=== PATIENT | female | born 1955 | race Caucasian/White ===

== ENCOUNTER 2020-03-08 22:43 | Inpatient (IN) | payer MEDICARE, OTHER ==
--- NOTE | 2020-03-08 23:05 | ED ---
SOB HPI - General Chief Complaint: Shortness of Breath Stated Complaint: ALBINO Time Seen by Provider: 03/08/20 22:46 Source: patient, EMS Mode of arrival: EMS Limitations: no limitations - History of Present Illness Initial Comments: This patient is a 65-year-old woman who presents to be evaluated for low hemoglobin. Patient states that her labs had been checked and her hemoglobin reportedly was less than 7. She received a call and was told to go to the hospital to have a transfusion. The patient states that in attempting to get up and get to the hospital she was so dyspneic that she required ambulance. The patient denies fever or chills. No chest pain. Denies significant cough. She does have increased leg edema from her baseline she states. Recent history is notable for having been at [facility] proximally 2 weeks ago and then she was noted to have GI bleeding and was transferred to [facility] for cauterization. That occurred approximately 8 days ago. The patient denies having any bright red blood per rectum. She has had some dark stool. MD Complaint: shortness of breath -: hour(s) Severity scale (1-10): 0 Consistency: constant Improves With: nothing Worsens With: lying flat, exertion Known History Of: COPD, congestive heart failure Treatments Prior to Arrival: oxygen, NIPPV - Related Data Home Medications Medication Instructions Recorded Confirmed Albuterol Inhaler [Ventolin Hfa 1 - 2 puff INHALATION RT-QID PRN 03/09/20 03/09/20 Inhaler] Albuterol Nebulized [Ventolin 2.5 mg INHALATION RT-QID PRN 03/09/20 03/09/20 Nebulized] Aspirin [[place] Aspirin EC] 81 mg PO DAILY 03/09/20 03/09/20 Atorvastatin [Lipitor] 40 mg PO DAILY 03/09/20 03/09/20 Budesonide-Formot 160-4.5 Mcg 2 puff INHALATION BID 03/09/20 03/09/20 [Symbicort 160-4.5 Mcg Inhaler] Bumetanide 2 mg PO BID 03/09/20 03/09/20 FLUoxetine HCL 20 mg PO DAILY 03/09/20 03/09/20 Glimepiride [Amaryl] 2 mg PO DAILY 03/09/20 03/09/20 Insulin Glargine,Hum.rec.anlog 50 units SQ HS 03/09/20 03/09/20 [[place] Solostar] Isosorbide Mononitrate ER [Imdur] 30 mg PO DAILY 03/09/20 03/09/20 Levothyroxine Sodium 125 mcg PO DAILY 03/09/20 03/09/20 Metoprolol Tartrate [Lopressor] 50 mg PO BID 03/09/20 03/09/20 Montelukast Sodium [Singulair] 10 mg PO HS 03/09/20 03/09/20 Nitroglycerin Sl Tabs [Nitrostat] 0.4 mg SUBLINGUAL Q5M PRN 03/09/20 03/09/20 Pantoprazole [Protonix] 40 mg PO DAILY 03/09/20 03/09/20 Potassium Chloride ER [K-Dur 10] 10 meq PO BID 03/09/20 03/09/20 Pregabalin [Lyrica] 200 mg PO BID 03/09/20 03/09/20 amLODIPine [Norvasc] 10 mg PO DAILY 03/09/20 03/09/20 methocarbamoL [Robaxin] 500 mg PO BID 03/09/20 03/09/20 rOPINIRole HCL [Requip] 2 mg PO BID 03/09/20 03/09/20 sitaGLIPtin [Januvia] 100 mg PO DAILY 03/09/20 03/09/20 Allergies Allergy/AdvReac Type Severity Reaction Status Date / Time cisatracurium [From Nimbex] Allergy Rash/Hives Verified 03/09/20 08:30 Review of Systems ROS Statement: Those systems with pertinent positive or pertinent negative responses have been documented in the HPI. ROS Other: All systems not noted in ROS Statement are negative. Constitutional: Reports: weakness (Generalized). Denies: fever, chills Respiratory: Reports: dyspnea. Denies: cough, wheezes, hemoptysis Cardiovascular: Reports: dyspnea on exertion. Denies: chest pain, palpitations, syncope Gastrointestinal: Denies: abdominal pain, nausea, vomiting, diarrhea Genitourinary: Denies: urgency, dysuria Musculoskeletal: Denies: back pain Skin: Denies: rash Neurological: Denies: headache, weakness, numbness Hematological/Lymphatic: Denies: easy bleeding Past Medical History Past Medical History: Heart Failure, GI Bleed, Respiratory Disorder History of Any Multi-Drug Resistant Organisms: None Reported Past Psychological History: No Psychological Hx Reported Smoking Status: Former smoker Past Alcohol Use History: None Reported Past Drug Use History: None Reported General Exam Limitations: no limitations General appearance: alert, in distress (Mild respiratory distress) Head exam: Present: atraumatic, normocephalic Eye exam: Present: normal appearance. Absent: scleral icterus, conjunctival injection ENT exam: Present: normal oropharynx Neck exam: Present: normal inspection, full ROM Respiratory exam: Present: respiratory distress (Mild tachypnea), rales (Bilateral lower lung phelps). Absent: wheezes, rhonchi, stridor, accessory muscle use Cardiovascular Exam: Present: regular rate, normal rhythm, systolic murmur (. There are 3/6 systolic ejection murmur.). Absent: diastolic murmur, rubs, gallop GI/Abdominal exam: Present: soft. Absent: distended, tenderness, guarding, rebound, rigid, mass Extremities exam: Present: normal capillary refill, pedal edema. Absent: calf tenderness Back exam: Present: normal inspection. Absent: CVA tenderness (R), CVA tenderness (L) Neurological exam: Present: alert Psychiatric exam: Present: normal affect Skin exam: Present: warm, dry, intact, normal color, pallor. Absent: cyanosis, diaphoretic, petechiae Course Vital Signs 03/08/20 03/08/20 03/09/20 22:44 22:56 00:38 Temperature 98.1 F 98.3 F Pulse Rate 87 75 Respiratory 26 H 26 H 20 Rate Blood Pressure 130/53 129/56 O2 Sat by Pulse 98 98 Oximetry 03/09/20 03/09/20 03/09/20 00:48 01:04 01:18 Temperature 98.0 F 98.0 F Pulse Rate 74 74 75 Respiratory 19 18 18 Rate Blood Pressure 126/58 115/54 124/58 O2 Sat by Pulse 99 97 98 Oximetry Medical Decision Making - Medical Decision Making This patient is 65-year-old woman sent in to have transfusion. There is also degree of congestive heart failure. Patient started on diuresis and then to have transfusion. - Lab Data Result diagrams: 03/09/20 13:12 03/09/20 07:06 Lab Results 03/08/20 03/08/20 03/08/20 Range/Units 23:07 23:07 23:07 WBC 12.1 H (3.8-10.6) k/uL RBC 2.29 L (3.80-5.40) m/uL Hgb 6.1 L* (11.4-16.0) gm/dL Hct 21.0 L (34.0-46.0) % MCV 91.8 (80.0-100.0) fL MCH 26.7 (25.0-35.0) pg MCHC 29.1 L (31.0-37.0) g/dL RDW 19.3 H (11.5-15.5) % Plt Count 388 (150-450) k/uL Neutrophils % 75 % Lymphocytes % 12 % Monocytes % 8 % Eosinophils % 2 % Basophils % 1 % Neutrophils # 9.0 H (1.3-7.7) k/uL Lymphocytes # 1.4 (1.0-4.8) k/uL Monocytes # 0.9 (0-1.0) k/uL Eosinophils # 0.2 (0-0.7) k/uL Basophils # 0.1 (0-0.2) k/uL Hypochromasia Marked Poikilocytosis Marked Anisocytosis Slight PT 9.6 (9.0-12.0) sec INR 0.9 (<1.2) APTT 22.3 (22.0-30.0) sec Sodium 137 (137-145) mmol/L Potassium 4.6 (3.5-5.1) mmol/L Chloride 96 L (98-107) mmol/L Carbon Dioxide 35 H (22-30) mmol/L Anion Gap 6 mmol/L BUN 25 H (7-17) mg/dL Creatinine 1.10 H (0.52-1.04) mg/dL Est GFR (CKD-EPI)AfAm 61 (>60 ml/min/1.73 sqM) Est GFR (CKD-EPI)NonAf 53 (>60 ml/min/1.73 sqM) Glucose 221 H (74-99) mg/dL Plasma Lactic Acid Itz (0.7-2.0) mmol/L Calcium 8.7 (8.4-10.2) mg/dL Magnesium 2.1 (1.6-2.3) mg/dL Total Bilirubin 0.5 (0.2-1.3) mg/dL AST 19 (14-36) U/L ALT 15 (4-34) U/L Alkaline Phosphatase 111 (38-126) U/L Troponin I (0.000-0.034) ng/mL NT-Pro-B Natriuret Pep pg/mL Total Protein 6.0 L (6.3-8.2) g/dL Albumin 3.3 L (3.5-5.0) g/dL Blood Type Blood Type Confirm Blood Type Recheck Bld Type Recheck Status Antibody Screen Crossmatch Spec Expiration Date 03/08/20 03/08/20 03/08/20 Range/Units 23:07 23:07 23:07 WBC (3.8-10.6) k/uL RBC (3.80-5.40) m/uL Hgb (11.4-16.0) gm/dL Hct (34.0-46.0) % MCV (80.0-100.0) fL MCH (25.0-35.0) pg MCHC (31.0-37.0) g/dL RDW (11.5-15.5) % Plt Count (150-450) k/uL Neutrophils % % Lymphocytes % % Monocytes % % Eosinophils % % Basophils % % Neutrophils # (1.3-7.7) k/uL Lymphocytes # (1.0-4.8) k/uL Monocytes # (0-1.0) k/uL Eosinophils # (0-0.7) k/uL Basophils # (0-0.2) k/uL Hypochromasia Poikilocytosis Anisocytosis PT (9.0-12.0) sec INR (<1.2) APTT (22.0-30.0) sec Sodium (137-145) mmol/L Potassium (3.5-5.1) mmol/L Chloride (98-107) mmol/L Carbon Dioxide (22-30) mmol/L Anion Gap mmol/L BUN (7-17) mg/dL Creatinine (0.52-1.04) mg/dL Est GFR (CKD-EPI)AfAm (>60 ml/min/1.73 sqM) Est GFR (CKD-EPI)NonAf (>60 ml/min/1.73 sqM) Glucose (74-99) mg/dL Plasma Lactic Acid Itz 1.7 (0.7-2.0) mmol/L Calcium (8.4-10.2) mg/dL Magnesium (1.6-2.3) mg/dL Total Bilirubin (0.2-1.3) mg/dL AST (14-36) U/L ALT (4-34) U/L Alkaline Phosphatase (38-126) U/L Troponin I <0.012 (0.000-0.034) ng/mL NT-Pro-B Natriuret Pep 1590 pg/mL Total Protein (6.3-8.2) g/dL Albumin (3.5-5.0) g/dL Blood Type Blood Type Confirm Blood Type Recheck Bld Type Recheck Status Antibody Screen Crossmatch Spec Expiration Date 03/08/20 03/08/20 Range/Units 23:07 23:18 WBC (3.8-10.6) k/uL RBC (3.80-5.40) m/uL Hgb (11.4-16.0) gm/dL Hct (34.0-46.0) % MCV (80.0-100.0) fL MCH (25.0-35.0) pg MCHC (31.0-37.0) g/dL RDW (11.5-15.5) % Plt Count (150-450) k/uL Neutrophils % % Lymphocytes % % Monocytes % % Eosinophils % % Basophils % % Neutrophils # (1.3-7.7) k/uL Lymphocytes # (1.0-4.8) k/uL Monocytes # (0-1.0) k/uL Eosinophils # (0-0.7) k/uL Basophils # (0-0.2) k/uL Hypochromasia Poikilocytosis Anisocytosis PT (9.0-12.0) sec INR (<1.2) APTT (22.0-30.0) sec Sodium (137-145) mmol/L Potassium (3.5-5.1) mmol/L Chloride (98-107) mmol/L Carbon Dioxide (22-30) mmol/L Anion Gap mmol/L BUN (7-17) mg/dL Creatinine (0.52-1.04) mg/dL Est GFR (CKD-EPI)AfAm (>60 ml/min/1.73 sqM) Est GFR (CKD-EPI)NonAf (>60 ml/min/1.73 sqM) Glucose (74-99) mg/dL Plasma Lactic Acid Itz (0.7-2.0) mmol/L Calcium (8.4-10.2) mg/dL Magnesium (1.6-2.3) mg/dL Total Bilirubin (0.2-1.3) mg/dL AST (14-36) U/L ALT (4-34) U/L Alkaline Phosphatase (38-126) U/L Troponin I (0.000-0.034) ng/mL NT-Pro-B Natriuret Pep pg/mL Total Protein (6.3-8.2) g/dL Albumin (3.5-5.0) g/dL Blood Type A Positive Blood Type Confirm A Positive Blood Type Recheck No Previous Record Bld Type Recheck Status CABO Indicated Antibody Screen NEGATIVE Crossmatch See Detail Spec Expiration Date 03/11/2020 4927 - EKG Data -: EKG Interpreted by Me EKG shows normal: sinus rhythm, axis (Normal), intervals (Normal), QRS complexes (Normal) Rate: normal (Rate 81 bpm) Interpretation: nonspecific ST-T wave changes Critical Care Time Critical Care Time: Yes (35 minutes) Disposition Clinical Impression: Congestive heart failure, Anemia Disposition: ADMITTED IP TO THIS [facility] Condition: Fair
[2020-03-08 23:32] LABS: Albumin 3.3 g/dL (3.5-5.0); Calcium 8.7 mg/dL (8.4-10.2); Magnesium 2.1 mg/dL (1.6-2.3); Potassium 4.6 mmol/L (3.5-5.1); Total Bilirubin 0.5 mg/dL (0.2-1.3)
[2020-03-08 23:33] LABS: Anisocytosis Slight; Basophils # (A) 0.1 k/uL (0-0.2); Basophils % (A) 1 %; Eosinophils # (A) 0.2 k/uL (0-0.7); Eosinophils % (A) 2 %; Hypochromasia Marked; Lymphocytes # (A) 1.4 k/uL (1.0-4.8); Lymphocytes % (A) 12 %; MCH 26.7 pg (25.0-35.0); MCHC 29.1 g/dL (31.0-37.0); MCV 91.8 fL (80.0-100.0); Mean Platelet Volume 8.4; Monocytes # (A) 0.9 k/uL (0-1.0); Monocytes % (A) 8 %; Neutrophils % (A) 75 %; Platelet Count 388 k/uL (150-450); Poikilocytosis Marked; RBC 2.29 m/uL (3.80-5.40); RDW 19.3 % (11.5-15.5); WBC 12.1 k/uL (3.8-10.6)
[2020-03-08 23:34] LABS: HGB 6.1 gm/dL (11.4-16.0)
[2020-03-08 23:39] LABS: INR 0.9 (<1.2); Partial Thromboplastin Time 22.3 sec (22.0-30.0); Prothrombin Time 9.6 sec (9.0-12.0)
--- NOTE | 2020-03-09 00:10 | XR ---
EXAMINATION TYPE: XR chest 1V portable DATE OF EXAM: 03/08/2020 COMPARISON: NONE HISTORY: Short of breath TECHNIQUE: Single view FINDINGS: There is pulmonary vascular congestion. Heart is enlarged. There are chest leads. There is no definite pleural effusion. IMPRESSION: There is evidence of congestive heart failure. Atheromatous aorta.
[2020-03-09] MEDS ORDERED: FUROSEMIDE 10 MG/ML 4 ML VIAL IV STA ×2 (00:12→15:46)
[2020-03-09] MEDS ORDERED: NALOXONE 0.4 MG/ML 1 ML VIAL IV PRN (00:22)
[2020-03-09] MEDS: SODIUM CHLORIDE 0.9% 1,000 ML IV SCH (05:23)
[2020-03-09 07:02] LABS: Glucose,Whole Blood 198 mg/dL (75-99)
[2020-03-09 07:52] LABS: Anisocytosis Slight; Basophils # (A) 0.1 k/uL (0-0.2); Basophils % (A) 1 %; Eosinophils # (A) 0.3 k/uL (0-0.7); Eosinophils % (A) 3 %; HCT 23.4 % (34.0-46.0); Hypochromasia Marked; Lymphocytes # (A) 1.5 k/uL (1.0-4.8); Lymphocytes % (A) 14 %; MCH 26.7 pg (25.0-35.0); MCHC 28.6 g/dL (31.0-37.0); MCV 93.6 fL (80.0-100.0); Mean Platelet Volume 7.3; Monocytes % (A) 9 %; Neutrophils # (A) 7.6 k/uL (1.3-7.7); Neutrophils % (A) 71 %; Platelet Count 347 k/uL (150-450); Poikilocytosis Marked; RDW 17.8 % (11.5-15.5); WBC 10.8 k/uL (3.8-10.6)
[2020-03-09 08:01] LABS: Albumin 3.2 g/dL (3.5-5.0); Calcium 8.4 mg/dL (8.4-10.2); Potassium 4.2 mmol/L (3.5-5.1); Total Bilirubin 0.5 mg/dL (0.2-1.3); Total Protein 5.8 g/dL (6.3-8.2)
[2020-03-09 08:03] LABS: HGB 6.7 gm/dL (11.4-16.0)
[2020-03-09] MEDS ORDERED: NITROGLYCERIN SL TABS 0.4 MG TAB SUBLINGUAL PRN (09:14)
[2020-03-09] MEDS: ISOSORBIDE MONONITRATE ER 30 MG TAB.ER.24H PO SCH (10:21)
[2020-03-09] MEDS: amLODIPine 10 MG TAB PO SCH (10:21)
[2020-03-09] MEDS: PANTOPRAZOLE 40 MG/10 ML VIAL IVP SCH ×2 (10:54→20:58)
[2020-03-09 11:27] LABS: Glucose,Whole Blood 283 mg/dL (75-99)
--- NOTE | 2020-03-09 11:33 | P.HPIM ---
History of Present Illness H&P Date: 03/09/20 HISTORY OF PRESENT ILLNESS This is a 65-year-old female patient of Dr. Deras with past medical history of diabetes mellitus type 2, diabetic neuropathy, COPD, hypertension, obstructive sleep apnea, hypothyroidism. Patient has had ongoing problems with GI bleed and was seen by Dr. Nieves GI physician and [facility]. She had a capsule endoscopy at the office and found ulcers. Patient underwent an EGD and could not get to all of the ulcers and patient was then transferred to [place] for repeat EGD. This will could not be completed at [place] and patient was subsequen tly transferred [facility] and she did have some cauterization done and was discharged home. Unfortunately, patient is continued to have black stools which is actually increased in frequency. She also has had increased shortness of breath, orthopnea and cough. No fever or chills, no chest pain. She utilized BiPAP last night which seemed to help her shortness of breath. Patient presented to [facility] emergency center as she was sent in because her hemoglobin was less than 7 as an outpatient and she required transfusion. She was afebrile, heart rate 87, blood pressure 130/54 pulse ox 98% on room air. Initial hemoglobin 6.1 and patient has been transfused 1 unit of packed RBCs. Repeat hemoglobin this morning is 6.7 and a second unit of packed RBCs has been ordered. Other lab work revealed WBC of 12.1. CO2 35, BUN 25 and creatinine 1.1, blood sugar 221. She has unknown hemoglobin A1c of 5.2 in the outpatient setting. Lactic acid 1.7, troponin negative. ProBNP 1590. Chest x-ray revealed evidence of heart failure. Atheromatosis aorta. EKG sinus rhythm. REVIEW OF SYSTEMS Constitutional: No fever, no chills, no night sweats. No weight change. Reports weakness, Reports fatigue. No daytime sleepiness. EENT: No headache. No blurred vision or double vision, no loss of vision. No loss of Hearing, no ringing in the ears, no dizziness. No nasal drainage or congestion. No epistaxis. No sore throat. Lungs: Reports shortness of breath, no cough, no sputum production. No wheezing. Cardiovascular: No chest pain, reports lower extremity edema. No palpitations. No paroxysmal nocturnal dyspnea. No orthopnea. No lightheadedness or dizziness. No syncopal episodes. Abdominal: No abdominal pain. No nausea, vomiting. No diarrhea. No constipation. Reports bloody or tarry stools. Reports loss of appetite. Genitourinary: No dysuria, increased frequency, urgency. No urinary retention. Musculoskeletal: No myalgias. Reports muscle weakness, no gait dysfunction, no frequent falls. No back pain. No neck pain. Integumentary: No wounds, no lesions. No rash or pruritus. No unusual bruising. No change in hair or nails. Neurologic: No aphasia. No facial droop. No change in mentation. No head injury. No headache. No paralysis. No paresthesia. Psychiatric: No depression. No anxiety. No mood swings. Endocrine: No abnormal blood sugars. No weight change. No excessive sweating or thirst. No cold intolerance. SOCIAL HISTORY Patient was a smoker one pack per day for 30-40 years and quit 6 years ago. She did resume smoking 2 years ago and quit 2-1/2 months ago. No alcohol, marijuana or illicit drug use. Patient does not have oxygen at home. Patient does have a BiPAP at home for obstructive sleep apnea and also nebulizer FAMILY HISTORY Mother at age 60 from kidney failure. Father at age 84 from leukemia. Patient has 4 sisters and one has passed from coronary artery disease. Other sisters and 2 brothers have no major medical problems. Patient has 3 children with no major medical problems. PHYSICAL EXAMINATION Gen: This is a 65-year-old female. She is resting and recliner and appears to be comfortable at rest. HEENT: Head is atraumatic, normocephalic. Pupils equal, round. Sclerae is an icteric. Conjunctiva pale. NECK: Supple. No JVD. No lymphadenopathy. No thyromegaly. LUNGS: Clear to auscultation. No wheezes or rhonchi. No intercostal retractions. HEART: Regular rate and rhythm. Systolic murmur. ABDOMEN: Soft. Bowel sounds are present. No masses. No tenderness. EXTREMITIES: 1+ pedal edema. No calf tenderness. Dorsalis pedis +2 bilaterally. NEUROLOGICAL: Patient is awake, alert and oriented x3. Cranial nerves 2 through 12 are grossly intact. ASSESSMENT AND PLAN 1. Acute on chronic GI bleed with acute blood loss anemia. Patient has been t ransfused 1 unit of packed RBCs last evening and a second unit will be added for today. Consult with GI. Protonix 40 mg IV push twice daily added. 2. Diabetes mellitus type 2 with diabetic neuropathy. Patient will be started on half Levemir 25 units at bedtime with anticipation of possible procedure tomorrow. Glimepiride 2 mg daily on hold. Continue NovoLog scale, Tradjenta. 3. Diabetic neuropathy. Continue Lyrica. 4. COPD. Continue Symbicort, albuterol as needed, Singulair 10 mg at bedtime. 5. Hypertension. Continue Norvasc 10 mg daily, Bumex 2 mg twice daily, Lopressor 50 g twice daily. 6. Possible chronic diastolic heart failure. Continue Lopressor, Bumex. 7. Hyperlipidemia. Continue Lipitor 40 mg daily. 8. Obstructive sleep apnea. Continue BiPAP at night. 9. Restless leg syndrome. Continue Requip 2 mg twice daily. 10. Recurrent depression. Continue Prozac 20 mg daily. 11. GI prophylaxis. Protonix. 12. DVT prophylaxis. SCDs and FILEMON hose. Patient will be admitted to the hospital for a minimum of 2 night stay. Discharge plan: Most likely with homecare. Impression and plan of care have been directed as dictated by the signing physician. Clarice Colón nurse practitioner acting as scribe for signing physician. Past Medical History Past Medical History: Atrial Fibrillation, Heart Failure, COPD, Diabetes Mellitus, GI Bleed, Hypertension, Myocardial Infarction ([place]), Osteoarthritis (OA), Pneumonia, Respiratory Disorder, Thyroid Disorder Additional Past Medical History / Comment(s): heart murmur, neuropathy Last Myocardial Infarction Date:: 2018 History of Any Multi-Drug Resistant Organisms: ESBL Date of last positivie culture/infection: 04/2019 MDRO Source:: URINE Past Surgical History: Section, Cholecystectomy, Heart Catheterization, Hysterectomy, Orthopedic Surgery Additional Past Surgical History / Comment(s): Gi cauterization 02/22/2020; heart cath 12/26/2019; cataracts removal, lens placement. Past Anesthesia/Blood Transfusion Reactions: Previous Problems w/ Anesthesia Additional Past Anesthesia/Blood Transfusion Reaction / Comment(s): ALLERGY TO CISATRACURIUM- FACE TURNED RED/SWOLLEN Past Psychological History: Anxiety Smoking Status: Former smoker Past Alcohol Use History: None Reported Past Drug Use History: None Reported Medications and Allergies Home Medications Medication Instructions Recorded Confirmed Type Albuterol Inhaler [Ventolin Hfa 1 - 2 puff INHALATION RT-QID PRN 03/09/20 03/09/20 History Inhaler] Albuterol Nebulized [Ventolin 2.5 mg INHALATION RT-QID PRN 03/09/20 03/09/20 History Nebulized] Aspirin [[place] Aspirin EC] 81 mg PO DAILY 03/09/20 03/09/20 History Atorvastatin [Lipitor] 40 mg PO DAILY 03/09/20 03/09/20 History Budesonide-Formot 160-4.5 Mcg 2 puff INHALATION BID 03/09/20 03/09/20 History [Symbicort 160-4.5 Mcg Inhaler] Bumetanide 2 mg PO BID 03/09/20 03/09/20 History FLUoxetine HCL 20 mg PO DAILY 03/09/20 03/09/20 History Glimepiride [Amaryl] 2 mg PO DAILY 03/09/20 03/09/20 History Insulin Glargine,Hum.rec.anlog 50 units SQ HS 03/09/20 03/09/20 History [[place] Solostar] Isosorbide Mononitrate ER [Imdur] 30 mg PO DAILY 03/09/20 03/09/20 History Levothyroxine Sodium 125 mcg PO DAILY 03/09/20 03/09/20 History Metoprolol Tartrate [Lopressor] 50 mg PO BID 03/09/20 03/09/20 History Montelukast Sodium [Singulair] 10 mg PO HS 03/09/20 03/09/20 History Nitroglycerin Sl Tabs [Nitrostat] 0.4 mg SUBLINGUAL Q5M PRN 03/09/20 03/09/20 History Pantoprazole [Protonix] 40 mg PO DAILY 03/09/20 03/09/20 History Potassium Chloride ER [K-Dur 10] 10 meq PO BID 03/09/20 03/09/20 History Pregabalin [Lyrica] 200 mg PO BID 03/09/20 03/09/20 History amLODIPine [Norvasc] 10 mg PO DAILY 03/09/20 03/09/20 History methocarbamoL [Robaxin] 500 mg PO BID 03/09/20 03/09/20 History rOPINIRole HCL [Requip] 2 mg PO BID 03/09/20 03/09/20 History sitaGLIPtin [Januvia] 100 mg PO DAILY 03/09/20 03/09/20 History Allergies Allergy/AdvReac Type Severity Reaction Status Date / Time cisatracurium [From Nimbex] Allergy Rash/Hives Verified 03/09/20 08:30 Physical Exam Vitals: Vital Signs Temp Pulse Pulse Pulse Resp BP BP 03/09/20 07:00 97.5 F L 76 18 120/61 03/09/20 03:41 98.0 F 70 18 118/66 03/09/20 03:10 80 20 03/09/20 01:52 98.4 F 70 16 133/76 03/09/20 01:36 97.8 F 77 18 124/66 03/09/20 01:18 98.0 F 75 18 124/58 03/09/20 01:04 74 18 115/54 03/09/20 00:48 98.0 F 74 19 126/58 03/09/20 00:38 98.3 F 75 20 129/56 03/08/20 22:56 26 H 03/08/20 22:44 98.1 F 87 26 H 130/53 Pulse Ox 03/09/20 07:00 93 L 03/09/20 03:41 98 03/09/20 03:10 03/09/20 01:52 95 03/09/20 01:36 96 03/09/20 01:18 98 03/09/20 01:04 97 03/09/20 00:48 99 03/09/20 00:38 98 03/08/20 22:56 03/08/20 22:44 98 Intake and Output 03/08/20 03/09/20 03/09/20 22:59 06:59 14:59 Intake Total 310 Output Total 400 200 Balance -90 -200 Intake: Blood Product 310 Rc As-1 Unit 310 [id number] Output: Urine 400 200 Other: Voiding Method Bedside Commode Bedside Commode # Voids 1 Weight 113.398 kg 93 kg Results CBC & Chem 7: 03/09/20 07:06 03/09/20 07:06 Labs: Abnormal Lab Results - Last 24 Hours (Table) 03/08/20 03/08/20 03/08/20 Range/Units 23:07 23:07 23:07 WBC 12.1 H (3.8-10.6) k/uL RBC 2.29 L (3.80-5.40) m/uL Hgb 6.1 L* (11.4-16.0) gm/dL Hct 21.0 L (34.0-46.0) % MCHC 29.1 L (31.0-37.0) g/dL RDW 19.3 H (11.5-15.5) % Neutrophils # 9.0 H (1.3-7.7) k/uL Chloride 96 L (98-107) mmol/L Carbon Dioxide 35 H (22-30) mmol/L BUN 25 H (7-17) mg/dL Creatinine 1.10 H (0.52-1.04) mg/dL Glucose 221 H (74-99) mg/dL POC Glucose (mg/dL) (75-99) mg/dL Total Protein 6.0 L (6.3-8.2) g/dL Albumin 3.3 L (3.5-5.0) g/dL Crossmatch See Detail 03/09/20 03/09/20 03/09/20 Range/Units 07:00 07:06 07:06 WBC 10.8 H (3.8-10.6) k/uL RBC 2.50 L (3.80-5.40) m/uL Hgb 6.7 L* (11.4-16.0) gm/dL Hct 23.4 L (34.0-46.0) % MCHC 28.6 L (31.0-37.0) g/dL RDW 17.8 H (11.5-15.5) % Neutrophils # (1.3-7.7) k/uL Chloride (98-107) mmol/L Carbon Dioxide 37 H (22-30) mmol/L BUN 24 H (7-17) mg/dL Creatinine (0.52-1.04) mg/dL Glucose 171 H (74-99) mg/dL POC Glucose (mg/dL) 198 H (75-99) mg/dL Total Protein 5.8 L (6.3-8.2) g/dL Albumin 3.2 L (3.5-5.0) g/dL Crossmatch Thrombosis Risk Factor Assmnt - Choose All That Apply Each Factor Represents 1 point: Abnormal pulmonary function (COPD) Each Risk Factor Represents 2 Points: Age 61-74 years Thrombosis Risk Factor Assessment Total Risk Factor Score: 3 Thrombosis Risk Factor Assessment Level: Moderate Risk
[2020-03-09] MEDS: INSULIN ASPART (NovoLOG) 100 UNIT/ML VIAL SQ SCH ×3 (11:35→20:59)
[2020-03-09 13:30] LABS: Anisocytosis Slight; HGB 7.6 gm/dL (11.4-16.0); Hypochromasia Marked; MCH 26.7 pg (25.0-35.0); MCHC 29.4 g/dL (31.0-37.0); MCV 90.8 fL (80.0-100.0); Mean Platelet Volume 8.6; Platelet Count 349 k/uL (150-450); Poikilocytosis Marked; RBC 2.87 m/uL (3.80-5.40); WBC 12.3 k/uL (3.8-10.6)
[2020-03-09 16:22] LABS: Glucose,Whole Blood 267 mg/dL (75-99)
[2020-03-09] MEDS: SYMBICORT 160-4.5 MCG INHALER INHALATION SCH (19:54)
[2020-03-09] MEDS: ALBUTEROL NEBULIZED 2.5 MG/3 ML INHALATION PRN (19:54)
[2020-03-09 20:44] LABS: Glucose,Whole Blood 291 mg/dL (75-99)
[2020-03-09] MEDS: PREGABALIN 100 MG CAP PO SCH (20:59)
[2020-03-09] MEDS: INSULIN DETEMIR (LEVEMIR) 100 UNIT/ML SYR SQ SCH (20:59)
[2020-03-09] MEDS: MONTELUKAST 10 MG TAB PO SCH (21:00)
[2020-03-09] MEDS: METOPROLOL TARTRATE 50 MG TAB PO SCH (21:00)
[2020-03-09] MEDS: POTASSIUM CHLORIDE ER 10 MEQ TAB.ER.PRT PO SCH (21:00)
[2020-03-09] MEDS: methocarbamoL 500 MG TAB PO SCH (21:00)
[2020-03-09] MEDS: BUMETANIDE 1 MG TAB PO SCH (21:00)
[2020-03-09] MEDS ORDERED: diphenhydrAMINE 25 MG CAP PO PRN (23:06)
[2020-03-10] MEDS: SODIUM CHLORIDE 0.9% 1,000 ML IV SCH ×2 (01:48→23:45)
[2020-03-10] MEDS: LEVOTHYROXINE 125 MCG TAB PO SCH (05:31)
[2020-03-10 06:53] LABS: Glucose,Whole Blood 109 mg/dL (75-99)
[2020-03-10] MEDS: INSULIN ASPART (NovoLOG) 100 UNIT/ML VIAL SQ SCH ×4 (07:00→20:40)
[2020-03-10] MEDS: METOPROLOL TARTRATE 50 MG TAB PO SCH ×2 (08:04→20:40)
[2020-03-10] MEDS: ISOSORBIDE MONONITRATE ER 30 MG TAB.ER.24H PO SCH (08:04)
[2020-03-10] MEDS: LINAGLIPTIN 5 MG TABLET PO SCH (08:04)
[2020-03-10] MEDS: amLODIPine 10 MG TAB PO SCH (08:04)
[2020-03-10] MEDS: PREGABALIN 100 MG CAP PO SCH ×2 (08:05→20:41)
[2020-03-10] MEDS: PANTOPRAZOLE 40 MG/10 ML VIAL IVP SCH ×2 (08:05→20:41)
[2020-03-10] MEDS: FLUoxetine HCL 20 MG CAP PO SCH (08:05)
[2020-03-10] MEDS: POTASSIUM CHLORIDE ER 10 MEQ TAB.ER.PRT PO SCH ×2 (08:05→20:41)
[2020-03-10] MEDS: ATORVASTATIN 40 MG TAB PO SCH (08:05)
[2020-03-10] MEDS: methocarbamoL 500 MG TAB PO SCH ×2 (08:21→20:47)
[2020-03-10] MEDS: BUMETANIDE 1 MG TAB PO SCH ×2 (08:21→20:40)
[2020-03-10] MEDS: ALBUTEROL NEBULIZED 2.5 MG/3 ML INHALATION PRN ×4 (09:05→19:58)
[2020-03-10] MEDS: SYMBICORT 160-4.5 MCG INHALER INHALATION SCH ×2 (09:05→19:53)
[2020-03-10 09:41] LABS: ALT 15 U/L (4-34); AST 21 U/L (14-36); African American GFR (CKD) >90 (>60 ml/min/1.73 sqM); Albumin 3.2 g/dL (3.5-5.0); Alkaline Phosphatase 107 U/L (38-126); Blood Urea Nitrogen 17 mg/dL (7-17); Calcium 8.3 mg/dL (8.4-10.2); Chloride 96 mmol/L (98-107); Glucose 96 mg/dL (74-99); Non-African American GFR(CKD) 80 (>60 ml/min/1.73 sqM); Potassium 3.9 mmol/L (3.5-5.1); Sodium 139 mmol/L (137-145); Total Bilirubin 0.6 mg/dL (0.2-1.3)
[2020-03-10 09:47] LABS: Anion Gap 2 mmol/L
[2020-03-10 09:54] LABS: Carbon Dioxide 41 mmol/L (22-30)
[2020-03-10] MEDS: polyethylene glycoL 3350 17 GM POWD.PACK PO SCH (09:54)
[2020-03-10] MEDS: SENNOSIDES-DOCUSATE SODIUM 1 EACH TAB PO SCH ×2 (09:55→20:41)
[2020-03-10 10:09] LABS: Anisocytosis Slight; Basophils # (A) 0.1 k/uL (0-0.2); Basophils % (A) 1 %; Eosinophils # (A) 0.4 k/uL (0-0.7); Eosinophils % (A) 3 %; HCT 27.9 % (34.0-46.0); HGB 8.1 gm/dL (11.4-16.0); Hypochromasia Marked; Lymphocytes # (A) 1.4 k/uL (1.0-4.8); Lymphocytes % (A) 12 %; MCH 26.3 pg (25.0-35.0); MCHC 29.1 g/dL (31.0-37.0); MCV 90.4 fL (80.0-100.0); Mean Platelet Volume 8.5; Monocytes % (A) 9 %; Neutrophils # (A) 8.1 k/uL (1.3-7.7); Neutrophils % (A) 72 %; Platelet Count 330 k/uL (150-450); Poikilocytosis Marked; RBC 3.09 m/uL (3.80-5.40); RDW 18.4 % (11.5-15.5); WBC 11.3 k/uL (3.8-10.6)
--- NOTE | 2020-03-10 10:09 | P.PN ---
Subjective Progress Note Date: 03/10/20 80-year-old female with past medical history of myasthenia gravis, hypertension and hyperlipidemia who is known to have history of arrhythmia apparently fell coming out of the shower at home ended up coming by ambulance to the emergency department on Route her pulse rate was running in A. fib with RVR. 170 beats per minutes patient EKG at arrival was in A. fib and ended up become a flutter still running of 100 5270 beats per minutes. Patient was started Cardizem drip and heparin drip had elevated lactic acid with no sign of infection also had significant elevated white blood cell. Patient was giving 1 dose of Rocephin awaiting for final culture and further blood work decide on further management on infection. Also be seeing cardiology, echocardiogram was done fast reported significant cardiomyopathy with ejection fraction of 20-25 percentile only patient is not quite sure if she had any previous history of event or not. 03/09: Patient is feeling slightly better today no more syncope she still slightly tachycardic but pulse rates under control on Cardizem, patient remain on anticoagulation at this point. Her leukocytosis was driven mostly by the steroid has been using for the last 10 days and will continue at 40 mg 3 times a day to subside her symptom of the severity of myasthenia gravis with a right- sided weakness agreed by her neurologist. Talking patient about invasive testing and study she has statement of DO NOT RESUSCITATE does not wish to go for heart cath the event happened yesterday most likely was an acute NH was V. tach causing her to have syncope and the complication happen afterward. We'll continue medical management titrate physical activity with help patient wishes this point when she is ready to be discharged home with family. 03/10: Patient evaluated today on morning rounds, noted to be sitting in recliner chair. She reports she is feeling better and denies any dizziness or any more syncopal episodes, still has complaints of generalized weakness. Heart rate is well controlled and running in the 70s, still on same dose of Cardizem. Continues to have mild leukocytosis secondary from steroids from the myasthenia gravis. Thyroid noted to be very suppressed, TSH less than 0.015, free T4 2 0.53, levothyroxine was decreased to 125 g daily, will need repeat lab work in 2 weeks. Vital signs remain stable, blood pressure 108 and 67, heart rate 76, respiratory rate 18, 98% on 3 L nasal cannula. Objective - Vital Signs Vital signs: Vital Signs Temp 97.0 F L 03/10/20 07:00 Pulse 90 03/10/20 09:19 Resp 17 03/10/20 08:00 BP 103/46 03/10/20 07:00 Pulse Ox 94 L 03/10/20 07:00 Intake & Output 03/09/20 03/10/20 03/10/20 18:59 06:59 18:59 Intake Total 620 Output Total 200 Balance 420 Weight 92.8 kg Intake: Blood Product 620 Rc As-1 Unit 310 [id number] Rc As-1 Unit 310 [id number] Output: Urine 200 Other: Voiding Method Bedside Commode Bedside Commode Bedside Commode # Voids 2 1 - Exam CONSTITUTIONAL: Well-developed no acute respiratory distress. Mildly overweight and blind EYES: No icterus sclerae, no conjunctivitis. Mild ptosis EARS, NOSE, MOUTH, THROAT, and FACE: No sore throat, lymphadenopathy, carotid bruits or deformity. RESPIRATORY: Mild shortness of breath no cough or wheezes. CARDIOVASCULAR: Positive PND orthopnea palpitations and mild edema. GASTROINTESTINAL: No Abd pain, Nausea or vomiting, no Diarrhea or constipation, No GI Bleed, no distention or masses. GENITOURINARY: Negative for Hematuria or UTI, no kidney stones. INTEGUMENT/BREAST: Negative for any muscular injury with mild osteoarthritis.. HEMATOLOGIC/LYMPHATIC: Negative for bleed or purpura. MUSCULOSKELTAL: She lies muscle and joint pain. NEURLOGICAL: No LOC, seizure or syncope, blurred vision dizziness or abnormality.. BEHAVIORAL/PSYCH: Negative. ENDOCRINE: Negative. - Labs CBC & Chem 7: 03/09/20 13:12 03/10/20 08:50 Labs: Abnormal Lab Results - Last 24 Hours (Table) 03/08/20 03/09/20 03/09/20 Range/Units 23:07 11:26 13:12 WBC 12.3 H (3.8-10.6) k/uL RBC 2.87 L (3.80-5.40) m/uL Hgb 7.6 L (11.4-16.0) gm/dL Hct 26.0 L (34.0-46.0) % MCHC 29.4 L (31.0-37.0) g/dL RDW 19.0 H (11.5-15.5) % Chloride (98-107) mmol/L Carbon Dioxide (22-30) mmol/L POC Glucose (mg/dL) 283 H (75-99) mg/dL Calcium (8.4-10.2) mg/dL Total Protein (6.3-8.2) g/dL Albumin (3.5-5.0) g/dL Crossmatch See Detail 03/09/20 03/09/20 03/10/20 Range/Units 16:21 20:42 06:52 WBC (3.8-10.6) k/uL RBC (3.80-5.40) m/uL Hgb (11.4-16.0) gm/dL Hct (34.0-46.0) % MCHC (31.0-37.0) g/dL RDW (11.5-15.5) % Chloride (98-107) mmol/L Carbon Dioxide (22-30) mmol/L POC Glucose (mg/dL) 267 H 291 H 109 H (75-99) mg/dL Calcium (8.4-10.2) mg/dL Total Protein (6.3-8.2) g/dL Albumin (3.5-5.0) g/dL Crossmatch 03/10/20 Range/Units 08:50 WBC (3.8-10.6) k/uL RBC (3.80-5.40) m/uL Hgb (11.4-16.0) gm/dL Hct (34.0-46.0) % MCHC (31.0-37.0) g/dL RDW (11.5-15.5) % Chloride 96 L (98-107) mmol/L Carbon Dioxide 41 H* (22-30) mmol/L POC Glucose (mg/dL) (75-99) mg/dL Calcium 8.3 L (8.4-10.2) mg/dL Total Protein 6.0 L (6.3-8.2) g/dL Albumin 3.2 L (3.5-5.0) g/dL Crossmatch Assessment and Plan Plan: 1 acute syncopal episode: Not a clear etiology could be cardiac either from arrhythmia or non-ST NH causing V. tach or V. fib was not diagnosis of the time patient need to be watch carefully will be seeing cardiology and longer term heart monitor be done. 2 A. fib with RVR: Patient is to continue on heparin drip at this point and still on beta iar and Cardizem drip. 3 non-ST NH: With significantly elevated troponin with no current chest pain continue CK with troponin 3 echocardiogram and further testing by cardiology not clear whether patient can go for invasive heart cath or not this point. 4 severe cardiomyopathy: With ejection fraction of 20% only patient will require significant change of medication continue and titrate if can metoprolol and losartan especially the blood pressure will allow us. Continue diuretics as well. 5 severe leukocytosis and high lactic acid: No sign of infection at this point blood culture and urine culture were done 1 dose of Rocephin was giving continue hydration repeat lactic acid. White blood cell could be reaction to steroid, according to patient was in the hospital at [facility] 2 weeks ago and with the aggressiveness of her myasthenia gravis with right-sided weakness she was started on very high dose of steroid at 60 mg 3 times a day and she is down to 40 mg 3 times a day which most likely the explanation to the severe leukocytosis. If culture is negative no need to continue Rocephin for more than 48 hours 6 hypothyroidis : Patient is on large dose of levothyroxine at 200 g daily will repeat TSH and free T4. Result came back with significantly elevated free T4 which most likely from overdose on levothyroxine dose will be decreased down to 125 g daily for now and repeat TSH free T4 in 2 weeks. 7 lactic acidosis: Still try to exclude any infection continue hydration fluid support and antibiotic for now. 8 myasthenia gravis: Patient to continue steroid continue Mestinon for now. 9 severe GERD: Has been on omeprazole continue medication. 10 chronic pain syndrome: Has been on hydrocodone as needed. 12 hypertension: Well controlled on losartan and metoprolol. The above impression and plan of care have been discussed and directed by signing physician. Tea Rogers nurse practitioner acting as scribe for signing physician.
[2020-03-10 10:21] LABS: Polychromasia Present
--- NOTE | 2020-03-10 10:45 | P.PN ---
Subjective This is a 65-year-old female patient of Dr. Deras with past medical history of diabetes mellitus type 2, diabetic neuropathy, COPD, hypertension, obstructive sleep apnea, hypothyroidism. Patient has had ongoing problems with GI bleed and was seen by Dr. Nieves GI physician and [place]. She had a capsule endoscopy at the office and found ulcers. Patient underwent an EGD and could not get to all of the ulcers and patient was then transferred to [place] for repeat EGD. This will could not be completed at [place] and patient was subsequently transferred [facility] and she did have some cauterization done and was discharged home. Unfortunately, patient is continued to have black stools which is actually increased in frequency. She also has had increased shortness of breath, orthopnea and cough. No fever or chills, no chest pain. She utilized BiPAP last night which seemed to help her shortness of breath. Patient presented to [facility] emergency center as she was sent in because her hemoglobin was less than 7 as an outpatient and she required transfusion. She was afebrile, heart rate 87, blood pressure 130/54 pulse ox 98% on room air. Initial hemoglobin 6.1 and patient has been transfused 1 unit of packed RBCs. Repeat hemoglobin this morning is 6.7 and a second unit of packed RBCs has been ordered. Other lab work revealed WBC of 12.1. CO2 35, BUN 25 and creatinine 1.1, blood sugar 221. She has unknown hemoglobin A1c of 5.2 in the outpatient setting. Lactic acid 1.7, troponin negative. ProBNP 1590. Chest x-ray revealed evidence of heart failure. Atheromatosis aorta. EKG sinus rhythm. 03/10: Patient evaluated this morning, sitting up in bed. She received a total of 3 packed RBCs, repeat hemoglobin 8.1, hematocrit 27.9. Other lab work shows WBC 1.3, CO2 41, BUN 17, creatinine 0.78, blood sugar 109. She still has complaints of shortness of breath with exertion. Vital signs are stable, she is afebrile temp 97.0, heart rate 73, respiratory 17, blood pressure 103/76. GI on consult. Objective - Vital Signs Vital signs: Vital Signs Temp 97.0 F L 03/10/20 07:00 Pulse 90 03/10/20 09:19 Resp 17 09/14/20 08:00 BP 103/46 03/10/20 07:00 Pulse Ox 94 L 03/10/20 07:00 Intake & Output 03/09/20 03/10/20 03/10/20 18:59 06:59 18:59 Intake Total 620 Output Total 200 Balance 420 Weight 92.8 kg Intake: Blood Product 620 Rc As-1 Unit 310 [id number] Rc As-1 Unit 310 [id number] Output: Urine 200 Other: Voiding Method Bedside Commode Bedside Commode Bedside Commode # Voids 2 1 - Exam Constitutional: No fever, no chills, no night sweats. No weight change. Re ports weakness, Reports fatigue. No daytime sleepiness. EENT: No headache. No blurred vision or double vision, no loss of vision. No loss of Hearing, no ringing in the ears, no dizziness. No nasal drainage or congestion. No epistaxis. No sore throat. Lungs: Reports shortness of breath, no cough, no sputum production. No wheezing. Cardiovascular: No chest pain, reports lower extremity edema. No palpitations. No paroxysmal nocturnal dyspnea. No orthopnea. No lightheadedness or dizziness . No syncopal episodes. Abdominal: No abdominal pain. No nausea, vomiting. No diarrhea. No const ipation. Reports bloody or tarry stools. Reports loss of appetite. Genitourinary: No dysuria, increased frequency, urgency. No urinary retention. Musculoskeletal: No myalgias. Reports muscle weakness, no gait dysfunction, no frequent falls. No back pain. No neck pain. Integumentary: No wounds, no lesions. No rash or pruritus. No unusual bruising. No change in hair or nails. Neurologic: No aphasia. No facial droop. No change in mentation. No head injury. No headache. No paralysis. No paresthesia. Psychiatric: No depression. No anxiety. No mood swings. Endocrine: No abnormal blood sugars. No weight change. No excessive sweating or thirst. No cold intolerance. - Labs CBC & Chem 7: 03/10/20 08:50 03/10/20 08:50 Labs: Abnormal Lab Results - Last 24 Hours (Table) 03/08/20 03/09/20 03/09/20 Range/Units 23:07 11:26 13:12 WBC 12.3 H (3.8-10.6) k/uL RBC 2.87 L (3.80-5.40) m/uL Hgb 7.6 L (11.4-16.0) gm/dL Hct 26.0 L (34.0-46.0) % MCHC 29.4 L (31.0-37.0) g/dL RDW 19.0 H (11.5-15.5) % Neutrophils # (1.3-7.7) k/uL Chloride (98-107) mmol/L Carbon Dioxide (22-30) mmol/L POC Glucose (mg/dL) 283 H (75-99) mg/dL Calcium (8.4-10.2) mg/dL Total Protein (6.3-8.2) g/dL Albumin (3.5-5.0) g/dL Stool Occult Blood (Negative) Crossmatch See Detail 03/09/20 03/09/20 03/10/20 Range/Units 16:21 20:42 06:52 WBC (3.8-10.6) k/uL RBC (3.80-5.40) m/uL Hgb (11.4-16.0) gm/dL Hct (34.0-46.0) % MCHC (31.0-37.0) g/dL RDW (11.5-15.5) % Neutrophils # (1.3-7.7) k/uL Chloride (98-107) mmol/L Carbon Dioxide (22-30) mmol/L POC Glucose (mg/dL) 267 H 291 H 109 H (75-99) mg/dL Calcium (8.4-10.2) mg/dL Total Protein (6.3-8.2) g/dL Albumin (3.5-5.0) g/dL Stool Occult Blood (Negative) Crossmatch 03/10/20 03/10/20 03/10/20 Range/Units 08:50 08:50 09:49 WBC 11.3 H (3.8-10.6) k/uL RBC 3.09 L (3.80-5.40) m/uL Hgb 8.1 L (11.4-16.0) gm/dL Hct 27.9 L (34.0-46.0) % MCHC 29.1 L (31.0-37.0) g/dL RDW 18.4 H (11.5-15.5) % Neutrophils # 8.1 H (1.3-7.7) k/uL Chloride 96 L (98-107) mmol/L Carbon Dioxide 41 H* (22-30) mmol/L POC Glucose (mg/dL) (75-99) mg/dL Calcium 8.3 L (8.4-10.2) mg/dL Total Protein 6.0 L (6.3-8.2) g/dL Albumin 3.2 L (3.5-5.0) g/dL Stool Occult Blood Positive H (Negative) Crossmatch Assessment and Plan Plan: 1. Acute on chronic GI bleed with acute blood loss anemia. Patient has been transfused a total of 3 units of packed RBCs. Consult with GI. Protonix 40 mg IV push twice daily added. 2. Diabetes mellitus type 2 with diabetic neuropathy. Patient will be started on half Levemir 25 units at bedtime with anticipation of possible procedure tomorrow. Glimepiride 2 mg daily on hold. Continue NovoLog scale, Tradjenta. 3. Diabetic neuropathy. Continue Lyrica. 4. COPD. Continue Symbicort, albuterol as needed, Singulair 10 mg at bedtime. 5. Hypertension. Continue Norvasc 10 mg daily, Bumex 2 mg twice daily, Lopre ssor 50 g twice daily. 6. Possible chronic diastolic heart failure. Continue Lopressor, Bumex. 7. Hyperlipidemia. Continue Lipitor 40 mg daily. 8. Obstructive sleep apnea. Continue BiPAP at night. 9. Restless leg syndrome. Continue Requip 2 mg twice daily. 10. Recurrent depression. Continue Prozac 20 mg daily. 11. GI prophylaxis. Protonix. 12. DVT prophylaxis. SCDs and FILEMON richardson. The above impression and plan of care have been discussed and directed by signing physician. Tea Rogers nurse practitioner acting as scribe for signing physician.
[2020-03-10 11:23] LABS: Glucose,Whole Blood 127 mg/dL (75-99)
[2020-03-10 17:23] LABS: Glucose,Whole Blood 269 mg/dL (75-99)
[2020-03-10 19:58] LABS: Glucose,Whole Blood 279 mg/dL (75-99)
[2020-03-10] MEDS: INSULIN DETEMIR (LEVEMIR) 100 UNIT/ML SYR SQ SCH (20:40)
[2020-03-10] MEDS: MONTELUKAST 10 MG TAB PO SCH (20:41)
[2020-03-11 06:18] LABS: Glucose,Whole Blood 167 mg/dL (75-99)
[2020-03-11] MEDS: LEVOTHYROXINE 125 MCG TAB PO SCH (06:19)
[2020-03-11] MEDS: INSULIN ASPART (NovoLOG) 100 UNIT/ML VIAL SQ SCH ×4 (06:21→20:40)
[2020-03-11 07:39] LABS: Albumin 3.1 g/dL (3.5-5.0); Calcium 8.1 mg/dL (8.4-10.2); Potassium 3.8 mmol/L (3.5-5.1); Total Bilirubin 0.5 mg/dL (0.2-1.3); Total Protein 5.7 g/dL (6.3-8.2)
[2020-03-11 07:50] LABS: Anisocytosis Slight; HCT 26.7 % (34.0-46.0); HGB 7.6 gm/dL (11.4-16.0); Hypochromasia Marked; MCH 26.1 pg (25.0-35.0); MCHC 28.7 g/dL (31.0-37.0); MCV 90.9 fL (80.0-100.0); Mean Platelet Volume 7.6; Platelet Count 334 k/uL (150-450); Poikilocytosis Marked; RBC 2.93 m/uL (3.80-5.40); RDW 17.8 % (11.5-15.5); WBC 10.1 k/uL (3.8-10.6)
[2020-03-11] MEDS: SYMBICORT 160-4.5 MCG INHALER INHALATION SCH ×2 (08:03→20:28)
[2020-03-11] MEDS: ALBUTEROL NEBULIZED 2.5 MG/3 ML INHALATION PRN ×2 (08:03→20:28)
[2020-03-11] MEDS: PANTOPRAZOLE 40 MG/10 ML VIAL IVP SCH ×2 (08:33→20:39)
[2020-03-11 09:06] LABS: Lymphocytes # (M) 1.21 k/uL (1.0-4.8); Monocytes # (M) 1.01 k/uL (0-1.0); Neutrophils # (M) 7.37 k/uL (1.3-7.7); Neutrophils % (M) 73 %; Nucleated Red Blood Cells 0 /100 WBC (0-0); Total Cells Counted 100
[2020-03-11 09:08] LABS: Polychromasia Present
--- NOTE | 2020-03-11 09:23 | P.CONS ---
History of Present Illness - Reason for Consult Consult date: 03/10/20 Anemia Requesting physician: Yoel Deras - Chief Complaint Anemia - History of Present Illness 65-year-old female with a medical history significant for COPD, diabetes bg itus and CHF as well as a known history of chronic anemia who presents to the hospital due to concerns over lack stools. The patient reports a history of anemia since April. She has had an extensive workup including colonoscopy in the early part of this year which was significant for polyps with no active bleeding noted. She follows with Dr. Zuluaga and underwent a small bowel capsule endoscopy in December with findings of small bowel bleeding. Subsequently in January she was sent to [place] and underwent unsuccessful endoscopy for identification of the bleeding site and was sent to [facility]. One week ago she underwent EGD with which she describes as cautery of bleeding vessels. Of note, medical records have been requested for these procedures but have not been received yet. She presented back to the hospital with reports of ongoing GI bleeding. Hemoglobin found to be 6.7 status post transfusion of one unit of PRBCs. She denies any abdominal pain at this time. Denies any NSAID use at home. Reports that she was previously on iron therapy. Review of Systems REVIEW OF SYSTEMS: CONSTITUTIONAL: Denies any fevers, chills, weight change or fatigue. CARDIOVASCULAR: Denies any chest pain, palpitations high or low blood pressures RESPIRATORY: Denies any shortness of breath, hemoptysis or cough. GENITOURINARY: No dysuria or hematuria. MUSCULOSKELETAL: No weakness reported. SKIN: Denies any new rashes or lesions, jaundice or pallor. PSYCHIATRIC: Denies any depression or anxiety. NEUROLOGY: Denies headache, denies any new focal deficits. EARS/NOSE/THROAT: No recent hearing change, congestion, nasal discharge or sore throat. EYES: No pain in eyes, discharge or change in vision. GASTROINTESTINAL: As per HPI. Past Medical History Past Medical History: Heart Failure, GI Bleed, Respiratory Disorder Additional Past Medical History / Comment(s): heart murmur, neuropathy Last Myocardial Infarction Date:: 2018 History of Any Multi-Drug Resistant Organisms: None Reported Year Discovered:: 04/2019 MDRO Source:: URINE Past Surgical History: Section, Cholecystectomy, Heart Catheterization, Hysterectomy, Orthopedic Surgery Additional Past Surgical History / Comment(s): Gi cauterization 02/22/2020; heart cath 12/26/2019; cataracts removal, lens placement. Past Anesthesia/Blood Transfusion Reactions: Previous Problems w/ Anesthesia Additional Past Anesthesia/Blood Transfusion Reaction / Comm: ALLERGY TO CISATRACURIUM- FACE TURNED RED/SWOLLEN Past Psychological History: No Psychological Hx Reported Smoking Status: Former smoker Past Alcohol Use History: None Reported Past Drug Use History: None Reported Additional History: Family history. Reviewed with vision or noncontributory to current presentation Medications and Allergies Home Medications Medication Instructions Recorded Confirmed Type Albuterol Inhaler [Ventolin Hfa 1 - 2 puff INHALATION RT-QID PRN 03/09/20 03/09/20 History Inhaler] Albuterol Nebulized [Ventolin 2.5 mg INHALATION RT-QID PRN 03/09/20 03/09/20 History Nebulized] Aspirin [Branch Aspirin EC] 81 mg PO DAILY 03/09/20 03/09/20 History Atorvastatin [Lipitor] 40 mg PO DAILY 03/09/20 03/09/20 History Budesonide-Formot 160-4.5 Mcg 2 puff INHALATION BID 03/09/20 03/09/20 History [Symbicort 160-4.5 Mcg Inhaler] Bumetanide 2 mg PO BID 03/09/20 03/09/20 History FLUoxetine HCL 20 mg PO DAILY 03/09/20 03/09/20 History Glimepiride [Amaryl] 2 mg PO DAILY 03/09/20 03/09/20 History Insulin Glargine,Hum.rec.anlog 50 units SQ HS 03/09/20 03/09/20 History [Touidalia Solostar] Isosorbide Mononitrate ER [Imdur] 30 mg PO DAILY 03/09/20 03/09/20 History Levothyroxine Sodium 125 mcg PO DAILY 03/09/20 03/09/20 History Metoprolol Tartrate [Lopressor] 50 mg PO BID 03/09/20 03/09/20 History Montelukast Sodium [Singulair] 10 mg PO HS 03/09/20 03/09/20 History Nitroglycerin Sl Tabs [Nitrostat] 0.4 mg SUBLINGUAL Q5M PRN 03/09/20 03/09/20 History Pantoprazole [Protonix] 40 mg PO DAILY 03/09/20 03/09/20 History Potassium Chloride ER [K-Dur 10] 10 meq PO BID 03/09/20 03/09/20 History Pregabalin [Lyrica] 200 mg PO BID 03/09/20 03/09/20 History amLODIPine [Norvasc] 10 mg PO DAILY 03/09/20 03/09/20 History methocarbamoL [Robaxin] 500 mg PO BID 03/09/20 03/09/20 History rOPINIRole HCL [Requip] 2 mg PO BID 03/09/20 03/09/20 History sitaGLIPtin [Januvia] 100 mg PO DAILY 03/09/20 03/09/20 History Allergies Allergy/AdvReac Type Severity Reaction Status Date / Time cisatracurium [From Nimbex] Allergy Rash/Hives Verified 03/09/20 08:30 Physical Exam Vitals: Vital Signs Temp Pulse Pulse Pulse Resp BP BP 03/10/20 12:57 90 03/10/20 12:47 94 03/10/20 09:19 90 03/10/20 09:07 96 03/10/20 08:00 72 73 17 03/10/20 07:00 97.0 F L 73 17 103/46 03/10/20 01:16 98.2 F 72 20 127/63 03/10/20 00:00 22 03/09/20 20:05 82 03/09/20 19:57 82 03/09/20 18:39 98.5 F 85 18 137/75 03/09/20 15:34 97.6 F 87 27 H 143/61 03/09/20 15:04 97.5 F L 81 18 118/69 03/09/20 14:54 98.0 F 85 18 114/66 03/09/20 14:18 97.9 F 75 18 111/66 Pulse Ox 03/10/20 12:57 03/10/20 12:47 03/10/20 09:19 03/10/20 09:07 03/10/20 08:00 03/10/20 07:00 94 L 03/10/20 01:16 96 03/10/20 00:00 03/09/20 20:05 03/09/20 19:57 03/09/20 18:39 96 03/09/20 15:34 92 L 03/09/20 15:04 91 L 03/09/20 14:54 92 L 03/09/20 14:18 96 Intake and Output 03/09/20 03/10/20 03/10/20 22:59 06:59 14:59 Intake Total 310 Balance 310 Intake: Blood Product 310 Rc As-1 Unit 310 [id number] Other: Voiding Method Bedside Commode Bedside Commode # Voids 1 1 Weight 92.8 kg On physical examination, patient appears comfortable in no apparent distress. HEAD: Normocephalic, atraumatic. EYES: No scleral icterus. No conjunctival injection. MOUTH: No lesions, tongue midline. NECK: Trachea midline, no gross abnormalities. CHEST: Decreased air entry in all feel. HEART: S1-S2 appreciated. ABDOMEN: Soft, obese. Bowel sounds are positive. No organomegaly. No guarding or rigidity. EXTREMITIES: Bilateral pedal edema. SKIN: No rashes, no jaundice. NEUROLOGIC: Alert and oriented x3. No focal deficits. Results CBC & Chem 7: 03/11/20 06:57 03/11/20 06:57 Labs: Abnormal Lab Results - Last 24 Hours (Table) 03/08/20 03/09/20 03/09/20 Range/Units 23:07 16:21 20:42 WBC (3.8-10.6) k/uL RBC (3.80-5.40) m/uL Hgb (11.4-16.0) gm/dL Hct (34.0-46.0) % MCHC (31.0-37.0) g/dL RDW (11.5-15.5) % Neutrophils # (1.3-7.7) k/uL Chloride (98-107) mmol/L Carbon Dioxide (22-30) mmol/L POC Glucose (mg/dL) 267 H 291 H (75-99) mg/dL Calcium (8.4-10.2) mg/dL Total Protein (6.3-8.2) g/dL Albumin (3.5-5.0) g/dL Stool Occult Blood (Negative) Crossmatch See Detail 03/10/20 03/10/20 03/10/20 Range/Units 06:52 08:50 08:50 WBC 11.3 H (3.8-10.6) k/uL RBC 3.09 L (3.80-5.40) m/uL Hgb 8.1 L (11.4-16.0) gm/dL Hct 27.9 L (34.0-46.0) % MCHC 29.1 L (31.0-37.0) g/dL RDW 18.4 H (11.5-15.5) % Neutrophils # 8.1 H (1.3-7.7) k/uL Chloride 96 L (98-107) mmol/L Carbon Dioxide 41 H* (22-30) mmol/L POC Glucose (mg/dL) 109 H (75-99) mg/dL Calcium 8.3 L (8.4-10.2) mg/dL Total Protein 6.0 L (6.3-8.2) g/dL Albumin 3.2 L (3.5-5.0) g/dL Stool Occult Blood (Negative) Crossmatch 03/10/20 03/10/20 Range/Units 09:49 11:21 WBC (3.8-10.6) k/uL RBC (3.80-5.40) m/uL Hgb (11.4-16.0) gm/dL Hct (34.0-46.0) % MCHC (31.0-37.0) g/dL RDW (11.5-15.5) % Neutrophils # (1.3-7.7) k/uL Chloride (98-107) mmol/L Carbon Dioxide (22-30) mmol/L POC Glucose (mg/dL) 127 H (75-99) mg/dL Calcium (8.4-10.2) mg/dL Total Protein (6.3-8.2) g/dL Albumin (3.5-5.0) g/dL Stool Occult Blood Positive H (Negative) Crossmatch Chest x-ray: report reviewed (Evidence of congestive heart failure) Abdominal x-ray: report reviewed Assessment and Plan (1) Anemia associated with acute blood loss Narrative/Plan: 65-year-old female with an extensive history of anemia with extensive GI evaluation in the past year including colonoscopy, small bowel endoscopy, an upper endoscopy with her last procedure with [facility] 1 week ago per her report with cauterization of bleeding vessels per the patient's report. Of note official reports from these procedures been requested and are pending. She presents with melena and anemia of acute blood loss. Plan is for repeat upper endoscopy for further evaluation. Current Visit: Yes Status: Acute Code(s): D62 - ACUTE POSTHEMORRHAGIC ANEMIA SNOMED Code(s): 274035015 (2) GI bleed Current Visit: Yes Status: Acute Code(s): K92.2 - GASTROINTESTINAL HEMOR RHAGE, UNSPECIFIED SNOMED Code(s): 02108587 (3) Melena Current Visit: Yes Status: Acute Code(s): K92.1 - MELENA SNOMED Code(s): 8159555 Plan: Supportive care Clear liquid diet Nothing by mouth after midnight Continue to monitor hemoglobin and hematocrit and transfuse as needed Hold anticoagulation therapy at this time Plan for upper endoscopy with pedieatric colonoscope for evaluation of proximal small bowel tomorrow Records again requested from previous procedures and are pending Thank you for allowing us to participate in the care of the patient we will continue to follow
[2020-03-11] MEDS: SODIUM FERRIC GLUCONAT-SUCROSE 125 MG in SODIUM CHLORIDE 0.9% 100 ML IVPB SCH (10:35)
[2020-03-11 11:47] LABS: Glucose,Whole Blood 128 mg/dL (75-99)
[2020-03-11] MEDS: amLODIPine 10 MG TAB PO SCH (14:56)
[2020-03-11] MEDS: BUMETANIDE 1 MG TAB PO SCH (14:56)
[2020-03-11] MEDS: PREGABALIN 100 MG CAP PO SCH ×2 (14:57→20:39)
[2020-03-11] MEDS: ATORVASTATIN 40 MG TAB PO SCH ×3 (14:57→20:39)
[2020-03-11] MEDS: ISOSORBIDE MONONITRATE ER 30 MG TAB.ER.24H PO SCH (14:57)
[2020-03-11] MEDS: POTASSIUM CHLORIDE ER 10 MEQ TAB.ER.PRT PO SCH ×2 (14:57→20:39)
[2020-03-11] MEDS: METOPROLOL TARTRATE 50 MG TAB PO SCH ×2 (14:57→20:39)
[2020-03-11] MEDS: SENNOSIDES-DOCUSATE SODIUM 1 EACH TAB PO SCH ×2 (14:58→20:30)
[2020-03-11] MEDS: FLUoxetine HCL 20 MG CAP PO SCH (14:58)
[2020-03-11] MEDS: LINAGLIPTIN 5 MG TABLET PO SCH (14:59)
[2020-03-11] MEDS: methocarbamoL 500 MG TAB PO SCH ×2 (15:00→21:03)
[2020-03-11] MEDS: polyethylene glycoL 3350 17 GM POWD.PACK PO SCH (15:04)
--- NOTE | 2020-03-11 15:11 | P.PN ---
Subjective Progress Note Date: 03/11/20 HISTORY OF PRESENT ILLNESS This is a 65-year-old female patient of Dr. Deras with past medical history of diabetes mellitus type 2, diabetic neuropathy, COPD, hypertension, obstructive sleep apnea, hypothyroidism. Patient has had ongoing problems with GI bleed and was seen by Dr. Nieves GI physician and [place]. She had a capsule endoscopy at the office and found ulcers. Patient underwent an EGD and could not get to all of the ulcers and patient was then transferred to [place] for repeat EGD. This will could not be completed at [place] and patient was subsequently transferred [facility] and she did have some cauterization done and was discharged home. Unfortunately, patient is continued to have black stools which is actually increased in frequency. She also has had increased shortness of breath, orthopnea and cough. No fever or chills, no chest pain. She utilized BiPAP last night which seemed to help her shortness of breath. Patient presented to [facility] emergency center as she was sent in because her hemoglobin was less than 7 as an outpatient and she required transfusion. She was afebrile, heart rate 87, blood pressure 130/54 pulse ox 98% on room air. Initial hemoglobin 6.1 and patient has been transfused 1 unit of packed RBCs. Repeat hemoglobin this morning is 6.7 and a second unit of packed RBCs has been ordered. Other lab work revealed WBC of 12.1. CO2 35, BUN 25 and creatinine 1.1, blood sugar 221. She has unknown hemoglobin A1c of 5.2 in the outpatient setting. Lactic acid 1.7, troponin negative. ProBNP 1590. Chest x-ray revealed evidence of heart failure. Atheromatosis aorta. EKG sinus rhythm. 03/10: Patient evaluated this morning, sitting up in bed. She received a total of 3 packed RBCs, repeat hemoglobin 8.1, hematocrit 27.9. Other lab work shows WBC 1.3, CO2 41, BUN 17, creatinine 0.78, blood sugar 109. She still has complaints of shortness of breath with exertion. Vital signs are stable, she is afebrile temp 97.0, heart rate 73, respiratory 17, blood pressure 103/76. GI on consult. 03/11: Patient has been seen by GI with plan for EGD today. Patient is seen today on BiPAP. She is utilizing this while sleeping. She denies having any abdominal tenderness. She did have a bowel movement that was blood-tinged. Repeat hemoglobin is 7.6. CO2 42. Blood sugars running between 128 and 279. REVIEW OF SYSTEMS Constitutional: No fever, no chills, no night sweats. No weight change. Reports weakness, Reports fatigue. No daytime sleepiness. EENT: No headache. No blurred vision or double vision, no loss of vision. No loss of Hearing, no ringing in the ears, no dizziness. No nasal drainage or congestion. No epistaxis. No sore throat. Lungs: Reports shortness of breath, no cough, no sputum production. No wheezing. Cardiovascular: No chest pain, reports lower extremity edema. No palpitations. No paroxysmal nocturnal dyspnea. No orthopnea. No lightheadedness or dizziness. No syncopal episodes. Abdominal: No abdominal pain. No nausea, vomiting. No diarrhea. No constipation. Reports bloody or tarry stools. Reports loss of appetite. Genitourinary: No dysuria, increased frequency, urgency. No urinary retention. Musculoskeletal: No myalgias. Reports muscle weakness, no gait dysfunction, no frequent falls. No back pain. No neck pain. Integumentary: No wounds, no lesions. No rash or pruritus. No unusual bruising. No change in hair or nails. Neurologic: No aphasia. No facial droop. No change in mentation. No head injury. No headache. No paralysis. No paresthesia. Psychiatric: No depression. No anxiety. No mood swings. Endocrine: No abnormal blood sugars. No weight change. No excessive sweating or thirst. No cold intolerance. PHYSICAL EXAMINATION Gen: This is a 65-year-old female. She is resting and recliner and appears to be comfortable at rest. Patient is utilizing BiPAP. HEENT: Head is atraumatic, normocephalic. Pupils equal, round. Sclerae is anicteric. Conjunctiva pale. NECK: Supple. No JVD. No lymphadenopathy. No thyromegaly. LUNGS: Clear to auscultation. No wheezes or rhonchi. No intercostal retractions. HEART: Regular rate and rhythm. Systolic murmur. ABDOMEN: Soft. Bowel sounds are present. No masses. No tenderness. EXTREMITIES: 1+ pedal edema. No calf tenderness. Dorsalis pedis +2 bilaterally. NEUROLOGICAL: Patient is awake, alert and oriented x3. Cranial nerves 2 through 12 are grossly intact. ASSESSMENT AND PLAN 1. Acute on chronic GI bleed with acute blood loss anemia. Patient has been transfused total of 3 units of packed RBCs. Consult with GI appreciated with plan for EGD. Protonix 40 mg IV push twice daily added. 2. Acute hypoxic respiratory failure, POA, secondary to anemia. 3. Diabetes mellitus type 2 with diabetic neuropathy. Patient will be started on half Levemir 25 units at bedtime with anticipation of possible procedure tomorrow. Glimepiride 2 mg daily on hold. Continue NovoLog scale, Tradjenta. 4. Diabetic neuropathy. Continue Lyrica. 5. COPD. Continue Symbicort, albuterol as needed, Singulair 10 mg at bedtime. 6. Hypertension. Continue Norvasc 10 mg daily, Bumex 2 mg twice daily, Lopressor 50 g twice daily. 7. Possible chronic diastolic heart failure. Continue Lopressor, Bumex. 8. Hyperlipidemia. Continue Lipitor 40 mg daily. 9. Obstructive sleep apnea. Continue BiPAP at night. 10. Restless leg syndrome. Continue Requip 2 mg twice daily. 11. Recurrent depression. Continue Prozac 20 mg daily. 12. GI prophylaxis. Protonix. 13. DVT prophylaxis. SCDs and FILEMON hose. Discharge plan: Most likely with homecare. Impression and plan of care have been directed as dictated by the signing physician. Clarice Colón nurse practitioner acting as scribe for signing physician. Objective - Vital Signs Vital signs: Vital Signs Temp 98.1 F 03/11/20 08:31 Pulse 74 03/11/20 08:31 Resp 18 03/11/20 08:31 BP 127/59 03/11/20 08:31 Pulse Ox 94 L 03/11/20 08:31 Intake & Output 03/10/20 03/11/20 03/11/20 18:59 06:59 18:59 Intake Total 10 Output Total 570 Balance -560 Weight 92.8 kg 115.3 kg Intake: Intake, IV Titration 10 Amount Sodium Chloride 0.9% 1, 10 000 ml @ 20 mls/hr IV . Q24H [facility] Rx#:[id number] Output: Urine 570 Other: Voiding Method Bedside Commode Bedside Commode # Voids 1 1 - Labs CBC & Chem 7: 03/11/20 06:57 03/11/20 06:57 Labs: Abnormal Lab Results - Last 24 Hours (Table) 03/10/20 03/10/20 03/10/20 Range/Units 08:50 08:50 09:49 WBC 11.3 H (3.8-10.6) k/uL RBC 3.09 L (3.80-5.40) m/uL Hgb 8.1 L (11.4-16.0) gm/dL Hct 27.9 L (34.0-46.0) % MCHC 29.1 L (31.0-37.0) g/dL RDW 18.4 H (11.5-15.5) % Neutrophils # 8.1 H (1.3-7.7) k/uL Chloride 96 L (98-107) mmol/L Carbon Dioxide 41 H* (22-30) mmol/L BUN (7-17) mg/dL Glucose (74-99) mg/dL POC Glucose (mg/dL) (75-99) mg/dL Calcium 8.3 L (8.4-10.2) mg/dL Total Protein 6.0 L (6.3-8.2) g/dL Albumin 3.2 L (3.5-5.0) g/dL Stool Occult Blood Positive H (Negative) 03/10/20 03/10/20 03/10/20 Range/Units 11:21 17:21 19:57 WBC (3.8-10.6) k/uL RBC (3.80-5.40) m/uL Hgb (11.4-16.0) gm/dL Hct (34.0-46.0) % MCHC (31.0-37.0) g/dL RDW (11.5-15.5) % Neutrophils # (1.3-7.7) k/uL Chloride (98-107) mmol/L Carbon Dioxide (22-30) mmol/L BUN (7-17) mg/dL Glucose (74-99) mg/dL POC Glucose (mg/dL) 127 H 269 H 279 H (75-99) mg/dL Calcium (8.4-10.2) mg/dL Total Protein (6.3-8.2) g/dL Albumin (3.5-5.0) g/dL Stool Occult Blood (Negative) 03/11/20 03/11/20 03/11/20 Range/Units 06:17 06:57 06:57 WBC (3.8-10.6) k/uL RBC 2.93 L (3.80-5.40) m/uL Hgb 7.6 L (11.4-16.0) gm/dL Hct 26.7 L (34.0-46.0) % MCHC 28.7 L (31.0-37.0) g/dL RDW 17.8 H (11.5-15.5) % Neutrophils # (1.3-7.7) k/uL Chloride 95 L (98-107) mmol/L Carbon Dioxide 42 H* (22-30) mmol/L BUN 18 H (7-17) mg/dL Glucose 129 H (74-99) mg/dL POC Glucose (mg/dL) 167 H (75-99) mg/dL Calcium 8.1 L (8.4-10.2) mg/dL Total Protein 5.7 L (6.3-8.2) g/dL Albumin 3.1 L (3.5-5.0) g/dL Stool Occult Blood (Negative)
--- NOTE | 2020-03-11 16:08 | P.PN ---
Subjective Progress Note Date: 03/11/20 Principal diagnosis: anemia 65-year-old female with a medical history significant for COPD, diabetes mellitus and CHF as well as a known history of chronic anemia who presents to the hospital due to concerns over lack stools. The patient reports a history of anemia since April. She has had an extensive workup including colonoscopy in the early part of this year which was significant for polyps with no active bleeding noted. She follows with Dr. Zuluaga and underwent a small bowel capsule endoscopy in December with findings of small bowel bleeding. Subsequently in January she was sent to [place] and underwent unsuccessful endoscopy for identification of the bleeding site and was sent to [facility]. One week ago she underwent EGD with which she describes as cautery of bleeding vessels. The patient was scheduled to undergo an EGD today, however was not tolerating her nasal cannula and was put back on BiPAP. Anesthesia decided to postpone the EGD until respiratory status was reevaluated. Upon entering the room the patient was on nasal cannula, tolerating well. She appears to be in no acute distress. She is denying any chest pain, abdominal p ain, nausea or vomiting. She states she has had a black bowel movement yesterday and again today. Objective - Vital Signs Vital signs: Vital Signs Temp 98.1 F 03/11/20 14:54 Pulse 74 03/11/20 14:54 Resp 18 03/11/20 14:54 BP 135/61 03/11/20 14:54 Pulse Ox 91 L 03/11/20 14:54 Intake & Output 03/10/20 03/11/20 03/11/20 18:59 06:59 18:59 Intake Total 10 Output Total 570 400 Balance -560 -400 Weight 92.8 kg 115.3 kg Intake: Intake, IV Titration 10 Amount Sodium Chloride 0.9% 1, 10 000 ml @ 20 mls/hr IV . Q24H [facility] Rx#:[id number] Output: Urine 570 400 Other: Voiding Method Bedside Commode Bedside Commode # Voids 1 1 # Bowel Movements 1 - Exam General appearance: The patient is alert, oriented, in no acute distress. HET: Head is normocephalic and atraumatic. Conjunctiva pink. Sclera anicteric. Neck: Supple without lymphadenopathy. Trachea midline. Heart: S1 S2. Regular rate and rhythm. Lungs: Clear to auscultation. Mildly diminished. Abdomen: Soft, nontender, Obese, nondistended with bowel sounds. No palpable organomegaly or masses. Extremities: Normal skin color and turgor. Pedal edema. Neurological: No focal deficits. Oriented 3 - Labs CBC & Chem 7: 03/11/20 06:57 03/11/20 06:57 Labs: Abnormal Lab Results - Last 24 Hours (Table) 03/10/20 03/10/20 03/11/20 Range/Units 17:21 19:57 06:17 RBC (3.80-5.40) m/uL Hgb (11.4-16.0) gm/dL Hct (34.0-46.0) % MCHC (31.0-37.0) g/dL RDW (11.5-15.5) % Monocytes # (Manual) (0-1.0) k/uL Chloride (98-107) mmol/L Carbon Dioxide (22-30) mmol/L BUN (7-17) mg/dL Glucose (74-99) mg/dL POC Glucose (mg/dL) 269 H 279 H 167 H (75-99) mg/dL Calcium (8.4-10.2) mg/dL Total Protein (6.3-8.2) g/dL Albumin (3.5-5.0) g/dL 03/11/20 03/11/20 03/11/20 Range/Units 06:57 06:57 11:39 RBC 2.93 L (3.80-5.40) m/uL Hgb 7.6 L (11.4-16.0) gm/dL Hct 26.7 L (34.0-46.0) % MCHC 28.7 L (31.0-37.0) g/dL RDW 17.8 H (11.5-15.5) % Monocytes # (Manual) 1.01 H (0-1.0) k/uL Chloride 95 L (98-107) mmol/L Carbon Dioxide 42 H* (22-30) mmol/L BUN 18 H (7-17) mg/dL Glucose 129 H (74-99) mg/dL POC Glucose (mg/dL) 128 H (75-99) mg/dL Calcium 8.1 L (8.4-10.2) mg/dL Total Protein 5.7 L (6.3-8.2) g/dL Albumin 3.1 L (3.5-5.0) g/dL Assessment and Plan Assessment: (1) Anemia associated with acute blood loss Narrative/Plan: 65-year-old female with an extensive history of anemia with extensive GI evaluation in the past year including colonoscopy, small bowel endoscopy, an upper endoscopy with her last procedure with [facility] 1 week ago per her report with cauterization of bleeding vessels per the patient's report. Of note official reports from these procedures been requested and are pending. She presents with melena and anemia of acute blood loss. Plan is for repeat upper e ndoscopy for further evaluation. Current Visit: Yes Status: Acute Code(s): D62 - ACUTE POSTHEMORRHAGIC ANEMIA SNOMED Code(s): 253973790 (2) GI bleed Current Visit: Yes Status: Acute Code(s): K92.2 - GASTROINTESTINAL HEMORRHAGE, UNSPECIFIED SNOMED Code(s): 98647790 (3) Melena Current Visit: Yes Status: Acute Code(s): K92.1 - MELENA SNOMED Code(s): 9182894 Plan: Supportive care Clear liquid diet Nothing by mouth after midnight Continue to monitor hemoglobin and hematocrit and transfuse as needed Hold anticoagulation therapy at this time Plan for upper endoscopy with pedieatric colonoscope for evaluation of proximal small bowel tomorrow Records again requested from previous procedures and are pending Thank you for allowing us to participate in the care of the patient we will continue to follow Plan: Supportive care heart healthy diet Nothing by mouth after midnight Continue to monitor hemoglobin and hematocrit and transfuse as needed Hold anticoagulation therapy at this time Plan is to reschedule upper endoscopy with pediatric colonoscope for evaluation of proximal small bowel tomorrow if respiratory status is stable Records again requested from previous procedures and are pending Thank you for allowing us to participate in the care of the patient we will continue to follow The impression and plan of care has been dictated as directed. Dr. Pretty Samayoa I performed a history and examination of this patient, discussed the same with the dictator. I agree with the dictator's note ,documented as a scribe. Any additional findings or plans will be noted.
[2020-03-11 17:23] LABS: Glucose,Whole Blood 151 mg/dL (75-99)
--- NOTE | 2020-03-11 17:38 | P.CNPUL ---
History of Present Illness Consult date: 03/11/20 Requesting physician: Yoel Deras Reason for consult: other Chief complaint: Acute on chronic hypoxic rest or a failure History of present illness: 65-year-old white female patient with past medical history of COPD, with chronic hypoxic respiratory failure patient wears 2 L of oxygen during the day, and 3 L at bedtime, chronic CHF, with unknown EF, history of valvular heart disease (not known what valve), diabetes mellitus type 2, with diabetic neuropathy, hypertension, obstructive sleep apnea on CPAP, hypothyroidism and a recent history of GI bleeding, and patient is status post hospitalization and endoscopic evaluation with EGD at the [facility]. She states she was found to have active bleeding in the small bowel after she had a small bowel capsule endoscopy. The bleeding vessels were cauterized during EGD. Patient presented back to the hospital on 03/08/2020 for evaluation of ongoing bleeding with evidence of black tarry stools. In addition she was having increased shortness of breath. Apparently she was having her hemoglobin checked on an outpatient basis and she was called for hemoglobin of 6.1 and was told to go to the hospital for a blood transfusion. Patient denies any chest pain, denied any cough. She does report some increased leg edema from her baseline. She was passing some dark stools at home. Patient was transfused with a total of 3 units of packed red blood cells, and today's hemoglobin is 7.6. Her initial chest x-ray showed evidence of pulmonary vascular congestion, less than patient developed a worsening shortness of breath, she was given an extra dose of Lasix for evidence of fluid overload, was placed on BiPAP. We were asked to see the patient in evaluation for his shortness of breath. Currently she is off the BiPAP, she is on 4 L of oxygen with pulse ox of 91%, lung sounds to reveal diffuse coarse crackles throughout the lung phelps, she has increased peripheral edema, but no acute distress, she states since dose of Lasix her breathing has improved. She is currently on oral Bumex Review of Systems All systems: negative Constitutional: Denies chills, Denies fever Eyes: denies blurred vision, denies pain Ears, nose, mouth and throat: Denies headache, Denies sore throat Cardiovascular: Reports edema, Reports leg edema, Denies chest pain, Denies shortness of breath Respiratory: Reports dyspnea, Reports home oxygen, Denies cough Gastrointestinal: Denies abdominal pain, Denies diarrhea, Denies nausea, Denies vomiting Genitourinary: Denies dysuria, Denies hematuria Musculoskeletal: Denies myalgias Integumentary: Denies pruritus, Denies rash Neurological: Denies numbness, Denies weakness Psychiatric: Denies anxiety, Denies depression Endocrine: Denies fatigue, Denies weight change Past Medical History Past Medical History: Heart Failure, GI Bleed, Respiratory Disorder Additional Past Medical History / Comment(s): heart murmur, neuropathy Last Myocardial Infarction Date:: 2018 History of Any Multi-Drug Resistant Organisms: None Reported Date of last positivie culture/infection: 04/2019 MDRO Source:: URINE Past Surgical History: Section, Cholecystectomy, Heart Catheterization, Hysterectomy, Orthopedic Surgery Additional Past Surgical History / Comment(s): Gi cauterization 02/22/2020; heart cath 12/26/2019; cataracts removal, lens placement. Past Anesthesia/Blood Transfusion Reactions: Previous Problems w/ Anesthesia Additional Past Anesthesia/Blood Transfusion Reaction / Comment(s): ALLERGY TO CISATRACURIUM- FACE TURNED RED/SWOLLEN Past Psychological History: No Psychological Hx Reported Smoking Status: Former smoker Past Alcohol Use History: None Reported Past Drug Use History: None Reported Medications and Allergies Home Medications Medication Instructions Recorded Confirmed Type Albuterol Inhaler [Ventolin Hfa 1 - 2 puff INHALATION RT-QID PRN 03/09/20 03/09/20 History Inhaler] Albuterol Nebulized [Ventolin 2.5 mg INHALATION RT-QID PRN 03/09/20 03/09/20 History Nebulized] Aspirin [Blair Aspirin EC] 81 mg PO DAILY 03/09/20 03/09/20 History Atorvastatin [Lipitor] 40 mg PO DAILY 03/09/20 03/09/20 History Budesonide-Formot 160-4.5 Mcg 2 puff INHALATION BID 03/09/20 03/09/20 History [Symbicort 160-4.5 Mcg Inhaler] Bumetanide 2 mg PO BID 03/09/20 03/09/20 History FLUoxetine HCL 20 mg PO DAILY 03/09/20 03/09/20 History Glimepiride [Amaryl] 2 mg PO DAILY 03/09/20 03/09/20 History Insulin Glargine,Hum.rec.anlog 50 units SQ HS 03/09/20 03/09/20 History [Toujeo Solostar] Isosorbide Mononitrate ER [Imdur] 30 mg PO DAILY 03/09/20 03/09/20 History Levothyroxine Sodium 125 mcg PO DAILY 03/09/20 03/09/20 History Metoprolol Tartrate [Lopressor] 50 mg PO BID 03/09/20 03/09/20 History Montelukast Sodium [Singulair] 10 mg PO HS 03/09/20 03/09/20 History Nitroglycerin Sl Tabs [Nitrostat] 0.4 mg SUBLINGUAL Q5M PRN 03/09/20 03/09/20 History Pantoprazole [Protonix] 40 mg PO DAILY 03/09/20 03/09/20 History Potassium Chloride ER [K-Dur 10] 10 meq PO BID 03/09/20 03/09/20 History Pregabalin [Lyrica] 200 mg PO BID 03/09/20 03/09/20 History amLODIPine [Norvasc] 10 mg PO DAILY 03/09/20 03/09/20 History methocarbamoL [Robaxin] 500 mg PO BID 03/09/20 03/09/20 History rOPINIRole HCL [Requip] 2 mg PO BID 03/09/20 03/09/20 History sitaGLIPtin [Januvia] 100 mg PO DAILY 03/09/20 03/09/20 History Allergies Allergy/AdvReac Type Severity Reaction Status Date / Time cisatracurium [From Nimbex] Allergy Rash/Hives Verified 03/09/20 08:30 Physical Exam Vitals: Vital Signs Temp Pulse Pulse Pulse Resp BP Pulse Ox 03/11/20 14:54 98.1 F 74 18 135/61 91 L 03/11/20 12:55 100 03/11/20 11:31 71 143/75 95 03/11/20 08:31 98.1 F 74 18 127/59 94 L 03/11/20 08:15 72 03/11/20 08:03 70 95 03/11/20 03:54 72 79 18 03/11/20 03:53 98.1 F 79 18 144/64 92 L 03/11/20 00:06 98.2 F 76 18 118/57 94 L 03/11/20 00:00 72 76 18 03/10/20 20:03 90 03/10/20 20:00 98.6 F 72 75 18 137/62 95 03/10/20 19:54 90 03/10/20 18:35 60 20 120/59 90 L Intake and Output 03/11/20 03/11/20 03/11/20 06:59 14:59 22:59 Intake Total 10 Output Total 400 Balance 10 -400 Intake: Intake, IV Titration 10 Amount Sodium Chloride 0.9% 1, 10 000 ml @ 20 mls/hr IV . Q24H [facility] Rx#:[id number] Output: Urine 400 Other: Voiding Method Bedside Commode # Voids 1 2 # Bowel Movements 1 Weight 115.3 kg GENERAL EXAM: Alert, very pleasant, 65-year-old white female, sitting up in a demented, currently on 4 L of oxygen with pulse ox of 91% comfortable in no apparent distress. HEAD: Normocephalic/atraumatic. EYES: Normal reaction of pupils, equal size. Conjunctiva pink, sclera white. NOSE: Clear with pink turbinates. THROAT: No erythema or exudates. NECK: No masses, no JVD, no thyroid enlargement, no adenopathy. CHEST: No chest wall deformity. Symmetrical expansion. LUNGS: Equal air entry with diffuse coarse crackles throughout the lung phelps CVS: Regular rate and rhythm, normal S1 and S2, no gallops, no murmurs, no rubs ABDOMEN: Soft, nontender. No hepatosplenomegaly, normal bowel sounds, no guarding or rigidity. EXTREMITIES: No clubbing, 1+ lower extremity pretibial ankle and pedal edema, no cyanosis, 2+ pulses and upper and lower extremities. MUSCULOSKELETAL: Muscle strength and tone normal. SPINE: No scoliosis or deformity SKIN: No rashes CENTRAL NERVOUS SYSTEM: Alert and oriented -3. No focal deficits, tone is normal in all 4 extremities. PSYCHIATRIC: Alert and oriented -3. Appropriate affect. Intact judgment and insight. Results - Laboratory Findings CBC and BMP: 03/11/20 06:57 03/11/20 06:57 PT/INR, D-dimer PT 9.6 sec (9.0-12.0) 03/08/20 23:07 INR 0.9 (<1.2) 03/08/20 23:07 Abnormal lab findings: Abnormal Labs 03/08/20 03/08/20 03/08/20 23:07 23:07 23:07 WBC 12.1 H RBC 2.29 L Hgb 6.1 L* Hct 21.0 L MCHC 29.1 L RDW 19.3 H Neutrophils # 9.0 H Monocytes # (Manual) Chloride 96 L Carbon Dioxide 35 H BUN 25 H Creatinine 1.10 H Glucose 221 H POC Glucose (mg/dL) Calcium Total Protein 6.0 L Albumin 3.3 L Stool Occult Blood Crossmatch See Detail 03/09/20 03/09/20 03/09/20 07:00 07:06 07:06 WBC 10.8 H RBC 2.50 L Hgb 6.7 L* Hct 23.4 L MCHC 28.6 L RDW 17.8 H Neutrophils # Monocytes # (Manual) Chloride Carbon Dioxide 37 H BUN 24 H Creatinine Glucose 171 H POC Glucose (mg/dL) 198 H Calcium Total Protein 5.8 L Albumin 3.2 L Stool Occult Blood Crossmatch 03/09/20 03/09/20 03/09/20 11:26 13:12 16:21 WBC 12.3 H RBC 2.87 L Hgb 7.6 L Hct 26.0 L MCHC 29.4 L RDW 19.0 H Neutrophils # Monocytes # (Manual) Chloride Carbon Dioxide BUN Creatinine Glucose POC Glucose (mg/dL) 283 H 267 H Calcium Total Protein Albumin Stool Occult Blood Crossmatch 03/09/20 03/10/20 03/10/20 20:42 06:52 08:50 WBC 11.3 H RBC 3.09 L Hgb 8.1 L Hct 27.9 L MCHC 29.1 L RDW 18.4 H Neutrophils # 8.1 H Monocytes # (Manual) Chloride Carbon Dioxide BUN Creatinine Glucose POC Glucose (mg/dL) 291 H 109 H Calcium Total Protein Albumin Stool Occult Blood Crossmatch 03/10/20 03/10/20 03/10/20 08:50 09:49 11:21 WBC RBC Hgb Hct MCHC RDW Neutrophils # Monocytes # (Manual) Chloride 96 L Carbon Dioxide 41 H* BUN Creatinine Glucose POC Glucose (mg/dL) 127 H Calcium 8.3 L Total Protein 6.0 L Albumin 3.2 L Stool Occult Blood Positive H Crossmatch 03/10/20 03/10/20 03/11/20 17:21 19:57 06:17 WBC RBC Hgb Hct MCHC RDW Neutrophils # Monocytes # (Manual) Chloride Carbon Dioxide BUN Creatinine Glucose POC Glucose (mg/dL) 269 H 279 H 167 H Calcium Total Protein Albumin Stool Occult Blood Crossmatch 03/11/20 03/11/20 03/11/20 06:57 06:57 11:39 WBC RBC 2.93 L Hgb 7.6 L Hct 26.7 L MCHC 28.7 L RDW 17.8 H Neutrophils # Monocytes # (Manual) 1.01 H Chloride 95 L Carbon Dioxide 42 H* BUN 18 H Creatinine Glucose 129 H POC Glucose (mg/dL) 128 H Calcium 8.1 L Total Protein 5.7 L Albumin 3.1 L Stool Occult Blood Crossmatch - Diagnostic Findings Chest x-ray: report reviewed, image reviewed Assessment and Plan Plan: Assessment: #1. Acute on chronic hypoxic respiratory failure related to fluid volume overload, acute exacerbation of CHF with unknown EF, patient is feeling better after dose of Lasix, she did require brief BiPAP support #2. Chronic hypoxic rest or a failure related to history of COPD, patient usually wears 2 L of oxygen during the day 3 L of oxygen at night #3. Chronic CHF, with history of valvular disease, we will obtain echocardiogram, patient follows with Dr. Tyson from [place] #4. Acute on chronic anemia, related to GI bleeding and melena, with a recent history of endoscopic evaluation and small bowel capsule endoscopy at [facility] which revealed small bowel bleeding status post cauterization. Status post transfusion with 3 units of packed blood cells #5. Diabetes mellitus 2 diabetic neuropathy #6. Obstructive sleep apnea on CPAP #7. Hypothyroidism #8. History of smoking, currently in remission for last 3 months, patient carries 40 years of smoking of one pack a day #9. Depression Plan: Continue current medical treatment, will switch to oral Bumex to IV Lasix at 40 mg every 12 hours, we'll obtain follow-up chest x-ray in the morning, BiPAP support is needed, and responded well to a single dose of Lasix, diuresed, feeling better, still has diffuse crackles throughout the lung phelps, and lower extremity edema, would benefit from additional diuretics. We'll update echocardiogram. Continue to follow I performed a history & physical examination of the patient and discussed their management with my nurse practitioner, Rika Hartley. I reviewed the nurse practitioner's note and agree with the documented findings and plan of care. Lung sounds are positive for diminished diffuse crackles throughout The findings and the impression was discussed with the patient. I attest to the documentation by the nurse practitioner. Time with Patient: Greater than 30
[2020-03-11 19:58] LABS: Glucose,Whole Blood 203 mg/dL (75-99)
[2020-03-11] MEDS: LACTATED RINGERS 1,000 ML IV SCH (20:29)
[2020-03-11] MEDS: FUROSEMIDE 10 MG/ML 4 ML VIAL IV SCH (20:39)
[2020-03-11] MEDS: MONTELUKAST 10 MG TAB PO SCH (20:39)
[2020-03-11] MEDS: INSULIN DETEMIR (LEVEMIR) 100 UNIT/ML SYR SQ SCH (20:40)
[2020-03-11] MEDS: SODIUM CHLORIDE 0.9% 1,000 ML IV SCH (22:22)
[2020-03-12 06:02] LABS: Glucose,Whole Blood 277 mg/dL (75-99)
[2020-03-12] MEDS: LEVOTHYROXINE 125 MCG TAB PO SCH (06:20)
[2020-03-12] MEDS: INSULIN ASPART (NovoLOG) 100 UNIT/ML VIAL SQ SCH ×4 (06:20→20:34)
--- NOTE | 2020-03-12 07:47 | XR ---
EXAMINATION TYPE: XR chest 1V portable DATE OF EXAM: 03/12/2020 COMPARISON: 03/08/2020 INDICATION: Short of breath TECHNIQUE: Single frontal view of the chest is obtained. FINDINGS: The heart size is moderately prominent. The pulmonary vasculature is normal. There is mild increased lung markings diffusely through the mid and lower lung phelps bilaterally. Fi ndings appear stable over the interval. IMPRESSION: 1. Cardiomegaly. 2. Mild stable bilateral lower lobe infiltrates. Correlate for atelectasis.
[2020-03-12] MEDS: SYMBICORT 160-4.5 MCG INHALER INHALATION SCH ×2 (08:13→20:00)
[2020-03-12] MEDS: ALBUTEROL NEBULIZED 2.5 MG/3 ML INHALATION PRN ×4 (08:19→20:00)
[2020-03-12 08:46] LABS: Anisocytosis Slight; Basophils # (A) 0.1 k/uL (0-0.2); Basophils % (A) 1 %; Eosinophils # (A) 0.4 k/uL (0-0.7); Eosinophils % (A) 4 %; HCT 26.1 % (34.0-46.0); HGB 7.6 gm/dL (11.4-16.0); Hypochromasia Marked; Lymphocytes # (A) 1.2 k/uL (1.0-4.8); Lymphocytes % (A) 13 %; MCH 26.2 pg (25.0-35.0); MCHC 29.2 g/dL (31.0-37.0); MCV 89.5 fL (80.0-100.0); Mean Platelet Volume 6.9; Monocytes # (A) 0.9 k/uL (0-1.0); Monocytes % (A) 10 %; Neutrophils # (A) 6.4 k/uL (1.3-7.7); Neutrophils % (A) 70 %; Platelet Count 330 k/uL (150-450); Poikilocytosis Marked; RBC 2.91 m/uL (3.80-5.40); RDW 18.1 % (11.5-15.5)
[2020-03-12] MEDS: FLUoxetine HCL 20 MG CAP PO SCH (09:14)
[2020-03-12] MEDS: POTASSIUM CHLORIDE ER 10 MEQ TAB.ER.PRT PO SCH ×2 (09:14→20:35)
[2020-03-12] MEDS: LINAGLIPTIN 5 MG TABLET PO SCH (09:14)
[2020-03-12] MEDS: ISOSORBIDE MONONITRATE ER 30 MG TAB.ER.24H PO SCH (09:14)
[2020-03-12] MEDS: SENNOSIDES-DOCUSATE SODIUM 1 EACH TAB PO SCH ×2 (09:14→20:35)
[2020-03-12] MEDS: METOPROLOL TARTRATE 50 MG TAB PO SCH ×2 (09:14→20:36)
[2020-03-12] MEDS: FUROSEMIDE 10 MG/ML 4 ML VIAL IV SCH ×2 (09:14→20:28)
[2020-03-12] MEDS: PREGABALIN 100 MG CAP PO SCH ×2 (09:14→20:35)
[2020-03-12] MEDS: amLODIPine 10 MG TAB PO SCH (09:14)
[2020-03-12] MEDS: methocarbamoL 500 MG TAB PO SCH ×2 (09:15→20:36)
[2020-03-12] MEDS: PANTOPRAZOLE 40 MG/10 ML VIAL IVP SCH ×2 (09:15→20:36)
[2020-03-12] MEDS: polyethylene glycoL 3350 17 GM POWD.PACK PO SCH (09:15)
--- NOTE | 2020-03-12 10:00 | ECHOF ---
Referral Reason:acute heart failure MEASUREMENTS -------- HEIGHT: 152.4 cm WEIGHT: 114.3 kg BP: 128/57 IVSd: 1.6 cm (0.6 - 1.1) LVIDd: 4.7 cm (3.9 - 5.3) LVPWd: 1.5 cm (0.6 - 1.1) EDV(Teich): 101 ml IVSs: 1.9 cm LVIDs: 3.0 cm LVPWs: 1.9 cm %IVS Thck: 16 % ESV(Teich): 35 ml EF(Teich): 65 % %FS: 36 % SV(Teich): 66 ml LA Diam: 3.4 cm (2.7 - 3.8) RVIDd: 3.1 cm (< 3.3) IVC: 24.56 mm LALs A4C: 5.8 cm LAAs A4C: 19.9 cm LAESV A-L A4C: 58 ml LAESV MOD A4C: 51 ml LALs A2C: 5.3 cm LAAs A2C: 14.9 cm LAESV A-L A2C: 36 ml LAESV MOD A2C: 36 ml LAESV(A-L): 48 ml LAESV Index (A-L): 23.21 ml/m Ao Diam: 3.0 cm (2.0 - 3.7) AV Cusp: 1.9 cm (1.5 - 2.6) EPSS: 0.7 cm MV E Compa: 1.90 m/s MV DecT: 354 ms MV Dec [place]: 5.4 m/s MV A Compa: 1.32 m/s MV E/A Ratio: 1.44 MV PHT: 103 ms MV Vmax: 2.20 m/s MV Vmean: 1.30 m/s MV maxP.31 mmHg MV meanP.64 mmHg MV VTI: 76.1 cm LVOT Vmax: 1.36 m/s LVOT maxP.39 mmHg AV Vmax: 3.68 m/s AV maxP.39 mmHg AV Vmax: 3.74 m/s AV Vmean: 2.61 m/s AV maxP.22 mmHg AV meanP.46 mmHg AV Env.Ti: 374 ms AV VTI: 97.5 cm TR Vmax: 3.21 m/s TR maxP.29 mmHg RAP: 5.00 mmHg RVSP: 46.29 mmHg MV EF SLOPE: 42.80 mm/s (70 - 150) MV EXCURSION: 12.15 mm (> 18.000) FINDINGS -------- Sinus rhythm. This was a technically adequate study. The left ventricular size is normal. There is moderate concentric left ventricular hypertrophy. O verall left ventricular systolic function is normal with, an EF between 55 - 60 %. The right ventricle is normal in size. There is mild to moderate aortic valve sclerosis. There is moderate aortic stenosis present. Peak /mean gradient across the Aortic Valve is 56.22mmHg / 30.46mmHg. The mitral valve leaflets are moderately thickened. Moderate mitral annular calcification present. The peak and mean MV gradients are 19.31mmHg 7.64mmHg as measured by doppler. Moderate mitral st enosis. Mild tricuspid regurgitation present. There is moderate pulmonary hypertension. The right ventric ular systolic pressure, as measured by Doppler, is 46.29mmHg. Trace/mild (physiologic) pulmonic regurgitation. The aortic root size is normal. Normal inferior vena cava with normal inspiratory collapse consistent with estimated right atrial pre ssure of 5 mmHg. The inferior vena cava is mildly dilated. There is no pericardial effusion. CONCLUSIONS -------- 1. The left ventricular size is normal. 2. There is moderate concentric left ventricular hypertrophy. 3. Overall left ventricular systolic function is normal with, an EF between 55 - 60 %. 4. There is mild to moderate aortic valve sclerosis. 5. There is moderate aortic stenosis present. 6. Peak/mean gradient across the Aortic Valve is 56.22mmHg / 30.46mmHg. 7. The mitral valve leaflets are moderately thickened. 8. Moderate mitral annular calcification present. 9. The peak and mean MV gradients are 19.31mmHg 7.64mmHg as measured by doppler. 10. Moderate mitral stenosis. 11. Mild tricuspid regurgitation present. 12. There is moderate pulmonary hypertension. 13. The right ventricular systolic pressure, as measured by Doppler, is 46.29mmHg. 14. Trace/mild (physiologic) pulmonic regurgitation. 15. The inferior vena cava is mildly dilated. 16. There is no pericardial effusion. DIE REAMER: Radha Melo RDCS
--- NOTE | 2020-03-12 11:09 | P.PN ---
Subjective Progress Note Date: 03/12/20 HISTORY OF PRESENT ILLNESS This is a 65-year-old female patient of Dr. Deras with past medical history of diabetes mellitus type 2, diabetic neuropathy, COPD, hypertension, obstructive sleep apnea, hypothyroidism. Patient has had ongoing problems with GI bleed and was seen by Dr. Nieves GI physician and [facility]. She had a capsule endoscopy at the office and found ulcers. Patient underwent an EGD and could not get to all of the ulcers and patient was then transferred to [place] for repeat EGD. This will could not be completed at [place] and patient was subsequently transferred [facility] and she did have some cauterization done and was discharged home. Unfortunately, patient is continued to have black stools which is actually increased in frequency. She also has had increased shortness of breath, orthopnea and cough. No fever or chills, no chest pain. She utilized BiPAP last night which seemed to help her shortness of breath. Patient presented to [facility] emergency center as she was sent in because her hemoglobin was less than 7 as an outpatient and she required transfusion. She was afebrile, heart rate 87, blood pressure 130/54 pulse ox 98% on room air. Initial hemoglobin 6.1 and patient has been transfused 1 unit of packed RBCs. Repeat hemoglobin this morning is 6.7 and a second unit of packed RBCs has been ordered. Other lab work revealed WBC of 12.1. CO2 35, BUN 25 and creatinine 1.1, blood sugar 221. She has unknown hemoglobin A1c of 5.2 in the outpatient setting. Lactic acid 1.7, troponin negative. ProBNP 1590. Chest x-ray revealed evidence of heart failure. Atheromatosis aorta. EKG sinus rhythm. 03/10: Patient evaluated this morning, sitting up in bed. She received a total of 3 packed RBCs, repeat hemoglobin 8.1, hematocrit 27.9. Other lab work shows WBC 1.3, CO2 41, BUN 17, creatinine 0.78, blood sugar 109. She still has complaints of shortness of breath with exertion. Vital signs are stable, she is afebrile temp 97.0, heart rate 73, respiratory 17, blood pressure 103/76. GI on consult. 03/11: Patient has been seen by GI with plan for EGD today. Patient is seen today on BiPAP. She is utilizing this while sleeping. She denies having any abdominal tenderness. She did have a bowel movement that was blood-tinged. Repeat hemoglobin is 7.6. CO2 42. Blood sugars running between 128 and 279. 03/12: Patient is currently undergoing echocardiogram. Patient states that she is feeling fine today. Breathing is improved from yesterday. She is on nasal cannula O2. Patient was seen yesterday by pulmonary medicine and oral Bumex changed to IV Lasix of 40 mg every 12 hours. Patient is status post 2 doses of Ferrlecit. Hemoglobin today is 7.6. Blood sugars are running anywhere between 151 and 277. Echocardiogram reveals EF of 55-60%, moderate aortic stenosis, mild to moderate aortic valve sclerosis, moderate mitral stenosis, mild tricuspid regurgitation, moderate pulmonary hypertension. Chest x-ray reveals cardiomegaly. Mild stable bilateral lower lobe infiltrates. Correlate for atelectasis. Incentive spirometry will be added. Patient has been rescheduled for EGD today. Pulse ox 91% on 4 L nasal cannula, heart rate 79, afebrile, blood pressure 128/57. REVIEW OF SYSTEMS Constitutional: No fever, no chills, no night sweats. No weight change. Reports weakness, Reports fatigue. No daytime sleepiness. EENT: No headache. No blurred vision or double vision, no loss of vision. No loss of Hearing, no ringing in the ears, no dizziness. No nasal drainage or congestion. No epistaxis. No sore throat. Lungs: Reports shortness of breath-improved, no cough, no sputum production. No wheezing. Cardiovascular: No chest pain, reports lower extremity edema. No palpitations. No paroxysmal nocturnal dyspnea. No orthopnea. No lightheadedness or dizziness. No syncopal episodes. Abdominal: No abdominal pain. No nausea, vomiting. No diarrhea. No constipation. Reports bloody or tarry stools. Reports loss of appetite. Genitourinary: No dysuria, increased frequency, urgency. No urinary retention. Musculoskeletal: No myalgias. Reports muscle weakness, no gait dysfunction, no frequent falls. No back pain. No neck pain. Integumentary: No wounds, no lesions. No rash or pruritus. No unusual bruising. No change in hair or nails. Neurologic: No aphasia. No facial droop. No change in mentation. No head injury. No headache. No paralysis. No paresthesia. Psychiatric: No depression. No anxiety. No mood swings. Endocrine: No abnormal blood sugars. No weight change. No excessive sweating or thirst. No cold intolerance. PHYSICAL EXAMINATION Gen: This is a 65-year-old female. She is resting in bed and appears to be comfortable at rest. Patient is utilizing BiPAP. HEENT: Head is atraumatic, normocephalic. Pupils equal, round. Sclerae is anicteric. Conjunctiva pale. NECK: Supple. No JVD. No lymphadenopathy. No thyromegaly. LUNGS: Clear to auscultation. No wheezes or rhonchi. No intercostal retractions. HEART: Regular rate and rhythm. Systolic murmur. ABDOMEN: Soft. Bowel sounds are present. No masses. No tenderness. EXTREMITIES: 1+ pedal edema. No calf tenderness. Dorsalis pedis +2 bilaterally. NEUROLOGICAL: Patient is awake, alert and oriented x3. Cranial nerves 2 through 12 are grossly intact. ASSESSMENT AND PLAN 1. Acute on chronic GI bleed with acute blood loss anemia. Patient has been transfused total of 3 units of packed RBCs. Consult with GI appreciated with plan for EGD today. Protonix 40 mg IV push twice daily added. 2. Acute hypoxic respiratory failure, POA, secondary to anemia and fluid overload. Patient is on IV Lasix 40 mg every 12 hours. 3. Diabetes mellitus type 2 with diabetic neuropathy. Levemir increased to 40 units at bedtime. Glimepiride 2 mg daily on hold. Continue NovoLog scale, Tradjenta. 4. Diabetic neuropathy. Continue Lyrica. 5. COPD. Continue Symbicort, albuterol as needed, Singulair 10 mg at bedtime. 6. Hypertension. Continue Norvasc 10 mg daily, Bumex 2 mg twice daily, Lopressor 50 g twice daily. 7. Acute on chronic diastolic heart failure. Continue Lopressor, IV Lasix. 8. Hyperlipidemia. Continue Lipitor 40 mg daily. 9. Obstructive sleep apnea. Continue BiPAP at night. 10. Restless leg syndrome. Continue Requip 2 mg twice daily. 11. Recurrent depression. Continue Prozac 20 mg daily. 12. Valvular heart disease with moderate aortic stenosis, moderate mitral stenosis. Patient will need follow-up with cardiology. 13. Moderate pulmonary hypertension. 14. GI prophylaxis. Protonix. 15. DVT prophylaxis. SCDs and FILEMON hose. Discharge plan: Most likely with homecare. Impression and plan of care have been directed as dictated by the signing physician. Clarice Colón nurse practitioner acting as scribe for signing physician. Objective - Vital Signs Vital signs: Vital Signs Temp 97.7 F 03/12/20 03:43 Pulse 78 03/12/20 08:30 Resp 18 03/12/20 03:43 BP 128/57 03/12/20 03:43 Pulse Ox 91 L 03/12/20 03:43 Intake & Output 03/11/20 03/12/20 03/12/20 18:59 06:59 18:59 Intake Total 120 10 Output Total 400 700 Balance -280 -690 Weight 114.6 kg Intake: IV 10 0.9 10 Oral 120 Output: Urine 400 700 Other: Voiding Method Bedside Commode # Voids 2 0 # Bowel Movements 1 - Labs CBC & Chem 7: 03/12/20 08:03 03/11/20 06:57 Labs: Abnormal Lab Results - Last 24 Hours (Table) 03/11/20 03/11/20 03/11/20 Range/Units 06:57 11:39 16:58 Monocytes # (Manual) 1.01 H (0-1.0) k/uL POC Glucose (mg/dL) 128 H 151 H (75-99) mg/dL 03/11/20 03/12/20 Range/Units 19:57 06:00 Monocytes # (Manual) (0-1.0) k/uL POC Glucose (mg/dL) 203 H 277 H (75-99) mg/dL
[2020-03-12 11:45] LABS: Glucose,Whole Blood 182 mg/dL (75-99)
--- NOTE | 2020-03-12 12:28 | P.PN ---
Subjective Progress Note Date: 03/12/20 Principal diagnosis: Acute on chronic hypoxic rest failure related to fluid volume overload, acute exacerbation of CHF 65-year-old white female patient with past medical history of COPD, with chronic hypoxic respiratory failure patient wears 2 L of oxygen during the day, and 3 L at bedtime, chronic CHF, with unknown EF, history of valvular heart disease (not known what valve), diabetes mellitus type 2, with diabetic neuropathy, hypertension, obstructive sleep apnea on CPAP, hypothyroidism and a recent history of GI bleeding, and patient is status post hospitalization and en doscopic evaluation with EGD at the [facility]. She states she was found to have active bleeding in the small bowel after she had a small bowel capsule endoscopy. The bleeding vessels were cauterized during EGD. Patient presented back to the hospital on 03/08/2020 for evaluation of ongoing bleeding with evidence of black tarry stools. In addition she was having increased shortness of breath. Apparently she was having her hemoglobin checked on an outpatient basis and she was called for hemoglobin of 6.1 and was told to go to the hospital for a blood transfusion. Patient denies any chest pain, denied any cough. She does report some increased leg edema from her baseline. She was passing some dark stools at home. Patient was transfused with a total of 3 units of packed red blood cells, and today's hemoglobin is 7.6. Her initial chest x-ray showed evidence of pulmonary vascular congestion, less than patient developed a worsening shortness of breath, she was given an extra dose of Lasix for evidence of fluid overload, was placed on BiPAP. We were asked to see the patient in evaluation for his shortness of breath. Currently she is off the BiPAP, she is on 4 L of oxygen with pulse ox of 91%, lung sounds to reveal diffuse coarse crackles throughout the lung phelps, she has increased peripheral edema, but no acute distress, she states since dose of Lasix her breathing has improved. She is currently on oral Bumex. On 03/12/2020 patient seen in follow-up on selective care unit, she states her breathing is improving, she did wear BiPAP for several hours last night, she is currently on 5 L of oxygen the pulse ox of 92%, yesterday we switched her over to IV Lasix, which is currently at 40 mg every 12 hours, and patient has produced 1.1 L in urine output over the last 24 hours, she is in negative fluid balance, however her lungs are still positive for diffuse crackles throughout, and she still has lower extremity edema, her echocardiogram has been completed showing moderate concentric LVH, EF between 55-60%, mild to moderate aortic valve sclerosis, moderate aortic stenosis, moderate mitral stenosis, moderate pulmonary hypertension, right-sided pressures of 46.3 mmHg. Patient has been nothing by mouth after midnight for EGD today with Dr. Navarro. Today's hemoglobin is 7.6, patient states her last stool was yesterday, no active bleeding overnight. Objective - Vital Signs Vital signs: Vital Signs Temp 96.4 F L 03/12/20 08:00 Pulse 80 03/12/20 11:48 Resp 18 03/12/20 03:43 BP 142/65 03/12/20 08:00 Pulse Ox 92 L 03/12/20 08:00 Intake & Output 03/11/20 03/12/20 03/12/20 18:59 06:59 18:59 Intake Total 120 10 Output Total 400 700 900 Balance -280 -690 -900 Weight 114.6 kg Intake: IV 10 0.9 10 Oral 120 Output: Urine 400 700 900 Other: Voiding Method Bedside Commode # Voids 2 0 # Bowel Movements 1 - Exam GENERAL EXAM: Alert, very pleasant, 65-year-old white female, sitting up in a demented, currently on 4 L of oxygen with pulse ox of 92% comfortable in no apparent distress. HEAD: Normocephalic/atraumatic. EYES: Normal reaction of pupils, equal size. Conjunctiva pink, sclera white. NOSE: Clear with pink turbinates. THROAT: No erythema or exudates. NECK: No masses, no JVD, no thyroid enlargement, no adenopathy. CHEST: No chest wall deformity. Symmetrical expansion. LUNGS: Equal air entry with diffuse coarse crackles throughout the lung phelps CVS: Regular rate and rhythm, normal S1 and S2, no gallops, no murmurs, no rubs ABDOMEN: Soft, nontender. No hepatosplenomegaly, normal bowel sounds, no guarding or rigidity. EXTREMITIES: No clubbing, 1+ lower extremity pretibial ankle and pedal edema, no cyanosis, 2+ pulses and upper and lower extremities. MUSCULOSKELETAL: Muscle strength and tone normal. SPINE: No scoliosis or deformity SKIN: No rashes CENTRAL NERVOUS SYSTEM: Alert and oriented -3. No focal deficits, tone is normal in all 4 extremities. PSYCHIATRIC: Alert and oriented -3. Appropriate affect. Intact judgment and insight. - Labs CBC & Chem 7: 03/12/20 08:03 03/11/20 06:57 Labs: Abnormal Lab Results - Last 24 Hours (Table) 03/11/20 03/11/20 03/12/20 Range/Units 16:58 19:57 06:00 RBC (3.80-5.40) m/uL Hgb (11.4-16.0) gm/dL Hct (34.0-46.0) % MCHC (31.0-37.0) g/dL RDW (11.5-15.5) % POC Glucose (mg/dL) 151 H 203 H 277 H (75-99) mg/dL 03/12/20 03/12/20 Range/Units 08:03 11:43 RBC 2.91 L (3.80-5.40) m/uL Hgb 7.6 L (11.4-16.0) gm/dL Hct 26.1 L (34.0-46.0) % MCHC 29.2 L (31.0-37.0) g/dL RDW 18.1 H (11.5-15.5) % POC Glucose (mg/dL) 182 H (75-99) mg/dL Assessment and Plan Plan: Assessment: #1. Acute on chronic hypoxic respiratory failure related to fluid volume overload, acute exacerbation of CHF with unknown EF, patient is feeling better after dose of Lasix, she did require brief BiPAP support #2. Chronic hypoxic rest or a failure related to history of COPD, patient usually wears 2 L of oxygen during the day 3 L of oxygen at night #3. Chronic CHF, with history of valvular disease, we will obtain echocardiogram, patient follows with Dr. Tyson from [place] #4. Acute on chronic anemia, related to GI bleeding and melena, with a recent history of endoscopic evaluation and small bowel capsule endoscopy at [facility] which revealed small bowel bleeding status post cauterization. Status post transfusion with 3 units of packed blood cells #5. Diabetes mellitus 2 diabetic neuropathy #6. Obstructive sleep apnea on CPAP #7. Hypothyroidism #8. History of smoking, currently in remission for last 3 months, patient carries 40 years of smoking of one pack a day #9. Depression Plan: We'll continue diuretics for another 24 hours, continue daily weights, intake and output, we will obtain follow-up electrolytes, no recurrence of bleeding overnight, patient is going for EGD today, may utilize BiPAP support at bedtime and as needed. Echo was reviewed, follow-up chest x-ray in the morning I performed a history & physical examination of the patient and discussed their management with my nurse practitioner, Rika Hartley. I reviewed the nurse practitioner's note and agree with the documented findings and plan of care. Lung sounds are positive for diminished diffuse crackles throughout The findings and the impression was discussed with the patient. I attest to the documentation by the nurse practitioner. Time with Patient: Less than 30
[2020-03-12] MEDS: SODIUM FERRIC GLUCONAT-SUCROSE 125 MG in SODIUM CHLORIDE 0.9% 100 ML IVPB SCH (12:43)
[2020-03-12 12:59] LABS: Calcium 8.7 mg/dL (8.4-10.2); Potassium 4.1 mmol/L (3.5-5.1)
[2020-03-12] MEDS ORDERED: KETAMINE 10 MG/ML 20 ML VIAL ONE (13:47)
[2020-03-12] MEDS ORDERED: fentaNYL (PF) 50 MCG/ML 2 ML AMP ONE (13:47)
[2020-03-12] MEDS ORDERED: MIDAZOLAM 2 MG/2 ML VIAL ONE (13:47)
[2020-03-12] MEDS ORDERED: IV FLUID CONTINUATION 1,000 ML IV ONE ×2 (13:47)
[2020-03-12] MEDS ORDERED: LIDOCAINE 1% INJ 10MG/ML (20 ML MDV) ONE (13:47)
--- NOTE | 2020-03-12 14:10 | P.PCN ---
Date of Procedure: 03/12/20 Procedure(s) Performed: BRIEF HISTORY: Patient is a 59-year-old, pleasant, white female admitted hospital with recurrent GI bleed and anemia. She received intravenous of PRBC transfusion. She was recently transferred to [facility] from [facility] and upper endoscopy and was told has bleeding in the proximal small bowel. She did have an EGD and colonoscopy in May 2019 that showed small polyp and diverticulosis. Because of the ongoing melena and persistent/recurrent anemia she is scheduled for repeat upper endoscopy/enteroscopy today. . PROCEDURE PERFORMED: Esophagogastroduodenoscopy/enteroscopy with cautery. PREOPERATIVE DIAGNOSIS: Recurrent upper GI bleed. IV sedation per anesthesia. PROCEDURE: After informed consent was obtained, the patient was brought into the endoscopy unit. IV sedation was administered by Anesthesia under continuous monitoring. Initially the Olympus GIF-140 video endoscope was inserted into the mouth. Esophagus intubated without any difficulty. It was gradually advanced into the stomach and duodenum and proximal jejunum. carefully examined. The scope was advanced age 60 cm of the proximal jejunum. At around the the third portion of the duodenum there was a duodenal angiectasia identified with no active bleeding. I cauterized using a gold probe and initially there was oozing identified and subsequently hemostasis was achieved. The bulb and the second part of the duodenum appeared normal. The scope at this time was withdrawn to the stomach, adequately insufflated with air, and upon careful examination, mucosa of the antrum, body, cardia and the fundus appeared normal. The scope was then withdrawn into the esophagus. The GE junction was located at 39 cm from the incisors. Small hiatal hernia noted. The esophagus appeared normal. There were no erosions or ulcerations seen and the patient tolerated the procedure well. IMPRESSION: 1. 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 2. Mall hiatal hernia. 3. Normal proximal jejunum. RECOMMENDATIONS: The findings of this examination were discussed with the patient. At this time will start him on a clear liquid diet and advance as tolerated and monitor CBC on a daily basis..
[2020-03-12 16:43] LABS: Glucose,Whole Blood 166 mg/dL (75-99)
[2020-03-12] MEDS: LACTATED RINGERS 1,000 ML IV SCH (17:48)
[2020-03-12 19:54] LABS: Glucose,Whole Blood 261 mg/dL (75-99)
[2020-03-12] MEDS: INSULIN DETEMIR (LEVEMIR) 100 UNIT/ML SYR SQ SCH (20:34)
[2020-03-12] MEDS: ATORVASTATIN 40 MG TAB PO SCH ×2 (20:35→20:36)
[2020-03-12] MEDS: MONTELUKAST 10 MG TAB PO SCH (20:35)
[2020-03-12] MEDS: Acetaminophen-Codeine 300-30mg TAB PO PRN (22:58)
[2020-03-13] MEDS: SODIUM CHLORIDE 0.9% 1,000 ML IV SCH (01:38)
[2020-03-13 06:21] LABS: Glucose,Whole Blood 88 mg/dL (75-99)
[2020-03-13] MEDS: INSULIN ASPART (NovoLOG) 100 UNIT/ML VIAL SQ SCH ×4 (06:23→22:36)
[2020-03-13] MEDS: LEVOTHYROXINE 125 MCG TAB PO SCH (06:36)
[2020-03-13 08:19] LABS: Anisocytosis Slight; HGB 8.4 gm/dL (11.4-16.0); Hypochromasia Marked; MCH 26.2 pg (25.0-35.0); MCHC 28.8 g/dL (31.0-37.0); MCV 90.8 fL (80.0-100.0); Mean Platelet Volume 7.8; Platelet Count 384 k/uL (150-450); Poikilocytosis Marked; RBC 3.19 m/uL (3.80-5.40); RDW 18.2 % (11.5-15.5); WBC 10.4 k/uL (3.8-10.6)
[2020-03-13 08:32] LABS: Albumin 3.5 g/dL (3.5-5.0); Potassium 4.3 mmol/L (3.5-5.1); Total Bilirubin 0.6 mg/dL (0.2-1.3); Total Protein 6.5 g/dL (6.3-8.2)
[2020-03-13] MEDS: ALBUTEROL NEBULIZED 2.5 MG/3 ML INHALATION PRN ×4 (08:34→20:14)
[2020-03-13] MEDS: PREGABALIN 100 MG CAP PO SCH ×2 (09:02→22:34)
[2020-03-13] MEDS: LINAGLIPTIN 5 MG TABLET PO SCH (09:02)
[2020-03-13] MEDS: FLUoxetine HCL 20 MG CAP PO SCH (09:02)
[2020-03-13] MEDS: SENNOSIDES-DOCUSATE SODIUM 1 EACH TAB PO SCH ×2 (09:02→22:34)
[2020-03-13] MEDS: METOPROLOL TARTRATE 50 MG TAB PO SCH ×2 (09:02→21:16)
[2020-03-13] MEDS: amLODIPine 10 MG TAB PO SCH (09:02)
[2020-03-13] MEDS: POTASSIUM CHLORIDE ER 10 MEQ TAB.ER.PRT PO SCH ×2 (09:02→22:34)
[2020-03-13] MEDS: ISOSORBIDE MONONITRATE ER 30 MG TAB.ER.24H PO SCH (09:02)
[2020-03-13] MEDS: polyethylene glycoL 3350 17 GM POWD.PACK PO SCH (09:03)
[2020-03-13] MEDS: PANTOPRAZOLE 40 MG/10 ML VIAL IVP SCH (09:03)
[2020-03-13] MEDS: methocarbamoL 500 MG TAB PO SCH (09:03)
[2020-03-13] MEDS: Acetaminophen-Codeine 300-30mg TAB PO PRN (09:03)
[2020-03-13] MEDS: FUROSEMIDE 10 MG/ML 4 ML VIAL IV SCH ×2 (09:03→21:17)
[2020-03-13] MEDS ORDERED: SODIUM FERRIC GLUCONAT-SUCROSE 125 MG in SODIUM CHLORIDE 0.9% 100 ML IVPB ONE (09:30)
[2020-03-13 12:28] LABS: Glucose,Whole Blood 188 mg/dL (75-99)
--- NOTE | 2020-03-13 12:38 | P.PN ---
Subjective Progress Note Date: 03/13/20 Principal diagnosis: Acute on chronic hypoxic rest failure related to fluid volume overload, acute exacerbation of CHF 65-year-old white female patient with past medical history of COPD, with chronic hypoxic respiratory failure patient wears 2 L of oxygen during the day, and 3 L at bedtime, chronic CHF, with unknown EF, history of valvular heart disease (not known what valve), diabetes mellitus type 2, with diabetic neuropathy, hypertension, obstructive sleep apnea on CPAP, hypothyroidism and a recent history of GI bleeding, and patient is status post hospitalization and en doscopic evaluation with EGD at the [facility]. She states she was found to have active bleeding in the small bowel after she had a small bowel capsule endoscopy. The bleeding vessels were cauterized during EGD. Patient presented back to the hospital on 03/08/2020 for evaluation of ongoing bleeding with evidence of black tarry stools. In addition she was having increased shortness of breath. Apparently she was having her hemoglobin checked on an outpatient basis and she was called for hemoglobin of 6.1 and was told to go to the hospital for a blood transfusion. Patient denies any chest pain, denied any cough. She does report some increased leg edema from her baseline. She was passing some dark stools at home. Patient was transfused with a total of 3 units of packed red blood cells, and today's hemoglobin is 7.6. Her initial chest x-ray showed evidence of pulmonary vascular congestion, less than patient developed a worsening shortness of breath, she was given an extra dose of Lasix for evidence of fluid overload, was placed on BiPAP. We were asked to see the patient in evaluation for his shortness of breath. Currently she is off the BiPAP, she is on 4 L of oxygen with pulse ox of 91%, lung sounds to reveal diffuse coarse crackles throughout the lung phelps, she has increased peripheral edema, but no acute distress, she states since dose of Lasix her breathing has improved. She is currently on oral Bumex. On 03/12/2020 patient seen in follow-up on selective care unit, she states her breathing is improving, she did wear BiPAP for several hours last night, she is currently on 5 L of oxygen the pulse ox of 92%, yesterday we switched her over to IV Lasix, which is currently at 40 mg every 12 hours, and patient has produced 1.1 L in urine output over the last 24 hours, she is in negative fluid balance, however her lungs are still positive for diffuse crackles throughout, and she still has lower extremity edema, her echocardiogram has been completed showing moderate concentric LVH, EF between 55-60%, mild to moderate aortic valve sclerosis, moderate aortic stenosis, moderate mitral stenosis, moderate pulmonary hypertension, right-sided pressures of 46.3 mmHg. Patient has been nothing by mouth after midnight for EGD today with Dr. Navarro. Today's hemoglobin is 7.6, patient states her last stool was yesterday, no active bleeding overnight. On 03/13/2020 patient is seen in follow-up on [facility] care unit, she is currently on BiPAP, which she has been wearing at bedtime, patient tolerating it very well, she states she has a home BiPAP unit which she wears. She states since yesterday her breathing is improving, community patient wears 5 L of oxygen the pulse ox of 91%, and some still reveal some scattered which appeared to be improved on today's exam. Patient remains on IV Lasix at 40 mg every 12 hours. Patient is diuresing, still has some residual edema in lower extremities. 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 Today's hemoglobin is 8.4, electrolytes were reviewed as well, CO2 is at 43, BUN of 15, creatinine 0.92, sodium is 141, potassium is 4.3 Objective - Vital Signs Vital signs: Vital Signs Temp 98.1 F 03/13/20 07:00 Pulse 70 03/13/20 12:03 Resp 20 03/12/20 23:00 BP 122/56 03/13/20 07:00 Pulse Ox 96 03/13/20 07:00 Intake & Output 03/12/20 03/13/20 03/13/20 18:59 06:59 18:59 Intake Total 610 160 360 Output Total 900 Balance -290 160 360 Weight 94.5 kg Intake: IV 150 Intake, IV Titration 220 160 Amount Sodium Chloride 0.9% 1, 120 160 000 ml @ 20 mls/hr IV . Q24H [facility] Rx#:[id number] Sodium Ferric Gluconat- 100 Sucrose 125 mg In Sodium Chloride 0.9% 100 ml @ 100 mls/hr IVPB DAILY [facility] Rx#:[id number] Oral 240 360 Output: Urine 900 Other: Voiding Method Bedside Commode # Voids 1 - Exam GENERAL EXAM: Alert, very pleasant, 65-year-old white female, sitting up in a demented, currently on 5 L of oxygen with pulse ox of 91% comfortable in no apparent distress. HEAD: Normocephalic/atraumatic. EYES: Normal reaction of pupils, equal size. Conjunctiva pink, sclera white. NOSE: Clear with pink turbinates. THROAT: No erythema or exudates. NECK: No masses, no JVD, no thyroid enlargement, no adenopathy. CHEST: No chest wall deformity. Symmetrical expansion. LUNGS: Equal air entry with diffuse coarse crackles throughout the lung phelps CVS: Regular rate and rhythm, normal S1 and S2, no gallops, no murmurs, no rubs ABDOMEN: Soft, nontender. No hepatosplenomegaly, normal bowel sounds, no guarding or rigidity. EXTREMITIES: No clubbing, 1+ lower extremity pretibial ankle and pedal edema, no cyanosis, 2+ pulses and upper and lower extremities. MUSCULOSKELETAL: Muscle strength and tone normal. SPINE: No scoliosis or deformity SKIN: No rashes CENTRAL NERVOUS SYSTEM: Alert and oriented -3. No focal deficits, tone is normal in all 4 extremities. PSYCHIATRIC: Alert and oriented -3. Appropriate affect. Intact judgment and insight. - Labs CBC & Chem 7: 03/13/20 07:37 03/13/20 07:37 Labs: Abnormal Lab Results - Last 24 Hours (Table) 03/12/20 03/12/20 03/12/20 Range/Units 08:03 16:41 19:53 RBC (3.80-5.40) m/uL Hgb (11.4-16.0) gm/dL Hct (34.0-46.0) % MCHC (31.0-37.0) g/dL RDW (11.5-15.5) % Chloride 95 L (98-107) mmol/L Carbon Dioxide 41 H* (22-30) mmol/L Glucose 189 H (74-99) mg/dL POC Glucose (mg/dL) 166 H 261 H (75-99) mg/dL Alkaline Phosphatase (38-126) U/L 03/13/20 03/13/20 Range/Units 07:37 07:37 RBC 3.19 L (3.80-5.40) m/uL Hgb 8.4 L (11.4-16.0) gm/dL Hct 29.0 L (34.0-46.0) % MCHC 28.8 L (31.0-37.0) g/dL RDW 18.2 H (11.5-15.5) % Chloride 94 L (98-107) mmol/L Carbon Dioxide 43 H* (22-30) mmol/L Glucose 102 H (74-99) mg/dL POC Glucose (mg/dL) (75-99) mg/dL Alkaline Phosphatase 133 H (38-126) U/L Assessment and Plan Plan: Assessment: #1. Acute on chronic hypoxic respiratory failure related to fluid volume overload, acute exacerbation of CHF with unknown EF, patient is feeling better after dose of Lasix, requiring BiPAP #2. Chronic hypoxic rest or a failure related to history of COPD, patient usually wears 2 L of oxygen during the day 3 L of oxygen at night #3. Chronic CHF, with history of valvular disease, we will obtain echocardiogram, patient follows with Dr. Tyson from [place] #4. Acute on chronic anemia, related to GI bleeding and melena, with a recent history of endoscopic evaluation and small bowel capsule endoscopy at [facility] which revealed small bowel bleeding status post cauterization. Status post transfusion with 3 units of packed blood cells #5. Diabetes mellitus 2 diabetic neuropathy #6. Obstructive sleep apnea on CPAP #7. Hypothyroidism #8. History of smoking, currently in remission for last 3 months, patient carries 40 years of smoking of one pack a day #9. Depression Plan: We'll obtain follow-up chest x-ray in the morning, continue diuretics for another 24 hours, no active bleeding, vital signs have remained stable. We'll consider giving the patient a couple doses of Diamox, we'll continue to closely follow. Follow-up electrolytes and renal profile in the morning I performed a history & physical examination of the patient and discussed their management with my nurse practitioner, Rika Hartley. I reviewed the nurse practitioner's note and agree with the documented findings and plan of care. Lung sounds are positive for diminished diffuse crackles throughout The findings and the impression was discussed with the patient. I attest to the documentation by the nurse practitioner. Time with Patient: Less than 30
[2020-03-13] MEDS: methylPREDNISolone SOD SUCCI 40 MG/ML 1 ML VIAL IV SCH ×2 (13:11→17:54)
--- NOTE | 2020-03-13 14:22 | P.PN ---
Subjective Progress Note Date: 03/13/20 HISTORY OF PRESENT ILLNESS This is a 65-year-old female patient of Dr. Deras with past medical history of diabetes mellitus type 2, diabetic neuropathy, COPD, hypertension, obstructive sleep apnea, hypothyroidism. Patient has had ongoing problems with GI bleed and was seen by Dr. Nieves GI physician and [place]. She had a capsule endoscopy at the office and found ulcers. Patient underwent an EGD and could not get to all of the ulcers and patient was then transferred to [place] for repeat EGD. This will could not be completed at [place] and patient was subsequently transferred [facility] and she did have some cauterization done and was discharged home. Unfortunately, patient is continued to have black stools which is actually increased in frequency. She also has had increased shortness of breath, orthopnea and cough. No fever or chills, no chest pain. She utilized BiPAP last night which seemed to help her shortness of breath. Patient presented to [facility] emergency center as she was sent in because her hemoglobin was less than 7 as an outpatient and she required transfusion. She was afebrile, heart rate 87, blood pressure 130/54 pulse ox 98% on room air. Initial hemoglobin 6.1 and patient has been transfused 1 unit of packed RBCs. Repeat hemoglobin this morning is 6.7 and a second unit of packed RBCs has been ordered. Other lab work revealed WBC of 12.1. CO2 35, BUN 25 and creatinine 1.1, blood sugar 221. She has unknown hemoglobin A1c of 5.2 in the outpatient setting. Lactic acid 1.7, troponin negative. ProBNP 1590. Chest x-ray revealed evidence of heart failure. Atheromatosis aorta. EKG sinus rhythm. 03/10: Patient evaluated this morning, sitting up in bed. She received a total of 3 packed RBCs, repeat hemoglobin 8.1, hematocrit 27.9. Other lab work shows WBC 1.3, CO2 41, BUN 17, creatinine 0.78, blood sugar 109. She still has complaints of shortness of breath with exertion. Vital signs are stable, she is afebrile temp 97.0, heart rate 73, respiratory 17, blood pressure 103/76. GI on consult. 03/11: Patient has been seen by GI with plan for EGD today. Patient is seen today on BiPAP. She is utilizing this while sleeping. She denies having any abdominal tenderness. She did have a bowel movement that was blood-tinged. Repeat hemoglobin is 7.6. CO2 42. Blood sugars running between 128 and 279. 03/12: Patient is currently undergoing echocardiogram. Patient states that she is feeling fine today. Breathing is improved from yesterday. She is on nasal cannula O2. Patient was seen yesterday by pulmonary medicine and oral Bumex changed to IV Lasix of 40 mg every 12 hours. Patient is status post 2 doses of Ferrlecit. Hemoglobin today is 7.6. Blood sugars are running anywhere between 151 and 277. Echocardiogram reveals EF of 55-60%, moderate aortic stenosis, mild to moderate aortic valve sclerosis, moderate mitral stenosis, mild tricuspid regurgitation, moderate pulmonary hypertension. Chest x-ray reveals cardiomegaly. Mild stable bilateral lower lobe infiltrates. Correlate for atelectasis. Incentive spirometry will be added. Patient has been rescheduled for EGD today. Pulse ox 91% on 4 L nasal cannula, heart rate 79, afebrile, blood pressure 128/57. 03/13: Yesterday, the patient underwent EGD with Dr. 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 Patient was cleared to start diet and advance as tolerated. Patient is still on BiPAP today. She states her breathing is a little bit better but not much. We will order another dose of Ferrlecit today. Patient started on Solu-Medrol 40 mg IV every 8 hours. Patient is asking to go to [facility] at discharge and watch caser updated. Covid testing ordered. Patient has been afebrile, heart rate 74, blood pressure 122/56, pulse ox 96% on BiPAP. Repeat hemoglobin 8.4, CO2 43. REVIEW OF SYSTEMS Constitutional: No fever, no chills, no night sweats. No weight change. Reports weakness, Reports fatigue. No daytime sleepiness. EENT: No headache. No blurred vision or double vision, no loss of vision. No loss of Hearing, no ringing in the ears, no dizziness. No nasal drainage or congestion. No epistaxis. No sore throat. Lungs: Reports shortness of breath-improved, no cough, no sputum production. No wheezing. Cardiovascular: No chest pain, reports lower extremity edema. No palpitations. No paroxysmal nocturnal dyspnea. No orthopnea. No lightheadedness or dizziness. No syncopal episodes. Abdominal: No abdominal pain. No nausea, vomiting. No diarrhea. No constipation. Denies bloody or tarry stools. Reports loss of appetite. Genitourinary: No dysuria, increased frequency, urgency. No urinary retention. Musculoskeletal: No myalgias. Reports muscle weakness, no gait dysfunction, no frequent falls. No back pain. No neck pain. Integumentary: No wounds, no lesions. No rash or pruritus. No unusual bruising. No change in hair or nails. Neurologic: No aphasia. No facial droop. No change in mentation. No head injury. No headache. No paralysis. No paresthesia. Psychiatric: No depression. No anxiety. No mood swings. Endocrine: No abnormal blood sugars. No weight change. No excessive sweating or thirst. No cold intolerance. PHYSICAL EXAMINATION Gen: This is a 65-year-old female. She is resting in bed and appears to be comfortable at rest. Patient is utilizing BiPAP. HEENT: Head is atraumatic, normocephalic. Pupils equal, round. Sclerae is anicteric. Conjunctiva pale. NECK: Supple. No JVD. No lymphadenopathy. No thyromegaly. LUNGS: Clear to auscultation. No wheezes or rhonchi. No intercostal retractions. HEART: Regular rate and rhythm. Systolic murmur. ABDOMEN: Soft. Bowel sounds are present. No masses. No tenderness. EXTREMITIES: 1+ pedal edema. No calf tenderness. Dorsalis pedis +2 bilaterally. NEUROLOGICAL: Patient is awake, alert and oriented x3. Cranial nerves 2 through 12 are grossly intact. ASSESSMENT AND PLAN 1. Acute on chronic GI bleed with acute blood loss anemia. Patient has been transfused total of 3 units of packed RBCs. Consult with GI appreciated with plan for EGD as above. Protonix 40 mg IV push twice daily. 2. Acute hypoxic respiratory failure, POA, secondary to anemia and fluid overload. Patient is on IV Lasix 40 mg every 12 hours. 3. Diabetes mellitus type 2 with diabetic neuropathy. Levemir increased to 40 units at bedtime. Glimepiride 2 mg daily on hold. Continue NovoLog scale, Tradjenta. 4. Diabetic neuropathy. Continue Lyrica. 5. COPD. Continue Symbicort, albuterol as needed, Singulair 10 mg at bedtime. 6. Hypertension. Continue Norvasc 10 mg daily, Lopressor 50 g twice daily. 7. Acute on chronic diastolic heart failure. Continue Lopressor, IV Lasix. 8. Hyperlipidemia. Continue Lipitor 40 mg daily. 9. Obstructive sleep apnea. Continue BiPAP at night. 10. Restless leg syndrome. Continue Requip 2 mg twice daily. 11. Recurrent depression. Continue Prozac 20 mg daily. 12. Valvular heart disease with moderate aortic stenosis, moderate mitral stenosis. Patient will need follow-up with cardiology. 13. Moderate pulmonary hypertension. 14. GI prophylaxis. Protonix. 15. DVT prophylaxis. SCDs and FILEMON hose. Discharge plan: Most likely with homecare. Impression and plan of care have been directed as dictated by the signing physician. Clarice Colón nurse practitioner acting as scribe for signing physician. Objective - Vital Signs Vital signs: Vital Signs Temp 98.3 F 03/12/20 23:00 Pulse 75 03/13/20 08:46 Resp 20 03/12/20 23:00 BP 128/61 03/12/20 23:00 Pulse Ox 96 03/12/20 23:00 Intake & Output 03/12/20 03/13/20 03/13/20 18:59 06:59 18:59 Intake Total 610 160 360 Output Total 900 Balance -290 160 360 Weight 94.5 kg Intake: IV 150 Intake, IV Titration 220 160 Amount Sodium Chloride 0.9% 1, 120 160 000 ml @ 20 mls/hr IV . Q24H [facility] Rx#:[id number] Sodium Ferric Gluconat- 100 Sucrose 125 mg In Sodium Chloride 0.9% 100 ml @ 100 mls/hr IVPB DAILY [facility] Rx#:[id number] Oral 240 360 Output: Urine 900 Other: Voiding Method Bedside Commode # Voids 1 - Labs CBC & Chem 7: 03/13/20 07:37 03/13/20 07:37 Labs: Abnormal Lab Results - Last 24 Hours (Table) 03/12/20 03/12/20 03/12/20 Range/Units 08:03 11:43 16:41 RBC (3.80-5.40) m/uL Hgb (11.4-16.0) gm/dL Hct (34.0-46.0) % MCHC (31.0-37.0) g/dL RDW (11.5-15.5) % Chloride 95 L (98-107) mmol/L Carbon Dioxide 41 H* (22-30) mmol/L Glucose 189 H (74-99) mg/dL POC Glucose (mg/dL) 182 H 166 H (75-99) mg/dL Alkaline Phosphatase (38-126) U/L 03/12/20 03/13/20 03/13/20 Range/Units 19:53 07:37 07:37 RBC 3.19 L (3.80-5.40) m/uL Hgb 8.4 L (11.4-16.0) gm/dL Hct 29.0 L (34.0-46.0) % MCHC 28.8 L (31.0-37.0) g/dL RDW 18.2 H (11.5-15.5) % Chloride 94 L (98-107) mmol/L Carbon Dioxide 43 H* (22-30) mmol/L Glucose 102 H (74-99) mg/dL POC Glucose (mg/dL) 261 H (75-99) mg/dL Alkaline Phosphatase 133 H (38-126) U/L
--- NOTE | 2020-03-13 15:06 | P.PN ---
Subjective Progress Note Date: 03/13/20 Principal diagnosis: anemia 65-year-old female with a medical history significant for COPD, diabetes mellitus and CHF as well as a known history of chronic anemia who presents to the hospital due to concerns over lack stools. The patient reports a history of anemia since April. She has had an extensive workup including colonoscopy in the early part of this year which was significant for polyps with no active bleeding noted. She follows with Dr. Nieves and Mimi and underwent a small bowel capsule endoscopy in December with findings of small bowel bleeding. Subsequently in January she was sent to [place] and underwent unsuccessful endoscopy for identification of the bleeding site and was sent to [facility]. One week ago she underwent EGD with which she describes as cautery of bleeding vessels. She undersent EGD with cautery yesterday with Dr. Samayoa. 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 Small hiatal hernia, normal proximal jejunum. Patient denies signs of any active bleeding, states she had a bowel movement. She described as brown. She denies any nausea, vomiting, or abdominal pain. She is tolerating a regular diet. Objective - Vital Signs Vital signs: Vital Signs Temp 98.1 F 03/13/20 07:00 Pulse 70 03/13/20 12:03 Resp 20 03/12/20 23:00 BP 122/56 03/13/20 07:00 Pulse Ox 96 03/13/20 07:00 Intake & Output 03/12/20 03/13/20 03/13/20 18:59 06:59 18:59 Intake Total 610 160 860 Output Total 900 Balance -290 160 860 Weight 94.5 kg Intake: IV 150 Intake, IV Titration 220 160 100 Amount Sodium Chloride 0.9% 1, 120 160 000 ml @ 20 mls/hr IV . Q24H [facility] Rx#:[id number] Sodium Ferric Gluconat- 100 Sucrose 125 mg In Sodium Chloride 0.9% 100 ml @ 100 mls/hr IVPB DAILY [facility] Rx#:[id number] Sodium Ferric Gluconat- 100 Sucrose 125 mg In Sodium Chloride 0.9% 100 ml @ 100 mls/hr IVPB ONCE ONE Rx#:[id number] Oral 240 760 Output: Urine 900 Other: Voiding Method Bedside Commode # Voids 1 3 - Exam General appearance: The patient is alert, oriented, in no acute distress. HET: Head is normocephalic and atraumatic. Conjunctiva pink. Sclera anicteric. Neck: Supple without lymphadenopathy. Trachea midline. Heart: S1 S2. Regular rate and rhythm. Lungs: Clear to auscultation. Mildly diminished. Abdomen: Soft, nontender, Obese, nondistended with bowel sounds. No palpable organomegaly or masses. Extremities: Normal skin color and turgor. Pedal edema. Neurological: No focal deficits. Oriented 3 - Labs CBC & Chem 7: 03/13/20 07:37 03/13/20 07:37 Labs: Abnormal Lab Results - Last 24 Hours (Table) 03/12/20 03/12/20 03/13/20 Range/Units 16:41 19:53 07:37 RBC 3.19 L (3.80-5.40) m/uL Hgb 8.4 L (11.4-16.0) gm/dL Hct 29.0 L (34.0-46.0) % MCHC 28.8 L (31.0-37.0) g/dL RDW 18.2 H (11.5-15.5) % Chloride (98-107) mmol/L Carbon Dioxide (22-30) mmol/L Glucose (74-99) mg/dL POC Glucose (mg/dL) 166 H 261 H (75-99) mg/dL Alkaline Phosphatase (38-126) U/L 03/13/20 03/13/20 Range/Units 07:37 12:05 RBC (3.80-5.40) m/uL Hgb (11.4-16.0) gm/dL Hct (34.0-46.0) % MCHC (31.0-37.0) g/dL RDW (11.5-15.5) % Chloride 94 L (98-107) mmol/L Carbon Dioxide 43 H* (22-30) mmol/L Glucose 102 H (74-99) mg/dL POC Glucose (mg/dL) 188 H (75-99) mg/dL Alkaline Phosphatase 133 H (38-126) U/L Assessment and Plan Assessment: (1) Anemia associated with acute blood loss Narrative/Plan: 65-year-old female with an extensive history of anemia with extensive GI evaluation in the past year including colonoscopy, small bowel endoscopy, an upper endoscopy with her last procedure with [facility] 1 week ago per her report with cauterization of bleeding vessels per the patient's report. Of note official reports from these procedures been requested and are pending. She presents with melena and anemia of acute blood loss. Plan is for repeat upper endoscopy for further evaluation. 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 Dr. Pretty Samayoa I performed a history and examination of this patient, discussed the same with the dictator. I agree with the dictator's note ,documented as a scribe. Any additional findings or plans will be noted.
[2020-03-13] MEDS: SYMBICORT 160-4.5 MCG INHALER INHALATION SCH ×2 (15:42→20:14)
[2020-03-13 16:59] LABS: Glucose,Whole Blood 284 mg/dL (75-99)
[2020-03-13] MEDS: LACTATED RINGERS 1,000 ML IV SCH (17:54)
[2020-03-13 18:04] LABS: ABG Base Excess 13.3 mmol/L; ABG Oxygen Saturation 95.9 % (94-97); ABG PH 7.25 (7.35-7.45); ABG PO2 84 mmHg (83-108); ABG TCO2 43 mmol/L (19-24); Allen Test Performed? Yes
[2020-03-13 18:09] LABS: ABG PCO2 94 mmHg (35-45)
[2020-03-13 18:10] LABS: ABG HCO3 41 mmol/L (21-25)
--- NOTE | 2020-03-13 18:19 | XR ---
EXAMINATION TYPE: XR chest 1V portable DATE OF EXAM: 03/13/2020 COMPARISON: Yesterday HISTORY: Short of breath TECHNIQUE: FINDINGS: Heart appears enlarged. There is some pulmonary vascular congestion. There are chest leads. There is slight blunting of the costophrenic angles. IMPRESSION: Congestive heart failure that is the same or slightly improved compared to yesterday.
[2020-03-13 20:39] LABS: Glucose,Whole Blood 258 mg/dL (75-99)
[2020-03-13] MEDS: MONTELUKAST 10 MG TAB PO SCH (21:17)
[2020-03-13] MEDS: INSULIN DETEMIR (LEVEMIR) 100 UNIT/ML SYR SQ SCH (21:21)
[2020-03-14] MEDS: methylPREDNISolone SOD SUCCI 40 MG/ML 1 ML VIAL IV SCH ×4 (00:11→23:18)
[2020-03-14] MEDS: methocarbamoL 500 MG TAB PO SCH ×3 (01:43→21:54)
[2020-03-14] MEDS: PANTOPRAZOLE 40 MG/10 ML VIAL IVP SCH ×3 (01:44→21:54)
[2020-03-14 06:22] LABS: Glucose,Whole Blood 270 mg/dL (75-99)
[2020-03-14] MEDS: LEVOTHYROXINE 125 MCG TAB PO SCH (06:44)
[2020-03-14] MEDS: INSULIN ASPART (NovoLOG) 100 UNIT/ML VIAL SQ SCH ×5 (06:44→22:29)
[2020-03-14] MEDS: SODIUM CHLORIDE 0.9% 1,000 ML IV SCH (06:45)
[2020-03-14] MEDS: SYMBICORT 160-4.5 MCG INHALER INHALATION SCH ×2 (07:42→20:05)
[2020-03-14] MEDS: FUROSEMIDE 10 MG/ML 4 ML VIAL IV SCH ×2 (09:52→21:55)
[2020-03-14] MEDS: amLODIPine 10 MG TAB PO SCH (09:52)
[2020-03-14] MEDS: LINAGLIPTIN 5 MG TABLET PO SCH (09:52)
[2020-03-14] MEDS: METOPROLOL TARTRATE 50 MG TAB PO SCH ×2 (09:52→21:54)
[2020-03-14] MEDS: FLUoxetine HCL 20 MG CAP PO SCH (09:52)
[2020-03-14] MEDS: ISOSORBIDE MONONITRATE ER 30 MG TAB.ER.24H PO SCH (09:52)
[2020-03-14] MEDS: POTASSIUM CHLORIDE ER 10 MEQ TAB.ER.PRT PO SCH ×2 (09:52→21:54)
[2020-03-14] MEDS: SENNOSIDES-DOCUSATE SODIUM 1 EACH TAB PO SCH ×2 (09:52→21:53)
[2020-03-14] MEDS: PREGABALIN 100 MG CAP PO SCH ×2 (09:52→22:28)
[2020-03-14 09:56] LABS: Anisocytosis Slight; HCT 26.6 % (34.0-46.0); HGB 7.4 gm/dL (11.4-16.0); Hypochromasia Marked; MCH 25.9 pg (25.0-35.0); MCV 92.5 fL (80.0-100.0); Mean Platelet Volume 7.8; Platelet Count 294 k/uL (150-450); Poikilocytosis Moderate; RBC 2.88 m/uL (3.80-5.40); RDW 18.4 % (11.5-15.5); WBC 9.5 k/uL (3.8-10.6)
[2020-03-14 10:12] LABS: Albumin 3.1 g/dL (3.5-5.0); Calcium 8.6 mg/dL (8.4-10.2); Potassium 4.3 mmol/L (3.5-5.1); Total Bilirubin 0.4 mg/dL (0.2-1.3); Total Protein 5.8 g/dL (6.3-8.2)
--- NOTE | 2020-03-14 10:21 | XR ---
EXAMINATION TYPE: XR chest 1V DATE OF EXAM: 03/14/2020 COMPARISON: 03/13/2020 INDICATION: Short of breath TECHNIQUE: Single frontal view of the chest is obtained. FINDINGS: The heart size is mildly prominent. The pulmonary vasculature is prominent. Mild increased lung markings are present. Correlate for volume overload or early congestive heart sabina lure IMPRESSION: 1. Clinical correlation recommended for early volume overload or congestive heart failure. Follow-up is recommended.
[2020-03-14 11:53] LABS: Glucose,Whole Blood 320 mg/dL (75-99)
[2020-03-14] MEDS: ALBUTEROL NEBULIZED 2.5 MG/3 ML INHALATION PRN ×2 (12:01→20:05)
[2020-03-14] MEDS: polyethylene glycoL 3350 17 GM POWD.PACK PO SCH (12:05)
--- NOTE | 2020-03-14 12:47 | P.PN ---
Subjective Progress Note Date: 03/14/20 HISTORY OF PRESENT ILLNESS This is a 65-year-old female patient of Dr. Deras with past medical history of diabetes mellitus type 2, diabetic neuropathy, COPD, hypertension, obstructive sleep apnea, hypothyroidism. Patient has had ongoing problems with GI bleed and was seen by Dr. Nieves GI physician and [place]. She had a capsule endoscopy at the office and found ulcers. Patient underwent an EGD and could not get to all of the ulcers and patient was then transferred to [place] for repeat EGD. This will could not be completed at [place] and patient was subsequently transferred [facility] and she did have some cauterization done and was discharged home. Unfortunately, patient is continued to have black stools which is actually increased in frequency. She also has had increased shortness of breath, orthopnea and cough. No fever or chills, no chest pain. She utilized BiPAP last night which seemed to help her shortness of breath. Patient presented to [facility] emergency center as she was sent in because her hemoglobin was less than 7 as an outpatient and she required transfusion. She was afebrile, heart rate 87, blood pressure 130/54 pulse ox 98% on room air. Initial hemoglobin 6.1 and patient has been transfused 1 unit of packed RBCs. Repeat hemoglobin this morning is 6.7 and a second unit of packed RBCs has been ordered. Other lab work revealed WBC of 12.1. CO2 35, BUN 25 and creatinine 1.1, blood sugar 221. She has unknown hemoglobin A1c of 5.2 in the outpatient setting. Lactic acid 1.7, troponin negative. ProBNP 1590. Chest x-ray revealed evidence of heart failure. Atheromatosis aorta. EKG sinus rhythm. 03/10: Patient evaluated this morning, sitting up in bed. She received a total of 3 packed RBCs, repeat hemoglobin 8.1, hematocrit 27.9. Other lab work shows WBC 1.3, CO2 41, BUN 17, creatinine 0.78, blood sugar 109. She still has complaints of shortness of breath with exertion. Vital signs are stable, she is afebrile temp 97.0, heart rate 73, respiratory 17, blood pressure 103/76. GI on consult. 03/11: Patient has been seen by GI with plan for EGD today. Patient is seen today on BiPAP. She is utilizing this while sleeping. She denies having any abdominal tenderness. She did have a bowel movement that was blood-tinged. Repeat hemoglobin is 7.6. CO2 42. Blood sugars running between 128 and 279. 03/12: Patient is currently undergoing echocardiogram. Patient states that she is feeling fine today. Breathing is improved from yesterday. She is on nasal cannula O2. Patient was seen yesterday by pulmonary medicine and oral Bumex changed to IV Lasix of 40 mg every 12 hours. Patient is status post 2 doses of Ferrlecit. Hemoglobin today is 7.6. Blood sugars are running anywhere between 151 and 277. Echocardiogram reveals EF of 55-60%, moderate aortic stenosis, mild to moderate aortic valve sclerosis, moderate mitral stenosis, mild tricuspid regurgitation, moderate pulmonary hypertension. Chest x-ray reveals cardiomegaly. Mild stable bilateral lower lobe infiltrates. Correlate for atelectasis. Incentive spirometry will be added. Patient has been rescheduled for EGD today. Pulse ox 91% on 4 L nasal cannula, heart rate 79, afebrile, blood pressure 128/57. 9: Yesterday, the patient underwent EGD with Dr. 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 Patient was cleared to start diet and advance as tolerated. Patient is still on BiPAP today. She states her breathing is a little bit better but not much. We will order another dose of Ferrlecit today. Patient started on Solu-Medrol 40 mg IV every 8 hours. Patient is asking to go to [facility] at discharge and patient case manager updated. Covid testing ordered. Patient has been afebrile, heart rate 74, blood pressure 122/56, pulse ox 96% on BiPAP. Repeat hemoglobin 8.4, CO2 43. 9/: Patient has been afebrile, heart rate 70, blood pressure 120/50, patient is currently on BiPAP with continued shortness of breath. Repeat blood work reveals WBC 9.5, hemoglobin 7.4, CO2 40, BUN 1.05. Blood sugars are running between 270 and 320. She is currently on Solu-Medrol 40 mg IV every 8 hours. Scheduled NovoLog 5 units with each meal will be added. Diamox was added yesterday by pulmonary medicine. Repeat chest x-ray reveals early volume overload or heart failure. Discussed discharge planning with the patient and family would like patient to go to [facility]. After discussion, patient is agreeable to go to [facility] for subacute rehab. Patient will require close monitoring after discharge. Authorization process will be started today in anticipation of probable discharge on Tuesday. REVIEW OF SYSTEMS Constitutional: No fever, no chills, no night sweats. No weight change. Reports weakness, Reports fatigue. No daytime sleepiness. EENT: No headache. No blurred vision or double vision, no loss of vision. No loss of Hearing, no ringing in the ears, no dizziness. No nasal drainage or con gestion. No epistaxis. No sore throat. Lungs: Reports shortness of breath, no cough, no sputum production. No wheezing. Cardiovascular: No chest pain, reports lower extremity edema. No palpitations. No paroxysmal nocturnal dyspnea. No orthopnea. No lightheadedness or dizziness. No syncopal episodes. Abdominal: No abdominal pain. No nausea, vomiting. No diarrhea. No constipation. Denies bloody or tarry stools. Reports loss of appetite. Genitourinary: No dysuria, increased frequency, urgency. No urinary retention. Musculoskeletal: No myalgias. Reports muscle weakness, no gait dysfunction, no frequent falls. No back pain. No neck pain. Integumentary: No wounds, no lesions. No rash or pruritus. No unusual bruising. No change in hair or nails. Neurologic: No aphasia. No facial droop. No change in mentation. No head injury. No headache. No paralysis. No paresthesia. Psychiatric: No depression. No anxiety. No mood swings. Endocrine: No abnormal blood sugars. No weight change. No excessive sweating or thirst. No cold intolerance. PHYSICAL EXAMINATION Gen: This is a 65-year-old female. She is resting in bed and appears to be comfortable at rest. Patient is utilizing BiPAP. HEENT: Head is atraumatic, normocephalic. Pupils equal, round. Sclerae is anicteric. Conjunctiva pale. NECK: Supple. No JVD. No lymphadenopathy. No thyromegaly. LUNGS: Clear to auscultation. No wheezes or rhonchi. No intercostal retractions. HEART: Regular rate and rhythm. Systolic murmur. ABDOMEN: Soft. Bowel sounds are present. No masses. No tenderness. EXTREMITIES: 1+ pedal edema. No calf tenderness. Dorsalis pedis +2 bilaterally. NEUROLOGICAL: Patient is awake, alert and oriented x3. Cranial nerves 2 through 12 are grossly intact. ASSESSMENT AND PLAN 1. Acute on chronic GI bleed with acute blood loss anemia. Patient has been transfused total of 3 units of packed RBCs. Consult with GI appreciated with renetta cueva for EGD as above. Protonix 40 mg IV push twice daily. 2. Acute on chronic hypoxic respiratory failure, POA, secondary to anemia, acute diastolic heart failure. Patient is on IV Lasix 40 mg every 12 hours, Diamox 250 mg IV every 12 hours. Monitor I&O, daily weights, renal function and electrolytes. 3. Diabetes mellitus type 2 with diabetic neuropathy. Levemir increased to 40 units at bedtime. Start Humalog 5 units with meals. Resume Glimepiride 2 mg daily. Continue NovoLog scale, Tradjenta. 4. Diabetic neuropathy. Continue Lyrica. 5. COPD. Continue Symbicort, albuterol as needed, Singulair 10 mg at bedtime. 6. Hypertension. Continue Norvasc 10 mg daily, Lopressor 50 mg twice daily. 7. Acute on chronic diastolic heart failure. Continue as above. 8. Hyperlipidemia. Continue Lipitor 40 mg daily. 9. Obstructive sleep apnea. Continue BiPAP at night. 10. Restless leg syndrome. Continue Requip 2 mg twice daily. 11. Recurrent depression. Continue Prozac 20 mg daily. 12. Valvular heart disease with moderate aortic stenosis, moderate mitral stenosis. Patient will need follow-up with cardiology. 13. Moderate pulmonary hypertension. 14. GI prophylaxis. Protonix. 15. DVT prophylaxis. SCDs and FILEMON hose. Discharge plan: Subacute rehab at [facility] on Tuesday Impression and plan of care have been directed as dictated by the signing physician. Clarice Colón nurse practitioner acting as scribe for signing physician. Objective - Vital Signs Vital signs: Vital Signs Temp 98.6 F 03/13/20 23:00 Pulse 68 03/14/20 08:00 Resp 18 03/13/20 23:00 BP 108/46 03/14/20 04:48 Pulse Ox 94 L 03/14/20 04:48 Intake & Output 09/17/20 09/18/20 09/18/20 18:59 06:59 18:59 Intake Total 860 240 Output Total 200 1000 Balance 660 -1000 240 Weight 97.5 kg Intake: Intake, IV Titration 100 Amount Sodium Ferric Gluconat- 100 Sucrose 125 mg In Sodium Chloride 0.9% 100 ml @ 100 mls/hr IVPB ONCE ONE Rx#:[id number] Oral 760 240 Output: Urine 200 1000 Other: Voiding Method Bedside Commode # Voids 3 1 - Labs CBC & Chem 7: 03/14/20 09:05 03/14/20 09:05 Labs: Abnormal Lab Results - Last 24 Hours (Table) 03/13/20 03/13/20 03/13/20 Range/Units 12:05 16:56 17:50 ABG pH 7.25 L (7.35-7.45) ABG pCO2 94 H* (35-45) mmHg ABG HCO3 41 H* (21-25) mmol/L ABG Total CO2 43 H (19-24) mmol/L POC Glucose (mg/dL) 188 H 284 H (75-99) mg/dL 03/13/20 03/14/20 Range/Units 20:37 06:20 ABG pH (7.35-7.45) ABG pCO2 (35-45) mmHg ABG HCO3 (21-25) mmol/L ABG Total CO2 (19-24) mmol/L POC Glucose (mg/dL) 258 H 270 H (75-99) mg/dL
[2020-03-14] MEDS: GLIMEPIRIDE 2 MG TAB PO SCH (12:58)
--- NOTE | 2020-03-14 13:16 | P.PN ---
Subjective Progress Note Date: 03/14/20 Principal diagnosis: Acute on chronic hypoxic rest failure related to fluid volume overload, acute exacerbation of CHF 65-year-old white female patient with past medical history of COPD, with chronic hypoxic respiratory failure patient wears 2 L of oxygen during the day, and 3 L at bedtime, chronic CHF, with unknown EF, history of valvular heart disease (not known what valve), diabetes mellitus type 2, with diabetic neuropathy, hypertension, obstructive sleep apnea on CPAP, hypothyroidism and a recent history of GI bleeding, and patient is status post hospitalization and en doscopic evaluation with EGD at the [facility]. She states she was found to have active bleeding in the small bowel after she had a small bowel capsule endoscopy. The bleeding vessels were cauterized during EGD. Patient presented back to the hospital on 03/08/2020 for evaluation of ongoing bleeding with evidence of black tarry stools. In addition she was having increased shortness of breath. Apparently she was having her hemoglobin checked on an outpatient basis and she was called for hemoglobin of 6.1 and was told to go to the hospital for a blood transfusion. Patient denies any chest pain, denied any cough. She does report some increased leg edema from her baseline. She was passing some dark stools at home. Patient was transfused with a total of 3 units of packed red blood cells, and today's hemoglobin is 7.6. Her initial chest x-ray showed evidence of pulmonary vascular congestion, less than patient developed a worsening shortness of breath, she was given an extra dose of Lasix for evidence of fluid overload, was placed on BiPAP. We were asked to see the patient in evaluation for his shortness of breath. Currently she is off the BiPAP, she is on 4 L of oxygen with pulse ox of 91%, lung sounds to reveal diffuse coarse crackles throughout the lung phelps, she has increased peripheral edema, but no acute distress, she states since dose of Lasix her breathing has improved. She is currently on oral Bumex. On 03/12/2020 patient seen in follow-up on selective care unit, she states her breathing is improving, she did wear BiPAP for several hours last night, she is currently on 5 L of oxygen the pulse ox of 92%, yesterday we switched her over to IV Lasix, which is currently at 40 mg every 12 hours, and patient has produced 1.1 L in urine output over the last 24 hours, she is in negative fluid balance, however her lungs are still positive for diffuse crackles throughout, and she still has lower extremity edema, her echocardiogram has been completed showing moderate concentric LVH, EF between 55-60%, mild to moderate aortic valve sclerosis, moderate aortic stenosis, moderate mitral stenosis, moderate pulmonary hypertension, right-sided pressures of 46.3 mmHg. Patient has been nothing by mouth after midnight for EGD today with Dr. Navarro. Today's hemoglobin is 7.6, patient states her last stool was yesterday, no active bleeding overnight. On 03/13/2020 patient is seen in follow-up on selective care unit, she is currently on BiPAP, which she has been wearing at bedtime, patient tolerating it very well, she states she has a home BiPAP unit which she wears. She states since yesterday her breathing is improving, community patient wears 5 L of oxygen the pulse ox of 91%, and some still reveal some scattered which appeared to be improved on today's exam. Patient remains on IV Lasix at 40 mg every 12 hours. Patient is diuresing, still has some residual edema in lower extremities. 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 Today's hemoglobin is 8.4, electrolytes were reviewed as well, CO2 is at 43, BUN of 15, creatinine 0.92, sodium is 141, potassium is 4.3 On 03/14/2020 patient seen in follow-up on selective care unit. Patient is awake and alert, in no acute distress, apparently last evening patient had an episode of worsening dyspnea, and chest x-ray was obtained showing congestive heart failure, with some pulmonary vascular congestion and slight blunting of the costophrenic angles consistent with small bilateral pleural effusions. Patient remains on IV Lasix, 40 mg every 12 hours, yesterday we gave her a couple doses of Diamox, today's labs have been reviewed, showing sodium of 137, potassium 4.3, chloride is 93, CO2 is 40, BUN 16 creatinine is 1.05. White count is within normal limits and 9.5, she's had no fever or chills. Follow-up chest x-ray this morning shows fluid volume overload, congestive heart failure, and patient still has diffuse crackles on today's exam, she did wear BiPAP support last night, she is currently 5 L of oxygen. She is awake, alert, she said that presented to the patient, she states her breathing is improving this morning. She has been voiding, she is using the bedside commode, get the bedside commode tolerating it well. Has lower extremity edema. No complaints of chest pain. Objective - Vital Signs Vital signs: Vital Signs Temp 97.1 F L 03/14/20 07:00 Pulse 68 03/14/20 12:10 Resp 16 03/14/20 08:00 BP 120/50 03/14/20 07:00 Pulse Ox 94 L 03/14/20 04:48 Intake & Output 03/13/20 03/14/20 03/14/20 18:59 06:59 18:59 Intake Total 860 240 Output Total 200 1000 300 Balance 660 -1000 -60 Weight 97.5 kg Intake: Intake, IV Titration 100 Amount Sodium Ferric Gluconat- 100 Sucrose 125 mg In Sodium Chloride 0.9% 100 ml @ 100 mls/hr IVPB ONCE ONE Rx#:[id number] Oral 760 240 Output: Urine 200 1000 300 Other: Voiding Method Bedside Commode Bedside Commode # Voids 3 1 2 - Exam GENERAL EXAM: Alert, very pleasant, 65-year-old white female, sitting up in a demented, currently on 5 L of oxygen with pulse ox of 91% comfortable in no apparent distress. HEAD: Normocephalic/atraumatic. EYES: Normal reaction of pupils, equal size. Conjunctiva pink, sclera white. NOSE: Clear with pink turbinates. THROAT: No erythema or exudates. NECK: No masses, no JVD, no thyroid enlargement, no adenopathy. CHEST: No chest wall deformity. Symmetrical expansion. LUNGS: Equal air entry with diffuse coarse crackles throughout the lung phelps CVS: Regular rate and rhythm, normal S1 and S2, no gallops, no murmurs, no rubs ABDOMEN: Soft, nontender. No hepatosplenomegaly, normal bowel sounds, no guarding or rigidity. EXTREMITIES: No clubbing, 1+ lower extremity pretibial ankle and pedal edema, no cyanosis, 2+ pulses and upper and lower extremities. MUSCULOSKELETAL: Muscle strength and tone normal. SPINE: No scoliosis or deformity SKIN: No rashes CENTRAL NERVOUS SYSTEM: Alert and oriented -3. No focal deficits, tone is normal in all 4 extremities. PSYCHIATRIC: Alert and oriented -3. Appropriate affect. Intact judgment and insight. - Labs CBC & Chem 7: 03/14/20 09:05 03/14/20 09:05 Labs: Abnormal Lab Results - Last 24 Hours (Table) 03/13/20 03/13/20 03/13/20 Range/Units 16:56 17:50 20:37 RBC (3.80-5.40) m/uL Hgb (11.4-16.0) gm/dL Hct (34.0-46.0) % MCHC (31.0-37.0) g/dL RDW (11.5-15.5) % ABG pH 7.25 L (7.35-7.45) ABG pCO2 94 H* (35-45) mmHg ABG HCO3 41 H* (21-25) mmol/L ABG Total CO2 43 H (19-24) mmol/L Chloride (98-107) mmol/L Carbon Dioxide (22-30) mmol/L Creatinine (0.52-1.04) mg/dL Glucose (74-99) mg/dL POC Glucose (mg/dL) 284 H 258 H (75-99) mg/dL Total Protein (6.3-8.2) g/dL Albumin (3.5-5.0) g/dL 03/14/20 03/14/20 03/14/20 Range/Units 06:20 09:05 09:05 RBC 2.88 L (3.80-5.40) m/uL Hgb 7.4 L (11.4-16.0) gm/dL Hct 26.6 L (34.0-46.0) % MCHC 28.0 L (31.0-37.0) g/dL RDW 18.4 H (11.5-15.5) % ABG pH (7.35-7.45) ABG pCO2 (35-45) mmHg ABG HCO3 (21-25) mmol/L ABG Total CO2 (19-24) mmol/L Chloride 93 L (98-107) mmol/L Carbon Dioxide 40 H (22-30) mmol/L Creatinine 1.05 H (0.52-1.04) mg/dL Glucose 290 H (74-99) mg/dL POC Glucose (mg/dL) 270 H (75-99) mg/dL Total Protein 5.8 L (6.3-8.2) g/dL Albumin 3.1 L (3.5-5.0) g/dL 03/14/20 Range/Units 11:47 RBC (3.80-5.40) m/uL Hgb (11.4-16.0) gm/dL Hct (34.0-46.0) % MCHC (31.0-37.0) g/dL RDW (11.5-15.5) % ABG pH (7.35-7.45) ABG pCO2 (35-45) mmHg ABG HCO3 (21-25) mmol/L ABG Total CO2 (19-24) mmol/L Chloride (98-107) mmol/L Carbon Dioxide (22-30) mmol/L Creatinine (0.52-1.04) mg/dL Glucose (74-99) mg/dL POC Glucose (mg/dL) 320 H (75-99) mg/dL Total Protein (6.3-8.2) g/dL Albumin (3.5-5.0) g/dL Assessment and Plan Plan: Assessment: #1. Acute on chronic hypoxic respiratory failure related to fluid volume overload, acute exacerbation of CHF with diastolic dysfunction, patient is feeling better after dose of Lasix, requiring BiPAP #2. Acute on chronic hypercapnic respiratory failure related to fluid volume overload, acute exacerbation of CHF #2. Chronic hypoxic rest or a failure related to history of COPD, patient usually wears 2 L of oxygen during the day 3 L of oxygen at night #3. Chronic CHF, with history of valvular disease, we will obtain echocar diogram, patient follows with Dr. Tyson from [place] #4. Acute on chronic anemia, related to GI bleeding and melena, with a recent history of endoscopic evaluation and small bowel capsule endoscopy at [facility] which revealed small bowel bleeding status post cauterization. Status post transfusion with 3 units of packed blood cells #5. Diabetes mellitus 2 diabetic neuropathy #6. Obstructive sleep apnea on CPAP #7. Hypothyroidism #8. History of smoking, currently in remission for last 3 months, patient carries 40 years of smoking of one pack a day #9. Depression Plan: Continue IV diuretics over the day, labs have been reviewed, patient still has evidence of CHF, pulmonary vascular congestion on chest x-ray, continue with diuretics, repeat labs including electrolytes and renal profile tomorrow. Utilizes BiPAP support as needed at bedtime, and with increased episodes of dyspnea. Monitor mental status, and for any changes. Continue bronchodilators I performed a history & physical examination of the patient and discussed their management with my nurse practitioner, Rika Hartley. I reviewed the nurse practitioner's note and agree with the documented findings and plan of care. Lung sounds are positive for diminished diffuse crackles throughout The findin gs and the impression was discussed with the patient. I attest to the documentation by the nurse practitioner. Time with Patient: Less than 30
--- NOTE | 2020-03-14 14:01 | P.PN ---
Subjective Progress Note Date: 03/14/20 Principal diagnosis: anemia 65-year-old female with a medical history significant for COPD, diabetes mellitus and CHF as well as a known history of chronic anemia who presents to the hospital due to concerns over lack stools. The patient reports a history of anemia since April. She has had an extensive workup including colonoscopy in the early part of this year which was significant for polyps with no active bleeding noted. She follows with Dr. Nieves and Mimi and underwent a small bowel capsule endoscopy in December with findings of small bowel bleeding. Subsequently in January she was sent to [place] and underwent unsuccessful endoscopy for identification of the bleeding site and was sent to [facility]. One week ago she underwent EGD with which she describes as cautery of bleeding vessels. She undersent EGD with cautery this admission with Dr. Samayoa. 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 Small hiatal hernia, normal proximal jejunum. Patient denies signs of any active bleeding. She denies any bowel movement this morning. She denies any nausea, vomiting, or abdominal pain. She is tolerating a regular diet. Objective - Vital Signs Vital signs: Vital Signs Temp 97.1 F L 03/14/20 07:00 Pulse 68 03/14/20 12:10 Resp 20 03/14/20 12:00 BP 111/51 03/14/20 12:00 Pulse Ox 92 L 03/14/20 12:00 Intake & Output 03/13/20 03/14/20 03/14/20 18:59 06:59 18:59 Intake Total 860 580 Output Total 200 1000 300 Balance 660 -1000 280 Weight 97.5 kg Intake: Intake, IV Titration 100 Amount Sodium Ferric Gluconat- 100 Sucrose 125 mg In Sodium Chloride 0.9% 100 ml @ 100 mls/hr IVPB ONCE ONE Rx#:[id number] Oral 760 580 Output: Urine 200 1000 300 Other: Voiding Method Bedside Commode Bedside Commode # Voids 3 1 2 - Exam General appearance: The patient is alert, oriented, in no acute distress. HET: Head is normocephalic and atraumatic. Conjunctiva pink. Sclera anicteric. Neck: Supple without lymphadenopathy. Trachea midline. Heart: S1 S2. Regular rate and rhythm. Lungs: Clear to auscultation. Mildly diminished. Abdomen: Soft, nontender, Obese, nondistended with bowel sounds. No palpable organomegaly or masses. Extremities: Normal skin color and turgor. Pedal edema. Neurological: No focal deficits. Oriented 3 - Labs CBC & Chem 7: 03/14/20 09:05 03/14/20 09:05 Labs: Abnormal Lab Results - Last 24 Hours (Table) 03/13/20 03/13/20 03/13/20 Range/Units 16:56 17:50 20:37 RBC (3.80-5.40) m/uL Hgb (11.4-16.0) gm/dL Hct (34.0-46.0) % MCHC (31.0-37.0) g/dL RDW (11.5-15.5) % ABG pH 7.25 L (7.35-7.45) ABG pCO2 94 H* (35-45) mmHg ABG HCO3 41 H* (21-25) mmol/L ABG Total CO2 43 H (19-24) mmol/L Chloride (98-107) mmol/L Carbon Dioxide (22-30) mmol/L Creatinine (0.52-1.04) mg/dL Glucose (74-99) mg/dL POC Glucose (mg/dL) 284 H 258 H (75-99) mg/dL Total Protein (6.3-8.2) g/dL Albumin (3.5-5.0) g/dL 03/14/20 03/14/20 03/14/20 Range/Units 06:20 09:05 09:05 RBC 2.88 L (3.80-5.40) m/uL Hgb 7.4 L (11.4-16.0) gm/dL Hct 26.6 L (34.0-46.0) % MCHC 28.0 L (31.0-37.0) g/dL RDW 18.4 H (11.5-15.5) % ABG pH (7.35-7.45) ABG pCO2 (35-45) mmHg ABG HCO3 (21-25) mmol/L ABG Total CO2 (19-24) mmol/L Chloride 93 L (98-107) mmol/L Carbon Dioxide 40 H (22-30) mmol/L Creatinine 1.05 H (0.52-1.04) mg/dL Glucose 290 H (74-99) mg/dL POC Glucose (mg/dL) 270 H (75-99) mg/dL Total Protein 5.8 L (6.3-8.2) g/dL Albumin 3.1 L (3.5-5.0) g/dL 03/14/20 Range/Units 11:47 RBC (3.80-5.40) m/uL Hgb (11.4-16.0) gm/dL Hct (34.0-46.0) % MCHC (31.0-37.0) g/dL RDW (11.5-15.5) % ABG pH (7.35-7.45) ABG pCO2 (35-45) mmHg ABG HCO3 (21-25) mmol/L ABG Total CO2 (19-24) mmol/L Chloride (98-107) mmol/L Carbon Dioxide (22-30) mmol/L Creatinine (0.52-1.04) mg/dL Glucose (74-99) mg/dL POC Glucose (mg/dL) 320 H (75-99) mg/dL Total Protein (6.3-8.2) g/dL Albumin (3.5-5.0) g/dL Assessment and Plan Assessment: (1) Anemia associated with acute blood loss Narrative/Plan: 65-year-old female with an extensive history of anemia with extensive GI evaluation in the past year including colonoscopy, small bowel endoscopy, an upper endoscopy with her last procedure with [facility] 1 week ago per her report with cauterization of bleeding vessels per the patient's report. Of note official reports from these procedures been requested and are pending. She presents with melena and anemia of acute blood loss. Plan is for repeat upper endoscopy for further evaluation. 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 Dr. Pretty Samayoa I performed a history and examination of this patient, discussed the same with the dictator. I agree with the dictator's note ,documented as a scribe. Any additional findings or plans will be noted.
[2020-03-14 16:29] LABS: Glucose,Whole Blood 393 mg/dL (75-99)
[2020-03-14 20:17] LABS: Glucose,Whole Blood 447 mg/dL (75-99)
[2020-03-14] MEDS: ATORVASTATIN 40 MG TAB PO SCH (21:53)
[2020-03-14] MEDS: MONTELUKAST 10 MG TAB PO SCH (21:53)
[2020-03-14] MEDS: INSULIN DETEMIR (LEVEMIR) 100 UNIT/ML SYR SQ SCH (21:55)
[2020-03-15 07:23] LABS: Glucose,Whole Blood 426 mg/dL (75-99)
[2020-03-15] MEDS: INSULIN ASPART (NovoLOG) 100 UNIT/ML VIAL SQ SCH ×7 (07:26→21:40)
[2020-03-15] MEDS: SYMBICORT 160-4.5 MCG INHALER INHALATION SCH ×2 (08:08→19:27)
[2020-03-15] MEDS: ALBUTEROL NEBULIZED 2.5 MG/3 ML INHALATION PRN ×3 (08:08→15:06)
[2020-03-15 08:22] LABS: Anisocytosis Slight; HCT 29.3 % (34.0-46.0); HGB 7.9 gm/dL (11.4-16.0); Hypochromasia Marked; MCH 25.6 pg (25.0-35.0); MCV 94.6 fL (80.0-100.0); Macrocytosis Slight; Mean Platelet Volume 7.4; Platelet Count 333 k/uL (150-450); Poikilocytosis Moderate; RBC 3.09 m/uL (3.80-5.40); RDW 19.7 % (11.5-15.5); WBC 11.9 k/uL (3.8-10.6)
[2020-03-15] MEDS: PANTOPRAZOLE 40 MG/10 ML VIAL IVP SCH ×2 (09:22→21:29)
[2020-03-15] MEDS: methylPREDNISolone SOD SUCCI 40 MG/ML 1 ML VIAL IV SCH (09:22)
[2020-03-15] MEDS: FLUoxetine HCL 20 MG CAP PO SCH (09:23)
[2020-03-15] MEDS: LEVOTHYROXINE 125 MCG TAB PO SCH (09:23)
[2020-03-15] MEDS: FUROSEMIDE 10 MG/ML 4 ML VIAL IV SCH ×2 (09:23→21:29)
[2020-03-15] MEDS: PREGABALIN 100 MG CAP PO SCH ×2 (09:23→21:30)
[2020-03-15] MEDS: METOPROLOL TARTRATE 50 MG TAB PO SCH ×2 (09:23→21:30)
[2020-03-15] MEDS: GLIMEPIRIDE 2 MG TAB PO SCH (09:23)
[2020-03-15] MEDS: POTASSIUM CHLORIDE ER 10 MEQ TAB.ER.PRT PO SCH ×2 (09:23→21:30)
[2020-03-15] MEDS: amLODIPine 10 MG TAB PO SCH ×2 (09:23→10:01)
[2020-03-15] MEDS: SENNOSIDES-DOCUSATE SODIUM 1 EACH TAB PO SCH ×3 (09:23→21:30)
[2020-03-15] MEDS: methocarbamoL 500 MG TAB PO SCH ×3 (09:23→21:30)
[2020-03-15] MEDS: LINAGLIPTIN 5 MG TABLET PO SCH (09:23)
[2020-03-15] MEDS: ISOSORBIDE MONONITRATE ER 30 MG TAB.ER.24H PO SCH (09:23)
[2020-03-15] MEDS: polyethylene glycoL 3350 17 GM POWD.PACK PO SCH (09:24)
--- NOTE | 2020-03-15 10:27 | PN ---
PROGRESS NOTE DATE OF DICTATION: March 15, 2020 Patient is a 65-year-old pleasant white female admitted to hospital with anemia and black tarry stools. She underwent an upper endoscopy/enteroscopy 2 days ago and was noted to have a distal duodenal angiectasia that was cauterized. The patient is doing better. She still had 1 dark stool last night. Overall she is doing good. Still has some shortness of breath related to her COPD. PHYSICAL EXAMINATION: Appears comfortable. No apparent distress. Vital signs stable. Blood pressure is 143/62, pulse rate 80, temperature 98. HEENT examination unremarkable. Conjunctivae pink. Sclerae anicteric. Oral cavity no lesions. NECK no JVD. No lymph node enlargement. CHEST was clear to auscultation. HEART: Regular rate and rhythm. ABDOMEN: Soft. Bowel sounds are positive. No organomegaly. EXTREMITIES: No pedal edema. NEUROLOGIC: Alert and oriented x3. No focal deficits. LABS: From today WBC is 11.9, hemoglobin 7.9. Platelets normal. IMPRESSION: 1. Recurrent anemia/gastrointestinal bleed status post EGD/enteroscopy 2 days ago that showed nonbleeding duodenal angiectasia that was cauterized. The patient remains stable. No further bleeding. 2. Exacerbation of chronic obstructive pulmonary disease. 3. History of sleep apnea. 4. Hypertension. 5. Hyperlipidemia. 6. History of diabetes mellitus. RECOMMENDATIONS: 1. Monitor CBC. 2. Advance diet as tolerated. 3. Continue management of her COPD as per the marketing sales supervisor. 4. We will follow with you closely. Thank you for this consultation. MMODL / IJN: [id number] /
--- NOTE | 2020-03-15 11:27 | P.PN ---
Subjective Progress Note Date: 03/15/20 This is a 65-year-old female patient of Dr. Deras with past medical history of diabetes mellitus type 2, diabetic neuropathy, COPD, hypertension, obstructive sleep apnea, hypothyroidism. Patient has had ongoing problems with GI bleed and was seen by Dr. Nieves GI physician and [place]. She had a capsule endoscopy at the office and found ulcers. Patient underwent an EGD and could not get to all of the ulcers and patient was then transferred to [place] for repeat EGD. This will could not be completed at [place] and patient was subsequently transferred [facility] and she did have some cauterization done and was discharged home. Unfortunately, patient is continued to have black stools which is actually increased in frequency. She also has had increased shortness of breath, orthopnea and cough. No fever or chills, no chest pain. She utilized BiPAP last night which seemed to help her shortness of breath. Patient presented to [facility] emergency center as she was sent in because her hemoglobin was less than 7 as an outpatient and she required transfusion. She was afebrile, heart rate 87, blood pressure 130/54 pulse ox 98% on room air. Initial hemoglobin 6.1 and patient has been transfused 1 unit of packed RBCs. Repeat hemoglobin this morning is 6.7 and a second unit of packed RBCs has been ordered. Other lab work revealed WBC of 12.1. CO2 35, BUN 25 and creatinine 1.1, blood sugar 221. She has unknown hemoglobin A1c of 5.2 in the outpatient setting. Lactic acid 1.7, troponin negative. ProBNP 1590. Chest x-ray revealed evidence of heart failure. Atheromatosis aorta. EKG sinus rhythm. 03/10: Patient evaluated this morning, sitting up in bed. She received a total of 3 packed RBCs, repeat hemoglobin 8.1, hematocrit 27.9. Other lab work shows WBC 1.3, CO2 41, BUN 17, creatinine 0.78, blood sugar 109. She still has complaints of shortness of breath with exertion. Vital signs are stable, she is afebrile temp 97.0, heart rate 73, respiratory 17, blood pressure 103/76. GI on consult. 03/11: Patient has been seen by GI with plan for EGD today. Patient is seen today on BiPAP. She is utilizing this while sleeping. She denies having any abdominal tenderness. She did have a bowel movement that was blood-tinged. Repeat hemoglobin is 7.6. CO2 42. Blood sugars running between 128 and 279. 03/12: Patient is currently undergoing echocardiogram. Patient states that she is feeling fine today. Breathing is improved from yesterday. She is on nasal cannula O2. Patient was seen yesterday by pulmonary medicine and oral Bumex c hanged to IV Lasix of 40 mg every 12 hours. Patient is status post 2 doses of Ferrlecit. Hemoglobin today is 7.6. Blood sugars are running anywhere between 151 and 277. Echocardiogram reveals EF of 55-60%, moderate aortic stenosis, mild to moderate aortic valve sclerosis, moderate mitral stenosis, mild tricuspid regurgitation, moderate pulmonary hypertension. Chest x-ray reveals cardiomegaly. Mild stable bilateral lower lobe infiltrates. Correlate for atelectasis. Incentive spirometry will be added. Patient has been rescheduled for EGD today. Pulse ox 91% on 4 L nasal cannula, heart rate 79, afebrile, blood pressure 128/57. 9: Yesterday, the patient underwent EGD with Dr. 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 Patient was cleared to start diet and advance as tolerated. Patient is still on BiPAP today. She states her breathing is a little bit better but not much. We will order another dose of Ferrlecit today. Patient started on Solu-Medrol 40 mg IV every 8 hours. Patient is asking to go to [facility] at discharge and disease case manager rn updated. Covid testing ordered. Patient has been afebrile, heart rate 74, blood pressure 122/56, pulse ox 96% on BiPAP. Repeat hemoglobin 8.4, CO2 43. 9/: Patient has been afebrile, heart rate 70, blood pressure 120/50, patient is currently on BiPAP with continued shortness of breath. Repeat blood work reveals WBC 9.5, hemoglobin 7.4, CO2 40, BUN 1.05. Blood sugars are running between 270 and 320. She is currently on Solu-Medrol 40 mg IV every 8 hours. Scheduled NovoLog 5 units with each meal will be added. Diamox was added yesterday by pulmonary medicine. Repeat chest x-ray reveals early volume overload or heart failure. Discussed discharge planning with the patient and family would like patient to go to [facility]. After discussion, patient is agreeable to go to [facility] for subacute rehab. Patient will require close monitoring after discharge. Authorization process will be started today in anticipation of probable discharge on Tuesday. 03/15: Patient is found sitting up at the side of the bed in no acute distress. Patient has no complaints or concerns at this time. Blood glucose was 420 6 in the AM. Patient has been on steroids. She states she is able to breathe better has been up and walking in the room without any difficulties. The plan is for the patient to be discharged to [facility] on Tuesday. Hemoglobin was 7.9 this morning. REVIEW OF SYSTEMS Constitutional: No fever, no chills, no night sweats. No weight change. Reports weakness, Reports fatigue. No daytime sleepiness. EENT: No headache. No blurred vision or double vision, no loss of vision. No loss of Hearing, no ringing in the ears, no dizziness. No nasal drainage or congestion. No epistaxis. No sore throat. Lungs: Reports shortness of breath, no cough, no sputum production. No wheezing. Cardiovascular: No chest pain, reports lower extremity edema. No palpitations. No paroxysmal nocturnal dyspnea. No orthopnea. No lightheadedness or dizziness. No syncopal episodes. Abdominal: No abdominal pain. No nausea, vomiting. No diarrhea. No constipation. Denies bloody or tarry stools. Reports loss of appetite. Genitourinary: No dysuria, increased frequency, urgency. No urinary retention. Musculoskeletal: No myalgias. Reports muscle weakness, no gait dysfunction, no frequent falls. No back pain. No neck pain. Integumentary: No wounds, no lesions. No rash or pruritus. No unusual bruising. No change in hair or nails. Neurologic: No aphasia. No facial droop. No change in mentation. No head injury. No headache. No paralysis. No paresthesia. Psychiatric: No depression. No anxiety. No mood swings. Endocrine: No abnormal blood sugars. No weight change. No excessive sweating or thirst. No cold intolerance. PHYSICAL EXAMINATION Gen: This is a 65-year-old female. She is resting in bed and appears to be comfortable at rest. Patient is utilizing BiPAP. HEENT: Head is atraumatic, normocephalic. Pupils equal, round. Sclerae is anicteric. Conjunctiva pale. NECK: Supple. No JVD. No lymphadenopathy. No thyromegaly. LUNGS: Clear to auscultation. No wheezes or rhonchi. No intercostal retractions. HEART: Regular rate and rhythm. Systolic murmur. ABDOMEN: Soft. Bowel sounds are present. No masses. No tenderness. EXTREMITIES: 1+ pedal edema. No calf tenderness. Dorsalis pedis +2 bilaterally. NEUROLOGICAL: Patient is awake, alert and oriented x3. Cranial nerves 2 through 12 are grossly intact. ASSESSMENT AND PLAN 1. Acute on chronic GI bleed with acute blood loss anemia. Patient has been transfused total of 3 units of packed RBCs. Consult with GI appreciated EGD performed findings: 1. 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 Hiatal hernia,. Protonix 40 mg IV push twice daily. 2. Acute on chronic hypoxic respiratory failure, POA, secondary to anemia, acute diastolic heart failure. Patient is on IV Lasix 40 mg every 12 hours, Diamox 250 mg IV every 12 hours. Monitor I&O, daily weights, renal function and electrolytes. 3. Diabetes mellitus type 2 with diabetic neuropathy. Levemir increased to 40 units at bedtime. Start Humalog 5 units with meals. Resume Glimepiride 2 mg daily. Continue NovoLog scale, Tradjenta. DC Solu-Medrol 4. Diabetic neuropathy. Continue Lyrica. 5. COPD. Continue Symbicort, albuterol as needed, Singulair 10 mg at bedtime. 6. Hypertension. Continue Norvasc 10 mg daily, Lopressor 50 mg twice daily. 7. Acute on chronic diastolic heart failure. Continue as above. 8. Hyperlipidemia. Continue Lipitor 40 mg daily. 9. Obstructive sleep apnea. Continue BiPAP at night. 10. Restless leg syndrome. Continue Requip 2 mg twice daily. 11. Recurrent depression. Continue Prozac 20 mg daily. 12. Valvular heart disease with moderate aortic stenosis, moderate mitral stenosis. Patient will need follow-up with cardiology. 13. Moderate pulmonary hypertension. 14. GI prophylaxis. Protonix. 15. DVT prophylaxis. SCDs and FILEMON richardson. Discharge plan: Subacute rehab at [facility] on Tuesday Impression and plan of care have been directed as dictated by the signing physician. Brandy Villatoro nurse practitioner acting as scribe for signing physician. Objective - Vital Signs Vital signs: Vital Signs Temp 98.0 F 03/15/20 08:00 Pulse 80 03/15/20 08:22 Resp 18 03/15/20 08:00 BP 106/43 03/15/20 08:00 Pulse Ox 96 03/15/20 08:00 Intake & Output 03/14/20 03/15/20 03/15/20 18:59 06:59 18:59 Intake Total 820 120 Output Total 300 2650 Balance 520 -2650 120 Weight 114.8 kg Intake: Oral 820 120 Output: Urine 300 2650 Other: Voiding Method Bedside Commode Bedside Commode Bedside Commode # Voids 4 2 - Labs CBC & Chem 7: 03/15/20 07:30 03/14/20 09:05 Labs: Abnormal Lab Results - Last 24 Hours (Table) 03/14/20 03/14/20 03/14/20 Range/Units 11:47 16:28 20:16 WBC (3.8-10.6) k/uL RBC (3.80-5.40) m/uL Hgb (11.4-16.0) gm/dL Hct (34.0-46.0) % MCHC (31.0-37.0) g/dL RDW (11.5-15.5) % POC Glucose (mg/dL) 320 H 393 H 447 H (75-99) mg/dL 03/15/20 03/15/20 Range/Units 07:20 07:30 WBC 11.9 H (3.8-10.6) k/uL RBC 3.09 L (3.80-5.40) m/uL Hgb 7.9 L (11.4-16.0) gm/dL Hct 29.3 L (34.0-46.0) % MCHC 27.0 L (31.0-37.0) g/dL RDW 19.7 H (11.5-15.5) % POC Glucose (mg/dL) 426 H (75-99) mg/dL
[2020-03-15 12:27] LABS: Glucose,Whole Blood 445 mg/dL (75-99)
--- NOTE | 2020-03-15 12:48 | P.PN ---
Subjective Progress Note Date: 03/15/20 Principal diagnosis: Acute on chronic hypoxic respiratory failure secondary to diastolic congestive heart failure 65-year-old white female patient with past medical history of COPD, with chronic hypoxic respiratory failure patient wears 2 L of oxygen during the day, and 3 L at bedtime, chronic CHF, with unknown EF, history of valvular heart disease (not known what valve), diabetes mellitus type 2, with diabetic neuropathy, hypertension, obstructive sleep apnea on CPAP, hypothyroidism and a recent history of GI bleeding, and patient is status post hospitalization and endosc opic evaluation with EGD at the [facility]. She states she was found to have active bleeding in the small bowel after she had a small bowel capsule endoscopy. The bleeding vessels were cauterized during EGD. Patient presented back to the hospital on 03/08/2020 for evaluation of ongoing bleeding with evidence of black tarry stools. In addition she was having increased shortness of breath. Apparently she was having her hemoglobin checked on an outpatient basis and she was called for hemoglobin of 6.1 and was told to go to the hospital for a blood transfusion. Patient denies any chest pain, denied any cough. She does report some increased leg edema from her baseline. She was pa ssing some dark stools at home. Patient was transfused with a total of 3 units of packed red blood cells, and today's hemoglobin is 7.6. Her initial chest x- ray showed evidence of pulmonary vascular congestion, less than patient developed a worsening shortness of breath, she was given an extra dose of Lasix for evidence of fluid overload, was placed on BiPAP. We were asked to see the patient in evaluation for his shortness of breath. Currently she is off the BiPAP, she is on 4 L of oxygen with pulse ox of 91%, lung sounds to reveal diffuse coarse crackles throughout the lung phelps, she has increased peripheral edema, but no acute distress, she states since dose of Lasix her breathing has improved. She is currently on oral Bumex. On 03/12/2020 patient seen in follow-up on selective care unit, she states her breathing is improving, she did wear BiPAP for several hours last night, she is currently on 5 L of oxygen the pulse ox of 92%, yesterday we switched her over to IV Lasix, which is currently at 40 mg every 12 hours, and patient has produced 1.1 L in urine output over the last 24 hours, she is in negative fluid balance, however her lungs are still positive for diffuse crackles throughout, and she still has lower extremity edema, her echocardiogram has been completed showing moderate concentric LVH, EF between 55-60%, mild to moderate aortic valve sclerosis, moderate aortic stenosis, moderate mitral stenosis, moderate pulmonary hypertension, right-sided pressures of 46.3 mmHg. Patient has been nothing by mouth after midnight for EGD today with Dr. Navarro. Today's hemoglobin is 7.6, patient states her last stool was yesterday, no active bleeding overnight. On 03/13/2020 patient is seen in follow-up on selective care unit, she is currently on BiPAP, which she has been wearing at bedtime, patient tolerating it very well, she states she has a home BiPAP unit which she wears. She states since yesterday her breathing is improving, community patient wears 5 L of oxygen the pulse ox of 91%, and some still reveal some scattered which appeared to be improved on today's exam. Patient remains on IV Lasix at 40 mg every 12 hours. Patient is diuresing, still has some residual edema in lower extremities. 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 Today's hemoglobin is 8.4, electrolytes were reviewed as well, CO2 is at 43, BUN of 15, creatinine 0.92, sodium is 141, potassium is 4.3 On 03/14/2020 patient seen in follow-up on selective care unit. Patient is awake and alert, in no acute distress, apparently last evening patient had an episode of worsening dyspnea, and chest x-ray was obtained showing congestive heart failure, with some pulmonary vascular congestion and slight blunting of the costophrenic angles consistent with small bilateral pleural effusions. Patient remains on IV Lasix, 40 mg every 12 hours, yesterday we gave her a couple doses of Diamox, today's labs have been reviewed, showing sodium of 137, potassium 4.3, chloride is 93, CO2 is 40, BUN 16 creatinine is 1.05. White count is within normal limits and 9.5, she's had no fever or chills. Follow-up chest x-ray this morning shows fluid volume overload, congestive heart failure, and patient still has diffuse crackles on today's exam, she did wear BiPAP support last night, she is currently 5 L of oxygen. She is awake, alert, she said that presented to the patient, she states her breathing is improving this morning. She has been voiding, she is using the bedside commode, get the bedside commode tolerating it well. Has lower extremity edema. No complaints of chest pain. The patient is seen today 03/15/2020 follow-up on the selective care unit. She is currently sitting up at the bedside. Awake and alert in no acute distress. Breathing easier today compared to yesterday. She did utilize the BiPAP last evening and earlier this morning after breakfast. Continues to diurese well. Currently on 5 L/m per nasal cannula with O2 saturations in the 90s. White count 11.9. Hemoglobin 7.9. Continued on albuterol, Symbicort inhalations, IV Solu-Medrol, IV diuretics in the form of Lasix 40 mg every 12 hours. Objective - Vital Signs Vital signs: Vital Signs Temp 98.0 F 03/15/20 08:00 Pulse 84 03/15/20 11:59 Resp 18 03/15/20 08:00 BP 106/43 03/15/20 08:00 Pulse Ox 96 03/15/20 08:00 Intake & Output 03/14/20 03/15/20 03/15/20 18:59 06:59 18:59 Intake Total 820 120 Output Total 300 2650 1800 Balance 520 -2650 -1680 Weight 114.8 kg Intake: Oral 820 120 Output: Urine 300 2650 1800 Other: Voiding Method Bedside Commode Bedside Commode Bedside Commode # Voids 4 2 - Exam GENERAL EXAM: Alert, very pleasant, 65-year-old morbidly obese female patient, sitting up at the bedside, currently on 5 L of oxygen with pulse ox of 96% comfortable in no apparent distress. HEAD: Normocephalic/atraumatic. EYES: Normal reaction of pupils, equal size. Conjunctiva pink, sclera white. NOSE: Clear with pink turbinates. THROAT: No erythema or exudates. NECK: No masses, no JVD, no thyroid enlargement, no adenopathy. CHEST: No chest wall deformity. Symmetrical expansion. LUNGS: Equal air entry with diffuse coarse crackles throughout the lung phelps CVS: Regular rate and rhythm, normal S1 and S2, no gallops, no murmurs, no rubs ABDOMEN: Soft, nontender. No hepatosplenomegaly, normal bowel sounds, no guarding or rigidity. EXTREMITIES: No clubbing, 1+ lower extremity pretibial ankle and pedal edema, no cyanosis, 2+ pulses and upper and lower extremities. MUSCULOSKELETAL: Muscle strength and tone normal. SPINE: No scoliosis or deformity SKIN: No rashes CENTRAL NERVOUS SYSTEM: Alert and oriented -3. No focal deficits, tone is normal in all 4 extremities. PSYCHIATRIC: Alert and oriented -3. Appropriate affect. Intact judgment and insight. - Labs CBC & Chem 7: 03/15/20 07:30 03/14/20 09:05 Labs: Abnormal Lab Results - Last 24 Hours (Table) 03/14/20 03/14/20 03/15/20 Range/Units 16:28 20:16 07:20 WBC (3.8-10.6) k/uL RBC (3.80-5.40) m/uL Hgb (11.4-16.0) gm/dL Hct (34.0-46.0) % MCHC (31.0-37.0) g/dL RDW (11.5-15.5) % POC Glucose (mg/dL) 393 H 447 H 426 H (75-99) mg/dL 03/15/20 03/15/20 Range/Units 07:30 12:22 WBC 11.9 H (3.8-10.6) k/uL RBC 3.09 L (3.80-5.40) m/uL Hgb 7.9 L (11.4-16.0) gm/dL Hct 29.3 L (34.0-46.0) % MCHC 27.0 L (31.0-37.0) g/dL RDW 19.7 H (11.5-15.5) % POC Glucose (mg/dL) 445 H (75-99) mg/dL Assessment and Plan Assessment: #1. Acute on chronic hypoxic respiratory failure related to acute exacerbation of CHF with diastolic dysfunction, diuresing well from IV diuretics, utilizing BiPAP #2. Acute on chronic hypercapnic respiratory failure related to fluid volume overload, acute exacerbation of CHF #2. Chronic hypoxic rest or a failure related to history of COPD, patient usually wears 2 L of oxygen during the day 3 L of oxygen at night #3. Chronic CHF, with history of valvular disease, we will obtain echocardiogram, patient follows with Dr. Tyson from [place] #4. Acute on chronic anemia, related to GI bleeding and melena, with a recent history of endoscopic evaluation and small bowel capsule endoscopy at [facility] which revealed small bowel bleeding status post cauterization. Status post transfusion with 3 units of packed blood cells #5. Diabetes mellitus 2 diabetic neuropathy #6. Obstructive sleep apnea on CPAP #7. Hypothyroidism #8. History of smoking, currently in remission for last 3 months, patient carries 40 years of smoking of one pack a day #9. Depression Plan: The patient was seen and evaluated by Dr. Gomes She continues to diurese well Titrate down the FiO2 as tolerated Increase her activity as tolerated Continue BiPAP as tolerated We will continue to follow I, the cosigning physician, performed a history & physical examination of the patient. Lungs sounds with diffuse rhonchi, crackles in the bilateral posterior bases. Maintaining good O2 saturations in the 90s on 5 L/m per nasal cannula. I discussed the assessment and plan of care with my nurse practitioner, Margoth blandon. I attest to the above note as dictated by her.
[2020-03-15 17:13] LABS: Glucose,Whole Blood 481 mg/dL (75-99)
[2020-03-15 20:55] LABS: Glucose,Whole Blood 461 mg/dL (75-99)
[2020-03-15] MEDS ORDERED: INSULIN ASPART (NovoLOG) 100 UNIT/ML VIAL SQ ONE (21:15)
[2020-03-15] MEDS: INSULIN DETEMIR (LEVEMIR) 100 UNIT/ML SYR SQ SCH (21:29)
[2020-03-15] MEDS: ATORVASTATIN 40 MG TAB PO SCH (21:29)
[2020-03-15] MEDS: MONTELUKAST 10 MG TAB PO SCH (21:30)
[2020-03-16 07:00] LABS: Glucose,Whole Blood 144 mg/dL (75-99)
[2020-03-16 07:40] LABS: Anisocytosis Slight; Basophils % (A) 0 %; Eosinophils % (A) 0 %; HCT 28.4 % (34.0-46.0); HGB 7.9 gm/dL (11.4-16.0); Hypochromasia Marked; Lymphocytes % (A) 16 %; MCH 25.8 pg (25.0-35.0); MCV 92.2 fL (80.0-100.0); Macrocytosis Slight; Monocytes # (A) 1.2 k/uL (0-1.0); Monocytes % (A) 9 %; Neutrophils # (A) 8.8 k/uL (1.3-7.7); Neutrophils % (A) 72 %; Platelet Count 313 k/uL (150-450); Poikilocytosis Moderate; RBC 3.08 m/uL (3.80-5.40); RDW 19.8 % (11.5-15.5); WBC 12.2 k/uL (3.8-10.6)
[2020-03-16 07:51] LABS: Albumin 3.6 g/dL (3.5-5.0); Calcium 9.3 mg/dL (8.4-10.2); Potassium 4.3 mmol/L (3.5-5.1); Total Bilirubin 0.5 mg/dL (0.2-1.3); Total Protein 6.3 g/dL (6.3-8.2)
[2020-03-16] MEDS: ALBUTEROL NEBULIZED 2.5 MG/3 ML INHALATION PRN ×4 (08:03→19:39)
[2020-03-16] MEDS: SYMBICORT 160-4.5 MCG INHALER INHALATION SCH ×2 (08:03→19:39)
[2020-03-16] MEDS: methocarbamoL 500 MG TAB PO SCH ×2 (10:07→21:51)
[2020-03-16] MEDS: FLUoxetine HCL 20 MG CAP PO SCH (10:07)
[2020-03-16] MEDS: LINAGLIPTIN 5 MG TABLET PO SCH (10:08)
[2020-03-16] MEDS: METOPROLOL TARTRATE 50 MG TAB PO SCH ×2 (10:08→21:52)
[2020-03-16] MEDS: PREGABALIN 100 MG CAP PO SCH ×2 (10:08→21:52)
[2020-03-16] MEDS: ISOSORBIDE MONONITRATE ER 30 MG TAB.ER.24H PO SCH (10:08)
[2020-03-16] MEDS: FUROSEMIDE 10 MG/ML 4 ML VIAL IV SCH ×2 (10:09→21:52)
[2020-03-16] MEDS: PANTOPRAZOLE 40 MG/10 ML VIAL IVP SCH ×2 (10:09→21:52)
[2020-03-16] MEDS: GLIMEPIRIDE 2 MG TAB PO SCH (10:09)
[2020-03-16] MEDS: INSULIN ASPART (NovoLOG) 100 UNIT/ML VIAL SQ SCH ×7 (10:10→21:51)
[2020-03-16] MEDS: amLODIPine 10 MG TAB PO SCH (10:10)
[2020-03-16] MEDS: LEVOTHYROXINE 125 MCG TAB PO SCH (10:22)
[2020-03-16] MEDS: POTASSIUM CHLORIDE ER 10 MEQ TAB.ER.PRT PO SCH ×2 (10:22→21:52)
[2020-03-16] MEDS: polyethylene glycoL 3350 17 GM POWD.PACK PO SCH (10:23)
[2020-03-16] MEDS: SENNOSIDES-DOCUSATE SODIUM 1 EACH TAB PO SCH ×2 (10:23→22:03)
--- NOTE | 2020-03-16 11:46 | P.PN ---
Subjective Progress Note Date: 03/16/20 This is a 65-year-old female patient of Dr. Deras with past medical history of diabetes mellitus type 2, diabetic neuropathy, COPD, hypertension, obstructive sleep apnea, hypothyroidism. Patient has had ongoing problems with GI bleed and was seen by Dr. Nieves GI physician and [place]. She had a capsule endoscopy at the office and found ulcers. Patient underwent an EGD and could not get to all of the ulcers and patient was then transferred to [place] for repeat EGD. This will could not be completed at [place] and patient was subsequently transferred [facility] and she did have some cauterization done and was discharged home. Unfortunately, patient is continued to have black stools which is actually increased in frequency. She also has had increased shortness of breath, orthopnea and cough. No fever or chills, no chest pain. She utilized BiPAP last night which seemed to help her shortness of breath. Patient presented to [facility] emergency center as she was sent in because her hemoglobin was less than 7 as an outpatient and she required transfusion. She was afebrile, heart rate 87, blood pressure 130/54 pulse ox 98% on room air. Initial hemoglobin 6.1 and patient has been transfused 1 unit of packed RBCs. Repeat hemoglobin this morning is 6.7 and a second unit of packed RBCs has been ordered. Other lab work revealed WBC of 12.1. CO2 35, BUN 25 and creatinine 1.1, blood sugar 221. She has unknown hemoglobin A1c of 5.2 in the outpatient setting. Lactic acid 1.7, troponin negative. ProBNP 1590. Chest x-ray revealed evidence of heart failure. Atheromatosis aorta. EKG sinus rhythm. 03/10: Patient evaluated this morning, sitting up in bed. She received a total of 3 packed RBCs, repeat hemoglobin 8.1, hematocrit 27.9. Other lab work shows WBC 1.3, CO2 41, BUN 17, creatinine 0.78, blood sugar 109. She still has complaints of shortness of breath with exertion. Vital signs are stable, she is afebrile temp 97.0, heart rate 73, respiratory 17, blood pressure 103/76. GI on consult. 03/11: Patient has been seen by GI with plan for EGD today. Patient is seen today on BiPAP. She is utilizing this while sleeping. She denies having any abdominal tenderness. She did have a bowel movement that was blood-tinged. Repeat hemoglobin is 7.6. CO2 42. Blood sugars running between 128 and 279. 03/12: Patient is currently undergoing echocardiogram. Patient states that she is feeling fine today. Breathing is improved from yesterday. She is on nasal cannula O2. Patient was seen yesterday by pulmonary medicine and oral Bumex c hanged to IV Lasix of 40 mg every 12 hours. Patient is status post 2 doses of Ferrlecit. Hemoglobin today is 7.6. Blood sugars are running anywhere between 151 and 277. Echocardiogram reveals EF of 55-60%, moderate aortic stenosis, mild to moderate aortic valve sclerosis, moderate mitral stenosis, mild tricuspid regurgitation, moderate pulmonary hypertension. Chest x-ray reveals cardiomegaly. Mild stable bilateral lower lobe infiltrates. Correlate for atelectasis. Incentive spirometry will be added. Patient has been rescheduled for EGD today. Pulse ox 91% on 4 L nasal cannula, heart rate 79, afebrile, blood pressure 128/57. 9: Yesterday, the patient underwent EGD with Dr. 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 Patient was cleared to start diet and advance as tolerated. Patient is still on BiPAP today. She states her breathing is a little bit better but not much. We will order another dose of Ferrlecit today. Patient started on Solu-Medrol 40 mg IV every 8 hours. Patient is asking to go to [facility] at discharge and manager case management updated. Covid testing ordered. Patient has been afebrile, heart rate 74, blood pressure 122/56, pulse ox 96% on BiPAP. Repeat hemoglobin 8.4, CO2 43. 9/: Patient has been afebrile, heart rate 70, blood pressure 120/50, patient is currently on BiPAP with continued shortness of breath. Repeat blood work reveals WBC 9.5, hemoglobin 7.4, CO2 40, BUN 1.05. Blood sugars are running between 270 and 320. She is currently on Solu-Medrol 40 mg IV every 8 hours. Scheduled NovoLog 5 units with each meal will be added. Diamox was added yesterday by pulmonary medicine. Repeat chest x-ray reveals early volume overload or heart failure. Discussed discharge planning with the patient and family would like patient to go to [facility]. After discussion, patient is agreeable to go to [facility] for subacute rehab. Patient will require close monitoring after discharge. Authorization process will be started today in anticipation of probable discharge on Tuesday. 03/15: Patient is found sitting up at the side of the bed in no acute distress. Patient has no complaints or concerns at this time. Blood glucose was 420 6 in the AM. Patient has been on steroids. She states she is able to breathe better has been up and walking in the room without any difficulties. The plan is for the patient to be discharged to [facility] on Tuesday. Hemoglobin was 7.9 this morning. 03/16: Patient is found sitting up in bed. She had elevated blood sugars yesterday in the 400s. She was given extra Levemir and increase sliding scale. Patient was DC'd on the Solu-Medrol yesterday also will take approximately 24 hours to see a normalized blood sugars. Patient states that she has not had any history of atrial fibrillation now or in the past. She has not been treated for any either. Patient has been sinus rhythm on the monitor. The plan remains to be discharged on Tuesday to . REVIEW OF SYSTEMS Constitutional: No fever, no chills, no night sweats. No weight change. Reports weakness, Reports fatigue. No daytime sleepiness. EENT: No headache. No blurred vision or double vision, no loss of vision. No loss of Hearing, no ringing in the ears, no dizziness. No nasal drainage or congestion. No epistaxis. No sore throat. Lungs: Reports shortness of breath, no cough, no sputum production. No wheezing. Cardiovascular: No chest pain, reports lower extremity edema. No palpitations. No paroxysmal nocturnal dyspnea. No orthopnea. No lightheadedness or dizziness. No syncopal episodes. Abdominal: No abdominal pain. No nausea, vomiting. No diarrhea. No constipation. Denies bloody or tarry stools. Reports loss of appetite. Genitourinary: No dysuria, increased frequency, urgency. No urinary retention. Musculoskeletal: No myalgias. Reports muscle weakness, no gait dysfunction, no frequent falls. No back pain. No neck pain. Integumentary: No wounds, no lesions. No rash or pruritus. No unusual bruisin g. No change in hair or nails. Neurologic: No aphasia. No facial droop. No change in mentation. No head injury. No headache. No paralysis. No paresthesia. Psychiatric: No depression. No anxiety. No mood swings. Endocrine: No abnormal blood sugars. No weight change. No excessive sweating or thirst. No cold intolerance. PHYSICAL EXAMINATION Gen: This is a 65-year-old female. She is resting in bed and appears to be comfortable at rest. Patient is utilizing BiPAP. HEENT: Head is atraumatic, normocephalic. Pupils equal, round. Sclerae is anicteric. Conjunctiva pale. NECK: Supple. No JVD. No lymphadenopathy. No thyromegaly. LUNGS: Clear to auscultation. No wheezes or rhonchi. No intercostal retractions. HEART: Regular rate and rhythm. Systolic murmur. ABDOMEN: Soft. Bowel sounds are present. No masses. No tenderness. EXTREMITIES: 1+ pedal edema. No calf tenderness. Dorsalis pedis +2 bilaterally. NEUROLOGICAL: Patient is awake, alert and oriented x3. Cranial nerves 2 through 12 are grossly intact. ASSESSMENT AND PLAN 1. Acute on chronic GI bleed with acute blood loss anemia. Patient has been transfused total of 3 units of packed RBCs. Consult with GI appreciated EGD performed findings: 1. 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 Hiatal hernia,. Protonix 40 mg IV push twice daily. 2. Acute on chronic hypoxic respiratory failure, POA, secondary to anemia, acute diastolic heart failure. Patient is on IV Lasix 40 mg every 12 hours, Diamox 250 mg IV every 12 hours. Monitor I&O, daily weights, renal function and electrolytes. 3. Diabetes mellitus type 2 with diabetic neuropathy. Levemir increased to 40 units at bedtime. Additional 15 units of Levemir and increase sliding scale. Solu-Medrol was DC'd approximately 24 hours ago. Blood sugar this morning 144 4. Diabetic neuropathy. Continue Lyrica. 5. COPD. Continue Symbicort, albuterol as needed, Singulair 10 mg at bedtime. 6. Hypertension. Continue Norvasc 10 mg daily, Lopressor 50 mg twice daily. 7. Acute on chronic diastolic heart failure. Continue as above. 8. Hyperlipidemia. Continue Lipitor 40 mg daily. 9. Obstructive sleep apnea. Continue BiPAP at night. 10. Restless leg syndrome. Continue Requip 2 mg twice daily. 11. Recurrent depression. Continue Prozac 20 mg daily. 12. Valvular heart disease with moderate aortic stenosis, moderate mitral steno sis. Patient will need follow-up with cardiology. 13. Moderate pulmonary hypertension. 14. GI prophylaxis. Protonix. 15. DVT prophylaxis. SCDs and FILEMON hose. Discharge plan: Subacute rehab at [facility] on Tuesday Impression and plan of care have been directed as dictated by the signing physic ian. Brandy Villatoro nurse practitioner acting as scribe for signing physician. Objective - Vital Signs Vital signs: Vital Signs Temp 97.5 F L 03/16/20 07:59 Pulse 72 03/16/20 11:37 Resp 18 03/16/20 07:59 BP 130/60 03/16/20 07:59 Pulse Ox 95 03/16/20 07:59 Intake & Output 03/15/20 03/16/20 03/16/20 18:59 06:59 18:59 Intake Total 480 0 Output Total 8007 685 0029 Balance -1320 -600 -1000 Weight 113 kg Intake: Oral 480 0 Output: Urine 2573 311 4968 Other: Voiding Method Bedside Commode Bedside Commode Bedside Commode # Voids 1 # Bowel Movements 1 - Labs CBC & Chem 7: 03/16/20 07:00 03/16/20 07:00 Labs: Abnormal Lab Results - Last 24 Hours (Table) 03/15/20 03/15/20 03/15/20 Range/Units 12:22 17:11 20:54 WBC (3.8-10.6) k/uL RBC (3.80-5.40) m/uL Hgb (11.4-16.0) gm/dL Hct (34.0-46.0) % MCHC (31.0-37.0) g/dL RDW (11.5-15.5) % Neutrophils # (1.3-7.7) k/uL Monocytes # (0-1.0) k/uL Chloride (98-107) mmol/L Carbon Dioxide (22-30) mmol/L BUN (7-17) mg/dL Glucose (74-99) mg/dL POC Glucose (mg/dL) 445 H 481 H 461 H (75-99) mg/dL 03/16/20 03/16/20 03/16/20 Range/Units 06:59 07:00 07:00 WBC 12.2 H (3.8-10.6) k/uL RBC 3.08 L (3.80-5.40) m/uL Hgb 7.9 L (11.4-16.0) gm/dL Hct 28.4 L (34.0-46.0) % MCHC 28.0 L (31.0-37.0) g/dL RDW 19.8 H (11.5-15.5) % Neutrophils # 8.8 H (1.3-7.7) k/uL Monocytes # 1.2 H (0-1.0) k/uL Chloride 96 L (98-107) mmol/L Carbon Dioxide 40 H (22-30) mmol/L BUN 33 H (7-17) mg/dL Glucose 131 H (74-99) mg/dL POC Glucose (mg/dL) 144 H (75-99) mg/dL
--- NOTE | 2020-03-16 12:04 | PN ---
PROGRESS NOTE The patient is a 65-year-old pleasant white female admitted to hospital with exacerbation of COPD and severe symptomatic anemia. 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 Since then, she has been doing well. She has no further episodes of black tarry stools. He continues to have some shortness of breath. Remains on BiPAP as needed. This morning she is doing all right. No abdominal pain. No nausea, vomiting. PHYSICAL EXAMINATION: Blood pressure 106/43, pulse rate 84, temperature 98. HEENT examination unremarkable. Conjunctivae pink. Sclerae anicteric. Oral cavity no lesions. NECK no JVD or lymph node enlargement. CHEST: Decreased breath sounds bilaterally. HEART: Regular rate and rhythm. ABDOMEN: Soft. Bowel sounds are positive. No organomegaly. EXTREMITIES: No pedal edema. NEURO: She is alert and oriented x3. No focal deficits. LABS: From today WBC 12.2, hemoglobin 7.9, platelets 313. Basic metabolic panel is within normal limits. BUN is 33 and creatinine is 1.3. IMPRESSION: 1. Anemia with gastrointestinal bleed. The patient with intermittent episodes of melena, status post EGD/enteroscopy with cautery of the duodenal angioectasia 2 days ago. Hemoglobin currently remains stable. She received 3 units of PRBC transfusion during this hospitalization. Today hemoglobin 7.9 g/dL. 2. Exacerbation of chronic obstructive pulmonary disease. 3. Chronic respiratory failure. 4. Congestive heart failure. RECOMMENDATIONS: 1. Continue to monitor CBC on a daily basis. 2. Continue with symptomatic and supportive care. 3. Laxatives as needed for chronic constipation. 4. Continue with Protonix 40 mg daily for gastroesophageal reflux symptoms. 5. We will follow with you closely. Thank you for this consultation. MMODL / IJN: [id number] /
[2020-03-16 12:20] LABS: Glucose,Whole Blood 173 mg/dL (75-99)
--- NOTE | 2020-03-16 12:54 | P.PN ---
Subjective Progress Note Date: 03/16/20 Principal diagnosis: Acute on chronic hypoxic respiratory failure secondary to diastolic congestive heart failure 65-year-old white female patient with past medical history of COPD, with chronic hypoxic respiratory failure patient wears 2 L of oxygen during the day, and 3 L at bedtime, chronic CHF, with unknown EF, history of valvular heart disease (not known what valve), diabetes mellitus type 2, with diabetic neuropathy, hypertension, obstructive sleep apnea on CPAP, hypothyroidism and a recent history of GI bleeding, and patient is status post hospitalization and endosc opic evaluation with EGD at the [facility]. She states she was found to have active bleeding in the small bowel after she had a small bowel capsule endoscopy. The bleeding vessels were cauterized during EGD. Patient presented back to the hospital on 03/08/2020 for evaluation of ongoing bleeding with evidence of black tarry stools. In addition she was having increased shortness of breath. Apparently she was having her hemoglobin checked on an outpatient basis and she was called for hemoglobin of 6.1 and was told to go to the hospital for a blood transfusion. Patient denies any chest pain, denied any cough. She does report some increased leg edema from her baseline. She was pa ssing some dark stools at home. Patient was transfused with a total of 3 units of packed red blood cells, and today's hemoglobin is 7.6. Her initial chest x- ray showed evidence of pulmonary vascular congestion, less than patient developed a worsening shortness of breath, she was given an extra dose of Lasix for evidence of fluid overload, was placed on BiPAP. We were asked to see the patient in evaluation for his shortness of breath. Currently she is off the BiPAP, she is on 4 L of oxygen with pulse ox of 91%, lung sounds to reveal diffuse coarse crackles throughout the lung phelps, she has increased peripheral edema, but no acute distress, she states since dose of Lasix her breathing has improved. She is currently on oral Bumex. On 03/12/2020 patient seen in follow-up on selective care unit, she states her breathing is improving, she did wear BiPAP for several hours last night, she is currently on 5 L of oxygen the pulse ox of 92%, yesterday we switched her over to IV Lasix, which is currently at 40 mg every 12 hours, and patient has produced 1.1 L in urine output over the last 24 hours, she is in negative fluid balance, however her lungs are still positive for diffuse crackles throughout, and she still has lower extremity edema, her echocardiogram has been completed showing moderate concentric LVH, EF between 55-60%, mild to moderate aortic valve sclerosis, moderate aortic stenosis, moderate mitral stenosis, moderate pulmonary hypertension, right-sided pressures of 46.3 mmHg. Patient has been nothing by mouth after midnight for EGD today with Dr. Navarro. Today's hemoglobin is 7.6, patient states her last stool was yesterday, no active bleeding overnight. On 03/13/2020 patient is seen in follow-up on selective care unit, she is currently on BiPAP, which she has been wearing at bedtime, patient tolerating it very well, she states she has a home BiPAP unit which she wears. She states since yesterday her breathing is improving, community patient wears 5 L of oxygen the pulse ox of 91%, and some still reveal some scattered which appeared to be improved on today's exam. Patient remains on IV Lasix at 40 mg every 12 hours. Patient is diuresing, still has some residual edema in lower extremities. 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 Today's hemoglobin is 8.4, electrolytes were reviewed as well, CO2 is at 43, BUN of 15, creatinine 0.92, sodium is 141, potassium is 4.3 On 03/14/2020 patient seen in follow-up on selective care unit. Patient is awake and alert, in no acute distress, apparently last evening patient had an episode of worsening dyspnea, and chest x-ray was obtained showing congestive heart failure, with some pulmonary vascular congestion and slight blunting of the costophrenic angles consistent with small bilateral pleural effusions. Patient remains on IV Lasix, 40 mg every 12 hours, yesterday we gave her a couple doses of Diamox, today's labs have been reviewed, showing sodium of 137, potassium 4.3, chloride is 93, CO2 is 40, BUN 16 creatinine is 1.05. White count is within normal limits and 9.5, she's had no fever or chills. Follow-up chest x-ray this morning shows fluid volume overload, congestive heart failure, and patient still has diffuse crackles on today's exam, she did wear BiPAP support last night, she is currently 5 L of oxygen. She is awake, alert, she said that presented to the patient, she states her breathing is improving this morning. She has been voiding, she is using the bedside commode, get the bedside commode tolerating it well. Has lower extremity edema. No complaints of chest pain. The patient is seen today 03/15/2020 follow-up on the selective care unit. She is currently sitting up at the bedside. Awake and alert in no acute distress. Breathing easier today compared to yesterday. She did utilize the BiPAP last evening and earlier this morning after breakfast. Continues to diurese well. Currently on 5 L/m per nasal cannula with O2 saturations in the 90s. White count 11.9. Hemoglobin 7.9. Continued on albuterol, Symbicort inhalations, IV Solu-Medrol, IV diuretics in the form of Lasix 40 mg every 12 hours. The patient is 03/16/2020 in follow-up on the selective care unit. She is cur rently sitting up in bed. Awake and alert in no acute distress. She is maintaining good O2 saturations in the 90s on 4 L/m per nasal cannula. Continues to utilize BiPAP during the evenings and throughout the day while napping. Jose on bronchodilators. She is status post 3 units of packed red blood cells this admission. Current hemoglobin 7.9. White count 12.2. Sodium 141. Potassium 4.3. Creatinine 1.04. She remains on Lasix 40 iv every 12 hours. Currently in a negative balance. Objective - Vital Signs Vital signs: Vital Signs Temp 97.5 F L 03/16/20 07:59 Pulse 72 03/16/20 11:49 Resp 18 03/16/20 07:59 BP 130/60 03/16/20 07:59 Pulse Ox 95 03/16/20 07:59 Intake & Output 03/15/20 03/16/20 03/16/20 18:59 06:59 18:59 Intake Total 480 0 Output Total 7978 804 8418 Balance -1320 -600 -1000 Weight 113 kg Intake: Oral 480 0 Output: Urine 3696 [id number] Other: Voiding Method Bedside Commode Bedside Commode Bedside Commode # Voids 1 # Bowel Movements 1 - Exam GENERAL EXAM: Alert, very pleasant, 65-year-old morbidly obese female patient, sitting up at the bedside, currently on 4 L of oxygen with pulse ox of 95% comfortable in no apparent distress. HEAD: Normocephalic/atraumatic. EYES: Normal reaction of pupils, equal size. Conjunctiva pink, sclera white. NOSE: Clear with pink turbinates. THROAT: No erythema or exudates. NECK: No masses, no JVD, no thyroid enlargement, no adenopathy. CHEST: No chest wall deformity. Symmetrical expansion. LUNGS: Equal air entry with diffuse coarse crackles throughout the lung phelps CVS: Regular rate and rhythm, normal S1 and S2, no gallops, no murmurs, no rubs ABDOMEN: Soft, nontender. No hepatosplenomegaly, normal bowel sounds, no guarding or rigidity. EXTREMITIES: No clubbing, 1+ lower extremity pretibial ankle and pedal edema, no cyanosis, 2+ pulses and upper and lower extremities. MUSCULOSKELETAL: Muscle strength and tone normal. SPINE: No scoliosis or deformity SKIN: No rashes CENTRAL NERVOUS SYSTEM: Alert and oriented -3. No focal deficits, tone is normal in all 4 extremities. PSYCHIATRIC: Alert and oriented -3. Appropriate affect. Intact judgment and insight. - Labs CBC & Chem 7: 03/16/20 07:00 03/16/20 07:00 Labs: Abnormal Lab Results - Last 24 Hours (Table) 03/15/20 03/15/20 03/16/20 Range/Units 17:11 20:54 06:59 WBC (3.8-10.6) k/uL RBC (3.80-5.40) m/uL Hgb (11.4-16.0) gm/dL Hct (34.0-46.0) % MCHC (31.0-37.0) g/dL RDW (11.5-15.5) % Neutrophils # (1.3-7.7) k/uL Monocytes # (0-1.0) k/uL Chloride (98-107) mmol/L Carbon Dioxide (22-30) mmol/L BUN (7-17) mg/dL Glucose (74-99) mg/dL POC Glucose (mg/dL) 481 H 461 H 144 H (75-99) mg/dL 03/16/20 03/16/20 03/16/20 Range/Units 07:00 07:00 12:16 WBC 12.2 H (3.8-10.6) k/uL RBC 3.08 L (3.80-5.40) m/uL Hgb 7.9 L (11.4-16.0) gm/dL Hct 28.4 L (34.0-46.0) % MCHC 28.0 L (31.0-37.0) g/dL RDW 19.8 H (11.5-15.5) % Neutrophils # 8.8 H (1.3-7.7) k/uL Monocytes # 1.2 H (0-1.0) k/uL Chloride 96 L (98-107) mmol/L Carbon Dioxide 40 H (22-30) mmol/L BUN 33 H (7-17) mg/dL Glucose 131 H (74-99) mg/dL POC Glucose (mg/dL) 173 H (75-99) mg/dL Assessment and Plan Assessment: #1. Acute on chronic hypoxic respiratory failure related to acute exacerbation of CHF with diastolic dysfunction, diuresing well from IV diuretics, utilizing BiPAP at night currently on 4 L nasal cannula #2. Acute on chronic hypercapnic respiratory failure related to fluid volume overload, acute exacerbation of CHF #2. Chronic hypoxic rest or a failure related to history of COPD, patient usually wears 2 L of oxygen during the day 3 L of oxygen at night #3. Chronic CHF, with history of valvular disease, we will obtain echocardiogram, patient follows with Dr. Tyson from [place] #4. Acute on chronic anemia, related to GI bleeding and melena, with a recent history of endoscopic evaluation and small bowel capsule endoscopy at [facility] which revealed small bowel bleeding status post cauterization. Status post transfusion with 3 units of packed blood cells #5. Diabetes mellitus 2 diabetic neuropathy #6. Obstructive sleep apnea on CPAP #7. Hypothyroidism #8. History of smoking, currently in remission for last 3 months, patient carries 40 years of smoking of one pack a day #9. Depression Plan: The patient was seen and evaluated by Dr. Gomes She continues to diurese well Titrate down the FiO2 as tolerated Increase her activity as tolerated Continue BiPAP Repeat chest x-ray in a.m. We will continue to follow I, the cosigning physician, performed a history & physical examination of the patient. Lungs sounds with diffuse rhonchi, crackles in the bilateral posterior bases. Maintaining good O2 saturations in the 90s on 5 L/m per nasal cannula. I discussed the assessment and plan of care with my nurse practitioner, Margoth Enriquez. I attest to the above note as dictated by her.
[2020-03-16 17:28] LABS: Glucose,Whole Blood 160 mg/dL (75-99)
[2020-03-16 20:06] LABS: Glucose,Whole Blood 205 mg/dL (75-99)
[2020-03-16] MEDS: INSULIN DETEMIR (LEVEMIR) 100 UNIT/ML SYR SQ SCH (21:51)
[2020-03-16] MEDS: ATORVASTATIN 40 MG TAB PO SCH (21:51)
[2020-03-16] MEDS: MONTELUKAST 10 MG TAB PO SCH (21:52)
[2020-03-17] MEDS: LEVOTHYROXINE 125 MCG TAB PO SCH (07:03)
[2020-03-17 07:07] LABS: Glucose,Whole Blood 139 mg/dL (75-99)
[2020-03-17] MEDS: SYMBICORT 160-4.5 MCG INHALER INHALATION SCH ×2 (07:46→19:08)
[2020-03-17] MEDS: ALBUTEROL NEBULIZED 2.5 MG/3 ML INHALATION PRN ×4 (07:46→19:08)
--- NOTE | 2020-03-17 07:46 | P.DS ---
Providers Date of admission: 03/09/20 00:23 Expected date of discharge: 03/17/20 Attending physician: Yoel Deras Consults: 03/10/20 08:36 Consult Physician Routine Consulting Provider: Vivian Samayoa Consult Reason/Comments: GI Bleed Do you want consulting provider notified?: Yes 03/11/20 13:51 Consult Physician Routine Consulting Provider: Ronen Wynne Consult Reason/Comments: COPD Do you want consulting provider notified?: Yes Primary care physician: Yoel Deras [facility] Course: HISTORY OF PRESENT ILLNESS This is a 65-year-old female patient of Dr. Deras with past medical history of diabetes mellitus type 2, diabetic neuropathy, COPD, hypertension, obstructive sleep apnea, hypothyroidism. Patient has had ongoing problems with GI bleed and was seen by Dr. Nieves GI physician and [place]. She had a capsule endoscopy at the office and found ulcers. Patient underwent an EGD and could not get to all of the ulcers and patient was then transferred to [place] for repeat EGD. This will could not be completed at [place] and patient was subsequently transferred [facility] and she did have some cauterization done and was discharged home. Unfortunately, patient is continued to have black stools which is actually increased in frequency. She also has had increased shortness of breath, orthopnea and cough. No fever or chills, no chest pain. She utilized BiPAP last night which seemed to help her shortness of breath. Patient presented to [facility] emergency center as she was sent in because her hemoglobin was less than 7 as an outpatient and she required transfusion. She was afebrile, heart rate 87, blood pressure 130/54 pulse ox 98% on room air. Initial hemoglobin 6.1 and patient has been transfused 1 unit of packed RBCs. Repeat hemoglobin this morning is 6.7 and a second unit of packed RBCs has been ordered. Other lab work revealed WBC of 12.1. CO2 35, BUN 25 and creatinine 1.1, blood sugar 221. She has unknown hemoglobin A1c of 5.2 in the outpatient setting. Lactic acid 1.7, troponin negative. ProBNP 1590. Chest x-ray revealed evidence of heart failure. Atheromatosis aorta. EKG sinus rhythm. 03/10: Patient evaluated this morning, sitting up in bed. She received a total of 3 packed RBCs, repeat hemoglobin 8.1, hematocrit 27.9. Other lab work shows WBC 1.3, CO2 41, BUN 17, creatinine 0.78, blood sugar 109. She still has complaints of shortness of breath with exertion. Vital signs are stable, she is afebrile temp 97.0, heart rate 73, respiratory 17, blood pressure 103/76. GI on consult. 03/11: Patient has been seen by GI with plan for EGD today. Patient is seen today on BiPAP. She is utilizing this while sleeping. She denies having any abdominal tenderness. She did have a bowel movement that was blood-tinged. Repeat hemoglobin is 7.6. CO2 42. Blood sugars running between 128 and 279. 03/12: Patient is currently undergoing echocardiogram. Patient states that she is feeling fine today. Breathing is improved from yesterday. She is on nasal cannula O2. Patient was seen yesterday by pulmonary medicine and oral Bumex changed to IV Lasix of 40 mg every 12 hours. Patient is status post 2 doses of Ferrlecit. Hemoglobin today is 7.6. Blood sugars are running anywhere between 151 and 277. Echocardiogram reveals EF of 55-60%, moderate aortic stenosis, mild to moderate aortic valve sclerosis, moderate mitral stenosis, mild tricuspid regurgitation, moderate pulmonary hypertension. Chest x-ray reveals cardiomegaly. Mild stable bilateral lower lobe infiltrates. Correlate for atelectasis. Incentive spirometry will be added. Patient has been rescheduled for EGD today. Pulse ox 91% on 4 L nasal cannula, heart rate 79, afebrile, blood pressure 128/57. 03/13: Yesterday, the patient underwent EGD with Dr. 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 Patient was cleared to start diet and advance as tolerated. Patient is still on BiPAP today. She states her breathing is a little bit better but not much. We will order another dose of Ferrlecit today. Patient started on Solu-Medrol 40 mg IV every 8 hours. Patient is asking to go to [facility] at discharge and dependency case manager updated. Covid testing ordered. Patient has been afebrile, heart rate 74, blood pressure 122/56, pulse ox 96% on BiPAP. Repeat hemoglobin 8.4, CO2 43. 03/14: Patient has been afebrile, heart rate 70, blood pressure 120/50, patient is currently on BiPAP with continued shortness of breath. Repeat blood work reveals WBC 9.5, hemoglobin 7.4, CO2 40, BUN 1.05. Blood sugars are running between 270 and 320. She is currently on Solu-Medrol 40 mg IV every 8 hours. Scheduled NovoLog 5 units with each meal will be added. Diamox was added yesterday by pulmonary medicine. Repeat chest x-ray reveals early volume overload or heart failure. Discussed discharge planning with the patient and family would like patient to go to [facility]. After discussion, patient is agreeable to go to [facility] for subacute rehab. Patient will require close monitoring after discharge. Authorization process will be started today in anticipation of probable discharge on Tuesday. 03/15: Patient is found sitting up at the side of the bed in no acute distress. Patient has no complaints or concerns at this time. Blood glucose was 420 6 in the AM. Patient has been on steroids. She states she is able to breathe better has been up and walking in the room without any difficulties. The plan is for the patient to be discharged to [facility] on Tuesday. Hemoglobin was 7.9 this morning. 03/16: Patient is found sitting up in bed. She had elevated blood sugars yesterday in the 400s. She was given extra Levemir and increase sliding scale. Patient was DC'd on the Solu-Medrol yesterday also will take approximately 24 hours to see a normalized blood sugars. Patient states that she has not had any history of atrial fibrillation now or in the past. She has not been treated for any either. Patient has been sinus rhythm on the monitor. The plan remains to be discharged on Tuesday to [place]. 03/17: She has had significant improvement of her shortness of breath over the weekend. She states she is back to baseline. She is currently on 3 L nasal cannula with pulse ox of 95%. She has been afebrile, heart rate 71, blood pressure 127/68. Patient is using BiPAP at night or when she sleeps. Hemoglobin yesterday was 7.9. No repeat today. Repeat chest x-ray reveals correlate for heart failure with slight worsening pulmonary vascular congestion. More that she left lower lung opacities could represent an area of developing pulmonary edema or other infiltrate. Patient's discharge plan is for [facility]. COVID-19 testing on March 13 was negative. Repeat Covid 19 ordered for today. Patient will be discharged to [facility] once all arrangements are completed. ASSESSMENT AND PLAN 1. Acute on chronic GI bleed with acute blood loss anemia. Patient has been transfused total of 3 units of packed RBCs. 2. Acute hypoxic respiratory failure, POA, secondary to anemia and fluid overload. 3. Diabetes mellitus type 2 with diabetic neuropathy. 4. Diabetic neuropathy. 5. COPD. 6. Hypertension. 7. Acute on chronic diastolic heart failure. 8. Hyperlipidemia. 9. Obstructive sleep apnea. 10. Restless leg syndrome. 11. Recurrent depression. 12. Valvular heart disease with moderate aortic stenosis, moderate mitral stenosis. 13. Moderate pulmonary hypertension. Discharge plan: [facility]. Under the care of Dr. Deras Impression and plan of care have been directed as dictated by the signing physician. Clarice Colón nurse practitioner acting as scribe for signing physician. Patient Condition at Discharge: Good Plan - Discharge Summary Discharge Rx Participant: Yes New Discharge Prescriptions: New acetaZOLAMIDE [Diamox] 250 mg PO DAILY #30 tablet polyethylene glycoL 3350 [Miralax] 17 gm PO DAILY powd.pack INSULIN ASPART (NovoLOG) [NovoLOG (formulary)] 10 unit SQ AC-TID vial INSULIN ASPART (NovoLOG) [NovoLOG (formulary)] 0 unit SQ ACHS vial Sennosides-Docusate Sodium [Senokot-S] 1 each PO BID tab Acetaminophen-Codeine 300-30mg [Tylenol w/codeine #3] 1 each PO Q6HR PRN #12 tab PRN Reason: Pain Continue Insulin Glargine,Hum.rec.anlog [Toujeo Solostar] 50 units SQ HS rOPINIRole HCL [Requip] 2 mg PO BID Budesonide-Formot 160-4.5 Mcg [Symbicort 160-4.5 Mcg Inhaler] 2 puff INHALATION BID Potassium Chloride ER [K-Dur 10] 10 meq PO BID Nitroglycerin Sl Tabs [Nitrostat] 0.4 mg SUBLINGUAL Q5M PRN PRN Reason: Chest Pain Montelukast Sodium [Singulair] 10 mg PO HS Metoprolol Tartrate [Lopressor] 50 mg PO BID methocarbamoL [Robaxin] 500 mg PO BID Levothyroxine Sodium 125 mcg PO DAILY sitaGLIPtin [Januvia] 100 mg PO DAILY Isosorbide Mononitrate ER [Imdur] 30 mg PO DAILY Glimepiride [Amaryl] 2 mg PO DAILY FLUoxetine HCL 20 mg PO DAILY Bumetanide 2 mg PO BID Atorvastatin [Lipitor] 40 mg PO DAILY amLODIPine [Norvasc] 10 mg PO DAILY Albuterol Nebulized [Ventolin Nebulized] 2.5 mg INHALATION RT-QID PRN PRN Reason: Shortness Of Breath Albuterol Inhaler [Ventolin Hfa Inhaler] 1 - 2 puff INHALATION RT-QID PRN PRN Reason: Shortness Of Breath Pregabalin [Lyrica] 200 mg PO BID #6 cap Changed Pantoprazole [Protonix] 40 mg PO BID #0 Discontinued Aspirin [Ai Aspirin EC] 81 mg PO DAILY Discharge Medication List Albuterol Inhaler [Ventolin Hfa Inhaler] 1 - 2 puff INHALATION RT-QID PRN 03/09/20 [History] Albuterol Nebulized [Ventolin Nebulized] 2.5 mg INHALATION RT-QID PRN 03/09/20 [History] Atorvastatin [Lipitor] 40 mg PO DAILY 03/09/20 [History] Budesonide-Formot 160-4.5 Mcg [Symbicort 160-4.5 Mcg Inhaler] 2 puff INHALATION BID 03/09/20 [History] Bumetanide 2 mg PO BID 03/09/20 [History] FLUoxetine HCL 20 mg PO DAILY 03/09/20 [History] Glimepiride [Amaryl] 2 mg PO DAILY 03/09/20 [History] Insulin Glargine,Hum.rec.anlog [Toutammyo Solostar] 50 units SQ HS 03/09/20 [History] Isosorbide Mononitrate ER [Imdur] 30 mg PO DAILY 03/09/20 [History] Levothyroxine Sodium 125 mcg PO DAILY 03/09/20 [History] Metoprolol Tartrate [Lopressor] 50 mg PO BID 03/09/20 [History] Montelukast Sodium [Singulair] 10 mg PO HS 03/09/20 [History] Nitroglycerin Sl Tabs [Nitrostat] 0.4 mg SUBLINGUAL Q5M PRN 03/09/20 [History] Potassium Chloride ER [K-Dur 10] 10 meq PO BID 03/09/20 [History] amLODIPine [Norvasc] 10 mg PO DAILY 03/09/20 [History] methocarbamoL [Robaxin] 500 mg PO BID 03/09/20 [History] rOPINIRole HCL [Requip] 2 mg PO BID 03/09/20 [History] sitaGLIPtin [Januvia] 100 mg PO DAILY 03/09/20 [History] Acetaminophen-Codeine 300-30mg [Tylenol w/codeine #3] 1 each PO Q6HR PRN #12 tab 03/17/20 [Rx] INSULIN ASPART (NovoLOG) [NovoLOG (formulary)] 0 unit SQ ACHS vial 03/17/20 [Rx] INSULIN ASPART (NovoLOG) [NovoLOG (formulary)] 10 unit SQ AC-TID vial 03/17/20 [Rx] Pantoprazole [Protonix] 40 mg PO BID #0 03/17/20 [Rx] Pregabalin [Lyrica] 200 mg PO BID #6 cap 03/17/20 [Rx] Sennosides-Docusate Sodium [Senokot-S] 1 each PO BID tab 03/17/20 [Rx] acetaZOLAMIDE [Diamox] 250 mg PO DAILY #30 tablet 03/17/20 [Rx] polyethylene glycoL 3350 [Miralax] 17 gm PO DAILY powd.pack 03/17/20 [Rx] Follow up Appointment(s)/Referral(s): [facility] [Provider Group] - 2 Weeks (moderate aortic stenosis, moderate mitral stenosis) Yoel Deras MD [Primary Care Provider] - 1 Week Vivian Samayoa MD [STAFF PHYSICIAN] - 2 Weeks [facility], [NON-STAFF] - 1-2 Days [facility] [NON-STAFF] - As Needed Lakisha Gomes MD [STAFF PHYSICIAN] - 2 Weeks Activity/Diet/Wound Care/Special Instructions: [place] Discharge Disposition: HOME WITH HOME HEALTH SERVICES
[2020-03-17] MEDS: INSULIN ASPART (NovoLOG) 100 UNIT/ML VIAL SQ SCH ×7 (08:01→20:56)
[2020-03-17] MEDS: POTASSIUM CHLORIDE ER 10 MEQ TAB.ER.PRT PO SCH ×2 (08:02→20:57)
[2020-03-17] MEDS: polyethylene glycoL 3350 17 GM POWD.PACK PO SCH (08:02)
[2020-03-17] MEDS: PANTOPRAZOLE 40 MG/10 ML VIAL IVP SCH (08:02)
[2020-03-17] MEDS: SENNOSIDES-DOCUSATE SODIUM 1 EACH TAB PO SCH ×2 (08:02→20:58)
[2020-03-17] MEDS: methocarbamoL 500 MG TAB PO SCH ×2 (08:02→20:57)
[2020-03-17] MEDS: FLUoxetine HCL 20 MG CAP PO SCH (08:02)
[2020-03-17] MEDS: amLODIPine 10 MG TAB PO SCH (08:03)
[2020-03-17] MEDS: FUROSEMIDE 10 MG/ML 4 ML VIAL IV SCH ×2 (08:03→22:12)
[2020-03-17] MEDS: METOPROLOL TARTRATE 50 MG TAB PO SCH ×2 (08:03→20:57)
[2020-03-17] MEDS: PREGABALIN 100 MG CAP PO SCH ×2 (08:03→20:57)
[2020-03-17] MEDS: ISOSORBIDE MONONITRATE ER 30 MG TAB.ER.24H PO SCH (08:03)
--- NOTE | 2020-03-17 09:06 | XR ---
EXAMINATION TYPE: XR chest 1V portable DATE OF EXAM: 03/17/2020 Comparison: 03/14/2020 Clinical History: 65-year-old female CHF, shortness of breath Findings: The heart is mildly enlarged. Diffuse interstitial and perihilar opacities. Patchy mid and lower lung opacities. Possible small left effusion. Density slightly increasing from prior. Impression: Correlate for continued CHF with slight worsening pulmonary vascular congestion. More patchy left low er lung opacity could represent an area of developing pulmonary edema or other infiltrate.
[2020-03-17] MEDS: LINAGLIPTIN 5 MG TABLET PO SCH (09:39)
[2020-03-17] MEDS: GLIMEPIRIDE 2 MG TAB PO SCH (09:39)
--- NOTE | 2020-03-17 11:42 | P.PN ---
Subjective Progress Note Date: 03/17/20 Principal diagnosis: Acute on chronic hypoxic rest failure related to fluid volume overload, acute exacerbation of CHF 65-year-old white female patient with past medical history of COPD, with chronic hypoxic respiratory failure patient wears 2 L of oxygen during the day, and 3 L at bedtime, chronic CHF, with unknown EF, history of valvular heart disease (not known what valve), diabetes mellitus type 2, with diabetic neuropathy, hypertension, obstructive sleep apnea on CPAP, hypothyroidism and a recent history of GI bleeding, and patient is status post hospitalization and en doscopic evaluation with EGD at the [facility]. She states she was found to have active bleeding in the small bowel after she had a small bowel capsule endoscopy. The bleeding vessels were cauterized during EGD. Patient presented back to the hospital on 03/08/2020 for evaluation of ongoing bleeding with evidence of black tarry stools. In addition she was having increased shortness of breath. Apparently she was having her hemoglobin checked on an outpatient basis and she was called for hemoglobin of 6.1 and was told to go to the hospital for a blood transfusion. Patient denies any chest pain, denied any cough. She does report some increased leg edema from her baseline. She was passing some dark stools at home. Patient was transfused with a total of 3 units of packed red blood cells, and today's hemoglobin is 7.6. Her initial chest x-ray showed evidence of pulmonary vascular congestion, less than patient developed a worsening shortness of breath, she was given an extra dose of Lasix for evidence of fluid overload, was placed on BiPAP. We were asked to see the patient in evaluation for his shortness of breath. Currently she is off the BiPAP, she is on 4 L of oxygen with pulse ox of 91%, lung sounds to reveal diffuse coarse crackles throughout the lung phelps, she has increased peripheral edema, but no acute distress, she states since dose of Lasix her breathing has improved. She is currently on oral Bumex. On 03/12/2020 patient seen in follow-up on selective care unit, she states her breathing is improving, she did wear BiPAP for several hours last night, she is currently on 5 L of oxygen the pulse ox of 92%, yesterday we switched her over to IV Lasix, which is currently at 40 mg every 12 hours, and patient has produced 1.1 L in urine output over the last 24 hours, she is in negative fluid balance, however her lungs are still positive for diffuse crackles throughout, and she still has lower extremity edema, her echocardiogram has been completed showing moderate concentric LVH, EF between 55-60%, mild to moderate aortic valve sclerosis, moderate aortic stenosis, moderate mitral stenosis, moderate pulmonary hypertension, right-sided pressures of 46.3 mmHg. Patient has been nothing by mouth after midnight for EGD today with Dr. Navarro. Today's hemoglobin is 7.6, patient states her last stool was yesterday, no active bleeding overnight. On 03/13/2020 patient is seen in follow-up on selective care unit, she is currently on BiPAP, which she has been wearing at bedtime, patient tolerating it very well, she states she has a home BiPAP unit which she wears. She states since yesterday her breathing is improving, community patient wears 5 L of oxygen the pulse ox of 91%, and some still reveal some scattered which appeared to be improved on today's exam. Patient remains on IV Lasix at 40 mg every 12 hours. Patient is diuresing, still has some residual edema in lower extremities. 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 Today's hemoglobin is 8.4, electrolytes were reviewed as well, CO2 is at 43, BUN of 15, creatinine 0.92, sodium is 141, potassium is 4.3 On 03/14/2020 patient seen in follow-up on selective care unit. Patient is awake and alert, in no acute distress, apparently last evening patient had an episode of worsening dyspnea, and chest x-ray was obtained showing congestive heart failure, with some pulmonary vascular congestion and slight blunting of the costophrenic angles consistent with small bilateral pleural effusions. Patient remains on IV Lasix, 40 mg every 12 hours, yesterday we gave her a couple doses of Diamox, today's labs have been reviewed, showing sodium of 137, potassium 4.3, chloride is 93, CO2 is 40, BUN 16 creatinine is 1.05. White count is within normal limits and 9.5, she's had no fever or chills. Follow-up chest x-ray this morning shows fluid volume overload, congestive heart failure, and patient still has diffuse crackles on today's exam, she did wear BiPAP support last night, she is currently 5 L of oxygen. She is awake, alert, she said that presented to the patient, she states her breathing is improving this morning. She has been voiding, she is using the bedside commode, get the bedside commode tolerating it well. Has lower extremity edema. No complaints of chest pain. On 03/17/2020 patient seen in follow-up on a general medical floor. She is currently on 2 L of oxygen the pulse ox of 93%, she's been wearing her BiPAP at bedtime, and with settings of 12 and 5, and FiO2 of 40%. Her breathing is much easier, still has some edema in her lower extremities, but overall feeling much better, she remains on IV Lasix, currently at 40 mg every 12 hours, she is in - 280 mL fluid balance over the last 24 hours. A chest x-ray shows continued CHF with slight worsening pulmonary vascular congestion, and patchy left lower lobe opacity. Clinically stable, complaints of worsening dyspnea, or chest pain, no new labs today, yesterday's labs revealed BUN of 33 and creatinine of 1.04, CO2 is at 40. Patient continues on Diamox at 250 mg IV every 12 hours. On the acute events overnight. Discharge is currently pending for discharge to [facility] rehab today Objective - Vital Signs Vital signs: Vital Signs Temp 98.4 F 03/17/20 05:00 Pulse 71 03/17/20 08:00 Resp 18 03/17/20 05:00 BP 127/68 03/17/20 08:00 Pulse Ox 95 03/17/20 08:00 Intake & Output 03/16/20 03/17/20 03/17/20 18:59 06:59 18:59 Intake Total 720 480 Output Total 1000 Balance -280 480 Weight 114 kg Intake: Oral 720 480 Output: Urine 1000 Other: Voiding Method Bedside Commode Toilet # Voids 1 2 # Bowel Movements 1 - Exam GENERAL EXAM: Alert, very pleasant, 65-year-old white female, sitting up in a demented, currently on 2 L of oxygen with pulse ox of 93% comfortable in no apparent distress. HEAD: Normocephalic/atraumatic. EYES: Normal reaction of pupils, equal size. Conjunctiva pink, sclera white. NOSE: Clear with pink turbinates. THROAT: No erythema or exudates. NECK: No masses, no JVD, no thyroid enlargement, no adenopathy. CHEST: No chest wall deformity. Symmetrical expansion. LUNGS: Equal air entry with diffuse coarse crackles throughout the lung phelps CVS: Regular rate and rhythm, normal S1 and S2, no gallops, no murmurs, no rubs ABDOMEN: Soft, nontender. No hepatosplenomegaly, normal bowel sounds, no guarding or rigidity. EXTREMITIES: No clubbing, 1+ lower extremity pretibial ankle and pedal edema, no cyanosis, 2+ pulses and upper and lower extremities. MUSCULOSKELETAL: Muscle strength and tone normal. SPINE: No scoliosis or deformity SKIN: No rashes CENTRAL NERVOUS SYSTEM: Alert and oriented -3. No focal deficits, tone is normal in all 4 extremities. PSYCHIATRIC: Alert and oriented -3. Appropriate affect. Intact judgment and insight. - Labs CBC & Chem 7: 03/16/20 07:00 03/16/20 07:00 Labs: Abnormal Lab Results - Last 24 Hours (Table) 03/16/20 03/16/20 03/16/20 Range/Units 12:16 17:24 20:04 POC Glucose (mg/dL) 173 H 160 H 205 H (75-99) mg/dL 03/17/20 Range/Units 07:04 POC Glucose (mg/dL) 139 H (75-99) mg/dL Assessment and Plan Plan: Assessment: #1. Acute on chronic hypoxic respiratory failure related to fluid volume overload, acute exacerbation of CHF with diastolic dysfunction, patient is feeling better after dose of Lasix, requiring BiPAP #2. Acute on chronic hypercapnic respiratory failure related to fluid volume overload, acute exacerbation of CHF, improved with diuresis and BiPAP support intermittently #2. Chronic hypoxic rest or a failure related to history of COPD, patient usually wears 2 L of oxygen during the day 3 L of oxygen at night #3. Chronic CHF, with history of valvular disease, we will obtain ech ocardiogram, patient follows with Dr. Tyson from [place] #4. Acute on chronic anemia, related to GI bleeding and melena, with a recent history of endoscopic evaluation and small bowel capsule endoscopy at [facility] which revealed small bowel bleeding status post cauterization. Status post transfusion with 3 units of packed blood cells #5. Diabetes mellitus 2 diabetic neuropathy #6. Obstructive sleep apnea on CPAP #7. Hypothyroidism #8. History of smoking, currently in remission for last 3 months, patient carries 40 years of smoking of one pack a day #9. Depression Plan: Patient is doing well, she has been diuresed, she is in negative fluid balance, breathing easier, continues on Diamox, today's chest x-ray has been reviewed, still showing some pulmonary vascular congestion but clinically patient is stable, she is awake and alert, she has been wearing BiPAP support at bedtime, and 2 L of oxygen during the day. From pulmonary perspective patient is [facility], and discharged planning is in progress for discharge to [facility] I performed a history & physical examination of the patient and discussed their management with my nurse practitioner, Rika Hartley. I reviewed the nurse practitioner's note and agree with the documented findings and plan of care. Lung sounds are positive for diminished diffuse crackles throughout The findings and the impression was discussed with the patient. I attest to the documentation by the nurse practitioner. Time with Patient: Less than 30
[2020-03-17 11:44] LABS: Glucose,Whole Blood 93 mg/dL (75-99)
[2020-03-17 14:00] VITALS: BMI 49.1
[2020-03-17 17:26] LABS: Glucose,Whole Blood 219 mg/dL (75-99)
[2020-03-17 20:49] LABS: Glucose,Whole Blood 240 mg/dL (75-99)
[2020-03-17] MEDS: INSULIN DETEMIR (LEVEMIR) 100 UNIT/ML SYR SQ SCH (20:56)
[2020-03-17] MEDS: ATORVASTATIN 40 MG TAB PO SCH (20:57)
[2020-03-17] MEDS: PANTOPRAZOLE 40 MG TABLET PO SCH (20:57)
[2020-03-17] MEDS: MONTELUKAST 10 MG TAB PO SCH (20:57)
[2020-03-18 05:34] VITALS: BP 125/67; RESP 20; TEMP 97.7
[2020-03-18] MEDS: LEVOTHYROXINE 125 MCG TAB PO SCH (06:06)
[2020-03-18] MEDS: ALBUTEROL NEBULIZED 2.5 MG/3 ML INHALATION PRN (07:08)
[2020-03-18] MEDS: SYMBICORT 160-4.5 MCG INHALER INHALATION SCH (07:08)
[2020-03-18 07:11] LABS: Glucose,Whole Blood 199 mg/dL (75-99)
[2020-03-18 07:24] VITALS: PULSE 80
--- NOTE | 2020-03-18 07:42 | P.PN ---
Subjective Progress Note Date: 03/17/20 HISTORY OF PRESENT ILLNESS This is a 65-year-old female patient of Dr. Deras with past medical history of diabetes mellitus type 2, diabetic neuropathy, COPD, hypertension, obstructive sleep apnea, hypothyroidism. Patient has had ongoing problems with GI bleed and was seen by Dr. Nieves GI physician and [place]. She had a capsule endoscopy at the office and found ulcers. Patient underwent an EGD and could not get to all of the ulcers and patient was then transferred to [place] for repeat EGD. This will could not be completed at [place] and patient was subsequently transferred [facility] and she did have some cauterization done and was discharged home. Unfortunately, patient is continued to have black stools which is actually increased in frequency. She also has had increased shortness of breath, orthopnea and cough. No fever or chills, no chest pain. She utilized BiPAP last night which seemed to help her shortness of breath. Patient presented to [facility] emergency center as she was sent in because her hemoglobin was less than 7 as an outpatient and she required transfusion. She was afebrile, heart rate 87, blood pressure 130/54 pulse ox 98% on room air. Initial hemoglobin 6.1 and patient has been transfused 1 unit of packed RBCs. Repeat hemoglobin this morning is 6.7 and a second unit of packed RBCs has been ordered. Other lab work revealed WBC of 12.1. CO2 35, BUN 25 and creatinine 1.1, blood sugar 221. She has unknown hemoglobin A1c of 5.2 in the outpatient setting. Lactic acid 1.7, troponin negative. ProBNP 1590. Chest x-ray revealed evidence of heart failure. Atheromatosis aorta. EKG sinus rhythm. 03/10: Patient evaluated this morning, sitting up in bed. She received a total of 3 packed RBCs, repeat hemoglobin 8.1, hematocrit 27.9. Other lab work shows WBC 1.3, CO2 41, BUN 17, creatinine 0.78, blood sugar 109. She still has complaints of shortness of breath with exertion. Vital signs are stable, she is afebrile temp 97.0, heart rate 73, respiratory 17, blood pressure 103/76. GI on consult. 03/11: Patient has been seen by GI with plan for EGD today. Patient is seen today on BiPAP. She is utilizing this while sleeping. She denies having any abdominal tenderness. She did have a bowel movement that was blood-tinged. Repeat hemoglobin is 7.6. CO2 42. Blood sugars running between 128 and 279. 03/12: Patient is currently undergoing echocardiogram. Patient states that she is feeling fine today. Breathing is improved from yesterday. She is on nasal cannula O2. Patient was seen yesterday by pulmonary medicine and oral Bumex changed to IV Lasix of 40 mg every 12 hours. Patient is status post 2 doses of Ferrlecit. Hemoglobin today is 7.6. Blood sugars are running anywhere between 151 and 277. Echocardiogram reveals EF of 55-60%, moderate aortic stenosis, mild to moderate aortic valve sclerosis, moderate mitral stenosis, mild tricuspid regurgitation, moderate pulmonary hypertension. Chest x-ray reveals cardiomegaly. Mild stable bilateral lower lobe infiltrates. Correlate for atelectasis. Incentive spirometry will be added. Patient has been rescheduled for EGD today. Pulse ox 91% on 4 L nasal cannula, heart rate 79, afebrile, blood pressure 128/57. 9: Yesterday, the patient underwent EGD with Dr. 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 Patient was cleared to start diet and advance as tolerated. Patient is still on BiPAP today. She states her breathing is a little bit better but not much. We will order another dose of Ferrlecit today. Patient started on Solu-Medrol 40 mg IV every 8 hours. Patient is asking to go to [facility] at discharge and heel caser updated. Covid testing ordered. Patient has been afebrile, heart rate 74, blood pressure 122/56, pulse ox 96% on BiPAP. Repeat hemoglobin 8.4, CO2 43. 9/: Patient has been afebrile, heart rate 70, blood pressure 120/50, patient is currently on BiPAP with continued shortness of breath. Repeat blood work reveals WBC 9.5, hemoglobin 7.4, CO2 40, BUN 1.05. Blood sugars are running between 270 and 320. She is currently on Solu-Medrol 40 mg IV every 8 hours. Scheduled NovoLog 5 units with each meal will be added. Diamox was added yesterday by pulmonary medicine. Repeat chest x-ray reveals early volume overload or heart failure. Discussed discharge planning with the patient and family would like patient to go to [facility]. After discussion, patient is agreeable to go to [facility] for subacute rehab. Patient will require close monitoring after discharge. Authorization process will be started today in anticipation of probable discharge on Tuesday. 03/15: Patient is found sitting up at the side of the bed in no acute distress. Patient has no complaints or concerns at this time. Blood glucose was 420 6 in the AM. Patient has been on steroids. She states she is able to breathe better has been up and walking in the room without any difficulties. The plan is for the patient to be discharged to [facility] on Tuesday. Hemoglobin was 7.9 this morning. 03/16: Patient is found sitting up in bed. She had elevated blood sugars yesterday in the 400s. She was given extra Levemir and increase sliding scale. Patient was DC'd on the Solu-Medrol yesterday also will take approximately 24 hours to see a normalized blood sugars. Patient states that she has not had any history of atrial fibrillation now or in the past. She has not been treated for any either. Patient has been sinus rhythm on the monitor. The plan remains to be discharged on Tuesday to [place]. 03/17: She has had significant improvement of her shortness of breath over the weekend. She states she is back to baseline. She is currently on 3 L nasal cannula with pulse ox of 95%. She has been afebrile, heart rate 71, blood pressure 127/68. Patient is using BiPAP at night or when she sleeps. Hemoglobin yesterday was 7.9. No repeat today. Repeat chest x-ray reveals correlate for heart failure with slight worsening pulmonary vascular congestion. More that she left lower lung opacities could represent an area of developing pulmonary edema or other infiltrate. Patient's discharge plan is for [facility]. COVID-19 testing on March 13 was negative. Repeat Covid 19 ordered for today. Patient will be discharged to [facility] once all arrangements are completed. REVIEW OF SYSTEMS Constitutional: No fever, no chills, no night sweats. No weight change. Reports weakness, Reports fatigue. No daytime sleepiness. EENT: No headache. No blurred vision or double vision, no loss of vision. No loss of Hearing, no ringing in the ears, no dizziness. No nasal drainage or congestion. No epistaxis. No sore throat. Lungs: Denies shortness of breath, no cough, no sputum production. No wheezing. Cardiovascular: No chest pain, reports lower extremity edema. No palpitations. No paroxysmal nocturnal dyspnea. No orthopnea. No lightheadedness or dizziness. No syncopal episodes. Abdominal: No abdominal pain. No nausea, vomiting. No diarrhea. No constipation. Denies bloody or tarry stools. Reports loss of appetite. Genitourinary: No dysuria, increased frequency, urgency. No urinary retention. Musculoskeletal: No myalgias. Reports muscle weakness, no gait dysfunction, no frequent falls. No back pain. No neck pain. Integumentary: No wounds, no lesions. No rash or pruritus. No unusual bruising. No change in hair or nails. Neurologic: No aphasia. No facial droop. No change in mentation. No head injury. No headache. No paralysis. No paresthesia. Psychiatric: No depression. No anxiety. No mood swings. Endocrine: No abnormal blood sugars. No weight change. No excessive sweating or thirst. No cold intolerance. PHYSICAL EXAMINATION Gen: This is a 65-year-old female. She is resting in bed and appears to be comfortable. HEENT: Head is atraumatic, normocephalic. Pupils equal, round. Sclerae is anicteric. Conjunctiva pale. NECK: Supple. No JVD. No lymphadenopathy. No thyromegaly. LUNGS: Clear to auscultation. No wheezes or rhonchi. No intercostal retractions. HEART: Regular rate and rhythm. Systolic murmur. ABDOMEN: Soft. Bowel sounds are present. No masses. No tenderness. EXTREMITIES: 1+ pedal edema. No calf tenderness. Dorsalis pedis +2 bilaterally. NEUROLOGICAL: Patient is awake, alert and oriented x3. Cranial nerves 2 through 12 are grossly intact. ASSESSMENT AND PLAN 1. Acute on chronic GI bleed with acute blood loss anemia. Patient has been transfused total of 3 units of packed RBCs. Consult with GI appreciated with plan for EGD as above. Protonix 40 mg IV push twice daily. 2. Acute on chronic hypoxic respiratory failure, POA, secondary to anemia, acute diastolic heart failure. Patient is on IV Lasix 40 mg every 12 hours, Diamox 250 mg IV every 12 hours. Monitor I&O, daily weights, renal function and electrolytes. 3. Diabetes mellitus type 2 with diabetic neuropathy. Levemir increased to 40 units at bedtime. Start Humalog 5 units with meals. Resume Glimepiride 2 mg daily. Continue NovoLog scale, Tradjenta. 4. Diabetic neuropathy. Continue Lyrica. 5. COPD. Continue Symbicort, albuterol as needed, Singulair 10 mg at bedtime. 6. Hypertension. Continue Norvasc 10 mg daily, Lopressor 50 mg twice daily. 7. Acute on chronic diastolic heart failure. Continue as above. 8. Hyperlipidemia. Continue Lipitor 40 mg daily. 9. Obstructive sleep apnea. Continue BiPAP at night. 10. Restless leg syndrome. Continue Requip 2 mg twice daily. 11. Recurrent depression. Continue Prozac 20 mg daily. 12. Valvular heart disease with moderate aortic stenosis, moderate mitral stenosis. Patient will need follow-up with cardiology. 13. Moderate pulmonary hypertension. 14. GI prophylaxis. Protonix. 15. DVT prophylaxis. SCDs and FILEMON chacee. Discharge plan: Subacute rehab at [facility] on Tuesday Impression and plan of care have been directed as dictated by the signing physician. Clarice Colón nurse practitioner acting as scribe for signing physician. Objective - Vital Signs Vital signs: Vital Signs Temp 97.7 F 03/18/20 05:00 Pulse 80 03/18/20 07:23 Resp 20 03/18/20 05:00 BP 125/67 03/18/20 05:00 Pulse Ox 93 L 03/18/20 05:00 Intake & Output 03/17/20 03/18/20 03/18/20 18:59 06:59 18:59 Intake Total 960 20 Balance 960 20 Weight 114 kg 112 kg Intake: Intake, IV Titration 20 Amount IV Fluid Continuation 1, 20 000 ml @ 0 mls/hr IV .STK -[facility] ONE Rx#:[id number] Oral 960 Other: Voiding Method Toilet # Voids 2 1 - Labs CBC & Chem 7: 03/16/20 07:00 03/16/20 07:00 Labs: Abnormal Lab Results - Last 24 Hours (Table) 03/17/20 03/17/20 03/18/20 Range/Units 17:24 20:48 07:09 POC Glucose (mg/dL) 219 H 240 H 199 H (75-99) mg/dL
[2020-03-18] MEDS: LINAGLIPTIN 5 MG TABLET PO SCH (07:58)
[2020-03-18] MEDS: POTASSIUM CHLORIDE ER 10 MEQ TAB.ER.PRT PO SCH (07:58)
[2020-03-18] MEDS: FLUoxetine HCL 20 MG CAP PO SCH (07:58)
[2020-03-18] MEDS: SENNOSIDES-DOCUSATE SODIUM 1 EACH TAB PO SCH (07:59)
[2020-03-18] MEDS: INSULIN ASPART (NovoLOG) 100 UNIT/ML VIAL SQ SCH ×2 (07:59→08:00)
[2020-03-18] MEDS: METOPROLOL TARTRATE 50 MG TAB PO SCH (07:59)
[2020-03-18] MEDS: ISOSORBIDE MONONITRATE ER 30 MG TAB.ER.24H PO SCH (07:59)
[2020-03-18] MEDS: amLODIPine 10 MG TAB PO SCH (07:59)
[2020-03-18] MEDS: PREGABALIN 100 MG CAP PO SCH (07:59)
[2020-03-18] MEDS: GLIMEPIRIDE 2 MG TAB PO SCH (07:59)
[2020-03-18] MEDS: PANTOPRAZOLE 40 MG TABLET PO SCH (07:59)
[2020-03-18] MEDS: methocarbamoL 500 MG TAB PO SCH (07:59)
[2020-03-18] MEDS: FUROSEMIDE 10 MG/ML 4 ML VIAL IV SCH (07:59)
[2020-03-18] MEDS: polyethylene glycoL 3350 17 GM POWD.PACK PO SCH (08:00)
[2020-03-18 11:28] LABS: Glucose,Whole Blood 135 mg/dL (75-99)
== END 2020-03-18 12:32 | disposition home health service (06) | DRG 377 ==
LOC: EC 22:43 → 4SSUR 03-09 00:23 → 3SCARD 03-10 18:20 → 6NMEDSUR 03-16 21:14
PROVIDERS: ADMIT Internal Medicine Geriatric Medicine; ATTEND Internal Medicine Geriatric Medicine
PROC: 0W3P8ZZ Control Bleeding in Gastrointestinal Tract, Via Natural or Artificial Opening Endoscopic (ICD-10-PCS; principal; 2020-03-12 08:00)
PROC: 30233N1 Transfusion of Nonautologous Red Blood Cells into Peripheral Vein, Percutaneous Approach (ICD-10-PCS; principal; 2020-03-12 08:00)
DX: K31.811 Angiodysplasia of stomach and duodenum with bleeding (principal); I50.33 Acute on chronic diastolic (congestive) heart failure; J96.21 Acute and chronic respiratory failure with hypoxia; J96.22 Acute and chronic respiratory failure with hypercapnia; D62 Acute posthemorrhagic anemia; F33.9 Major depressive disorder, recurrent, unspecified; J44.1 Chronic obstructive pulmonary disease with (acute) exacerbation; E03.9 Hypothyroidism, unspecified; E11.40 Type 2 diabetes mellitus with diabetic neuropathy, unspecified; E11.65 Type 2 diabetes mellitus with hyperglycemia; E78.5 Hyperlipidemia, unspecified; F41.9 Anxiety disorder, unspecified; Z20.828 Contact with and (suspected) exposure to other viral communicable diseases; G25.81 Restless legs syndrome; G47.33 Obstructive sleep apnea (adult) (pediatric); I11.0 Hypertensive heart disease with heart failure; I27.20 Pulmonary hypertension, unspecified; I08.3 Combined rheumatic disorders of mitral, aortic and tricuspid valves; K44.9 Diaphragmatic hernia without obstruction or gangrene; M19.90 Unspecified osteoarthritis, unspecified site; Z96.1 Presence of intraocular lens; Z79.4 Long term (current) use of insulin; I25.2 Old myocardial infarction; Z79.51 Long term (current) use of inhaled steroids; Z79.82 Long term (current) use of aspirin; Z79.890 Hormone replacement therapy; Z79.899 Other long term (current) drug therapy; Z80.6 Family history of leukemia; Z82.49 Family history of ischemic heart disease and other diseases of the circulatory system; Z87.891 Personal history of nicotine dependence; Z90.710 Acquired absence of both cervix and uterus; Z88.8 Allergy status to other drugs, medicaments and biological substances; Z87.01 Personal history of pneumonia (recurrent); Z86.19 Personal history of other infectious and parasitic diseases; Z90.49 Acquired absence of other specified parts of digestive tract; Z98.890 Other specified postprocedural states; Z98.49 Cataract extraction status, unspecified eye
CPT/HCPCS: 36415; 36430; 36600; 43255; 71045; 80048; 80053; 82272; 82805; 83605; 83735; 83880; 84484; 85025; 85027; 85610; 85730; 86850; 86900; 86901; 86920; 93005; 93306; 94640; 94660; 94760; 96374; 99291

== ENCOUNTER 2020-03-27 13:54 | Inpatient (IN) | payer MEDICARE, OTHER ==
[2020-03-27] MEDS ORDERED: IPRATROPIUM-ALBUTEROL 3 ML NEB INHALATION STA (14:08)
--- NOTE | 2020-03-27 14:10 | ED ---
General Adult HPI - General Chief complaint: Shortness of Breath Stated complaint: Diff Breathing Time Seen by Provider: 03/27/20 14:04 Source: patient, family, RN notes reviewed Mode of arrival: wheelchair Limitations: no limitations - History of Present Illness Initial comments: Patient is a pleasant 65-year-old female presenting to the emergency department difficulty in breathing. Onset of symptoms was a couple of days ago. No cough. No fever. Dyspnea does worsen with exertion. Patient does have history of similar symptoms previously associate with both COPD and CHF. Patient does have some leg swelling. No calf pain. Symptoms also worsen with lying down. No chest pain. - Related Data Home Medications Medication Instructions Recorded Confirmed Albuterol Inhaler [Ventolin Hfa 1 - 2 puff INHALATION RT-QID PRN 03/09/20 03/27/20 Inhaler] Albuterol Nebulized [Ventolin 2.5 mg INHALATION RT-QID PRN 03/09/20 03/27/20 Nebulized] Atorvastatin [Lipitor] 40 mg PO DAILY 03/09/20 03/27/20 Budesonide-Formot 160-4.5 Mcg 2 puff INHALATION RT-BID 03/09/20 03/27/20 [Symbicort 160-4.5 Mcg Inhaler] Bumetanide 2 mg PO BID 03/09/20 03/27/20 FLUoxetine HCL 20 mg PO DAILY 03/09/20 03/27/20 Glimepiride [Amaryl] 2 mg PO DAILY 03/09/20 03/27/20 Insulin Glargine,Hum.rec.anlog 50 units SQ HS 03/09/20 03/27/20 [Toujeo Solostar] Isosorbide Mononitrate ER [Imdur] 30 mg PO DAILY 03/09/20 03/27/20 Levothyroxine Sodium 125 mcg PO DAILY 03/09/20 03/27/20 Metoprolol Tartrate [Lopressor] 50 mg PO BID 03/09/20 03/27/20 Montelukast Sodium [Singulair] 10 mg PO HS 03/09/20 03/27/20 Nitroglycerin Sl Tabs [Nitrostat] 0.4 mg SUBLINGUAL Q5M PRN 03/09/20 03/27/20 Potassium Chloride ER [K-Dur 10] 10 meq PO BID 03/09/20 03/27/20 amLODIPine [Norvasc] 10 mg PO DAILY 03/09/20 03/27/20 methocarbamoL [Robaxin] 500 mg PO BID 03/09/20 03/27/20 rOPINIRole HCL [Requip] 2 mg PO BID 03/09/20 03/27/20 sitaGLIPtin [Januvia] 100 mg PO DAILY 03/09/20 03/27/20 INSULIN ASPART (NovoLOG) [NovoLOG See Protocol SQ ACHS 03/27/20 03/27/20 (formulary)] Sennosides-Docusate Sodium 1 tab PO BID 03/27/20 03/27/20 [Senokot-S] Previous Rx's Medication Instructions Recorded Pantoprazole [Protonix] 40 mg PO BID #0 03/17/20 Pregabalin [Lyrica] 200 mg PO BID #6 cap 03/17/20 acetaZOLAMIDE [Diamox] 250 mg PO DAILY #30 tablet 03/17/20 polyethylene glycoL 3350 [Miralax] 17 gm PO DAILY powd.pack 03/17/20 Allergies Allergy/AdvReac Type Severity Reaction Status Date / Time cisatracurium [From Nimbex] Allergy Rash/Hives Verified 03/27/20 16:08 Review of Systems ROS Statement: Those systems with pertinent positive or pertinent negative responses have been documented in the HPI. ROS Other: All systems not noted in ROS Statement are negative. Constitutional: Denies: fever Eyes: Denies: eye pain ENT: Denies: ear pain Respiratory: Reports: dyspnea. Denies: cough Cardiovascular: Denies: chest pain Endocrine: Reports: fatigue Gastrointestinal: Denies: abdominal pain Genitourinary: Denies: dysuria Musculoskeletal: Denies: back pain Skin: Denies: rash Neurological: Denies: weakness Past Medical History Past Medical History: Heart Failure, COPD, GI Bleed, Respiratory Disorder Additional Past Medical History / Comment(s): heart murmur, neuropathy Last Myocardial Infarction Date:: 2018 History of Any Multi-Drug Resistant Organisms: None Reported Date of last positivie culture/infection: 04/2019 MDRO Source:: URINE Past Surgical History: Section, Cholecystectomy, Heart Catheterization, Hysterectomy, Orthopedic Surgery Additional Past Surgical History / Comment(s): Gi cauterization 02/22/2020; heart cath 12/26/2019; cataracts removal, lens placement. Past Anesthesia/Blood Transfusion Reactions: Previous Problems w/ Anesthesia Additional Past Anesthesia/Blood Transfusion Reaction / Comment(s): ALLERGY TO CISATRACURIUM- FACE TURNED RED/SWOLLEN Past Psychological History: No Psychological Hx Reported Smoking Status: Former smoker Past Alcohol Use History: None Reported Past Drug Use History: None Reported General Exam Limitations: no limitations General appearance: alert Head exam: Present: normocephalic Eye exam: Present: normal appearance ENT exam: Present: normal oropharynx Neck exam: Present: normal inspection Respiratory exam: Present: rales, decreased breath sounds Cardiovascular Exam: Present: regular rate, normal rhythm, systolic murmur GI/Abdominal exam: Present: soft. Absent: tenderness Extremities exam: Present: pedal edema. Absent: calf tenderness Neurological exam: Present: alert Psychiatric exam: Present: normal affect, normal mood Skin exam: Present: normal color Course Vital Signs 03/27/20 03/27/20 03/27/20 13:56 14:16 14:21 Temperature 98.3 F Pulse Rate 80 80 85 Respiratory 25 H Rate Blood Pressure 99/48 O2 Sat by Pulse 68 L Oximetry 03/27/20 03/27/20 03/27/20 14:22 14:59 15:00 Temperature Pulse Rate 71 72 Respiratory 24 22 22 Rate Blood Pressure 132/91 139/73 O2 Sat by Pulse 100 92 L Oximetry 03/27/20 16:00 Temperature Pulse Rate 68 Respiratory 22 Rate Blood Pressure 133/76 O2 Sat by Pulse 92 L Oximetry - Reevaluation(s) Reevaluation #1: 03/27/20 16:52 Patient does meet sepsis criteria diagnosed at 1650. Blood culture and lactic acid have been ordered. IV antibiotics will be ordered. EKG Findings - EKG Comments: EKG Findings:: Sinus rhythm 73. ME 150. QRS 94. QT 398. QTC 438. Normal axis. Motion artifact is present. No acute ST change. Normal QRS. Medical Decision Making - Medical Decision Making Patient reevaluated and resting comfortably in bed. Pulse ox 90% on Ventimask. Patient updated on results and plan. Case was discussed in detail with Dr. Deras, who will admit his patient. He does request pulmonary consult and treat for pneumonia and COPD. There is moderate suspicion for Coronavirus on this patient. - Lab Data Result diagrams: 03/27/20 14:16 03/27/20 14:16 Lab Results 03/27/20 03/27/20 03/27/20 Range/Units 14:16 14:16 14:16 WBC 18.2 H (3.8-10.6) k/uL RBC 3.60 L (3.80-5.40) m/uL Hgb 8.8 L (11.4-16.0) gm/dL Hct 31.2 L (34.0-46.0) % MCV 86.6 D (80.0-100.0) fL MCH 24.5 L (25.0-35.0) pg MCHC 28.3 L (31.0-37.0) g/dL RDW 18.4 H (11.5-15.5) % Plt Count 384 (150-450) k/uL Neutrophils % 84 % Lymphocytes % 6 % Monocytes % 5 % Eosinophils % 2 % Basophils % 1 % Neutrophils # 15.3 H (1.3-7.7) k/uL Lymphocytes # 1.2 (1.0-4.8) k/uL Monocytes # 1.0 (0-1.0) k/uL Eosinophils # 0.3 (0-0.7) k/uL Basophils # 0.1 (0-0.2) k/uL Manual Slide Review Performed Hypochromasia Marked Poikilocytosis Moderate Anisocytosis Slight PT 9.5 (9.0-12.0) sec INR 0.9 (<1.2) APTT 23.9 (22.0-30.0) sec Sodium 139 (137-145) mmol/L Potassium 4.2 (3.5-5.1) mmol/L Chloride 100 (98-107) mmol/L Carbon Dioxide 30 (22-30) mmol/L Anion Gap 9 mmol/L BUN 32 H (7-17) mg/dL Creatinine 1.06 H (0.52-1.04) mg/dL Est GFR (CKD-EPI)AfAm 63 (>60 ml/min/1.73 sqM) Est GFR (CKD-EPI)NonAf 55 (>60 ml/min/1.73 sqM) Glucose 243 H (74-99) mg/dL POC Glucose (mg/dL) (75-99) mg/dL POC Glu Digital Manager ID Plasma Lactic Acid Itz (0.7-2.0) mmol/L Calcium 8.9 (8.4-10.2) mg/dL Total Bilirubin 0.5 (0.2-1.3) mg/dL AST 23 (14-36) U/L ALT 20 (4-34) U/L Alkaline Phosphatase 165 H (38-126) U/L Troponin I (0.000-0.034) ng/mL Total Protein 7.1 (6.3-8.2) g/dL Albumin 4.1 (3.5-5.0) g/dL 03/27/20 03/27/20 03/27/20 Range/Units 14:16 14:16 14:20 WBC (3.8-10.6) k/uL RBC (3.80-5.40) m/uL Hgb (11.4-16.0) gm/dL Hct (34.0-46.0) % MCV (80.0-100.0) fL MCH (25.0-35.0) pg MCHC (31.0-37.0) g/dL RDW (11.5-15.5) % Plt Count (150-450) k/uL Neutrophils % % Lymphocytes % % Monocytes % % Eosinophils % % Basophils % % Neutrophils # (1.3-7.7) k/uL Lymphocytes # (1.0-4.8) k/uL Monocytes # (0-1.0) k/uL Eosinophils # (0-0.7) k/uL Basophils # (0-0.2) k/uL Manual Slide Review Hypochromasia Poikilocytosis Anisocytosis PT (9.0-12.0) sec INR (<1.2) APTT (22.0-30.0) sec Sodium (137-145) mmol/L Potassium (3.5-5.1) mmol/L Chloride (98-107) mmol/L Carbon Dioxide (22-30) mmol/L Anion Gap mmol/L BUN (7-17) mg/dL Creatinine (0.52-1.04) mg/dL Est GFR (CKD-EPI)AfAm (>60 ml/min/1.73 sqM) Est GFR (CKD-EPI)NonAf (>60 ml/min/1.73 sqM) Glucose (74-99) mg/dL POC Glucose (mg/dL) 239 H (75-99) mg/dL POC Glu Digital Manager ID Keyanna Garay Plasma Lactic Acid Itz 2.0 (0.7-2.0) mmol/L Calcium (8.4-10.2) mg/dL Total Bilirubin (0.2-1.3) mg/dL AST (14-36) U/L ALT (4-34) U/L Alkaline Phosphatase (38-126) U/L Troponin I <0.012 (0.000-0.034) ng/mL Total Protein (6.3-8.2) g/dL Albumin (3.5-5.0) g/dL - Radiology Data Radiology results: image reviewed (Chest x-ray is concerning for some int erstitial infiltrates ) Critical Care Time Critical Care Time: Yes Total Critical Care Time: 32 Disposition Clinical Impression: Acute exacerbation of chronic obstructive pulmonary disease, Pneumonia, Sepsis Disposition: ADMITTED IP TO THIS [facility] Condition: Serious Is patient prescribed a controlled substance at d/c from ED?: No Referrals: Yoel Deras MD [Primary Care Provider] - 1-2 days Decision Time: 16:54
[2020-03-27 14:21] LABS: Glucose,Whole Blood 239 mg/dL (75-99)
--- NOTE | 2020-03-27 14:40 | XR ---
EXAMINATION TYPE: XR chest 2V DATE OF EXAM: 03/27/2020 COMPARISON: 03/17/2020 HISTORY: Shortness of breath TECHNIQUE: Frontal and lateral views of the chest are obtained. FINDINGS: Scattered senescent parenchymal changes noted. Hyperinflation compatible with COPD. Patchy perihilar infiltrates are noted. Correlate for underlying pneumonia. Heart size is stable. Mediastinal structures are stable and grossly unremarkable. No evidence for hilar prominence. Degenerative changes dorsal spine. IMPRESSION: 1. Patchy perihilar infiltrates are noted. Correlate for underlying pneumonia.
[2020-03-27 14:47] LABS: Albumin 4.1 g/dL (3.5-5.0); Calcium 8.9 mg/dL (8.4-10.2); Potassium 4.2 mmol/L (3.5-5.1); Total Bilirubin 0.5 mg/dL (0.2-1.3); Total Protein 7.1 g/dL (6.3-8.2)
[2020-03-27 15:02] LABS: Anisocytosis Slight; Basophils # (A) 0.1 k/uL (0-0.2); Basophils % (A) 1 %; Eosinophils # (A) 0.3 k/uL (0-0.7); Eosinophils % (A) 2 %; HCT 31.2 % (34.0-46.0); HGB 8.8 gm/dL (11.4-16.0); Hypochromasia Marked; Lymphocytes # (A) 1.2 k/uL (1.0-4.8); Lymphocytes % (A) 6 %; MCH 24.5 pg (25.0-35.0); MCHC 28.3 g/dL (31.0-37.0); Mean Platelet Volume 8.4; Monocytes % (A) 5 %; Neutrophils # (A) 15.3 k/uL (1.3-7.7); Neutrophils % (A) 84 %; Platelet Count 384 k/uL (150-450); Poikilocytosis Moderate; RDW 18.4 % (11.5-15.5); WBC 18.2 k/uL (3.8-10.6)
[2020-03-27 15:10] LABS: MCV 86.6 fL (80.0-100.0)
[2020-03-27] MEDS ORDERED: cefTRIAXone IN SWFI 1,000 MG/10 ML SYRINGE IVP STA (15:13)
[2020-03-27 15:44] LABS: INR 0.9 (<1.2); Partial Thromboplastin Time 23.9 sec (22.0-30.0); Prothrombin Time 9.5 sec (9.0-12.0)
[2020-03-27] MEDS ORDERED: methylPREDNISolone SOD SUCCI 125 MG/2 ML VIAL IV STA (16:54)
[2020-03-27] MEDS ORDERED: PNEUMONIA PROTOCOL UTILIZED 1 EACH MISC PO PRN (16:54)
[2020-03-27] MEDS ORDERED: AZITHROMYCIN 500 MG in SODIUM CHLORIDE 0.9% 250 ML IVPB STA (16:54)
[2020-03-27] MEDS ORDERED: IPRATROPIUM-ALBUTEROL 3 ML NEB INHALATION PRN (16:54)
[2020-03-27] MEDS ORDERED: ALBUTEROL HFA INHALER INHALATION PRN (19:09)
[2020-03-27] MEDS ORDERED: NITROGLYCERIN SL TABS 0.4 MG TAB SUBLINGUAL PRN (19:09)
[2020-03-27] MEDS ORDERED: ALBUTEROL NEBULIZED 2.5 MG/3 ML INHALATION PRN (19:09)
[2020-03-27] MEDS: SYMBICORT 160-4.5 MCG INHALER INHALATION SCH (20:46)
[2020-03-27] MEDS ORDERED: FUROSEMIDE 10 MG/ML 4 ML VIAL IV SCH ×2 (21:00)
[2020-03-27] MEDS ORDERED: INSULIN DETEMIR (LEVEMIR) 100 UNIT/ML SYR SQ SCH (21:00)
[2020-03-27] MEDS ORDERED: INSULIN ASPART (NovoLOG) 100 UNIT/ML VIAL SQ SCH (21:00)
[2020-03-27] MEDS ORDERED: BUMETANIDE 1 MG TAB PO SCH (21:00)
[2020-03-27] MEDS: IPRATROPIUM-ALBUTEROL 3 ML NEB INHALATION SCH (21:25)
[2020-03-27 21:31] LABS: Glucose,Whole Blood 248 mg/dL (75-99)
[2020-03-27] MEDS: METOPROLOL TARTRATE 50 MG TAB PO SCH (21:36)
[2020-03-27] MEDS: PANTOPRAZOLE 40 MG TABLET PO SCH (21:36)
[2020-03-27] MEDS: MONTELUKAST 10 MG TAB PO SCH (21:36)
[2020-03-27] MEDS: SENNOSIDES-DOCUSATE SODIUM 1 EACH TAB PO SCH (21:57)
[2020-03-27] MEDS: POTASSIUM CHLORIDE ER 10 MEQ TAB.ER.PRT PO SCH (21:57)
[2020-03-27] MEDS: INSULIN ASPART (NovoLOG) 100 UNIT/ML VIAL SQ SCH (22:00)
[2020-03-27] MEDS: methylPREDNISolone SOD SUCCI 125 MG/2 ML VIAL IV SCH (22:44)
[2020-03-27] MEDS: methocarbamoL 500 MG TAB PO SCH (22:44)
[2020-03-27] MEDS: PREGABALIN 100 MG CAP PO SCH (22:44)
[2020-03-28 06:18] LABS: Glucose,Whole Blood 420 mg/dL (75-99)
[2020-03-28] MEDS ORDERED: INSULIN ASPART (NovoLOG) 100 UNIT/ML VIAL SQ ONE ×2 (06:19→14:30)
[2020-03-28] MEDS: methylPREDNISolone SOD SUCCI 125 MG/2 ML VIAL IV SCH ×4 (06:26→23:16)
[2020-03-28] MEDS: LEVOTHYROXINE 125 MCG TAB PO SCH (06:26)
[2020-03-28] MEDS: INSULIN ASPART (NovoLOG) 100 UNIT/ML VIAL SQ SCH ×5 (06:27→17:03)
--- NOTE | 2020-03-28 07:00 | XR ---
EXAMINATION TYPE: XR chest 1V DATE OF EXAM: 03/28/2020 HISTORY: Shortness of breath. COMPARISON: 03/27/2020 TECHNIQUE: Single view of the chest is submitted. FINDINGS: Demonstrated are scattered senescent parenchymal change. Persistent perihilar and basilar infiltrates. Correlate for pneumonia. Progress studies are advised. The heart is stable. Hilar and mediastinal structures are within normal limits. Degenerative changes are seen of the dorsal spine. IMPRESSION: 1. Persistent perihilar and basilar infiltrates. Correlate for pneumonia. Progress studies are advis ed.
[2020-03-28 07:50] LABS: Glucose,Whole Blood 386 mg/dL (75-99)
[2020-03-28] MEDS: acetaZOLAMIDE 250 MG TAB PO SCH (08:19)
[2020-03-28] MEDS: ATORVASTATIN 40 MG TAB PO SCH (08:19)
[2020-03-28] MEDS: amLODIPine 10 MG TAB PO SCH (08:19)
[2020-03-28] MEDS: ISOSORBIDE MONONITRATE ER 30 MG TAB.ER.24H PO SCH (08:20)
[2020-03-28] MEDS: FLUoxetine HCL 20 MG CAP PO SCH (08:20)
[2020-03-28] MEDS: methocarbamoL 500 MG TAB PO SCH ×2 (08:21→21:14)
[2020-03-28] MEDS: PANTOPRAZOLE 40 MG TABLET PO SCH ×2 (08:21→21:07)
[2020-03-28] MEDS: METOPROLOL TARTRATE 50 MG TAB PO SCH ×2 (08:21→21:07)
[2020-03-28] MEDS: POTASSIUM CHLORIDE ER 10 MEQ TAB.ER.PRT PO SCH ×2 (08:21→21:07)
[2020-03-28] MEDS: polyethylene glycoL 3350 17 GM POWD.PACK PO SCH (08:21)
[2020-03-28] MEDS: SENNOSIDES-DOCUSATE SODIUM 1 EACH TAB PO SCH ×2 (08:22→21:07)
[2020-03-28] MEDS: PREGABALIN 100 MG CAP PO SCH ×2 (08:22→21:07)
[2020-03-28] MEDS ORDERED: GLIMEPIRIDE 2 MG TAB PO SCH (09:00)
[2020-03-28] MEDS ORDERED: BUMETANIDE 1 MG TAB PO SCH (09:00)
[2020-03-28] MEDS ORDERED: LINAGLIPTIN 5 MG TABLET PO SCH (09:00)
[2020-03-28] MEDS: IPRATROPIUM-ALBUTEROL 3 ML NEB INHALATION SCH ×4 (09:32→20:37)
[2020-03-28] MEDS: SYMBICORT 160-4.5 MCG INHALER INHALATION SCH ×2 (09:32→20:37)
--- NOTE | 2020-03-28 09:57 | P.HPIM ---
History of Present Illness H&P Date: 03/27/20 Chief Complaint: Acute respiratory failure, severe dyspnea and shortness of breath, congesti 65-year-old female one of my office patient who was in the hospital 10 days ago for acute gastrointestinal bleed and severe anemia was known to have advanced COPD on home BiPAP and oxygen history of diastolic congestive heart failure and valvular heart disease along with pulmonary hypertension who called the office with severe hypoxia was instructed to go to the emergency department her family drove her to the emergency department at [facility] where was seen and evaluated found to be in respiratory distress was started on high flow O2 and then BiPAP patient also found to be in fluid overload was giving IV diuretics start updraft treatment steroid had questionable of infiltrate in the bases mostly on the right side with question of aspiration pneumonia as well. Her troponin was low white blood cell was 18,000 hemoglobin remained stable at 8.8 from the time she left the hospital a week ago. Patient was hospitalized with acute respiratory failure secondary to COPD exacerbation, CHF exacerbation and bilateral pneumonia. Review of Systems CONSTITUTIONAL: Well-developed no acute respiratory distress. EYES: No icterus sclerae, no conjunctivitis. EARS, NOSE, MOUTH, THROAT, and FACE: No sore throat, lymphadenopathy, carotid bruits or deformity. RESPIRATORY: Positive dyspnea and shortness of breath positive cough positive wheezes. CARDIOVASCULAR: Positive PND orthopnea palpitation with no chest pain. GASTROINTESTINAL: No Abd pain, Nausea or vomiting, no Diarrhea or constipation, No GI Bleed, no distention or masses. GENITOURINARY: Negative for Hematuria or UTI, no kidney stones. INTEGUMENT/BREAST: Negative for any muscular injury with mild osteoarthritis. More fluid retention.. HEMATOLOGIC/LYMPHATIC: Negative for bleed or purpura. MUSCULOSKELTAL: Negative for Myalgia or arthralgia. NEURLOGICAL: No LOC, Sz or syncope, blurred vision dizziness or abnormality.. BEHAVIORAL/PSYCH: Negative. ENDOCRINE: Negative. Past Medical History Past Medical History: Heart Failure, COPD, GI Bleed, Respiratory Disorder Additional Past Medical History / Comment(s): heart murmur, neuropathy Last Myocardial Infarction Date:: 2018 History of Any Multi-Drug Resistant Organisms: None Reported Date of last positivie culture/infection: 04/2019 MDRO Source:: URINE Past Surgical History: Section, Cholecystectomy, Heart Catheterization, Hysterectomy, Orthopedic Surgery Additional Past Surgical History / Comment(s): Gi cauterization 02/22/2020; heart cath 12/26/2019; cataracts removal, lens placement. Past Anesthesia/Blood Transfusion Reactions: Previous Problems w/ Anesthesia Additional Past Anesthesia/Blood Transfusion Reaction / Comment(s): ALLERGY TO CISATRACURIUM- FACE TURNED RED/SWOLLEN Past Psychological History: No Psychological Hx Reported Smoking Status: Former smoker Past Alcohol Use History: None Reported Past Drug Use History: None Reported - Past Family History Mother Family Medical History: Renal Disease Additional Family Medical History / Comment(s): Mother was on Hemodilaysis Medications and Allergies Home Medications Medication Instructions Recorded Confirmed Type Albuterol Inhaler [Ventolin Hfa 1 - 2 puff INHALATION RT-QID PRN 03/09/20 03/27/20 History Inhaler] Albuterol Nebulized [Ventolin 2.5 mg INHALATION RT-QID PRN 03/09/20 03/27/20 History Nebulized] Atorvastatin [Lipitor] 40 mg PO DAILY 03/09/20 03/27/20 History Budesonide-Formot 160-4.5 Mcg 2 puff INHALATION RT-BID 03/09/20 03/27/20 History [Symbicort 160-4.5 Mcg Inhaler] Bumetanide 2 mg PO BID 03/09/20 03/27/20 History FLUoxetine HCL 20 mg PO DAILY 03/09/20 03/27/20 History Glimepiride [Amaryl] 2 mg PO DAILY 03/09/20 03/27/20 History Insulin Glargine,Hum.rec.anlog 50 units SQ 03/09/20 03/27/20 History [Toujeo Solostar] Isosorbide Mononitrate ER [Imdur] 30 mg PO DAILY 03/09/20 03/27/20 History Levothyroxine Sodium 125 mcg PO DAILY 03/09/20 03/27/20 History Metoprolol Tartrate [Lopressor] 50 mg PO BID 03/09/20 03/27/20 History Montelukast Sodium [Singulair] 10 mg PO HS 03/09/20 03/27/20 History Nitroglycerin Sl Tabs [Nitrostat] 0.4 mg SUBLINGUAL Q5M PRN 03/09/20 03/27/20 History Potassium Chloride ER [K-Dur 10] 10 meq PO BID 03/09/20 03/27/20 History amLODIPine [Norvasc] 10 mg PO DAILY 03/09/20 03/27/20 History methocarbamoL [Robaxin] 500 mg PO BID 03/09/20 03/27/20 History rOPINIRole HCL [Requip] 2 mg PO BID 03/09/20 03/27/20 History sitaGLIPtin [Januvia] 100 mg PO DAILY 03/09/20 03/27/20 History Pantoprazole [Protonix] 40 mg PO BID #0 03/17/20 03/27/20 Rx Pregabalin [Lyrica] 200 mg PO BID #6 cap 03/17/20 03/27/20 Rx acetaZOLAMIDE [Diamox] 250 mg PO DAILY #30 tablet 03/17/20 03/27/20 Rx polyethylene glycoL 3350 [Miralax] 17 gm PO DAILY powd.pack 03/17/20 03/27/20 Rx INSULIN ASPART (NovoLOG) [NovoLOG See Protocol SQ ACHS 03/27/20 03/27/20 History (formulary)] Sennosides-Docusate Sodium 1 tab PO BID 03/27/20 03/27/20 History [Senokot-S] Allergies Allergy/AdvReac Type Severity Reaction Status Date / Time cisatracurium [From Nimbex] Allergy Rash/Hives Verified 03/27/20 16:08 Physical Exam Vitals: Vital Signs Temp Pulse Resp BP Pulse Ox 03/27/20 18:00 68 22 147/96 92 L 03/27/20 17:00 65 22 127/96 92 L 03/27/20 16:00 68 22 133/76 92 L 03/27/20 15:00 72 22 139/73 92 L 03/27/20 14:59 71 22 132/91 100 03/27/20 14:22 24 03/27/20 14:21 85 03/27/20 14:16 80 03/27/20 13:56 98.3 F 80 25 H 99/48 68 L Intake and Output 03/27/20 03/27/20 03/27/20 06:59 14:59 22:59 Other: Weight 113.398 kg General Appearance: Alert, cooperative, no distress, appears stated age. Neck HEENT: Supple, no lymphadenopathy, no thyroid enlargement, no carotid bruits. Lungs: Decreased breath some bilateral fine rhonchi positive crackles in the base especially the right side positive mild inspiratory expiratory wheezes more midway and higher. Chest Wall: Decrease expansion with deep inspiration no tenderness and no deformity was found on exam, no costochondral pain or discomfort. Heart: Regular rate and rhythm, S1, S2 positive S3 positive midsystolic murmur radiating toward the right second intercostal space. Back: Symmetric, no curvature, ROM normal, no CVA tenderness. Abdomen: Soft, non-tender, bowel sounds active all four quadrants, no masses, no organomegaly. Extremities: 1+ edema decreased pulse bilaterally with mild arthritis in both knees. Pulses: 2+ and symmetric. Skin: Skin color, texture, tugor normal, no rashes or lesions. Neurologic: Alert oriented x3 cranial nerves II through XII intact, no motor deficit, no abnormal balance or gait. Results CBC & Chem 7: 03/27/20 14:16 03/27/20 14:16 Labs: Abnormal Lab Results - Last 24 Hours (Table) 03/27/20 03/27/20 03/27/20 Range/Units 14:16 14:16 14:20 WBC 18.2 H (3.8-10.6) k/uL RBC 3.60 L (3.80-5.40) m/uL Hgb 8.8 L (11.4-16.0) gm/dL Hct 31.2 L (34.0-46.0) % MCH 24.5 L (25.0-35.0) pg MCHC 28.3 L (31.0-37.0) g/dL RDW 18.4 H (11.5-15.5) % Neutrophils # 15.3 H (1.3-7.7) k/uL BUN 32 H (7-17) mg/dL Creatinine 1.06 H (0.52-1.04) mg/dL Glucose 243 H (74-99) mg/dL POC Glucose (mg/dL) 239 H (75-99) mg/dL Alkaline Phosphatase 165 H (38-126) U/L Thrombosis Risk Factor Assmnt - DVT/VTE Prophylaxis DVT/VTE Prophylaxis: Pharmacologic Prophylaxis ordered, Mechanical Prophylaxis ordered Assessment and Plan Assessment: 1 acute respiratory failure: Combination of COPD exacerbation and CHF ex acerbation along with pneumonia and pulmonary hypertension will continue O2 updraft treatment diuretics steroid consult pulmonary. 2 COPD exacerbation: Patient will be on Solu-Medrol, DuoNeb, Pulmicort consult pulmonary continue Diamox as well. 3 CHF exacerbation: Mostly diastolic congestive heart failure acute on chronic and with the severity of the pulmonary hypertension and valvular heart disease will continue patient on furosemide 40 mg IV twice a day we'll consult cardiology this point. 4 bilateral pneumonia with possible gram-negative possible aspiration along with the potential of hospital-acquired pneumonia been in the hospital a few times last few weeks patient was giving 1 dose of Rocephin and azithromycin with switch patient to gram-negative coverage with Zosyn and possible Levaquin continue to watch for any sputum culture blood culture. 5 moderate to severe aortic stenosis with valvular heart disease: Her echo from last time was very positive patient is not in any condition currently for intervention continue medical management for now. 6 moderate to severe pulmonary hypertension: Eventually patient might need right-sided heart catheter in the meanwhile if she is able to tolerate calcium channel ira and titrate diuretics. 7 acute with recurrent gastrointestinal bleed: Last time was 2 weeks ago, since her last upper gastroscopy with intervention has not had any further bleeding hemoglobin is stable and holding well at this point. 8 acute kidney injury: With stage II chronic kidney disease continue to watch her kidney function and daily basis continue to watch her urine output. 9 type 2 diabetes on insulin: Patient has been on Januvia along with NovoLog and Lantus titrate medication specially been on steroid. 10 chronic pain management: Still on mild dose of hydrocodone along with Lyrica for chronic pain syndrome and chronic lower back pain. 11 hypertension: Remain on amlodipine and metoprolol. 12 hypothyroidism: Continue patient on levothyroxine 125 g daily. 13 restless leg syndrome: Remain on Requip 2 mg twice a day. 14 GI prophylaxis: Patient will be on pantoprazole. 16 DVT prophylaxis: Early mobilization and knee-high FILEMON hose. CODE STATUS: Full code. Admit patient to the inpatient service for more than 2 night stay.
[2020-03-28 10:05] LABS: Albumin 3.8 g/dL (3.5-5.0); Calcium 8.9 mg/dL (8.4-10.2); Potassium 4.7 mmol/L (3.5-5.1); Total Bilirubin 0.3 mg/dL (0.2-1.3); Total Protein 6.7 g/dL (6.3-8.2)
[2020-03-28 10:15] LABS: Anisocytosis Slight; Basophils % (A) 0 %; Eosinophils % (A) 0 %; HCT 29.8 % (34.0-46.0); HGB 7.8 gm/dL (11.4-16.0); Hypochromasia Marked; Lymphocytes # (A) 0.8 k/uL (1.0-4.8); Lymphocytes % (A) 6 %; MCH 23.7 pg (25.0-35.0); MCHC 26.3 g/dL (31.0-37.0); MCV 90.4 fL (80.0-100.0); Mean Platelet Volume 7.2; Monocytes # (A) 0.2 k/uL (0-1.0); Monocytes % (A) 1 %; Neutrophils # (A) 12.3 k/uL (1.3-7.7); Neutrophils % (A) 92 %; Platelet Count 324 k/uL (150-450); Poikilocytosis Moderate; RBC 3.29 m/uL (3.80-5.40); RDW 17.6 % (11.5-15.5); WBC 13.4 k/uL (3.8-10.6)
--- NOTE | 2020-03-28 10:33 | P.PN ---
Subjective Progress Note Date: 03/28/20 65-year-old female one of my office patient who was in the hospital 10 days ago for acute gastrointestinal bleed and severe anemia was known to have advanced COPD on home BiPAP and oxygen history of diastolic congestive heart failure and valvular heart disease along with pulmonary hypertension who called the office with severe hypoxia was instructed to go to the emergency department her family drove her to the emergency department at [facility] where was seen and evaluated found to be in respiratory distress was started on high flow O2 and then BiPAP patient also found to be in fluid overload was giving IV diuretics start updraft treatment steroid had questionable of infiltrate in the bases mostly on the right side with question of aspiration pneumonia as well. Her troponin was low white blood cell was 18,000 hemoglobin remained stable at 8.8 from the time she left the hospital a week ago. Patient was hospitalized with acute respiratory failure secondary to COPD exacerbation, CHF exacerbation and bilateral pneumonia. 03/28: Patient seen this morning sitting on edge of bed. Chest x-ray revealed persistent perihilar and basilar infiltrates, correlate for pneumonia. Patient currently on azithromycin and Rocephin IV. White blood cells 13.4, hemoglobin 7.8, sodium 136, BUN 34, creatinine 1.09. Blood sugars were elevated at 416 this morning patient received insulin coverage along with sliding scale and oral agents, we'll continue to monitor likely from IV steroids. Patient currently on Solumedrol 60 mg every 6 hours. Breathing has somewhat improved today. Consults for cardiology and pulmonology are in place. Patient will be diuresis with 40 IV Lasix every 12 hours. We'll continue to monitor patient closely Review of Systems CONSTITUTIONAL: Well-developed no acute respiratory distress. EYES: No icterus sclerae, no conjunctivitis. EARS, NOSE, MOUTH, THROAT, and FACE: No sore throat, lymphadenopathy, carotid bruits or deformity. RESPIRATORY: Positive dyspnea and shortness of breath positive cough positive wheezes. CARDIOVASCULAR: Positive PND orthopnea palpitation with no chest pain. GASTROINTESTINAL: No Abd pain, Nausea or vomiting, no Diarrhea or constipation, No GI Bleed, no distention or masses. GENITOURINARY: Negative for Hematuria or UTI, no kidney stones. INTEGUMENT/BREAST: Negative for any muscular injury with mild osteoarthritis. More fluid retention.. HEMATOLOGIC/LYMPHATIC: Negative for bleed or purpura. MUSCULOSKELTAL: Negative for Myalgia or arthralgia. Chronic back pain NEURLOGICAL: No LOC, Sz or syncope, blurred vision dizziness or abnormality.. BEHAVIORAL/PSYCH: Negative. ENDOCRINE: Negative. Objective - Vital Signs Vital signs: Vital Signs Temp 98 F 03/28/20 08:00 Pulse 80 03/28/20 09:48 Resp 26 H 03/28/20 08:00 BP 122/60 03/28/20 08:00 Pulse Ox 90 L 03/28/20 08:00 Intake & Output 03/27/20 03/28/20 03/28/20 18:59 06:59 18:59 Intake Total 300 240 Output Total 600 Balance -300 240 Weight 113.398 kg 113.5 kg Intake: Intake, IV Titration 300 Amount Azithromycin 500 mg In 250 Sodium Chloride 0.9% 250 ml @ 250 mls/hr IVPB ONCE STA Rx#:[id number] cefTRIAXone 2 gm In 50 Sodium Chloride 0.9% 50 ml @ 100 mls/hr IVPB Q24H [facility] Rx#:[id number] Oral 240 Output: Urine 600 Other: Voiding Method Bedside Commode Bedside Commode - Exam General Appearance: Alert, cooperative, no distress, appears stated age. Neck HEENT: Supple, no lymphadenopathy, no thyroid enlargement, no carotid bruits. Lungs: Decreased breath some bilateral fine rhonchi positive crackles in the base especially the right side, mild scattered wheezes Chest Wall: Decrease expansion with deep inspiration no tenderness and no deformity was found on exam, no costochondral pain or discomfort. Heart: Regular rate and rhythm, S1, S2 positive S3 positive midsystolic murmur radiating toward the right second intercostal space. Back: Symmetric, no curvature, ROM normal, no CVA tenderness. Abdomen: Soft, non-tender, bowel sounds active all four quadrants, no masses, no organomegaly. Extremities: 1+ edema decreased pulse bilaterally with mild arthritis in both knees. Pulses: 2+ and symmetric. Skin: Skin color, texture, tugor normal, no rashes or lesions. Neurologic: Alert oriented x3 cranial nerves II through XII intact, no motor deficit, no abnormal balance or gait. - Labs CBC & Chem 7: 03/28/20 08:57 03/28/20 08:57 Labs: Abnormal Lab Results - Last 24 Hours (Table) 03/27/20 03/27/20 03/27/20 Range/Units 14:16 14:16 14:20 WBC 18.2 H (3.8-10.6) k/uL RBC 3.60 L (3.80-5.40) m/uL Hgb 8.8 L (11.4-16.0) gm/dL Hct 31.2 L (34.0-46.0) % MCH 24.5 L (25.0-35.0) pg MCHC 28.3 L (31.0-37.0) g/dL RDW 18.4 H (11.5-15.5) % Neutrophils # 15.3 H (1.3-7.7) k/uL Lymphocytes # (1.0-4.8) k/uL Sodium (137-145) mmol/L BUN 32 H (7-17) mg/dL Creatinine 1.06 H (0.52-1.04) mg/dL Glucose 243 H (74-99) mg/dL POC Glucose (mg/dL) 239 H (75-99) mg/dL Alkaline Phosphatase 165 H (38-126) U/L 03/27/20 03/28/20 03/28/20 Range/Units 21:29 06:05 07:48 WBC (3.8-10.6) k/uL RBC (3.80-5.40) m/uL Hgb (11.4-16.0) gm/dL Hct (34.0-46.0) % MCH (25.0-35.0) pg MCHC (31.0-37.0) g/dL RDW (11.5-15.5) % Neutrophils # (1.3-7.7) k/uL Lymphocytes # (1.0-4.8) k/uL Sodium (137-145) mmol/L BUN (7-17) mg/dL Creatinine (0.52-1.04) mg/dL Glucose (74-99) mg/dL POC Glucose (mg/dL) 248 H 420 H 386 H (75-99) mg/dL Alkaline Phosphatase (38-126) U/L 03/28/20 03/28/20 Range/Units 08:57 08:57 WBC 13.4 H (3.8-10.6) k/uL RBC 3.29 L (3.80-5.40) m/uL Hgb 7.8 L (11.4-16.0) gm/dL Hct 29.8 L (34.0-46.0) % MCH 23.7 L (25.0-35.0) pg MCHC 26.3 L (31.0-37.0) g/dL RDW 17.6 H (11.5-15.5) % Neutrophils # 12.3 H (1.3-7.7) k/uL Lymphocytes # 0.8 L (1.0-4.8) k/uL Sodium 136 L (137-145) mmol/L BUN 34 H (7-17) mg/dL Creatinine 1.09 H (0.52-1.04) mg/dL Glucose 416 H (74-99) mg/dL POC Glucose (mg/dL) (75-99) mg/dL Alkaline Phosphatase 155 H (38-126) U/L Assessment and Plan Assessment: 1 acute respiratory failure: Combination of COPD exacerbation and CHF exacerbation along with pneumonia and pulmonary hypertension will continue O2 updraft treatment diuretics steroid consult pulmonary. 2 COPD exacerbation: Patient will be on Solu-Medrol, DuoNeb, Pulmicort consult pulmonary continue Diamox as well. 3 CHF exacerbation: Mostly diastolic congestive heart failure acute on chronic and with the severity of the pulmonary hypertension and valvular heart disease will continue patient on furosemide 40 mg IV twice a day we'll consult cardiology this point. 4 bilateral pneumonia with possible gram-negative possible aspiration along with the potential of hospital-acquired pneumonia been in the hospital a few times last few weeks patient was giving 1 dose of Rocephin and azithromycin with switch patient to gram-negative coverage with Zosyn and possible Levaquin continue to watch for any sputum culture blood culture. 5 moderate to severe aortic stenosis with valvular heart disease: Her echo from last time was very positive patient is not in any condition currently for intervention continue medical management for now. 6 moderate to severe pulmonary hypertension: Eventually patient might need right-sided heart catheter in the meanwhile if she is able to tolerate calcium channel ira and titrate diuretics. 7 acute with recurrent gastrointestinal bleed: Last time was 2 weeks ago, since her last upper gastroscopy with intervention has not had any further bleeding hemoglobin is stable and holding well at this point. 8 acute kidney injury: With stage II chronic kidney disease continue to watch her kidney function and daily basis continue to watch her urine output. 9 type 2 diabetes on insulin: Patient has been on Januvia along with NovoLog and Lantus titrate medication specially been on steroid. 10 chronic pain management: Still on mild dose of hydrocodone along with Lyrica for chronic pain syndrome and chronic lower back pain. 11 hypertension: Remain on amlodipine and metoprolol. 12 hypothyroidism: Continue patient on levothyroxine 125 g daily. 13 restless leg syndrome: Remain on Requip 2 mg twice a day. 14 GI prophylaxis: Patient will be on pantoprazole. 16 DVT prophylaxis: Early mobilization and knee-high FILEMON hose. CODE STATUS: Full code. Admit patient to the inpatient service for more than 2 night stay. Impression and plan of care have been directed as dictated by the signing physician. Wendy Garcia nurse practitioner acting as scribe for signing physician.
[2020-03-28] MEDS: FUROSEMIDE 10 MG/ML 4 ML VIAL IV SCH ×2 (10:40→21:08)
[2020-03-28 11:58] LABS: Glucose,Whole Blood 433 mg/dL (75-99)
--- NOTE | 2020-03-28 12:09 | P.CRDCN ---
History of Present Illness Consult date: 03/28/20 Consult reason: congestive heart failure Chief complaint: Shortness of breath History of present illness: This is a 65-year-old female with documented history of recent admission with GI bleed and anemia, she underwent an EGD which showed duodenal injury or ectasia, 2-3 mm in size with small hiatal hernia, COPD, patient also states that she has a history of myocardial infarction in the past, underwent a cardiac catheterization in [place] but no intervention. History of diabetes, hypertension, hyperlipidemia, she is a nonsmoker, history of sleep apnea, obesity, diastolic congestive heart failure. Patient had an echo performed in February which revealed an ejection fraction of 55-60% with moderate aortic stenosis and moderate mitral stenosis. She presented to the hospital on this occasion with symptoms of shortness of breath and cough, nonproductive, worsening over the past couple of days, mild fever. Chest x-ray on admission showed patchy infiltrates bilaterally, EKG showed normal sinus rhythm with nonspecific ST-T wave changes. Chest x-ray #2 showed persistence in infiltrates with some mild congestive cardiac failure, temperature 97.6, blood pressure 115/60 with a heart rate of 7093% on 50% BiPAP. White blood cell count 8.2, hemoglobin 8.8, platelet count 384. Sodium 139, potassium 4.2, BUN 32, creatinine 1.0. Troponin 0.012, BNP level 4100. Patient has also been tested for: Head, the results are currently pending. Past Medical History Past Medical History: Heart Failure, COPD, GI Bleed, Respiratory Disorder Additional Past Medical History / Comment(s): heart murmur, neuropathy Last Myocardial Infarction Date:: 2018 History of Any Multi-Drug Resistant Organisms: None Reported Date of last positivie culture/infection: 04/2019 MDRO Source:: URINE Past Surgical History: Section, Cholecystectomy, Heart Catheterization, Hysterectomy, Orthopedic Surgery Additional Past Surgical History / Comment(s): Gi cauterization 02/22/2020; heart cath 12/26/2019; cataracts removal, lens placement. Past Anesthesia/Blood Transfusion Reactions: Previous Problems w/ Anesthesia Additional Past Anesthesia/Blood Transfusion Reaction / Comment(s): ALLERGY TO CISATRACURIUM- FACE TURNED RED/SWOLLEN Past Psychological History: No Psychological Hx Reported Smoking Status: Former smoker Past Alcohol Use History: None Reported Past Drug Use History: None Reported - Past Family History Mother Family Medical History: Renal Disease Additional Family Medical History / Comment(s): Mother was on Hemodilaysis Medications and Allergies Home Medications Medication Instructions Recorded Confirmed Type Albuterol Inhaler [Ventolin Hfa 1 - 2 puff INHALATION RT-QID PRN 03/09/20 03/27/20 History Inhaler] Albuterol Nebulized [Ventolin 2.5 mg INHALATION RT-QID PRN 03/09/20 03/27/20 History Nebulized] Atorvastatin [Lipitor] 40 mg PO DAILY 03/09/20 03/27/20 History Budesonide-Formot 160-4.5 Mcg 2 puff INHALATION RT-BID 03/09/20 03/27/20 History [Symbicort 160-4.5 Mcg Inhaler] Bumetanide 2 mg PO BID 03/09/20 03/27/20 History FLUoxetine HCL 20 mg PO DAILY 03/09/20 03/27/20 History Glimepiride [Amaryl] 2 mg PO DAILY 03/09/20 03/27/20 History Insulin Glargine,Hum.rec.anlog 50 units SQ HS 03/09/20 03/27/20 History [Toujeo Solostar] Isosorbide Mononitrate ER [Imdur] 30 mg PO DAILY 03/09/20 03/27/20 History Levothyroxine Sodium 125 mcg PO DAILY 03/09/20 03/27/20 History Metoprolol Tartrate [Lopressor] 50 mg PO BID 03/09/20 03/27/20 History Montelukast Sodium [Singulair] 10 mg PO HS 03/09/20 03/27/20 History Nitroglycerin Sl Tabs [Nitrostat] 0.4 mg SUBLINGUAL Q5M PRN 03/09/20 03/27/20 History Potassium Chloride ER [K-Dur 10] 10 meq PO BID 03/09/20 03/27/20 History amLODIPine [Norvasc] 10 mg PO DAILY 03/09/20 03/27/20 History methocarbamoL [Robaxin] 500 mg PO BID 03/09/20 03/27/20 History rOPINIRole HCL [Requip] 2 mg PO BID 03/09/20 03/27/20 History sitaGLIPtin [Januvia] 100 mg PO DAILY 03/09/20 03/27/20 History Pantoprazole [Protonix] 40 mg PO BID #0 03/17/20 03/27/20 Rx Pregabalin [Lyrica] 200 mg PO BID #6 cap 03/17/20 03/27/20 Rx acetaZOLAMIDE [Diamox] 250 mg PO DAILY #30 tablet 03/17/20 03/27/20 Rx polyethylene glycoL 3350 [Miralax] 17 gm PO DAILY powd.pack 03/17/20 03/27/20 Rx INSULIN ASPART (NovoLOG) [NovoLOG See Protocol SQ ACHS 03/27/20 03/27/20 History (formulary)] Sennosides-Docusate Sodium 1 tab PO BID 03/27/20 03/27/20 History [Senokot-S] Allergies Allergy/AdvReac Type Severity Reaction Status Date / Time cisatracurium [From Nimbex] Allergy Rash/Hives Verified 03/27/20 16:08 Physical Exam Vitals: Vital Signs Temp Pulse Pulse Resp BP BP Pulse Ox 03/28/20 11:48 97.8 F 77 20 128/61 96 03/28/20 11:22 30 H 03/28/20 09:48 80 03/28/20 09:32 76 03/28/20 08:00 98 F 91 26 H 122/60 90 L 03/28/20 04:00 97.6 F 71 17 115/59 93 L 03/27/20 23:45 97.4 F L 69 29 H 133/65 92 L 03/27/20 22:06 76 17 127/62 97 03/27/20 22:04 98.1 F 75 16 113/79 96 03/27/20 20:13 74 16 124/64 96 03/27/20 20:08 78 14 121/90 95 03/27/20 20:00 97.9 F 75 24 141/62 95 03/27/20 19:30 74 16 03/27/20 18:00 68 22 147/96 92 L 03/27/20 17:00 65 22 127/96 92 L 03/27/20 16:00 68 22 133/76 92 L 03/27/20 15:00 72 22 139/73 92 L 03/27/20 14:59 71 22 132/91 100 10/01/20 14:22 24 03/27/20 14:21 85 03/27/20 14:16 80 03/27/20 13:56 98.3 F 80 25 H 99/48 68 L Intake and Output 03/27/20 03/28/20 03/28/20 22:59 06:59 14:59 Intake Total 300 240 Output Total 600 750 Balance 300 -600 -510 Intake: Intake, IV Titration 300 Amount Azithromycin 500 mg In 250 Sodium Chloride 0.9% 250 ml @ 250 mls/hr IVPB ONCE STA Rx#:[id number] cefTRIAXone 2 gm In 50 Sodium Chloride 0.9% 50 ml @ 100 mls/hr IVPB Q24H [facility] Rx#:[id number] Oral 240 Output: Urine 600 750 Other: Voiding Method Bedside Commode Bedside Commode Bedside Commode # Bowel Movements 1 Weight 113.398 kg 113.5 kg PHYSICAL EXAMINATION: GENERAL: 65-year-old female in no acute distress at the time of my ex amination HEENT: Head is atraumatic, normocephalic. Pupils equal, round. Sclera anicteric. Conjunctiva are clear. Mucous membranes of the mouth are moist. Neck is supple. There is no elevated jugular venous pressure. No carotid bruit is heard. HEART EXAMINATION: Heart S1 and S2 systolic murmur is heard in the aortic area CHEST EXAMINATION: Lungs reveal scattered wheezing with diminished air entry to the bases. ABDOMEN: Soft, nontender. Bowel sounds are heard. No organomegaly noted. EXTREMITIES:[ 2+ peripheral pulses with 2+ evidence of peripheral edema, chronic venous stasis. NEUROLOGIC patient is awake, alert and oriented 3 . Results 03/28/20 08:57 03/28/20 08:57 Cardiac Enzymes 03/27/20 03/27/20 03/28/20 Range/Units 14:16 14:16 08:57 AST 23 22 (14-36) U/L Troponin I <0.012 (0.000-0.034) ng/mL Coagulation 03/27/20 Range/Units 14:16 PT 9.5 (9.0-12.0) sec APTT 23.9 (22.0-30.0) sec CBC 03/27/20 03/28/20 Range/Units 14:16 08:57 WBC 18.2 H 13.4 H (3.8-10.6) k/uL RBC 3.60 L 3.29 L (3.80-5.40) m/uL Hgb 8.8 L 7.8 L (11.4-16.0) gm/dL Hct 31.2 L 29.8 L (34.0-46.0) % Plt Count 384 324 (150-450) k/uL Comprehensive Metabolic Panel 03/27/20 03/28/20 Range/Units 14:16 08:57 Sodium 139 136 L (137-145) mmol/L Potassium 4.2 4.7 (3.5-5.1) mmol/L Chloride 100 99 (98-107) mmol/L Carbon Dioxide 30 30 (22-30) mmol/L BUN 32 H 34 H (7-17) mg/dL Creatinine 1.06 H 1.09 H (0.52-1.04) mg/dL Glucose 243 H 416 H (74-99) mg/dL Calcium 8.9 8.9 (8.4-10.2) mg/dL AST 23 22 (14-36) U/L ALT 20 21 (4-34) U/L Alkaline Phosphatase 165 H 155 H (38-126) U/L Total Protein 7.1 6.7 (6.3-8.2) g/dL Albumin 4.1 3.8 (3.5-5.0) g/dL Current Medications Generic Name Dose Route Start Last Admin Trade Name Freq PRN Reason Stop Dose Admin Acetazolamide 250 mg 03/28/20 09:00 03/28/20 08:19 Acetazolamide 250 Mg Tab PO 250 mg DAILY [facility]ATH Administration Albuterol/Ipratropium 3 ml 03/27/20 22:00 03/28/20 09:32 Ipratropium-Albuterol 3 Ml Neb INHALATION 3 ml RT-QID [facility]ATH Administration Albuterol/Ipratropium 3 ml 03/27/20 16:54 03/27/20 19:30 Ipratropium-Albuterol 3 Ml Neb INHALATION 3 ml RT-Q4H PRN Administration shortness of breath Amlodipine Besylate 10 mg 03/28/20 09:00 03/28/20 08:19 Amlodipine 10 Mg Tab PO 10 mg DAILY [facility]ATH Administration Atorvastatin Calcium 40 mg 03/28/20 09:00 03/28/20 08:19 Atorvastatin 40 Mg Tab PO 40 mg DAILY [facility] Administration Azithromycin 500 mg 03/28/20 17:00 Azithromycin 500 Mg Tab PO 04/01/20 17:01 DAILY@1700 [facility] Budesonide/Formoterol Fumarate 2 puff 03/27/20 20:00 03/28/20 09:32 Symbicort 160-4.5 Mcg Inhaler INHALATION 2 puff RT-BID [facility] Administration Fluoxetine HCl 20 mg 03/28/20 09:00 03/28/20 08:20 Fluoxetine Hcl 20 Mg Cap PO 20 mg DAILY [facility] Administration Furosemide 40 mg 03/28/20 09:45 03/28/20 10:40 Furosemide 10 Mg/Ml 4 Ml Vial IV 40 mg Q12HR [facility] Administration Glimepiride 2 mg 03/28/20 09:00 03/28/20 08:20 Glimepiride 2 Mg Tab PO 2 mg DAILY [facility] Administration Ceftriaxone Sodium 2 gm/ 50 mls @ 100 mls/hr 03/28/20 17:00 Sodium Chloride IVPB Q24H [facility] Insulin Aspart 0 unit 03/27/20 21:00 03/28/20 06:27 Insulin Aspart (Novolog) 100 Unit/Ml Vial SQ 8 unit ACHS [facility] Administration Protocol Insulin Aspart 6 unit 03/28/20 07:30 03/28/20 06:27 Insulin Aspart (Novolog) 100 Unit/Ml Vial SQ 6 unit AC-TID [facility] Administration Insulin Detemir 50 unit 03/27/20 21:00 03/27/20 21:37 Insulin Detemir (Levemir) 100 Unit/Ml Syr SQ 50 unit HS [facility] Administration Isosorbide Mononitrate 30 mg 03/28/20 09:00 03/28/20 08:20 Isosorbide Mononitrate Er 30 Mg Tab.Er.24h PO 30 mg DAILY [facility] Administration Levothyroxine Sodium 125 mcg 03/28/20 06:30 03/28/20 06:26 Levothyroxine 125 Mcg Tab PO 125 mcg 0630 [facility] Administration Linagliptin 5 mg 03/28/20 09:00 03/28/20 08:21 Linagliptin 5 Mg Tablet PO 5 mg DAILY [facility] Administration Methocarbamol 500 mg 03/27/20 21:00 03/28/20 08:21 Methocarbamol 500 Mg Tab PO 500 mg BID [facility] Administration Methylprednisolone Sodium Succinate 60 mg 03/28/20 00:00 03/28/20 06:26 Methylprednisolone Sod Succi 125 Mg/2 Ml Vial IV 60 mg Q6HR [facility] Administration Metoprolol Tartrate 50 mg 03/27/20 21:00 03/28/20 08:21 Metoprolol Tartrate 50 Mg Tab PO 50 mg BID [facility] Administration Miscellaneous Information 1 each 03/27/20 16:54 Pneumonia Protocol Utilized 1 Each Misc PO ONCE PRN Per Protocol Montelukast Sodium 10 mg 03/27/20 21:00 03/27/20 21:36 Montelukast 10 Mg Tab PO 10 mg HS [facility] Administration Nitroglycerin 0.4 mg 03/27/20 19:09 Nitroglycerin Sl Tabs 0.4 Mg Tab SUBLINGUAL Q5M PRN Chest Pain Pantoprazole Sodium 40 mg 03/27/20 21:00 03/28/20 08:21 Pantoprazole 40 Mg Tablet PO 40 mg BID [facility] Administration Polyethylene Glycol 17 gm 03/28/20 09:00 03/28/20 08:21 Polyethylene Glycol 3350 17 Gm Powd.Pack PO Not Given DAILY [facility] Potassium Chloride 10 meq 03/27/20 21:00 03/28/20 08:21 Potassium Chloride Er 10 Meq Tab.Er.Prt PO 10 meq BID [facility] Administration Pregabalin 100 mg 03/27/20 21:00 03/28/20 08:22 Pregabalin 100 Mg Cap PO 100 mg BID [facility] Administration Ropinirole HCl 2 mg 03/27/20 21:00 03/28/20 08:22 Ropinirole Hcl 1 Mg Tab PO 2 mg BID [facility] Administration Senna/Docusate Sodium 1 each 03/27/20 21:00 03/28/20 08:22 Sennosides-Docusate Sodium 1 Each Tab PO Not Given BID [facility] Intake and Output 03/27/20 03/28/20 03/28/20 22:59 06:59 14:59 Intake Total 300 240 Output Total 600 750 Balance 300 -600 -510 Intake: Intake, IV Titration 300 Amount Azithromycin 500 mg In 250 Sodium Chloride 0.9% 250 ml @ 250 mls/hr IVPB ONCE STA Rx#:[id number] cefTRIAXone 2 gm In 50 Sodium Chloride 0.9% 50 ml @ 100 mls/hr IVPB Q24H [facility] Rx#:[id number] Oral 240 Output: Urine 600 750 Other: Voiding Method Bedside Commode Bedside Commode Bedside Commode # Bowel Movements 1 Weight 113.398 kg 113.5 kg 03/28/20 08:57 03/28/20 08:57 EKG Interpretations (text) EKG shows a normal sinus rhythm with nonspecific ST-T wave changes Assessment and Plan Plan: Assessment and plan #1 acute respiratory failure with combination of COPD exacerbation and acute diastolic heart failure on chronic, evidence of possible pneumonia. #2 recent GI bleed/anemia #3 moderate aortic stenosis and moderate mitral stenosis, with moderate to severe pulmonary hypertension #4 acute on chronic kidney disease #5 diabetes #6 hypertension #7 hypothyroidism #8 hyperlipidemia #9 sleep apnea #10 obesity Plan Patient just had an echo performed in February, we will not need to repeat one this admission. We will put the patient on 40 mg of IV Lasix twice a day for 24 hours. Continue to monitor intake and output along with daily weights and daily lytes BUN and creatinine. COVID testing is also in progress. DNP note has been reviewed, I agree with a documented findings and plan of care. Patient was seen and examined.
[2020-03-28 16:50] LABS: Glucose,Whole Blood 461 mg/dL (75-99)
[2020-03-28] MEDS: AZITHROMYCIN 500 MG TAB PO SCH (17:03)
[2020-03-28] MEDS ORDERED: INSULIN ASPART (NovoLOG) 100 UNIT/ML VIAL SQ SCH (17:30)
[2020-03-28] MEDS ORDERED: INSULIN REGULAR BOLUS (FROM DRIP BAG) IV ONE (18:00)
[2020-03-28 18:52] LABS: Glucose,Whole Blood 438 mg/dL (75-99)
[2020-03-28] MEDS: INSULIN REGULAR 100 UNIT in SODIUM CHLORIDE 0.9% 100 ML IV SCH ×2 (19:10→21:09)
[2020-03-28 19:25] LABS: Glucose,Whole Blood 465 mg/dL (75-99)
--- NOTE | 2020-03-28 19:50 | CONS ---
CONSULTATION PULMONARY/CRITICAL CARE CONSULTATION: DATE OF SERVICE: March 28, 2020 HISTORY OF PRESENT ILLNESS: This is a 65-year-old female well known to us. We saw her back in February. Actually my partner Dr. Gomes saw her at that time. She presents to the emergency department on March 27, 2020 at 1:54 pm. She admits to difficulty breathing for a couple days prior to admission. She denies any cough or phlegm production. There was no fever or chills. The shortness of breath was worse on exertion. She does have similar history as mentioned when she was admitted in February with shortness of breath, thought to be related to both COPD and CHF. She does admit to some leg swelling. No calf pain. No chest pain or chest discomfort. No nausea, vomiting, diarrhea, abdominal pain or any genitourinary complaints. The patient does have a history of acute on chronic hypoxemic respiratory failure, secondary to CHF, valvular heart disease, anemia, diabetes mellitus, sleep apnea syndrome, hypothyroidism, history of chronic tobacco use, and depression. CURRENT MEDICATIONS: Include albuterol inhaler, albuterol updrafts, Lipitor, Symbicort, Bumex, Prozac, Amaryl, insulin, Imdur, levothyroxine, metoprolol, Singulair, nitroglycerin sublingual, potassium chloride, amlodipine, Robaxin, Requip, Januvia, insulin and senna. In addition, she is taking Protonix, Lyrica, Diamox, and MiraLAX in the past. ALLERGIES: APPARENTLY NIMBEX. PAST MEDICAL HISTORY: As mentioned above. Includes, among other things, depression, previous history of tobacco use, hypothyroidism, sleep apnea syndrome, anemia, chronic congestive heart failure, valvular heart disease, and COPD as well as chronic hypoxemic respiratory failure. The patient also admits to neuropathy. She has also had a previous myocardial infarction apparently in 2018. SURGICAL HISTORY: Includes among other things, a , cholecystectomy, heart catheterization, hysterectomy, and a number of orthopedic procedures. She has also had cataract surgery with lens implantation. Her most recent heart catheterization was in December of 2019. SOCIAL HISTORY: Positive for previous heavy tobacco use. Does not smoke currently. Denies any alcohol or illicit drug use. FAMILY HISTORY: Noncontributory. Both mother and father apparently healthy. REVIEW OF SYSTEMS: CONSTITUTIONAL negative. NEUROLOGIC negative. HEENT: Negative. CARDIOVASCULAR negative. PULMONARY: Shortness of breath. GI negative. negative. RHEUMATOLOGIC negative. IMMUNOLOGIC negative. ENDOCRINOLOGIC negative. DERMATOLOGIC negative. PHYSICAL EXAMINATION: VITAL SIGNS: Current vital signs are reviewed. Temperature is 97.8. Heart rate 84, respiratory rate 20. Blood pressure 128/61, mean 83. Saturations 96% on 4 L. She was on BiPAP last night. GENERAL: Appears in no acute distress. Sitting at the bedside. HEENT: Examination is grossly unremarkable. She is wearing nasal O2. NECK: Supple. Full range of motion. No adenopathy. Neck veins are flat. CARDIOVASCULAR: Examination reveals regular rhythm and rate. Heart sounds are distant. Heart rate 77. S1, S2 normal. A soft systolic murmur is noted. LUNGS: Reveal bibasilar crackles. No wheezes or rhonchi. Breath sounds are equal bilaterally. ABDOMEN: Obese. Bowel sounds are heard. EXTREMITIES: Reveal some mild edema. No cyanosis or clubbing. SKIN: Without rash. NEUROLOGIC: Examination is nonfocal. LABS: Reviewed. White count 13.4, hemoglobin 7.8, hematocrit 39.8, platelet count 328,000, sodium 136, potassium 4.7, chloride 99, CO2 30, anion gap is 7, BUN and creatinine were 34 and 1.09. Troponins were less than 0.012. Liver enzymes are normal. N terminal proBNP was 4100. Albumin 3.8. Microbiology is pending or negative. Initial chest x-ray shows some patchy bilateral infiltrates. Followup x-ray shows some perihilar and basilar infiltrates which might be consistent with underlying pneumonia. ASSESSMENT: 1. Shortness of breath, with acute on chronic hypoxemic respiratory failure, likely a combination of both CHF and COPD exacerbations. 2. Valvular heart disease. 3. Acute on chronic anemia, secondary to small bowel bleeding. 4. Diabetes mellitus. 5. Diabetic neuropathy. 6. Sleep apnea syndrome, maintained on CPAP. 7. Hypothyroidism. 8. Previous history of heavy tobacco use. 9. Depression. 10.Obesity. 11.Multiple other medical problems and comorbidities. PLAN: Currently, the patient seems to be doing relatively well. The patient's medications are reviewed. She is on Symbicort, as well as updrafts with albuterol and Atrovent. In addition, the patient is getting Zithromax and Rocephin. Finally, the patient is on Solu-Medrol 60 mg q.6h. We will continue to follow. Prognosis is guarded. The patient is also getting IV Lasix 40 mg q.12. Additional recommendations and suggestions are forthcoming. Prognosis is guarded. MMODL / IJN: [id number] / MTDD
[2020-03-28 19:59] LABS: Glucose,Whole Blood 416 mg/dL (75-99)
[2020-03-28 20:39] LABS: Glucose,Whole Blood 374 mg/dL (75-99)
[2020-03-28] MEDS ORDERED: INSULIN DETEMIR (LEVEMIR) 100 UNIT/ML SYR SQ SCH (21:00)
[2020-03-28 21:06] LABS: Glucose,Whole Blood 368 mg/dL (75-99)
[2020-03-28] MEDS: MONTELUKAST 10 MG TAB PO SCH (21:07)
[2020-03-28 21:39] LABS: Glucose,Whole Blood 327 mg/dL (75-99)
[2020-03-28 22:07] LABS: Glucose,Whole Blood 333 mg/dL (75-99)
[2020-03-28 22:35] LABS: Glucose,Whole Blood 282 mg/dL (75-99)
[2020-03-28 23:10] LABS: Glucose,Whole Blood 253 mg/dL (75-99)
[2020-03-28 23:41] LABS: Glucose,Whole Blood 226 mg/dL (75-99)
[2020-03-29 01:40] LABS: Glucose,Whole Blood 153 mg/dL (75-99)
[2020-03-29 03:38] LABS: Glucose,Whole Blood 176 mg/dL (75-99)
[2020-03-29 05:33] LABS: Glucose,Whole Blood 181 mg/dL (75-99)
[2020-03-29] MEDS: methylPREDNISolone SOD SUCCI 125 MG/2 ML VIAL IV SCH ×3 (05:52→17:18)
[2020-03-29] MEDS: LEVOTHYROXINE 125 MCG TAB PO SCH (05:53)
[2020-03-29 06:10] LABS: Hemoglobin A1C 5.2 % (4.0-6.0)
[2020-03-29 07:09] LABS: Glucose,Whole Blood 163 mg/dL (75-99)
[2020-03-29] MEDS ORDERED: INSULIN ASPART (NovoLOG) 100 UNIT/ML VIAL SQ SCH (07:30)
[2020-03-29] MEDS: FUROSEMIDE 10 MG/ML 4 ML VIAL IV SCH ×2 (08:22→20:57)
[2020-03-29] MEDS: PANTOPRAZOLE 40 MG TABLET PO SCH ×2 (08:22→20:57)
[2020-03-29] MEDS: ISOSORBIDE MONONITRATE ER 30 MG TAB.ER.24H PO SCH (08:22)
[2020-03-29] MEDS: SYMBICORT 160-4.5 MCG INHALER INHALATION SCH ×2 (08:22→20:27)
[2020-03-29] MEDS: methocarbamoL 500 MG TAB PO SCH ×2 (08:22→20:56)
[2020-03-29] MEDS: IPRATROPIUM-ALBUTEROL 3 ML NEB INHALATION SCH ×4 (08:22→20:27)
[2020-03-29] MEDS: ATORVASTATIN 40 MG TAB PO SCH (08:22)
[2020-03-29] MEDS: acetaZOLAMIDE 250 MG TAB PO SCH (08:23)
[2020-03-29] MEDS: amLODIPine 10 MG TAB PO SCH (08:23)
[2020-03-29] MEDS: METOPROLOL TARTRATE 50 MG TAB PO SCH ×2 (08:23→20:56)
[2020-03-29] MEDS: POTASSIUM CHLORIDE ER 10 MEQ TAB.ER.PRT PO SCH ×2 (08:23→20:56)
[2020-03-29] MEDS: polyethylene glycoL 3350 17 GM POWD.PACK PO SCH (08:23)
[2020-03-29] MEDS: PREGABALIN 100 MG CAP PO SCH ×2 (08:23→20:57)
[2020-03-29] MEDS: SENNOSIDES-DOCUSATE SODIUM 1 EACH TAB PO SCH ×2 (08:24→20:58)
[2020-03-29] MEDS: FLUoxetine HCL 20 MG CAP PO SCH (08:24)
[2020-03-29 09:11] LABS: Glucose,Whole Blood 311 mg/dL (75-99)
[2020-03-29 09:26] LABS: Albumin 3.7 g/dL (3.5-5.0); Calcium 9.1 mg/dL (8.4-10.2); Potassium 4.6 mmol/L (3.5-5.1); Total Bilirubin 0.4 mg/dL (0.2-1.3); Total Protein 6.5 g/dL (6.3-8.2)
[2020-03-29 09:57] LABS: Anisocytosis Slight; HCT 28.5 % (34.0-46.0); HGB 7.8 gm/dL (11.4-16.0); Hypochromasia Marked; MCH 23.8 pg (25.0-35.0); MCHC 27.2 g/dL (31.0-37.0); MCV 87.4 fL (80.0-100.0); Mean Platelet Volume 7.5; Platelet Count 327 k/uL (150-450); Poikilocytosis Moderate; RBC 3.27 m/uL (3.80-5.40); RDW 17.9 % (11.5-15.5)
[2020-03-29] MEDS ORDERED: INSULIN DETEMIR (LEVEMIR) 100 UNIT/ML SYR SQ ONE (10:05)
--- NOTE | 2020-03-29 10:20 | P.PN ---
Subjective Progress Note Date: 03/29/20 65-year-old female one of my office patient who was in the hospital 10 days ago for acute gastrointestinal bleed and severe anemia was known to have advanced COPD on home BiPAP and oxygen history of diastolic congestive heart failure and valvular heart disease along with pulmonary hypertension who called the office with severe hypoxia was instructed to go to the emergency department her family drove her to the emergency department at [facility] where was seen and evaluated found to be in respiratory distress was started on high flow O2 and then BiPAP patient also found to be in fluid overload was giving IV diuretics start updraft treatment steroid had questionable of infiltrate in the bases mostly on the right side with question of aspiration pneumonia as well. Her troponin was low white blood cell was 18,000 hemoglobin remained stable at 8.8 from the time she left the hospital a week ago. Patient was hospitalized with acute respiratory failure secondary to COPD exacerbation, CHF exacerbation and bilateral pneumonia. 03/29: Patient is found sitting at the site of the bed. She is currently on an insulin drip with blood sugars running from 150-300. We will add Levemir 50 units at bedtime and 30 units in the morning increase NovoLog 20 units before meals and at bedtime and with sliding scale coverage. We will continue with the insulin drip until at least 2:00. Discussed with patient the concerns related to pulmonary hypertension and aortic stenosis. This discussion was also had wi th her and daughter yesterday evening. Patient states that she is able to breathe better. And she is feeling improvement. Patient has been afebrile. Heart rate 76, respirations 20, blood pressure 116/56, pulse ox 94% on 4 L nasal cannula. Review of Systems: CONSTITUTIONAL: Well-developed no acute respiratory distress. EYES: No icterus sclerae, no conjunctivitis. EARS, NOSE, MOUTH, THROAT, and FACE: No sore throat, lymphadenopathy, carotid bruits or deformity. RESPIRATORY: Positive dyspnea and shortness of breath-improved positive cough positive wheezes. CARDIOVASCULAR: Positive PND orthopnea palpitation with no chest pain. GASTROINTESTINAL: No Abd pain, Nausea or vomiting, no Diarrhea or constipation, No GI Bleed, no distention or masses. GENITOURINARY: Negative for Hematuria or UTI, no kidney stones. INTEGUMENT/BREAST: Negative for any muscular injury with mild osteoarthritis. More fluid retention.. HEMATOLOGIC/LYMPHATIC: Negative for bleed or purpura. MUSCULOSKELTAL: Negative for Myalgia or arthralgia. NEURLOGICAL: No LOC, Sz or syncope, blurred vision dizziness or abnormality.. BEHAVIORAL/PSYCH: Negative. ENDOCRINE: Negative. Physical Exam: General Appearance: Alert, cooperative, no distress, appears stated age. Neck HEENT: Supple, no lymphadenopathy, no thyroid enlargement, no carotid b ruits. Lungs: Decreased breath some bilateral fine rhonchi positive crackles in the base especially the right side positive mild inspiratory expiratory wheezes more midway and higher. Chest Wall: Decrease expansion with deep inspiration no tenderness and no deformity was found on exam, no costochondral pain or discomfort. Heart: Regular rate and rhythm, S1, S2 positive S3 positive midsystolic murmur radiating toward the right second intercostal space. Back: Symmetric, no curvature, ROM normal, no CVA tenderness. Abdomen: Soft, non-tender, bowel sounds active all four quadrants, no masses, no organomegaly. Extremities: 1+ edema decreased pulse bilaterally with mild arthritis in both knees. Pulses: 2+ and symmetric. Skin: Skin color, texture, tugor normal, no rashes or lesions. Neurologic: Alert oriented x3 cranial nerves II through XII intact, no motor deficit, no abnormal balance or gait. Assessment/Plan: 1 acute respiratory failure: Combination of COPD exacerbation and CHF exacerbation along with pneumonia and pulmonary hypertension will continue O2 updraft treatment diuretics steroid consult pulmonary. 2 COPD exacerbation: Patient will be on Solu-Medrol, DuoNeb, Pulmicort consult pulmonary continue Diamox as well. 3 CHF exacerbation: Mostly diastolic congestive heart failure acute on chronic and with the severity of the pulmonary hypertension and valvular heart disease will continue patient on furosemide 40 mg IV twice a day we'll consult cardiology this point. 4 bilateral pneumonia with possible gram-negative possible aspiration along with the potential of hospital-acquired pneumonia been in the hospital a few times last few weeks patient was giving 1 dose of Rocephin and azithromycin with switch patient to gram-negative coverage with Zosyn and possible Levaquin continue to watch for any sputum culture blood culture. 5 moderate to severe aortic stenosis with valvular heart disease: Her echo from last time was very positive patient is not in any condition currently for intervention continue medical management for now. 6 moderate to severe pulmonary hypertension: Eventually patient might need right-sided heart catheter in the meanwhile if she is able to tolerate calcium channel ira and titrate diuretics. 7 acute with recurrent gastrointestinal bleed: Last time was 2 weeks ago, since her last upper gastroscopy with intervention has not had any further bleeding hemoglobin is stable and holding well at this point. 8 acute kidney injury: With stage II chronic kidney disease continue to watch her kidney function and daily basis continue to watch her urine output. 9 type 2 diabetes on insulin: Currently on insulin drip, will start Levemir 30 units in the a.m. and 50 units daily at bedtime. NovoLog 20 units before meals and at bedtime. Continue with sliding scale. Titrate insulin drip for the next few hours for coverage. 10 chronic pain management: Still on mild dose of hydrocodone along with Lyrica for chronic pain syndrome and chronic lower back pain. 11 hypertension: Remain on amlodipine and metoprolol. 12 hypothyroidism: Continue patient on levothyroxine 125 g daily. 13 restless leg syndrome: Remain on Requip 2 mg twice a day. 14 GI prophylaxis: Patient will be on pantoprazole. 16 DVT prophylaxis: Early mobilization and knee-high FILEMON hose. CODE STATUS: Full code. Admit patient to the inpatient service for more than 2 night stay. Impression and plan of care have been directed as dictated by the signing physician. Brandy Villatoro nurse practitioner acting as scribe for signing physician. Objective - Vital Signs Vital signs: Vital Signs Temp 98.1 F 03/29/20 08:15 Pulse 76 03/29/20 08:35 Resp 20 03/29/20 08:15 BP 116/56 03/29/20 08:15 Pulse Ox 94 L 03/29/20 08:15 Intake & Output 03/28/20 03/29/20 03/29/20 18:59 06:59 18:59 Intake Total 600 126.200 15.352 Output Total 750 1800 Balance -150 -1673.800 15.352 Weight 114.5 kg Intake: Intake, IV Titration 126.200 15.352 Amount Insulin Regular 100 unit 126.200 15.352 In Sodium Chloride 0.9% 100 ml @ Titrate IV .Q0M SARATH Rx#:[id number] Oral 600 Output: Urine 750 1800 Other: Voiding Method Bedside Commode Bedside Commode # Voids 1 # Bowel Movements 1 - Labs CBC & Chem 7: 03/28/20 08:57 03/29/20 08:38 Labs: Abnormal Lab Results - Last 24 Hours (Table) 03/28/20 03/28/20 03/28/20 Range/Units 08:57 08:57 11:55 WBC 13.4 H (3.8-10.6) k/uL RBC 3.29 L (3.80-5.40) m/uL Hgb 7.8 L (11.4-16.0) gm/dL Hct 29.8 L (34.0-46.0) % MCH 23.7 L (25.0-35.0) pg MCHC 26.3 L (31.0-37.0) g/dL RDW 17.6 H (11.5-15.5) % Neutrophils # 12.3 H (1.3-7.7) k/uL Lymphocytes # 0.8 L (1.0-4.8) k/uL BUN (7-17) mg/dL Creatinine (0.52-1.04) mg/dL Glucose (74-99) mg/dL POC Glucose (mg/dL) 433 H (75-99) mg/dL Procalcitonin 0.24 H (0.02-0.09) ng/mL 03/28/20 03/28/20 03/28/20 Range/Units 16:48 18:40 19:04 WBC (3.8-10.6) k/uL RBC (3.80-5.40) m/uL Hgb (11.4-16.0) gm/dL Hct (34.0-46.0) % MCH (25.0-35.0) pg MCHC (31.0-37.0) g/dL RDW (11.5-15.5) % Neutrophils # (1.3-7.7) k/uL Lymphocytes # (1.0-4.8) k/uL BUN (7-17) mg/dL Creatinine (0.52-1.04) mg/dL Glucose (74-99) mg/dL POC Glucose (mg/dL) 461 H 438 H 465 H (75-99) mg/dL Procalcitonin (0.02-0.09) ng/mL 10/02/20 10/02/20 10/02/20 Range/Units 19:47 20:19 20:54 WBC (3.8-10.6) k/uL RBC (3.80-5.40) m/uL Hgb (11.4-16.0) gm/dL Hct (34.0-46.0) % MCH (25.0-35.0) pg MCHC (31.0-37.0) g/dL RDW (11.5-15.5) % Neutrophils # (1.3-7.7) k/uL Lymphocytes # (1.0-4.8) k/uL BUN (7-17) mg/dL Creatinine (0.52-1.04) mg/dL Glucose (74-99) mg/dL POC Glucose (mg/dL) 416 H 374 H 368 H (75-99) mg/dL Procalcitonin (0.02-0.09) ng/mL 03/28/20 03/28/20 03/28/20 Range/Units 21:27 22:05 22:33 WBC (3.8-10.6) k/uL RBC (3.80-5.40) m/uL Hgb (11.4-16.0) gm/dL Hct (34.0-46.0) % MCH (25.0-35.0) pg MCHC (31.0-37.0) g/dL RDW (11.5-15.5) % Neutrophils # (1.3-7.7) k/uL Lymphocytes # (1.0-4.8) k/uL BUN (7-17) mg/dL Creatinine (0.52-1.04) mg/dL Glucose (74-99) mg/dL POC Glucose (mg/dL) 327 H 333 H 282 H (75-99) mg/dL Procalcitonin (0.02-0.09) ng/mL 03/28/20 03/28/20 03/29/20 Range/Units 23:08 23:38 01:39 WBC (3.8-10.6) k/uL RBC (3.80-5.40) m/uL Hgb (11.4-16.0) gm/dL Hct (34.0-46.0) % MCH (25.0-35.0) pg MCHC (31.0-37.0) g/dL RDW (11.5-15.5) % Neutrophils # (1.3-7.7) k/uL Lymphocytes # (1.0-4.8) k/uL BUN (7-17) mg/dL Creatinine (0.52-1.04) mg/dL Glucose (74-99) mg/dL POC Glucose (mg/dL) 253 H 226 H 153 H (75-99) mg/dL Procalcitonin (0.02-0.09) ng/mL 03/29/20 03/29/20 03/29/20 Range/Units 03:36 05:20 07:07 WBC (3.8-10.6) k/uL RBC (3.80-5.40) m/uL Hgb (11.4-16.0) gm/dL Hct (34.0-46.0) % MCH (25.0-35.0) pg MCHC (31.0-37.0) g/dL RDW (11.5-15.5) % Neutrophils # (1.3-7.7) k/uL Lymphocytes # (1.0-4.8) k/uL BUN (7-17) mg/dL Creatinine (0.52-1.04) mg/dL Glucose (74-99) mg/dL POC Glucose (mg/dL) 176 H 181 H 163 H (75-99) mg/dL Procalcitonin (0.02-0.09) ng/mL 03/29/20 03/29/20 Range/Units 08:38 09:01 WBC (3.8-10.6) k/uL RBC (3.80-5.40) m/uL Hgb (11.4-16.0) gm/dL Hct (34.0-46.0) % MCH (25.0-35.0) pg MCHC (31.0-37.0) g/dL RDW (11.5-15.5) % Neutrophils # (1.3-7.7) k/uL Lymphocytes # (1.0-4.8) k/uL BUN 42 H (7-17) mg/dL Creatinine 1.13 H (0.52-1.04) mg/dL Glucose 281 H (74-99) mg/dL POC Glucose (mg/dL) 311 H (75-99) mg/dL Procalcitonin (0.02-0.09) ng/mL Microbiology - Last 24 Hours (Table) 03/27/20 15:53 Blood Culture - Preliminary Blood No Growth after 24 hours
[2020-03-29 10:39] LABS: Glucose,Whole Blood 315 mg/dL (75-99)
[2020-03-29 11:09] LABS: Glucose,Whole Blood 268 mg/dL (75-99)
[2020-03-29] MEDS: INSULIN REGULAR 100 UNIT in SODIUM CHLORIDE 0.9% 100 ML IV SCH (11:14)
[2020-03-29 12:09] LABS: Lymphocytes # (M) 0.32 k/uL (1.0-4.8); Monocytes # (M) 0.48 k/uL (0-1.0); Neutrophils % (M) 95 %; Nucleated Red Blood Cells 0 /100 WBC (0-0); Stomatocytes Present; Total Cells Counted 100
[2020-03-29 12:26] LABS: Glucose,Whole Blood 219 mg/dL (75-99)
[2020-03-29] MEDS: INSULIN ASPART (NovoLOG) 100 UNIT/ML VIAL SQ SCH ×4 (12:50→20:57)
[2020-03-29 13:43] LABS: Glucose,Whole Blood 210 mg/dL (75-99)
[2020-03-29 15:01] LABS: Glucose,Whole Blood 202 mg/dL (75-99)
--- NOTE | 2020-03-29 15:32 | PN ---
PROGRESS NOTE Mrs. Null is a 65-year-old female who presented with symptoms of dyspnea and possible exacerbation of chronic obstructive pulmonary disease and mild diastolic dysfunction and heart failure. She is feeling better today. She denies any chest pain. She denies any dizziness or palpitation. She denies any nausea. She has a history of moderate aortic stenosis and moderate to severe pulmonary hypertension. She continues to have peripheral edema. She denies any nausea or vomiting. She continues to be at this time on Diamox 250 mg daily, amlodipine 10 mg daily, Lipitor 40 mg daily, Lasix 40 mg IV q.12 hours, insulin, isosorbide mononitrate 30 mg daily, methylprednisolone, metoprolol tartrate 50 mg twice a day, Protonix, Lyrica. PHYSICAL EXAMINATION: Blood pressure 102/50 with a heart rate in the 70s. LUNGS: With a few crackles. HEART: Regular rate and rhythm. S1, S2. No S3 with systolic ejection murmur heard at the base, 2/6 no diastolic murmur. No rub. ABDOMEN: Soft, obese, nontender. EXTREMITIES: +1 edema. LAB DATA: Revealed a hemoglobin of 7.8 which is stable. Her BUN and creatinine are 42 and 1.13. Her potassium is 4.6. IMPRESSION: 1. Symptoms of progressive dyspnea with evidence of congestive heart failure with diastolic dysfunction. 2. Probable exacerbation of chronic obstructive pulmonary disease. 3. History of aortic stenosis and pulmonary hypertension. 4. Chronic anemia. 5. Diabetic neuropathy. 6. Obesity. RECOMMENDATION: We will continue present therapy. I will continue on the IV diuretic for 24 hours. Follow her renal function. If she remains stable, will switch her IV diuretics tomorrow. Continue to increase her level of activity and then continue to follow her valvular disease closely to see if she is a candidate for any intervention down the road. MMODL / IJN: [id number] /
--- NOTE | 2020-03-29 16:07 | PN ---
PROGRESS NOTE PULMONARY/CRITICAL CARE PROGRESS NOTE: DATE OF SERVICE: 03/29/2020 This is a 65-year-old female well known to our service. She sees my partner, Dr. Gomes. She presented to the emergency department on March 27, 2020. She came in with complaints of difficulty breathing for a couple days prior to admission. She denied any cough or phlegm production. Also denies any fever or chills. The shortness of breath is worse on exertion. Previously, she has had prior admissions with similar symptoms related to both COPD and CHF exacerbations. The patient does carry with her a history of acute on chronic hypoxemic respiratory failure, CHF, valvular heart disease, anemia, diabetes mellitus, sleep apnea syndrome, hypothyroidism, COPD secondary to chronic tobacco dependence, among other things. Today she is feeling better. She is resting comfortably. She states she does notice a significant improvement. In the past, she was seeing the gold layer over at [facility]. PHYSICAL EXAMINATION: VITAL SIGNS: Current vital signs are reviewed. Temperature is 97.7, heart rate 70, respiratory rate 22, blood pressure 102/51, mean 68 and 4 L saturation 97%. GENERAL: Appears in no acute distress. HEENT: Examination is grossly unremarkable. NECK: Supple. Full range of motion. No adenopathy. Neck veins are flat. CARDIOVASCULAR: Examination reveals regular rhythm and rate. S1, S2 normal. Heart rate 70. Heart sounds are distant. No murmur. LUNGS: Reveal a few scattered rhonchi. There are some mild bibasilar crackles. No wheezes. Breath sounds equal but diminished. ABDOMEN: Obese. Bowel sounds are heard. EXTREMITIES: Intact. There is mild edema. No cyanosis or clubbing. SKIN: Without rash. NEUROLOGIC: Examination is nonfocal. LABS: Reviewed. Currently, white count 16, hemoglobin 7.8, hematocrit 28.5, platelet count 327,000. Sodium, potassium, chloride, CO2 all normal. Anion gap 8. BUN and creatinine were 42 and 1.13. The rest of the labs look okay. A procalcitonin level is 0.4. Coronavirus PCR is negative. Microbiologic studies are negative thus far. IMAGING: Chest x-ray dated March 28 shows some perihilar and basilar infiltrates. It could relate to underlying pneumonia or fluid overload. CURRENT MEDICATIONS: Reviewed. From the pulmonary standpoint, the patient is on Zithromax, Symbicort, Rocephin, Lasix, DuoNeb, Solu-Medrol, and Singulair. ASSESSMENT: 1. Shortness of breath, with acute on chronic hypoxemic respiratory failure, likely combination of congestive heart failure, and chronic obstructive pulmonary disease, and possible underlying pneumonia. 2. Valvular heart disease. 3. Acute on chronic anemia secondary to small bowel bleeding. 4. Diabetes mellitus. 5. Diabetic neuropathy. 6. Sleep apnea syndrome, maintained on home CPAP. 7. Hypothyroidism. 8. Prior history of heavy tobacco use. 9. Depression. 10.Obesity. 11.Multiple other medical problems and comorbidities. PLAN: The patient is being treated for her current medical conditions including Symbicort, updrafts, Zithromax, Rocephin, Solu-Medrol, and diuretics. We will continue to follow. Prognosis is guarded. No additional recommendations are made. MMMARGARITAL / SHANKARN: [id number] /
[2020-03-29 17:00] LABS: Glucose,Whole Blood 292 mg/dL (75-99)
[2020-03-29] MEDS: AZITHROMYCIN 500 MG TAB PO SCH (17:18)
[2020-03-29 20:46] LABS: Glucose,Whole Blood 503 mg/dL (75-99)
[2020-03-29 20:49] LABS: Glucose,Whole Blood 467 mg/dL (75-99)
[2020-03-29] MEDS: MONTELUKAST 10 MG TAB PO SCH (20:57)
[2020-03-29] MEDS: INSULIN DETEMIR (LEVEMIR) 100 UNIT/ML SYR SQ SCH (20:57)
[2020-03-30] MEDS: methylPREDNISolone SOD SUCCI 125 MG/2 ML VIAL IV SCH ×2 (05:15→07:13)
[2020-03-30] MEDS: LEVOTHYROXINE 125 MCG TAB PO SCH (05:17)
[2020-03-30 07:00] LABS: Glucose,Whole Blood 314 mg/dL (75-99)
[2020-03-30] MEDS: INSULIN DETEMIR (LEVEMIR) 100 UNIT/ML SYR SQ SCH ×2 (07:12→21:12)
[2020-03-30] MEDS: INSULIN ASPART (NovoLOG) 100 UNIT/ML VIAL SQ SCH ×7 (07:12→21:12)
[2020-03-30 08:05] LABS: Calcium 9.3 mg/dL (8.4-10.2); Potassium 4.4 mmol/L (3.5-5.1); Total Bilirubin 0.4 mg/dL (0.2-1.3); Total Protein 6.9 g/dL (6.3-8.2)
[2020-03-30 08:32] LABS: Anisocytosis Slight; HCT 28.8 % (34.0-46.0); HGB 7.9 gm/dL (11.4-16.0); Hypochromasia Marked; MCH 23.7 pg (25.0-35.0); MCHC 27.5 g/dL (31.0-37.0); MCV 86.3 fL (80.0-100.0); Mean Platelet Volume 8.8; Platelet Count 324 k/uL (150-450); Poikilocytosis Moderate; RBC 3.34 m/uL (3.80-5.40); RDW 18.6 % (11.5-15.5)
[2020-03-30] MEDS: ISOSORBIDE MONONITRATE ER 30 MG TAB.ER.24H PO SCH (08:35)
[2020-03-30] MEDS: FLUoxetine HCL 20 MG CAP PO SCH (08:35)
[2020-03-30] MEDS: ATORVASTATIN 40 MG TAB PO SCH (08:35)
[2020-03-30] MEDS: METOPROLOL TARTRATE 50 MG TAB PO SCH ×2 (08:35→21:11)
[2020-03-30] MEDS: PREGABALIN 100 MG CAP PO SCH ×2 (08:35→21:12)
[2020-03-30] MEDS: amLODIPine 10 MG TAB PO SCH (08:35)
[2020-03-30] MEDS: FUROSEMIDE 10 MG/ML 4 ML VIAL IV SCH (08:35)
[2020-03-30] MEDS: methocarbamoL 500 MG TAB PO SCH ×2 (08:35→21:12)
[2020-03-30] MEDS: PANTOPRAZOLE 40 MG TABLET PO SCH ×2 (08:35→21:12)
[2020-03-30] MEDS: acetaZOLAMIDE 250 MG TAB PO SCH (08:35)
[2020-03-30] MEDS: SENNOSIDES-DOCUSATE SODIUM 1 EACH TAB PO SCH (08:36)
[2020-03-30] MEDS: POTASSIUM CHLORIDE ER 10 MEQ TAB.ER.PRT PO SCH ×2 (08:36→21:11)
[2020-03-30] MEDS: polyethylene glycoL 3350 17 GM POWD.PACK PO SCH (08:36)
[2020-03-30 08:52] LABS: Lymphocytes # (M) 0.65 k/uL (1.0-4.8); Myelocytes # (M) 0.13 k/uL (0); Myelocytes % 1 %; Neutrophils % (M) 84 %; Nucleated Red Blood Cells 1 /100 WBC (0-0); Total Cells Counted 200
[2020-03-30 08:53] LABS: Monocytes # (M) 1.42 k/uL (0-1.0); Neutrophils # (M) 10.84 k/uL (1.3-7.7); Stomatocytes Present; WBC 12.9 k/uL (3.8-10.6)
[2020-03-30] MEDS: IPRATROPIUM-ALBUTEROL 3 ML NEB INHALATION SCH ×4 (09:30→19:09)
[2020-03-30] MEDS: SYMBICORT 160-4.5 MCG INHALER INHALATION SCH ×2 (09:30→19:09)
--- NOTE | 2020-03-30 10:27 | P.PN ---
Subjective Progress Note Date: 03/30/20 65-year-old female one of my office patient who was in the hospital 10 days ago for acute gastrointestinal bleed and severe anemia was known to have advanced COPD on home BiPAP and oxygen history of diastolic congestive heart failure and valvular heart disease along with pulmonary hypertension who called the office with severe hypoxia was instructed to go to the emergency department her family drove her to the emergency department at [facility] where was seen and evaluated found to be in respiratory distress was started on high flow O2 and then BiPAP patient also found to be in fluid overload was giving IV diuretics start updraft treatment steroid had questionable of infiltrate in the bases mostly on the right side with question of aspiration pneumonia as well. Her troponin was low white blood cell was 18,000 hemoglobin remained stable at 8.8 from the time she left the hospital a week ago. Patient was hospitalized with acute respiratory failure secondary to COPD exacerbation, CHF exacerbation and bilateral pneumonia. 03/29: Patient is found sitting at the site of the bed. She is currently on an insulin drip with blood sugars running from 150-300. We will add Levemir 50 units at bedtime and 30 units in the morning increase NovoLog 20 units before meals and at bedtime and with sliding scale coverage. We will continue with the insulin drip until at least 2:00. Discussed with patient the concerns related to pulmonary hypertension and aortic stenosis. This discussion was also had wi th her and daughter yesterday evening. Patient states that she is able to breathe better. And she is feeling improvement. Patient has been afebrile. Heart rate 76, respirations 20, blood pressure 116/56, pulse ox 94% on 4 L nasal cannula. 03/30: Patient is found sitting up in the chair in no acute distress. She continues to have elevated blood sugars. Last night her blood sugar was in the 500s. We will continue with the Levemir 50 units and 30 units in the morning. Decrease Solu-Medrol to 40 mg every 8 hours. Patient will be transitioned to oral prednisone tomorrow for possible discharge. Patient is hopeful to go to a subacute rehab facility. She was seen by physical therapy on Tuesday. Patient will require covert test prior to transfer. Patient states that she is feeling better able to ambulate in the room with mild distress. Patient continues to be on 3 L of oxygen via nasal cannula pulse ox 97%, patient has been afebrile pulse rate 74, respirations 20 blood pressure 143/59. Review of Systems: CONSTITUTIONAL: Well-developed no acute respiratory distress. EYES: No icterus sclerae, no conjunctivitis. EARS, NOSE, MOUTH, THROAT, and FACE: No sore throat, lymphadenopathy, carotid bruits or deformity. RESPIRATORY: Positive dyspnea and shortness of breath-improved positive cough positive wheezes. CARDIOVASCULAR: Positive PND orthopnea palpitation with no chest pain. GASTROINTESTINAL: No Abd pain, Nausea or vomiting, no Diarrhea or constipation, No GI Bleed, no distention or masses. GENITOURINARY: Negative for Hematuria or UTI, no kidney stones. INTEGUMENT/BREAST: Negative for any muscular injury with mild osteoarthritis. More fluid retention.. HEMATOLOGIC/LYMPHATIC: Negative for bleed or purpura. MUSCULOSKELTAL: Negative for Myalgia or arthralgia. NEURLOGICAL: No LOC, Sz or syncope, blurred vision dizziness or abnormality.. BEHAVIORAL/PSYCH: Negative. ENDOCRINE: Negative. Physical Exam: General Appearance: Alert, cooperative, no distress, appears stated age. Neck HEENT: Supple, no lymphadenopathy, no thyroid enlargement, no carotid bruits. Lungs: Decreased breath some bilateral fine rhonchi positive crackles in the base especially the right side positive mild inspiratory expiratory wheezes more midway and higher. Chest Wall: Decrease expansion with deep inspiration no tenderness and no deformity was found on exam, no costochondral pain or discomfort. Heart: Regular rate and rhythm, S1, S2 positive S3 positive midsystolic murmur radiating toward the right second intercostal space. Back: Symmetric, no curvature, ROM normal, no CVA tenderness. Abdomen: Soft, non-tender, bowel sounds active all four quadrants, no masses, no organomegaly. Extremities: 1+ edema decreased pulse bilaterally with mild arthritis in both knees. Pulses: 2+ and symmetric. Skin: Skin color, texture, tugor normal, no rashes or lesions. Neurologic: Alert oriented x3 cranial nerves II through XII intact, no motor deficit, no abnormal balance or gait. Assessment/Plan: 1 acute respiratory failure: Combination of COPD exacerbation and CHF exacerbation along with pneumonia and pulmonary hypertension will continue O2 updraft treatment diuretics steroid consult pulmonary. 2 COPD exacerbation: Patient will be on Solu-Medrol, DuoNeb, Pulmicort consult pulmonary continue Diamox as well. Decrease Solu-Medrol to 40 mg every 8 hours. Transition to oral prednisone tomorrow. Anticipate discharge tomorrow 3 CHF exacerbation: Mostly diastolic congestive heart failure acute on chronic and with the severity of the pulmonary hypertension and valvular heart disease will continue patient on furosemide 40 mg IV twice a day we'll consult cardiology this point. 4 bilateral pneumonia with possible gram-negative possible aspiration along with the potential of hospital-acquired pneumonia been in the hospital a few times last few weeks patient was giving 1 dose of Rocephin and azithromycin with switch patient to gram-negative coverage with Zosyn and possible Levaquin continue to watch for any sputum culture blood culture. 5 moderate to severe aortic stenosis with valvular heart disease: Her echo from last time was very positive patient is not in any condition currently for intervention continue medical management for now. 6 moderate to severe pulmonary hypertension: Eventually patient might need right-sided heart catheter in the meanwhile if she is able to tolerate calcium channel ira and titrate diuretics. 7 acute with recurrent gastrointestinal bleed: Last time was 2 weeks ago, since her last upper gastroscopy with intervention has not had any further bleeding hemoglobin is stable and holding well at this point. 8 acute kidney injury: With stage II chronic kidney disease continue to watch her kidney function and daily basis continue to watch her urine output. 9 type 2 diabetes on insulin: Insulin drip DC'd. Continue Levemir 30 units in the a.m. and 50 units daily at bedtime. NovoLog 20 units before meals and at bedtime. Continue with sliding scale. Solu-medrol dose decreased to 40 mg. 10 chronic pain management: Still on mild dose of hydrocodone along with Lyrica for chronic pain syndrome and chronic lower back pain. 11 hypertension: Remain on amlodipine and metoprolol. 12 hypothyroidism: Continue patient on levothyroxine 125 g daily. 13 restless leg syndrome: Remain on Requip 2 mg twice a day. 14 GI prophylaxis: Patient will be on pantoprazole. 16 DVT prophylaxis: Early mobilization and knee-high FILEMON hose. CODE STATUS: Full code. Admit patient to the inpatient service for more than 2 night stay. Discharge plan: Possible discharge Tuesday to subacute rehab preferably [facility] Impression and plan of care have been directed as dictated by the signing physician. Brandy Villatoro nurse practitioner acting as scribe for signing physician. Objective - Vital Signs Vital signs: Vital Signs Temp 97.6 F 03/30/20 08:45 Pulse 80 03/30/20 10:01 Resp 20 03/30/20 08:45 BP 143/59 03/30/20 08:45 Pulse Ox 97 03/30/20 08:45 Intake & Output 03/29/20 03/30/20 03/30/20 18:59 06:59 18:59 Intake Total 528.328 240 240 Output Total 924 218 3668 Balance -421.684 -827 -3935 Weight 115.7 kg Intake: Intake, IV Titration 48.328 Amount Insulin Regular 100 unit 48.328 In Sodium Chloride 0.9% 100 ml @ Titrate IV .Q0M [facility] Rx#:[id number] Oral 480 240 240 Output: Urine 433 564 2728 Other: Voiding Method Bedside Commode Bedside Commode # Voids 1 - Labs CBC & Chem 7: 03/30/20 07:08 03/30/20 07:08 Labs: Abnormal Lab Results - Last 24 Hours (Table) 03/29/20 03/29/20 03/29/20 Range/Units 08:38 10:18 11:00 WBC (3.8-10.6) k/uL RBC (3.80-5.40) m/uL Hgb (11.4-16.0) gm/dL Hct (34.0-46.0) % MCH (25.0-35.0) pg MCHC (31.0-37.0) g/dL RDW (11.5-15.5) % Neutrophils # (Manual) 15.20 H (1.3-7.7) k/uL Lymphocytes # (Manual) 0.32 L (1.0-4.8) k/uL Monocytes # (Manual) (0-1.0) k/uL Myelocytes # (Manual) (0) k/uL Nucleated RBCs (0-0) /100 WBC Carbon Dioxide (22-30) mmol/L BUN (7-17) mg/dL Creatinine (0.52-1.04) mg/dL Glucose (74-99) mg/dL POC Glucose (mg/dL) 315 H 268 H (75-99) mg/dL 03/29/20 03/29/20 03/29/20 Range/Units 12:03 13:41 14:59 WBC (3.8-10.6) k/uL RBC (3.80-5.40) m/uL Hgb (11.4-16.0) gm/dL Hct (34.0-46.0) % MCH (25.0-35.0) pg MCHC (31.0-37.0) g/dL RDW (11.5-15.5) % Neutrophils # (Manual) (1.3-7.7) k/uL Lymphocytes # (Manual) (1.0-4.8) k/uL Monocytes # (Manual) (0-1.0) k/uL Myelocytes # (Manual) (0) k/uL Nucleated RBCs (0-0) /100 WBC Carbon Dioxide (22-30) mmol/L BUN (7-17) mg/dL Creatinine (0.52-1.04) mg/dL Glucose (74-99) mg/dL POC Glucose (mg/dL) 219 H 210 H 202 H (75-99) mg/dL 03/29/20 03/29/20 03/29/20 Range/Units 16:59 20:45 20:47 WBC (3.8-10.6) k/uL RBC (3.80-5.40) m/uL Hgb (11.4-16.0) gm/dL Hct (34.0-46.0) % MCH (25.0-35.0) pg MCHC (31.0-37.0) g/dL RDW (11.5-15.5) % Neutrophils # (Manual) (1.3-7.7) k/uL Lymphocytes # (Manual) (1.0-4.8) k/uL Monocytes # (Manual) (0-1.0) k/uL Myelocytes # (Manual) (0) k/uL Nucleated RBCs (0-0) /100 WBC Carbon Dioxide (22-30) mmol/L BUN (7-17) mg/dL Creatinine (0.52-1.04) mg/dL Glucose (74-99) mg/dL POC Glucose (mg/dL) 292 H 503 H 467 H (75-99) mg/dL 03/30/20 03/30/20 03/30/20 Range/Units 06:58 07:08 07:08 WBC 12.9 H (3.8-10.6) k/uL RBC 3.34 L (3.80-5.40) m/uL Hgb 7.9 L (11.4-16.0) gm/dL Hct 28.8 L (34.0-46.0) % MCH 23.7 L (25.0-35.0) pg MCHC 27.5 L (31.0-37.0) g/dL RDW 18.6 H (11.5-15.5) % Neutrophils # (Manual) 10.84 H (1.3-7.7) k/uL Lymphocytes # (Manual) 0.65 L (1.0-4.8) k/uL Monocytes # (Manual) 1.42 H (0-1.0) k/uL Myelocytes # (Manual) 0.13 H (0) k/uL Nucleated RBCs 1 H (0-0) /100 WBC Carbon Dioxide 31 H (22-30) mmol/L BUN 40 H (7-17) mg/dL Creatinine 1.10 H (0.52-1.04) mg/dL Glucose 280 H (74-99) mg/dL POC Glucose (mg/dL) 314 H (75-99) mg/dL Microbiology - Last 24 Hours (Table) 03/27/20 15:53 Blood Culture - Preliminary Blood No Growth after 48 hours
--- NOTE | 2020-03-30 11:47 | PN ---
PROGRESS NOTE Mrs. Null is a 65-year-old female who presented with symptoms of worsening dyspnea with cough and possible combination of exacerbation of chronic obstructive pulmonary disease and mild diastolic dysfunction heart failure. She has history of pulmonary hypertension as well as moderate aortic stenosis. She is feeling better this morning. Her breathing is better. She denies any chest pain. She denies any dizziness. She denies any palpitations. She has been ambulating more and feels stronger. The plan is to see if she can be discharged for rehab at [facility]. She continues to be at this time on amlodipine 10 mg daily, Diamox, Lipitor 40 mg daily, Lasix 40 mg IV q.12 hours, isosorbide mononitrate 30 mg daily, methylprednisolone and metoprolol tartrate 50 mg twice a day. PHYSICAL EXAMINATION: Blood pressure 143/59 with a heart rate in the 80s. LUNGS: With mild decrease in breath sounds, no wheezes. HEART: Regular rate and rhythm. S1, S2. No S3. No rub. ABDOMEN: Soft, obese, nontender. EXTREMITIES: 1+ edema. LAB DATA: BUN and creatinine 41 and 0.1, hemoglobin of 7.9 which has been stable. IMPRESSION: 1. Symptoms of progressive dyspnea with a combination of exacerbation of chronic obstructive pulmonary disease and congestive heart failure with diastolic dysfunction. 2. History of aortic stenosis and pulmonary hypertension. 3. Chronic anemia. 4. Diabetic neuropathy. 5. Obesity. RECOMMENDATION: We will continue present therapy, increase her activity. If she is stable I would expect she should be able to be discharged home tomorrow. MMODL / IJN: [id number] /
[2020-03-30 12:11] LABS: Glucose,Whole Blood 225 mg/dL (75-99)
[2020-03-30] MEDS: FUROSEMIDE 40 MG TAB PO SCH (15:59)
[2020-03-30] MEDS: AZITHROMYCIN 500 MG TAB PO SCH (15:59)
[2020-03-30] MEDS: methylPREDNISolone SOD SUCCI 40 MG/ML 1 ML VIAL IV SCH (15:59)
--- NOTE | 2020-03-30 16:40 | PN ---
PROGRESS NOTE PULMONARY/CRITICAL CARE PROGRESS NOTE: DATE OF SERVICE: March 30, 2020 HISTORY: This is a 65-year-old female who sees my partner, Dr. Gomes. She presented to the emergency department on March 27, 2020 with complaints of difficulty breathing for a couple days prior to admission. She was admitted with a diagnosis of both COPD and CHF exacerbation. Currently, she is feeling much better. She is hoping to be discharged in the next day or 2. In addition to COPD and CHF, the patient has a diagnosis or history of acute on chronic hypoxemic respiratory failure, valvular heart disease, anemia, diabetes mellitus, sleep apnea syndrome, hypothyroidism, and chronic tobacco dependence. Currently, the patient is doing much better. She is sitting at the bedside. She is eating her lunch. PHYSICAL EXAMINATION: VITAL SIGNS: Current vital signs reveal temperature 98.2, heart rate 76, respiratory rate 20, blood pressure 113/57, mean 75, 3 L saturation 95%. GENERAL: Appears in no acute distress. HEENT: Examination is grossly unremarkable. Nasal O2 noted. NECK: Supple. Full range of motion. Neck veins are flat. CARDIOVASCULAR: Examination reveals regular rhythm and rate. Heart rate mid 70s. S1, S2 normal. No S3, S4, or murmur. LUNGS: Reveal mostly clear breath sounds. A few scattered mild bibasilar crackles. No rhonchi or wheezes. ABDOMEN: Obese. Bowel sounds are heard. EXTREMITIES reveals minimal edema. No cyanosis or clubbing. SKIN: Without rash. NEUROLOGIC: Examination is brief but nonfocal. LABS: Reviewed. White count 12.9, hemoglobin 7.9, hematocrit 28.8, platelet count 324,000. Sodium 139, potassium 4.4, chloride 99, CO2 31, anion gap is 9. BUN and creatinine were 40 and 1.10. Microbiologic studies are negative. No recent x-rays to report. Medications are reviewed. ASSESSMENT: 1. Shortness of breath, with acute on chronic hypoxemic respiratory failure, likely a combination of both congestive heart failure and chronic obstructive pulmonary disease exacerbations as well as possible underlying pneumonia. 2. Valvular heart disease. 3. Acute on chronic anemia, secondary to small bowel bleeding. 4. Diabetes mellitus. 5. Diabetic neuropathy. 6. Sleep apnea syndrome, maintained on home CPAP. 7. Hypothyroidism. 8. Prior history of heavy tobacco use. 9. Depression. 10.Obesity. 11.Multiple other medical problems and comorbidities. PLAN: Currently, the patient is doing relatively well. The patient currently is getting Diamox, Zithromax, Symbicort, Rocephin, DuoNeb, Solu-Medrol, Singulair, as well as all her other usual medications. The patient is hoping to be discharged in the next 24 to 48 hours. I encouraged her to deep breathe, cough and clear secretions. She will follow up with Dr. Gomes post discharge. No additional recommendations are made. Overall prognosis is guarded. MMODL / IJN: [id number] /
[2020-03-30 17:24] LABS: Glucose,Whole Blood 284 mg/dL (75-99)
[2020-03-30 21:08] LABS: Glucose,Whole Blood 364 mg/dL (75-99)
[2020-03-30] MEDS: MONTELUKAST 10 MG TAB PO SCH (21:11)
[2020-03-31] MEDS: methylPREDNISolone SOD SUCCI 40 MG/ML 1 ML VIAL IV SCH ×2 (00:23→08:37)
[2020-03-31] MEDS ORDERED: GLUCAGON 1 MG/ML VIAL ONE (00:40)
[2020-03-31] MEDS: LEVOTHYROXINE 125 MCG TAB PO SCH (07:01)
[2020-03-31 07:11] LABS: Glucose,Whole Blood 163 mg/dL (75-99)
[2020-03-31] MEDS: INSULIN DETEMIR (LEVEMIR) 100 UNIT/ML SYR SQ SCH (07:25)
[2020-03-31] MEDS: INSULIN ASPART (NovoLOG) 100 UNIT/ML VIAL SQ SCH ×4 (07:25→12:37)
[2020-03-31 07:34] LABS: Calcium 9.2 mg/dL (8.4-10.2); Potassium 4.9 mmol/L (3.5-5.1)
[2020-03-31] MEDS: FUROSEMIDE 40 MG TAB PO SCH (08:37)
[2020-03-31] MEDS: amLODIPine 10 MG TAB PO SCH (08:37)
[2020-03-31] MEDS: POTASSIUM CHLORIDE ER 10 MEQ TAB.ER.PRT PO SCH (08:37)
[2020-03-31] MEDS: ISOSORBIDE MONONITRATE ER 30 MG TAB.ER.24H PO SCH (08:37)
[2020-03-31] MEDS: PANTOPRAZOLE 40 MG TABLET PO SCH (08:38)
[2020-03-31] MEDS: acetaZOLAMIDE 250 MG TAB PO SCH (08:38)
[2020-03-31] MEDS: METOPROLOL TARTRATE 50 MG TAB PO SCH (08:38)
[2020-03-31] MEDS: FLUoxetine HCL 20 MG CAP PO SCH (08:38)
[2020-03-31] MEDS: PREGABALIN 100 MG CAP PO SCH (08:38)
[2020-03-31] MEDS: ATORVASTATIN 40 MG TAB PO SCH (08:38)
[2020-03-31] MEDS: methocarbamoL 500 MG TAB PO SCH (08:38)
[2020-03-31] MEDS: IPRATROPIUM-ALBUTEROL 3 ML NEB INHALATION SCH ×2 (09:04→11:24)
[2020-03-31] MEDS: SYMBICORT 160-4.5 MCG INHALER INHALATION SCH (09:04)
--- NOTE | 2020-03-31 09:29 | P.DS ---
Providers Date of admission: 03/27/20 16:54 Expected date of discharge: 03/31/20 Attending physician: Yoel Deras Consults: 03/27/20 16:54 Consult Physician Routine Consulting Provider: Ronen Wynne Consult Reason/Comments: Pneumonia, COPD, sepsis Do you want consulting provider notified?: Yes 03/27/20 19:14 Consult Physician Routine Consulting Provider: Selvin Scott Consult Reason/Comments: CHF Do you want consulting provider notified?: Yes Primary care physician: Yoel Deras [facility] Course: 65-year-old female one of my office patient who was in the hospital 10 days ago for acute gastrointestinal bleed and severe anemia was known to have advanced COPD on home BiPAP and oxygen history of diastolic congestive heart failure and valvular heart disease along with pulmonary hypertension who called the office with severe hypoxia was instructed to go to the emergency department her family drove her to the emergency department at [facility] where was seen and evaluated found to be in respiratory distress was started on high flow O2 and then BiPAP patient also found to be in fluid overload was giving IV diuretics start updraft treatment steroid had questionable of infiltrate in the bases mostly on the right side with question of aspiration pneumonia as well. Her troponin was low white blood cell was 18,000 hemoglobin remained stable at 8.8 from the time she left the hospital a week ago. Patient was hospitalized with acute respiratory failure secondary to COPD exacerbation, CHF exacerbation and bilateral pneumonia. 03/29: Patient is found sitting at the site of the bed. She is currently on an insulin drip with blood sugars running from 150-300. We will add Levemir 50 units at bedtime and 30 units in the morning increase NovoLog 20 units before meals and at bedtime and with sliding scale coverage. We will continue with the insulin drip until at least 2:00. Discussed with patient the concerns related to pulmonary hypertension and aortic stenosis. This discussion was also had with her and daughter yesterday evening. Patient states that she is able to breathe better. And she is feeling improvement. Patient has been afebrile. Heart rate 76, respirations 20, blood pressure 116/56, pulse ox 94% on 4 L nasal cannula. 03/30: Patient is found sitting up in the chair in no acute distress. She continues to have elevated blood sugars. Last night her blood sugar was in the 500s. We will continue with the Levemir 50 units and 30 units in the morning. Decrease Solu-Medrol to 40 mg every 8 hours. Patient will be transitioned to oral prednisone tomorrow for possible discharge. Patient is hopeful to go to a subacute rehab facility. She was seen by physical therapy on Tuesday. Patient will require covert test prior to transfer. Patient states that she is feeling better able to ambulate in the room with mild distress. Patient continues to be on 3 L of oxygen via nasal cannula pulse ox 97%, patient has been afebrile pulse rate 74, respirations 20 blood pressure 143/59. 03/31: Patient has been afebrile, heart rate 76, blood pressure 143/66, pulse ox 96% on 4 L nasal cannula. Repeat blood work reveals CO2 of 33, BUN 40 cre atinine 1.03. Sodium 138, potassium 4.9, chloride 100. Blood sugars are running between 155 and 364. The patient's breathing status is back to baseline and she is ready for discharge. Discussed discharge plan with the patient and she is planning to go to [facility]. PT notes are in and suggest home. Social work has been contacted to finalize discharge planning and will make arrangements for home care. Patient will be discharged in stable condition once all arrangements are completed. Assessment/Plan: 1 acute respiratory failure: Combination of COPD exacerbation and CHF exacerbation along with pneumonia and pulmonary hypertension. 2 COPD exacerbation. 3 acute on chronic diastolic heart failure, pulmonary hypertension and valvular heart disease 4 bilateral pneumonia with possible gram-negative possible aspiration 5 moderate to severe aortic stenosis with valvular heart disease 6 moderate to severe pulmonary hypertension 7 acute with recurrent gastrointestinal bleed: Last time was 2 weeks ago 8 acute kidney injury with stage II chronic kidney disease 9 type 2 diabetes on insulin 10 chronic pain management 11 hypertension 12 hypothyroidism 13 restless leg syndrome 14 chronic hypoxic respiratory failure with home O2 Discharge plan: Home with home care Impression and plan of care have been directed as dictated by the signing physician. Clarice Colón nurse practitioner acting as scribe for signing physician. Patient Condition at Discharge: Good Plan - Discharge Summary New Discharge Prescriptions: New Insulin Detemir (Levemir) [Levemir] 30 unit SQ DAILY@0700 syr predniSONE 0 mg PO DIRECTED #30 tab Azithromycin [Zithromax] 500 mg PO DAILY@1700 #5 tab Continue Insulin Glargine,Hum.rec.anlog [Toujeo Solostar] 50 units SQ HS rOPINIRole HCL [Requip] 2 mg PO BID Budesonide-Formot 160-4.5 Mcg [Symbicort 160-4.5 Mcg Inhaler] 2 puff INHALATION RT-BID Potassium Chloride ER [K-Dur 10] 10 meq PO BID Nitroglycerin Sl Tabs [Nitrostat] 0.4 mg SUBLINGUAL Q5M PRN PRN Reason: Chest Pain Montelukast Sodium [Singulair] 10 mg PO HS Metoprolol Tartrate [Lopressor] 50 mg PO BID methocarbamoL [Robaxin] 500 mg PO BID Levothyroxine Sodium 125 mcg PO DAILY sitaGLIPtin [Januvia] 100 mg PO DAILY Isosorbide Mononitrate ER [Imdur] 30 mg PO DAILY Glimepiride [Amaryl] 2 mg PO DAILY FLUoxetine HCL 20 mg PO DAILY Bumetanide 2 mg PO BID Atorvastatin [Lipitor] 40 mg PO DAILY amLODIPine [Norvasc] 10 mg PO DAILY Albuterol Nebulized [Ventolin Nebulized] 2.5 mg INHALATION RT-QID PRN PRN Reason: Shortness Of Breath Albuterol Inhaler [Ventolin Hfa Inhaler] 1 - 2 puff INHALATION RT-QID PRN PRN Reason: Shortness Of Breath acetaZOLAMIDE [Diamox] 250 mg PO DAILY #30 tablet polyethylene glycoL 3350 [Miralax] 17 gm PO DAILY powd.pack Pregabalin [Lyrica] 200 mg PO BID #6 cap Pantoprazole [Protonix] 40 mg PO BID #0 INSULIN ASPART (NovoLOG) [NovoLOG (formulary)] See Protocol SQ ACHS Sennosides-Docusate Sodium [Senokot-S] 1 tab PO BID Discharge Medication List Albuterol Inhaler [Ventolin Hfa Inhaler] 1 - 2 puff INHALATION RT-QID PRN 03/09/20 [History] Albuterol Nebulized [Ventolin Nebulized] 2.5 mg INHALATION RT-QID PRN 03/09/20 [History] Atorvastatin [Lipitor] 40 mg PO DAILY 03/09/20 [History] Budesonide-Formot 160-4.5 Mcg [Symbicort 160-4.5 Mcg Inhaler] 2 puff INHALATION RT-BID 03/09/20 [History] Bumetanide 2 mg PO BID 03/09/20 [History] FLUoxetine HCL 20 mg PO DAILY 03/09/20 [History] Glimepiride [Amaryl] 2 mg PO DAILY 03/09/20 [History] Insulin Glargine,Hum.rec.anlog [Toutammyo Solostar] 50 units SQ HS 03/09/20 [History] Isosorbide Mononitrate ER [Imdur] 30 mg PO DAILY 03/09/20 [History] Levothyroxine Sodium 125 mcg PO DAILY 03/09/20 [History] Metoprolol Tartrate [Lopressor] 50 mg PO BID 03/09/20 [History] Montelukast Sodium [Singulair] 10 mg PO HS 03/09/20 [History] Nitroglycerin Sl Tabs [Nitrostat] 0.4 mg SUBLINGUAL Q5M PRN 03/09/20 [History] Potassium Chloride ER [K-Dur 10] 10 meq PO BID 03/09/20 [History] amLODIPine [Norvasc] 10 mg PO DAILY 03/09/20 [History] methocarbamoL [Robaxin] 500 mg PO BID 03/09/20 [History] rOPINIRole HCL [Requip] 2 mg PO BID 03/09/20 [History] sitaGLIPtin [Januvia] 100 mg PO DAILY 03/09/20 [History] Pantoprazole [Protonix] 40 mg PO BID #0 03/17/20 [Rx] Pregabalin [Lyrica] 200 mg PO BID #6 cap 03/17/20 [Rx] acetaZOLAMIDE [Diamox] 250 mg PO DAILY #30 tablet 03/17/20 [Rx] polyethylene glycoL 3350 [Miralax] 17 gm PO DAILY powd.pack 03/17/20 [Rx] INSULIN ASPART (NovoLOG) [NovoLOG (formulary)] See Protocol SQ ACHS 03/27/20 [History] Sennosides-Docusate Sodium [Senokot-S] 1 tab PO BID 03/27/20 [History] Azithromycin [Zithromax] 500 mg PO DAILY@1700 #5 tab 03/31/20 [Rx] Insulin Detemir (Levemir) [Levemir] 30 unit SQ DAILY@0700 syr 03/31/20 [Rx] predniSONE 0 mg PO DIRECTED #30 tab 03/31/20 [Rx] Follow up Appointment(s)/Referral(s): Yoel Deras MD [Primary Care Provider] - 1 Week Discharge Disposition: HOME WITH HOME HEALTH SERVICES
[2020-03-31 11:28] VITALS: BP 110/63; PULSE 84; RESP 24; TEMP 97
[2020-03-31 12:15] LABS: Glucose,Whole Blood 352 mg/dL (75-99)
--- NOTE | 2020-03-31 14:07 | P.PN ---
Subjective Progress Note Date: 03/31/20 CHIEF COMPLAINT: CHF HISTORY OF PRESENT ILLNESS: Patient examined this morning bedside. She reports her shortness of breath is improving. She denies chest pain or pressure. Her Lasix has been transitioned to oral. Fluid balance over the last 24 hours is -2680 mL. Vital signs stable. PHYSICAL EXAM: VITAL SIGNS: Reviewed. GENERAL: Well-developed in no acute distress. NECK: Supple. No JVD or thyromegaly LUNGS: Respirations even and unlabored. Lungs diminished. HEART: Regular rate and rhythm. S1 and S2 heard. EXTREMITIES: Normal range of motion. No clubbing or cyanosis. Peripheral pulses intact. Trace bilateral lower extremity edema ASSESSMENT: Acute exacerbation of COPD Acute exacerbation of chronic diastolic congestive heart failure, EF 55-60% History of aortic stenosis and pulmonary hypertension PLAN: Patient has been cleared for discharge today per her admitting physician Agreeable to discharge today from a cardiac standpoint. Patient to resume her home dose of Demadex at the time of discharge Patient to follow up outpatient Nurse practitioner note has been reviewed by physician. Signing provider agrees with the documented findings, assessment, and plan of care. Objective - Vital Signs Vital signs: Vital Signs Temp 97 F L 03/31/20 11:26 Pulse 84 03/31/20 11:26 Resp 24 03/31/20 11:26 BP 110/63 03/31/20 11:26 Pulse Ox 97 03/31/20 11:26 Intake & Output 03/30/20 03/31/20 03/31/20 18:59 06:59 18:59 Intake Total 720 Output Total 2800 600 1550 Balance -2080 -600 -1550 Weight 115.1 kg Intake: Oral 720 Output: Urine 2800 600 1550 Other: Voiding Method Bedside Commode Bedside Commode Bedside Commode - Labs CBC & Chem 7: 03/30/20 07:08 03/31/20 06:39 Labs: Abnormal Lab Results - Last 24 Hours (Table) 03/30/20 03/30/20 03/31/20 Range/Units 16:55 20:31 06:39 Carbon Dioxide 33 H (22-30) mmol/L BUN 40 H (7-17) mg/dL Glucose 155 H (74-99) mg/dL POC Glucose (mg/dL) 284 H 364 H (75-99) mg/dL 03/31/20 03/31/20 Range/Units 07:10 12:13 Carbon Dioxide (22-30) mmol/L BUN (7-17) mg/dL Glucose (74-99) mg/dL POC Glucose (mg/dL) 163 H 352 H (75-99) mg/dL Microbiology - Last 24 Hours (Table) 03/27/20 15:53 Blood Culture - Preliminary Blood No Growth after 72 hours
--- NOTE | 2020-03-31 16:05 | P.PN ---
Subjective Progress Note Date: 03/31/20 Principal diagnosis: Acute exacerbation of COPD and CHF, valvular heart disease On 03/31/2020 patient seen in follow-up on selective care unit, she is awake and alert, in no acute distress, her breathing has improved, lower extremity edema has improved, she continues on diuretics, is in -2.6 L over the last 24 hours, she's been wearing BiPAP support at night, she does have a BiPAP machine at home, and she has home oxygen, today's labs have been reviewed, showing CO2 of 33, the rest of the electrolytes were unremarkable, BUN is 40 creatinine is 1.03. She denies any chest pain, she's had no acute events overnight, she has had no fever or chills, patient is sitting up in a chair, in no acute distress, breathing is comfortable. Discharge home is in progress and patient has resumed her oral dose Bumex and acetazolamide, she is also on breathing treatments, IV steroids, and empiric antibiotics Objective - Vital Signs Vital signs: Vital Signs Temp 97 F L 03/31/20 11:26 Pulse 84 03/31/20 11:26 Resp 24 03/31/20 11:26 BP 110/63 03/31/20 11:26 Pulse Ox 97 03/31/20 11:26 Intake & Output 03/30/20 03/31/20 03/31/20 18:59 06:59 18:59 Intake Total 720 Output Total 2800 600 1550 Balance -2080 -600 -1550 Weight 115.1 kg Intake: Oral 720 Output: Urine 2800 600 1550 Other: Voiding Method Bedside Commode Bedside Commode Bedside Commode - Exam GENERAL EXAM: Alert, very pleasant, 65-year-old white female, on 4 L of oxygen a pulse ox 97% comfortable in no apparent distress. HEAD: Normocephalic/atraumatic. EYES: Normal reaction of pupils, equal size. Conjunctiva pink, sclera white. NOSE: Clear with pink turbinates. THROAT: No erythema or exudates. NECK: No masses, no JVD, no thyroid enlargement, no adenopathy. CHEST: No chest wall deformity. Symmetrical expansion. LUNGS: Equal air entry with no crackles, wheeze, rhonchi or dullness. CVS: Regular rate and rhythm, normal S1 and S2, no gallops, no murmurs, no rubs ABDOMEN: Soft, nontender. No hepatosplenomegaly, normal bowel sounds, no guardi ng or rigidity. EXTREMITIES: No clubbing, 1+ lower extremity edema, no cyanosis, 2+ pulses and upper and lower extremities. MUSCULOSKELETAL: Muscle strength and tone normal. SPINE: No scoliosis or deformity SKIN: No rashes CENTRAL NERVOUS SYSTEM: Alert and oriented -3. No focal deficits, tone is n ormal in all 4 extremities. PSYCHIATRIC: Alert and oriented -3. Appropriate affect. Intact judgment and insight. - Labs CBC & Chem 7: 03/30/20 07:08 03/31/20 06:39 Labs: Abnormal Lab Results - Last 24 Hours (Table) 03/30/20 03/30/20 03/31/20 Range/Units 16:55 20:31 06:39 Carbon Dioxide 33 H (22-30) mmol/L BUN 40 H (7-17) mg/dL Glucose 155 H (74-99) mg/dL POC Glucose (mg/dL) 284 H 364 H (75-99) mg/dL 03/31/20 03/31/20 Range/Units 07:10 12:13 Carbon Dioxide (22-30) mmol/L BUN (7-17) mg/dL Glucose (74-99) mg/dL POC Glucose (mg/dL) 163 H 352 H (75-99) mg/dL Microbiology - Last 24 Hours (Table) 03/27/20 15:53 Blood Culture - Preliminary Blood No Growth after 72 hours Assessment and Plan Plan: Assessment: #1. Acute on chronic hypoxic respiratory failure related to acute exacerbation of diastolic CHF and acute exacerbation of COPD #2. Chronic hypoxic and hypercapnic respiratory failure related to history of diastolic CHF and chronic COPD, patient is on home oxygen and home BiPAP #3. History of the valvular heart disease #4. Severe pulmonary hypertension #5. Diabetes mellitus type 2 #6. Obstructive sleep apnea on BiPAP therapy #7. Hypothyroidism #8. History of smoking, currently in remission, patient carries 40 years of smoking of one pack a day #9. History of depression #10. Acute on chronic anemia related to recurrent GI bleeding #11. Obesity #12. Acute kidney injury with stage II chronic kidney disease #13. Restless leg syndrome Plan: Continue with diuretics, IV steroids to oral prednisone, continue with nebulized bronchodilators, patient is improving, she is maintaining negative fluid balance. No fever or chills, tolerating ambulation in the room, she is close to her baseline, discharge is pending for today, she has home oxygen, nebulized treatments and BiPAP machine at home, she will continue to follow Dr. Gomes in the office in 7-10 days I performed a history & physical examination of the patient and discussed their management with my nurse practitioner, Rika Hartley. I reviewed the nurse practitioner's note and agree with the documented findings and plan of care. Lung sounds are positive for diffuse wheezes throughout the lung phelps. The findings and the impression was discussed with the patient. I attest to the documentation by the nurse practitioner. Time with Patient: Less than 30
--- NOTE | 2020-04-02 14:52 | CDI ---
Documentation Clarification Form Date: 04/02/20 From: Carolyn Wesley CCS Phone: If you have a question about this query, please contact Dee Dee Bingham, Certified Detention Deputy at [phone] between 8am and 5pm. Admit Date: 03/27/20 Discharge Date:03/31/20 Patient Name: Saud Null Visit Number: [id number] ATTENTION: The Clinical Documentation Specialists (CDI) and [facility] Coding Staff appreciate your assistance in clarifying documentation. Please respond to the clarification below the line at the bottom and electronically sign. The CDI & [facility] Coding staff will review the response and follow-up if needed. Please note: Queries are made part of the Legal Health Record. If you have any questions, please contact the author of this message via ITS. Dear Dr. Deras, The diagnosis sepsis was documented in the ED notes, but is not noted in subsequent documentation. History/Risk Factors: PNA, CHF, CKD, HTN, DM, Obesity BMI 53 Clinical Indicators: Acute respiratory failure, Elevated WBC Vital signs: BP 99/48, IN 85, RR 25, Temp 98.3, O2 Sat 68 Labs: WBC 18.2, 13.4, 16.0- Lactic Acid 2.0 Treatment: Zithromax 500 mg IVPB, Rocephin 1,000 mg IVP, Rocephin 2 mg IVP Please clarify if the sepsis was: Present/active this admission xx Treated and resolved this admission Ruled out Other, please specify Clinically unable to determine MTDD
== END 2020-03-31 14:14 | disposition home health service (06) | DRG 871 ==
LOC: EC 13:54 → 3SCARD 16:54
PROVIDERS: ADMIT Internal Medicine Geriatric Medicine; ATTEND Internal Medicine Geriatric Medicine
PROC: 5A09457 Assistance with Respiratory Ventilation, 24-96 Consecutive Hours, Continuous Positive Airway Pressure (ICD-10-PCS; principal; 2020-03-27)
DX: A41.9 Sepsis, unspecified organism (principal); I50.33 Acute on chronic diastolic (congestive) heart failure; J96.21 Acute and chronic respiratory failure with hypoxia; J96.22 Acute and chronic respiratory failure with hypercapnia; J69.0 Pneumonitis due to inhalation of food and vomit; J15.6 Pneumonia due to other Gram-negative bacteria; I13.0 Hypertensive heart and chronic kidney disease with heart failure and stage 1 through stage 4 chronic kidney disease, or unspecified chronic kidney disease; N17.9 Acute kidney failure, unspecified; J44.1 Chronic obstructive pulmonary disease with (acute) exacerbation; J44.0 Chronic obstructive pulmonary disease with (acute) lower respiratory infection; Z68.43 Body mass index [BMI] 50.0-59.9, adult; D62 Acute posthemorrhagic anemia; Z20.828 Contact with and (suspected) exposure to other viral communicable diseases; I27.22 Pulmonary hypertension due to left heart disease; D63.1 Anemia in chronic kidney disease; E11.22 Type 2 diabetes mellitus with diabetic chronic kidney disease; E11.40 Type 2 diabetes mellitus with diabetic neuropathy, unspecified; Z99.81 Dependence on supplemental oxygen; Z79.4 Long term (current) use of insulin; N18.2 Chronic kidney disease, stage 2 (mild); E66.9 Obesity, unspecified; G89.4 Chronic pain syndrome; E03.9 Hypothyroidism, unspecified; G25.81 Restless legs syndrome; K44.9 Diaphragmatic hernia without obstruction or gangrene; I08.0 Rheumatic disorders of both mitral and aortic valves; E78.5 Hyperlipidemia, unspecified; G47.33 Obstructive sleep apnea (adult) (pediatric); F32.9 Major depressive disorder, single episode, unspecified; E11.65 Type 2 diabetes mellitus with hyperglycemia; I25.2 Old myocardial infarction; Z79.899 Other long term (current) drug therapy; Z79.51 Long term (current) use of inhaled steroids; Z79.890 Hormone replacement therapy; Z87.19 Personal history of other diseases of the digestive system; Z90.49 Acquired absence of other specified parts of digestive tract; Z98.890 Other specified postprocedural states; Z90.710 Acquired absence of both cervix and uterus; Z98.42 Cataract extraction status, left eye; Z98.41 Cataract extraction status, right eye; Z96.1 Presence of intraocular lens; Z87.891 Personal history of nicotine dependence; Z88.8 Allergy status to other drugs, medicaments and biological substances; Z84.1 Family history of disorders of kidney and ureter
CPT/HCPCS: 36415; 71045; 71046; 80048; 80053; 83036; 83605; 83735; 83880; 84145; 84484; 85025; 85610; 85730; 87040; 93005; 94640; 94660; 96365; 96366; 96368; 96375; 96376; 99291

== ENCOUNTER 2020-05-09 18:35 | Inpatient (IN) | payer MEDICARE, OTHER ==
[2020-05-09] MEDS ORDERED: SODIUM CHLORIDE 0.9% 1,000 ML IV STA (18:46)
[2020-05-09] MEDS ORDERED: FUROSEMIDE 10 MG/ML 4 ML VIAL IV STA (19:02)
--- NOTE | 2020-05-09 19:08 | ED ---
General Adult HPI - General Chief complaint: Shortness of Breath Stated complaint: SOB Time Seen by Provider: 05/09/20 18:42 Source: patient Mode of arrival: EMS Limitations: no limitations - History of Present Illness Initial comments: Dictation was produced using [employer] dictation software. please excuse any grammatical, word or spelling errors. This patient was cared for during a federal and state declared state of emergency secondary to Covid 19 Chief Complaint: 65-year-old female presents with 1 week of shortness of breath History of Present Illness: 65-year-old female she has multiple comorbidities. Patient has history of COPD, CHF, bleeding ulcer patient states that for the last week or so she's been having worsening shortness of breath. She states that she also feels like her legs are more swollen. Along with worsening symptoms with lying flat. Patient is a history of heart failure. She denies any fevers. She does report experiencing some mild chest pain earlier today. She states it's the right anterior chest. No radiation to the shoulders or jaw without any diaphoresis. She denies any chest pain currently. She does feel shortness of breath. Decadron is at bedside coincidentally. He reports that roberto carlos woodward has history of COPD and CHF with worsening shortness of breath for the last week. He is also report that patient is revealed with a bleeding peptic ulcer for the last several weeks. The ROS documented in this emergency department record has been reviewed and confirmed by me. Those systems with pertinent positive or negative responses have been documented in the HPI. All other systems are other negative and/or noncontributory. PHYSICAL EXAM: General Impression: Alert and oriented x3, mildly dyspneic, obese HEENT: Normocephalic atraumatic, extra-ocular movements intact, pupils equal and reactive to light bilaterally, mucous membranes moist. Cardiovascular: Heart regular rate and rhythm Chest: 4 word sentences, mildly dyspneic however no retractions and no tachypnea Abdomen: abdomen soft, non-tender, non-distended, no organomegaly Musculoskeletal: Pulses present and equal in all extremities, 2+ pitting edema Motor: no focal deficits noted Neurological: CN II-XII grossly intact, no focal motor or sensory deficits noted Skin: Intact with no visualized rashes Psych: Normal affect and mood ED course: 65 yo female presents with dyspnea times one week. She does appear to be mildly dyspneic at bedside. Vital signs are stable. She is 95% on nonrebreather. Bony care bedside ultrasound was performed showing bilateral kamar B lines consistent with pulmonary edema.Patient's medications are reviewed.Laboratory evaluation obtained. CBC obtained shows leukocytosis of 15.6. Hemoglobin 7.6. These appear to be around patient's baseline. Coag panel is unremarkable. Metabolic panel is unremarkable. Lactic acidosis of 2.4. Rotavirus rapid test is negative. Chest x-ray shows pulmonary vascular congestion increased. Clinical breast is consistent with congestive heart failure exacerbation. Patient be admitted for gentle diuresis. Patient will be admitted to Dr. Deras service. Cardiology will be consulted. EKG interpretation: Ventricular rate 81, normal sinus rhythm,. Interval 160, QRS 96, QTC 462. No HI prolongation, no QTC prolongation, no ST or T-wave liu ges noted. EKG compared to 03/27/2020 showing no changes. Overall, this EKG is unremarkable - Related Data Home Medications Medication Instructions Recorded Confirmed Albuterol Inhaler [Ventolin Hfa 1 - 2 puff INHALATION RT-QID PRN 03/09/20 03/27/20 Inhaler] Albuterol Nebulized [Ventolin 2.5 mg INHALATION RT-QID PRN 03/09/20 03/27/20 Nebulized] Atorvastatin [Lipitor] 40 mg PO DAILY 03/09/20 03/27/20 Budesonide-Formot 160-4.5 Mcg 2 puff INHALATION RT-BID 03/09/20 03/27/20 [Symbicort 160-4.5 Mcg Inhaler] Bumetanide 2 mg PO BID 03/09/20 03/27/20 FLUoxetine HCL 20 mg PO DAILY 03/09/20 03/27/20 Glimepiride [Amaryl] 2 mg PO DAILY 03/09/20 03/27/20 Insulin Glargine,Hum.rec.anlog 50 units SQ HS 03/09/20 03/27/20 [Toujeo Solostar] Isosorbide Mononitrate ER [Imdur] 30 mg PO DAILY 03/09/20 03/27/20 Levothyroxine Sodium 125 mcg PO DAILY 03/09/20 03/27/20 Metoprolol Tartrate [Lopressor] 50 mg PO BID 03/09/20 03/27/20 Montelukast Sodium [Singulair] 10 mg PO HS 03/09/20 03/27/20 Nitroglycerin Sl Tabs [Nitrostat] 0.4 mg SUBLINGUAL Q5M PRN 03/09/20 03/27/20 Potassium Chloride ER [K-Dur 10] 10 meq PO BID 03/09/20 03/27/20 amLODIPine [Norvasc] 10 mg PO DAILY 03/09/20 03/27/20 methocarbamoL [Robaxin] 500 mg PO BID 03/09/20 03/27/20 rOPINIRole HCL [Requip] 2 mg PO BID 03/09/20 03/27/20 sitaGLIPtin [Januvia] 100 mg PO DAILY 03/09/20 03/27/20 INSULIN ASPART (NovoLOG) [NovoLOG See Protocol SQ ACHS 03/27/20 03/27/20 (formulary)] Sennosides-Docusate Sodium 1 tab PO BID 03/27/20 03/27/20 [Senokot-S] Previous Rx's Medication Instructions Recorded Pantoprazole [Protonix] 40 mg PO BID #0 03/17/20 Pregabalin [Lyrica] 200 mg PO BID #6 cap 03/17/20 acetaZOLAMIDE [Diamox] 250 mg PO DAILY #30 tablet 03/17/20 polyethylene glycoL 3350 [Miralax] 17 gm PO DAILY powd.pack 03/17/20 Azithromycin [Zithromax] 500 mg PO DAILY@1700 #5 tab 03/31/20 Insulin Detemir (Levemir) [Levemir] 30 unit SQ DAILY@0700 syr 03/31/20 predniSONE 0 mg PO DIRECTED #30 tab 03/31/20 Allergies Allergy/AdvReac Type Severity Reaction Status Date / Time cisatracurium [From Nimbex] Allergy Rash/Hives Verified 05/09/20 18:50 Review of Systems ROS Statement: Those systems with pertinent positive or pertinent negative responses have been documented in the HPI. ROS Other: All systems not noted in ROS Statement are negative. Past Medical History Past Medical History: Heart Failure, COPD, GI Bleed, Respiratory Disorder Additional Past Medical History / Comment(s): heart murmur, neuropathy Last Myocardial Infarction Date:: 2019 History of Any Multi-Drug Resistant Organisms: None Reported Date of last positivie culture/infection: 04/2019 MDRO Source:: URINE Past Surgical History: Section, Cholecystectomy, Heart Catheterization, Hysterectomy, Orthopedic Surgery Additional Past Surgical History / Comment(s): Gi cauterization 02/22/2020; heart cath 12/26/2019; cataracts removal, lens placement. Past Anesthesia/Blood Transfusion Reactions: Previous Problems w/ Anesthesia Additional Past Anesthesia/Blood Transfusion Reaction / Comment(s): ALLERGY TO CISATRACURIUM- FACE TURNED RED/SWOLLEN Past Psychological History: No Psychological Hx Reported Smoking Status: Former smoker Past Alcohol Use History: None Reported Past Drug Use History: None Reported - Past Family History Mother Family Medical History: Renal Disease Additional Family Medical History / Comment(s): Mother was on Hemodilaysis General Exam Limitations: no limitations Course Vital Signs 05/09/20 05/09/20 18:47 18:49 Temperature 98.4 F Pulse Rate 84 Respiratory 18 30 H Rate Blood Pressure 132/44 O2 Sat by Pulse 95 Oximetry Medical Decision Making - Lab Data Result diagrams: 05/09/20 18:51 05/09/20 18:51 Lab Results 05/09/20 05/09/20 05/09/20 Range/Units 18:51 18:51 18:51 WBC 15.6 H (3.8-10.6) k/uL RBC 3.30 L (3.80-5.40) m/uL Hgb 7.6 L (11.4-16.0) gm/dL Hct 28.1 L (34.0-46.0) % MCV 85.2 (80.0-100.0) fL MCH 23.0 L (25.0-35.0) pg MCHC 26.9 L (31.0-37.0) g/dL RDW 19.4 H (11.5-15.5) % Plt Count 291 (150-450) k/uL MPV 7.1 Hypochromasia Marked Poikilocytosis Slight Anisocytosis Slight Microcytosis Slight PT 9.5 (9.0-12.0) sec INR 0.9 (<1.2) APTT 22.0 (22.0-30.0) sec Sodium 136 L (137-145) mmol/L Potassium 4.4 (3.5-5.1) mmol/L Chloride 101 (98-107) mmol/L Carbon Dioxide 27 (22-30) mmol/L Anion Gap 8 mmol/L BUN 28 H (7-17) mg/dL Creatinine 0.91 (0.52-1.04) mg/dL Est GFR (CKD-EPI)AfAm 76 (>60 ml/min/1.73 sqM) Est GFR (CKD-EPI)NonAf 66 (>60 ml/min/1.73 sqM) Glucose 321 H (74-99) mg/dL Plasma Lactic Acid Itz (0.7-2.0) mmol/L Calcium 8.7 (8.4-10.2) mg/dL Total Bilirubin 0.3 (0.2-1.3) mg/dL AST 22 (14-36) U/L ALT 15 (4-34) U/L Alkaline Phosphatase 140 H (38-126) U/L Troponin I (0.000-0.034) ng/mL Total Protein 6.7 (6.3-8.2) g/dL Albumin 3.7 (3.5-5.0) g/dL Coronavirus (PCR) (Not Detectd) 05/09/20 05/09/20 05/09/20 Range/Units 18:51 18:51 19:02 WBC (3.8-10.6) k/uL RBC (3.80-5.40) m/uL Hgb (11.4-16.0) gm/dL Hct (34.0-46.0) % MCV (80.0-100.0) fL MCH (25.0-35.0) pg MCHC (31.0-37.0) g/dL RDW (11.5-15.5) % Plt Count (150-450) k/uL MPV Hypochromasia Poikilocytosis Anisocytosis Microcytosis PT (9.0-12.0) sec INR (<1.2) APTT (22.0-30.0) sec Sodium (137-145) mmol/L Potassium (3.5-5.1) mmol/L Chloride (98-107) mmol/L Carbon Dioxide (22-30) mmol/L Anion Gap mmol/L BUN (7-17) mg/dL Creatinine (0.52-1.04) mg/dL Est GFR (CKD-EPI)AfAm (>60 ml/min/1.73 sqM) Est GFR (CKD-EPI)NonAf (>60 ml/min/1.73 sqM) Glucose (74-99) mg/dL Plasma Lactic Acid Itz 2.4 H* (0.7-2.0) mmol/L Calcium (8.4-10.2) mg/dL Total Bilirubin (0.2-1.3) mg/dL AST (14-36) U/L ALT (4-34) U/L Alkaline Phosphatase (38-126) U/L Troponin I <0.012 (0.000-0.034) ng/mL Total Protein (6.3-8.2) g/dL Albumin (3.5-5.0) g/dL Coronavirus (PCR) Not Detected (Not Detectd) Disposition Clinical Impression: CHF exacerbation Disposition: ADMITTED IP TO THIS [facility] Condition: Fair Referrals: Yoel Deras MD [Primary Care Provider] - 1-2 days Decision Time: 21:01
[2020-05-09 19:25] LABS: Albumin 3.7 g/dL (3.5-5.0); Calcium 8.7 mg/dL (8.4-10.2); Potassium 4.4 mmol/L (3.5-5.1); Total Bilirubin 0.3 mg/dL (0.2-1.3); Total Protein 6.7 g/dL (6.3-8.2)
[2020-05-09 19:42] LABS: INR 0.9 (<1.2); Prothrombin Time 9.5 sec (9.0-12.0)
--- NOTE | 2020-05-09 19:46 | XR ---
EXAMINATION TYPE: XR chest 2V DATE OF EXAM: 05/09/2020 COMPARISON: 04/03/2020 HISTORY: Short of breath TECHNIQUE: FINDINGS: Heart is enlarged. There is some pulmonary vascular congestion. There is slight blunting of the costophrenic angles. There are chest leads. IMPRESSION: There is evidence for congestive heart failure that is increased compared to old exam. Pu lmonary congestion increased.
[2020-05-09 19:47] LABS: Anisocytosis Slight; HCT 28.1 % (34.0-46.0); HGB 7.6 gm/dL (11.4-16.0); Hypochromasia Marked; MCHC 26.9 g/dL (31.0-37.0); MCV 85.2 fL (80.0-100.0); Mean Platelet Volume 7.1; Microcytosis Slight; Platelet Count 291 k/uL (150-450); Poikilocytosis Slight; RDW 19.4 % (11.5-15.5)
[2020-05-09 21:17] LABS: Band Neutrophils % 1 %; Eosinophils # (M) 0.15 k/uL (0-0.7); Lymphocytes # (M) 1.23 k/uL (1.0-4.8); Metamyelocytes # (M) 0.15 k/uL (0); Metamyelocytes % 1 %; Monocytes # (M) 0.77 k/uL (0-1.0); Myelocytes # (M) 0.77 k/uL (0); Myelocytes % 5 %; Neutrophils % (M) 81 %; Nucleated Red Blood Cells 1 /100 WBC (0-0); Polychromasia Present; Total Cells Counted 200; WBC 15.4 k/uL (3.8-10.6)
[2020-05-09 21:18] LABS: Stomatocytes Present
--- NOTE | 2020-05-09 21:45 | P.HPIM ---
History of Present Illness H&P Date: 05/09/20 Chief Complaint: Acute respiratory failure, pulmonary edema and congestive heart failure, se 65-year-old mildly overweight female one of my office patient with known for the last few month with multi medical problem was known to have history of recurrent gastrointestinal bleed with multi blood transfusion and multi admission to the hospital with multi EGD and GI workup was the hospital last 03/27/2020 for worsening respiratory failure with worsening dyspnea and shortness of breath found to have acute anemia with worsening chest pain or worsening heart failure at the time. 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 Patient was with her in the emergency room the day before and was doing well herself. She developed to have sudden onset of worsening dyspnea and joan rtness of breath with worsening PND and orthopnea felt was gasping for air. Patient ask her to drive her to [facility] department have to wait to she become in extreme respiratory distress 911 was called and patient was transported the rest of the way up by EMS at the time was any seen in [facility] chest x-ray showed cephalization and pulmonary edema. Patient was started on IV furosemide she started on diuretics as well will be admitted to the hospital have cardiology seen her CK and troponin first one negative hemoglobin is down 1 g from last week at 7.7. Kidney function still holding well at this point. Review of Systems CONSTITUTIONAL: Morbidly obese in acute respiratory distress. EYES: No icterus sclerae, no conjunctivitis. EARS, NOSE, MOUTH, THROAT, and FACE: No sore throat, lymphadenopathy, carotid bruits or deformity. RESPIRATORY: Positive shortness of breath cough wheezes CARDIOVASCULAR: Positive PND orthopnea and palpitation with worsening dyspnea with minimal exertion. GASTROINTESTINAL: No Abd pain, Nausea or vomiting, no Diarrhea or constipation, still have significant change in bowel habits or tarry stool with no bright red blood per rectum. GENITOURINARY: Negative for Hematuria or UTI, no kidney stones. INTEGUMENT/BREAST: Generalized arthralgia and myalgia. HEMATOLOGIC/LYMPHATIC: Negative for bleed or purpura. MUSCULOSKELTAL: Generalized arthralgia and myalgia NEURLOGICAL: No LOC, Sz or syncope, blurred vision dizziness or abnormality.. BEHAVIORAL/PSYCH: Negative. ENDOCRINE: Negative. Past Medical History Past Medical History: Heart Failure, COPD, GI Bleed, Respiratory Disorder Additional Past Medical History / Comment(s): heart murmur, neuropathy Last Myocardial Infarction Date:: 2018 History of Any Multi-Drug Resistant Organisms: None Reported Date of last positivie culture/infection: 04/2019 MDRO Source:: URINE Past Surgical History: Section, Cholecystectomy, Heart Catheterization, Hysterectomy, Orthopedic Surgery Additional Past Surgical History / Comment(s): Gi cauterization 02/22/2020; heart cath 12/26/2019; cataracts removal, lens placement. Past Anesthesia/Blood Transfusion Reactions: Previous Problems w/ Anesthesia Additional Past Anesthesia/Blood Transfusion Reaction / Comment(s): ALLERGY TO CISATRACURIUM- FACE TURNED RED/SWOLLEN Past Psychological History: No Psychological Hx Reported Smoking Status: Former smoker Past Alcohol Use History: None Reported Past Drug Use History: None Reported - Past Family History Mother Family Medical History: Renal Disease Additional Family Medical History / Comment(s): Mother was on Hemodilaysis Medications and Allergies Home Medications Medication Instructions Recorded Confirmed Type Albuterol Inhaler [Ventolin Hfa 1 - 2 puff INHALATION RT-QID PRN 03/09/20 03/27/20 History Inhaler] Albuterol Nebulized [Ventolin 2.5 mg INHALATION RT-QID PRN 03/09/20 03/27/20 History Nebulized] Atorvastatin [Lipitor] 40 mg PO DAILY 03/09/20 03/27/20 History Budesonide-Formot 160-4.5 Mcg 2 puff INHALATION RT-BID 03/09/20 03/27/20 History [Symbicort 160-4.5 Mcg Inhaler] Bumetanide 2 mg PO BID 03/09/20 03/27/20 History FLUoxetine HCL 20 mg PO DAILY 03/09/20 03/27/20 History Glimepiride [Amaryl] 2 mg PO DAILY 03/09/20 03/27/20 History Insulin Glargine,Hum.rec.anlog 50 units SQ HS 03/09/20 03/27/20 History [Toujeo Solostar] Isosorbide Mononitrate ER [Imdur] 30 mg PO DAILY 03/09/20 03/27/20 History Levothyroxine Sodium 125 mcg PO DAILY 03/09/20 03/27/20 History Metoprolol Tartrate [Lopressor] 50 mg PO BID 03/09/20 03/27/20 History Montelukast Sodium [Singulair] 10 mg PO HS 03/09/20 03/27/20 History Nitroglycerin Sl Tabs [Nitrostat] 0.4 mg SUBLINGUAL Q5M PRN 03/09/20 03/27/20 History Potassium Chloride ER [K-Dur 10] 10 meq PO BID 03/09/20 03/27/20 History amLODIPine [Norvasc] 10 mg PO DAILY 03/09/20 03/27/20 History methocarbamoL [Robaxin] 500 mg PO BID 03/09/20 03/27/20 History rOPINIRole HCL [Requip] 2 mg PO BID 03/09/20 03/27/20 History sitaGLIPtin [Januvia] 100 mg PO DAILY 03/09/20 03/27/20 History Pantoprazole [Protonix] 40 mg PO BID #0 03/17/20 03/27/20 Rx Pregabalin [Lyrica] 200 mg PO BID #6 cap 03/17/20 03/27/20 Rx acetaZOLAMIDE [Diamox] 250 mg PO DAILY #30 tablet 03/17/20 03/27/20 Rx polyethylene glycoL 3350 [Miralax] 17 gm PO DAILY powd.pack 03/17/20 03/27/20 Rx INSULIN ASPART (NovoLOG) [NovoLOG See Protocol SQ ACHS 03/27/20 03/27/20 History (formulary)] Sennosides-Docusate Sodium 1 tab PO BID 03/27/20 03/27/20 History [Senokot-S] Azithromycin [Zithromax] 500 mg PO DAILY@1700 #5 tab 03/31/20 Rx Insulin Detemir (Levemir) [Levemir] 30 unit SQ DAILY@0700 syr 03/31/20 Rx predniSONE 0 mg PO DIRECTED #30 tab 03/31/20 Rx Allergies Allergy/AdvReac Type Severity Reaction Status Date / Time cisatracurium [From Nimbex] Allergy Rash/Hives Verified 05/09/20 18:50 Physical Exam Vitals: Vital Signs Temp Pulse Resp BP Pulse Ox 05/09/20 18:49 30 H 05/09/20 18:47 98.4 F 84 18 132/44 95 Intake and Output 05/09/20 05/09/20 05/09/20 06:59 14:59 22:59 Other: Weight 108.862 kg General Appearance: Alert, cooperative, no distress, morbidly obese Neck HEENT: Supple, no lymphadenopathy, no thyroid enlargement, no carotid bruits. Lungs: Decreased breath some bilateral rhonchi positive mild expected wheezes Chest Wall: Decrease with deep inspiration no tenderness and no deformity was f ound on exam, no costochondral pain or discomfort. Heart: Regular rate and rhythm, S1, S2 normal, no murmur, rub or gallop. Back: Symmetric, no curvature, ROM normal, no CVA tenderness. Abdomen: Soft, non-tender, bowel sounds active all four quadrants, no masses, no organomegaly. Extremities: Significant edema or decreased pulse bilaterally with slight bruising lower extremity. Pulses: 2+ and symmetric. Skin: Skin color, texture, tugor normal, no rashes or lesions. Neurologic: Alert oriented x3 cranial nerves II through XII intact, no motor deficit, no abnormal balance or gait. Results CBC & Chem 7: 05/09/20 18:51 05/09/20 18:51 Labs: Abnormal Lab Results - Last 24 Hours (Table) 05/09/20 05/09/20 05/09/20 Range/Units 18:51 18:51 18:51 WBC 15.4 H (3.8-10.6) k/uL RBC 3.30 L (3.80-5.40) m/uL Hgb 7.6 L (11.4-16.0) gm/dL Hct 28.1 L (34.0-46.0) % MCH 23.0 L (25.0-35.0) pg MCHC 26.9 L (31.0-37.0) g/dL RDW 19.4 H (11.5-15.5) % Neutrophils # (Manual) 12.60 H (1.3-7.7) k/uL Metamyelocytes # (Man) 0.15 H (0) k/uL Myelocytes # (Manual) 0.77 H (0) k/uL Nucleated RBCs 1 H (0-0) /100 WBC Sodium 136 L (137-145) mmol/L BUN 28 H (7-17) mg/dL Glucose 321 H (74-99) mg/dL Plasma Lactic Acid Itz 2.4 H* (0.7-2.0) mmol/L Alkaline Phosphatase 140 H (38-126) U/L Thrombosis Risk Factor Assmnt - DVT/VTE Prophylaxis DVT/VTE Prophylaxis: Pharmacologic Prophylaxis ordered, Mechanical Prophylaxis ordered Assessment and Plan Assessment: 1 acute respiratory failure: Secondary to congestive heart failure and COPD along with acute anemia admit patient to the hospital consult pulmonary and cardiology continue diuretics and watch daily weight. 2 congestive heart failure exacerbation: Mostly diastolic dysfunction, ejection fraction was 55-60% eye recently patient will be on IV diuretics will consult cardiology continue current management. 3 moderate to severe aortic stenosis with valvular heart disease also had moderate mitral regurgitation and moderate pulmonary hypertension: Patient co ntinue with the current management patient is not a candidate for any invasive procedure currently. 4 COPD excessive patient: Patient has been on DuoNeb and Pulmicort Will add Diamox and Solu-Medrol consult pulmonary. 5 aspiration pneumonia: Right side consolidation is still minor patient be on Zo syn IV. 6 recurrent acute gastrointestinal bleed: With significant drop in hemoglobin lately will require blood transfusion continue PPI IV consult gastroenterology. 7 metabolic acidosis and lactic acidosis: Patient will be on hydration blood transfusion and recheck for any active acute infection. 8 type 2 diabetes and insulin: Resume Accu-Chek with sliding scales coverage also resume Lantus and NovoLog. 9 hypothyroidism: Continue levothyroxine at 125 g daily. 10 restless leg syndrome: Patient has been on Requip 2 mg twice a day. 11 hypertension: Blood pressure still mildly elevated continue patient on metoprolol and amlodipine. 12 acute kidney injury with chronic kidney disease: Continue to watch kidney function especially with the current diuretics. 13 recurrent history of angina: With worsening symptom causing acute pulmonary edema might add isosorbide mononitrate and recheck for any worsening symptoms no heart catheter is required this point. 14 GI prophylaxis: Patient be on pantoprazole. 15 DVT prophylaxis: Patient will have early mobilization along with knee-high FILEMON hose. CODE STATUS: Full code. Admit patient to the inpatient service for more than 2 night stay.
[2020-05-09] MEDS: SODIUM CHLORIDE 0.9% 1,000 ML IV SCH (22:12)
[2020-05-09] MEDS: FUROSEMIDE 10 MG/ML 4 ML VIAL IV SCH (22:13)
[2020-05-09] MEDS ORDERED: ALBUTEROL HFA INHALER INHALATION PRN (23:23)
[2020-05-09] MEDS ORDERED: NITROGLYCERIN SL TABS 0.4 MG TAB SUBLINGUAL PRN (23:23)
[2020-05-10] MEDS ORDERED: LORazepam 2 MG/ML INJ IV STA (04:38)
[2020-05-10] MEDS: FUROSEMIDE 10 MG/ML 4 ML VIAL IV SCH ×3 (04:53→20:37)
[2020-05-10] MEDS: SYMBICORT 160-4.5 MCG INHALER INHALATION SCH ×2 (07:41→20:53)
[2020-05-10] MEDS: ALBUTEROL NEBULIZED 2.5 MG/3 ML INHALATION PRN ×3 (07:41→20:53)
[2020-05-10] MEDS ORDERED: GLIMEPIRIDE 2 MG TAB PO SCH (09:00)
[2020-05-10] MEDS ORDERED: methocarbamoL 500 MG TAB PO PRN (09:00)
[2020-05-10] MEDS ORDERED: SENNOSIDES-DOCUSATE SODIUM 1 EACH TAB PO PRN (09:00)
[2020-05-10] MEDS ORDERED: LINAGLIPTIN 5 MG TABLET PO SCH (09:00)
[2020-05-10] MEDS: FLUoxetine HCL 20 MG CAP PO SCH (09:20)
[2020-05-10] MEDS: ISOSORBIDE MONONITRATE ER 30 MG TAB.ER.24H PO SCH (09:21)
[2020-05-10] MEDS: METOPROLOL TARTRATE 50 MG TAB PO SCH ×2 (09:21→20:36)
[2020-05-10] MEDS: amLODIPine 5 MG TAB PO SCH (09:21)
[2020-05-10] MEDS: acetaZOLAMIDE 250 MG TAB PO SCH (09:21)
[2020-05-10] MEDS: BUMETANIDE 1 MG TAB PO SCH ×2 (09:21→20:36)
[2020-05-10] MEDS: LEVOTHYROXINE 125 MCG TAB PO SCH (09:21)
[2020-05-10] MEDS: PREGABALIN 100 MG CAP PO SCH ×2 (09:22→20:36)
[2020-05-10] MEDS: SPIRONOLACTONE 25 MG TAB PO SCH (09:22)
[2020-05-10] MEDS: POTASSIUM CHLORIDE ER 10 MEQ TAB.ER.PRT PO SCH ×2 (09:22→20:36)
[2020-05-10] MEDS: ATORVASTATIN 40 MG TAB PO SCH (09:22)
[2020-05-10] MEDS: PANTOPRAZOLE 40 MG TABLET PO SCH ×2 (09:22→20:36)
[2020-05-10] MEDS ORDERED: HYDROmorphone 0.5 MG/0.5 ML SYRINGE IVP STA (09:46)
[2020-05-10] MEDS ORDERED: LORazepam 2 MG/ML INJ IV PRN (09:46)
[2020-05-10 10:27] LABS: Albumin 3.6 g/dL (3.5-5.0); Calcium 8.2 mg/dL (8.4-10.2); Potassium 4.7 mmol/L (3.5-5.1); Total Bilirubin 0.4 mg/dL (0.2-1.3); Total Protein 6.3 g/dL (6.3-8.2)
[2020-05-10 10:30] LABS: Anisocytosis Slight; Basophils % (A) 0 %; Eosinophils % (A) 0 %; HCT 26.6 % (34.0-46.0); Hypochromasia Marked; Lymphocytes # (A) 0.6 k/uL (1.0-4.8); Lymphocytes % (A) 4 %; MCH 23.5 pg (25.0-35.0); MCHC 26.4 g/dL (31.0-37.0); MCV 88.8 fL (80.0-100.0); Mean Platelet Volume 7.5; Monocytes # (A) 0.7 k/uL (0-1.0); Monocytes % (A) 4 %; Neutrophils # (A) 13.7 k/uL (1.3-7.7); Neutrophils % (A) 90 %; Platelet Count 245 k/uL (150-450); Poikilocytosis Slight; RDW 19.5 % (11.5-15.5); WBC 15.2 k/uL (3.8-10.6)
--- NOTE | 2020-05-10 10:31 | P.PN ---
Subjective Progress Note Date: 05/10/20 65-year-old mildly overweight female one of my office patient with known for the last few month with multi medical problem was known to have history of recurrent gastrointestinal bleed with multi blood transfusion and multi admission to the hospital with multi EGD and GI workup was the hospital last 03/27/2020 for worsening respiratory failure with worsening dyspnea and shortness of breath found to have acute anemia with worsening chest pain or worsening heart failure at the time. 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 Patient was with her in the emergency room the day before and was doing well herself. She developed to have sudden onset of worsening dyspnea and shortness of breath with worsening PND and orthopnea felt was gasping for air. Patient ask her to drive her to [facility] department have to wait to she become in extreme respiratory distress 911 was called and patient was transported the rest of the way up by EMS at the time was any seen in [facility] chest x-ray showed cephalization and pulmonary edema. Patient was started on IV furosemide she started on diuretics as well will be admitted to the hospital have cardiology seen her CK and troponin first one negative hemoglobin is down 1 g from last week at 7.7. Kidney function still holding well at this point. 05/10: Patient is found to be sitting up in a chair in moderate distress with a BiPAP machine in place. Patient states that she is able to breathe a little bit better. Continues to have increased anxiety and shortness of breath. Patient remains afebrile, heart rate 18 labored, blood pressure 131/59, pulse oxing 100% on BiPAP. WCC 50.4, hemoglobin 7.6, potassium 4.4, BUN 28, creatinine 0.91, covid 19 negative. Troponin less than 0.012 Review of systems: CONSTITUTIONAL: Morbidly obese in acute respiratory distress. EYES: No icterus sclerae, no conjunctivitis. EARS, NOSE, MOUTH, THROAT, and FACE: No sore throat, lymphadenopathy, carotid bruits or deformity. RESPIRATORY: Positive shortness of breath cough wheezes CARDIOVASCULAR: Positive PND orthopnea and palpitation with worsening dyspnea with minimal exertion. GASTROINTESTINAL: No Abd pain, Nausea or vomiting, no Diarrhea or constipation, still have significant change in bowel habits or tarry stool with no bright red blood per rectum. GENITOURINARY: Negative for Hematuria or UTI, no kidney stones. INTEGUMENT/BREAST: Generalized arthralgia and myalgia. HEMATOLOGIC/LYMPHATIC: Negative for bleed or purpura. MUSCULOSKELTAL: Generalized arthralgia and myalgia NEURLOGICAL: No LOC, Sz or syncope, blurred vision dizziness or abnormality.. BEHAVIORAL/PSYCH: Negative. ENDOCRINE: Negative. Physical exam: General Appearance: Alert, cooperative, moderate distress, morbidly obese Neck HEENT: Supple, no lymphadenopathy, no thyroid enlargement, no carotid bruits. Lungs: Decreased breath some bilateral rhonchi positive mild expected wheezes Chest Wall: Decrease with deep inspiration no tenderness and no deformity was found on exam, no costochondral pain or discomfort. Heart: Regular rate and rhythm, S1, S2 normal, no murmur, rub or gallop. Back: Symmetric, no curvature, ROM normal, no CVA tenderness. Abdomen: Soft, non-tender, bowel sounds active all four quadrants, no masses, no organomegaly. Extremities: Significant edema or decreased pulse bilaterally with slight bruising lower extremity. Pulses: 2+ and symmetric. Skin: Skin color, texture, tugor normal, no rashes or lesions. Neurologic: Alert oriented x3 cranial nerves II through XII intact, no motor deficit, no abnormal balance or gait. Assessment/plan: 1 acute respiratory failure: Secondary to congestive heart failure and COPD a long with acute anemia admit patient to the hospital consult pulmonary and cardiology continue diuretics and watch daily weight. Repeat troponin. 2 congestive heart failure exacerbation: Mostly diastolic dysfunction, ejection fraction was 55-60% eye recently patient will be on IV diuretics will consult cardiology continue current management. 3 moderate to severe aortic stenosis with valvular heart disease also had moderate mitral regurgitation and moderate pulmonary hypertension: Patient cont inue with the current management patient is not a candidate for any invasive procedure currently. 4 COPD excessive patient: Patient has been on DuoNeb and Pulmicort Will add Diamox and Solu-Medrol consult pulmonary. 5 aspiration pneumonia: Right side consolidation is still minor patient be on Zosyn IV. 6 recurrent acute gastrointestinal bleed: With significant drop in hemoglobin lately will require blood transfusion continue PPI IV consult gastroenterology. 7 metabolic acidosis and lactic acidosis: Patient will be on hydration blood transfusion and recheck for any active acute infection. 8 type 2 diabetes and insulin: Resume Accu-Chek with sliding scales coverage also resume Lantus and NovoLog. 9 hypothyroidism: Continue levothyroxine at 125 g daily. 10 restless leg syndrome: Patient has been on Requip 2 mg twice a day. 11 hypertension: Blood pressure still mildly elevated continue patient on metoprolol and amlodipine. 12 acute kidney injury with chronic kidney disease: Continue to watch kidney function especially with the current diuretics. 13 recurrent history of angina: With worsening symptom causing acute pulmonary edema might add isosorbide mononitrate and recheck for any worsening symptoms no heart catheter is required this point. 14 GI prophylaxis: Patient be on pantoprazole. 15 DVT prophylaxis: Patient will have early mobilization along with knee-high FILEMON hose. CODE STATUS: Full code. Admit patient to the inpatient service for more than 2 night stay. Impression and plan of care have been directed as dictated by the signing physician. Brandy Villatoro nurse practitioner acting as scribe for signing physician. Objective - Vital Signs Vital signs: Vital Signs Temp 98.7 F 05/10/20 08:00 Pulse 85 05/10/20 07:56 Resp 18 05/10/20 08:00 BP 131/59 05/10/20 08:00 Pulse Ox 100 05/10/20 08:00 Intake & Output 05/09/20 05/10/20 05/10/20 18:59 06:59 18:59 Intake Total 240 Output Total 800 1200 Balance -800 -960 Weight 108.862 kg Intake: Oral 240 Output: Urine 800 1200 Uretheral (Raphael) 800 - Labs CBC & Chem 7: 05/09/20 18:51 05/09/20 18:51 Labs: Abnormal Lab Results - Last 24 Hours (Table) 05/09/20 05/09/20 05/09/20 Range/Units 18:51 18:51 18:51 WBC 15.4 H (3.8-10.6) k/uL RBC 3.30 L (3.80-5.40) m/uL Hgb 7.6 L (11.4-16.0) gm/dL Hct 28.1 L (34.0-46.0) % MCH 23.0 L (25.0-35.0) pg MCHC 26.9 L (31.0-37.0) g/dL RDW 19.4 H (11.5-15.5) % Neutrophils # (Manual) 12.60 H (1.3-7.7) k/uL Metamyelocytes # (Man) 0.15 H (0) k/uL Myelocytes # (Manual) 0.77 H (0) k/uL Nucleated RBCs 1 H (0-0) /100 WBC Sodium 136 L (137-145) mmol/L BUN 28 H (7-17) mg/dL Glucose 321 H (74-99) mg/dL Plasma Lactic Acid Itz 2.4 H* (0.7-2.0) mmol/L Alkaline Phosphatase 140 H (38-126) U/L
[2020-05-10 11:07] LABS: Glucose,Whole Blood >600 mg/dL (75-99)
[2020-05-10] MEDS ORDERED: INSULIN REGULAR BOLUS (FROM DRIP BAG) IV ONE (11:15)
--- NOTE | 2020-05-10 11:47 | P.CRDCN ---
History of Present Illness Consult date: 05/10/20 Consult reason: congestive heart failure Chief complaint: Shortness of breath History of present illness: This is a 65-year-old female with documented history of GI bleed, anemia, COPD, diabetes, hypertension, hyperlipidemia, nonsmoker, sleep apnea, obesity, who presented to the hospital primarily with symptoms of fairly sudden onset of shortness of breath. Her chest x-ray on presentation here showed congestive heart failure, patient had an echo performed in February which revealed an ejection fraction of 55-60%, moderate aortic stenosis, moderate mitral stenosis. EKG on presentation here showed a normal sinus rhythm with nonspecific ST-T wave changes. Blood pressure 144/60 with a heart rate in the 70s, respirations 20, 97% on 1% nonrebreather . White blood cell count 15.4, hemoglobin 7.6, platelet count 291. Sodium 136, potassium 4.4, BUN 28, creatinine 0.9. BNP level 2019, whitman virus rapid testing was negative. Past Medical History Past Medical History: Heart Failure, COPD, GI Bleed, Respiratory Disorder Additional Past Medical History / Comment(s): heart murmur, neuropathy Last Myocardial Infarction Date:: 2018 History of Any Multi-Drug Resistant Organisms: None Reported Date of last positivie culture/infection: 04/2019 MDRO Source:: URINE Past Surgical History: Section, Cholecystectomy, Heart Catheterization, Hysterectomy, Orthopedic Surgery Additional Past Surgical History / Comment(s): Gi cauterization 02/22/2020; heart cath 12/26/2019; cataracts removal, lens placement. Past Anesthesia/Blood Transfusion Reactions: Previous Problems w/ Anesthesia Additional Past Anesthesia/Blood Transfusion Reaction / Comment(s): ALLERGY TO CISATRACURIUM- FACE TURNED RED/SWOLLEN Past Psychological History: No Psychological Hx Reported Smoking Status: Former smoker Past Alcohol Use History: None Reported Past Drug Use History: None Reported - Past Family History Mother Family Medical History: Renal Disease Additional Family Medical History / Comment(s): Mother was on Hemodilaysis Medications and Allergies Home Medications Medication Instructions Recorded Confirmed Type Albuterol Inhaler [Ventolin Hfa 1 - 2 puff INHALATION RT-QID PRN 03/09/20 05/09/20 History Inhaler] Albuterol Nebulized [Ventolin 2.5 mg INHALATION RT-QID PRN 03/09/20 05/09/20 History Nebulized] Atorvastatin [Lipitor] 40 mg PO DAILY 03/09/20 05/09/20 History Budesonide-Formot 160-4.5 Mcg 2 puff INHALATION RT-BID 03/09/20 05/09/20 History [Symbicort 160-4.5 Mcg Inhaler] FLUoxetine HCL 20 mg PO DAILY 03/09/20 05/09/20 History Glimepiride [Amaryl] 2 mg PO DAILY 03/09/20 05/09/20 History Insulin Glargine,Hum.rec.anlog 60 units SQ HS 03/09/20 05/09/20 History [Toujeo Solostar] Isosorbide Mononitrate ER [Imdur] 30 mg PO DAILY 03/09/20 05/09/20 History Levothyroxine Sodium 125 mcg PO DAILY 03/09/20 05/09/20 History Montelukast Sodium [Singulair] 10 mg PO HS 03/09/20 05/09/20 History Nitroglycerin Sl Tabs [Nitrostat] 0.4 mg SUBLINGUAL Q5M PRN 03/09/20 05/09/20 History Potassium Chloride ER [K-Dur 10] 10 meq PO BID 03/09/20 05/09/20 History methocarbamoL [Robaxin] 500 mg PO BID PRN 03/09/20 05/09/20 History rOPINIRole HCL [Requip] 2 mg PO BID 03/09/20 05/09/20 History sitaGLIPtin [Januvia] 100 mg PO DAILY 03/09/20 05/09/20 History Pantoprazole [Protonix] 40 mg PO BID #0 03/17/20 05/09/20 Rx Pregabalin [Lyrica] 200 mg PO BID #6 cap 03/17/20 05/09/20 Rx acetaZOLAMIDE [Diamox] 250 mg PO DAILY #30 tablet 03/17/20 05/09/20 Rx INSULIN ASPART (NovoLOG) [NovoLOG See Protocol SQ ACHS 03/27/20 05/09/20 History (formulary)] Sennosides-Docusate Sodium 1 tab PO BID PRN 03/27/20 05/09/20 History [Senokot-S] Bumetanide [BUMEX] 2 mg PO BID 05/09/20 05/09/20 History Metoprolol Tartrate [Lopressor] 100 mg PO BID 05/09/20 05/09/20 History Spironolactone [Aldactone] 25 mg PO DAILY 05/09/20 05/09/20 History amLODIPine [Norvasc] 5 mg PO DAILY 05/09/20 05/09/20 History Allergies Allergy/AdvReac Type Severity Reaction Status Date / Time cisatracurium [From Nimbex] Allergy Rash/Hives Verified 05/09/20 22:58 Physical Exam Vitals: Vital Signs Temp Pulse Resp BP BP Pulse Ox 05/10/20 11:19 88 05/10/20 08:00 98.7 F 18 131/59 100 05/10/20 07:56 85 05/10/20 07:41 84 05/10/20 04:00 98.1 F 77 20 144/61 97 05/10/20 03:30 80 27 H 144/61 95 05/10/20 03:00 82 23 144/61 95 05/10/20 02:30 80 24 144/61 97 05/10/20 02:00 71 19 144/61 97 05/10/20 01:30 78 20 144/61 94 L 05/10/20 01:00 82 27 H 97/79 05/10/20 00:30 80 22 97/79 94 L 05/10/20 00:00 83 24 92 L 05/09/20 23:30 81 22 95 05/09/20 23:00 81 26 H 97 05/09/20 22:30 81 26 H 120/42 96 05/09/20 22:20 80 18 120/42 05/09/20 22:00 79 16 112/58 100 05/09/20 21:30 76 18 111/49 100 05/09/20 21:00 77 22 144/64 99 05/09/20 20:30 78 23 130/42 100 05/09/20 20:00 80 20 100 05/09/20 19:30 79 17 125/47 100 05/09/20 19:00 80 19 132/44 99 05/09/20 18:49 30 H 05/09/20 18:47 98.4 F 84 18 132/44 95 05/09/20 18:42 61 L Intake and Output 05/09/20 05/10/20 05/10/20 22:59 06:59 14:59 Intake Total 240 Output Total 800 1200 Balance -800 -960 Intake: Oral 240 Output: Urine 800 1200 Uretheral (Raphael) 800 Other: Weight 108.862 kg PHYSICAL EXAMINATION: GENERAL: 65-year-old female quite short of breath at the time of my examination HEENT: Head is atraumatic, normocephalic. Pupils equal, round. Sclera anicteric. Conjunctiva are clear. Mucous membranes of the mouth are moist. Neck is supple. There is elevated jugular venous pressure. No carotid bruit is heard. HEART EXAMINATION: Heart S1, S2 systolic murmur heard . CHEST EXAMINATION: Lungs reveal scattered rhonchi, wheezing, decreased air exchange throughout ABDOMEN: Soft, nontender. Bowel sounds are heard. No organomegaly noted. EXTREMITIES: 2+ peripheral pulses with no evidence of peripheral edema and no calf tenderness noted. NEUROLOGIC patient is awake, alert and oriented 3 . . Results 05/10/20 09:55 05/10/20 09:55 Cardiac Enzymes 05/09/20 05/09/20 05/10/20 Range/Units 18:51 18:51 09:55 AST 22 (14-36) U/L Troponin I <0.012 0.210 H* (0.000-0.034) ng/mL 05/10/20 Range/Units 09:55 AST 21 (14-36) U/L Troponin I (0.000-0.034) ng/mL Coagulation 05/09/20 Range/Units 18:51 PT 9.5 (9.0-12.0) sec APTT 22.0 (22.0-30.0) sec CBC 05/09/20 05/10/20 Range/Units 18:51 09:55 WBC 15.4 H 15.2 H (3.8-10.6) k/uL RBC 3.30 L 3.00 L (3.80-5.40) m/uL Hgb 7.6 L 7.0 L (11.4-16.0) gm/dL Hct 28.1 L 26.6 L (34.0-46.0) % Plt Count 291 245 (150-450) k/uL Comprehensive Metabolic Panel 05/09/20 05/10/20 Range/Units 18:51 09:55 Sodium 136 L 135 L (137-145) mmol/L Potassium 4.4 4.7 (3.5-5.1) mmol/L Chloride 101 97 L (98-107) mmol/L Carbon Dioxide 27 33 H (22-30) mmol/L BUN 28 H 32 H (7-17) mg/dL Creatinine 0.91 0.97 (0.52-1.04) mg/dL Glucose 321 H 580 H* (74-99) mg/dL Calcium 8.7 8.2 L (8.4-10.2) mg/dL AST 22 21 (14-36) U/L ALT 15 17 (4-34) U/L Alkaline Phosphatase 140 H 140 H (38-126) U/L Total Protein 6.7 6.3 (6.3-8.2) g/dL Albumin 3.7 3.6 (3.5-5.0) g/dL Current Medications Generic Name Dose Route Start Last Admin Trade Name Freq PRN Reason Stop Dose Admin Acetazolamide 250 mg 05/10/20 09:00 05/10/20 09:21 Acetazolamide 250 Mg Tab PO 250 mg DAILY SARATH Administration Albuterol Sulfate 2.5 mg 05/10/20 00:00 05/10/20 11:18 Albuterol Nebulized 2.5 Mg/3 Ml INHALATION 2.5 mg RT-QID PRN Administration Shortness Of Breath Amlodipine Besylate 5 mg 05/10/20 09:00 05/10/20 09:21 Amlodipine 5 Mg Tab PO 5 mg DAILY SARATH Administration Atorvastatin Calcium 40 mg 05/10/20 09:00 05/10/20 09:22 Atorvastatin 40 Mg Tab PO 40 mg DAILY SARATH Administration Budesonide/Formoterol Fumarate 2 puff 05/10/20 08:00 05/10/20 07:41 Symbicort 160-4.5 Mcg Inhaler INHALATION 2 puff RT-BID SARATH Administration Bumetanide 2 mg 05/10/20 09:00 05/10/20 09:21 Bumetanide 1 Mg Tab PO 2 mg BID SARATH Administration Fluoxetine HCl 20 mg 05/10/20 09:00 05/10/20 09:20 Fluoxetine Hcl 20 Mg Cap PO 20 mg DAILY SARATH Administration Furosemide 40 mg 05/09/20 21:15 05/10/20 04:53 Furosemide 10 Mg/Ml 4 Ml Vial IV 40 mg Q8H SARATH Administration Sodium Chloride 1,000 mls @ 20 mls/hr 05/09/20 18:46 05/09/20 19:12 Saline 0.9% IV 05/10/20 18:45 20 mls/hr .Q24H STA Administration Sodium Chloride 1,000 mls @ 20 mls/hr 05/09/20 21:15 05/09/20 22:12 Saline 0.9% IV 20 mls/hr .Q24H SARATH Administration Insulin Human Regular 100 unit 101 mls @ 0 mls/hr 05/10/20 11:15 / Sodium Chloride IV .Q0M [facility] Protocol Titrate Isosorbide Mononitrate 30 mg 05/10/20 09:00 05/10/20 09:21 Isosorbide Mononitrate Er 30 Mg Tab.Er.24h PO 30 mg DAILY SARATH Administration Levothyroxine Sodium 125 mcg 05/10/20 06:30 05/10/20 09:21 Levothyroxine 125 Mcg Tab PO 125 mcg DAILY@0630 SARATH Administration Lorazepam 0.5 mg 05/10/20 09:46 Lorazepam 2 Mg/Ml Inj IV Q4HR PRN Anxiety Methocarbamol 500 mg 05/10/20 09:00 Methocarbamol 500 Mg Tab PO BID PRN Muscle Spasm Metoprolol Tartrate 100 mg 05/10/20 09:00 05/10/20 09:21 Metoprolol Tartrate 50 Mg Tab PO 100 mg BID SARATH Administration Montelukast Sodium 10 mg 05/10/20 21:00 Montelukast 10 Mg Tab PO HS SARATH Nitroglycerin 0.4 mg 05/09/20 23:23 Nitroglycerin Sl Tabs 0.4 Mg Tab SUBLINGUAL Q5M PRN Chest Pain Pantoprazole Sodium 40 mg 05/10/20 09:00 05/10/20 09:22 Pantoprazole 40 Mg Tablet PO 40 mg BID SARATH Administration Potassium Chloride 10 meq 05/10/20 09:00 05/10/20 09:22 Potassium Chloride Er 10 Meq Tab.Er.Prt PO 10 meq BID SARATH Administration Pregabalin 200 mg 05/10/20 09:00 05/10/20 09:22 Pregabalin 100 Mg Cap PO 200 mg BID SARATH Administration Ropinirole HCl 2 mg 05/10/20 09:00 05/10/20 09:21 Ropinirole Hcl 1 Mg Tab PO 2 mg BID SARATH Administration Senna/Docusate Sodium 1 each 05/10/20 09:00 Sennosides-Docusate Sodium 1 Each Tab PO BID PRN Constipation Spironolactone 25 mg 05/10/20 09:00 05/10/20 09:22 Spironolactone 25 Mg Tab PO 25 mg DAILY SARATH Administration Intake and Output 05/09/20 05/10/20 05/10/20 22:59 06:59 14:59 Intake Total 240 Output Total 800 1200 Balance -800 -960 Intake: Oral 240 Output: Urine 800 1200 Uretheral (Raphael) 800 Other: Weight 108.862 kg 05/10/20 09:55 05/10/20 09:55 EKG Interpretations (text) EKG shows normal sinus rhythm with nonspecific ST-T wave changes Assessment and Plan Plan: Assessment and plan #1 acute respiratory failure, likely secondary to diastolic congestive heart failure along with COPD exacerbation, possible pneumonia #2 diastolic congestive heart failure acute on chronic #3 moderate to severe aortic stenosis with moderate mitral regurgitation and pulmonary hypertension #4 COPD #5 recent acute GI bleed with significant drop in hemoglobin, requiring blood transfusion #6 type 2 diabetes #7 hypothyroidism #8 hypertension #9 acute on chronic kidney injury Plan We will continue current dose of IV Lasix, continue to monitor intake and output along with daily weights and daily lytes BUN and creatinine. We will also check a pro-calcitonin level. Further recommendations to follow. DNP note has been reviewed, I agree with a documented findings and plan of care. Patient was seen and examined.
[2020-05-10] MEDS: INSULIN REGULAR 100 UNIT in SODIUM CHLORIDE 0.9% 100 ML IV SCH ×2 (11:52→22:56)
[2020-05-10 12:22] LABS: Glucose,Whole Blood >600 mg/dL (75-99)
[2020-05-10 13:22] LABS: Glucose,Whole Blood 548 mg/dL (75-99)
[2020-05-10 14:33] LABS: Glucose,Whole Blood 409 mg/dL (75-99)
[2020-05-10 15:47] LABS: Glucose,Whole Blood 347 mg/dL (75-99)
[2020-05-10 16:36] LABS: Glucose,Whole Blood 309 mg/dL (75-99)
[2020-05-10 17:49] LABS: Glucose,Whole Blood 238 mg/dL (75-99)
[2020-05-10 19:35] LABS: Glucose,Whole Blood 186 mg/dL (75-99)
[2020-05-10] MEDS: MONTELUKAST 10 MG TAB PO SCH (20:36)
[2020-05-10] MEDS ORDERED: INSULIN DETEMIR (LEVEMIR) 100 UNIT/ML SYR SQ SCH (21:00)
[2020-05-10] MEDS: SODIUM CHLORIDE 0.9% 1,000 ML IV SCH (21:39)
[2020-05-10 23:05] LABS: Glucose,Whole Blood 133 mg/dL (75-99)
[2020-05-11 01:06] LABS: Glucose,Whole Blood 106 mg/dL (75-99)
[2020-05-11 02:24] LABS: Glucose,Whole Blood 98 mg/dL (75-99)
[2020-05-11 03:05] LABS: Glucose,Whole Blood 107 mg/dL (75-99)
[2020-05-11 04:47] LABS: Glucose,Whole Blood 99 mg/dL (75-99)
[2020-05-11 05:22] LABS: Glucose,Whole Blood 98 mg/dL (75-99)
[2020-05-11] MEDS: LEVOTHYROXINE 125 MCG TAB PO SCH (06:01)
[2020-05-11] MEDS: FUROSEMIDE 10 MG/ML 4 ML VIAL IV SCH ×4 (06:01→21:32)
[2020-05-11 06:13] LABS: Glucose,Whole Blood 111 mg/dL (75-99)
[2020-05-11 07:21] LABS: Glucose,Whole Blood 139 mg/dL (75-99)
[2020-05-11 07:52] LABS: Albumin 3.4 g/dL (3.5-5.0); Calcium 8.3 mg/dL (8.4-10.2); Potassium 3.6 mmol/L (3.5-5.1); Total Bilirubin 0.5 mg/dL (0.2-1.3); Total Protein 6.3 g/dL (6.3-8.2)
[2020-05-11 08:19] LABS: Anisocytosis Slight; HCT 24.7 % (34.0-46.0); Hypochromasia Marked; MCH 22.6 pg (25.0-35.0); MCHC 26.4 g/dL (31.0-37.0); MCV 85.6 fL (80.0-100.0); Mean Platelet Volume 7.3; Microcytosis Slight; Platelet Count 240 k/uL (150-450); Poikilocytosis Slight; RBC 2.88 m/uL (3.80-5.40); RDW 19.6 % (11.5-15.5); WBC 17.5 k/uL (3.8-10.6)
[2020-05-11 08:21] LABS: HGB 6.5 gm/dL (11.4-16.0)
[2020-05-11] MEDS: SYMBICORT 160-4.5 MCG INHALER INHALATION SCH ×2 (08:30→20:35)
[2020-05-11] MEDS: ALBUTEROL NEBULIZED 2.5 MG/3 ML INHALATION PRN ×3 (08:30→20:33)
[2020-05-11 08:41] LABS: Glucose,Whole Blood 123 mg/dL (75-99)
--- NOTE | 2020-05-11 09:42 | P.PN ---
Subjective Progress Note Date: 05/11/20 This is a 65-year-old female with documented history of GI bleed, anemia, COPD, diabetes, hypertension, hyperlipidemia, nonsmoker, sleep apnea, obesity, who presented to the hospital primarily with symptoms of fairly sudden onset of shortness of breath. Her chest x-ray on presentation here showed congestive heart failure, patient had an echo performed in February which revealed an ejection fraction of 55-60%, moderate aortic stenosis, moderate mitral stenosis. EKG on presentation here showed a normal sinus rhythm with nonspecific ST-T wave changes. Blood pressure 144/60 with a heart rate in the 70s, respirations 20, 97% on 1% nonrebreather . White blood cell count 15.4, hemoglobin 7.6, platelet count 291. Sodium 136, potassium 4.4, BUN 28, creatinine 0.9. BNP level 2019, whitman virus rapid testing was negative. 05/11/2020 Patient seen and examined this morning, diuresing well overnight on IV Lasix. Blood pressure 116/60 with a heart rate in the 80s, 94% on 4 L of oxygen. White blood cell count 17.5, no hemoglobin documented, yesterday's hemoglobin was 7.0 platelet count 240, hematocrit 24.7, sodium 140, potassium 3.6, BUN 39, creatinine 1.2. Objective - Vital Signs Vital signs: Vital Signs Temp 98.5 F 05/10/20 20:00 Pulse 88 05/11/20 08:45 Resp 24 05/11/20 04:00 BP 116/55 05/11/20 04:00 Pulse Ox 94 L 05/11/20 04:00 Intake & Output 05/10/20 05/11/20 05/11/20 18:59 06:59 18:59 Intake Total 816.523 506.699 0 Output Total 2099 1949 Balance -1283.477 -1443.301 0 Weight 108.862 kg 113 kg Intake: Intake, IV Titration 96.523 6.699 0 Amount Insulin Regular 100 unit 96.523 6.699 0 In Sodium Chloride 0.9% 100 ml @ Titrate IV .Q0M [facility] Rx#:[id number] Oral 720 500 Output: Urine 2099 1949 Other: Voiding Method Indwelling Catheter Indwelling Catheter - Exam PHYSICAL EXAMINATION: GENERAL: 65-year-old female quite short of breath at the time of my examination HEENT: Head is atraumatic, normocephalic. Pupils equal, round. Sclera anicteric. Conjunctiva are clear. Mucous membranes of the mouth are moist. Neck is supple. There is elevated jugular venous pressure. No carotid bruit is heard. HEART EXAMINATION: Heart S1, S2 systolic murmur heard . CHEST EXAMINATION: Lungs reveal scattered rhonchi, wheezing, decreased air exchange throughout ABDOMEN: Soft, nontender. Bowel sounds are heard. No organomegaly noted. EXTREMITIES: 2+ peripheral pulses with no evidence of peripheral edema and no calf tenderness noted. NEUROLOGIC patient is awake, alert and oriented 3 . - Labs CBC & Chem 7: 05/11/20 07:10 05/11/20 07:10 Labs: Abnormal Lab Results - Last 24 Hours (Table) 05/10/20 05/10/20 05/10/20 Range/Units 09:55 09:55 09:55 WBC 15.2 H (3.8-10.6) k/uL RBC 3.00 L (3.80-5.40) m/uL Hgb 7.0 L (11.4-16.0) gm/dL Hct 26.6 L (34.0-46.0) % MCH 23.5 L (25.0-35.0) pg MCHC 26.4 L (31.0-37.0) g/dL RDW 19.5 H (11.5-15.5) % Neutrophils # 13.7 H (1.3-7.7) k/uL Lymphocytes # 0.6 L (1.0-4.8) k/uL Sodium 135 L (137-145) mmol/L Chloride 97 L (98-107) mmol/L Carbon Dioxide 33 H (22-30) mmol/L BUN 32 H (7-17) mg/dL Creatinine (0.52-1.04) mg/dL Glucose 580 H* (74-99) mg/dL POC Glucose (mg/dL) (75-99) mg/dL Calcium 8.2 L (8.4-10.2) mg/dL Alkaline Phosphatase 140 H (38-126) U/L Troponin I 0.210 H* (0.000-0.034) ng/mL Albumin (3.5-5.0) g/dL 05/10/20 05/10/20 05/10/20 Range/Units 11:05 12:12 13:20 WBC (3.8-10.6) k/uL RBC (3.80-5.40) m/uL Hgb (11.4-16.0) gm/dL Hct (34.0-46.0) % MCH (25.0-35.0) pg MCHC (31.0-37.0) g/dL RDW (11.5-15.5) % Neutrophils # (1.3-7.7) k/uL Lymphocytes # (1.0-4.8) k/uL Sodium (137-145) mmol/L Chloride (98-107) mmol/L Carbon Dioxide (22-30) mmol/L BUN (7-17) mg/dL Creatinine (0.52-1.04) mg/dL Glucose (74-99) mg/dL POC Glucose (mg/dL) >600 H >600 H 548 H (75-99) mg/dL Calcium (8.4-10.2) mg/dL Alkaline Phosphatase (38-126) U/L Troponin I (0.000-0.034) ng/mL Albumin (3.5-5.0) g/dL 05/10/20 05/10/20 05/10/20 Range/Units 14:32 15:36 16:33 WBC (3.8-10.6) k/uL RBC (3.80-5.40) m/uL Hgb (11.4-16.0) gm/dL Hct (34.0-46.0) % MCH (25.0-35.0) pg MCHC (31.0-37.0) g/dL RDW (11.5-15.5) % Neutrophils # (1.3-7.7) k/uL Lymphocytes # (1.0-4.8) k/uL Sodium (137-145) mmol/L Chloride (98-107) mmol/L Carbon Dioxide (22-30) mmol/L BUN (7-17) mg/dL Creatinine (0.52-1.04) mg/dL Glucose (74-99) mg/dL POC Glucose (mg/dL) 409 H 347 H 309 H (75-99) mg/dL Calcium (8.4-10.2) mg/dL Alkaline Phosphatase (38-126) U/L Troponin I (0.000-0.034) ng/mL Albumin (3.5-5.0) g/dL 05/10/20 05/10/20 05/10/20 Range/Units 17:47 19:33 22:53 WBC (3.8-10.6) k/uL RBC (3.80-5.40) m/uL Hgb (11.4-16.0) gm/dL Hct (34.0-46.0) % MCH (25.0-35.0) pg MCHC (31.0-37.0) g/dL RDW (11.5-15.5) % Neutrophils # (1.3-7.7) k/uL Lymphocytes # (1.0-4.8) k/uL Sodium (137-145) mmol/L Chloride (98-107) mmol/L Carbon Dioxide (22-30) mmol/L BUN (7-17) mg/dL Creatinine (0.52-1.04) mg/dL Glucose (74-99) mg/dL POC Glucose (mg/dL) 238 H 186 H 133 H (75-99) mg/dL Calcium (8.4-10.2) mg/dL Alkaline Phosphatase (38-126) U/L Troponin I (0.000-0.034) ng/mL Albumin (3.5-5.0) g/dL 05/11/20 05/11/20 05/11/20 Range/Units 01:05 03:01 06:12 WBC (3.8-10.6) k/uL RBC (3.80-5.40) m/uL Hgb (11.4-16.0) gm/dL Hct (34.0-46.0) % MCH (25.0-35.0) pg MCHC (31.0-37.0) g/dL RDW (11.5-15.5) % Neutrophils # (1.3-7.7) k/uL Lymphocytes # (1.0-4.8) k/uL Sodium (137-145) mmol/L Chloride (98-107) mmol/L Carbon Dioxide (22-30) mmol/L BUN (7-17) mg/dL Creatinine (0.52-1.04) mg/dL Glucose (74-99) mg/dL POC Glucose (mg/dL) 106 H 107 H 111 H (75-99) mg/dL Calcium (8.4-10.2) mg/dL Alkaline Phosphatase (38-126) U/L Troponin I (0.000-0.034) ng/mL Albumin (3.5-5.0) g/dL 05/11/20 05/11/20 05/11/20 Range/Units 07:10 07:10 07:19 WBC 17.5 H (3.8-10.6) k/uL RBC 2.88 L (3.80-5.40) m/uL Hgb (11.4-16.0) gm/dL Hct 24.7 L (34.0-46.0) % MCH 22.6 L (25.0-35.0) pg MCHC 26.4 L (31.0-37.0) g/dL RDW 19.6 H (11.5-15.5) % Neutrophils # (1.3-7.7) k/uL Lymphocytes # (1.0-4.8) k/uL Sodium (137-145) mmol/L Chloride 96 L (98-107) mmol/L Carbon Dioxide 40 H (22-30) mmol/L BUN 39 H (7-17) mg/dL Creatinine 1.21 H (0.52-1.04) mg/dL Glucose 122 H (74-99) mg/dL POC Glucose (mg/dL) 139 H (75-99) mg/dL Calcium 8.3 L (8.4-10.2) mg/dL Alkaline Phosphatase (38-126) U/L Troponin I (0.000-0.034) ng/mL Albumin 3.4 L (3.5-5.0) g/dL 05/11/20 Range/Units 08:30 WBC (3.8-10.6) k/uL RBC (3.80-5.40) m/uL Hgb (11.4-16.0) gm/dL Hct (34.0-46.0) % MCH (25.0-35.0) pg MCHC (31.0-37.0) g/dL RDW (11.5-15.5) % Neutrophils # (1.3-7.7) k/uL Lymphocytes # (1.0-4.8) k/uL Sodium (137-145) mmol/L Chloride (98-107) mmol/L Carbon Dioxide (22-30) mmol/L BUN (7-17) mg/dL Creatinine (0.52-1.04) mg/dL Glucose (74-99) mg/dL POC Glucose (mg/dL) 123 H (75-99) mg/dL Calcium (8.4-10.2) mg/dL Alkaline Phosphatase (38-126) U/L Troponin I (0.000-0.034) ng/mL Albumin (3.5-5.0) g/dL Assessment and Plan Plan: Assessment and plan #1 acute respiratory failure, likely secondary to diastolic congestive heart failure along with COPD exacerbation, possible pneumonia #2 diastolic congestive heart failure acute on chronic #3 moderate to severe aortic stenosis with moderate mitral regurgitation and pulmonary hypertension #4 COPD #5 recent acute GI bleed with significant drop in hemoglobin, requiring blood transfusion #6 type 2 diabetes #7 hypothyroidism #8 hypertension #9 acute on chronic kidney injury Plan We will continue current dose of IV Lasix, continue to monitor intake and output along with daily weights and daily lytes BUN and creatinine. Further recommendations to follow. DNP note has been reviewed, I agree with a documented findings and plan of care. Patient was seen and examined.
[2020-05-11] MEDS: POTASSIUM CHLORIDE ER 10 MEQ TAB.ER.PRT PO SCH ×2 (09:49→20:23)
[2020-05-11] MEDS: FLUoxetine HCL 20 MG CAP PO SCH (09:49)
[2020-05-11] MEDS: PREGABALIN 100 MG CAP PO SCH ×2 (09:49→20:22)
[2020-05-11] MEDS: ISOSORBIDE MONONITRATE ER 30 MG TAB.ER.24H PO SCH (09:49)
[2020-05-11] MEDS: BUMETANIDE 1 MG TAB PO SCH ×2 (09:49→20:23)
[2020-05-11] MEDS: acetaZOLAMIDE 250 MG TAB PO SCH (09:50)
[2020-05-11] MEDS: ATORVASTATIN 40 MG TAB PO SCH (09:50)
[2020-05-11] MEDS: SPIRONOLACTONE 25 MG TAB PO SCH (09:50)
[2020-05-11] MEDS: PANTOPRAZOLE 40 MG TABLET PO SCH ×2 (09:50→20:23)
[2020-05-11] MEDS: METOPROLOL TARTRATE 50 MG TAB PO SCH ×2 (09:50→20:23)
[2020-05-11] MEDS: amLODIPine 5 MG TAB PO SCH (09:50)
[2020-05-11] MEDS: SODIUM FERRIC GLUCONAT-SUCROSE 125 MG in SODIUM CHLORIDE 0.9% 100 ML IVPB SCH (10:07)
[2020-05-11 10:23] LABS: Glucose,Whole Blood 215 mg/dL (75-99)
[2020-05-11 10:29] LABS: Lymphocytes # (M) 1.05 k/uL (1.0-4.8); Mixed Population RBC Present; Neutrophils # (M) 15.75 k/uL (1.3-7.7); Neutrophils % (M) 90 %; Nucleated Red Blood Cells 0 /100 WBC (0-0); Polychromasia Present; Total Cells Counted 100
--- NOTE | 2020-05-11 10:56 | P.PN ---
Subjective Progress Note Date: 05/11/20 65-year-old mildly overweight female one of my office patient with known for the last few month with multi medical problem was known to have history of recurrent gastrointestinal bleed with multi blood transfusion and multi admission to the hospital with multi EGD and GI workup was the hospital last 03/27/2020 for worsening respiratory failure with worsening dyspnea and shortness of breath found to have acute anemia with worsening chest pain or worsening heart failure at the time. 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 Patient was with her in the emergency room the day before and was doing well herself. She developed to have sudden onset of worsening dyspnea and shortness of breath with worsening PND and orthopnea felt was gasping for air. Patient ask her to drive her to [facility] have to wait to she become in extreme respiratory distress 911 was called and patient was transported the rest of the way up by EMS at the time was any seen in [facility] chest x-ray showed cephalization and pulmonary edema. Patient was started on IV furosemide she started on diuretics as well will be admitted to the hospital have cardiology seen her CK and troponin first one negative hemoglobin is down 1 g from last week at 7.7. Kidney function still holding well at this point. 05/10: Patient is found to be sitting up in a chair in moderate distress with a BiPAP machine in place. Patient states that she is able to breathe a little bit better. Continues to have increased anxiety and shortness of breath. Patient remains afebrile, heart rate 18 labored, blood pressure 131/59, pulse oxing 100% on BiPAP. WCC 50.4, hemoglobin 7.6, potassium 4.4, BUN 28, creatinine 0.91, covid 19 negative. Troponin less than 0.012 05/11: Patient is found sitting up in bed in no acute distress. Patient is currently on 4 L via nasal cannula pulse oxing 94%. Patient has been afebrile, heart rate 71, blood pressure 110/63 with respirations 28 normal and nonlabored. Patient is still experiencing some shortness of breath with activity. Hemoglobin dropped to 6.5 today she'll have [address] Samayoa at bedside discussing possible scope on Tuesday. Patient denies any black tarry stool or blood in the stool. Patient has no nausea or vomiting. Review of systems: CONSTITUTIONAL: Morbidly obese in acute respiratory distress. EYES: No icterus sclerae, no conjunctivitis. EARS, NOSE, MOUTH, THROAT, and FACE: No sore throat, lymphadenopathy, carotid bruits or deformity. RESPIRATORY: Positive shortness of breath cough wheezes CARDIOVASCULAR: Positive PND orthopnea and palpitation with worsening dyspnea with minimal exertion. GASTROINTESTINAL: No Abd pain, Nausea or vomiting, no Diarrhea or constipation, still have significant change in bowel habits or tarry stool with no bright red blood per rectum. GENITOURINARY: Negative for Hematuria or UTI, no kidney stones. INTEGUMENT/BREAST: Generalized arthralgia and myalgia. HEMATOLOGIC/LYMPHATIC: Negative for bleed or purpura. MUSCULOSKELTAL: Generalized arthralgia and myalgia NEURLOGICAL: No LOC, Sz or syncope, blurred vision dizziness or abnormality.. BEHAVIORAL/PSYCH: Negative. ENDOCRINE: Negative. Physical exam: General Appearance: Alert, cooperative, moderate distress, morbidly obese Neck HEENT: Supple, no lymphadenopathy, no thyroid enlargement, no carotid bruits. Lungs: Decreased breath some bilateral rhonchi positive mild expected wheezes Chest Wall: Decrease with deep inspiration no tenderness and no deformity was found on exam, no costochondral pain or discomfort. Heart: Regular rate and rhythm, S1, S2 normal, no murmur, rub or gallop. Back: Symmetric, no curvature, ROM normal, no CVA tenderness. Abdomen: Soft, non-tender, bowel sounds active all four quadrants, no masses, no organomegaly. Extremities: Significant edema or decreased pulse bilaterally with slight bruising lower extremity. Pulses: 2+ and symmetric. Skin: Skin color, texture, tugor normal, no rashes or lesions. Neurologic: Alert oriented x3 cranial nerves II through XII intact, no motor deficit, no abnormal balance or gait. Assessment/plan: 1 acute respiratory failure: Secondary to congestive heart failure and COPD along with acute anemia admit patient to the hospital consult pulmonary and cardiology continue diuretics and watch daily weight. Repeat troponin 0.210 2 congestive heart failure exacerbation: Mostly diastolic dysfunction, ejection fraction was 55-60% eye recently patient will be on IV diuretics will consult cardiology continue current management. 3 moderate to severe aortic stenosis with valvular heart disease also had moderate mitral regurgitation and moderate pulmonary hypertension: Patient continue with the current management patient is not a candidate for any invasive procedure currently. 4 COPD excessive patient: Patient has been on DuoNeb and Pulmicort Will add Diamox and Solu-Medrol consult pulmonary. 5 aspiration pneumonia: Right side consolidation is still minor patient be on Zosyn IV. 6 recurrent acute gastrointestinal bleed: With significant drop in hemoglobin lately will require blood transfusion continue PPI IV consult gastroenterology. Probable scope on Tuesday. 7 metabolic acidosis and lactic acidosis: Patient will be on hydration blood transfusion and recheck for any active acute infection. 8 type 2 diabetes and insulin: Resume Accu-Chek with sliding scales coverage also resume Lantus and NovoLog. 9 hypothyroidism: Continue levothyroxine at 125 g daily. 10 restless leg syndrome: Patient has been on Requip 2 mg twice a day. 11 hypertension: Blood pressure still mildly elevated continue patient on metoprolol and amlodipine. 12 acute kidney injury with chronic kidney disease: Continue to watch kidney function especially with the current diuretics. 13 recurrent history of angina: With worsening symptom causing acute pulmonary edema might add isosorbide mononitrate and recheck for any worsening symptoms no heart catheter is required this point. 14 GI prophylaxis: Patient be on pantoprazole. 15 DVT prophylaxis: Patient will have early mobilization along with knee-high FILEMON hose. CODE STATUS: Full code. Admit patient to the inpatient service for more than 2 night stay. Impression and plan of care have been directed as dictated by the signing physician. Brandy Villatoro nurse practitioner acting as scribe for signing physician. Objective - Vital Signs Vital signs: Vital Signs Temp 98.1 F 05/11/20 08:00 Pulse 88 05/11/20 08:45 Resp 20 05/11/20 08:00 BP 110/63 05/11/20 08:00 Pulse Ox 94 L 05/11/20 08:00 Intake & Output 05/10/20 05/11/20 05/11/20 18:59 06:59 18:59 Intake Total 816.523 506.699 0 Output Total 2100 1950 Balance -1283.477 -1443.301 0 Weight 108.862 kg 113 kg Intake: Intake, IV Titration 96.523 6.699 0 Amount Insulin Regular 100 unit 96.523 6.699 0 In Sodium Chloride 0.9% 100 ml @ Titrate IV .Q0M [facility] Rx#:[id number] Oral 720 500 Output: Urine 2100 1950 Other: Voiding Method Indwelling Catheter Indwelling Catheter - Labs CBC & Chem 7: 05/11/20 07:10 05/11/20 07:10 Labs: Abnormal Lab Results - Last 24 Hours (Table) 05/10/20 05/10/20 05/10/20 Range/Units 09:55 11:05 12:12 WBC (3.8-10.6) k/uL RBC (3.80-5.40) m/uL Hgb (11.4-16.0) gm/dL Hct (34.0-46.0) % MCH (25.0-35.0) pg MCHC (31.0-37.0) g/dL RDW (11.5-15.5) % Neutrophils # (Manual) (1.3-7.7) k/uL Chloride (98-107) mmol/L Carbon Dioxide (22-30) mmol/L BUN (7-17) mg/dL Creatinine (0.52-1.04) mg/dL Glucose (74-99) mg/dL POC Glucose (mg/dL) >600 H >600 H (75-99) mg/dL Calcium (8.4-10.2) mg/dL Troponin I 0.210 H* (0.000-0.034) ng/mL Albumin (3.5-5.0) g/dL Crossmatch 05/10/20 05/10/20 05/10/20 Range/Units 13:20 14:32 15:36 WBC (3.8-10.6) k/uL RBC (3.80-5.40) m/uL Hgb (11.4-16.0) gm/dL Hct (34.0-46.0) % MCH (25.0-35.0) pg MCHC (31.0-37.0) g/dL RDW (11.5-15.5) % Neutrophils # (Manual) (1.3-7.7) k/uL Chloride (98-107) mmol/L Carbon Dioxide (22-30) mmol/L BUN (7-17) mg/dL Creatinine (0.52-1.04) mg/dL Glucose (74-99) mg/dL POC Glucose (mg/dL) 548 H 409 H 347 H (75-99) mg/dL Calcium (8.4-10.2) mg/dL Troponin I (0.000-0.034) ng/mL Albumin (3.5-5.0) g/dL Crossmatch 05/10/20 05/10/20 05/10/20 Range/Units 16:33 17:47 19:33 WBC (3.8-10.6) k/uL RBC (3.80-5.40) m/uL Hgb (11.4-16.0) gm/dL Hct (34.0-46.0) % MCH (25.0-35.0) pg MCHC (31.0-37.0) g/dL RDW (11.5-15.5) % Neutrophils # (Manual) (1.3-7.7) k/uL Chloride (98-107) mmol/L Carbon Dioxide (22-30) mmol/L BUN (7-17) mg/dL Creatinine (0.52-1.04) mg/dL Glucose (74-99) mg/dL POC Glucose (mg/dL) 309 H 238 H 186 H (75-99) mg/dL Calcium (8.4-10.2) mg/dL Troponin I (0.000-0.034) ng/mL Albumin (3.5-5.0) g/dL Crossmatch 05/10/20 05/11/20 05/11/20 Range/Units 22:53 01:05 03:01 WBC (3.8-10.6) k/uL RBC (3.80-5.40) m/uL Hgb (11.4-16.0) gm/dL Hct (34.0-46.0) % MCH (25.0-35.0) pg MCHC (31.0-37.0) g/dL RDW (11.5-15.5) % Neutrophils # (Manual) (1.3-7.7) k/uL Chloride (98-107) mmol/L Carbon Dioxide (22-30) mmol/L BUN (7-17) mg/dL Creatinine (0.52-1.04) mg/dL Glucose (74-99) mg/dL POC Glucose (mg/dL) 133 H 106 H 107 H (75-99) mg/dL Calcium (8.4-10.2) mg/dL Troponin I (0.000-0.034) ng/mL Albumin (3.5-5.0) g/dL Crossmatch 05/11/20 05/11/20 05/11/20 Range/Units 06:12 07:10 07:10 WBC 17.5 H (3.8-10.6) k/uL RBC 2.88 L (3.80-5.40) m/uL Hgb 6.5 L* (11.4-16.0) gm/dL Hct 24.7 L (34.0-46.0) % MCH 22.6 L (25.0-35.0) pg MCHC 26.4 L (31.0-37.0) g/dL RDW 19.6 H (11.5-15.5) % Neutrophils # (Manual) 15.75 H (1.3-7.7) k/uL Chloride 96 L (98-107) mmol/L Carbon Dioxide 40 H (22-30) mmol/L BUN 39 H (7-17) mg/dL Creatinine 1.21 H (0.52-1.04) mg/dL Glucose 122 H (74-99) mg/dL POC Glucose (mg/dL) 111 H (75-99) mg/dL Calcium 8.3 L (8.4-10.2) mg/dL Troponin I (0.000-0.034) ng/mL Albumin 3.4 L (3.5-5.0) g/dL Crossmatch 05/11/20 05/11/20 05/11/20 Range/Units 07:19 08:30 09:04 WBC (3.8-10.6) k/uL RBC (3.80-5.40) m/uL Hgb (11.4-16.0) gm/dL Hct (34.0-46.0) % MCH (25.0-35.0) pg MCHC (31.0-37.0) g/dL RDW (11.5-15.5) % Neutrophils # (Manual) (1.3-7.7) k/uL Chloride (98-107) mmol/L Carbon Dioxide (22-30) mmol/L BUN (7-17) mg/dL Creatinine (0.52-1.04) mg/dL Glucose (74-99) mg/dL POC Glucose (mg/dL) 139 H 123 H (75-99) mg/dL Calcium (8.4-10.2) mg/dL Troponin I (0.000-0.034) ng/mL Albumin (3.5-5.0) g/dL Crossmatch See Detail 05/11/20 Range/Units 10:12 WBC (3.8-10.6) k/uL RBC (3.80-5.40) m/uL Hgb (11.4-16.0) gm/dL Hct (34.0-46.0) % MCH (25.0-35.0) pg MCHC (31.0-37.0) g/dL RDW (11.5-15.5) % Neutrophils # (Manual) (1.3-7.7) k/uL Chloride (98-107) mmol/L Carbon Dioxide (22-30) mmol/L BUN (7-17) mg/dL Creatinine (0.52-1.04) mg/dL Glucose (74-99) mg/dL POC Glucose (mg/dL) 215 H (75-99) mg/dL Calcium (8.4-10.2) mg/dL Troponin I (0.000-0.034) ng/mL Albumin (3.5-5.0) g/dL Crossmatch
--- NOTE | 2020-05-11 11:27 | CONS ---
CONSULTATION DATE OF SERVICE: May 11, 2020. REQUESTING PHYSICIAN: Dr. Deras. REASON FOR CONSULTATION: Anemia. HISTORY OF PRESENT ILLNESS: The patient is a 65-year-old pleasant white female admitted to hospital with exacerbation of congestive heart failure and acute pulmonary edema. The patient had a prolonged hospitalization in February as well as in March with exacerbation of congestive heart failure and during that hospitalization she also had a GI bleed requiring 3 units of blood transfusion. The patient has been having intermittent GI bleed for the last one year duration. Apparently she did have an EGD and colonoscopy done in [place] in May of 2019 that showed some diverticulosis and gastritis. Subsequently in February, she had active GI bleed. She had a small bowel capsule endoscopy done in [facility] by Dr. Nieves and according to the patient was told she had small-bowel active bleeding. 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 Following that, the patient did well for 4 weeks. On an outpatient basis, hemoglobin was stable at 9 g/dL. However, the last one week she dropped hemoglobin by 1 g but denies any active GI bleed. She is not on any anticoagulation. This morning hemoglobin was reported as 7. She is going to be receiving 2 units of PRBC transfusion. She denies any abdominal pain. She has some nausea but no emesis. Continues to have shortness of breath. PAST MEDICAL HISTORY: Significant for congestive heart failure, recurrent GI bleed. History of COPD. PAST SURGICAL HISTORY: Cholecystectomy, , cardiac catheterization, hysterectomy, multiple EGD and colonoscopies. MEDICATIONS: Medications at home include Symbicort, Lipitor, albuterol, Imdur, insulin, Glargine, Amaryl, fluoxetine, bumetanide, Lopressor, levothyroxine, Nitrostat, Norvasc, Robaxin, Requip, Januvia, Protonix, Lyrica, Diamox, NovoLog, Senokot, Zithromax, Levemir, prednisone. ALLERGIES: NIMBEX. SOCIAL HISTORY: Remote history of smoking. No alcohol use. FAMILY HISTORY: Mother had renal disease. REVIEW OF SYSTEMS: CARDIOPULMONARY: She does complain of shortness of breath but denies any chest pain. NEUROLOGY unremarkable. PSYCHIATRIC unremarkable. ENT/VISION: Unremarkable. CONSTITUTIONAL: Weight gain of 10 pounds. No fever, chills, night sweats. HEMATOLOGY: Unremarkable other than recurrent anemia but no active gastrointestinal bleed. GI as mentioned above. ENDOCRINE: History of hypothyroidism. PHYSICAL EXAMINATION: She appears comfortable. No apparent distress. VITAL SIGNS: Stable. Blood pressure is 112/55, pulse rate 70, temperature 98. HEENT examination unremarkable. Conjunctivae pink. Sclerae anicteric. Oral cavity no lesions. NECK no JVD or lymph node enlargement. HEART: Regular rate and rhythm. CHEST: Decreased breath sounds. ABDOMEN: Soft. Bowel sounds are positive. No organomegaly. EXTREMITIES: No pedal edema. SKIN no rashes. NEUROLOGIC: Alert and oriented x3. No focal deficits. LABS: From today WBC 17.5, hemoglobin is not reported yet, but hematocrit is 24. Yesterday, hemoglobin was 7 g/dL. BUN and creatinine are 39 and 1.1 respectively, so glucose was 580 yesterday, today 122, BUN 39, creatinine 1.21. ALT, AST, T-bilirubin, alkaline phosphatase are normal. IMPRESSION: 1. Recurrent anemia secondary to subacute gastrointestinal blood loss. The patient was investigated extensively over the last one year. EGD and colonoscopy in [facility] in May of 2019 showed gastritis and diverticulosis. Upper endoscopy/small bowel capsule endoscopy in February of this year at [facility] showed some active bleeding in the small bowel. 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 Now has recurrent anemia with gradual drop in hemoglobin over the last one week. Clinically, no evidence of active bleeding. 2. Uncontrolled blood sugars. Uncontrolled diabetes mellitus. 3. Exacerbation of congestive heart failure with pulmonary edema on diuretics. 4. Longstanding history of diabetes mellitus. 5. Acute kidney injury. RECOMMENDATIONS: 1. Agree with PRBC transfusion. 2. Await CBC results from today. 3. Continue with Protonix 40 mg daily. 4. Discussed with Dr. Deras and we will plan on a repeat upper endoscopy/enteroscopy on Tuesday once the cardiopulmonary status stabilizes. 5. In the meantime, we will monitor CBC and transfuse her as needed. Thank you for this consultation. MMODL / IJN: [id number] /
[2020-05-11 12:05] LABS: Hemoglobin A1C 6.6 % (4.0-6.0)
[2020-05-11] MEDS: INSULIN ASPART (NovoLOG) 100 UNIT/ML VIAL SQ SCH ×3 (12:16→21:33)
[2020-05-11 12:17] LABS: Glucose,Whole Blood 232 mg/dL (75-99)
[2020-05-11 17:29] LABS: Glucose,Whole Blood 240 mg/dL (75-99)
[2020-05-11] MEDS: MONTELUKAST 10 MG TAB PO SCH (20:22)
[2020-05-11 20:29] LABS: Glucose,Whole Blood 499 mg/dL (75-99)
[2020-05-11] MEDS ORDERED: INSULIN ASPART (NovoLOG) 100 UNIT/ML VIAL SQ ONE (20:50)
[2020-05-11] MEDS: INSULIN DETEMIR (LEVEMIR) 100 UNIT/ML SYR SQ SCH (21:32)
[2020-05-11] MEDS: SODIUM CHLORIDE 0.9% 1,000 ML IV SCH (21:33)
[2020-05-12 03:33] LABS: Anisocytosis Slight; HCT 26.1 % (34.0-46.0); HGB 7.5 gm/dL (11.4-16.0); Hypochromasia Marked; MCH 24.5 pg (25.0-35.0); MCHC 28.9 g/dL (31.0-37.0); MCV 84.8 fL (80.0-100.0); Mean Platelet Volume 7.1; Microcytosis Slight; Platelet Count 185 k/uL (150-450); Poikilocytosis Moderate; RBC 3.08 m/uL (3.80-5.40); RDW 19.8 % (11.5-15.5); WBC 13.9 k/uL (3.8-10.6)
[2020-05-12 06:36] LABS: Glucose,Whole Blood 172 mg/dL (75-99)
[2020-05-12] MEDS: LEVOTHYROXINE 125 MCG TAB PO SCH (06:47)
[2020-05-12] MEDS: FUROSEMIDE 10 MG/ML 4 ML VIAL IV SCH ×3 (06:47→21:00)
[2020-05-12] MEDS: INSULIN ASPART (NovoLOG) 100 UNIT/ML VIAL SQ SCH ×4 (06:48→20:59)
[2020-05-12 07:58] LABS: Albumin 3.4 g/dL (3.5-5.0); Calcium 8.5 mg/dL (8.4-10.2); Total Bilirubin 0.5 mg/dL (0.2-1.3); Total Protein 6.3 g/dL (6.3-8.2)
[2020-05-12 08:04] LABS: Anisocytosis Slight; HCT 29.2 % (34.0-46.0); HGB 8.4 gm/dL (11.4-16.0); Hypochromasia Marked; MCH 24.2 pg (25.0-35.0); MCHC 28.7 g/dL (31.0-37.0); MCV 84.4 fL (80.0-100.0); Mean Platelet Volume 8.4; Microcytosis Slight; Platelet Count 212 k/uL (150-450); Poikilocytosis Moderate; RBC 3.46 m/uL (3.80-5.40); RDW 19.7 % (11.5-15.5); WBC 15.2 k/uL (3.8-10.6)
[2020-05-12] MEDS: ALBUTEROL NEBULIZED 2.5 MG/3 ML INHALATION PRN (09:18)
[2020-05-12] MEDS: SYMBICORT 160-4.5 MCG INHALER INHALATION SCH ×2 (09:18→20:04)
[2020-05-12 09:38] LABS: Eosinophils # (M) 0.15 k/uL (0-0.7); Lymphocytes # (M) 2.58 k/uL (1.0-4.8); Monocytes # (M) 1.37 k/uL (0-1.0); Neutrophils % (M) 73 %; Nucleated Red Blood Cells 0 /100 WBC (0-0); Total Cells Counted 100
[2020-05-12 09:39] LABS: Polychromasia Present; Stomatocytes Present
[2020-05-12] MEDS: ATORVASTATIN 40 MG TAB PO SCH (09:47)
[2020-05-12] MEDS: SODIUM FERRIC GLUCONAT-SUCROSE 125 MG in SODIUM CHLORIDE 0.9% 100 ML IVPB SCH (09:47)
[2020-05-12] MEDS: METOPROLOL TARTRATE 50 MG TAB PO SCH ×2 (09:48→21:01)
[2020-05-12] MEDS: ISOSORBIDE MONONITRATE ER 30 MG TAB.ER.24H PO SCH (09:48)
[2020-05-12] MEDS: amLODIPine 5 MG TAB PO SCH (09:48)
[2020-05-12] MEDS: FLUoxetine HCL 20 MG CAP PO SCH (09:48)
[2020-05-12] MEDS: SPIRONOLACTONE 25 MG TAB PO SCH (09:48)
[2020-05-12] MEDS: BUMETANIDE 1 MG TAB PO SCH ×2 (09:48→23:07)
[2020-05-12] MEDS: acetaZOLAMIDE 250 MG TAB PO SCH (09:49)
[2020-05-12] MEDS: PANTOPRAZOLE 40 MG TABLET PO SCH ×2 (09:49→21:01)
[2020-05-12] MEDS: POTASSIUM CHLORIDE ER 10 MEQ TAB.ER.PRT PO SCH ×2 (09:49→21:00)
[2020-05-12] MEDS: PREGABALIN 100 MG CAP PO SCH ×2 (09:49→21:00)
--- NOTE | 2020-05-12 11:53 | P.PN ---
Subjective Progress Note Date: 05/12/20 HISTORY OF PRESENT ILLNESS: Patient examined this morning at the bedside. She denies chest pain or pressure. She reports shortness of breath with conversation and also with exertion. She reports improvement in lower extremity edema. She remains on IV Lasix 40 mg every 8 hours. Creatinine 1.10 today. Fluid balance over the last 24 hours is -2 L. Patient states she is having an EGD tomorrow. PHYSICAL EXAM: VITAL SIGNS: Reviewed. GENERAL: Well-developed in no acute distress. NECK: Supple. No JVD or thyromegaly LUNGS: Respirations even and unlabored. Lungs diminished bilaterally. HEART: Regular rate and rhythm. S1 and S2 heard. Systolic murmur noted. EXTREMITIES: Normal range of motion. No clubbing or cyanosis. Peripheral pulses intact. Trace lower extremity edema ASSESSMENT: Acute hypoxic respiratory failure, secondary to diastolic congestive heart failure along with COPD exacerbation Acute exacerbation of chronic diastolic congestive heart failure, EF 55-60% Moderate to severe aortic stenosis, moderate mitral regurgitation, and pulmonary hypertension Acute exacerbation of COPD Recent acute GI bleed with drop in hemoglobin requiring blood transfusion Diabetes mellitus, type II Hypertension Hypothyroidism PLAN: Continue IV Lasix for another 24 hours. Anticipate transitioning over to oral dosing tomorrow Monitor kidney function Daily weights Accurate I&O Nurse practitioner note has been reviewed by physician. Signing provider agrees with the documented findings, assessment, and plan of care. Objective - Vital Signs Vital signs: Vital Signs Temp 98.3 F 05/11/20 20:00 Pulse 88 05/12/20 09:44 Resp 17 05/12/20 04:00 BP 113/57 05/12/20 04:00 Pulse Ox 98 05/12/20 04:00 Intake & Output 05/11/20 05/12/20 05/12/20 18:59 06:59 18:59 Intake Total 1040 310 Output Total 1850 1500 Balance -810 -1190 Weight 112.5 kg Intake: Intake, IV Titration 0 Amount Insulin Regular 100 unit 0 In Sodium Chloride 0.9% 100 ml @ Titrate IV .Q0M [facility] Rx#:[id number] Oral 730 Blood Product 310 310 Rc As-1 Unit 0 310 [id number] Rc As-1 Unit 310 [id number] Output: Urine 1850 1500 Other: Voiding Method Indwelling Catheter Indwelling Catheter - Labs CBC & Chem 7: 11/16/20 06:40 05/12/20 06:40 Labs: Abnormal Lab Results - Last 24 Hours (Table) 05/11/20 05/11/20 05/11/20 Range/Units 07:10 07:10 09:04 WBC (3.8-10.6) k/uL RBC (3.80-5.40) m/uL Hgb (11.4-16.0) gm/dL Hct (34.0-46.0) % MCH (25.0-35.0) pg MCHC (31.0-37.0) g/dL RDW (11.5-15.5) % Neutrophils # (Manual) (1.3-7.7) k/uL Monocytes # (Manual) (0-1.0) k/uL Chloride (98-107) mmol/L Carbon Dioxide (22-30) mmol/L BUN (7-17) mg/dL Creatinine (0.52-1.04) mg/dL Glucose (74-99) mg/dL POC Glucose (mg/dL) (75-99) mg/dL Hemoglobin A1c 6.6 H (4.0-6.0) % Albumin (3.5-5.0) g/dL Procalcitonin 0.30 H (0.02-0.09) ng/mL Crossmatch See Detail 05/11/20 05/11/20 05/11/20 Range/Units 12:09 17:17 20:28 WBC (3.8-10.6) k/uL RBC (3.80-5.40) m/uL Hgb (11.4-16.0) gm/dL Hct (34.0-46.0) % MCH (25.0-35.0) pg MCHC (31.0-37.0) g/dL RDW (11.5-15.5) % Neutrophils # (Manual) (1.3-7.7) k/uL Monocytes # (Manual) (0-1.0) k/uL Chloride (98-107) mmol/L Carbon Dioxide (22-30) mmol/L BUN (7-17) mg/dL Creatinine (0.52-1.04) mg/dL Glucose (74-99) mg/dL POC Glucose (mg/dL) 232 H 240 H 499 H (75-99) mg/dL Hemoglobin A1c (4.0-6.0) % Albumin (3.5-5.0) g/dL Procalcitonin (0.02-0.09) ng/mL Crossmatch 05/12/20 05/12/20 05/12/20 Range/Units 02:53 06:35 06:40 WBC 13.9 H 15.2 H (3.8-10.6) k/uL RBC 3.08 L 3.46 L (3.80-5.40) m/uL Hgb 7.5 L 8.4 L (11.4-16.0) gm/dL Hct 26.1 L 29.2 L (34.0-46.0) % MCH 24.5 L 24.2 L (25.0-35.0) pg MCHC 28.9 L 28.7 L (31.0-37.0) g/dL RDW 19.8 H 19.7 H (11.5-15.5) % Neutrophils # (Manual) 11.10 H (1.3-7.7) k/uL Monocytes # (Manual) 1.37 H (0-1.0) k/uL Chloride (98-107) mmol/L Carbon Dioxide (22-30) mmol/L BUN (7-17) mg/dL Creatinine (0.52-1.04) mg/dL Glucose (74-99) mg/dL POC Glucose (mg/dL) 172 H (75-99) mg/dL Hemoglobin A1c (4.0-6.0) % Albumin (3.5-5.0) g/dL Procalcitonin (0.02-0.09) ng/mL Crossmatch 05/12/20 Range/Units 06:40 WBC (3.8-10.6) k/uL RBC (3.80-5.40) m/uL Hgb (11.4-16.0) gm/dL Hct (34.0-46.0) % MCH (25.0-35.0) pg MCHC (31.0-37.0) g/dL RDW (11.5-15.5) % Neutrophils # (Manual) (1.3-7.7) k/uL Monocytes # (Manual) (0-1.0) k/uL Chloride 93 L (98-107) mmol/L Carbon Dioxide 38 H (22-30) mmol/L BUN 31 H (7-17) mg/dL Creatinine 1.10 H (0.52-1.04) mg/dL Glucose 131 H (74-99) mg/dL POC Glucose (mg/dL) (75-99) mg/dL Hemoglobin A1c (4.0-6.0) % Albumin 3.4 L (3.5-5.0) g/dL Procalcitonin (0.02-0.09) ng/mL Crossmatch
[2020-05-12 11:57] LABS: Glucose,Whole Blood 193 mg/dL (75-99)
--- NOTE | 2020-05-12 13:53 | P.PN ---
Subjective Progress Note Date: 05/12/20 65-year-old mildly overweight female one of my office patient with known for the last few month with multi medical problem was known to have history of recurrent gastrointestinal bleed with multi blood transfusion and multi admission to the hospital with multi EGD and GI workup was the hospital last 03/27/2020 for worsening respiratory failure with worsening dyspnea and shortness of breath found to have acute anemia with worsening chest pain or worsening heart failure at the time. 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 Patient was with her in the emergency room the day before and was doing well herself. She developed to have sudden onset of worsening dyspnea and shortness of breath with worsening PND and orthopnea felt was gasping for air. Patient ask her to drive her to [facility] department have to wait to she become in extreme respiratory distress 911 was called and patient was transported the rest of the way up by EMS at the time was any seen in [facility] chest x-ray showed cephalization and pulmonary edema. Patient was started on IV furosemide she started on diuretics as well will be admitted to the hospital have cardiology seen her CK and troponin first one negative hemoglobin is down 1 g from last week at 7.7. Kidney function still holding well at this point. 05/10: Patient is found to be sitting up in a chair in moderate distress with a BiPAP machine in place. Patient states that she is able to breathe a little bit better. Continues to have increased anxiety and shortness of breath. Patient remains afebrile, heart rate 18 labored, blood pressure 131/59, pulse oxing 100% on BiPAP. WCC 50.4, hemoglobin 7.6, potassium 4.4, BUN 28, creatinine 0.91, covid 19 negative. Troponin less than 0.012 05/11: Patient is found sitting up in bed in no acute distress. Patient is currently on 4 L via nasal cannula pulse oxing 94%. Patient has been afebrile, heart rate 71, blood pressure 110/63 with respirations 28 normal and nonlabored. Patient is still experiencing some shortness of breath with activity. Hemoglobin dropped to 6.5 today she'll have [address] Samayoa at bedside discussing possible scope on Tuesday. Patient denies any black tarry stool or blood in the stool. Patient has no nausea or vomiting. 05/12: Patient is scheduled for endoscopy on Tuesday. She did have a last bowel movement was yesterday and she does not know if there was any blood or tar in the stool. She is feeling better in general. She is status post transfusion of a total of 2 units packed RBCs. Hemoglobin this morning is 8.4. WBC 15.2. BUN 31 and creatinine 1.1. Blood sugars are running between 172 and 399, improved this morning. Last evening she received an extra 10 units of NovoLog with scale. Patient is day 2 of Ferrlecit infusions which will be discontinued tomorrow. She is on Lasix 40 mg IV every 8 hours. Review of systems: CONSTITUTIONAL: Morbidly obese in no acute respiratory distress. EYES: No icterus sclerae, no conjunctivitis. EARS, NOSE, MOUTH, THROAT, and FACE: No sore throat, lymphadenopathy, carotid bruits or deformity. RESPIRATORY: Positive shortness of breath cough wheezes CARDIOVASCULAR: Positive PND orthopnea and palpitation with worsening dyspnea with minimal exertion. GASTROINTESTINAL: No Abd pain, Nausea or vomiting, no Diarrhea or constipation, still have significant change in bowel habits or tarry stool with no bright red blood per rectum. GENITOURINARY: Negative for Hematuria or UTI, no kidney stones. INTEGUMENT/BREAST: Generalized arthralgia and myalgia. HEMATOLOGIC/LYMPHATIC: Negative for bleed or purpura. MUSCULOSKELTAL: Generalized arthralgia and myalgia NEURLOGICAL: No LOC, Sz or syncope, blurred vision dizziness or abnormality.. BEHAVIORAL/PSYCH: Negative. ENDOCRINE: Negative. Physical exam: General Appearance: Alert, cooperative, moderate distress, morbidly obese Neck HEENT: Supple, no lymphadenopathy, no thyroid enlargement, no carotid bruits. Lungs: Decreased breath some bilateral rhonchi positive mild expected wheezes Chest Wall: Decrease with deep inspiration no tenderness and no deformity was found on exam, no costochondral pain or discomfort. Heart: Regular rate and rhythm, S1, S2 normal, no murmur, rub or gallop. Back: Symmetric, no curvature, ROM normal, no CVA tenderness. Abdomen: Soft, non-tender, bowel sounds active all four quadrants, no masses, no organomegaly. Extremities: Significant edema or decreased pulse bilaterally with slight bruising lower extremity. Pulses: 2+ and symmetric. Skin: Skin color, texture, tugor normal, no rashes or lesions. Neurologic: Alert oriented x3 cranial nerves II through XII intact, no motor de ficit, no abnormal balance or gait. Assessment/plan: 1 acute hypoxic respiratory failure: Secondary to congestive heart failure and COPD along with acute anemia admit patient to the hospital consult pulmonary and cardiology continue diuretics and watch daily weight. Repeat troponin 0.210 2 congestive heart failure exacerbation: Mostly diastolic dysfunction, ejection fraction was 55-60% eye recently patient will be on IV diuretics will consult cardiology continue current management. 3 moderate to severe aortic stenosis with valvular heart disease also had moderate mitral regurgitation and moderate pulmonary hypertension: Patient continue with the current management patient is not a candidate for any invasive procedure currently. 4 COPD exacerbation: Patient has been on DuoNeb and Pulmicort Will add Diamox and Solu-Medrol consult pulmonary. 5 aspiration pneumonia: Right side consolidation is still minor patient be on Zosyn IV. 6 recurrent acute or subacute gastrointestinal bleed. Patient has been seen by GI with plan for endoscopy on Tuesday. 7 metabolic acidosis and lactic acidosis: Patient will be on hydration blood transfusion and recheck for any active acute infection. 8 type 2 diabetes and insulin: Resume Accu-Chek with sliding scales coverage also resume Lantus and NovoLog. 9 hypothyroidism: Continue levothyroxine at 125 g daily. 10 restless leg syndrome: Patient has been on Requip 2 mg twice a day. 11 hypertension: Blood pressure still mildly elevated continue patient on metoprolol and amlodipine. 12 acute kidney injury with chronic kidney disease: Continue to watch kidney function especially with the current diuretics. 13 recurrent history of angina: With worsening symptom causing acute pulmonary edema might add isosorbide mononitrate and recheck for any worsening symptoms no heart catheter is required this point. 14 GI prophylaxis: Patient be on pantoprazole. 15 DVT prophylaxis: Patient will have early mobilization along with knee-high FILEMON hose. 16 acute blood loss anemia status post 2 units packed RBCs. CODE STATUS: Full code. Discharge plan: Home Impression and plan of care have been directed as dictated by the signing physician. Clarice Colón nurse practitioner acting as scribe for signing physician. Objective - Vital Signs Vital signs: Vital Signs Temp 98.3 F 05/11/20 20:00 Pulse 61 05/12/20 04:00 Resp 17 05/12/20 04:00 BP 113/57 05/12/20 04:00 Pulse Ox 98 05/12/20 04:00 Intake & Output 05/11/20 05/12/20 05/12/20 18:59 06:59 18:59 Intake Total 1040 310 Output Total 1850 1500 Balance -810 -1190 Weight 112.5 kg Intake: Intake, IV Titration 0 Amount Insulin Regular 100 unit 0 In Sodium Chloride 0.9% 100 ml @ Titrate IV [facility] Rx#:[id number] Oral 730 Blood Product 310 310 Rc As-1 Unit 0 310 [id number] Rc As-1 Unit 310 [id number] Output: Urine 1850 1500 Other: Voiding Method Indwelling Catheter Indwelling Catheter - Labs CBC & Chem 7: 05/12/20 06:40 05/12/20 06:40 Labs: Abnormal Lab Results - Last 24 Hours (Table) 05/11/20 05/11/20 05/11/20 Range/Units 07:10 07:10 08:30 WBC (3.8-10.6) k/uL RBC (3.80-5.40) m/uL Hgb 6.5 L* (11.4-16.0) gm/dL Hct (34.0-46.0) % MCH (25.0-35.0) pg MCHC (31.0-37.0) g/dL RDW (11.5-15.5) % Neutrophils # (Manual) 15.75 H (1.3-7.7) k/uL Chloride (98-107) mmol/L Carbon Dioxide (22-30) mmol/L BUN (7-17) mg/dL Creatinine (0.52-1.04) mg/dL Glucose (74-99) mg/dL POC Glucose (mg/dL) 123 H (75-99) mg/dL Hemoglobin A1c 6.6 H (4.0-6.0) % Albumin (3.5-5.0) g/dL Crossmatch 05/11/20 05/11/20 05/11/20 Range/Units 09:04 10:12 12:09 WBC (3.8-10.6) k/uL RBC (3.80-5.40) m/uL Hgb (11.4-16.0) gm/dL Hct (34.0-46.0) % MCH (25.0-35.0) pg MCHC (31.0-37.0) g/dL RDW (11.5-15.5) % Neutrophils # (Manual) (1.3-7.7) k/uL Chloride (98-107) mmol/L Carbon Dioxide (22-30) mmol/L BUN (7-17) mg/dL Creatinine (0.52-1.04) mg/dL Glucose (74-99) mg/dL POC Glucose (mg/dL) 215 H 232 H (75-99) mg/dL Hemoglobin A1c (4.0-6.0) % Albumin (3.5-5.0) g/dL Crossmatch See Detail 05/11/20 05/11/20 05/12/20 Range/Units 17:17 20:28 02:53 WBC 13.9 H (3.8-10.6) k/uL RBC 3.08 L (3.80-5.40) m/uL Hgb 7.5 L (11.4-16.0) gm/dL Hct 26.1 L (34.0-46.0) % MCH 24.5 L (25.0-35.0) pg MCHC 28.9 L (31.0-37.0) g/dL RDW 19.8 H (11.5-15.5) % Neutrophils # (Manual) (1.3-7.7) k/uL Chloride (98-107) mmol/L Carbon Dioxide (22-30) mmol/L BUN (7-17) mg/dL Creatinine (0.52-1.04) mg/dL Glucose (74-99) mg/dL POC Glucose (mg/dL) 240 H 499 H (75-99) mg/dL Hemoglobin A1c (4.0-6.0) % Albumin (3.5-5.0) g/dL Crossmatch 05/12/20 05/12/20 05/12/20 Range/Units 06:35 06:40 06:40 WBC 15.2 H (3.8-10.6) k/uL RBC 3.46 L (3.80-5.40) m/uL Hgb 8.4 L (11.4-16.0) gm/dL Hct 29.2 L (34.0-46.0) % MCH 24.2 L (25.0-35.0) pg MCHC 28.7 L (31.0-37.0) g/dL RDW 19.7 H (11.5-15.5) % Neutrophils # (Manual) (1.3-7.7) k/uL Chloride 93 L (98-107) mmol/L Carbon Dioxide 38 H (22-30) mmol/L BUN 31 H (7-17) mg/dL Creatinine 1.10 H (0.52-1.04) mg/dL Glucose 131 H (74-99) mg/dL POC Glucose (mg/dL) 172 H (75-99) mg/dL Hemoglobin A1c (4.0-6.0) % Albumin 3.4 L (3.5-5.0) g/dL Crossmatch
--- NOTE | 2020-05-12 16:40 | PN ---
PROGRESS NOTE DATE OF DICTATION: 05/12/2020 REQUESTING PHYSICIAN: Dr. Deras. Patient is a 65-year-old pleasant white female admitted to hospital with exacerbation of congestive heart failure. While in the hospital, she dropped hemoglobin by 2 g, requiring 2 units of blood transfusion yesterday. Today, she is feeling better. Her shortness of breath has improved. No abdominal pain. No nausea, no vomiting. She had one bowel movement which was dark in color this morning. She reports no fever, chills, or night sweats. No nausea, vomiting. PHYSICAL EXAMINATION: She appears comfortable, in no apparent distress. VITAL SIGNS: Stable. Blood pressure 143/77, pulse rate 92 per minute and afebrile. HEENT: Examination unremarkable, conjunctivae are pink, sclerae nonicteric. Oral cavity no lesions. NECK: No JVD or lymph node enlargement. CHEST: Clear to auscultation. HEART: Regular rate and rhythm. ABDOMEN: Soft, it was slightly obese. Bowel sounds are positive, no organomegaly. EXTREMITIES: No pedal edema. SKIN: No rashes. NEURO: She is alert and oriented x3. No focal deficits. LABS: From yesterday, hemoglobin was 6.5 and today it is up to 8.4 after 2 units of blood transfusion. WBC 15.2, platelets 212. BUN is 31, creatinine 1.10. IMPRESSION: 1. Severe symptomatic anemia with a hemoglobin of 6.5 requiring 2 units of blood transfusion, last hemoglobin today is 8.4 g/dL. Patient with recurrent anemia for the last one year with multiple EGDs and colonoscopies. 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 Patient clinically has no active bleeding. 2. Exacerbation of congestive heart failure, gradually improving. 3. History of hypothyroidism. 4. History of diabetes mellitus and hypertension. RECOMMENDATION: 1. Continue with symptomatic and supportive care. 2. Monitor CBC daily. 3. Continue Protonix 40 mg daily. 4. Will proceed with an upper endoscopy/enteroscopy tomorrow. 5. Will follow with you closely. Thank you for this consultation. MMODL / IJN: [id number] /
[2020-05-12 17:04] LABS: Glucose,Whole Blood 300 mg/dL (75-99)
[2020-05-12 19:31] LABS: Glucose,Whole Blood 299 mg/dL (75-99)
[2020-05-12] MEDS: INSULIN DETEMIR (LEVEMIR) 100 UNIT/ML SYR SQ SCH (21:00)
[2020-05-12] MEDS: MONTELUKAST 10 MG TAB PO SCH (21:00)
[2020-05-12] MEDS: SODIUM CHLORIDE 0.9% 1,000 ML IV SCH (21:05)
[2020-05-13] MEDS: LEVOTHYROXINE 125 MCG TAB PO SCH (06:04)
[2020-05-13] MEDS: FUROSEMIDE 10 MG/ML 4 ML VIAL IV SCH ×3 (06:04→23:24)
[2020-05-13 07:02] LABS: Glucose,Whole Blood 136 mg/dL (75-99)
[2020-05-13] MEDS: SYMBICORT 160-4.5 MCG INHALER INHALATION SCH ×2 (07:09→21:14)
[2020-05-13 07:44] LABS: Anisocytosis Slight; HCT 32.7 % (34.0-46.0); Hypochromasia Marked; MCH 23.6 pg (25.0-35.0); MCHC 27.6 g/dL (31.0-37.0); MCV 85.5 fL (80.0-100.0); Mean Platelet Volume 9.1; Platelet Count 218 k/uL (150-450); Poikilocytosis Moderate; RBC 3.83 m/uL (3.80-5.40); RDW 19.3 % (11.5-15.5)
[2020-05-13] MEDS: INSULIN ASPART (NovoLOG) 100 UNIT/ML VIAL SQ SCH ×4 (08:12→23:22)
[2020-05-13] MEDS: METOPROLOL TARTRATE 50 MG TAB PO SCH ×2 (08:23→23:23)
[2020-05-13] MEDS: SODIUM FERRIC GLUCONAT-SUCROSE 125 MG in SODIUM CHLORIDE 0.9% 100 ML IVPB SCH (08:23)
[2020-05-13] MEDS: PREGABALIN 100 MG CAP PO SCH ×2 (10:41→23:24)
[2020-05-13] MEDS: PANTOPRAZOLE 40 MG TABLET PO SCH ×2 (10:41→23:24)
[2020-05-13] MEDS: amLODIPine 5 MG TAB PO SCH (10:41)
[2020-05-13] MEDS: SPIRONOLACTONE 25 MG TAB PO SCH (10:41)
[2020-05-13] MEDS: ATORVASTATIN 40 MG TAB PO SCH (10:41)
[2020-05-13] MEDS: acetaZOLAMIDE 250 MG TAB PO SCH (10:41)
[2020-05-13] MEDS: ISOSORBIDE MONONITRATE ER 30 MG TAB.ER.24H PO SCH (10:41)
[2020-05-13] MEDS: POTASSIUM CHLORIDE ER 10 MEQ TAB.ER.PRT PO SCH ×2 (10:42→23:23)
[2020-05-13] MEDS: FLUoxetine HCL 20 MG CAP PO SCH (10:42)
--- NOTE | 2020-05-13 10:44 | P.PN ---
Subjective Progress Note Date: 05/13/20 65-year-old mildly overweight female one of my office patient with known for the last few month with multi medical problem was known to have history of recurrent gastrointestinal bleed with multi blood transfusion and multi admission to the hospital with multi EGD and GI workup was the hospital last 03/27/2020 for worsening respiratory failure with worsening dyspnea and shortness of breath found to have acute anemia with worsening chest pain or worsening heart failure at the time. 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 Patient was with her in the emergency room the day before and was doing well herself. She developed to have sudden onset of worsening dyspnea and shortness of breath with worsening PND and orthopnea felt was gasping for air. Patient ask her to drive her to [facility] department have to wait to she become in extreme respiratory distress 911 was called and patient was transported the rest of the way up by EMS at the time was any seen in [facility] chest x-ray showed cephalization and pulmonary edema. Patient was started on IV furosemide she started on diuretics as well will be admitted to the hospital have cardiology seen her CK and troponin first one negative hemoglobin is down 1 g from last week at 7.7. Kidney function still holding well at this point. 05/10: Patient is found to be sitting up in a chair in moderate distress with a BiPAP machine in place. Patient states that she is able to breathe a little bit better. Continues to have increased anxiety and shortness of breath. Patient remains afebrile, heart rate 18 labored, blood pressure 131/59, pulse oxing 100% on BiPAP. WCC 50.4, hemoglobin 7.6, potassium 4.4, BUN 28, creatinine 0.91, covid 19 negative. Troponin less than 0.012 05/11: Patient is found sitting up in bed in no acute distress. Patient is currently on 4 L via nasal cannula pulse oxing 94%. Patient has been afebrile, heart rate 71, blood pressure 110/63 with respirations 28 normal and nonlabored. Patient is still experiencing some shortness of breath with activity. Hemoglobin dropped to 6.5 today she'll have [address] Samayoa at bedside discussing possible scope on Tuesday. Patient denies any black tarry stool or blood in the stool. Patient has no nausea or vomiting. 05/12: Patient is scheduled for endoscopy on Tuesday. She did have a last bowel movement was yesterday and she does not know if there was any blood or tar in the stool. She is feeling better in general. She is status post transfusion of a total of 2 units packed RBCs. Hemoglobin this morning is 8.4. WBC 15.2. BUN 31 and creatinine 1.1. Blood sugars are running between 172 and 399, improved this morning. Last evening she received an extra 10 units of NovoLog with scale. Patient is day 2 of Ferrlecit infusions which will be discontinued tomorrow. She is on Lasix 40 mg IV every 8 hours. 05/13: Patient denies any new complaints today. She is scheduled for EGD today. Raphael catheter will be discontinued. She has been afebrile, heart rate 61, blood pressure 138/81, pulse ox 96% on 4 L nasal cannula. WBC 13, hemoglobin 9. Patient is continued on IV Lasix and plan to transition to Bumex oral tomorrow. Possible discharge home tomorrow. Review of systems: CONSTITUTIONAL: Morbidly obese in no acute respiratory distress. Denies fever. Denies chills. EYES: No icterus sclerae, no conjunctivitis. EARS, NOSE, MOUTH, THROAT, and FACE: No sore throat, lymphadenopathy, carotid bruits or deformity. RESPIRATORY: Positive shortness of breath cough wheezes CARDIOVASCULAR: Positive PND orthopnea and palpitation with worsening dyspnea with minimal exertion. GASTROINTESTINAL: No Abd pain, Nausea or vomiting, no Diarrhea or constipation, still have significant change in bowel habits or tarry stool with no bright red blood per rectum. GENITOURINARY: Negative for Hematuria or UTI, no kidney stones. INTEGUMENT/BREAST: Generalized arthralgia and myalgia. HEMATOLOGIC/LYMPHATIC: Negative for bleed or purpura. MUSCULOSKELTAL: Generalized arthralgia and myalgia NEURLOGICAL: No LOC, Sz or syncope, blurred vision dizziness or abnormality.. BEHAVIORAL/PSYCH: Negative. ENDOCRINE: Negative. Physical exam: General Appearance: Alert, cooperative, no distress, morbidly obese. Patient is sitting on the edge of the bed. Neck HEENT: Supple, no lymphadenopathy, no thyroid enlargement, no carotid bruits. Lungs: Decreased breath some bilateral rhonchi positive mild expected wheezes Chest Wall: Decrease with deep inspiration no tenderness and no deformity was found on exam, no costochondral pain or discomfort. Heart: Regular rate and rhythm, S1, S2 normal, no murmur, rub or gallop. Back: Symmetric, no curvature, ROM normal, no CVA tenderness. Abdomen: Soft, non-tender, bowel sounds active all four quadrants, no masses, no organomegaly. Extremities: Significant edema or decreased pulse bilaterally with slight bruising lower extremity. Pulses: 2+ and symmetric. Skin: Skin color, texture, tugor normal, no rashes or lesions. Neurologic: Alert oriented x3 cranial nerves II through XII intact, no motor deficit, no abnormal balance or gait. Assessment/plan: 1 acute on chronic hypoxic respiratory failure: Secondary to congestive heart failure and COPD along with acute anemia admit patient to the hospital consult pulmonary and cardiology continue diuretics and watch daily weight. Repeat troponin 0.210 2 congestive heart failure exacerbation: Mostly diastolic dysfunction, ejection fraction was 55-60% eye recently patient will be on IV diuretics will consult cardiology continue current management. 3 moderate to severe aortic stenosis with valvular heart disease also had moderate mitral regurgitation and moderate pulmonary hypertension: Patient continue with the current management patient is not a candidate for any invasive procedure currently. 4 COPD exacerbation: Patient has been on DuoNeb and Pulmicort Will add Diamox and Solu-Medrol consult pulmonary. 5 aspiration pneumonia: Right side consolidation is still minor patient be on Zosyn IV. 6 recurrent acute or subacute gastrointestinal bleed. Patient has been seen by GI with plan for endoscopy on Tuesday. 7 metabolic acidosis and lactic acidosis: Patient will be on hydration blood transfusion and recheck for any active acute infection. 8 type 2 diabetes and insulin: Resume Accu-Chek with sliding scales coverage also resume Lantus and NovoLog. 9 hypothyroidism: Continue levothyroxine at 125 g daily. 10 restless leg syndrome: Patient has been on Requip 2 mg twice a day. 11 hypertension: Blood pressure still mildly elevated continue patient on metoprolol and amlodipine. 12 acute kidney injury with chronic kidney disease: Continue to watch kidney function especially with the current diuretics. 13 recurrent history of angina: With worsening symptom causing acute pulmonary edema might add isosorbide mononitrate and recheck for any worsening symptoms no heart catheter is required this point. 14 GI prophylaxis: Patient be on pantoprazole. 15 DVT prophylaxis: Patient will have early mobilization along with knee-high FILEMON hose. 16 acute blood loss anemia status post 2 units packed RBCs. CODE STATUS: Full code. Discharge plan: Home with [facility] tomorrow Impression and plan of care have been directed as dictated by the signing physician. Clarice Colón nurse practitioner acting as scribe for signing physician. Objective - Vital Signs Vital signs: Vital Signs Temp 98.4 F 05/13/20 04:20 Pulse 61 05/13/20 04:20 Resp 16 05/13/20 04:20 BP 138/63 05/13/20 04:20 Pulse Ox 99 05/13/20 04:20 Intake & Output 05/12/20 05/13/20 05/13/20 18:59 06:59 18:59 Intake Total 340 800 Output Total 3500 1600 Balance -3160 -800 Intake: Intake, IV Titration 100 Amount Sodium Ferric Gluconat- 100 Sucrose 125 mg In Sodium Chloride 0.9% 100 ml @ 100 mls/hr IVPB DAILY [facility] Rx#:[id number] Oral 240 800 Output: Urine 3500 1600 Other: Voiding Method Indwelling Catheter Indwelling Catheter - Labs CBC & Chem 7: 05/13/20 07:23 05/12/20 06:40 Labs: Abnormal Lab Results - Last 24 Hours (Table) 05/11/20 05/12/20 05/12/20 Range/Units 07:10 06:40 11:36 WBC (3.8-10.6) k/uL Hgb (11.4-16.0) gm/dL Hct (34.0-46.0) % MCH (25.0-35.0) pg MCHC (31.0-37.0) g/dL RDW (11.5-15.5) % Neutrophils # (Manual) 11.10 H (1.3-7.7) k/uL Monocytes # (Manual) 1.37 H (0-1.0) k/uL POC Glucose (mg/dL) 193 H (75-99) mg/dL Procalcitonin 0.30 H (0.02-0.09) ng/mL 05/12/20 05/12/20 05/13/20 Range/Units 17:03 19:30 07:00 WBC (3.8-10.6) k/uL Hgb (11.4-16.0) gm/dL Hct (34.0-46.0) % MCH (25.0-35.0) pg MCHC (31.0-37.0) g/dL RDW (11.5-15.5) % Neutrophils # (Manual) (1.3-7.7) k/uL Monocytes # (Manual) (0-1.0) k/uL POC Glucose (mg/dL) 300 H 299 H 136 H (75-99) mg/dL Procalcitonin (0.02-0.09) ng/mL 05/13/20 Range/Units 07:23 WBC 13.0 H (3.8-10.6) k/uL Hgb 9.0 L (11.4-16.0) gm/dL Hct 32.7 L (34.0-46.0) % MCH 23.6 L (25.0-35.0) pg MCHC 27.6 L (31.0-37.0) g/dL RDW 19.3 H (11.5-15.5) % Neutrophils # (Manual) (1.3-7.7) k/uL Monocytes # (Manual) (0-1.0) k/uL POC Glucose (mg/dL) (75-99) mg/dL Procalcitonin (0.02-0.09) ng/mL
[2020-05-13 11:32] LABS: Glucose,Whole Blood 102 mg/dL (75-99)
[2020-05-13 12:02] LABS: Anion Gap 8.9 mmol/L (4.00-12.00); Calcium 9.2 mg/dL (8.7-10.3); Carbon Dioxide 39.1 mmol/L (21.6-31.8); Non-African American GFR(CKD) 58.7 (60.0-200.0); Potassium 3.7 mmol/L (3.5-5.5)
--- NOTE | 2020-05-13 13:31 | P.PN ---
Subjective Progress Note Date: 05/13/20 This is a 65-year-old female with documented history of GI bleed, anemia, COPD, diabetes, hypertension, hyperlipidemia, nonsmoker, sleep apnea, obesity, who presented to the hospital primarily with symptoms of fairly sudden onset of shortness of breath. Her chest x-ray on presentation here showed congestive heart failure, patient had an echo performed in February which revealed an ejection fraction of 55-60%, moderate aortic stenosis, moderate mitral stenosis. EKG on presentation here showed a normal sinus rhythm with nonspecific ST-T wave changes. Blood pressure 144/60 with a heart rate in the 70s, respirations 20, 97% on 1% nonrebreather . White blood cell count 15.4, hemoglobin 7.6, platelet count 291. Sodium 136, potassium 4.4, BUN 28, creatinine 0.9. BNP level 2019, whitman virus rapid testing was negative. 05/11/2020 Patient seen and examined this morning, diuresing well overnight on IV Lasix. Blood pressure 116/60 with a heart rate in the 80s, 94% on 4 L of oxygen. White blood cell count 17.5, no hemoglobin documented, yesterday's hemoglobin was 7.0 platelet count 240, hematocrit 24.7, sodium 140, potassium 3.6, BUN 39, creatinine 1.2. 05/13/2020 Patient was seen and examined this morning, scheduled for an EGD today. Continues to be on IV Lasix. Blood pressure 138/80 with a heart rate in the 60s, 96% on 4 L of oxygen. White blood cell count 13.0, hemoglobin 9.0, platelet count 218. Sodium 144, potassium 3.7, BUN 25 and creatinine 1.0. Objective - Vital Signs Vital signs: Vital Signs Temp 97.6 F 05/13/20 08:21 Pulse 61 05/13/20 08:21 Resp 16 05/13/20 04:20 BP 138/81 05/13/20 08:21 Pulse Ox 96 05/13/20 08:21 Intake & Output 05/12/20 05/13/20 05/13/20 18:59 06:59 18:59 Intake Total 340 800 Output Total 3500 1600 600 Balance -3160 -800 -600 Weight 109.6 kg Intake: Intake, IV Titration 100 Amount Sodium Ferric Gluconat- 100 Sucrose 125 mg In Sodium Chloride 0.9% 100 ml @ 100 mls/hr IVPB DAILY [facility] Rx#:[id number] Oral 240 800 Output: Urine 3500 1600 600 Uretheral (Raphael) 600 Other: Voiding Method Indwelling Catheter Indwelling Catheter Indwelling Catheter - Exam PHYSICAL EXAMINATION: GENERAL: 65-year-old female quite short of breath at the time of my examination HEENT: Head is atraumatic, normocephalic. Pupils equal, round. Sclera anicteric. Conjunctiva are clear. Mucous membranes of the mouth are moist. Neck is supple. There is elevated jugular venous pressure. No carotid bruit is heard. HEART EXAMINATION: Heart S1, S2 systolic murmur heard . CHEST EXAMINATION: Lungs reveal scattered rhonchi, wheezing, decreased air exchange throughout ABDOMEN: Soft, nontender. Bowel sounds are heard. No organomegaly noted. EXTREMITIES: 2+ peripheral pulses with no evidence of peripheral edema and no calf tenderness noted. NEUROLOGIC patient is awake, alert and oriented 3 . - Labs CBC & Chem 7: 05/13/20 07:23 05/13/20 07:23 Labs: Abnormal Lab Results - Last 24 Hours (Table) 05/12/20 05/12/20 05/13/20 Range/Units 17:03 19:30 07:00 WBC (3.8-10.6) k/uL Hgb (11.4-16.0) gm/dL Hct (34.0-46.0) % MCH (25.0-35.0) pg MCHC (31.0-37.0) g/dL RDW (11.5-15.5) % Carbon Dioxide (21.6-31.8) mmol/L Est GFR (CKD-EPI)NonAf (60.0-200.0) BUN/Creatinine Ratio (12.00-20.00) Ratio Glucose (70-110) mg/dL POC Glucose (mg/dL) 300 H 299 H 136 H (75-99) mg/dL 05/13/20 05/13/20 05/13/20 Range/Units 07:23 07:23 11:30 WBC 13.0 H (3.8-10.6) k/uL Hgb 9.0 L (11.4-16.0) gm/dL Hct 32.7 L (34.0-46.0) % MCH 23.6 L (25.0-35.0) pg MCHC 27.6 L (31.0-37.0) g/dL RDW 19.3 H (11.5-15.5) % Carbon Dioxide 39.1 H (21.6-31.8) mmol/L Est GFR (CKD-EPI)NonAf 58.7 L (60.0-200.0) BUN/Creatinine Ratio 25.00 H (12.00-20.00) Ratio Glucose 130 H (70-110) mg/dL POC Glucose (mg/dL) 102 H (75-99) mg/dL Assessment and Plan Plan: Assessment and plan #1 acute respiratory failure, likely secondary to diastolic congestive heart failure along with COPD exacerbation, possible pneumonia #2 diastolic congestive heart failure acute on chronic #3 moderate to severe aortic stenosis with moderate mitral regurgitation and pulmonary hypertension #4 COPD #5 recent acute GI bleed with significant drop in hemoglobin, requiring blood transfusion #6 type 2 diabetes #7 hypothyroidism #8 hypertension #9 acute on chronic kidney injury Plan We will continue current dose of IV Lasix, continue to monitor intake and output along with daily weights and daily lytes BUN and creatinine. Patient scheduled for an EGD today. Further recommendations to follow. DNP note has been reviewed, I agree with a documented findings and plan of care. Patient was seen and examined.
[2020-05-13] MEDS ORDERED: LIDOCAINE 1% INJ 10MG/ML (20 ML MDV) ONE (13:46)
[2020-05-13] MEDS ORDERED: PROPOFOL 10 MG/ML 20 ML VIAL IV ONE (13:46)
[2020-05-13] MEDS ORDERED: IV FLUID CONTINUATION 1,000 ML IV ONE ×2 (13:47)
--- NOTE | 2020-05-13 14:07 | P.PCN ---
Date of Procedure: 05/13/20 Procedure(s) Performed: BRIEF HISTORY: Patient is a 65-year-old, pleasant, white female admitted hospital with exacerbation of CHF and while in the hospital she dropped hemoglobin to 6.5 g/dL requiring 2 units of blood transition. She has recurrent anemia with GI bleed for the last 1 year requiring multiple EGD colonoscopies. Last upper endoscopy with enteroscopy was performed in February 2020 and was noted to have bleeding duodenal angiectasia that was cauterized. She is hence scheduled for repeat upper endoscopy/enteroscopy today. She denies any active GI bleed.. PROCEDURE PERFORMED: Esophagogastroduodenoscopy/enteroscopy with cautery. PREOPERATIVE DIAGNOSIS: Recurrent severe symptomatic anemia. IV sedation per anesthesia. PROCEDURE: After informed consent was obtained, the patient was brought into the endoscopy unit. IV sedation was administered by Anesthesia under continuous monitoring. Initially the Olympus GIF-140 video endoscope was inserted into the mouth. Esophagus intubated without any difficulty. It was gradually advanced into the stomach and duodenum and carefully examined. The bulb and the second part of the duodenum appeared normal. The scope at this time was advanced into the rest of the duodenum and into the proximal jejunum and approximately 60 cm from the ligament of Treitz was visualized. At 30 cm from the ligament of Treitz there was a 5 mm angiectasia that was not bleeding which was cauterized using a gold probe. There were 2 small angiectasia in the proximal jejunum which were nonbleeding but were also cauterized.. Duodenum appeared normal. The The scope at this time was withdrawn to the stomach, adequately insufflated with air, and upon careful examination, mucosa of the antrum, body, cardia and the fundus appeared normal. The scope was then withdrawn into the esophagus. The GE junction was located at 39 cm from the incisors. The esophagus appeared normal. There were no erosions or ulcerations seen and the patient tolerated the procedure well. IMPRESSION: 1. 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 2. Normal-appearing stomach and duodenum. RECOMMENDATIONS: The findings of this examination were discussed with the patient . Continue to monitor CBC daily. Advance diet as tolerated. If she continues to dropped hemoglobin to consider a small bowel capsule endoscopy to evaluate the rest of the small bowel..
[2020-05-13 14:12] VITALS: BMI 47.2
[2020-05-13 17:00] LABS: Glucose,Whole Blood 138 mg/dL (75-99)
[2020-05-13 19:48] LABS: Glucose,Whole Blood 289 mg/dL (75-99)
[2020-05-13 22:13] LABS: Glucose,Whole Blood 226 mg/dL (75-99)
[2020-05-13 23:16] VITALS: RESP 18
[2020-05-13] MEDS: INSULIN DETEMIR (LEVEMIR) 100 UNIT/ML SYR SQ SCH (23:22)
[2020-05-13] MEDS: MONTELUKAST 10 MG TAB PO SCH (23:23)
[2020-05-13] MEDS: SODIUM CHLORIDE 0.9% 1,000 ML IV SCH (23:24)
[2020-05-14 04:31] VITALS: BP 117/54; PULSE 64; TEMP 97.6
[2020-05-14] MEDS: FUROSEMIDE 10 MG/ML 4 ML VIAL IV SCH (06:28)
[2020-05-14] MEDS: LEVOTHYROXINE 125 MCG TAB PO SCH (06:28)
[2020-05-14 06:53] LABS: Anisocytosis Slight; HCT 31.8 % (34.0-46.0); Hypochromasia Marked; MCH 24.4 pg (25.0-35.0); MCHC 28.4 g/dL (31.0-37.0); MCV 85.8 fL (80.0-100.0); Mean Platelet Volume 9.2; Microcytosis Slight; Platelet Count 200 k/uL (150-450); Poikilocytosis Slight; RBC 3.71 m/uL (3.80-5.40); WBC 14.9 k/uL (3.8-10.6)
[2020-05-14 07:20] LABS: Glucose,Whole Blood 144 mg/dL (75-99)
[2020-05-14] MEDS: INSULIN ASPART (NovoLOG) 100 UNIT/ML VIAL SQ SCH ×2 (08:08→12:57)
[2020-05-14] MEDS: POTASSIUM CHLORIDE ER 10 MEQ TAB.ER.PRT PO SCH (08:10)
[2020-05-14] MEDS: PREGABALIN 100 MG CAP PO SCH (08:10)
[2020-05-14] MEDS: METOPROLOL TARTRATE 50 MG TAB PO SCH (08:10)
[2020-05-14] MEDS: PANTOPRAZOLE 40 MG TABLET PO SCH (08:11)
[2020-05-14] MEDS: amLODIPine 5 MG TAB PO SCH (08:11)
[2020-05-14] MEDS: ATORVASTATIN 40 MG TAB PO SCH (08:11)
[2020-05-14] MEDS: FLUoxetine HCL 20 MG CAP PO SCH (08:11)
[2020-05-14] MEDS: SPIRONOLACTONE 25 MG TAB PO SCH (08:11)
[2020-05-14] MEDS: ISOSORBIDE MONONITRATE ER 30 MG TAB.ER.24H PO SCH (08:11)
[2020-05-14] MEDS: acetaZOLAMIDE 250 MG TAB PO SCH (08:12)
--- NOTE | 2020-05-14 08:25 | P.DS ---
Providers Date of admission: 05/09/20 21:01 Expected date of discharge: 05/14/20 Attending physician: Yoel Deras Consults: 05/09/20 21:01 Consult Physician Routine Consulting Provider: Herve Yang Consult Reason/Comments: chf exacerbation Do you want consulting provider notified?: Yes 05/11/20 08:38 Consult Physician Routine Consulting Provider: Vivian Samayoa Consult Reason/Comments: low hgb-recent GI bleed Do you want consulting provider notified?: Yes Primary care physician: [facility] Course: 65-year-old mildly overweight female one of my office patient with known for the last few month with multi medical problem was known to have history of recurrent gastrointestinal bleed with multi blood transfusion and multi admission to the hospital with multi EGD and GI workup was the hospital last 03/27/2020 for worsening respiratory failure with worsening dyspnea and shortness of breath found to have acute anemia with worsening chest pain or worsening heart failure at the time. 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 Patient was with her in the emergency room the day before and was doing well herself. She developed to have sudden onset of worsening dyspnea and shortness of breath with worsening PND and orthopnea felt was gasping for air. Patient ask her to drive her to [facility] department have to wait to she become in extreme respiratory distress 911 was called and patient was transported the rest of the way up by EMS at the time was any seen in [facility] chest x-ray showed cephalization and pulmonary edema. Patient was started on IV furosemide she started on diuretics as well will be admitted to the hospital have cardiology seen her CK and troponin first one negative hemoglobin is down 1 g from last week at 7.7. Kidney function still holding well at this point. 05/10: Patient is found to be sitting up in a chair in moderate distress with a BiPAP machine in place. Patient states that she is able to breathe a little bit better. Continues to have increased anxiety and shortness of breath. Patient remains afebrile, heart rate 18 labored, blood pressure 131/59, pulse oxing 100% on BiPAP. WCC 50.4, hemoglobin 7.6, potassium 4.4, BUN 28, creatinine 0.91, covid 19 negative. Troponin less than 0.012 05/11: Patient is found sitting up in bed in no acute distress. Patient is currently on 4 L via nasal cannula pulse oxing 94%. Patient has been afebrile, heart rate 71, blood pressure 110/63 with respirations 28 normal and nonlabored. Patient is still experiencing some shortness of breath with activity. Hemoglobin dropped to 6.5 today she'll have [address] Samayoa at bedside discussing possible scope on Tuesday. Patient denies any black tarry stool or blood in the stool. Patient has no nausea or vomiting. 05/12: Patient is scheduled for endoscopy on Tuesday. She did have a last bowel movement was yesterday and she does not know if there was any blood or tar in the stool. She is feeling better in general. She is status post transfusion of a total of 2 units packed RBCs. Hemoglobin this morning is 8.4. WBC 15.2. BUN 31 and creatinine 1.1. Blood sugars are running between 172 and 399, improved this morning. Last evening she received an extra 10 units of NovoLog with scale. Patient is day 2 of Ferrlecit infusions which will be discontinued tomorrow. She is on Lasix 40 mg IV every 8 hours. 05/13: Patient denies any new complaints today. She is scheduled for EGD today. Raphael catheter will be discontinued. She has been afebrile, heart rate 61, blood pressure 138/81, pulse ox 96% on 4 L nasal cannula. WBC 13, hemoglobin 9. Patient is continued on IV Lasix and plan to transition to Bumex oral tomorrow. Possible discharge home tomorrow. 05/14: Patient underwent EGD yesterday which revealed nonbleeding angiectasia in the proximal jejunum status post cautery and normal-appearing stomach and duodenum. Patient was advised to advance diet as tolerated . Monitor hemoglobin and if there is a drop, patient may require small bowel capsule endoscopy. Hemoglobin is stable today at 9.0. Patient's has not been ambulating. We will plan to discontinue Raphael catheter, make sure that she can void, increase activity and is stable by this afternoon, discharge home. Home Bumex dose will be increased to 3 mg twice daily. Patient will return to the [facility] on Tuesday for CBC and continue weekly CBCs. Patient will be discharged home today in stable condition. Assessment/plan: 1 acute on chronic hypoxic respiratory failure: Secondary to diastolic heart failure and COPD along with acute anemia. 2 acute on chronic diastolic heart failure 3 moderate to severe aortic stenosis with valvular heart disease also had mode rate mitral regurgitation and moderate pulmonary hypertension 4 COPD exacerbation 5 aspiration pneumonia: Right side 6 recurrent acute or subacute gastrointestinal bleed. 7 metabolic acidosis and lactic acidosis 8 type 2 diabetes 9 hypothyroidism 10 restless leg syndrome 11 hypertension 12 acute kidney injury with chronic kidney disease 3A 13 recurrent history of angina 14 acute blood loss anemia status post 2 units packed RBCs. Discharge plan: Home with [facility] care Impression and plan of care have been directed as dictated by the signing physician. Clarice Colón nurse practitioner acting as scribe for signing physician. Patient Condition at Discharge: Good Plan - Discharge Summary Discharge Rx Participant: No New Discharge Prescriptions: Continue Insulin Glargine,Hum.rec.anlog [Toujeo Solostar] 60 units SQ HS rOPINIRole HCL [Requip] 2 mg PO BID Budesonide-Formot 160-4.5 Mcg [Symbicort 160-4.5 Mcg Inhaler] 2 puff INHALATION RT-BID Potassium Chloride ER [K-Dur 10] 10 meq PO BID Nitroglycerin Sl Tabs [Nitrostat] 0.4 mg SUBLINGUAL Q5M PRN PRN Reason: Chest Pain Montelukast Sodium [Singulair] 10 mg PO HS methocarbamoL [Robaxin] 500 mg PO BID PRN PRN Reason: Muscle Spasm Levothyroxine Sodium 125 mcg PO DAILY sitaGLIPtin [Januvia] 100 mg PO DAILY Isosorbide Mononitrate ER [Imdur] 30 mg PO DAILY Glimepiride [Amaryl] 2 mg PO DAILY FLUoxetine HCL 20 mg PO DAILY Atorvastatin [Lipitor] 40 mg PO DAILY Albuterol Nebulized [Ventolin Nebulized] 2.5 mg INHALATION RT-QID PRN PRN Reason: Shortness Of Breath Albuterol Inhaler [Ventolin Hfa Inhaler] 1 - 2 puff INHALATION RT-QID PRN PRN Reason: Shortness Of Breath acetaZOLAMIDE [Diamox] 250 mg PO DAILY #30 tablet Pregabalin [Lyrica] 200 mg PO BID #6 cap Pantoprazole [Protonix] 40 mg PO BID #0 INSULIN ASPART (NovoLOG) [NovoLOG (formulary)] See Protocol SQ ACHS Sennosides-Docusate Sodium [Senokot-S] 1 tab PO BID PRN PRN Reason: Constipation amLODIPine [Norvasc] 5 mg PO DAILY Spironolactone [Aldactone] 25 mg PO DAILY Metoprolol Tartrate [Lopressor] 100 mg PO BID Changed Bumetanide [BUMEX] 3 mg PO BID #180 tab Discharge Medication List Albuterol Inhaler [Ventolin Hfa Inhaler] 1 - 2 puff INHALATION RT-QID PRN 03/09/20 [History] Albuterol Nebulized [Ventolin Nebulized] 2.5 mg INHALATION RT-QID PRN 03/09/20 [History] Atorvastatin [Lipitor] 40 mg PO DAILY 03/09/20 [History] Budesonide-Formot 160-4.5 Mcg [Symbicort 160-4.5 Mcg Inhaler] 2 puff INHALATION RT-BID 03/09/20 [History] FLUoxetine HCL 20 mg PO DAILY 03/09/20 [History] Glimepiride [Amaryl] 2 mg PO DAILY 03/09/20 [History] Insulin Glargine,Hum.rec.anlog [Touidalia Solostar] 60 units SQ HS 03/09/20 [History] Isosorbide Mononitrate ER [Imdur] 30 mg PO DAILY 03/09/20 [History] Levothyroxine Sodium 125 mcg PO DAILY 03/09/20 [History] Montelukast Sodium [Singulair] 10 mg PO HS 03/09/20 [History] Nitroglycerin Sl Tabs [Nitrostat] 0.4 mg SUBLINGUAL Q5M PRN 03/09/20 [History] Potassium Chloride ER [K-Dur 10] 10 meq PO BID 03/09/20 [History] methocarbamoL [Robaxin] 500 mg PO BID PRN 03/09/20 [History] rOPINIRole HCL [Requip] 2 mg PO BID 03/09/20 [History] sitaGLIPtin [Januvia] 100 mg PO DAILY 03/09/20 [History] Pantoprazole [Protonix] 40 mg PO BID #0 03/17/20 [Rx] Pregabalin [Lyrica] 200 mg PO BID #6 cap 03/17/20 [Rx] acetaZOLAMIDE [Diamox] 250 mg PO DAILY #30 tablet 03/17/20 [Rx] INSULIN ASPART (NovoLOG) [NovoLOG (formulary)] See Protocol SQ ACHS 03/27/20 [History] Sennosides-Docusate Sodium [Senokot-S] 1 tab PO BID PRN 03/27/20 [History] Metoprolol Tartrate [Lopressor] 100 mg PO BID 05/09/20 [History] Spironolactone [Aldactone] 25 mg PO DAILY 05/09/20 [History] amLODIPine [Norvasc] 5 mg PO DAILY 05/09/20 [History] Bumetanide [BUMEX] 3 mg PO BID #180 tab 05/14/20 [Rx] Follow up Appointment(s)/Referral(s): Yoel Deras MD [Primary Care Provider] - 1 Week [facility], [NON-STAFF] - [facility] [Provider Group] - 2 Weeks Ambulatory/Diagnostic Orders: Complete Blood Count w/diff [LAB.AMB] Location: None Selected Discharge Disposition: HOME WITH HOME HEALTH SERVICES
[2020-05-14] MEDS: SYMBICORT 160-4.5 MCG INHALER INHALATION SCH (08:50)
[2020-05-14 09:24] LABS: Albumin 3.8 g/dL (3.80-4.90); Albumin/Globulin Ratio 1.65 (1.60-3.17); Anion Gap 4.9 mmol/L (4.00-12.00); Calcium 8.9 mg/dL (8.7-10.3); Carbon Dioxide 39.1 mmol/L (21.6-31.8); Globulin 2.3 g/dL (1.6-3.3); Non-African American GFR(CKD) 58.7 (60.0-200.0); Potassium 4.1 mmol/L (3.5-5.5); Total Bilirubin 0.4 mg/dL (0.3-1.2); Total Protein 6.1 g/dL (6.2-8.2)
--- NOTE | 2020-05-14 10:10 | P.PN ---
Subjective Progress Note Date: 05/14/20 This is a 65-year-old female with documented history of GI bleed, anemia, COPD, diabetes, hypertension, hyperlipidemia, nonsmoker, sleep apnea, obesity, who presented to the hospital primarily with symptoms of fairly sudden onset of shortness of breath. Her chest x-ray on presentation here showed congestive heart failure, patient had an echo performed in February which revealed an ejection fraction of 55-60%, moderate aortic stenosis, moderate mitral stenosis. EKG on presentation here showed a normal sinus rhythm with nonspecific ST-T wave changes. Blood pressure 144/60 with a heart rate in the 70s, respirations 20, 97% on 1% nonrebreather . White blood cell count 15.4, hemoglobin 7.6, platelet count 291. Sodium 136, potassium 4.4, BUN 28, creatinine 0.9. BNP level 2019, whitman virus rapid testing was negative. 05/11/2020 Patient seen and examined this morning, diuresing well overnight on IV Lasix. Blood pressure 116/60 with a heart rate in the 80s, 94% on 4 L of oxygen. White blood cell count 17.5, no hemoglobin documented, yesterday's hemoglobin was 7.0 platelet count 240, hematocrit 24.7, sodium 140, potassium 3.6, BUN 39, creatinine 1.2. 05/13/2020 Patient was seen and examined this morning, scheduled for an EGD today. Continues to be on IV Lasix. Blood pressure 138/80 with a heart rate in the 60s, 96% on 4 L of oxygen. White blood cell count 13.0, hemoglobin 9.0, platelet count 218. Sodium 144, potassium 3.7, BUN 25 and creatinine 1.0. 05/14/2020 Patient underwent an EGD yesterday which revealed nonbleeding angiectasia in the proximal jejunum, status post cautery. Normal appearing stomach and duodenum. Let pressure 118/50 with a heart rate in the 60s, 95% on 4 L of oxygen. White blood cell count 14.9, hemoglobin 9.0, platelet count 200. Sodium 140, potassium 4.1, BUN 22, creatinine 1.0. Objective - Vital Signs Vital signs: Vital Signs Temp 97.6 F 05/14/20 04:22 Pulse 64 05/14/20 04:22 Resp 18 05/14/20 04:22 BP 117/54 05/14/20 04:22 Pulse Ox 97 05/14/20 08:50 Intake & Output 05/13/20 05/14/20 05/14/20 18:59 06:59 18:59 Intake Total 250 Output Total 1200 2750 Balance -950 -2750 Weight 109.6 kg 108.3 kg Intake: IV 250 Output: Urine 1200 2750 Uretheral (Raphael) 600 Other: Voiding Method Indwelling Catheter Indwelling Catheter Indwelling Catheter # Bowel Movements 0 - Exam PHYSICAL EXAMINATION: GENERAL: 65-year-old female quite short of breath at the time of my examination HEENT: Head is atraumatic, normocephalic. Pupils equal, round. Sclera anicteric. Conjunctiva are clear. Mucous membranes of the mouth are moist. Neck is supple. There is elevated jugular venous pressure. No carotid bruit is heard. HEART EXAMINATION: Heart S1, S2 systolic murmur heard . CHEST EXAMINATION: Lungs reveal scattered rhonchi, wheezing, decreased air exchange throughout ABDOMEN: Soft, nontender. Bowel sounds are heard. No organomegaly noted. EXTREMITIES: 2+ peripheral pulses with no evidence of peripheral edema and no calf tenderness noted. NEUROLOGIC patient is awake, alert and oriented 3 . - Labs CBC & Chem 7: 05/14/20 06:35 05/14/20 06:35 Labs: Abnormal Lab Results - Last 24 Hours (Table) 05/13/20 05/13/20 05/13/20 Range/Units 07:23 11:30 16:58 WBC (3.8-10.6) k/uL RBC (3.80-5.40) m/uL Hgb (11.4-16.0) gm/dL Hct (34.0-46.0) % MCH (25.0-35.0) pg MCHC (31.0-37.0) g/dL RDW (11.5-15.5) % Carbon Dioxide 39.1 H (21.6-31.8) mmol/L Est GFR (CKD-EPI)NonAf 58.7 L (60.0-200.0) BUN/Creatinine Ratio 25.00 H (12.00-20.00) Ratio Glucose 130 H (70-110) mg/dL POC Glucose (mg/dL) 102 H 138 H (75-99) mg/dL Alkaline Phosphatase (41-126) U/L Total Protein (6.2-8.2) g/dL 05/13/20 05/13/20 05/14/20 Range/Units 19:47 22:11 06:35 WBC 14.9 H (3.8-10.6) k/uL RBC 3.71 L (3.80-5.40) m/uL Hgb 9.0 L (11.4-16.0) gm/dL Hct 31.8 L (34.0-46.0) % MCH 24.4 L (25.0-35.0) pg MCHC 28.4 L (31.0-37.0) g/dL RDW 20.0 H (11.5-15.5) % Carbon Dioxide (21.6-31.8) mmol/L Est GFR (CKD-EPI)NonAf (60.0-200.0) BUN/Creatinine Ratio (12.00-20.00) Ratio Glucose (70-110) mg/dL POC Glucose (mg/dL) 289 H 226 H (75-99) mg/dL Alkaline Phosphatase (41-126) U/L Total Protein (6.2-8.2) g/dL 05/14/20 05/14/20 Range/Units 06:35 07:18 WBC (3.8-10.6) k/uL RBC (3.80-5.40) m/uL Hgb (11.4-16.0) gm/dL Hct (34.0-46.0) % MCH (25.0-35.0) pg MCHC (31.0-37.0) g/dL RDW (11.5-15.5) % Carbon Dioxide 39.1 H (21.6-31.8) mmol/L Est GFR (CKD-EPI)NonAf 58.7 L (60.0-200.0) BUN/Creatinine Ratio 22.00 H (12.00-20.00) Ratio Glucose 138 H (70-110) mg/dL POC Glucose (mg/dL) 144 H (75-99) mg/dL Alkaline Phosphatase 150 H (41-126) U/L Total Protein 6.1 L (6.2-8.2) g/dL Assessment and Plan Plan: Assessment and plan #1 acute respiratory failure, likely secondary to diastolic congestive heart failure along with COPD exacerbation, possible pneumonia #2 diastolic congestive heart failure acute on chronic #3 moderate to severe aortic stenosis with moderate mitral regurgitation and pulmonary hypertension #4 COPD #5 recent acute GI bleed with significant drop in hemoglobin, requiring blood transfusion #6 type 2 diabetes #7 hypothyroidism #8 hypertension #9 acute on chronic kidney injury Plan We will discontinue the IV Lasix today and change patient over to oral diuretics. Discharged home once cleared by primary, a follow-up appointment in the office post discharge. DNP note has been reviewed, I agree with a documented findings and plan of care. Patient was seen and examined.
--- NOTE | 2020-05-14 12:04 | P.PN ---
Subjective Progress Note Date: 05/14/20 Principal diagnosis: Exacerbation of CHF, anemia The patient is a pleasant 65-year-old female who was admitted to the hospital with exacerbation of CHF and while in the hospital had a drop in her hemoglobin to 6.5 and required 2 units of blood transfusion. The patient has a history of recurrent anemia with GI bleed. She underwent an EGD and push enteroscopy with cautery yesterday. Today she seen and evaluated sitting up at the bedside. She is on a heart healthy diet and tolerating it well. She denies having any bowel movements, denies any signs of bleeding. She has no reported abdominal pain, nausea, or vomiting. Hemoglobin stable today at 9g/dl. Plan is for discharge home today. Objective - Vital Signs Vital signs: Vital Signs Temp 97.6 F 05/14/20 04:22 Pulse 64 05/14/20 04:22 Resp 18 05/14/20 04:22 BP 117/54 05/14/20 04:22 Pulse Ox 97 05/14/20 08:50 Intake & Output 05/13/20 05/14/20 05/14/20 18:59 06:59 18:59 Intake Total 250 Output Total 1200 2750 Balance -950 -2750 Weight 109.6 kg 108.3 kg Intake: IV 250 Output: Urine 1200 2750 Uretheral (Raphael) 600 Other: Voiding Method Indwelling Catheter Indwelling Catheter Indwelling Catheter # Bowel Movements 0 - Exam General appearance: The patient is alert, oriented, in no acute distress. Obese HET: Head is normocephalic and atraumatic. Conjunctiva pink. Sclera anicteric. Neck: Supple without lymphadenopathy. Abdomen: Soft, nontender, nondistended with bowel sounds. No guarding or rigidity. Extremities: Normal skin color and turgor. No pedal edema Neurological: No focal deficits. Alert and oriented 3. - Labs CBC & Chem 7: 05/14/20 06:35 05/14/20 06:35 Labs: Abnormal Lab Results - Last 24 Hours (Table) 05/13/20 05/13/20 05/13/20 Range/Units 07:23 16:58 19:47 WBC (3.8-10.6) k/uL RBC (3.80-5.40) m/uL Hgb (11.4-16.0) gm/dL Hct (34.0-46.0) % MCH (25.0-35.0) pg MCHC (31.0-37.0) g/dL RDW (11.5-15.5) % Carbon Dioxide 39.1 H (21.6-31.8) mmol/L Est GFR (CKD-EPI)NonAf 58.7 L (60.0-200.0) BUN/Creatinine Ratio 25.00 H (12.00-20.00) Ratio Glucose 130 H (70-110) mg/dL POC Glucose (mg/dL) 138 H 289 H (75-99) mg/dL Alkaline Phosphatase (41-126) U/L Total Protein (6.2-8.2) g/dL 05/13/20 05/14/20 05/14/20 Range/Units 22:11 06:35 06:35 WBC 14.9 H (3.8-10.6) k/uL RBC 3.71 L (3.80-5.40) m/uL Hgb 9.0 L (11.4-16.0) gm/dL Hct 31.8 L (34.0-46.0) % MCH 24.4 L (25.0-35.0) pg MCHC 28.4 L (31.0-37.0) g/dL RDW 20.0 H (11.5-15.5) % Carbon Dioxide 39.1 H (21.6-31.8) mmol/L Est GFR (CKD-EPI)NonAf 58.7 L (60.0-200.0) BUN/Creatinine Ratio 22.00 H (12.00-20.00) Ratio Glucose 138 H (70-110) mg/dL POC Glucose (mg/dL) 226 H (75-99) mg/dL Alkaline Phosphatase 150 H (41-126) U/L Total Protein 6.1 L (6.2-8.2) g/dL 05/14/20 Range/Units 07:18 WBC (3.8-10.6) k/uL RBC (3.80-5.40) m/uL Hgb (11.4-16.0) gm/dL Hct (34.0-46.0) % MCH (25.0-35.0) pg MCHC (31.0-37.0) g/dL RDW (11.5-15.5) % Carbon Dioxide (21.6-31.8) mmol/L Est GFR (CKD-EPI)NonAf (60.0-200.0) BUN/Creatinine Ratio (12.00-20.00) Ratio Glucose (70-110) mg/dL POC Glucose (mg/dL) 144 H (75-99) mg/dL Alkaline Phosphatase (41-126) U/L Total Protein (6.2-8.2) g/dL Assessment and Plan Assessment: 1. Severe symptomatic anemia with a drop in hemoglobin to 6.5 requiring 2 units of blood transfusion. Patient has recurrent anemia for the last 1 year with multiple EGDs and colonoscopies. She is status post EGD and push enteroscopy with cautery this admission and examined included nonbleeding angiectasia in the proximal jejunum status post cautery with a normal-appearing stomach and duodenum. 2. Exacerbation of congestive heart failure, gradually improving 2. History of hypothyroidism 4. History of diabetes mellitus and hypertension Plan: 1. Continue with symptomatic and supportive care 2. Monitor CBC daily and transfuse if hemoglobin less than 7 3. Continue Protonix 40 mg daily 4. We will follow with you closely. The impression and plan of care has been dictated as directed. Dr. Pretty Samayoa I performed a history and examination of this patient, discussed the same with the dictator. I agree with the dictator's note ,documented as a scribe. Any additional findings or plans will be noted.
[2020-05-14 12:34] LABS: Glucose,Whole Blood 258 mg/dL (75-99)
[2020-05-15] MEDS ORDERED: BUMETANIDE 1 MG TAB PO SCH (09:00)
--- NOTE | 2020-05-15 10:30 | CDI ---
Documentation Clarification Form Date: 05/15/20 From: Yesika Ware Phone: If you have a question about this query, please contact Dee Dee Bingham, [employer] Business Analyst at [phone] between 8am and 5pm. Admit Date: 05/09/20 Discharge Date: 05/14/20 Patient Name: KEVIN FIGUEREDO Visit Number: [id number] ATTENTION: The Clinical Documentation Specialists (CDI) and [facility] Coding Staff appreciate your assistance in clarifying documentation. Please respond to the clarification below the line at the bottom and electronically sign. The CDI & [facility] Coding staff will review the response and follow-up if needed. Please note: Queries are made part of the Legal Health Record. If you have any questions, please contact the author of this message via ITS. Dear Dr. Yoel Deras, The patient has uncontrolled Type II diabetes, as indicated Dr Pretty Samayoa's consult. POC Glucose: >600, >600, 548, 409, 347, 309, 238, 186, 133, 106,98, 107, 99, 98, 111, 139, 123, 215, 232, 215, 232, 240, 499, 172, 193, 300, 299, 136, 102, 138, 289, 226, 144, 258 Glucose: 321, 580, 122, 131, 130, 138 Hemoglobin A1c - 6.6 Treatment: blood glucose monitoring ACHS, NovoLOG per protocol UNIT SQ ACHS, Levemir 40 units SQ HS, NovoLOG 10 U SQ AC-TID, Per [facility] 2016 - query the provider for clarification whether the patient has hyperglycemia or hypoglycemia so that the appropriate code may be reported - uncontrolled diabetes indicates that the patient's blood sugar is not at an acceptable level, because it is either too high or too low. In order to capture the severity of Illness and necessary documentation specificity, please clarify if Type 2 uncontrolled diabetes is: xx Hyperglycemia Other, please specify Unable to Determine MTDD
== END 2020-05-14 16:28 | disposition home health service (06) | DRG 291 ==
LOC: EC 18:35 → 3SCARD 21:01 → 5NMEDONC 05-12 12:55
PROVIDERS: ADMIT Internal Medicine Geriatric Medicine; ATTEND Internal Medicine Geriatric Medicine
PROC: 5A09457 Assistance with Respiratory Ventilation, 24-96 Consecutive Hours, Continuous Positive Airway Pressure (ICD-10-PCS; principal; 2020-05-09)
PROC: 30233N1 Transfusion of Nonautologous Red Blood Cells into Peripheral Vein, Percutaneous Approach (ICD-10-PCS; 2020-05-11)
PROC: 0D5A8ZZ Destruction of Jejunum, Via Natural or Artificial Opening Endoscopic (ICD-10-PCS; 2020-05-13)
DX: I13.0 Hypertensive heart and chronic kidney disease with heart failure and stage 1 through stage 4 chronic kidney disease, or unspecified chronic kidney disease (principal); J96.21 Acute and chronic respiratory failure with hypoxia; I50.33 Acute on chronic diastolic (congestive) heart failure; J69.0 Pneumonitis due to inhalation of food and vomit; E87.2 Acidosis; N17.9 Acute kidney failure, unspecified; J44.1 Chronic obstructive pulmonary disease with (acute) exacerbation; D62 Acute posthemorrhagic anemia; K92.2 Gastrointestinal hemorrhage, unspecified; Z68.42 Body mass index [BMI] 45.0-49.9, adult; I27.20 Pulmonary hypertension, unspecified; N18.31 Chronic kidney disease, stage 3a; E11.22 Type 2 diabetes mellitus with diabetic chronic kidney disease; E11.40 Type 2 diabetes mellitus with diabetic neuropathy, unspecified; E66.01 Morbid (severe) obesity due to excess calories; Z79.4 Long term (current) use of insulin; I20.9 Angina pectoris, unspecified; Z20.828 Contact with and (suspected) exposure to other viral communicable diseases; K31.819 Angiodysplasia of stomach and duodenum without bleeding; G47.30 Sleep apnea, unspecified; I08.0 Rheumatic disorders of both mitral and aortic valves; E03.9 Hypothyroidism, unspecified; G25.81 Restless legs syndrome; E78.5 Hyperlipidemia, unspecified; K57.90 Diverticulosis of intestine, part unspecified, without perforation or abscess without bleeding; F41.9 Anxiety disorder, unspecified; I25.2 Old myocardial infarction; Z71.3 Dietary counseling and surveillance; Z79.51 Long term (current) use of inhaled steroids; Z79.890 Hormone replacement therapy; Z79.899 Other long term (current) drug therapy; Z87.891 Personal history of nicotine dependence; Z90.710 Acquired absence of both cervix and uterus; Z87.42 Personal history of other diseases of the female genital tract; Z90.49 Acquired absence of other specified parts of digestive tract; Z87.19 Personal history of other diseases of the digestive system; Z98.42 Cataract extraction status, left eye; Z98.41 Cataract extraction status, right eye; Z96.1 Presence of intraocular lens; Z98.890 Other specified postprocedural states; Z98.891 History of uterine scar from previous surgery; Z88.8 Allergy status to other drugs, medicaments and biological substances; Z84.1 Family history of disorders of kidney and ureter; E11.65 Type 2 diabetes mellitus with hyperglycemia
CPT/HCPCS: 36415; 43255; 44360; 51702; 71046; 80048; 80053; 83036; 83605; 83880; 84145; 84484; 85025; 85027; 85610; 85730; 86850; 86900; 86901; 86920; 87635; 93005; 94640; 94660; 94760; 96361; 96374; 96375; 99285

== ENCOUNTER 2020-05-31 17:08 | Inpatient (IN) | payer MEDICARE, OTHER ==
[2020-05-31] MEDS ORDERED: IPRATROPIUM 0.5 MG/2.5 ML NEBU INHALATION STA (17:30)
[2020-05-31] MEDS ORDERED: methylPREDNISolone SOD SUCCI 125 MG/2 ML VIAL IV STA (17:30)
[2020-05-31] MEDS ORDERED: FUROSEMIDE 10 MG/ML 4 ML VIAL IV STA (17:30)
[2020-05-31] MEDS ORDERED: ALBUTEROL NEBULIZED 2.5 MG/3 ML INHALATION STA (17:30)
--- NOTE | 2020-05-31 17:33 | ED ---
General Adult HPI - General Chief complaint: Shortness of Breath Stated complaint: SOB Time Seen by Provider: 05/31/20 17:21 Source: patient, EMS, RN notes reviewed, old records reviewed Mode of arrival: EMS Limitations: no limitations - History of Present Illness Initial comments: 65-year-old female history of COPD, CHF presenting for evaluation of worsening dyspnea over the past 3 days. She does report a mild cough. No chest pain. No fever. Cough is nonproductive. She has bilateral peripheral edema. She was admitted with COPD and CHF approximately one month ago. She denies known exposure to coronavirus. - Related Data Home Medications Medication Instructions Recorded Confirmed Albuterol Inhaler [Ventolin Hfa 1 - 2 puff INHALATION RT-QID PRN 03/09/20 05/09/20 Inhaler] Albuterol Nebulized [Ventolin 2.5 mg INHALATION RT-QID PRN 03/09/20 05/09/20 Nebulized] Atorvastatin [Lipitor] 40 mg PO DAILY 03/09/20 05/09/20 Budesonide-Formot 160-4.5 Mcg 2 puff INHALATION RT-BID 03/09/20 05/09/20 [Symbicort 160-4.5 Mcg Inhaler] FLUoxetine HCL 20 mg PO DAILY 03/09/20 05/09/20 Glimepiride [Amaryl] 2 mg PO DAILY 03/09/20 05/09/20 Insulin Glargine,Hum.rec.anlog 60 units SQ HS 03/09/20 05/09/20 [Toujeo Solostar] Isosorbide Mononitrate ER [Imdur] 30 mg PO DAILY 03/09/20 05/09/20 Levothyroxine Sodium 125 mcg PO DAILY 03/09/20 05/09/20 Montelukast Sodium [Singulair] 10 mg PO HS 03/09/20 05/09/20 Nitroglycerin Sl Tabs [Nitrostat] 0.4 mg SUBLINGUAL Q5M PRN 03/09/20 05/09/20 Potassium Chloride ER [K-Dur 10] 10 meq PO BID 03/09/20 05/09/20 methocarbamoL [Robaxin] 500 mg PO BID PRN 03/09/20 05/09/20 rOPINIRole HCL [Requip] 2 mg PO BID 03/09/20 05/09/20 sitaGLIPtin [Januvia] 100 mg PO DAILY 03/09/20 05/09/20 INSULIN ASPART (NovoLOG) [NovoLOG See Protocol SQ ACHS 03/27/20 05/09/20 (formulary)] Sennosides-Docusate Sodium 1 tab PO BID PRN 03/27/20 05/09/20 [Senokot-S] Metoprolol Tartrate [Lopressor] 100 mg PO BID 05/09/20 05/09/20 Spironolactone [Aldactone] 25 mg PO DAILY 05/09/20 05/09/20 amLODIPine [Norvasc] 5 mg PO DAILY 05/09/20 05/09/20 Previous Rx's Medication Instructions Recorded Pantoprazole [Protonix] 40 mg PO BID #0 03/17/20 Pregabalin [Lyrica] 200 mg PO BID #6 cap 03/17/20 acetaZOLAMIDE [Diamox] 250 mg PO DAILY #30 tablet 03/17/20 Bumetanide [BUMEX] 3 mg PO BID #180 tab 05/14/20 Allergies Allergy/AdvReac Type Severity Reaction Status Date / Time cisatracurium [From Nimbex] Allergy Rash/Hives Verified 05/09/20 22:58 Review of Systems ROS Statement: Those systems with pertinent positive or pertinent negative responses have been documented in the HPI. ROS Other: All systems not noted in ROS Statement are negative. Past Medical History Past Medical History: Heart Failure, COPD, GI Bleed, Respiratory Disorder Additional Past Medical History / Comment(s): heart murmur, neuropathy Last Myocardial Infarction Date:: 2018 History of Any Multi-Drug Resistant Organisms: None Reported Date of last positivie culture/infection: 04/2019 MDRO Source:: URINE Past Surgical History: Section, Cholecystectomy, Heart Catheterization, Hysterectomy, Orthopedic Surgery Additional Past Surgical History / Comment(s): Gi cauterization 02/22/2020; heart cath 12/26/2019; cataracts removal, lens placement. Past Anesthesia/Blood Transfusion Reactions: Previous Problems w/ Anesthesia Additional Past Anesthesia/Blood Transfusion Reaction / Comment(s): ALLERGY TO CISATRACURIUM- FACE TURNED RED/SWOLLEN Past Psychological History: No Psychological Hx Reported Smoking Status: Former smoker Past Alcohol Use History: None Reported Past Drug Use History: None Reported - Past Family History Mother Family Medical History: Renal Disease Additional Family Medical History / Comment(s): Mother was on Hemodilaysis General Exam Limitations: no limitations General appearance: alert, in no apparent distress Head exam: Present: atraumatic, normocephalic Eye exam: Present: periorbital swelling ENT exam: Present: normal exam Neck exam: Present: normal inspection. Absent: tenderness, meningismus Respiratory exam: Present: respiratory distress, wheezes, rales Cardiovascular Exam: Present: regular rate, normal rhythm GI/Abdominal exam: Present: soft. Absent: distended, tenderness, guarding Extremities exam: Present: pedal edema, other (Chronic venous stasis) Neurological exam: Present: alert, oriented X3, CN II-XII intact. Absent: motor sensory deficit Psychiatric exam: Present: normal affect, normal mood Skin exam: Present: warm, dry, intact. Absent: cyanosis, diaphoretic Course Vital Signs 05/31/20 05/31/20 05/31/20 17:27 17:31 17:57 Temperature 98 F Pulse Rate 70 66 Respiratory 20 20 Rate Blood Pressure 128/79 O2 Sat by Pulse 95 Oximetry EKG Findings - EKG Comments: EKG Findings:: EKG: Normal sinus rhythm, rate of 67, IN interval 154, QRS duration 94, QTC 439, no ST segment elevation. Medical Decision Making - Medical Decision Making 65-year-old female presenting with worsening dyspnea, history of COPD, CHF, anemia, on home oxygen. Symptoms have progressed over the past 3 days. No fever. Coronavirus testing is negative. She has a leukocytosis of 15, anemia with hemoglobin 6.8. She is transfused one unit emergency department, given a dose of Lasix, started on IV steroids and albuterol as well as Atrovent. She will be admitted for multifactorial dyspnea including COPD, CHF, and anemia. Case discussed with Dr. Deras who will admit. - Lab Data Result diagrams: 05/31/20 17:40 05/31/20 17:40 Lab Results 05/31/20 05/31/20 05/31/20 Range/Units 17:40 17:40 17:40 WBC 15.2 H (3.8-10.6) k/uL RBC 2.91 L (3.80-5.40) m/uL Hgb 6.8 L* D (11.4-16.0) gm/dL Hct 23.5 L (34.0-46.0) % MCV 80.5 D (80.0-100.0) fL MCH 23.2 L (25.0-35.0) pg MCHC 28.9 L (31.0-37.0) g/dL RDW 18.6 H (11.5-15.5) % Plt Count 421 D (150-450) k/uL MPV 8.0 Neutrophils % (Manual) 87 % Lymphocytes % (Manual) 7 % Monocytes % (Manual) 6 % Neutrophils # (Manual) 13.22 H (1.3-7.7) k/uL Lymphocytes # (Manual) 1.06 (1.0-4.8) k/uL Monocytes # (Manual) 0.91 (0-1.0) k/uL Nucleated RBCs 0 (0-0) /100 WBC Manual Slide Review Performed Large Platelets Present Polychromasia Present Hypochromasia Marked Poikilocytosis Slight Anisocytosis Slight Anisocytosis (manual) Present Microcytosis Slight Target Cells Present Stomatocytes Present PT 9.9 (9.0-12.0) sec INR 0.9 (<1.2) APTT 26.8 (22.0-30.0) sec Sodium 136 L (137-145) mmol/L Potassium 4.7 (3.5-5.1) mmol/L Chloride 98 (98-107) mmol/L Carbon Dioxide 36 H (22-30) mmol/L Anion Gap 2 mmol/L BUN 41 H (7-17) mg/dL Creatinine 0.96 (0.52-1.04) mg/dL Est GFR (CKD-EPI)AfAm 71 (>60 ml/min/1.73 sqM) Est GFR (CKD-EPI)NonAf 62 (>60 ml/min/1.73 sqM) Glucose 161 H (74-99) mg/dL Plasma Lactic Acid Itz (0.7-2.0) mmol/L Calcium 8.7 (8.4-10.2) mg/dL Magnesium 2.4 H (1.6-2.3) mg/dL Total Bilirubin 0.5 (0.2-1.3) mg/dL AST 37 H (14-36) U/L ALT 21 (4-34) U/L Alkaline Phosphatase 124 (38-126) U/L Troponin I (0.000-0.034) ng/mL NT-Pro-B Natriuret Pep pg/mL Total Protein 6.8 (6.3-8.2) g/dL Albumin 3.7 (3.5-5.0) g/dL Coronavirus (PCR) (Not Detectd) 05/31/20 05/31/20 05/31/20 Range/Units 17:40 17:40 17:40 WBC (3.8-10.6) k/uL RBC (3.80-5.40) m/uL Hgb (11.4-16.0) gm/dL Hct (34.0-46.0) % MCV (80.0-100.0) fL MCH (25.0-35.0) pg MCHC (31.0-37.0) g/dL RDW (11.5-15.5) % Plt Count (150-450) k/uL MPV Neutrophils % (Manual) % Lymphocytes % (Manual) % Monocytes % (Manual) % Neutrophils # (Manual) (1.3-7.7) k/uL Lymphocytes # (Manual) (1.0-4.8) k/uL Monocytes # (Manual) (0-1.0) k/uL Nucleated RBCs (0-0) /100 WBC Manual Slide Review Large Platelets Polychromasia Hypochromasia Poikilocytosis Anisocytosis Anisocytosis (manual) Microcytosis Target Cells Stomatocytes PT (9.0-12.0) sec INR (<1.2) APTT (22.0-30.0) sec Sodium (137-145) mmol/L Potassium (3.5-5.1) mmol/L Chloride (98-107) mmol/L Carbon Dioxide (22-30) mmol/L Anion Gap mmol/L BUN (7-17) mg/dL Creatinine (0.52-1.04) mg/dL Est GFR (CKD-EPI)AfAm (>60 ml/min/1.73 sqM) Est GFR (CKD-EPI)NonAf (>60 ml/min/1.73 sqM) Glucose (74-99) mg/dL Plasma Lactic Acid Itz 0.9 (0.7-2.0) mmol/L Calcium (8.4-10.2) mg/dL Magnesium (1.6-2.3) mg/dL Total Bilirubin (0.2-1.3) mg/dL AST (14-36) U/L ALT (4-34) U/L Alkaline Phosphatase (38-126) U/L Troponin I <0.012 (0.000-0.034) ng/mL NT-Pro-B Natriuret Pep 1790 pg/mL Total Protein (6.3-8.2) g/dL Albumin (3.5-5.0) g/dL Coronavirus (PCR) (Not Detectd) 05/31/20 Range/Units 17:40 WBC (3.8-10.6) k/uL RBC (3.80-5.40) m/uL Hgb (11.4-16.0) gm/dL Hct (34.0-46.0) % MCV (80.0-100.0) fL MCH (25.0-35.0) pg MCHC (31.0-37.0) g/dL RDW (11.5-15.5) % Plt Count (150-450) k/uL MPV Neutrophils % (Manual) % Lymphocytes % (Manual) % Monocytes % (Manual) % Neutrophils # (Manual) (1.3-7.7) k/uL Lymphocytes # (Manual) (1.0-4.8) k/uL Monocytes # (Manual) (0-1.0) k/uL Nucleated RBCs (0-0) /100 WBC Manual Slide Review Large Platelets Polychromasia Hypochromasia Poikilocytosis Anisocytosis Anisocytosis (manual) Microcytosis Target Cells Stomatocytes PT (9.0-12.0) sec INR (<1.2) APTT (22.0-30.0) sec Sodium (137-145) mmol/L Potassium (3.5-5.1) mmol/L Chloride (98-107) mmol/L Carbon Dioxide (22-30) mmol/L Anion Gap mmol/L BUN (7-17) mg/dL Creatinine (0.52-1.04) mg/dL Est GFR (CKD-EPI)AfAm (>60 ml/min/1.73 sqM) Est GFR (CKD-EPI)NonAf (>60 ml/min/1.73 sqM) Glucose (74-99) mg/dL Plasma Lactic Acid Itz (0.7-2.0) mmol/L Calcium (8.4-10.2) mg/dL Magnesium (1.6-2.3) mg/dL Total Bilirubin (0.2-1.3) mg/dL AST (14-36) U/L ALT (4-34) U/L Alkaline Phosphatase (38-126) U/L Troponin I (0.000-0.034) ng/mL NT-Pro-B Natriuret Pep pg/mL Total Protein (6.3-8.2) g/dL Albumin (3.5-5.0) g/dL Coronavirus (PCR) Not Detected (Not Detectd) Critical Care Time Critical Care Time: Yes Total Critical Care Time: 35 Disposition Clinical Impression: Congestive heart failure, Acute exacerbation of chronic obstructive pulmonary disease, Anemia Disposition: ADMITTED IP TO THIS [facility] Condition: Stable Is patient prescribed a controlled substance at d/c from ED?: No Referrals: Yoel Deras MD [Primary Care Provider] - 1-2 days Decision to Admit Reason: Admit from EC Decision Date: 05/31/20 Decision Time: 19:23
[2020-05-31 18:02] LABS: Albumin 3.7 g/dL (3.5-5.0); Calcium 8.7 mg/dL (8.4-10.2); Magnesium 2.4 mg/dL (1.6-2.3); Total Bilirubin 0.5 mg/dL (0.2-1.3); Total Protein 6.8 g/dL (6.3-8.2)
[2020-05-31 18:03] LABS: Potassium 4.7 mmol/L (3.5-5.1)
[2020-05-31 18:04] LABS: Anisocytosis Slight; HCT 23.5 % (34.0-46.0); Hypochromasia Marked; INR 0.9 (<1.2); MCH 23.2 pg (25.0-35.0); MCHC 28.9 g/dL (31.0-37.0); Microcytosis Slight; Partial Thromboplastin Time 26.8 sec (22.0-30.0); Poikilocytosis Slight; Prothrombin Time 9.9 sec (9.0-12.0); RBC 2.91 m/uL (3.80-5.40); RDW 18.6 % (11.5-15.5); WBC 15.2 k/uL (3.8-10.6)
[2020-05-31 18:05] LABS: HGB 6.8 gm/dL (11.4-16.0); MCV 80.5 fL (80.0-100.0)
[2020-05-31 18:06] LABS: Platelet Count 421 k/uL (150-450)
--- NOTE | 2020-05-31 18:08 | XR ---
EXAMINATION TYPE: XR chest 1V portable DATE OF EXAM: 05/31/2020 COMPARISON: 01/07/2020 HISTORY: Short of breath. TECHNIQUE: FINDINGS: Heart is slightly enlarged. There is no gross heart failure. There is coarsening of the int erstitial markings. There are large central pulmonary arteries. Thoracic aorta is atheromatous. There is no sign of pleural effusion. IMPRESSION: Pulmonary interstitial infiltrates are improved compared to old exam. No obvious heart failure. There is probably some pulmonary hypertension.
[2020-05-31 18:13] LABS: Anisocytosis (M) Present; Large Platelets Present; Lymphocytes # (M) 1.06 k/uL (1.0-4.8); Monocytes # (M) 0.91 k/uL (0-1.0); Neutrophils # (M) 13.22 k/uL (1.3-7.7); Neutrophils % (M) 87 %; Nucleated Red Blood Cells 0 /100 WBC (0-0); Total Cells Counted 100
[2020-05-31 18:14] LABS: Polychromasia Present; Stomatocytes Present; Target Cells Present
[2020-05-31] MEDS ORDERED: ALBUTEROL NEBULIZED 2.5 MG/3 ML INHALATION PRN ×2 (19:22→22:29)
[2020-05-31] MEDS ORDERED: ALBUTEROL HFA INHALER INHALATION PRN (22:29)
[2020-05-31] MEDS ORDERED: Acetaminophen-Codeine 300-30mg TAB PO PRN (22:29)
[2020-05-31] MEDS ORDERED: SENNOSIDES-DOCUSATE SODIUM 1 EACH TAB PO PRN (22:29)
[2020-05-31] MEDS ORDERED: NITROGLYCERIN SL TABS 0.4 MG TAB SUBLINGUAL PRN (22:29)
[2020-05-31] MEDS ORDERED: methocarbamoL 500 MG TAB PO PRN (22:29)
[2020-06-01] MEDS ORDERED: INSULIN DETEMIR (LEVEMIR) 100 UNIT/ML SYR SQ SCH ×3 (01:00→21:00)
[2020-06-01] MEDS: MONTELUKAST 10 MG TAB PO SCH ×3 (01:02→23:04)
[2020-06-01] MEDS: methylPREDNISolone SOD SUCCI 125 MG/2 ML VIAL IV SCH ×5 (01:03→23:05)
[2020-06-01] MEDS: PANTOPRAZOLE 40 MG TABLET PO SCH ×3 (01:03→23:04)
[2020-06-01 01:12] LABS: Anisocytosis Slight; HGB 7.3 gm/dL (11.4-16.0); Hypochromasia Marked; MCH 22.8 pg (25.0-35.0); MCV 84.3 fL (80.0-100.0); Mean Platelet Volume 7.9; Platelet Count 439 k/uL (150-450); Poikilocytosis Slight; RDW 18.2 % (11.5-15.5); WBC 14.7 k/uL (3.8-10.6)
[2020-06-01] MEDS: PREGABALIN 100 MG CAP PO SCH ×3 (01:22→23:04)
[2020-06-01 01:37] LABS: Band Neutrophils % 1 %; Eosinophils # (M) 0.15 k/uL (0-0.7); Lymphocytes # (M) 1.18 k/uL (1.0-4.8); Monocytes # (M) 0.29 k/uL (0-1.0); Neutrophils % (M) 88 %; Nucleated Red Blood Cells 0 /100 WBC (0-0); Total Cells Counted 100
[2020-06-01 01:38] LABS: Large Platelets Present
[2020-06-01 04:13] LABS: Glucose,Whole Blood 452 mg/dL (75-99)
[2020-06-01] MEDS: SYMBICORT 160-4.5 MCG INHALER INHALATION SCH ×2 (07:27→19:35)
[2020-06-01 07:42] LABS: Anisocytosis Slight; HCT 25.7 % (34.0-46.0); Hypochromasia Marked; MCH 22.8 pg (25.0-35.0); MCHC 26.7 g/dL (31.0-37.0); MCV 85.5 fL (80.0-100.0); Mean Platelet Volume 8.5; Platelet Count 420 k/uL (150-450); Poikilocytosis Slight; RDW 18.1 % (11.5-15.5); WBC 13.5 k/uL (3.8-10.6)
[2020-06-01 07:46] LABS: HGB 6.9 gm/dL (11.4-16.0)
[2020-06-01 08:10] LABS: Lymphocytes # (M) 0.41 k/uL (1.0-4.8); Metamyelocytes # (M) 0.14 k/uL (0); Metamyelocytes % 1 %; Monocytes # (M) 0.14 k/uL (0-1.0); Neutrophils % (M) 97 %; Nucleated Red Blood Cells 0 /100 WBC (0-0); Stomatocytes Present; Total Cells Counted 200
[2020-06-01] MEDS ORDERED: IPRATROPIUM-ALBUTEROL 3 ML NEB INHALATION PRN (08:14)
[2020-06-01 08:53] LABS: Glucose,Whole Blood 459 mg/dL (75-99)
--- NOTE | 2020-06-01 09:02 | P.CRDCN ---
History of Present Illness Consult date: 06/01/20 History of present illness: CHIEF COMPLAINT: CHF HISTORY OF PRESENT ILLNESS: This is a 65-year old female with a past medical history significant for COPD, former nicotine dependence, hyperlipidemia, hypertension congestive heart failure, and GI bleed. Patient follows in the office with Dr. Yang. We have been asked to see the patient in consultation for CHF. Patient examined this morning at the bedside in the emergency room. Patient states she has been feeling short of breath over the past 2-3 days. She denies chest pain or pressure. She reports lower extremity edema which is chronic for her but states it is slightly worse than normal. Patient also reports having black stools over the past week or so. Patient was hospitalized in February 2020 secondary to CHF. Echocardiogram completed at that time revealed ejection fraction 55-60%, moderate aortic stenosis and moderate mitral stenosis. Patient was also hospitalized in April 2020 for CHF and anemia. She underwent an EGD with Dr. 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 Patient's hemoglobin this morning is 6.9. She is currently receiving RBC transfusion. She received a dose of IV Lasix in the emergency room and has been resumed on her oral Bumex. DIAGNOSTICS: EKG reveals sinus rhythm with no signs of acute ischemia Chest xray pulmonary interstitial infiltrates are improved compared to old exam. No obvious heart failure. There is probably some pulmonary hypertension. Laboratory data: WBC 13.5. Hemoglobin 6.9. Platelet count 420. Sodium 136. Potassium 4.7. BUN 41. Creatinine 0.96. Magnesium 2.4. Troponin negative 1. BNP 1790. Current home cardiac medications include Norvasc 5 mg daily, Aldactone 25 mg daily, metoprolol 100 mg twice a day, Imdur 30 mg daily, Bumex 3 mg twice a day, Lipitor 40 mg daily REVIEW OF SYSTEMS: At the time of my exam: CONSTITUTIONAL: Denies fever or chills. HEENT: Denies blurred vision, vision changes, or eye pain. Denies hemoptysis CARDIOVASCULAR: Denies chest pain, orthopnea, PND or palpitations RESPIRATORY: Reports shortness of breath. GASTROINTESTINAL: Denies abdominal pain. Denies nausea or vomiting. HEMATOLOGIC: Denies bleeding disorders. GENITOURINARY: Denies any blood in urine. SKIN: Denies pruitis. Denies rash. PHYSICAL EXAM: VITAL SIGNS: Reviewed. GENERAL: Well-developed in no acute distress. HEENT: Head is normocephalic. Pupils are equal, round. Sclerae anicteric. Mucous membranes of the mouth are moist. Neck supple. No JVD or thyromegaly LUNGS: Respirations even and unlabored. Lungs diminished with a few scattered crackles. HEART: Regular rate and rhythm. S1 and S2 heard. Systolic murmur noted ABDOMEN: Soft. Nondistended. Nontender. EXTREMITIES: Normal range of motion. No clubbing or cyanosis. Peripheral pulses intact. 1+ bilateral lower extremity edema NEUROLOGIC: Awake and alert. Oriented x 3. ASSESSMENT: Shortness of breath Acute exacerbation of COPD Acute mild exacerbation of chronic diastolic congestive heart failure, EF 55- 60%, BNP 1790 Acute anemia with reports of dark stools at home, status post EGD 05/13/2020 Moderate aortic stenosis and moderate mitral stenosis Moderate pulmonary hypertension Hypertension Hyperlipidemia Diabetes mellitus, type II Former nicotine dependence PLAN: Patient received IV Lasix 1 dose in the emergency room. Patient has been restarted on her home dose of Bumex. Resume additional home cardiac medications No need to repeat echocardiogram as this was performed in February 2020 Patient receiving RBC transfusion. Monitor hemoglobin. GI consulted for further evaluation Pulmonary following. Further recommendations pending patient's course Nurse practitioner note has been reviewed by physician. Signing provider agrees with the documented findings, assessment, and plan of care. Past Medical History Past Medical History: Heart Failure, COPD, GI Bleed, Respiratory Disorder Additional Past Medical History / Comment(s): heart murmur, neuropathy Last Myocardial Infarction Date:: 2018 History of Any Multi-Drug Resistant Organisms: None Reported Date of last positivie culture/infection: 04/2019 MDRO Source:: URINE Past Surgical History: Section, Cholecystectomy, Heart Catheterization, Hysterectomy, Orthopedic Surgery Additional Past Surgical History / Comment(s): Gi cauterization 02/22/2020; heart cath 12/26/2019; cataracts removal, lens placement. Past Anesthesia/Blood Transfusion Reactions: Previous Problems w/ Anesthesia Additional Past Anesthesia/Blood Transfusion Reaction / Comment(s): ALLERGY TO CISATRACURIUM- FACE TURNED RED/SWOLLEN Past Psychological History: No Psychological Hx Reported Smoking Status: Former smoker Past Alcohol Use History: None Reported Past Drug Use History: None Reported - Past Family History Mother Family Medical History: Renal Disease Additional Family Medical History / Comment(s): Mother was on Hemodilaysis Medications and Allergies Home Medications Medication Instructions Recorded Confirmed Type Albuterol Inhaler [Ventolin Hfa 1 - 2 puff INHALATION RT-QID PRN 03/09/20 05/31/20 History Inhaler] Albuterol Nebulized [Ventolin 2.5 mg INHALATION RT-QID PRN 03/09/20 05/31/20 History Nebulized] Atorvastatin [Lipitor] 40 mg PO DAILY 03/09/20 05/31/20 History Budesonide-Formot 160-4.5 Mcg 2 puff INHALATION RT-BID 03/09/20 05/31/20 History [Symbicort 160-4.5 Mcg Inhaler] Glimepiride [Amaryl] 2 mg PO DAILY 03/09/20 05/31/20 History Insulin Glargine,Hum.rec.anlog 60 units SQ HS 03/09/20 05/31/20 History [Touidalia Solostirene] Isosorbide Mononitrate ER [Imdur] 30 mg PO DAILY 03/09/20 05/31/20 History Levothyroxine Sodium 125 mcg PO DAILY 03/09/20 05/31/20 History Montelukast Sodium [Singulair] 10 mg PO HS 03/09/20 05/31/20 History Nitroglycerin Sl Tabs [Nitrostat] 0.4 mg SUBLINGUAL Q5M PRN 03/09/20 05/31/20 History Potassium Chloride ER [K-Dur 10] 10 meq PO BID 03/09/20 05/31/20 History methocarbamoL [Robaxin] 500 mg PO BID PRN 03/09/20 05/31/20 History rOPINIRole HCL [Requip] 2 mg PO BID 03/09/20 05/31/20 History sitaGLIPtin [Januvia] 100 mg PO DAILY 03/09/20 05/31/20 History Pantoprazole [Protonix] 40 mg PO BID #0 03/17/20 05/31/20 Rx Pregabalin [Lyrica] 200 mg PO BID #6 cap 03/17/20 05/31/20 Rx acetaZOLAMIDE [Diamox] 250 mg PO DAILY #30 tablet 03/17/20 05/31/20 Rx Sennosides-Docusate Sodium 1 tab PO BID PRN 03/27/20 05/31/20 History [Senokot-S] Metoprolol Tartrate [Lopressor] 100 mg PO BID 05/09/20 05/31/20 History Spironolactone [Aldactone] 25 mg PO DAILY 05/09/20 05/31/20 History amLODIPine [Norvasc] 5 mg PO DAILY 05/09/20 05/31/20 History Bumetanide [BUMEX] 3 mg PO BID #180 tab 05/14/20 05/31/20 Rx Acetaminophen-Codeine 300-30mg 1 tab PO Q6H PRN 05/31/20 05/31/20 History [Tylenol w/codeine #3] FLUoxetine HCL [PROzac] 20 mg PO DAILY 05/31/20 05/31/20 History Insulin Aspart [NovoLOG Flexpen] See Protocol SQ ACHS 05/31/20 05/31/20 History Allergies Allergy/AdvReac Type Severity Reaction Status Date / Time cisatracurium [From Nimbex] Allergy Rash/Hives Verified 05/31/20 19:40 Physical Exam Vitals: Vital Signs Temp Pulse Resp BP Pulse Ox 06/01/20 07:48 64 20 120/46 97 06/01/20 07:45 98.2 F 63 18 120/46 06/01/20 07:15 97.7 F 68 20 110/52 97 06/01/20 07:05 97.7 F 65 20 112/57 97 06/01/20 06:46 97.7 F 70 20 121/51 98 06/01/20 04:16 97.5 F L 87 18 109/50 99 06/01/20 00:36 99.3 F 89 22 119/55 95 05/31/20 21:48 82 L 05/31/20 19:29 79 05/31/20 19:27 86 22 130/51 99 05/31/20 17:57 66 05/31/20 17:31 20 05/31/20 17:27 98 F 70 20 128/79 95 Intake and Output 05/31/20 06/01/20 06/01/20 22:59 06:59 14:59 Intake Total 0 Balance 0 Intake: Blood Product 0 Rc As-1 Unit 0 [id number] Other: Weight 110.677 kg Results 06/01/20 05:40 05/31/20 17:40 Cardiac Enzymes 05/31/20 05/31/20 Range/Units 17:40 17:40 AST 37 H (14-36) U/L Troponin I <0.012 (0.000-0.034) ng/mL Coagulation 05/31/20 Range/Units 17:40 PT 9.9 (9.0-12.0) sec APTT 26.8 (22.0-30.0) sec CBC 05/31/20 06/01/20 06/01/20 Range/Units 17:40 01:00 05:40 WBC 15.2 H 14.7 H 13.5 H (3.8-10.6) k/uL RBC 2.91 L 3.20 L 3.00 L (3.80-5.40) m/uL Hgb 6.8 L* D 7.3 L 6.9 L* (11.4-16.0) gm/dL Hct 23.5 L 27.0 L 25.7 L (34.0-46.0) % Plt Count 421 D 439 420 (150-450) k/uL Comprehensive Metabolic Panel 05/31/20 Range/Units 17:40 Sodium 136 L (137-145) mmol/L Potassium 4.7 (3.5-5.1) mmol/L Chloride 98 (98-107) mmol/L Carbon Dioxide 36 H (22-30) mmol/L BUN 41 H (7-17) mg/dL Creatinine 0.96 (0.52-1.04) mg/dL Glucose 161 H (74-99) mg/dL Calcium 8.7 (8.4-10.2) mg/dL AST 37 H (14-36) U/L ALT 21 (4-34) U/L Alkaline Phosphatase 124 (38-126) U/L Total Protein 6.8 (6.3-8.2) g/dL Albumin 3.7 (3.5-5.0) g/dL Current Medications Generic Name Dose Route Start Last Admin Trade Name Freq PRN Reason Stop Dose Admin Acetaminophen/Codeine Phosphate 1 each 05/31/20 22:29 Acetaminophen-Codeine 300-30mg Tab PO Q6H PRN Pain Acetazolamide 250 mg 12/06/20 09:00 Acetazolamide 250 Mg Tab PO DAILY [facility] Albuterol/Ipratropium 3 ml 06/01/20 12:00 Ipratropium-Albuterol 3 Ml Neb INHALATION RT-QID [facility]ATH Albuterol/Ipratropium 3 ml 06/01/20 08:14 Ipratropium-Albuterol 3 Ml Neb INHALATION RT-Q2H PRN Shortness Of Breath Or Wheezing Amlodipine Besylate 5 mg 06/01/20 09:00 Amlodipine 5 Mg Tab PO DAILY [facility] Atorvastatin Calcium 40 mg 06/01/20 09:00 Atorvastatin 40 Mg Tab PO DAILY [facility] Budesonide/Formoterol Fumarate 2 puff 06/01/20 08:00 06/01/20 07:27 Symbicort 160-4.5 Mcg Inhaler INHALATION Not Given RT-BID [facility] Bumetanide 3 mg 06/01/20 07:30 Bumetanide 1 Mg Tab PO BID-W/MEALS [facility] Fluoxetine HCl 20 mg 06/01/20 09:00 Fluoxetine Hcl 20 Mg Cap PO DAILY [facility] Insulin Aspart 10 unit 06/01/20 07:30 Insulin Aspart (Novolog) 100 Unit/Ml Vial SQ AC-TID [facility] Insulin Detemir 60 unit 06/01/20 21:00 Insulin Detemir (Levemir) 100 Unit/Ml Syr SQ HS [facility] Isosorbide Mononitrate 30 mg 06/01/20 09:00 Isosorbide Mononitrate Er 30 Mg Tab.Er.24h PO DAILY [facility] Levothyroxine Sodium 125 mcg 06/01/20 06:30 Levothyroxine 125 Mcg Tab PO DAILY@0630 [facility] Linagliptin 5 mg 06/01/20 09:00 Linagliptin 5 Mg Tablet PO DAILY [facility] Methocarbamol 500 mg 05/31/20 22:29 Methocarbamol 500 Mg Tab PO BID PRN Muscle Spasm Methylprednisolone Sodium Succinate 60 mg 06/01/20 00:00 06/01/20 06:50 Methylprednisolone Sod Succi 125 Mg/2 Ml Vial IV 60 mg Q6HR [facility] Administration Metoprolol Tartrate 100 mg 06/01/20 09:00 Metoprolol Tartrate 50 Mg Tab PO BID [facility] Montelukast Sodium 10 mg 06/01/20 01:00 06/01/20 01:02 Montelukast 10 Mg Tab PO 10 mg HS SARATH Administration Nitroglycerin 0.4 mg 05/31/20 22:29 Nitroglycerin Sl Tabs 0.4 Mg Tab SUBLINGUAL Q5M PRN Chest Pain Pantoprazole Sodium 40 mg 06/01/20 01:00 06/01/20 01:03 Pantoprazole 40 Mg Tablet PO 40 mg BID SARATH Administration Potassium Chloride 10 meq 06/01/20 09:00 Potassium Chloride Er 10 Meq Tab.Er.Prt PO BID [facility] Pregabalin 200 mg 06/01/20 01:00 06/01/20 01:22 Pregabalin 100 Mg Cap PO 200 mg BID [facility]ATH Administration Ropinirole HCl 2 mg 06/01/20 01:00 06/01/20 01:21 Ropinirole Hcl 1 Mg Tab PO 2 mg BID [facility]ATH Administration Senna/Docusate Sodium 1 each 05/31/20 22:29 Sennosides-Docusate Sodium 1 Each Tab PO BID PRN Constipation Spironolactone 25 mg 06/01/20 09:00 Spironolactone 25 Mg Tab PO DAILY [facility] Intake and Output 05/31/20 06/01/20 06/01/20 22:59 06:59 14:59 Intake Total 0 Balance 0 Intake: Blood Product 0 Rc As-1 Unit 0 [id number] Other: Weight 110.677 kg 06/01/20 05:40 05/31/20 17:40
[2020-06-01] MEDS: INSULIN ASPART (NovoLOG) 100 UNIT/ML VIAL SQ SCH ×2 (09:25→13:13)
[2020-06-01] MEDS ORDERED: FUROSEMIDE 10 MG/ML 4 ML VIAL IV PRN (09:30)
[2020-06-01] MEDS: BUMETANIDE 1 MG TAB PO SCH ×3 (10:07→21:34)
[2020-06-01] MEDS: LEVOTHYROXINE 125 MCG TAB PO SCH (10:07)
[2020-06-01] MEDS: acetaZOLAMIDE 250 MG TAB PO SCH (10:07)
[2020-06-01] MEDS: LINAGLIPTIN 5 MG TABLET PO SCH (10:08)
[2020-06-01] MEDS: POTASSIUM CHLORIDE ER 10 MEQ TAB.ER.PRT PO SCH ×2 (10:08→23:04)
[2020-06-01] MEDS: GLIMEPIRIDE 2 MG TAB PO SCH (10:08)
[2020-06-01] MEDS: FLUoxetine HCL 20 MG CAP PO SCH (10:09)
[2020-06-01] MEDS: ATORVASTATIN 40 MG TAB PO SCH (10:09)
[2020-06-01] MEDS: METOPROLOL TARTRATE 50 MG TAB PO SCH ×2 (10:09→23:04)
[2020-06-01] MEDS: amLODIPine 5 MG TAB PO SCH (10:09)
[2020-06-01] MEDS: ISOSORBIDE MONONITRATE ER 30 MG TAB.ER.24H PO SCH (10:10)
[2020-06-01] MEDS: SPIRONOLACTONE 25 MG TAB PO SCH (10:10)
--- NOTE | 2020-06-01 10:12 | CONS ---
CONSULTATION PULMONARY/CRITICAL CARE CONSULTATION: DATE OF SERVICE: June 01, 2020. REASON FOR CONSULTATION: Shortness of breath. HISTORY OF PRESENT ILLNESS: This is a 65-year-old female who sees Dr. Deras as a primary. Also sees Cardiology and one of my partners. She has a history of both COPD and CHF. She comes into the hospital with complaints of 3 or 4 days of worsening and shortness of breath. She does admit to a mild cough. No chest pain. No fever. Cough is nonproductive. She does admit to some weight gain and also some lower extremity edema. Again she has not been feeling well for about 3 or 4 days. She denies any fever chills. There is no nausea, vomiting, diarrhea, or abdominal pain. No genitourinary complaints. The patient does have history of sleep apnea and does use BiPAP at home. She has been seen in our office but has not yet had PFTs to determine the severity of her COPD. She was a smoker in the past. HOME MEDICATIONS: Reviewed. She is on Ventolin inhaler, and albuterol updrafts, Lipitor, Symbicort, fluoxetine, Amaryl, Toujeo, Imdur, levothyroxine, Singulair, Nitrostat, potassium chloride, Robaxin, Requip, Januvia, insulin, Senokot, Lopressor, Aldactone, amlodipine, Protonix, Lyrica, Diamox, and Bumex. ALLERGIES: CISATRACURIUM Or NIMBEX. MEDICAL HISTORY: CHF, COPD, GI bleed, heart murmur, neuropathy, sleep apnea, obesity, and hypothyroidism. SURGICAL HISTORY: Includes among other things, , cholecystectomy, heart catheterization, hysterectomy, orthopedic procedures, and cataract surgery. SOCIAL HISTORY: Positive for previous heavy tobacco use. She does not smoke currently. She denies any alcohol use or illicit drug use. FAMILY HISTORY: Positive for mother with chronic kidney disease and need for hemodialysis. REVIEW OF SYSTEMS: CONSTITUTIONAL negative. NEUROLOGIC negative. HEENT negative. CARDIOVASCULAR negative. PULMONARY: Shortness of breath, nonproductive cough, lower extremity edema. GI negative. negative. RHEUMATOLOGIC negative. IMMUNOLOGIC negative. ENDOCRINOLOGIC negative. DERMATOLOGIC negative. Currently, the patient is getting 6 L nasal cannula. She is getting an IV of saline at KVO. She is also getting a unit of blood. PHYSICAL EXAMINATION: VITAL SIGNS: Vital signs include temperature 98.2, heart rate 64, respiratory rate 20, blood pressure 120/46, mean 70 and saturations in the mid to high 90s. GENERAL: Appears in no acute distress. HEENT: Examination is grossly unremarkable. Nasal O2 in place. NECK: Supple. Full range of motion. No adenopathy or thyromegaly. Neck veins are flat. CARDIOVASCULAR: Examination reveals regular rhythm and rate. Heart rate 64. Heart sounds are distant. No murmur. LUNGS: Reveal some bibasilar crackles. No wheezes or rhonchi. ABDOMEN: Obese. Bowel sounds are heard. EXTREMITIES: Extremities reveal 2+ pitting edema. There is some chronic venostasis changes to the lower extremities as well. No cyanosis or clubbing. SKIN: Without rash. NEUROLOGIC: Examination is nonfocal. LABS: Reviewed. White count 13.5, hemoglobin 6.9, hematocrit 25.7, platelet count 420,000. PT/INR, PTT normal. Sodium 136, potassium 4.7, chloride 98. CO2 36. Anion gap is 2. BUN and creatinine were 41 and 0.96. Powell virus testing was negative. Microbiology is negative. Chest x-ray shows a pattern of cardiomegaly and cephalization with bilateral effusions. Current medications include Tylenol with codeine, Diamox, albuterol updrafts, amlodipine, Lipitor, Symbicort, Bumex, Prozac, insulin, Imdur, levothyroxine, Tradjenta, Robaxin, Solu-Medrol, Lopressor, Singulair, nitroglycerin tablets, Protonix, potassium chloride, Lyrica, Requip, Senokot, and Aldactone. ASSESSMENT: 1. Shortness of breath, likely multifactorial, related to underlying fluid overload and chronic obstructive pulmonary disease exacerbation. 2. History of sleep apnea syndrome, maintained on home CPAP. 3. Rule out Pickwickian syndrome. 4. Anemia, currently receiving 1 unit of blood. 5. History of chronic obstructive pulmonary disease, not yet staged. The patient has not yet had PFTs in our office. 6. History of congestive heart failure. 7. History of gastrointestinal bleed. 8. History of diabetic neuropathy. 9. Hyperlipidemia. 10.Hypothyroidism. 11.History of hypertension. PLAN: The patient's albuterol will be discontinued in favor of DuoNeb. The patient is already on Symbicort and steroids. No additional recommendations are made. We will continue to follow. She is currently receiving a unit of blood. She will need diuretics. Cardiology will see the patient as well I am sure. No additional recommendations are made. Once she is discharged from the hospital, she needs to get back into our office for complete PFTs. Additional recommendations and suggestions are forthcoming. Prognosis is guarded. MMODL / IJN: [id number] /
[2020-06-01 10:19] LABS: Albumin 4.2 g/dL (3.80-4.90); Albumin/Globulin Ratio 1.75 (1.60-3.17); Calcium 9.1 mg/dL (8.7-10.3); Globulin 2.4 g/dL (1.6-3.3); Non-African American GFR(CKD) 58.7 (60.0-200.0); Potassium 4.9 mmol/L (3.5-5.5); Total Bilirubin 0.3 mg/dL (0.3-1.2); Total Protein 6.6 g/dL (6.2-8.2)
[2020-06-01 10:52] LABS: Appearance,Urine Clear (Clear); Bilirubin,Urine Negative (Negative); Blood,Urine Negative (Negative); Color,Urine Light Yellow; Glucose,Urine (UA) 4+ (Negative); Ketones,Urine Negative (Negative); Leukocyte Esterase,Urine Negative (Negative); Nitrite,Urine Negative (Negative); PH, Urine 6.5 (5.0-8.0); Protein,Urine Negative (Negative); Specific Gravity,Urine 1.013 (1.001-1.035); Urobilinogen,Urine <2.0 mg/dL (<2.0)
[2020-06-01] MEDS: IPRATROPIUM-ALBUTEROL 3 ML NEB INHALATION SCH ×3 (11:07→19:34)
[2020-06-01 12:16] LABS: Glucose,Whole Blood 525 mg/dL (75-99)
--- NOTE | 2020-06-01 12:18 | P.HPIM ---
History of Present Illness H&P Date: 06/01/20 HISTORY OF PRESENT ILLNESS This is a 65-year-old female patient of Dr. Deras with past medical history of diabetes mellitus type 2, diabetic neuropathy, COPD, chronic hypoxic respiratory failure on home O2, hypertension, obstructive sleep apnea, hypothyroidism. Patient has had ongoing problems with GI bleed and was seen by Dr. Nieves GI physician in [place]. She had a capsule endoscopy at the office and found ulcers. Patient underwent an EGD and could not get to all of the ulcers and patient was then transferred to [place] for repeat EGD. This will could not be completed at [place] and patient was subsequently transferred [facility] and she did have some cauterization done and was discharged home. She was hospitalized again on May 09 through May 14 at which time she presented with black stools. She underwent EGD with Dr. 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 She again complains of black stools that started yesterday morning as well as dyspnea for the past 3 days and cough. No chest pain. No sputum production. Mild lower extremity edema. No fever or chills. Patient presented to [facility] emergency center and found to be afebrile, heart rate 70, blood pressure 128/79, pulse ox 95% on 6 L nasal cannula. Hemoglobin was low at 6.8, WBC 15.2. Sodium 136, potassium 4.7, chloride 98, CO2 36, BUN 41, creatinine 0.96, blood sugar 161. Blood sugars were subsequently in the 400s. Urinalysis revealed glucose 4+. No sign of urinary tract infection. Chest x-ray reveals pulmonary interstitial infiltrates improved. No obvious heart failure. Probable some pulmonary hypertension. Patient was ordered for 1 unit of packed RBCs and second unit ordered. Consult in place with GI and pulmonary medicine, cardiology. Patient is waiting for bed on the cardiac stepdown unit. Patient has been seen by cardiology and continued on home medications. Patient was seen by primary medicine and albuterol changed to DuoNeb, continue Symbicort and steroids with plan for follow-up in the office for PFTs. REVIEW OF SYSTEMS Constitutional: No fever, no chills, no night sweats. No weight change. Reports weakness, Reports fatigue. No daytime sleepiness. EENT: No headache. No blurred vision or double vision, no loss of vision. No loss of Hearing, no ringing in the ears, no dizziness. No nasal drainage or congestion. No epistaxis. No sore throat. Lungs: Reports shortness of breath, reports cough, no sputum production. No wheezing. No hemoptysis. Cardiovascular: No chest pain, reports lower extremity edema. No palpitations. No paroxysmal nocturnal dyspnea. No orthopnea. No lightheadedness or dizziness. No syncopal episodes. Abdominal: No abdominal pain. No nausea, vomiting. No diarrhea. No constipation. Reports black stools. Reports loss of appetite. Genitourinary: No dysuria, increased frequency, urgency. No urinary retention. Musculoskeletal: No myalgias. Reports muscle weakness, no gait dysfunction, no frequent falls. No back pain. No neck pain. Integumentary: No wounds, no lesions. No rash or pruritus. No unusual bruising. No change in hair or nails. Neurologic: No aphasia. No facial droop. No change in mentation. No head injury. No headache. No paralysis. No paresthesia. Psychiatric: No depression. No anxiety. No mood swings. Endocrine: No abnormal blood sugars. No weight change. No excessive sweating or thirst. No cold intolerance. SOCIAL HISTORY Patient was a smoker one pack per day for 30-40 years and quit 6 years ago. She did resume smoking 2 years ago and quit 2-1/2 months ago. No alcohol, marijuana or illicit drug use. Patient does not have oxygen at home. Patient does have a BiPAP at home for obstructive sleep apnea and also nebulizer FAMILY HISTORY Mother at age 60 from kidney failure. Father at age 84 from leukemia. Patient has 4 sisters and one has passed from coronary artery disease. Other sisters and 2 brothers have no major medical problems. Patient has 3 children with no major medical problems. PHYSICAL EXAMINATION Gen: This is a 65-year-old female. She is resting and recliner and appears to be comfortable at rest. HEENT: Head is atraumatic, normocephalic. Pupils equal, round. Sclerae is anicteric. Conjunctiva pale. NECK: Supple. No JVD. No lymphadenopathy. No thyromegaly. LUNGS: Bilateral crackles in the bases. No wheezes. No intercostal retractions. HEART: Regular rate and rhythm. Systolic murmur. ABDOMEN: Soft. Bowel sounds are present. No masses. No tenderness. EXTREMITIES: 1+ pedal edema. No calf tenderness. Dorsalis pedis +2 bilaterally. NEUROLOGICAL: Patient is awake, alert and oriented x3. Cranial nerves 2 through 12 are grossly intact. ASSESSMENT AND PLAN 1. Acute on chronic hypoxic respiratory failure requiring increased oxygen therapy secondary to a combination of acute diastolic heart failure, acute COPD exacerbation, acute anemia. Consult with cardiology and pulmonary medicine. Continue DuoNeb treatments 4 times daily and every 2 hours as needed, Symbicort twice daily, Bumex 3 mg twice daily, Solu-Medrol 60 mg IV every 6 hours 2. Acute mild and chronic diastolic heart failure. Patient received 1 dose of IV Lasix and will be receiving another dose after transfusion, continue Bumex 3 mg twice daily, Aldactone 25 mg daily, Diamox 250 mg daily, Lopressor. Cardiology consult appreciated. 3. Acute COPD exacerbation. Continue as in #1. 4. Acute on chronic GI bleed with acute blood loss anemia. Patient has been transfused 1 unit of packed RBCs last evening and a second unit will be added for today. Consult with GI. Protonix 40 mg oral twice daily. 5. Diabetes mellitus type 2 with diabetic neuropathy, uncontrolled with hyperglycemia. Continue Levemir 60 units at bedtime, NovoLog 10 units with meals and NovoLog scale, glimepiride 2 mg with breakfast, Tradjenta 5 mg daily, NovoLog scale before meals and at bedtime. 6. Diabetic neuropathy. Continue Lyrica 200 mg twice daily. 7. Hypertension. Continue Norvasc 5 mg daily, Bumex 3 mg twice daily, Lopressor 100 mg twice daily. 8. Hyperlipidemia. Continue Lipitor 40 mg daily. 9. Obstructive sleep apnea. Continue CPAP at night. 10. Restless leg syndrome. Continue Requip 2 mg twice daily. 11. Recurrent depression. Continue Prozac 20 mg daily. 12. GI prophylaxis. Protonix. 12. DVT prophylaxis. SCDs and FILEMON hose. Patient will be admitted to the hospital for a minimum of 2 night stay. Discharge plan: Most likely with homecare. Impression and plan of care have been directed as dictated by the signing physician. Clarice Colón nurse practitioner acting as scribe for signing physician. Past Medical History Past Medical History: Heart Failure, COPD, GI Bleed, Respiratory Disorder Additional Past Medical History / Comment(s): heart murmur, neuropathy Last Myocardial Infarction Date:: 2018 History of Any Multi-Drug Resistant Organisms: None Reported Date of last positivie culture/infection: 04/2019 MDRO Source:: URINE Past Surgical History: Section, Cholecystectomy, Heart Catheterization, Hysterectomy, Orthopedic Surgery Additional Past Surgical History / Comment(s): Gi cauterization 02/22/2020; heart cath 12/26/2019; cataracts removal, lens placement. Past Anesthesia/Blood Transfusion Reactions: Previous Problems w/ Anesthesia Additional Past Anesthesia/Blood Transfusion Reaction / Comment(s): ALLERGY TO CISATRACURIUM- FACE TURNED RED/SWOLLEN Past Psychological History: No Psychological Hx Reported Smoking Status: Former smoker Past Alcohol Use History: None Reported Past Drug Use History: None Reported - Past Family History Mother Family Medical History: Renal Disease Additional Family Medical History / Comment(s): Mother was on Hemodilaysis Medications and Allergies Home Medications Medication Instructions Recorded Confirmed Type Albuterol Inhaler [Ventolin Hfa 1 - 2 puff INHALATION RT-QID PRN 03/09/20 History Inhaler] Albuterol Nebulized [Ventolin 2.5 mg INHALATION RT-QID PRN 03/09/20 05/31/20 History Nebulized] Atorvastatin [Lipitor] 40 mg PO DAILY 03/09/20 05/31/20 History Budesonide-Formot 160-4.5 Mcg 2 puff INHALATION RT-BID 03/09/20 05/31/20 History [Symbicort 160-4.5 Mcg Inhaler] Glimepiride [Amaryl] 2 mg PO DAILY 03/09/20 05/31/20 History Insulin Glargine,Hum.rec.anlog 60 units SQ HS 03/09/20 05/31/20 History [Toujeo Solostar] Isosorbide Mononitrate ER [Imdur] 30 mg PO DAILY 03/09/20 05/31/20 History Levothyroxine Sodium 125 mcg PO DAILY 03/09/20 05/31/20 History Montelukast Sodium [Singulair] 10 mg PO HS 03/09/20 05/31/20 History Nitroglycerin Sl Tabs [Nitrostat] 0.4 mg SUBLINGUAL Q5M PRN 03/09/20 05/31/20 History Potassium Chloride ER [K-Dur 10] 10 meq PO BID 03/09/20 05/31/20 History methocarbamoL [Robaxin] 500 mg PO BID PRN 03/09/20 05/31/20 History rOPINIRole HCL [Requip] 2 mg PO BID 03/09/20 05/31/20 History sitaGLIPtin [Januvia] 100 mg PO DAILY 03/09/20 05/31/20 History Pantoprazole [Protonix] 40 mg PO BID #0 03/17/20 05/31/20 Rx Pregabalin [Lyrica] 200 mg PO BID #6 cap 03/17/20 05/31/20 Rx acetaZOLAMIDE [Diamox] 250 mg PO DAILY #30 tablet 03/17/20 05/31/20 Rx Sennosides-Docusate Sodium 1 tab PO BID PRN 03/27/20 05/31/20 History [Senokot-S] Metoprolol Tartrate [Lopressor] 100 mg PO BID 05/09/20 05/31/20 History Spironolactone [Aldactone] 25 mg PO DAILY 05/09/20 05/31/20 History amLODIPine [Norvasc] 5 mg PO DAILY 05/09/20 05/31/20 History Bumetanide [BUMEX] 3 mg PO BID #180 tab 05/14/20 05/31/20 Rx Acetaminophen-Codeine 300-30mg 1 tab PO Q6H PRN 05/31/20 05/31/20 History [Tylenol w/codeine #3] FLUoxetine HCL [PROzac] 20 mg PO DAILY 05/31/20 05/31/20 History Insulin Aspart [NovoLOG Flexpen] See Protocol SQ ACHS 05/31/20 05/31/20 History Allergies Allergy/AdvReac Type Severity Reaction Status Date / Time cisatracurium [From Nimbex] Allergy Rash/Hives Verified 05/31/20 19:40 Physical Exam Vitals: Vital Signs Temp Pulse Resp BP Pulse Ox 06/01/20 07:48 64 20 120/46 97 06/01/20 07:45 98.2 F 63 18 120/46 06/01/20 07:15 97.7 F 68 20 110/52 97 06/01/20 07:05 97.7 F 65 20 112/57 97 06/01/20 06:46 97.7 F 70 20 121/51 98 06/01/20 04:16 97.5 F L 87 18 109/50 99 06/01/20 00:36 99.3 F 89 22 119/55 95 05/31/20 21:48 82 L 05/31/20 19:29 79 05/31/20 19:27 86 22 130/51 99 05/31/20 17:57 66 05/31/20 17:31 20 05/31/20 17:27 98 F 70 20 128/79 95 Intake and Output 05/31/20 06/01/20 06/01/20 22:59 06:59 14:59 Intake Total 0 Balance 0 Intake: Blood Product 0 Rc As-1 Unit 0 [id number] Other: Weight 110.677 kg Results CBC & Chem 7: 06/01/20 05:40 06/01/20 05:40 Labs: Abnormal Lab Results - Last 24 Hours (Table) 05/31/20 05/31/20 05/31/20 Range/Units 17:40 17:40 18:16 WBC 15.2 H (3.8-10.6) k/uL RBC 2.91 L (3.80-5.40) m/uL Hgb 6.8 L* D (11.4-16.0) gm/dL Hct 23.5 L (34.0-46.0) % MCH 23.2 L (25.0-35.0) pg MCHC 28.9 L (31.0-37.0) g/dL RDW 18.6 H (11.5-15.5) % Neutrophils # (Manual) 13.22 H (1.3-7.7) k/uL Lymphocytes # (Manual) (1.0-4.8) k/uL Metamyelocytes # (Man) (0) k/uL Sodium 136 L (137-145) mmol/L Carbon Dioxide 36 H (22-30) mmol/L BUN 41 H (7-17) mg/dL Glucose 161 H (74-99) mg/dL POC Glucose (mg/dL) (75-99) mg/dL Magnesium 2.4 H (1.6-2.3) mg/dL AST 37 H (14-36) U/L Crossmatch See Detail Blood Bank Comment Reference Lab Result 05/31/20 06/01/20 06/01/20 Range/Units 20:13 01:00 04:11 WBC 14.7 H (3.8-10.6) k/uL RBC 3.20 L (3.80-5.40) m/uL Hgb 7.3 L (11.4-16.0) gm/dL Hct 27.0 L (34.0-46.0) % MCH 22.8 L (25.0-35.0) pg MCHC 27.0 L (31.0-37.0) g/dL RDW 18.2 H (11.5-15.5) % Neutrophils # (Manual) 13.00 H (1.3-7.7) k/uL Lymphocytes # (Manual) (1.0-4.8) k/uL Metamyelocytes # (Man) (0) k/uL Sodium (137-145) mmol/L Carbon Dioxide (22-30) mmol/L BUN (7-17) mg/dL Glucose (74-99) mg/dL POC Glucose (mg/dL) 452 H (75-99) mg/dL Magnesium (1.6-2.3) mg/dL AST (14-36) U/L Crossmatch See Detail Blood Bank Comment Sent to ReferenceLab A Reference Lab Result See BBK REF Reports A 06/01/20 06/01/20 Range/Units 05:40 08:52 WBC 13.5 H (3.8-10.6) k/uL RBC 3.00 L (3.80-5.40) m/uL Hgb 6.9 L* (11.4-16.0) gm/dL Hct 25.7 L (34.0-46.0) % MCH 22.8 L (25.0-35.0) pg MCHC 26.7 L (31.0-37.0) g/dL RDW 18.1 H (11.5-15.5) % Neutrophils # (Manual) 13.10 H (1.3-7.7) k/uL Lymphocytes # (Manual) 0.41 L (1.0-4.8) k/uL Metamyelocytes # (Man) 0.14 H (0) k/uL Sodium (137-145) mmol/L Carbon Dioxide (22-30) mmol/L BUN (7-17) mg/dL Glucose (74-99) mg/dL POC Glucose (mg/dL) 459 H (75-99) mg/dL Magnesium (1.6-2.3) mg/dL AST (14-36) U/L Crossmatch Blood Bank Comment Reference Lab Result
[2020-06-01] MEDS ORDERED: INSULIN ASPART (NovoLOG) 100 UNIT/ML VIAL SQ SCH (12:30)
[2020-06-01 15:01] LABS: Glucose,Whole Blood 569 mg/dL (75-99)
[2020-06-01] MEDS ORDERED: INSULIN REGULAR BOLUS (FROM DRIP BAG) IV ONE ×2 (15:31→22:41)
[2020-06-01] MEDS ORDERED: INSULIN REGULAR 100 UNIT in SODIUM CHLORIDE 0.9% 100 ML IV SCH (15:45)
[2020-06-01 15:47] LABS: Anisocytosis Slight; HCT 29.9 % (34.0-46.0); HGB 8.3 gm/dL (11.4-16.0); Hypochromasia Marked; MCH 24.4 pg (25.0-35.0); MCHC 27.7 g/dL (31.0-37.0); Mean Platelet Volume 7.6; Platelet Count 383 k/uL (150-450); Poikilocytosis Moderate; WBC 12.6 k/uL (3.8-10.6)
[2020-06-01 16:54] LABS: Glucose,Whole Blood 477 mg/dL (75-99)
[2020-06-01 17:56] LABS: Glucose,Whole Blood 515 mg/dL (75-99)
[2020-06-01 19:29] LABS: Glucose,Whole Blood 480 mg/dL (75-99)
[2020-06-01 20:30] LABS: Glucose,Whole Blood 439 mg/dL (75-99)
[2020-06-01 21:36] LABS: Glucose,Whole Blood 406 mg/dL (75-99)
[2020-06-01 22:13] LABS: Glucose,Whole Blood 406 mg/dL (75-99)
[2020-06-01 22:50] LABS: Glucose,Whole Blood 410 mg/dL (75-99)
[2020-06-01] MEDS: MELATONIN 5 MG TABLET PO PRN (23:04)
[2020-06-02] MEDS ORDERED: INSULIN REGULAR 100 UNIT in SODIUM CHLORIDE 0.9% 100 ML IV SCH (00:45)
[2020-06-02] MEDS: methylPREDNISolone SOD SUCCI 125 MG/2 ML VIAL IV SCH ×2 (05:33→11:40)
[2020-06-02] MEDS: LEVOTHYROXINE 125 MCG TAB PO SCH (05:38)
[2020-06-02 06:58] LABS: Anisocytosis Slight; Basophils % (A) 0 %; Eosinophils % (A) 0 %; HCT 27.3 % (34.0-46.0); HGB 7.8 gm/dL (11.4-16.0); Hypochromasia Marked; Lymphocytes # (A) 0.8 k/uL (1.0-4.8); Lymphocytes % (A) 4 %; MCH 24.1 pg (25.0-35.0); MCHC 28.4 g/dL (31.0-37.0); MCV 84.9 fL (80.0-100.0); Mean Platelet Volume 8.3; Monocytes # (A) 1.1 k/uL (0-1.0); Monocytes % (A) 6 %; Neutrophils # (A) 16.2 k/uL (1.3-7.7); Neutrophils % (A) 89 %; Platelet Count 392 k/uL (150-450); Poikilocytosis Moderate; RBC 3.22 m/uL (3.80-5.40); RDW 17.5 % (11.5-15.5); WBC 18.2 k/uL (3.8-10.6)
[2020-06-02] MEDS: IPRATROPIUM-ALBUTEROL 3 ML NEB INHALATION SCH ×4 (08:24→21:30)
[2020-06-02] MEDS: SYMBICORT 160-4.5 MCG INHALER INHALATION SCH ×2 (08:24→21:30)
[2020-06-02] MEDS: METOPROLOL TARTRATE 50 MG TAB PO SCH ×2 (09:08→21:57)
[2020-06-02] MEDS: SPIRONOLACTONE 25 MG TAB PO SCH (09:08)
[2020-06-02] MEDS: ISOSORBIDE MONONITRATE ER 30 MG TAB.ER.24H PO SCH (09:08)
[2020-06-02] MEDS: LINAGLIPTIN 5 MG TABLET PO SCH (09:08)
[2020-06-02] MEDS: amLODIPine 5 MG TAB PO SCH (09:08)
[2020-06-02] MEDS: POTASSIUM CHLORIDE ER 10 MEQ TAB.ER.PRT PO SCH ×2 (09:09→21:57)
[2020-06-02] MEDS: FLUoxetine HCL 20 MG CAP PO SCH (09:09)
[2020-06-02] MEDS: PREGABALIN 100 MG CAP PO SCH ×2 (09:09→21:57)
[2020-06-02] MEDS: acetaZOLAMIDE 250 MG TAB PO SCH (09:09)
[2020-06-02] MEDS: ATORVASTATIN 40 MG TAB PO SCH (09:09)
[2020-06-02] MEDS: BUMETANIDE 1 MG TAB PO SCH ×2 (09:09→16:59)
[2020-06-02] MEDS: PANTOPRAZOLE 40 MG TABLET PO SCH ×2 (09:09→21:57)
[2020-06-02] MEDS: INSULIN DETEMIR (LEVEMIR) 100 UNIT/ML SYR SQ SCH ×2 (09:15→21:56)
[2020-06-02 09:20] LABS: African American GFR (CKD) 54.5 (60.0-200.0); Albumin 3.9 g/dL (3.80-4.90); Albumin/Globulin Ratio 1.77 (1.60-3.17); Anion Gap 6.5 mmol/L (4.00-12.00); BUN/Creat Ratio 44.17 Ratio (12.00-20.00); Calcium 9.2 mg/dL (8.7-10.3); Carbon Dioxide 34.5 mmol/L (21.6-31.8); Globulin 2.2 g/dL (1.6-3.3); Non-African American GFR(CKD) 47.1 (60.0-200.0); Potassium 4.6 mmol/L (3.5-5.5); Total Bilirubin 0.3 mg/dL (0.2-1.2); Total Protein 6.1 g/dL (6.2-8.2)
--- NOTE | 2020-06-02 10:19 | P.PN ---
<Glo Franco - Last Filed: 06/02/20 10:16> Subjective Progress Note Date: 06/02/20 CHIEF COMPLAINT: CHF HISTORY OF PRESENT ILLNESS: 06/01/2020 This is a 65-year old female with a past medical history significant for COPD, former nicotine dependence, hyperlipidemia, hypertension congestive heart failure, and GI bleed. Patient follows in the office with Dr. Yang. We have been asked to see the patient in consultation for CHF. Patient examined this morning at the bedside in the emergency room. Patient states she has been feeling short of breath over the past 2-3 days. She denies chest pain or pressure. She reports lower extremity edema which is chronic for her but states it is slightly worse than normal. Patient also reports having black stools over the past week or so. Patient was hospitalized in February 2020 secondary to CHF. Echocardiogram completed at that time revealed ejection fraction 55-60%, moderate aortic stenosis and moderate mitral stenosis. Patient was also hospitalized in April 2020 for CHF and anemia. She underwent an EGD with Dr. 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 Patient's hemoglobin this morning is 6.9. She is currently receiving RBC transfusion. She received a dose of IV Lasix in the emergency room and has been resumed on her oral Bumex. 06/02/2020 Patient examined morning at the bedside. She denies chest pain or pressure. She states her shortness of breath is improving. She also reports decreased edema of her lower extremities. Patient received RBC transfusion yesterday. She also received a dose of Lasix after her transfusion. Hemoglobin this morni ng is 7.8. Blood pressure 115/71. Heart rate in the 70s. PHYSICAL EXAM: VITAL SIGNS: Reviewed. GENERAL: Well-developed in no acute distress. HEENT: Head is normocephalic. Pupils are equal, round. Sclerae anicteric. Mucous membranes of the mouth are moist. Neck supple. No JVD or thyromegaly LUNGS: Respirations even and unlabored. Lungs diminished. HEART: Regular rate and rhythm. S1 and S2 heard. Systolic murmur noted ABDOMEN: Soft. Nondistended. Nontender. EXTREMITIES: Normal range of motion. No clubbing or cyanosis. Peripheral pulses intact. 1+ bilateral lower extremity edema NEUROLOGIC: Awake and alert. Oriented x 3. ASSESSMENT: Shortness of breath Acute exacerbation of COPD Acute mild exacerbation of chronic diastolic congestive heart failure, EF 55- 60%, BNP 1790 Acute anemia with reports of dark stools at home, status post EGD 05/13/2020 Moderate aortic stenosis and moderate mitral stenosis Moderate pulmonary hypertension Hypertension Hyperlipidemia Diabetes mellitus, type II Former nicotine dependence PLAN: Continue current cardiac medications No need to repeat echocardiogram as this was performed in February 2020 Monitor hemoglobin. GI consulted for further evaluation Pulmonary following. Continue IV steroids per pulmonary. Further recommendations pending patient's course Nurse practitioner note has been reviewed by physician. Signing provider agrees with the documented findings, assessment, and plan of care. Objective - Vital Signs Vital signs: Vital Signs Temp 97.7 F 06/02/20 07:00 Pulse 68 06/02/20 08:38 Resp 17 06/02/20 07:00 BP 115/71 06/02/20 07:00 Pulse Ox 90 L 06/02/20 07:00 Intake & Output 06/01/20 06/02/20 06/02/20 18:59 06:59 18:59 Intake Total 317.575 71.929 Balance 317.575 71.929 Weight 113.8 kg Intake: Intake, IV Titration 7.575 71.929 Amount Insulin Regular 100 unit 7.575 9.326 In Sodium Chloride 0.9% 100 ml @ Titrate IV .Q0M [facility] Rx#:[id number] Insulin Regular 100 unit 62.603 In Sodium Chloride 0.9% 100 ml @ Titrate IV .Q0M [facility] Rx#:[id number] Blood Product 310 Rc As-1 Unit 0 [id number] Rc As-1 Unit 310 [id number] Other: # Voids 2 # Bowel Movements 1 - Labs CBC & Chem 7: 06/02/20 06:22 06/02/20 06:22 Labs: Abnormal Lab Results - Last 24 Hours (Table) 05/31/20 06/01/20 06/01/20 Range/Units 20:13 05:40 10:24 WBC (3.8-10.6) k/uL RBC (3.80-5.40) m/uL Hgb (11.4-16.0) gm/dL Hct (34.0-46.0) % MCH (25.0-35.0) pg MCHC (31.0-37.0) g/dL RDW (11.5-15.5) % Neutrophils # (1.3-7.7) k/uL Lymphocytes # (1.0-4.8) k/uL Monocytes # (0-1.0) k/uL Carbon Dioxide 34.0 H (21.6-31.8) mmol/L BUN 41.0 H (9.0-27.0) mg/dL Est GFR (CKD-EPI)AfAm (60.0-200.0) Est GFR (CKD-EPI)NonAf 58.7 L (60.0-200.0) BUN/Creatinine Ratio 41.00 H (12.00-20.00) Ratio Glucose 414 H (70-110) mg/dL POC Glucose (mg/dL) (75-99) mg/dL Alkaline Phosphatase 156 H (41-126) U/L Total Protein (6.2-8.2) g/dL Urine Glucose (UA) 4+ H (Negative) Crossmatch See Detail Blood Bank Comment Sent to ReferenceLab A Reference Lab Result See BBK REF Reports A 06/01/20 06/01/20 06/01/20 Range/Units 12:14 14:59 15:19 WBC 12.6 H (3.8-10.6) k/uL RBC 3.40 L (3.80-5.40) m/uL Hgb 8.3 L (11.4-16.0) gm/dL Hct 29.9 L (34.0-46.0) % MCH 24.4 L (25.0-35.0) pg MCHC 27.7 L (31.0-37.0) g/dL RDW 17.0 H (11.5-15.5) % Neutrophils # (1.3-7.7) k/uL Lymphocytes # (1.0-4.8) k/uL Monocytes # (0-1.0) k/uL Carbon Dioxide (21.6-31.8) mmol/L BUN (9.0-27.0) mg/dL Est GFR (CKD-EPI)AfAm (60.0-200.0) Est GFR (CKD-EPI)NonAf (60.0-200.0) BUN/Creatinine Ratio (12.00-20.00) Ratio Glucose (70-110) mg/dL POC Glucose (mg/dL) 525 H 569 H (75-99) mg/dL Alkaline Phosphatase (41-126) U/L Total Protein (6.2-8.2) g/dL Urine Glucose (UA) (Negative) Crossmstch Blood Bank Comment Reference Lab Result 06/01/20 06/01/20 06/01/20 Range/Units 16:52 17:55 19:27 WBC (3.8-10.6) k/uL RBC (3.80-5.40) m/uL Hgb (11.4-16.0) gm/dL Hct (34.0-46.0) % MCH (25.0-35.0) pg MCHC (31.0-37.0) g/dL RDW (11.5-15.5) % Neutrophils # (1.3-7.7) k/uL Lymphocytes # (1.0-4.8) k/uL Monocytes # (0-1.0) k/uL Carbon Dioxide (21.6-31.8) mmol/L BUN (9.0-27.0) mg/dL Est GFR (CKD-EPI)AfAm (60.0-200.0) Est GFR (CKD-EPI)NonAf (60.0-200.0) BUN/Creatinine Ratio (12.00-20.00) Ratio Glucose (70-110) mg/dL POC Glucose (mg/dL) 477 H 515 H 480 H (75-99) mg/dL Alkaline Phosphatase (41-126) U/L Total Protein (6.2-8.2) g/dL Urine Glucose (UA) (Negative) Crossmstch Blood Bank Comment Reference Lab Result 06/01/20 06/01/20 06/01/20 Range/Units 20:19 21:34 22:11 WBC (3.8-10.6) k/uL RBC (3.80-5.40) m/uL Hgb (11.4-16.0) gm/dL Hct (34.0-46.0) % MCH (25.0-35.0) pg MCHC (31.0-37.0) g/dL RDW (11.5-15.5) % Neutrophils # (1.3-7.7) k/uL Lymphocytes # (1.0-4.8) k/uL Monocytes # (0-1.0) k/uL Carbon Dioxide (21.6-31.8) mmol/L BUN (9.0-27.0) mg/dL Est GFR (CKD-EPI)AfAm (60.0-200.0) Est GFR (CKD-EPI)NonAf (60.0-200.0) BUN/Creatinine Ratio (12.00-20.00) Ratio Glucose (70-110) mg/dL POC Glucose (mg/dL) 439 H 406 H 406 H (75-99) mg/dL Alkaline Phosphatase (41-126) U/L Total Protein (6.2-8.2) g/dL Urine Glucose (UA) (Negative) Crossmatch Blood Bank Comment Reference Lab Result 06/01/20 06/02/20 06/02/20 Range/Units 22:48 06:22 06:22 WBC 18.2 H (3.8-10.6) k/uL RBC 3.22 L (3.80-5.40) m/uL Hgb 7.8 L (11.4-16.0) gm/dL Hct 27.3 L (34.0-46.0) % MCH 24.1 L (25.0-35.0) pg MCHC 28.4 L (31.0-37.0) g/dL RDW 17.5 H (11.5-15.5) % Neutrophils # 16.2 H (1.3-7.7) k/uL Lymphocytes # 0.8 L (1.0-4.8) k/uL Monocytes # 1.1 H (0-1.0) k/uL Carbon Dioxide 34.5 H (21.6-31.8) mmol/L BUN 53.0 H (9.0-27.0) mg/dL Est GFR (CKD-EPI)AfAm 54.5 L (60.0-200.0) Est GFR (CKD-EPI)NonAf 47.1 L (60.0-200.0) BUN/Creatinine Ratio 44.17 H (12.00-20.00) Ratio Glucose 236 H (70-110) mg/dL POC Glucose (mg/dL) 410 H (75-99) mg/dL Alkaline Phosphatase 128 H (41-126) U/L Total Protein 6.1 L (6.2-8.2) g/dL Urine Glucose (UA) (Negative) Crossmatch Blood Bank Comment Reference Lab Result <Wilber Schaffer - Last Filed: 06/02/20 17:32> Objective - Vital Signs Vital signs: Vital Signs Temp 97.4 F L 06/02/20 15:00 Pulse 86 06/02/20 15:00 Resp 17 06/02/20 15:00 BP 116/66 06/02/20 15:00 Pulse Ox 91 L 06/02/20 15:00 Intake & Output 06/01/20 06/02/20 06/02/20 18:59 06:59 18:59 Intake Total 317.575 71.929 Balance 317.575 71.929 Weight 113.8 kg Intake: Intake, IV Titration 7.575 71.929 Amount Insulin Regular 100 unit 7.575 9.326 In Sodium Chloride 0.9% 100 ml @ Titrate IV .Q0M [facility] Rx#:[id number] Insulin Regular 100 unit 62.603 In Sodium Chloride 0.9% 100 ml @ Titrate IV .Q0M [facility] Rx#:[id number] Blood Product 310 Rc As-1 Unit 0 [id number] Rc As-1 Unit 310 [id number] Other: # Voids 2 # Bowel Movements 1 - Labs CBC & Chem 7: 06/02/20 06:22 06/02/20 06:22 Labs: Abnormal Lab Results - Last 24 Hours (Table) 06/01/20 06/01/20 06/01/20 Range/Units 17:55 19:27 20:19 WBC (3.8-10.6) k/uL RBC (3.80-5.40) m/uL Hgb (11.4-16.0) gm/dL Hct (34.0-46.0) % MCH (25.0-35.0) pg MCHC (31.0-37.0) g/dL RDW (11.5-15.5) % Neutrophils # (1.3-7.7) k/uL Lymphocytes # (1.0-4.8) k/uL Monocytes # (0-1.0) k/uL Carbon Dioxide (21.6-31.8) mmol/L BUN (9.0-27.0) mg/dL Est GFR (CKD-EPI)AfAm (60.0-200.0) Est GFR (CKD-EPI)NonAf (60.0-200.0) BUN/Creatinine Ratio (12.00-20.00) Ratio Glucose (70-110) mg/dL POC Glucose (mg/dL) 515 H 480 H 439 H (75-99) mg/dL Alkaline Phosphatase (41-126) U/L Total Protein (6.2-8.2) g/dL 06/01/20 06/01/20 06/01/20 Range/Units 21:34 22:11 22:48 WBC (3.8-10.6) k/uL RBC (3.80-5.40) m/uL Hgb (11.4-16.0) gm/dL Hct (34.0-46.0) % MCH (25.0-35.0) pg MCHC (31.0-37.0) g/dL RDW (11.5-15.5) % Neutrophils # (1.3-7.7) k/uL Lymphocytes # (1.0-4.8) k/uL Monocytes # (0-1.0) k/uL Carbon Dioxide (21.6-31.8) mmol/L BUN (9.0-27.0) mg/dL Est GFR (CKD-EPI)AfAm (60.0-200.0) Est GFR (CKD-EPI)NonAf (60.0-200.0) BUN/Creatinine Ratio (12.00-20.00) Ratio Glucose (70-110) mg/dL POC Glucose (mg/dL) 406 H 406 H 410 H (75-99) mg/dL Alkaline Phosphatase (41-126) U/L Total Protein (6.2-8.2) g/dL 06/02/20 06/02/20 Range/Units 06:22 06:22 WBC 18.2 H (3.8-10.6) k/uL RBC 3.22 L (3.80-5.40) m/uL Hgb 7.8 L (11.4-16.0) gm/dL Hct 27.3 L (34.0-46.0) % MCH 24.1 L (25.0-35.0) pg MCHC 28.4 L (31.0-37.0) g/dL RDW 17.5 H (11.5-15.5) % Neutrophils # 16.2 H (1.3-7.7) k/uL Lymphocytes # 0.8 L (1.0-4.8) k/uL Monocytes # 1.1 H (0-1.0) k/uL Carbon Dioxide 34.5 H (21.6-31.8) mmol/L BUN 53.0 H (9.0-27.0) mg/dL Est GFR (CKD-EPI)AfAm 54.5 L (60.0-200.0) Est GFR (CKD-EPI)NonAf 47.1 L (60.0-200.0) BUN/Creatinine Ratio 44.17 H (12.00-20.00) Ratio Glucose 236 H (70-110) mg/dL POC Glucose (mg/dL) (75-99) mg/dL Alkaline Phosphatase 128 H (41-126) U/L Total Protein 6.1 L (6.2-8.2) g/dL
[2020-06-02] MEDS: INSULIN ASPART (NovoLOG) 100 UNIT/ML VIAL SQ SCH ×5 (11:41→21:56)
--- NOTE | 2020-06-02 12:16 | P.PN ---
Subjective Progress Note Date: 06/02/20 65-year-old female patient with a readmission for worsening shortness of breath. She is well-known to us from previous admission. The patient came into the hospital because of increased dyspnea. She also had some mild cough. No chest pain. No fever or chills. She had weight gain and increased lower extremity edema. No nausea. No vomiting. No abdominal pain. She was also having some having black melanotic stools. She has undergone previous. 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 Patient's hemoglobin was down to 6.9. She received a packed RBC transfusion. She was also given IV Lasix in the emergency department and her oral Bumex has been resumed. She has an ejection fraction of 55-60% with moderate degree of aortic stenosis and moderate mitral stenosis. She is known to have various other comorbidities as discussed earlier. She is currently on Bumex 3 mg twice a day and Aldactone 25 mg by mouth daily. She is on IV Solu-Medrol for now at a dose of 60 mg every 6 hours Objective - Vital Signs Vital signs: Vital Signs Temp 97.7 F 06/02/20 07:00 Pulse 68 06/02/20 11:41 Resp 17 06/02/20 07:00 BP 115/71 06/02/20 07:00 Pulse Ox 90 L 06/02/20 07:00 Intake & Output 06/01/20 06/02/20 06/02/20 18:59 06:59 18:59 Intake Total 317.575 71.929 Balance 317.575 71.929 Weight 113.8 kg Intake: Intake, IV Titration 7.575 71.929 Amount Insulin Regular 100 unit 7.575 9.326 In Sodium Chloride 0.9% 100 ml @ Titrate IV .Q0M SARATH Rx#:[id number] Insulin Regular 100 unit 62.603 In Sodium Chloride 0.9% 100 ml @ Titrate IV .Q0M SARATH Rx#:[id number] Blood Product 310 Rc As-1 Unit 0 [id number] Rc As-1 Unit 310 [id number] Other: # Voids 2 # Bowel Movements 1 - Exam GENERAL EXAM: Alert, very pleasant, 65-year-old white female, on 4 L of oxygen a pulse ox 97% comfortable in no apparent distress. HEAD: Normocephalic/atraumatic. EYES: Normal reaction of pupils, equal size. Conjunctiva pink, sclera white. NOSE: Clear with pink turbinates. THROAT: No erythema or exudates. NECK: No masses, no JVD, no thyroid enlargement, no adenopathy. CHEST: No chest wall deformity. Symmetrical expansion. LUNGS: Equal air entry with no crackles, wheeze, rhonchi or dullness. CVS: Regular rate and rhythm, normal S1 and S2, no gallops, no murmurs, no rubs ABDOMEN: Soft, nontender. No hepatosplenomegaly, normal bowel sounds, no guarding or rigidity. EXTREMITIES: No clubbing, 1+ lower extremity edema, no cyanosis, 2+ pulses and upper and lower extremities. MUSCULOSKELETAL: Muscle strength and tone normal. SPINE: No scoliosis or deformity SKIN: No rashes CENTRAL NERVOUS SYSTEM: Alert and oriented -3. No focal deficits, tone is normal in all 4 extremities. PSYCHIATRIC: Alert and oriented -3. Appropriate affect. Intact judgment and insight. - Labs CBC & Chem 7: 06/02/20 06:22 06/02/20 06:22 Labs: Abnormal Lab Results - Last 24 Hours (Table) 05/31/20 06/01/20 06/01/20 Range/Units 20:13 12:14 14:59 WBC (3.8-10.6) k/uL RBC (3.80-5.40) m/uL Hgb (11.4-16.0) gm/dL Hct (34.0-46.0) % MCH (25.0-35.0) pg MCHC (31.0-37.0) g/dL RDW (11.5-15.5) % Neutrophils # (1.3-7.7) k/uL Lymphocytes # (1.0-4.8) k/uL Monocytes # (0-1.0) k/uL Carbon Dioxide (21.6-31.8) mmol/L BUN (9.0-27.0) mg/dL Est GFR (CKD-EPI)AfAm (60.0-200.0) Est GFR (CKD-EPI)NonAf (60.0-200.0) BUN/Creatinine Ratio (12.00-20.00) Ratio Glucose (70-110) mg/dL POC Glucose (mg/dL) 525 H 569 H (75-99) mg/dL Alkaline Phosphatase (41-126) U/L Total Protein (6.2-8.2) g/dL Crossmatch See Detail 06/01/20 06/01/20 06/01/20 Range/Units 15:19 16:52 17:55 WBC 12.6 H (3.8-10.6) k/uL RBC 3.40 L (3.80-5.40) m/uL Hgb 8.3 L (11.4-16.0) gm/dL Hct 29.9 L (34.0-46.0) % MCH 24.4 L (25.0-35.0) pg MCHC 27.7 L (31.0-37.0) g/dL RDW 17.0 H (11.5-15.5) % Neutrophils # (1.3-7.7) k/uL Lymphocytes # (1.0-4.8) k/uL Monocytes # (0-1.0) k/uL Carbon Dioxide (21.6-31.8) mmol/L BUN (9.0-27.0) mg/dL Est GFR (CKD-EPI)AfAm (60.0-200.0) Est GFR (CKD-EPI)NonAf (60.0-200.0) BUN/Creatinine Ratio (12.00-20.00) Ratio Glucose (70-110) mg/dL POC Glucose (mg/dL) 477 H 515 H (75-99) mg/dL Alkaline Phosphatase (41-126) U/L Total Protein (6.2-8.2) g/dL Crossmatch 06/01/20 06/01/20 06/01/20 Range/Units 19:27 20:19 21:34 WBC (3.8-10.6) k/uL RBC (3.80-5.40) m/uL Hgb (11.4-16.0) gm/dL Hct (34.0-46.0) % MCH (25.0-35.0) pg MCHC (31.0-37.0) g/dL RDW (11.5-15.5) % Neutrophils # (1.3-7.7) k/uL Lymphocytes # (1.0-4.8) k/uL Monocytes # (0-1.0) k/uL Carbon Dioxide (21.6-31.8) mmol/L BUN (9.0-27.0) mg/dL Est GFR (CKD-EPI)AfAm (60.0-200.0) Est GFR (CKD-EPI)NonAf (60.0-200.0) BUN/Creatinine Ratio (12.00-.00) Ratio Glucose (70-110) mg/dL POC Glucose (mg/dL) 480 H 439 H 406 H (75-99) mg/dL Alkaline Phosphatase (41-126) U/L Total Protein (6.2-8.2) g/dL Crossmatch 06/01/20 06/01/20 06/02/20 Range/Units 22:11 22:48 06:22 WBC 18.2 H (3.8-10.6) k/uL RBC 3.22 L (3.80-5.40) m/uL Hgb 7.8 L (11.4-16.0) gm/dL Hct 27.3 L (34.0-46.0) % MCH 24.1 L (25.0-35.0) pg MCHC 28.4 L (31.0-37.0) g/dL RDW 17.5 H (11.5-15.5) % Neutrophils # 16.2 H (1.3-7.7) k/uL Lymphocytes # 0.8 L (1.0-4.8) k/uL Monocytes # 1.1 H (0-1.0) k/uL Carbon Dioxide (21.6-31.8) mmol/L BUN (9.0-27.0) mg/dL Est GFR (CKD-EPI)AfAm (60.0-200.0) Est GFR (CKD-EPI)NonAf (60.0-200.0) BUN/Creatinine Ratio (.00-.00) Ratio Glucose (70-110) mg/dL POC Glucose (mg/dL) 406 H 410 H (75-99) mg/dL Alkaline Phosphatase (41-126) U/L Total Protein (6.2-8.2) g/dL Crossmatch 06/02/20 Range/Units 06:22 WBC (3.8-10.6) k/uL RBC (3.80-5.40) m/uL Hgb (11.4-16.0) gm/dL Hct (34.0-46.0) % MCH (25.0-35.0) pg MCHC (31.0-37.0) g/dL RDW (11.5-15.5) % Neutrophils # (1.3-7.7) k/uL Lymphocytes # (1.0-4.8) k/uL Monocytes # (0-1.0) k/uL Carbon Dioxide 34.5 H (21.6-31.8) mmol/L BUN 53.0 H (9.0-27.0) mg/dL Est GFR (CKD-EPI)AfAm 54.5 L (60.0-200.0) Est GFR (CKD-EPI)NonAf 47.1 L (60.0-200.0) BUN/Creatinine Ratio 44.17 H (12.00-20.00) Ratio Glucose 236 H (70-110) mg/dL POC Glucose (mg/dL) (75-99) mg/dL Alkaline Phosphatase 128 H (41-126) U/L Total Protein 6.1 L (6.2-8.2) g/dL Crossmatch Assessment and Plan Plan: #1. Acute on chronic hypoxic respiratory failure related to acute exacerbation of CHF with diastolic dysfunction, responded to diuretics and currently she is on oxygen at 3 L. #2. upper GI bleed, most likely secondary to angiectasia's of the Vietnamese and the patient had undergone a previous EGD and electrocautery back in April 2020. She received a total of 2 units of packed RBC during this current admission and hemoglobin is stable for now. Repeat EGDs to be done tomorrow. #2. Chronic hypoxic rest or a failure related to history of COPD, patient usually wears 2 L of oxygen during the day 3 L of oxygen at night #3. Chronic CHF, with history of valvular disease, we will obtain echocardiogram, patient follows with Dr. Tyson from [place]. The patient has moderate to severe MS and aortic stenosis and please refer to the most recent echocardiogram #4. Acute on chronic anemia, related to GI bleeding and melena, with a recent history of endoscopic evaluation and small bowel capsule endoscopy at [facility] which revealed small bowel bleeding status post cauterization. Status post transfusion with 2 units of packed blood cells #5. Diabetes mellitus 2 diabetic neuropathy #6. Obstructive sleep apnea on CPAP #7. Hypothyroidism #8. History of smoking, currently in remission for last 3 months, patient carries 40 years of smoking of one pack a day #9. Depression Plan: hemoglobin will be monitored Packed RBC transfusion was given an EGD tomorrow She continues to diurese With Bumex and Aldactone We will continue to follow
--- NOTE | 2020-06-02 13:23 | P.PN ---
Subjective Progress Note Date: 06/02/20 HISTORY OF PRESENT ILLNESS This is a 65-year-old female patient of Dr. Deras with past medical history of diabetes mellitus type 2, diabetic neuropathy, COPD, chronic hypoxic respiratory failure on home O2, hypertension, obstructive sleep apnea, hypothyroidism. Patient has had ongoing problems with GI bleed and was seen by Dr. Nieves GI physician in [place]. She had a capsule endoscopy at the office and found ulcers. Patient underwent an EGD and could not get to all of the ulcers and patient was then transferred to [place] for repeat EGD. This will could not be completed at [place] and patient was subsequently transferred [facility] and she did have some cauterization done and was discharged home. She was hospitalized again on May 09 through May 14 at which time she presented with black stools. She underwent EGD with Dr. 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 She again complains of black stools that started yesterday morning as well as dyspnea for the past 3 days and cough. No chest pain. No sputum production. Mild lower extremity edema. No fever or chills. Patient presented to [facility] emergency center and found to be afebrile, heart rate 70, blood pressure 128/79, pulse ox 95% on 6 L nasal cannula. Hemoglobin was low at 6.8, WBC 15.2. Sodium 136, potassium 4.7, chloride 98, CO2 36, BUN 41, creatinine 0.96, blood sugar 161. Blood sugars were subsequently in the 400s. Urinalysis revealed glucose 4+. No sign of urinary tract infection. Chest x-ray reveals pulmonary interstitial infiltrates improved. No obvious heart failure. Probable some pulmonary hypertension. Patient was ordered for 1 unit of packed RBCs and second unit ordered. Consult in place with GI and pulmonary medicine, cardiology. Patient is waiting for bed on the cardiac stepdown unit. Patient has been seen by cardiology and continued on home medications. Patient was seen by primary medicine and albuterol changed to DuoNeb, continue Symbicort and steroids with plan for follow-up in the office for PFTs. 06/02: Patient has been afebrile, heart rate 74, blood pressure 109/57, pulse ox 93% on 3 L nasal cannula. Repeat blood work reveals WBC 18.2, hemoglobin 7.8, platelet count 392. CO2 34, BUN 53, creatinine 1.2. Blood sugar through yesterday was running in the 400s and patient was started on insulin drip. Blood sugars now at 212. We will plan to transition to Levemir 30 units twice daily, NovoLog scheduled 15 units before meals and scale, glimepiride 2 mg with breakfast patient has been seen by GI and is scheduled for EGD tomorrow. Discussed with patient that a permanent solution will need to be determined ve rsus patient having continued repeat EGDs. Patient is status post transfusion 2 units packed RBCs. REVIEW OF SYSTEMS Constitutional: No fever, no chills, no night sweats. No weight change. Reports weakness, Reports fatigue. No daytime sleepiness. EENT: No headache. No blurred vision or double vision, no loss of vision. No loss of Hearing, no ringing in the ears, no dizziness. No epistaxis. No sore throat. Lungs: Reports shortness of breath, reports cough, no sputum production. No wheezing. No hemoptysis. Cardiovascular: No chest pain, reports lower extremity edema. No palpitations. No paroxysmal nocturnal dyspnea. No orthopnea. No lightheadedness or di zziness. No syncopal episodes. Abdominal: No abdominal pain. No nausea, vomiting. No diarrhea. No constipation. Reports black stools. Reports loss of appetite. Genitourinary: No dysuria, increased frequency, urgency. No urinary retention. Musculoskeletal: No myalgias. Reports muscle weakness, no gait dysfunction, no frequent falls. No back pain. No neck pain. Integumentary: No wounds, no lesions. No rash or pruritus. No unusual bruising. No change in hair or nails. Neurologic: No aphasia. No facial droop. No change in mentation. No head injury. No headache. No paralysis. No paresthesia. Psychiatric: No depression. No anxiety. No mood swings. Endocrine: No abnormal blood sugars. No weight change. No excessive sweating or thirst. No cold intolerance. PHYSICAL EXAMINATION Gen: This is a 65-year-old female. She is resting in bed and appears to be comfortable at rest. HEENT: Head is atraumatic, normocephalic. Pupils equal, round. Sclerae is anicteric. Conjunctiva pale. NECK: Supple. No JVD. No lymphadenopathy. No thyromegaly. LUNGS: Bilateral crackles in the bases. No wheezes. No intercostal retractions. HEART: Regular rate and rhythm. Systolic murmur. ABDOMEN: Soft. Bowel sounds are present. No masses. No tenderness. EXTREMITIES: 1+ pedal edema. No calf tenderness. Dorsalis pedis +2 bilaterally. NEUROLOGICAL: Patient is awake, alert and oriented x3. Cranial nerves 2 through 12 are grossly intact. ASSESSMENT AND PLAN 1. Acute on chronic hypoxic respiratory failure requiring increased oxygen therapy secondary to a combination of acute diastolic heart failure, acute COPD exacerbation, acute anemia. Consult with cardiology and pulmonary medicine. Continue DuoNeb treatments 4 times daily and every 2 hours as needed, Symbicort twice daily, Bumex 3 mg twice daily. 2. Acute mild and chronic diastolic heart failure. Patient received 1 dose of IV Lasix and will be receiving another dose after transfusion, continue Bumex 3 mg twice daily, Aldactone 25 mg daily, Diamox 250 mg daily, Lopressor. Cardiology consult appreciated. 3. Acute COPD exacerbation. Continue as in #1. 4. Acute on chronic GI bleed with acute blood loss anemia. Transfuse 2 units packed RBCs. Consult with GI appreciated. Patient scheduled for EGD tomorrow. Continue Protonix 40 mg oral twice daily. 5. Diabetes mellitus type 2 with diabetic neuropathy, uncontrolled with hyperglycemia. Continue Levemir 60 units at bedtime, NovoLog 10 units with meals and NovoLog scale, glimepiride 2 mg with breakfast, Tradjenta 5 mg daily, NovoLog scale before meals and at bedtime. 6. Diabetic neuropathy. Continue Lyrica 200 mg twice daily. 7. Hypertension. Continue Norvasc 5 mg daily, Bumex 3 mg twice daily, Lopressor 100 mg twice daily. 8. Hyperlipidemia. Continue Lipitor 40 mg daily. 9. Obstructive sleep apnea. Continue CPAP at night. 10. Restless leg syndrome. Continue Requip 2 mg twice daily. 11. Recurrent depression. Continue Prozac 20 mg daily. 12. GI prophylaxis. Protonix. 12. DVT prophylaxis. SCDs and FILEMON hose. Discharge plan: Most likely with homecare. Impression and plan of care have been directed as dictated by the signing physician. Clariec Colón nurse practitioner acting as scribe for signing physician. Objective - Vital Signs Vital signs: Vital Signs Temp 97.6 F 06/02/20 03:32 Pulse 74 06/02/20 03:32 Resp 22 06/02/20 03:32 BP 109/57 06/02/20 03:32 Pulse Ox 93 L 06/02/20 03:32 Intake & Output 06/01/20 06/02/20 06/02/20 18:59 06:59 18:59 Intake Total 317.575 71.929 Balance 317.575 71.929 Weight 113.8 kg Intake: Intake, IV Titration 7.575 71.929 Amount Insulin Regular 100 unit 7.575 9.326 In Sodium Chloride 0.9% 100 ml @ Titrate IV .Q0M SARATH Rx#:[id number] Insulin Regular 100 unit 62.603 In Sodium Chloride 0.9% 100 ml @ Titrate IV .Q0M SARATH Rx#:[id number] Blood Product 310 Rc As-1 Unit 0 [id number] Rc As-1 Unit 310 [id number] Other: # Voids 2 - Labs CBC & Chem 7: 06/02/20 06:22 06/02/20 06:22 Labs: Abnormal Lab Results - Last 24 Hours (Table) 05/31/20 06/01/20 06/01/20 Range/Units 20:13 05:40 05:40 WBC (3.8-10.6) k/uL RBC (3.80-5.40) m/uL Hgb (11.4-16.0) gm/dL Hct (34.0-46.0) % MCH (25.0-35.0) pg MCHC (31.0-37.0) g/dL RDW (11.5-15.5) % Neutrophils # (1.3-7.7) k/uL Neutrophils # (Manual) 13.10 H (1.3-7.7) k/uL Lymphocytes # (1.0-4.8) k/uL Lymphocytes # (Manual) 0.41 L (1.0-4.8) k/uL Monocytes # (0-1.0) k/uL Metamyelocytes # (Man) 0.14 H (0) k/uL Carbon Dioxide 34.0 H (21.6-31.8) mmol/L BUN 41.0 H (9.0-27.0) mg/dL Est GFR (CKD-EPI)NonAf 58.7 L (60.0-200.0) BUN/Creatinine Ratio 41.00 H (12.00-20.00) Ratio Glucose 414 H (70-110) mg/dL POC Glucose (mg/dL) (75-99) mg/dL Alkaline Phosphatase 156 H (41-126) U/L Urine Glucose (UA) (Negative) Crossmatch See Detail Blood Bank Comment Sent to [facility] A Reference Lab Result See BBK REF Reports A 06/01/20 06/01/20 06/01/20 Range/Units 08:52 10:24 12:14 WBC (3.8-10.6) k/uL RBC (3.80-5.40) m/uL Hgb (11.4-16.0) gm/dL Hct (34.0-46.0) % MCH (25.0-35.0) pg MCHC (31.0-37.0) g/dL RDW (11.5-15.5) % Neutrophils # (1.3-7.7) k/uL Neutrophils # (Manual) (1.3-7.7) k/uL Lymphocytes # (1.0-4.8) k/uL Lymphocytes # (Manual) (1.0-4.8) k/uL Monocytes # (0-1.0) k/uL Metamyelocytes # (Man) (0) k/uL Carbon Dioxide (21.6-31.8) mmol/L BUN (9.0-27.0) mg/dL Est GFR (CKD-EPI)NonAf (60.0-200.0) BUN/Creatinine Ratio (12.00-20.00) Ratio Glucose (70-110) mg/dL POC Glucose (mg/dL) 459 H 525 H (75-99) mg/dL Alkaline Phosphatase (41-126) U/L Urine Glucose (UA) 4+ H (Negative) Crossmatch Blood Bank Comment Reference Lab Result 06/01/20 06/01/20 06/01/20 Range/Units 14:59 15:19 16:52 WBC 12.6 H (3.8-10.6) k/uL RBC 3.40 L (3.80-5.40) m/uL Hgb 8.3 L (11.4-16.0) gm/dL Hct 29.9 L (34.0-46.0) % MCH 24.4 L (25.0-35.0) pg MCHC 27.7 L (31.0-37.0) g/dL RDW 17.0 H (11.5-15.5) % Neutrophils # (1.3-7.7) k/uL Neutrophils # (Manual) (1.3-7.7) k/uL Lymphocytes # (1.0-4.8) k/uL Lymphocytes # (Manual) (1.0-4.8) k/uL Monocytes # (0-1.0) k/uL Metamyelocytes # (Man) (0) k/uL Carbon Dioxide (21.6-31.8) mmol/L BUN (9.0-27.0) mg/dL Est GFR (CKD-EPI)NonAf (60.0-200.0) BUN/Creatinine Ratio (12.00-20.00) Ratio Glucose (70-110) mg/dL POC Glucose (mg/dL) 569 H 477 H (75-99) mg/dL Alkaline Phosphatase (41-126) U/L Urine Glucose (UA) (Negative) Crossmdtch Blood Bank Comment Reference Lab Result 06/01/20 06/01/20 06/01/20 Range/Units 17:55 19:27 20:19 WBC (3.8-10.6) k/uL RBC (3.80-5.40) m/uL Hgb (11.4-16.0) gm/dL Hct (34.0-46.0) % MCH (25.0-35.0) pg MCHC (31.0-37.0) g/dL RDW (11.5-15.5) % Neutrophils # (1.3-7.7) k/uL Neutrophils # (Manual) (1.3-7.7) k/uL Lymphocytes # (1.0-4.8) k/uL Lymphocytes # (Manual) (1.0-4.8) k/uL Monocytes # (0-1.0) k/uL Metamyelocytes # (Man) (0) k/uL Carbon Dioxide (21.6-31.8) mmol/L BUN (9.0-27.0) mg/dL Est GFR (CKD-EPI)NonAf (60.0-200.0) BUN/Creatinine Ratio (12.00-20.00) Ratio Glucose (70-110) mg/dL POC Glucose (mg/dL) 515 H 480 H 439 H (75-99) mg/dL Alkaline Phosphatase (41-126) U/L Urine Glucose (UA) (Negative) Crossmatch Blood Bank Comment Reference Lab Result 06/01/20 06/01/20 06/01/20 Range/Units 21:34 22:11 22:48 WBC (3.8-10.6) k/uL RBC (3.80-5.40) m/uL Hgb (11.4-16.0) gm/dL Hct (34.0-46.0) % MCH (25.0-35.0) pg MCHC (31.0-37.0) g/dL RDW (11.5-15.5) % Neutrophils # (1.3-7.7) k/uL Neutrophils # (Manual) (1.3-7.7) k/uL Lymphocytes # (1.0-4.8) k/uL Lymphocytes # (Manual) (1.0-4.8) k/uL Monocytes # (0-1.0) k/uL Metamyelocytes # (Man) (0) k/uL Carbon Dioxide (21.6-31.8) mmol/L BUN (9.0-27.0) mg/dL Est GFR (CKD-EPI)NonAf (60.0-200.0) BUN/Creatinine Ratio (12.00-20.00) Ratio Glucose (70-110) mg/dL POC Glucose (mg/dL) 406 H 406 H 410 H (75-99) mg/dL Alkaline Phosphatase (41-126) U/L Urine Glucose (UA) (Negative) Crossmatch Blood Bank Comment Reference Lab Result 06/02/20 Range/Units 06:22 WBC 18.2 H (3.8-10.6) k/uL RBC 3.22 L (3.80-5.40) m/uL Hgb 7.8 L (11.4-16.0) gm/dL Hct 27.3 L (34.0-46.0) % MCH 24.1 L (25.0-35.0) pg MCHC 28.4 L (31.0-37.0) g/dL RDW 17.5 H (11.5-15.5) % Neutrophils # 16.2 H (1.3-7.7) k/uL Neutrophils # (Manual) (1.3-7.7) k/uL Lymphocytes # 0.8 L (1.0-4.8) k/uL Lymphocytes # (Manual) (1.0-4.8) k/uL Monocytes # 1.1 H (0-1.0) k/uL Metamyelocytes # (Man) (0) k/uL Carbon Dioxide (21.6-31.8) mmol/L BUN (9.0-27.0) mg/dL Est GFR (CKD-EPI)NonAf (60.0-200.0) BUN/Creatinine Ratio (12.00-20.00) Ratio Glucose (70-110) mg/dL POC Glucose (mg/dL) (75-99) mg/dL Alkaline Phosphatase (41-126) U/L Urine Glucose (UA) (Negative) Crossmatch Blood Bank Comment Reference Lab Result
[2020-06-02] MEDS ORDERED: MAGNESIUM CITRATE 296 ML BOTTLE PO ONE (17:00)
[2020-06-02] MEDS: MONTELUKAST 10 MG TAB PO SCH (21:57)
[2020-06-02] MEDS: MELATONIN 5 MG TABLET PO PRN (22:00)
[2020-06-03] MEDS: LEVOTHYROXINE 125 MCG TAB PO SCH (00:26)
[2020-06-03 07:00] LABS: Anisocytosis Slight; HCT 27.6 % (34.0-46.0); Hypochromasia Marked; MCH 24.8 pg (25.0-35.0); MCHC 29.2 g/dL (31.0-37.0); MCV 84.9 fL (80.0-100.0); Mean Platelet Volume 8.4; Platelet Count 322 k/uL (150-450); Poikilocytosis Slight; RBC 3.24 m/uL (3.80-5.40); RDW 17.7 % (11.5-15.5)
[2020-06-03] MEDS: INSULIN ASPART (NovoLOG) 100 UNIT/ML VIAL SQ SCH ×7 (08:34→21:23)
[2020-06-03] MEDS: IPRATROPIUM-ALBUTEROL 3 ML NEB INHALATION SCH ×4 (08:46→20:13)
[2020-06-03] MEDS: SYMBICORT 160-4.5 MCG INHALER INHALATION SCH ×2 (08:46→20:13)
[2020-06-03 09:29] LABS: Lymphocytes # (M) 1.39 k/uL (1.0-4.8); Monocytes # (M) 1.39 k/uL (0-1.0); Neutrophils # (M) 12.78 k/uL (1.3-7.7); Neutrophils % (M) 83 %; Nucleated Red Blood Cells 1 /100 WBC (0-0); Total Cells Counted 200; WBC 15.4 k/uL (3.8-10.6)
[2020-06-03 09:30] LABS: Mixed Population RBC Present; Polychromasia Present
[2020-06-03 09:46] LABS: African American GFR (CKD) 60.6 (60.0-200.0); Albumin 3.8 g/dL (3.80-4.90); Albumin/Globulin Ratio 1.73 (1.60-3.17); Anion Gap 4.2 mmol/L (4.00-12.00); BUN/Creat Ratio 42.73 Ratio (12.00-20.00); Carbon Dioxide 38.8 mmol/L (21.6-31.8); Globulin 2.2 g/dL (1.6-3.3); Non-African American GFR(CKD) 52.3 (60.0-200.0); Potassium 4.6 mmol/L (3.5-5.5); Total Bilirubin 0.3 mg/dL (0.2-1.2)
[2020-06-03 11:23] LABS: Glucose,Whole Blood 112 mg/dL (75-99)
--- NOTE | 2020-06-03 11:42 | P.PN ---
Subjective Progress Note Date: 06/03/20 65-year-old female patient with a readmission for worsening shortness of breath. She is well-known to us from previous admission. The patient came into the hospital because of increased dyspnea. She also had some mild cough. No chest pain. No fever or chills. She had weight gain and increased lower extremity edema. No nausea. No vomiting. No abdominal pain. She was also having some having black melanotic stools. She has undergone previous. 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 Patient's hemoglobin was down to 6.9. She received a packed RBC transfusion. She was also given IV Lasix in the emergency department and her oral Bumex has been resumed. She has an ejection fraction of 55-60% with moderate degree of aortic stenosis and moderate mitral stenosis. She is known to have various other comorbidities as discussed earlier. She is currently on Bumex 3 mg twice a day and Aldactone 25 mg by mouth daily. She is on IV Solu-Medrol for now at a dose of 60 mg every 6 hours oon today's evaluation of 06/03/2020, the patient reported that she has someMelanotic stools overnight. Her hemoglobin is stable for now. She is going to undergo an EGD today. The patient is otherwise doing okay. She is on oxygen at 3 L per minute nasal cannula. Legs are less swollen. She is currently on Bumex 3 mg twice a day and Aldactone 25 mg by mouth daily. We'll discontinue the Solu-Medrol yesterday. No nausea. No vomiting. No abdominal pain. Objective - Vital Signs Vital signs: Vital Signs Temp 97.6 F 06/03/20 07:36 Pulse 52 L 06/03/20 08:57 Resp 18 06/03/20 07:40 BP 114/51 06/03/20 07:36 Pulse Ox 100 06/03/20 07:36 Intake & Output 06/02/20 06/03/20 06/03/20 18:59 06:59 18:59 Intake Total 500 Balance 500 Intake: Oral 500 Other: # Bowel Movements 1 - Exam GENERAL EXAM: Alert, very pleasant, 65-year-old white female, on 3 L of oxygen a pulse ox 97% comfortable in no apparent distress. HEAD: Normocephalic/atraumatic. EYES: Normal reaction of pupils, equal size. Conjunctiva pink, sclera white. NOSE: Clear with pink turbinates. THROAT: No erythema or exudates. NECK: No masses, no JVD, no thyroid enlargement, no adenopathy. CHEST: No chest wall deformity. Symmetrical expansion. LUNGS: Equal air entry with no crackles, wheeze, rhonchi or dullness. CVS: Regular rate and rhythm, normal S1 and S2, no gallops, no murmurs, no rubs ABDOMEN: Soft, nontender. No hepatosplenomegaly, normal bowel sounds, no guarding or rigidity. EXTREMITIES: No clubbing, 1+ lower extremity edema, no cyanosis, 2+ pulses and upper and lower extremities. MUSCULOSKELETAL: Muscle strength and tone normal. SPINE: No scoliosis or deformity SKIN: No rashes CENTRAL NERVOUS SYSTEM: Alert and oriented -3. No focal deficits, tone is normal in all 4 extremities. PSYCHIATRIC: Alert and oriented -3. Appropriate affect. Intact judgment and insight. - Labs CBC & Chem 7: 06/03/20 06:10 06/03/20 06:10 Labs: Abnormal Lab Results - Last 24 Hours (Table) 06/03/20 06/03/20 06/03/20 Range/Units 06:10 06:10 11:22 WBC 15.4 H (3.8-10.6) k/uL RBC 3.24 L (3.80-5.40) m/uL Hgb 8.0 L (11.4-16.0) gm/dL Hct 27.6 L (34.0-46.0) % MCH 24.8 L (25.0-35.0) pg MCHC 29.2 L (31.0-37.0) g/dL RDW 17.7 H (11.5-15.5) % Neutrophils # (Manual) 12.78 H (1.3-7.7) k/uL Monocytes # (Manual) 1.39 H (0-1.0) k/uL Nucleated RBCs 1 H (0-0) /100 WBC Carbon Dioxide 38.8 H (21.6-31.8) mmol/L BUN 47.0 H (9.0-27.0) mg/dL Est GFR (CKD-EPI)NonAf 52.3 L (60.0-200.0) BUN/Creatinine Ratio 42.73 H (12.00-20.00) Ratio Glucose 160 H (70-110) mg/dL POC Glucose (mg/dL) 112 H (75-99) mg/dL Total Protein 6.0 L (6.2-8.2) g/dL Assessment and Plan Plan: #1. Acute on chronic hypoxic respiratory failure related to acute exacerbation of CHF with diastolic dysfunction, responded to diuretics and currently she is on oxygen at 3 L.on examination she continues to have some crackles in lung bases and she is on 3 L of oxygen by nasal cannula. #2. upper GI bleed, most likely secondary to angiectasia's of the [place] and the patient had undergone a previous EGD and electrocautery back in April 2020. She received a total of 2 units of packed RBC during this current admission and hemoglobin is stable for now. overnight the patient had some melanotic stool and the patient is awaiting EGD today. She is currently nothing by mouth. #2. Chronic hypoxic rest or a failure related to history of COPD, patient usual ly wears 2 L of oxygen during the day 3 L of oxygen at night #3. Chronic CHF, with history of valvular disease, we will obtain echocardiogram, patient follows with Dr. Tyson from [place]. The patient has moderate to severe MS and aortic stenosis and please refer to the most recent echocardiogram #4. Acute on chronic anemia, related to GI bleeding and melena, with a recent history of endoscopic evaluation and small bowel capsule endoscopy at [facility] which revealed small bowel bleeding status post cauterization. Status post transfusion with 2 units of packed blood cells #5. Diabetes mellitus 2 diabetic neuropathy #6. Obstructive sleep apnea on CPAP #7. Hypothyroidism #8. History of smoking, currently in remission for last 3 months, patient carries 40 years of smoking of one pack a day #9. Depression Plan: hemoglobin will be monitored, hemoglobin is stable and the patient is nothing by mouth awaiting EGD She continues to diurese With Bumex and Aldactone We will continue to follow
--- NOTE | 2020-06-03 12:26 | P.PN ---
Subjective Progress Note Date: 06/03/20 HISTORY OF PRESENT ILLNESS This is a 65-year-old female patient of Dr. Deras with past medical history of diabetes mellitus type 2, diabetic neuropathy, COPD, chronic hypoxic respiratory failure on home O2, hypertension, obstructive sleep apnea, hypothyroidism. Patient has had ongoing problems with GI bleed and was seen by Dr. Nieves GI physician in [place]. She had a capsule endoscopy at the office and found ulcers. Patient underwent an EGD and could not get to all of the ulcers and patient was then transferred to [place] for repeat EGD. This will could not be completed at [place] and patient was subsequently transferred [facility] and she did have some cauterization done and was discharged home. She was hospitalized again on May 09 through May 14 at which time she presented with black stools. She underwent EGD with Dr. 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 She again complains of black stools that started yesterday morning as well as dyspnea for the past 3 days and cough. No chest pain. No sputum production. Mild lower extremity edema. No fever or chills. Patient presented to [facility] emergency center and found to be afebrile, heart rate 70, blood pressure 128/79, pulse ox 95% on 6 L nasal cannula. Hemoglobin was low at 6.8, WBC 15.2. Sodium 136, potassium 4.7, chloride 98, CO2 36, BUN 41, creatinine 0.96, blood sugar 161. Blood sugars were subsequently in the 400s. Urinalysis revealed glucose 4+. No sign of urinary tract infection. Chest x-ray reveals pulmonary interstitial infiltrates improved. No obvious heart failure. Probable some pulmonary hypertension. Patient was ordered for 1 unit of packed RBCs and second unit ordered. Consult in place with GI and pulmonary medicine, cardiology. Patient is waiting for bed on the cardiac stepdown unit. Patient has been seen by cardiology and continued on home medications. Patient was seen by primary medicine and albuterol changed to DuoNeb, continue Symbicort and steroids with plan for follow-up in the office for PFTs. 06/02: Patient has been afebrile, heart rate 74, blood pressure 109/57, pulse ox 93% on 3 L nasal cannula. Repeat blood work reveals WBC 18.2, hemoglobin 7.8, platelet count 392. CO2 34, BUN 53, creatinine 1.2. Blood sugar through yesterday was running in the 400s and patient was started on insulin drip. Blood sugars now at 212. We will plan to transition to Levemir 30 units twice daily, NovoLog scheduled 15 units before meals and scale, glimepiride 2 mg with breakfast patient has been seen by GI and is scheduled for EGD tomorrow. Discussed with patient that a permanent solution will need to be determined ve rsus patient having continued repeat EGDs. Patient is status post transfusion 2 units packed RBCs. 06/03: Patient denies shortness of breath but is currently on oxygen at 3 L nasal cannula with pulse ox of 100%, heart rate 52, afebrile, blood pressure 114/51. Repeat hemoglobin is 8.0 and she is scheduled for EGD today at noon. Leukocytosis is improved at 15.4. CO2 is 38, BUN 47 creatinine 1.1. Blood sugars are significantly improved from yesterday. Insulin held this morning due to nothing by mouth status REVIEW OF SYSTEMS Constitutional: No fever, no chills, no night sweats. No weight change. Reports weakness, Reports fatigue. No daytime sleepiness. EENT: No headache. No blurred vision or double vision, no loss of vision. No loss of Hearing, no ringing in the ears, no dizziness. No epistaxis. No sore throat. Lungs: Reports shortness of breath, reports cough, no sputum production. No wheezing. No hemoptysis. Cardiovascular: No chest pain, reports lower extremity edema. No palpitations. No paroxysmal nocturnal dyspnea. No orthopnea. No lightheadedness or dizziness. No syncopal episodes. Abdominal: No abdominal pain. No nausea, vomiting. No diarrhea. No constipation. Reports black stools. Reports loss of appetite. Genitourinary: No dysuria, increased frequency, urgency. No urinary retention. Musculoskeletal: No myalgias. Reports muscle weakness, no gait dysfunction, no frequent falls. No back pain. No neck pain. Integumentary: No wounds, no lesions. No rash or pruritus. No unusual bruising. No change in hair or nails. Neurologic: No aphasia. No facial droop. No change in mentation. No head injury. No headache. No paralysis. No paresthesia. Psychiatric: No depression. No anxiety. No mood swings. Endocrine: Reports abnormal blood sugars. No weight change. No excessive sweating or thirst. No cold intolerance. PHYSICAL EXAMINATION Gen: This is a 65-year-old female. She is resting in bed and appears to be comfortable at rest. HEENT: Head is atraumatic, normocephalic. Pupils equal, round. Sclerae is anicteric. Conjunctiva pale. NECK: Supple. No JVD. No lymphadenopathy. No thyromegaly. LUNGS: Bilateral crackles in the bases. No wheezes. No intercostal retractions. HEART: Regular rate and rhythm. Systolic murmur. ABDOMEN: Soft. Bowel sounds are present. No masses. No tenderness. EXTREMITIES: 1+ pedal edema. No calf tenderness. Dorsalis pedis +2 bilaterally. NEUROLOGICAL: Patient is awake, alert and oriented x3. Cranial nerves 2 through 12 are grossly intact. ASSESSMENT AND PLAN 1. Acute on chronic hypoxic respiratory failure requiring increased oxygen therapy secondary to a combination of acute diastolic heart failure, acute COPD exacerbation, acute anemia. Consult with cardiology and pulmonary medicine. Continue DuoNeb treatments 4 times daily and every 2 hours as needed, Symbicort twice daily, Bumex 3 mg twice daily. 2. Acute mild and chronic diastolic heart failure. Patient received 1 dose of IV Lasix and will be receiving another dose after transfusion, continue Bumex 3 mg twice daily, Aldactone 25 mg daily, Diamox 250 mg daily, Lopressor. Cardiology consult appreciated. 3. COPD among without exacerbation. Consult with pulmonary medicine appreciated. Tasigna Medrol was discontinued. Continue DuoNeb treatments. 4. Acute on chronic GI bleed with acute blood loss anemia. Status post transfusion of 2 units packed RBCs. Consult with GI appreciated. Patient scheduled for EGD today. Continue Protonix 40 mg oral twice daily. 5. Diabetes mellitus type 2 with diabetic neuropathy, uncontrolled with hyperglycemia. Continue Levemir 60 units at bedtime, NovoLog 10 units with meals and NovoLog scale, glimepiride 2 mg with breakfast, Tradjenta 5 mg daily, NovoLog scale before meals and at bedtime. 6. Diabetic neuropathy. Continue Lyrica 200 mg twice daily. 7. Hypertension. Continue Norvasc 5 mg daily, Bumex 3 mg twice daily, Lopressor 100 mg twice daily. 8. Hyperlipidemia. Continue Lipitor 40 mg daily. 9. Obstructive sleep apnea. Continue CPAP at night. 10. Restless leg syndrome. Continue Requip 2 mg twice daily. 11. Recurrent depression. Continue Prozac 20 mg daily. 12. GI prophylaxis. Protonix. 12. DVT prophylaxis. SCDs and FILEMON hose. Discharge plan: Most likely with homecare. Impression and plan of care have been directed as dictated by the signing phys ician. Clarice Colón nurse practitioner acting as scribe for signing physician. Objective - Vital Signs Vital signs: Vital Signs Temp 97.6 F 06/03/20 07:36 Pulse 50 L 06/03/20 07:36 Resp 18 06/03/20 07:40 BP 114/51 06/03/20 07:36 Pulse Ox 100 06/03/20 07:36 Intake & Output 06/02/20 06/03/20 06/03/20 18:59 06:59 18:59 Intake Total 500 Balance 500 Intake: Oral 500 Other: # Bowel Movements 1 - Labs CBC & Chem 7: 06/03/20 06:10 06/03/20 06:10 Labs: Abnormal Lab Results - Last 24 Hours (Table) 06/02/20 06/03/20 Range/Units 06:22 06:10 WBC 15.6 H (3.8-10.6) k/uL RBC 3.24 L (3.80-5.40) m/uL Hgb 8.0 L (11.4-16.0) gm/dL Hct 27.6 L (34.0-46.0) % MCH 24.8 L (25.0-35.0) pg MCHC 29.2 L (31.0-37.0) g/dL RDW 17.7 H (11.5-15.5) % Carbon Dioxide 34.5 H (21.6-31.8) mmol/L BUN 53.0 H (9.0-27.0) mg/dL Est GFR (CKD-EPI)AfAm 54.5 L (60.0-200.0) Est GFR (CKD-EPI)NonAf 47.1 L (60.0-200.0) BUN/Creatinine Ratio 44.17 H (12.00-20.00) Ratio Glucose 236 H (70-110) mg/dL Alkaline Phosphatase 128 H (41-126) U/L Total Protein 6.1 L (6.2-8.2) g/dL
[2020-06-03] MEDS ORDERED: LIDOCAINE 1% INJ 10MG/ML (20 ML MDV) ONE (12:32)
[2020-06-03] MEDS ORDERED: PROPOFOL 10 MG/ML 20 ML VIAL IV ONE (12:32)
[2020-06-03] MEDS ORDERED: LACTATED RINGERS 1,000 ML IV ONE ×2 (12:33)
--- NOTE | 2020-06-03 12:39 | P.CONS ---
History of Present Illness - Reason for Consult Consult date: 06/02/20 GI bleed Requesting physician: Yoel Deras - Chief Complaint Melena - History of Present Illness 65-year-old female with multiple medical comorbidities including COPD, hyper tension, was a, hypothyroidism, diabetes mellitus, neuropathy who is been seen and undergone extensive evaluation for GI bleeds in the past and presented to the hospital with complaints of weakness and dark-colored stool. 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 She reports a recent episodes of dark colored bowel movements with associated weakness. The patient was found to have an acute fall in her hemoglobin to 6.8 on 05/31/2020 currently at 7.8 status post transfusion. Other laboratory evaluation significant for PBC 18.2, platelet count 392,000, total bilirubin 0.3, alkaline phosphatase 156, AST 16 and ALT 18. Review of Systems REVIEW OF SYSTEMS: CONSTITUTIONAL: Denies any fevers, chills, weight change but she does report fatigue. CARDIOVASCULAR: Denies any chest pain, palpitations high or low blood pressures RESPIRATORY: Denies any shortness of breath, hemoptysis or cough. GENITOURINARY: No dysuria or hematuria. MUSCULOSKELETAL: No weakness reported. SKIN: Denies any new rashes or lesions, jaundice or pallor. PSYCHIATRIC: Denies any depression or anxiety. NEUROLOGY: Denies headache, denies any new focal deficits. EARS/NOSE/THROAT: No recent hearing change, congestion, nasal discharge or sore throat. EYES: No pain in eyes, discharge or change in vision. GASTROINTESTINAL: As per HPI. Past Medical History Past Medical History: Heart Failure, COPD, Diabetes Mellitus, GI Bleed, Respiratory Disorder Additional Past Medical History / Comment(s): heart murmur, neuropathy Last Myocardial Infarction Date:: 2018 History of Any Multi-Drug Resistant Organisms: None Reported Year Discovered:: 04/2019 MDRO Source:: URINE Past Surgical History: Section, Cholecystectomy, Heart Catheterization, Hysterectomy, Orthopedic Surgery Additional Past Surgical History / Comment(s): Gi cauterization 02/22/2020; heart cath 12/26/2019; cataracts removal, lens placement. Past Anesthesia/Blood Transfusion Reactions: Previous Problems w/ Anesthesia Additional Past Anesthesia/Blood Transfusion Reaction / Comm: ALLERGY TO CISATRACURIUM- FACE TURNED RED/SWOLLEN Past Psychological History: No Psychological Hx Reported Smoking Status: Former smoker Past Alcohol Use History: None Reported Past Drug Use History: None Reported - Past Family History Mother Family Medical History: Renal Disease Additional Family Medical History / Comment(s): Mother was on Hemodilaysis Medications and Allergies Home Medications Medication Instructions Recorded Confirmed Type Albuterol Inhaler [Ventolin Hfa 1 - 2 puff INHALATION RT-QID PRN 03/09/20 05/31/20 History Inhaler] Albuterol Nebulized [Ventolin 2.5 mg INHALATION RT-QID PRN 03/09/20 05/31/20 History Nebulized] Atorvastatin [Lipitor] 40 mg PO DAILY 03/09/20 05/31/20 History Budesonide-Formot 160-4.5 Mcg 2 puff INHALATION RT-BID 03/09/20 05/31/20 History [Symbicort 160-4.5 Mcg Inhaler] Glimepiride [Amaryl] 2 mg PO DAILY 03/09/20 05/31/20 History Insulin Glargine,Hum.rec.anlog 60 units SQ HS 03/09/20 05/31/20 History [Toujeo Solostar] Isosorbide Mononitrate ER [Imdur] 30 mg PO DAILY 03/09/20 05/31/20 History Levothyroxine Sodium 125 mcg PO DAILY 03/09/20 05/31/20 History Montelukast Sodium [Singulair] 10 mg PO HS 03/09/20 05/31/20 History Nitroglycerin Sl Tabs [Nitrostat] 0.4 mg SUBLINGUAL Q5M PRN 03/09/20 05/31/20 History Potassium Chloride ER [K-Dur 10] 10 meq PO BID 03/09/20 05/31/20 History methocarbamoL [Robaxin] 500 mg PO BID PRN 03/09/20 05/31/20 History rOPINIRole HCL [Requip] 2 mg PO BID 03/09/20 05/31/20 History sitaGLIPtin [Januvia] 100 mg PO DAILY 03/09/20 05/31/20 History Pantoprazole [Protonix] 40 mg PO BID #0 03/17/20 05/31/20 Rx Pregabalin [Lyrica] 200 mg PO BID #6 cap 03/17/20 05/31/20 Rx acetaZOLAMIDE [Diamox] 250 mg PO DAILY #30 tablet 03/17/20 05/31/20 Rx Sennosides-Docusate Sodium 1 tab PO BID PRN 03/27/20 05/31/20 History [Senokot-S] Metoprolol Tartrate [Lopressor] 100 mg PO BID 05/09/20 05/31/20 History Spironolactone [Aldactone] 25 mg PO DAILY 05/09/20 05/31/20 History amLODIPine [Norvasc] 5 mg PO DAILY 05/09/20 05/31/20 History Bumetanide [BUMEX] 3 mg PO BID #180 tab 05/14/20 05/31/20 Rx Acetaminophen-Codeine 300-30mg 1 tab PO Q6H PRN 05/31/20 05/31/20 History [Tylenol w/codeine #3] FLUoxetine HCL [PROzac] 20 mg PO DAILY 05/31/20 05/31/20 History Insulin Aspart [NovoLOG Flexpen] See Protocol SQ ACHS 05/31/20 05/31/20 History Allergies Allergy/AdvReac Type Severity Reaction Status Date / Time cisatracurium [From Nimbex] Allergy Rash/Hives Verified 05/31/20 19:40 Physical Exam Vitals: Vital Signs Temp Pulse Pulse Resp BP BP Pulse Ox 06/02/20 11:41 68 06/02/20 11:31 68 06/02/20 08:38 68 06/02/20 08:24 72 06/02/20 07:00 97.7 F 67 17 115/71 90 L 06/02/20 03:32 97.6 F 74 22 109/57 93 L 06/01/20 21:36 97.5 F L 69 22 113/58 98 06/01/20 20:20 20 06/01/20 20:00 20 06/01/20 19:43 68 18 06/01/20 19:35 66 16 06/01/20 19:31 87 20 121/67 98 06/01/20 18:22 97.9 F 63 20 125/60 99 06/01/20 15:42 68 16 06/01/20 15:32 68 16 06/01/20 15:13 98.4 F 74 20 121/68 92 L 06/01/20 12:55 98 F 79 20 120/61 Intake and Output 06/01/20 06/02/20 06/02/20 22:59 06:59 14:59 Intake Total 16.901 62.603 Balance 16.901 62.603 Intake: Intake, IV Titration 16.901 62.603 Amount Insulin Regular 100 unit 16.901 In Sodium Chloride 0.9% 100 ml @ Titrate IV .Q0M SARATH Rx#:[id number] Insulin Regular 100 unit 62.603 In Sodium Chloride 0.9% 100 ml @ Titrate IV .Q0M SARATH Rx#:[id number] Other: # Voids 2 # Bowel Movements 1 Weight 110.677 kg 113.8 kg On physical examination, patient appears comfortable in no apparent distress. HEAD: Normocephalic, atraumatic. EYES: No scleral icterus. No conjunctival injection. MOUTH: No lesions, tongue midline. NECK: Trachea midline, no gross abnormalities. CHEST: Decreased air entry in all phelps. HEART: S1-S2 appreciated. ABDOMEN: Soft, obese. Bowel sounds are positive. No organomegaly. No guarding or rigidity. EXTREMITIES: No pedal edema. SKIN: No rashes, no jaundice. NEUROLOGIC: Alert and oriented x3. No focal deficits. Results CBC & Chem 7: 06/03/20 06:10 06/03/20 06:10 Labs: Abnormal Lab Results - Last 24 Hours (Table) 05/31/20 06/01/20 06/01/20 Range/Units 20:13 14:59 15:19 WBC 12.6 H (3.8-10.6) k/uL RBC 3.40 L (3.80-5.40) m/uL Hgb 8.3 L (11.4-16.0) gm/dL Hct 29.9 L (34.0-46.0) % MCH 24.4 L (25.0-35.0) pg MCHC 27.7 L (31.0-37.0) g/dL RDW 17.0 H (11.5-15.5) % Neutrophils # (1.3-7.7) k/uL Lymphocytes # (1.0-4.8) k/uL Monocytes # (0-1.0) k/uL Carbon Dioxide (21.6-31.8) mmol/L BUN (9.0-27.0) mg/dL Est GFR (CKD-EPI)AfAm (60.0-200.0) Est GFR (CKD-EPI)NonAf (60.0-200.0) BUN/Creatinine Ratio (12.00-20.00) Ratio Glucose (70-110) mg/dL POC Glucose (mg/dL) 569 H (75-99) mg/dL Alkaline Phosphatase (41-126) U/L Total Protein (6.2-8.2) g/dL Crossmatch See Detail 06/01/20 06/01/20 06/01/20 Range/Units 16:52 17:55 19:27 WBC (3.8-10.6) k/uL RBC (3.80-5.40) m/uL Hgb (11.4-16.0) gm/dL Hct (34.0-46.0) % MCH (25.0-35.0) pg MCHC (31.0-37.0) g/dL RDW (11.5-15.5) % Neutrophils # (1.3-7.7) k/uL Lymphocytes # (1.0-4.8) k/uL Monocytes # (0-1.0) k/uL Carbon Dioxide (21.6-31.8) mmol/L BUN (9.0-27.0) mg/dL Est GFR (CKD-EPI)AfAm (60.0-200.0) Est GFR (CKD-EPI)NonAf (60.0-200.0) BUN/Creatinine Ratio (12.00-20.00) Ratio Glucose (70-110) mg/dL POC Glucose (mg/dL) 477 H 515 H 480 H (75-99) mg/dL Alkaline Phosphatase (41-126) U/L Total Protein (6.2-8.2) g/dL Crossmatch 06/01/20 06/01/20 06/01/20 Range/Units 20:19 21:34 22:11 WBC (3.8-10.6) k/uL RBC (3.80-5.40) m/uL Hgb (11.4-16.0) gm/dL Hct (34.0-46.0) % MCH (25.0-35.0) pg MCHC (31.0-37.0) g/dL RDW (11.5-15.5) % Neutrophils # (1.3-7.7) k/uL Lymphocytes # (1.0-4.8) k/uL Monocytes # (0-1.0) k/uL Carbon Dioxide (21.6-31.8) mmol/L BUN (9.0-27.0) mg/dL Est GFR (CKD-EPI)AfAm (60.0-200.0) Est GFR (CKD-EPI)NonAf (60.0-200.0) BUN/Creatinine Ratio (12.00-20.00) Ratio Glucose (70-110) mg/dL POC Glucose (mg/dL) 439 H 406 H 406 H (75-99) mg/dL Alkaline Phosphatase (41-126) U/L Total Protein (6.2-8.2) g/dL Crossmatch 06/01/20 06/02/20 06/02/20 Range/Units 22:48 06:22 06:22 WBC 18.2 H (3.8-10.6) k/uL RBC 3.22 L (3.80-5.40) m/uL Hgb 7.8 L (11.4-16.0) gm/dL Hct 27.3 L (34.0-46.0) % MCH 24.1 L (25.0-35.0) pg MCHC 28.4 L (31.0-37.0) g/dL RDW 17.5 H (11.5-15.5) % Neutrophils # 16.2 H (1.3-7.7) k/uL Lymphocytes # 0.8 L (1.0-4.8) k/uL Monocytes # 1.1 H (0-1.0) k/uL Carbon Dioxide 34.5 H (21.6-31.8) mmol/L BUN 53.0 H (9.0-27.0) mg/dL Est GFR (CKD-EPI)AfAm 54.5 L (60.0-200.0) Est GFR (CKD-EPI)NonAf 47.1 L (60.0-200.0) BUN/Creatinine Ratio 44.17 H (12.00-20.00) Ratio Glucose 236 H (70-110) mg/dL POC Glucose (mg/dL) 410 H (75-99) mg/dL Alkaline Phosphatase 128 H (41-126) U/L Total Protein 6.1 L (6.2-8.2) g/dL Crossmatch Assessment and Plan (1) Melena Narrative/Plan: 65-year-old female presenting to the hospital for weakness and shortness of breath with associated melena. She is a known history of GI bleeding and previously underwent endoscopic evaluation on 05/13/2020 with a proximal jejunal angiectasia treated with cautery. She has undergone extensive evaluation with prior endoscoped at outside hospital and was found to be anemic on presentation suspicion for recurrent upper GI bleed evaluation. Current Visit: No Status: Acute Code(s): K92.1 - MELENA SNOMED Code(s): 9803002 (2) GI bleed Current Visit: No Status: Acute Code(s): K92.2 - GASTROINTESTINAL HEMORRHAG E, UNSPECIFIED SNOMED Code(s): 54387462 (3) Arteriovenous malformation of small intestine Current Visit: Yes Status: Acute Priority: High Code(s): K55.20 - ANGIODYSPLASIA OF COLON WITHOUT HEMORRHAGE SNOMED Code(s): 993475845 (4) Anemia associated with acute blood loss Current Visit: No Status: Acute Code(s): D62 - ACUTE POSTHEMORRHAGIC ANEMIA SNOMED Code(s): 716951908 Plan: Supportive care Clear liquid diet Nothing by mouth after midnight Continue to monitor hemoglobin and hematocrit and transfuse as needed Plan for evaluation with upper endoscopy tomorrow, with possible capsule endoscopy pending findings of the exam Continue Protonix therapy Hold anticoagulation therapy at this time Thank you for allowing us to participate in the care of this
--- NOTE | 2020-06-03 13:05 | P.PCN ---
Date of Procedure: 06/03/20 Description of Procedure: BRIEF HISTORY: 65-year-old female with multiple medical comorbidities including COPD, hypertension, was a, hypothyroidism, diabetes mellitus, neuropathy who is been seen and undergone extensive evaluation for GI bleeds in the past and presented to the hospital with complaints of weakness and dark-colored stool. 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 She reports a recent episodes of dark colored bowel movements with associated weakness. The patient was found to have an acute fall in her hemoglobin to 6.8 on 05/31/2020 currently at 7.8 status post transfusion. PROCEDURE PERFORMED: Push enteroscopy. PREOPERATIVE DIAGNOSIS: Melena, anemia of acute blood loss, history of duodenal AVM. ESTIMATED BLOOD LOSS: Minimal. IV sedation per anesthesia. PROCEDURE: After informed consent was obtained, the patient was brought into the endoscopy unit. IV sedation was administered by Anesthesia under continuous monitoring. Initially the Olympus pediatric colonoscope was inserted into the mouth. Esophagus intubated without any difficulty. It was gradually advanced into the stomach and duodenum and carefully examined. The duodenum appeared normal and the pediatric colonoscope continue to be advanced to approximately 60 cm from the pylorus with no evidence of old blood or active bleeding seen throughout the entire examined small bowel.. The scope at this time was withdrawn to the stomac h, adequately insufflated with air, and upon careful examination, mucosa of the antrum, body, cardia and the fundus appeared normal, except for some mild punctate erythema suggestive of mild gastritis. The scope was then withdrawn into the esophagus. The GE junction was located at 39 cm from the incisors, with some tongues of salmon-colored mucosa suggestive of short segment Zelaya's esophagus. The esophagus appeared normal. There were no erosions or ulcerations seen and the patient tolerated the procedure well. IMPRESSION: 1. No active bleeding, old blood or pathology noted to explain symptoms of melena and anemia. 2. Mild gastritis. RECOMMENDATIONS: The findings of this examination were discussed with the patient. Suspicion is for small bowel bleed, and we will proceed to video capsule endoscopy. Continue to monitor hemoglobin and hematocrit and transfuse as needed. Continue to monitor for signs or symptoms of GI bleeding.
[2020-06-03 13:16] LABS: Glucose,Whole Blood 85 mg/dL (75-99)
[2020-06-03] MEDS ORDERED: SIMETHICONE 40 MG/0.6 ML DROPS 2,000 MG/30 ML BOTTLE PO ONE (13:17)
[2020-06-03] MEDS: GLIMEPIRIDE 2 MG TAB PO SCH (16:27)
[2020-06-03] MEDS: BUMETANIDE 1 MG TAB PO SCH ×2 (16:27→16:36)
[2020-06-03] MEDS: METOPROLOL TARTRATE 50 MG TAB PO SCH ×2 (16:27→21:24)
[2020-06-03] MEDS: POTASSIUM CHLORIDE ER 10 MEQ TAB.ER.PRT PO SCH ×2 (16:28→21:24)
[2020-06-03] MEDS: PREGABALIN 100 MG CAP PO SCH ×2 (16:28→21:24)
[2020-06-03] MEDS: PANTOPRAZOLE 40 MG TABLET PO SCH ×2 (16:28→21:24)
[2020-06-03 16:35] LABS: Glucose,Whole Blood 87 mg/dL (75-99)
[2020-06-03] MEDS: FLUoxetine HCL 20 MG CAP PO SCH (16:35)
[2020-06-03] MEDS: amLODIPine 5 MG TAB PO SCH (16:35)
[2020-06-03] MEDS: ISOSORBIDE MONONITRATE ER 30 MG TAB.ER.24H PO SCH (16:35)
[2020-06-03] MEDS: INSULIN DETEMIR (LEVEMIR) 100 UNIT/ML SYR SQ SCH ×2 (16:35→21:23)
[2020-06-03] MEDS: LINAGLIPTIN 5 MG TABLET PO SCH (16:35)
[2020-06-03] MEDS: SPIRONOLACTONE 25 MG TAB PO SCH (16:36)
[2020-06-03] MEDS: ATORVASTATIN 40 MG TAB PO SCH (16:36)
[2020-06-03] MEDS: acetaZOLAMIDE 250 MG TAB PO SCH (16:36)
[2020-06-03 16:53] LABS: Hemoglobin A1C 6.5 % (4.0-6.0)
--- NOTE | 2020-06-03 20:56 | P.PN ---
Subjective CHIEF COMPLAINT: CHF HISTORY OF PRESENT ILLNESS: 06/01/2020 This is a 65-year old female with a past medical history significant for COPD, former nicotine dependence, hyperlipidemia, hypertension congestive heart fa ilure, and GI bleed. Patient follows in the office with Dr. Yang. We have been asked to see the patient in consultation for CHF. Patient examined this morning at the bedside in the emergency room. Patient states she has been feeling short of breath over the past 2-3 days. She denies chest pain or pressure. She reports lower extremity edema which is chronic for her but states it is slightly worse than normal. Patient also reports having black stools over the past week or so. Patient was hospitalized in February 2020 secondary to CHF. Echocardiogram completed at that time revealed ejection fraction 55-60%, moderate aortic stenosis and moderate mitral stenosis. Patient was also hospi talized in April 2020 for CHF and anemia. She underwent an EGD with Dr. 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 Patient's hemoglobin this morning is 6.9. She is currently receiving RBC transfusion. She received a dose of IV Lasix in the emergency room and has been resumed on her oral Bumex. 06/02/2020 Patient examined morning at the bedside. She denies chest pain or pressure. She states her shortness of breath is improving. She also reports decreased edema of her lower extremities. Patient received RBC transfusion yesterday. She also received a dose of Lasix after her transfusion. Hemoglobin this morning is 7.8. Blood pressure 115/71. Heart rate in the 70s. 06/03/2020 Patient seen and examined. Patient had an EGD performed without source of bleeding. Admits to some continued melena. No chest pain, no SOB. PHYSICAL EXAM: VITAL SIGNS: Reviewed. GENERAL: Well-developed in no acute distress. HEENT: Head is normocephalic. Pupils are equal, round. Sclerae anicteric. Mucous membranes of the mouth are moist. Neck supple. No JVD or thyromegaly LUNGS: Respirations even and unlabored. Lungs diminished. HEART: Regular rate and rhythm. S1 and S2 heard. Systolic murmur noted ABDOMEN: Soft. Nondistended. Nontender. EXTREMITIES: Normal range of motion. No clubbing or cyanosis. Peripheral pulses intact. 1+ bilateral lower extremity edema NEUROLOGIC: Awake and alert. Oriented x 3. ASSESSMENT: Shortness of breath Acute exacerbation of COPD Acute mild exacerbation of chronic diastolic congestive heart failure, EF 55- 60%, BNP 1790, improved Acute anemia with reports of dark stools at home, status post EGD 05/13/2020 Moderate aortic stenosis and moderate mitral stenosis Moderate pulmonary hypertension Hypertension Hyperlipidemia Diabetes mellitus, type II Former nicotine dependence PLAN: Continue current cardiac medications Patient appears euvolemic. Continue with current regimen. Further workup of anemia, video capsule per GI. No further recommendations from cardiology at this time. Please call with any questions. Objective - Vital Signs Vital signs: Vital Signs Temp 97.7 F 06/03/20 14:00 Pulse 58 L 06/03/20 20:29 Resp 18 06/03/20 14:00 BP 117/65 06/03/20 14:00 Pulse Ox 100 06/03/20 14:00 Intake & Output 06/03/20 06/03/20 06/04/20 06:59 18:59 06:59 Intake Total 150 Balance 150 Intake: IV 150 - Labs CBC & Chem 7: 06/03/20 06:10 06/03/20 06:10 Labs: Abnormal Lab Results - Last 24 Hours (Table) 05/31/20 06/03/20 06/03/20 Range/Units 20:13 06:10 06:10 WBC 15.4 H (3.8-10.6) k/uL RBC 3.24 L (3.80-5.40) m/uL Hgb 8.0 L (11.4-16.0) gm/dL Hct 27.6 L (34.0-46.0) % MCH 24.8 L (25.0-35.0) pg MCHC 29.2 L (31.0-37.0) g/dL RDW 17.7 H (11.5-15.5) % Neutrophils # (Manual) 12.78 H (1.3-7.7) k/uL Monocytes # (Manual) 1.39 H (0-1.0) k/uL Nucleated RBCs 1 H (0-0) /100 WBC Carbon Dioxide (21.6-31.8) mmol/L BUN (9.0-27.0) mg/dL Est GFR (CKD-EPI)NonAf (60.0-200.0) BUN/Creatinine Ratio (12.00-20.00) Ratio Glucose (70-110) mg/dL POC Glucose (mg/dL) (75-99) mg/dL Hemoglobin A1c 6.5 H (4.0-6.0) % Total Protein (6.2-8.2) g/dL Crossmatch See Detail 06/03/20 06/03/20 Range/Units 06:10 11:22 WBC (3.8-10.6) k/uL RBC (3.80-5.40) m/uL Hgb (11.4-16.0) gm/dL Hct (34.0-46.0) % MCH (25.0-35.0) pg MCHC (31.0-37.0) g/dL RDW (11.5-15.5) % Neutrophils # (Manual) (1.3-7.7) k/uL Monocytes # (Manual) (0-1.0) k/uL Nucleated RBCs (0-0) /100 WBC Carbon Dioxide 38.8 H (21.6-31.8) mmol/L BUN 47.0 H (9.0-27.0) mg/dL Est GFR (CKD-EPI)NonAf 52.3 L (60.0-200.0) BUN/Creatinine Ratio 42.73 H (12.00-20.00) Ratio Glucose 160 H (70-110) mg/dL POC Glucose (mg/dL) 112 H (75-99) mg/dL Hemoglobin A1c (4.0-6.0) % Total Protein 6.0 L (6.2-8.2) g/dL Crossmatch
[2020-06-03 21:12] LABS: Glucose,Whole Blood 271 mg/dL (75-99)
[2020-06-03] MEDS: MONTELUKAST 10 MG TAB PO SCH (21:23)
[2020-06-04 03:46] VITALS: RESP 16
[2020-06-04] MEDS: LEVOTHYROXINE 125 MCG TAB PO SCH (06:03)
[2020-06-04 06:40] LABS: Anisocytosis Slight; HCT 29.8 % (34.0-46.0); HGB 8.5 gm/dL (11.4-16.0); Hypochromasia Marked; MCH 24.5 pg (25.0-35.0); MCHC 28.6 g/dL (31.0-37.0); MCV 85.6 fL (80.0-100.0); Mean Platelet Volume 8.3; Platelet Count 342 k/uL (150-450); Poikilocytosis Slight; RBC 3.48 m/uL (3.80-5.40); RDW 17.8 % (11.5-15.5); WBC 12.8 k/uL (3.8-10.6)
--- NOTE | 2020-06-04 07:53 | P.DS ---
Providers Date of admission: 05/31/20 19:21 Expected date of discharge: 06/04/20 Attending physician: Yoel Deras Consults: 05/31/20 22:32 Consult Physician Routine Consulting Provider: Vivian Samayoa Consult Reason/Comments: GI Bleed. Do you want consulting provider notified?: Yes 05/31/20 22:34 Consult Physician Routine Consulting Provider: Herve Yang Consult Reason/Comments: chf, a fib Do you want consulting provider notified?: Yes 06/01/20 06:22 Consult Physician Routine Consulting Provider: Ronen Wynne Consult Reason/Comments: COPD exacerbation Do you want consulting provider notified?: Yes Primary care physician: [facility] Course: HISTORY OF PRESENT ILLNESS This is a 65-year-old female patient of Dr. Deras with past medical history of diabetes mellitus type 2, diabetic neuropathy, COPD, chronic hypoxic respiratory failure on home O2, hypertension, obstructive sleep apnea, hypothyroidism. Patient has had ongoing problems with GI bleed and was seen by Dr. Nieves GI physician in [place]. She had a capsule endoscopy at the office and found ulcers. Patient underwent an EGD and could not get to all of the ulcers and patient was then transferred to [place] for repeat EGD. This will could not be completed at [place] and patient was subsequently transferred [facility] and she did have some cauterization done and was discharged home. She was hospitalized again on May 09 through May 14 at which time she presented with black stools. She underwent EGD with Dr. 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 She again complains of black stools that started yesterday morning as well as dyspnea for the past 3 days and cough. No chest pain. No sputum production. Mild lower extremity edema. No fever or chills. Patient presented to [facility] emergency center and found to be afebrile, heart rate 70, blood pressure 128/79, pulse ox 95% on 6 L nasal cannula. Hemoglobin was low at 6.8, WBC 15.2. Sodium 136, potassium 4.7, chloride 98, CO2 36, BUN 41, creatinine 0.96, blood sugar 161. Blood sugars were subsequently in the 400s. Urinalysis revealed glucose 4+. No sign of urinary tract infection. Chest x-ray reveals pulmonary interstitial infiltrates improved. No obvious heart failure. Probable some pulmonary hypertension. Patient was ordered for 1 unit of packed RBCs and second unit ordered. Consult in place with GI and pulmonary medicine, cardiology. Patient is waiting for bed on the cardiac stepdown unit. Patient has been seen by cardiology and continued on home medications. Patient was seen by primary medicine and albuterol changed to DuoNeb, continue Symbicort and steroids with plan for follow-up in the office for PFTs. 06/02: Patient has been afebrile, heart rate 74, blood pressure 109/57, pulse ox 93% on 3 L nasal cannula. Repeat blood work reveals WBC 18.2, hemoglobin 7.8, platelet count 392. CO2 34, BUN 53, creatinine 1.2. Blood sugar through yesterday was running in the 400s and patient was started on insulin drip. Blood sugars now at 212. We will plan to transition to Levemir 30 units twice daily, NovoLog scheduled 15 units before meals and scale, glimepiride 2 mg with breakfast patient has been seen by GI and is scheduled for EGD tomorrow. Discussed with patient that a permanent solution will need to be determined versus patient having continued repeat EGDs. Patient is status post transfusion 2 units packed RBCs. 06/03: Patient denies shortness of breath but is currently on oxygen at 3 L nasal cannula with pulse ox of 100%, heart rate 52, afebrile, blood pressure 114/51. Repeat hemoglobin is 8.0 and she is scheduled for EGD today at noon. Leukocytosis is improved at 15.4. CO2 is 38, BUN 47 creatinine 1.1. Blood sugars are significantly improved from yesterday. Insulin held this morning due to nothing by mouth status 06/04: Yesterday, patient underwent EGD with Dr. Smith that revealed no active bleeding, old blood or pathology noted to explain symptoms of melena and anemia. Mild gastritis. Recommendations were for capsule endoscopy which is tentatively reported as no bleeding. Hemoglobin today is at 8.5. Patient denies having any abdominal pain. No lightheadedness, chest pain, nausea or vomiting. She has been afebrile, heart rate 64, blood pressure 118/67, pulse ox 98% on 3 L nasal cannula. Other lab work today reveals WBC 12.8. Chloride 95, potassium 4, CO2 36, BUN 40 creatinine 1.1. Blood sugars running between 87 and 271. Patient will be discharged home today in stable condition. ASSESSMENT AND PLAN 1. Acute on chronic hypoxic respiratory failure requiring increased oxygen therapy secondary to a combination of acute diastolic heart failure, acute anemia. 2. Acute mild and chronic diastolic heart failure. 3. COPD among without exacerbation. 4. Acute on chronic GI bleed with acute blood loss anemia status post transfusion of 2 units of packed RBCs. 5. Diabetes mellitus type 2 with diabetic neuropathy, uncontrolled with hyperglycemia. 6. Diabetic neuropathy. 7. Hypertension. 8. Hyperlipidemia. 9. Obstructive sleep apnea. 10. Restless leg syndrome. 11. Recurrent depression. Discharge plan: Home with [facility]. Impression and plan of care have been directed as dictated by the signing physician. Clarice Colón nurse practitioner acting as scribe for signing physician. Patient Condition at Discharge: Good Plan - Discharge Summary Discharge Rx Participant: No New Discharge Prescriptions: New Insulin Detemir (Levemir) [Levemir] 30 unit SQ BID@0700,2100 syr INSULIN ASPART (NovoLOG) [NovoLOG (formulary)] 15 unit SQ AC-TID vial Continue rOPINIRole HCL [Requip] 2 mg PO BID Budesonide-Formot 160-4.5 Mcg [Symbicort 160-4.5 Mcg Inhaler] 2 puff INHALATION RT-BID Potassium Chloride ER [K-Dur 10] 10 meq PO BID Nitroglycerin Sl Tabs [Nitrostat] 0.4 mg SUBLINGUAL Q5M PRN PRN Reason: Chest Pain Montelukast Sodium [Singulair] 10 mg PO HS methocarbamoL [Robaxin] 500 mg PO BID PRN PRN Reason: Muscle Spasm Levothyroxine Sodium 125 mcg PO DAILY sitaGLIPtin [Januvia] 100 mg PO DAILY Isosorbide Mononitrate ER [Imdur] 30 mg PO DAILY Glimepiride [Amaryl] 2 mg PO DAILY Atorvastatin [Lipitor] 40 mg PO DAILY Albuterol Nebulized [Ventolin Nebulized] 2.5 mg INHALATION RT-QID PRN PRN Reason: Shortness Of Breath Albuterol Inhaler [Ventolin Hfa Inhaler] 1 - 2 puff INHALATION RT-QID PRN PRN Reason: Shortness Of Breath acetaZOLAMIDE [Diamox] 250 mg PO DAILY #30 tablet Pregabalin [Lyrica] 200 mg PO BID #6 cap Pantoprazole [Protonix] 40 mg PO BID #0 Sennosides-Docusate Sodium [Senokot-S] 1 tab PO BID PRN PRN Reason: Constipation amLODIPine [Norvasc] 5 mg PO DAILY Spironolactone [Aldactone] 25 mg PO DAILY Metoprolol Tartrate [Lopressor] 100 mg PO BID Bumetanide [BUMEX] 3 mg PO BID #180 tab Acetaminophen-Codeine 300-30mg [Tylenol w/codeine #3] 1 tab PO Q6H PRN PRN Reason: Pain Insulin Aspart [NovoLOG Flexpen] See Protocol SQ ACHS FLUoxetine HCL [PROzac] 20 mg PO DAILY Discontinued Insulin Glargine,Hum.rec.anlog [Toujeo Solostar] 60 units SQ HS Discharge Medication List Albuterol Inhaler [Ventolin Hfa Inhaler] 1 - 2 puff INHALATION RT-QID PRN 03/09/20 [History] Albuterol Nebulized [Ventolin Nebulized] 2.5 mg INHALATION RT-QID PRN 03/09/20 [History] Atorvastatin [Lipitor] 40 mg PO DAILY 03/09/20 [History] Budesonide-Formot 160-4.5 Mcg [Symbicort 160-4.5 Mcg Inhaler] 2 puff INHALATION RT-BID 03/09/20 [History] Glimepiride [Amaryl] 2 mg PO DAILY 03/09/20 [History] Isosorbide Mononitrate ER [Imdur] 30 mg PO DAILY 03/09/20 [History] Levothyroxine Sodium 125 mcg PO DAILY 03/09/20 [History] Montelukast Sodium [Singulair] 10 mg PO HS 03/09/20 [History] Nitroglycerin Sl Tabs [Nitrostat] 0.4 mg SUBLINGUAL Q5M PRN 03/09/20 [History] Potassium Chloride ER [K-Dur 10] 10 meq PO BID 03/09/20 [History] methocarbamoL [Robaxin] 500 mg PO BID PRN 03/09/20 [History] rOPINIRole HCL [Requip] 2 mg PO BID 03/09/20 [History] sitaGLIPtin [Januvia] 100 mg PO DAILY 03/09/20 [History] Pantoprazole [Protonix] 40 mg PO BID #0 03/17/20 [Rx] Pregabalin [Lyrica] 200 mg PO BID #6 cap 03/17/20 [Rx] acetaZOLAMIDE [Diamox] 250 mg PO DAILY #30 tablet 03/17/20 [Rx] Sennosides-Docusate Sodium [Senokot-S] 1 tab PO BID PRN 03/27/20 [History] Metoprolol Tartrate [Lopressor] 100 mg PO BID 05/09/20 [History] Spironolactone [Aldactone] 25 mg PO DAILY 05/09/20 [History] amLODIPine [Norvasc] 5 mg PO DAILY 05/09/20 [History] Bumetanide [BUMEX] 3 mg PO BID #180 tab 05/14/20 [Rx] Acetaminophen-Codeine 300-30mg [Tylenol w/codeine #3] 1 tab PO Q6H PRN 05/31/20 [History] FLUoxetine HCL [PROzac] 20 mg PO DAILY 05/31/20 [History] Insulin Aspart [NovoLOG Flexpen] See Protocol SQ ACHS 05/31/20 [History] INSULIN ASPART (NovoLOG) [NovoLOG (formulary)] 15 unit SQ AC-TID vial 06/04/20 [Rx] Insulin Detemir (Levemir) [Levemir] 30 unit SQ BID@0700,2100 syr 06/04/20 [Rx] Follow up Appointment(s)/Referral(s): Yoel Deras MD [Primary Care Provider] - 06/10/20 10:45 am [facility], [NON-STAFF] - As Needed Prince Bess MD [STAFF PHYSICIAN] - 06/17/20 1:30 pm Ambulatory/Diagnostic Orders: Complete Blood Count w/diff [LAB.AMB] Location: None Selected Patient Instructions/Handouts: Gastrointestinal Bleeding (DC) Discharge Disposition: HOME WITH HOME HEALTH SERVICES
[2020-06-04] MEDS: INSULIN DETEMIR (LEVEMIR) 100 UNIT/ML SYR SQ SCH (07:54)
[2020-06-04] MEDS: INSULIN ASPART (NovoLOG) 100 UNIT/ML VIAL SQ SCH ×4 (07:54→12:15)
[2020-06-04] MEDS: PREGABALIN 100 MG CAP PO SCH (07:55)
[2020-06-04] MEDS: LINAGLIPTIN 5 MG TABLET PO SCH (07:56)
[2020-06-04] MEDS: METOPROLOL TARTRATE 50 MG TAB PO SCH (07:57)
[2020-06-04] MEDS: amLODIPine 5 MG TAB PO SCH (07:57)
[2020-06-04] MEDS: SPIRONOLACTONE 25 MG TAB PO SCH (07:57)
[2020-06-04] MEDS: FLUoxetine HCL 20 MG CAP PO SCH (07:57)
[2020-06-04] MEDS: ATORVASTATIN 40 MG TAB PO SCH (07:57)
[2020-06-04] MEDS: PANTOPRAZOLE 40 MG TABLET PO SCH (07:57)
[2020-06-04] MEDS: POTASSIUM CHLORIDE ER 10 MEQ TAB.ER.PRT PO SCH (07:57)
[2020-06-04] MEDS: ISOSORBIDE MONONITRATE ER 30 MG TAB.ER.24H PO SCH (07:58)
[2020-06-04 08:09] VITALS: BP 118/67; PULSE 64; TEMP 97.6
[2020-06-04] MEDS: SYMBICORT 160-4.5 MCG INHALER INHALATION SCH (09:14)
[2020-06-04] MEDS: IPRATROPIUM-ALBUTEROL 3 ML NEB INHALATION SCH ×2 (09:14→12:52)
[2020-06-04] MEDS: BUMETANIDE 1 MG TAB PO SCH (09:23)
[2020-06-04] MEDS: GLIMEPIRIDE 2 MG TAB PO SCH (09:23)
[2020-06-04] MEDS: acetaZOLAMIDE 250 MG TAB PO SCH (09:24)
--- NOTE | 2020-06-04 11:21 | P.PN ---
Subjective Progress Note Date: 06/04/20 65-year-old female patient with a readmission for worsening shortness of breath. She is well-known to us from previous admission. The patient came into the hospital because of increased dyspnea. She also had some mild cough. No chest pain. No fever or chills. She had weight gain and increased lower extremity edema. No nausea. No vomiting. No abdominal pain. She was also having some having black melanotic stools. She has undergone previous. 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 Patient's hemoglobin was down to 6.9. She received a packed RBC transfusion. She was also given IV Lasix in the emergency department and her oral Bumex has been resumed. She has an ejection fraction of 55-60% with moderate degree of aortic stenosis and moderate mitral stenosis. She is known to have various other comorbidities as discussed earlier. She is currently on Bumex 3 mg twice a day and Aldactone 25 mg by mouth daily. She is on IV Solu-Medrol for now at a dose of 60 mg every 6 hours oon today's evaluation of 06/03/2020, the patient reported that she has someMelanotic stools overnight. Her hemoglobin is stable for now. She is going to undergo an EGD today. The patient is otherwise doing okay. She is on oxygen at 3 L per minute nasal cannula. Legs are less swollen. She is currently on Bumex 3 mg twice a day and Aldactone 25 mg by mouth daily. We'll discontinue the Solu-Medrol yesterday. No nausea. No vomiting. No abdominal pain. On today's evaluation on 06/04/2020 patient seen in follow-up on selective care unit, yesterday she had a EGD which found no evidence of active, old blood or pathology to explain symptoms of melena and anemia. Today patient states she still passing some black colored stools, denies any abdominal pain, today's hemoglobin is 8.5, hemodynamically patient has remained stable, no vomiting, no nausea, she is tolerating oral intake, no worsening dyspnea, lung sounds are diminished with mild crackles at the bases, she is on 3 L of oxygen with pulse ox of 98%, she's been wearing BiPAP at bedtime, she's been afebrile, she has denied worsening shortness of breath or chest pain. Objective - Vital Signs Vital signs: Vital Signs Temp 97.6 F 06/04/20 07:00 Pulse 64 06/04/20 07:00 Resp 16 06/04/20 07:00 BP 118/67 06/04/20 07:00 Pulse Ox 98 06/04/20 07:00 Intake & Output 06/03/20 06/04/20 06/04/20 18:59 06:59 18:59 Intake Total 150 Balance 150 Weight 112.5 kg Intake: IV 150 Other: Voiding Method Toilet - Exam GENERAL EXAM: Alert, Very pleasant, 65-year-old white female, on 3 L of oxygen comfortable in no apparent distress. HEAD: Normocephalic/atraumatic. EYES: Normal reaction of pupils, equal size. Conjunctiva pink, sclera white. NOSE: Clear with pink turbinates. THROAT: No erythema or exudates. NECK: No masses, no JVD, no thyroid enlargement, no adenopathy. CHEST: No chest wall deformity. Symmetrical expansion. LUNGS: Equal air entry with no crackles, wheeze, rhonchi or dullness. CVS: Regular rate and rhythm, normal S1 and S2, no gallops, no murmurs, no rubs ABDOMEN: Soft, nontender. No hepatosplenomegaly, normal bowel sounds, no guarding or rigidity. EXTREMITIES: No clubbing, Plus lower extremityedema, no cyanosis, 2+ pulses and upper and lower extremities. MUSCULOSKELETAL: Muscle strength and tone normal. SPINE: No scoliosis or deformity SKIN: No rashes CENTRAL NERVOUS SYSTEM: Alert and oriented -3. No focal deficits, tone is normal in all 4 extremities. PSYCHIATRIC: Alert and oriented -3. Appropriate affect. Intact judgment and insight. - Labs CBC & Chem 7: 06/04/20 05:21 06/03/20 06:10 Labs: Abnormal Lab Results - Last 24 Hours (Table) 05/31/20 06/03/20 06/03/20 Range/Units 20:13 06:10 11:22 WBC (3.8-10.6) k/uL RBC (3.80-5.40) m/uL Hgb (11.4-16.0) gm/dL Hct (34.0-46.0) % MCH (25.0-35.0) pg MCHC (31.0-37.0) g/dL RDW (11.5-15.5) % POC Glucose (mg/dL) 112 H (75-99) mg/dL Hemoglobin A1c 6.5 H (4.0-6.0) % Crossmatch See Detail 06/03/20 06/04/20 Range/Units 21:11 05:21 WBC 12.8 H (3.8-10.6) k/uL RBC 3.48 L (3.80-5.40) m/uL Hgb 8.5 L (11.4-16.0) gm/dL Hct 29.8 L (34.0-46.0) % MCH 24.5 L (25.0-35.0) pg MCHC 28.6 L (31.0-37.0) g/dL RDW 17.8 H (11.5-15.5) % POC Glucose (mg/dL) 271 H (75-99) mg/dL Hemoglobin A1c (4.0-6.0) % Crossmatch Assessment and Plan Plan: Assessment: #1. Acute on chronic hypoxic respiratory failure related to acute exacerbation of CHF with diastolic dysfunction, responded to diuretics and currently she is on oxygen at 3 L.on examination she continues to have some crackles in lung bases and she is on 3 L of oxygen by nasal cannula. #2. upper GI bleed, most likely secondary to angiectasia's of the Romanian and the patient had undergone a previous EGD and electrocautery back in April 2020. She received a total of 2 units of packed RBC during this current admission and hemoglobin is stable for now. overnight the patient had some melanotic stool and the patient is awaiting EGD today. She is currently nothing by mouth. #2. Chronic hypoxic rest or a failure related to history of COPD, patient usually wears 2 L of oxygen during the day 3 L of oxygen at night #3. Chronic CHF, with history of valvular disease, we will obtain echocardiogra m, patient follows with Dr. Tyson from [place]. The patient has moderate to severe MS and aortic stenosis and please refer to the most recent echocardiogram #4. Acute on chronic anemia, related to GI bleeding and melena, with a recent history of endoscopic evaluation and small bowel capsule endoscopy at [facility] which revealed small bowel bleeding status post cauterization. Status post transfusion with 2 units of packed blood cells #5. Diabetes mellitus 2 diabetic neuropathy #6. Obstructive sleep apnea on CPAP #7. Hypothyroidism #8. History of smoking, currently in remission for last 3 months, patient carries 40 years of smoking of one pack a day #9. Depression Plan: No worsening dyspnea, vital signs have been stable, hemoglobin is stable, patient is stable for discharge home from pulmonary perspective, she can follow- up on an outpatient basis with Dr. Gomes in the office, she has home oxygen, she has home BiPAP unit, she can continue her maintenance inhalers and breathing treatments I performed a history & physical examination of the patient and discussed their management with my nurse practitioner, Rika Hartley. I reviewed the nurse practitioner's note and agree with the documented findings and plan of care. Lung sounds are positive for diminished breath sounds with bibasilar crackles. The findings and the impression was discussed with the patient. I attest to the documentation by the nurse practitioner. Time with Patient: Less than 30
[2020-06-04 11:33] LABS: African American GFR (CKD) 60.6 (60.0-200.0); Anion Gap 6.7 mmol/L (4.00-12.00); BUN/Creat Ratio 36.36 Ratio (12.00-20.00); Calcium 8.8 mg/dL (8.7-10.3); Carbon Dioxide 36.3 mmol/L (21.6-31.8); Non-African American GFR(CKD) 52.3 (60.0-200.0)
--- NOTE | 2020-06-04 15:29 | P.PN ---
Subjective Progress Note Date: 06/04/20 Principal diagnosis: Melena, GI bleed The patient was seen and examined at the bedside. She was lying down in bed. She is without any acute changes through the night. She states she still dark stools. She denies any abdominal pain, nausea, or vomiting. He underwent an EGD and small bowel video capsule endoscopy yesterday. EGD findings included no active bleeding, no bladder pathology noted to explain symptoms of melena and anemia. Mild gastritis. Small bowel video capsule endoscopy reviewed showing is one small AVM nonbleeding. No other evidence of any active bleeding or old blood. Objective - Vital Signs Vital signs: Vital Signs Temp 97.6 F 06/04/20 07:00 Pulse 64 06/04/20 07:00 Resp 16 06/04/20 07:00 BP 118/67 06/04/20 07:00 Pulse Ox 98 06/04/20 07:00 Intake & Output 06/03/20 06/04/20 06/04/20 18:59 06:59 18:59 Intake Total 150 Balance 150 Weight 112.5 kg Intake: IV 150 Other: Voiding Method Toilet - Exam General appearance: The patient is alert, oriented, in no acute distress. Obese. HET: Head is normocephalic and atraumatic. Conjunctiva pink. Sclera anicteric. Neck: Supple without lymphadenopathy. Abdomen: Soft, obese, nontender, nondistended with bowel sounds. No guarding or rigidity. Extremities: Normal skin color and turgor. No pedal edema Neurological: No focal deficits. Alert and oriented 3. - Labs CBC & Chem 7: 06/04/20 05:21 06/04/20 05:21 Labs: Abnormal Lab Results - Last 24 Hours (Table) 05/31/20 06/03/20 06/03/20 Range/Units 20:13 06:10 21:11 WBC (3.8-10.6) k/uL RBC (3.80-5.40) m/uL Hgb (11.4-16.0) gm/dL Hct (34.0-46.0) % MCH (25.0-35.0) pg MCHC (31.0-37.0) g/dL RDW (11.5-15.5) % Chloride (96-109) mmol/L Carbon Dioxide (21.6-31.8) mmol/L BUN (9.0-27.0) mg/dL Est GFR (CKD-EPI)NonAf (60.0-200.0) BUN/Creatinine Ratio (12.00-20.00) Ratio Glucose (70-110) mg/dL POC Glucose (mg/dL) 271 H (75-99) mg/dL Hemoglobin A1c 6.5 H (4.0-6.0) % Crossmatch See Detail 06/04/20 06/04/20 Range/Units 05:21 05:21 WBC 12.8 H (3.8-10.6) k/uL RBC 3.48 L (3.80-5.40) m/uL Hgb 8.5 L (11.4-16.0) gm/dL Hct 29.8 L (34.0-46.0) % MCH 24.5 L (25.0-35.0) pg MCHC 28.6 L (31.0-37.0) g/dL RDW 17.8 H (11.5-15.5) % Chloride 95 L (96-109) mmol/L Carbon Dioxide 36.3 H (21.6-31.8) mmol/L BUN 40.0 H (9.0-27.0) mg/dL Est GFR (CKD-EPI)NonAf 52.3 L (60.0-200.0) BUN/Creatinine Ratio 36.36 H (12.00-20.00) Ratio Glucose 261 H (70-110) mg/dL POC Glucose (mg/dL) (75-99) mg/dL Hemoglobin A1c (4.0-6.0) % Crossmatch Assessment and Plan (1) Melena Narrative/Plan: 65-year-old female presenting to the hospital for weakness and shortness of breath with associated melena. She is a known history of GI bleeding and previously underwent endoscopic evaluation on 05/13/2020 with a proximal jejunal angiectasia treated with cautery. She has undergone extensive evaluation with prior endoscopies at outside hospital and was found to be anemic on presentation suspicion for recurrent upper GI bleed evaluation. She underwent an EGD and small bowel video capsule endoscopy yesterday. EGD with no active bleeding, or bladder pathology noted to explain symptoms of melena and anemia, mild gastritis. Small bowel video capsule endoscopy with one small AVM without any active bleeding or old blood noted. Current Visit: No Status: Acute Code(s): K92.1 - MELENA SNOMED Code(s): 4215273 (2) GI bleed Current Visit: No Status: Acute Code(s): K92.2 - GASTROINTESTINAL HEMORRHAGE, UNSPECIFIED SNOMED Code(s): 24400511 (3) Arteriovenous malformation of small intestine Current Visit: Yes Status: Acute Priority: High Code(s): K55.20 - ANGIODYSPLASIA OF COLON WITHOUT HEMORRHAGE SNOMED Code(s): 436479933 (4) Anemia associated with acute blood loss Current Visit: No Status: Acute Code(s): D62 - ACUTE POSTHEMORRHAGIC ANEMIA SNOMED Code(s): 803516004 Plan: Supportive care Advance diet as tolerated Continue to monitor hemoglobin and hematocrit, transfuse as needed. Patient is status post EGD and small bowel video capsule endoscopy Continue Protonix Agree with discharge home, monitoring outpatient hemoglobin and hematocrit Dr. Bess I agree with the dictator's note, documented as a scribe by Cinthya Montoya.
== END 2020-06-04 15:30 | disposition home health service (06) | DRG 377 ==
LOC: EC 17:08 → 4SSUR 19:21
PROVIDERS: ADMIT Internal Medicine Geriatric Medicine; ATTEND Internal Medicine Geriatric Medicine
PROC: 30233N1 Transfusion of Nonautologous Red Blood Cells into Peripheral Vein, Percutaneous Approach (ICD-10-PCS; 2020-06-03)
PROC: 5A09457 Assistance with Respiratory Ventilation, 24-96 Consecutive Hours, Continuous Positive Airway Pressure (ICD-10-PCS; 2020-06-03)
PROC: 0DJ08ZZ Inspection of Upper Intestinal Tract, Via Natural or Artificial Opening Endoscopic (ICD-10-PCS; principal; 2020-06-03 11:25)
DX: K29.71 Gastritis, unspecified, with bleeding (principal); I50.33 Acute on chronic diastolic (congestive) heart failure; J96.21 Acute and chronic respiratory failure with hypoxia; D62 Acute posthemorrhagic anemia; F33.9 Major depressive disorder, recurrent, unspecified; J44.1 Chronic obstructive pulmonary disease with (acute) exacerbation; E03.9 Hypothyroidism, unspecified; D72.829 Elevated white blood cell count, unspecified; E11.40 Type 2 diabetes mellitus with diabetic neuropathy, unspecified; K55.21 Angiodysplasia of colon with hemorrhage; E11.65 Type 2 diabetes mellitus with hyperglycemia; E78.5 Hyperlipidemia, unspecified; Z20.828 Contact with and (suspected) exposure to other viral communicable diseases; G25.81 Restless legs syndrome; G47.33 Obstructive sleep apnea (adult) (pediatric); I08.0 Rheumatic disorders of both mitral and aortic valves; I11.0 Hypertensive heart disease with heart failure; I27.20 Pulmonary hypertension, unspecified; Z96.1 Presence of intraocular lens; I25.2 Old myocardial infarction; Z79.4 Long term (current) use of insulin; Z79.51 Long term (current) use of inhaled steroids; Z79.890 Hormone replacement therapy; Z79.899 Other long term (current) drug therapy; Z80.6 Family history of leukemia; Z82.49 Family history of ischemic heart disease and other diseases of the circulatory system; Z84.1 Family history of disorders of kidney and ureter; Z87.891 Personal history of nicotine dependence; Z90.710 Acquired absence of both cervix and uterus; Z88.8 Allergy status to other drugs, medicaments and biological substances; Z90.49 Acquired absence of other specified parts of digestive tract; Z98.891 History of uterine scar from previous surgery; Z98.49 Cataract extraction status, unspecified eye
CPT/HCPCS: 36415; 36430; 44360; 71045; 80048; 80053; 81003; 83036; 83605; 83735; 83880; 84484; 85025; 85027; 85610; 85730; 86850; 86870; 86880; 86885; 86900; 86901; 86902; 86920; 87635; 91110; 93005; 94640; 94660; 96374; 96375; 96376; 99291

== ENCOUNTER 2020-06-17 06:39 | Inpatient (IN) | payer MEDICARE, OTHER ==
--- NOTE | 2020-06-17 07:12 | ED ---
SOB HPI - General Chief Complaint: Shortness of Breath Stated Complaint: SOB Time Seen by Provider: 06/17/20 06:41 Source: patient, EMS, RN notes reviewed Mode of arrival: EMS Limitations: no limitations - History of Present Illness Initial Comments: 65-year-old female presents emergency department via EMS chief shortness of breath. Patient states symptoms started last 24 hours. Patient had multiple admissions recent for CHF, COPD exacerbation. Patient states been doing breathing treatments at home with no relief. Patient states that she's had in crease in leg swelling but states that her weight has not gone. Patient denies any current chest pain. States that she just feels fatigued. Patient states that she is on home oxygen 2 L but states that she increase it to 4 at home with no relief. - Related Data Home Medications Medication Instructions Recorded Confirmed Albuterol Inhaler [Ventolin Hfa 1 - 2 puff INHALATION RT-QID PRN 03/09/20 06/17/20 Inhaler] Albuterol Nebulized [Ventolin 2.5 mg INHALATION RT-QID PRN 03/09/20 06/17/20 Nebulized] Atorvastatin [Lipitor] 40 mg PO DAILY 03/09/20 06/17/20 Budesonide-Formot 160-4.5 Mcg 2 puff INHALATION RT-BID 03/09/20 06/17/20 [Symbicort 160-4.5 Mcg Inhaler] Glimepiride [Amaryl] 2 mg PO DAILY 03/09/20 06/17/20 Isosorbide Mononitrate ER [Imdur] 30 mg PO DAILY 03/09/20 06/17/20 Levothyroxine Sodium 125 mcg PO DAILY 03/09/20 06/17/20 Montelukast Sodium [Singulair] 10 mg PO HS 03/09/20 06/17/20 Nitroglycerin Sl Tabs [Nitrostat] 0.4 mg SUBLINGUAL Q5M PRN 03/09/20 06/17/20 Potassium Chloride ER [K-Dur 10] 10 meq PO BID 03/09/20 06/17/20 methocarbamoL [Robaxin] 500 mg PO BID PRN 03/09/20 06/17/20 rOPINIRole HCL [Requip] 2 mg PO BID 03/09/20 06/17/20 sitaGLIPtin [Januvia] 100 mg PO DAILY 03/09/20 06/17/20 Sennosides-Docusate Sodium 1 tab PO BID PRN 03/27/20 06/17/20 [Senokot-S] Metoprolol Tartrate [Lopressor] 100 mg PO BID 05/09/20 06/17/20 Spironolactone [Aldactone] 25 mg PO DAILY 05/09/20 06/17/20 amLODIPine [Norvasc] 5 mg PO DAILY 05/09/20 06/17/20 Acetaminophen-Codeine 300-30mg 1 tab PO Q6H PRN 05/31/20 06/17/20 [Tylenol w/codeine #3] FLUoxetine HCL [PROzac] 20 mg PO DAILY 05/31/20 06/17/20 Insulin Aspart [NovoLOG Flexpen] See Protocol SQ ACHS PRN 05/31/20 06/17/20 Bumetanide [BUMEX] 4 mg PO BID 06/17/20 06/17/20 Previous Rx's Medication Instructions Recorded Pantoprazole [Protonix] 40 mg PO BID #0 03/17/20 Pregabalin [Lyrica] 200 mg PO BID #6 cap 03/17/20 acetaZOLAMIDE [Diamox] 250 mg PO DAILY #30 tablet 03/17/20 INSULIN ASPART (NovoLOG) [NovoLOG 15 unit SQ AC-TID vial 06/04/20 (formulary)] Insulin Detemir (Levemir) [Levemir] 30 unit SQ BID@0700,2100 syr 06/04/20 Allergies Allergy/AdvReac Type Severity Reaction Status Date / Time cisatracurium [From Nimbex] Allergy Rash/Hives Verified 06/17/20 08:14 Review of Systems ROS Statement: Those systems with pertinent positive or pertinent negative responses have been documented in the HPI. ROS Other: All systems not noted in ROS Statement are negative. Past Medical History Past Medical History: Heart Failure, COPD, Diabetes Mellitus, GI Bleed, Respiratory Disorder Additional Past Medical History / Comment(s): heart murmur, neuropathy Last Myocardial Infarction Date:: 2018 History of Any Multi-Drug Resistant Organisms: None Reported Date of last positivie culture/infection: 04/2019 MDRO Source:: URINE Past Surgical History: Section, Cholecystectomy, Heart Catheterization, Hysterectomy, Orthopedic Surgery Additional Past Surgical History / Comment(s): Gi cauterization 02/22/2020; heart cath 12/26/2019; cataracts removal, lens placement. Past Anesthesia/Blood Transfusion Reactions: Previous Problems w/ Anesthesia Additional Past Anesthesia/Blood Transfusion Reaction / Comment(s): ALLERGY TO CISATRACURIUM- FACE TURNED RED/SWOLLEN Past Psychological History: No Psychological Hx Reported Smoking Status: Former smoker Past Alcohol Use History: None Reported Past Drug Use History: None Reported - Past Family History Mother Family Medical History: Renal Disease Additional Family Medical History / Comment(s): Mother was on Hemodilaysis General Exam Limitations: no limitations General appearance: alert, in no apparent distress Head exam: Present: atraumatic, normocephalic, normal inspection Eye exam: Present: normal appearance, PERRL, EOMI. Absent: scleral icterus, conjunctival injection, periorbital swelling ENT exam: Present: normal exam, normal oropharynx, mucous membranes moist Neck exam: Present: normal inspection, full ROM. Absent: tenderness, meningismus, lymphadenopathy Respiratory exam: Present: respiratory distress (Moderate), wheezes, decreased breath sounds. Absent: normal lung sounds bilaterally, rales, rhonchi, stridor Cardiovascular Exam: Present: regular rate, normal rhythm, normal heart sounds. Absent: systolic murmur, diastolic murmur, rubs, gallop, clicks GI/Abdominal exam: Present: soft, normal bowel sounds. Absent: distended, tenderness, guarding, rebound, rigid Back exam: Absent: CVA tenderness (R), CVA tenderness (L) Neurological exam: Present: alert, oriented X3 Skin exam: Present: warm, dry, intact, normal color. Absent: rash Course Vital Signs 06/17/20 06/17/20 06/17/20 06:42 07:47 08:56 Temperature 98.6 F 98.1 F Pulse Rate 98 95 91 Respiratory 22 24 22 Rate Blood Pressure 103/69 130/85 134/65 O2 Sat by Pulse 91 L 96 96 Oximetry Medical Decision Making - Medical Decision Making 65-year-old presents for shortness of breath. X-ray shows evidence of pulmonary edema, possible infiltrate. Patient has leukocytosis. Patient was started on antibiotics. Patient was placed on BiPAP for respiratory distress. Patient was also given a dose of Lasix. Patient be admitted to hospitalist for further treatment - Lab Data Result diagrams: 06/17/20 07:35 06/17/20 07:35 Lab Results 06/17/20 06/17/20 06/17/20 Range/Units 07:35 07:35 07:35 WBC 19.6 H (3.8-10.6) k/uL RBC 3.38 L (3.80-5.40) m/uL Hgb 7.9 L (11.4-16.0) gm/dL Hct 27.9 L (34.0-46.0) % MCV 82.5 (80.0-100.0) fL MCH 23.4 L (25.0-35.0) pg MCHC 28.3 L (31.0-37.0) g/dL RDW 18.3 H (11.5-15.5) % Plt Count 168 D (150-450) k/uL MPV 10.0 Neutrophils % 86 % Lymphocytes % 6 % Monocytes % 5 % Eosinophils % 1 % Basophils % 1 % Neutrophils # 16.9 H (1.3-7.7) k/uL Lymphocytes # 1.2 (1.0-4.8) k/uL Monocytes # 1.0 (0-1.0) k/uL Eosinophils # 0.2 (0-0.7) k/uL Basophils # 0.1 (0-0.2) k/uL Manual Slide Review Performed Large Platelets Present Hypochromasia Marked Poikilocytosis Slight Anisocytosis Slight Microcytosis Slight PT 9.4 (9.0-12.0) sec INR 0.9 (<1.2) APTT 22.3 (22.0-30.0) sec Sodium 138 (137-145) mmol/L Potassium 4.8 (3.5-5.1) mmol/L Chloride 103 (98-107) mmol/L Carbon Dioxide 29 (22-30) mmol/L Anion Gap 6 mmol/L BUN 48 H (7-17) mg/dL Creatinine 1.02 (0.52-1.04) mg/dL Est GFR (CKD-EPI)AfAm 67 (>60 ml/min/1.73 sqM) Est GFR (CKD-EPI)NonAf 58 (>60 ml/min/1.73 sqM) Glucose 323 H (74-99) mg/dL Calcium 8.7 (8.4-10.2) mg/dL Magnesium 2.5 H (1.6-2.3) mg/dL Total Bilirubin 0.6 (0.2-1.3) mg/dL AST 45 H (14-36) U/L ALT 23 (4-34) U/L Alkaline Phosphatase 140 H (38-126) U/L Troponin I (0.000-0.034) ng/mL NT-Pro-B Natriuret Pep pg/mL Total Protein 7.1 (6.3-8.2) g/dL Albumin 4.0 (3.5-5.0) g/dL Coronavirus (PCR) (Not Detectd) 06/17/20 06/17/20 06/17/20 Range/Units 07:35 07:35 07:35 WBC (3.8-10.6) k/uL RBC (3.80-5.40) m/uL Hgb (11.4-16.0) gm/dL Hct (34.0-46.0) % MCV (80.0-100.0) fL MCH (25.0-35.0) pg MCHC (31.0-37.0) g/dL RDW (11.5-15.5) % Plt Count (150-450) k/uL MPV Neutrophils % % Lymphocytes % % Monocytes % % Eosinophils % % Basophils % % Neutrophils # (1.3-7.7) k/uL Lymphocytes # (1.0-4.8) k/uL Monocytes # (0-1.0) k/uL Eosinophils # (0-0.7) k/uL Basophils # (0-0.2) k/uL Manual Slide Review Large Platelets Hypochromasia Poikilocytosis Anisocytosis Microcytosis PT (9.0-12.0) sec INR (<1.2) APTT (22.0-30.0) sec Sodium (137-145) mmol/L Potassium (3.5-5.1) mmol/L Chloride (98-107) mmol/L Carbon Dioxide (22-30) mmol/L Anion Gap mmol/L BUN (7-17) mg/dL Creatinine (0.52-1.04) mg/dL Est GFR (CKD-EPI)AfAm (>60 ml/min/1.73 sqM) Est GFR (CKD-EPI)NonAf (>60 ml/min/1.73 sqM) Glucose (74-99) mg/dL Calcium (8.4-10.2) mg/dL Magnesium (1.6-2.3) mg/dL Total Bilirubin (0.2-1.3) mg/dL AST (14-36) U/L ALT (4-34) U/L Alkaline Phosphatase (38-126) U/L Troponin I <0.012 (0.000-0.034) ng/mL NT-Pro-B Natriuret Pep 1970 pg/mL Total Protein (6.3-8.2) g/dL Albumin (3.5-5.0) g/dL Coronavirus (PCR) Not Detected (Not Detectd) Critical Care Time Critical Care Time: Yes Total Critical Care Time: 35 Critical Care Time: Total 35 minutes of critical care time. Patient past medical history according last EKG chest x-ray. Patient found in respiratory distress. Patient was placed on BiPAP. Patient did significantly improve x-ray shows possible infiltrate versus pulmonary edema Lasix was given, antibiotics was ordered as she does have some leukocytosis. Case discussed with admitting physician. Patient will be admitted for further treatment and management. Disposition Clinical Impression: CHF exacerbation, Anemia, Weakness, Acute exacerbation of chronic obstructive pulmonary disease Disposition: ADMITTED IP TO THIS HOSP Condition: Serious Referrals: Yoel Deras MD [Primary Care Provider] - 1-2 days
--- NOTE | 2020-06-17 07:25 | XR ---
EXAMINATION TYPE: XR chest 1V DATE OF EXAM: 06/17/2020 COMPARISON: Prior chest x-ray 05/31/2020 HISTORY: Difficulty breathing TECHNIQUE: Single frontal view of the chest is obtained. FINDINGS: Suspect there is been some progression in airspace disease bilaterally, interstitium is in creased. Heart is enlarged. Aorta is dense. No evident pneumothorax or pleural effusion. Prominent pu lmonary artery could be indicative of pulmonary artery hypertension. There are overlying leads. IMPRESSION: Correlate for congestive heart failure, pneumonia, follow-up recommended.
[2020-06-17 08:33] LABS: Calcium 8.7 mg/dL (8.4-10.2); Total Bilirubin 0.6 mg/dL (0.2-1.3); Total Protein 7.1 g/dL (6.3-8.2)
[2020-06-17 08:34] LABS: INR 0.9 (<1.2); Partial Thromboplastin Time 22.3 sec (22.0-30.0); Prothrombin Time 9.4 sec (9.0-12.0)
[2020-06-17 08:50] LABS: Magnesium 2.5 mg/dL (1.6-2.3); Potassium 4.8 mmol/L (3.5-5.1)
[2020-06-17 08:52] LABS: Anisocytosis Slight; Basophils # (A) 0.1 k/uL (0-0.2); Basophils % (A) 1 %; Eosinophils # (A) 0.2 k/uL (0-0.7); Eosinophils % (A) 1 %; HCT 27.9 % (34.0-46.0); HGB 7.9 gm/dL (11.4-16.0); Hypochromasia Marked; Lymphocytes # (A) 1.2 k/uL (1.0-4.8); Lymphocytes % (A) 6 %; MCH 23.4 pg (25.0-35.0); MCHC 28.3 g/dL (31.0-37.0); MCV 82.5 fL (80.0-100.0); Microcytosis Slight; Monocytes % (A) 5 %; Neutrophils # (A) 16.9 k/uL (1.3-7.7); Neutrophils % (A) 86 %; Poikilocytosis Slight; RBC 3.38 m/uL (3.80-5.40); RDW 18.3 % (11.5-15.5); WBC 19.6 k/uL (3.8-10.6)
[2020-06-17 08:55] LABS: Platelet Count 168 k/uL (150-450)
[2020-06-17 09:10] LABS: Large Platelets Present
[2020-06-17] MEDS ORDERED: cefTRIAXone IN SWFI 1,000 MG/10 ML SYRINGE IVP STA (09:41)
[2020-06-17] MEDS ORDERED: AZITHROMYCIN 500 MG in SODIUM CHLORIDE 0.9% 250 ML IVPB STA (09:41)
[2020-06-17] MEDS ORDERED: FUROSEMIDE 10 MG/ML 4 ML VIAL IV STA (09:42)
--- NOTE | 2020-06-17 11:21 | CT ---
EXAMINATION TYPE: CT abdomen pelvis w con DATE OF EXAM: 06/17/2020 COMPARISON: None HISTORY: Abd pain CT DLP: 2715.4 mGycm CONTRAST: CT scan of the abdomen and pelvis is performed without Oral Contrast and with IV Contrast, patient in jected with 80 mL of Isovue 300. FINDINGS: LUNG BASES-: Patchy basilar densities right greater than left and small effusions. Correlate for unde rlying pneumonia. LIVER/GB: The gallbladder surgically absent. No space occupying hepatic lesion. Biliary tree is of no rmal caliber. PANCREAS: No inflammation. No distinct mass. SPLEEN: No splenic enlargement. No lesion seen. ADRENALS: No nodule. No thickening. KIDNEYS/BLADDER: No hydronephrosis. No nephrolithiasis. No distinct renal mass. Small amount of ai r within the urinary bladder is likely related to catheterization. BOWEL: Normal appendix. Normal bowel caliber. No inflammation. Scattered diverticulosis without div erticulitis. GENITAL ORGANS: Hysterectomy changes identified. No adnexal masses seen. LYMPH NODES: No greater than 1cm abdominal or pelvic lymph nodes are appreciated. AORTA: No significant abnormality. OSSEOUS STRUCTURES: No significant abnormality is seen. OTHER: No significant additional abnormality is seen. IMPRESSION: 1. Patchy basilar densities right greater than left and small effusions. Correlate for underlying pne umonia. 2. No significant abnormality within the abdomen to account for the patient's symptoms.
[2020-06-17 12:07] LABS: Glucose,Whole Blood 345 mg/dL (75-99)
[2020-06-17] MEDS: INSULIN ASPART (NovoLOG) 100 UNIT/ML VIAL SQ SCH ×3 (12:33→20:22)
[2020-06-17 17:15] LABS: Glucose,Whole Blood 140 mg/dL (75-99)
[2020-06-17] MEDS ORDERED: NITROGLYCERIN SL TABS 0.4 MG TAB SUBLINGUAL PRN (18:45)
[2020-06-17] MEDS ORDERED: Acetaminophen-Codeine 300-30mg TAB PO PRN (18:45)
[2020-06-17] MEDS ORDERED: methocarbamoL 500 MG TAB PO PRN (18:45)
[2020-06-17] MEDS ORDERED: ALBUTEROL HFA INHALER INHALATION PRN (18:45)
[2020-06-17] MEDS ORDERED: ALBUTEROL NEBULIZED 2.5 MG/3 ML INHALATION PRN (18:45)
[2020-06-17] MEDS ORDERED: SENNOSIDES-DOCUSATE SODIUM 1 EACH TAB PO PRN (18:45)
--- NOTE | 2020-06-17 19:56 | P.HPIM ---
History of Present Illness H&P Date: 06/17/20 Chief Complaint: Severe dyspnea and shortness of breath, COPD exacerbation, CHF exacerbation 65-year-old female one of my office patient with multiple medical problem with recurrent visit to [facility] with GI bleed multiple endoscopy with cauterization done in the last few weeks. Patient was in the hospital over 3 weeks ago for worsening dyspnea and shortness of breath consistent with GI bleed and severe anemia cause worsening respiratory failure the time along with bilateral pneumonia and fluid overload was treated ended up having blood transfusion ended up going to the endoscopy unit with EGD done with Dr. Ivy with more than 2 area cauterized at the time and ended up having capsule endoscopy which analysis did not show any major abnormality at the time. Patient was seen in the office for follow-up hemoglobin was still running in the mid 8-90 g at the time last week was seen and done well. Patient developed to have worsening dyspnea and shortness of breath along with mid abdominal pain and discomfort with sharp discomfort under the xiphoid. Patient was in acute respiratory distress: 911 and ended up being transferred to [facility] department at [facility] where was seen and evaluated her hemoglobin was slightly bit lower at the time. Patient chest x-ray showed significant infiltrate with advance COPD and fluid overload the patient was started on IV diuretics mixup with graft treatment will be seen cardiology and pulmonary Hemoccult was order and patient be seen gastroenterology for possible need for another endoscopy if needed. Almost the possibility for intervention or surgical intervention for harsher section can be the best next step which patient is not a candidate for this point. Apex no exposure to Covid 19 recently and testing is negative. Review of Systems CONSTITUTIONAL: Well-developed We'll repeat obesity mild respiratory distress EYES: No icterus sclerae, no conjunctivitis. EARS, NOSE, MOUTH, THROAT, and FACE: No sore throat, lymphadenopathy, carotid bruits or deformity. RESPIRATORY: Significant shortness of breath cough wheezes. CARDIOVASCULAR: Has a PND or 20 palpitation. GASTROINTESTINAL: Recurrent GI bleed with black stool and tarry stool significant abdominal pain and discomfort with change in bowel habit. GENITOURINARY: Negative for Hematuria or UTI, no kidney stones. INTEGUMENT/BREAST: Negative for any muscular injury with mild osteoarthritis.. HEMATOLOGIC/LYMPHATIC: Negative for bleed or purpura. Her current anemia MUSCULOSKELTAL: Negative for Myalgia or arthralgia. Dialyze muscle and joint pain along with back pain. NEURLOGICAL: No LOC, Sz or syncope, blurred vision dizziness or abnormality.. BEHAVIORAL/PSYCH: Negative. ENDOCRINE: Negative. Past Medical History Past Medical History: Heart Failure, COPD, Diabetes Mellitus, GI Bleed, Pneumonia, Respiratory Disorder Additional Past Medical History / Comment(s): heart murmur, neuropathy Last Myocardial Infarction Date:: 2018 History of Any Multi-Drug Resistant Organisms: None Reported Date of last positivie culture/infection: 04/2019 MDRO Source:: URINE Past Surgical History: Section, Cholecystectomy, Heart Catheterization, Hysterectomy, Orthopedic Surgery Additional Past Surgical History / Comment(s): Gi cauterization 02/22/2020; heart cath 12/26/2019; cataracts removal, lens placement. Past Anesthesia/Blood Transfusion Reactions: Previous Problems w/ Anesthesia Additional Past Anesthesia/Blood Transfusion Reaction / Comment(s): ALLERGY TO CISATRACURIUM- FACE TURNED RED/SWOLLEN Smoking Status: Former smoker - Past Family History Mother Family Medical History: Renal Disease Additional Family Medical History / Comment(s): Mother was on Hemodilaysis Medications and Allergies Home Medications Medication Instructions Recorded Confirmed Type Albuterol Inhaler [Ventolin Hfa 1 - 2 puff INHALATION RT-QID PRN 03/09/20 06/17/20 History Inhaler] Albuterol Nebulized [Ventolin 2.5 mg INHALATION RT-QID PRN 03/09/20 06/17/20 History Nebulized] Atorvastatin [Lipitor] 40 mg PO DAILY 03/09/20 06/17/20 History Budesonide-Formot 160-4.5 Mcg 2 puff INHALATION RT-BID 03/09/20 06/17/20 History [Symbicort 160-4.5 Mcg Inhaler] Glimepiride [Amaryl] 2 mg PO DAILY 03/09/20 06/17/20 History Isosorbide Mononitrate ER [Imdur] 30 mg PO DAILY 03/09/20 06/17/20 History Levothyroxine Sodium 125 mcg PO DAILY 03/09/20 06/17/20 History Montelukast Sodium [Singulair] 10 mg PO HS 03/09/20 06/17/20 History Nitroglycerin Sl Tabs [Nitrostat] 0.4 mg SUBLINGUAL Q5M PRN 03/09/20 06/17/20 History Potassium Chloride ER [K-Dur 10] 10 meq PO BID 03/09/20 06/17/20 History methocarbamoL [Robaxin] 500 mg PO BID PRN 03/09/20 06/17/20 History rOPINIRole HCL [Requip] 2 mg PO BID 03/09/20 06/17/20 History sitaGLIPtin [Januvia] 100 mg PO DAILY 03/09/20 06/17/20 History Pantoprazole [Protonix] 40 mg PO BID #0 03/17/20 06/17/20 Rx Pregabalin [Lyrica] 200 mg PO BID #6 cap 03/17/20 06/17/20 Rx acetaZOLAMIDE [Diamox] 250 mg PO DAILY #30 tablet 03/17/20 06/17/20 Rx Sennosides-Docusate Sodium 1 tab PO BID PRN 03/27/20 06/17/20 History [Senokot-S] Metoprolol Tartrate [Lopressor] 100 mg PO BID 05/09/20 06/17/20 History Spironolactone [Aldactone] 25 mg PO DAILY 05/09/20 06/17/20 History amLODIPine [Norvasc] 5 mg PO DAILY 05/09/20 06/17/20 History Acetaminophen-Codeine 300-30mg 1 tab PO Q6H PRN 05/31/20 06/17/20 History [Tylenol w/codeine #3] FLUoxetine HCL [PROzac] 20 mg PO DAILY 05/31/20 06/17/20 History Insulin Aspart [NovoLOG Flexpen] See Protocol SQ ACHS PRN 05/31/20 06/17/20 History INSULIN ASPART (NovoLOG) [NovoLOG 15 unit SQ AC-TID vial 06/04/20 06/17/20 Rx (formulary)] Insulin Detemir (Levemir) [Levemir] 30 unit SQ BID@0700,2100 syr 06/04/20 06/17/20 Rx Bumetanide [BUMEX] 4 mg PO BID 06/17/20 06/17/20 History Allergies Allergy/AdvReac Type Severity Reaction Status Date / Time cisatracurium [From Nimbex] Allergy Rash/Hives Verified 06/17/20 08:14 Physical Exam Vitals: Vital Signs Temp Pulse Pulse Resp BP BP Pulse Ox 06/17/20 17:47 96.1 F L 95 16 145/78 97 06/17/20 15:59 77 20 116/50 100 06/17/20 14:00 81 18 118/49 97 06/17/20 12:02 98.3 F 84 22 116/44 95 06/17/20 11:12 87 24 143/72 92 L 06/17/20 10:20 89 22 117/52 96 06/17/20 08:56 91 22 134/65 96 06/17/20 07:47 98.1 F 95 24 130/85 96 06/17/20 06:42 98.6 F 98 22 103/69 91 L Intake and Output 06/17/20 06/17/20 06/17/20 06:59 14:59 22:59 Output Total 800 2900 Balance -800 -2900 Output: Urine 800 2900 Uretheral (Raphael) 325 Other: # Voids 4 Weight 113.398 kg 113.398 kg General Appearance: Alert, cooperative, will be obese and mild spot distress. Neck HEENT: Supple, no lymphadenopathy, no thyroid enlargement, no carotid bruits. Lungs: Decreased breath Regulo acute final rhonchi positive crackles positive mild this but espresso wheezes was seen in the right side left side. Chest Wall: Decrease expansion with deep inspiration no tenderness and no deformity was found on exam, no costochondral pain or discomfort. Heart: iRRegular rate and rhythm, S1, S2 positive this 3 +5 cm JVD with systolic murmur that packs along with systolic murmur radiating toward the left second costal space Back: Symmetric, no curvature, ROM normal, no CVA tenderness. Abdomen: Distended significant discomfort in the epigastric area and mid abdominal region area and rebound or rigidity no masses. Extremities: Extremities normal, atraumatic, significant edema Pulses: 2+ and symmetric. Skin: Skin color, texture, tugor normal, no rashes or lesions. Neurologic: Alert oriented x3 cranial nerves II through XII intact, no motor deficit, no abnormal balance or gait. Results CBC & Chem 7: 06/17/20 07:35 06/17/20 07:35 Labs: Abnormal Lab Results - Last 24 Hours (Table) 06/17/20 06/17/2006/17/20 Range/Units 07:35 07:35 12:06 WBC 19.6 H (3.8-10.6) k/uL RBC 3.38 L (3.80-5.40) m/uL Hgb 7.9 L (11.4-16.0) gm/dL Hct 27.9 L (34.0-46.0) % MCH 23.4 L (25.0-35.0) pg MCHC 28.3 L (31.0-37.0) g/dL RDW 18.3 H (11.5-15.5) % Neutrophils # 16.9 H (1.3-7.7) k/uL BUN 48 H (7-17) mg/dL Glucose 323 H (74-99) mg/dL POC Glucose (mg/dL) 345 H (75-99) mg/dL Magnesium 2.5 H (1.6-2.3) mg/dL AST 45 H (14-36) U/L Alkaline Phosphatase 140 H (38-126) U/L 06/17/20 Range/Units 17:12 WBC (3.8-10.6) k/uL RBC (3.80-5.40) m/uL Hgb (11.4-16.0) gm/dL Hct (34.0-46.0) % MCH (25.0-35.0) pg MCHC (31.0-37.0) g/dL RDW (11.5-15.5) % Neutrophils # (1.3-7.7) k/uL BUN (7-17) mg/dL Glucose (74-99) mg/dL POC Glucose (mg/dL) 140 H (75-99) mg/dL Magnesium (1.6-2.3) mg/dL AST (14-36) U/L Alkaline Phosphatase (38-126) U/L Thrombosis Risk Factor Assmnt - DVT/VTE Prophylaxis DVT/VTE Prophylaxis: Mechanical Prophylaxis ordered - Choose All That Apply Any of the Below Risk Factors Present?: Yes Each Factor Represents 1 point: Abnormal pulmonary function (COPD), Heart failure (<1month), Obesity (BMI >25), Swollen legs (current) Other Risk Factors: Yes Each Risk Factor Represents 2 Points: Age 61-74 years Thrombosis Risk Factor Assessment Total Risk Factor Score: 6 Thrombosis Risk Factor Assessment Level: High Risk Assessment and Plan Assessment: 1 acute respiratory failure: Combination of COPD exacerbation, right-sided pneumonia and most likely aspiration, CHF exacerbation along with arrhythmia and GI bleed. 2 COPD exacerbation: Patient be on Solu-Medrol along with Pulmicort and DuoNeb continue acetazolamide along with Singulair pulmonary consultation was reque sted. 3 aspiration pneumonia with worsening bilateral pneumonia patient be on gram- negative coverage at this point also waiting for culture recommendation from pulmonary recommendation n Covid test came back negative for this point. Patient was started on azithromycin and Rocephin for now. For CHF mostly diastolic dysfunction with better ejection fraction patient will be continue on IV Lasix 40 mg every 8 hours continue to watch intake and output daily weight. 5 arrhythmia: With nonsustained A. fib patient cannot be on anticoagulation still on beta ira watch pulse rate and titrate medication to keep the pulse below 90 beats per minutes. 6 type 2 diabetes more resistant with insulin, continue patient on oral agent along with Levemir and NovoLog continue Accu-Chek with sliding scales coverage titrate medication gradually. 7 valvular heart disease: With known to have severe mitral regurgitation along with significant pulmonary hypertension on medical management this point patient is not surgical candidate. 8 gastrointestinal bleed: With the current bleed from an area of the due to numb and the jejunal area patient seen gastroenterology and upper endoscopy with longer scope has been done repeatedly with cauterization patient might require partial resection as an point for recurrent bleed. 9 acute kidney injury with chronic kidney disease stage III: Continue to watch BUN/creatinine regular basis. 10 hypertension: Continue patient on amlodipine 5 mg a day, spironolactone along with metoprolol 100 mg 3 times a day. 11 hyperlipidemia: Still on atorvastatin 40 mg daily. 12 hypothyroidism: Continue patient on levothyroxine 125 g daily. 13 chronic depression: Has been on Prozac 20 mg a day. 14 chronic pain management: Remain on hydrocodone along with Lyrica. 15 GI prophylaxis: Patient be on pantoprazole IV twice a day. CODE STATUS: Full code. Admit patient to the inpatient service for more than 2 night stay.
[2020-06-17 20:15] LABS: Glucose,Whole Blood 191 mg/dL (75-99)
[2020-06-17 20:17] LABS: Anisocytosis Slight; HCT 27.4 % (34.0-46.0); HGB 7.5 gm/dL (11.4-16.0); Hypochromasia Marked; MCH 22.9 pg (25.0-35.0); MCHC 27.4 g/dL (31.0-37.0); MCV 83.5 fL (80.0-100.0); Mean Platelet Volume 7.3; Microcytosis Slight; Platelet Count 232 k/uL (150-450); Poikilocytosis Slight; RBC 3.28 m/uL (3.80-5.40); RDW 18.6 % (11.5-15.5); WBC 20.4 k/uL (3.8-10.6)
[2020-06-17] MEDS: FUROSEMIDE 10 MG/ML 4 ML VIAL IV SCH (20:21)
[2020-06-17] MEDS: BUMETANIDE 1 MG TAB PO SCH (20:21)
[2020-06-17] MEDS: INSULIN DETEMIR (LEVEMIR) 100 UNIT/ML SYR SQ SCH (20:22)
[2020-06-17] MEDS: PREGABALIN 100 MG CAP PO SCH (20:22)
[2020-06-17] MEDS: METOPROLOL TARTRATE 50 MG TAB PO SCH (20:22)
[2020-06-17] MEDS: POTASSIUM CHLORIDE ER 10 MEQ TAB.ER.PRT PO SCH (20:22)
[2020-06-17] MEDS: MONTELUKAST 10 MG TAB PO SCH (20:22)
[2020-06-17] MEDS: PANTOPRAZOLE 40 MG TABLET PO SCH (20:22)
[2020-06-17 20:31] LABS: Albumin 3.7 g/dL (3.5-5.0); Calcium 8.9 mg/dL (8.4-10.2); Potassium 4.1 mmol/L (3.5-5.1); Total Bilirubin 0.3 mg/dL (0.2-1.3); Total Protein 6.7 g/dL (6.3-8.2)
[2020-06-17] MEDS: SYMBICORT 160-4.5 MCG INHALER INHALATION SCH (20:52)
[2020-06-17] MEDS ORDERED: LORazepam 2 MG/ML INJ IV STA (20:56)
[2020-06-18] MEDS: LORazepam 2 MG/ML INJ IV PRN ×2 (00:31→17:44)
[2020-06-18 06:09] LABS: Glucose,Whole Blood 133 mg/dL (75-99)
[2020-06-18] MEDS: LEVOTHYROXINE 125 MCG TAB PO SCH (06:22)
[2020-06-18] MEDS: INSULIN ASPART (NovoLOG) 100 UNIT/ML VIAL SQ SCH ×7 (07:07→20:16)
[2020-06-18 07:27] LABS: Glucose,Whole Blood 120 mg/dL (75-99)
[2020-06-18] MEDS: SYMBICORT 160-4.5 MCG INHALER INHALATION SCH ×2 (07:54→20:50)
[2020-06-18 08:12] LABS: Anisocytosis Slight; HCT 24.8 % (34.0-46.0); HGB 7.1 gm/dL (11.4-16.0); Hypochromasia Marked; MCH 23.3 pg (25.0-35.0); MCHC 28.6 g/dL (31.0-37.0); MCV 81.4 fL (80.0-100.0); Mean Platelet Volume 7.6; Microcytosis Slight; Platelet Count 236 k/uL (150-450); Poikilocytosis Slight; RBC 3.05 m/uL (3.80-5.40); RDW 18.7 % (11.5-15.5)
[2020-06-18] MEDS: PANTOPRAZOLE 40 MG TABLET PO SCH ×2 (08:59→20:12)
[2020-06-18] MEDS: PREGABALIN 100 MG CAP PO SCH ×2 (08:59→20:12)
[2020-06-18] MEDS: BUMETANIDE 1 MG TAB PO SCH (08:59)
[2020-06-18] MEDS: FUROSEMIDE 10 MG/ML 4 ML VIAL IV SCH ×2 (09:00→20:12)
[2020-06-18] MEDS: FLUoxetine HCL 20 MG CAP PO SCH (09:00)
[2020-06-18] MEDS ORDERED: SPIRONOLACTONE 25 MG TAB PO SCH (09:00)
[2020-06-18] MEDS: METOPROLOL TARTRATE 50 MG TAB PO SCH ×2 (09:00→20:12)
[2020-06-18] MEDS: POTASSIUM CHLORIDE ER 10 MEQ TAB.ER.PRT PO SCH ×2 (09:00→20:12)
[2020-06-18] MEDS: acetaZOLAMIDE 250 MG TAB PO SCH (09:00)
[2020-06-18] MEDS: ISOSORBIDE MONONITRATE ER 30 MG TAB.ER.24H PO SCH (09:00)
[2020-06-18] MEDS: LINAGLIPTIN 5 MG TABLET PO SCH (09:00)
[2020-06-18] MEDS: GLIMEPIRIDE 2 MG TAB PO SCH (09:00)
[2020-06-18] MEDS: amLODIPine 5 MG TAB PO SCH (09:00)
[2020-06-18] MEDS: ATORVASTATIN 40 MG TAB PO SCH (09:00)
[2020-06-18] MEDS ORDERED: FUROSEMIDE 10 MG/ML 2 ML VIAL IV ONE ×2 (09:28→18:15)
[2020-06-18] MEDS: INSULIN DETEMIR (LEVEMIR) 100 UNIT/ML SYR SQ SCH ×2 (09:49→20:19)
[2020-06-18 11:46] LABS: Glucose,Whole Blood 163 mg/dL (75-99)
[2020-06-18 12:13] LABS: Glucose,Whole Blood 172 mg/dL (75-99)
--- NOTE | 2020-06-18 12:34 | P.CRDCN ---
History of Present Illness Consult date: 06/18/20 History of present illness: CHIEF COMPLAINT: CHF HISTORY OF PRESENT ILLNESS: This is a 65-year-old female with a past medical history significant for COPD, former nicotine dependence, hyperlipidemia, hypertension, congestive heart failure, and GI bleed. Patient follows in the office with Dr. Yang. We have been asked to see the patient in consultation for congestive heart failure. Patient was recently hospitalized earlier this month for COPD, CHF, and anemia. Patient underwent an EGD with Dr. 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 She underwent repeat EGD during most recent admission revealing no active bleeding, old blood or pathology noted to explain patient's symptoms of melena and anemia. Mild gastritis. She reports still having intermittent black stools at home. Patient presents back to the hospital yesterday secondary to shortness of breath. She states she has been taking all her medications as prescribed. She reports limiting her salt intake. She denies chest pain or pressure. She is currently on 15L eating breakfast. She appears mildly short of breath. Nursing reports patient has been wearing bipap when she is not eating. DIAGNOSTICS: EKG reveals sinus mechanism with no signs of acute ischemia Chest xray correlate for congestive heart failure and pneumonia Laboratory data: WBC 20.4. Hemoglobin 7.5. Platelet count 232. Sodium 141. Potassium 4.1. BUN 33. Creatinine 0.98. Troponin negative 1. BNP 1970. Current home cardiac medications include Norvasc 5 mg daily, Diamox 250 mrem daily, Aldactone 25 mg daily, metoprolol 100 mg twice a day, Imdur 30 mg daily, Bumex 4 mg twice a day, Lipitor 40 mg daily REVIEW OF SYSTEMS: At the time of my exam: CONSTITUTIONAL: Denies fever or chills. HEENT: Denies blurred vision, vision changes, or eye pain. Denies hemoptysis CARDIOVASCULAR: Denies chest pain, orthopnea, PND or palpitations RESPIRATORY: Reports shortness of breath. GASTROINTESTINAL: Denies abdominal pain. Denies nausea or vomiting. HEMATOLOGIC: Denies bleeding disorders. GENITOURINARY: Denies any blood in urine. SKIN: Denies pruitis. Denies rash. PHYSICAL EXAM: VITAL SIGNS: Reviewed. GENERAL: Well-developed in no acute distress, however she does appear short of breath. HEENT: Head is normocephalic. Pupils are equal, round. Sclerae anicteric. Mucous membranes of the mouth are moist. Neck supple. No JVD or thyromegaly LUNGS: Respirations even and unlabored. Lungs diminished with rales to bilateral bases. HEART: Regular rate and rhythm. S1 and S2 heard. Systolic murmur noted. ABDOMEN: Soft. Nondistended. Nontender. EXTREMITIES: Normal range of motion. No clubbing or cyanosis. Peripheral pulses intact. 1-2 + bilateral lower extremity edema NEUROLOGIC: Awake and alert. Oriented x 3. ASSESSMENT: Shortness of breath Bilateral pneumonia Acute exacerbation of COPD Acute mild exacerbation of chronic diastolic congestive heart failure, EF 55-60% Anemia with reports of continued dark stools at home, status post EGD 05/2020 Valvular heart disease: moderate aortic stenosis and moderate mitral stenosis Moderate pulmonary hypertension Hypertension Hyperlipidemia Diabetes mellitus, type II Former nicotine dependence PLAN: Resume home cardiac medications Repeat 2D echo to assess cardiac structure and function Patient to receive 1 unit RBC per internal medicine. Monitor hemoglobin. GI on consult for anemia and continued black stools at home Continue IV lasix: 40mg Q12 hours. Daily weights Accurate I&O Monitor kidney function Further recommendations pending patient course Nurse practitioner note has been reviewed by physician. Signing provider agrees with the documented findings, assessment, and plan of care. Past Medical History Past Medical History: Heart Failure, COPD, Diabetes Mellitus, GI Bleed, Pneumonia, Respiratory Disorder Additional Past Medical History / Comment(s): heart murmur, neuropathy Last Myocardial Infarction Date:: 2018 History of Any Multi-Drug Resistant Organisms: None Reported Date of last positivie culture/infection: 04/2019 MDRO Source:: URINE Past Surgical History: Section, Cholecystectomy, Heart Catheterization, Hysterectomy, Orthopedic Surgery Additional Past Surgical History / Comment(s): Gi cauterization 02/22/2020; heart cath 12/26/2019; cataracts removal, lens placement. Past Anesthesia/Blood Transfusion Reactions: Previous Problems w/ Anesthesia Additional Past Anesthesia/Blood Transfusion Reaction / Comment(s): ALLERGY TO CISATRACURIUM- FACE TURNED RED/SWOLLEN Smoking Status: Former smoker - Past Family History Mother Family Medical History: Renal Disease Additional Family Medical History / Comment(s): Mother was on Hemodilaysis Medications and Allergies Home Medications Medication Instructions Recorded Confirmed Type Albuterol Inhaler [Ventolin Hfa 1 - 2 puff INHALATION RT-QID PRN 03/09/20 06/17/20 History Inhaler] Albuterol Nebulized [Ventolin 2.5 mg INHALATION RT-QID PRN 03/09/20 06/17/20 History Nebulized] Atorvastatin [Lipitor] 40 mg PO DAILY 03/09/20 06/17/20 History Budesonide-Formot 160-4.5 Mcg 2 puff INHALATION RT-BID 03/09/20 06/17/20 History [Symbicort 160-4.5 Mcg Inhaler] Glimepiride [Amaryl] 2 mg PO DAILY 03/09/20 06/17/20 History Isosorbide Mononitrate ER [Imdur] 30 mg PO DAILY 03/09/20 06/17/20 History Levothyroxine Sodium 125 mcg PO DAILY 03/09/20 06/17/20 History Montelukast Sodium [Singulair] 10 mg PO HS 03/09/20 06/17/20 History Nitroglycerin Sl Tabs [Nitrostat] 0.4 mg SUBLINGUAL Q5M PRN 03/09/20 06/17/20 History Potassium Chloride ER [K-Dur 10] 10 meq PO BID 03/09/20 06/17/20 History methocarbamoL [Robaxin] 500 mg PO BID PRN 03/09/20 06/17/20 History rOPINIRole HCL [Requip] 2 mg PO BID 03/09/20 06/17/20 History sitaGLIPtin [Januvia] 100 mg PO DAILY 03/09/20 06/17/20 History Pantoprazole [Protonix] 40 mg PO BID #0 03/17/20 06/17/20 Rx Pregabalin [Lyrica] 200 mg PO BID #6 cap 03/17/20 06/17/20 Rx acetaZOLAMIDE [Diamox] 250 mg PO DAILY #30 tablet 03/17/20 06/17/20 Rx Sennosides-Docusate Sodium 1 tab PO BID PRN 03/27/20 06/17/20 History [Senokot-S] Metoprolol Tartrate [Lopressor] 100 mg PO BID 05/09/20 06/17/20 History Spironolactone [Aldactone] 25 mg PO DAILY 05/09/20 06/17/20 History amLODIPine [Norvasc] 5 mg PO DAILY 05/09/20 06/17/20 History Acetaminophen-Codeine 300-30mg 1 tab PO Q6H PRN 05/31/20 06/17/20 History [Tylenol w/codeine #3] FLUoxetine HCL [PROzac] 20 mg PO DAILY 05/31/20 06/17/20 History Insulin Aspart [NovoLOG Flexpen] See Protocol SQ ACHS PRN 05/31/20 06/17/20 History INSULIN ASPART (NovoLOG) [NovoLOG 15 unit SQ AC-TID vial 06/04/20 06/17/20 Rx (formulary)] Insulin Detemir (Levemir) [Levemir] 30 unit SQ BID@0700,2100 syr 06/04/20 06/17/20 Rx Bumetanide [BUMEX] 4 mg PO BID 06/17/20 06/17/20 History Allergies Allergy/AdvReac Type Severity Reaction Status Date / Time cisatracurium [From Nimbex] Allergy Rash/Hives Verified 06/17/20 08:14 Physical Exam Vitals: Vital Signs Temp Pulse Pulse Resp BP BP Pulse Ox 06/18/20 08:50 100 06/18/20 08:40 75 20 06/18/20 08:38 98.3 F 75 20 127/57 98 06/18/20 03:31 99.3 F 76 22 116/58 96 06/18/20 01:57 88 24 06/18/20 00:00 98.1 F 88 24 138/65 96 06/17/20 20:00 98.4 F 104 H 22 141/70 94 L 06/17/20 17:47 96.1 F L 95 16 145/78 97 06/17/20 15:59 77 20 116/50 100 06/17/20 14:00 81 18 118/49 97 Intake and Output 06/17/20 06/18/20 06/18/20 22:59 06:59 14:59 Intake Total 10 0 Output Total 2900 2200 Balance -2900 -2190 0 Intake: IV 10 0.9 10 Oral 0 Output: Urine 2900 2200 Other: Voiding Method Indwelling Catheter Indwelling Catheter Indwelling Catheter # Voids 4 Weight 113.398 kg 109 kg Results 06/18/20 07:41 06/17/20 19:55 Cardiac Enzymes 06/17/20 Range/Units 19:55 AST 32 (14-36) U/L CBC 06/17/20 06/18/20 Range/Units 20:00 07:41 WBC 20.4 H 16.0 H (3.8-10.6) k/uL RBC 3.28 L 3.05 L (3.80-5.40) m/uL Hgb 7.5 L 7.1 L (11.4-16.0) gm/dL Hct 27.4 L 24.8 L (34.0-46.0) % Plt Count 232 236 (150-450) k/uL Comprehensive Metabolic Panel 06/17/20 Range/Units 19:55 Sodium 141 (137-145) mmol/L Potassium 4.1 (3.5-5.1) mmol/L Chloride 105 (98-107) mmol/L Carbon Dioxide 31 H (22-30) mmol/L BUN 33 H (7-17) mg/dL Creatinine 0.98 (0.52-1.04) mg/dL Glucose 163 H (74-99) mg/dL Calcium 8.9 (8.4-10.2) mg/dL AST 32 (14-36) U/L ALT 20 (4-34) U/L Alkaline Phosphatase 150 H (38-126) U/L Total Protein 6.7 (6.3-8.2) g/dL Albumin 3.7 (3.5-5.0) g/dL Current Medications Generic Name Dose Route Start Last Admin Trade Name Freq PRN Reason Stop Dose Admin Acetaminophen/Codeine Phosphate 1 each 06/17/20 18:45 Acetaminophen-Codeine 300-30mg Tab PO Q6H PRN Pain Acetazolamide 250 mg 06/18/20 09:00 06/18/20 09:00 Acetazolamide 250 Mg Tab PO 250 mg DAILY SARATH Administration Albuterol Sulfate 2.5 mg 06/17/20 18:45 Albuterol Nebulized 2.5 Mg/3 Ml INHALATION RT-QID PRN Shortness Of Breath Amlodipine Besylate 5 mg 06/18/20 09:00 06/18/20 09:00 Amlodipine 5 Mg Tab PO 5 mg DAILY SARATH Administration Atorvastatin Calcium 40 mg 06/18/20 09:00 06/18/20 09:00 Atorvastatin 40 Mg Tab PO 40 mg DAILY SARATH Administration Budesonide/Formoterol Fumarate 2 puff 06/17/20 20:00 06/18/20 07:54 Symbicort 160-4.5 Mcg Inhaler INHALATION Not Given RT-BID SARATH Fluoxetine HCl 20 mg 06/18/20 09:00 06/18/20 09:00 Fluoxetine Hcl 20 Mg Cap PO 20 mg DAILY SARATH Administration Furosemide 40 mg 06/17/20 21:00 06/18/20 09:00 Furosemide 10 Mg/Ml 4 Ml Vial IV 40 mg Q12H SARATH Administration Glimepiride 2 mg 06/18/20 09:00 06/18/20 09:00 Glimepiride 2 Mg Tab PO 2 mg DAILY SARATH Administration Insulin Aspart 0 unit 06/17/20 12:30 06/18/20 07:07 Insulin Aspart (Novolog) 100 Unit/Ml Vial SQ Not Given ACHS [facility] Protocol Insulin Aspart 15 unit 06/18/20 07:30 06/18/20 09:50 Insulin Aspart (Novolog) 100 Unit/Ml Vial SQ Not Given AC-TID [facility] Insulin Detemir 30 unit 06/17/20 21:00 06/18/20 09:49 Insulin Detemir (Levemir) 100 Unit/Ml Syr SQ 30 unit BID@0700,2100 [facility] Administration Isosorbide Mononitrate 30 mg 06/18/20 09:00 06/18/20 09:00 Isosorbide Mononitrate Er 30 Mg Tab.Er.24h PO 30 mg DAILY SARATH Administration Levothyroxine Sodium 125 mcg 06/18/20 06:30 06/18/20 06:22 Levothyroxine 125 Mcg Tab PO 125 mcg DAILY@0630 [facility] Administration Linagliptin 5 mg 06/18/20 09:00 06/18/20 09:00 Linagliptin 5 Mg Tablet PO 5 mg DAILY SARATH Administration Lisinopril 5 mg 06/19/20 09:00 Lisinopril 5 Mg Tab PO DAILY SARATH Lorazepam 0.5 mg 06/18/20 00:24 06/18/20 00:31 Lorazepam 2 Mg/Ml Inj IV 0.5 mg Q6HR PRN Administration Anxiety Methocarbamol 500 mg 06/17/20 18:45 Methocarbamol 500 Mg Tab PO BID PRN Muscle Spasm Metoprolol Tartrate 100 mg 06/17/20 21:00 06/18/20 09:00 Metoprolol Tartrate 50 Mg Tab PO 100 mg BID SARATH Administration Montelukast Sodium 10 mg 06/17/20 21:00 06/17/20 20:22 Montelukast 10 Mg Tab PO 10 mg HS SARATH Administration Nitroglycerin 0.4 mg 06/17/20 18:45 Nitroglycerin Sl Tabs 0.4 Mg Tab SUBLINGUAL Q5M PRN Chest Pain Pantoprazole Sodium 40 mg 06/17/20 21:00 06/18/20 08:59 Pantoprazole 40 Mg Tablet PO 40 mg BID SARATH Administration Potassium Chloride 10 meq 06/17/20 21:00 06/18/20 09:00 Potassium Chloride Er 10 Meq Tab.Er.Prt PO 10 meq BID SARATH Administration Pregabalin 200 mg 06/17/20 21:00 06/18/20 08:59 Pregabalin 100 Mg Cap PO 200 mg BID SARATH Administration Ropinirole HCl 2 mg 06/17/20 21:00 06/18/20 08:59 Ropinirole Hcl 1 Mg Tab PO 2 mg BID SARATH Administration Senna/Docusate Sodium 1 each 06/17/20 18:45 Sennosides-Docusate Sodium 1 Each Tab PO BID PRN Constipation Intake and Output 06/17/20 06/18/20 06/18/20 22:59 06:59 14:59 Intake Total 10 0 Output Total 2900 2200 Balance -2900 -2190 0 Intake: IV 10 0.9 10 Oral 0 Output: Urine 2900 2200 Other: Voiding Method Indwelling Catheter Indwelling Catheter Indwelling Catheter # Voids 4 Weight 113.398 kg 109 kg 06/18/20 07:41 06/17/20 19:55
--- NOTE | 2020-06-18 13:25 | P.PN ---
Subjective 65-year-old female one of my office patient with multiple medical problem with recurrent visit to [facility] with GI bleed multiple endoscopy with cauterization done in the last few weeks. Patient was in the hospital over 3 weeks ago for worsening dyspnea and shortness of breath consistent with GI bleed and severe anemia cause worsening respiratory failure the time along with bilateral pneumonia and fluid overload was treated ended up having blood transfusion ended up going to the endoscopy unit with EGD done with Dr. Ivy with more than 2 area cauterized at the time and ended up having capsule endoscopy which analysis did not show any major abnormality at the time. Patient was seen in the office for follow-up hemoglobin was still running in the mid 8-90 g at the time last week was seen and done well. Patient developed to have worsening dyspnea and shortness of breath along with mid abdominal pain and discomfort with sharp discomfort under the xiphoid. Patient was in acute respiratory distress: 911 and ended up being transferred to [facility] at [facility] where was seen and evaluated her hemoglobin was slightly bit lower at the time. Patient chest x-ray showed significant infiltrate with advance COPD and fluid overload the patient was started on IV diuretics mixup with graft treatment will be seen cardiology and pulmonary Hemoccult was order and patient be seen gastroenterology for possible need for another endoscopy if needed. Almost the possibility for intervention or surgical intervention for harsher section can be the best next step which patient is not a candidate for this point. [place] no exposure to Covid 19 recently and testing is negative. 06/18: Patient was evaluated this morning, noted to be sitting up in bed. She has complaints of shortness of breath, BiPAP in place, she is noted to be tachypenic, her oxygen saturation is 99%, her blood pressure is stable 128/58, heart rate of 70, respiratory rate 28. Hemoglobin did drop from yesterday to 7.1, 1 unit of packed red blood cells were ordered with a dose of IV Lasix. Patient continues to be diuresed with IV Lasix, weight is down 8 pounds since admission. Willl continue to monitor CBC closely. Cardiology, GI, and pulmo nary on consult. Objective - Vital Signs Vital signs: Vital Signs Temp 98.3 F 06/18/20 08:38 Pulse 70 06/18/20 12:00 Resp 20 06/18/20 12:00 BP 128/58 06/18/20 12:00 Pulse Ox 99 06/18/20 12:00 Intake & Output 06/17/20 06/18/20 06/18/20 18:59 06:59 18:59 Intake Total 10 0 Output Total 3700 2200 Balance -3700 -2190 0 Weight 113.398 kg 109 kg Intake: IV 10 0.9 10 Oral 0 Output: Urine 3700 2200 Uretheral (Raphael) 325 Other: Voiding Method Indwelling Catheter Indwelling Catheter # Voids 4 - Exam General Appearance: Alert, cooperative, mild respiratory distress Neck HEENT: Supple, no lymphadenopathy, no thyroid enlargement, no carotid bruits. Lungs: Decreased breath Regulo acute final rhonchi positive crackles positive mild this but espresso wheezes was seen in the right side left side. Chest Wall: Decrease expansion with deep inspiration no tenderness and no deformity was found on exam, no costochondral pain or discomfort. Heart: iRRegular rate and rhythm, S1, S2 positive this 3 +5 cm JVD with systolic murmur that packs along with systolic murmur radiating toward the left second costal space Back: Symmetric, no curvature, ROM normal, no CVA tenderness. Abdomen: Distended significant discomfort in the epigastric area and mid abdominal region area and rebound or rigidity no masses. Extremities: Extremities normal, atraumatic, significant edema Pulses: 2+ and symmetric. Skin: Skin color, texture, tugor normal, no rashes or lesions. Neurologic: Alert oriented x3 cranial nerves II through XII intact, no motor deficit, no abnormal balance or gait. - Labs CBC & Chem 7: 06/18/20 07:41 06/17/20 19:55 Labs: Abnormal Lab Results - Last 24 Hours (Table) 06/17/20 06/17/20 06/17/20 Range/Units 17:12 19:55 20:00 WBC 20.4 H (3.8-10.6) k/uL RBC 3.28 L (3.80-5.40) m/uL Hgb 7.5 L (11.4-16.0) gm/dL Hct 27.4 L (34.0-46.0) % MCH 22.9 L (25.0-35.0) pg MCHC 27.4 L (31.0-37.0) g/dL RDW 18.6 H (11.5-15.5) % Carbon Dioxide 31 H (22-30) mmol/L BUN 33 H (7-17) mg/dL Glucose 163 H (74-99) mg/dL POC Glucose (mg/dL) 140 H (75-99) mg/dL Alkaline Phosphatase 150 H (38-126) U/L 06/17/20 06/18/20 06/18/20 Range/Units 20:12 06:00 07:07 WBC (3.8-10.6) k/uL RBC (3.80-5.40) m/uL Hgb (11.4-16.0) gm/dL Hct (34.0-46.0) % MCH (25.0-35.0) pg MCHC (31.0-37.0) g/dL RDW (11.5-15.5) % Carbon Dioxide (22-30) mmol/L BUN (7-17) mg/dL Glucose (74-99) mg/dL POC Glucose (mg/dL) 191 H 133 H 120 H (75-99) mg/dL Alkaline Phosphatase (38-126) U/L 06/18/20 06/18/20 06/18/20 Range/Units 07:41 11:43 12:08 WBC 16.0 H (3.8-10.6) k/uL RBC 3.05 L (3.80-5.40) m/uL Hgb 7.1 L (11.4-16.0) gm/dL Hct 24.8 L (34.0-46.0) % MCH 23.3 L (25.0-35.0) pg MCHC 28.6 L (31.0-37.0) g/dL RDW 18.7 H (11.5-15.5) % Carbon Dioxide (22-30) mmol/L BUN (7-17) mg/dL Glucose (74-99) mg/dL POC Glucose (mg/dL) 163 H 172 H (75-99) mg/dL Alkaline Phosphatase (38-126) U/L Assessment and Plan Plan: 1 acute respiratory failure: Combination of COPD exacerbation, right-sided pneumonia and most likely aspiration, CHF exacerbation along with arrhythmia and GI bleed. 2 COPD exacerbation: Patient be on Solu-Medrol along with Pulmicort and DuoNeb continue acetazolamide along with Singulair pulmonary consultation was r equested. 3 aspiration pneumonia with worsening bilateral pneumonia patient be on gram- negative coverage at this point also waiting for culture recommendation from pulmonary recommendation n Covid test came back negative for this point. Patient was started on azithromycin and Rocephin for now. For CHF mostly diastolic dysfunction with better ejection fraction patient will be continue on IV Lasix 40 mg every 8 hours continue to watch intake and output daily weight. 5 arrhythmia: With nonsustained A. fib patient cannot be on anticoagulation still on beta ira watch pulse rate and titrate medication to keep the pulse below 90 beats per minutes. 6 type 2 diabetes more resistant with insulin, continue patient on oral agent along with Levemir and NovoLog continue Accu-Chek with sliding scales coverage titrate medication gradually. 7 valvular heart disease: With known to have severe mitral regurgitation along with significant pulmonary hypertension on medical management this point patient is not surgical candidate. 8 gastrointestinal bleed: With the current bleed from an area of the due to numb and the jejunal area patient seen gastroenterology and upper endoscopy with longer scope has been done repeatedly with cauterization patient might require partial resection as an point for recurrent bleed. Will transfuse 1 unit of PRBCs today 9 acute kidney injury with chronic kidney disease stage III: Continue to watch BUN/creatinine regular basis. 10 hypertension: Continue patient on amlodipine 5 mg a day, spironolactone along with metoprolol 100 mg 3 times a day. 11 hyperlipidemia: Still on atorvastatin 40 mg daily. 12 hypothyroidism: Continue patient on levothyroxine 125 g daily. 13 chronic depression: Has been on Prozac 20 mg a day. 14 chronic pain management: Remain on hydrocodone along with Lyrica. 15 GI prophylaxis: Patient be on pantoprazole IV twice a day. The above impression and plan of care have been discussed and directed by signing physician. Tea Rogers nurse practitioner acting as scribe for signing physician.
--- NOTE | 2020-06-18 15:06 | CONS ---
CONSULTATION DATE OF DICTATION: June 18, 2020 REASON FOR CONSULTATION: Recurrent anemia and black tarry stools. HISTORY OF PRESENT ILLNESS: The patient is a 65-year-old pleasant white female with history of COPD, congestive heart failure, and recurrent GI bleeds admitted to the hospital with worsening shortness of breath and dyspnea and some black tarry stools. She came into the emergency room and subsequently admitted to the hospital for exacerbation of COPD/exacerbation of congestive heart failure. While in the hospital she was noted to have a hemoglobin that was 7.5 g/dL and 2 weeks ago when she was discharged from the hospital it was 8.5 g/dL. This morning repeat hemoglobin was 7.1. Patient denies any active bleeding. She reports no melena during this hospitalization. The patient had multiple hospitalizations over the last 6 months with recurrent GI bleed. She was initially seen here in February of 2020 at which time an upper endoscopy was done that was normal. Subsequently she was admitted to the hospital in April of 2020. She had an EGD with small bowel enteroscopy done that revealed a nonbleeding duodenal angioectasia that was cauterized. Following discharge from the hospital, she was admitted on June 03 and had a small bowel capsule endoscopy done by Dr. Bess, which revealed once again a nonbleeding angioectasia in the proximal small bowel and the next day she underwent an EGD/push enteroscopy and no lesions were identified. The patient recalls having a colonoscopy at [facility] in early part of this year. PAST MEDICAL HISTORY: Significant for hypertension, hyperlipidemia, congestive heart failure, COPD, recurrent iron deficiency anemia with GI bleeds, history of diabetes mellitus and peripheral neuropathy. PAST SURGICAL HISTORY: , cholecystectomy, cardiac catheterization, hysterectomy. MEDICATIONS: Medications at home include insulin, Bumex, Prozac, Norvasc, Aldactone, Lopressor, Januvia, Requip, Robaxin, potassium chloride, Nitrostat, Singulair levothyroxine, Imdur, albuterol, Lipitor, Symbicort, and Amaryl. ALLERGIES: NIMBEX. SOCIAL HISTORY: No smoking. No alcohol use. FAMILY HISTORY: Mother had chronic kidney disease on hemodialysis. REVIEW OF SYSTEMS: CARDIOPULMONARY: She does complain of shortness of breath. GENITOURINARY: No dysuria or hematuria. MUSCULOSKELETAL: Unremarkable. SKIN: Unremarkable. ENDOCRINE: Unremarkable. PSYCHIATRIC: Unremarkable. NEUROLOGY: Unremarkable. ENT/VISION: Unremarkable. CONSTITUTIONAL: No recent weight loss. No fever, chills, night sweats. PHYSICAL EXAMINATION: She is presently on BiPAP. VITAL SIGNS: Show a blood pressure of 128/56, pulse rate 70, temperature HEENT: Examination unremarkable. Conjunctivae pink. Sclerae anicteric. Oral cavity, no lesions. NECK: No JVD or lymph node enlargement. CHEST: Clear to auscultation. HEART: Regular rate and rhythm except decreased breath sounds bilaterally. ABDOMEN: Soft. Bowel sounds are positive. No organomegaly. EXTREMITIES: No pedal edema. SKIN: No rashes. NEUROLOGIC: Alert and oriented x3. No focal deficits. LABS: Labs from yesterday WBC 20, hemoglobin 7.5, platelets 232. BUN and creatinine are 33 and 0.98 respectively. Today, hemoglobin is down to 7.1 g/dL. WBC 16. IMPRESSION: 1. Exacerbation of chronic obstructive pulmonary disease/congestive heart failure, presently on BiPAP and broad-spectrum antibiotics as well as IV steroids. 2. Recurrent gastrointestinal bleed with iron deficiency anemia requiring multiple blood transfusions over the last 6 months. As mentioned above, she had an upper endoscopy in February of 2020, EGD/push enteroscopy in April of 2020, a small bowel capsule endoscopy June 03, 2020 and EGD with push enteroscopy by Dr. Bess on June 04, 2020, all of which revealed nonbleeding angioectasia in the proximal jejunum that was cauterized several times. She now presents with recurrent anemia, likely as a result of subacute bleeding from the small bowel angioectasia. She does recall having a colonoscopy at [facility] in beginning of this year that was unremarkable. RECOMMENDATION: 1. Continue with symptomatic and supportive care. 2. Monitor CBC daily and transfuse if the hemoglobin less than 7. 3. Since the patient had multiple upper endoscopic interventions here she may be a candidate for a double balloon enteroscopy for which she needs to be referred to a tertiary center possibly [facility] as an inpatient or outpatient status if she continues to drop her hemoglobin. I discussed the plan with her and she is agreeable to it. For now, we will continue with symptomatic and supportive care and follow her closely. Thank you for this consultation. MMODL / IJN: [id number] /
--- NOTE | 2020-06-18 16:27 | CONS ---
CONSULTATION PULMONARY/CRITICAL CARE CONSULTATION: DATE OF CONSULTATION: June 18, 2020. REASON FOR CONSULTATION: This is a consultation for shortness of breath. This 65-year-old female well known to our service. She presents to the emergency department, sees Dr. Whitfield there for shortness of breath. She states that she had not been feeling well for the 24 hours prior to admission. She normally comes into the hospital with complaints of shortness of breath either related to CHF and/or COPD exacerbations. She apparently was doing her breathing treatments at home, taking all her usual medications, without relief. In addition, she admits to weight gain and leg swelling. Also, she describes orthopnea and paroxysmal nocturnal dyspnea. She denied any chest pain or chest discomfort. She just felt very fatigued and did not really have any energy. She normally uses O2 at home at 2 L, 24/7, but increased it to 4 L when she was not feeling any better. Currently, resting comfortably on BiPAP. The settings were 10/5 and 50%. She is lying on her left side in bed. CURRENT MEDICATIONS: Current medications include albuterol, updrafts with albuterol, Lipitor, Symbicort, Amaryl, Imdur, levothyroxine, Singulair, nitroglycerin tablets, K-Dur, Robaxin, Requip, Januvia, Senokot, Lopressor, Aldactone, Norvasc, Tylenol with codeine, Prozac, insulin, and Bumex. Other medications include Protonix, Lyrica, Diamox, NovoLog insulin, and Levemir insulin. ALLERGIES: CISATRACURIUM. MEDICAL HISTORY: Medical history is reviewed. She has a history of CHF, COPD, obesity, diabetes, GI bleed, chronic hypoxemic respiratory failure, neuropathy, and hypothyroidism. 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 SURGICAL HISTORY: Surgical history includes a , cholecystectomy, heart catheterization, hysterectomy, orthopedic procedures including joint replacement, heart catheterization with stenting, cataract surgery, and lens implants. SOCIAL HISTORY: Positive for previous tobacco use. She denies any alcohol or illicit drug use. FAMILY HISTORY: Positive for mother with end-stage renal disease, currently on hemodialysis. REVIEW OF SYSTEMS: CONSTITUTIONAL: Weakness. NEUROLOGIC: Negative. HEENT: Negative. CARDIOVASCULAR: Negative. PULMONARY: Shortness of breath, orthopnea, paroxysmal nocturnal dyspnea. GI: Negative. : Negative. RHEUMATOLOGIC: Negative. IMMUNOLOGIC: Negative. ENDOCRINOLOGIC: Negative. DERMATOLOGIC: Negative. PHYSICAL EXAMINATION: VITAL SIGNS: Current vital signs are reviewed. Temperature is 97.8, heart rate 94, respiratory rate 22, blood pressure 126/59, mean 81, saturations are 100% on the BiPAP. GENERAL: Appears in no acute distress. On BiPAP at 10/5 and 50%. Lying on her left side in bed. HEENT: Examination is grossly unremarkable. BiPAP mask in place. NECK: Supple. Full range of motion. No adenopathy. Neck veins are flat. CARDIOVASCULAR: Examination reveals regular rhythm and rate. Heart rate 79 beats per minute. Heart sounds are distant. LUNGS: Reveal some bibasilar crackles. Some mild expiratory rhonchi are noted as well. No wheezes. ABDOMEN: Soft, but obese. EXTREMITIES: Reveal some edema. The lower extremities are erythematous and hyperemic. There is some wrinkling of the lower extremities. Some chronic venous stasis changes are also noted. SKIN: Without rash. NEUROLOGIC: Examination is difficult to assess. She is somewhat lethargic currently. LABS: Labs are reviewed. Current white count 16, hemoglobin 7.1, hematocrit 24.8, platelet count 236,000. PT, INR, PTT normal. Sodium 141, potassium 4.1, chloride 105, CO2 of 31. Anion gap is 5. BUN and creatinine were 33 and 0.98. Magnesium 2.5. Alkaline phosphatase 150. N terminal proBNP 1970. COVID testing was negative. Microbiology including blood cultures are negative. Chest x-ray shows changes of congestive heart failure. Abdominal and pelvic CT shows right greater than left, pleural effusions. No abdominal findings noted. MEDICATIONS: Current medications are reviewed. She is on Tylenol with codeine, Diamox, albuterol, amlodipine, Lipitor, Symbicort, Prozac, Lasix, Amaryl, insulin, Imdur, levothyroxine, Tradjenta, lisinopril, Ativan, Robaxin, Lopressor, Singulair, nitroglycerin, Protonix, potassium chloride, Lyrica, Requip, and Senna. ASSESSMENT: 1. Shortness of breath, likely a combination of both heart failure and chronic obstructive pulmonary disease although I believe congestive heart failure predominates. 2. History of hyperlipidemia. 3. Diabetes mellitus. 4. Obesity. 5. Hypothyroidism. 6. History of congestive heart failure. 7. History of chronic obstructive pulmonary disease from previous tobacco use. 8. History of gastrointestinal bleed. 9. Chronic hypoxemic respiratory failure. 10.History of neuropathy. 11.Multiple other medical problems and comorbidities. PLAN: Medications are reviewed. Additional recommendations and suggestions are forthcoming. We will make sure she is on DuoNeb and Symbicort, Lasix as needed as well. We will continue to follow. Prognosis is guarded. MMODL / IJN: [id number] /
[2020-06-18 17:20] LABS: Glucose,Whole Blood 68 mg/dL (75-99)
[2020-06-18] MEDS ORDERED: FUROSEMIDE 10 MG/ML 4 ML VIAL IV ONE (18:30)
[2020-06-18 20:12] LABS: Glucose,Whole Blood 191 mg/dL (75-99)
[2020-06-18] MEDS: MONTELUKAST 10 MG TAB PO SCH (20:12)
[2020-06-19 00:09] LABS: Ferritin 25.4 ng/mL (10.0-291.0); Folate, Serum 9.5 ng/mL
[2020-06-19 00:23] LABS: % Iron Saturation 2.65 (12.00-45.00)
[2020-06-19] MEDS: LEVOTHYROXINE 125 MCG TAB PO SCH (06:36)
[2020-06-19] MEDS: INSULIN DETEMIR (LEVEMIR) 100 UNIT/ML SYR SQ SCH ×2 (06:55→20:11)
[2020-06-19] MEDS: INSULIN ASPART (NovoLOG) 100 UNIT/ML VIAL SQ SCH ×7 (06:56→20:12)
[2020-06-19] MEDS: SYMBICORT 160-4.5 MCG INHALER INHALATION SCH ×2 (07:55→19:22)
[2020-06-19 08:34] LABS: Calcium 8.8 mg/dL (8.4-10.2); Potassium 3.9 mmol/L (3.5-5.1)
[2020-06-19 08:46] LABS: Anisocytosis Slight; Basophils # (A) 0.1 k/uL (0-0.2); Basophils % (A) 0 %; Eosinophils # (A) 0.3 k/uL (0-0.7); Eosinophils % (A) 2 %; HCT 28.8 % (34.0-46.0); HGB 8.2 gm/dL (11.4-16.0); Hypochromasia Marked; Lymphocytes # (A) 1.2 k/uL (1.0-4.8); Lymphocytes % (A) 8 %; MCH 23.7 pg (25.0-35.0); MCHC 28.4 g/dL (31.0-37.0); MCV 83.3 fL (80.0-100.0); Mean Platelet Volume 8.4; Monocytes # (A) 0.9 k/uL (0-1.0); Monocytes % (A) 6 %; Neutrophils # (A) 12.1 k/uL (1.3-7.7); Neutrophils % (A) 82 %; Platelet Count 331 k/uL (150-450); Poikilocytosis Marked; RBC 3.45 m/uL (3.80-5.40); RDW 18.1 % (11.5-15.5); WBC 14.8 k/uL (3.8-10.6)
[2020-06-19] MEDS: PANTOPRAZOLE 40 MG TABLET PO SCH ×2 (08:58→20:12)
[2020-06-19] MEDS: PREGABALIN 100 MG CAP PO SCH ×2 (08:58→20:12)
[2020-06-19] MEDS: amLODIPine 5 MG TAB PO SCH (08:59)
[2020-06-19] MEDS: LINAGLIPTIN 5 MG TABLET PO SCH (08:59)
[2020-06-19] MEDS: acetaZOLAMIDE 250 MG TAB PO SCH (08:59)
[2020-06-19] MEDS: ISOSORBIDE MONONITRATE ER 30 MG TAB.ER.24H PO SCH (08:59)
[2020-06-19] MEDS: METOPROLOL TARTRATE 50 MG TAB PO SCH ×2 (08:59→20:12)
[2020-06-19] MEDS: FUROSEMIDE 10 MG/ML 4 ML VIAL IV SCH ×2 (08:59→20:11)
[2020-06-19] MEDS: ATORVASTATIN 40 MG TAB PO SCH (08:59)
[2020-06-19] MEDS: GLIMEPIRIDE 2 MG TAB PO SCH (08:59)
[2020-06-19] MEDS: POTASSIUM CHLORIDE ER 10 MEQ TAB.ER.PRT PO SCH ×2 (08:59→20:12)
[2020-06-19] MEDS: FLUoxetine HCL 20 MG CAP PO SCH (08:59)
[2020-06-19] MEDS: lisinopriL 5 MG TAB PO SCH (08:59)
--- NOTE | 2020-06-19 11:43 | P.PN ---
Subjective 65-year-old female one of my office patient with multiple medical problem with recurrent visit to [facility] department with GI bleed multiple endoscopy with cauterization done in the last few weeks. Patient was in the hospital over 3 weeks ago for worsening dyspnea and shortness of breath consistent with GI bleed and severe anemia cause worsening respiratory failure the time along with bilateral pneumonia and fluid overload was treated ended up having blood transfusion ended up going to the endoscopy unit with EGD done with Dr. Ivy with more than 2 area cauterized at the time and ended up having capsule endoscopy which analysis did not show any major abnormality at the time. Patient was seen in the office for follow-up hemoglobin was still running in the mid 8-90 g at the time last week was seen and done well. Patient developed to have worsening dyspnea and shortness of breath along with mid abdominal pain and discomfort with sharp discomfort under the xiphoid. Patient was in acute respiratory distress: 911 and ended up being transferred to [facility] at [facility] where was seen and evaluated her hemoglobin was slightly bit lower at the time. Patient chest x-ray showed significant infiltrate with advance COPD and fluid overload the patient was started on IV diuretics mixup with graft treatment will be seen cardiology and pulmonary Hemoccult was order and patient be seen gastroenterology for possible need for another endoscopy if needed. Almost the possibility for intervention or surgical intervention for harsher section can be the best next step which patient is not a candidate for this point. [place] no exposure to Covid 19 recently and testing is negative. 06/18: Patient was evaluated this morning, noted to be sitting up in bed. She has complaints of shortness of breath, BiPAP in place, she is noted to be tachypenic, her oxygen saturation is 99%, her blood pressure is stable 128/58, heart rate of 70, respiratory rate 28. Hemoglobin did drop from yesterday to 7.1, 1 unit of packed red blood cells were ordered with a dose of IV Lasix. Patient continues to be diuresed with IV Lasix, weight is down 8 pounds since admission. Willl continue to monitor CBC closely. Cardiology, GI, and pulmo nary on consult. 06/19: Patient evaluated this morning, noted to be resting in bed comfortably, in no acute distress. She is able to wean down off BiPAP and is currently on 10 L of high flow oxygen and is saturating 92%. Her vital signs remain stable she is afebrile 98.3, heart rate 77, respiratory rate of 20, blood pressure 122/58. Patient reports she is feeling slightly better and is not short of breath. Hemoglobin is stable was 8.2 after she received 1 unit of packed red blood cells yesterday. Her CO2 remains high at 42, blood cultures show no growth to date. Per GI notes no plans for upper endoscopy, patient may needs to be transferred to tertiary center for possible double-balloon enteroscopy, if GI decides on this, agreeable to the plan. We'll continue to monitor CBC closely and transfuse for hemoglobin less than 7. Objective - Vital Signs Vital signs: Vital Signs Temp 98.3 F 06/19/20 08:50 Pulse 77 06/19/20 08:50 Resp 20 06/19/20 08:50 BP 122/58 06/19/20 08:50 Pulse Ox 92 L 06/19/20 08:50 Intake & Output 06/18/20 06/19/20 06/19/20 18:59 06:59 18:59 Intake Total 550 Output Total 1575 2225 Balance -1025 -2225 Weight 107.5 kg Intake: Oral 240 Blood Product 310 Rc Irr As1 Unit 310 [id number] Output: Urine 1575 2225 Uretheral (Raphael) 575 Other: Voiding Method Indwelling Catheter Indwelling Catheter - Exam General Appearance: Alert, cooperative, continues to be in mild respiratory distress Neck HEENT: Supple, no lymphadenopathy, no thyroid enlargement, no carotid bruits. Lungs: Decreased breath Regulo acute final rhonchi positive crackles positive mild this but espresso wheezes was seen in the right side left side. Chest Wall: Decrease expansion with deep inspiration no tenderness and no deformity was found on exam, no costochondral pain or discomfort. Heart: Regular rate and rhythm, S1, S2 with systolic murmur Back: Symmetric, no curvature, ROM normal, no CVA tenderness. Abdomen: Distended significant discomfort in the epigastric area and mid abdominal region area and rebound or rigidity no masses. Extremities: Extremities normal, atraumatic, significant edema Pulses: 2+ and symmetric. Skin: Skin color, texture, tugor normal, no rashes or lesions. Neurologic: Alert oriented x3 cranial nerves II through XII intact, no motor deficit, no abnormal balance or gait. - Labs CBC & Chem 7: 06/19/20 08:03 06/19/20 08:03 Labs: Abnormal Lab Results - Last 24 Hours (Table) 06/18/20 06/18/20 06/18/20 Range/Units 07:41 11:01 11:43 WBC (3.8-10.6) k/uL RBC (3.80-5.40) m/uL Hgb (11.4-16.0) gm/dL Hct (34.0-46.0) % MCH (25.0-35.0) pg MCHC (31.0-37.0) g/dL RDW (11.5-15.5) % Neutrophils # (1.3-7.7) k/uL Chloride (98-107) mmol/L Carbon Dioxide (22-30) mmol/L BUN (7-17) mg/dL Creatinine (0.52-1.04) mg/dL Glucose (74-99) mg/dL POC Glucose (mg/dL) 163 H (75-99) mg/dL Iron 10 L (50-170) ug/dL % Saturation 2.65 L (12.00-45.00) Crossmatch See Detail 06/18/20 06/18/20 06/18/20 Range/Units 12:08 17:18 20:10 WBC (3.8-10.6) k/uL RBC (3.80-5.40) m/uL Hgb (11.4-16.0) gm/dL Hct (34.0-46.0) % MCH (25.0-35.0) pg MCHC (31.0-37.0) g/dL RDW (11.5-15.5) % Neutrophils # (1.3-7.7) k/uL Chloride (98-107) mmol/L Carbon Dioxide (22-30) mmol/L BUN (7-17) mg/dL Creatinine (0.52-1.04) mg/dL Glucose (74-99) mg/dL POC Glucose (mg/dL) 172 H 68 L 191 H (75-99) mg/dL Iron (50-170) ug/dL % Saturation (12.00-45.00) Crossmatch 06/19/20 06/19/20 Range/Units 08:03 08:03 WBC 14.8 H (3.8-10.6) k/uL RBC 3.45 L (3.80-5.40) m/uL Hgb 8.2 L (11.4-16.0) gm/dL Hct 28.8 L (34.0-46.0) % MCH 23.7 L (25.0-35.0) pg MCHC 28.4 L (31.0-37.0) g/dL RDW 18.1 H (11.5-15.5) % Neutrophils # 12.1 H (1.3-7.7) k/uL Chloride 96 L (98-107) mmol/L Carbon Dioxide 42 H* (22-30) mmol/L BUN 29 H (7-17) mg/dL Creatinine 1.12 H (0.52-1.04) mg/dL Glucose 119 H (74-99) mg/dL POC Glucose (mg/dL) (75-99) mg/dL Iron (50-170) ug/dL % Saturation (12.00-45.00) Crossmatch Microbiology - Last 24 Hours (Table) 06/17/20 10:09 Blood Culture - Preliminary Blood No Growth after 24 hours 06/17/20 09:55 Blood Culture - Preliminary Blood No Growth after 24 hours Assessment and Plan Plan: 1 acute respiratory failure: Combination of COPD exacerbation, right-sided pneumonia and most likely aspiration, CHF exacerbation along with arrhythmia and GI bleed. 2 COPD exacerbation: Patient be on Solu-Medrol along with Pulmicort and DuoNeb continue acetazolamide along with Singulair pulmonary consultation 3 aspiration pneumonia with worsening bilateral pneumonia patient be on gram- negative coverage at this point also waiting for culture and pulmonary recommendations, Covid test came back negative for this point. Patient was started on azithromycin and Rocephin for now. 4. acute CHF mostly diastolic dysfunction with better ejection fraction patient will be continue on IV Lasix 40 mg every 8 hours continue to watch intake and output daily weight. 5 arrhythmia: With nonsustained A. fib patient cannot be on anticoagulation still on beta ira watch pulse rate and titrate medication to keep the pulse below 90 beats per minutes. 6 type 2 diabetes more resistant with insulin, continue patient on oral agent along with Levemir and NovoLog continue Accu-Chek with sliding scales coverage titrate medication gradually. 7 valvular heart disease: With known to have severe mitral regurgitation along with significant pulmonary hypertension on medical management this point patient is not surgical candidate. 8 gastrointestinal bleed: With the current bleed from an area of the due to numb and the jejunal area patient seen gastroenterology and upper endoscopy with longer scope has been done repeatedly with cauterization patient might require partial resection as an point for recurrent bleed. Will transfuse 1 unit of PRBCs today 9 acute kidney injury with chronic kidney disease stage III: Continue to watch BUN/creatinine regular basis. 10 hypertension: Continue patient on amlodipine 5 mg a day, spironolactone along with metoprolol 100 mg 3 times a day. 11 hyperlipidemia: Still on atorvastatin 40 mg daily. 12 hypothyroidism: Continue patient on levothyroxine 125 g daily. 13 chronic depression: Has been on Prozac 20 mg a day. 14 chronic pain management: Remain on hydrocodone along with Lyrica. 15 GI prophylaxis: Patient be on pantoprazole IV twice a day. The above impression and plan of care have been discussed and directed by signing physician. Tea Rogers nurse practitioner acting as scribe for signing physician.
[2020-06-19] MEDS ORDERED: IPRATROPIUM-ALBUTEROL 3 ML NEB INHALATION PRN (11:45)
[2020-06-19] MEDS: IPRATROPIUM-ALBUTEROL 3 ML NEB INHALATION SCH ×2 (11:55→11:57)
--- NOTE | 2020-06-19 11:56 | PN ---
PROGRESS NOTE DATE OF DICTATION: June 19, 2020 Patient is a 65-year-old pleasant white female admitted to hospital with exacerbation of COPD, CHF, presently on BiPAP, doing better. She denies any rectal bleeding or melena. Her hemoglobin today is 8.4 g/dL. PHYSICAL EXAMINATION: Appears comfortable, no apparent distress. VITAL SIGNS: Stable. Blood pressure is 120/58, pulse rate 77, temperature 98.3. HEENT: Examination unremarkable. Conjunctivae pink. Sclerae anicteric. Oral cavity, no lesions. NECK: No JVD or lymph node enlargement. CHEST: Was clear to auscultation. HEART: Regular rate and rhythm. ABDOMEN: Soft, it was nontender, nondistended. Bowel sounds are positive. EXTREMITIES: No pedal edema. NEUROLOGIC: Alert and oriented x3. LABS: Labs from today: WBC 14.8, hemoglobin 8.2, platelets 331. BUN 29, creatinine 1.12. CO2 of 42. IMPRESSION: 1. Recurrent iron deficiency anemia with intermittent gastrointestinal bleed for the last 6 months duration. Multiple upper endoscopies/push endoscopy the last one on June [address] Bess showed small angioectasia in the jejunum that was cauterized. The patient now presents with recurrent anemia. Clinically no evidence of active bleeding. Small bowel capsule endoscopy was also done during last hospitalization on June 03 that showed nonbleeding AVM. She had a colonoscopy 6 months ago at [facility] that was negative. Hemoglobin today is 8.2, status post one unit of PRBC transfusion. 2. Exacerbation of chronic obstructive pulmonary disease/congestive heart failure, presently on BiPAP and doing better. 3. History of longstanding history of diabetes mellitus. 4. History of hypertension and hyperlipidemia. RECOMMENDATION: 1. Continue to monitor CBC and transfuse if needed. 2. Continue Protonix 40 mg daily. 3. If she has recurrent active bleeding, she needs to be transferred for tertiary care evaluation for possible small bowel balloon enteroscopy to evaluate rest of the small bowel for any that is causing the bleeding. The plan was discussed with the patient. She is agreeable to it. Thank you for this consultation. MMODL / IJN: [id number] /
[2020-06-19] MEDS ORDERED: ALBUTEROL HFA INHALER INHALATION PRN (12:03)
--- NOTE | 2020-06-19 12:09 | P.PN ---
Subjective Progress Note Date: 06/19/20 CHIEF COMPLAINT: CHF HISTORY OF PRESENT ILLNESS: 06/18/2020 This is a 65-year-old female with a past medical history significant for COPD, former nicotine dependence, hyperlipidemia, hypertension, congestive heart failure, and GI bleed. Patient follows in the office with Dr. Yang. We have been asked to see the patient in consultation for congestive heart failure. Patient was recently hospitalized earlier this month for COPD, CHF, and anemia. Patient underwent an EGD with Dr. 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 She underwent repeat EGD during most recent admission revealing no active bleeding, old blood or pathology noted to explain patient's symptoms of melena and anemia. Mild gastritis. She reports still having intermittent black stools at home. Patient presents back to the hospital yesterday secondary to shortness of breath. She states she has been taking all her medications as prescribed. She reports limiting her salt intake. She denies chest pain or pressure. She is currently on 15L eating breakfast. She appears mildly short of breath. Nursing reports patient has been wearing bipap when she is not eating. 06/19/2020 Patient examined this morning at the bedside. Patient appears more comfortable today. She states her shortness of breath has improved. She denies chest pain or pressure. She remains on IV Lasix. Fluid balance over the last 24 hours is -3 L. Blood pressure stable. Heart rate in the 60s. Hemoglobin 8.2. BUN 29. Creatinine 1.12. PHYSICAL EXAM: VITAL SIGNS: Reviewed. GENERAL: Well-developed in no acute distress, however she does appear short of breath. HEENT: Head is normocephalic. Pupils are equal, round. Sclerae anicteric. Mucous membranes of the mouth are moist. Neck supple. No JVD or thyromegaly LUNGS: Respirations even and unlabored. Lungs diminished with rales to bilateral bases. HEART: Regular rate and rhythm. S1 and S2 heard. Systolic murmur noted. ABDOMEN: Soft. Nondistended. Nontender. EXTREMITIES: Normal range of motion. No clubbing or cyanosis. Peripheral pulses intact. 1-2 + bilateral lower extremity edema NEUROLOGIC: Awake and alert. Oriented x 3. ASSESSMENT: Shortness of breath Bilateral pneumonia Acute exacerbation of COPD Acute mild exacerbation of chronic diastolic congestive heart failure, EF 55-60% Anemia with reports of continued dark stools at home, status post EGD 05/2020 Valvular heart disease: moderate aortic stenosis and moderate mitral stenosis Moderate pulmonary hypertension Hypertension Hyperlipidemia Diabetes mellitus, type II Former nicotine dependence PLAN: 2D echo obtained. Await results Continue current cardiac medications Continue IV lasix for today Daily weights Accurate I&O Monitor kidney function Further recommendations pending patient course Nurse practitioner note has been reviewed by physician. Signing provider agrees with the documented findings, assessment, and plan of care. Objective - Vital Signs Vital signs: Vital Signs Temp 98.3 F 06/19/20 08:50 Pulse 77 06/19/20 08:50 Resp 20 06/19/20 08:50 BP 122/58 06/19/20 08:50 Pulse Ox 92 L 06/19/20 08:50 Intake & Output 06/18/20 06/19/20 06/19/20 18:59 06:59 18:59 Intake Total 550 Output Total 1575 2225 Balance -1025 -2225 Weight 107.5 kg Intake: Oral 240 Blood Product 310 Rc Irr As1 Unit 310 [id number] Output: Urine 1575 2225 Uretheral (Raphael) 575 Other: Voiding Method Indwelling Catheter Indwelling Catheter - Labs CBC & Chem 7: 06/19/20 08:03 06/19/20 08:03 Labs: Abnormal Lab Results - Last 24 Hours (Table) 06/18/20 06/18/20 06/18/20 Range/Units 07:41 11:01 12:08 WBC (3.8-10.6) k/uL RBC (3.80-5.40) m/uL Hgb (11.4-16.0) gm/dL Hct (34.0-46.0) % MCH (25.0-35.0) pg MCHC (31.0-37.0) g/dL RDW (11.5-15.5) % Neutrophils # (1.3-7.7) k/uL Chloride (98-107) mmol/L Carbon Dioxide (22-30) mmol/L BUN (7-17) mg/dL Creatinine (0.52-1.04) mg/dL Glucose (74-99) mg/dL POC Glucose (mg/dL) 172 H (75-99) mg/dL Iron 10 L (50-170) ug/dL % Saturation 2.65 L (12.00-45.00) Crossmatch See Detail 06/18/20 06/18/20 06/19/20 Range/Units 17:18 20:10 08:03 WBC 14.8 H (3.8-10.6) k/uL RBC 3.45 L (3.80-5.40) m/uL Hgb 8.2 L (11.4-16.0) gm/dL Hct 28.8 L (34.0-46.0) % MCH 23.7 L (25.0-35.0) pg MCHC 28.4 L (31.0-37.0) g/dL RDW 18.1 H (11.5-15.5) % Neutrophils # 12.1 H (1.3-7.7) k/uL Chloride (98-107) mmol/L Carbon Dioxide (22-30) mmol/L BUN (7-17) mg/dL Creatinine (0.52-1.04) mg/dL Glucose (74-99) mg/dL POC Glucose (mg/dL) 68 L 191 H (75-99) mg/dL Iron (50-170) ug/dL % Saturation (12.00-45.00) Crossmatch 06/19/20 Range/Units 08:03 WBC (3.8-10.6) k/uL RBC (3.80-5.40) m/uL Hgb (11.4-16.0) gm/dL Hct (34.0-46.0) % MCH (25.0-35.0) pg MCHC (31.0-37.0) g/dL RDW (11.5-15.5) % Neutrophils # (1.3-7.7) k/uL Chloride 96 L (98-107) mmol/L Carbon Dioxide 42 H* (22-30) mmol/L BUN 29 H (7-17) mg/dL Creatinine 1.12 H (0.52-1.04) mg/dL Glucose 119 H (74-99) mg/dL POC Glucose (mg/dL) (75-99) mg/dL Iron (50-170) ug/dL % Saturation (12.00-45.00) Crossmatch Microbiology - Last 24 Hours (Table) 06/17/20 10:09 Blood Culture - Preliminary Blood No Growth after 24 hours 06/17/20 09:55 Blood Culture - Preliminary Blood No Growth after 24 hours
[2020-06-19] MEDS: TIOTROPIUM 2.5 MCG INHALER INHALATION SCH (12:17)
--- NOTE | 2020-06-19 13:02 | PN ---
PROGRESS NOTE PULMONARY/CRITICAL CARE PROGRESS NOTE: DATE OF SERVICE: June 19, 2020 This is a 65-year-old female well known to our service. We saw her in consultation yesterday. She typically comes into the emergency room with complaints of shortness of breath, likely related to underlying COPD exacerbation or CHF, or a combination of both. She again was seen in the emergency room on June [address] Whitfield. The patient apparently came in with increasing shortness of breath of at least a day or so or maybe longer prior to admission. She also admits to weight gain and leg swelling. She also had some orthopnea and paroxysmal nocturnal dyspnea. Her overall pattern in my opinion was consistent with CHF. Currently, she is feeling a bit better. She does request to go back on BiPAP. She does have a BiPAP device at home. PHYSICAL EXAMINATION: VITAL SIGNS: Current vital signs are reviewed. Temperature 98.3, heart rate 77, respiratory rate 20, blood pressure 122/58, mean 79, saturations are 92% to 94% on 10 L high flow. HEENT: Examination is grossly unremarkable. NECK: Supple. Full range of motion. No adenopathy. Neck veins are flat. CARDIOVASCULAR: Examination reveals distant heart sounds. Heart rate in the mid 70s. S1, S2 normal. Heart sounds are distant. A soft systolic murmur is noted. LUNGS: Reveal diffuse coarse rhonchi. There are some bibasilar crackles. Breath sounds are equal, but diminished throughout. ABDOMEN: Obese. Bowel sounds are heard. EXTREMITIES: Reveal some edema. SKIN: Reveals some erythema of the lower extremities. NEUROLOGIC: Examination is nonfocal. LABS: Labs are reviewed. White count 14.8, hemoglobin 8.2, hematocrit 28.8, platelet count is 331,000. Sodium 141, potassium 3.9, chloride 96, CO2 of 42. Anion gap is 3. BUN and creatinine were 29 and 1.12. Microbiology including blood cultures were negative. No recent chest x-ray to report. CURRENT MEDICATIONS: Current medications are reviewed. The patient is currently on Tylenol, Diamox, amlodipine, Lipitor, Symbicort, Prozac, Lasix Amaryl, insulin, Imdur, levothyroxine, Tradjenta, Zestril, Ativan, Robaxin, Lopressor, Singulair, sublingual nitroglycerin, Protonix, potassium, Lyrica, Requip, and Senokot. ASSESSMENT: 1. Shortness of breath, likely a combination of both congestive heart failure and chronic obstructive pulmonary disease exacerbation, although I believe congestive heart failure predominates. 2. History of hyperlipidemia. 3. Diabetes mellitus. 4. Obesity. 5. History of chronic hypoxemic respiratory failure with nocturnal BiPAP use at home. 6. Hypothyroidism. 7. History of congestive heart failure. 8. History of chronic obstructive pulmonary disease from previous heavy tobacco use. 9. History of gastrointestinal bleed. 10.History of neuropathy. 11.Multiple other medical problems and comorbidities. PLAN: The patient with a high-flow nasal O2. She requests to go back on BiPAP. We will accommodate that. Additional recommendations and suggestions forthcoming. Medications are appropriate. We will continue to follow. Prognosis is guarded. MMODL / IJN: [id number] /
[2020-06-19] MEDS: LORazepam 2 MG/ML INJ IV PRN ×2 (13:09→22:07)
[2020-06-19] MEDS: ALBUTEROL HFA INHALER INHALATION SCH ×2 (16:37→19:21)
--- NOTE | 2020-06-19 17:49 | ECHOF ---
Referral Reason:LV function, CHF MEASUREMENTS -------- HEIGHT: 129.5 cm WEIGHT: 99.8 kg BP: RVIDd: 3.1 cm (< 3.3) IVSd: 1.6 cm (0.6 - 1.1) LVIDd: 4.3 cm (3.9 - 5.3) LVPWd: 1.8 cm (0.6 - 1.1) IVSs: 2.4 cm LVIDs: 2.9 cm LVPWs: 1.6 cm LAESV Index (A-L): 40.17 ml/m Ao Diam: 2.6 cm (2.0 - 3.7) AV Cusp: 1.4 cm (1.5 - 2.6) LA Diam: 3.7 cm (2.7 - 3.8) MV EXCURSION: 14.230 mm (> 18.000) MV EF SLOPE: 59 mm/s (70 - 150) EPSS: 0.5 cm MV E Compa: 1.69 m/s MV DecT: 323 ms MV A Compa: 1.34 m/s MV E/A Ratio: 1.26 AV maxP.90 mmHg AV meanP.99 mmHg RAP: 5.00 mmHg RVSP: 14.85 mmHg FINDINGS -------- This was a technically difficult study with suboptimal views. The left ventricular size is normal. There is moderate concentric left ventricular hypertrophy. O verall left ventricular systolic function is normal with, an EF between 55 - 60 %. Increased LAP. G rade 2 Diastolic Dysfuntion. The right ventricle is normal in size. LA is severely dilated >40 ml/m2 The right atrial size is normal. 5.0mg of Lumason was utilized for enhancement of images IAS not well Visualized. Aortic valve is trileaflet and is moderately thickened. There is mild aortic regurgitation. There is moderate aortic stenosis present. Peak/mean gradient across the Aortic Valve is 43.90mmHg / 23. 99mmHg. The mitral valve is normal. The mitral valve leaflets are mildly thickened. Mild mitral annular c alcification present. Mild mitral regurgitation is present. The peak and mean MV gradients are 1 8.21mmHg 5.97mmHg as measured by doppler. Drem-ro-bjxbdkwa mitral stenosis. The tricuspid valve appears structurally normal. Mild tricuspid regurgitation present. Right vent ricular systolic pressure is normal at < 35 mmHg. There is no pulmonic regurgitation present. The aortic root size is normal. IVC Not well visulized. There is no pericardial effusion. CONCLUSIONS -------- 1. The left ventricular size is normal. 2. There is moderate concentric left ventricular hypertrophy. 3. Overall left ventricular systolic function is normal with, an EF between 55 - 60 %. 4. Increased LAP. Grade 2 Diastolic Dysfuntion. 5. LA is severely dilated >40 ml/m2 6. Aortic valve is trileaflet and is moderately thickened. 7. There is mild aortic regurgitation. 8. There is moderate aortic stenosis present. 9. Peak/mean gradient across the Aortic Valve is 43.90mmHg / 23.99mmHg. 10. The mitral valve leaflets are mildly thickened. 11. Mild mitral annular calcification present. 12. Mild mitral regurgitation is present. 13. The peak and mean MV gradients are 18.21mmHg 5.97mmHg as measured by doppler. 14. Lemm-br-lpctwsic mitral stenosis. 15. Mild tricuspid regurgitation present. 16. There is no pericardial effusion. [employer]: Ana Carr, LEONARDO
[2020-06-19] MEDS: MONTELUKAST 10 MG TAB PO SCH (20:12)
[2020-06-20] MEDS: LEVOTHYROXINE 125 MCG TAB PO SCH (06:14)
[2020-06-20] MEDS: INSULIN DETEMIR (LEVEMIR) 100 UNIT/ML SYR SQ SCH ×2 (08:02→22:00)
[2020-06-20] MEDS: INSULIN ASPART (NovoLOG) 100 UNIT/ML VIAL SQ SCH ×7 (08:02→22:00)
[2020-06-20] MEDS: amLODIPine 5 MG TAB PO SCH (08:21)
[2020-06-20] MEDS: acetaZOLAMIDE 250 MG TAB PO SCH (08:21)
[2020-06-20] MEDS: FUROSEMIDE 10 MG/ML 4 ML VIAL IV SCH (08:21)
[2020-06-20] MEDS: lisinopriL 5 MG TAB PO SCH (08:21)
[2020-06-20] MEDS: FLUoxetine HCL 20 MG CAP PO SCH (08:21)
[2020-06-20] MEDS: LINAGLIPTIN 5 MG TABLET PO SCH (08:21)
[2020-06-20] MEDS: ISOSORBIDE MONONITRATE ER 30 MG TAB.ER.24H PO SCH (08:21)
[2020-06-20] MEDS: PANTOPRAZOLE 40 MG TABLET PO SCH ×2 (08:21→21:59)
[2020-06-20] MEDS: METOPROLOL TARTRATE 50 MG TAB PO SCH ×2 (08:21→21:59)
[2020-06-20] MEDS: predniSONE 10 MG TAB PO SCH (08:21)
[2020-06-20] MEDS: POTASSIUM CHLORIDE ER 10 MEQ TAB.ER.PRT PO SCH ×2 (08:21→21:59)
[2020-06-20] MEDS: GLIMEPIRIDE 2 MG TAB PO SCH (08:21)
[2020-06-20] MEDS: ATORVASTATIN 40 MG TAB PO SCH (08:21)
[2020-06-20] MEDS: PREGABALIN 100 MG CAP PO SCH ×2 (08:21→21:59)
[2020-06-20 08:33] LABS: Anisocytosis Slight; Basophils # (A) 0.1 k/uL (0-0.2); Basophils % (A) 1 %; Eosinophils # (A) 0.3 k/uL (0-0.7); Eosinophils % (A) 3 %; HCT 27.1 % (34.0-46.0); HGB 7.9 gm/dL (11.4-16.0); Hypochromasia Marked; Lymphocytes # (A) 1.2 k/uL (1.0-4.8); Lymphocytes % (A) 9 %; MCHC 29.1 g/dL (31.0-37.0); MCV 82.7 fL (80.0-100.0); Mean Platelet Volume 7.5; Microcytosis Slight; Monocytes # (A) 0.9 k/uL (0-1.0); Monocytes % (A) 7 %; Neutrophils # (A) 9.9 k/uL (1.3-7.7); Neutrophils % (A) 77 %; Platelet Count 393 k/uL (150-450); Poikilocytosis Moderate; RBC 3.28 m/uL (3.80-5.40); RDW 18.6 % (11.5-15.5); WBC 12.8 k/uL (3.8-10.6)
[2020-06-20 08:38] LABS: Calcium 8.8 mg/dL (8.4-10.2); Potassium 4.8 mmol/L (3.5-5.1)
[2020-06-20] MEDS: SYMBICORT 160-4.5 MCG INHALER INHALATION SCH ×2 (08:54→19:44)
[2020-06-20] MEDS: ALBUTEROL HFA INHALER INHALATION SCH ×4 (08:54→19:44)
[2020-06-20] MEDS: TIOTROPIUM 2.5 MCG INHALER INHALATION SCH (08:55)
--- NOTE | 2020-06-20 11:20 | P.PN ---
Subjective Progress Note Date: 06/20/20 CHIEF COMPLAINT: CHF HISTORY OF PRESENT ILLNESS: 06/18/2020 This is a 65-year-old female with a past medical history significant for COPD, former nicotine dependence, hyperlipidemia, hypertension, congestive heart failure, and GI bleed. Patient follows in the office with Dr. Yang. We have been asked to see the patient in consultation for congestive heart failure. Patient was recently hospitalized earlier this month for COPD, CHF, and anemia. Patient underwent an EGD with Dr. 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 She underwent repeat EGD during most recent admission revealing no active bleeding, old blood or pathology noted to explain patient's symptoms of melena and anemia. Mild gastritis. She reports still having intermittent black stools at home. Patient presents back to the hospital yesterday secondary to shortness of breath. She states she has been taking all her medications as prescribed. She reports limiting her salt intake. She denies chest pain or pressure. She is currently on 15L eating breakfast. She appears mildly short of breath. Nursing reports patient has been wearing bipap when she is not eating. 06/19/2020 Patient examined this morning at the bedside. Patient appears more comfortable today. She states her shortness of breath has improved. She denies chest pain or pressure. She remains on IV Lasix. Fluid balance over the last 24 hours is -3 L. Blood pressure stable. Heart rate in the 60s. Hemoglobin 8.2. BUN 29. Creatinine 1.12. 06/20/2020 Patient examined this morning the bedside. She states her shortness of breath is improving each day. She denies chest pain or pressure. She remains on IV Lasix. Blood pressure 108/54. Heart rate in the 60s. Creatinine increased from 1.96 from 1.1 yesterday. Patient was also started on MARKUS inhibitor yest erday. Fluid balance is -950 mL over the last 24 hours. Echocardiogram completed reveals ejection fraction 55-60%, mild aortic regurgitation, moderate aortic stenosis, mild mitral regurgitation, [id number] mitral stenosis, and mild tricuspid regurgitation PHYSICAL EXAM: VITAL SIGNS: Reviewed. GENERAL: Well-developed in no acute distress, however she does appear short of breath. HEENT: Head is normocephalic. Pupils are equal, round. Sclerae anicteric. Mucous membranes of the mouth are moist. Neck supple. No JVD or thyromegaly LUNGS: Respirations even and unlabored. Lungs diminished. HEART: Regular rate and rhythm. S1 and S2 heard. Systolic murmur noted. ABDOMEN: Soft. Nondistended. Nontender. EXTREMITIES: Normal range of motion. No clubbing or cyanosis. Peripheral pulses intact. 1+ bilateral lower extremity edema NEUROLOGIC: Awake and alert. Oriented x 3. ASSESSMENT: Shortness of breath Bilateral pneumonia Acute exacerbation of COPD Acute mild exacerbation of chronic diastolic congestive heart failure, EF 55-60% Anemia with reports of continued dark stools at home, status post EGD 05/2020 Valvular heart disease: moderate aortic stenosis and moderate mitral stenosis Moderate pulmonary hypertension Hypertension Hyperlipidemia Diabetes mellitus, type II Former nicotine dependence Acute kidney injury PLAN: Discontinue lisinopril secondary to acute kidney injury Discontinue IV Lasix secondary to acute kidney injury. Repeat kidney function in a.m. If renal function has improved, will resume patient on her home dose of Bumex Hold afternoon dose of potassium supplementation Daily weights Accurate I&O Further recommendations pending patient course Nurse practitioner note has been reviewed by physician. Signing provider agrees with the documented findings, assessment, and plan of care. Objective - Vital Signs Vital signs: Vital Signs Temp 98 F 06/20/20 08:00 Pulse 69 06/20/20 08:00 Resp 20 06/20/20 08:00 BP 108/54 06/20/20 08:00 Pulse Ox 100 06/20/20 08:55 Intake & Output 06/19/20 06/20/20 06/20/20 18:59 06:59 18:59 Intake Total 330 Output Total 1000 280 Balance -670 -280 Weight 107 kg Intake: Oral 330 Output: Urine 1000 280 Other: Voiding Method Indwelling Catheter Indwelling Catheter # Voids 1 1 - Labs CBC & Chem 7: 06/20/20 07:41 06/20/20 07:41 Labs: Abnormal Lab Results - Last 24 Hours (Table) 06/20/20 06/20/20 Range/Units 07:41 07:41 WBC 12.8 H (3.8-10.6) k/uL RBC 3.28 L (3.80-5.40) m/uL Hgb 7.9 L (11.4-16.0) gm/dL Hct 27.1 L (34.0-46.0) % MCH 24.0 L (25.0-35.0) pg MCHC 29.1 L (31.0-37.0) g/dL RDW 18.6 H (11.5-15.5) % Neutrophils # 9.9 H (1.3-7.7) k/uL Chloride 94 L (98-107) mmol/L Carbon Dioxide 40 H (22-30) mmol/L BUN 44 H (7-17) mg/dL Creatinine 1.96 H (0.52-1.04) mg/dL Microbiology - Last 24 Hours (Table) 06/17/20 10:09 Blood Culture - Preliminary Blood No Growth after 48 hours 06/17/20 09:55 Blood Culture - Preliminary Blood No Growth after 48 hours
--- NOTE | 2020-06-20 11:47 | PN ---
PROGRESS NOTE DATE OF DICTATION: June 20, 2020 The patient is a 65-year-old white female admitted to the hospital with exacerbation of COPD and CHF and remains on BiPAP, doing better. She is up trying to eat breakfast. She states that she had one black tarry stool last night. She denies any abdominal pain. No nausea, no vomiting. PHYSICAL EXAMINATION: Appears comfortable in no apparent distress. VITAL SIGNS: Stable. Blood pressure is 108/54, pulse is 69, temperature 98.7. HEENT examination unremarkable. Conjunctivae pink. Sclerae anicteric. Oral cavity no lesions. Neck no JVD or lymph node enlargement. CHEST: Decreased breath sounds bilaterally. HEART: Regular rate and rhythm. ABDOMEN: Soft, it was obese. Bowel sounds are positive. No organomegaly. NEUROLOGIC: Alert and oriented x3. No focal deficits. LABS: From today WBC 12.8, hemoglobin 7.9, platelets 393, status post one unit of PRBC transfusion since admission. BUN is 44 and creatinine 1.96. IMPRESSION: 1. Exacerbation of chronic obstructive pulmonary disease and congestive heart failure. 2. Recurrent anemia with intermittent melena. Patient with multiple upper endoscopy/enteroscopy and small bowel capsule endoscopies as mentioned earlier with small bowel angioectasia that were cauterized. Last one was done on June 03, [address] Bess. Clinically no evidence of active bleeding. Hemoglobin remains stable at 7.9 g/dL. 3. Longstanding history of diabetes mellitus. 4. Morbid obesity. 5. History of hypertension and hyperlipidemia. RECOMMENDATIONS: 1. Continue to monitor CBC on a daily basis. 2. Transfuse if the hemoglobin is less than 7. 3. Continue symptomatic and supportive care. 4. If she has persistent drop in hemoglobin, she may be a candidate to be transferred to a tertiary institute for further management and consider double balloon enteroscopy to evaluate this further. Thank you for this consultation. MMODL / IJN: [id number] /
--- NOTE | 2020-06-20 13:32 | PN ---
PROGRESS NOTE PULMONARY/CRITICAL CARE PROGRESS NOTE DATE OF SERVICE: June 20, 2020. HISTORY: A 65-year-old female well known to our service. She is typically admitted with shortness of breath, secondary to both congestive heart failure and COPD. Currently, she is feeling better. She is using her BiPAP at nighttime. The patient is sitting up in the chair today. She is on nasal O2. She states that she is feeling better. She was admitted with a diagnosis of primarily CHF. At home she had worsening shortness of breath, weight gain, lower extremity edema, paroxysmal nocturnal dyspnea, and orthopnea. She does use BiPAP at home. PHYSICAL EXAMINATION: VITAL SIGNS: Current vital signs include a temperature of 98.8, heart rate 69, respiratory rate 20, blood pressure 108/54, mean 72, saturations are 100% on 6 L nasal O2. Appears in no acute distress. Sitting up in the chair. No respiratory distress. No audible wheezing, use of accessory muscles or conversational dyspnea. HEENT: Examination is grossly unremarkable. Nasal O2 noted. NECK: Supple. Full range of motion. No adenopathy. Neck veins are flat. CARDIOVASCULAR: Examination reveals regular rhythm and rate. Heart rate in the mid 80s. S1, S2 normal. Heart sounds distant. A systolic murmur is noted. LUNGS: Reveal diffuse bilateral crackles. A few scattered rhonchi noted. No wheezes. Breath sounds are equal bilaterally but diminished throughout. Breath sounds are improved. ABDOMEN: Soft, bowel sounds are heard. ABDOMEN: Obese. EXTREMITIES: Reveal some edema. There is also some wrinkling of the lower extremities, edema is improved. No cyanosis or clubbing. SKIN: Reveals some lower extremity erythema and chronic venous stasis changes. NEUROLOGIC: Examination is nonfocal. LABS: Reviewed. White count 12.8, hemoglobin 7.9, hematocrit 27.1, platelet count 393,000. Sodium 139, potassium 4.8, chloride 94, CO2 of 40, anion gap is 5. BUN and creatinine were 44 and 1.96. CURRENT MEDICATIONS: Reviewed. The patient is on Tylenol 3, Diamox, albuterol inhaler, amlodipine, Lipitor, Symbicort, Prozac, Amaryl, NovoLog insulin, Imdur, levothyroxine, Tradjenta, Robaxin, Lopressor, Singulair, nitroglycerin tablets p.r.n., Protonix, potassium chloride, prednisone Lyrica, Requip, Senokot, and Spiriva. ASSESSMENT: 1. Shortness of breath, a combination of both congestive heart failure and chronic obstructive pulmonary disease exacerbation, although CHF likely predominates on this admission. 2. History of hyperlipidemia. 3. Obesity. 4. Diabetes mellitus. 5. History of chronic hypoxemic respiratory failure with nocturnal BiPAP use at home. 6. Hypothyroidism. 7. History of congestive heart failure, chronic. 8. History of chronic obstructive pulmonary disease from previous heavy tobacco use. 9. History of GI bleed. 10.Neuropathy. 11.Multiple other medical problems and comorbidities. PLAN: Currently, the patient is doing better. She is on O2 at 6 L. She is using BiPAP at nighttime. She is not aware of settings at home on BiPAP. Currently, she has an IPAP of 10, EPAP of 5. The patient is feeling better. Her lower extremity edema is improved. We will continue to follow. MMMARGARITAL / IJN: [id number] /
[2020-06-20 15:04] LABS: Anisocytosis Slight; HCT 28.5 % (34.0-46.0); Hypochromasia Marked; MCV 85.7 fL (80.0-100.0); Mean Platelet Volume 8.4; Platelet Count 470 k/uL (150-450); Poikilocytosis Moderate; RBC 3.32 m/uL (3.80-5.40); RDW 18.4 % (11.5-15.5); WBC 16.5 k/uL (3.8-10.6)
[2020-06-20] MEDS: MONTELUKAST 10 MG TAB PO SCH (21:59)
[2020-06-21] MEDS: LEVOTHYROXINE 125 MCG TAB PO SCH (06:18)
[2020-06-21] MEDS: acetaZOLAMIDE 250 MG TAB PO SCH (08:39)
[2020-06-21] MEDS: FLUoxetine HCL 20 MG CAP PO SCH (08:39)
[2020-06-21] MEDS: POTASSIUM CHLORIDE ER 10 MEQ TAB.ER.PRT PO SCH (08:39)
[2020-06-21] MEDS: LINAGLIPTIN 5 MG TABLET PO SCH (08:39)
[2020-06-21] MEDS: ATORVASTATIN 40 MG TAB PO SCH (08:39)
[2020-06-21] MEDS: METOPROLOL TARTRATE 50 MG TAB PO SCH ×2 (08:39→20:53)
[2020-06-21] MEDS: PREGABALIN 100 MG CAP PO SCH ×2 (08:39→20:53)
[2020-06-21] MEDS: PANTOPRAZOLE 40 MG TABLET PO SCH ×2 (08:39→20:53)
[2020-06-21] MEDS: ISOSORBIDE MONONITRATE ER 30 MG TAB.ER.24H PO SCH (08:39)
[2020-06-21] MEDS: amLODIPine 5 MG TAB PO SCH (08:40)
[2020-06-21] MEDS: GLIMEPIRIDE 2 MG TAB PO SCH (08:40)
[2020-06-21] MEDS: predniSONE 10 MG TAB PO SCH (08:40)
[2020-06-21 08:42] LABS: Anisocytosis Slight; HCT 28.1 % (34.0-46.0); Hypochromasia Marked; MCH 24.2 pg (25.0-35.0); MCHC 28.7 g/dL (31.0-37.0); MCV 84.5 fL (80.0-100.0); Mean Platelet Volume 8.4; Platelet Count 538 k/uL (150-450); Poikilocytosis Moderate; RBC 3.32 m/uL (3.80-5.40); RDW 18.5 % (11.5-15.5); WBC 13.5 k/uL (3.8-10.6)
[2020-06-21] MEDS: INSULIN ASPART (NovoLOG) 100 UNIT/ML VIAL SQ SCH ×7 (08:44→20:51)
[2020-06-21] MEDS: INSULIN DETEMIR (LEVEMIR) 100 UNIT/ML SYR SQ SCH ×2 (08:44→20:51)
[2020-06-21] MEDS: TIOTROPIUM 2.5 MCG INHALER INHALATION SCH (08:50)
[2020-06-21 08:57] LABS: Albumin 3.5 g/dL (3.5-5.0); Calcium 8.9 mg/dL (8.4-10.2); Total Bilirubin 0.4 mg/dL (0.2-1.3); Total Protein 6.6 g/dL (6.3-8.2)
[2020-06-21] MEDS: ALBUTEROL HFA INHALER INHALATION SCH ×4 (08:57→19:15)
[2020-06-21] MEDS: SYMBICORT 160-4.5 MCG INHALER INHALATION SCH ×2 (08:57→19:17)
--- NOTE | 2020-06-21 09:41 | PN ---
PROGRESS NOTE DATE OF SERVICE: June 21, 2020 The patient is a 65-year-old white female with history of CHF, COPD, admitted with exacerbation and presently remains on BiPAP and feels better. She denies any bowel movements for the last 2 days. Reports no abdominal pain. No nausea, no vomiting. She complains of fatigue and weakness and continues to be short of breath. PHYSICAL EXAMINATION: She appears comfortable. No apparent distress. VITAL SIGNS: Stable. Blood pressure is 108/56, pulse rate 89, temperature 98. HEENT examination unremarkable. Conjunctivae pink. Sclerae anicteric. Oral cavity no lesions. Neck: No JVD or lymph node enlargement. CHEST: Decreased breath sounds. HEART: Regular rate and rhythm. ABDOMEN: Soft. Bowel sounds are positive. No organomegaly. Extremities: No pedal edema. Neuro: She is alert and oriented x3. No focal deficits. LABS: From today hemoglobin 8.0, WBC 11.3, platelets normal. IMPRESSION: 1. Anemia with stable hemoglobin. No further episodes of bleeding. She is status post one unit of PRBC transfusion 3 days ago. 2. Exacerbation of congestive heart failure/chronic obstructive pulmonary disease. 3. History of hypertension diabetes mellitus. 4. History of hypothyroidism. RECOMMENDATIONS: 1. Continue symptomatic and supportive care. 2. Monitor CBC on a daily basis. 3. Continue Protonix 40 mg daily. 4. We will follow with you closely. Thank you for this consultation. MED / BETTIE: [id number] /
--- NOTE | 2020-06-21 12:19 | PN ---
PROGRESS NOTE PULMONARY/CRITICAL CARE PROGRESS NOTE: DATE OF SERVICE: June 21, 2020. INTERVAL HISTORY: This is a 65-year-old female well known to our service. The patient has had multiple admissions to the hospital with shortness of breath, secondary to hypoxemic respiratory failure, usually secondary to both CHF and/or COPD. She is feeling better. She is using BiPAP at nighttime. She uses BiPAP at home. She is currently on nasal O2. She is sitting up in a chair. She was admitted primarily with CHF in my opinion. Currently, likely a component of COPD as well. Her major complaints on admission were that of progressive shortness of breath, weight gain, lower extremity edema, orthopnea, and paroxysmal nocturnal dyspnea. PHYSICAL EXAMINATION: VITAL SIGNS: Current vital signs are reviewed. Temperature 97.1, heart rate 68, respiratory rate 20,blood pressure 131/63, mean 85. Her saturations are 98% on 6 L high flow. She has come down in that regard. HEENT: Examination is grossly unremarkable. Nasal O2 in place. NECK: Supple. Full range of motion. No adenopathy. Neck veins are flat. CARDIOVASCULAR: Examination reveals regular rhythm and rate. Heart sounds are distant. S1, S2 normal. No S3, S4. A systolic murmur is noted. Heart rate in the mid 70s. LUNGS: Reveal diffuse coarse rhonchi and crackles. Breath sounds equal. No wheezes. ABDOMEN: Soft. Bowel sounds are noted. EXTREMITIES: Intact. There is some edema. It is improved. No cyanosis or clubbing. SKIN: Reveals some mild erythema of the lower extremities. NEUROLOGIC: Examination is brief but nonfocal. LABS: Reviewed. White count 13.5, hemoglobin 8, hematocrit 28.1, platelet count 538,000. Sodium 140, potassium 5, chloride 94, CO2 43, anion gap is 3, BUN and creatinine were 63 and 1.53. The rest of the labs look okay. Microbiology is currently all negative. IMAGING: No recent chest x-ray. CURRENT MEDICATIONS: Reviewed. The patient is on Tylenol No.3, Diamox, albuterol inhaler, amlodipine, Lipitor, Symbicort, Prozac, Amaryl, insulin, Imdur, levothyroxine, Tradjenta, Robaxin, Lopressor, Singulair, nitroglycerin tablets, Protonix, potassium chloride, prednisone, Lyrica, Requip, Senokot, and Spiriva. ASSESSMENT: 1. Shortness of breath, a combination of both congestive heart failure and chronic obstructive pulmonary disease exacerbation, although congestive heart failure likely predominates on this admission. 2. History of hyperlipidemia. 3. Morbid obesity. 4. Diabetes mellitus. 5. History of chronic hypoxemic respiratory failure with nocturnal BiPAP use at home. 6. Rule out sleep apnea syndrome. 7. Possible Pickwickian syndrome. 8. Hypothyroidism. 9. History of congestive heart failure, chronic. 10.History of chronic obstructive pulmonary disease from previous heavy tobacco use. 11.History of GI bleed. 12.History of neuropathy. 13.Multiple other medical problems and comorbidities. PLAN: The patient has been weaned down to 6 L. She is using BiPAP at nighttime with settings of IPAP 10, EPAP of 5. She is feeling better. Her lower extremity edema is improved. The patient clinically feels better. She is much less short of breath. Additional recommendations and suggestions are forthcoming. MMODL / IJN: [id number] /
--- NOTE | 2020-06-21 12:22 | P.PN ---
Subjective Progress Note Date: 06/21/20 CHIEF COMPLAINT: CHF HISTORY OF PRESENT ILLNESS: 06/18/2020 This is a 65-year-old female with a past medical history significant for COPD, former nicotine dependence, hyperlipidemia, hypertension, congestive heart failure, and GI bleed. Patient follows in the office with Dr. Yang. We have been asked to see the patient in consultation for congestive heart failure. Patient was recently hospitalized earlier this month for COPD, CHF, and anemia. Patient underwent an EGD with Dr. 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 She underwent repeat EGD during most recent admission revealing no active bleeding, old blood or pathology noted to explain patient's symptoms of melena and anemia. Mild gastritis. She reports still having intermittent black stools at home. Patient presents back to the hospital yesterday secondary to shortness of breath. She states she has been taking all her medications as prescribed. She reports limiting her salt intake. She denies chest pain or pressure. She is currently on 15L eating breakfast. She appears mildly short of breath. Nursing reports patient has been wearing bipap when she is not eating. 06/19/2020 Patient examined this morning at the bedside. Patient appears more comfortable today. She states her shortness of breath has improved. She denies chest pain or pressure. She remains on IV Lasix. Fluid balance over the last 24 hours is -3 L. Blood pressure stable. Heart rate in the 60s. Hemoglobin 8.2. BUN 29. Creatinine 1.12. 06/20/2020 Patient examined this morning the bedside. She states her shortness of breath is improving each day. She denies chest pain or pressure. She remains on IV Lasix. Blood pressure 108/54. Heart rate in the 60s. Creatinine increased from 1.96 from 1.1 yesterday. Patient was also started on MARKUS inhibitor yest erd. Fluid balance is -950 mL over the last 24 hours. Echocardiogram completed reveals ejection fraction 55-60%, mild aortic regurgitation, moderate aortic stenosis, mild mitral regurgitation, [id number] mitral stenosis, and mild tricuspid regurgitation 06/21/2020 Patient examined this morning. She is sitting up in the chair. She states her shortness of breath continues to improve each day. She denies chest pain or pressure. Patient's creatinine 1.53 today, improved from 1.96. Her lisinopril and Lasix were placed on hold yesterday. Blood pressure 119/58. PHYSICAL EXAM: VITAL SIGNS: Reviewed. GENERAL: Well-developed in no acute distress, however she does appear short of breath. HEENT: Head is normocephalic. Pupils are equal, round. Sclerae anicteric. Mucous membranes of the mouth are moist. Neck supple. No JVD or thyromegaly LUNGS: Respirations even and unlabored. Lungs diminished with a few crackles noted at the bases.. HEART: Regular rate and rhythm. S1 and S2 heard. Systolic murmur noted. ABDOMEN: Soft. Nondistended. Nontender. EXTREMITIES: Normal range of motion. No clubbing or cyanosis. Peripheral pulses intact. 1+ bilateral lower extremity edema NEUROLOGIC: Awake and alert. Oriented x 3. ASSESSMENT: Shortness of breath Bilateral pneumonia Acute exacerbation of COPD Acute mild exacerbation of chronic diastolic congestive heart failure, EF 55-60% Anemia with reports of continued dark stools at home, status post EGD 05/2020 Valvular heart disease: moderate aortic stenosis and moderate mitral stenosis Moderate pulmonary hypertension Hypertension Hyperlipidemia Diabetes mellitus, type II Former nicotine dependence Acute kidney injury PLAN: Continue to hold lisinopril secondary to kidney function Continue to hold IV Lasix for today. If patient's kidney function returns to her baseline tomorrow, will resume her home dose of Bumex Discontinue potassium supplementation while diuretics are on hold Daily weights Accurate I&O Further recommendations pending patient course Nurse practitioner note has been reviewed by physician. Signing provider agrees with the documented findings, assessment, and plan of care. Objective - Vital Signs Vital signs: Vital Signs Temp 96.7 F L 06/21/20 11:55 Pulse 69 06/21/20 11:55 Resp 20 06/21/20 11:55 BP 119/58 06/21/20 11:55 Pulse Ox 98 06/21/20 11:55 Intake & Output 06/20/20 06/21/20 06/21/20 18:59 06:59 18:59 Intake Total 240 Output Total 1325 Balance -1085 Weight 107 kg Intake: Oral 240 Output: Urine 1325 Other: Voiding Method Indwelling Catheter - Labs CBC & Chem 7: 06/21/20 07:41 06/21/20 07:41 Labs: Abnormal Lab Results - Last 24 Hours (Table) 06/20/20 06/21/20 06/21/20 Range/Units 14:54 07:41 07:41 WBC 16.5 H 13.5 H (3.8-10.6) k/uL RBC 3.32 L 3.32 L (3.80-5.40) m/uL Hgb 8.0 L 8.0 L (11.4-16.0) gm/dL Hct 28.5 L 28.1 L (34.0-46.0) % MCH 24.0 L 24.2 L (25.0-35.0) pg MCHC 28.0 L 28.7 L (31.0-37.0) g/dL RDW 18.4 H 18.5 H (11.5-15.5) % Plt Count 470 H 538 H (150-450) k/uL Chloride 94 L (98-107) mmol/L Carbon Dioxide 43 H* (22-30) mmol/L BUN 63 H (7-17) mg/dL Creatinine 1.53 H (0.52-1.04) mg/dL Glucose 134 H (74-99) mg/dL Alkaline Phosphatase 130 H (38-126) U/L Microbiology - Last 24 Hours (Table) 06/17/20 09:55 Blood Culture - Preliminary Blood No Growth after 72 hours 06/17/20 10:09 Blood Culture - Preliminary Blood No Growth after 72 hours
--- NOTE | 2020-06-21 12:24 | XR ---
EXAMINATION TYPE: XR chest 2V DATE OF EXAM: 06/21/2020 COMPARISON: 06/17/2020 HISTORY: 65-year-old female bilateral pneumonia TECHNIQUE: PA and lateral views FINDINGS: Heart mildly enlarged. Diffuse interstitial opacity and vascular prominence persists. Trace right eff usion remains. IMPRESSION: Cardiomegaly and diffuse interstitial changes persist. Trace right effusion persists. Correlate for C HF with pulmonary vascular congestion versus atypical pneumonias.
--- NOTE | 2020-06-21 12:37 | P.PN ---
Subjective Progress Note Date: 06/20/20 Principal diagnosis: Acute respiratory failure, COPD exacerbation, aspiration pneumonia, CHF exacerbation, anemia GI bleed 65-year-old female one of my office patient with multiple medical problem with recurrent visit to [facility] department with GI bleed multiple endoscopy with ca uterization done in the last few weeks. Patient was in the hospital over 3 weeks ago for worsening dyspnea and shortness of breath consistent with GI bleed and severe anemia cause worsening respiratory failure the time along with bilateral pneumonia and fluid overload was treated ended up having blood transfusion ended up going to the endoscopy unit with EGD done with Dr. Ivy with more than 2 area cauterized at the time and ended up having capsule endoscopy which analysis did not show any major abnormality at the time. Patient was seen in the office for follow-up hemoglobin was still running in the mid 8-90 g at the time last week was seen and done well. Patient developed to have worsening dyspnea and shortness of breath along with mid abdominal pain and discomfort with sharp discomfort under the xiphoid. Patient was in acute respiratory distress: 911 and ended up being transferred to [facility] at [facility] where was seen and evaluated her hemoglobin was slightly bit lower at the time. Patient chest x-ray showed significant infiltrate with advance COPD and fluid overload the patient was started on IV diuretics mixup with graft treatment will be seen cardiology and pulmonary Hemoccult was order and patient be seen gastroenterology for possible need for another endoscopy if needed. Almost the possibility for intervention or surgical intervention for harsher section can be the best next step which patient is not a candidate for this point. [place] no exposure to Covid 19 recently and testing is negative. 06/18: Patient was evaluated this morning, noted to be sitting up in bed. She has complaints of shortness of breath, BiPAP in place, she is noted to be tachypenic, her oxygen saturation is 99%, her blood pressure is stable 128/58, heart rate of 70, respiratory rate 28. Hemoglobin did drop from yesterday to 7.1, 1 unit of packed red blood cells were ordered with a dose of IV Lasix. Patient continues to be diuresed with IV Lasix, weight is down 8 pounds since admission. Willl continue to monitor CBC closely. Cardiology, GI, and pulmonary on consult. 06/19: Patient evaluated this morning, noted to be resting in bed comfortably, in no acute distress. She is able to wean down off BiPAP and is currently on 10 L of high flow oxygen and is saturating 92%. Her vital signs remain stable she is afebrile 98.3, heart rate 77, respiratory rate of 20, blood pressure 122/58. Patient reports she is feeling slightly better and is not short of breath. Hemoglobin is stable was 8.2 after she received 1 unit of packed red blood cells yesterday. Her CO2 remains high at 42, blood cultures show no growth to date. Per GI notes no plans for upper endoscopy, patient may needs to be transferred to tertiary center for possible double-balloon enteroscopy, if GI decides on this, agreeable to the plan. We'll continue to monitor CBC closely and tra nsfuse for hemoglobin less than 7. 06/20: Patient is doing well no active bleed at this point patient is not going for an EGD with Dr. Ivy the plan was if she continued to bleed she need to go for possible double-balloon endoscopy at one of the tertiary center like [facility]. Continue current management, patient still require BiPAP through the night, O2 slightly bit higher than her normal demand. Patient does not require any blood point. Objective - Vital Signs Vital signs: Vital Signs Temp 97.7 F 06/20/20 12:00 Pulse 71 06/20/20 14:00 Resp 18 06/20/20 14:00 BP 119/54 06/20/20 12:00 Pulse Ox 96 06/20/20 12:00 Intake & Output 06/19/20 06/20/20 06/20/20 18:59 06:59 18:59 Intake Total 330 Output Total 1000 280 Balance -670 -280 Weight 107 kg Intake: Oral 330 Output: Urine 1000 280 Other: Voiding Method Indwelling Catheter Indwelling Catheter # Voids 1 1 - Exam Review of systems: CONSTITUTIONAL: Well-developed mild respiratory distress with mild obesity EYES: No icterus sclerae, no conjunctivitis. EARS, NOSE, MOUTH, THROAT, and FACE: No sore throat, lymphadenopathy, carotid bruits or deformity. RESPIRATORY: Positive dyspnea and shortness of breath CARDIOVASCULAR: Positive PND at 70 palpitation GASTROINTESTINAL: No Abd pain, Nausea or vomiting, no Diarrhea or constipation, No GI Bleed, no distention or masses. Recurrent GI bleed GENITOURINARY: Negative for Hematuria or UTI, no kidney stones. INTEGUMENT/BREAST: Negative for any muscular injury with mild osteoarthritis.. HEMATOLOGIC/LYMPHATIC: Negative for bleed or purpura. MUSCULOSKELTAL: Negative for Myalgia or arthralgia. NEURLOGICAL: No LOC, Sz or syncope, blurred vision dizziness or abnormality.. BEHAVIORAL/PSYCH: Negative. ENDOCRINE: Negative. - Exam General Appearance: Alert, cooperative, continues to be in mild respiratory distress Neck HEENT: Supple, no lymphadenopathy, no thyroid enlargement, no carotid bruits. Lungs: Decreased breath Regulo acute final rhonchi positive crackles positive mild this but espresso wheezes was seen in the right side left side. Chest Wall: Decrease expansion with deep inspiration no tenderness and no defor mity was found on exam, no costochondral pain or discomfort. Heart: Regular rate and rhythm, S1, S2 with systolic murmur Back: Symmetric, no curvature, ROM normal, no CVA tenderness. Abdomen: Distended significant discomfort in the epigastric area and mid abdominal region area and rebound or rigidity no masses. Extremities: Extremities normal, atraumatic, significant edema Pulses: 2+ and symmetric. Skin: Skin color, texture, tugor normal, no rashes or lesions. Neurologic: Alert oriented x3 cranial nerves II through XII intact, no motor deficit, no abnormal balance or gait. - Labs CBC & Chem 7: 06/21/20 07:41 06/21/20 07:41 Labs: Abnormal Lab Results - Last 24 Hours (Table) 06/20/20 06/20/20 06/20/20 Range/Units 07:41 07:41 14:54 WBC 12.8 H 16.5 H (3.8-10.6) k/uL RBC 3.28 L 3.32 L (3.80-5.40) m/uL Hgb 7.9 L 8.0 L (11.4-16.0) gm/dL Hct 27.1 L 28.5 L (34.0-46.0) % MCH 24.0 L 24.0 L (25.0-35.0) pg MCHC 29.1 L 28.0 L (31.0-37.0) g/dL RDW 18.6 H 18.4 H (11.5-15.5) % Plt Count 470 H (150-450) k/uL Neutrophils # 9.9 H (1.3-7.7) k/uL Chloride 94 L (98-107) mmol/L Carbon Dioxide 40 H (22-30) mmol/L BUN 44 H (7-17) mg/dL Creatinine 1.96 H (0.52-1.04) mg/dL Microbiology - Last 24 Hours (Table) 06/17/20 09:55 Blood Culture - Preliminary Blood No Growth after 72 hours 06/17/20 10:09 Blood Culture - Preliminary Blood No Growth after 72 hours Assessment and Plan Assessment: 1 acute respiratory failure: Combination of COPD exacerbation, right-sided pneumonia and most likely aspiration, CHF exacerbation along with arrhythmia and GI bleed. Slightly bit better today. 2 COPD exacerbation: Patient be on Solu-Medrol along with Pulmicort and DuoNeb continue acetazolamide along with Singulair pulmonary consultation was requested. Will decrease Solu-Medrol dose. 3 aspiration pneumonia with worsening bilateral pneumonia patient be on gram- negative coverage at this point also waiting for culture recommendation from p ulmonary recommendation, Covid test came back negative for this point. Patient was started on azithromycin and Rocephin for now. 4 CHF mostly diastolic dysfunction with better ejection fraction patient will be continue on IV Lasix 40 mg every 8 hours continue to watch intake and output daily weight. 5 arrhythmia: With nonsustained A. fib patient cannot be on anticoagulation still on beta ira watch pulse rate and titrate medication to keep the pulse below 90 beats per minutes. 6 type 2 diabetes more resistant with insulin, continue patient on oral agent along with Levemir and NovoLog continue Accu-Chek with sliding scales coverage titrate medication gradually. 7 valvular heart disease: With known to have severe mitral regurgitation along with significant pulmonary hypertension on medical management this point patient is not surgical candidate. 8 gastrointestinal bleed: With the current bleed from an area of the due to numb and the jejunal area patient seen gastroenterology and upper endoscopy with longer scope has been done repeatedly with cauterization patient might require partial resection as an point for recurrent bleed. 9 acute kidney injury with chronic kidney disease stage III: Continue to watch BUN/creatinine regular basis. 10 hypertension: Continue patient on amlodipine 5 mg a day, spironolactone along with metoprolol 100 mg 3 times a day. 11 hyperlipidemia: Still on atorvastatin 40 mg daily. 12 hypothyroidism: Continue patient on levothyroxine 125 g daily. 13 anemia: Post blood transfusion, recurrent GI bleed with no bleed at this point continue to watch hemoglobin next 2 days if further drop she need to be transferred to [facility] if not with try to make an arrangement for patient to go to [facility] for double balloon endoscopy. Patient still debilitated not been able template and walk require some PTT this point. CODE STATUS: Full code.
--- NOTE | 2020-06-21 12:39 | P.PN ---
Subjective Progress Note Date: 06/21/20 Principal diagnosis: Acute respiratory failure, COPD exacerbation, aspiration pneumonia, CHF exacerbation, anemia GI bleed 65-year-old female one of my office patient with multiple medical problem with recurrent visit to [facility] department with GI bleed multiple endoscopy with ca uterization done in the last few weeks. Patient was in the hospital over 3 weeks ago for worsening dyspnea and shortness of breath consistent with GI bleed and severe anemia cause worsening respiratory failure the time along with bilateral pneumonia and fluid overload was treated ended up having blood transfusion ended up going to the endoscopy unit with EGD done with Dr. Ivy with more than 2 area cauterized at the time and ended up having capsule endoscopy which analysis did not show any major abnormality at the time. Patient was seen in the office for follow-up hemoglobin was still running in the mid 8-90 g at the time last week was seen and done well. Patient developed to have worsening dyspnea and shortness of breath along with mid abdominal pain and discomfort with sharp discomfort under the xiphoid. Patient was in acute respiratory distress: 911 and ended up being transferred to [facility] department at [facility] where was seen and evaluated her hemoglobin was slightly bit lower at the time. Patient chest x-ray showed significant infiltrate with advance COPD and fluid overload the patient was started on IV diuretics mixup with graft treatment will be seen cardiology and pulmonary Hemoccult was order and patient be seen gastroenterology for possible need for another endoscopy if needed. Almost the possibility for intervention or surgical intervention for harsher section can be the best next step which patient is not a candidate for this point. Kenvir no exposure to Covid 19 recently and testing is negative. 06/18: Patient was evaluated this morning, noted to be sitting up in bed. She has complaints of shortness of breath, BiPAP in place, she is noted to be tachypenic, her oxygen saturation is 99%, her blood pressure is stable 128/58, heart rate of 70, respiratory rate 28. Hemoglobin did drop from yesterday to 7.1, 1 unit of packed red blood cells were ordered with a dose of IV Lasix. Patient continues to be diuresed with IV Lasix, weight is down 8 pounds since admission. Willl continue to monitor CBC closely. Cardiology, GI, and pulmonary on consult. 06/19: Patient evaluated this morning, noted to be resting in bed comfortably, in no acute distress. She is able to wean down off BiPAP and is currently on 10 L of high flow oxygen and is saturating 92%. Her vital signs remain stable she is afebrile 98.3, heart rate 77, respiratory rate of 20, blood pressure 122/58. Patient reports she is feeling slightly better and is not short of breath. Hemoglobin is stable was 8.2 after she received 1 unit of packed red blood cells yesterday. Her CO2 remains high at 42, blood cultures show no growth to date. Per GI notes no plans for upper endoscopy, patient may needs to be transferred to tertiary center for possible double-balloon enteroscopy, if GI decides on this, agreeable to the plan. We'll continue to monitor CBC closely and tra nsfuse for hemoglobin less than 7. 06/20: Patient is doing well no active bleed at this point patient is not going for an EGD with Dr. Ivy the plan was if she continued to bleed she need to go for possible double-balloon endoscopy at one of the tertiary center like [facility]. Continue current management, patient still require BiPAP through the night, O2 slightly bit higher than her normal demand. Patient does not require any blood point. 06/21: No need for blood transfusion so far patient will continue PTOT and will require at least subacute rehab if further drop in hemoglobin need to be moved to one of the large center if not would keep patient center for physical therapy and rehab Center and patient to go for an outpatient consultation for double endoscopy down at [facility]. Objective - Vital Signs Vital signs: Vital Signs Temp 96.7 F L 06/21/20 11:55 Pulse 69 06/21/20 11:55 Resp 20 06/21/20 11:55 BP 119/58 06/21/20 11:55 Pulse Ox 98 06/21/20 11:55 Intake & Output 06/20/20 06/21/20 06/21/20 18:59 06:59 18:59 Intake Total 240 Output Total 1325 Balance -1085 Weight 107 kg Intake: Oral 240 Output: Urine 1325 Other: Voiding Method Indwelling Catheter - Exam Review of systems: CONSTITUTIONAL: Well-developed mild respiratory distress with mild obesity EYES: No icterus sclerae, no conjunctivitis. EARS, NOSE, MOUTH, THROAT, and FACE: No sore throat, lymphadenopathy, carotid bruits or deformity. RESPIRATORY: Positive dyspnea and shortness of breath CARDIOVASCULAR: Positive PND at 70 palpitation GASTROINTESTINAL: No Abd pain, Nausea or vomiting, no Diarrhea or constipation, No GI Bleed, no distention or masses. Recurrent GI bleed GENITOURINARY: Negative for Hematuria or UTI, no kidney stones. INTEGUMENT/BREAST: Negative for any muscular injury with mild osteoarthritis.. HEMATOLOGIC/LYMPHATIC: Negative for bleed or purpura. MUSCULOSKELTAL: Negative for Myalgia or arthralgia. NEURLOGICAL: No LOC, Sz or syncope, blurred vision dizziness or abnormality.. BEHAVIORAL/PSYCH: Negative. ENDOCRINE: Negative. - Exam General Appearance: Alert, cooperative, continues to be in mild respiratory distress Neck HEENT: Supple, no lymphadenopathy, no thyroid enlargement, no carotid bruits. Lungs: Decreased breath Regulo acute final rhonchi positive crackles positive mild this but espresso wheezes was seen in the right side left side. Chest Wall: Decrease expansion with deep inspiration no tenderness and no deformity was found on exam, no costochondral pain or discomfort. Heart: Regular rate and rhythm, S1, S2 with systolic murmur Back: Symmetric, no curvature, ROM normal, no CVA tenderness. Abdomen: Distended significant discomfort in the epigastric area and mid abdominal region area and rebound or rigidity no masses. Extremities: Extremities normal, atraumatic, significant edema Pulses: 2+ and symmetric. Skin: Skin color, texture, tugor normal, no rashes or lesions. Neurologic: Alert oriented x3 cranial nerves II through XII intact, no motor deficit, no abnormal balance or gait. - Labs CBC & Chem 7: 06/21/20 07:41 06/21/20 07:41 Labs: Abnormal Lab Results - Last 24 Hours (Table) 06/20/20 06/21/20 06/21/20 Range/Units 14:54 07:41 07:41 WBC 16.5 H 13.5 H (3.8-10.6) k/uL RBC 3.32 L 3.32 L (3.80-5.40) m/uL Hgb 8.0 L 8.0 L (11.4-16.0) gm/dL Hct 28.5 L 28.1 L (34.0-46.0) % MCH 24.0 L 24.2 L (25.0-35.0) pg MCHC 28.0 L 28.7 L (31.0-37.0) g/dL RDW 18.4 H 18.5 H (11.5-15.5) % Plt Count 470 H 538 H (150-450) k/uL Chloride 94 L (98-107) mmol/L Carbon Dioxide 43 H* (22-30) mmol/L BUN 63 H (7-17) mg/dL Creatinine 1.53 H (0.52-1.04) mg/dL Glucose 134 H (74-99) mg/dL Alkaline Phosphatase 130 H (38-126) U/L Microbiology - Last 24 Hours (Table) 06/17/20 09:55 Blood Culture - Preliminary Blood No Growth after 72 hours 06/17/20 10:09 Blood Culture - Preliminary Blood No Growth after 72 hours Assessment and Plan Assessment: 1 acute respiratory failure: Much better so far does not require BiPAP more than 2 night still on O2 between 3-4 L daily 2 COPD exacerbation: Patient be on Solu-Medrol along with Pulmicort and DuoNeb continue acetazolamide along with Singulair pulmonary consultation was requested. Will decrease Solu-Medrol dose. 3 aspiration pneumonia with worsening bilateral pneumonia patient be on gram- negative coverage at this point also waiting for culture recommendation from pulmonary recommendation, Covid test came back negative for this point. Patient was started on azithromycin and Rocephin for now. 4 CHF mostly diastolic dysfunction with better ejection fraction patient will be continue on IV Lasix 40 mg every 8 hours continue to watch intake and output daily weight. 5 arrhythmia: With nonsustained A. fib patient cannot be on anticoagulation still on beta ira watch pulse rate and titrate medication to keep the pulse below 90 beats per minutes. 6 type 2 diabetes more resistant with insulin, continue patient on oral agent along with Levemir and NovoLog continue Accu-Chek with sliding scales coverage titrate medication gradually. 7 valvular heart disease: With known to have severe mitral regurgitation along with significant pulmonary hypertension on medical management this point patient is not surgical candidate. 8 gastrointestinal bleed: With the current bleed from an area of the due to numb and the jejunal area patient seen gastroenterology and upper endoscopy with longer scope has been done repeatedly with cauterization patient might require partial resection as an point for recurrent bleed. 9 acute kidney injury with chronic kidney disease stage III: Continue to watch BUN/creatinine regular basis. 10 hypertension: Continue patient on amlodipine 5 mg a day, spironolactone along with metoprolol 100 mg 3 times a day. 11 hyperlipidemia: Still on atorvastatin 40 mg daily. 12 hypothyroidism: Continue patient on levothyroxine 125 g daily. 13 anemia: Post blood transfusion, recurrent GI bleed with no bleed at this point continue to watch hemoglobin next 2 days if further drop she need to be transferred to [facility] if not with try to make an arrangement for patient to go to [facility] for double balloon endoscopy. Patient still debilitated not been able template and walk require some PTT this point. CODE STATUS: Full code.
[2020-06-21] MEDS: MONTELUKAST 10 MG TAB PO SCH (20:54)
[2020-06-22] MEDS: LEVOTHYROXINE 125 MCG TAB PO SCH (05:08)
[2020-06-22] MEDS: INSULIN ASPART (NovoLOG) 100 UNIT/ML VIAL SQ SCH ×7 (07:01→21:26)
[2020-06-22] MEDS: INSULIN DETEMIR (LEVEMIR) 100 UNIT/ML SYR SQ SCH ×2 (07:07→21:26)
[2020-06-22] MEDS: acetaZOLAMIDE 250 MG TAB PO SCH (08:41)
[2020-06-22] MEDS: GLIMEPIRIDE 2 MG TAB PO SCH (08:41)
[2020-06-22] MEDS: ATORVASTATIN 40 MG TAB PO SCH (08:41)
[2020-06-22] MEDS: PREGABALIN 100 MG CAP PO SCH ×2 (08:41→21:25)
[2020-06-22] MEDS: ISOSORBIDE MONONITRATE ER 30 MG TAB.ER.24H PO SCH (08:41)
[2020-06-22] MEDS: predniSONE 10 MG TAB PO SCH (08:41)
[2020-06-22] MEDS: FLUoxetine HCL 20 MG CAP PO SCH (08:41)
[2020-06-22] MEDS: amLODIPine 5 MG TAB PO SCH (08:41)
[2020-06-22] MEDS: PANTOPRAZOLE 40 MG TABLET PO SCH ×2 (08:41→21:26)
[2020-06-22] MEDS: LINAGLIPTIN 5 MG TABLET PO SCH (08:41)
[2020-06-22] MEDS: METOPROLOL TARTRATE 50 MG TAB PO SCH ×2 (08:43→21:25)
[2020-06-22] MEDS: ALBUTEROL HFA INHALER INHALATION SCH ×4 (09:15→19:46)
[2020-06-22] MEDS: SYMBICORT 160-4.5 MCG INHALER INHALATION SCH ×2 (09:16→19:46)
[2020-06-22] MEDS: TIOTROPIUM 2.5 MCG INHALER INHALATION SCH (09:16)
[2020-06-22 09:31] LABS: Glucose,Whole Blood 205 mg/dL (75-99)
[2020-06-22 09:31] LABS: Glucose,Whole Blood 163 mg/dL (75-99)
[2020-06-22 09:35] LABS: Glucose,Whole Blood 162 mg/dL (75-99)
[2020-06-22 09:35] LABS: Glucose,Whole Blood 173 mg/dL (75-99)
[2020-06-22 09:35] LABS: Glucose,Whole Blood 255 mg/dL (75-99)
[2020-06-22 09:37] LABS: Glucose,Whole Blood 96 mg/dL (75-99)
[2020-06-22 09:38] LABS: Glucose,Whole Blood 140 mg/dL (75-99)
[2020-06-22 09:38] LABS: Anisocytosis Slight; HCT 27.7 % (34.0-46.0); HGB 7.9 gm/dL (11.4-16.0); Hypochromasia Marked; MCHC 28.3 g/dL (31.0-37.0); MCV 84.8 fL (80.0-100.0); Mean Platelet Volume 8.8; Platelet Count 558 k/uL (150-450); Poikilocytosis Slight; RBC 3.27 m/uL (3.80-5.40); RDW 18.4 % (11.5-15.5); WBC 12.7 k/uL (3.8-10.6)
[2020-06-22 09:39] LABS: Glucose,Whole Blood 157 mg/dL (75-99)
[2020-06-22 09:39] LABS: Glucose,Whole Blood 258 mg/dL (75-99)
[2020-06-22 09:40] LABS: Glucose,Whole Blood 278 mg/dL (75-99)
[2020-06-22 09:40] LABS: Glucose,Whole Blood 161 mg/dL (75-99)
[2020-06-22 09:40] LABS: Glucose,Whole Blood 89 mg/dL (75-99)
[2020-06-22 09:52] LABS: Albumin 3.5 g/dL (3.5-5.0); Calcium 9.5 mg/dL (8.4-10.2); Potassium 5.1 mmol/L (3.5-5.1); Total Bilirubin 0.4 mg/dL (0.2-1.3); Total Protein 6.5 g/dL (6.3-8.2)
[2020-06-22 11:56] LABS: Glucose,Whole Blood 159 mg/dL (75-99)
[2020-06-22] MEDS: BUMETANIDE 1 MG TAB PO SCH ×2 (12:08→21:24)
--- NOTE | 2020-06-22 12:28 | P.PN ---
Subjective Progress Note Date: 06/22/20 CHIEF COMPLAINT: CHF HISTORY OF PRESENT ILLNESS: 06/18/2020 This is a 65-year-old female with a past medical history significant for COPD, former nicotine dependence, hyperlipidemia, hypertension, congestive heart failure, and GI bleed. Patient follows in the office with Dr. Yang. We have been asked to see the patient in consultation for congestive heart failure. Patient was recently hospitalized earlier this month for COPD, CHF, and anemia. Patient underwent an EGD with Dr. 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 She underwent repeat EGD during most recent admission revealing no active bleeding, old blood or pathology noted to explain patient's symptoms of melena and anemia. Mild gastritis. She reports still having intermittent black stools at home. Patient presents back to the hospital yesterday secondary to shortness of breath. She states she has been taking all her medications as prescribed. She reports limiting her salt intake. She denies chest pain or pressure. She is currently on 15L eating breakfast. She appears mildly short of breath. Nursing reports patient has been wearing bipap when she is not eating. 06/19/2020 Patient examined this morning at the bedside. Patient appears more comfortable today. She states her shortness of breath has improved. She denies chest pain or pressure. She remains on IV Lasix. Fluid balance over the last 24 hours is -3 L. Blood pressure stable. Heart rate in the 60s. Hemoglobin 8.2. BUN 29. Creatinine 1.12. 06/20/2020 Patient examined this morning the bedside. She states her shortness of breath is improving each day. She denies chest pain or pressure. She remains on IV Lasix. Blood pressure 108/54. Heart rate in the 60s. Creatinine increased from 1.96 from 1.1 yesterday. Patient was also started on MARKUS inhibitor yest erd. Fluid balance is -950 mL over the last 24 hours. Echocardiogram completed reveals ejection fraction 55-60%, mild aortic regurgitation, moderate aortic stenosis, mild mitral regurgitation, [id number] mitral stenosis, and mild tricuspid regurgitation 06/21/2020 Patient examined this morning. She is sitting up in the chair. She states her shortness of breath continues to improve each day. She denies chest pain or pressure. Patient's creatinine 1.53 today, improved from 1.96. Her lisinopril and Lasix were placed on hold yesterday. Blood pressure 119/58. 06/22/2020 Patient examined this morning. She is sitting up in the chair. Patient states she is feeling well this morning. She states her shortness of breath is improving. She denies chest pain or pressure. Creatinine improved to 1.12 this morning. PHYSICAL EXAM: VITAL SIGNS: Reviewed. GENERAL: Well-developed in no acute distress, however she does appear short of breath. HEENT: Head is normocephalic. Pupils are equal, round. Sclerae anicteric. Mucous membranes of the mouth are moist. Neck supple. No JVD or thyromegaly LUNGS: Respirations even and unlabored. Lungs diminished with a few crackles noted at the bases.. HEART: Regular rate and rhythm. S1 and S2 heard. Systolic murmur noted. ABDOMEN: Soft. Nondistended. Nontender. EXTREMITIES: Normal range of motion. No clubbing or cyanosis. Peripheral pulses intact. 1+ bilateral lower extremity edema NEUROLOGIC: Awake and alert. Oriented x 3. ASSESSMENT: Shortness of breath Bilateral pneumonia Acute exacerbation of COPD Acute mild exacerbation of chronic diastolic congestive heart failure, EF 55-60% Anemia with reports of continued dark stools at home, status post EGD 05/2020 Valvular heart disease: moderate aortic stenosis and moderate mitral stenosis Moderate pulmonary hypertension Hypertension Hyperlipidemia Diabetes mellitus, type II Former nicotine dependence Acute kidney injury PLAN: Resume home dose of Bumex 4mg PO BID as kidney function has improved Potassium 5.1 today. Continue to hold potassium supplementation. Recheck potassium tomorrow. Will likely need to resume potassium supplementation as her diuretics are being resumed today. Continue to monitor kidney function. If her kidney function remained stable, recommend adding low-dose MARKUS inhibitor. Daily weights Accurate I&O Further recommendations pending patient course Nurse practitioner note has been reviewed by physician. Signing provider agrees with the documented findings, assessment, and plan of care. Objective - Vital Signs Vital signs: Vital Signs Temp 97 F L 06/22/20 11:47 Pulse 62 06/22/20 11:47 Resp 20 06/22/20 11:47 BP 113/56 06/22/20 11:47 Pulse Ox 98 06/22/20 11:47 Intake & Output 06/21/20 06/22/20 06/22/20 18:59 06:59 18:59 Intake Total 580 240 Output Total 1828 1175 Balance -1245 -935 Weight 106.5 kg Intake: Oral 580 240 Output: Urine 4859 1175 Other: Voiding Method Indwelling Catheter - Labs CBC & Chem 7: 06/22/20 09:09 06/22/20 09:09 Labs: Abnormal Lab Results - Last 24 Hours (Table) 06/19/20 06/19/20 06/19/20 Range/Units 11:42 17:05 20:10 WBC (3.8-10.6) k/uL RBC (3.80-5.40) m/uL Hgb (11.4-16.0) gm/dL Hct (34.0-46.0) % MCH (25.0-35.0) pg MCHC (31.0-37.0) g/dL RDW (11.5-15.5) % Plt Count (150-450) k/uL Chloride (98-107) mmol/L Carbon Dioxide (22-30) mmol/L BUN (7-17) mg/dL Creatinine (0.52-1.04) mg/dL Glucose (74-99) mg/dL POC Glucose (mg/dL) 163 H 140 H 205 H (75-99) mg/dL Alkaline Phosphatase (38-126) U/L 06/20/20 06/20/20 06/20/20 Range/Units 12:14 16:43 20:29 WBC (3.8-10.6) k/uL RBC (3.80-5.40) m/uL Hgb (11.4-16.0) gm/dL Hct (34.0-46.0) % MCH (25.0-35.0) pg MCHC (31.0-37.0) g/dL RDW (11.5-15.5) % Plt Count (150-450) k/uL Chloride (98-107) mmol/L Carbon Dioxide (22-30) mmol/L BUN (7-17) mg/dL Creatinine (0.52-1.04) mg/dL Glucose (74-99) mg/dL POC Glucose (mg/dL) 157 H 258 H 278 H (75-99) mg/dL Alkaline Phosphatase (38-126) U/L 06/21/20 06/21/20 06/21/20 Range/Units 07:04 16:51 20:46 WBC (3.8-10.6) k/uL RBC (3.80-5.40) m/uL Hgb (11.4-16.0) gm/dL Hct (34.0-46.0) % MCH (25.0-35.0) pg MCHC (31.0-37.0) g/dL RDW (11.5-15.5) % Plt Count (150-450) k/uL Chloride (98-107) mmol/L Carbon Dioxide (22-30) mmol/L BUN (7-17) mg/dL Creatinine (0.52-1.04) mg/dL Glucose (74-99) mg/dL POC Glucose (mg/dL) 161 H 173 H 255 H (75-99) mg/dL Alkaline Phosphatase (38-126) U/L 06/22/20 06/22/20 06/22/20 Range/Units 07:01 09:09 09:09 WBC 12.7 H (3.8-10.6) k/uL RBC 3.27 L (3.80-5.40) m/uL Hgb 7.9 L (11.4-16.0) gm/dL Hct 27.7 L (34.0-46.0) % MCH 24.0 L (25.0-35.0) pg MCHC 28.3 L (31.0-37.0) g/dL RDW 18.4 H (11.5-15.5) % Plt Count 558 H (150-450) k/uL Chloride 97 L (98-107) mmol/L Carbon Dioxide 39 H (22-30) mmol/L BUN 56 H (7-17) mg/dL Creatinine 1.12 H (0.52-1.04) mg/dL Glucose 198 H (74-99) mg/dL POC Glucose (mg/dL) 162 H (75-99) mg/dL Alkaline Phosphatase 128 H (38-126) U/L 06/22/20 Range/Units 11:54 WBC (3.8-10.6) k/uL RBC (3.80-5.40) m/uL Hgb (11.4-16.0) gm/dL Hct (34.0-46.0) % MCH (25.0-35.0) pg MCHC (31.0-37.0) g/dL RDW (11.5-15.5) % Plt Count (150-450) k/uL Chloride (98-107) mmol/L Carbon Dioxide (22-30) mmol/L BUN (7-17) mg/dL Creatinine (0.52-1.04) mg/dL Glucose (74-99) mg/dL POC Glucose (mg/dL) 159 H (75-99) mg/dL Alkaline Phosphatase (38-126) U/L Microbiology - Last 24 Hours (Table) 06/17/20 10:09 Blood Culture - Preliminary Blood No Growth after 96 hours 06/17/20 09:55 Blood Culture - Preliminary Blood No Growth after 96 hours
--- NOTE | 2020-06-22 12:53 | P.PN ---
Subjective Progress Note Date: 06/22/20 Principal diagnosis: Acute respiratory failure, COPD exacerbation, aspiration pneumonia, CHF exacerbation, anemia GI bleed 65-year-old female one of my office patient with multiple medical problem with recurrent visit to [facility] with GI bleed multiple endoscopy with ca uterization done in the last few weeks. Patient was in the hospital over 3 weeks ago for worsening dyspnea and shortness of breath consistent with GI bleed and severe anemia cause worsening respiratory failure the time along with bilateral pneumonia and fluid overload was treated ended up having blood transfusion ended up going to the endoscopy unit with EGD done with Dr. Ivy with more than 2 area cauterized at the time and ended up having capsule endoscopy which analysis did not show any major abnormality at the time. Patient was seen in the office for follow-up hemoglobin was still running in the mid 8-90 g at the time last week was seen and done well. Patient developed to have worsening dyspnea and shortness of breath along with mid abdominal pain and discomfort with sharp discomfort under the xiphoid. Patient was in acute respiratory distress: 911 and ended up being transferred to [facility] at [facility] where was seen and evaluated her hemoglobin was slightly bit lower at the time. Patient chest x-ray showed significant infiltrate with advance COPD and fluid overload the patient was started on IV diuretics mixup with graft treatment will be seen cardiology and pulmonary Hemoccult was order and patient be seen gastroenterology for possible need for another endoscopy if needed. Almost the possibility for intervention or surgical intervention for harsher section can be the best next step which patient is not a candidate for this point. Adrian no exposure to Covid 19 recently and testing is negative. 06/18: Patient was evaluated this morning, noted to be sitting up in bed. She has complaints of shortness of breath, BiPAP in place, she is noted to be tachypenic, her oxygen saturation is 99%, her blood pressure is stable 128/58, heart rate of 70, respiratory rate 28. Hemoglobin did drop from yesterday to 7.1, 1 unit of packed red blood cells were ordered with a dose of IV Lasix. Patient continues to be diuresed with IV Lasix, weight is down 8 pounds since admission. Willl continue to monitor CBC closely. Cardiology, GI, and pulmonary on consult. 06/19: Patient evaluated this morning, noted to be resting in bed comfortably, in no acute distress. She is able to wean down off BiPAP and is currently on 10 L of high flow oxygen and is saturating 92%. Her vital signs remain stable she is afebrile 98.3, heart rate 77, respiratory rate of 20, blood pressure 122/58. Patient reports she is feeling slightly better and is not short of breath. Hemoglobin is stable was 8.2 after she received 1 unit of packed red blood cells yesterday. Her CO2 remains high at 42, blood cultures show no growth to date. Per GI notes no plans for upper endoscopy, patient may needs to be transferred to tertiary center for possible double-balloon enteroscopy, if GI decides on this, agreeable to the plan. We'll continue to monitor CBC closely and tra nsfuse for hemoglobin less than 7. 06/20: Patient is doing well no active bleed at this point patient is not going for an EGD with Dr. Ivy the plan was if she continued to bleed she need to go for possible double-balloon endoscopy at one of the tertiary center like [facility]. Continue current management, patient still require BiPAP through the night, O2 slightly bit higher than her normal demand. Patient does not require any blood point. 06/21: No need for blood transfusion so far patient will continue PTOT and will require at least subacute rehab if further drop in hemoglobin need to be moved to one of the large center if not would keep patient center for physical therapy and rehab Center and patient to go for an outpatient consultation for double endoscopy down at [facility]. 06/22: Slight drop in hemoglobin patient is more symptomatic been out of breath, long discussion with Dr. Ivy about the possibility of outpatient referral for double-balloon enteroscopy at [facility] and she is agreeable plan will be made from the office, in the meanwhile patient is still symptomatic with significant shortness of breath with the layer discharged tomorrow if further drop in hemoglobin might need to be transfer as an inpatient if hemoglobin stable my be discharged home and follow up as an outpatient patient not able template and walk with try to do subacute rehab as well. Objective - Vital Signs Vital signs: Vital Signs Temp 97 F L 06/22/20 11:47 Pulse 62 06/22/20 11:47 Resp 20 06/22/20 11:47 BP 113/56 06/22/20 11:47 Pulse Ox 98 06/22/20 11:47 Intake & Output 06/21/20 06/22/20 06/22/20 18:59 06:59 18:59 Intake Total 580 240 Output Total 1825 1175 Balance -1245 -935 Weight 106.5 kg Intake: Oral 580 240 Output: Urine 1825 1175 Other: Voiding Method Indwelling Catheter - Exam Review of systems: CONSTITUTIONAL: Well-developed mild respiratory distress with mild obesity EYES: No icterus sclerae, no conjunctivitis. EARS, NOSE, MOUTH, THROAT, and FACE: No sore throat, lymphadenopathy, carotid bruits or deformity. RESPIRATORY: Positive dyspnea and shortness of breath CARDIOVASCULAR: Positive PND at 70 palpitation GASTROINTESTINAL: No Abd pain, Nausea or vomiting, no Diarrhea or constipation, No GI Bleed, no distention or masses. Recurrent GI bleed GENITOURINARY: Negative for Hematuria or UTI, no kidney stones. INTEGUMENT/BREAST: Negative for any muscular injury with mild osteoarthritis.. HEMATOLOGIC/LYMPHATIC: Negative for bleed or purpura. MUSCULOSKELTAL: Negative for Myalgia or arthralgia. NEURLOGICAL: No LOC, Sz or syncope, blurred vision dizziness or abnormality.. BEHAVIORAL/PSYCH: Negative. ENDOCRINE: Negative. - Exam General Appearance: Alert, cooperative, continues to be in mild respiratory distress Neck HEENT: Supple, no lymphadenopathy, no thyroid enlargement, no carotid bruits. Lungs: Decreased breath Regulo acute final rhonchi positive crackles positive mild this but espresso wheezes was seen in the right side left side. Chest Wall: Decrease expansion with deep inspiration no tenderness and no deformity was found on exam, no costochondral pain or discomfort. Heart: Regular rate and rhythm, S1, S2 with systolic murmur Back: Symmetric, no curvature, ROM normal, no CVA tenderness. Abdomen: Distended significant discomfort in the epigastric area and mid ab dominal region area and rebound or rigidity no masses. Extremities: Extremities normal, atraumatic, significant edema Pulses: 2+ and symmetric. Skin: Skin color, texture, tugor normal, no rashes or lesions. Neurologic: Alert oriented x3 cranial nerves II through XII intact, no motor deficit, no abnormal balance or gait. - Labs CBC & Chem 7: 06/22/20 09:09 06/22/20 09:09 Labs: Abnormal Lab Results - Last 24 Hours (Table) 06/19/20 06/19/20 06/19/20 Range/Units 11:42 17:05 20:10 WBC (3.8-10.6) k/uL RBC (3.80-5.40) m/uL Hgb (11.4-16.0) gm/dL Hct (34.0-46.0) % MCH (25.0-35.0) pg MCHC (31.0-37.0) g/dL RDW (11.5-15.5) % Plt Count (150-450) k/uL Chloride (98-107) mmol/L Carbon Dioxide (22-30) mmol/L BUN (7-17) mg/dL Creatinine (0.52-1.04) mg/dL Glucose (74-99) mg/dL POC Glucose (mg/dL) 163 H 140 H 205 H (75-99) mg/dL Alkaline Phosphatase (38-126) U/L 06/20/20 06/20/20 06/20/20 Range/Units 12:14 16:43 20:29 WBC (3.8-10.6) k/uL RBC (3.80-5.40) m/uL Hgb (11.4-16.0) gm/dL Hct (34.0-46.0) % MCH (25.0-35.0) pg MCHC (31.0-37.0) g/dL RDW (11.5-15.5) % Plt Count (150-450) k/uL Chloride (98-107) mmol/L Carbon Dioxide (22-30) mmol/L BUN (7-17) mg/dL Creatinine (0.52-1.04) mg/dL Glucose (74-99) mg/dL POC Glucose (mg/dL) 157 H 258 H 278 H (75-99) mg/dL Alkaline Phosphatase (38-126) U/L 06/21/20 06/21/20 06/21/20 Range/Units 07:04 16:51 20:46 WBC (3.8-10.6) k/uL RBC (3.80-5.40) m/uL Hgb (11.4-16.0) gm/dL Hct (34.0-46.0) % MCH (25.0-35.0) pg MCHC (31.0-37.0) g/dL RDW (11.5-15.5) % Plt Count (150-450) k/uL Chloride (98-107) mmol/L Carbon Dioxide (22-30) mmol/L BUN (7-17) mg/dL Creatinine (0.52-1.04) mg/dL Glucose (74-99) mg/dL POC Glucose (mg/dL) 161 H 173 H 255 H (75-99) mg/dL Alkaline Phosphatase (38-126) U/L 06/22/20 06/22/20 06/22/20 Range/Units 07:01 09:09 09:09 WBC 12.7 H (3.8-10.6) k/uL RBC 3.27 L (3.80-5.40) m/uL Hgb 7.9 L (11.4-16.0) gm/dL Hct 27.7 L (34.0-46.0) % MCH 24.0 L (25.0-35.0) pg MCHC 28.3 L (31.0-37.0) g/dL RDW 18.4 H (11.5-15.5) % Plt Count 558 H (150-450) k/uL Chloride 97 L (98-107) mmol/L Carbon Dioxide 39 H (22-30) mmol/L BUN 56 H (7-17) mg/dL Creatinine 1.12 H (0.52-1.04) mg/dL Glucose 198 H (74-99) mg/dL POC Glucose (mg/dL) 162 H (75-99) mg/dL Alkaline Phosphatase 128 H (38-126) U/L 06/22/20 Range/Units 11:54 WBC (3.8-10.6) k/uL RBC (3.80-5.40) m/uL Hgb (11.4-16.0) gm/dL Hct (34.0-46.0) % MCH (25.0-35.0) pg MCHC (31.0-37.0) g/dL RDW (11.5-15.5) % Plt Count (150-450) k/uL Chloride (98-107) mmol/L Carbon Dioxide (22-30) mmol/L BUN (7-17) mg/dL Creatinine (0.52-1.04) mg/dL Glucose (74-99) mg/dL POC Glucose (mg/dL) 159 H (75-99) mg/dL Alkaline Phosphatase (38-126) U/L Microbiology - Last 24 Hours (Table) 06/17/20 10:09 Blood Culture - Preliminary Blood No Growth after 96 hours 06/17/20 09:55 Blood Culture - Preliminary Blood No Growth after 96 hours Assessment and Plan Assessment: 1 acute respiratory failure: Much better so far does not require BiPAP more than 2 night still on O2 between 3-4 L daily 2 COPD exacerbation: Patient be on Solu-Medrol along with Pulmicort and DuoNeb continue acetazolamide along with Singulair pulmonary consultation was requested. Will decrease Solu-Medrol dose, and switch to oral prednisone. 3 aspiration pneumonia with worsening bilateral pneumonia patient be on gram- negative coverage at this point also waiting for culture recommendation from pulmonary recommendation, Covid test came back negative for this point. Patient was started on azithromycin and Rocephin for now. Switch patient to oral antibiotic leg doxycycline for 7 more days. 4 CHF mostly diastolic dysfunction with better ejection fraction patient will be continue on IV Lasix 40 mg every 8 hours continue to watch intake and output daily weight. 5 arrhythmia: With nonsustained A. fib patient cannot be on anticoagulation st ill on beta ira watch pulse rate and titrate medication to keep the pulse below 90 beats per minutes. 6 type 2 diabetes more resistant with insulin, continue patient on oral agent along with Levemir and NovoLog continue Accu-Chek with sliding scales coverage titrate medication gradually. 7 valvular heart disease: With known to have severe mitral regurgitation along with significant pulmonary hypertension on medical management this point patient is not surgical candidate. 8 gastrointestinal bleed: With the current bleed from an area of the due to numb and the jejunal area patient seen gastroenterology and upper endoscopy with longer scope has been done repeatedly with cauterization patient might require partial resection as an point for recurrent bleed. 9 acute kidney injury with chronic kidney disease stage III: Continue to watch BUN/creatinine regular basis. 10 hypertension: Continue patient on amlodipine 5 mg a day, spironolactone along with metoprolol 100 mg 3 times a day. 11 hyperlipidemia: Still on atorvastatin 40 mg daily. 12 hypothyroidism: Continue patient on levothyroxine 125 g daily. 13 anemia: Post blood transfusion, recurrent GI bleed with no bleed at this point continue to watch hemoglobin next 2 days if further drop she need to be transferred to [facility] if not with try to make an arrangement for patient to go to [facility] for double balloon endoscopy. Patient still debilitated not been able template and walk require some PTT this point. CODE STATUS: Full code. Discharge planning: Possible discharge home tomorrow.
--- NOTE | 2020-06-22 13:20 | PN ---
PROGRESS NOTE PULMONARY/CRITICAL CARE PROGRESS NOTE: DATE OF SERVICE: 06/22/2020 65-year-old female well known to our service. She has multiple admissions to the hospital with shortness of breath, secondary to hypoxemic respiratory failure usually secondary to both CHF and/or COPD. She is doing better. Her nasal O2 has been weaned down. She is using BiPAP at nighttime. She has a BiPAP device at home that she uses in the p.m. anyway. The patient is feeling better. When she came in, her primary complaint was shortness of breath, weight gain, lower extremity edema, orthopnea, and paroxysmal nocturnal dyspnea. PHYSICAL EXAMINATION: VITAL SIGNS: Current vital signs are reviewed. Temperature is 97, heart rate 62, respiratory rate 20, blood pressure 113/56, saturations are 98% on 5 L. That can probably be weaned down. HEENT: Examination is grossly unremarkable. She is on nasal O2 of 5 L. NECK: Supple. Full range of motion. No adenopathy. Neck veins are flat. CARDIOVASCULAR: Examination reveals a regular rhythm rand ate. Heart rate is in the mid 70s. S1, S2 normal. There is a soft systolic murmur. LUNGS: Reveal some diffuse coarse rhonchi and crackles. Breath sounds equal. No wheezes. ABDOMEN: Obese. Bowel sounds are heard. EXTREMITIES are intact. There is some edema. It is improved. No cyanosis or clubbing. SKIN is without rash. There is some mild erythema of the lower extremities. NEUROLOGIC: Examination is nonfocal. LABS: Reviewed. White count 12.7, hemoglobin 7.9, hematocrit 27.7, platelet count 558,000. Sodium and potassium normal. Chloride 97, CO2 39, anion gap is 3. BUN and creatinine were 56 and 1.12. Microbiology is negative. A chest x-ray from yesterday is consistent in my opinion with cardiomegaly and some mild fluid overload. MEDICATIONS: Reviewed. Medications include Tylenol No.3, Diamox, albuterol inhaler, amlodipine, Lipitor, Symbicort, Bumex, Prozac, Amaryl, insulin, Imdur, levothyroxine, Tradjenta, Robaxin, Lopressor, Singulair, nitroglycerin sublingual, Protonix, prednisone, Lyrica, Requip, and Senokot. The patient is also on Spiriva. ASSESSMENT: 1. Shortness of breath, secondary to primarily congestive heart failure, but there is also component of chronic obstructive pulmonary disease exacerbation. 2. History of hyperlipidemia. 3. Morbid obesity. 4. Diabetes mellitus. 5. History of chronic hypoxemic respiratory failure, with nocturnal BiPAP use at home. 6. Probable sleep apnea syndrome. 7. Rule out Pickwickian syndrome. 8. Hypothyroidism. 9. History of congestive heart failure, chronic. 10.History of chronic obstructive pulmonary disease from previous heavy tobacco use. 11.History of gastrointestinal bleed with multiple areas of angiodysplasia. 12.History of neuropathy. 13.Multiple other medical problems and comorbidities. PLAN: According to the primary service, the patient might be transferred to [facility] for evaluation of her gastrointestinal angiodysplasias. From the pulmonary standpoint, she is fine. She is down to 5 L. It can probably be weaned down even further. Her BiPAP settings are 10/5. She uses that at nighttime. No additional recommendations are made. Prognosis is guarded. We will continue to follow. Medications are reviewed. MMODL / IJN: [id number] /
[2020-06-22 16:49] LABS: Glucose,Whole Blood 205 mg/dL (75-99)
--- NOTE | 2020-06-22 18:10 | PN ---
PROGRESS NOTE DATE OF SERVICE: June 22, 2020 Patient is a 65-year-old pleasant white female admitted to hospital with exacerbation of COPD, CHF, and recurrent anemia requiring blood transfusion. She is doing better. The bleeding is much better. She denies any bleeding. Hemoglobin stable at 8 g/dL. She denies any abdominal pain. No nausea, no vomiting. PHYSICAL EXAMINATION: Appears comfortable no apparent distress. Vital signs stable. Blood pressure is 112/54, pulse 85, temperature 97.5. HEENT examination unremarkable. Conjunctivae pink. Sclerae anicteric. Oral cavity no lesions. Neck no JVD or lymph node enlargement. CHEST was clear to auscultation. HEART: Regular rate and rhythm. ABDOMEN: Soft, it was obese. Bowel sounds are positive. Extremities: No pedal edema. Neuro: She is alert and oriented x3. No focal deficits. LABS: From today WBC 10.7, hemoglobin 7.9, platelets 558. BUN 56, creatinine 1.12. IMPRESSION: 1. Recurrent anemia secondary to occult gastrointestinal blood loss/gastrointestinal bleed. Patient hemodynamically stable. No further bleeding during this hospitalization. She had multiple upper endoscopies and enteroscopies done over the last 6 months. Last one on June 03, 2020 with findings of duodenal angioectasia that was cauterized. She received one unit of PRBCs transfusion during this hospitalization. No further bleeding. Doing well. 2. Exacerbation of chronic obstructive pulmonary disease and congestive heart failure. 3. Chronic kidney disease. RECOMMENDATIONS: 1. Continue to monitor CBC daily. 2. Discussed with Dr. Deras and will schedule her to be seen at [facility] for possible double balloon enteroscopy on an outpatient basis. 3. Monitor CBC daily. 4. Continue Protonix 40 mg daily and we will follow with you. Thank you for this consultation. MMODL / IJN: [id number] /
[2020-06-22 19:47] LABS: Glucose,Whole Blood 349 mg/dL (75-99)
[2020-06-22] MEDS: MONTELUKAST 10 MG TAB PO SCH (21:36)
[2020-06-23 06:16] LABS: Glucose,Whole Blood 200 mg/dL (75-99)
[2020-06-23] MEDS: INSULIN ASPART (NovoLOG) 100 UNIT/ML VIAL SQ SCH ×4 (06:44→12:29)
[2020-06-23] MEDS: INSULIN DETEMIR (LEVEMIR) 100 UNIT/ML SYR SQ SCH (06:44)
[2020-06-23] MEDS: LEVOTHYROXINE 125 MCG TAB PO SCH (06:45)
[2020-06-23 07:34] LABS: Anisocytosis Slight; HCT 28.6 % (34.0-46.0); HGB 8.2 gm/dL (11.4-16.0); Hypochromasia Marked; MCH 23.6 pg (25.0-35.0); MCHC 28.5 g/dL (31.0-37.0); MCV 82.9 fL (80.0-100.0); Mean Platelet Volume 8.2; Microcytosis Slight; Platelet Count 675 k/uL (150-450); Poikilocytosis Slight; RBC 3.46 m/uL (3.80-5.40); RDW 18.6 % (11.5-15.5)
[2020-06-23 07:40] LABS: Albumin 3.9 g/dL (3.5-5.0); Calcium 9.4 mg/dL (8.4-10.2); Potassium 4.2 mmol/L (3.5-5.1); Total Bilirubin 0.4 mg/dL (0.2-1.3); Total Protein 7.2 g/dL (6.3-8.2)
[2020-06-23] MEDS: TIOTROPIUM 2.5 MCG INHALER INHALATION SCH (07:50)
[2020-06-23] MEDS: SYMBICORT 160-4.5 MCG INHALER INHALATION SCH (07:50)
[2020-06-23] MEDS: ALBUTEROL HFA INHALER INHALATION SCH ×2 (07:50→11:54)
[2020-06-23 08:20] VITALS: RESP 18; TEMP 97.9
[2020-06-23] MEDS: ISOSORBIDE MONONITRATE ER 30 MG TAB.ER.24H PO SCH (08:21)
[2020-06-23] MEDS: acetaZOLAMIDE 250 MG TAB PO SCH (08:21)
[2020-06-23] MEDS: LINAGLIPTIN 5 MG TABLET PO SCH (08:21)
[2020-06-23] MEDS: amLODIPine 5 MG TAB PO SCH (08:21)
[2020-06-23] MEDS: PREGABALIN 100 MG CAP PO SCH (08:21)
[2020-06-23] MEDS: METOPROLOL TARTRATE 50 MG TAB PO SCH (08:21)
[2020-06-23] MEDS: FLUoxetine HCL 20 MG CAP PO SCH (08:22)
[2020-06-23] MEDS: BUMETANIDE 1 MG TAB PO SCH (08:22)
[2020-06-23] MEDS: ATORVASTATIN 40 MG TAB PO SCH (08:22)
[2020-06-23] MEDS: PANTOPRAZOLE 40 MG TABLET PO SCH (08:22)
[2020-06-23] MEDS: GLIMEPIRIDE 2 MG TAB PO SCH (08:22)
--- NOTE | 2020-06-23 08:35 | P.PN ---
Subjective Progress Note Date: 06/23/20 65-year-old female patient was admitted multiple hospitalizations in the past, coming in for worsening shortness of breath and acute hypoxic respiratory failure secondary to COPD/CHF exacerbation. The patient is being seen today on follow-up on 06/15/2020. The patient will be getting better. She is on oxygen on nasal cannula and she is utilizing BiPAP overnight. She has a home BiPAP device and she uses it every night. Overall, she is on 4 L of oxygen by nasal cannula with a pulse is 78%. Her shortness of breath or edema is also improving. Note that the patient was also hospitalized a few weeks back for GI bleed and she underwent endoscopy with cauterization. She required packed RBC transfusion. The patient continued to have slight drop in hemoglobin and she has a reevaluation by gastroenterology and she was being considered for possible outpatient referral for a double balloon enteroscopy at [facility] in regards to her episodic GI bleeding. 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 In terms of her cardiac status, the patient is a preserved LV function. She does have a moderate degree of aortic stenosis and [id number] mitral stenosis with an LV ejection fraction of 55-60%. LA was dilated . In terms of her COPD, the patient is currently on a combination of Symbicort, Spiriva and prednisone 20 mg on a daily basis. Note that the patient has not shown any signs of bleeding overnight. Patient's hemoglobin is currently on 8.2. Her blood work shows a component wasn't alkalosis and the serum bicarbs up to 46. She takes Diamox 250 mg by mouth on a daily basis. She is also on a long-term prednisone 20 mg on a daily basis. Objective - Vital Signs Vital signs: Vital Signs Temp 97.9 F 06/23/20 08:19 Pulse 65 06/23/20 08:19 Resp 18 06/23/20 08:19 BP 114/57 06/23/20 08:19 Pulse Ox 97 06/23/20 08:19 Intake & Output 06/22/20 06/23/20 06/23/20 18:59 06:59 18:59 Intake Total 720 Output Total 3075 1900 Balance -2355 -1900 Weight 109.2 kg Intake: Oral 720 Output: Urine 3075 1900 Other: Voiding Method Indwelling Catheter Indwelling Catheter # Voids 1 - Exam GENERAL EXAM: Alert, very pleasant, 65-year-old white female, on 4 L of oxygen a pulse ox 97% comfortable in no apparent distress. HEAD: Normocephalic/atraumatic. EYES: Normal reaction of pupils, equal size. Conjunctiva pink, sclera white. NOSE: Clear with pink turbinates. THROAT: No erythema or exudates. NECK: No masses, no JVD, no thyroid enlargement, no adenopathy. CHEST: No chest wall deformity. Symmetrical expansion. LUNGS: Equal air entry with no crackles, wheeze, rhonchi or dullness. CVS: Regular rate and rhythm, normal S1 and S2, no gallops, no murmurs, no rubs ABDOMEN: Soft, nontender. No hepatosplenomegaly, normal bowel sounds, no guarding or rigidity. EXTREMITIES: No clubbing, 1+ lower extremity edema, no cyanosis, 2+ pulses and upper and lower extremities. MUSCULOSKELETAL: Muscle strength and tone normal. SPINE: No scoliosis or deformity SKIN: No rashes CENTRAL NERVOUS SYSTEM: Alert and oriented -3. No focal deficits, tone is normal in all 4 extremities. PSYCHIATRIC: Alert and oriented -3. Appropriate affect. Intact judgment and insight. - Labs CBC & Chem 7: 06/23/20 06:53 06/23/20 06:53 Labs: Abnormal Lab Results - Last 24 Hours (Table) 06/19/20 06/19/20 06/19/20 Range/Units 11:42 17:05 20:10 WBC (3.8-10.6) k/uL RBC (3.80-5.40) m/uL Hgb (11.4-16.0) gm/dL Hct (34.0-46.0) % MCH (25.0-35.0) pg MCHC (31.0-37.0) g/dL RDW (11.5-15.5) % Plt Count (150-450) k/uL Chloride (98-107) mmol/L Carbon Dioxide (22-30) mmol/L BUN (7-17) mg/dL Creatinine (0.52-1.04) mg/dL Glucose (74-99) mg/dL POC Glucose (mg/dL) 163 H 140 H 205 H (75-99) mg/dL Alkaline Phosphatase (38-126) U/L 06/20/20 06/20/20 06/20/20 Range/Units 12:14 16:43 20:29 WBC (3.8-10.6) k/uL RBC (3.80-5.40) m/uL Hgb (11.4-16.0) gm/dL Hct (34.0-46.0) % MCH (25.0-35.0) pg MCHC (31.0-37.0) g/dL RDW (11.5-15.5) % Plt Count (150-450) k/uL Chloride (98-107) mmol/L Carbon Dioxide (22-30) mmol/L BUN (7-17) mg/dL Creatinine (0.52-1.04) mg/dL Glucose (74-99) mg/dL POC Glucose (mg/dL) 157 H 258 H 278 H (75-99) mg/dL Alkaline Phosphatase (38-126) U/L 06/21/20 06/21/20 06/21/20 Range/Units 07:04 16:51 20:46 WBC (3.8-10.6) k/uL RBC (3.80-5.40) m/uL Hgb (11.4-16.0) gm/dL Hct (34.0-46.0) % MCH (25.0-35.0) pg MCHC (31.0-37.0) g/dL RDW (11.5-15.5) % Plt Count (150-450) k/uL Chloride (98-107) mmol/L Carbon Dioxide (22-30) mmol/L BUN (7-17) mg/dL Creatinine (0.52-1.04) mg/dL Glucose (74-99) mg/dL POC Glucose (mg/dL) 161 H 173 H 255 H (75-99) mg/dL Alkaline Phosphatase (38-126) U/L 06/22/20 06/22/20 06/22/20 Range/Units 07:01 09:09 09:09 WBC 12.7 H (3.8-10.6) k/uL RBC 3.27 L (3.80-5.40) m/uL Hgb 7.9 L (11.4-16.0) gm/dL Hct 27.7 L (34.0-46.0) % MCH 24.0 L (25.0-35.0) pg MCHC 28.3 L (31.0-37.0) g/dL RDW 18.4 H (11.5-15.5) % Plt Count 558 H (150-450) k/uL Chloride 97 L (98-107) mmol/L Carbon Dioxide 39 H (22-30) mmol/L BUN 56 H (7-17) mg/dL Creatinine 1.12 H (0.52-1.04) mg/dL Glucose 198 H (74-99) mg/dL POC Glucose (mg/dL) 162 H (75-99) mg/dL Alkaline Phosphatase 128 H (38-126) U/L 06/22/20 06/22/20 06/22/20 Range/Units 11:54 16:47 19:45 WBC (3.8-10.6) k/uL RBC (3.80-5.40) m/uL Hgb (11.4-16.0) gm/dL Hct (34.0-46.0) % MCH (25.0-35.0) pg MCHC (31.0-37.0) g/dL RDW (11.5-15.5) % Plt Count (150-450) k/uL Chloride (98-107) mmol/L Carbon Dioxide (22-30) mmol/L BUN (7-17) mg/dL Creatinine (0.52-1.04) mg/dL Glucose (74-99) mg/dL POC Glucose (mg/dL) 159 H 205 H 349 H (75-99) mg/dL Alkaline Phosphatase (38-126) U/L 06/23/20 06/23/20 06/23/20 Range/Units 06:15 06:53 06:53 WBC 15.0 H (3.8-10.6) k/uL RBC 3.46 L (3.80-5.40) m/uL Hgb 8.2 L (11.4-16.0) gm/dL Hct 28.6 L (34.0-46.0) % MCH 23.6 L (25.0-35.0) pg MCHC 28.5 L (31.0-37.0) g/dL RDW 18.6 H (11.5-15.5) % Plt Count 675 H (150-450) k/uL Chloride 88 L (98-107) mmol/L Carbon Dioxide 46 H* (22-30) mmol/L BUN 57 H (7-17) mg/dL Creatinine 1.20 H (0.52-1.04) mg/dL Glucose 152 H (74-99) mg/dL POC Glucose (mg/dL) 200 H (75-99) mg/dL Alkaline Phosphatase 145 H (38-126) U/L Microbiology - Last 24 Hours (Table) 06/17/20 10:09 Blood Culture - Preliminary Blood No Growth after 120 hours 06/17/20 09:55 Blood Culture - Preliminary Blood No Growth after 120 hours Assessment and Plan Plan: #1. Acute on chronic hypoxic respiratory failure related to acute exacerbation of CHF with diastolic dysfunction, responded to diuretics and currently she is on oxygen at 4 L.on examination she continues to have some crackles in lung bases and she is on 4 L of oxygen by nasal cannula. She is utilizing BiPAP overnight at a pressure of 10/5 cm of water. She does have a device at home #2. upper GI bleed, most likely secondary to angiectasia's of the doudenum and the patient had undergone a previous EGD and electrocautery back in April and May 2020. She received packed RBC during this current previous admissions the hemoglobin is up to 8.2. #2. Chronic hypoxic rest or a failure related to history of COPD, patient usually wears 2 L of oxygen during the day 3 L of oxygen at night, currently on 4 liters #3. Chronic CHF, with history of valvular disease, we will obtain echocardiogram, patient follows with Dr. Tyson from [place]. The patient has moderate to severe MS and aortic stenosis and please refer to the most recent echocardiogram #4. Acute on chronic anemia, related to GI bleeding and melena, with a recent history of endoscopic evaluation and small bowel capsule endoscopy at [facility] which revealed small bowel bleeding status post cauterization. Status post transfusion with packed blood cells. She had repeat endoscopy in [facility] in May 2020 #5. Diabetes mellitus 2 diabetic neuropathy #6. Obstructive sleep apnea on BiPAP #7. Hypothyroidism #8. History of smoking, currently in remission for last 3 months, patient carries 40 years of smoking of one pack a day #9. Depression Plan The patient is developed some metabolic alkalosis. Recommend dropping her Bumex dose to once a day the patient has no signs of fluid overload. Continue oral Diamox. Continue BiPAP overnight. Watch for any signs of GI bleeding. Hemoglobin is at 8.2. She is on Protonix. GI is on the case. We'll continue to follow.
[2020-06-23] MEDS ORDERED: predniSONE 20 MG TAB PO SCH (09:00)
--- NOTE | 2020-06-23 10:49 | P.PN ---
Subjective Acute respiratory failure, COPD exacerbation, aspiration pneumonia, CHF exacerbation, anemia GI bleed 65-year-old female one of my office patient with multiple medical problem with recurrent visit to [facility] department with GI bleed multiple endoscopy with cauterization done in the last few weeks. Patient was in the hospital over 3 weeks ago for worsening dyspnea and shortness of breath consistent with GI bleed and severe anemia cause worsening respiratory failure the time along with bilateral pneumonia and fluid overload was treated ended up having blood transfusion ended up going to the endoscopy unit with EGD done with Dr. Ivy with more than 2 area cauterized at the time and ended up having capsule endoscopy which analysis did not show any major abnormality at the time. Patient was seen in the office for follow-up hemoglobin was still running in the mid 8-90 g at the time last week was seen and done well. Patient developed to have worsening dyspnea and shortness of breath along with mid abdominal pain and discomfort with sharp discomfort under the xiphoid. Patient was in acute respiratory distress: 911 and ended up being transferred to [facility] department at [facility] where was seen and evaluated her hemoglobin was slightly bit lower at the time. Patient chest x-ray showed significant infiltrate with advance COPD and fluid overload the patient was started on IV diuretics mixup with graft treatment will be seen cardiology and pulmonary Hemoccult was order and patient be seen gastroenterology for possible need for another endoscopy if needed. Almost the possibility for intervention or surgical intervention for harsher section can be the best next step which patient is not a candidate for this point. [place] no exposure to Covid 19 recently and testing is negative. 06/18: Patient was evaluated this morning, noted to be sitting up in bed. She has complaints of shortness of breath, BiPAP in place, she is noted to be tachypenic, her oxygen saturation is 99%, her blood pressure is stable 128/58, heart rate of 70, respiratory rate 28. Hemoglobin did drop from yesterday to 7.1, 1 unit of packed red blood cells were ordered with a dose of IV Lasix. Patient continues to be diuresed with IV Lasix, weight is down 8 pounds since admission. Willl continue to monitor CBC closely. Cardiology, GI, and pu lmonary on consult. 06/19: Patient evaluated this morning, noted to be resting in bed comfortably, in no acute distress. She is able to wean down off BiPAP and is currently on 10 L of high flow oxygen and is saturating 92%. Her vital signs remain stable she is afebrile 98.3, heart rate 77, respiratory rate of 20, blood pressure 122/58. Patient reports she is feeling slightly better and is not short of breath. Hemoglobin is stable was 8.2 after she received 1 unit of packed red blood cells yesterday. Her CO2 remains high at 42, blood cultures show no growth to date. Per GI notes no plans for upper endoscopy, patient may needs to be transferred to tertiary center for possible double-balloon enteroscopy, if GI decides on this, agreeable to the plan. We'll continue to monitor CBC closely and transfuse for hemoglobin less than 7. 06/20: Patient is doing well no active bleed at this point patient is not going for an EGD with Dr. Ivy the plan was if she continued to bleed she need to go for possible double-balloon endoscopy at one of the tertiary center like [facility]. Continue current management, patient still require BiPAP through the night, O2 slightly bit higher than her normal demand. Patient does not require any blood point. 06/21: No need for blood transfusion so far patient will continue PTOT and will require at least subacute rehab if further drop in hemoglobin need to be moved to one of the large center if not would keep patient center for physical therapy and rehab Center and patient to go for an outpatient consultation for double endoscopy down at [facility]. 06/22: Slight drop in hemoglobin patient is more symptomatic been out of breath, long discussion with Dr. Ivy about the possibility of outpatient referral for double-balloon enteroscopy at [facility] and she is agreeable plan will be made from the office, in the meanwhile patient is still symptomatic with significant shortness of breath with the layer discharged tomorrow if further drop in hemoglobin might need to be transfer as an inpatient if hemoglobin stable my be discharged home and follow up as an outpatient patient not able template and walk with try to do subacute rehab as well. 06/23: Patient evaluated today sitting up in the bedside chair, no acute distress. Patient reports her shortness of breath is improving. Hemoglobin has stabilized and is at 8.2, she continues on pantoprazole. Metabolic alkalosis noted, Bumex was decreased to once daily. Patient will be discharged home with a follow-up with [facility] for possible double-balloon enteroscopy, this will be made as an outpatient basis. Discharge diagnoses 1 acute respiratory failure 2 COPD exacerbation 3 aspiration pneumonia with worsening bilateral pneumonia patient be on gram- negative coverage 4 CHF mostly diastolic dysfunction with better ejection fraction 5 arrhythmia 6 type 2 diabetes 7 valvular heart disease 8 gastrointestinal bleed 9 acute kidney injury with chronic kidney disease stage III 10 hypertension 11 hyperlipidemia 12 hypothyroidism 13 anemia The above impression and plan of care have been discussed and directed by signing physician. Tea Rogers nurse practitioner acting as scribe for signing physician. Objective - Vital Signs Vital signs: Vital Signs Temp 97.9 F 06/23/20 08:19 Pulse 65 06/23/20 08:19 Resp 18 06/23/20 08:19 BP 114/57 06/23/20 08:19 Pulse Ox 97 06/23/20 08:19 Intake & Output 06/22/20 06/23/20 06/23/20 18:59 06:59 18:59 Intake Total 720 180 Output Total 3075 1900 Balance -2355 -1900 180 Weight 109.2 kg Intake: Oral 720 180 Output: Urine 3075 1900 Other: Voiding Method Indwelling Catheter Indwelling Catheter Toilet # Voids 1 - Labs CBC & Chem 7: 06/23/20 06:53 06/23/20 06:53 Labs: Abnormal Lab Results - Last 24 Hours (Table) 06/22/20 06/22/20 06/22/20 Range/Units 11:54 16:47 19:45 WBC (3.8-10.6) k/uL RBC (3.80-5.40) m/uL Hgb (11.4-16.0) gm/dL Hct (34.0-46.0) % MCH (25.0-35.0) pg MCHC (31.0-37.0) g/dL RDW (11.5-15.5) % Plt Count (150-450) k/uL Chloride (98-107) mmol/L Carbon Dioxide (22-30) mmol/L BUN (7-17) mg/dL Creatinine (0.52-1.04) mg/dL Glucose (74-99) mg/dL POC Glucose (mg/dL) 159 H 205 H 349 H (75-99) mg/dL Alkaline Phosphatase (38-126) U/L 06/23/20 06/23/20 06/23/20 Range/Units 06:15 06:53 06:53 WBC 15.0 H (3.8-10.6) k/uL RBC 3.46 L (3.80-5.40) m/uL Hgb 8.2 L (11.4-16.0) gm/dL Hct 28.6 L (34.0-46.0) % MCH 23.6 L (25.0-35.0) pg MCHC 28.5 L (31.0-37.0) g/dL RDW 18.6 H (11.5-15.5) % Plt Count 675 H (150-450) k/uL Chloride 88 L (98-107) mmol/L Carbon Dioxide 46 H* (22-30) mmol/L BUN 57 H (7-17) mg/dL Creatinine 1.20 H (0.52-1.04) mg/dL Glucose 152 H (74-99) mg/dL POC Glucose (mg/dL) 200 H (75-99) mg/dL Alkaline Phosphatase 145 H (38-126) U/L Microbiology - Last 24 Hours (Table) 06/17/20 10:09 Blood Culture - Preliminary Blood No Growth after 120 hours 06/17/20 09:55 Blood Culture - Preliminary Blood No Growth after 120 hours
--- NOTE | 2020-06-23 11:40 | P.PN ---
Subjective Progress Note Date: 06/23/20 Principal diagnosis: Shortness of breath This is a 65-year-old female patient was admitted to the hospital with increasing shortness of breath and she was diagnosed with pneumonia and COPD exacerbation. She is known to have valvular heart disease was moderate aortic stenosis and moderate mitral stenosis. She was seen this morning. She is feeling better. She denies any chest pain or chest discomfort and shortness of breath has improved. She is hemodynamically stable. She is in process of being discharged home. Objective - Vital Signs Vital signs: Vital Signs Temp 97.9 F 06/23/20 08:19 Pulse 65 06/23/20 08:19 Resp 18 06/23/20 08:19 BP 114/57 06/23/20 08:19 Pulse Ox 97 06/23/20 08:19 Intake & Output 06/22/20 06/23/20 06/23/20 18:59 06:59 18:59 Intake Total 720 180 Output Total 3075 1900 Balance -2355 -1900 180 Weight 109.2 kg Intake: Oral 720 180 Output: Urine 3075 1900 Other: Voiding Method Indwelling Catheter Indwelling Catheter Toilet # Voids 1 - Constitutional General appearance: Present: no acute distress - Respiratory Respiratory: bilateral: diminished - Cardiovascular Rhythm: regular Heart sounds: normal: S1, S2 Abnormal Heart Sounds: Present: systolic murmur - Labs CBC & Chem 7: 06/23/20 06:53 06/23/20 06:53 Labs: Abnormal Lab Results - Last 24 Hours (Table) 06/22/20 06/22/20 06/22/20 Range/Units 11:54 16:47 19:45 WBC (3.8-10.6) k/uL RBC (3.80-5.40) m/uL Hgb (11.4-16.0) gm/dL Hct (34.0-46.0) % MCH (25.0-35.0) pg MCHC (31.0-37.0) g/dL RDW (11.5-15.5) % Plt Count (150-450) k/uL Chloride (98-107) mmol/L Carbon Dioxide (22-30) mmol/L BUN (7-17) mg/dL Creatinine (0.52-1.04) mg/dL Glucose (74-99) mg/dL POC Glucose (mg/dL) 159 H 205 H 349 H (75-99) mg/dL Alkaline Phosphatase (38-126) U/L 06/23/20 06/23/20 06/23/20 Range/Units 06:15 06:53 06:53 WBC 15.0 H (3.8-10.6) k/uL RBC 3.46 L (3.80-5.40) m/uL Hgb 8.2 L (11.4-16.0) gm/dL Hct 28.6 L (34.0-46.0) % MCH 23.6 L (25.0-35.0) pg MCHC 28.5 L (31.0-37.0) g/dL RDW 18.6 H (11.5-15.5) % Plt Count 675 H (150-450) k/uL Chloride 88 L (98-107) mmol/L Carbon Dioxide 46 H* (22-30) mmol/L BUN 57 H (7-17) mg/dL Creatinine 1.20 H (0.52-1.04) mg/dL Glucose 152 H (74-99) mg/dL POC Glucose (mg/dL) 200 H (75-99) mg/dL Alkaline Phosphatase 145 H (38-126) U/L Microbiology - Last 24 Hours (Table) 06/17/20 10:09 Blood Culture - Preliminary Blood No Growth after 120 hours 06/17/20 09:55 Blood Culture - Preliminary Blood No Growth after 120 hours Assessment and Plan Assessment: Assessment #1 shortness of breath which has improved #2 bilateral pneumonia #3 COPD exacerbation #4 valvular heart disease which seems to be stable Plan #1 continue the current medical regimen #2 the patient is going to be discharged home
[2020-06-23 11:42] LABS: Glucose,Whole Blood 131 mg/dL (75-99)
[2020-06-23 11:54] VITALS: BP 97/55; PULSE 63
--- NOTE | 2020-06-23 13:12 | P.DS ---
Providers Date of admission: 06/17/20 09:42 Expected date of discharge: 06/23/20 Attending physician: Yoel Deras Consults: 06/17/20 18:49 Consult Physician Routine Consulting Provider: Ronen Wynne Consult Reason/Comments: COPD and res Faailure Do you want consulting provider notified?: Yes Consult Physician Routine Consulting Provider: Charlotte Nieves Consult Reason/Comments: CHF Do you want consulting provider notified?: Yes 06/17/20 18:50 Consult Physician Routine Consulting Provider: Vivian Samayoa Consult Reason/Comments: GI bleed Do you want consulting provider notified?: Yes Primary care physician: Yoel Deras [place] [facility] Course: Acute respiratory failure, COPD exacerbation, aspiration pneumonia, CHF exacerbation, anemia GI bleed 65-year-old female one of my office patient with multiple medical problem with recurrent visit to [facility] department with GI bleed multiple endoscopy with cauterization done in the last few weeks. Patient was in the hospital over 3 weeks ago for worsening dyspnea and shortness of breath consistent with GI bleed and severe anemia cause worsening respiratory failure the time along with bilateral pneumonia and fluid overload was treated ended up having blood transfusion ended up going to the endoscopy unit with EGD done with Dr. Ivy with more than 2 area cauterized at the time and ended up having capsule endoscopy which analysis did not show any major abnormality at the time. Patient was seen in the office for follow-up hemoglobin was still running in the mid 8-90 g at the time last week was seen and done well. Patient developed to have worsening dyspnea and shortness of breath along with mid abdominal pain and discomfort with sharp discomfort under the xiphoid. Patient was in acute respiratory distress: 911 and ended up being transferred to [facility] where was seen and evaluated her hemoglobin was slightly bit lower at the time. Patient chest x-ray showed significant infiltrate with advance COPD and fluid overload the patient was started on IV diuretics mixup with graft treatment will be seen cardiology and pulmonary Hemoccult was order and patient be seen gastroenterology for possible need for another endoscopy if needed. Almost the possibility for intervention or surgical intervention for harsher section can be the best next step which patient is not a candidate for this point. [place] no exposure to Covid 19 recently and testing is negative. 06/18: Patient was evaluated this morning, noted to be sitting up in bed. She has complaints of shortness of breath, BiPAP in place, she is noted to be tachypenic, her oxygen saturation is 99%, her blood pressure is stable 128/58, heart rate of 70, respiratory rate 28. Hemoglobin did drop from yesterday to 7.1, 1 unit of packed red blood cells were ordered with a dose of IV Lasix. Patient continues to be diuresed with IV Lasix, weight is down 8 pounds since admission. Willl continue to monitor CBC closely. Cardiology, GI, and pulmonary on consult. 06/19: Patient evaluated this morning, noted to be resting in bed comfortably, in no acute distress. She is able to wean down off BiPAP and is currently on 10 L of high flow oxygen and is saturating 92%. Her vital signs remain stable she is afebrile 98.3, heart rate 77, respiratory rate of 20, blood pressure 122/58. Patient reports she is feeling slightly better and is not short of breath. Hemoglobin is stable was 8.2 after she received 1 unit of packed red blood cells yesterday. Her CO2 remains high at 42, blood cultures show no growth to date. Per GI notes no plans for upper endoscopy, patient may needs to be transferred to tertiary center for possible double-balloon enteroscopy, if GI decides on this, agreeable to the plan. We'll continue to monitor CBC closely and transfuse for hemoglobin less than 7. 06/20: Patient is doing well no active bleed at this point patient is not going for an EGD with Dr. Ivy the plan was if she continued to bleed she need to go for possible double-balloon endoscopy at one of the tertiary center like [facility]. Continue current management, patient still require BiPAP through the night, O2 s lightly bit higher than her normal demand. Patient does not require any blood point. 06/21: No need for blood transfusion so far patient will continue PTOT and will require at least subacute rehab if further drop in hemoglobin need to be moved to one of the large center if not would keep patient center for physical therapy and rehab Center and patient to go for an outpatient consultation for double endoscopy down at [facility]. 06/22: Slight drop in hemoglobin patient is more symptomatic been out of breath, long discussion with Dr. Ivy about the possibility of outpatient referral for double-balloon enteroscopy at [facility] and she is agreeable plan will be made from the office, in the meanwhile patient is still symptomatic with significant shortness of breath with the layer discharged tomorrow if further drop in hemoglobin might need to be transfer 24th as an inpatient if hemoglobin stable my be discharged home and follow up as an outpatient patient not able template and walk with try to do subacute rehab as well. 06/23: Patient evaluated today sitting up in the bedside chair, no acute distress. Patient reports her shortness of breath is improving. Hemoglobin has stabilized and is at 8.2, she continues on pantoprazole. Metabolic alkalosis noted, Bumex was decreased to once daily. Patient will be discharged home with a follow-up with [facility] for possible double-balloon enteroscopy, this will be made as an outpatient basis. Discharge diagnoses 1 acute respiratory failure 2 COPD exacerbation 3 aspiration pneumonia with worsening bilateral pneumonia patient be on gram- negative coverage 4 CHF mostly diastolic dysfunction with better ejection fraction 5 arrhythmia 6 type 2 diabetes 7 valvular heart disease 8 gastrointestinal bleed 9 acute kidney injury with chronic kidney disease stage III 10 hypertension 11 hyperlipidemia 12 hypothyroidism 13 anemia The above impression and plan of care have been discussed and directed by signing physician. Tea Rogers nurse practitioner acting as scribe for signing physician. Patient Condition at Discharge: Serious Plan - Discharge Summary Discharge Rx Participant: No New Discharge Prescriptions: New Bumetanide [BUMEX] 4 mg PO DAILY tab predniSONE [Deltasone] 20 mg PO DAILY #30 tab Tiotropium 2.5 Mcg/Puff [Spiriva Respimat 2.5 Mcg] 2 puff INHALATION RT-DAILY #1 inhaler Continue rOPINIRole HCL [Requip] 2 mg PO BID Budesonide-Formot 160-4.5 Mcg [Symbicort 160-4.5 Mcg Inhaler] 2 puff INHALATION RT-BID Potassium Chloride ER [K-Dur 10] 10 meq PO BID Nitroglycerin Sl Tabs [Nitrostat] 0.4 mg SUBLINGUAL Q5M PRN PRN Reason: Chest Pain Montelukast Sodium [Singulair] 10 mg PO HS methocarbamoL [Robaxin] 500 mg PO BID PRN PRN Reason: Muscle Spasm Levothyroxine Sodium 125 mcg PO DAILY sitaGLIPtin [Januvia] 100 mg PO DAILY Isosorbide Mononitrate ER [Imdur] 30 mg PO DAILY Glimepiride [Amaryl] 2 mg PO DAILY Atorvastatin [Lipitor] 40 mg PO DAILY Albuterol Nebulized [Ventolin Nebulized] 2.5 mg INHALATION RT-QID PRN PRN Reason: Shortness Of Breath Albuterol Inhaler [Ventolin Hfa Inhaler] 1 - 2 puff INHALATION RT-QID PRN PRN Reason: Shortness Of Breath acetaZOLAMIDE [Diamox] 250 mg PO DAILY #30 tablet Pregabalin [Lyrica] 200 mg PO BID #6 cap Pantoprazole [Protonix] 40 mg PO BID #0 Sennosides-Docusate Sodium [Senokot-S] 1 tab PO BID PRN PRN Reason: Constipation amLODIPine [Norvasc] 5 mg PO DAILY Spironolactone [Aldactone] 25 mg PO DAILY Metoprolol Tartrate [Lopressor] 100 mg PO BID Acetaminophen-Codeine 300-30mg [Tylenol w/codeine #3] 1 tab PO Q6H PRN PRN Reason: Pain Insulin Aspart [NovoLOG Flexpen] See Protocol SQ ACHS PRN PRN Reason: Blood Sugar - High FLUoxetine HCL [PROzac] 20 mg PO DAILY Insulin Detemir (Levemir) [Levemir] 30 unit SQ BID@0700,2100 syr INSULIN ASPART (NovoLOG) [NovoLOG (formulary)] 15 unit SQ AC-TID vial Discontinued Bumetanide [BUMEX] 4 mg PO BID Discharge Medication List Albuterol Inhaler [Ventolin Hfa Inhaler] 1 - 2 puff INHALATION RT-QID PRN 03/09/20 [History] Albuterol Nebulized [Ventolin Nebulized] 2.5 mg INHALATION RT-QID PRN 03/09/20 [History] Atorvastatin [Lipitor] 40 mg PO DAILY 03/09/20 [History] Budesonide-Formot 160-4.5 Mcg [Symbicort 160-4.5 Mcg Inhaler] 2 puff INHALATION RT-BID 03/09/20 [History] Glimepiride [Amaryl] 2 mg PO DAILY 03/09/20 [History] Isosorbide Mononitrate ER [Imdur] 30 mg PO DAILY 03/09/20 [History] Levothyroxine Sodium 125 mcg PO DAILY 03/09/20 [History] Montelukast Sodium [Singulair] 10 mg PO HS 03/09/20 [History] Nitroglycerin Sl Tabs [Nitrostat] 0.4 mg SUBLINGUAL Q5M PRN 03/09/20 [History] Potassium Chloride ER [K-Dur 10] 10 meq PO BID 03/09/20 [History] methocarbamoL [Robaxin] 500 mg PO BID PRN 03/09/20 [History] rOPINIRole HCL [Requip] 2 mg PO BID 03/09/20 [History] sitaGLIPtin [Januvia] 100 mg PO DAILY 03/09/20 [History] Pantoprazole [Protonix] 40 mg PO BID #0 03/17/20 [Rx] Pregabalin [Lyrica] 200 mg PO BID #6 cap 03/17/20 [Rx] acetaZOLAMIDE [Diamox] 250 mg PO DAILY #30 tablet 03/17/20 [Rx] Sennosides-Docusate Sodium [Senokot-S] 1 tab PO BID PRN 03/27/20 [History] Metoprolol Tartrate [Lopressor] 100 mg PO BID 05/09/20 [History] Spironolactone [Aldactone] 25 mg PO DAILY 05/09/20 [History] amLODIPine [Norvasc] 5 mg PO DAILY 05/09/20 [History] Acetaminophen-Codeine 300-30mg [Tylenol w/codeine #3] 1 tab PO Q6H PRN 05/31/20 [History] FLUoxetine HCL [PROzac] 20 mg PO DAILY 05/31/20 [History] Insulin Aspart [NovoLOG Flexpen] See Protocol SQ ACHS PRN 05/31/20 [History] INSULIN ASPART (NovoLOG) [NovoLOG (formulary)] 15 unit SQ AC-TID vial 06/04/20 [Rx] Insulin Detemir (Levemir) [Levemir] 30 unit SQ BID@0700,2100 syr 06/04/20 [Rx] Bumetanide [BUMEX] 4 mg PO DAILY tab 06/23/20 [Rx] Tiotropium 2.5 Mcg/Puff [Spiriva Respimat 2.5 Mcg] 2 puff INHALATION RT-DAILY #1 inhaler 06/23/20 [Rx] predniSONE [Deltasone] 20 mg PO DAILY #30 tab 06/23/20 [Rx] Follow up Appointment(s)/Referral(s): Yoel Deras MD [Primary Care Provider] - 06/30/20 1:00 pm [facility], [NON-STAFF] - Patient Instructions/Handouts: Heart Failure (DC), COPD (Chronic Obstructive Pulmonary Disease) (DC), Anemia (DC) Discharge Disposition: HOME SELF-CARE
[2020-06-24] MEDS ORDERED: BUMETANIDE 1 MG TAB PO SCH (09:00)
== END 2020-06-23 14:28 | disposition home health service (06) | DRG 177 ==
LOC: EC 06:39 → 3SCARD 09:42
PROVIDERS: ADMIT Internal Medicine Geriatric Medicine; ATTEND Internal Medicine Geriatric Medicine
PROC: 5A09557 Assistance with Respiratory Ventilation, Greater than 96 Consecutive Hours, Continuous Positive Airway Pressure (ICD-10-PCS; principal; 2020-06-17)
PROC: 30233N1 Transfusion of Nonautologous Red Blood Cells into Peripheral Vein, Percutaneous Approach (ICD-10-PCS; 2020-06-18)
DX: J69.0 Pneumonitis due to inhalation of food and vomit (principal); J96.21 Acute and chronic respiratory failure with hypoxia; I50.33 Acute on chronic diastolic (congestive) heart failure; N17.9 Acute kidney failure, unspecified; I13.0 Hypertensive heart and chronic kidney disease with heart failure and stage 1 through stage 4 chronic kidney disease, or unspecified chronic kidney disease; E87.3 Alkalosis; D62 Acute posthemorrhagic anemia; J44.1 Chronic obstructive pulmonary disease with (acute) exacerbation; Z68.42 Body mass index [BMI] 45.0-49.9, adult; I27.20 Pulmonary hypertension, unspecified; E11.22 Type 2 diabetes mellitus with diabetic chronic kidney disease; E11.40 Type 2 diabetes mellitus with diabetic neuropathy, unspecified; E66.01 Morbid (severe) obesity due to excess calories; I48.91 Unspecified atrial fibrillation; Z79.4 Long term (current) use of insulin; Z20.828 Contact with and (suspected) exposure to other viral communicable diseases; N18.30 Chronic kidney disease, stage 3 unspecified; Z99.81 Dependence on supplemental oxygen; G47.33 Obstructive sleep apnea (adult) (pediatric); K29.70 Gastritis, unspecified, without bleeding; K31.819 Angiodysplasia of stomach and duodenum without bleeding; I08.3 Combined rheumatic disorders of mitral, aortic and tricuspid valves; E03.9 Hypothyroidism, unspecified; F32.9 Major depressive disorder, single episode, unspecified; G89.29 Other chronic pain; I87.8 Other specified disorders of veins; E78.5 Hyperlipidemia, unspecified; I25.2 Old myocardial infarction; R53.81 Other malaise; Z79.51 Long term (current) use of inhaled steroids; Z79.890 Hormone replacement therapy; Z79.899 Other long term (current) drug therapy; Z86.19 Personal history of other infectious and parasitic diseases; Z87.891 Personal history of nicotine dependence; Z98.891 History of uterine scar from previous surgery; Z90.49 Acquired absence of other specified parts of digestive tract; Z87.19 Personal history of other diseases of the digestive system; Z87.42 Personal history of other diseases of the female genital tract; Z90.710 Acquired absence of both cervix and uterus; Z98.42 Cataract extraction status, left eye; Z98.41 Cataract extraction status, right eye; Z96.1 Presence of intraocular lens; Z98.890 Other specified postprocedural states; Z88.8 Allergy status to other drugs, medicaments and biological substances; Z84.1 Family history of disorders of kidney and ureter
CPT/HCPCS: 36415; 71045; 71046; 74177; 80048; 80053; 82728; 82746; 83540; 83550; 83605; 83735; 83880; 84484; 85025; 85027; 85610; 85730; 86850; 86900; 86901; 86920; 87040; 87635; 93005; 93306; 94640; 94660; 94760; 96365; 96366; 96375; 99291

== ENCOUNTER 2020-08-02 00:11 | Inpatient (IN) | payer MEDICARE, OTHER ==
[2020-08-02] MEDS ORDERED: ONDANSETRON 4 MG/2 ML VIAL IVP STA (00:43)
[2020-08-02] MEDS ORDERED: PANTOPRAZOLE 40 MG/10 ML VIAL IVP STA (00:43)
[2020-08-02] MEDS ORDERED: HYDROmorphone 0.5 MG/0.5 ML SYRINGE IVP STA (00:43)
--- NOTE | 2020-08-02 00:49 | ED ---
General Adult HPI - General Chief complaint: GI Bleed Stated complaint: ALBINO, Low hemoglobin Time Seen by Provider: 08/02/20 00:21 Source: patient Mode of arrival: wheelchair - History of Present Illness Initial comments: 65 year-old female patient with past medical history significant for heart failure, COPD, diabetes, GI bleed presents to the emergency department today for evaluation of increased shortness of breath. Patient states that she has a frequent upper GI bleed. She recently was admitted to [facility] had a procedure to cauterize the bleeds. States that she recently has received blood transfusions in relation to this. States that tonight she started to get more short of breath which usually occurs when her hemoglobin has decreased. Last check was 8.6 at her doctor's office last week. She is reporting black stools and upper abdominal pain. She states this is consistent with her history. She denies any chest pain. Denies any dizziness or weakness. She does wear 2 L oxygen at home. Patient denies any recent rash, fever, chills, cough, nausea, vomiting, back pain, numbness, tingling, dizziness, weakness, hematuria, dysuria, urinary urgency, urinary frequency, headache, visual changes, or any other complaints. - Related Data Home Medications Medication Instructions Recorded Confirmed Albuterol Inhaler [Ventolin Hfa 1 - 2 puff INHALATION RT-QID PRN 03/09/20 06/30/20 Inhaler] Albuterol Nebulized [Ventolin 2.5 mg INHALATION RT-QID PRN 03/09/20 06/30/20 Nebulized] Atorvastatin [Lipitor] 40 mg PO DAILY 03/09/20 06/30/20 Budesonide-Formot 160-4.5 Mcg 2 puff INHALATION RT-BID 03/09/20 06/30/20 [Symbicort 160-4.5 Mcg Inhaler] Glimepiride [Amaryl] 2 mg PO DAILY 03/09/20 06/30/20 Isosorbide Mononitrate ER [Imdur] 30 mg PO DAILY 03/09/20 06/30/20 Levothyroxine Sodium 125 mcg PO DAILY 03/09/20 06/30/20 Montelukast Sodium [Singulair] 10 mg PO HS 03/09/20 06/30/20 Nitroglycerin Sl Tabs [Nitrostat] 0.4 mg SUBLINGUAL Q5M PRN 03/09/20 06/30/20 Potassium Chloride ER [K-Dur 10] 10 meq PO BID 03/09/20 06/30/20 methocarbamoL [Robaxin] 500 mg PO BID PRN 03/09/20 06/30/20 rOPINIRole HCL [Requip] 2 mg PO BID 03/09/20 06/30/20 sitaGLIPtin [Januvia] 100 mg PO DAILY 03/09/20 06/30/20 Sennosides-Docusate Sodium 1 tab PO BID PRN 03/27/20 06/30/20 [Senokot-S] Metoprolol Tartrate [Lopressor] 100 mg PO BID 05/09/20 06/30/20 Spironolactone [Aldactone] 25 mg PO DAILY 05/09/20 06/30/20 amLODIPine [Norvasc] 5 mg PO DAILY 05/09/20 06/30/20 Acetaminophen-Codeine 300-30mg 1 tab PO Q6H PRN 05/31/20 06/30/20 [Tylenol w/codeine #3] FLUoxetine HCL [PROzac] 20 mg PO DAILY 05/31/20 06/30/20 Insulin Aspart [NovoLOG Flexpen] See Protocol SQ ACHS 05/31/20 06/30/20 Insulin Aspart [NovoLOG Flexpen] 15 units SQ AC-TID 06/30/20 06/30/20 Insulin Glargine,Hum.rec.anlog 30 units SQ BID 06/30/20 06/30/20 [Oliva Sandoval] Previous Rx's Medication Instructions Recorded Pantoprazole [Protonix] 40 mg PO BID #0 03/17/20 Pregabalin [Lyrica] 200 mg PO BID #6 cap 03/17/20 acetaZOLAMIDE [Diamox] 250 mg PO DAILY #30 tablet 03/17/20 Bumetanide [BUMEX] 4 mg PO DAILY tab 06/23/20 Tiotropium 2.5 Mcg/Puff [Spiriva 2 puff INHALATION RT-DAILY #1 06/23/20 Respimat 2.5 Mcg] inhaler predniSONE [Deltasone] 20 mg PO DAILY #30 tab 06/23/20 Allergies Allergy/AdvReac Type Severity Reaction Status Date / Time cisatracurium [From Nimbex] Allergy Rash/Hives Verified 08/02/20 00:23 Review of Systems ROS Statement: Those systems with pertinent positive or pertinent negative responses have been documented in the HPI. ROS Other: All systems not noted in ROS Statement are negative. Past Medical History Past Medical History: Heart Failure, COPD, Diabetes Mellitus, GI Bleed, Pneumonia, Respiratory Disorder Additional Past Medical History / Comment(s): heart murmur, neuropathy, scope done Last Myocardial Infarction Date:: 2018 History of Any Multi-Drug Resistant Organisms: None Reported Date of last positivie culture/infection: 04/2019 MDRO Source:: URINE Past Surgical History: Section, Cholecystectomy, Heart Catheterization, Hysterectomy, Orthopedic Surgery Additional Past Surgical History / Comment(s): Gi cauterization 02/22/2020; heart cath 12/26/2019; cataracts removal, lens placement. FREQUENT BLOOD TRANFUSIONS Past Anesthesia/Blood Transfusion Reactions: Previous Problems w/ Anesthesia Additional Past Anesthesia/Blood Transfusion Reaction / Comment(s): ALLERGY TO CISATRACURIUM- FACE TURNED RED/SWOLLEN Past Psychological History: No Psychological Hx Reported Smoking Status: Never smoker Past Alcohol Use History: None Reported Past Drug Use History: None Reported - Past Family History Mother Family Medical History: Renal Disease Additional Family Medical History / Comment(s): Mother was on Hemodilaysis General Exam General appearance: alert, in no apparent distress, other Eye exam: Present: normal appearance, PERRL, EOMI. Absent: scleral icterus, conjunctival injection, periorbital swelling ENT exam: Present: normal exam, normal oropharynx, mucous membranes moist Respiratory exam: Present: rales (bilateral posterior), accessory muscle use (abdominal), other (tachypnea). Absent: normal lung sounds bilaterally, respiratory distress, wheezes, rhonchi, stridor Cardiovascular Exam: Present: regular rate, normal rhythm, normal heart sounds. Absent: systolic murmur, diastolic murmur, rubs, gallop, clicks GI/Abdominal exam: Present: soft, tenderness (midepigastric), normal bowel sounds. Absent: distended, guarding, rebound, rigid Neurological exam: Present: alert, oriented X3, CN II-XII intact Psychiatric exam: Present: normal affect, normal mood Skin exam: Present: warm, dry, intact, pallor. Absent: rash Course Vital Signs 08/02/20 08/02/20 08/02/20 00:19 00:44 01:11 Temperature 97.9 F Pulse Rate 95 82 Respiratory 22 20 16 Rate Blood Pressure 130/70 135/44 O2 Sat by Pulse 98 94 L Oximetry EKG Findings - EKG Comments: EKG Findings:: EKG obtained at 0036 shows normal sinus rhythm with ventricular of 82, NJ interval 176, QRS duration 82, QT 390, QTC 455. Medical Decision Making - Medical Decision Making 65 year-old female patient presents to the emergency department today for evaluation of dyspnea and GI bleed. Physical examination did reveal crackles in the posterior lung phelps throughout. Patient reports black stool for the last week with a known history of chronic GI bleed. Labs reviewed and did reveal white blood cell count at 11.6, hemoglobin is 6.8, hematocrit 23.1. CMP shows BUN 29, glucose 181, troponin 0.069. Patient will be given 1 unit of packed red blood cells with close eye on her respiratory status. She'll be admitted to the hospital for further evaluation. Dr. Samayoa is consulted. Dr. Altamirano is accepting. Case discussed with my attending Dr. Allen. - Lab Data Result diagrams: 08/02/20 00:50 08/02/20 00:50 Lab Results 08/02/20 08/02/20 08/02/20 Range/Units 00:50 00:50 00:50 WBC 11.6 H (3.8-10.6) k/uL RBC 2.78 L (3.80-5.40) m/uL Hgb 6.8 L* D (11.4-16.0) gm/dL Hct 23.1 L (34.0-46.0) % MCV 83.2 (80.0-100.0) fL MCH 24.3 L (25.0-35.0) pg MCHC 29.3 L (31.0-37.0) g/dL RDW 19.1 H (11.5-15.5) % Plt Count 277 (150-450) k/uL MPV 7.1 Neutrophils % (Manual) 88 % Lymphocytes % (Manual) 4 % Monocytes % (Manual) 6 % Eosinophils % (Manual) 2 % Neutrophils # (Manual) 10.21 H (1.3-7.7) k/uL Lymphocytes # (Manual) 0.46 L (1.0-4.8) k/uL Monocytes # (Manual) 0.70 (0-1.0) k/uL Eosinophils # (Manual) 0.23 (0-0.7) k/uL Nucleated RBCs 0 (0-0) /100 WBC Manual Slide Review Performed Polychromasia Present Hypochromasia Marked Poikilocytosis Marked Anisocytosis Slight Anisocytosis (manual) Present Microcytosis Slight Stomatocytes Present APTT (22.0-30.0) sec Sodium 141 (137-145) mmol/L Potassium 4.1 (3.5-5.1) mmol/L Chloride 99 (98-107) mmol/L Carbon Dioxide 37 H (22-30) mmol/L Anion Gap 5 mmol/L BUN 29 H (7-17) mg/dL Creatinine 0.86 (0.52-1.04) mg/dL Est GFR (CKD-EPI)AfAm 82 (>60 ml/min/1.73 sqM) Est GFR (CKD-EPI)NonAf 71 (>60 ml/min/1.73 sqM) Glucose 181 H (74-99) mg/dL Calcium 8.3 L (8.4-10.2) mg/dL Total Bilirubin 0.4 (0.2-1.3) mg/dL AST 25 (14-36) U/L ALT 15 (4-34) U/L Alkaline Phosphatase 144 H (38-126) U/L Troponin I 0.069 H* (0.000-0.034) ng/mL Total Protein 6.4 (6.3-8.2) g/dL Albumin 3.4 L (3.5-5.0) g/dL Blood Type Blood Type Recheck Bld Type Recheck Status Antibody Screen Spec Expiration Date 08/02/20 08/02/20 Range/Units 00:50 00:50 WBC (3.8-10.6) k/uL RBC (3.80-5.40) m/uL Hgb (11.4-16.0) gm/dL Hct (34.0-46.0) % MCV (80.0-100.0) fL MCH (25.0-35.0) pg MCHC (31.0-37.0) g/dL RDW (11.5-15.5) % Plt Count (150-450) k/uL MPV Neutrophils % (Manual) % Lymphocytes % (Manual) % Monocytes % (Manual) % Eosinophils % (Manual) % Neutrophils # (Manual) (1.3-7.7) k/uL Lymphocytes # (Manual) (1.0-4.8) k/uL Monocytes # (Manual) (0-1.0) k/uL Eosinophils # (Manual) (0-0.7) k/uL Nucleated RBCs (0-0) /100 WBC Manual Slide Review Polychromasia Hypochromasia Poikilocytosis Anisocytosis Anisocytosis (manual) Microcytosis Stomatocytes APTT 22.2 (22.0-30.0) sec Sodium (137-145) mmol/L Potassium (3.5-5.1) mmol/L Chloride (98-107) mmol/L Carbon Dioxide (22-30) mmol/L Anion Gap mmol/L BUN (7-17) mg/dL Creatinine (0.52-1.04) mg/dL Est GFR (CKD-EPI)AfAm (>60 ml/min/1.73 sqM) Est GFR (CKD-EPI)NonAf (>60 ml/min/1.73 sqM) Glucose (74-99) mg/dL Calcium (8.4-10.2) mg/dL Total Bilirubin (0.2-1.3) mg/dL AST (14-36) U/L ALT (4-34) U/L Alkaline Phosphatase (38-126) U/L Troponin I (0.000-0.034) ng/mL Total Protein (6.3-8.2) g/dL Albumin (3.5-5.0) g/dL Blood Type A Positive Blood Type Recheck A Pos Bld Type Recheck Status No Antibody Screen NEGATIVE Spec Expiration Date 08/05/20202349 - Radiology Data Radiology results: report reviewed, image reviewed 2 views of the chest are obtained. Report is reviewed in its entirety. Impression by Dr. Restrepo shows diffuse airspace opacities which may or present pulmonary vascular congestion versus infectious process Disposition Clinical Impression: Anemia, GI bleed Disposition: ADMITTED IP TO THIS [facility] Condition: Serious Referrals: Yoel Deras MD [Primary Care Provider] - 1-2 days Decision to Admit Reason: Admit from EC Decision Date: 08/02/20 Decision Time: 02:38
[2020-08-02 01:10] LABS: Anisocytosis Slight; HCT 23.1 % (34.0-46.0); Hypochromasia Marked; MCH 24.3 pg (25.0-35.0); MCHC 29.3 g/dL (31.0-37.0); MCV 83.2 fL (80.0-100.0); Mean Platelet Volume 7.1; Microcytosis Slight; Platelet Count 277 k/uL (150-450); Poikilocytosis Marked; RBC 2.78 m/uL (3.80-5.40); RDW 19.1 % (11.5-15.5); WBC 11.6 k/uL (3.8-10.6)
[2020-08-02 01:25] LABS: Albumin 3.4 g/dL (3.5-5.0); Calcium 8.3 mg/dL (8.4-10.2); HGB 6.8 gm/dL (11.4-16.0); Potassium 4.1 mmol/L (3.5-5.1); Total Bilirubin 0.4 mg/dL (0.2-1.3); Total Protein 6.4 g/dL (6.3-8.2)
[2020-08-02 01:48] LABS: Eosinophils # (M) 0.23 k/uL (0-0.7); Lymphocytes # (M) 0.46 k/uL (1.0-4.8); Neutrophils # (M) 10.21 k/uL (1.3-7.7); Neutrophils % (M) 88 %; Nucleated Red Blood Cells 0 /100 WBC (0-0); Total Cells Counted 100
[2020-08-02 01:49] LABS: Anisocytosis (M) Present; Polychromasia Present; Stomatocytes Present
--- NOTE | 2020-08-02 02:15 | XR ---
EXAM: XR Chest, 2 Views CLINICAL HISTORY: ITS.REASON XR Reason: Dyspnea TECHNIQUE: Frontal and lateral views of the chest. COMPARISON: Chest x-ray dated 06/17/2020 FINDINGS: Lungs: Diffuse airspace opacities which may represent pulmonary vascular congestion versus an infectious process. Pleural space: Unremarkable. Heart: Mild prominence of the cardiomediastinal silhouette. Mediastinum: See above. Bones/joints: Unremarkable. IMPRESSION: Diffuse airspace opacities which may represent pulmonary vascular congestion versus an infectious process.
[2020-08-02] MEDS ORDERED: NALOXONE 0.4 MG/ML 1 ML VIAL IV PRN (02:33)
[2020-08-02 05:58] LABS: Glucose,Whole Blood 145 mg/dL (75-99)
[2020-08-02] MEDS ORDERED: FUROSEMIDE 10 MG/ML 4 ML VIAL IV STA (07:37)
[2020-08-02] MEDS: FUROSEMIDE 10 MG/ML 4 ML VIAL IV SCH (08:13)
[2020-08-02] MEDS ORDERED: SENNOSIDES-DOCUSATE SODIUM 1 EACH TAB PO PRN (08:19)
[2020-08-02 08:20] LABS: Anisocytosis Slight; HCT 26.4 % (34.0-46.0); HGB 7.6 gm/dL (11.4-16.0); Hypochromasia Marked; MCH 24.8 pg (25.0-35.0); MCHC 28.9 g/dL (31.0-37.0); MCV 85.8 fL (80.0-100.0); Mean Platelet Volume 7.4; Poikilocytosis Marked; RBC 3.07 m/uL (3.80-5.40); RDW 17.9 % (11.5-15.5); WBC 12.9 k/uL (3.8-10.6)
[2020-08-02] MEDS: METOPROLOL TARTRATE 50 MG TAB PO SCH ×2 (08:45→23:46)
[2020-08-02] MEDS: acetaZOLAMIDE 250 MG TAB PO SCH (08:45)
[2020-08-02] MEDS: POTASSIUM CHLORIDE ER 10 MEQ TAB.ER.PRT PO SCH ×2 (08:45→23:46)
[2020-08-02] MEDS: PREGABALIN 100 MG CAP PO SCH ×2 (08:45→23:46)
[2020-08-02] MEDS: FLUoxetine HCL 20 MG CAP PO SCH (08:45)
[2020-08-02] MEDS: ISOSORBIDE MONONITRATE ER 30 MG TAB.ER.24H PO SCH (08:45)
[2020-08-02] MEDS: SPIRONOLACTONE 25 MG TAB PO SCH (08:45)
[2020-08-02] MEDS: ATORVASTATIN 40 MG TAB PO SCH (08:45)
[2020-08-02] MEDS: INSULIN DETEMIR (LEVEMIR) 100 UNIT/ML SYR SQ SCH ×2 (08:46→23:45)
[2020-08-02] MEDS: PANTOPRAZOLE 40 MG/10 ML VIAL IV SCH ×2 (08:46→21:20)
[2020-08-02 08:49] LABS: Band Neutrophils % 1 %; Basophils # (M) 0.13 k/uL (0-0.2); Eosinophils # (M) 0.13 k/uL (0-0.7); Lymphocytes # (M) 2.06 k/uL (1.0-4.8); Monocytes # (M) 1.29 k/uL (0-1.0); Neutrophils % (M) 71 %; Nucleated Red Blood Cells 0 /100 WBC (0-0); Platelet Count 304 k/uL (150-450); Total Cells Counted 100
[2020-08-02 08:50] LABS: Polychromasia Present; Stomatocytes Present
--- NOTE | 2020-08-02 10:50 | P.HPIM ---
History of Present Illness H&P Date: 08/02/20 History of present illness\ This is a pleasant 65-year-old female with past medical history significant for heart failure, COPD, diabetes, GI bleed with anemia presented to the emergency department yesterday with for evaluation of increased shortness of breath. Patient has frequent upper GI bleeds her last hospitalization she was transferred to [facility] where it was found to have angiodysplasia. Patient states that she had cauterization of the bleeds at [facility]. She also received multiple blood transfusions. Yesterday patient had increased shortness of breath that she states usually occurs when her hemoglobin decreases. Her last hemoglobin in her doctor's office was 8.6 last week. She is reporting black tarry stools and upper gastric pain. Patient denies chest pain. Patient reports dizziness and weakness. She does wear O2 at 2 L at home. Patient is found sitting up in bed with a nonrebreather in place. She is given 40 of Lasix due to increased shortness of breath. Awaiting GI consult and possible transfer to [facility]. Patient states that her bleeding did not stop after her last cauterization. Blood pressure 118/56, pulse rate 82, respirations 24, 100% on a nonrebreather. WC 12.9, hemoglobin 7.6, potassium 4.1, B UN 29, creatinine 0.86 Review Of Systems: Constitutional: No fever, no chills, no night sweats. No weight change. Reports weakness and fatigue no lethargy. No daytime sleepiness. EENT: No headache. No blurred vision or double vision, no loss of vision. No loss of Hearing, no ringing in the ears, no dizziness. No nasal drainage or congestion. No epistaxis. No sore throat. Lungs: Reports shortness of breath, reports cough, no sputum production. No wheezing. Cardiovascular: No chest pain, no lower extremity edema. No palpitations. No paroxysmal nocturnal dyspnea. No orthopnea. No lightheadedness or dizziness. No syncopal episodes. Abdominal: reports epigastic paint. No nausea, vomiting. no diarrhea. No constipation. No bloody reports tarry stools. no loss of appetite. Genitourinary: No dysuria, increased frequency, urgency. No urinary retention. Musculoskeletal: No myalgias. No muscle weakness, no gait dysfunction, no frequent falls. No back pain. No neck pain. Integumentary: No wounds, no lesions. No rash or pruritus. No unusual bruising. No change in hair or nails. Neurologic: No aphasia. No facial droop. No change in mentation. No head injury. No headache. No paralysis. No paresthesia. Psychiatric: No depression. No anxiety. No mood swings. Endocrine: No abnormal blood sugars. No weight change. No excessive sweating or thirst. Social history: Patient has never been a smoker, no history of EtOH or recreational drug use. Family history: Patient is and lives with her . Her mother is alive and on hemodialysis. Physical examination General Appearance: Alert, cooperative, no distress, appears stated age. Neck HEENT: Supple, no lymphadenopathy, no thyroid enlargement, no carotid bruits. Lungs: Crackles throughout, no rhonchi, no deformity. Chest Wall: Chest wall normal expansion with deep inspiration no tenderness and no deformity was found on exam, no costochondral pain or discomfort. Heart: Regular rate and rhythm, S1, S2 normal, no murmur, rub or gallop. Back: Symmetric, no curvature, ROM normal, no CVA tenderness. Abdomen: epigastric tenderness Soft,, no rebound or rigidity, no hepatosplenomegaly. Extremities: Extremities normal, atraumatic, no cyanosis or edema. Pulses: 2+ and symmetric. Skin: Bilateral lower extremity vascular dermatitis Skin color, texture, tugor normal, no rashes or lesions. Neurologic: Alert oriented x3 cranial nerves II through XII intact, no motor deficit, no abnormal balance or gait Assessment and plan 1. Acute hypoxic respiratory distress secondary to anemia and CHF consult pulmonology, monitor hemoglobin, continue with DuoNeb, continue with oxygen support 2. Acute blood loss secondary to angiodysplasia, anemia. Consult GI, continue to monitor hemoglobin, continue Protonix 40 mg IV twice a day, Zofran 4 mg IV push every 8 hours 3. Chronic anemia, noted above 4. Exacerbation of congestive heart failure. Consult cardiology, Lasix 40 mg IV push every 12 hours, Therese door 10 mEq by mouth twice a day 5. COPD, consult pulmonology, continue DuoNeb, oxygen support 6. Diabetes mellitus Levemir 15 units twice a day, NovoLog sliding scale continuous Accu-Cheks before meals at bedtime 7. Stage III chronic kidney disease continuous hydration and fluid restrictions 8. Hypertension continue amlodipine, metoprolol, and spironolactone 9. Hyperlipidemia atorvastatin 40 mg daily 10. Hypothyroidism continue levothyroxine 125 g daily 13. Obstructive sleep apnea has CPAP at home 14. Chronic pain management. Remain on hydrocodone and Lyrica 16. History of depression continue Prozac 17. Vascular dermatitis , apply Silvadene cream and wrap with Neftali wrap daily. No concern for infection 18. Restless leg syndrome: Requip 2 mg twice a day 19. GI prophylaxis continuous Protonix 20.DVT prophylaxis A minimum of 2 nights day Discharge plan: Possible transfer to tertiary facility Impression and plan of care have been directed as dictated by the signing physician. Brandy Villatoro nurse practitioner acting as scribe for signing physician. Past Medical History Past Medical History: Heart Failure, COPD, Diabetes Mellitus, GI Bleed, Pneumonia, Respiratory Disorder Additional Past Medical History / Comment(s): heart murmur, neuropathy, scope done Last Myocardial Infarction Date:: 2018 History of Any Multi-Drug Resistant Organisms: None Reported Date of last positivie culture/infection: 04/2019 MDRO Source:: URINE Past Surgical History: Section, Cholecystectomy, Heart Catheterization, Hysterectomy, Orthopedic Surgery Additional Past Surgical History / Comment(s): Gi cauterization 02/22/2020; heart cath 12/26/2019; cataracts removal, lens placement. FREQUENT BLOOD TRANFUSIONS Past Anesthesia/Blood Transfusion Reactions: Previous Problems w/ Anesthesia Additional Past Anesthesia/Blood Transfusion Reaction / Comment(s): ALLERGY TO CISATRACURIUM- FACE TURNED RED/SWOLLEN Past Psychological History: No Psychological Hx Reported Smoking Status: Never smoker Past Alcohol Use History: None Reported Past Drug Use History: None Reported - Past Family History Mother Family Medical History: Renal Disease Additional Family Medical History / Comment(s): Mother was on Hemodilaysis Medications and Allergies Home Medications Medication Instructions Recorded Confirmed Type Albuterol Inhaler [Ventolin Hfa 1 - 2 puff INHALATION RT-QID PRN 03/09/20 08/02/20 History Inhaler] Albuterol Nebulized [Ventolin 2.5 mg INHALATION RT-QID PRN 03/09/20 08/02/20 History Nebulized] Atorvastatin [Lipitor] 40 mg PO DAILY 03/09/20 08/02/20 History Budesonide-Formot 160-4.5 Mcg 2 puff INHALATION RT-BID 03/09/20 08/02/20 History [Symbicort 160-4.5 Mcg Inhaler] Glimepiride [Amaryl] 2 mg PO DAILY 03/09/20 08/02/20 History Isosorbide Mononitrate ER [Imdur] 30 mg PO DAILY 03/09/20 08/02/20 History Levothyroxine Sodium 125 mcg PO DAILY 03/09/20 08/02/20 History Montelukast Sodium [Singulair] 10 mg PO HS 03/09/20 08/02/20 History Nitroglycerin Sl Tabs [Nitrostat] 0.4 mg SUBLINGUAL Q5M PRN 03/09/20 08/02/20 History Potassium Chloride ER [K-Dur 10] 10 meq PO BID 03/09/20 08/02/20 History rOPINIRole HCL [Requip] 2 mg PO BID 03/09/20 08/02/20 History sitaGLIPtin [Januvia] 100 mg PO DAILY 03/09/20 08/02/20 History Pantoprazole [Protonix] 40 mg PO BID #0 03/17/20 08/02/20 Rx Pregabalin [Lyrica] 200 mg PO BID #6 cap 03/17/20 08/02/20 Rx Sennosides-Docusate Sodium 1 tab PO BID PRN 03/27/20 08/02/20 History [Senokot-S] Metoprolol Tartrate [Lopressor] 100 mg PO BID 05/09/20 08/02/20 History Spironolactone [Aldactone] 25 mg PO DAILY 05/09/20 08/02/20 History amLODIPine [Norvasc] 5 mg PO DAILY 05/09/20 08/02/20 History FLUoxetine HCL [PROzac] 20 mg PO DAILY 05/31/20 08/02/20 History Insulin Aspart [NovoLOG Flexpen] See Protocol SQ ACHS 05/31/20 08/02/20 History Tiotropium 2.5 Mcg/Puff [Spiriva 2 puff INHALATION RT-DAILY #1 06/23/20 08/02/20 Rx Respimat 2.5 Mcg] inhaler Insulin Aspart [NovoLOG Flexpen] 15 units SQ AC-TID 06/30/20 08/02/20 History Insulin Glargine,Hum.rec.anlog 30 units SQ BID 06/30/20 08/02/20 History [Oliva Sandoval] Bumetanide [Bumex] 2 mg PO BID 08/02/20 08/02/20 History Allergies Allergy/AdvReac Type Severity Reaction Status Date / Time cisatracurium [From Nimbex] Allergy Rash/Hives Verified 08/02/20 08:39 Physical Exam Vitals: Vital Signs Temp Pulse Pulse Resp BP BP Pulse Ox 08/02/20 09:09 20 96 08/02/20 07:35 24 100 08/02/20 07:30 82 24 118/56 81 L 08/02/20 06:49 97.7 F 78 18 114/68 94 L 08/02/20 05:10 97.8 F 68 18 101/60 95 08/02/20 04:40 97.7 F 87 18 103/49 08/02/20 04:31 97.4 F L 73 16 121/67 96 08/02/20 04:30 97.4 F L 72 16 105/66 95 08/02/20 03:24 97.8 F 89 24 127/76 97 08/02/20 01:11 82 16 135/44 94 L 08/02/20 00:44 20 08/02/20 00:19 97.9 F 95 22 130/70 98 Intake and Output 08/01/20 08/02/20 08/02/20 22:59 06:59 14:59 Intake Total 310 Output Total 600 Balance 310 -600 Intake: Oral 0 Blood Product 310 Rc As-1 Unit 310 [id number] Output: Urine 600 Other: # Voids 0 # Bowel Movements 1 Weight 113.398 kg 120.1 kg Results CBC & Chem 7: 08/02/20 07:15 08/02/20 00:50 Labs: Abnormal Lab Results - Last 24 Hours (Table) 08/02/20 08/02/20 08/02/20 Range/Units 00:50 00:50 00:50 WBC 11.6 H (3.8-10.6) k/uL RBC 2.78 L (3.80-5.40) m/uL Hgb 6.8 L* D (11.4-16.0) gm/dL Hct 23.1 L (34.0-46.0) % MCH 24.3 L (25.0-35.0) pg MCHC 29.3 L (31.0-37.0) g/dL RDW 19.1 H (11.5-15.5) % Neutrophils # (Manual) 10.21 H (1.3-7.7) k/uL Lymphocytes # (Manual) 0.46 L (1.0-4.8) k/uL Monocytes # (Manual) (0-1.0) k/uL Carbon Dioxide 37 H (22-30) mmol/L BUN 29 H (7-17) mg/dL Glucose 181 H (74-99) mg/dL POC Glucose (mg/dL) (75-99) mg/dL Calcium 8.3 L (8.4-10.2) mg/dL Alkaline Phosphatase 144 H (38-126) U/L Troponin I 0.069 H* (0.000-0.034) ng/mL Albumin 3.4 L (3.5-5.0) g/dL Crossmatch 08/02/20 08/02/20 08/02/20 Range/Units 00:50 05:56 07:15 WBC 12.9 H (3.8-10.6) k/uL RBC 3.07 L (3.80-5.40) m/uL Hgb 7.6 L (11.4-16.0) gm/dL Hct 26.4 L (34.0-46.0) % MCH 24.8 L (25.0-35.0) pg MCHC 28.9 L (31.0-37.0) g/dL RDW 17.9 H (11.5-15.5) % Neutrophils # (Manual) 9.20 H (1.3-7.7) k/uL Lymphocytes # (Manual) (1.0-4.8) k/uL Monocytes # (Manual) 1.29 H (0-1.0) k/uL Carbon Dioxide (22-30) mmol/L BUN (7-17) mg/dL Glucose (74-99) mg/dL POC Glucose (mg/dL) 145 H (75-99) mg/dL Calcium (8.4-10.2) mg/dL Alkaline Phosphatase (38-126) U/L Troponin I (0.000-0.034) ng/mL Albumin (3.5-5.0) g/dL Crossmatch See Detail Thrombosis Risk Factor Assmnt - Choose All That Apply Each Factor Represents 1 point: Obesity (BMI >25), Swollen legs (current) Each Risk Factor Represents 2 Points: Age 61-74 years Thrombosis Risk Factor Assessment Total Risk Factor Score: 4 Thrombosis Risk Factor Assessment Level: Moderate Risk
[2020-08-02 11:27] LABS: Anisocytosis Slight; Basophils # (A) 0.1 k/uL (0-0.2); Basophils % (A) 1 %; Eosinophils # (A) 0.3 k/uL (0-0.7); Eosinophils % (A) 2 %; HCT 26.2 % (34.0-46.0); HGB 7.7 gm/dL (11.4-16.0); Hypochromasia Marked; Lymphocytes # (A) 1.2 k/uL (1.0-4.8); Lymphocytes % (A) 9 %; MCHC 29.4 g/dL (31.0-37.0); MCV 85.1 fL (80.0-100.0); Mean Platelet Volume 7.3; Monocytes # (A) 1.2 k/uL (0-1.0); Monocytes % (A) 10 %; Neutrophils # (A) 9.6 k/uL (1.3-7.7); Neutrophils % (A) 77 %; Platelet Count 266 k/uL (150-450); Poikilocytosis Marked; RBC 3.08 m/uL (3.80-5.40); RDW 18.3 % (11.5-15.5); WBC 12.6 k/uL (3.8-10.6)
[2020-08-02 11:36] LABS: Glucose,Whole Blood 201 mg/dL (75-99)
[2020-08-02] MEDS: IPRATROPIUM-ALBUTEROL 3 ML NEB INHALATION SCH ×3 (11:42→19:34)
[2020-08-02 12:10] LABS: Prothrombin Time 10.3 sec (9.0-12.0)
[2020-08-02] MEDS: amLODIPine 5 MG TAB PO SCH (12:31)
[2020-08-02] MEDS: LEVOTHYROXINE 125 MCG TAB PO SCH (12:31)
[2020-08-02] MEDS: INSULIN ASPART (NovoLOG) 100 UNIT/ML VIAL SQ SCH ×3 (12:31→23:45)
--- NOTE | 2020-08-02 13:06 | P.CNPUL ---
History of Present Illness Consult date: 08/02/20 Requesting physician: Jose C Altamirano Reason for consult: COPD, other Chief complaint: GI bleed, anemia. History of present illness: This is a obese 65-year-old female, with a history of congestive heart failure, COPD, diabetes, who presents to the emergency department on Aug.02, at 11 minutes after midnight, complaining of increasing shortness of breath, and gastrointestinal bleed. She apparently was recently at [facility], and had a procedure to cauterize the bleeding vessels. She also received blood transfusions at that time. More recently, over the last 24 hours, she became mo re short of breath. This typically occurs when her hemoglobin is low. Her last hemoglobin was 8.6, a week ago at her doctor's office. She admitted to Black stools, and upper abdominal pain. In addition, she had shortness of breath particularly on exertion. She denied any chest pain, dizziness, or weakness. She has been using her home oxygen at 2 L. She denies any nausea, vomiting, or diarrhea. She denies any genitourinary complaints. Apparently, the patient received 1 unit of PRBCs, and Lasix after that because of shortness of breath. According to the nurse Lola, the patient is on 6 L nasal cannula. The patient does have significant lower extremity edema. The patient did not look particularly short of breath. White count is 12.6, hemoglobin 7.7, hematocrit 26.2, and platelet count 266,000. PT, INR, PTT are all normal. Sodium 141, potassium 4.1, chlorides 99, CO2 37, anion gap 5, BUN 29, creatinine 0.86. The patient's troponin was 0.069, with an N-terminal proBNP that was 4480. Chest x- ray, and my opinion, is consistent with fluid overload/CHF. Review of Systems REVIEW OF SYSTEMS: CONSTITUTIONAL: Weakness. NEUROLOGIC: [ Negative.] HEENT: [ Negative.] CARDIAC: Lower extremity edema. PULMONARY: Progressive shortness of breath. GI: Tarry stools. : [Negative.] RHEUMATOLOGIC: [ Negative.] IMMUNOLOGIC: [ Negative.] ENDOCRINE: [Negative. ] DERMATOLOGIC: [Negative.] Past Medical History Past Medical History: Heart Failure, COPD, Diabetes Mellitus, GI Bleed, Pneumonia, Respiratory Disorder Additional Past Medical History / Comment(s): heart murmur, neuropathy, scope done Last Myocardial Infarction Date:: 2018 History of Any Multi-Drug Resistant Organisms: None Reported Date of last positivie culture/infection: 04/2019 MDRO Source:: URINE Past Surgical History: Section, Cholecystectomy, Heart Catheterization, Hysterectomy, Orthopedic Surgery Additional Past Surgical History / Comment(s): Gi cauterization 02/22/2020; heart cath 12/26/2019; cataracts removal, lens placement. FREQUENT BLOOD TRANFUSIONS Past Anesthesia/Blood Transfusion Reactions: Previous Problems w/ Anesthesia Additional Past Anesthesia/Blood Transfusion Reaction / Comment(s): ALLERGY TO CISATRACURIUM- FACE TURNED RED/SWOLLEN Past Psychological History: No Psychological Hx Reported Smoking Status: Never smoker Past Alcohol Use History: None Reported Past Drug Use History: None Reported - Past Family History Mother Family Medical History: Renal Disease Additional Family Medical History / Comment(s): Mother was on Hemodilaysis Medications and Allergies Home Medications Medication Instructions Recorded Confirmed Type Albuterol Inhaler [Ventolin Hfa 1 - 2 puff INHALATION RT-QID PRN 03/09/20 08/02/20 History Inhaler] Albuterol Nebulized [Ventolin 2.5 mg INHALATION RT-QID PRN 03/09/20 08/02/20 History Nebulized] Atorvastatin [Lipitor] 40 mg PO DAILY 03/09/20 08/02/20 History Budesonide-Formot 160-4.5 Mcg 2 puff INHALATION RT-BID 03/09/20 08/02/20 History [Symbicort 160-4.5 Mcg Inhaler] Glimepiride [Amaryl] 2 mg PO DAILY 03/09/20 08/02/20 History Isosorbide Mononitrate ER [Imdur] 30 mg PO DAILY 03/09/20 08/02/20 History Levothyroxine Sodium 125 mcg PO DAILY 03/09/20 08/02/20 History Montelukast Sodium [Singulair] 10 mg PO HS 03/09/20 08/02/20 History Nitroglycerin Sl Tabs [Nitrostat] 0.4 mg SUBLINGUAL Q5M PRN 03/09/20 08/02/20 History Potassium Chloride ER [K-Dur 10] 10 meq PO BID 03/09/20 08/02/20 History rOPINIRole HCL [Requip] 2 mg PO BID 03/09/20 08/02/20 History sitaGLIPtin [Januvia] 100 mg PO DAILY 03/09/20 08/02/20 History Pantoprazole [Protonix] 40 mg PO BID #0 03/17/20 08/02/20 Rx Pregabalin [Lyrica] 200 mg PO BID #6 cap 03/17/20 08/02/20 Rx Sennosides-Docusate Sodium 1 tab PO BID PRN 03/27/20 08/02/20 History [Senokot-S] Metoprolol Tartrate [Lopressor] 100 mg PO BID 05/09/20 08/02/20 History Spironolactone [Aldactone] 25 mg PO DAILY 05/09/20 08/02/20 History amLODIPine [Norvasc] 5 mg PO DAILY 05/09/20 08/02/20 History FLUoxetine HCL [PROzac] 20 mg PO DAILY 05/31/20 08/02/20 History Insulin Aspart [NovoLOG Flexpen] See Protocol SQ ACHS 05/31/20 08/02/20 History Tiotropium 2.5 Mcg/Puff [Spiriva 2 puff INHALATION RT-DAILY #1 06/23/20 08/02/20 Rx Respimat 2.5 Mcg] inhaler Insulin Aspart [NovoLOG Flexpen] 15 units SQ AC-TID 06/30/20 08/02/20 History Insulin Glargine,Hum.rec.anlog 30 units SQ BID 06/30/20 08/02/20 History [Oliva Sandoval] Bumetanide [Bumex] 2 mg PO BID 08/02/20 08/02/20 History Allergies Allergy/AdvReac Type Severity Reaction Status Date / Time cisatracurium [From Nimbex] Allergy Rash/Hives Verified 08/02/20 08:39 Physical Exam Osteopathic Statement: *. No significant issues noted on an osteopathic structural exam other than those noted in the History and Physical/Consult. Vitals: Vital Signs Temp Pulse Pulse Resp BP BP Pulse Ox 08/02/20 12:00 97.6 F 64 20 129/55 99 08/02/20 11:55 80 08/02/20 11:46 80 08/02/20 09:09 20 96 08/02/20 07:35 24 100 08/02/20 07:30 82 24 118/56 81 L 08/02/20 06:49 97.7 F 78 18 114/68 94 L 08/02/20 05:10 97.8 F 68 18 101/60 95 08/02/20 04:40 97.7 F 87 18 103/49 08/02/20 04:31 97.4 F L 73 16 121/67 96 08/02/20 04:30 97.4 F L 72 16 105/66 95 08/02/20 03:24 97.8 F 89 24 127/76 97 08/02/20 01:11 82 16 135/44 94 L 08/02/20 00:44 20 08/02/20 00:19 97.9 F 95 22 130/70 98 Intake and Output 08/01/20 08/02/20 08/02/20 22:59 06:59 14:59 Intake Total 310 600 Output Total 600 Balance 310 0 Intake: Oral 0 600 Blood Product 310 Rc As-1 Unit 310 [id number] Output: Urine 600 Other: # Voids 0 # Bowel Movements 1 Weight 113.398 kg 120.1 kg No acute distress, oriented 3. Currently on nasal O2 at 6 L. No evidence of conversational dyspnea, or audible wheezing. HEENT examination is grossly unremarkable. Mucous membranes are moist. No oral lesions. Neck supple. Full range of motion. No adenopathy thyromegaly or neck vein distention. Cardiovascular examination reveals regular rhythm rate. S1-S2 normal. No S3 or S4. No discernible murmur noted. Heart rate is 80 bpm. Heart sounds are distant. Lungs reveal bibasilar crackles. No wheezes or rhonchi. Breath sounds equal. Breath sounds diminished throughout. Abdomen soft bowel sounds are heard. No masses or tenderness. Extremities reveal 1+ to 2+ pitting edema. No cyanosis or clubbing. Skin chronic venous changes and erythema of the lower extremities. Neurologic examination is brief but nonfocal. Results - Laboratory Findings CBC and BMP: 08/02/20 10:39 08/02/20 00:50 PT/INR, D-dimer PT 10.3 sec (9.0-12.0) 08/02/20 01:52 INR 1.0 (<1.2) 08/02/20 01:52 Abnormal lab findings: Abnormal Labs 08/02/20 08/02/20 08/02/20 00:50 00:50 00:50 WBC 11.6 H RBC 2.78 L Hgb 6.8 L* D Hct 23.1 L MCH 24.3 L MCHC 29.3 L RDW 19.1 H Neutrophils # Neutrophils # (Manual) 10.21 H Lymphocytes # (Manual) 0.46 L Monocytes # Monocytes # (Manual) Carbon Dioxide 37 H BUN 29 H Glucose 181 H POC Glucose (mg/dL) Calcium 8.3 L Alkaline Phosphatase 144 H Troponin I 0.069 H* Albumin 3.4 L Procalcitonin Crossmatch 08/02/20 08/02/20 08/02/20 00:50 05:56 07:15 WBC 12.9 H RBC 3.07 L Hgb 7.6 L Hct 26.4 L MCH 24.8 L MCHC 28.9 L RDW 17.9 H Neutrophils # Neutrophils # (Manual) 9.20 H Lymphocytes # (Manual) Monocytes # Monocytes # (Manual) 1.29 H Carbon Dioxide BUN Glucose POC Glucose (mg/dL) 145 H Calcium Alkaline Phosphatase Troponin I Albumin Procalcitonin Crossmatch See Detail 08/02/20 08/02/20 08/02/20 07:15 10:39 11:35 WBC 12.6 H RBC 3.08 L Hgb 7.7 L Hct 26.2 L MCH MCHC 29.4 L RDW 18.3 H Neutrophils # 9.6 H Neutrophils # (Manual) Lymphocytes # (Manual) Monocytes # 1.2 H Monocytes # (Manual) Carbon Dioxide BUN Glucose POC Glucose (mg/dL) 201 H Calcium Alkaline Phosphatase Troponin I Albumin Procalcitonin 0.13 H Crossmatch - Diagnostic Findings Chest x-ray: image reviewed Assessment and Plan Assessment: GI bleed, status post 1 unit of PRBCs. Initial hemoglobin 6.8. History of prior GI bleed, secondary to duodenal AV malformation. Fluid overload/CHF, likely secondary to transfusion of 1 unit of PRBCs. COPD, not particularly active at this time. Morbid obesity. History of diabetes mellitus. Prior history of GI bleed. History of pneumonia. Chronic hypoxemic respiratory failure, on chronic nocturnal BiPAP therapy. Diabetic neuropathy. Valvular heart disease. Obstructive sleep apnea syndrome. History of hypothyroidism. Previous history of heavy tobacco use. History of depression. Plan: Plan dated 08/02/2020. Based on the patient's chest x-ray, physical examination, an N-terminal proBNP, it appears that her shortness of breath likely relates to fluid overload/CHF rather than her COPD. Her medications are reviewed. Additional recommendations and suggestions are forthcoming. Gnosis is guarded. The patient has multiple admissions to this hospital for various things including CHF, COPD, GI bleed, etc. Overall health is poor. I will add Symbicort to her regimen. She does not need corticosteroids at this time. Time with Patient: Greater than 30
[2020-08-02 16:41] LABS: Glucose,Whole Blood 140 mg/dL (75-99)
[2020-08-02 18:13] LABS: Anisocytosis Slight; HCT 25.9 % (34.0-46.0); HGB 7.8 gm/dL (11.4-16.0); Hypochromasia Marked; MCH 25.8 pg (25.0-35.0); MCHC 30.2 g/dL (31.0-37.0); MCV 85.4 fL (80.0-100.0); Mean Platelet Volume 8.3; Platelet Count 234 k/uL (150-450); Poikilocytosis Marked; RBC 3.03 m/uL (3.80-5.40); RDW 18.2 % (11.5-15.5)
[2020-08-02 18:28] LABS: Band Neutrophils % 2 %; Eosinophils # (M) 0.76 k/uL (0-0.7); Lymphocytes # (M) 1.13 k/uL (1.0-4.8); Monocytes # (M) 1.76 k/uL (0-1.0); Myelocytes # (M) 0.13 k/uL (0); Myelocytes % 1 %; Neutrophils % (M) 70 %; Nucleated Red Blood Cells 1 /100 WBC (0-0); Polychromasia Present; Stomatocytes Present; Total Cells Counted 200; WBC 12.6 k/uL (3.8-10.6)
[2020-08-02] MEDS: SYMBICORT 160-4.5 MCG INHALER INHALATION SCH (19:34)
[2020-08-02 20:52] LABS: Glucose,Whole Blood 137 mg/dL (75-99)
[2020-08-02 21:29] LABS: ABG Base Excess 9.1 mmol/L; ABG HCO3 36 mmol/L (21-25); ABG Oxygen Saturation 94.9 % (94-97); ABG PH 7.25 (7.35-7.45); ABG PO2 72 mmHg (83-108); ABG TCO2 39 mmol/L (19-24); Allen Test Performed? Yes
[2020-08-02 21:43] LABS: ABG PCO2 82 mmHg (35-45)
[2020-08-02] MEDS: FUROSEMIDE 10 MG/ML 10 ML VIAL IV SCH (21:50)
[2020-08-02] MEDS: MONTELUKAST 10 MG TAB PO SCH (23:46)
[2020-08-02 23:49] LABS: Glucose,Whole Blood 69 mg/dL (75-99)
[2020-08-03 00:11] LABS: Glucose,Whole Blood 101 mg/dL (75-99)
[2020-08-03 00:43] LABS: Anisocytosis Slight; HGB 7.4 gm/dL (11.4-16.0); Hypochromasia Marked; MCH 25.6 pg (25.0-35.0); MCHC 29.7 g/dL (31.0-37.0); MCV 86.1 fL (80.0-100.0); Mean Platelet Volume 7.5; Platelet Count 226 k/uL (150-450); Poikilocytosis Marked; RBC 2.91 m/uL (3.80-5.40); RDW 18.2 % (11.5-15.5); WBC 11.3 k/uL (3.8-10.6)
[2020-08-03 01:31] LABS: Band Neutrophils % 2 %; Eosinophils # (M) 0.34 k/uL (0-0.7); Large Platelets Present; Neutrophils % (M) 73 %; Nucleated Red Blood Cells 0 /100 WBC (0-0); Polychromasia Present; Total Cells Counted 200
[2020-08-03] MEDS: FUROSEMIDE 10 MG/ML 4 ML VIAL IV SCH (03:57)
[2020-08-03 06:36] LABS: Glucose,Whole Blood 143 mg/dL (75-99)
[2020-08-03] MEDS: LEVOTHYROXINE 125 MCG TAB PO SCH (06:38)
[2020-08-03] MEDS: INSULIN ASPART (NovoLOG) 100 UNIT/ML VIAL SQ SCH ×4 (06:39→20:20)
[2020-08-03] MEDS: INSULIN DETEMIR (LEVEMIR) 100 UNIT/ML SYR SQ SCH ×3 (06:57→20:57)
[2020-08-03 07:34] LABS: Anisocytosis Slight; HCT 25.1 % (34.0-46.0); Hypochromasia Marked; MCH 24.6 pg (25.0-35.0); MCHC 27.8 g/dL (31.0-37.0); MCV 88.6 fL (80.0-100.0); Mean Platelet Volume 7.2; Platelet Count 210 k/uL (150-450); Poikilocytosis Marked; RBC 2.84 m/uL (3.80-5.40); RDW 17.9 % (11.5-15.5); WBC 13.2 k/uL (3.8-10.6)
[2020-08-03] MEDS: IPRATROPIUM-ALBUTEROL 3 ML NEB INHALATION SCH ×4 (07:45→19:49)
[2020-08-03] MEDS: SYMBICORT 160-4.5 MCG INHALER INHALATION SCH ×2 (07:45→19:50)
[2020-08-03 07:52] LABS: Albumin 3.2 g/dL (3.5-5.0); Calcium 8.1 mg/dL (8.4-10.2); Potassium 4.3 mmol/L (3.5-5.1); Total Bilirubin 0.5 mg/dL (0.2-1.3)
--- NOTE | 2020-08-03 08:21 | P.CONS ---
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 Patient was scoped locally on 06/03/2020 with cauterization of a proximal small bowel angiodysplasia. She was recently hospitalized a few weeks ago again found to be anemic and sent to [facility] for balloon enteroscopy at which time she reports cauterization of a bleeding angiectasia. Since discharge she is continued to note dark stool. She presented for shortness of breath and was felt to have fluid overload secondary to underlying congestive heart failure and is currently being diuresed. Her hemoglobin on presentation was 6.8 and currently 7.6 status post transfusion. Still reporting some shortness of breath at this time. Review of Systems REVIEW OF SYSTEMS: CONSTITUTIONAL: Denies any fevers, chills, weight change or fatigue. CARDIOVASCULAR: Denies any chest pain, palpitations high or low blood pressures RESPIRATORY: Denies any hemoptysis or cough but does report shortness of breath GENITOURINARY: No dysuria or hematuria. MUSCULOSKELETAL: No weakness reported. SKIN: Denies any new rashes or lesions, jaundice or pallor. PSYCHIATRIC: Denies any depression or anxiety. NEUROLOGY: Denies headache, denies any new focal deficits. EARS/NOSE/THROAT: No recent hearing change, congestion, nasal discharge or sore throat. EYES: No pain in eyes, discharge or change in vision. GASTROINTESTINAL: As per HPI. Past Medical History Past Medical History: Heart Failure, COPD, Diabetes Mellitus, GI Bleed, Pneumonia, Respiratory Disorder Additional Past Medical History / Comment(s): heart murmur, neuropathy, scope done Last Myocardial Infarction Date:: 2018 History of Any Multi-Drug Resistant Organisms: None Reported Year Discovered:: 04/2019 MDRO Source:: URINE Past Surgical History: Section, Cholecystectomy, Heart Catheterization, Hysterectomy, Orthopedic Surgery Additional Past Surgical History / Comment(s): Gi cauterization 02/22/2020; heart cath 12/26/2019; cataracts removal, lens placement. FREQUENT BLOOD TRANFUSIONS Past Anesthesia/Blood Transfusion Reactions: Previous Problems w/ Anesthesia Additional Past Anesthesia/Blood Transfusion Reaction / Comm: ALLERGY TO CISATRACURIUM- FACE TURNED RED/SWOLLEN Past Psychological History: No Psychological Hx Reported Smoking Status: Never smoker Past Alcohol Use History: None Reported Past Drug Use History: None Reported - Past Family History Mother Family Medical History: Renal Disease Additional Family Medical History / Comment(s): Mother was on Hemodilaysis Medications and Allergies Home Medications Medication Instructions Recorded Confirmed Type Albuterol Inhaler [Ventolin Hfa 1 - 2 puff INHALATION RT-QID PRN 03/09/20 08/02/20 History Inhaler] Albuterol Nebulized [Ventolin 2.5 mg INHALATION RT-QID PRN 03/09/20 08/02/20 History Nebulized] Atorvastatin [Lipitor] 40 mg PO DAILY 03/09/20 08/02/20 History Budesonide-Formot 160-4.5 Mcg 2 puff INHALATION RT-BID 03/09/20 08/02/20 History [Symbicort 160-4.5 Mcg Inhaler] Glimepiride [Amaryl] 2 mg PO DAILY 03/09/20 08/02/20 History Isosorbide Mononitrate ER [Imdur] 30 mg PO DAILY 03/09/20 08/02/20 History Levothyroxine Sodium 125 mcg PO DAILY 03/09/20 08/02/20 History Montelukast Sodium [Singulair] 10 mg PO HS 03/09/20 08/02/20 History Nitroglycerin Sl Tabs [Nitrostat] 0.4 mg SUBLINGUAL Q5M PRN 03/09/20 08/02/20 History Potassium Chloride ER [K-Dur 10] 10 meq PO BID 03/09/20 08/02/20 History rOPINIRole HCL [Requip] 2 mg PO BID 03/09/20 08/02/20 History sitaGLIPtin [Januvia] 100 mg PO DAILY 03/09/20 08/02/20 History Pantoprazole [Protonix] 40 mg PO BID #0 03/17/20 08/02/20 Rx Pregabalin [Lyrica] 200 mg PO BID #6 cap 03/17/20 08/02/20 Rx Sennosides-Docusate Sodium 1 tab PO BID PRN 03/27/20 08/02/20 History [Senokot-S] Metoprolol Tartrate [Lopressor] 100 mg PO BID 05/09/20 08/02/20 History Spironolactone [Aldactone] 25 mg PO DAILY 05/09/20 08/02/20 History amLODIPine [Norvasc] 5 mg PO DAILY 05/09/20 08/02/20 History FLUoxetine HCL [PROzac] 20 mg PO DAILY 05/31/20 08/02/20 History Insulin Aspart [NovoLOG Flexpen] See Protocol SQ ACHS 05/31/20 08/02/20 History Tiotropium 2.5 Mcg/Puff [Spiriva 2 puff INHALATION RT-DAILY #1 06/23/20 08/02/20 Rx Respimat 2.5 Mcg] inhaler Insulin Aspart [NovoLOG Flexpen] 15 units SQ AC-TID 06/30/20 08/02/20 History Insulin Glargine,Hum.rec.anlog 30 units SQ BID 06/30/20 08/02/20 History [Oliva Sandoval] Bumetanide [Bumex] 2 mg PO BID 08/02/20 08/02/20 History Allergies Allergy/AdvReac Type Severity Reaction Status Date / Time cisatracurium [From Nimbex] Allergy Rash/Hives Verified 08/02/20 08:39 Physical Exam Vitals: Vital Signs Temp Pulse Pulse Resp BP BP Pulse Ox 08/02/20 09:09 20 96 08/02/20 07:35 24 100 08/02/20 07:30 82 24 118/56 81 L 08/02/20 06:49 97.7 F 78 18 114/68 94 L 08/02/20 05:10 97.8 F 68 18 101/60 95 08/02/20 04:40 97.7 F 87 18 103/49 08/02/20 04:31 97.4 F L 73 16 121/67 96 08/02/20 04:30 97.4 F L 72 16 105/66 95 08/02/20 03:24 97.8 F 89 24 127/76 97 08/02/20 01:11 82 16 135/44 94 L 08/02/20 00:44 20 08/02/20 00:19 97.9 F 95 22 130/70 98 Intake and Output 08/01/20 08/02/20 08/02/20 22:59 06:59 14:59 Intake Total 310 Output Total 600 Balance 310 -600 Intake: Oral 0 Blood Product 310 Rc As-1 Unit 310 [id number] Output: Urine 600 Other: # Voids 0 # Bowel Movements 1 Weight 113.398 kg 120.1 kg On physical examination, patient appears comfortable in no apparent distress. HEAD: Normocephalic, atraumatic. EYES: No scleral icterus. No conjunctival injection. MOUTH: No lesions, tongue midline. NECK: Trachea midline, no gross abnormalities. CHEST: Decreased air entry in all lung phelps. HEART: S1-S2 appreciated. ABDOMEN: Soft, obese and nontender to palpation. Bowel sounds are positive. No organomegaly. No guarding or rigidity. EXTREMITIES: Bilateral pedal edema. SKIN: No rashes, no jaundice. NEUROLOGIC: Alert and oriented x3. No focal deficits. Results CBC & Chem 7: 08/03/20 07:11 08/03/20 07:11 Labs: Abnormal Lab Results - Last 24 Hours (Table) 08/02/20 08/02/20 08/02/20 Range/Units 00:50 00:50 00:50 WBC 11.6 H (3.8-10.6) k/uL RBC 2.78 L (3.80-5.40) m/uL Hgb 6.8 L* D (11.4-16.0) gm/dL Hct 23.1 L (34.0-46.0) % MCH 24.3 L (25.0-35.0) pg MCHC 29.3 L (31.0-37.0) g/dL RDW 19.1 H (11.5-15.5) % Neutrophils # (Manual) 10.21 H (1.3-7.7) k/uL Lymphocytes # (Manual) 0.46 L (1.0-4.8) k/uL Monocytes # (Manual) (0-1.0) k/uL Carbon Dioxide 37 H (22-30) mmol/L BUN 29 H (7-17) mg/dL Glucose 181 H (74-99) mg/dL POC Glucose (mg/dL) (75-99) mg/dL Calcium 8.3 L (8.4-10.2) mg/dL Alkaline Phosphatase 144 H (38-126) U/L Troponin I 0.069 H* (0.000-0.034) ng/mL Albumin 3.4 L (3.5-5.0) g/dL Crossmatch 08/02/20 08/02/20 08/02/20 Range/Units 00:50 05:56 07:15 WBC 12.9 H (3.8-10.6) k/uL RBC 3.07 L (3.80-5.40) m/uL Hgb 7.6 L (11.4-16.0) gm/dL Hct 26.4 L (34.0-46.0) % MCH 24.8 L (25.0-35.0) pg MCHC 28.9 L (31.0-37.0) g/dL RDW 17.9 H (11.5-15.5) % Neutrophils # (Manual) 9.20 H (1.3-7.7) k/uL Lymphocytes # (Manual) (1.0-4.8) k/uL Monocytes # (Manual) 1.29 H (0-1.0) k/uL Carbon Dioxide (22-30) mmol/L BUN (7-17) mg/dL Glucose (74-99) mg/dL POC Glucose (mg/dL) 145 H (75-99) mg/dL Calcium (8.4-10.2) mg/dL Alkaline Phosphatase (38-126) U/L Troponin I (0.000-0.034) ng/mL Albumin (3.5-5.0) g/dL Crossmatch See Detail Chest x-ray: report reviewed (Diffuse pulmonary vascular congestion on x-ray will to be secondary to CHF.) Assessment and Plan (1) Anemia Narrative/Plan: 65-year-old female with multiple medical comorbidities including prior GI bleed with multiple endoscopies in the past year including a locally on 05/2020 with findings of proximal small bowel angiectasia treated with coagulation therapy the patient was recently sent to [facility] where she reports push enteroscopy with treatment of angiectasia and presented for shortness of breath. Chest x-ray suggestive of fluid overload from congestive heart failure. Anemia likely multifactorial given known history of small bowel GI bleeding as well as likely component of anemia of chronic disease hemoglobin currently stable at 7.6 status post transfusion. Current Visit: Yes Status: Acute Code(s): D64.9 - ANEMIA, UNSPECIFIED SNOMED Code(s): 354058120 (2) GI bleed Current Visit: Yes Status: Acute Code(s): K92.2 - GASTROINTESTINAL HEMORRHAGE, UNSPECIFIED SNOMED Code(s): 45460541 (3) Melena Current Visit: No Status: Acute Code(s): K92.1 - MELENA SNOMED Code(s): 4931033 Plan: Supportive care Clear liquid diet Continue to monitor CBC and transfuse as needed Continue to monitor for signs or symptoms of GI bleed Continue Protonix therapy No plan for endoscopy at this time, the patient would benefit from transfer back to [facility] for dedicated small bowel study with balloon enteroscopy if stable Thank you for allowing us to participate in the care of the patient
[2020-08-03] MEDS: ISOSORBIDE MONONITRATE ER 30 MG TAB.ER.24H PO SCH (08:23)
[2020-08-03] MEDS: METOPROLOL TARTRATE 50 MG TAB PO SCH ×2 (08:23→20:19)
[2020-08-03] MEDS: POTASSIUM CHLORIDE ER 10 MEQ TAB.ER.PRT PO SCH ×2 (08:23→20:19)
[2020-08-03] MEDS: ATORVASTATIN 40 MG TAB PO SCH (08:23)
[2020-08-03] MEDS: FLUoxetine HCL 20 MG CAP PO SCH (08:23)
[2020-08-03] MEDS: PREGABALIN 100 MG CAP PO SCH ×2 (08:24→20:19)
[2020-08-03] MEDS: SPIRONOLACTONE 25 MG TAB PO SCH (08:24)
[2020-08-03] MEDS: FUROSEMIDE 10 MG/ML 10 ML VIAL IV SCH ×2 (08:24→20:19)
[2020-08-03] MEDS: acetaZOLAMIDE 250 MG TAB PO SCH (08:24)
[2020-08-03] MEDS: PANTOPRAZOLE 40 MG/10 ML VIAL IV SCH ×2 (08:25→20:19)
[2020-08-03] MEDS: ONDANSETRON 4 MG/2 ML VIAL IVP PRN (10:57)
--- NOTE | 2020-08-03 11:11 | P.PN ---
Subjective Progress Note Date: 08/03/20 History of present illness\ This is a pleasant 65-year-old female with past medical history significant for heart failure, COPD, diabetes, GI bleed with anemia presented to the emergency department yesterday with for evaluation of increased shortness of breath. Patient has frequent upper GI bleeds her last hospitalization she was transferred to [facility] where it was found to have angiodysplasia. Patient states that she had cauterization of the bleeds at [facility]. She also received multiple blood transfusions. Yesterday patient had increased shortness of br eath that she states usually occurs when her hemoglobin decreases. Her last hemoglobin in her doctor's office was 8.6 last week. She is reporting black tarry stools and upper gastric pain. Patient denies chest pain. Patient reports dizziness and weakness. She does wear O2 at 2 L at home. Patient is found sitting up in bed with a nonrebreather in place. She is given 40 of Lasix due to increased shortness of breath. Awaiting GI consult and possible transfer to [facility]. Patient states that her bleeding did not stop after her last cauterization. Blood pressure 118/56, pulse rate 82, res pirations 24, 100% on a nonrebreather. WC 12.9, hemoglobin 7.6, potassium 4.1, B UN 29, creatinine 0.86 2: Patient had 1 unit of packed red blood cells transfused. Hemoglobin this morning was 7.0 which is down from 7.4 after the last transfusion. We will order an additional 1 unit of packed red blood cells. Transfer to [facility] was in place. However the transfer was rejected by receiving hospital - transfer was not necessary and no beds. If hemoglobin continues to trend down and we will continue to work for transfer. In 06/03/2020 patient had cauterization of proximal small bowel angiodysplasia. On 06/30/2019 patient was found to be anemic and sent to [facility] for balloon enteroscopy which time she reports cauterization of bleeding angiectasia. While at home patient continued to have dark stools. At this time patient is found to be sitting up in a chair in no acute distress. Patient is currently on 4 L of nasal cannula past flexing 98%. Patient states that her breathing is much better. She denies any dark stools at this time. Review Of Systems: Constitutional: No fever, no chills, no night sweats. No weight change. Repo rts weakness and fatigue no lethargy. No daytime sleepiness. EENT: No headache. No blurred vision or double vision, no loss of vision. No loss of Hearing, no ringing in the ears, no dizziness. No nasal drainage or congestion. No epistaxis. No sore throat. Lungs: Improved shortness of breath, reports cough, no sputum production. No wheezing. Cardiovascular: No chest pain, no lower extremity edema. No palpitations. No paroxysmal nocturnal dyspnea. No orthopnea. No lightheadedness or dizziness. No syncopal episodes. Abdominal: reports epigastic pain. No nausea, vomiting. no diarrhea. No constipation. No bloody reports tarry stools. no loss of appetite. Genitourinary: No dysuria, increased frequency, urgency. No urinary retention. Musculoskeletal: No myalgias. No muscle weakness, no gait dysfunction, no frequent falls. No back pain. No neck pain. Integumentary: No wounds, no lesions. No rash or pruritus. No unusual bruising. No change in hair or nails. Neurologic: No aphasia. No facial droop. No change in mentation. No head injury. No headache. No paralysis. No paresthesia. Psychiatric: No depression. No anxiety. No mood swings. Endocrine: No abnormal blood sugars. No weight change. No excessive sweating or thirst. Physical examination General Appearance: Alert, cooperative, no distress, 65-year-old appears stated age. Neck HEENT: Supple, no lymphadenopathy, no thyroid enlargement, no carotid bruits. Lungs: Crackles throughout, no rhonchi, no deformity. Chest Wall: Chest wall normal expansion with deep inspiration no tenderness and no deformity was found on exam, no costochondral pain or discomfort. Heart: Regular rate and rhythm, S1, S2 normal, systolic murmur present, no rub or gallop. Back: Symmetric, no curvature, ROM normal, no CVA tenderness. Abdomen: epigastric tenderness Soft,, no rebound or rigidity, no hepatosplenomegaly. Extremities: Extremities normal, atraumatic, no cyanosis or edema. Pulses: 2+ and symmetric. Skin: Bilateral lower extremity vascular dermatitis Skin color, texture, tugor normal, no rashes or lesions. Neurologic: Alert oriented x3 cranial nerves II through XII intact, no motor deficit, no abnormal balance or gait Assessment and plan 1. Acute hypoxic respiratory distress secondary to anemia and CHF. consult pulmonology appreciated, monitor hemoglobin, 1 unit of packed red blood cells transfused. Additional unit of packed red blood cells ordered. Transfer to [facility] was rejected. continue with DuoNeb, continue with oxygen support. Shortness of breath likely related to fluid overload rather than COPD. 2. Acute blood loss secondary to angiodysplasia, anemia. Consult GI appreciated, due to the need for balloon answers copy transferred is recommended. continue to monitor hemoglobin, continue Protonix 40 mg IV twice a day, Zofran 4 mg IV push every 8 hours 3. Chronic anemia, noted above 4. Exacerbation of congestive heart failure. Consult cardiology, Lasix 40 mg IV push every 12 hours, Therese door 10 mEq by mouth twice a day 5. COPD, consult pulmonology appreciated, continue DuoNeb, oxygen support Shortness of breath likely related to fluid overload rather than COPD. 6. Diabetes mellitus Levemir 15 units twice a day, NovoLog sliding scale continuous Accu-Cheks before meals at bedtime 7. Stage III chronic kidney disease continuous hydration and fluid restrictions 8. Hypertension continue amlodipine, metoprolol, and spironolactone 9. Hyperlipidemia atorvastatin 40 mg daily 10. Hypothyroidism continue levothyroxine 125 g daily 13. Obstructive sleep apnea has CPAP at home 14. Chronic pain management. Remain on hydrocodone and Lyrica 16. History of depression continue Prozac 17. Vascular dermatitis , apply Silvadene cream and wrap with Neftali wrap daily. No concern for infection 18. Restless leg syndrome: Requip 2 mg twice a day 19. GI prophylaxis continuous Protonix 20. DVT prophylaxis pneumatic compression stockings A minimum of 2 nights day Discharge plan: Possible transfer to tertiary facility Impression and plan of care have been directed as dictated by the signing physic ian. Brandy Villatoro nurse practitioner acting as scribe for signing physician. Objective - Vital Signs Vital signs: Vital Signs Temp 97.5 F L 08/03/20 08:00 Pulse 67 08/03/20 08:00 Resp 20 08/03/20 08:00 BP 110/54 08/03/20 08:00 Pulse Ox 98 08/03/20 08:00 Intake & Output 08/02/20 08/03/20 08/03/20 18:59 06:59 18:59 Intake Total 600 850 Output Total 600 1750 Balance 0 -900 Weight 120.1 kg 120.2 kg Intake: Oral 600 850 Output: Urine 600 1750 Uretheral (Raphael) 500 Stool 0 Other: Voiding Method Indwelling Catheter Indwelling Catheter # Voids 0 # Bowel Movements 0 0 - Labs CBC & Chem 7: 08/03/20 07:11 08/03/20 07:11 Labs: Abnormal Lab Results - Last 24 Hours (Table) 08/02/20 08/02/20 08/02/20 Range/Units 00:50 07:15 10:39 WBC 12.6 H (3.8-10.6) k/uL RBC 3.08 L (3.80-5.40) m/uL Hgb 7.7 L (11.4-16.0) gm/dL Hct 26.2 L (34.0-46.0) % MCH (25.0-35.0) pg MCHC 29.4 L (31.0-37.0) g/dL RDW 18.3 H (11.5-15.5) % Neutrophils # 9.6 H (1.3-7.7) k/uL Neutrophils # (Manual) (1.3-7.7) k/uL Monocytes # 1.2 H (0-1.0) k/uL Monocytes # (Manual) (0-1.0) k/uL Eosinophils # (Manual) (0-0.7) k/uL Myelocytes # (Manual) (0) k/uL Nucleated RBCs (0-0) /100 WBC ABG pH (7.35-7.45) ABG pCO2 (35-45) mmHg ABG pO2 (83-108) mmHg ABG HCO3 (21-25) mmol/L ABG Total CO2 (19-24) mmol/L Chloride (98-107) mmol/L Carbon Dioxide (22-30) mmol/L BUN (7-17) mg/dL Creatinine (0.52-1.04) mg/dL Glucose (74-99) mg/dL POC Glucose (mg/dL) (75-99) mg/dL Calcium (8.4-10.2) mg/dL Total Protein (6.3-8.2) g/dL Albumin (3.5-5.0) g/dL Procalcitonin 0.13 H (0.02-0.09) ng/mL Crossmatch See Detail 08/02/20 08/02/20 08/02/20 Range/Units 11:35 16:39 17:35 WBC 12.6 H (3.8-10.6) k/uL RBC 3.03 L (3.80-5.40) m/uL Hgb 7.8 L (11.4-16.0) gm/dL Hct 25.9 L (34.0-46.0) % MCH (25.0-35.0) pg MCHC 30.2 L (31.0-37.0) g/dL RDW 18.2 H (11.5-15.5) % Neutrophils # (1.3-7.7) k/uL Neutrophils # (Manual) 9.00 H (1.3-7.7) k/uL Monocytes # (0-1.0) k/uL Monocytes # (Manual) 1.76 H (0-1.0) k/uL Eosinophils # (Manual) 0.76 H (0-0.7) k/uL Myelocytes # (Manual) 0.13 H (0) k/uL Nucleated RBCs 1 H (0-0) /100 WBC ABG pH (7.35-7.45) ABG pCO2 (35-45) mmHg ABG pO2 (83-108) mmHg ABG HCO3 (21-25) mmol/L ABG Total CO2 (19-24) mmol/L Chloride (98-107) mmol/L Carbon Dioxide (22-30) mmol/L BUN (7-17) mg/dL Creatinine (0.52-1.04) mg/dL Glucose (74-99) mg/dL POC Glucose (mg/dL) 201 H 140 H (75-99) mg/dL Calcium (8.4-10.2) mg/dL Total Protein (6.3-8.2) g/dL Albumin (3.5-5.0) g/dL Procalcitonin (0.02-0.09) ng/mL Crossmatch 08/02/20 08/02/20 08/02/20 Range/Units 20:51 21:35 23:37 WBC 11.3 H (3.8-10.6) k/uL RBC 2.91 L (3.80-5.40) m/uL Hgb 7.4 L (11.4-16.0) gm/dL Hct 25.0 L (34.0-46.0) % MCH (25.0-35.0) pg MCHC 29.7 L (31.0-37.0) g/dL RDW 18.2 H (11.5-15.5) % Neutrophils # (1.3-7.7) k/uL Neutrophils # (Manual) 8.40 H (1.3-7.7) k/uL Monocytes # (0-1.0) k/uL Monocytes # (Manual) (0-1.0) k/uL Eosinophils # (Manual) (0-0.7) k/uL Myelocytes # (Manual) (0) k/uL Nucleated RBCs (0-0) /100 WBC ABG pH 7.25 L (7.35-7.45) ABG pCO2 82 H* (35-45) mmHg ABG pO2 72 L (83-108) mmHg ABG HCO3 36 H (21-25) mmol/L ABG Total CO2 39 H (19-24) mmol/L Chloride (98-107) mmol/L Carbon Dioxide (22-30) mmol/L BUN (7-17) mg/dL Creatinine (0.52-1.04) mg/dL Glucose (74-99) mg/dL POC Glucose (mg/dL) 137 H (75-99) mg/dL Calcium (8.4-10.2) mg/dL Total Protein (6.3-8.2) g/dL Albumin (3.5-5.0) g/dL Procalcitonin (0.02-0.09) ng/mL Crossmatch 08/02/20 08/03/20 08/03/20 Range/Units 23:42 00:10 06:00 WBC (3.8-10.6) k/uL RBC (3.80-5.40) m/uL Hgb (11.4-16.0) gm/dL Hct (34.0-46.0) % MCH (25.0-35.0) pg MCHC (31.0-37.0) g/dL RDW (11.5-15.5) % Neutrophils # (1.3-7.7) k/uL Neutrophils # (Manual) (1.3-7.7) k/uL Monocytes # (0-1.0) k/uL Monocytes # (Manual) (0-1.0) k/uL Eosinophils # (Manual) (0-0.7) k/uL Myelocytes # (Manual) (0) k/uL Nucleated RBCs (0-0) /100 WBC ABG pH (7.35-7.45) ABG pCO2 (35-45) mmHg ABG pO2 (83-108) mmHg ABG HCO3 (21-25) mmol/L ABG Total CO2 (19-24) mmol/L Chloride (98-107) mmol/L Carbon Dioxide (22-30) mmol/L BUN (7-17) mg/dL Creatinine (0.52-1.04) mg/dL Glucose (74-99) mg/dL POC Glucose (mg/dL) 69 L 101 H 143 H (75-99) mg/dL Calcium (8.4-10.2) mg/dL Total Protein (6.3-8.2) g/dL Albumin (3.5-5.0) g/dL Procalcitonin (0.02-0.09) ng/mL Crossmatch 08/03/20 08/03/20 Range/Units 07:11 07:11 WBC 13.2 H (3.8-10.6) k/uL RBC 2.84 L (3.80-5.40) m/uL Hgb 7.0 L (11.4-16.0) gm/dL Hct 25.1 L (34.0-46.0) % MCH 24.6 L (25.0-35.0) pg MCHC 27.8 L (31.0-37.0) g/dL RDW 17.9 H (11.5-15.5) % Neutrophils # (1.3-7.7) k/uL Neutrophils # (Manual) (1.3-7.7) k/uL Monocytes # (0-1.0) k/uL Monocytes # (Manual) (0-1.0) k/uL Eosinophils # (Manual) (0-0.7) k/uL Myelocytes # (Manual) (0) k/uL Nucleated RBCs (0-0) /100 WBC ABG pH (7.35-7.45) ABG pCO2 (35-45) mmHg ABG pO2 (83-108) mmHg ABG HCO3 (21-25) mmol/L ABG Total CO2 (19-24) mmol/L Chloride 96 L (98-107) mmol/L Carbon Dioxide 38 H (22-30) mmol/L BUN 31 H (7-17) mg/dL Creatinine 1.08 H (0.52-1.04) mg/dL Glucose 111 H (74-99) mg/dL POC Glucose (mg/dL) (75-99) mg/dL Calcium 8.1 L (8.4-10.2) mg/dL Total Protein 6.0 L (6.3-8.2) g/dL Albumin 3.2 L (3.5-5.0) g/dL Procalcitonin (0.02-0.09) ng/mL Crossmatch
[2020-08-03 11:37] LABS: Glucose,Whole Blood 295 mg/dL (75-99)
[2020-08-03] MEDS: amLODIPine 5 MG TAB PO SCH (12:36)
--- NOTE | 2020-08-03 12:37 | P.PN ---
Subjective Progress Note Date: 08/03/20 Principal diagnosis: GI bleed, COPD This is a obese 65-year-old female, with a history of congestive heart failure, COPD, diabetes, who presents to the emergency department on Aug.02, at 11 minutes after midnight, complaining of increasing shortness of breath, and gastrointestinal bleed. She apparently was recently at [facility], and had a procedure to cauterize the bleeding vessels. She also received blood transfusions at that time. More recently, over the last 24 hours, she became more short of breath. This typically occurs when her hemoglobin is low. Her last hemoglobin was 8.6, a week ago at her doctor's office. She admitted to Black stools, and upper abdominal pain. In addition, she had shortness of breath particularly on exertion. She denied any chest pain, dizziness, or weakness. She has been using her home oxygen at 2 L. She denies any nausea, vomiting, or diarrhea. She denies any genitourinary complaints. Apparently, the patient received 1 unit of PRBCs, and Lasix after that because of shortness of breath. According to the nurse Lola, the patient is on 6 L nasal cannula. The patient does have significant lower extremity edema. The patient did not look particularly short of breath. White count is 12.6, hemoglobin 7.7, hematocrit 26.2, and platelet count 266,000. PT, INR, PTT are all normal. Sodium 141, potassium 4.1, chlorides 99, CO2 37, anion gap 5, BUN 29, creatinine 0.86. The patient's troponin was 0.069, with an N-terminal proBNP that was 4480. Chest x-ray, and my opinion, is consistent with fluid overload/CHF. The patient is seen today 08/03/2020 in follow-up on the selective care unit. She is currently sitting up in a chair at the bedside. Awake and alert in no acute distress. She denies any worsening shortness of breath, cough or congestion. She is maintaining O2 saturation in the 90s on 3 L/m per nasal cannula. She's afebrile. Hemodynamically stable. She is receiving her second unit of packed blood cells. Current hemoglobin 7.0. White count 13.2. Platelets 210. Sodium 139. Potassium 4.3. Creatinine 1.08. She remains on Symbicort, Singulair, DuoNeb inhalations. Lasix 80 mg IV every 12 hours along with Aldactone. Objective - Vital Signs Vital signs: Vital Signs Temp 97.5 F L 08/03/20 12:02 Pulse 76 08/03/20 12:02 Resp 20 08/03/20 12:02 BP 109/59 08/03/20 12:02 Pulse Ox 93 L 08/03/20 12:02 Intake & Output 08/02/20 08/03/20 08/03/20 18:59 06:59 18:59 Intake Total 600 850 0 Output Total 600 1750 725 Balance 0 -900 -725 Weight 120.1 kg 120.2 kg Intake: Oral 600 850 Blood Product 0 Rc As-1 Unit 0 [id number] Output: Urine 600 1750 725 Uretheral (Raphael) 500 Stool 0 Other: Voiding Method Indwelling Catheter Indwelling Catheter # Voids 0 # Bowel Movements 0 0 - Exam GENERAL EXAM: Alert, pleasant, obese 65-year-old female patient, on 3 L nasal cannula, comfortable in no apparent distress. HEAD: Normocephalic. EYES: Normal reaction of pupils, equal size. NOSE: Clear with pink turbinates. THROAT: No erythema or exudates. NECK: No masses, no JVD. CHEST: No chest wall deformity. LUNGS: Equal air entry with bilateral end expiratory wheeze, diminished. CVS: S1 and S2 normal with no audible murmur, regular rhythm. ABDOMEN: No hepatosplenomegaly, normal bowel sounds, no guarding or rigidity. SPINE: No scoliosis or deformity SKIN: No rashes CENTRAL NERVOUS SYSTEM: No focal deficits, tone is normal in all 4 extremities. EXTREMITIES: There is 1-2+ peripheral edema. No clubbing, no cyanosis. Peripheral pulses are intact. - Labs CBC & Chem 7: 08/03/20 07:11 08/03/20 07:11 Labs: Abnormal Lab Results - Last 24 Hours (Table) 08/02/20 08/02/20 08/02/20 Range/Units 00:50 16:39 17:35 WBC 12.6 H (3.8-10.6) k/uL RBC 3.03 L (3.80-5.40) m/uL Hgb 7.8 L (11.4-16.0) gm/dL Hct 25.9 L (34.0-46.0) % MCH (25.0-35.0) pg MCHC 30.2 L (31.0-37.0) g/dL RDW 18.2 H (11.5-15.5) % Neutrophils # (Manual) 9.00 H (1.3-7.7) k/uL Monocytes # (Manual) 1.76 H (0-1.0) k/uL Eosinophils # (Manual) 0.76 H (0-0.7) k/uL Myelocytes # (Manual) 0.13 H (0) k/uL Nucleated RBCs 1 H (0-0) /100 WBC ABG pH (7.35-7.45) ABG pCO2 (35-45) mmHg ABG pO2 (83-108) mmHg ABG HCO3 (21-25) mmol/L ABG Total CO2 (19-24) mmol/L Chloride (98-107) mmol/L Carbon Dioxide (22-30) mmol/L BUN (7-17) mg/dL Creatinine (0.52-1.04) mg/dL Glucose (74-99) mg/dL POC Glucose (mg/dL) 140 H (75-99) mg/dL Calcium (8.4-10.2) mg/dL Total Protein (6.3-8.2) g/dL Albumin (3.5-5.0) g/dL Crossmatch See Detail 08/02/20 08/02/20 08/02/20 Range/Units 20:51 21:35 23:37 WBC 11.3 H (3.8-10.6) k/uL RBC 2.91 L (3.80-5.40) m/uL Hgb 7.4 L (11.4-16.0) gm/dL Hct 25.0 L (34.0-46.0) % MCH (25.0-35.0) pg MCHC 29.7 L (31.0-37.0) g/dL RDW 18.2 H (11.5-15.5) % Neutrophils # (Manual) 8.40 H (1.3-7.7) k/uL Monocytes # (Manual) (0-1.0) k/uL Eosinophils # (Manual) (0-0.7) k/uL Myelocytes # (Manual) (0) k/uL Nucleated RBCs (0-0) /100 WBC ABG pH 7.25 L (7.35-7.45) ABG pCO2 82 H* (35-45) mmHg ABG pO2 72 L (83-108) mmHg ABG HCO3 36 H (21-25) mmol/L ABG Total CO2 39 H (19-24) mmol/L Chloride (98-107) mmol/L Carbon Dioxide (22-30) mmol/L BUN (7-17) mg/dL Creatinine (0.52-1.04) mg/dL Glucose (74-99) mg/dL POC Glucose (mg/dL) 137 H (75-99) mg/dL Calcium (8.4-10.2) mg/dL Total Protein (6.3-8.2) g/dL Albumin (3.5-5.0) g/dL Crossmatch 08/02/20 08/03/20 08/03/20 Range/Units 23:42 00:10 06:00 WBC (3.8-10.6) k/uL RBC (3.80-5.40) m/uL Hgb (11.4-16.0) gm/dL Hct (34.0-46.0) % MCH (25.0-35.0) pg MCHC (31.0-37.0) g/dL RDW (11.5-15.5) % Neutrophils # (Manual) (1.3-7.7) k/uL Monocytes # (Manual) (0-1.0) k/uL Eosinophils # (Manual) (0-0.7) k/uL Myelocytes # (Manual) (0) k/uL Nucleated RBCs (0-0) /100 WBC ABG pH (7.35-7.45) ABG pCO2 (35-45) mmHg ABG pO2 (83-108) mmHg ABG HCO3 (21-25) mmol/L ABG Total CO2 (19-24) mmol/L Chloride (98-107) mmol/L Carbon Dioxide (22-30) mmol/L BUN (7-17) mg/dL Creatinine (0.52-1.04) mg/dL Glucose (74-99) mg/dL POC Glucose (mg/dL) 69 L 101 H 143 H (75-99) mg/dL Calcium (8.4-10.2) mg/dL Total Protein (6.3-8.2) g/dL Albumin (3.5-5.0) g/dL Crossmatch 08/03/20 08/03/20 08/03/20 Range/Units 07:11 07:11 11:35 WBC 13.2 H (3.8-10.6) k/uL RBC 2.84 L (3.80-5.40) m/uL Hgb 7.0 L (11.4-16.0) gm/dL Hct 25.1 L (34.0-46.0) % MCH 24.6 L (25.0-35.0) pg MCHC 27.8 L (31.0-37.0) g/dL RDW 17.9 H (11.5-15.5) % Neutrophils # (Manual) (1.3-7.7) k/uL Monocytes # (Manual) (0-1.0) k/uL Eosinophils # (Manual) (0-0.7) k/uL Myelocytes # (Manual) (0) k/uL Nucleated RBCs (0-0) /100 WBC ABG pH (7.35-7.45) ABG pCO2 (35-45) mmHg ABG pO2 (83-108) mmHg ABG HCO3 (21-25) mmol/L ABG Total CO2 (19-24) mmol/L Chloride 96 L (98-107) mmol/L Carbon Dioxide 38 H (22-30) mmol/L BUN 31 H (7-17) mg/dL Creatinine 1.08 H (0.52-1.04) mg/dL Glucose 111 H (74-99) mg/dL POC Glucose (mg/dL) 295 H (75-99) mg/dL Calcium 8.1 L (8.4-10.2) mg/dL Total Protein 6.0 L (6.3-8.2) g/dL Albumin 3.2 L (3.5-5.0) g/dL Crossmatch Assessment and Plan Assessment: GI bleed, status post 1 unit of PRBCs. Initial hemoglobin 6.8. Receiving a second unit today. Hemoglobin 7.0. History of prior GI bleed, secondary to duodenal AV malformation. Fluid overload/CHF, likely secondary to transfusion of PRBCs. COPD, not particularly active at this time. Morbid obesity. History of diabetes mellitus. Prior history of GI bleed. History of pneumonia. Chronic hypoxemic respiratory failure, on chronic nocturnal BiPAP therapy. Diabetic neuropathy. Valvular heart disease. Obstructive sleep apnea syndrome. History of hypothyroidism. Previous history of heavy tobacco use. History of depression. Plan: The patient was seen and evaluated by Dr. Dr. Wynne Continue with her pulmonary medications GI services recommending transferred back to [place] Possible dedicated small bowel study with balloon enteroscopy Receiving his second unit of packed red blood cells today. If not transferred we'll continue to follow I, the cosigning physician, performed a history & physical examination of the patient. Lungs sounds with bilateral end expiratory wheeze, diminished. Maintaining good O2 saturations in the 90s on 3 L/m per nasal cannula. I discussed the assessment and plan of care with my nurse practitioner, Margoth Enriquez. I attest to the above note as dictated by her.
--- NOTE | 2020-08-03 14:50 | P.CRDCN ---
History of Present Illness Consult date: 08/03/20 Consult reason: congestive heart failure History of present illness: The patient is a 65-year-old female with multiple comorbid conditions, who fo llows with Dr. Yang in the office. The patient presented with abrupt onset of shortness of breath. She states this happens often when she is anemic. Hemoglobin on arrival was 7.4. She states her symptoms improved after having a blood transfusion and using BiPAP therapy. The patient is currently sitting comfortably in the recliner chair. She states she is not having any trouble breathing at rest. No chest pain or chest pressure. No dizziness or lightheadedness. She does have orthopnea and worsening lower extremity edema. DIAGNOSTICS: EKG shows sinus mechanism with nonspecific ST and T wave abnormalities Laboratory data shows WBC 11.3, hemoglobin 7.4, platelets 226, sodium 141, pot assium 4.1, BUN 29, creatinine 0.86, AST 25, ALT 15, troponin 0.069, BNP 4480 Echocardiogram from May 2020 shows LV function of 55-60% with grade 2 diastolic dysfunction, moderate aortic stenosis, mild mitral regurgitation, mild to moderate mitral stenosis and mild tricuspid regurgitation PAST MEDICAL HISTORY: Recurrent GI bleeding, COPD, hypertension, dyslipidemia, diabetes mellitus, aortic stenosis, mitral stenosis, congestive heart failure, morbid obesity REVIEW OF SYSTEMS: No fever or chills. No cough or expectoration. No diaphoresis. Patient denies headache, dizziness, blurred vision, double vision. Patient denies any stomach discomfort. No nausea, vomiting. No hematochezia. No hematemesis. Denies any black stools or blood in his stools. Denies dysuria or hematuria. No muscle weakness or numbness. PHYSICAL EXAMINATION: This is a 65-year-old female in no apparent distress at the time of my examination. HEENT: Head is atraumatic, normocephalic. Pupils are equal, round. Sclerae anicteric. Conjunctivae are clear. Mucous membranes of the mouth are moist. Neck is supple. There is no jugular venous distention. No carotid bruit is heard. CHEST EXAMINATION: Lungs are diminished to auscultation. No chest wall tenderness is noted on palpation or with deep breathing. HEART EXAMINATION: Heart regular rate and rhythm. S1, S2 heard. Harsh systolic murmur. No gallops or rub. ABDOMEN: Soft, nontender. Bowel sounds are heard. No organomegaly noted. EXTREMITIES: 2+ peripheral pulses. +2 peripheral edema. no calf tenderness noted. NEUROLOGIC EXAMINATION: Patient is awake, alert and oriented x3. FINAL ASSESSMENT AND PLAN: #1 acute on chronic diastolic heart failure, elevated BNP #2 recurrent anemia secondary to blood loss, follows with gastroenterology at [place] #3 shortness of breath, congestive heart failure versus COPD #4 valvular heart disease, aortic and mitral stenosis #5 hypertension #6 dyslipidemia #7 obesity, BMI 51 PLAN: Continue IV diuresis Continue to monitor electrolytes and kidney function GI service recommending to be transferred to [place] Further recommendations will be based upon clinical course The patient has been seen and evaluated. Plan of care has been reviewed and agreed upon by Dr Moralez. Past Medical History Past Medical History: Heart Failure, COPD, Diabetes Mellitus, GI Bleed, Pn eumonia, Respiratory Disorder Additional Past Medical History / Comment(s): heart murmur, neuropathy, scope done Last Myocardial Infarction Date:: 2018 History of Any Multi-Drug Resistant Organisms: None Reported Date of last positivie culture/infection: 04/2019 MDRO Source:: URINE Past Surgical History: Section, Cholecystectomy, Heart Catheterization, Hysterectomy, Orthopedic Surgery Additional Past Surgical History / Comment(s): Gi cauterization 02/22/2020; heart cath 12/26/2019; cataracts removal, lens placement. FREQUENT BLOOD TRANFUSIONS Past Anesthesia/Blood Transfusion Reactions: Previous Problems w/ Anesthesia Additional Past Anesthesia/Blood Transfusion Reaction / Comment(s): ALLERGY TO CISATRACURIUM- FACE TURNED RED/SWOLLEN Past Psychological History: No Psychological Hx Reported Smoking Status: Never smoker Past Alcohol Use History: None Reported Past Drug Use History: None Reported - Past Family History Mother Family Medical History: Renal Disease Additional Family Medical History / Comment(s): Mother was on Hemodilaysis Medications and Allergies Home Medications Medication Instructions Recorded Confirmed Type Atorvastatin [Lipitor] 40 mg PO DAILY tab 08/03/20 Rx Budesonide-Formot 160-4.5 Mcg 2 puff INHALATION RT-BID puff 08/03/20 Rx [Symbicort 160-4.5 Mcg Inhaler] FLUoxetine HCL [PROzac] 20 mg PO DAILY cap 08/03/20 Rx INSULIN ASPART (NovoLOG) [NovoLOG 0 unit SQ ACHS vial 08/03/20 Rx (formulary)] Insulin Detemir (Levemir) [Levemir] 15 unit SQ BID@0700,2100 syr 08/03/20 Rx Ipratropium-Albuterol Nebulize 3 ml INHALATION RT-QID ml 08/03/20 Rx [Duoneb 0.5 mg-3 mg/3 ml Soln] Isosorbide Mononitrate ER [Imdur] 30 mg PO DAILY tab.er.24h 08/03/20 Rx Levothyroxine Sodium [Synthroid] 125 mcg PO DAILY@0630 tab 08/03/20 Rx Metoprolol Tartrate [Lopressor] 100 mg PO BID tab 08/03/20 Rx Montelukast [Singulair] 10 mg PO HS tab 08/03/20 Rx Potassium Chloride ER [K-Dur 10] 10 meq PO BID tab.er.prt 08/03/20 Rx Pregabalin [Lyrica] 200 mg PO BID cap 08/03/20 Rx SILVER sulfADIAZINE CREAM 1 applic TOPICAL DAILY applic 08/03/20 Rx [Silvadene Cream] Sennosides-Docusate Sodium 1 each PO BID PRN tab 08/03/20 Rx [Senokot-S] Spironolactone [Aldactone] 25 mg PO DAILY tab 08/03/20 Rx acetaZOLAMIDE [Diamox] 250 mg PO DAILY tab 08/03/20 Rx amLODIPine [Norvasc] 5 mg PO DAILY tab 08/03/20 Rx methocarbamoL [Robaxin] 500 mg PO BID PRN tab 08/03/20 Rx rOPINIRole HCL [Requip] 2 mg PO BID tab 08/03/20 Rx Allergies Allergy/AdvReac Type Severity Reaction Status Date / Time cisatracurium [From Nimbex] Allergy Rash/Hives Verified 08/02/20 08:39 Physical Exam Vitals: Vital Signs Temp Pulse Pulse Resp BP BP Pulse Ox 08/03/20 12:02 97.5 F L 76 20 109/59 93 L 08/03/20 11:56 97.5 F L 76 20 109/59 08/03/20 11:37 75 08/03/20 11:26 97.5 F L 62 20 110/59 97 08/03/20 11:16 97.4 F L 62 20 106/56 08/03/20 08:00 97.5 F L 67 20 110/54 98 08/03/20 07:57 75 08/03/20 07:46 75 97 08/03/20 03:58 97.9 F 62 18 120/67 93 L 08/03/20 02:34 19 08/02/20 23:49 97.9 F 65 19 116/59 93 L 08/02/20 20:05 97.6 F 78 18 126/74 92 L 08/02/20 19:43 80 08/02/20 19:35 80 08/02/20 17:26 20 91 L 08/02/20 16:07 80 08/02/20 16:00 98 F 74 20 136/74 99 08/02/20 15:55 80 Intake and Output 08/02/20 08/03/20 08/03/20 22:59 06:59 14:59 Intake Total 0 850 240 Output Total 500 1250 725 Balance -500 -400 -485 Intake: Oral 0 850 240 Blood Product 0 Rc As-1 Unit 0 [id number] Output: Urine 500 1250 725 Uretheral (Raphael) 500 Stool 0 Other: Voiding Method Indwelling Catheter Indwelling Catheter # Voids 0 # Bowel Movements 0 0 Weight 120.2 kg Results 08/03/20 07:11 08/03/20 07:11 Cardiac Enzymes 08/03/20 Range/Units 07:11 AST 22 (14-36) U/L CBC 08/02/20 08/02/20 08/03/20 Range/Units 17:35 23:37 07:11 WBC 12.6 H 11.3 H 13.2 H (3.8-10.6) k/uL RBC 3.03 L 2.91 L 2.84 L (3.80-5.40) m/uL Hgb 7.8 L 7.4 L 7.0 L (11.4-16.0) gm/dL Hct 25.9 L 25.0 L 25.1 L (34.0-46.0) % Plt Count 234 226 210 (150-450) k/uL Comprehensive Metabolic Panel 08/03/20 Range/Units 07:11 Sodium 139 (137-145) mmol/L Potassium 4.3 (3.5-5.1) mmol/L Chloride 96 L (98-107) mmol/L Carbon Dioxide 38 H (22-30) mmol/L BUN 31 H (7-17) mg/dL Creatinine 1.08 H (0.52-1.04) mg/dL Glucose 111 H (74-99) mg/dL Calcium 8.1 L (8.4-10.2) mg/dL AST 22 (14-36) U/L ALT 13 (4-34) U/L Alkaline Phosphatase 125 (38-126) U/L Total Protein 6.0 L (6.3-8.2) g/dL Albumin 3.2 L (3.5-5.0) g/dL Current Medications Generic Name Dose Route Start Last Admin Trade Name Freq PRN Reason Stop Dose Admin Acetazolamide 250 mg 08/02/20 09:00 08/03/20 08:24 Acetazolamide 250 Mg Tab PO 250 mg DAILY SARATH Administration Albuterol/Ipratropium 3 ml 08/02/20 12:00 08/03/20 11:26 Ipratropium-Albuterol 3 Ml Neb INHALATION 3 ml RT-QID SARATH Administration Amlodipine Besylate 5 mg 08/02/20 09:00 08/03/20 12:36 Amlodipine 5 Mg Tab PO 5 mg DAILY SARATH Administration Atorvastatin Calcium 40 mg 08/02/20 09:00 08/03/20 08:23 Atorvastatin 40 Mg Tab PO 40 mg DAILY SARATH Administration Budesonide/Formoterol Fumarate 2 puff 08/02/20 20:00 08/03/20 07:45 Symbicort 160-4.5 Mcg Inhaler INHALATION 2 puff RT-BID SARATH Administration Fluoxetine HCl 20 mg 08/02/20 09:00 08/03/20 08:23 Fluoxetine Hcl 20 Mg Cap PO 20 mg DAILY SARATH Administration Furosemide 80 mg 08/02/20 21:15 08/03/20 08:24 Furosemide 10 Mg/Ml 10 Ml Vial IV 80 mg Q12HR SARATH Administration Hydromorphone HCl 0.5 mg 08/02/20 02:33 Hydromorphone 0.5 Mg/0.5 Ml Syringe IVP Q3HR PRN Moderate Pain Insulin Aspart 0 unit 08/02/20 12:30 08/03/20 12:35 Insulin Aspart (Novolog) 100 Unit/Ml Vial SQ 7 unit ACHS SARATH Administration Protocol Insulin Detemir 15 unit 08/02/20 09:00 08/03/20 08:24 Insulin Detemir (Levemir) 100 Unit/Ml Syr SQ 15 unit BID@0700,2100 SARATH Administration Isosorbide Mononitrate 30 mg 08/02/20 09:00 08/03/20 08:23 Isosorbide Mononitrate Er 30 Mg Tab.Er.24h PO 30 mg DAILY SARATH Administration Levothyroxine Sodium 125 mcg 08/02/20 09:00 08/03/20 06:38 Levothyroxine 125 Mcg Tab PO 125 mcg DAILY@0630 SARATH Administration Methocarbamol 500 mg 08/02/20 08:19 Methocarbamol 500 Mg Tab PO BID PRN Muscle Spasm Metoprolol Tartrate 100 mg 08/02/20 09:00 08/03/20 08:23 Metoprolol Tartrate 50 Mg Tab PO 100 mg BID SARATH Administration Montelukast Sodium 10 mg 08/02/20 21:00 08/02/20 23:46 Montelukast 10 Mg Tab PO Not Given HS SARATH Naloxone HCl 0.2 mg 08/02/20 02:33 Naloxone 0.4 Mg/Ml 1 Ml Vial IV Q2M PRN Opioid Reversal Ondansetron HCl 4 mg 08/02/20 02:33 08/03/20 10:57 Ondansetron 4 Mg/2 Ml Vial IVP 4 mg Q8HR PRN Administration Nausea And Vomiting Pantoprazole Sodium 40 mg 08/02/20 09:00 08/03/20 08:25 Pantoprazole 40 Mg/10 Ml Vial IV 40 mg BID SARATH Administration Potassium Chloride 10 meq 08/02/20 09:00 08/03/20 08:23 Potassium Chloride Er 10 Meq Tab.Er.Prt PO 10 meq BID SARATH Administration Pregabalin 200 mg 08/02/20 09:00 08/03/20 08:24 Pregabalin 100 Mg Cap PO 200 mg BID SARATH Administration Ropinirole HCl 2 mg 08/02/20 09:00 08/03/20 08:24 Ropinirole Hcl 1 Mg Tab PO 2 mg BID SARATH Administration Senna/Docusate Sodium 1 each 08/02/20 08:19 Sennosides-Docusate Sodium 1 Each Tab PO BID PRN Constipation Silver Sulfadiazine 1 applic 08/02/20 09:00 08/02/20 13:00 Silver Sulfadiazine 1% Cream 25 Gm Tube TOPICAL 1 applic DAILY SARATH Administration Spironolactone 25 mg 08/02/20 09:00 08/03/20 08:24 Spironolactone 25 Mg Tab PO 25 mg DAILY SARATH Administration Intake and Output 08/02/20 08/03/20 08/03/20 22:59 06:59 14:59 Intake Total 0 850 240 Output Total 500 1250 725 Balance -500 -400 -485 Intake: Oral 0 850 240 Blood Product 0 Rc As-1 Unit 0 [id number] Output: Urine 500 1250 725 Uretheral (Raphael) 500 Stool 0 Other: Voiding Method Indwelling Catheter Indwelling Catheter # Voids 0 # Bowel Movements 0 0 Weight 120.2 kg 08/03/20 07:11 08/03/20 07:11
--- NOTE | 2020-08-03 16:29 | P.PN ---
Subjective Progress Note Date: 08/03/20 Principal diagnosis: anemia, GI bleed patient is seen sitting bedside today reporting that her breathing is improved. No bowel movements or blood per rectum today. Hemoglobin was found to be depressed as 7.0 this morning and one additional unit of packed red blood cells as ordered. Objective - Vital Signs Vital signs: Vital Signs Temp 97.5 F L 08/03/20 08:00 Pulse 67 08/03/20 08:00 Resp 20 08/03/20 08:00 BP 110/54 08/03/20 08:00 Pulse Ox 98 08/03/20 08:00 Intake & Output 08/02/20 08/03/20 08/03/20 18:59 06:59 18:59 Intake Total 600 850 Output Total 600 1750 Balance 0 -900 Weight 120.1 kg 120.2 kg Intake: Oral 600 850 Output: Urine 600 1750 Uretheral (Raphael) 500 Stool 0 Other: Voiding Method Indwelling Catheter # Voids 0 # Bowel Movements 0 0 - Exam On physical examination, patient appears comfortable in no apparent distress. HEAD: Normocephalic, atraumatic. EYES: No scleral icterus. No conjunctival injection. MOUTH: No lesions, tongue midline. NECK: Trachea midline, no gross abnormalities. CHEST: decreased air entry in all lung phelps ABDOMEN: Soft, obese. Bowel sounds are positive. No organomegaly. No guarding or rigidity. EXTREMITIES: bilateral pedal edema. SKIN: No rashes, no jaundice. NEUROLOGIC: Alert and oriented x3. No focal deficits. - Labs CBC & Chem 7: 08/03/20 07:11 08/03/20 07:11 Labs: Abnormal Lab Results - Last 24 Hours (Table) 08/02/20 08/02/20 08/02/20 Range/Units 00:50 07:15 10:39 WBC 12.6 H (3.8-10.6) k/uL RBC 3.08 L (3.80-5.40) m/uL Hgb 7.7 L (11.4-16.0) gm/dL Hct 26.2 L (34.0-46.0) % MCH (25.0-35.0) pg MCHC 29.4 L (31.0-37.0) g/dL RDW 18.3 H (11.5-15.5) % Neutrophils # 9.6 H (1.3-7.7) k/uL Neutrophils # (Manual) (1.3-7.7) k/uL Monocytes # 1.2 H (0-1.0) k/uL Monocytes # (Manual) (0-1.0) k/uL Eosinophils # (Manual) (0-0.7) k/uL Myelocytes # (Manual) (0) k/uL Nucleated RBCs (0-0) /100 WBC ABG pH (7.35-7.45) ABG pCO2 (35-45) mmHg ABG pO2 (83-108) mmHg ABG HCO3 (21-25) mmol/L ABG Total CO2 (19-24) mmol/L Chloride (98-107) mmol/L Carbon Dioxide (22-30) mmol/L BUN (7-17) mg/dL Creatinine (0.52-1.04) mg/dL Glucose (74-99) mg/dL POC Glucose (mg/dL) (75-99) mg/dL Calcium (8.4-10.2) mg/dL Total Protein (6.3-8.2) g/dL Albumin (3.5-5.0) g/dL Procalcitonin 0.13 H (0.02-0.09) ng/mL Crossmatch See Detail 08/02/20 08/02/20 08/02/20 Range/Units 11:35 16:39 17:35 WBC 12.6 H (3.8-10.6) k/uL RBC 3.03 L (3.80-5.40) m/uL Hgb 7.8 L (11.4-16.0) gm/dL Hct 25.9 L (34.0-46.0) % MCH (25.0-35.0) pg MCHC 30.2 L (31.0-37.0) g/dL RDW 18.2 H (11.5-15.5) % Neutrophils # (1.3-7.7) k/uL Neutrophils # (Manual) 9.00 H (1.3-7.7) k/uL Monocytes # (0-1.0) k/uL Monocytes # (Manual) 1.76 H (0-1.0) k/uL Eosinophils # (Manual) 0.76 H (0-0.7) k/uL Myelocytes # (Manual) 0.13 H (0) k/uL Nucleated RBCs 1 H (0-0) /100 WBC ABG pH (7.35-7.45) ABG pCO2 (35-45) mmHg ABG pO2 (83-108) mmHg ABG HCO3 (21-25) mmol/L ABG Total CO2 (19-24) mmol/L Chloride (98-107) mmol/L Carbon Dioxide (22-30) mmol/L BUN (7-17) mg/dL Creatinine (0.52-1.04) mg/dL Glucose (74-99) mg/dL POC Glucose (mg/dL) 201 H 140 H (75-99) mg/dL Calcium (8.4-10.2) mg/dL Total Protein (6.3-8.2) g/dL Albumin (3.5-5.0) g/dL Procalcitonin (0.02-0.09) ng/mL Crossmatch 08/02/20 08/02/20 08/02/20 Range/Units 20:51 21:35 23:37 WBC 11.3 H (3.8-10.6) k/uL RBC 2.91 L (3.80-5.40) m/uL Hgb 7.4 L (11.4-16.0) gm/dL Hct 25.0 L (34.0-46.0) % MCH (25.0-35.0) pg MCHC 29.7 L (31.0-37.0) g/dL RDW 18.2 H (11.5-15.5) % Neutrophils # (1.3-7.7) k/uL Neutrophils # (Manual) 8.40 H (1.3-7.7) k/uL Monocytes # (0-1.0) k/uL Monocytes # (Manual) (0-1.0) k/uL Eosinophils # (Manual) (0-0.7) k/uL Myelocytes # (Manual) (0) k/uL Nucleated RBCs (0-0) /100 WBC ABG pH 7.25 L (7.35-7.45) ABG pCO2 82 H* (35-45) mmHg ABG pO2 72 L (83-108) mmHg ABG HCO3 36 H (21-25) mmol/L ABG Total CO2 39 H (19-24) mmol/L Chloride (98-107) mmol/L Carbon Dioxide (22-30) mmol/L BUN (7-17) mg/dL Creatinine (0.52-1.04) mg/dL Glucose (74-99) mg/dL POC Glucose (mg/dL) 137 H (75-99) mg/dL Calcium (8.4-10.2) mg/dL Total Protein (6.3-8.2) g/dL Albumin (3.5-5.0) g/dL Procalcitonin (0.02-0.09) ng/mL Crossmatch 08/02/20 08/03/20 08/03/20 Range/Units 23:42 00:10 06:00 WBC (3.8-10.6) k/uL RBC (3.80-5.40) m/uL Hgb (11.4-16.0) gm/dL Hct (34.0-46.0) % MCH (25.0-35.0) pg MCHC (31.0-37.0) g/dL RDW (11.5-15.5) % Neutrophils # (1.3-7.7) k/uL Neutrophils # (Manual) (1.3-7.7) k/uL Monocytes # (0-1.0) k/uL Monocytes # (Manual) (0-1.0) k/uL Eosinophils # (Manual) (0-0.7) k/uL Myelocytes # (Manual) (0) k/uL Nucleated RBCs (0-0) /100 WBC ABG pH (7.35-7.45) ABG pCO2 (35-45) mmHg ABG pO2 (83-108) mmHg ABG HCO3 (21-25) mmol/L ABG Total CO2 (19-24) mmol/L Chloride (98-107) mmol/L Carbon Dioxide (22-30) mmol/L BUN (7-17) mg/dL Creatinine (0.52-1.04) mg/dL Glucose (74-99) mg/dL POC Glucose (mg/dL) 69 L 101 H 143 H (75-99) mg/dL Calcium (8.4-10.2) mg/dL Total Protein (6.3-8.2) g/dL Albumin (3.5-5.0) g/dL Procalcitonin (0.02-0.09) ng/mL Crossmatch 08/03/20 08/03/20 Range/Units 07:11 07:11 WBC 13.2 H (3.8-10.6) k/uL RBC 2.84 L (3.80-5.40) m/uL Hgb 7.0 L (11.4-16.0) gm/dL Hct 25.1 L (34.0-46.0) % MCH 24.6 L (25.0-35.0) pg MCHC 27.8 L (31.0-37.0) g/dL RDW 17.9 H (11.5-15.5) % Neutrophils # (1.3-7.7) k/uL Neutrophils # (Manual) (1.3-7.7) k/uL Monocytes # (0-1.0) k/uL Monocytes # (Manual) (0-1.0) k/uL Eosinophils # (Manual) (0-0.7) k/uL Myelocytes # (Manual) (0) k/uL Nucleated RBCs (0-0) /100 WBC ABG pH (7.35-7.45) ABG pCO2 (35-45) mmHg ABG pO2 (83-108) mmHg ABG HCO3 (21-25) mmol/L ABG Total CO2 (19-24) mmol/L Chloride 96 L (98-107) mmol/L Carbon Dioxide 38 H (22-30) mmol/L BUN 31 H (7-17) mg/dL Creatinine 1.08 H (0.52-1.04) mg/dL Glucose 111 H (74-99) mg/dL POC Glucose (mg/dL) (75-99) mg/dL Calcium 8.1 L (8.4-10.2) mg/dL Total Protein 6.0 L (6.3-8.2) g/dL Albumin 3.2 L (3.5-5.0) g/dL Procalcitonin (0.02-0.09) ng/mL Crossmatch Assessment and Plan (1) Anemia Narrative/Plan: 65-year-old female with multiple medical comorbidities including prior GI bleed with multiple endoscopies in the past year including a locally on 05/2020 with 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 where she reports push enteroscopy with treatment of angiectasia and presented for shortness of breath. Chest x-ray suggestive of fluid overload from congestive heart failure. Anemia likely multifactorial given known history of small bowel GI bleeding as well as likely component of anemia of chronic disease hemoglobin 7.0 this morning with one additional unit of packed red blood cells ordered.. Current Visit: Yes Status: Acute Code(s): D64.9 - ANEMIA, UNSPECIFIED SNOMED Code(s): 150599125 (2) GI bleed Current Visit: Yes Status: Acute Code(s): K92.2 - GASTROINTESTINAL HEMORRHAGE, UNSPECIFIED SNOMED Code(s): 97565085 (3) Melena Current Visit: No Status: Acute Code(s): K92.1 - MELENA SNOMED Code(s): 2670333 Plan: Supportive care Clear liquid diet Continue to monitor CBC and transfuse as needed Continue to monitor for signs or symptoms of GI bleed Continue Protonix therapy attempt was made by the primary team to transfer the patient back to [facility] where she underwent small bowel endoscopy previously however facility does not currently have presents to accommodate her, if the patient's he has not transferred we will plan to board her for a push enteroscopy when stable from a cardiopulmonary standpoint Thank you for allowing us to participate in the care of the patient
[2020-08-03 16:35] LABS: Glucose,Whole Blood 202 mg/dL (75-99)
[2020-08-03 20:08] LABS: Glucose,Whole Blood 205 mg/dL (75-99)
[2020-08-03] MEDS: MONTELUKAST 10 MG TAB PO SCH (20:19)
[2020-08-03] MEDS: HYDROmorphone 0.5 MG/0.5 ML SYRINGE IVP PRN (20:20)
[2020-08-04] MEDS: LEVOTHYROXINE 125 MCG TAB PO SCH (07:01)
[2020-08-04 07:43] LABS: Albumin 3.3 g/dL (3.5-5.0); Calcium 8.3 mg/dL (8.4-10.2); Potassium 5.5 mmol/L (3.5-5.1); Total Bilirubin 0.5 mg/dL (0.2-1.3); Total Protein 6.1 g/dL (6.3-8.2)
[2020-08-04] MEDS: SYMBICORT 160-4.5 MCG INHALER INHALATION SCH ×2 (08:10→20:31)
[2020-08-04] MEDS: IPRATROPIUM-ALBUTEROL 3 ML NEB INHALATION SCH ×4 (08:10→20:31)
[2020-08-04] MEDS: INSULIN ASPART (NovoLOG) 100 UNIT/ML VIAL SQ SCH ×4 (08:12→20:55)
[2020-08-04] MEDS: INSULIN DETEMIR (LEVEMIR) 100 UNIT/ML SYR SQ SCH ×2 (08:12→20:54)
[2020-08-04] MEDS: PANTOPRAZOLE 40 MG/10 ML VIAL IV SCH ×2 (09:30→20:54)
[2020-08-04] MEDS: FUROSEMIDE 10 MG/ML 10 ML VIAL IV SCH ×2 (09:30→20:54)
[2020-08-04] MEDS: ONDANSETRON 4 MG/2 ML VIAL IVP PRN (09:30)
[2020-08-04] MEDS: PREGABALIN 100 MG CAP PO SCH ×2 (09:39→20:55)
[2020-08-04] MEDS: FLUoxetine HCL 20 MG CAP PO SCH (09:40)
[2020-08-04] MEDS: ATORVASTATIN 40 MG TAB PO SCH (09:40)
[2020-08-04] MEDS: amLODIPine 5 MG TAB PO SCH (09:40)
[2020-08-04] MEDS: POTASSIUM CHLORIDE ER 10 MEQ TAB.ER.PRT PO SCH ×2 (09:40→20:55)
[2020-08-04] MEDS: ISOSORBIDE MONONITRATE ER 30 MG TAB.ER.24H PO SCH (09:40)
[2020-08-04] MEDS: METOPROLOL TARTRATE 50 MG TAB PO SCH ×2 (09:40→20:55)
[2020-08-04] MEDS: SPIRONOLACTONE 25 MG TAB PO SCH (09:40)
[2020-08-04] MEDS: acetaZOLAMIDE 250 MG TAB PO SCH (09:40)
[2020-08-04 09:54] LABS: Anisocytosis Slight; HCT 26.4 % (34.0-46.0); HGB 7.9 gm/dL (11.4-16.0); Hypochromasia Marked; MCH 26.3 pg (25.0-35.0); MCHC 29.8 g/dL (31.0-37.0); MCV 88.2 fL (80.0-100.0); Mean Platelet Volume 7.8; Platelet Count 195 k/uL (150-450); Poikilocytosis Marked; RBC 2.99 m/uL (3.80-5.40); WBC 14.7 k/uL (3.8-10.6)
--- NOTE | 2020-08-04 10:01 | P.PN ---
Subjective Progress Note Date: 08/04/20 This is a obese 65-year-old female, with a history of congestive heart failure, COPD, diabetes, who presents to the emergency department on Aug.02, at 11 minutes after midnight, complaining of increasing shortness of breath, and gastrointestinal bleed. She apparently was recently at [facility], and had a procedure to cauterize the bleeding vessels. She also received blood transfusions at that time. More recently, over the last 24 hours, she became more short of breath. This typically occurs when her hemoglobin is low. Her last hemoglobin was 8.6, a week ago at her doctor's office. She admitted to Black stools, and upper abdominal pain. In addition, she had shortness of breath particularly on exertion. She denied any chest pain, dizziness, or weakness. She has been using her home oxygen at 2 L. She denies any nausea, vomiting, or diarrhea. She denies any genitourinary complaints. Apparently, the patient received 1 unit of PRBCs, and Lasix after that because of shortness of breath. According to the nurse Lola, the patient is on 6 L nasal cannula. The patient does have significant lower extremity edema. The patient did not look particularly short of breath. White count is 12.6, hemoglobin 7.7, hematocrit 26.2, and platelet count 266,000. PT, INR, PTT are all normal. Sodium 141, potassium 4.1, chlorides 99, CO2 37, anion gap 5, BUN 29, creatinine 0.86. The patient's troponin was 0.069, with an N-terminal proBNP that was 4480. Chest x-ray, and my opinion, is consistent with fluid overload/CHF. The patient is seen today 08/03/2020 in follow-up on the selective care unit. She is currently sitting up in a chair at the bedside. Awake and alert in no ac cheryl distress. She denies any worsening shortness of breath, cough or congestion. She is maintaining O2 saturation in the 90s on 3 L/m per nasal cannula. She's afebrile. Hemodynamically stable. She is receiving her second unit of packed blood cells. Current hemoglobin 7.0. White count 13.2. P latelets 210. Sodium 139. Potassium 4.3. Creatinine 1.08. She remains on Symbicort, Singulair, DuoNeb inhalations. Lasix 80 mg IV every 12 hours along with Aldactone. On 08/04/2020 the patient is sitting up on a chair. She is doing well. No bleeding overnight. Overall, she received a total of 2 units of packed RBC and hemoglobin today is at 7.9. The plan is to transfer this patient to [facility] for further intervention regarding her recurrent upper GI bleeding. She is on 4 L of oxygen by nasal cannula. No chest pain. No fever. No chills.. Her creatinine is up to 1.2. Otherwise, she is doing well. She has chronic edema lower extremities. Objective - Vital Signs Vital signs: Vital Signs Temp 97.9 F 08/04/20 04:00 Pulse 80 08/04/20 08:24 Resp 22 08/04/20 04:00 BP 106/64 08/04/20 04:00 Pulse Ox 92 L 08/03/20 23:36 Intake & Output 08/03/20 08/04/20 08/04/20 18:59 06:59 18:59 Intake Total 790 250 Output Total 1175 580 Balance -385 -330 Weight 122.5 kg Intake: Oral 480 250 Blood Product 310 Rc As-1 Unit 310 [id number] Output: Urine 1175 580 Other: Voiding Method Indwelling Catheter Indwelling Catheter - Exam GENERAL EXAM: Alert, pleasant, obese 65-year-old female patient, on 4 L nasal cannula, comfortable in no apparent distress. HEAD: Normocephalic. EYES: Normal reaction of pupils, equal size. NOSE: Clear with pink turbinates. THROAT: No erythema or exudates. NECK: No masses, no JVD. CHEST: No chest wall deformity. LUNGS: Equal air entry with bilateral end expiratory wheeze, diminished. CVS: S1 and S2 normal with no audible murmur, regular rhythm. ABDOMEN: No hepatosplenomegaly, normal bowel sounds, no guarding or rigidity. SPINE: No scoliosis or deformity SKIN: No rashes CENTRAL NERVOUS SYSTEM: No focal deficits, tone is normal in all 4 extremities. EXTREMITIES: There is 1-2+ peripheral edema. No clubbing, no cyanosis. Peripheral pulses are intact. - Labs CBC & Chem 7: 08/04/20 06:35 08/04/20 06:35 Labs: Abnormal Lab Results - Last 24 Hours (Table) 08/02/20 08/03/20 08/03/20 Range/Units 00:50 11:35 16:33 WBC (3.8-10.6) k/uL RBC (3.80-5.40) m/uL Hgb (11.4-16.0) gm/dL Hct (34.0-46.0) % MCHC (31.0-37.0) g/dL RDW (11.5-15.5) % Potassium (3.5-5.1) mmol/L Chloride (98-107) mmol/L Carbon Dioxide (22-30) mmol/L BUN (7-17) mg/dL Creatinine (0.52-1.04) mg/dL Glucose (74-99) mg/dL POC Glucose (mg/dL) 295 H 202 H (75-99) mg/dL Calcium (8.4-10.2) mg/dL Alkaline Phosphatase (38-126) U/L Total Protein (6.3-8.2) g/dL Albumin (3.5-5.0) g/dL Crossmatch See Detail 08/03/20 08/04/20 08/04/20 Range/Units 20:07 06:35 06:35 WBC 14.7 H (3.8-10.6) k/uL RBC 2.99 L (3.80-5.40) m/uL Hgb 7.9 L (11.4-16.0) gm/dL Hct 26.4 L (34.0-46.0) % MCHC 29.8 L (31.0-37.0) g/dL RDW 18.0 H (11.5-15.5) % Potassium 5.5 H (3.5-5.1) mmol/L Chloride 94 L (98-107) mmol/L Carbon Dioxide 37 H (22-30) mmol/L BUN 33 H (7-17) mg/dL Creatinine 1.21 H (0.52-1.04) mg/dL Glucose 175 H (74-99) mg/dL POC Glucose (mg/dL) 205 H (75-99) mg/dL Calcium 8.3 L (8.4-10.2) mg/dL Alkaline Phosphatase 128 H (38-126) U/L Total Protein 6.1 L (6.3-8.2) g/dL Albumin 3.3 L (3.5-5.0) g/dL Crossmatch Assessment and Plan Plan: 1 Recurrent GI bleed, Initial hemoglobin 6.8. Receiving 2 units of RBC, hemoglobin is up to 7.9 and the patient has not shown any signs of bleeding. The plan is to transfer this patient to [facility] for further intervention 2 History of prior GI bleed, secondary to duodenal AV malformation. 3 Fluid overload/CHF, likely secondary to transfusion of PRBCs. 4 COPD, not particularly active at this time. the patient has chronic hypoxic respiratory failure and she is currently on 4 L about 2 by nasal cannula and she has home O2. 5 Morbid obesity. 6 History of diabetes mellitus. 7 Prior history of GI bleed. 8 History of pneumonia. 9 Chronic hypoxemic respiratory failure, on chronic nocturnal BiPAP therapy. 10 Diabetic neuropathy. 11 Valvular heart disease. 12 Obstructive sleep apnea syndrome. 13 History of hypothyroidism. 14 Previous history of heavy tobacco use. 15 History of depression. 16 chronic lower extremity edema and the patient is taking Lasix 40 mg twice a day Plan: Continue with her pulmonary medications GI services recommending transferred back to [place] Possible dedicated small bowel study with balloon entereceived a total of 2 units of packed RBC and the patient's hemoglobin is stable without any further bouts of bleeding not transferred we'll continue to follow
[2020-08-04] MEDS: SENNOSIDES 8.6 MG TAB PO SCH ×2 (10:58→20:55)
[2020-08-04] MEDS: metOLazone 2.5 MG TAB PO SCH (10:58)
[2020-08-04 12:08] LABS: Glucose,Whole Blood 232 mg/dL (75-99)
--- NOTE | 2020-08-04 15:12 | P.PN ---
Subjective Progress Note Date: 08/04/20 Principal diagnosis: GI bleed, anemia Patient seen and examined sitting up in her recliner. She appears in no acute distress. However she feeling fatigued and weak. She denies any further episodes of black tarry stools. States that she had 3-4 episodes prior to her admission to this hospital. States she has not had any outside follow-up with [facility]. She denies any nausea, vomiting or abdominal pain.she is on 4 L of nasal cannula, uses her BiPAP at night. Objective - Vital Signs Vital signs: Vital Signs Temp 97.9 F 08/04/20 04:00 Pulse 80 08/04/20 08:24 Resp 22 08/04/20 04:00 BP 106/64 08/04/20 04:00 Pulse Ox 92 L 08/03/20 23:36 Intake & Output 08/03/20 08/04/20 08/04/20 18:59 06:59 18:59 Intake Total 790 250 240 Output Total 1175 580 Balance -385 -330 240 Weight 122.5 kg Intake: Oral 480 250 240 Blood Product 310 Rc As-1 Unit 310 [id number] Output: Urine 1175 580 Other: Voiding Method Indwelling Catheter Indwelling Catheter - Exam General appearance: The patient is alert, oriented, appears in no acute distress. Morbidly obese HET: Head is normocephalic and atraumatic. Conjunctiva pink. Sclera and icteric. Neck: Supple without lymphadenopathy. Abdomen: Soft, obese, nontender, nondistended with bowel sounds. No guarding or rigidity. Extremities: Normal skin color and turgor. Bilateral pedal edema Neurological: No focal deficits. Alert and oriented 3. - Labs CBC & Chem 7: 08/04/20 06:35 08/04/20 06:35 Labs: Abnormal Lab Results - Last 24 Hours (Table) 08/02/20 08/03/20 08/03/20 Range/Units 00:50 11:35 16:33 WBC (3.8-10.6) k/uL RBC (3.80-5.40) m/uL Hgb (11.4-16.0) gm/dL Hct (34.0-46.0) % MCHC (31.0-37.0) g/dL RDW (11.5-15.5) % Potassium (3.5-5.1) mmol/L Chloride (98-107) mmol/L Carbon Dioxide (22-30) mmol/L BUN (7-17) mg/dL Creatinine (0.52-1.04) mg/dL Glucose (74-99) mg/dL POC Glucose (mg/dL) 295 H 202 H (75-99) mg/dL Calcium (8.4-10.2) mg/dL Alkaline Phosphatase (38-126) U/L Total Protein (6.3-8.2) g/dL Albumin (3.5-5.0) g/dL Crossmatch See Detail 08/03/20 08/04/20 08/04/20 Range/Units 20:07 06:35 06:35 WBC 14.7 H (3.8-10.6) k/uL RBC 2.99 L (3.80-5.40) m/uL Hgb 7.9 L (11.4-16.0) gm/dL Hct 26.4 L (34.0-46.0) % MCHC 29.8 L (31.0-37.0) g/dL RDW 18.0 H (11.5-15.5) % Potassium 5.5 H (3.5-5.1) mmol/L Chloride 94 L (98-107) mmol/L Carbon Dioxide 37 H (22-30) mmol/L BUN 33 H (7-17) mg/dL Creatinine 1.21 H (0.52-1.04) mg/dL Glucose 175 H (74-99) mg/dL POC Glucose (mg/dL) 205 H (75-99) mg/dL Calcium 8.3 L (8.4-10.2) mg/dL Alkaline Phosphatase 128 H (38-126) U/L Total Protein 6.1 L (6.3-8.2) g/dL Albumin 3.3 L (3.5-5.0) g/dL Crossmatch Assessment and Plan (1) Anemia Narrative/Plan: 65-year-old female with multiple medical comorbidities including prior GI bleed with multiple endoscopies in the past year including a locally on 05/2020 with 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 Chest x-ray suggestive of fluid overload from congestive heart failure. Anemia likely multifactorial given known history of small bowel GI bleeding as well as likely component of anemia of chronic disease hemoglobin 7.0 this morning with one additional unit of packed red blood cells ordered.. Current Visit: Yes Status: Acute Code(s): D64.9 - ANEMIA, UNSPECIFIED SNOMED Code(s): 365686324 (2) GI bleed Current Visit: Yes Status: Acute Code(s): K92.2 - GASTROINTESTINAL HEMORRHAGE, UNSPECIFIED SNOMED Code(s): 53965149 (3) Melena Current Visit: No Status: Acute Code(s): K92.1 - MELENA SNOMED Code(s): 3288659 Plan: Supportive care Nothing by mouth after midnight Patient scheduled for push enteroscopy tomorrow Continue to monitor CBC and transfuse as needed Continue to monitor for signs or symptoms of GI bleed Continue Protonix therapy Thank you for allowing us to participate in the care of the patient I agree with the dictator's note, documented as a scribe by Cinthya Montoya.
--- NOTE | 2020-08-04 15:33 | P.PN ---
Subjective Progress Note Date: 08/04/20 History of present illness This is a pleasant 65-year-old female with past medical history significant for heart failure, COPD, diabetes, GI bleed with anemia presented to the emergency department yesterday with for evaluation of increased shortness of breath. Patient has frequent upper GI bleeds her last hospitalization she was transferred to [place] where it was found to have angiodysplasia. Patient states that she had cauterization of the bleeds at [place]. She also received multiple blood transfusions. Yesterday patient had increased shortness of breath that she states usually occurs when her hemoglobin decreases. Her last hemoglobin in her doctor's office was 8.6 last week. She is reporting black tarry stools and upper gastric pain. Patient denies chest pain. Patient reports dizziness and weakness. She does wear O2 at 2 L at home. Patient is found sitting up in bed with a nonrebreather in place. She is given 40 of Lasix due to increased shortness of breath. Awaiting GI consult and possible transfer to [place]. Patient states that her bleeding did not stop after her last cauterization. Blood pressure 118/56, pulse rate 82, respirati ons 24, 100% on a nonrebreather. WC 12.9, hemoglobin 7.6, potassium 4.1, B UN 29, creatinine 0.86 08/03: Patient had 1 unit of packed red blood cells transfused. Hemoglobin this morning was 7.0 which is down from 7.4 after the last transfusion. We will order an additional 1 unit of packed red blood cells. Transfer to [facility] was in place. However the transfer was rejected by receiving hospital - transfer was not necessary and no beds. If hemoglobin continues to trend down and we will continue to work for transfer. In 06/03/2020 patient had cauterization of proximal small bowel angiodysplasia. On 06/30/2019 patient was found to be anemic and sent to [place] for balloon enteroscopy which time she reports cauterization of bleeding angiectasia. While at home patient continued to have dark stools. At this time patient is found to be sitting up in a chair in no acute distress. Patient is currently on 4 L of nasal cannula past flexing 98%. Patient states that her breathing is much better. She denies any dark stools at this time. 08/04: Patient states that her breathing is sketchy. She is normally on 2 L nasal cannula at home. Repeat chest x-ray will be ordered for the morning. She states she has not had a bowel movement. She has increased generalized edema. GI is planning for push enteroscopy tomorrow. She is afebrile, heart rate 80, blood pressure 112/63, pulse ox 93% on 4 L nasal cannula. The PVC 14.7, hemoglobin 7.9, platelet 195. Sodium 137, potassium 5.5, chloride 94, CO2 37, BUN 33 and creatinine 1.21. Blood sugars running between 175 and 232. TSH 3.680. Review Of Systems: Constitutional: No fever, no chills, no night sweats. No weight change. Reports weakness and fatigue no lethargy. No daytime sleepiness. EENT: No headache. No blurred vision or double vision, no loss of vision. No loss of Hearing, no ringing in the ears, no dizziness. No nasal drainage or congestion. No epistaxis. No sore throat. Lungs: Improved shortness of breath, reports cough, no sputum production. No wheezing. Cardiovascular: No chest pain, no lower extremity edema. No palpitations. No paroxysmal nocturnal dyspnea. No orthopnea. No lightheadedness or dizziness. No syncopal episodes. Abdominal: reports epigastic pain. No nausea, vomiting. no diarrhea. No constipation. No bloody reports tarry stools. no loss of appetite. Genitourinary: No dysuria, increased frequency, urgency. No urinary retention. Musculoskeletal: No myalgias. No muscle weakness, no gait dysfunction, no frequent falls. No back pain. No neck pain. Integumentary: No wounds, no lesions. No rash or pruritus. No unusual bruising. No change in hair or nails. Neurologic: No aphasia. No facial droop. No change in mentation. No head injury. No headache. No paralysis. No paresthesia. Psychiatric: No depression. No anxiety. No mood swings. Endocrine: No abnormal blood sugars. No weight change. No excessive sweating or thirst. Physical examination General Appearance: Alert, cooperative, no distress, 65-year-old appears stated age. Neck HEENT: Supple, no lymphadenopathy, no thyroid enlargement, no carotid bruits. Lungs: Crackles throughout, no rhonchi, no deformity. Chest Wall: Chest wall normal expansion with deep inspiration no tenderness and no deformity was found on exam, no costochondral pain or discomfort. Heart: Regular rate and rhythm, S1, S2 normal, systolic murmur present, no rub or gallop. Back: Symmetric, no curvature, ROM normal, no CVA tenderness. Abdomen: epigastric tenderness Soft,, no rebound or rigidity, no hepatosplenomegaly. Extremities: Extremities normal, atraumatic, no cyanosis or edema. Pulses: 2+ and symmetric. Skin: Bilateral lower extremity vascular dermatitis Skin color, texture, tugor normal, no rashes or lesions. Neurologic: Alert oriented x3 cranial nerves II through XII intact, no motor deficit, no abnormal balance or gait Assessment and plan 1. Acute hypoxic respiratory distress secondary to anemia and CHF. consult pulmonology appreciated, monitor hemoglobin, 1 unit of packed red blood cells transfused. Additional unit of packed red blood cells ordered. Transfer to [place] was rejected. continue with DuoNeb, continue with oxygen support. Shortness of breath likely related to fluid overload rather than COPD. 2. Acute blood loss secondary to angiodysplasia, anemia. Consult GI appreciated, due to the need for balloon answers copy transferred is recommended. continue to monitor hemoglobin, continue Protonix 40 mg IV twice a day, Zofran 4 mg IV push every 8 hours and push endoscopy tomorrow 3. Chronic anemia, noted above 4. Exacerbation of congestive heart failure. Consult cardiology, Lasix 40 mg IV push every 12 hours, Therese door 10 mEq by mouth twice a day 5. COPD, consult pulmonology appreciated, continue DuoNeb, oxygen support Shortness of breath likely related to fluid overload rather than COPD. 6. Diabetes mellitus Levemir 15 units twice a day, NovoLog sliding scale continuous Accu-Cheks before meals at bedtime 7. Stage III chronic kidney disease continuous hydration and fluid restrictions 8. Hypertension continue amlodipine, metoprolol, and spironolactone 9. Hyperlipidemia atorvastatin 40 mg daily 10. Hypothyroidism continue levothyroxine 125 g daily 13. Obstructive sleep apnea has CPAP at home 14. Chronic pain management. Remain on hydrocodone and Lyrica 16. History of depression continue Prozac 17. Vascular dermatitis , apply Silvadene cream and wrap with Neftali wrap daily. No concern for infection 18. Restless leg syndrome: Requip 2 mg twice a day 19. GI prophylaxis continuous Protonix 20. DVT prophylaxis pneumatic compression stockings Discharge plan: Possible transfer to tertiary facility Impression and plan of care have been directed as dictated by the signing physician. Clarice Colón nurse practitioner acting as scribe for signing physician. Objective - Vital Signs Vital signs: Vital Signs Temp 97.9 F 08/04/20 04:00 Pulse 80 08/04/20 08:24 Resp 22 08/04/20 04:00 BP 106/64 08/04/20 04:00 Pulse Ox 92 L 08/03/20 23:36 Intake & Output 08/03/20 08/04/20 08/04/20 18:59 06:59 18:59 Intake Total 790 250 Output Total 1175 580 Balance -385 -330 Weight 122.5 kg Intake: Oral 480 250 Blood Product 310 Rc As-1 Unit 310 [id number] Output: Urine 1175 580 Other: Voiding Method Indwelling Catheter Indwelling Catheter - Labs CBC & Chem 7: 08/04/20 06:35 08/04/20 06:35 Labs: Abnormal Lab Results - Last 24 Hours (Table) 08/02/20 08/03/20 08/03/20 Range/Units 00:50 11:35 16:33 Potassium (3.5-5.1) mmol/L Chloride (98-107) mmol/L Carbon Dioxide (22-30) mmol/L BUN (7-17) mg/dL Creatinine (0.52-1.04) mg/dL Glucose (74-99) mg/dL POC Glucose (mg/dL) 295 H 202 H (75-99) mg/dL Calcium (8.4-10.2) mg/dL Alkaline Phosphatase (38-126) U/L Total Protein (6.3-8.2) g/dL Albumin (3.5-5.0) g/dL Crossmatch See Detail 08/03/20 08/04/20 Range/Units 20:07 06:35 Potassium 5.5 H (3.5-5.1) mmol/L Chloride 94 L (98-107) mmol/L Carbon Dioxide 37 H (22-30) mmol/L BUN 33 H (7-17) mg/dL Creatinine 1.21 H (0.52-1.04) mg/dL Glucose 175 H (74-99) mg/dL POC Glucose (mg/dL) 205 H (75-99) mg/dL Calcium 8.3 L (8.4-10.2) mg/dL Alkaline Phosphatase 128 H (38-126) U/L Total Protein 6.1 L (6.3-8.2) g/dL Albumin 3.3 L (3.5-5.0) g/dL Crossmatch
[2020-08-04 16:51] LABS: Glucose,Whole Blood 230 mg/dL (75-99)
[2020-08-04 20:04] LABS: Glucose,Whole Blood 186 mg/dL (75-99)
[2020-08-04] MEDS: MONTELUKAST 10 MG TAB PO SCH (20:55)
[2020-08-04] MEDS: methocarbamoL 500 MG TAB PO PRN (21:33)
[2020-08-05 06:17] LABS: Glucose,Whole Blood 240 mg/dL (75-99)
[2020-08-05] MEDS: INSULIN DETEMIR (LEVEMIR) 100 UNIT/ML SYR SQ SCH ×2 (06:37→21:05)
[2020-08-05] MEDS: INSULIN ASPART (NovoLOG) 100 UNIT/ML VIAL SQ SCH ×4 (06:37→21:05)
[2020-08-05] MEDS: LEVOTHYROXINE 125 MCG TAB PO SCH (06:37)
--- NOTE | 2020-08-05 07:43 | XR ---
EXAMINATION TYPE: XR chest 1V portable DATE OF EXAM: 08/05/2020 CLINICAL HISTORY: Difficulty breathing progress study. TECHNIQUE: Single AP portable upright view of the chest is obtained. COMPARISON: Chest x-ray from 3 days earlier FINDINGS: Persistent cardiomegaly with improving central vascular congestion. No new focal airspace opacity, pleural effusion, or pneumothorax. Osseous structures intact. IMPRESSION: Suspect resolving CHF exacerbation, correlate clinically.
[2020-08-05] MEDS: SYMBICORT 160-4.5 MCG INHALER INHALATION SCH ×2 (07:55→21:02)
[2020-08-05] MEDS: IPRATROPIUM-ALBUTEROL 3 ML NEB INHALATION SCH ×4 (07:55→21:02)
[2020-08-05 08:04] LABS: Anisocytosis Slight; HCT 25.8 % (34.0-46.0); HGB 7.6 gm/dL (11.4-16.0); Hypochromasia Marked; MCH 25.7 pg (25.0-35.0); MCHC 29.3 g/dL (31.0-37.0); MCV 87.8 fL (80.0-100.0); Mean Platelet Volume 9.1; Platelet Count 188 k/uL (150-450); Poikilocytosis Marked; RBC 2.94 m/uL (3.80-5.40); RDW 18.8 % (11.5-15.5); WBC 16.6 k/uL (3.8-10.6)
[2020-08-05 08:18] LABS: Albumin 3.3 g/dL (3.5-5.0); Calcium 8.9 mg/dL (8.4-10.2); Potassium 4.2 mmol/L (3.5-5.1); Total Bilirubin 0.5 mg/dL (0.2-1.3); Total Protein 6.3 g/dL (6.3-8.2)
[2020-08-05] MEDS: PANTOPRAZOLE 40 MG/10 ML VIAL IV SCH ×2 (08:59→21:03)
[2020-08-05] MEDS: FUROSEMIDE 10 MG/ML 10 ML VIAL IV SCH ×2 (08:59→21:03)
[2020-08-05] MEDS: ATORVASTATIN 40 MG TAB PO SCH (09:00)
[2020-08-05] MEDS: SENNOSIDES 8.6 MG TAB PO SCH ×2 (09:00→21:03)
[2020-08-05] MEDS: PREGABALIN 100 MG CAP PO SCH ×2 (09:00→21:04)
[2020-08-05] MEDS: FLUoxetine HCL 20 MG CAP PO SCH (09:00)
[2020-08-05] MEDS: acetaZOLAMIDE 250 MG TAB PO SCH (09:00)
[2020-08-05] MEDS: SPIRONOLACTONE 25 MG TAB PO SCH (09:00)
[2020-08-05] MEDS: ISOSORBIDE MONONITRATE ER 30 MG TAB.ER.24H PO SCH (09:00)
[2020-08-05] MEDS: amLODIPine 5 MG TAB PO SCH (09:00)
[2020-08-05] MEDS: POTASSIUM CHLORIDE ER 10 MEQ TAB.ER.PRT PO SCH ×2 (09:01→21:04)
[2020-08-05] MEDS: METOPROLOL TARTRATE 50 MG TAB PO SCH ×2 (09:01→21:03)
[2020-08-05] MEDS ORDERED: acetaZOLAMIDE 250 MG TAB PO ONE (10:45)
[2020-08-05] MEDS ORDERED: ETOMIDATE 2 MG/ML 10 ML VIAL ONE (11:11)
[2020-08-05] MEDS ORDERED: LIDOCAINE 1% INJ 10MG/ML (20 ML MDV) ONE (11:11)
[2020-08-05] MEDS ORDERED: LACTATED RINGERS 1,000 ML IV ONE ×2 (11:15)
--- NOTE | 2020-08-05 11:17 | P.PN ---
Subjective Progress Note Date: 08/05/20 This is a obese 65-year-old female, with a history of congestive heart failure, COPD, diabetes, who presents to the emergency department on Aug.02, at 11 minutes after midnight, complaining of increasing shortness of breath, and gastrointestinal bleed. She apparently was recently at [facility], and had a procedure to cauterize the bleeding vessels. She also received blood transfusions at that time. More recently, over the last 24 hours, she became more short of breath. This typically occurs when her hemoglobin is low. Her last hemoglobin was 8.6, a week ago at her doctor's office. She admitted to Black stools, and upper abdominal pain. In addition, she had shortness of breath particularly on exertion. She denied any chest pain, dizziness, or weakness. She has been using her home oxygen at 2 L. She denies any nausea, vomiting, or diarrhea. She denies any genitourinary complaints. Apparently, the patient received 1 unit of PRBCs, and Lasix after that because of shortness of breath. According to the nurse Lola, the patient is on 6 L nasal cannula. The patient does have significant lower extremity edema. The patient did not look particularly short of breath. White count is 12.6, hemoglobin 7.7, hematocrit 26.2, and platelet count 266,000. PT, INR, PTT are all normal. Sodium 141, potassium 4.1, chlorides 99, CO2 37, anion gap 5, BUN 29, creatinine 0.86. The patient's troponin was 0.069, with an N-terminal proBNP that was 4480. Chest x-ray, and my opinion, is consistent with fluid overload/CHF. The patient is seen today 08/03/2020 in follow-up on the selective care unit. She is currently sitting up in a chair at the bedside. Awake and alert in no acute distress. She denies any worsening shortness of breath, cough or congestion. She is maintaining O2 saturation in the 90s on 3 L/m per nasal cannula. She's afebrile. Hemodynamically stable. She is receiving her second unit of packed blood cells. Current hemoglobin 7.0. White count 13.2. Sarah telets 210. Sodium 139. Potassium 4.3. Creatinine 1.08. She remains on Symbicort, Singulair, DuoNeb inhalations. Lasix 80 mg IV every 12 hours along with Aldactone. On 08/04/2020 the patient is sitting up on a chair. She is doing well. No bleeding overnight. Overall, she received a total of 2 units of packed RBC and hemoglobin today is at 7.9. The plan is to transfer this patient to [facility] for further intervention regarding her recurrent upper GI bleeding. She is on 4 L of oxygen by nasal cannula. No chest pain. No fever. No chills.. Her creatinine is up to 1.2. Otherwise, she is doing well. She has chronic edema lower extremities. On August 05/2021, we came to see to selective care unit to see the patient in follow-up. No active bleeding overnight, today's hemoglobin is 16, down to 7.9, so far patient had received 2 units in packed red blood cell transfusion, on 08/02/2020 and 08/03/2020. Abdomen is soft, nontender, her breathing is at her baseline, she is on 4 L of oxygen, she did wear BiPAP support overnight sats of 96%, hemodynamically she is stable, afebrile, discharge planning was working on transfer to [facility] for GI evaluatio, however we are told that the patient was declined. Down for push enteroscopy today with Dr. Navarro. On IV Lasix 80 mg twice daily, and she is in -2 L fluid balance over the last 24 hours. Objective - Vital Signs Vital signs: Vital Signs Temp 97.2 F L 08/05/20 10:18 Pulse 67 08/05/20 10:18 Resp 18 08/05/20 10:18 BP 114/56 08/05/20 10:18 Pulse Ox 96 08/05/20 10:18 Intake & Output 08/04/20 08/05/20 08/05/20 18:59 06:59 18:59 Intake Total 540 Output Total 2350 280 Balance -1810 -280 Weight 122 kg Intake: Oral 540 Output: Urine 2350 280 Stool 0 Other: Voiding Method Indwelling Catheter Indwelling Catheter Indwelling Catheter # Voids 1 - Exam Patient was not examined, she has gone down to the endoscopy for a procedure - Labs CBC & Chem 7: 08/05/20 07:28 08/05/20 07:28 Labs: Abnormal Lab Results - Last 24 Hours (Table) 08/04/20 08/04/20 08/04/20 Range/Units 12:06 16:50 20:03 WBC (3.8-10.6) k/uL RBC (3.80-5.40) m/uL Hgb (11.4-16.0) gm/dL Hct (34.0-46.0) % MCHC (31.0-37.0) g/dL RDW (11.5-15.5) % Chloride (98-107) mmol/L Carbon Dioxide (22-30) mmol/L BUN (7-17) mg/dL Creatinine (0.52-1.04) mg/dL Glucose (74-99) mg/dL POC Glucose (mg/dL) 232 H 230 H 186 H (75-99) mg/dL Alkaline Phosphatase (38-126) U/L Albumin (3.5-5.0) g/dL 08/05/20 08/05/20 08/05/20 Range/Units 06:15 07:28 07:28 WBC 16.6 H (3.8-10.6) k/uL RBC 2.94 L (3.80-5.40) m/uL Hgb 7.6 L (11.4-16.0) gm/dL Hct 25.8 L (34.0-46.0) % MCHC 29.3 L (31.0-37.0) g/dL RDW 18.8 H (11.5-15.5) % Chloride 89 L (98-107) mmol/L Carbon Dioxide 46 H* (22-30) mmol/L BUN 31 H (7-17) mg/dL Creatinine 1.26 H (0.52-1.04) mg/dL Glucose 176 H (74-99) mg/dL POC Glucose (mg/dL) 240 H (75-99) mg/dL Alkaline Phosphatase 139 H (38-126) U/L Albumin 3.3 L (3.5-5.0) g/dL Assessment and Plan Plan: Assessment: 1 Recurrent GI bleed, Initial hemoglobin 6.8. Receiving 2 units of RBC, hemoglobin is up to 7.9 and the patient has not shown any signs of bleeding. The plan is to transfer this patient to [facility] for further intervention 2 History of prior GI bleed, secondary to duodenal AV malformation. 3 Fluid overload/CHF, likely secondary to transfusion of PRBCs. 4 COPD, not particularly active at this time. the patient has chronic hypoxic respiratory failure and she is currently on 4 L about 2 by nasal cannula and she has home O2. 5 Morbid obesity. 6 History of diabetes mellitus. 7 Prior history of GI bleed. 8 History of pneumonia. 9 Chronic hypoxemic respiratory failure, on chronic nocturnal BiPAP therapy. 10 Diabetic neuropathy. 11 Valvular heart disease. 12 Obstructive sleep apnea syndrome. 13 History of hypothyroidism. 14 Previous history of heavy tobacco use. 15 History of depression. 16 chronic lower extremity edema and the patient is taking Lasix 40 mg twice a day Plan: Continue Lasix, patient is maintaining negative fluid balance, no worsening dyspnea, continue bronchodilators, continue Diamox, today's labs have been reviewed, obtain follow-up labs for tomorrow. Patient is having enteroscopy procedure today, patient in follow-up later this afternoon I performed a history & physical examination of the patient and discussed their management with my nurse practitioner, Rika Hartley. I reviewed the nurse practitioner's note and agree with the documented findings and plan of care. Lung sounds are positive for diminished breath sounds. The findings and the impression was discussed with the patient. I attest to the documentation by the nurse practitioner. Time with Patient: Less than 30
--- NOTE | 2020-08-05 11:42 | P.PCN ---
Date of Procedure: 08/05/20 Description of Procedure: BRIEF HISTORY: 65-year-old female with multiple medical comorbidities including congestive heart failure, COPD, diabetes mellitus and multiple hospitalizations for GI bleeds from small bowel angiectasia who presented to the hospital due to shortness of breath. Patient was scoped locally on 06/03/2020 with cauterization of a proximal small bowel angiodysplasia. She was recently hospitalized a few weeks ago again found to be anemic and sent to [facility] for balloon enteroscopy at which time she reports cauterization of a bleeding angiectasia. Since discharge she is continued to note dark stool. She presented for shortness of breath and was felt to have fluid overload secondary to underlying congestive heart failure and is currently being diuresed. Her hemoglobin on presentation was 6.8. PROCEDURE PERFORMED: Push enteroscopy. PREOPERATIVE DIAGNOSIS: Anemia, melena. ESTIMATED BLOOD LOSS: Minimal. IV sedation per anesthesia. PROCEDURE: After informed consent was obtained, the patient was brought into the endoscopy unit. IV sedation was administered by Anesthesia under continuous monitoring. Initially the Olympus GIF-190 video endoscope was inserted into the mouth. Esophagus intubated without any difficulty. It was gradually advanced into the stomach and duodenum and to approximately 60 cm past the pylorus and the mucosa was carefully examined. The jejunum and duodenum both appeared normal, with no old blood, active bleeding or pathology to explain anemia. The scope at this time was withdrawn to the stomach, adequately insufflated with air, and upon careful examination, mucosa of the antrum, body, cardia and the fundus appeared normal, except for some mild scattered erythema suggestive of mild gastritis. The scope was then withdrawn into the esophagus. The GE junction was located at 39 cm from the incisors. The esophagus appeared normal. There were no erosions or ulcerations seen and the patient tolerated the procedure well. IMPRESSION: 1. No active bleeding, old blood or pathology to explain anemia. 2. Mild gastritis. RECOMMENDATIONS: The findings of this examination were discussed with the patient. Okay to resume diet. Okay to resume medications. Continue PPI therapy.
[2020-08-05 12:01] LABS: Glucose,Whole Blood 184 mg/dL (75-99)
[2020-08-05 13:52] LABS: Hemoglobin A1C 5.2 % (4.0-6.0)
--- NOTE | 2020-08-05 14:49 | P.PN ---
Subjective Progress Note Date: 08/05/20 History of present illness This is a pleasant 65-year-old female with past medical history significant for heart failure, COPD, diabetes, GI bleed with anemia presented to the emergency department yesterday with for evaluation of increased shortness of breath. Patient has frequent upper GI bleeds her last hospitalization she was transferred to [place] where it was found to have angiodysplasia. Patient states that she had cauterization of the bleeds at [place]. She also received multiple blood transfusions. Yesterday patient had increased shortness of breath that she states usually occurs when her hemoglobin decreases. Her last hemoglobin in her doctor's office was 8.6 last week. She is reporting black tarry stools and upper gastric pain. Patient denies chest pain. Patient reports dizziness and weakness. She does wear O2 at 2 L at home. Patient is found sitting up in bed with a nonrebreather in place. She is given 40 of Lasix due to increased shortness of breath. Awaiting GI consult and possible transfer to [place]. Patient states that her bleeding did not stop after her last cauterization. Blood pressure 118/56, pulse rate 82, respirati ons 24, 100% on a nonrebreather. WC 12.9, hemoglobin 7.6, potassium 4.1, B UN 29, creatinine 0.86 08/03: Patient had 1 unit of packed red blood cells transfused. Hemoglobin this morning was 7.0 which is down from 7.4 after the last transfusion. We will order an additional 1 unit of packed red blood cells. Transfer to [facility] was in place. However the transfer was rejected by receiving hospital - transfer was not necessary and no beds. If hemoglobin continues to trend down and we will continue to work for transfer. In 06/03/2020 patient had cauterization of proximal small bowel angiodysplasia. On 06/30/2019 patient was found to be anemic and sent to [place] for balloon enteroscopy which time she reports cauterization of bleeding angiectasia. While at home patient continued to have dark stools. At this time patient is found to be sitting up in a chair in no acute distress. Patient is currently on 4 L of nasal cannula past flexing 98%. Patient states that her breathing is much better. She denies any dark stools at this time. 08/04: Patient states that her breathing is sketchy. She is normally on 2 L nasal cannula at home. Repeat chest x-ray will be ordered for the morning. She states she has not had a bowel movement. She has increased generalized edema. GI is planning for push enteroscopy tomorrow. She is afebrile, heart rate 80, blood pressure 112/63, pulse ox 93% on 4 L nasal cannula. The PVC 14.7, hemoglobin 7.9, platelet 195. Sodium 137, potassium 5.5, chloride 94, CO2 37, BUN 33 and creatinine 1.21. Blood sugars running between 175 and 232. TSH 3.680. 08/05: Patient is going for endoscopy this morning. CO2 46, BUN 31 creatinine 1.26. Blood sugars running between 176 and 240. 1 additional dose of Diamox ordered. She has been afebrile, heart rate 68, blood pressure 114/56, pulse ox 96% on 4 L nasal cannula. No new complaints today. Amlodipine discontinued. Metolazone was started yesterday. Review Of Systems: Constitutional: No fever, no chills, no night sweats. No weight change. Reports weakness and fatigue no lethargy. No daytime sleepiness. EENT: No headache. No blurred vision or double vision, no loss of vision. No loss of Hearing, no ringing in the ears, no dizziness. No nasal drainage or congestion. No epistaxis. No sore throat. Lungs: Improved shortness of breath, reports cough, no sputum production. No wheezing. Dyspnea with exertion. Cardiovascular: No chest pain, no lower extremity edema. No palpitations. No paroxysmal nocturnal dyspnea. No orthopnea. No lightheadedness or dizziness. No syncopal episodes. Abdominal: reports epigastic pain. No nausea, vomiting. no diarrhea. No co nstipation. No bloody reports tarry stools. no loss of appetite. Genitourinary: No dysuria, increased frequency, urgency. No urinary retention. Musculoskeletal: No myalgias. No muscle weakness, no gait dysfunction, no frequent falls. No back pain. No neck pain. Integumentary: No wounds, no lesions. No rash or pruritus. No unusual bruising. No change in hair or nails. Neurologic: No aphasia. No facial droop. No change in mentation. No head injury. No headache. No paralysis. No paresthesia. Psychiatric: No depression. No anxiety. No mood swings. Endocrine: No abnormal blood sugars. No weight change. No excessive sweating or thirst. Physical examination General Appearance: Alert, cooperative, no distress, 65-year-old female patient sitting in a chair.. Neck HEENT: Supple, no lymphadenopathy, no thyroid enlargement, no carotid brui ts. Lungs: Crackles throughout, no rhonchi, no deformity. Chest Wall: Chest wall normal expansion with deep inspiration no tenderness and no deformity was found on exam, no costochondral pain or discomfort. Heart: Regular rate and rhythm, S1, S2 normal, systolic murmur present, no rub or gallop. Back: Symmetric, no curvature, ROM normal, no CVA tenderness. Abdomen: epigastric tenderness Soft,, no rebound or rigidity, no hepatosplenomegaly. Extremities: Extremities normal, atraumatic, no cyanosis or edema. Pulses: 2+ and symmetric. Skin: Bilateral lower extremity vascular dermatitis Skin color, texture, tugor normal, no rashes or lesions. Neurologic: Alert oriented x3 cranial nerves II through XII intact, no motor deficit, no abnormal balance or gait Assessment and plan 1. Acute hypoxic respiratory distress secondary to anemia and CHF. consult pulmonology appreciated, monitor hemoglobin, 1 unit of packed red blood cells transfused. Additional unit of packed red blood cells ordered. Transfer to [place] was rejected. continue with DuoNeb, continue with oxygen support. Shortness of breath likely related to fluid overload rather than COPD. additional dose of Diamox ordered. 2. Acute blood loss secondary to angiodysplasia, anemia. Consult GI appreciated, due to the need for balloon answers copy transferred is recommended. continue to monitor hemoglobin, continue Protonix 40 mg IV twice a day, Zofran 4 mg IV push every 8 hours and push endoscopy today. 3. Chronic anemia, noted above 4. Exacerbation of congestive heart failure. Consult cardiology, Lasix 40 mg IV push every 12 hours, K Dur 10 mEq by mouth twice a day 5. COPD, consult pulmonology appreciated, continue DuoNeb, oxygen support Shortness of breath likely related to fluid overload rather than COPD. 6. Diabetes mellitus Levemir 15 units twice a day, NovoLog sliding scale continuous Accu-Cheks before meals at bedtime 7. Stage III chronic kidney disease continuous hydration and fluid restrictions 8. Hypertension continue amlodipine, metoprolol, and spironolactone 9. Hyperlipidemia atorvastatin 40 mg daily 10. Hypothyroidism continue levothyroxine 125 g daily 13. Obstructive sleep apnea has CPAP at home 14. Chronic pain management. Remain on hydrocodone and Lyrica 16. History of depression continue Prozac 17. Vascular dermatitis , apply Silvadene cream and wrap with Neftali wrap daily. No concern for infection 18. Restless leg syndrome: Requip 2 mg twice a day 19. GI prophylaxis continuous Protonix 20. DVT prophylaxis pneumatic compression stockings Discharge plan: Most likely home Impression and plan of care have been directed as dictated by the signing physician. Clarice Colón nurse practitioner acting as scribe for signing physician. Objective - Vital Signs Vital signs: Vital Signs Temp 97.2 F L 08/05/20 10:18 Pulse 67 08/05/20 10:18 Resp 18 08/05/20 10:18 BP 114/56 08/05/20 10:18 Pulse Ox 96 08/05/20 10:18 Intake & Output 08/04/20 08/05/20 08/05/20 18:59 06:59 18:59 Intake Total 540 Output Total 2350 280 Balance -1810 -280 Weight 122 kg Intake: Oral 540 Output: Urine 2350 280 Stool 0 Other: Voiding Method Indwelling Catheter Indwelling Catheter Indwelling Catheter # Voids 1 - Labs CBC & Chem 7: 08/05/20 07:28 08/05/20 07:28 Labs: Abnormal Lab Results - Last 24 Hours (Table) 08/04/20 08/04/20 08/04/20 Range/Units 12:06 16:50 20:03 WBC (3.8-10.6) k/uL RBC (3.80-5.40) m/uL Hgb (11.4-16.0) gm/dL Hct (34.0-46.0) % MCHC (31.0-37.0) g/dL RDW (11.5-15.5) % Chloride (98-107) mmol/L Carbon Dioxide (22-30) mmol/L BUN (7-17) mg/dL Creatinine (0.52-1.04) mg/dL Glucose (74-99) mg/dL POC Glucose (mg/dL) 232 H 230 H 186 H (75-99) mg/dL Alkaline Phosphatase (38-126) U/L Albumin (3.5-5.0) g/dL 08/05/20 08/05/20 08/05/20 Range/Units 06:15 07:28 07:28 WBC 16.6 H (3.8-10.6) k/uL RBC 2.94 L (3.80-5.40) m/uL Hgb 7.6 L (11.4-16.0) gm/dL Hct 25.8 L (34.0-46.0) % MCHC 29.3 L (31.0-37.0) g/dL RDW 18.8 H (11.5-15.5) % Chloride 89 L (98-107) mmol/L Carbon Dioxide 46 H* (22-30) mmol/L BUN 31 H (7-17) mg/dL Creatinine 1.26 H (0.52-1.04) mg/dL Glucose 176 H (74-99) mg/dL POC Glucose (mg/dL) 240 H (75-99) mg/dL Alkaline Phosphatase 139 H (38-126) U/L Albumin 3.3 L (3.5-5.0) g/dL
[2020-08-05 16:58] LABS: Glucose,Whole Blood 471 mg/dL (75-99)
[2020-08-05 21:01] LABS: Glucose,Whole Blood 185 mg/dL (75-99)
[2020-08-05] MEDS: HYDROmorphone 0.5 MG/0.5 ML SYRINGE IVP PRN (21:04)
[2020-08-05] MEDS: MONTELUKAST 10 MG TAB PO SCH (21:04)
[2020-08-06 05:55] LABS: Glucose,Whole Blood 185 mg/dL (75-99)
[2020-08-06] MEDS: LEVOTHYROXINE 125 MCG TAB PO SCH (06:59)
[2020-08-06 07:16] LABS: Glucose,Whole Blood 178 mg/dL (75-99)
[2020-08-06] MEDS: INSULIN ASPART (NovoLOG) 100 UNIT/ML VIAL SQ SCH ×4 (07:17→21:34)
[2020-08-06] MEDS: INSULIN DETEMIR (LEVEMIR) 100 UNIT/ML SYR SQ SCH ×2 (07:18→21:34)
[2020-08-06] MEDS: IPRATROPIUM-ALBUTEROL 3 ML NEB INHALATION SCH ×4 (07:37→20:04)
[2020-08-06] MEDS: SYMBICORT 160-4.5 MCG INHALER INHALATION SCH ×2 (07:38→20:04)
[2020-08-06] MEDS: HYDROmorphone 0.5 MG/0.5 ML SYRINGE IVP PRN (08:25)
[2020-08-06] MEDS: FUROSEMIDE 10 MG/ML 10 ML VIAL IV SCH ×2 (08:28→20:21)
--- NOTE | 2020-08-06 10:58 | P.PN ---
Subjective Progress Note Date: 08/06/20 This is a obese 65-year-old female, with a history of congestive heart failure, COPD, diabetes, who presents to the emergency department on Aug.02, at 11 minutes after midnight, complaining of increasing shortness of breath, and gastrointestinal bleed. She apparently was recently at [facility], and had a procedure to cauterize the bleeding vessels. She also received blood transfusions at that time. More recently, over the last 24 hours, she became more short of breath. This typically occurs when her hemoglobin is low. Her last hemoglobin was 8.6, a week ago at her doctor's office. She admitted to Black stools, and upper abdominal pain. In addition, she had shortness of breath particularly on exertion. She denied any chest pain, dizziness, or weakness. She has been using her home oxygen at 2 L. She denies any nausea, vomiting, or diarrhea. She denies any genitourinary complaints. Apparently, the patient received 1 unit of PRBCs, and Lasix after that because of shortness of breath. According to the nurse Lola, the patient is on 6 L nasal cannula. The patient does have significant lower extremity edema. The patient did not look particularly short of breath. White count is 12.6, hemoglobin 7.7, hematocrit 26.2, and platelet count 266,000. PT, INR, PTT are all normal. Sodium 141, potassium 4.1, chlorides 99, CO2 37, anion gap 5, BUN 29, creatinine 0.86. The patient's troponin was 0.069, with an N-terminal proBNP that was 4480. Chest x-ray, and my opinion, is consistent with fluid overload/CHF. The patient is seen today 08/03/2020 in follow-up on the selective care unit. She is currently sitting up in a chair at the bedside. Awake and alert in no acute distress. She denies any worsening shortness of breath, cough or congestion. She is maintaining O2 saturation in the 90s on 3 L/m per nasal cannula. She's afebrile. Hemodynamically stable. She is receiving her second unit of packed blood cells. Current hemoglobin 7.0. White count 13.2. Sarah telets 210. Sodium 139. Potassium 4.3. Creatinine 1.08. She remains on Symbicort, Singulair, DuoNeb inhalations. Lasix 80 mg IV every 12 hours along with Aldactone. On 08/04/2020 the patient is sitting up on a chair. She is doing well. No bleeding overnight. Overall, she received a total of 2 units of packed RBC and hemoglobin today is at 7.9. The plan is to transfer this patient to [facility] for further intervention regarding her recurrent upper GI bleeding. She is on 4 L of oxygen by nasal cannula. No chest pain. No fever. No chills.. Her creatinine is up to 1.2. Otherwise, she is doing well. She has chronic edema lower extremities. On August 05/2021, we came to see to selective care unit to see the patient in follow-up. No active bleeding overnight, today's hemoglobin is 16, down to 7.9, so far patient had received 2 units in packed red blood cell transfusion, on 08/02/2020 and 08/03/2020. Abdomen is soft, nontender, her breathing is at her baseline, she is on 4 L of oxygen, she did wear BiPAP support overnight sats of 96%, hemodynamically she is stable, afebrile, discharge planning was working on transfer to [facility] for GI evaluatio, however we are told that the patient was declined. Down for push enteroscopy today with Dr. Navarro. On IV Lasix 80 mg twice daily, and she is in -2 L fluid balance over the last 24 hours. On August 06, 2020 patient seen in follow-up on selective care unit, yesterday she had push enteroscopy, which revealed mild gastritis but no evidence of active bleeding or old blood to explain blood loss anemia, today's blood work is still pending, her last bowel movement was yesterday the patient states she had a large black bowel movement, no bleeding since then, hemodynamically she is been stable, her, no abdominal pain, headedness or dizziness, lung sounds reveal some bibasilar crackles, no wheezing, remains on IV Lasix 80 mg twice daily, she is -600 mL fluid balance over the last 24 hours, still has the 1+ lower extremity edema which is fairly chronic for the patient, she has been wearing BiPAP support at night, she is on 4 L of oxygen right now, normally she wears 3 L at home, pulse ox of 4 L of oxygen is 95%. She is on PPI therapy. Objective - Vital Signs Vital signs: Vital Signs Temp 97.5 F L 08/06/20 08:00 Pulse 60 08/06/20 08:00 Resp 18 08/06/20 08:00 BP 121/51 08/06/20 08:00 Pulse Ox 94 L 08/06/20 08:00 Intake & Output 08/05/20 08/06/20 08/06/20 18:59 06:59 18:59 Intake Total 336 550 200 Output Total 1500 200 Balance 336 -950 0 Weight 121.5 kg Intake: IV 100 Oral 236 550 200 Output: Urine 1500 200 Other: Voiding Method Indwelling Catheter Indwelling Catheter Indwelling Catheter # Bowel Movements 0 0 - Exam GENERAL EXAM: Alert, very pleasant, 65-year-old female, comfortable in no apparent distress. HEAD: Normocephalic/atraumatic. EYES: Normal reaction of pupils, equal size. Conjunctiva pink, sclera white. NOSE: Clear with pink turbinates. THROAT: No erythema or exudates. NECK: No masses, no JVD, no thyroid enlargement, no adenopathy. CHEST: No chest wall deformity. Symmetrical expansion. LUNGS: Equal air entry with bibasilar crackles CVS: Regular rate and rhythm, normal S1 and S2, no gallops, no murmurs, no rubs ABDOMEN: Soft, nontender. No hepatosplenomegaly, normal bowel sounds, no guarding or rigidity. EXTREMITIES: No clubbing, 1+ edema, no cyanosis, 2+ pulses and upper and lower extremities. MUSCULOSKELETAL: Muscle strength and tone normal. SPINE: No scoliosis or deformity SKIN: No rashes CENTRAL NERVOUS SYSTEM: Alert and oriented -3. No focal deficits, tone is normal in all 4 extremities. PSYCHIATRIC: Alert and oriented -3. Appropriate affect. Intact judgment and insight. - Labs CBC & Chem 7: 08/05/20 07:28 08/05/20 07:28 Labs: Abnormal Lab Results - Last 24 Hours (Table) 08/05/20 08/05/20 08/05/20 Range/Units 12:00 16:56 20:51 POC Glucose (mg/dL) 184 H 471 H 185 H (75-99) mg/dL 08/06/20 08/06/20 Range/Units 05:53 07:14 POC Glucose (mg/dL) 185 H 178 H (75-99) mg/dL Assessment and Plan Plan: Assessment: 1 Recurrent GI bleed, Initial hemoglobin 6.8. Receiving 2 units of RBC, hem oglobin is up to 7.9 and the patient has not shown any signs of bleeding. Transfer was requested to [facility] however chest was declined, patient had push enteroscopy which revealed mild gastritis but no active bleeding 2 History of prior GI bleed, secondary to duodenal AV malformation. 3 Fluid overload/CHF, likely secondary to transfusion of PRBCs. 4 COPD, not particularly active at this time. the patient has chronic hypoxic respiratory failure and she is currently on 4 L about 2 by nasal cannula and she has home O2. 5 Morbid obesity. 6 History of diabetes mellitus. 7 Prior history of GI bleed. 8 History of pneumonia. 9 Chronic hypoxemic respiratory failure, on chronic nocturnal BiPAP therapy. 10 Diabetic neuropathy. 11 Valvular heart disease. 12 Obstructive sleep apnea syndrome. 13 History of hypothyroidism. 14 Previous history of heavy tobacco use. 15 History of depression. 16 chronic lower extremity edema and the patient is taking Lasix 40 mg twice a day Plan: Continue IV Lasix, continue BiPAP support at night, continue bronchodilators, from pulmonary perspective patient is stable, no worsening dyspnea, push enteroscopy was completed revealing no active bleeding, and only mild gastritis, continue PPI therapy. Pulmonary service will sign off in follow-up on as-needed basis I performed a history & physical examination of the patient and discussed their management with my nurse practitioner, Rika Hartley. I reviewed the nurse practitioner's note and agree with the documented findings and plan of care. Lung sounds are positive for diminished breath sounds. The findings and the impression was discussed with the patient. I attest to the documentation by the nurse practitioner. Time with Patient: Less than 30
[2020-08-06 11:12] LABS: Calcium 8.8 mg/dL (8.4-10.2)
[2020-08-06 11:35] LABS: Anisocytosis Slight; Basophils # (A) 0.1 k/uL (0-0.2); Basophils % (A) 1 %; Eosinophils # (A) 0.9 k/uL (0-0.7); Eosinophils % (A) 7 %; HGB 7.6 gm/dL (11.4-16.0); Hypochromasia Marked; Lymphocytes # (A) 1.1 k/uL (1.0-4.8); Lymphocytes % (A) 8 %; MCH 26.2 pg (25.0-35.0); MCHC 29.3 g/dL (31.0-37.0); MCV 89.5 fL (80.0-100.0); Mean Platelet Volume 9.2; Monocytes # (A) 1.1 k/uL (0-1.0); Monocytes % (A) 8 %; Neutrophils # (A) 10.4 k/uL (1.3-7.7); Neutrophils % (A) 76 %; Platelet Count 172 k/uL (150-450); Poikilocytosis Marked; RBC 2.91 m/uL (3.80-5.40); RDW 19.2 % (11.5-15.5); WBC 13.7 k/uL (3.8-10.6)
[2020-08-06 11:53] LABS: Glucose,Whole Blood 311 mg/dL (75-99)
[2020-08-06] MEDS: acetaZOLAMIDE 250 MG TAB PO SCH (11:53)
[2020-08-06] MEDS: ATORVASTATIN 40 MG TAB PO SCH (11:54)
[2020-08-06] MEDS: FLUoxetine HCL 20 MG CAP PO SCH (11:54)
[2020-08-06] MEDS: metOLazone 2.5 MG TAB PO SCH (11:55)
[2020-08-06] MEDS: ISOSORBIDE MONONITRATE ER 30 MG TAB.ER.24H PO SCH (11:55)
[2020-08-06] MEDS: METOPROLOL TARTRATE 50 MG TAB PO SCH ×2 (11:56→20:21)
[2020-08-06] MEDS: PANTOPRAZOLE 40 MG/10 ML VIAL IV SCH ×2 (11:57→20:21)
[2020-08-06] MEDS: POTASSIUM CHLORIDE ER 10 MEQ TAB.ER.PRT PO SCH ×2 (11:59→20:21)
[2020-08-06] MEDS: PREGABALIN 100 MG CAP PO SCH ×2 (11:59→20:21)
[2020-08-06] MEDS: SPIRONOLACTONE 25 MG TAB PO SCH (12:01)
[2020-08-06] MEDS: SENNOSIDES 8.6 MG TAB PO SCH ×2 (12:11→20:22)
[2020-08-06] MEDS: SILVER sulfADIAZINE Cream 400 GM 1 APPLIC APPLIC TOPICAL SCH (12:24)
[2020-08-06] MEDS: MAG HYDROX/AL HYDROX/SIMETH 30 ML CUP PO SCH ×2 (12:24→17:08)
--- NOTE | 2020-08-06 13:57 | P.PN ---
Subjective Progress Note Date: 08/06/20 History of present illness This is a pleasant 65-year-old female with past medical history significant for heart failure, COPD, diabetes, GI bleed with anemia presented to the emergency department yesterday with for evaluation of increased shortness of breath. Patient has frequent upper GI bleeds her last hospitalization she was transferred to [place] where it was found to have angiodysplasia. Patient states that she had cauterization of the bleeds at [place]. She also received multiple blood transfusions. Yesterday patient had increased shortness of breath that she states usually occurs when her hemoglobin decreases. Her last hemoglobin in her doctor's office was 8.6 last week. She is reporting black tarry stools and upper gastric pain. Patient denies chest pain. Patient reports dizziness and weakness. She does wear O2 at 2 L at home. Patient is found sitting up in bed with a nonrebreather in place. She is given 40 of Lasix due to increased shortness of breath. Awaiting GI consult and possible transfer to [place]. Patient states that her bleeding did not stop after her last cauterization. Blood pressure 118/56, pulse rate 82, respirati ons 24, 100% on a nonrebreather. WC 12.9, hemoglobin 7.6, potassium 4.1, B UN 29, creatinine 0.86 08/03: Patient had 1 unit of packed red blood cells transfused. Hemoglobin this morning was 7.0 which is down from 7.4 after the last transfusion. We will order an additional 1 unit of packed red blood cells. Transfer to [facility] was in place. However the transfer was rejected by receiving hospital - transfer was not necessary and no beds. If hemoglobin continues to trend down and we will continue to work for transfer. In 06/03/2020 patient had cauterization of proximal small bowel angiodysplasia. On 06/30/2019 patient was found to be anemic and sent to [place] for balloon enteroscopy which time she reports cauterization of bleeding angiectasia. While at home patient continued to have dark stools. At this time patient is found to be sitting up in a chair in no acute distress. Patient is currently on 4 L of nasal cannula past flexing 98%. Patient states that her breathing is much better. She denies any dark stools at this time. 08/04: Patient states that her breathing is sketchy. She is normally on 2 L nasal cannula at home. Repeat chest x-ray will be ordered for the morning. She states she has not had a bowel movement. She has increased generalized edema. GI is planning for push enteroscopy tomorrow. She is afebrile, heart rate 80, blood pressure 112/63, pulse ox 93% on 4 L nasal cannula. The PVC 14.7, hemoglobin 7.9, platelet 195. Sodium 137, potassium 5.5, chloride 94, CO2 37, BUN 33 and creatinine 1.21. Blood sugars running between 175 and 232. TSH 3.680. 08/05: Patient is going for endoscopy this morning. CO2 46, BUN 31 creatinine 1.26. Blood sugars running between 176 and 240. 1 additional dose of Diamox ordered. She has been afebrile, heart rate 68, blood pressure 114/56, pulse ox 96% on 4 L nasal cannula. No new complaints today. Amlodipine discontinued. Metolazone was started yesterday. 08/06: Push enteroscopy revealed no active bleeding, or blood or pathology to explain anemia. Mild gastritis. Patient was cleared to start diet and resume medications, continue PPI. Today, patient is complaining of pain across her abdomen. She denies having any diarrhea. She denies constipation. She did state she had a large bowel movement was pasty consistency. Maalox started. Raphael catheter will be discontinued today and increase activity. She is noted to have decreased edema. WBC 13.7, hemoglobin 7.6 Plan for possible discharge by tomorrow. Review Of Systems: Constitutional: No fever, no chills, no night sweats. No weight change. Reports weakness and fatigue no lethargy. No daytime sleepiness. EENT: No headache. No blurred vision or double vision, no loss of vision. No loss of Hearing, no ringing in the ears, no dizziness. No nasal drainage or congestion. No epistaxis. No sore throat. Lungs: Denies shortness of breath, reports cough, no sputum production. No whe ezing. Dyspnea with exertion. Cardiovascular: No chest pain, no lower extremity edema. No palpitations. No paroxysmal nocturnal dyspnea. No orthopnea. No lightheadedness or dizziness. No syncopal episodes. Abdominal: reports epigastic pain. No nausea, vomiting. no diarrhea. No constipation. No bloody reports tarry stools. no loss of appetite. Genitourinary: No dysuria, increased frequency, urgency. No urinary retention. Musculoskeletal: No myalgias. No muscle weakness, no gait dysfunction, no frequent falls. No back pain. No neck pain. Integumentary: No wounds, no lesions. No rash or pruritus. No unusual bruising. No change in hair or nails. Neurologic: No aphasia. No facial droop. No change in mentation. No head injury. No headache. No paralysis. No paresthesia. Psychiatric: No depression. No anxiety. No mood swings. Endocrine: No abnormal blood sugars. No weight change. Physical examination General Appearance: Alert, cooperative, no distress, 65-year-old female patient sitting in a chair and appears to be comfortable Neck HEENT: Supple, no lymphadenopathy, no thyroid enlargement, no carotid bruits. Lungs: Diminished slightly to the bases. no rhonchi, no deformity. No accessory muscle usage. Chest Wall: Chest wall normal expansion with deep inspiration no tenderness and no deformity was found on exam, no costochondral pain or discomfort. Heart: Regular rate and rhythm, S1, S2 normal, systolic murmur present, no rub or gallop. Back: Symmetric, no curvature, ROM normal, no CVA tenderness. Abdomen: epigastric tenderness Soft,, no rebound or rigidity, no hepatosplenomegaly. Extremities: Extremities normal, atraumatic, no cyanosis or edema. Pulses: 2+ and symmetric. Skin: Bilateral lower extremity vascular dermatitis Skin color, texture, tugor normal, no rashes or lesions. Neurologic: Alert oriented x3 cranial nerves II through XII intact, no motor deficit, no abnormal balance or gait Assessment and plan 1. Acute hypoxic respiratory distress secondary to anemia and CHF. consult pulmonology appreciated, monitor hemoglobin, status post total of 2 units of packed RBCs. Transfer to [place] was rejected. continue with DuoNeb, continue with oxygen support. Shortness of breath likely related to fluid overload rather than COPD. 2. Acute blood loss anemia. Consult GI appreciated, push endoscopy finding no pathology. 3. Chronic anemia, noted above 4. Exacerbation of diastolic heart failure. Consult cardiology, Lasix 40 mg IV push every 12 hours, K Dur 10 mEq by mouth twice a day 5. COPD, consult pulmonology appreciated, continue DuoNeb, oxygen support Shortness of breath likely related to fluid overload rather than COPD. 6. Diabetes mellitus Levemir 15 units twice a day, NovoLog sliding scale continuous Accu-Cheks before meals at bedtime 7. Stage III chronic kidney disease continuous hydration and fluid restrictions 8. Hypertension continue amlodipine, metoprolol, and spironolactone 9. Hyperlipidemia atorvastatin 40 mg daily 10. Hypothyroidism continue levothyroxine 125 g daily 13. Obstructive sleep apnea has CPAP at home 14. Chronic pain management. Remain on hydrocodone and Lyrica 16. History of depression continue Prozac 17. Vascular dermatitis , apply Silvadene cream and wrap with Neftali wrap daily. No concern for infection 18. Restless leg syndrome: Requip 2 mg twice a day 19. GI prophylaxis continuous Protonix 20. DVT prophylaxis pneumatic compression stockings Discharge plan: Most likely home on Impression and plan of care have been directed as dictated by the signing physi cian. Clarice Colón nurse practitioner acting as scribe for signing physician. Objective - Vital Signs Vital signs: Vital Signs Temp 97.5 F L 08/06/20 08:00 Pulse 60 08/06/20 08:00 Resp 18 08/06/20 08:00 BP 121/51 08/06/20 08:00 Pulse Ox 94 L 08/06/20 08:00 Intake & Output 08/05/20 08/06/20 08/06/20 18:59 06:59 18:59 Intake Total 336 550 200 Output Total 1500 200 Balance 336 -950 0 Weight 121.5 kg Intake: IV 100 Oral 236 550 200 Output: Urine 1500 200 Other: Voiding Method Indwelling Catheter Indwelling Catheter Indwelling Catheter # Bowel Movements 0 0 - Labs CBC & Chem 7: 08/06/20 09:26 08/06/20 09:26 Labs: Abnormal Lab Results - Last 24 Hours (Table) 08/05/20 08/05/20 08/05/20 Range/Units 12:00 16:56 20:51 POC Glucose (mg/dL) 184 H 471 H 185 H (75-99) mg/dL 08/06/20 08/06/20 Range/Units 05:53 07:14 POC Glucose (mg/dL) 185 H 178 H (75-99) mg/dL
--- NOTE | 2020-08-06 15:20 | P.PN ---
Subjective Progress Note Date: 08/06/20 Principal diagnosis: GI bleed, anemia Patient seen and examined lying in bed. States she's not having a good day. States she had upper abdominal pain this morning which require pain medication. Patient states she is no longer in pain. Denies any nausea or vomiting. States she had a large bowel movement yesterday that was black. She also underwent her push enteroscopy yesterday which showed no active bleeding, mild gastritis. Objective - Vital Signs Vital signs: Vital Signs Temp 97.5 F L 08/06/20 08:00 Pulse 60 08/06/20 08:00 Resp 18 08/06/20 08:00 BP 121/51 08/06/20 08:00 Pulse Ox 94 L 08/06/20 08:00 Intake & Output 08/05/20 08/06/20 08/06/20 18:59 06:59 18:59 Intake Total 336 550 200 Output Total 1500 200 Balance 336 -950 0 Weight 121.5 kg Intake: IV 100 Oral 236 550 200 Output: Urine 1500 200 Other: Voiding Method Indwelling Catheter Indwelling Catheter Indwelling Catheter # Bowel Movements 0 0 - Exam General appearance: The patient is alert, oriented, appears in no acute distress. Morbidly obese HET: Head is normocephalic and atraumatic. Conjunctiva pink. Sclera anicteric. Neck: Supple without lymphadenopathy. Abdomen: Soft, obese, epigastric tenderness, nondistended with bowel sounds. No guarding or rigidity. Extremities: Normal skin color and turgor. Bilateral pedal edema Neurological: No focal deficits. Alert and oriented 3. - Labs CBC & Chem 7: 08/06/20 09:26 08/06/20 09:26 Labs: Abnormal Lab Results - Last 24 Hours (Table) 08/05/20 08/05/20 08/05/20 Range/Units 12:00 16:56 20:51 POC Glucose (mg/dL) 184 H 471 H 185 H (75-99) mg/dL 08/06/20 08/06/20 Range/Units 05:53 07:14 POC Glucose (mg/dL) 185 H 178 H (75-99) mg/dL Assessment and Plan (1) Anemia Narrative/Plan: 65-year-old female with multiple medical comorbidities including prior GI bleed with multiple endoscopies in the past year including a locally on 05/2020 with findings of proximal small bowel angiectasia treated with coagulation therapy the patient was recently sent to [facility] where she reports push enteroscopy with treatment of angiectasia and presented for shortness of br eath. Chest x-ray suggestive of fluid overload from congestive heart failure. Anemia likely multifactorial given known history of small bowel GI bleeding as well as likely component of anemia of chronic disease hemoglobin 7.0 this morning with one additional unit of packed red blood cells ordered.. Current Visit: Yes Status: Acute Code(s): D64.9 - ANEMIA, UNSPECIFIED SNOMED Code(s): 904879950 (2) GI bleed Narrative/Plan: She is status post push enteroscopy yesterday with no bleeding, mild gastritis. Current Visit: Yes Status: Acute Code(s): K92.2 - GASTROINTESTINAL HEMORRHAGE, UNSPECIFIED SNOMED Code(s): 46825202 (3) Melena Current Visit: No Status: Acute Code(s): K92.1 - MELENA SNOMED Code(s): 4249469 Plan: Supportive care Diet as tolerated is status post push enteroscopy Continue to monitor CBC and transfuse as needed Continue to monitor for signs or symptoms of GI bleed Continue Protonix therapy There are no plans for any further endoscopies at this point. If patient continues to have GI bleed would recommend transfer to tertiary center for advanced endoscopy. Thank you for allowing us to participate in the care of the patient I agree with the dictator's note, documented as a scribe by Cinthya Montoya.
[2020-08-06 17:12] LABS: Glucose,Whole Blood 245 mg/dL (75-99)
[2020-08-06] MEDS: MONTELUKAST 10 MG TAB PO SCH (20:21)
[2020-08-06 20:54] LABS: Glucose,Whole Blood 271 mg/dL (75-99)
[2020-08-07] MEDS: MAG HYDROX/AL HYDROX/SIMETH 30 ML CUP PO SCH ×5 (00:02→20:44)
[2020-08-07 02:04] LABS: Glucose,Whole Blood 213 mg/dL (75-99)
[2020-08-07] MEDS: LEVOTHYROXINE 125 MCG TAB PO SCH (07:04)
[2020-08-07 07:37] LABS: Glucose,Whole Blood 185 mg/dL (75-99)
[2020-08-07] MEDS: SYMBICORT 160-4.5 MCG INHALER INHALATION SCH ×2 (07:46→19:48)
[2020-08-07] MEDS: IPRATROPIUM-ALBUTEROL 3 ML NEB INHALATION SCH ×4 (07:46→19:47)
[2020-08-07] MEDS: INSULIN ASPART (NovoLOG) 100 UNIT/ML VIAL SQ SCH ×4 (07:48→21:33)
[2020-08-07] MEDS: INSULIN DETEMIR (LEVEMIR) 100 UNIT/ML SYR SQ SCH ×2 (07:48→21:32)
[2020-08-07] MEDS: ATORVASTATIN 40 MG TAB PO SCH (10:49)
[2020-08-07] MEDS: acetaZOLAMIDE 250 MG TAB PO SCH (10:49)
[2020-08-07] MEDS: FLUoxetine HCL 20 MG CAP PO SCH (10:50)
[2020-08-07] MEDS: FUROSEMIDE 10 MG/ML 10 ML VIAL IV SCH ×2 (10:50→20:44)
[2020-08-07] MEDS: ISOSORBIDE MONONITRATE ER 30 MG TAB.ER.24H PO SCH (10:52)
[2020-08-07] MEDS: METOPROLOL TARTRATE 50 MG TAB PO SCH ×2 (10:52→20:44)
[2020-08-07] MEDS: POTASSIUM CHLORIDE ER 10 MEQ TAB.ER.PRT PO SCH ×2 (10:53→20:45)
[2020-08-07] MEDS: PREGABALIN 100 MG CAP PO SCH ×2 (10:53→20:44)
[2020-08-07] MEDS: PANTOPRAZOLE 40 MG/10 ML VIAL IV SCH ×2 (10:53→20:44)
[2020-08-07] MEDS: SENNOSIDES 8.6 MG TAB PO SCH ×2 (10:54→20:45)
[2020-08-07] MEDS: SILVER sulfADIAZINE Cream 400 GM 1 APPLIC APPLIC TOPICAL SCH (10:54)
[2020-08-07] MEDS: SPIRONOLACTONE 25 MG TAB PO SCH (10:55)
--- NOTE | 2020-08-07 11:16 | P.CNOR ---
History of Present Illness - HPI Consult date: 08/07/20 Consult reason: joint pain History of present illness: 65-year-old female who presented to the hospital at GI bleed and shortness of breath with history of severe GI issues had a fall from standing yesterday when she states that her legs seemed to give out. She states that she has had total knees done on both of her knees. These are done about 5 years ago out of [place]. She states she was getting up to the bathroom when she just became weak in her legs and went down falling onto her buttock. She denies any blunt head trauma or loss of consciousness with the fall. She states some pain in her buttock region no pain in her knees no pain in her back at this time. She denies any bowel or bladder issues no incontinence no numbness or tingling of her genital or perineal region. Denies any other pain in any other places at this time. She states continued shortness of breath. Denies any fevers chills or chest pain at this time. Review of Systems 14 points review of systems completed and as stated in HPI, all other systems reviewed are negative. Past Medical History Past Medical History: Heart Failure, COPD, Diabetes Mellitus, GI Bleed, Pneumonia, Respiratory Disorder Additional Past Medical History / Comment(s): heart murmur, neuropathy, scope done Last Myocardial Infarction Date:: 2018 History of Any Multi-Drug Resistant Organisms: None Reported Year Discovered:: 04/2019 MDRO Source:: URINE Past Surgical History: Section, Cholecystectomy, Heart Catheterization, Hysterectomy, Orthopedic Surgery Additional Past Surgical History / Comment(s): Gi cauterization 02/22/2020; heart cath 12/26/2019; cataracts removal, lens placement. FREQUENT BLOOD TRANFUSIONS Past Anesthesia/Blood Transfusion Reactions: Previous Problems w/ Anesthesia Additional Past Anesthesia/Blood Transfusion Reaction / Comm: ALLERGY TO CISATRACURIUM- FACE TURNED RED/SWOLLEN Past Psychological History: No Psychological Hx Reported Smoking Status: Never smoker Past Alcohol Use History: None Reported Past Drug Use History: None Reported - Past Family History Mother Family Medical History: Renal Disease Additional Family Medical History / Comment(s): Mother was on Hemodilaysis Medications and Allergies Home Medications Medication Instructions Recorded Confirmed Type Atorvastatin [Lipitor] 40 mg PO DAILY tab 08/03/20 Rx Budesonide-Formot 160-4.5 Mcg 2 puff INHALATION RT-BID puff 08/03/20 Rx [Symbicort 160-4.5 Mcg Inhaler] FLUoxetine HCL [PROzac] 20 mg PO DAILY cap 08/03/20 Rx INSULIN ASPART (NovoLOG) [NovoLOG 0 unit SQ ACHS vial 08/03/20 Rx (formulary)] Insulin Detemir (Levemir) [Levemir] 15 unit SQ BID@0700,2100 syr 08/03/20 Rx Ipratropium-Albuterol Nebulize 3 ml INHALATION RT-QID ml 08/03/20 Rx [Duoneb 0.5 mg-3 mg/3 ml Soln] Isosorbide Mononitrate ER [Imdur] 30 mg PO DAILY tab.er.24h 08/03/20 Rx Levothyroxine Sodium [Synthroid] 125 mcg PO DAILY@0630 tab 08/03/20 Rx Metoprolol Tartrate [Lopressor] 100 mg PO BID tab 08/03/20 Rx Montelukast [Singulair] 10 mg PO HS tab 08/03/20 Rx Potassium Chloride ER [K-Dur 10] 10 meq PO BID tab.er.prt 08/03/20 Rx Pregabalin [Lyrica] 200 mg PO BID cap 08/03/20 Rx SILVER sulfADIAZINE CREAM 1 applic TOPICAL DAILY applic 08/03/20 Rx [Silvadene Cream] Sennosides-Docusate Sodium 1 each PO BID PRN tab 08/03/20 Rx [Senokot-S] Spironolactone [Aldactone] 25 mg PO DAILY tab 08/03/20 Rx acetaZOLAMIDE [Diamox] 250 mg PO DAILY tab 08/03/20 Rx amLODIPine [Norvasc] 5 mg PO DAILY tab 08/03/20 Rx methocarbamoL [Robaxin] 500 mg PO BID PRN tab 08/03/20 Rx rOPINIRole HCL [Requip] 2 mg PO BID tab 08/03/20 Rx Allergies Allergy/AdvReac Type Severity Reaction Status Date / Time cisatracurium [From Nimbex] Allergy Rash/Hives Verified 08/02/20 08:39 Physical Examination Osteopathic Statement: *. No significant issues noted on an osteopathic structural exam other than those noted in the History and Physical/Consult. PHYSICAL EXAMINATION: Vitals: Stable at this time General: Awake, alert, appropriate for age, in no acute distress. HEENT: No unusual neck masses around region of lateral neck triangle, thyroid, supraclavicular groove. Extremities: Skin warm and dry without no acute lesions, coloration, temperature, skin intact, no tenderness or erythema. Integument: Hairy patches: Absent Dorsal skin dimples: Absent Cafe au lait spots: Absent Surgical incisions: Bilateral total knee incisions anteriorly well-healed no erythema or ecchymosis or edema Very dry scaly skin throughout Palpation: Please see Pain drawing on Intake sheet for further detail. (Tenderness = T, Nontender = NT, Swelling = S, Ecchymosis = E) Findings on Midline and paraspinal palpation and percussion: Cervical: NT Thoracic: NT Lumbar: Mild tenderness to palpation midline Sacral: Mild tenderness to palpation Special findings: No tennis palpation around the knees hips ankles. VASCULAR STATUS : Wrist Pulses: 2/4 bilateral radial and ulnar Pedal Pulses: 2/4 bilateral DP and PT Color: Normal Edema: None NEUROLOGIC EXAMINATION: Mental Status: Awake and alert, fully oriented, with normal attention, concentration and memory, and fluent, appropriate speech. Cranial Nerves: I: Olfactory not tested. II: Visual acuity normal, no visual field deficit noted with confrontation. III,IV: Normal pupillary reflexes & intact extraocular movements without nystagmus. V,: Intact symmetrical facial sensation. VII: Intact symmetrical facial motor movement VIII: Hearing intact. IX,X: Intact gag, swallow, & normal voice. XI: Sternocleidomastoid, trapezius function intact. XII: Tongue midline with normal movements. Special Tests: L'hermitte's Sign: Absent Spurling'Sign: Absent Bilateral Cubital percussion test: Absent Bilateral Nik-Tinel sign - Carpal region: Absent Bilateral Straight Leg Raising: Absent Bilateral Motor Exam (0-5/5, N/T) STRENGTH UPPER EXTREMITY Shoulder Abd (Not part of DAVID Motor score): RIGHT 5 LEFT 5 Elbow Flexors: RIGHT 5 LEFT 5 Elbow Extensor: RIGHT 5 LEFT 5 Wrrist Dorsiflexors: RIGHT 5 LEFT 5 Finger Abductor: RIGHT 5 LEFT 5 Plc Engineer: RIGHT 5 LEFT 5 LOWER EXTREMITY Hip Flexor (Not part of DAVID Motor Score): RIGHT 5 LEFT 5 Knee Flexor: RIGHT 5 LEFT 5 Knee Extensor: RIGHT 5 LEFT 5 Ankle Dorsiflexion: RIGHT 5 LEFT 5 Ankle Plantarflexion: RIGHT 5 LEFT 5 EHL: RIGHT 5 LEFT 5 FHL: RIGHT 5 LEFT 5 DAVID Motor Score: RIGHT 50/50 LEFT 50/50 No focal deficits noted she does have weakness in hip flexion bilaterally but t his is secondary to her body habitus. I did witness her stand up and move around she just got up with a walker was able to walk to her bed without the walker and was able to get around without really any issues. REFLEXES Biecp: RIGHT 2 LEFT 2 Tricep: RIGHT 2 LEFT 2 Brachioradialis: RIGHT 2 LEFT 2 Patellar: RIGHT 2 LEFT 2 Achilles: RIGHT 2 LEFT 2 Pathological Reflexes Mahajan's: RIGHT Absent LEFT Absent Babinski: RIGHT Absent LEFT Absent Clonus: RIGHT None LEFT None SENSORY Joint Position: Intact bilaterally Vibration Intact bilaterally Pain and LT sense Intact C5-T1 and L2-S1 Dermatomal deficit None Gait and Functional Evaluation: Ambulatory aids: Wheeled walker Romberg's test: Intact bilaterally. Toe walk/ heel walk / heel-toe walk intact while maintaining satisfactory balance. Squatting and straightening out without assistance to a minimum of 60 degrees knee flexion Single leg stance: intact/ Trendelenburg sign negative bilaterally Hand and finger dexterity intact bilaterally. Disdiadochokinesis examination negative bilaterally. Results Bilateral knee x-rays lumbar x-ray and coccygeal x-ray reveal stable total knee implants no evidence of loosening or hardware failure. No evidence of fracture bilaterally. All components are in good position and are holding steady. Lumbar films demonstrate good lumbar lordosis good disc space and height good vertebral body heights no fractures dislocations maintained alignment and no instability noted. Coccygeal and sacral x-rays demonstrate possible distal coccygeal fracture minimal displacement however hard to decipher. No severe displacement or fracture noted. Pelvis is stable. - Labs Labs: Abnormal Lab Results - Last 24 Hours (Table) 08/06/20 08/06/20 08/06/20 Range/Units 09:26 09:26 11:49 WBC 13.7 H (3.8-10.6) k/uL RBC 2.91 L (3.80-5.40) m/uL Hgb 7.6 L (11.4-16.0) gm/dL Hct 26.0 L (34.0-46.0) % MCHC 29.3 L (31.0-37.0) g/dL RDW 19.2 H (11.5-15.5) % Neutrophils # 10.4 H (1.3-7.7) k/uL Monocytes # 1.1 H (0-1.0) k/uL Eosinophils # 0.9 H (0-0.7) k/uL Chloride 86 L (98-107) mmol/L Carbon Dioxide 44 H* (22-30) mmol/L BUN 31 H (7-17) mg/dL Creatinine 1.20 H (0.52-1.04) mg/dL Glucose 245 H (74-99) mg/dL POC Glucose (mg/dL) 311 H (75-99) mg/dL 08/06/20 08/06/20 08/07/20 Range/Units 17:04 20:52 02:02 WBC (3.8-10.6) k/uL RBC (3.80-5.40) m/uL Hgb (11.4-16.0) gm/dL Hct (34.0-46.0) % MCHC (31.0-37.0) g/dL RDW (11.5-15.5) % Neutrophils # (1.3-7.7) k/uL Monocytes # (0-1.0) k/uL Eosinophils # (0-0.7) k/uL Chloride (98-107) mmol/L Carbon Dioxide (22-30) mmol/L BUN (7-17) mg/dL Creatinine (0.52-1.04) mg/dL Glucose (74-99) mg/dL POC Glucose (mg/dL) 245 H 271 H 213 H (75-99) mg/dL 08/07/20 Range/Units 07:28 WBC (3.8-10.6) k/uL RBC (3.80-5.40) m/uL Hgb (11.4-16.0) gm/dL Hct (34.0-46.0) % MCHC (31.0-37.0) g/dL RDW (11.5-15.5) % Neutrophils # (1.3-7.7) k/uL Monocytes # (0-1.0) k/uL Eosinophils # (0-0.7) k/uL Chloride (98-107) mmol/L Carbon Dioxide (22-30) mmol/L BUN (7-17) mg/dL Creatinine (0.52-1.04) mg/dL Glucose (74-99) mg/dL POC Glucose (mg/dL) 185 H (75-99) mg/dL H & H 08/02/20 08/02/20 08/02/20 Range/Units 00:50 07:15 10:39 Hgb 6.8 L* D 7.6 L 7.7 L (11.4-16.0) gm/dL Hct 23.1 L 26.4 L 26.2 L (34.0-46.0) % 08/02/20 08/02/20 08/03/20 Range/Units 17:35 23:37 07:11 Hgb 7.8 L 7.4 L 7.0 L (11.4-16.0) gm/dL Hct 25.9 L 25.0 L 25.1 L (34.0-46.0) % 08/04/20 08/05/20 08/06/20 Range/Units 06:35 07:28 09:26 Hgb 7.9 L 7.6 L 7.6 L (11.4-16.0) gm/dL Hct 26.4 L 25.8 L 26.0 L (34.0-46.0) % Coagulation 08/02/20 Range/Units 01:52 INR 1.0 (<1.2) Result Diagrams: 08/06/20 09:26 08/06/20 09:26 Assessment and Plan Assessment: 65-year-old female admitted for shortness of breath acute hypoxic respiratory failure history of GI bleeds and complex medical history and comorbidities with a fall from standing yesterday no blunt head trauma Lumbar back pain sacral pain, no fracture Bilateral knee pain weakness, no fracture Status post bilateral total knee replacement, stable Plan: -Appreciate consult -Continue medical management -Pain control: At this time -Aggressive ambulation protocol. OOB with all meals. OOB or in chair 4-5x daily. -PT/OT -TEDs, SCDs, mechanical ppx. OK for heparin today. Early ambulation is best. -GI ppx. -No further imaging needed at this time -Trend labs. -Dispo: Per primary team. No orthopedic surgical intervention warranted.
--- NOTE | 2020-08-07 11:40 | XR ---
Lumbar spine HISTORY: Trauma and pain 3 views of the lumbar spine Lumbar vertebral bodies show preserved height and alignment. There is multilevel spondylosis. Some lo ss of disc height present at L5-S1, L2-3 and L1-2. Bone mineralization is reduced. Multiple surgical clips are present in the pelvis, there are overlying artifacts. Sclerosis present in the posterior el ements of the lumbosacral junction. There are atherosclerotic vascular calcifications. Surgical clips are present in the right upper quadrant. IMPRESSION: No acute fracture or subluxation. Degenerative disc disease, osteopenia, facet arthropath y.
--- NOTE | 2020-08-07 11:42 | XR ---
Sacrum and coccyx HISTORY: Trauma and pain 3 views of the sacrum and coccyx Bone mineralization is reduced which could limit sensitivity. Alignment is maintained. Sacroiliac yovany nts are intact. Surgical clips are present. There are probable phleboliths noted. There is some poste rior subluxation, retrolisthesis grade 2 at the sacrococcygeal level. IMPRESSION: No acute fracture. Subluxation at the sacrococcygeal joint posteriorly.
--- NOTE | 2020-08-07 11:43 | XR ---
Bilateral knees HISTORY: Pain from fall 3 views of each knee Bilateral knee arthroplasties are present. Dense vascular calcifications are present. Bone mineraliza tion is reduced. Alignment is maintained. Suprapatellar increased density bilaterally suggest joint e ffusions. Spurring present at the posterior patella. IMPRESSION: No acute fracture or dislocation. Joint effusions are suspected.
--- NOTE | 2020-08-07 11:46 | US ---
EXAMINATION TYPE: US liver DATE OF EXAM: 08/07/2020 COMPARISON: CT 06/17/2020 CLINICAL HISTORY: elevated LFTS, ascites. HT 5'0", WT 267lb; cholecystectomy EXAM MEASUREMENTS: Liver Length: 11.4 cm Gallbladder Wall: surgically removed CBD: 0.4 cm Right Kidney: 10.7 x 4.9 x 4.9 cm Pancreas: hyperechoic Liver: no masses seen; right lobe partially obscured by overlying bowel gas and the echotexture suzie ewhat coarse, question a somewhat nodular contour Gallbladder: surgically absent Evidence for sonographic Flores's sign: no CBD: wnl Right Kidney: No hydronephrosis or masses seen medullary differentiation is maintained No ascites is seen. IMPRESSION: There are limitations to the exam. For underlying hepatocellular disease, cirrhosis Patie nt is post cholecystectomy.
[2020-08-07 12:15] LABS: Albumin 3.5 g/dL (3.5-5.0); Total Bilirubin 0.6 mg/dL (0.2-1.3); Total Protein 6.6 g/dL (6.3-8.2)
[2020-08-07 12:16] LABS: Potassium 3.8 mmol/L (3.5-5.1)
[2020-08-07 12:24] LABS: Anisocytosis Slight; Basophils # (A) 0.1 k/uL (0-0.2); Basophils % (A) 0 %; Eosinophils % (A) 6 %; HCT 27.4 % (34.0-46.0); HGB 7.9 gm/dL (11.4-16.0); Hypochromasia Marked; Lymphocytes # (A) 1.2 k/uL (1.0-4.8); Lymphocytes % (A) 6 %; MCH 25.5 pg (25.0-35.0); MCHC 28.8 g/dL (31.0-37.0); MCV 88.6 fL (80.0-100.0); Mean Platelet Volume 7.7; Monocytes # (A) 1.2 k/uL (0-1.0); Monocytes % (A) 6 %; Neutrophils # (A) 14.8 k/uL (1.3-7.7); Neutrophils % (A) 80 %; Platelet Count 161 k/uL (150-450); Poikilocytosis Marked; RDW 19.9 % (11.5-15.5); WBC 18.5 k/uL (3.8-10.6)
[2020-08-07 12:34] LABS: Glucose,Whole Blood 199 mg/dL (75-99)
[2020-08-07 12:41] LABS: Polychromasia Present; Stomatocytes Present
[2020-08-07 12:43] LABS: Toxic Granulation Present
--- NOTE | 2020-08-07 13:26 | P.PN ---
Subjective Progress Note Date: 08/07/20 History of present illness This is a pleasant 65-year-old female with past medical history significant for heart failure, COPD, diabetes, GI bleed with anemia presented to the emergency department yesterday with for evaluation of increased shortness of breath. Patient has frequent upper GI bleeds her last hospitalization she was transferred to [facility] where it was found to have angiodysplasia. Patient states that she had cauterization of the bleeds at [facility]. She also received multiple blood transfusions. Yesterday patient had increased shortness of breath that she states usually occurs when her hemoglobin decreases. Her last hemoglobin in her doctor's office was 8.6 last week. She is reporting black tarry stools and upper gastric pain. Patient denies chest pain. Patient reports dizziness and weakness. She does wear O2 at 2 L at home. Patient is found sitting up in bed with a nonrebreather in place. She is given 40 of Lasix due to increased shortness of breath. Awaiting GI consult and possible transfer to [facility]. Patient states that her bleeding did not stop after her last cauterization. Blood pressure 118/56, pulse rate 82, respirati ons 24, 100% on a nonrebreather. WC 12.9, hemoglobin 7.6, potassium 4.1, B UN 29, creatinine 0.86 08/03: Patient had 1 unit of packed red blood cells transfused. Hemoglobin this morning was 7.0 which is down from 7.4 after the last transfusion. We will order an additional 1 unit of packed red blood cells. Transfer to [facility] was in place. However the transfer was rejected by receiving hospital - transfer was not necessary and no beds. If hemoglobin continues to trend down and we will continue to work for transfer. In 06/03/2020 patient had cauterization of proximal small bowel angiodysplasia. On 06/30/2019 patient was found to be anemic and sent to [facility] for balloon enteroscopy which time she reports cauterization of bleeding angiectasia. While at home patient continued to have dark stools. At this time patient is found to be sitting up in a chair in no acute distress. Patient is currently on 4 L of nasal cannula past flexing 98%. Patient states that her breathing is much better. She denies any dark stools at this time. 08/04: Patient states that her breathing is sketchy. She is normally on 2 L nasal cannula at home. Repeat chest x-ray will be ordered for the morning. She states she has not had a bowel movement. She has increased generalized edema. GI is planning for push enteroscopy tomorrow. She is afebrile, heart rate 80, blood pressure 112/63, pulse ox 93% on 4 L nasal cannula. The PVC 14.7, hemoglobin 7.9, platelet 195. Sodium 137, potassium 5.5, chloride 94, CO2 37, BUN 33 and creatinine 1.21. Blood sugars running between 175 and 232. TSH 3.680. 08/05: Patient is going for endoscopy this morning. CO2 46, BUN 31 creatinine 1.26. Blood sugars running between 176 and 240. 1 additional dose of Diamox ordered. She has been afebrile, heart rate 68, blood pressure 114/56, pulse ox 96% on 4 L nasal cannula. No new complaints today. Amlodipine discontinued. Metolazone was started yesterday. 08/06: Push enteroscopy revealed no active bleeding, or blood or pathology to explain anemia. Mild gastritis. Patient was cleared to start diet and resume medications, continue PPI. Today, patient is complaining of pain across her abdomen. She denies having any diarrhea. She denies constipation. She did state she had a large bowel movement was pasty consistency. Maalox started. Raphael catheter will be discontinued today and increase activity. She is noted to have decreased edema. WBC 13.7, hemoglobin 7.6 Plan for possible discharge by tomorrow. 08/07: Patient had a fall in her room yesterday evening for which she landed on her buttocks. She complains of low back pain, sacral pain, bilateral knee pain. X-rays have been ordered and orthopedic consult added. Lab work ordered for this morning is not back at 1217. She has been afebrile, heart rate 64, blood pressure 116/60, pulse ox 94% on 4 L nasal cannula. Liver ultrasound ordered by GI reveals underlying hepatocellular disease, cirrhosis. X-rays of the bilateral knees shows no acute fracture or dislocation. Joint effusion suspected. Lumbar spine shows no acute fracture or subluxation. Degenerative disc disease, osteopenia, facet arthropathy. Patient has been seen by Dr. Goodmanson with plan for aggressive ambulation protocol. Out of bed or in chair 4-5 times per day. PT and OT have been consulted. Review Of Systems: Constitutional: No fever, no chills, no night sweats. No weight change. Reports weakness and fatigue no lethargy. No daytime sleepiness. EENT: No headache. No blurred vision or double vision, no loss of vision. No loss of Hearing, no ringing in the ears, no dizziness. No nasal drainage or congestion. No epistaxis. No sore throat. Lungs: Denies shortness of breath, reports cough, no sputum production. No wheezing. Dyspnea with exertion. Cardiovascular: No chest pain, no lower extremity edema. No palpitations. No paroxysmal nocturnal dyspnea. No orthopnea. No lightheadedness or dizziness. No syncopal episodes. Abdominal: reports epigastic pain. No nausea, vomiting. no diarrhea. No constipation. No bloody reports tarry stools. no loss of appetite. Genitourinary: No dysuria, increased frequency, urgency. No urinary retention. Musculoskeletal: No myalgias. No muscle weakness, no gait dysfunction, no frequent falls. Reports back pain. Reports bilateral knee pain and sacral pain. No neck pain. Integumentary: No wounds, no lesions. No rash or pruritus. No unusual bruising. No change in hair or nails. Neurologic: No aphasia. No facial droop. No change in mentation. No head injury. No headache. No paralysis. No paresthesia. Psychiatric: No depression. No anxiety. No mood swings. Endocrine: Reported abnormal blood sugars. No weight change. Physical examination General Appearance: Alert, cooperative, no distress, 65-year-old female patient sitting in a chair and appears to be comfortable. No acute distress noted. Respiratory status seems to be improving. Neck HEENT: Supple, no lymphadenopathy, no thyroid enlargement, no carotid bruits. Lungs: Diminished slightly to the bases. no rhonchi, no deformity. No accessory muscle usage. Chest Wall: Chest wall normal expansion with deep inspiration no tenderness and no deformity was found on exam, no costochondral pain or discomfort. Heart: Regular rate and rhythm, S1, S2 normal, systolic murmur present, no rub or gallop. Back: Symmetric, no curvature, ROM normal, no CVA tenderness. Abdomen: epigastric tenderness Soft,, no rebound or rigidity, no hepatosplenomegaly. Extremities: Extremities normal, atraumatic, no cyanosis or edema. Pulses: 2+ and symmetric. Skin: Bilateral lower extremity vascular dermatitis Skin color, texture, tugor normal, no rashes or lesions. Neurologic: Alert oriented x3 cranial nerves II through XII intact, no motor deficit, no abnormal balance or gait Assessment and plan 1. Acute hypoxic respiratory distress secondary to anemia and CHF. consult pulmonology appreciated, monitor hemoglobin, status post total of 2 units of packed RBCs. Transfer to [facility] was rejected. continue with DuoNeb, continue with oxygen support. Shortness of breath likely related to fluid overload rather than COPD. 2. Acute blood loss anemia. Consult GI appreciated, push endoscopy finding no pathology. 3. Chronic anemia, noted above 4. Exacerbation of diastolic heart failure. Consult cardiology, Lasix 40 mg IV push every 12 hours, K Dur 10 mEq by mouth twice a day 5. COPD, consult pulmonology appreciated, continue DuoNeb, oxygen support Shortness of breath likely related to fluid overload rather than COPD. 6. Diabetes mellitus Levemir 15 units twice a day, NovoLog sliding scale continuous Accu-Cheks before meals at bedtime 7. Stage III chronic kidney disease continuous hydration and fluid restrictions 8. Hypertension continue amlodipine, metoprolol, and spironolactone 9. Hyperlipidemia atorvastatin 40 mg daily 10. Hypothyroidism continue levothyroxine 125 g daily 13. Obstructive sleep apnea has CPAP at home 14. Chronic pain management. Remain on hydrocodone and Lyrica 16. History of depression continue Prozac 17. Vascular dermatitis , apply Silvadene cream and wrap with Neftali wrap daily. No concern for infection 18. Restless leg syndrome: Requip 2 mg twice a day 19. GI prophylaxis continuous Protonix 20. DVT prophylaxis pneumatic compression stockings 21. Fall with multiple pain issues to bilateral knees, sacrum. Orthopedic consult appreciated. PT and OT following. Discharge plan: Most likely ready for discharge in the next 24-48 hours. Impression and plan of care have been directed as dictated by the signing physician. Clarice Colón nurse practitioner acting as scribe for signing physician. Objective - Vital Signs Vital signs: Vital Signs Temp 98.3 F 08/06/20 20:00 Pulse 64 08/07/20 08:00 Resp 19 08/07/20 02:45 BP 111/59 08/07/20 02:37 Pulse Ox 93 L 08/07/20 02:15 Intake & Output 08/06/20 08/07/20 08/07/20 18:59 06:59 18:59 Intake Total 640 550 240 Output Total 1700 3500 Balance -1060 -2950 240 Intake: IV 20 Invasive Line 1 20 Oral 620 550 240 Output: Urine 1700 3500 Other: Voiding Method Indwelling Catheter Toilet Bedside Commode # Voids 1 1 # Bowel Movements 0 1 - Labs CBC & Chem 7: 08/07/20 10:32 08/07/20 10:32 Labs: Abnormal Lab Results - Last 24 Hours (Table) 08/06/20 08/06/20 08/06/20 Range/Units 09:26 09:26 11:49 WBC 13.7 H (3.8-10.6) k/uL RBC 2.91 L (3.80-5.40) m/uL Hgb 7.6 L (11.4-16.0) gm/dL Hct 26.0 L (34.0-46.0) % MCHC 29.3 L (31.0-37.0) g/dL RDW 19.2 H (11.5-15.5) % Neutrophils # 10.4 H (1.3-7.7) k/uL Monocytes # 1.1 H (0-1.0) k/uL Eosinophils # 0.9 H (0-0.7) k/uL Chloride 86 L (98-107) mmol/L Carbon Dioxide 44 H* (22-30) mmol/L BUN 31 H (7-17) mg/dL Creatinine 1.20 H (0.52-1.04) mg/dL Glucose 245 H (74-99) mg/dL POC Glucose (mg/dL) 311 H (75-99) mg/dL 08/06/20 08/06/20 08/07/20 Range/Units 17:04 20:52 02:02 WBC (3.8-10.6) k/uL RBC (3.80-5.40) m/uL Hgb (11.4-16.0) gm/dL Hct (34.0-46.0) % MCHC (31.0-37.0) g/dL RDW (11.5-15.5) % Neutrophils # (1.3-7.7) k/uL Monocytes # (0-1.0) k/uL Eosinophils # (0-0.7) k/uL Chloride (98-107) mmol/L Carbon Dioxide (22-30) mmol/L BUN (7-17) mg/dL Creatinine (0.52-1.04) mg/dL Glucose (74-99) mg/dL POC Glucose (mg/dL) 245 H 271 H 213 H (75-99) mg/dL 08/07/20 Range/Units 07:28 WBC (3.8-10.6) k/uL RBC (3.80-5.40) m/uL Hgb (11.4-16.0) gm/dL Hct (34.0-46.0) % MCHC (31.0-37.0) g/dL RDW (11.5-15.5) % Neutrophils # (1.3-7.7) k/uL Monocytes # (0-1.0) k/uL Eosinophils # (0-0.7) k/uL Chloride (98-107) mmol/L Carbon Dioxide (22-30) mmol/L BUN (7-17) mg/dL Creatinine (0.52-1.04) mg/dL Glucose (74-99) mg/dL POC Glucose (mg/dL) 185 H (75-99) mg/dL
--- NOTE | 2020-08-07 14:14 | P.PN ---
Subjective Progress Note Date: 08/07/20 Principal diagnosis: GI bleed, anemia Patient was seen and examined sitting up in a bedside chair. Apparently patient had a fall yesterday evening and fell on her knees. She states her breathing seems somewhat more difficult with ambulating. She states she still has some dark stools. Denies any abdominal pain, nausea, or vomiting. Tolerating her diet well. Objective - Vital Signs Vital signs: Vital Signs Temp 98.3 F 08/06/20 20:00 Pulse 64 08/07/20 08:00 Resp 19 08/07/20 02:45 BP 111/59 08/07/20 02:37 Pulse Ox 93 L 08/07/20 02:15 Intake & Output 08/06/20 08/07/20 08/07/20 18:59 06:59 18:59 Intake Total 640 550 240 Output Total 1700 3500 Balance -1060 -2950 240 Intake: IV 20 Invasive Line 1 20 Oral 620 550 240 Output: Urine 1700 3500 Other: Voiding Method Indwelling Catheter Toilet Bedside Commode # Voids 1 1 # Bowel Movements 0 1 - Exam General appearance: The patient is alert, oriented, appears in no acute distress. Morbidly obese HET: Head is normocephalic and atraumatic. Conjunctiva pink. Sclera anicteric. Neck: Supple without lymphadenopathy. Abdomen: Soft, obese, epigastric tenderness, nondistended with bowel sounds. No guarding or rigidity. Extremities: Normal skin color and turgor. Bilateral pedal edema Neurological: No focal deficits. Alert and oriented 3. - Labs CBC & Chem 7: 08/07/20 10:32 08/07/20 10:32 Labs: Abnormal Lab Results - Last 24 Hours (Table) 08/06/20 08/06/20 08/06/20 Range/Units 09:26 09:26 11:49 WBC 13.7 H (3.8-10.6) k/uL RBC 2.91 L (3.80-5.40) m/uL Hgb 7.6 L (11.4-16.0) gm/dL Hct 26.0 L (34.0-46.0) % MCHC 29.3 L (31.0-37.0) g/dL RDW 19.2 H (11.5-15.5) % Neutrophils # 10.4 H (1.3-7.7) k/uL Monocytes # 1.1 H (0-1.0) k/uL Eosinophils # 0.9 H (0-0.7) k/uL Chloride 86 L (98-107) mmol/L Carbon Dioxide 44 H* (22-30) mmol/L BUN 31 H (7-17) mg/dL Creatinine 1.20 H (0.52-1.04) mg/dL Glucose 245 H (74-99) mg/dL POC Glucose (mg/dL) 311 H (75-99) mg/dL 08/06/20 08/06/20 08/07/20 Range/Units 17:04 20:52 02:02 WBC (3.8-10.6) k/uL RBC (3.80-5.40) m/uL Hgb (11.4-16.0) gm/dL Hct (34.0-46.0) % MCHC (31.0-37.0) g/dL RDW (11.5-15.5) % Neutrophils # (1.3-7.7) k/uL Monocytes # (0-1.0) k/uL Eosinophils # (0-0.7) k/uL Chloride (98-107) mmol/L Carbon Dioxide (22-30) mmol/L BUN (7-17) mg/dL Creatinine (0.52-1.04) mg/dL Glucose (74-99) mg/dL POC Glucose (mg/dL) 245 H 271 H 213 H (75-99) mg/dL 08/07/20 Range/Units 07:28 WBC (3.8-10.6) k/uL RBC (3.80-5.40) m/uL Hgb (11.4-16.0) gm/dL Hct (34.0-46.0) % MCHC (31.0-37.0) g/dL RDW (11.5-15.5) % Neutrophils # (1.3-7.7) k/uL Monocytes # (0-1.0) k/uL Eosinophils # (0-0.7) k/uL Chloride (98-107) mmol/L Carbon Dioxide (22-30) mmol/L BUN (7-17) mg/dL Creatinine (0.52-1.04) mg/dL Glucose (74-99) mg/dL POC Glucose (mg/dL) 185 H (75-99) mg/dL Assessment and Plan (1) Anemia Narrative/Plan: 65-year-old female with multiple medical comorbidities including prior GI bleed with multiple endoscopies in the past year including a locally on 05/2020 with findings of proximal small bowel angiectasia treated with coagulation therapy the patient was recently sent to [facility] where she reports push enteroscopy with treatment of angiectasia and presented for shortness of breath. Chest x-ray suggestive of fluid overload from congestive heart failure. Anemia likely multifactorial given known history of small bowel GI bleeding as well as likely component of anemia of chronic disease hemoglobin 7.0 this morning with one additional unit of packed red blood cells ordered.. Current Visit: Yes Status: Acute Code(s): D64.9 - ANEMIA, UNSPECIFIED SNOMED Code(s): 482108872 (2) GI bleed Narrative/Plan: She is status post push enteroscopy yesterday with no bleeding, mild gastritis. Current Visit: Yes Status: Acute Code(s): K92.2 - GASTROINTESTINAL HEMORRHAGE, UNSPECIFIED SNOMED Code(s): 93937773 (3) Melena Current Visit: No Status: Acute Code(s): K92.1 - MELENA SNOMED Code(s): 9856182 Plan: Supportive care Diet as tolerated Patient is status post push enteroscopy Continue to monitor CBC and transfuse as needed Continue to monitor for signs or symptoms of GI bleed Continue Protonix therapy There are no plans for any further endoscopies at this point. If patient continues to have GI bleed or drop in hemoglobin would recommend transfer to tertiary center for advanced endoscopy. Thank you for allowing us to participate in the care of your patient, we will sign off at this time. I agree with the dictator's note, documented as a scribe by Cinthya Montoya.
[2020-08-07 16:47] LABS: Glucose,Whole Blood 268 mg/dL (75-99)
[2020-08-07 19:41] LABS: Glucose,Whole Blood 351 mg/dL (75-99)
[2020-08-07] MEDS: MONTELUKAST 10 MG TAB PO SCH (20:45)
[2020-08-07] MEDS: HYDROmorphone 0.5 MG/0.5 ML SYRINGE IVP PRN (21:50)
[2020-08-07] MEDS: methocarbamoL 500 MG TAB PO PRN (23:45)
[2020-08-08 06:21] LABS: Glucose,Whole Blood 310 mg/dL (75-99)
[2020-08-08] MEDS: LEVOTHYROXINE 125 MCG TAB PO SCH (06:41)
[2020-08-08] MEDS: INSULIN DETEMIR (LEVEMIR) 100 UNIT/ML SYR SQ SCH (06:41)
[2020-08-08] MEDS: INSULIN ASPART (NovoLOG) 100 UNIT/ML VIAL SQ SCH ×2 (06:41→12:57)
[2020-08-08] MEDS: HYDROmorphone 0.5 MG/0.5 ML SYRINGE IVP PRN (06:43)
[2020-08-08] MEDS: SYMBICORT 160-4.5 MCG INHALER INHALATION SCH (07:34)
[2020-08-08] MEDS: IPRATROPIUM-ALBUTEROL 3 ML NEB INHALATION SCH ×2 (07:34→11:52)
[2020-08-08] MEDS: SENNOSIDES 8.6 MG TAB PO SCH (09:13)
[2020-08-08] MEDS: ISOSORBIDE MONONITRATE ER 30 MG TAB.ER.24H PO SCH (09:13)
[2020-08-08] MEDS: METOPROLOL TARTRATE 50 MG TAB PO SCH (09:13)
[2020-08-08] MEDS: acetaZOLAMIDE 250 MG TAB PO SCH (09:13)
[2020-08-08] MEDS: ATORVASTATIN 40 MG TAB PO SCH (09:13)
[2020-08-08] MEDS: metOLazone 2.5 MG TAB PO SCH (09:13)
[2020-08-08] MEDS: FLUoxetine HCL 20 MG CAP PO SCH (09:13)
[2020-08-08] MEDS: PREGABALIN 100 MG CAP PO SCH (09:14)
[2020-08-08] MEDS: PANTOPRAZOLE 40 MG/10 ML VIAL IV SCH (09:14)
[2020-08-08] MEDS: SPIRONOLACTONE 25 MG TAB PO SCH (09:14)
[2020-08-08] MEDS: MAG HYDROX/AL HYDROX/SIMETH 30 ML CUP PO SCH ×2 (09:15→12:52)
[2020-08-08] MEDS: SILVER sulfADIAZINE Cream 400 GM 1 APPLIC APPLIC TOPICAL SCH (09:15)
[2020-08-08] MEDS: POTASSIUM CHLORIDE ER 10 MEQ TAB.ER.PRT PO SCH (09:15)
[2020-08-08 10:13] VITALS: BP 115/59; RESP 16; TEMP 97.9
[2020-08-08 12:03] VITALS: PULSE 66
[2020-08-08 12:06] LABS: Glucose,Whole Blood 247 mg/dL (75-99)
[2020-08-08 12:49] LABS: Anisocytosis Slight; HCT 27.6 % (34.0-46.0); Hypochromasia Marked; MCH 25.4 pg (25.0-35.0); MCHC 28.9 g/dL (31.0-37.0); MCV 87.9 fL (80.0-100.0); Platelet Count 169 k/uL (150-450); Poikilocytosis Marked; RBC 3.14 m/uL (3.80-5.40); RDW 19.6 % (11.5-15.5); WBC 16.1 k/uL (3.8-10.6)
[2020-08-08] MEDS: FUROSEMIDE 10 MG/ML 10 ML VIAL IV SCH (12:49)
[2020-08-08 13:01] LABS: Albumin 3.6 g/dL (3.5-5.0); Calcium 8.9 mg/dL (8.4-10.2); Potassium 3.9 mmol/L (3.5-5.1); Total Bilirubin 0.6 mg/dL (0.2-1.3); Total Protein 6.8 g/dL (6.3-8.2)
--- NOTE | 2020-08-08 14:03 | P.DS ---
Providers Date of admission: 08/02/20 02:36 Expected date of discharge: 08/08/20 Attending physician: Jose C Altamirano MD Consults: 08/02/20 02:34 Consult Physician Routine Consulting Provider: Vivian Samayoa Consult Reason/Comments: GI bleed Do you want consulting provider notified?: Yes 08/02/20 08:18 Consult Physician Routine Consulting Provider: Ronen Wynne Consult Reason/Comments: sob Do you want consulting provider notified?: Yes 08/07/20 09:48 Consult Physician Routine Consulting Provider: Bruce Valle Consult Reason/Comments: fall, bilat knee and coccyx injury Do you want consulting provider notified?: Yes Primary care physician: [facility] Course: History of present illness This is a pleasant 65-year-old female with past medical history significant for heart failure, COPD, diabetes, GI bleed with anemia presented to the emergency department yesterday with for evaluation of increased shortness of breath. Patient has frequent upper GI bleeds her last hospitalization she was transferred to [place] where it was found to have angiodysplasia. Patient states that she had cauterization of the bleeds at [place]. She also received multiple blood transfusions. Yesterday patient had increased shortness of breath that she states usually occurs when her hemoglobin decreases. Her last hemoglobin in her doctor's office was 8.6 last week. She is reporting black tarry stools and upper gastric pain. Patient denies chest pain. Patient reports dizziness and weakness. She does wear O2 at 2 L at home. Patient is found sitting up in bed with a nonrebreather in place. She is given 40 of Lasix due to increased shortness of breath. Awaiting GI consult and possible transfer to [place]. Patient states that her bleeding did not stop after her last cauterization. Blood pressure 118/56, pulse rate 82, respirations 24, 100% on a nonrebreather. WC 12.9, hemoglobin 7.6, potassium 4.1, B UN 29, creatinine 0.86 08/03: Patient had 1 unit of packed red blood cells transfused. Hemoglobin this morning was 7.0 which is down from 7.4 after the last transfusion. We will order an additional 1 unit of packed red blood cells. Transfer to [facility] was in place. However the transfer was rejected by receiving hospital - transfer was not necessary and no beds. If hemoglobin continues to trend down and we will continue to work for transfer. In 06/03/2020 patient had cauterization of proximal small bowel angiodysplasia. On 06/30/2019 patient was found to be anemic and sent to [place] for balloon enteroscopy which time she reports cauterization of bleeding angiectasia. While at home patient continued to have dark stools. At this time patient is found to be sitting up in a chair in no acute distress. Patient is currently on 4 L of nasal cannula past flexing 98%. Patient states that her breathing is much better. She denies any dark stools at this time. 08/04: Patient states that her breathing is sketchy. She is normally on 2 L nasal cannula at home. Repeat chest x-ray will be ordered for the morning. She states she has not had a bowel movement. She has increased generalized edema. GI is planning for push enteroscopy tomorrow. She is afebrile, heart rate 80, blood pressure 112/63, pulse ox 93% on 4 L nasal cannula. The PVC 14.7, he moglobin 7.9, platelet 195. Sodium 137, potassium 5.5, chloride 94, CO2 37, BUN 33 and creatinine 1.21. Blood sugars running between 175 and 232. TSH 3.680. 08/05: Patient is going for endoscopy this morning. CO2 46, BUN 31 creatinine 1.26. Blood sugars running between 176 and 240. 1 additional dose of Diamox ordered. She has been afebrile, heart rate 68, blood pressure 114/56, pulse ox 96% on 4 L nasal cannula. No new complaints today. Amlodipine discontinued. Metolazone was started yesterday. 08/06: Push enteroscopy revealed no active bleeding, or blood or pathology to explain anemia. Mild gastritis. Patient was cleared to start diet and resume medications, continue PPI. Today, patient is complaining of pain across her abdomen. She denies having any diarrhea. She denies constipation. She did state she had a large bowel movement was pasty consistency. Maalox started. Raphael catheter will be discontinued today and increase activity. She is noted to have decreased edema. WBC 13.7, hemoglobin 7.6 Plan for possible discharge by tomorrow. 08/07: Patient had a fall in her room yesterday evening for which she landed on her buttocks. She complains of low back pain, sacral pain, bilateral knee pain. X-rays have been ordered and orthopedic consult added. Lab work ordered for this morning is not back at 1217. She has been afebrile, heart rate 64, blood pressure 116/60, pulse ox 94% on 4 L nasal cannula. Liver ultrasound ordered by GI reveals underlying hepatocellular disease, cirrhosis. X-rays of the bilateral knees shows no acute fracture or dislocation. Joint effusion suspected. Lumbar spine shows no acute fracture or subluxation. Degenerative disc disease, osteopenia, facet arthropathy. Patient has been seen by Dr. Valle with plan for aggressive ambulation protocol. Out of bed or in chair 4-5 times per day. PT and OT have been consulted. 08/08: She is on IV Lasix which we will transition to 60 mg oral twice daily. Pulse ox is 93% on 3 L nasal cannula. Patient has been afebrile, heart rate 66, blood pressure 115/59. Repeat blood work reveals the PVC 16.1, hemoglobin 8, platelet count 169. Sodium 135, potassium 2.9, chloride 83, BUN 29 creatinine 1.29. Blood sugars are between 212 and 310. Alkaline phosphatase 132. Patient will be discharged home today in stable condition. She does have an appointment for follow-up with GI for further treatment as an outpatient. Assessment and plan 1. Acute hypoxic respiratory distress secondary to anemia and CHF. 2. Acute blood loss anemia. 3. Chronic anemia, noted above 4. Acute on chronic diastolic heart failure. 5. COPD 6. Diabetes mellitus 7. Stage III chronic kidney disease 8. Hypertension 9. Hyperlipidemia 10. Hypothyroidism 13. Obstructive sleep apnea has CPAP 14. Chronic pain management 16. Recurrent depression 17. Vascular dermatitis 18. Restless leg syndrome 19. Fall with multiple pain issues to bilateral knees, sacrum, sprains. 20. Chronic hypoxic respiratory failure with home O2 at 2-3 L nasal cannula. Discharge plan: home Impression and plan of care have been directed as dictated by the signing physician. Clarice Colón nurse practitioner acting as scribe for signing physician. Patient Condition at Discharge: Good Plan - Discharge Summary New Discharge Prescriptions: New Spironolactone [Aldactone] 25 mg PO DAILY tab Ipratropium-Albuterol Nebulize [Duoneb 0.5 mg-3 mg/3 ml Soln] 3 ml INHALATION RT-QID ml Isosorbide Mononitrate ER [Imdur] 30 mg PO DAILY tab.er.24h Potassium Chloride ER [K-Dur 10] 10 meq PO BID tab.er.prt Insulin Detemir (Levemir) [Levemir] 15 unit SQ BID@0700,2100 syr Atorvastatin [Lipitor] 40 mg PO DAILY tab Metoprolol Tartrate [Lopressor] 100 mg PO BID tab Pregabalin [Lyrica] 200 mg PO BID cap INSULIN ASPART (NovoLOG) [NovoLOG (formulary)] 0 unit SQ ACHS vial FLUoxetine HCL [PROzac] 20 mg PO DAILY cap rOPINIRole HCL [Requip] 2 mg PO BID tab methocarbamoL [Robaxin] 500 mg PO BID PRN tab PRN Reason: Muscle Spasm Sennosides-Docusate Sodium [Senokot-S] 1 each PO BID PRN tab PRN Reason: Constipation SILVER sulfADIAZINE CREAM [Silvadene Cream] 1 applic TOPICAL DAILY applic Montelukast [Singulair] 10 mg PO HS tab Budesonide-Formot 160-4.5 Mcg [Symbicort 160-4.5 Mcg Inhaler] 2 puff INHALATION RT-BID puff Levothyroxine Sodium [Synthroid] 125 mcg PO DAILY@0630 tab Furosemide [Lasix] 60 mg PO BID #60 tab Pantoprazole Sodium [Protonix] 40 mg PO AC-BID #60 tablet. metOLazone [Zaroxolyn] 2.5 mg PO MoWeFr@0900 #30 tab Discontinued rOPINIRole HCL [Requip] 2 mg PO BID Budesonide-Formot 160-4.5 Mcg [Symbicort 160-4.5 Mcg Inhaler] 2 puff INHALATION RT-BID Potassium Chloride ER [K-Dur 10] 10 meq PO BID Nitroglycerin Sl Tabs [Nitrostat] 0.4 mg SUBLINGUAL Q5M PRN PRN Reason: Chest Pain Montelukast Sodium [Singulair] 10 mg PO HS Levothyroxine Sodium 125 mcg PO DAILY sitaGLIPtin [Januvia] 100 mg PO DAILY Isosorbide Mononitrate ER [Imdur] 30 mg PO DAILY Glimepiride [Amaryl] 2 mg PO DAILY Atorvastatin [Lipitor] 40 mg PO DAILY Albuterol Nebulized [Ventolin Nebulized] 2.5 mg INHALATION RT-QID PRN PRN Reason: Shortness Of Breath Albuterol Inhaler [Ventolin Hfa Inhaler] 1 - 2 puff INHALATION RT-QID PRN PRN Reason: Shortness Of Breath Pregabalin [Lyrica] 200 mg PO BID #6 cap Pantoprazole [Protonix] 40 mg PO BID #0 Sennosides-Docusate Sodium [Senokot-S] 1 tab PO BID PRN PRN Reason: Constipation amLODIPine [Norvasc] 5 mg PO DAILY Spironolactone [Aldactone] 25 mg PO DAILY Metoprolol Tartrate [Lopressor] 100 mg PO BID Insulin Aspart [NovoLOG Flexpen] See Protocol SQ ACHS FLUoxetine HCL [PROzac] 20 mg PO DAILY Tiotropium 2.5 Mcg/Puff [Spiriva Respimat 2.5 Mcg] 2 puff INHALATION RT-DAILY #1 inhaler Insulin Aspart [NovoLOG Flexpen] 15 units SQ AC-TID Insulin Glargine,Hum.rec.anlog [Toujeo Solostar] 30 units SQ BID Bumetanide [Bumex] 2 mg PO BID Discharge Medication List Atorvastatin [Lipitor] 40 mg PO DAILY tab 08/03/20 [Rx] Budesonide-Formot 160-4.5 Mcg [Symbicort 160-4.5 Mcg Inhaler] 2 puff INHALATION RT-BID puff 08/03/20 [Rx] FLUoxetine HCL [PROzac] 20 mg PO DAILY cap 08/03/20 [Rx] INSULIN ASPART (NovoLOG) [NovoLOG (formulary)] 0 unit SQ ACHS vial 08/03/20 [Rx] Insulin Detemir (Levemir) [Levemir] 15 unit SQ BID@0700,2100 syr 08/03/20 [Rx] Ipratropium-Albuterol Nebulize [Duoneb 0.5 mg-3 mg/3 ml Soln] 3 ml INHALATION RT-QID ml 08/03/20 [Rx] Isosorbide Mononitrate ER [Imdur] 30 mg PO DAILY tab.er.24h 08/03/20 [Rx] Levothyroxine Sodium [Synthroid] 125 mcg PO DAILY@0630 tab 08/03/20 [Rx] Metoprolol Tartrate [Lopressor] 100 mg PO BID tab 08/03/20 [Rx] Montelukast [Singulair] 10 mg PO HS tab 08/03/20 [Rx] Potassium Chloride ER [K-Dur 10] 10 meq PO BID tab.er.prt 08/03/20 [Rx] Pregabalin [Lyrica] 200 mg PO BID cap 08/03/20 [Rx] SILVER sulfADIAZINE CREAM [Silvadene Cream] 1 applic TOPICAL DAILY applic 08/03/20 [Rx] Sennosides-Docusate Sodium [Senokot-S] 1 each PO BID PRN tab 08/03/20 [Rx] Spironolactone [Aldactone] 25 mg PO DAILY tab 08/03/20 [Rx] methocarbamoL [Robaxin] 500 mg PO BID PRN tab 08/03/20 [Rx] rOPINIRole HCL [Requip] 2 mg PO BID tab 08/03/20 [Rx] Furosemide [Lasix] 60 mg PO BID #60 tab 08/08/20 [Rx] Pantoprazole Sodium [Protonix] 40 mg PO AC-BID #60 tablet.dr 08/08/20 [Rx] metOLazone [Zaroxolyn] 2.5 mg PO MoWeFr@0900 #30 tab 08/08/20 [Rx] Follow up Appointment(s)/Referral(s): Harish Reyes MD [STAFF PHYSICIAN] - 1 Week (Laboratory [facility] referral for anemia. ) Margoth Enriquez NPC [Nurse Practitioner] - 08/21/20 2:30 pm Yoel Deras MD [Primary Care Provider] - 08/14/20 11:30 am (With Wendy HIGGINBOTHAM.) Prince Bess MD [STAFF PHYSICIAN] - 08/19/20 10:30 am (With Rylee DELGADO) Patient Instructions/Handouts: Gastrointestinal Bleeding (DC), Diet for Stomach Ulcers and Gastritis (ED), Anemia (DC) Activity/Diet/Wound Care/Special Instructions: CHF 1. Weigh yourself every morning after you urinate. If you gain 2-3 pounds overnight or 5 pounds in one week, call your primary physician for guidance on your medications. Keep a log of your weights. 2. Avoid salt, or foods with hidden salt. Extra salt makes your heart work harder and traps the fluid in your body for longer. 3. Take all of your medications as directed, especially your water pills. NEVER skip a dose. 4. Elevate your legs when you are not up moving around to help with circulation and prevent swelling. 5. Call your physician if you notice any extra swelling in your legs, ankles, feet or abdomen, if you have a new dry cough, if your shortness of breath worsens with activity or at rest, or if you feel more fatigued. GI BLEED 1. Take all new medication as directed. 2. Avoid and foods that can be irritating to your intestines; Caffeine, acidic, spicy foods or foods that cause heartburn. 3. Avoid Motrin (ibuprofen) and Aleve (naproxen). These medications can increase your risk of internal bleeding. Tylenol (acetaminophen) is safe to take as long as you do not have any liver disease. 4. Avoid drinking alcohol and smoking, these can also irritate your intestines and increase risk of internal bleeding. 5. Increase activity gradually, do not overexert yourself. Your blood count is lower and your body will need time to recover. 6. Warning signs of GI Bleeding: a. Black or tarry colored stools b. Bright red blood from rectum c. Bright red or dark blood mixed with stool d. Bright red vomit e. Vomit that looks like coffee grounds f. Signs that also may occur are dizziness, faintness, paleness, shortness of breath, weakness and overall feeling of fatigue. Discharge Disposition: HOME WITH HOME HEALTH SERVICES
== END 2020-08-08 16:00 | disposition home health service (06) | DRG 811 ==
LOC: EC 00:11 → 3SCARD 02:36
PROVIDERS: ADMIT Internal Medicine; ATTEND Internal Medicine
PROC: 30233N1 Transfusion of Nonautologous Red Blood Cells into Peripheral Vein, Percutaneous Approach (ICD-10-PCS; 2020-08-05)
PROC: 0DJD8ZZ Inspection of Lower Intestinal Tract, Via Natural or Artificial Opening Endoscopic (ICD-10-PCS; principal; 2020-08-05 11:35)
DX: D62 Acute posthemorrhagic anemia (principal); I50.33 Acute on chronic diastolic (congestive) heart failure; J96.21 Acute and chronic respiratory failure with hypoxia; I13.0 Hypertensive heart and chronic kidney disease with heart failure and stage 1 through stage 4 chronic kidney disease, or unspecified chronic kidney disease; F33.9 Major depressive disorder, recurrent, unspecified; G47.33 Obstructive sleep apnea (adult) (pediatric); G25.81 Restless legs syndrome; I08.0 Rheumatic disorders of both mitral and aortic valves; E11.22 Type 2 diabetes mellitus with diabetic chronic kidney disease; E11.40 Type 2 diabetes mellitus with diabetic neuropathy, unspecified; E66.01 Morbid (severe) obesity due to excess calories; Z20.822 Contact with and (suspected) exposure to COVID-19; E78.5 Hyperlipidemia, unspecified; N18.30 Chronic kidney disease, stage 3 unspecified; M85.80 Other specified disorders of bone density and structure, unspecified site; K29.70 Gastritis, unspecified, without bleeding; E03.9 Hypothyroidism, unspecified; D63.1 Anemia in chronic kidney disease; K55.20 Angiodysplasia of colon without hemorrhage; L30.9 Dermatitis, unspecified; I49.3 Ventricular premature depolarization; J44.9 Chronic obstructive pulmonary disease, unspecified; Z96.653 Presence of artificial knee joint, bilateral; Z90.710 Acquired absence of both cervix and uterus; I25.2 Old myocardial infarction; Z87.891 Personal history of nicotine dependence; Z87.01 Personal history of pneumonia (recurrent); Z79.899 Other long term (current) drug therapy; Z79.890 Hormone replacement therapy; Z79.51 Long term (current) use of inhaled steroids; Z79.4 Long term (current) use of insulin; Z88.8 Allergy status to other drugs, medicaments and biological substances
CPT/HCPCS: 36415; 36600; 44360; 71045; 71046; 72100; 72220; 76705; 80048; 80053; 82805; 83036; 83605; 83690; 83880; 84145; 84443; 84484; 85025; 85027; 85610; 85730; 86850; 86900; 86901; 86920; 87635; 93005; 94640; 94660; 94760; 96374; 96375; 99285

== ENCOUNTER 2020-08-26 12:19 | Inpatient (IN) | payer MEDICARE, OTHER ==
[2020-08-26] MEDS ORDERED: SODIUM CHLORIDE 0.9% 500 ML 500 ML IV STA (12:45)
--- NOTE | 2020-08-26 12:57 | ED ---
General Adult HPI - General Chief complaint: Recheck/Abnormal Lab/Rx Stated complaint: Abnormal labs Time Seen by Provider: 08/26/20 12:20 Source: patient, RN notes reviewed, old records reviewed Mode of arrival: wheelchair Limitations: no limitations - History of Present Illness Initial comments: This is a 65-year-old female who presents to the emergency department with the complaint that her hemoglobin is low. Patient states she was seen by Dr. Deras today and he sent her to the emergency department. Patient states she's been weak over the last 3 days and also mildly short of breath. Patient states that she has a history of anemia and GI bleed congestive heart failure and hypertension high cholesterol and diabetes. Patient denies any recent fever chills or cough. Patient denies any nausea vomiting or diarrhea. Patient denies any headache patient denies numbness weakness. Patient's denies chest pain but does states she feels somewhat short of breath. - Related Data Previous Rx's Medication Instructions Recorded Atorvastatin [Lipitor] 40 mg PO DAILY tab 08/03/20 Budesonide-Formot 160-4.5 Mcg 2 puff INHALATION RT-BID puff 08/03/20 [Symbicort 160-4.5 Mcg Inhaler] FLUoxetine HCL [PROzac] 20 mg PO DAILY cap 08/03/20 INSULIN ASPART (NovoLOG) [NovoLOG 0 unit SQ ACHS vial 08/03/20 (formulary)] Ipratropium-Albuterol Nebulize 3 ml INHALATION RT-QID ml 08/03/20 [Duoneb 0.5 mg-3 mg/3 ml Soln] Isosorbide Mononitrate ER [Imdur] 30 mg PO DAILY tab.er.24h 08/03/20 Levothyroxine Sodium [Synthroid] 125 mcg PO DAILY@0630 tab 08/03/20 Metoprolol Tartrate [Lopressor] 100 mg PO BID tab 08/03/20 Montelukast [Singulair] 10 mg PO HS tab 08/03/20 Potassium Chloride ER [K-Dur 10] 10 meq PO BID tab.er.prt 08/03/20 Pregabalin [Lyrica] 200 mg PO BID cap 08/03/20 SILVER sulfADIAZINE CREAM 1 applic TOPICAL DAILY applic 08/03/20 [Silvadene Cream] Sennosides-Docusate Sodium 1 each PO BID PRN tab 08/03/20 [Senokot-S] Spironolactone [Aldactone] 25 mg PO DAILY tab 08/03/20 methocarbamoL [Robaxin] 500 mg PO BID PRN tab 08/03/20 rOPINIRole HCL [Requip] 2 mg PO BID tab 08/03/20 Furosemide [Lasix] 60 mg PO BID #60 tab 08/08/20 Pantoprazole Sodium [Protonix] 40 mg PO AC-BID #60 tablet.dr 08/08/20 Potassium Chloride ER [K-Dur 10] 10 meq PO BID #30 tab 08/08/20 metOLazone [Zaroxolyn] 2.5 mg PO MoWeFr@0900 #30 tab 08/08/20 Allergies Allergy/AdvReac Type Severity Reaction Status Date / Time cisatracurium [From Nimbex] Allergy Rash/Hives Verified 08/26/20 12:25 Review of Systems ROS Statement: Those systems with pertinent positive or pertinent negative responses have been documented in the HPI. ROS Other: All systems not noted in ROS Statement are negative. Past Medical History Past Medical History: Heart Failure, COPD, Diabetes Mellitus, GI Bleed, Pneumonia, Respiratory Disorder Additional Past Medical History / Comment(s): heart murmur, neuropathy, scope done Last Myocardial Infarction Date:: 2018 History of Any Multi-Drug Resistant Organisms: None Reported Date of last positivie culture/infection: 04/2019 MDRO Source:: URINE Past Surgical History: Section, Cholecystectomy, Heart Catheterization, Hysterectomy, Orthopedic Surgery Additional Past Surgical History / Comment(s): Gi cauterization 02/22/2020; heart cath 12/26/2019; cataracts removal, lens placement. FREQUENT BLOOD TRANFUSIONS Past Anesthesia/Blood Transfusion Reactions: Previous Problems w/ Anesthesia Additional Past Anesthesia/Blood Transfusion Reaction / Comment(s): ALLERGY TO CISATRACURIUM- FACE TURNED RED/SWOLLEN Past Psychological History: No Psychological Hx Reported Smoking Status: Never smoker Past Alcohol Use History: None Reported Past Drug Use History: None Reported - Past Family History Mother Family Medical History: Renal Disease Additional Family Medical History / Comment(s): Mother was on Hemodilaysis General Exam - General Exam Comments Initial Comments: GENERAL: Patient is well-developed and well-nourished. Patient is nontoxic and well- hydrated and is in mild distress. ENT: Neck is soft and supple. No significant lymphadenopathy is noted. Oropharynx is clear. Moist mucous membranes. Neck has full range of motion without eliciting any pain. EYES: The sclera were anicteric and conjunctiva is pale. Extraocular movements were intact and pupils were equal round and reactive to light. Eyelids were unremarkable. PULMONARY: Unlabored respirations. Good breath sounds bilaterally. No audible rales rhonchi or wheezing was noted. CARDIOVASCULAR: There is a regular rate and rhythm without any murmurs gallops or rubs. ABDOMEN: Soft and nontender with normal bowel sounds. No palpable organomegaly was noted. There is no palpable pulsatile mass. SKIN: Skin is pale. NEUROLOGIC: Patient is alert and oriented x3. Cranial nerves II through XII are grossly intact. Motor and sensory are also intact. Normal speech, volume and content. Symmetrical smile. MUSCULOSKELETAL: Normal extremities with adequate strength and full range of motion. LYMPHATICS: No significant lymphadenopathy is noted PSYCHIATRIC: Normal psychiatric evaluation. Limitations: no limitations Course Vital Signs 08/26/20 12:21 Temperature 97.6 F Pulse Rate 75 Respiratory 20 Rate Blood Pressure 114/50 O2 Sat by Pulse 100 Oximetry Medical Decision Making - Medical Decision Making EKG shows normal sinus rhythm at 69 bpm DE interval 250 QRS is 90 QT interval 4:30 QTC is 460 per patient's EKG shows no ST segment elevation or depression. Patient's hemoglobin was 6.7. I started a unit of packed red blood cells on the patient. I spoke with Dr. Denny she agreed to admit the patient admitted the patient wrote admitting orders I consulted to my did CBCs every 6 hours. - Lab Data Result diagrams: 08/26/20 12:54 08/26/20 12:54 Lab Results 08/26/20 08/26/20 08/26/20 Range/Units 12:54 12:54 12:54 WBC 14.4 H (3.8-10.6) k/uL RBC 2.93 L (3.80-5.40) m/uL Hgb 6.7 L* (11.4-16.0) gm/dL Hct 23.3 L (34.0-46.0) % MCV 79.5 L D (80.0-100.0) fL MCH 22.8 L (25.0-35.0) pg MCHC 28.7 L (31.0-37.0) g/dL RDW 18.3 H (11.5-15.5) % Plt Count 434 D (150-450) k/uL MPV 7.2 Neutrophils % 78 % Lymphocytes % 8 % Monocytes % 7 % Eosinophils % 4 % Basophils % 1 % Neutrophils # 11.3 H (1.3-7.7) k/uL Lymphocytes # 1.2 (1.0-4.8) k/uL Monocytes # 1.0 (0-1.0) k/uL Eosinophils # 0.6 (0-0.7) k/uL Basophils # 0.1 (0-0.2) k/uL Manual Slide Review Performed Toxic Granulation Present Polychromasia Present Hypochromasia Marked Poikilocytosis Marked Anisocytosis Slight Microcytosis Slight PT 9.8 (9.0-12.0) sec INR 0.9 (<1.2) APTT 20.5 L (22.0-30.0) sec Sodium 137 (137-145) mmol/L Potassium 4.1 (3.5-5.1) mmol/L Chloride 93 L (98-107) mmol/L Carbon Dioxide 34 H (22-30) mmol/L Anion Gap 10 mmol/L BUN 50 H (7-17) mg/dL Creatinine 1.39 H (0.52-1.04) mg/dL Est GFR (CKD-EPI)AfAm 46 (>60 ml/min/1.73 sqM) Est GFR (CKD-EPI)NonAf 40 (>60 ml/min/1.73 sqM) Glucose 164 H (74-99) mg/dL Calcium 8.6 (8.4-10.2) mg/dL Magnesium 2.5 H (1.6-2.3) mg/dL Total Bilirubin 0.5 (0.2-1.3) mg/dL AST 24 (14-36) U/L ALT 18 (4-34) U/L Alkaline Phosphatase 148 H (38-126) U/L Troponin I (0.000-0.034) ng/mL Total Protein 7.1 (6.3-8.2) g/dL Albumin 4.0 (3.5-5.0) g/dL Blood Type Blood Type Recheck Bld Type Recheck Status Antibody Screen Crossmatch Spec Expiration Date 08/26/20 08/26/20 Range/Units 12:54 12:54 WBC (3.8-10.6) k/uL RBC (3.80-5.40) m/uL Hgb (11.4-16.0) gm/dL Hct (34.0-46.0) % MCV (80.0-100.0) fL MCH (25.0-35.0) pg MCHC (31.0-37.0) g/dL RDW (11.5-15.5) % Plt Count (150-450) k/uL MPV Neutrophils % % Lymphocytes % % Monocytes % % Eosinophils % % Basophils % % Neutrophils # (1.3-7.7) k/uL Lymphocytes # (1.0-4.8) k/uL Monocytes # (0-1.0) k/uL Eosinophils # (0-0.7) k/uL Basophils # (0-0.2) k/uL Manual Slide Review Toxic Granulation Polychromasia Hypochromasia Poikilocytosis Anisocytosis Microcytosis PT (9.0-12.0) sec INR (<1.2) APTT (22.0-30.0) sec Sodium (137-145) mmol/L Potassium (3.5-5.1) mmol/L Chloride (98-107) mmol/L Carbon Dioxide (22-30) mmol/L Anion Gap mmol/L BUN (7-17) mg/dL Creatinine (0.52-1.04) mg/dL Est GFR (CKD-EPI)AfAm (>60 ml/min/1.73 sqM) Est GFR (CKD-EPI)NonAf (>60 ml/min/1.73 sqM) Glucose (74-99) mg/dL Calcium (8.4-10.2) mg/dL Magnesium (1.6-2.3) mg/dL Total Bilirubin (0.2-1.3) mg/dL AST (14-36) U/L ALT (4-34) U/L Alkaline Phosphatase (38-126) U/L Troponin I <0.012 (0.000-0.034) ng/mL Total Protein (6.3-8.2) g/dL Albumin (3.5-5.0) g/dL Blood Type A Positive Blood Type Recheck A Pos Bld Type Recheck Status No Antibody Screen NEGATIVE Crossmatch See Detail Spec Expiration Date 08/29/20202353 Critical Care Time Critical Care Time: Yes Total Critical Care Time: 35 Disposition Clinical Impression: Anemia, GI bleed Disposition: ADMITTED IP TO THIS [facility] Referrals: Yoel Deras MD [Primary Care Provider] - 1-2 days Time of Disposition: 14:29
[2020-08-26 13:23] LABS: Calcium 8.6 mg/dL (8.4-10.2); Magnesium 2.5 mg/dL (1.6-2.3); Potassium 4.1 mmol/L (3.5-5.1); Total Bilirubin 0.5 mg/dL (0.2-1.3); Total Protein 7.1 g/dL (6.3-8.2)
[2020-08-26 13:28] LABS: INR 0.9 (<1.2); Prothrombin Time 9.8 sec (9.0-12.0)
[2020-08-26 13:31] LABS: Partial Thromboplastin Time 20.5 sec (22.0-30.0)
[2020-08-26 13:39] LABS: Anisocytosis Slight; Basophils # (A) 0.1 k/uL (0-0.2); Basophils % (A) 1 %; Eosinophils # (A) 0.6 k/uL (0-0.7); Eosinophils % (A) 4 %; HCT 23.3 % (34.0-46.0); Hypochromasia Marked; Lymphocytes # (A) 1.2 k/uL (1.0-4.8); Lymphocytes % (A) 8 %; MCH 22.8 pg (25.0-35.0); MCHC 28.7 g/dL (31.0-37.0); Mean Platelet Volume 7.2; Microcytosis Slight; Monocytes % (A) 7 %; Neutrophils # (A) 11.3 k/uL (1.3-7.7); Neutrophils % (A) 78 %; Poikilocytosis Marked; RBC 2.93 m/uL (3.80-5.40); RDW 18.3 % (11.5-15.5); WBC 14.4 k/uL (3.8-10.6)
[2020-08-26 13:48] LABS: HGB 6.7 gm/dL (11.4-16.0); MCV 79.5 fL (80.0-100.0); Platelet Count 434 k/uL (150-450)
[2020-08-26 14:14] LABS: Polychromasia Present; Toxic Granulation Present
[2020-08-26 20:13] LABS: Glucose,Whole Blood 180 mg/dL (75-99)
[2020-08-26] MEDS ORDERED: SENNOSIDES-DOCUSATE SODIUM 1 EACH TAB PO PRN (21:03)
[2020-08-26] MEDS ORDERED: IPRATROPIUM-ALBUTEROL 3 ML NEB INHALATION PRN (21:03)
[2020-08-26] MEDS ORDERED: methocarbamoL 500 MG TAB PO PRN (22:00)
[2020-08-27] MEDS: LEVOTHYROXINE 125 MCG TAB PO SCH (05:27)
[2020-08-27 06:35] LABS: Anisocytosis Slight; Basophils # (A) 0.1 k/uL (0-0.2); Basophils % (A) 1 %; Eosinophils # (A) 0.8 k/uL (0-0.7); Eosinophils % (A) 6 %; HCT 25.1 % (34.0-46.0); HGB 7.2 gm/dL (11.4-16.0); Hypochromasia Marked; Lymphocytes # (A) 1.1 k/uL (1.0-4.8); Lymphocytes % (A) 9 %; MCH 23.2 pg (25.0-35.0); MCHC 28.5 g/dL (31.0-37.0); MCV 81.4 fL (80.0-100.0); Mean Platelet Volume 8.2; Microcytosis Slight; Monocytes # (A) 0.9 k/uL (0-1.0); Monocytes % (A) 7 %; Neutrophils # (A) 9.1 k/uL (1.3-7.7); Neutrophils % (A) 75 %; Platelet Count 334 k/uL (150-450); Poikilocytosis Marked; RBC 3.09 m/uL (3.80-5.40); RDW 17.8 % (11.5-15.5)
[2020-08-27 06:56] LABS: Glucose,Whole Blood 294 mg/dL (75-99)
[2020-08-27 06:56] LABS: Band Neutrophils % 2 %; Basophils # (M) 0.12 k/uL (0-0.2); Eosinophils # (M) 0.36 k/uL (0-0.7); Lymphocytes # (M) 0.73 k/uL (1.0-4.8); Metamyelocytes # (M) 0.12 k/uL (0); Metamyelocytes % 1 %; Monocytes # (M) 0.97 k/uL (0-1.0); Neutrophils % (M) 81 %; Nucleated Red Blood Cells 2 /100 WBC (0-0); Total Cells Counted 200; WBC 12.1 k/uL (3.8-10.6)
[2020-08-27 06:57] LABS: Anisocytosis (M) Present; Hypochromasia (M) Present; Poikilocytosis (M) Present; Polychromasia Present; Stomatocytes Present
[2020-08-27] MEDS ORDERED: TIOTROPIUM INHALATION SCH (08:00)
[2020-08-27] MEDS: SYMBICORT 160-4.5 MCG INHALER INHALATION SCH ×2 (08:16→21:13)
[2020-08-27] MEDS ORDERED: MAGNESIUM CITRATE 296 ML BOTTLE PO ONE (09:40)
[2020-08-27] MEDS: INSULIN DETEMIR (LEVEMIR) 100 UNIT/ML SYR SQ SCH ×2 (10:15→21:22)
[2020-08-27] MEDS: INSULIN ASPART (NovoLOG) 100 UNIT/ML VIAL SQ SCH ×4 (10:16→21:22)
[2020-08-27] MEDS: ATORVASTATIN 40 MG TAB PO SCH (10:17)
[2020-08-27] MEDS: ISOSORBIDE MONONITRATE ER 30 MG TAB.ER.24H PO SCH (10:17)
[2020-08-27] MEDS: PANTOPRAZOLE 40 MG TABLET PO SCH ×2 (10:17→17:43)
[2020-08-27] MEDS: LINAGLIPTIN 5 MG TABLET PO SCH (10:17)
[2020-08-27] MEDS: PREGABALIN 100 MG CAP PO SCH ×2 (10:17→21:21)
[2020-08-27] MEDS: FUROSEMIDE 40 MG TAB PO SCH ×2 (10:18→14:12)
[2020-08-27] MEDS: METOPROLOL TARTRATE 50 MG TAB PO SCH ×2 (10:18→21:21)
[2020-08-27] MEDS: metOLazone 2.5 MG TAB PO SCH (10:18)
[2020-08-27] MEDS: POTASSIUM CHLORIDE ER 10 MEQ TAB.ER.PRT PO SCH ×2 (10:18→21:21)
[2020-08-27] MEDS: FLUoxetine HCL 20 MG CAP PO SCH (10:18)
[2020-08-27] MEDS: SPIRONOLACTONE 25 MG TAB PO SCH (10:18)
[2020-08-27] MEDS: SODIUM FERRIC GLUCONAT-SUCROSE 125 MG in SODIUM CHLORIDE 0.9% 100 ML IVPB SCH (10:36)
[2020-08-27 11:23] LABS: Glucose,Whole Blood 490 mg/dL (75-99)
--- NOTE | 2020-08-27 11:27 | P.CONS ---
History of Present Illness - Reason for Consult Consult date: 08/27/20 Anemia Requesting physician: Clarice Colón - History of Present Illness Plesant female with history of known AVMs seen on prior admissions and evalutions. She presents with symptomatic anemia, hemoglobin 6.7 and received transfusion. Last admission seen in consult and recommended to follow-up as outpatient for intermittent iron infusions although patient did not follow-up. Review of Systems All systems: negative Constitutional: Reports as per HPI Past Medical History Past Medical History: Heart Failure, COPD, Diabetes Mellitus, GI Bleed, Pneumonia, Respiratory Disorder Additional Past Medical History / Comment(s): heart murmur, neuropathy, scope done Last Myocardial Infarction Date:: 2018 History of Any Multi-Drug Resistant Organisms: None Reported Year Discovered:: 04/2019 MDRO Source:: URINE Past Surgical History: Section, Cholecystectomy, Heart Catheterization, Hysterectomy, Orthopedic Surgery Additional Past Surgical History / Comment(s): Gi cauterization 02/22/2020; heart cath 12/26/2019; cataracts removal, lens placement. FREQUENT BLOOD TRANFUSIONS Past Anesthesia/Blood Transfusion Reactions: Previous Problems w/ Anesthesia Additional Past Anesthesia/Blood Transfusion Reaction / Comm: ALLERGY TO CISATRACURIUM- FACE TURNED RED/SWOLLEN Past Psychological History: No Psychological Hx Reported Smoking Status: Never smoker Past Alcohol Use History: None Reported Past Drug Use History: None Reported - Past Family History Mother Family Medical History: Renal Disease Additional Family Medical History / Comment(s): Mother was on Hemodilaysis Medications and Allergies Home Medications Medication Instructions Recorded Confirmed Type Atorvastatin [Lipitor] 40 mg PO DAILY tab 08/03/20 08/26/20 Rx Budesonide-Formot 160-4.5 Mcg 2 puff INHALATION RT-BID puff 08/03/20 08/26/20 Rx [Symbicort 160-4.5 Mcg Inhaler] FLUoxetine HCL [PROzac] 20 mg PO DAILY cap 08/03/20 08/26/20 Rx Isosorbide Mononitrate ER [Imdur] 30 mg PO DAILY tab.er.24h 08/03/20 08/26/20 Rx Levothyroxine Sodium [Synthroid] 125 mcg PO DAILY@0630 tab 08/03/20 08/26/20 Rx Metoprolol Tartrate [Lopressor] 100 mg PO BID tab 08/03/20 08/26/20 Rx Montelukast [Singulair] 10 mg PO HS tab 08/03/20 08/26/20 Rx SILVER sulfADIAZINE CREAM 1 applic TOPICAL DAILY applic 08/03/20 08/26/20 Rx [Silvadene Cream] Spironolactone [Aldactone] 25 mg PO DAILY tab 08/03/20 08/26/20 Rx methocarbamoL [Robaxin] 500 mg PO BID PRN tab 08/03/20 08/26/20 Rx rOPINIRole HCL [Requip] 2 mg PO BID tab 08/03/20 08/26/20 Rx Pantoprazole Sodium [Protonix] 40 mg PO AC-BID #60 tablet.dr 08/08/20 08/26/20 Rx Potassium Chloride ER [K-Dur 10] 10 meq PO BID #30 tab 08/08/20 08/26/20 Rx metOLazone [Zaroxolyn] 2.5 mg PO MoWeFr@0900 #30 tab 08/08/20 08/26/20 Rx Furosemide [Lasix] 40 mg PO BID@0800,1400 08/26/20 08/26/20 History INSULIN ASPART (NovoLOG) [NovoLOG See Protocol SQ ACHS 08/26/20 08/26/20 History (formulary)] Insulin Glargine,Hum.rec.anlog 30 units SQ BID 08/26/20 08/26/20 History [Toujeo Solostar] Ipratropium-Albuterol Nebulize 3 ml INHALATION RT-QID PRN 08/26/20 08/26/20 History [Duoneb 0.5 mg-3 mg/3 ml Soln] Pregabalin [Lyrica] 200 mg PO BID 08/26/20 08/26/20 History Sennosides-Docusate Sodium 1 tab PO BID PRN 08/26/20 08/26/20 History [Senokot-S] Tiotropium 2.5 Mcg/Puff [Spiriva 2 puff INHALATION RT-DAILY 08/26/20 08/26/20 History Respimat 2.5 Mcg] sitaGLIPtin PHOSPHATE [Januvia] 100 mg PO DAILY 08/26/20 08/26/20 History Allergies Allergy/AdvReac Type Severity Reaction Status Date / Time cisatracurium [From Nimbex] Allergy Rash/Hives Verified 08/26/20 15:24 Physical Exam Vitals: Vital Signs Temp Pulse Pulse Resp BP BP Pulse Ox 08/27/20 09:05 71 18 08/27/20 08:49 98.0 F 71 18 105/57 98 08/27/20 04:50 97.8 F 71 18 106/54 98 08/26/20 20:00 68 18 08/26/20 19:35 97.6 F 68 18 115/64 98 08/26/20 17:30 98.8 F 70 22 125/53 99 08/26/20 16:45 97.9 F 70 20 124/57 99 08/26/20 16:30 98 F 72 20 131/52 99 08/26/20 15:57 98 F 77 18 122/53 100 08/26/20 12:21 97.6 F 75 20 114/50 100 Intake and Output 08/26/20 08/27/20 08/27/20 22:59 06:59 14:59 Intake Total 710 Balance 710 Intake: Oral 400 Blood Product 310 Rc As-1 Unit 310 [id number] Other: Voiding Method Toilet Toilet # Voids 1 2 1 Weight 108.182 kg - Constitutional General appearance: cooperative, no acute distress - EENT ENT: NA/AT, normal oropharynx - Neck Neck: normal ROM - Respiratory Respiratory: bilateral: CTA - Cardiovascular Rhythm: regular - Gastrointestinal General gastrointestinal: normal bowel sounds, soft - Integumentary Integumentary: pale - Neurologic Neurologic: CNII-XII intact - Musculoskeletal Musculoskeletal: generalized weakness, strength equal bilaterally - Psychiatric Psychiatric: A&O x's 3, appropriate affect, intact judgment & insight Results CBC & Chem 7: 08/28/20 06:52 08/28/20 06:52 Labs: Abnormal Lab Results - Last 24 Hours (Table) 08/26/20 08/26/20 08/26/20 Range/Units 12:54 12:54 12:54 WBC 14.4 H (3.8-10.6) k/uL RBC 2.93 L (3.80-5.40) m/uL Hgb 6.7 L* (11.4-16.0) gm/dL Hct 23.3 L (34.0-46.0) % MCV 79.5 L D (80.0-100.0) fL MCH 22.8 L (25.0-35.0) pg MCHC 28.7 L (31.0-37.0) g/dL RDW 18.3 H (11.5-15.5) % Neutrophils # 11.3 H (1.3-7.7) k/uL Neutrophils # (Manual) (1.3-7.7) k/uL Lymphocytes # (Manual) (1.0-4.8) k/uL Eosinophils # (0-0.7) k/uL Metamyelocytes # (Man) (0) k/uL Nucleated RBCs (0-0) /100 WBC APTT 20.5 L (22.0-30.0) sec Chloride 93 L (98-107) mmol/L Carbon Dioxide 34 H (22-30) mmol/L BUN 50 H (7-17) mg/dL Creatinine 1.39 H (0.52-1.04) mg/dL Glucose 164 H (74-99) mg/dL POC Glucose (mg/dL) (75-99) mg/dL Magnesium 2.5 H (1.6-2.3) mg/dL Alkaline Phosphatase 148 H (38-126) U/L Crossmatch 08/26/20 08/26/20 08/27/20 Range/Units 12:54 20:12 05:22 WBC 12.1 H (3.8-10.6) k/uL RBC 3.09 L (3.80-5.40) m/uL Hgb 7.2 L (11.4-16.0) gm/dL Hct 25.1 L (34.0-46.0) % MCV (80.0-100.0) fL MCH 23.2 L (25.0-35.0) pg MCHC 28.5 L (31.0-37.0) g/dL RDW 17.8 H (11.5-15.5) % Neutrophils # 9.1 H (1.3-7.7) k/uL Neutrophils # (Manual) 10.00 H (1.3-7.7) k/uL Lymphocytes # (Manual) 0.73 L (1.0-4.8) k/uL Eosinophils # 0.8 H (0-0.7) k/uL Metamyelocytes # (Man) 0.12 H (0) k/uL Nucleated RBCs 2 H (0-0) /100 WBC APTT (22.0-30.0) sec Chloride (98-107) mmol/L Carbon Dioxide (22-30) mmol/L BUN (7-17) mg/dL Creatinine (0.52-1.04) mg/dL Glucose (74-99) mg/dL POC Glucose (mg/dL) 180 H (75-99) mg/dL Magnesium (1.6-2.3) mg/dL Alkaline Phosphatase (38-126) U/L Crossmatch See Detail 08/27/20 08/27/20 Range/Units 06:48 11:12 WBC (3.8-10.6) k/uL RBC (3.80-5.40) m/uL Hgb (11.4-16.0) gm/dL Hct (34.0-46.0) % MCV (80.0-100.0) fL MCH (25.0-35.0) pg MCHC (31.0-37.0) g/dL RDW (11.5-15.5) % Neutrophils # (1.3-7.7) k/uL Neutrophils # (Manual) (1.3-7.7) k/uL Lymphocytes # (Manual) (1.0-4.8) k/uL Eosinophils # (0-0.7) k/uL Metamyelocytes # (Man) (0) k/uL Nucleated RBCs (0-0) /100 WBC APTT (22.0-30.0) sec Chloride (98-107) mmol/L Carbon Dioxide (22-30) mmol/L BUN (7-17) mg/dL Creatinine (0.52-1.04) mg/dL Glucose (74-99) mg/dL POC Glucose (mg/dL) 294 H 490 H (75-99) mg/dL Magnesium (1.6-2.3) mg/dL Alkaline Phosphatase (38-126) U/L Crossmatch Comments: Small bowel video endoscopy Assessment and Plan Plan: Assessment and Recommendations: Microcytic Anemia - Primarily secondary to small bowel AVMs - Iron Studies likely not accurate with recent transfusions and supplementation additional work-up to rule out other addition factors GI is following Last admission she did not follow-up following hospitalization, rescommend close outpatient followup intermittent parental nutrition Physician Attest: I have completed the full history and physical and agree with above, dictated as a scribe.
--- NOTE | 2020-08-27 12:34 | P.HPIM ---
History of Present Illness H&P Date: 08/27/20 Chief Complaint: GIB HISTORY OF PRESENT ILLNESS This is a 65-year-old female patient of Dr. Deras with past medical history significant for heart failure, COPD, chronic hypoxic respiratory failure on home O2 at 2 L nasal cannula and obstructive sleep apnea on BiPAP support at bedtime, diabetes mellitus type 2 with diabetic neuropathy, chronic diastolic heart failure, valvular heart disease, hypertension, hypothyroidism, GI bleed with anemia. Patient has had multiple admissions and multiple endoscopies for GIB and anemia. One completed on May 2020 revealed proximal small bowel angiodysplasia treated with coagulation therapy. Patient has also been treated at tertiary care centers. Patient was seen by Dr. Diallo in the office yesterday and was found to have a hemoglobin of 6.8 and patient was instructed to come into the hospital for evaluation. Patient complains of feeling weak, had some episodes of shortness of breath, abdominal pain across the upper area. No constipation or diarrhea. She states she is having black stool despite stopping iron. No fever or chills. No cough. After last admission, patient was to follow up with Dr. Reyes in the office. She states she has a call there and is waiting for an appointment. Patient presented to the [facility] emergency center for evaluation area and she was afebrile, heart rate 75, blood pressure 114/50, pulse ox 100% on room air. EKG was a sinus rhythm with no acute ST changes. WBC 14.4, hemoglobin 6.7, platelet count 434. Sodium 137, potassium 4.1, chlo ride 93, CO2 34, BUN 50 and creatinine 1.39. Blood sugar 164. Magnesium 2.5. Total bilirubin 0.5. Alkaline phosphatase 148. He was transfused 1 unit of packed RBCs, admitted to the oncology unit, GI consult and subsequently oncology consult for anemia added. REVIEW OF SYSTEMS Constitutional: No fever, no chills, no night sweats. No weight change. Reports weakness and fatigue no lethargy. No daytime sleepiness. EENT: No headache. No blurred vision or double vision, no loss of vision. No loss of Hearing, no ringing in the ears, no dizziness. No nasal drainage or congestion. No epistaxis. No sore throat. Lungs: Reports shortness of breath, reports cough, no sputum production. No wheezing. Cardiovascular: No chest pain, no lower extremity edema. No palpitations. No paroxysmal nocturnal dyspnea. No orthopnea. No lightheadedness or dizziness. No syncopal episodes. Abdominal: Reports upper abdominal pain. No nausea, vomiting. no diarrhea. No constipation. No bloody reports tarry stools. Denies bright red bleeding. no loss of appetite. Genitourinary: No dysuria, increased frequency, urgency. No urinary retention. Musculoskeletal: No myalgias. No muscle weakness, no gait dysfunction, no frequent falls. No back pain. No neck pain. Integumentary: No wounds, no lesions. No rash or pruritus. No unusual bruising. No change in hair or nails. Neurologic: No aphasia. No facial droop. No change in mentation. No head injury. No headache. No paralysis. No paresthesia. Psychiatric: No depression. No anxiety. No mood swings. Endocrine: No abnormal blood sugars. No weight change. No excessive sweating or thirst. SOCIAL HISTORY Patient was a smoker one pack per day for greater than 40 years and quit at age 62. She denies any alcohol use, marijuana or illicit drug use. She is and lives at home with her . She has a nebulizer, oxygen at 3 L nasal can nula and BiPAP at night. FAMILY HISTORY Mother at age 60 from kidney failure. Father at age 84 from leukemia. Patient has 4 sisters and one has passed from coronary artery disease. Other sisters and 2 brothers have no major medical problems. Patient has 3 children with no major medical problems. PHYSICAL EXAMINATION Gen: This is a 65-year-old female. She is resting and recliner and appears to be comfortable at rest. HEENT: Head is atraumatic, normocephalic. Pupils equal, round. Sclerae is anicteric. Conjunctiva pale. NECK: Supple. No JVD. No lymphadenopathy. No thyromegaly. LUNGS: Clear to auscultation. No wheezes or rhonchi. No intercostal retractions. HEART: Regular rate and rhythm. Systolic murmur. ABDOMEN: Soft. Bowel sounds are present. No masses. No tenderness. EXTREMITIES: No pedal edema. No calf tenderness. Dorsalis pedis +2 bilaterally. NEUROLOGICAL: Patient is awake, alert and oriented x3. Cranial nerves 2 through 12 are grossly intact. ASSESSMENT AND PLAN 1. Acute on chronic GI bleed with acute blood loss anemia. Patient has been transfused 1 unit of packed RBCs. Consult with GI and also oncology. Ferrlecit 125 mg daily 2 added. Protonix 40 mg oral twice daily. 2. Diabetes mellitus type 2 with diabetic neuropathy. Continue Levemir 30 units twice daily and NovoLog scale before meals and at bedtime. Continue Tadjenta 5 mg daily. 3. Diabetic neuropathy. Continue Lyrica milligrams twice daily. 4. COPD without exacerbation. Continue DuoNeb treatment 4 times daily as needed, Symbicort 1604 0.5 g twice daily, Singulair 10 mg at bedtime. 5. Hypertension. Continue Lasix 40 mg twice daily, Lopressor 100 mg twice daily. 6. Chronic diastolic heart failure without exacerbation. Continue Lopressor, Lasix, Aldactone 25 mg daily, Zaroxolyn 2.5 mg on Tuesday. 7. Hyperlipidemia. Continue Lipitor 40 mg daily. 8. Obstructive sleep apnea. Continue BiPAP at night. 9. Restless leg syndrome. Continue Requip 2 mg twice daily. 10. Recurrent depression. Continue Prozac 20 mg daily. 11. GI prophylaxis. Protonix twice daily. 12. DVT prophylaxis. SCDs and FILEMON hose. Admit for minimum of 2 nights day. Impression and plan of care have been directed as dictated by the signing physician. Clarice Colón nurse practitioner acting as scribe for signing physician. Past Medical History Past Medical History: Heart Failure, COPD, Diabetes Mellitus, GI Bleed, Pneumonia, Respiratory Disorder Additional Past Medical History / Comment(s): heart murmur, neuropathy, scope done Last Myocardial Infarction Date:: 2018 History of Any Multi-Drug Resistant Organisms: None Reported Date of last positivie culture/infection: 04/2019 MDRO Source:: URINE Past Surgical History: Section, Cholecystectomy, Heart Catheterization, Hysterectomy, Orthopedic Surgery Additional Past Surgical History / Comment(s): Gi cauterization 02/22/2020; heart cath 12/26/2019; cataracts removal, lens placement. FREQUENT BLOOD TRANFUSIONS Past Anesthesia/Blood Transfusion Reactions: Previous Problems w/ Anesthesia Additional Past Anesthesia/Blood Transfusion Reaction / Comment(s): ALLERGY TO CISATRACURIUM- FACE TURNED RED/SWOLLEN Past Psychological History: No Psychological Hx Reported Smoking Status: Never smoker Past Alcohol Use History: None Reported Past Drug Use History: None Reported - Past Family History Mother Family Medical History: Renal Disease Additional Family Medical History / Comment(s): Mother was on Hemodilaysis Medications and Allergies Home Medications Medication Instructions Recorded Confirmed Type Atorvastatin [Lipitor] 40 mg PO DAILY tab 08/03/20 08/26/20 Rx Budesonide-Formot 160-4.5 Mcg 2 puff INHALATION RT-BID puff 08/03/20 08/26/20 Rx [Symbicort 160-4.5 Mcg Inhaler] FLUoxetine HCL [PROzac] 20 mg PO DAILY cap 08/03/20 08/26/20 Rx Isosorbide Mononitrate ER [Imdur] 30 mg PO DAILY tab.er.24h 08/03/20 08/26/20 Rx Levothyroxine Sodium [Synthroid] 125 mcg PO DAILY@0630 tab 08/03/20 08/26/20 Rx Metoprolol Tartrate [Lopressor] 100 mg PO BID tab 08/03/20 08/26/20 Rx Montelukast [Singulair] 10 mg PO HS tab 08/03/20 08/26/20 Rx SILVER sulfADIAZINE CREAM 1 applic TOPICAL DAILY applic 08/03/20 08/26/20 Rx [Silvadene Cream] Spironolactone [Aldactone] 25 mg PO DAILY tab 08/03/20 08/26/20 Rx methocarbamoL [Robaxin] 500 mg PO BID PRN tab 08/03/20 08/26/20 Rx rOPINIRole HCL [Requip] 2 mg PO BID tab 08/03/20 08/26/20 Rx Pantoprazole Sodium [Protonix] 40 mg PO AC-BID #60 tablet.dr 08/08/20 08/26/20 Rx Potassium Chloride ER [K-Dur 10] 10 meq PO BID #30 tab 08/08/20 08/26/20 Rx metOLazone [Zaroxolyn] 2.5 mg PO MoWeFr@0900 #30 tab 08/08/20 08/26/20 Rx Furosemide [Lasix] 40 mg PO BID@0800,1400 08/26/20 08/26/20 History INSULIN ASPART (NovoLOG) [NovoLOG See Protocol SQ ACHS 08/26/20 08/26/20 History (formulary)] Insulin Glargine,Hum.rec.anlog 30 units SQ BID 08/26/20 08/26/20 History [Toujeo Solostar] Ipratropium-Albuterol Nebulize 3 ml INHALATION RT-QID PRN 08/26/20 08/26/20 History [Duoneb 0.5 mg-3 mg/3 ml Soln] Pregabalin [Lyrica] 200 mg PO BID 08/26/20 08/26/20 History Sennosides-Docusate Sodium 1 tab PO BID PRN 08/26/20 08/26/20 History [Senokot-S] Tiotropium 2.5 Mcg/Puff [Spiriva 2 puff INHALATION RT-DAILY 08/26/20 08/26/20 History Respimat 2.5 Mcg] sitaGLIPtin PHOSPHATE [Januvia] 100 mg PO DAILY 08/26/20 08/26/20 History Allergies Allergy/AdvReac Type Severity Reaction Status Date / Time cisatracurium [From Nimbex] Allergy Rash/Hives Verified 08/26/20 15:24 Physical Exam Vitals: Vital Signs Temp Pulse Pulse Resp BP BP Pulse Ox 08/27/20 04:50 97.8 F 71 18 106/54 98 08/26/20 20:00 68 18 08/26/20 19:35 97.6 F 68 18 115/64 98 08/26/20 17:30 98.8 F 70 22 125/53 99 08/26/20 16:45 97.9 F 70 20 124/57 99 08/26/20 16:30 98 F 72 20 131/52 99 08/26/20 15:57 98 F 77 18 122/53 100 08/26/20 12:21 97.6 F 75 20 114/50 100 Intake and Output 08/26/20 08/27/20 08/27/20 22:59 06:59 14:59 Intake Total 710 Balance 710 Intake: Oral 400 Blood Product 310 Rc As-1 Unit 310 [id number] Other: Voiding Method Toilet # Voids 1 2 1 Weight 108.182 kg Results CBC & Chem 7: 08/27/20 05:22 08/26/20 12:54 Labs: Abnormal Lab Results - Last 24 Hours (Table) 08/26/20 08/26/20 08/26/20 Range/Units 12:54 12:54 12:54 WBC 14.4 H (3.8-10.6) k/uL RBC 2.93 L (3.80-5.40) m/uL Hgb 6.7 L* (11.4-16.0) gm/dL Hct 23.3 L (34.0-46.0) % MCV 79.5 L D (80.0-100.0) fL MCH 22.8 L (25.0-35.0) pg MCHC 28.7 L (31.0-37.0) g/dL RDW 18.3 H (11.5-15.5) % Neutrophils # 11.3 H (1.3-7.7) k/uL Neutrophils # (Manual) (1.3-7.7) k/uL Lymphocytes # (Manual) (1.0-4.8) k/uL Eosinophils # (0-0.7) k/uL Metamyelocytes # (Man) (0) k/uL Nucleated RBCs (0-0) /100 WBC APTT 20.5 L (22.0-30.0) sec Chloride 93 L (98-107) mmol/L Carbon Dioxide 34 H (22-30) mmol/L BUN 50 H (7-17) mg/dL Creatinine 1.39 H (0.52-1.04) mg/dL Glucose 164 H (74-99) mg/dL POC Glucose (mg/dL) (75-99) mg/dL Magnesium 2.5 H (1.6-2.3) mg/dL Alkaline Phosphatase 148 H (38-126) U/L Crossmatch 08/26/20 08/26/20 08/27/20 Range/Units 12:54 20:12 05:22 WBC 12.1 H (3.8-10.6) k/uL RBC 3.09 L (3.80-5.40) m/uL Hgb 7.2 L (11.4-16.0) gm/dL Hct 25.1 L (34.0-46.0) % MCV (80.0-100.0) fL MCH 23.2 L (25.0-35.0) pg MCHC 28.5 L (31.0-37.0) g/dL RDW 17.8 H (11.5-15.5) % Neutrophils # 9.1 H (1.3-7.7) k/uL Neutrophils # (Manual) 10.00 H (1.3-7.7) k/uL Lymphocytes # (Manual) 0.73 L (1.0-4.8) k/uL Eosinophils # 0.8 H (0-0.7) k/uL Metamyelocytes # (Man) 0.12 H (0) k/uL Nucleated RBCs 2 H (0-0) /100 WBC APTT (22.0-30.0) sec Chloride (98-107) mmol/L Carbon Dioxide (22-30) mmol/L BUN (7-17) mg/dL Creatinine (0.52-1.04) mg/dL Glucose (74-99) mg/dL POC Glucose (mg/dL) 180 H (75-99) mg/dL Magnesium (1.6-2.3) mg/dL Alkaline Phosphatase (38-126) U/L Crossmatch See Detail 08/27/20 Range/Units 06:48 WBC (3.8-10.6) k/uL RBC (3.80-5.40) m/uL Hgb (11.4-16.0) gm/dL Hct (34.0-46.0) % MCV (80.0-100.0) fL MCH (25.0-35.0) pg MCHC (31.0-37.0) g/dL RDW (11.5-15.5) % Neutrophils # (1.3-7.7) k/uL Neutrophils # (Manual) (1.3-7.7) k/uL Lymphocytes # (Manual) (1.0-4.8) k/uL Eosinophils # (0-0.7) k/uL Metamyelocytes # (Man) (0) k/uL Nucleated RBCs (0-0) /100 WBC APTT (22.0-30.0) sec Chloride (98-107) mmol/L Carbon Dioxide (22-30) mmol/L BUN (7-17) mg/dL Creatinine (0.52-1.04) mg/dL Glucose (74-99) mg/dL POC Glucose (mg/dL) 294 H (75-99) mg/dL Magnesium (1.6-2.3) mg/dL Alkaline Phosphatase (38-126) U/L Crossmatch Thrombosis Risk Factor Assmnt - Choose All That Apply Any of the Below Risk Factors Present?: Yes Each Factor Represents 1 point: Obesity (BMI >25), Swollen legs (current) Other Risk Factors: Yes Each Risk Factor Represents 2 Points: Age 61-74 years Thrombosis Risk Factor Assessment Total Risk Factor Score: 4 Thrombosis Risk Factor Assessment Level: Moderate Risk
[2020-08-27 12:57] LABS: Glucose,Whole Blood 374 mg/dL (75-99)
[2020-08-27] MEDS ORDERED: SIMETHICONE 40 MG/0.6 ML DROPS 2,000 MG/30 ML BOTTLE PO ONE (15:07)
--- NOTE | 2020-08-27 15:21 | CONS ---
CONSULTATION DATE OF DICTATION: August 27, 2020 REASON FOR CONSULTATION: Obscure GI bleed with severe anemia. HISTORY OF PRESENT ILLNESS: The patient is a 65-year-old pleasant white female with history of COPD, congestive heart failure, on home O2, sleep apnea, diabetes mellitus, admitted to hospital with black tarry stools for the last 2 days duration. The patient had multiple hospitalizations since February of last year and she was extensively investigated with upper endoscopies and colonoscopies over the last one year and no obvious source of bleeding was identified. She also had a couple of small bowel capsule endoscopies that revealed small angioectasia in the proximal jejunum. The patient was transferred to [facility] on 2 different occasions and she underwent a small bowel single balloon enteroscopy by Dr. Mark who advanced the scope to the distal jejunum and no obvious source of angioectasia or bleeding identified. He recommended repeat small bowel capsule endoscopy at this time. Patient denies any abdominal pain. No nausea, no vomiting. She came in with black tarry stools. Her hemoglobin was 6.5. She received 2 units of PRBC transfusion. PAST MEDICAL HISTORY: Significant for diabetes mellitus, hypertension, hyperlipidemia, COPD, congestive heart failure, obscure GI bleed with multiple EGDs and colonoscopies and small bowel capsule endoscopies in the last one year. PAST SURGICAL HISTORY: , cholecystectomy, cardiac catheterization, hysterectomy. MEDICATIONS: Medications at home include Lipitor, Symbicort, Prozac, Imdur, Synthroid, Lopressor, Singulair, Robaxin, Aldactone, Requip, Protonix, Zaroxolyn, Lasix, NovoLog, K-Dur, Senna, Lyrica, DuoNeb, Toujeo, Januvia, Spiriva. ALLERGIES: NIMBEX. REVIEW OF SYSTEMS: CARDIOPULMONARY: No chest pain. She does complain of some shortness of breath. GENITOURINARY: No dysuria or hematuria. MUSCULOSKELETAL: Unremarkable. SKIN: Unremarkable. ENDOCRINE: Unremarkable. PSYCHIATRIC: Unremarkable. HEMATOLOGY: As mentioned above, obscure GI bleed and anemia. ENT/VISION: Unremarkable. CONSTITUTIONAL: No recent weight loss. No fever, chills, night sweats. PHYSICAL EXAMINATION: She appears comfortable, no apparent distress. Vital signs are stable. Blood pressure is 122/86, pulse rate 85 per minute and afebrile. HEENT EXAMINATION: Unremarkable. Conjunctivae pink. Sclerae anicteric. Oral cavity no lesions. NECK: No JVD or lymph node enlargement. CHEST: Was clear to auscultation. HEART: Regular rate and rhythm. ABDOMEN: Soft. Bowel sounds are positive. No organomegaly. EXTREMITIES: No pedal edema. NEURO: She is alert and oriented x3. No focal deficits. LABS: WBC 12.1, hemoglobin 6.7, platelets 334, BUN 50, creatinine 1.39. After 2 units of PRBC transfusion, hemoglobin is 7.2 g/dL. IMPRESSION: 1. Obscure gastrointestinal bleed. Patient with multiple hospitalizations over the last one year duration. She had EGDs, colonoscopies, small bowel enteroscopy as well as small bowel capsule endoscopies several times in the last 6 months. The small bowel capsule endoscopy at one time showed nonbleeding angioectasia in the distal jejunum. The patient was transferred to [facility] in June of 2020 and she underwent a small bowel single balloon enteroscopy and the scope was advanced up to the distal jejunum and no obvious source of bleeding was identified. Tattooing was performed at the level of insertion of the scope. It was recommended to perform a small bowel capsule endoscopy to see the bleeding site or if she has any angiectasia beyond the tattooing site and if so consideration for single balloon enteroscopy through a colonoscopy could be performed. She is admitted with a hemoglobin of 6.7 requiring 2 units of PRBC transfusion. Repeat hemoglobin is 7.7. She has been having black tarry stools. She is not on any anticoagulation at the present time. 2. History of congestive heart failure. 3. History of chronic obstructive pulmonary disease on home O2. 4. History of sleep apnea. 5. Diabetes mellitus. 6. Hypertension. 7. Hyperlipidemia. RECOMMENDATIONS: 1. Agree with PRBC transfusion. 2. Continue Protonix 40 mg daily. 3. We will schedule her for a small bowel capsule endoscopy today to evaluate further and based on the results we will consider further workup. 4. The plan was discussed with the patient. She is agreeable to it. Thank you for this consultation. MMODL / IJN: [id number] /
[2020-08-27 17:18] LABS: Glucose,Whole Blood 135 mg/dL (75-99)
[2020-08-27 19:37] LABS: Reticulocyte % 6.37 % (0.10-1.80)
[2020-08-27 20:00] LABS: Glucose,Whole Blood 275 mg/dL (75-99)
[2020-08-27] MEDS: MONTELUKAST 10 MG TAB PO SCH (21:21)
[2020-08-28] MEDS: LEVOTHYROXINE 125 MCG TAB PO SCH (05:28)
[2020-08-28 07:21] LABS: Glucose,Whole Blood 258 mg/dL (75-99)
[2020-08-28] MEDS: SYMBICORT 160-4.5 MCG INHALER INHALATION SCH ×2 (07:41→20:54)
[2020-08-28] MEDS: PREGABALIN 100 MG CAP PO SCH ×2 (08:03→20:47)
[2020-08-28] MEDS: POTASSIUM CHLORIDE ER 10 MEQ TAB.ER.PRT PO SCH ×2 (08:04→20:46)
[2020-08-28] MEDS: FUROSEMIDE 40 MG TAB PO SCH ×2 (08:04→13:42)
[2020-08-28] MEDS: METOPROLOL TARTRATE 50 MG TAB PO SCH ×2 (08:04→20:46)
[2020-08-28] MEDS: ISOSORBIDE MONONITRATE ER 30 MG TAB.ER.24H PO SCH (08:04)
[2020-08-28] MEDS: LINAGLIPTIN 5 MG TABLET PO SCH (08:04)
[2020-08-28] MEDS: PANTOPRAZOLE 40 MG TABLET PO SCH ×2 (08:04→18:21)
[2020-08-28] MEDS: SPIRONOLACTONE 25 MG TAB PO SCH (08:04)
[2020-08-28] MEDS: ATORVASTATIN 40 MG TAB PO SCH (08:04)
[2020-08-28] MEDS: FLUoxetine HCL 20 MG CAP PO SCH (08:04)
[2020-08-28] MEDS: INSULIN DETEMIR (LEVEMIR) 100 UNIT/ML SYR SQ SCH ×2 (08:05→20:42)
[2020-08-28] MEDS: INSULIN ASPART (NovoLOG) 100 UNIT/ML VIAL SQ SCH ×4 (08:05→20:41)
[2020-08-28 09:11] LABS: Anisocytosis Slight; HCT 25.2 % (34.0-46.0); HGB 7.3 gm/dL (11.4-16.0); Hypochromasia Marked; MCHC 28.9 g/dL (31.0-37.0); MCV 83.3 fL (80.0-100.0); Mean Platelet Volume 7.6; Microcytosis Slight; Platelet Count 336 k/uL (150-450); Poikilocytosis Marked; RBC 3.03 m/uL (3.80-5.40); RDW 18.6 % (11.5-15.5); WBC 14.3 k/uL (3.8-10.6)
[2020-08-28 09:16] LABS: ALT 18 U/L (4-34); AST 23 U/L (14-36); African American GFR (CKD) 56 (>60 ml/min/1.73 sqM); Albumin 3.6 g/dL (3.5-5.0); Albumin/Globulin Ratio 1.2; Alkaline Phosphatase 139 U/L (38-126); Anion Gap 6 mmol/L; Blood Urea Nitrogen 40 mg/dL (7-17); Carbon Dioxide 39 mmol/L (22-30); Chloride 91 mmol/L (98-107); Globulin 2.9 g/dL; Glucose 235 mg/dL (74-99); Non-African American GFR(CKD) 49 (>60 ml/min/1.73 sqM); Potassium 3.7 mmol/L (3.5-5.1); Sodium 136 mmol/L (137-145); Total Bilirubin 0.4 mg/dL (0.2-1.3); Total Protein 6.5 g/dL (6.3-8.2)
[2020-08-28 09:58] LABS: % Iron Saturation 78.72 (12.00-45.00)
--- NOTE | 2020-08-28 10:38 | P.PN ---
Subjective Progress Note Date: 08/28/20 HISTORY OF PRESENT ILLNESS This is a 65-year-old female patient of Dr. Deras with past medical history significant for heart failure, COPD, chronic hypoxic respiratory failure on home O2 at 2 L nasal cannula and obstructive sleep apnea on BiPAP support at bedtime, diabetes mellitus type 2 with diabetic neuropathy, chronic diastolic heart failure, valvular heart disease, hypertension, hypothyroidism, GI bleed with anemia. Patient has had multiple admissions and multiple endoscopies for GIB and anemia. One completed on May 2020 revealed proximal small bowel angiodysplasia treated with coagulation therapy. Patient has also been treated at tertiary care centers. Patient was seen by Dr. Diallo in the office yesterday and was found to have a hemoglobin of 6.8 and patient was instructed to come into the hospital for evaluation. Patient complains of feeling weak, had some episodes of shortness of breath, abdominal pain across the upper area. No constipation or diarrhea. She states she is having black stool despite stopping iron. No fever or chills. No cough. After last admission, patient was to follow up with Dr. Reyes in the office. She states she has a call there and is waiting for an appointment. Patient presented to the [facility] emergency center for evaluation area and she was afebrile, heart rate 75, blood pressure 114/50, pulse ox 100% on room air. EKG was a sinus rhythm with no acute ST changes. WBC 14.4, hemoglobin 6.7, platelet count 434. Sodium 137, potassium 4.1, chloride 93, CO2 34, BUN 50 and creatinine 1.39. Blood sugar 164. Magnesium 2.5. Total bilirubin 0.5. Alkaline phosphatase 148. He was transfused 1 unit of packed RBCs, admitted to the oncology unit, GI consult and subsequently oncology consult for anemia added. 08/28: Repeat blood work reveals a globus 7.3, WBC 14.3, platelet count 336. Sodium 136, potassium 3.7, chloride 91, CO2 39, BUN 40 creatinine 1.17. Blood sugars have been elevated and patient will be started on glimepiride 2 mg every day. Patient denies having any abdominal pain. She states her appetite is okay. She is still having black stools. Patient has been seen by GI and un derwent capsule endoscopy yesterday anticipate a report will be available later today. Patient has been afebrile, heart rate 72, blood pressure 101/55, pulse ox 95% on 3 L nasal cannula. Patient is also been seen by oncology REVIEW OF SYSTEMS Constitutional: No fever, no chills, no night sweats. No weight change. Reports weakness and fatigue no lethargy. No daytime sleepiness. EENT: No headache. No blurred vision or double vision, no loss of vision. No loss of Hearing, no ringing in the ears, no dizziness. No nasal drainage or congestion. No epistaxis. No sore throat. Lungs: Reports shortness of breath, reports cough, no sputum production. No wheezing. Cardiovascular: No chest pain, no lower extremity edema. No palpitations. No paroxysmal nocturnal dyspnea. No orthopnea. No lightheadedness or dizziness. No syncopal episodes. Abdominal: Denies abdominal pain. No nausea, vomiting. no diarrhea. No constipation. No bloody stools reports tarry stools. Denies bright red bleeding. no loss of appetite. Genitourinary: No dysuria, increased frequency, urgency. No urinary retention. Musculoskeletal: No myalgias. No muscle weakness, no gait dysfunction, no frequent falls. No back pain. No neck pain. Integumentary: No wounds, no lesions. No rash or pruritus. No unusual bruising. No change in hair or nails. Neurologic: No aphasia. No facial droop. No change in mentation. No head injury. No headache. No paralysis. No paresthesia. Psychiatric: No depression. No anxiety. No mood swings. Endocrine: No abnormal blood sugars. No weight change. No excessive sweating or thirst. PHYSICAL EXAMINATION Gen: This is a 65-year-old female. She is resting and recliner and appears to be comfortable at rest. HEENT: Head is atraumatic, normocephalic. Pupils equal, round. Sclerae is anicteric. Conjunctiva pale. NECK: Supple. No JVD. No lymphadenopathy. No thyromegaly. LUNGS: Clear to auscultation. No wheezes or rhonchi. No intercostal retractions. HEART: Regular rate and rhythm. Systolic murmur. ABDOMEN: Soft. Bowel sounds are present. No masses. No tenderness. EXTREMITIES: No pedal edema. No calf tenderness. Dorsalis pedis +2 bilaterally. NEUROLOGICAL: Patient is awake, alert and oriented x3. Cranial nerves 2 through 12 are grossly intact. ASSESSMENT AND PLAN 1. Acute on chronic GI bleed with acute blood loss anemia. Patient has been transfused 1 unit of packed RBCs. Consult with GI and oncology appreciated. Ferrlecit 125 mg daily 2 will be completed today. Protonix 40 mg oral twice daily. Status post capsule endoscopy. 2. Diabetes mellitus type 2 with diabetic neuropathy, uncontrolled with hyperglycemia. Continue Levemir 30 units twice daily and NovoLog scale before meals and at bedtime. Continue Tadjenta 5 mg daily. Add glimepiride 2 mg daily. 3. Diabetic neuropathy. Continue Lyrica milligrams twice daily. 4. COPD without exacerbation. Continue DuoNeb treatment 4 times daily as needed, Symbicort 1604 0.5 g twice daily, Singulair 10 mg at bedtime. 5. Hypertension. Continue Lasix 40 mg twice daily, Lopressor 100 mg twice daily. 6. Chronic diastolic heart failure without exacerbation. Continue Lopressor, Lasix, Aldactone 25 mg daily, Zaroxolyn 2.5 mg on Tuesday. 7. Hyperlipidemia. Continue Lipitor 40 mg daily. 8. Obstructive sleep apnea. Continue BiPAP at night. 9. Restless leg syndrome. Continue Requip 2 mg twice daily. 10. Recurrent depression. Continue Prozac 20 mg daily. 11. GI prophylaxis. Protonix twice daily. 12. DVT prophylaxis. SCDs and FILEMON hose. Discharge Plan: TBD patient may require transfer to tertiary care. Impression and plan of care have been directed as dictated by the signing physician. Clarice Colón nurse practitioner acting as scribe for signing physician. Objective - Vital Signs Vital signs: Vital Signs Temp 97.8 F 08/28/20 04:18 Pulse 72 08/28/20 04:18 Resp 18 08/28/20 04:18 BP 101/55 08/28/20 04:18 Pulse Ox 95 08/28/20 04:18 Intake & Output 08/27/20 08/28/20 08/28/20 18:59 06:59 18:59 Intake Total 100 1200 Balance 100 1200 Intake: Intake, IV Titration 100 Amount Sodium Ferric Gluconat- 100 Sucrose 125 mg In Sodium Chloride 0.9% 100 ml @ 100 mls/hr IVPB DAILY [facility] Rx#:[id number] Oral 1200 Other: Voiding Method Toilet Toilet # Voids 1 3 - Labs CBC & Chem 7: 08/28/20 06:52 08/28/20 06:52 Labs: Abnormal Lab Results - Last 24 Hours (Table) 08/27/20 08/27/20 08/27/20 Range/Units 05:22 11:12 12:55 Retic Count 6.37 H (0.10-1.80) % POC Glucose (mg/dL) 490 H 374 H (75-99) mg/dL 08/27/20 08/27/20 08/28/20 Range/Units 17:16 19:53 07:20 Retic Count (0.10-1.80) % POC Glucose (mg/dL) 135 H 275 H 258 H (75-99) mg/dL
[2020-08-28 11:19] LABS: Folate, Serum 7.5 ng/mL
[2020-08-28 11:25] LABS: Ferritin 29.6 ng/mL (10.0-291.0)
[2020-08-28] MEDS: GLIMEPIRIDE 2 MG TAB PO SCH (11:32)
[2020-08-28] MEDS: SODIUM FERRIC GLUCONAT-SUCROSE 125 MG in SODIUM CHLORIDE 0.9% 100 ML IVPB SCH (11:32)
[2020-08-28 12:15] LABS: Glucose,Whole Blood 317 mg/dL (75-99)
--- NOTE | 2020-08-28 16:26 | P.PN ---
Subjective Progress Note Date: 08/28/20 Principal diagnosis: Anemia, black tarry stools This is a pleasant 65-year-old female patient with a history of COPD, congestive heart failure on home O2 who was admitted to the hospital with black tarry stools for last 2 days duration with increased shortness of breath. The patient has had multiple hospitalizations since February 2020 with extensive investigation with upper endoscopies and colonoscopies with no obvious source of bleeding identified. In the past she's had small bowel capsule endoscopies that have revealed small angiectasia in the proximal jejunum. Yesterday the patient underwent a small bowel capsule video endoscopy which revealed active bleeding in the distal duodenal and proximal jejunum. Today she is still reporting black tarry stools. Objective - Vital Signs Vital signs: Vital Signs Temp 97.5 F L 08/28/20 12:07 Pulse 69 08/28/20 12:07 Resp 18 08/28/20 12:07 BP 122/52 08/28/20 12:07 Pulse Ox 100 08/28/20 12:07 Intake & Output 08/27/20 08/28/20 08/28/20 18:59 06:59 18:59 Intake Total 100 1200 Balance 100 1200 Intake: Intake, IV Titration 100 Amount Sodium Ferric Gluconat- 100 Sucrose 125 mg In Sodium Chloride 0.9% 100 ml @ 100 mls/hr IVPB DAILY [facility] Rx#:[id number] Oral 1200 Other: Voiding Method Toilet Toilet Toilet # Voids 1 3 1 - Exam General appearance: The patient is alert, oriented, appears in no acute distress, obese. HET: Head is normocephalic and atraumatic. Conjunctiva pink. Sclera anicteric. Neck: Supple without lymphadenopathy. Abdomen: Soft, obese, nontender, nondistended with bowel sounds. No guarding or rigidity. Extremities: Normal skin color and turgor. No pedal edema Skin: No rashes, no jaundice Neurological: No focal deficits. Alert and oriented 3. - Labs CBC & Chem 7: 08/28/20 06:52 08/28/20 06:52 Labs: Abnormal Lab Results - Last 24 Hours (Table) 08/26/20 08/26/20 08/27/20 Range/Units 12:54 12:54 05:22 WBC (3.8-10.6) k/uL RBC (3.80-5.40) m/uL Hgb (11.4-16.0) gm/dL Hct (34.0-46.0) % MCH (25.0-35.0) pg MCHC (31.0-37.0) g/dL RDW (11.5-15.5) % Retic Count 6.37 H (0.10-1.80) % Sodium (137-145) mmol/L Chloride (98-107) mmol/L Carbon Dioxide (22-30) mmol/L BUN (7-17) mg/dL Creatinine (0.52-1.04) mg/dL Glucose (74-99) mg/dL POC Glucose (mg/dL) (75-99) mg/dL Iron 333 H (50-170) ug/dL % Saturation 78.72 H (12.00-45.00) Alkaline Phosphatase (38-126) U/L Lactate Dehydrogenase 296 H (120-246) U/L 08/27/20 08/27/20 08/28/20 Range/Units 17:16 19:53 06:52 WBC 14.3 H (3.8-10.6) k/uL RBC 3.03 L (3.80-5.40) m/uL Hgb 7.3 L (11.4-16.0) gm/dL Hct 25.2 L (34.0-46.0) % MCH 24.0 L (25.0-35.0) pg MCHC 28.9 L (31.0-37.0) g/dL RDW 18.6 H (11.5-15.5) % Retic Count (0.10-1.80) % Sodium (137-145) mmol/L Chloride (98-107) mmol/L Carbon Dioxide (22-30) mmol/L BUN (7-17) mg/dL Creatinine (0.52-1.04) mg/dL Glucose (74-99) mg/dL POC Glucose (mg/dL) 135 H 275 H (75-99) mg/dL Iron (50-170) ug/dL % Saturation (12.00-45.00) Alkaline Phosphatase (38-126) U/L Lactate Dehydrogenase (120-246) U/L 03/04/21 03/04/21 03/04/21 Range/Units 06:52 07:20 12:05 WBC (3.8-10.6) k/uL RBC (3.80-5.40) m/uL Hgb (11.4-16.0) gm/dL Hct (34.0-46.0) % MCH (25.0-35.0) pg MCHC (31.0-37.0) g/dL RDW (11.5-15.5) % Retic Count (0.10-1.80) % Sodium 136 L (137-145) mmol/L Chloride 91 L (98-107) mmol/L Carbon Dioxide 39 H (22-30) mmol/L BUN 40 H (7-17) mg/dL Creatinine 1.17 H (0.52-1.04) mg/dL Glucose 235 H (74-99) mg/dL POC Glucose (mg/dL) 258 H 317 H (75-99) mg/dL Iron (50-170) ug/dL % Saturation (12.00-45.00) Alkaline Phosphatase 139 H (38-126) U/L Lactate Dehydrogenase (120-246) U/L Assessment and Plan (1) Anemia associated with acute blood loss Narrative/Plan: This is a 65-year-old lady who has obscure gastrointestinal bleed. Patient with multiple hospitalizations over the last 1 year duration. She had EGDs colonoscopies and small bowel enteroscopy as well as small bowel capsule endoscopy several times in the last 6 months. She has a history of a small bowel capsule endoscopy that showed nonbleeding angiectasia in the distal jejunum. The patient was transferred to [facility] in June 2020 and underwent a small bowel single balloon enteroscopy and the scope was advanced up to the distal jejunum and no obvious source of bleeding was identified. Tattooing was performed at the level of insertion of the scope. It was recommended to perform a small bowel capsule endoscopy to see the bleeding site or if there has any angiectasia beyond the tattooing site and if so consideration for single balloon enteroscopy through colonoscopy could be performed. She is admitted with a hemoglobin of 6.7 requiring 2 units of PRBC transfusion. Repeat hemoglobin is 7.7. She has been having black tarry stools again for the last 2-3 days duration. She is not on any anticoagulation at the present time. Current Visit: No Status: Acute Code(s): D62 - ACUTE POSTHEMORRHAGIC ANEMIA SNOMED Code(s): 056308356 (2) Chronic obstructive pulmonary disease (COPD) Current Visit: Yes Status: Acute Code(s): J44.9 - CHRONIC OBSTRUCTIVE PULMONARY DISEASE, UNSPECIFIED SNOMED Code(s): 84492431 (3) GI bleed Current Visit: Yes Status: Acute Code(s): K92.2 - GASTROINTESTINAL HEMORRHAGE, UNSPECIFIED SNOMED Code(s): 42185463 (4) Arteriovenous malformation of small intestine Narrative/Plan: Small bowel video capsule endoscopy revealed active bleeding in the distal duodenum and proximal jejunum. Current Visit: No Status: Acute Priority: High Code(s): K55.20 - ANGIODYSPLASIA OF COLON WITHOUT HEMORRHAGE SNOMED Code(s): 575874344 Plan: 1. Consistent carbohydrate diet, nothing by mouth after midnight 2. Small bowel video capsule endoscopy completed and reviewed with active bleeding 3. Patient scheduled for upper endoscopy tomorrow 4. Continue medical management 5. Repeat CBC transfuse for hemoglobin less than 7 Thank you for this consultation we will continue to follow Dr. Pretty Samayoa I agree with the dictator's note, documented as a scribe by Cinthya Montoya.
[2020-08-28 16:48] LABS: Glucose,Whole Blood 196 mg/dL (75-99)
[2020-08-28 20:25] LABS: Glucose,Whole Blood 106 mg/dL (75-99)
[2020-08-28] MEDS: MONTELUKAST 10 MG TAB PO SCH (20:46)
[2020-08-28] MEDS: MELATONIN 3 MG TABLET PO SCH (21:16)
[2020-08-29] MEDS ORDERED: LIDOCAINE 1% INJ 10MG/ML (20 ML MDV) ONE (07:03)
[2020-08-29] MEDS ORDERED: PROPOFOL 10 MG/ML 20 ML VIAL IV ONE (07:03)
[2020-08-29] MEDS ORDERED: GLUCAGON 1 MG/ML VIAL ONE (07:03)
[2020-08-29] MEDS ORDERED: SODIUM CHLORIDE 0.9% 500 ML 500 ML IV ONE (07:04)
--- NOTE | 2020-08-29 07:35 | P.PCN ---
Date of Procedure: 08/29/20 Procedure(s) Performed: BRIEF HISTORY: Patient is a 65-year-old, pleasant, white female admitted hospital with black stools and recurrent iron deficiency anemia and obscure GI bleed. She multiple hospitalizations over the last 8 months and underwent multiple EGDs, small bowel enteroscopy and small bowel capsule endoscopy. She was transferred to [facility] when she underwent single balloon enteroscopy and no active bleeding was identified. Tattooing was performed at the site of maximal insertion of the balloon enteroscope. During this hospitalization she had a small bowel capsule endoscopy done yesterday to see if the bleeding is proximal to the tattooing site and the study revealed active oozing in the distal duodenum. Hence he scheduled for repeat small bowel enteroscopy today.. PROCEDURE PERFORMED: Esophagogastroduodenoscopy/enteroscopy with argon plasma coagulation . PREOPERATIVE DIAGNOSIS: Obscure GI bleed/small bowel capsule endoscopy yesterday showed active oozing in the distal duodenum IV sedation per anesthesia. PROCEDURE: After informed consent was obtained, the patient was brought into the endoscopy unit. IV sedation was administered by Anesthesia under continuous monitoring. Initially the Olympus GIF-140 video endoscope was inserted into the mouth. Esophagus intubated without any difficulty. It was gradually advanced into the stomach and duodenum and into the proximal jejunum carefully examined. the scope was advanced about 30 cm into the proximal jejunum that appeared normal. In the distal duodenum there were 2 small nonbleeding angiectasia identified which was ablated using argon plasma. No active bleeding seen.. The scope at this time was withdrawn to the stomach, adequately insufflated with air, and upon careful examination, mucosa of the antrum, body, cardia and the fundus appeared normal. The scope was then withdrawn into the esophagus. The GE junction was located at 39 cm from the incisors. The esophagus appeared normal. There were no erosions or ulcerations seen and the patient tolerated the procedure well. IMPRESSION: 1. 2 small nonbleeding duodenal angiectasia status post argon plasma coagulated as described above. 2. Stomach and esophagus appeared normal. RECOMMENDATIONS: The findings of this examination were discussed with the patient.. Diet will be advanced as tolerated. Monitor CBC daily..
[2020-08-29 08:07] LABS: Glucose,Whole Blood 318 mg/dL (75-99)
[2020-08-29] MEDS: METOPROLOL TARTRATE 50 MG TAB PO SCH ×2 (08:13→21:26)
[2020-08-29] MEDS: SPIRONOLACTONE 25 MG TAB PO SCH (08:14)
[2020-08-29] MEDS: INSULIN DETEMIR (LEVEMIR) 100 UNIT/ML SYR SQ SCH ×2 (08:14→21:25)
[2020-08-29] MEDS: PREGABALIN 100 MG CAP PO SCH ×2 (08:14→21:26)
[2020-08-29] MEDS: ATORVASTATIN 40 MG TAB PO SCH (08:14)
[2020-08-29] MEDS: PANTOPRAZOLE 40 MG TABLET PO SCH ×2 (08:14→17:39)
[2020-08-29] MEDS: FUROSEMIDE 40 MG TAB PO SCH ×2 (08:14→13:30)
[2020-08-29] MEDS: FLUoxetine HCL 20 MG CAP PO SCH (08:14)
[2020-08-29] MEDS: POTASSIUM CHLORIDE ER 10 MEQ TAB.ER.PRT PO SCH ×2 (08:14→21:26)
[2020-08-29] MEDS: ISOSORBIDE MONONITRATE ER 30 MG TAB.ER.24H PO SCH (08:14)
[2020-08-29] MEDS: INSULIN ASPART (NovoLOG) 100 UNIT/ML VIAL SQ SCH ×4 (08:14→21:25)
[2020-08-29] MEDS: LEVOTHYROXINE 125 MCG TAB PO SCH (08:15)
[2020-08-29] MEDS: LINAGLIPTIN 5 MG TABLET PO SCH (08:15)
[2020-08-29] MEDS: metOLazone 2.5 MG TAB PO SCH (08:15)
[2020-08-29] MEDS: GLIMEPIRIDE 2 MG TAB PO SCH (08:15)
[2020-08-29] MEDS: SYMBICORT 160-4.5 MCG INHALER INHALATION SCH ×2 (08:24→21:06)
[2020-08-29 11:24] LABS: Anisocytosis Moderate; HCT 23.5 % (34.0-46.0); Hypochromasia Marked; MCH 23.9 pg (25.0-35.0); MCV 82.5 fL (80.0-100.0); Mean Platelet Volume 7.5; Microcytosis Slight; Platelet Count 269 k/uL (150-450); Poikilocytosis Marked; RBC 2.85 m/uL (3.80-5.40); RDW 20.6 % (11.5-15.5)
[2020-08-29 11:38] LABS: HGB 6.8 gm/dL (11.4-16.0)
[2020-08-29 12:13] LABS: Glucose,Whole Blood 297 mg/dL (75-99)
--- NOTE | 2020-08-29 12:49 | P.PN ---
Subjective Progress Note Date: 08/29/20 hemoglobin 6.8 transfuse one unit of PRBC. With evidence of GI bleeding component will give Parental iron Objective - Vital Signs Vital signs: Vital Signs Temp 97.4 F L 08/29/20 08:05 Pulse 61 08/29/20 08:05 Resp 19 08/29/20 08:05 BP 124/63 08/29/20 08:05 Pulse Ox 99 08/29/20 08:05 Intake & Output 08/28/20 08/29/20 08/29/20 18:59 06:59 18:59 Intake Total 1200 100 Balance 1200 100 Intake: IV 100 Oral 1200 Other: Voiding Method Toilet Toilet Toilet # Voids 4 3 1 # Bowel Movements 1 0 - Exam - Constitutional General appearance: cooperative, no acute distress - EENT ENT: NA/AT, normal oropharynx - Neck Neck: normal ROM - Respiratory Respiratory: bilateral: CTA - Cardiovascular Rhythm: regular - Gastrointestinal General gastrointestinal: normal bowel sounds, soft - Integumentary Integumentary: pale - Neurologic Neurologic: CNII-XII intact - Musculoskeletal Musculoskeletal: generalized weakness, strength equal bilaterally - Psychiatric Psychiatric: A&O x's 3, appropriate affect, intact judgment & insight - Labs CBC & Chem 7: 08/29/20 10:31 08/28/20 06:52 Labs: Abnormal Lab Results - Last 24 Hours (Table) 08/26/20 08/26/20 08/28/20 Range/Units 12:54 12:54 16:41 WBC (3.8-10.6) k/uL RBC (3.80-5.40) m/uL Hgb (11.4-16.0) gm/dL Hct (34.0-46.0) % MCH (25.0-35.0) pg MCHC (31.0-37.0) g/dL RDW (11.5-15.5) % POC Glucose (mg/dL) 196 H (75-99) mg/dL Methylmalonic Acid 0.92 H (<0.40) umol/L Crossmatch See Detail 08/28/20 08/29/20 08/29/20 Range/Units 19:52 08:03 10:31 WBC 17.0 H (3.8-10.6) k/uL RBC 2.85 L (3.80-5.40) m/uL Hgb 6.8 L* (11.4-16.0) gm/dL Hct 23.5 L (34.0-46.0) % MCH 23.9 L (25.0-35.0) pg MCHC 29.0 L (31.0-37.0) g/dL RDW 20.6 H (11.5-15.5) % POC Glucose (mg/dL) 106 H 318 H (75-99) mg/dL Methylmalonic Acid (<0.40) umol/L Crossmatch 08/29/20 Range/Units 12:10 WBC (3.8-10.6) k/uL RBC (3.80-5.40) m/uL Hgb (11.4-16.0) gm/dL Hct (34.0-46.0) % MCH (25.0-35.0) pg MCHC (31.0-37.0) g/dL RDW (11.5-15.5) % POC Glucose (mg/dL) 297 H (75-99) mg/dL Methylmalonic Acid (<0.40) umol/L Crossmatch Assessment and Plan Plan: Assessment and Recommendations: Microcytic Anemia - Primarily secondary to small bowel AVMs - Iron Studies likely not accurate with recent transfusions and supplementation additional work-up to rule out other addition factors GI is following Transfuse today Parental iron as iron studies are not accurate. Will need 3-5 Parental irons prior to discharge and then a 4 week follow-up Physician attest: I have completed the full history and physical and agree with above dictation dictated as a scribe
--- NOTE | 2020-08-29 15:08 | P.PN ---
Subjective Progress Note Date: 08/29/20 HISTORY OF PRESENT ILLNESS This is a 65-year-old female patient of Dr. Deras with past medical history significant for heart failure, COPD, chronic hypoxic respiratory failure on home O2 at 2 L nasal cannula and obstructive sleep apnea on BiPAP support at bedtime, diabetes mellitus type 2 with diabetic neuropathy, chronic diastolic heart failure, valvular heart disease, hypertension, hypothyroidism, GI bleed with anemia. Patient has had multiple admissions and multiple endoscopies for GIB and anemia. One completed on May 2020 revealed proximal small bowel angiodysplasia treated with coagulation therapy. Patient has also been treated at tertiary care centers. Patient was seen by Dr. Diallo in the office yesterday and was found to have a hemoglobin of 6.8 and patient was instructed to come into the hospital for evaluation. Patient complains of feeling weak, had some episodes of shortness of breath, abdominal pain across the upper area. No constipation or diarrhea. She states she is having black stool despite stopping iron. No fever or chills. No cough. After last admission, patient was to follow up with Dr. Reyes in the office. She states she has a call there and is waiting for an appointment. Patient presented to the [facility] emergency center for evaluation area and she was afebrile, heart rate 75, blood pressure 114/50, pulse ox 100% on room air. EKG was a sinus rhythm with no acute ST changes. WBC 14.4, hemoglobin 6.7, platelet count 434. Sodium 137, potassium 4.1, chloride 93, CO2 34, BUN 50 and creatinine 1.39. Blood sugar 164. Magnesium 2.5. Total bilirubin 0.5. Alkaline phosphatase 148. He was transfused 1 unit of packed RBCs, admitted to the oncology unit, GI consult and subsequently oncology consult for anemia added. 3: Repeat blood work reveals a globus 7.3, WBC 14.3, platelet count 336. Sodium 136, potassium 3.7, chloride 91, CO2 39, BUN 40 creatinine 1.17. Blood sugars have been elevated and patient will be started on glimepiride 2 mg every day. Patient denies having any abdominal pain. She states her appetite is okay. She is still having black stools. Patient has been seen by GI and un derwent capsule endoscopy yesterday anticipate a report will be available later today. Patient has been afebrile, heart rate 72, blood pressure 101/55, pulse ox 95% on 3 L nasal cannula. Patient is also been seen by oncology 08/29: Capsule endoscopy found active bleeding and patient underwent EGD this morning the found to small nonbleeding duodenal angiectasia status post argon plasma coagulated. Stomach and esophageal normal. Diet can be advanced. CBC is ordered for tomorrow. She has been afebrile, heart rate 61, blood pressure 124/63, pulse ox 99% on 3 L. Hemoglobin is 6.8 a patient ordered for his fusion of 1 unit of packed RBCs. Anticipate the patient will be ready for discharge to [facility]. REVIEW OF SYSTEMS Constitutional: No fever, no chills, no night sweats. No weight change. Reports weakness and fatigue no lethargy. No daytime sleepiness. EENT: No headache. No blurred vision or double vision, no loss of vision. No loss of Hearing, no ringing in the ears, no dizziness. No nasal drainage or congestion. No epistaxis. No sore throat. Lungs: Reports shortness of breath, reports cough, no sputum production. No wheezing. Cardiovascular: No chest pain, no lower extremity edema. No palpitations. No paroxysmal nocturnal dyspnea. No orthopnea. No lightheadedness or dizziness. No syncopal episodes. Abdominal: Denies abdominal pain. No nausea, vomiting. no diarrhea. No constipation. No bloody stools denies tarry stools. Denies bright red bleeding. no loss of appetite. Genitourinary: No dysuria, increased frequency, urgency. No urinary retention. Musculoskeletal: No myalgias. No muscle weakness, no gait dysfunction, no frequent falls. No back pain. No neck pain. Integumentary: No wounds, no lesions. No rash or pruritus. No unusual bruising. No change in hair or nails. Neurologic: No aphasia. No facial droop. No change in mentation. No head injury. No headache. No paralysis. No paresthesia. Psychiatric: No depression. No anxiety. No mood swings. Endocrine: No abnormal blood sugars. No weight change. No excessive sweating or thirst. PHYSICAL EXAMINATION Gen: This is a 65-year-old female. She is resting in bed and appears to be comfortable at rest. HEENT: Head is atraumatic, normocephalic. Pupils equal, round. Sclerae is anicteric. Conjunctiva pale. NECK: Supple. No JVD. No lymphadenopathy. No thyromegaly. LUNGS: Clear to auscultation. No wheezes or rhonchi. No intercostal retractions. HEART: Regular rate and rhythm. Systolic murmur. ABDOMEN: Soft. Bowel sounds are present. No masses. No tenderness. EXTREMITIES: No pedal edema. No calf tenderness. Dorsalis pedis +2 bilaterally. NEUROLOGICAL: Patient is awake, alert and oriented x3. Cranial nerves 2 through 12 are grossly intact. ASSESSMENT AND PLAN 1. Acute on chronic GI bleed with acute blood loss anemia secondary to duodenal angiectasia status post argon plasma coagulated. Patient has been transfused 1 unit of packed RBCs. Second unit of packed RBCs ordered. Consult with GI and oncology appreciated. Ferrlecit 125 mg daily 2 will be completed today. Protonix 40 mg oral twice daily. Status post capsule endoscopy. 2. Diabetes mellitus type 2 with diabetic neuropathy, uncontrolled with hyperglycemia. Continue Levemir 30 units twice daily and NovoLog scale before meals and at bedtime. Continue Tadjenta 5 mg daily. Add glimepiride 2 mg daily. 3. Diabetic neuropathy. Continue Lyrica milligrams twice daily. 4. COPD without exacerbation. Continue DuoNeb treatment 4 times daily as needed, Symbicort 1604 0.5 g twice daily, Singulair 10 mg at bedtime. 5. Hypertension. Continue Lasix 40 mg twice daily, Lopressor 100 mg twice daily. 6. Chronic diastolic heart failure without exacerbation. Continue Lopressor, Lasix, Aldactone 25 mg daily, Zaroxolyn 2.5 mg on Tuesday. 7. Hyperlipidemia. Continue Lipitor 40 mg daily. 8. Obstructive sleep apnea. Continue BiPAP at night. 9. Restless leg syndrome. Continue Requip 2 mg twice daily. 10. Recurrent depression. Continue Prozac 20 mg daily. 11. GI prophylaxis. Protonix twice daily. 12. DVT prophylaxis. SCDs and FILEMON hose. Discharge Plan: Home on Tuesday. Impression and plan of care have been directed as dictated by the signing physician. Clarice Colón nurse practitioner acting as scribe for signing physician. Objective - Vital Signs Vital signs: Vital Signs Temp 97.4 F L 08/29/20 08:05 Pulse 61 03/05/21 08:05 Resp 19 08/29/20 08:05 BP 124/63 08/29/20 08:05 Pulse Ox 99 08/29/20 08:05 Intake & Output 08/28/20 08/29/20 08/29/20 18:59 06:59 18:59 Intake Total 1200 100 Balance 1200 100 Intake: IV 100 Oral 1200 Other: Voiding Method Toilet Toilet Toilet # Voids 4 3 1 # Bowel Movements 1 0 - Labs CBC & Chem 7: 08/29/20 10:31 08/28/20 06:52 Labs: Abnormal Lab Results - Last 24 Hours (Table) 08/26/20 08/26/20 08/28/20 Range/Units 12:54 12:54 16:41 WBC (3.8-10.6) k/uL RBC (3.80-5.40) m/uL Hgb (11.4-16.0) gm/dL Hct (34.0-46.0) % MCH (25.0-35.0) pg MCHC (31.0-37.0) g/dL RDW (11.5-15.5) % POC Glucose (mg/dL) 196 H (75-99) mg/dL Methylmalonic Acid 0.92 H (<0.40) umol/L Crossmatch See Detail 08/28/20 08/29/20 08/29/20 Range/Units 19:52 08:03 10:31 WBC 17.0 H (3.8-10.6) k/uL RBC 2.85 L (3.80-5.40) m/uL Hgb 6.8 L* (11.4-16.0) gm/dL Hct 23.5 L (34.0-46.0) % MCH 23.9 L (25.0-35.0) pg MCHC 29.0 L (31.0-37.0) g/dL RDW 20.6 H (11.5-15.5) % POC Glucose (mg/dL) 106 H 318 H (75-99) mg/dL Methylmalonic Acid (<0.40) umol/L Crossmatch 08/29/20 Range/Units 12:10 WBC (3.8-10.6) k/uL RBC (3.80-5.40) m/uL Hgb (11.4-16.0) gm/dL Hct (34.0-46.0) % MCH (25.0-35.0) pg MCHC (31.0-37.0) g/dL RDW (11.5-15.5) % POC Glucose (mg/dL) 297 H (75-99) mg/dL Methylmalonic Acid (<0.40) umol/L Crossmatch
[2020-08-29 17:26] LABS: Glucose,Whole Blood 309 mg/dL (75-99)
[2020-08-29 20:39] LABS: Glucose,Whole Blood 272 mg/dL (75-99)
[2020-08-29 21:04] VITALS: RESP 16
[2020-08-29] MEDS: MELATONIN 3 MG TABLET PO SCH (21:26)
[2020-08-29] MEDS: MONTELUKAST 10 MG TAB PO SCH (21:26)
[2020-08-30] MEDS: LEVOTHYROXINE 125 MCG TAB PO SCH (06:01)
[2020-08-30 07:04] LABS: Glucose,Whole Blood 286 mg/dL (75-99)
[2020-08-30] MEDS: SYMBICORT 160-4.5 MCG INHALER INHALATION SCH ×2 (08:28→20:24)
[2020-08-30] MEDS: SPIRONOLACTONE 25 MG TAB PO SCH (09:55)
[2020-08-30] MEDS: GLIMEPIRIDE 2 MG TAB PO SCH (09:56)
[2020-08-30] MEDS: PREGABALIN 100 MG CAP PO SCH ×2 (09:56→20:31)
[2020-08-30] MEDS: FLUoxetine HCL 20 MG CAP PO SCH (09:57)
[2020-08-30] MEDS: ATORVASTATIN 40 MG TAB PO SCH (09:57)
[2020-08-30] MEDS: INSULIN ASPART (NovoLOG) 100 UNIT/ML VIAL SQ SCH ×4 (09:57→20:31)
[2020-08-30] MEDS: POTASSIUM CHLORIDE ER 10 MEQ TAB.ER.PRT PO SCH ×2 (09:57→20:31)
[2020-08-30] MEDS: ISOSORBIDE MONONITRATE ER 30 MG TAB.ER.24H PO SCH (09:57)
[2020-08-30] MEDS: FUROSEMIDE 40 MG TAB PO SCH ×2 (09:57→13:46)
[2020-08-30] MEDS: PANTOPRAZOLE 40 MG TABLET PO SCH ×2 (09:57→17:44)
[2020-08-30] MEDS: LINAGLIPTIN 5 MG TABLET PO SCH (09:57)
[2020-08-30] MEDS: INSULIN DETEMIR (LEVEMIR) 100 UNIT/ML SYR SQ SCH ×2 (09:58→20:31)
[2020-08-30] MEDS: METOPROLOL TARTRATE 50 MG TAB PO SCH ×2 (10:05→20:31)
[2020-08-30] MEDS: SODIUM FERRIC GLUCONAT-SUCROSE 125 MG in SODIUM CHLORIDE 0.9% 100 ML IVPB SCH (10:14)
[2020-08-30 11:13] LABS: Glucose,Whole Blood 350 mg/dL (75-99)
[2020-08-30 11:29] LABS: ALT 18 U/L (4-34); AST 26 U/L (14-36); African American GFR (CKD) 60 (>60 ml/min/1.73 sqM); Albumin 3.6 g/dL (3.5-5.0); Albumin/Globulin Ratio 1.3; Alkaline Phosphatase 133 U/L (38-126); Anion Gap 7 mmol/L; Blood Urea Nitrogen 41 mg/dL (7-17); Calcium 8.8 mg/dL (8.4-10.2); Carbon Dioxide 38 mmol/L (22-30); Chloride 90 mmol/L (98-107); Globulin 2.8 g/dL; Glucose 281 mg/dL (74-99); Non-African American GFR(CKD) 52 (>60 ml/min/1.73 sqM); Potassium 4.4 mmol/L (3.5-5.1); Sodium 135 mmol/L (137-145); Total Bilirubin 0.4 mg/dL (0.2-1.3); Total Protein 6.4 g/dL (6.3-8.2)
--- NOTE | 2020-08-30 13:57 | P.PN ---
Subjective Progress Note Date: 08/30/20 This is a 65-year-old female patient of Dr. Deras with past medical history significant for heart failure, COPD, chronic hypoxic respiratory failure on home O2 at 2 L nasal cannula and obstructive sleep apnea on BiPAP support at bedtime, diabetes mellitus type 2 with diabetic neuropathy, chronic diastolic heart failure, valvular heart disease, hypertension, hypothyroidism, GI bleed with anemia. Patient has had multiple admissions and multiple endoscopies for GIB and anemia. One completed on May 2020 revealed proximal small bowel angiodysplasia treated with coagulation therapy. Patient has also been treated at tertiary care centers. Patient was seen by Dr. Diallo in the office yesterday and was found to have a hemoglobin of 6.8 and patient was instructed to come into the hospital for evaluation. Patient complains of feeling weak, had some episodes of shortness of breath, abdominal pain across the upper area. No constipation or diarrhea. She states she is having black stool despite stopping iron. No fever or chills. No cough. After last admission, patient was to follow up with Dr. Reyes in the office. She states she has a call there and is waiting for an appointment. Patient presented to the [facility] emergency center for evaluation area and she was afebrile, heart rate 75, blood pressure 114/50, pulse ox 100% on room air. EKG was a sinus rhythm with no acute ST changes. WBC 14.4, hemoglobin 6.7, platelet count 434. Sodium 137, potassium 4.1, chloride 93, CO2 34, BUN 50 and creatinine 1.39. Blood sugar 164. Magnesium 2.5. Total bilirubin 0.5. Alkaline phosphatase 148. He was transfused 1 unit of packed RBCs, admitted to the oncology unit, GI consult and subsequently oncology consult for anemia added. 08/28: Repeat blood work reveals a globus 7.3, WBC 14.3, platelet count 336. Sodium 136, potassium 3.7, chloride 91, CO2 39, BUN 40 creatinine 1.17. Blood sugars have been elevated and patient will be started on glimepiride 2 mg every day. Patient denies having any abdominal pain. She states her appetite is okay. She is still having black stools. Patient has been seen by GI and underwent capsule endoscopy yesterday anticipate a report will be available later today. Patient has been afebrile, heart rate 72, blood pressure 101/55, p ulse ox 95% on 3 L nasal cannula. Patient is also been seen by oncology 08/29: Capsule endoscopy found active bleeding and patient underwent EGD this morning the found to small nonbleeding duodenal angiectasia status post argon plasma coagulated. Stomach and esophageal normal. Diet can be advanced. CBC is ordered for tomorrow. She has been afebrile, heart rate 61, blood pressure 124/63, pulse ox 99% on 3 L. Hemoglobin is 6.8 a patient ordered for his fusion of 1 unit of packed RBCs. Anticipate the patient will be ready for discharge tomorrow. 08/30: Resting Comfortably Sitting up in a Chair. She Has Not Had Any Bloody Stools. Is Able to Tolerate Her Diet. hemiglobin 6.8 yesterday. She remains afebrile, heart rate 66, blood pressure 129/62, respirations 16 nonlabored, pulse ox 97% on 3 L high flow nasal cannula. REVIEW OF SYSTEMS Constitutional: No fever, no chills, no night sweats. No weight change. Reports weakness and fatigue no lethargy. No daytime sleepiness. EENT: No headache. No blurred vision or double vision, no loss of vision. No loss of Hearing, no ringing in the ears, no dizziness. No nasal drainage or congestion. No epistaxis. No sore throat. Lungs: Reports shortness of breath, reports cough, no sputum production. No wheezing. Cardiovascular: No chest pain, no lower extremity edema. No palpitations. No paroxysmal nocturnal dyspnea. No orthopnea. No lightheadedness or dizziness. No syncopal episodes. Abdominal: Denies abdominal pain. No nausea, vomiting. no diarrhea. No constipation. No bloody stools denies tarry stools. Denies bright red bleeding. no loss of appetite. Genitourinary: No dysuria, increased frequency, urgency. No urinary retention. Musculoskeletal: No myalgias. No muscle weakness, no gait dysfunction, no frequent falls. No back pain. No neck pain. Integumentary: No wounds, no lesions. No rash or pruritus. No unusual bruising. No change in hair or nails. Neurologic: No aphasia. No facial droop. No change in mentation. No head injury. No headache. No paralysis. No paresthesia. Psychiatric: No depression. No anxiety. No mood swings. Endocrine: No abnormal blood sugars. No weight change. No excessive sweating or thirst. PHYSICAL EXAMINATION Gen: This is a 65-year-old female. She is resting in bed and appears to be comfortable at rest. HEENT: Head is atraumatic, normocephalic. Pupils equal, round. Sclerae is anicteric. Conjunctiva pale. NECK: Supple. No JVD. No lymphadenopathy. No thyromegaly. LUNGS: Clear to auscultation. No wheezes or rhonchi. No intercostal retractions. HEART: Regular rate and rhythm. Systolic murmur. ABDOMEN: Soft. Bowel sounds are present. No masses. No tenderness. EXTREMITIES: No pedal edema. No calf tenderness. Dorsalis pedis +2 bilaterally. NEUROLOGICAL: Patient is awake, alert and oriented x3. Cranial nerves 2 through 12 are grossly intact. ASSESSMENT AND PLAN 1. Acute on chronic GI bleed with acute blood loss anemia secondary to duodenal angiectasia status post argon plasma coagulated. Patient has been transfused 1 unit of packed RBCs. Second unit of packed RBCs ordered. Consult with GI and oncology appreciated. Ferrlecit 125 mg daily 2 will be completed today. Protonix 40 mg oral twice daily. Status post capsule endoscopy. 2. Diabetes mellitus type 2 with diabetic neuropathy, uncontrolled with hyperglycemia. Continue Levemir 30 units twice daily and NovoLog scale before meals and at bedtime. Continue Tadjenta 5 mg daily. Add glimepiride 2 mg daily. 3. Diabetic neuropathy. Continue Lyrica milligrams twice daily. 4. COPD without exacerbation. Continue DuoNeb treatment 4 times daily as needed, Symbicort 1604 0.5 g twice daily, Singulair 10 mg at bedtime. 5. Hypertension. Continue Lasix 40 mg twice daily, Lopressor 100 mg twice daily. 6. Chronic diastolic heart failure without exacerbation. Continue Lopressor, Lasix, Aldactone 25 mg daily, Zaroxolyn 2.5 mg on Tuesday. 7. Hyperlipidemia. Continue Lipitor 40 mg daily. 8. Obstructive sleep apnea. Continue BiPAP at night. 9. Restless leg syndrome. Continue Requip 2 mg twice daily. 10. Recurrent depression. Continue Prozac 20 mg daily. 11. GI prophylaxis. Protonix twice daily. 12. DVT prophylaxis. SCDs and FILEMON hose. Discharge Plan: Home on Tuesday. Impression and plan of care have been directed as dictated by the signing physician. Brandy Villatoro nurse practitioner acting as scribe for signing physician. Objective - Vital Signs Vital signs: Vital Signs Temp 98.1 F 08/30/20 11:06 Pulse 66 08/30/20 11:06 Resp 16 08/30/20 11:06 BP 129/62 08/30/20 11:06 Pulse Ox 97 08/30/20 11:06 Intake & Output 08/29/20 08/30/20 08/30/20 18:59 06:59 18:59 Intake Total 890 1000 Balance 890 1000 Intake: IV 100 Oral 480 1000 Blood Product 310 Rc As-1 Unit 310 [id number] Other: Voiding Method Toilet Toilet Toilet # Voids 2 3 # Bowel Movements 0 - Labs CBC & Chem 7: 08/29/20 10:31 08/30/20 09:24 Labs: Abnormal Lab Results - Last 24 Hours (Table) 08/26/20 08/29/20 08/29/20 Range/Units 12:54 17:22 20:37 Sodium (137-145) mmol/L Chloride (98-107) mmol/L Carbon Dioxide (22-30) mmol/L BUN (7-17) mg/dL Creatinine (0.52-1.04) mg/dL Glucose (74-99) mg/dL POC Glucose (mg/dL) 309 H 272 H (75-99) mg/dL Alkaline Phosphatase (38-126) U/L Crossmatch See Detail 08/30/20 08/30/20 08/30/20 Range/Units 06:59 09:24 11:08 Sodium 135 L (137-145) mmol/L Chloride 90 L (98-107) mmol/L Carbon Dioxide 38 H (22-30) mmol/L BUN 41 H (7-17) mg/dL Creatinine 1.11 H (0.52-1.04) mg/dL Glucose 281 H (74-99) mg/dL POC Glucose (mg/dL) 286 H 350 H (75-99) mg/dL Alkaline Phosphatase 133 H (38-126) U/L Crossmatch
[2020-08-30 17:24] LABS: Glucose,Whole Blood 153 mg/dL (75-99)
[2020-08-30 17:26] LABS: HCT 26.8 % (37.2-46.3); HGB 7.5 g/dL (12.0-15.0); MCH 24.8 pg (27.0-32.0); MCV 88.7 fL (80.0-97.0); Mean Platelet Volume 11.3 fL (9.5-12.2); Platelet Count 273 X 10*3/uL (140-440); RBC 3.02 X 10*6/uL (4.10-5.20); RDW 20.6 % (11.5-14.5); WBC 14.52 X 10*3/uL (4.50-10.00)
[2020-08-30 17:50] LABS: Anisocytosis Moderate; Basophils # (A) 0.1 k/uL (0-0.2); Basophils % (A) 1 %; Eosinophils # (A) 0.7 k/uL (0-0.7); Eosinophils % (A) 6 %; HCT 26.4 % (34.0-46.0); HGB 7.9 gm/dL (11.4-16.0); Hypochromasia Marked; Lymphocytes # (A) 1.1 k/uL (1.0-4.8); Lymphocytes % (A) 9 %; MCH 25.1 pg (25.0-35.0); MCHC 29.9 g/dL (31.0-37.0); MCV 83.8 fL (80.0-100.0); Mean Platelet Volume 8.3; Microcytosis Slight; Monocytes # (A) 0.9 k/uL (0-1.0); Monocytes % (A) 7 %; Neutrophils # (A) 9.6 k/uL (1.3-7.7); Neutrophils % (A) 75 %; Platelet Count 256 k/uL (150-450); Poikilocytosis Marked; RBC 3.15 m/uL (3.80-5.40); RDW 21.2 % (11.5-15.5); WBC 12.8 k/uL (3.8-10.6)
[2020-08-30 20:19] LABS: Glucose,Whole Blood 254 mg/dL (75-99)
[2020-08-30] MEDS: MELATONIN 3 MG TABLET PO SCH (20:31)
[2020-08-30] MEDS: MONTELUKAST 10 MG TAB PO SCH (20:31)
[2020-08-31] MEDS: LEVOTHYROXINE 125 MCG TAB PO SCH (06:03)
[2020-08-31 07:00] LABS: Glucose,Whole Blood 285 mg/dL (75-99)
[2020-08-31] MEDS: PREGABALIN 100 MG CAP PO SCH (08:17)
[2020-08-31] MEDS: SPIRONOLACTONE 25 MG TAB PO SCH (08:18)
[2020-08-31] MEDS: INSULIN DETEMIR (LEVEMIR) 100 UNIT/ML SYR SQ SCH (08:18)
[2020-08-31] MEDS: ATORVASTATIN 40 MG TAB PO SCH (08:18)
[2020-08-31] MEDS: POTASSIUM CHLORIDE ER 10 MEQ TAB.ER.PRT PO SCH (08:18)
[2020-08-31] MEDS: FUROSEMIDE 40 MG TAB PO SCH (08:18)
[2020-08-31] MEDS: INSULIN ASPART (NovoLOG) 100 UNIT/ML VIAL SQ SCH ×2 (08:18→12:02)
[2020-08-31] MEDS: ISOSORBIDE MONONITRATE ER 30 MG TAB.ER.24H PO SCH (08:18)
[2020-08-31] MEDS: FLUoxetine HCL 20 MG CAP PO SCH (08:18)
[2020-08-31] MEDS: PANTOPRAZOLE 40 MG TABLET PO SCH (08:18)
[2020-08-31] MEDS: GLIMEPIRIDE 2 MG TAB PO SCH (08:19)
[2020-08-31] MEDS: LINAGLIPTIN 5 MG TABLET PO SCH (08:19)
[2020-08-31] MEDS: SODIUM FERRIC GLUCONAT-SUCROSE 125 MG in SODIUM CHLORIDE 0.9% 100 ML IVPB SCH (08:50)
[2020-08-31] MEDS: METOPROLOL TARTRATE 50 MG TAB PO SCH (08:56)
[2020-08-31] MEDS: SYMBICORT 160-4.5 MCG INHALER INHALATION SCH (09:01)
[2020-08-31 09:42] LABS: Basophils # (A) 0.11 X 10*3/uL (0.00-0.10); Basophils % (A) 0.9 %; Eosinophils # (A) 1.05 X 10*3/uL (0.04-0.35); Eosinophils % (A) 8.2 %; HCT 25.4 % (37.2-46.3); Lymphocytes # (A) 1.45 X 10*3/uL (0.90-5.00); Lymphocytes % (A) 11.3 %; MCH 24.5 pg (27.0-32.0); MCHC 27.6 g/dL (32.0-37.0); MCV 88.8 fL (80.0-97.0); Mean Platelet Volume 11.4 fL (9.5-12.2); Monocytes # (A) 1.22 X 10*3/uL (0.20-1.00); Monocytes % (A) 9.5 %; Neutrophils # (A) 8.96 X 10*3/uL (1.80-7.70); Neutrophils % (A) 69.6 %; Platelet Count 232 X 10*3/uL (140-440); RBC 2.86 X 10*6/uL (4.10-5.20); RDW 21.1 % (11.5-14.5); WBC 12.85 X 10*3/uL (4.50-10.00)
[2020-08-31 10:25] LABS: Anion Gap 9.1 mmol/L (4.00-12.00); Calcium 8.6 mg/dL (8.7-10.3); Carbon Dioxide 36.9 mmol/L (21.6-31.8); Non-African American GFR(CKD) 58.7 (60.0-200.0); Potassium 4.1 mmol/L (3.5-5.5)
[2020-08-31 11:18] LABS: Glucose,Whole Blood 237 mg/dL (75-99)
[2020-08-31 11:40] VITALS: BP 117/53; PULSE 65; TEMP 97.3
--- NOTE | 2020-08-31 11:42 | P.DS ---
Providers Date of admission: 08/26/20 14:30 Attending physician: Juana Denny Consults: 08/26/20 14:29 Consult Physician Urgent Consulting Provider: Vivian Samayoa Consult Reason/Comments: GI bleed Do you want consulting provider notified?: Yes 08/27/20 09:04 Consult Physician Routine Consulting Provider: Harish Reyes Consult Reason/Comments: anemia Do you want consulting provider notified?: Yes Primary care physician: Yoel Deras [facility] Course: This is a 65-year-old female patient of Dr. Deras with past medical history significant for heart failure, COPD, chronic hypoxic respiratory failure on home O2 at 2 L nasal cannula and obstructive sleep apnea on BiPAP support at bedtime, diabetes mellitus type 2 with diabetic neuropathy, chronic diastolic heart failure, valvular heart disease, hypertension, hypothyroidism, GI bleed with anemia. Patient has had multiple admissions and multiple endoscopies for GIB and anemia. One completed on May 2020 revealed proximal small bowel angiodysplasia treated with coagulation therapy. Patient has also been treated at tertiary care centers. Patient was seen by Dr. Diallo in the office yesterday and was found to have a hemoglobin of 6.8 and patient was instructed to come into the hospital for evaluation. Patient complains of feeling weak, had some episodes of shortness of breath, abdominal pain across the upper area. No constipation or diarrhea. She states she is having black stool despite stopping iron. No fever or chills. No cough. After last admission, patient was to follow up with Dr. Reyes in the office. She states she has a call there and is waiting for an appointment. Patient presented to the [facility] emergency center for evaluation area and she was afebrile, heart rate 75, blood pressure 114/50, pulse ox 100% on room air. EKG was a sinus rhythm with no acute ST changes. WBC 14.4, hemoglobin 6.7, platelet count 434. Sodium 137, potassium 4.1, chloride 93, CO2 34, BUN 50 and creatinine 1.39. Blood sugar 164. Magnesium 2.5. Total bilirubin 0.5. Alkaline phosphatase 148. He was transfused 1 unit of packed RBCs, admitted to the oncology unit, GI consult and subsequently oncology consult for anemia added. 08/28: Repeat blood work reveals a globus 7.3, WBC 14.3, platelet count 336. Sodium 136, potassium 3.7, chloride 91, CO2 39, BUN 40 creatinine 1.17. Blood sugars have been elevated and patient will be started on glimepiride 2 mg every day. Patient denies having any abdominal pain. She states her appetite is okay. She is still having black stools. Patient has been seen by GI and u kaurrwent capsule endoscopy yesterday anticipate a report will be available later today. Patient has been afebrile, heart rate 72, blood pressure 101/55, pulse ox 95% on 3 L nasal cannula. Patient is also been seen by oncology 08/29: Capsule endoscopy found active bleeding and patient underwent EGD this morning the found to small nonbleeding duodenal angiectasia status post argon plasma coagulated. Stomach and esophageal normal. Diet can be advanced. CBC is ordered for tomorrow. She has been afebrile, heart rate 61, blood pressure 124/63, pulse ox 99% on 3 L. Hemoglobin is 6.8 a patient ordered for his fusion of 1 unit of packed RBCs. Anticipate the patient will be ready for discharge tomorrow. 08/30: Resting Comfortably Sitting up in a Chair. She Has Not Had Any Bloody Stools. Is Able to Tolerate Her Diet. hemiglobin 6.8 yesterday. She remains afebrile, heart rate 66, blood pressure 129/62, respirations 16 nonlabored, pulse ox 97% on 3 L high flow nasal cannula. 08/31: She was found sitting up resting comfortably in a chair crocheting. She has not had any bloody stools. She is tolerating her diet. Hemoglobin this morning 7.0. Patient remains afebrile and vital signs are within normal limits. Patient will be discharged home today and come to the office on Tuesday for repeat blood work. At that time we will look into getting her a portable oxygen tank. Discharge diagnosis 1. Acute on chronic GI bleed with acute blood loss anemia secondary to duodenal angiectasia status post argon plasma coagulated. 2. Diabetes mellitus type 2 with diabetic neuropathy, uncontrolled with hyperglycemia. 3. Diabetic neuropathy. 4. COPD without exacerbation. 5. Hypertension. 6. Chronic diastolic heart failure without exacerbation. 7. Hyperlipidemia. 8. Obstructive sleep apnea. 9. Restless leg syndrome. 10. Recurrent depression. Discharge disposition: Home with self-care. Impression and plan of care have been directed as dictated by the signing physician. Brandy Villatoro nurse practitioner acting as scribe for signing physician. Patient Condition at Discharge: Fair Plan - Discharge Summary Discharge Rx Participant: No New Discharge Prescriptions: Continue Spironolactone [Aldactone] 25 mg PO DAILY tab Isosorbide Mononitrate ER [Imdur] 30 mg PO DAILY tab.er.24h Atorvastatin [Lipitor] 40 mg PO DAILY tab Metoprolol Tartrate [Lopressor] 100 mg PO BID tab FLUoxetine HCL [PROzac] 20 mg PO DAILY cap rOPINIRole HCL [Requip] 2 mg PO BID tab methocarbamoL [Robaxin] 500 mg PO BID PRN tab PRN Reason: Muscle Spasm SILVER sulfADIAZINE CREAM [Silvadene Cream] 1 applic TOPICAL DAILY applic Montelukast [Singulair] 10 mg PO HS tab Budesonide-Formot 160-4.5 Mcg [Symbicort 160-4.5 Mcg Inhaler] 2 puff INHALATION RT-BID puff Levothyroxine Sodium [Synthroid] 125 mcg PO DAILY@0630 tab Pantoprazole Sodium [Protonix] 40 mg PO AC-BID #60 tablet. metOLazone [Zaroxolyn] 2.5 mg PO MoWeFr@0900 #30 tab Potassium Chloride ER [K-Dur 10] 10 meq PO BID #30 tab Sennosides-Docusate Sodium [Senokot-S] 1 tab PO BID PRN PRN Reason: Constipation Pregabalin [Lyrica] 200 mg PO BID Tiotropium 2.5 Mcg/Puff [Spiriva Respimat 2.5 Mcg] 2 puff INHALATION RT-DAILY sitaGLIPtin PHOSPHATE [Januvia] 100 mg PO DAILY Insulin Glargine,Hum.rec.anlog [Toujeo Solostar] 30 units SQ BID Ipratropium-Albuterol Nebulize [Duoneb 0.5 mg-3 mg/3 ml Soln] 3 ml INHALATION RT-QID PRN PRN Reason: Shortness Of Breath INSULIN ASPART (NovoLOG) [NovoLOG (formulary)] See Protocol SQ ACHS Furosemide [Lasix] 40 mg PO BID@0800,1400 Discharge Medication List Atorvastatin [Lipitor] 40 mg PO DAILY tab 08/03/20 [Rx] Budesonide-Formot 160-4.5 Mcg [Symbicort 160-4.5 Mcg Inhaler] 2 puff INHALATION RT-BID puff 08/03/20 [Rx] FLUoxetine HCL [PROzac] 20 mg PO DAILY cap 08/03/20 [Rx] Isosorbide Mononitrate ER [Imdur] 30 mg PO DAILY tab.er.24h 08/03/20 [Rx] Levothyroxine Sodium [Synthroid] 125 mcg PO DAILY@0630 tab 08/03/20 [Rx] Metoprolol Tartrate [Lopressor] 100 mg PO BID tab 08/03/20 [Rx] Montelukast [Singulair] 10 mg PO HS tab 08/03/20 [Rx] SILVER sulfADIAZINE CREAM [Silvadene Cream] 1 applic TOPICAL DAILY applic 08/03/20 [Rx] Spironolactone [Aldactone] 25 mg PO DAILY tab 08/03/20 [Rx] methocarbamoL [Robaxin] 500 mg PO BID PRN tab 08/03/20 [Rx] rOPINIRole HCL [Requip] 2 mg PO BID tab 08/03/20 [Rx] Pantoprazole Sodium [Protonix] 40 mg PO AC-BID #60 tablet.dr 08/08/20 [Rx] Potassium Chloride ER [K-Dur 10] 10 meq PO BID #30 tab 08/08/20 [Rx] metOLazone [Zaroxolyn] 2.5 mg PO MoWeFr@0900 #30 tab 08/08/20 [Rx] Furosemide [Lasix] 40 mg PO BID@0800,1400 08/26/20 [History] INSULIN ASPART (NovoLOG) [NovoLOG (formulary)] See Protocol SQ ACHS 08/26/20 [History] Insulin Glargine,Hum.rec.anlog [Toujeo Solostar] 30 units SQ BID 08/26/20 [History] Ipratropium-Albuterol Nebulize [Duoneb 0.5 mg-3 mg/3 ml Soln] 3 ml INHALATION RT-QID PRN 08/26/20 [History] Pregabalin [Lyrica] 200 mg PO BID 08/26/20 [History] Sennosides-Docusate Sodium [Senokot-S] 1 tab PO BID PRN 08/26/20 [History] Tiotropium 2.5 Mcg/Puff [Spiriva Respimat 2.5 Mcg] 2 puff INHALATION RT-DAILY 08/26/20 [History] sitaGLIPtin PHOSPHATE [Januvia] 100 mg PO DAILY 08/26/20 [History] Follow up Appointment(s)/Referral(s): Yoel Deras MD [Primary Care Provider] - 1-2 days Activity/Diet/Wound Care/Special Instructions: Go to the office for repeat blood count on tuesday Continue with home care Discharge Disposition: HOME SELF-CARE
== END 2020-08-31 14:20 | disposition home or self-care (01) | DRG 378 ==
LOC: EC 12:19 → 5NMEDONC 14:30
PROVIDERS: ADMIT Family Medicine; ATTEND Family Medicine
PROC: 30233N1 Transfusion of Nonautologous Red Blood Cells into Peripheral Vein, Percutaneous Approach (ICD-10-PCS; 2020-08-26)
PROC: 0W3P8ZZ Control Bleeding in Gastrointestinal Tract, Via Natural or Artificial Opening Endoscopic (ICD-10-PCS; 2020-08-26)
PROC: 0DJ07ZZ Inspection of Upper Intestinal Tract, Via Natural or Artificial Opening (ICD-10-PCS; principal; 2020-08-27 10:45)
DX: K31.811 Angiodysplasia of stomach and duodenum with bleeding (principal); D62 Acute posthemorrhagic anemia; F33.9 Major depressive disorder, recurrent, unspecified; I50.32 Chronic diastolic (congestive) heart failure; J96.11 Chronic respiratory failure with hypoxia; Z68.42 Body mass index [BMI] 45.0-49.9, adult; E03.9 Hypothyroidism, unspecified; E11.40 Type 2 diabetes mellitus with diabetic neuropathy, unspecified; E11.65 Type 2 diabetes mellitus with hyperglycemia; E78.00 Pure hypercholesterolemia, unspecified; E78.5 Hyperlipidemia, unspecified; G25.81 Restless legs syndrome; G47.33 Obstructive sleep apnea (adult) (pediatric); I25.2 Old myocardial infarction; J44.9 Chronic obstructive pulmonary disease, unspecified; Z99.81 Dependence on supplemental oxygen; Z87.01 Personal history of pneumonia (recurrent); Z20.822 Contact with and (suspected) exposure to COVID-19; Z98.49 Cataract extraction status, unspecified eye; Z96.1 Presence of intraocular lens; Z87.19 Personal history of other diseases of the digestive system; Z84.1 Family history of disorders of kidney and ureter; I11.0 Hypertensive heart disease with heart failure; Z79.4 Long term (current) use of insulin; Z79.51 Long term (current) use of inhaled steroids; Z79.890 Hormone replacement therapy; Z79.899 Other long term (current) drug therapy; Z80.6 Family history of leukemia; Z82.49 Family history of ischemic heart disease and other diseases of the circulatory system; Z87.891 Personal history of nicotine dependence; Z90.710 Acquired absence of both cervix and uterus; Z90.49 Acquired absence of other specified parts of digestive tract; E66.9 Obesity, unspecified
CPT/HCPCS: 36415; 43270; 80048; 80053; 82607; 82728; 82746; 83010; 83540; 83550; 83615; 83735; 83921; 84484; 85025; 85027; 85045; 85610; 85730; 86850; 86900; 86901; 86920; 87635; 91110; 93005; 94640; 94760; 99285

== ENCOUNTER 2020-10-05 23:49 | Inpatient (IN) | payer MEDICARE, OTHER ==
--- NOTE | 2020-10-06 00:14 | ED ---
SOB HPI - General Chief Complaint: Shortness of Breath Stated Complaint: ALBINO Time Seen by Provider: 10/06/20 00:00 Source: patient Mode of arrival: wheelchair Limitations: no limitations - History of Present Illness Initial Comments: This patient is a 65-year-old woman who presents with complaint that she is feeling short of breath. The patient relates that she has had this previously with anemia due to GI bleeding. She states that she has not noted any blood or dark tarry stools. The patient is denying any associated symptoms. No fever or chills, cough, chest pain. No change in urination or bowel movements. Patient states that she does have chronic leg edema though today seems relatively good by her standards. MD Complaint: shortness of breath Onset/Timin -: days(s) Severity scale (1-10): 0 Improves With: rest Worsens With: exertion Associated Symptoms: denies other symptoms Treatments Prior to Arrival: none - Related Data Home Oxygen Therapy: No Home Medications Medication Instructions Recorded Confirmed Furosemide [Lasix] 40 mg PO BID@0800,1400 08/26/20 08/26/20 INSULIN ASPART (NovoLOG) [NovoLOG See Protocol SQ ACHS 08/26/20 08/26/20 (formulary)] Insulin Glargine,Hum.rec.anlog 30 units SQ BID 08/26/20 08/26/20 [Touidalia Solostar] Ipratropium-Albuterol Nebulize 3 ml INHALATION RT-QID PRN 08/26/20 08/26/20 [Duoneb 0.5 mg-3 mg/3 ml Soln] Pregabalin [Lyrica] 200 mg PO BID 08/26/20 08/26/20 Sennosides-Docusate Sodium 1 tab PO BID PRN 08/26/20 08/26/20 [Senokot-S] Tiotropium 2.5 Mcg/Puff [Spiriva 2 puff INHALATION RT-DAILY 08/26/20 08/26/20 Respimat 2.5 Mcg] sitaGLIPtin PHOSPHATE [Januvia] 100 mg PO DAILY 08/26/20 08/26/20 Previous Rx's Medication Instructions Recorded Atorvastatin [Lipitor] 40 mg PO DAILY tab 08/03/20 Budesonide-Formot 160-4.5 Mcg 2 puff INHALATION RT-BID puff 08/03/20 [Symbicort 160-4.5 Mcg Inhaler] FLUoxetine HCL [PROzac] 20 mg PO DAILY cap 08/03/20 Isosorbide Mononitrate ER [Imdur] 30 mg PO DAILY tab.er.24h 08/03/20 Levothyroxine Sodium [Synthroid] 125 mcg PO DAILY@0630 tab 08/03/20 Metoprolol Tartrate [Lopressor] 100 mg PO BID tab 08/03/20 Montelukast [Singulair] 10 mg PO HS tab 08/03/20 SILVER sulfADIAZINE CREAM 1 applic TOPICAL DAILY applic 08/03/20 [Silvadene Cream] Spironolactone [Aldactone] 25 mg PO DAILY tab 08/03/20 methocarbamoL [Robaxin] 500 mg PO BID PRN tab 08/03/20 rOPINIRole HCL [Requip] 2 mg PO BID tab 08/03/20 Pantoprazole Sodium [Protonix] 40 mg PO AC-BID #60 tablet.dr 08/08/20 Potassium Chloride ER [K-Dur 10] 10 meq PO BID #30 tab 08/08/20 metOLazone [Zaroxolyn] 2.5 mg PO MoWeFr@0900 #30 tab 08/08/20 Allergies Allergy/AdvReac Type Severity Reaction Status Date / Time cisatracurium [From Nimbex] Allergy Rash/Hives Verified 10/05/20 23:56 Review of Systems ROS Statement: Those systems with pertinent positive or pertinent negative responses have been documented in the HPI. ROS Other: All systems not noted in ROS Statement are negative. Constitutional: Denies: fever, chills, weakness Respiratory: Reports: dyspnea. Denies: cough, wheezes Cardiovascular: Reports: edema. Denies: chest pain, palpitations, orthopnea, syncope Gastrointestinal: Denies: abdominal pain, vomiting, diarrhea, melena, hematochezia Genitourinary: Denies: dysuria, hematuria Musculoskeletal: Denies: back pain Skin: Denies: rash Neurological: Denies: headache, weakness, numbness Past Medical History Past Medical History: Heart Failure, COPD, Diabetes Mellitus, GI Bleed, Pneumon ia, Respiratory Disorder Additional Past Medical History / Comment(s): heart murmur, neuropathy, scope done Last Myocardial Infarction Date:: 2018 History of Any Multi-Drug Resistant Organisms: None Reported Date of last positivie culture/infection: 04/2019 MDRO Source:: URINE Past Surgical History: Section, Cholecystectomy, Heart Catheterization, Hysterectomy, Orthopedic Surgery Additional Past Surgical History / Comment(s): Gi cauterization 02/22/2020; heart cath 12/26/2019; cataracts removal, lens placement. FREQUENT BLOOD TRANFUSIONS Past Anesthesia/Blood Transfusion Reactions: Previous Problems w/ Anesthesia Additional Past Anesthesia/Blood Transfusion Reaction / Comment(s): ALLERGY TO CISATRACURIUM- FACE TURNED RED/SWOLLEN Past Psychological History: No Psychological Hx Reported Smoking Status: Never smoker Past Alcohol Use History: None Reported Past Drug Use History: None Reported - Past Family History Mother Family Medical History: Renal Disease Additional Family Medical History / Comment(s): Mother was on Hemodilaysis General Exam Limitations: no limitations General appearance: alert, in no apparent distress Head exam: Present: atraumatic, normocephalic Eye exam: Present: normal appearance. Absent: scleral icterus, conjunctival injection Neck exam: Present: normal inspection Respiratory exam: Present: rales (Bilateral bases). Absent: respiratory distress, wheezes, rhonchi, stridor, accessory muscle use, decreased breath sounds Cardiovascular Exam: Present: regular rate, normal rhythm, systolic murmur. Absent: diastolic murmur, rubs, gallop GI/Abdominal exam: Present: soft, other (Exam limited by habitus). Absent: distended, tenderness, guarding, rebound, rigid Extremities exam: Present: normal inspection, normal capillary refill, pedal edema. Absent: calf tenderness Back exam: Present: normal inspection. Absent: CVA tenderness (R), CVA tenderness (L) Neurological exam: Present: alert Skin exam: Present: warm, dry, intact, other (Chronic stasis changes bilateral lower extremities) Course Vital Signs 10/05/20 10/06/20 10/06/20 23:53 00:30 01:00 Temperature 97.5 F L Pulse Rate 71 64 Respiratory 20 15 Rate Blood Pressure 140/61 119/53 O2 Sat by Pulse 100 99 Oximetry 10/06/20 01:30 Temperature Pulse Rate 68 Respiratory 24 Rate Blood Pressure 115/59 O2 Sat by Pulse 99 Oximetry Medical Decision Making - Lab Data Result diagrams: 10/06/20 00:20 10/06/20 00:20 Lab Results 10/06/20 10/06/20 10/06/20 Range/Units 00:20 00:20 00:20 WBC 14.8 H (3.8-10.6) k/uL RBC 3.49 L (3.80-5.40) m/uL Hgb 8.2 L (11.4-16.0) gm/dL Hct 27.9 L (34.0-46.0) % MCV 80.0 (80.0-100.0) fL MCH 23.5 L (25.0-35.0) pg MCHC 29.4 L (31.0-37.0) g/dL RDW 19.2 H (11.5-15.5) % Plt Count 310 (150-450) k/uL MPV 7.5 Neutrophils % 78 % Lymphocytes % 10 % Monocytes % 7 % Eosinophils % 2 % Basophils % 1 % Neutrophils # 11.6 H (1.3-7.7) k/uL Lymphocytes # 1.5 (1.0-4.8) k/uL Monocytes # 1.0 (0-1.0) k/uL Eosinophils # 0.3 (0-0.7) k/uL Basophils # 0.1 (0-0.2) k/uL Hypochromasia Marked Poikilocytosis Slight Anisocytosis Slight Microcytosis Slight PT 9.6 (9.0-12.0) sec INR 0.9 (<1.2) APTT 23.6 (22.0-30.0) sec D-Dimer 0.89 H (<0.60) mg/L FEU Sodium 138 (137-145) mmol/L Potassium 4.2 (3.5-5.1) mmol/L Chloride 97 L (98-107) mmol/L Carbon Dioxide 35 H (22-30) mmol/L Anion Gap 6 mmol/L BUN 39 H (7-17) mg/dL Creatinine 1.34 H (0.52-1.04) mg/dL Est GFR (CKD-EPI)AfAm 48 (>60 ml/min/1.73 sqM) Est GFR (CKD-EPI)NonAf 41 (>60 ml/min/1.73 sqM) Glucose 207 H (74-99) mg/dL Plasma Lactic Acid Itz (0.7-2.0) mmol/L Calcium 8.7 (8.4-10.2) mg/dL Magnesium 2.2 (1.6-2.3) mg/dL Total Bilirubin 0.3 (0.2-1.3) mg/dL AST 24 (14-36) U/L ALT 16 (4-34) U/L Alkaline Phosphatase 160 H (38-126) U/L Troponin I (0.000-0.034) ng/mL NT-Pro-B Natriuret Pep pg/mL Total Protein 7.2 (6.3-8.2) g/dL Albumin 3.9 (3.5-5.0) g/dL Coronavirus (PCR) (Not Detectd) 10/06/20 10/06/20 10/06/20 Range/Units 00:20 00:20 00:22 WBC (3.8-10.6) k/uL RBC (3.80-5.40) m/uL Hgb (11.4-16.0) gm/dL Hct (34.0-46.0) % MCV (80.0-100.0) fL MCH (25.0-35.0) pg MCHC (31.0-37.0) g/dL RDW (11.5-15.5) % Plt Count (150-450) k/uL MPV Neutrophils % % Lymphocytes % % Monocytes % % Eosinophils % % Basophils % % Neutrophils # (1.3-7.7) k/uL Lymphocytes # (1.0-4.8) k/uL Monocytes # (0-1.0) k/uL Eosinophils # (0-0.7) k/uL Basophils # (0-0.2) k/uL Hypochromasia Poikilocytosis Anisocytosis Microcytosis PT (9.0-12.0) sec INR (<1.2) APTT (22.0-30.0) sec D-Dimer (<0.60) mg/L FEU Sodium (137-145) mmol/L Potassium (3.5-5.1) mmol/L Chloride (98-107) mmol/L Carbon Dioxide (22-30) mmol/L Anion Gap mmol/L BUN (7-17) mg/dL Creatinine (0.52-1.04) mg/dL Est GFR (CKD-EPI)AfAm (>60 ml/min/1.73 sqM) Est GFR (CKD-EPI)NonAf (>60 ml/min/1.73 sqM) Glucose (74-99) mg/dL Plasma Lactic Acid Itz 1.0 (0.7-2.0) mmol/L Calcium (8.4-10.2) mg/dL Magnesium (1.6-2.3) mg/dL Total Bilirubin (0.2-1.3) mg/dL AST (14-36) U/L ALT (4-34) U/L Alkaline Phosphatase (38-126) U/L Troponin I <0.012 (0.000-0.034) ng/mL NT-Pro-B Natriuret Pep 2570 pg/mL Total Protein (6.3-8.2) g/dL Albumin (3.5-5.0) g/dL Coronavirus (PCR) (Not Detectd) 10/06/20 Range/Units 01:16 WBC (3.8-10.6) k/uL RBC (3.80-5.40) m/uL Hgb (11.4-16.0) gm/dL Hct (34.0-46.0) % MCV (80.0-100.0) fL MCH (25.0-35.0) pg MCHC (31.0-37.0) g/dL RDW (11.5-15.5) % Plt Count (150-450) k/uL MPV Neutrophils % % Lymphocytes % % Monocytes % % Eosinophils % % Basophils % % Neutrophils # (1.3-7.7) k/uL Lymphocytes # (1.0-4.8) k/uL Monocytes # (0-1.0) k/uL Eosinophils # (0-0.7) k/uL Basophils # (0-0.2) k/uL Hypochromasia Poikilocytosis Anisocytosis Microcytosis PT (9.0-12.0) sec INR (<1.2) APTT (22.0-30.0) sec D-Dimer (<0.60) mg/L FEU Sodium (137-145) mmol/L Potassium (3.5-5.1) mmol/L Chloride (98-107) mmol/L Carbon Dioxide (22-30) mmol/L Anion Gap mmol/L BUN (7-17) mg/dL Creatinine (0.52-1.04) mg/dL Est GFR (CKD-EPI)AfAm (>60 ml/min/1.73 sqM) Est GFR (CKD-EPI)NonAf (>60 ml/min/1.73 sqM) Glucose (74-99) mg/dL Plasma Lactic Acid Itz (0.7-2.0) mmol/L Calcium (8.4-10.2) mg/dL Magnesium (1.6-2.3) mg/dL Total Bilirubin (0.2-1.3) mg/dL AST (14-36) U/L ALT (4-34) U/L Alkaline Phosphatase (38-126) U/L Troponin I (0.000-0.034) ng/mL NT-Pro-B Natriuret Pep pg/mL Total Protein (6.3-8.2) g/dL Albumin (3.5-5.0) g/dL Coronavirus (PCR) Not Detected (Not Detectd) - EKG Data -: EKG Interpreted by Me EKG shows normal: sinus rhythm, axis (Normal), intervals (Normal), QRS complexes (Incomplete right bundle branch block), ST-T waves (Normal) Rate: normal (Rate 75 bpm) Disposition Clinical Impression: Congestive heart failure, Anemia Disposition: ADMITTED IP TO THIS [facility] Condition: Fair Is patient prescribed a controlled substance at d/c from ED?: No Referrals: Yoel Deras MD [Primary Care Provider] - 1-2 days
[2020-10-06 00:43] LABS: Anisocytosis Slight; Basophils # (A) 0.1 k/uL (0-0.2); Basophils % (A) 1 %; Eosinophils # (A) 0.3 k/uL (0-0.7); Eosinophils % (A) 2 %; HCT 27.9 % (34.0-46.0); HGB 8.2 gm/dL (11.4-16.0); Hypochromasia Marked; Lymphocytes # (A) 1.5 k/uL (1.0-4.8); Lymphocytes % (A) 10 %; MCH 23.5 pg (25.0-35.0); MCHC 29.4 g/dL (31.0-37.0); Mean Platelet Volume 7.5; Microcytosis Slight; Monocytes % (A) 7 %; Neutrophils # (A) 11.6 k/uL (1.3-7.7); Neutrophils % (A) 78 %; Platelet Count 310 k/uL (150-450); Poikilocytosis Slight; RBC 3.49 m/uL (3.80-5.40); RDW 19.2 % (11.5-15.5); WBC 14.8 k/uL (3.8-10.6)
[2020-10-06 00:53] LABS: Albumin 3.9 g/dL (3.5-5.0); Calcium 8.7 mg/dL (8.4-10.2); Magnesium 2.2 mg/dL (1.6-2.3); Potassium 4.2 mmol/L (3.5-5.1); Total Bilirubin 0.3 mg/dL (0.2-1.3); Total Protein 7.2 g/dL (6.3-8.2)
--- NOTE | 2020-10-06 00:58 | XR ---
EXAM: XR Chest, 2 Views CLINICAL HISTORY: ITS.REASON XR Reason: difficulty breathing TECHNIQUE: Frontal and lateral views of the chest. COMPARISON: September 18, 2020 FINDINGS: Lungs: Vascular and interstitial markings are prominent in the mid to lower lungs bilaterally, similar to previous. Consider CHF versus interstitial infiltrate. Pleural space: Unremarkable. No pneumothorax. Heart: The cardiac silhouette is moderately enlarged. Mediastinum: Unremarkable. Bones/joints: Moderate osteophytosis in mid to lower thoracic spine. Vasculature: Mildly calcified but nondilated aortic arch. Upper abdomen: There is no pneumoperitoneum under the diaphragm. IMPRESSION: Vascular and interstitial markings are prominent in the mid to lower lungs bilaterally, similar to previous. Consider CHF versus interstitial infiltrate.
[2020-10-06 01:05] LABS: INR 0.9 (<1.2); Partial Thromboplastin Time 23.6 sec (22.0-30.0); Prothrombin Time 9.6 sec (9.0-12.0)
[2020-10-06 01:07] LABS: D-Dimer 0.89 mg/L FEU (<0.60)
[2020-10-06] MEDS ORDERED: FUROSEMIDE 10 MG/ML 4 ML VIAL IV STA (01:57)
[2020-10-06] MEDS: FUROSEMIDE 10 MG/ML 4 ML VIAL IV SCH ×2 (03:31→13:56)
[2020-10-06] MEDS: HEPARIN SODIUM,PORCINE/PF 5,000 UNIT/0.5 ML SYRINGE SQ SCH ×2 (08:33→23:42)
[2020-10-06 09:09] LABS: Glucose,Whole Blood 251 mg/dL (75-99)
[2020-10-06] MEDS ORDERED: IOPAMIDOL CONTRAST (ORAL USE) VIAL PO PRN (09:56)
--- NOTE | 2020-10-06 11:47 | CONS ---
CONSULTATION Mrs. Null is 65-year-old female who presented to the emergency room with symptoms of progressive dyspnea. The patient has been having these symptoms for the last few days, worse recently, came into the emergency room and cardiology consultation was requested. She has a history of chronic obstructive lung disease, prior history of anemia, has been seen by Dr. Samayoa in that regard. She has underwent an echocardiogram in May of 2020 and at that time she had a preserved systolic function with moderate aortic stenosis and a mean gradient of 24 mmHg with mild aortic regurgitation and mild mitral regurgitation. The patient is somewhat limited in her physical activity, but she has been complaining of the worsening dyspnea at this time, coughing, but no fever. She denies any dizziness or palpitation. She denies any syncope. She has no chest tightness. She has no PND. Her coronary risk factors are remarkable for the history of hypertension. She is nonsmoker. She is diabetic and hyperlipidemic. MEDICATION: Her medications at home include Lipitor 40 mg daily, Prozac, Lasix 40 mg twice a day, insulin, isosorbide mononitrate 30 mg daily, metoprolol tartrate 100 mg twice a day, Singulair, Protonix, Lyrica, spironolactone 25 mg daily, metolazone 2.5 mg 3 times a week, Januvia, Requip and Robaxin. REVIEW OF SYSTEMS: RESPIRATORY SYSTEM: She had dyspnea on exertion, history of chronic obstructive lung disease, has been followed by Dr. Gomes in the past. No recent smoking. GI SYSTEM: No recent GI bleeding. No peptic ulcer disease. She has anemia followed by Dr. Samayoa who had no active bleeding at this time. SYSTEM: No dysuria or hematuria. NERVOUS SYSTEM: No stroke or seizure. PHYSICAL EXAMINATION: She is a 65-year-old female, alert, oriented, in no apparent distress, obese. Blood pressure 138/60 with the heart rate in the 60s. HEAD: Normocephalic. EYES: Sclerae anicteric. NECK: No bruit. LUNGS: With bilateral crackles, no wheezes. HEART: Regular rate and rhythm. S1, S2. No S3 with systolic murmur 3/6 mid peaking. No diastolic murmur. No rub. ABDOMEN: Soft, obese, nontender. EXTREMITIES: +1 edema bilaterally. LAB DATA: Lab data revealed troponin less than 0.012. NT proBNP of 2570, which is lower than it was in June of this year. Her BUN and creatinine are 39 and 1.34, which has worsened. Potassium 4.2. Hemoglobin of 8.2. Her MCV is 80, MCH is 23.5. She is coronavirus negative. Her EKG revealed a sinus mechanism, normal axis and intervals with nonspecific ST-T wave changes. Her chest x-ray revealed possible interstitial infiltrate versus possible CHF. IMPRESSION: 1. Symptoms of progressive dyspnea probably a combination of chronic obstructive pulmonary disease and could have an element of congestive heart failure with preserved systolic function. 2. History of hypertension. 3. History of chronic obstructive lung disease. 4. Obesity. 5. Chronic anemia. 6. Renal failure. RECOMMENDATION: From the cardiac standpoint, I will re-initiate the treatment with her beta ira and her lipid as well as her nitrate. She has been started on IV diuretics and will continue that for 24 hours. Subsequently, I expect we should be able to stop it while she is undergoing a workup for her GI system. Depending on her renal function and her progress, further recommendation will be made. Thank you for this consult. We will follow with you. MMODL / IJN: [id number] /
--- NOTE | 2020-10-06 13:01 | CT ---
EXAMINATION TYPE: CT abdomen pelvis wo con DATE OF EXAM: 10/06/2020 COMPARISON: 06/17/2020 HISTORY: 65-year-old female abdominal distention. CT DLP: 1638 mGycm. Automated exposure control for dose reduction was used. TECHNIQUE: Contiguous axial scanning of the abdomen and pelvis without IV contrast. Coronal and sagit balwinder reconstructions performed. FINDINGS: Heart borderline enlarged. Dense mitral annular calcifications. No pericardial effusion. Some mosaic attenuation lower lungs likely patchy areas of atelectasis. Tiny hiatal hernia. Liver enlarged measuring 19.6 cm. Otherwise, noncontrast appearance of the liver, left adrenal gland, spleen with inferior splenule, left kidney, and pancreas show no gross abnormal mobility. Stable 8 mm cortical hypodensity posterior upper pole right kidney too small for accurate CT characte rization, probable small cortical cyst. 1.1 cm right adrenal nodule is indeterminate, stable from 06/17/2020. No dilated small bowel, free fluid, free air. Some prominent left periaortic retroperitoneal nodes measure up to 9 mm, unchanged, likely reactive/p ost inflammatory. Right common iliac chain lymph node at 1.3 cm versus 1.1 cm, previously. Moderate stool burden. Generalized colonic diverticulosis. Normal appendix. Oral contrast progressed to the hepatic flexure. A very chronic inflammatory change. Moderate atherosclerotic calcifications abdominal aorta and iliac arteries. Bladder is urine distended. Multiple surgical clips scattered throughout the pelvis. Pelvic fluids. U terus surgically absent. Both ovaries are visualized. No abnormal fluid collection in the pelvis. Pro minent left femoral chain lymph nodes in the upper left thigh measure up to 1.5 cm, coronal image 60, versus 1.3 cm, previously. Bones: Mild degenerative change of both hips. Mild degenerative disc disease throughout. Facet arthro juana lower lumbar spine. IMPRESSION: 1. Hepatomegaly at 19.6 cm. Correlate with LFTs and any risk factors for underlying hepatocellular di sease. 2. A 1.3 cm right common iliac chain lymph node is mildly enlarged, slightly larger from previous whe re it measured 1.1 cm. Left inguinal/femoral chain lymph nodes are borderline enlarged now at 1.5 cm versus 1.3 cm, previously. Findings probably reactive/post inflammatory. Recommend 6 month follow-up CT to ensure stability/resolution. 3. A 1.1 cm indeterminate right adrenal nodule can also be reassessed at that time (stable for 4 christine hs, likely an adrenal adenoma). 4. Moderate stool bordering and generalized colonic diverticulosis. Tiny hiatal hernia.
[2020-10-06] MEDS ORDERED: methocarbamoL 500 MG TAB PO PRN (13:17)
[2020-10-06] MEDS ORDERED: SENNOSIDES-DOCUSATE SODIUM 1 EACH TAB PO PRN (13:17)
--- NOTE | 2020-10-06 13:33 | P.HPIM ---
History of Present Illness H&P Date: 10/06/20 HISTORY OF PRESENT ILLNESS This is a 65-year-old female patient of Dr. Deras with past medical history significant for heart failure, COPD, chronic hypoxic respiratory failure on home O2 at 2 L nasal cannula and obstructive sleep apnea on BiPAP support at bedtime, diabetes mellitus type 2 with diabetic neuropathy, chronic diastolic heart failure, valvular heart disease, hypertension, hypothyroidism, GI bleed with anemia. Patient has had multiple admissions and multiple endoscopies for GIB and anemia. On August 29, capsule endoscopy found active bleeding and patient unde rwent EGD found to small nonbleeding duodenal angiectasia status post argon plasma coagulated. The bleeding seems to be stable since that time. They, patient presented to the hospital due to chest pain in the midsternal area across her chest seems to be worse after she eats it was hurting after she had breakfast this morning. She complains of shortness of breath with exertion that is worse than the last time she was admitted. She states her stools have been normal. She does complain of abdominal distention and fullness after eating. Patient presented to the [facility] emergency center for evaluation. Patient was found to be afebrile, heart rate 71, blood pressure 140/61, pulse ox 100% on oxygen. WBC 14.8, hemoglobin 8.2 which is stable for this patient. Platelet count is 310. Sodium 138, potassium 4.2, chloride 97, CO2 35, BUN 39 and creatinine 1.34 which is also patient's baseline. Blood sugar 207. D-dimer 0.89. Alkaline phosphatase 160. Troponin negative. Pro- BNP 2570. Lactic acid 1.0. Coronavirus PCR not detected. EKG sinus rhythm with nonspecific ST-T wave changes. Chest x-ray reveals vascular and interstitial markings prominent in the mid to lower lungs bilaterally similar to previous. Consider heart failure versus interstitial infiltrate. CAT scan of the abdomen and pelvis without contrast revealed hepatomegaly and 19.6 cm. Correlate with LFTs and risk factors for underlying hepatocellular disease. 1.3 cm right common iliac chain lymph node is enlarged. Left inguinal femoral chain lymph nodes are borderline enlarged. Findings probably reactive postinflammatory. 1.1 cm indeterminate right adrenal nodule. Moderate stool burden and generalized colonic diverticulosis. Tiny hiatal hernia. Consult was admitted for cardiology and patient has been seen by Dr. Yang for progressive dyspnea secondary to combination of COPD and element of heart failure with preserved systolic function. Plan to continue IV diuretics for 24 hours. REVIEW OF SYSTEMS Constitutional: No fever, no chills, no night sweats. No weight change. Reports weakness and fatigue no lethargy. No daytime sleepiness. EENT: No headache. No blurred vision or double vision, no loss of vision. No loss of Hearing, no ringing in the ears, no dizziness. No nasal drainage or congestion. No epistaxis. No sore throat. Lungs: Reports shortness of breath, reports cough, no sputum production. No wheezing. Cardiovascular: No chest pain, no lower extremity edema. No palpitations. No paroxysmal nocturnal dyspnea. No orthopnea. No lightheadedness or dizziness. No syncopal episodes. Abdominal: Reports upper abdominal pain. No nausea, vomiting. no diarrhea. No constipation. No bloody reports tarry stools. Denies bright red bleeding. no loss of appetite. Genitourinary: No dysuria, increased frequency, urgency. No urinary retention. Musculoskeletal: No myalgias. No muscle weakness, no gait dysfunction, no frequent falls. No back pain. No neck pain. Integumentary: No wounds, no lesions. No rash or pruritus. No unusual bruising. No change in hair or nails. Neurologic: No aphasia. No facial droop. No change in mentation. No head injury. No headache. No paralysis. No paresthesia. Psychiatric: No depression. No anxiety. No mood swings. Endocrine: Reported reports abdominal bloating, reports fullness after eating. abnormal blood sugars. No weight change. No excessive sweating or thirst. SOCIAL HISTORY Patient was a smoker one pack per day for greater than 40 years and quit at age 62. She denies any alcohol use, marijuana or illicit drug use. She is and lives at home with her . She has a nebulizer, oxygen at 3 L nasal cannula and BiPAP at night. FAMILY HISTORY Mother at age 60 from kidney failure. Father at age 84 from leukemia. Patient has 4 sisters and one has passed from coronary artery disease. Other sisters and 2 brothers have no major medical problems. Patient has 3 children with no major medical problems. PHYSICAL EXAMINATION Gen: This is a 65-year-old female. She is resting and recliner and appears to be comfortable at rest. HEENT: Head is atraumatic, normocephalic. Pupils equal, round. Sclerae is a nicteric. Conjunctiva pale. NECK: Supple. No JVD. No lymphadenopathy. No thyromegaly. LUNGS: Clear to auscultation. No wheezes or rhonchi. No intercostal retractions. HEART: Regular rate and rhythm. Systolic murmur. ABDOMEN: Soft. Bowel sounds are present. No masses. No tenderness. EXTREMITIES: No pedal edema. No calf tenderness. Dorsalis pedis +2 bilaterally. NEUROLOGICAL: Patient is awake, alert and oriented x3. Cranial nerves 2 through 12 are grossly intact. ASSESSMENT AND PLAN 1. Chronic hypoxic respiratory failure with progressive dyspnea secondary to COPD and acute on chronic diastolic heart failure. Patient started on , metolazone 2.5 mg on Tuesday. 2. Upper abdominal/lower chest pain with abdominal bloating and early satiety, rule out gastroparesis. 3. 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 Continue Protonix 40 mg oral twice daily. 4. Diabetes mellitus type 2 with diabetic neuropathy uncontrolled with hyperglycemia. Continue Levemir 30 units twice daily and NovoLog scale before meals and at bedtime. Continue Januvia 100 mg daily. 5. Diabetic neuropathy. Continue Lyrica 200 milligrams twice daily. 6. COPD without exacerbation. Continue DuoNeb treatment 4 times daily as needed, Symbicort 1604 0.5 g twice daily, Singulair 10 mg at bedtime. 7. Hypertension. Continue Lasix, Lopressor 100 mg twice daily. 8. Hyperlipidemia. Continue Lipitor 40 mg daily. 9. Obstructive sleep apnea. Continue BiPAP at night. 10. Hypothyroidism. Continue levothyroxine 125 g daily. Restless leg syndrome. Continue Requip 2 mg twice daily. 11. Recurrent depression. Continue Prozac 20 mg daily. 12. GI prophylaxis. Protonix twice daily. 13. DVT prophylaxis. Heparin subcu every 12 hours. Admit for minimum of 2 nights day. DISCHARGE PLAN Home Impression and plan of care have been directed as dictated by the signing physician. Clarice Colón nurse practitioner acting as scribe for signing physician. Past Medical History Past Medical History: Heart Failure, COPD, Diabetes Mellitus, GI Bleed, Pneumonia, Respiratory Disorder Additional Past Medical History / Comment(s): heart murmur, neuropathy, scope done Last Myocardial Infarction Date:: 2018 History of Any Multi-Drug Resistant Organisms: None Reported Date of last positivie culture/infection: 04/2019 MDRO Source:: URINE Past Surgical History: Section, Cholecystectomy, Heart Catheterization, Hysterectomy, Orthopedic Surgery Additional Past Surgical History / Comment(s): Gi cauterization 02/22/2020; heart cath 12/26/2019; cataracts removal, lens placement. FREQUENT BLOOD TRANFUSIONS Past Anesthesia/Blood Transfusion Reactions: Previous Problems w/ Anesthesia Additional Past Anesthesia/Blood Transfusion Reaction / Comment(s): ALLERGY TO CISATRACURIUM- FACE TURNED RED/SWOLLEN Past Psychological History: No Psychological Hx Reported Smoking Status: Never smoker Past Alcohol Use History: None Reported Past Drug Use History: None Reported - Past Family History Mother Family Medical History: Renal Disease Additional Family Medical History / Comment(s): Mother was on Hemodilaysis Medications and Allergies Home Medications Medication Instructions Recorded Confirmed Type Atorvastatin [Lipitor] 40 mg PO DAILY tab 08/03/20 10/06/20 Rx Budesonide-Formot 160-4.5 Mcg 2 puff INHALATION RT-BID puff 08/03/20 10/06/20 Rx [Symbicort 160-4.5 Mcg Inhaler] FLUoxetine HCL [PROzac] 20 mg PO DAILY cap 08/03/20 10/06/20 Rx Isosorbide Mononitrate ER [Imdur] 30 mg PO DAILY tab.er.24h 08/03/20 10/06/20 Rx Levothyroxine Sodium [Synthroid] 125 mcg PO DAILY@0630 tab 08/03/20 10/06/20 Rx Metoprolol Tartrate [Lopressor] 100 mg PO BID tab 08/03/20 10/06/20 Rx Montelukast [Singulair] 10 mg PO HS tab 08/03/20 10/06/20 Rx SILVER sulfADIAZINE CREAM 1 applic TOPICAL DAILY applic 08/03/20 10/06/20 Rx [Silvadene Cream] Spironolactone [Aldactone] 25 mg PO DAILY tab 08/03/20 10/06/20 Rx methocarbamoL [Robaxin] 500 mg PO BID PRN tab 08/03/20 10/06/20 Rx rOPINIRole HCL [Requip] 2 mg PO BID tab 08/03/20 10/06/20 Rx Pantoprazole Sodium [Protonix] 40 mg PO AC-BID #60 tablet.dr 08/08/20 10/06/20 Rx Potassium Chloride ER [K-Dur 10] 10 meq PO BID #30 tab 08/08/20 10/06/20 Rx metOLazone [Zaroxolyn] 2.5 mg PO MoWeFr@0900 #30 tab 08/08/20 10/06/20 Rx Furosemide [Lasix] 40 mg PO BID@0800,1400 08/26/20 10/06/20 History INSULIN ASPART (NovoLOG) [NovoLOG See Protocol SQ ACHS 08/26/20 10/06/20 History (formulary)] Insulin Glargine,Hum.rec.anlog 30 units SQ BID 08/26/20 10/06/20 History [Toujeo Solostar] Ipratropium-Albuterol Nebulize 3 ml INHALATION RT-QID PRN 08/26/20 10/06/20 History [Duoneb 0.5 mg-3 mg/3 ml Soln] Pregabalin [Lyrica] 200 mg PO BID 08/26/20 10/06/20 History Sennosides-Docusate Sodium 1 tab PO BID PRN 08/26/20 10/06/20 History [Senokot-S] Tiotropium 2.5 Mcg/Puff [Spiriva 2 puff INHALATION RT-DAILY 08/26/20 10/06/20 History Respimat 2.5 Mcg] sitaGLIPtin PHOSPHATE [Januvia] 100 mg PO DAILY 08/26/20 10/06/20 History Allergies Allergy/AdvReac Type Severity Reaction Status Date / Time cisatracurium [From Nimbex] Allergy Rash/Hives Verified 10/06/20 08:26 Physical Exam Vitals: Vital Signs Temp Pulse Resp BP Pulse Ox 10/06/20 08:07 97.6 F 61 18 138/63 98 10/06/20 06:21 63 16 135/64 98 10/06/20 02:30 69 22 135/63 95 10/06/20 02:00 66 16 131/66 97 10/06/20 01:30 68 24 115/59 99 10/06/20 01:00 64 15 99 10/06/20 00:30 119/53 10/05/20 23:53 97.5 F L 71 20 140/61 100 Intake and Output 10/05/20 10/06/20 10/06/20 22:59 06:59 14:59 Other: Weight 112.037 kg Results CBC & Chem 7: 10/06/20 00:20 10/06/20 00:20 Labs: Abnormal Lab Results - Last 24 Hours (Table) 10/06/20 10/06/20 10/06/20 Range/Units 00:20 00:20 00:20 WBC 14.8 H (3.8-10.6) k/uL RBC 3.49 L (3.80-5.40) m/uL Hgb 8.2 L (11.4-16.0) gm/dL Hct 27.9 L (34.0-46.0) % MCH 23.5 L (25.0-35.0) pg MCHC 29.4 L (31.0-37.0) g/dL RDW 19.2 H (11.5-15.5) % Neutrophils # 11.6 H (1.3-7.7) k/uL D-Dimer 0.89 H (<0.60) mg/L FEU Chloride 97 L (98-107) mmol/L Carbon Dioxide 35 H (22-30) mmol/L BUN 39 H (7-17) mg/dL Creatinine 1.34 H (0.52-1.04) mg/dL Glucose 207 H (74-99) mg/dL POC Glucose (mg/dL) (75-99) mg/dL Alkaline Phosphatase 160 H (38-126) U/L 10/06/20 Range/Units 09:08 WBC (3.8-10.6) k/uL RBC (3.80-5.40) m/uL Hgb (11.4-16.0) gm/dL Hct (34.0-46.0) % MCH (25.0-35.0) pg MCHC (31.0-37.0) g/dL RDW (11.5-15.5) % Neutrophils # (1.3-7.7) k/uL D-Dimer (<0.60) mg/L FEU Chloride (98-107) mmol/L Carbon Dioxide (22-30) mmol/L BUN (7-17) mg/dL Creatinine (0.52-1.04) mg/dL Glucose (74-99) mg/dL POC Glucose (mg/dL) 251 H (75-99) mg/dL Alkaline Phosphatase (38-126) U/L
[2020-10-06] MEDS: FLUoxetine HCL 20 MG CAP PO SCH (13:56)
[2020-10-06] MEDS: SPIRONOLACTONE 25 MG TAB PO SCH (13:56)
[2020-10-06] MEDS: POTASSIUM CHLORIDE ER 10 MEQ TAB.ER.PRT PO SCH ×2 (13:56→22:15)
[2020-10-06] MEDS: PANTOPRAZOLE 40 MG TABLET PO SCH (16:34)
[2020-10-06 16:53] LABS: Glucose,Whole Blood 405 mg/dL (75-99)
[2020-10-06] MEDS: INSULIN ASPART (NovoLOG) 100 UNIT/ML VIAL SQ SCH ×2 (17:28→22:14)
[2020-10-06] MEDS: SYMBICORT 160-4.5 MCG INHALER INHALATION SCH (19:31)
[2020-10-06 22:05] LABS: Glucose,Whole Blood 290 mg/dL (75-99)
[2020-10-06] MEDS: METOPROLOL TARTRATE 50 MG TAB PO SCH ×2 (22:12→22:13)
[2020-10-06] MEDS: INSULIN DETEMIR (LEVEMIR) 100 UNIT/ML SYR SQ SCH (22:13)
[2020-10-06] MEDS: PREGABALIN 100 MG CAP PO SCH (22:14)
[2020-10-06] MEDS: MONTELUKAST 10 MG TAB PO SCH (22:14)
[2020-10-07] MEDS: FUROSEMIDE 10 MG/ML 4 ML VIAL IV SCH ×3 (02:22→21:18)
[2020-10-07 06:28] LABS: Glucose,Whole Blood 204 mg/dL (75-99)
[2020-10-07] MEDS: INSULIN ASPART (NovoLOG) 100 UNIT/ML VIAL SQ SCH ×4 (06:37→21:22)
[2020-10-07] MEDS: Acetaminophen-Codeine 300-30mg TAB PO PRN ×3 (06:41→17:46)
[2020-10-07 07:18] LABS: Anisocytosis Slight; HCT 27.2 % (34.0-46.0); HGB 7.9 gm/dL (11.4-16.0); Hypochromasia Marked; MCH 23.2 pg (25.0-35.0); MCHC 29.1 g/dL (31.0-37.0); MCV 79.8 fL (80.0-100.0); Mean Platelet Volume 7.7; Microcytosis Slight; Platelet Count 319 k/uL (150-450); Poikilocytosis Slight; RDW 19.1 % (11.5-15.5)
[2020-10-07 07:42] LABS: Potassium 4.3 mmol/L (3.5-5.1)
--- NOTE | 2020-10-07 10:43 | P.PN ---
Subjective This is a pleasant 65 showed female past medical history significant for COPD, anemia, aortic stenosis, morbid obesity, diabetes mellitus, dyslipidemia and hypertension. She follows in the office with Dr. Samayoa. We are currently following secondary to exacerbation of heart failure and treating with IV diuretics. She is also undergoing GI evaluation. She is seen and examined sitting up in no acute distress. She continues to complain of shortness of breath and some epigastric pain. She has no chest pain, dizziness or palpitations. Blood pressure 101/46 heart rate 86 afebrile and maintaining oxygen saturation on nasal cannula. Laboratory data reviewed, WBC 11, hemoglobin 7.9, platelets 319, sodium 138, potassium 4.3 and creatinine 1.02. 24-hour urine output is 1350 mL. Most recent echocardiogram obtained May 2020 rev ealed preserved LV systolic function with moderate aortic stenosis, mean gradient of 24 mmHg, mild aortic regurgitation and mild mitral regurgitation. GENERAL: Well-appearing, well-nourished and in no acute distress. NECK: Supple without JVD or thyromegaly. LUNGS: Bibasilar rales, no wheezes or rhonchi. Respiration equal and unlabored. HEART: Regular rate and rhythm with systolic ejection murmur at the base, no rubs or gallops. S1 and S2 heard. EXTREMITIES: Normal range of motion, 1+ pitting edema bilaterally. No clubbing or cyanosis. Peripheral pulses intact. ASSESSMENT Acute on chronic diastolic heart failure COPD Leukocytosis Acute kidney injury, improved Chronic anemia with recent history of active bleeding noted on capsule study Hypertension Dyslipidemia Diabetes mellitus Aortic stenosis Morbid obesity, BMI 48 PLAN Continue current medical regimen with ongoing IV diuresis. Follow renal function and electrolytes in the morning. Further recommendations to follow based upon clinical course. Nurse Practitioner note has been reviewed, I agree with a documented findings and plan of care. Patient was seen and examined. Objective - Vital Signs Vital signs: Vital Signs Temp 97.8 F 10/07/20 02:00 Pulse 86 10/07/20 02:00 Resp 20 10/07/20 02:00 BP 101/46 10/07/20 02:00 Pulse Ox 98 10/07/20 02:00 Intake & Output 10/06/20 10/07/20 10/07/20 18:59 06:59 18:59 Output Total 1350 Balance -1350 Weight 112.037 kg 113 kg Output: Urine 1350 Other: Voiding Method Toilet # Bowel Movements 1 - Labs CBC & Chem 7: 10/07/20 06:32 10/07/20 06:32 Labs: Abnormal Lab Results - Last 24 Hours (Table) 10/06/20 10/06/20 10/07/20 Range/Units 16:51 22:03 06:27 WBC (3.8-10.6) k/uL RBC (3.80-5.40) m/uL Hgb (11.4-16.0) gm/dL Hct (34.0-46.0) % MCV (80.0-100.0) fL MCH (25.0-35.0) pg MCHC (31.0-37.0) g/dL RDW (11.5-15.5) % Chloride (98-107) mmol/L Carbon Dioxide (22-30) mmol/L BUN (7-17) mg/dL Glucose (74-99) mg/dL POC Glucose (mg/dL) 405 H 290 H 204 H (75-99) mg/dL 10/07/20 10/07/20 Range/Units 06:32 06:32 WBC 11.0 H (3.8-10.6) k/uL RBC 3.40 L (3.80-5.40) m/uL Hgb 7.9 L (11.4-16.0) gm/dL Hct 27.2 L (34.0-46.0) % MCV 79.8 L (80.0-100.0) fL MCH 23.2 L (25.0-35.0) pg MCHC 29.1 L (31.0-37.0) g/dL RDW 19.1 H (11.5-15.5) % Chloride 95 L (98-107) mmol/L Carbon Dioxide 37 H (22-30) mmol/L BUN 31 H (7-17) mg/dL Glucose 185 H (74-99) mg/dL POC Glucose (mg/dL) (75-99) mg/dL
[2020-10-07] MEDS: SYMBICORT 160-4.5 MCG INHALER INHALATION SCH ×2 (11:26→21:43)
[2020-10-07] MEDS: TIOTROPIUM 2.5 MCG INHALER INHALATION SCH (11:26)
[2020-10-07 12:02] LABS: Glucose,Whole Blood 225 mg/dL (75-99)
--- NOTE | 2020-10-07 12:27 | NM ---
EXAMINATION TYPE: NM gastric emptying static DATE OF EXAM: 10/07/2020 COMPARISON: Correlation CT 10/06/2020 HISTORY: 65-year-old female with gastroparesis Technique: Following administration of 2.0 mCi Tc 99m Sulfur Colloid with 4 ounces of egg beaters, 2 pieces of toast with butter & jam, 6 ounces of water, anterior and posterior projection images of the abdomen were obtained up to 4 hours. FINDINGS: Patient Emptying Values 1 Hour 68 % (10-70%) 2 Hours 92 % (> 40%) 3 Hours 99 % (> 70%) 4 Hours 99 % (> 90%) Gastroesophageal reflux: None IMPRESSION: 1. No scintigraphic evidence for gastroparesis. 2. At 1 hour, the degree of gastric emptying is 68% which is approaching abnormally rapid emptying (w hich would be> 70% emptying in the first hour).
[2020-10-07] MEDS: INSULIN DETEMIR (LEVEMIR) 100 UNIT/ML SYR SQ SCH ×2 (12:32→21:19)
[2020-10-07] MEDS: SPIRONOLACTONE 25 MG TAB PO SCH (12:35)
[2020-10-07] MEDS: LINAGLIPTIN 5 MG TABLET PO SCH (12:36)
[2020-10-07] MEDS: HEPARIN SODIUM,PORCINE/PF 5,000 UNIT/0.5 ML SYRINGE SQ SCH ×2 (12:36→21:19)
[2020-10-07] MEDS: METOPROLOL TARTRATE 50 MG TAB PO SCH ×2 (12:36→21:18)
[2020-10-07] MEDS: FLUoxetine HCL 20 MG CAP PO SCH (12:36)
[2020-10-07] MEDS: ISOSORBIDE MONONITRATE ER 30 MG TAB.ER.24H PO SCH (12:36)
[2020-10-07] MEDS: POTASSIUM CHLORIDE ER 10 MEQ TAB.ER.PRT PO SCH ×2 (12:37→21:17)
[2020-10-07] MEDS: PREGABALIN 100 MG CAP PO SCH ×2 (12:37→21:18)
[2020-10-07] MEDS: PANTOPRAZOLE 40 MG TABLET PO SCH ×2 (12:38→17:39)
[2020-10-07] MEDS: ATORVASTATIN 40 MG TAB PO SCH (12:38)
[2020-10-07] MEDS: LEVOTHYROXINE 125 MCG TAB PO SCH (13:08)
--- NOTE | 2020-10-07 15:26 | P.PN ---
Subjective Progress Note Date: 10/07/20 HISTORY OF PRESENT ILLNESS This is a 65-year-old female patient of Dr. Deras with past medical history significant for heart failure, COPD, chronic hypoxic respiratory failure on home O2 at 2 L nasal cannula and obstructive sleep apnea on BiPAP support at bedtime, diabetes mellitus type 2 with diabetic neuropathy, chronic diastolic heart failure, valvular heart disease, hypertension, hypothyroidism, GI bleed with anemia. Patient has had multiple admissions and multiple endoscopies for GIB and anemia. 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 The bleeding seems to be stable since that time. They, patient presented to the hospital due to chest pain in the midsternal area across her chest seems to be worse after she eats it was hurting after she had breakfast this morning. She complains of shortness of breath with exertion that is worse than the last time she was admitted. She states her stools have been normal. She does complain of abdominal distention and fullness after eating. Patient presented to the [facility] emergency center for evaluation. Patient was found to be afebrile, heart rate 71, blood pressure 140/61, pulse ox 100% on oxygen. WBC 14.8, hemoglobin 8.2 which is stable for this patient. Platelet count is 310. Sodium 138, potassium 4.2, chloride 97, CO2 35, BUN 39 and creatinine 1.34 which is also patient's baseline. Blood sugar 207. D-dimer 0.89. Alkaline phosphatase 160. Troponin negative. Pro- BNP 2570. Lactic acid 1.0. Coronavirus PCR not detected. EKG sinus rhythm with nonspecific ST-T wave changes. Chest x-ray reveals vascular and interstitial markings prominent in the mid to lower lungs bilaterally similar to previous. Consider heart failure versus interstitial infiltrate. CAT scan of the abdomen and pelvis without contrast revealed hepatomegaly and 19.6 cm. Correlate with LFTs and risk factors for underlying hepatocellular disease. 1.3 cm right common iliac chain lymph node is enlarged. Left inguinal femoral chain lymph nodes are borderline enlarged. Findings probably reactive postinflammatory. 1.1 cm indeterminate right adrenal nodule. Moderate stool burden and generalized colonic diverticulosis. Tiny hiatal hernia. Consult was admitted for cardiology and patient has been seen by Dr. Yang for progressive dyspnea secondary to combination of COPD and element of heart failure with preserved systolic function. Plan to continue IV diuretics for 24 hours. 10/07: She has been afebrile, heart rate 86, blood pressure 101/46, pulse ox 90% on 4 L nasal cannula. WBC 11, hemoglobin 7.9, platelet count 319. Sodium 138, potassium 4.3, chloride 95, CO2 37, BUN 31 and creatinine 1.02. Blood sugars have been running 185 up to 405 at its 4 PM yesterday. Patient missed her morning dose of Levemir yesterday. Patient underwent gastric emptying study which was negative for gastroparesis. Patient is continued on IV Lasix at 40 mg every 12 hours. REVIEW OF SYSTEMS Constitutional: No fever, no chills, no night sweats. No weight change. Reports weakness and fatigue no lethargy. No daytime sleepiness. EENT: No headache. No blurred vision or double vision, no loss of vision. No loss of Hearing, no ringing in the ears, no dizziness. No nasal drainage or congestion. No epistaxis. No sore throat. Lungs: Reports shortness of breath, reports cough, no sputum production. No wheezing. Cardiovascular: No chest pain, no lower extremity edema. No palpitations. No paroxysmal nocturnal dyspnea. No orthopnea. No lightheadedness or dizziness. No syncopal episodes. Abdominal: Reports upper abdominal pain. No nausea, vomiting. no diarrhea. No constipation. No bloody reports tarry stools. Denies bright red bleeding. no loss of appetite. Genitourinary: No dysuria, increased frequency, urgency. No urinary retention. Musculoskeletal: No myalgias. No muscle weakness, no gait dysfunction, no frequent falls. No back pain. No neck pain. Integumentary: No wounds, no lesions. No rash or pruritus. No unusual bruising. No change in hair or nails. Neurologic: No aphasia. No facial droop. No change in mentation. No head injury. No headache. No paralysis. No paresthesia. Psychiatric: No depression. No anxiety. No mood swings. Endocrine: Reported reports abdominal bloating, reports fullness after eating. abnormal blood sugars. No weight change. No excessive sweating or thirst. PHYSICAL EXAMINATION Gen: This is a 65-year-old female. She is resting and recliner and appears to be comfortable at rest. HEENT: Head is atraumatic, normocephalic. Pupils equal, round. Sclerae is anicteric. Conjunctiva pale. NECK: Supple. No JVD. No lymphadenopathy. No thyromegaly. LUNGS: Clear to auscultation. No wheezes or rhonchi. No intercostal retractions. HEART: Regular rate and rhythm. Systolic murmur. ABDOMEN: Soft. Bowel sounds are present. No masses. No tenderness. EXTREMITIES: No pedal edema. No calf tenderness. Dorsalis pedis +2 bilaterally. NEUROLOGICAL: Patient is awake, alert and oriented x3. Cranial nerves 2 through 12 are grossly intact. ASSESSMENT AND PLAN 1. Chronic hypoxic respiratory failure with progressive dyspnea secondary to COPD and acute on chronic diastolic heart failure. Continue Lasix 40 mg IV V every 12 hours, metolazone 2.5 mg on Tuesday. 2. Upper abdominal/lower chest pain with abdominal bloating and early satiety, ruled out gastroparesis. 3. History of GI bleed with acute blood loss anemia secondary to small nonbl eeding duodenal angiectasia status post argon plasma coagulated. Continue Protonix 40 mg oral twice daily. 4. Diabetes mellitus type 2 with diabetic neuropathy uncontrolled with hyperglycemia. Continue Levemir 30 units twice daily and NovoLog scale before meals and at bedtime. Continue Januvia 100 mg daily. 5. Diabetic neuropathy. Continue Lyrica 200 milligrams twice daily. 6. COPD without exacerbation. Continue DuoNeb treatment 4 times daily as needed, Symbicort 1604 0.5 g twice daily, Singulair 10 mg at bedtime. 7. Hypertension. Continue Lasix, Lopressor 100 mg twice daily. 8. Hyperlipidemia. Continue Lipitor 40 mg daily. 9. Obstructive sleep apnea. Continue BiPAP at night. 10. Hypothyroidism. Continue levothyroxine 125 g daily. Restless leg syndrome. Continue Requip 2 mg twice daily. 11. Recurrent depression. Continue Prozac 20 mg daily. 12. GI prophylaxis. Protonix twice daily. 13. DVT prophylaxis. Heparin subcu every 12 hours. DISCHARGE PLAN Home Impression and plan of care have been directed as dictated by the signing physician. Clarice Colón nurse practitioner acting as scribe for signing physician. Objective - Vital Signs Vital signs: Vital Signs Temp 97.8 F 10/07/20 02:00 Pulse 86 04/13/21 02:00 Resp 20 10/07/20 02:00 BP 101/46 10/07/20 02:00 Pulse Ox 98 10/07/20 02:00 Intake & Output 10/06/20 10/07/20 10/07/20 18:59 06:59 18:59 Output Total 1350 Balance -1350 Weight 112.037 kg 113 kg Output: Urine 1350 Other: Voiding Method Toilet # Bowel Movements 1 - Labs CBC & Chem 7: 10/07/20 06:32 10/07/20 06:32 Labs: Abnormal Lab Results - Last 24 Hours (Table) 10/06/20 10/06/20 10/06/20 Range/Units 09:08 16:51 22:03 WBC (3.8-10.6) k/uL RBC (3.80-5.40) m/uL Hgb (11.4-16.0) gm/dL Hct (34.0-46.0) % MCV (80.0-100.0) fL MCH (25.0-35.0) pg MCHC (31.0-37.0) g/dL RDW (11.5-15.5) % Chloride (98-107) mmol/L Carbon Dioxide (22-30) mmol/L BUN (7-17) mg/dL Glucose (74-99) mg/dL POC Glucose (mg/dL) 251 H 405 H 290 H (75-99) mg/dL 10/07/20 10/07/20 10/07/20 Range/Units 06:27 06:32 06:32 WBC 11.0 H (3.8-10.6) k/uL RBC 3.40 L (3.80-5.40) m/uL Hgb 7.9 L (11.4-16.0) gm/dL Hct 27.2 L (34.0-46.0) % MCV 79.8 L (80.0-100.0) fL MCH 23.2 L (25.0-35.0) pg MCHC 29.1 L (31.0-37.0) g/dL RDW 19.1 H (11.5-15.5) % Chloride 95 L (98-107) mmol/L Carbon Dioxide 37 H (22-30) mmol/L BUN 31 H (7-17) mg/dL Glucose 185 H (74-99) mg/dL POC Glucose (mg/dL) 204 H (75-99) mg/dL
[2020-10-07] MEDS ORDERED: SENNOSIDES-DOCUSATE SODIUM 1 EACH TAB PO SCH (16:45)
[2020-10-07 17:14] LABS: Glucose,Whole Blood 307 mg/dL (75-99)
[2020-10-07] MEDS: SENNOSIDES-DOCUSATE SODIUM 1 EACH TAB PO SCH (17:39)
[2020-10-07 20:19] LABS: Glucose,Whole Blood 251 mg/dL (75-99)
[2020-10-07] MEDS: MONTELUKAST 10 MG TAB PO SCH (21:18)
[2020-10-08] MEDS: Acetaminophen-Codeine 300-30mg TAB PO PRN ×3 (02:15→19:07)
[2020-10-08 06:31] LABS: Calcium 9.3 mg/dL (8.4-10.2); Potassium 4.9 mmol/L (3.5-5.1)
[2020-10-08 06:46] LABS: Glucose,Whole Blood 232 mg/dL (75-99)
[2020-10-08] MEDS: LEVOTHYROXINE 125 MCG TAB PO SCH (06:56)
[2020-10-08] MEDS: INSULIN ASPART (NovoLOG) 100 UNIT/ML VIAL SQ SCH ×5 (06:57→17:43)
[2020-10-08] MEDS: PANTOPRAZOLE 40 MG TABLET PO SCH ×2 (06:58→17:44)
[2020-10-08] MEDS: HEPARIN SODIUM,PORCINE/PF 5,000 UNIT/0.5 ML SYRINGE SQ SCH ×2 (07:51→20:34)
[2020-10-08] MEDS: INSULIN DETEMIR (LEVEMIR) 100 UNIT/ML SYR SQ SCH ×2 (07:52→21:04)
[2020-10-08] MEDS: METOPROLOL TARTRATE 50 MG TAB PO SCH ×2 (07:52→20:49)
[2020-10-08] MEDS: SPIRONOLACTONE 25 MG TAB PO SCH (07:52)
[2020-10-08] MEDS: metOLazone 2.5 MG TAB PO SCH (07:53)
[2020-10-08] MEDS: POTASSIUM CHLORIDE ER 10 MEQ TAB.ER.PRT PO SCH ×2 (07:53→20:33)
[2020-10-08] MEDS: LINAGLIPTIN 5 MG TABLET PO SCH (07:53)
[2020-10-08] MEDS: ISOSORBIDE MONONITRATE ER 30 MG TAB.ER.24H PO SCH (07:53)
[2020-10-08] MEDS: PREGABALIN 100 MG CAP PO SCH ×2 (07:53→20:34)
[2020-10-08] MEDS: ATORVASTATIN 40 MG TAB PO SCH (07:54)
[2020-10-08] MEDS: FLUoxetine HCL 20 MG CAP PO SCH (07:54)
[2020-10-08] MEDS: methylPREDNISolone SOD SUCCI 40 MG/ML 1 ML VIAL IV SCH ×2 (10:08→17:42)
[2020-10-08] MEDS: FUROSEMIDE 10 MG/ML 4 ML VIAL IV SCH ×2 (10:08→15:18)
[2020-10-08] MEDS: guaiFENesin 600 MG TABLET.ER PO SCH ×2 (10:09→20:34)
[2020-10-08] MEDS: FLUCONAZOLE 100 MG TAB PO SCH (10:09)
[2020-10-08] MEDS: TIOTROPIUM 2.5 MCG INHALER INHALATION SCH ×3 (10:23→11:27)
[2020-10-08] MEDS: IPRATROPIUM-ALBUTEROL 3 ML NEB INHALATION PRN (11:23)
[2020-10-08] MEDS: SYMBICORT 160-4.5 MCG INHALER INHALATION SCH (11:33)
[2020-10-08 12:28] LABS: Glucose,Whole Blood 365 mg/dL (75-99)
--- NOTE | 2020-10-08 12:32 | P.PN ---
Subjective Progress Note Date: 10/08/20 HISTORY OF PRESENT ILLNESS: This is a pleasant 65 year old female with a past medical history significant for COPD, anemia, aortic stenosis, morbid obesity, diabetes mellitu s, dyslipidemia and hypertension. She follows in the office with Dr. Samayoa. We are currently following secondary to exacerbation of heart failure and treating with IV diuretics. Most recent echocardiogram obtained May 2020 revealed preserved LV systolic function with moderate aortic stenosis, mean gradient of 24 mmHg, mild aortic regurgitation and mild mitral regurgitation. Patient examined this morning at the bedside. Patient states her breathing feels a little bit worse today. She states she was unable to lay flat overnight and states like her breathing was a little bit more labored. She is on 3 L nasal cannula with oxygen saturations greater than 92%. BUN 38. Creatinine 1.13. Patient's weight increased from 113 kg to 115.6 kg. PHYSICAL EXAM: VITAL SIGNS: Reviewed. GENERAL: Well-developed in no acute distress. NECK: Supple. No JVD or thyromegaly LUNGS: Respirations even and unlabored. Lungs diminished with bibasilar rales HEART: Regular rate and rhythm. S1 and S2 heard. Systolic murmur noted. EXTREMITIES: Normal range of motion. No clubbing or cyanosis. Peripheral pulses intact. 1+ bilateral extremity edema ASSESSMENT: Acute on chronic diastolic heart failure COPD Leukocytosis Acute kidney injury, improved Chronic anemia with recent history of active bleeding noted on capsule study Hypertension Dyslipidemia Diabetes mellitus Aortic stenosis Morbid obesity, BMI 48 PLAN: Continue current cardiac medications Increase Lasix to 40 mg every 8 hours Daily weights Accurate I&O Monitor kidney function Further recommendations pending patient course Nurse practitioner note has been reviewed by physician. Signing provider agrees with the documented findings, assessment, and plan of care. Objective - Vital Signs Vital signs: Vital Signs Temp 97.6 F 10/08/20 08:00 Pulse 72 10/08/20 11:40 Resp 18 10/08/20 08:00 BP 118/66 10/08/20 08:00 Pulse Ox 92 L 10/08/20 08:00 Intake & Output 10/07/20 10/08/20 10/08/20 18:59 06:59 18:59 Intake Total 240 480 Output Total 450 500 550 Balance -450 -260 -70 Weight 113 kg 115.6 kg Intake: Oral 240 480 Output: Urine 450 500 550 Other: Voiding Method Toilet Toilet Toilet - Labs CBC & Chem 7: 10/07/20 06:32 10/08/20 05:55 Labs: Abnormal Lab Results - Last 24 Hours (Table) 10/07/20 10/07/20 10/08/20 Range/Units 17:11 20:17 05:55 Chloride 96 L (98-107) mmol/L Carbon Dioxide 37 H (22-30) mmol/L BUN 38 H (7-17) mg/dL Creatinine 1.13 H (0.52-1.04) mg/dL Glucose 211 H (74-99) mg/dL POC Glucose (mg/dL) 307 H 251 H (75-99) mg/dL 10/08/20 Range/Units 06:43 Chloride (98-107) mmol/L Carbon Dioxide (22-30) mmol/L BUN (7-17) mg/dL Creatinine (0.52-1.04) mg/dL Glucose (74-99) mg/dL POC Glucose (mg/dL) 232 H (75-99) mg/dL
--- NOTE | 2020-10-08 13:35 | P.PN ---
Subjective Progress Note Date: 10/08/20 HISTORY OF PRESENT ILLNESS This is a 65-year-old female patient of Dr. Deras with past medical history significant for heart failure, COPD, chronic hypoxic respiratory failure on home O2 at 2 L nasal cannula and obstructive sleep apnea on BiPAP support at bedtime, diabetes mellitus type 2 with diabetic neuropathy, chronic diastolic heart failure, valvular heart disease, hypertension, hypothyroidism, GI bleed with anemia. Patient has had multiple admissions and multiple endoscopies for GIB and anemia. 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 The bleeding seems to be stable since that time. They, patient presented to the hospital due to chest pain in the midsternal area across her chest seems to be worse after she eats it was hurting after she had breakfast this morning. She complains of shortness of breath with exertion that is worse than the last time she was admitted. She states her stools have been normal. She does complain of abdominal distention and fullness after eating. Patient presented to the [facility] emergency [facility] for evaluation. Patient was found to be afebrile, heart rate 71, blood pressure 140/61, pulse ox 100% on oxygen. WBC 14.8, hemoglobin 8.2 which is stable for this patient. Platelet count is 310. Sodium 138, potassium 4.2, chloride 97, CO2 35, BUN 39 and creatinine 1.34 which is also patient's baseline. Blood sugar 207. D-dimer 0.89. Alkaline phosphatase 160. Troponin negative. Pro- BNP 2570. Lactic acid 1.0. Coronavirus PCR not detected. EKG sinus rhythm with nonspecific ST-T wave changes. Chest x-ray reveals vascular and interstitial markings prominent in the mid to lower lungs bilaterally similar to previous. Consider heart failure versus interstitial infiltrate. CAT scan of the abdomen and pelvis without contrast revealed hepatomegaly and 19.6 cm. Correlate with LFTs and risk factors for underlying hepatocellular disease. 1.3 cm right common iliac chain lymph node is enlarged. Left inguinal femoral chain lymph nodes are borderline enlarged. Findings probably reactive postinflammatory. 1.1 cm indeterminate right adrenal nodule. Moderate stool burden and generalized colonic diverticulosis. Tiny hiatal hernia. Consult was admitted for cardiology and patient has been seen by Dr. Yang for progressive dyspnea secondary to combination of COPD and element of heart failure with preserved systolic function. Plan to continue IV diuretics for 24 hours. 10/07: She has been afebrile, heart rate 86, blood pressure 101/46, pulse ox 90% on 4 L nasal cannula. WBC 11, hemoglobin 7.9, platelet count 319. Sodium 138, potassium 4.3, chloride 95, CO2 37, BUN 31 and creatinine 1.02. Blood sugars have been running 185 up to 405 at its 4 PM yesterday. Patient missed her morning dose of Levemir yesterday. Patient underwent gastric emptying study which was negative for gastroparesis. Patient is continued on IV Lasix at 40 mg every 12 hours. 10/08: Patient is afebrile, heart rate 75, blood pressure 146/57, pulse ox 92% on 3 L nasal cannula. Repeat blood work reveals sodium 138, potassium 4.9, chloride 96, CO2 37, BUN 38 creatinine 1.13. Blood sugars have been running between 211 and 307. Hemoglobin A1c from July is 5.2. Patient has increased dyspnea today along with a dry cough. She complains of shortness of breath with minimal activity, positive orthopnea. Patient was having issues with constipation and last evening and Senokot was added and she states she has had lots of bowel movements. Cardiology increase Lasix every 8 hours. Also Solu-Medrol added. REVIEW OF SYSTEMS Constitutional: No fever, no chills, no night sweats. No weight change. Reports weakness and fatigue no lethargy. No daytime sleepiness. EENT: No headache. No blurred vision or double vision, no loss of vision. No loss of Hearing, no ringing in the ears, no dizziness. No nasal drainage or congestion. No epistaxis. No sore throat. Lungs: Reports shortness of breath, reports cough, no sputum production. Reports wheezing. Cardiovascular: No chest pain, no lower extremity edema. No palpitations. No paroxysmal nocturnal dyspnea. No orthopnea. No lightheadedness or dizziness. No syncopal episodes. Abdominal: Reports upper abdominal pain. No nausea, vomiting. no diarrhea. Reports constipation. No bloody reports tarry stools. Denies bright red bleeding. no loss of appetite. Genitourinary: No dysuria, increased frequency, urgency. No urinary retention. Musculoskeletal: No myalgias. No muscle weakness, no gait dysfunction, no frequent falls. No back pain. No neck pain. Integumentary: No wounds, no lesions. No rash or pruritus. No unusual bruising. No change in hair or nails. Neurologic: No aphasia. No facial droop. No change in mentation. No head injury. No headache. No paralysis. No paresthesia. Psychiatric: No depression. No anxiety. No mood swings. Endocrine: Reported reports abdominal bloating, reports fullness after eating. abnormal blood sugars. No weight change. No excessive sweating or thirst. PHYSICAL EXAMINATION Gen: This is a 65-year-old female. She is resting and recliner and appears to be comfortable at rest. HEENT: Head is atraumatic, normocephalic. Pupils equal, round. Sclerae is anicteric. Conjunctiva pale. NECK: Supple. No JVD. No lymphadenopathy. No thyromegaly. LUNGS: Lateral wheezing. No intercostal retractions. HEART: Regular rate and rhythm. Systolic murmur. ABDOMEN: Soft. Bowel sounds are present. No masses. No tenderness. EXTREMITIES: No pedal edema. No calf tenderness. Dorsalis pedis +2 bilaterally. NEUROLOGICAL: Patient is awake, alert and oriented x3. Cranial nerves 2 through 12 are grossly intact. ASSESSMENT AND PLAN 1. Chronic hypoxic respiratory failure with progressive dyspnea secondary to COPD and acute on chronic diastolic heart failure. Continue Lasix 40 mg IV INCREASED FREQUENCY TO EVERY 8 hours, metolazone 2.5 mg on Tuesday. Solu-Medrol added. 2. Upper abdominal/lower chest pain with abdominal bloating and early satiety, ruled out gastroparesis. Most likely secondary to constipation and fecal burden. Patient started on Senokot 2 daily at 1800. 3. 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 Continue Protonix 40 mg oral twice daily. 4. Diabetes mellitus type 2 with diabetic neuropathy uncontrolled with hyperglycemia. Continue Levemir 30 units twice daily and NovoLog scale before meals and at bedtime. Continue Januvia 100 mg daily. 5. Diabetic neuropathy. Continue Lyrica 200 milligrams twice daily. 6. COPD without exacerbation. Continue DuoNeb treatment 4 times daily as needed, Symbicort 1604 0.5 g twice daily, Singulair 10 mg at bedtime. 7. Hypertension. Continue Lasix, Lopressor 100 mg twice daily. 8. Hyperlipidemia. Continue Lipitor 40 mg daily. 9. Obstructive sleep apnea. Continue BiPAP at night. 10. Hypothyroidism. Continue levothyroxine 125 g daily. Restless leg syndrome. Continue Requip 2 mg twice daily. 11. Recurrent depression. Continue Prozac 20 mg daily. 12. GI prophylaxis. Protonix twice daily. 13. DVT prophylaxis. Heparin subcu every 12 hours. DISCHARGE PLAN Home Impression and plan of care have been directed as dictated by the signing physician. Clarice Colón nurse practitioner acting as scribe for signing physician. Objective - Vital Signs Vital signs: Vital Signs Temp 97.6 F 10/08/20 08:00 Pulse 68 10/08/20 08:00 Resp 18 10/08/20 08:00 BP 118/66 10/08/20 08:00 Pulse Ox 92 L 10/08/20 08:00 Intake & Output 10/07/20 10/08/20 10/08/20 18:59 06:59 18:59 Intake Total 240 480 Output Total 450 500 350 Balance -450 -260 130 Weight 113 kg Intake: Oral 240 480 Output: Urine 450 500 350 Other: Voiding Method Toilet Toilet Toilet - Labs CBC & Chem 7: 10/07/20 06:32 10/08/20 05:55 Labs: Abnormal Lab Results - Last 24 Hours (Table) 10/07/20 10/07/20 10/07/20 Range/Units 11:56 17:11 20:17 Chloride (98-107) mmol/L Carbon Dioxide (22-30) mmol/L BUN (7-17) mg/dL Creatinine (0.52-1.04) mg/dL Glucose (74-99) mg/dL POC Glucose (mg/dL) 225 H 307 H 251 H (75-99) mg/dL 10/08/20 10/08/20 Range/Units 05:55 06:43 Chloride 96 L (98-107) mmol/L Carbon Dioxide 37 H (22-30) mmol/L BUN 38 H (7-17) mg/dL Creatinine 1.13 H (0.52-1.04) mg/dL Glucose 211 H (74-99) mg/dL POC Glucose (mg/dL) 232 H (75-99) mg/dL
[2020-10-08 17:05] LABS: Glucose,Whole Blood 441 mg/dL (75-99)
[2020-10-08] MEDS: SENNOSIDES-DOCUSATE SODIUM 1 EACH TAB PO SCH (17:44)
[2020-10-08] MEDS: MONTELUKAST 10 MG TAB PO SCH (20:33)
[2020-10-08 20:39] LABS: Glucose,Whole Blood >600 mg/dL (75-99)
[2020-10-08] MEDS: BUDESONIDE 1 MG/2 ML NEBU INHALATION SCH (21:13)
[2020-10-08] MEDS ORDERED: INSULIN ASPART (NovoLOG) 100 UNIT/ML VIAL SQ ONE (22:36)
[2020-10-08] MEDS ORDERED: INSULIN DETEMIR (LEVEMIR) 100 UNIT/ML SYR SQ ONE (22:45)
[2020-10-09] MEDS: FUROSEMIDE 10 MG/ML 4 ML VIAL IV SCH ×4 (01:00→21:26)
[2020-10-09] MEDS: methylPREDNISolone SOD SUCCI 40 MG/ML 1 ML VIAL IV SCH ×4 (01:00→21:27)
[2020-10-09] MEDS: Acetaminophen-Codeine 300-30mg TAB PO PRN ×3 (01:33→22:22)
[2020-10-09] MEDS: INSULIN ASPART (NovoLOG) 100 UNIT/ML VIAL SQ SCH ×8 (02:04→23:58)
[2020-10-09] MEDS: METOPROLOL TARTRATE 50 MG TAB PO SCH ×2 (02:37→21:24)
[2020-10-09 06:41] LABS: Glucose,Whole Blood 528 mg/dL (75-99)
[2020-10-09] MEDS ORDERED: INSULIN DETEMIR (LEVEMIR) 100 UNIT/ML SYR SQ STA (07:11)
[2020-10-09] MEDS: INSULIN DETEMIR (LEVEMIR) 100 UNIT/ML SYR SQ SCH ×2 (07:13→17:19)
[2020-10-09] MEDS: LEVOTHYROXINE 125 MCG TAB PO SCH (07:25)
[2020-10-09] MEDS ORDERED: INSULIN ASPART (NovoLOG) 100 UNIT/ML VIAL SQ ONE ×6 (07:30→22:17)
[2020-10-09 07:57] LABS: Calcium 9.1 mg/dL (8.4-10.2); Potassium 5.9 mmol/L (3.5-5.1)
[2020-10-09] MEDS: IPRATROPIUM-ALBUTEROL 3 ML NEB INHALATION PRN ×2 (08:27→20:02)
[2020-10-09] MEDS: BUDESONIDE 1 MG/2 ML NEBU INHALATION SCH ×2 (08:27→20:02)
[2020-10-09] MEDS: TIOTROPIUM 2.5 MCG INHALER INHALATION SCH (08:27)
[2020-10-09] MEDS: HEPARIN SODIUM,PORCINE/PF 5,000 UNIT/0.5 ML SYRINGE SQ SCH ×2 (09:37→21:45)
[2020-10-09] MEDS: FLUCONAZOLE 100 MG TAB PO SCH (09:38)
[2020-10-09] MEDS: LINAGLIPTIN 5 MG TABLET PO SCH (09:40)
[2020-10-09] MEDS: guaiFENesin 600 MG TABLET.ER PO SCH ×2 (09:40→21:43)
[2020-10-09] MEDS: FLUoxetine HCL 20 MG CAP PO SCH (09:40)
[2020-10-09] MEDS: ISOSORBIDE MONONITRATE ER 30 MG TAB.ER.24H PO SCH (09:40)
[2020-10-09] MEDS: POTASSIUM CHLORIDE ER 10 MEQ TAB.ER.PRT PO SCH ×2 (09:41→21:22)
[2020-10-09] MEDS: SPIRONOLACTONE 25 MG TAB PO SCH (09:43)
[2020-10-09 09:53] LABS: Glucose,Whole Blood 574 mg/dL (75-99)
[2020-10-09] MEDS: PANTOPRAZOLE 40 MG TABLET PO SCH ×2 (10:05→17:57)
--- NOTE | 2020-10-09 13:01 | P.PN ---
Subjective Progress Note Date: 10/09/20 HISTORY OF PRESENT ILLNESS This is a 65-year-old female patient of Dr. Deras with past medical history significant for heart failure, COPD, chronic hypoxic respiratory failure on home O2 at 2 L nasal cannula and obstructive sleep apnea on BiPAP support at bedtime, diabetes mellitus type 2 with diabetic neuropathy, chronic diastolic heart failure, valvular heart disease, hypertension, hypothyroidism, GI bleed with anemia. Patient has had multiple admissions and multiple endoscopies for GIB and anemia. 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 The bleeding seems to be stable since that time. They, patient presented to the hospital due to chest pain in the midsternal area across her chest seems to be worse after she eats it was hurting after she had breakfast this morning. She complains of shortness of breath with exertion that is worse than the last time she was admitted. She states her stools have been normal. She does complain of abdominal distention and fullness after eating. Patient presented to the [facility] emergency center for evaluation. Patient was found to be afebrile, heart rate 71, blood pressure 140/61, pulse ox 100% on oxygen. WBC 14.8, hemoglobin 8.2 which is stable for this patient. Platelet count is 310. Sodium 138, potassium 4.2, chloride 97, CO2 35, BUN 39 and creatinine 1.34 which is also patient's baseline. Blood sugar 207. D-dimer 0.89. Alkaline phosphatase 160. Troponin negative. Pro- BNP 2570. Lactic acid 1.0. Coronavirus PCR not detected. EKG sinus rhythm with nonspecific ST-T wave changes. Chest x-ray reveals vascular and interstitial markings prominent in the mid to lower lungs bilaterally similar to previous. Consider heart failure versus interstitial infiltrate. CAT scan of the abdomen and pelvis without contrast revealed hepatomegaly and 19.6 cm. Correlate with LFTs and risk factors for underlying hepatocellular disease. 1.3 cm right common iliac chain lymph node is enlarged. Left inguinal femoral chain lymph nodes are borderline enlarged. Findings probably reactive postinflammatory. 1.1 cm indeterminate right adrenal nodule. Moderate stool burden and generalized colonic diverticulosis. Tiny hiatal hernia. Consult was admitted for cardiology and patient has been seen by Dr. Yang for progressive dyspnea secondary to combination of COPD and element of heart failure with preserved systolic function. Plan to continue IV diuretics for 24 hours. 10/07: She has been afebrile, heart rate 86, blood pressure 101/46, pulse ox 90% on 4 L nasal cannula. WBC 11, hemoglobin 7.9, platelet count 319. Sodium 138, potassium 4.3, chloride 95, CO2 37, BUN 31 and creatinine 1.02. Blood sugars have been running 185 up to 405 at its 4 PM yesterday. Patient missed her morning dose of Levemir yesterday. Patient underwent gastric emptying study which was negative for gastroparesis. Patient is continued on IV Lasix at 40 mg every 12 hours. 10/08: Patient is afebrile, heart rate 75, blood pressure 146/57, pulse ox 92% on 3 L nasal cannula. Repeat blood work reveals sodium 138, potassium 4.9, chloride 96, CO2 37, BUN 38 creatinine 1.13. Blood sugars have been running between 211 and 307. Hemoglobin A1c from July is 5.2. Patient has increased dyspnea today along with a dry cough. She complains of shortness of breath with minimal activity, positive orthopnea. Patient was having issues with constipation and last evening and Senokot was added and she states she has had lots of bowel movements. Cardiology increase Lasix every 8 hours. Also Solu-Medrol added. 10/09: Pulse ox is 94% on 3 L nasal cannula. Patient has been afebrile, heart rate 86, blood pressure 134/63. Patient continues to have shortness of breath and nonproductive cough. She is wheezing. Positive shortness of breath with minimal activity. CTA of the chest has been ordered to rule out PE. Blood sugar at 0 was 604 and also high yesterday afternoon, patient received additional NovoLog on top of scale. Levemir 42 units subcu ordered this morning versus her normal dose of 30. Scheduled NovoLog will be increased to 6 units with meals. Solu-Medrol will be decreased to every 12 hours Repeat blood work reveals sodium 131, potassium 5.9, chloride 89, CO2 38, BUN 41 and creatinine 1.15. REVIEW OF SYSTEMS Constitutional: No fever, no chills, no night sweats. No weight change. Reports weakness and fatigue no lethargy. No daytime sleepiness. EENT: No headache. No blurred vision or double vision, no loss of vision. No loss of Hearing, no ringing in the ears, no dizziness. No nasal drainage or congestion. No epistaxis. No sore throat. Lungs: Reports shortness of breath, reports cough, no sputum production. Reports wheezing. Reports dyspnea with exertion. Cardiovascular: No chest pain, no lower extremity edema. No palpitations. No paroxysmal nocturnal dyspnea. No orthopnea. No lightheadedness or dizziness. No syncopal episodes. Abdominal: Reports upper abdominal pain. No nausea, vomiting. no diarrhea. Reports constipation. No bloody reports tarry stools. Denies bright red bleeding. no loss of appetite. Genitourinary: No dysuria, increased frequency, urgency. No urinary retention. Musculoskeletal: No myalgias. No muscle weakness, no gait dysfunction, no frequent falls. No back pain. No neck pain. Integumentary: No wounds, no lesions. No rash or pruritus. No unusual bruising. No change in hair or nails. Neurologic: No aphasia. No facial droop. No change in mentation. No head injury. No headache. No paralysis. No paresthesia. Psychiatric: No depression. No anxiety. Endocrine: Reported reports abnormal blood sugars. No weight change. PHYSICAL EXAMINATION Gen: This is a 65-year-old female. She is resting and recliner and appears to be comfortable at rest. HEENT: Head is atraumatic, normocephalic. Pupils equal, round. Sclerae is anicteric. Conjunctiva pale. NECK: Supple. No JVD. No lymphadenopathy. No thyromegaly. LUNGS: Lateral wheezing. No intercostal retractions. HEART: Regular rate and rhythm. Systolic murmur. ABDOMEN: Soft. Bowel sounds are present. No masses. No tenderness. EXTREMITIES: No pedal edema. No calf tenderness. Dorsalis pedis +2 bilaterally. NEUROLOGICAL: Patient is awake, alert and oriented x3. Cranial nerves 2 through 12 are grossly intact. ASSESSMENT AND PLAN 1. Chronic hypoxic respiratory failure with progressive dyspnea secondary to COPD and acute on chronic diastolic heart failure. Continue Lasix 40 mg IV every 8 hours, metolazone 2.5 mg on Tuesday. Solu-Medrol decreased to 40 mg every 12 hours. CTA of the chest ordered to rule out pulmonary embolism. 2. Upper abdominal/lower chest pain with abdominal bloating and early satiety, ruled out gastroparesis. Most likely secondary to constipation and fecal burden. Continue Senokot 2 daily at 1800. 3. 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 Continue Protonix 40 mg oral twice daily. 4. Diabetes mellitus type 2 with diabetic neuropathy uncontrolled with hyperglycemia. Continue Levemir 30 units twice daily and NovoLog scale before meals and at bedtime. Continue Januvia 100 mg daily. 5. Diabetic neuropathy. Continue Lyrica 200 milligrams twice daily. 6. COPD without exacerbation. Continue DuoNeb treatment 4 times daily as needed, Symbicort 1604 0.5 g twice daily, Singulair 10 mg at bedtime. 7. Hypertension. Continue Lasix, Lopressor 100 mg twice daily. 8. Hyperlipidemia. Continue Lipitor 40 mg daily. 9. Obstructive sleep apnea. Continue BiPAP at night. 10. Hypothyroidism. Continue levothyroxine 125 g daily. Restless leg syndrome. Continue Requip 2 mg twice daily. 11. Recurrent depression. Continue Prozac 20 mg daily. 12. GI prophylaxis. Protonix twice daily. 13. DVT prophylaxis. Heparin subcu every 12 hours. DISCHARGE PLAN Home Impression and plan of care have been directed as dictated by the signing physician. Clarice oClón nurse practitioner acting as scribe for signing physician. Objective - Vital Signs Vital signs: Vital Signs Temp 97.5 F L 10/09/20 01:50 Pulse 86 10/09/20 01:50 Resp 20 10/09/20 01:50 BP 172/70 10/09/20 01:50 Pulse Ox 94 L 10/09/20 01:50 Intake & Output 10/08/20 10/09/20 10/09/20 18:59 06:59 18:59 Intake Total 480 540 Output Total 950 2250 Balance -470 -1710 Weight 115.6 kg Intake: Oral 480 540 Output: Urine 950 2250 Other: Voiding Method Toilet Toilet - Labs CBC & Chem 7: 10/07/20 06:32 10/09/20 06:28 Labs: Abnormal Lab Results - Last 24 Hours (Table) 10/08/20 10/08/20 10/08/20 Range/Units 12:27 17:03 20:37 Glucose (74-99) mg/dL POC Glucose (mg/dL) 365 H 441 H >600 H (75-99) mg/dL 10/08/20 10/09/20 Range/Units 21:40 06:36 Glucose 604 H* (74-99) mg/dL POC Glucose (mg/dL) 528 H (75-99) mg/dL
[2020-10-09 13:16] LABS: Glucose,Whole Blood 571 mg/dL (75-99)
--- NOTE | 2020-10-09 13:29 | P.PN ---
Subjective Progress Note Date: 10/09/20 HISTORY OF PRESENT ILLNESS: This is a pleasant 65 year old female with a past medical history significant for COPD, anemia, aortic stenosis, morbid obesity, diabetes mellitu s, dyslipidemia and hypertension. She follows in the office with Dr. Samayoa. We are currently following secondary to exacerbation of heart failure and treating with IV diuretics. Most recent echocardiogram obtained May 2020 revealed preserved LV systolic function with moderate aortic stenosis, mean gradient of 24 mmHg, mild aortic regurgitation and mild mitral regurgitation. 10/08/2020 Patient examined this morning at the bedside. Patient states her breathing feels a little bit worse today. She states she was unable to lay flat overnight and states like her breathing was a little bit more labored. She is on 3 L nasal cannula with oxygen saturations greater than 92%. BUN 38. Creatinine 1.13. Patient's weight increased from 113 kg to 115.6 kg. 10/09/2020 Patient examined this morning at the bedside. Patient states she still feels short of breath. Patient is on 3 L nasal cannula with oxygen saturations greater than 92%. Patient states she did not sleep well last night because she received her IV Lasix had one in the morning and was up urinating all night. Potassium 5.9. Patient's blood sugars are running in the 500s. BUN 41. Creatinine 1.15. Fluid balance over the last 24 hours is -2180 mL PHYSICAL EXAM: VITAL SIGNS: Reviewed. GENERAL: Well-developed in no acute distress. NECK: Supple. No JVD or thyromegaly LUNGS: Respirations even and unlabored. Lungs diminished with faint bibasilar rales HEART: Regular rate and rhythm. S1 and S2 heard. Systolic murmur noted. EXTREMITIES: Normal range of motion. No clubbing or cyanosis. Peripheral pulses intact. 1+ bilateral extremity edema ASSESSMENT: Acute on chronic diastolic heart failure Acute exacerbation of COPD Hyperkalemia Leukocytosis Acute kidney injury, improved Chronic anemia with recent history of active bleeding noted on capsule study Hypertension Dyslipidemia Diabetes mellitus Aortic stenosis Morbid obesity, BMI 48 PLAN: Continue current cardiac medications Continue IV lasix 40mg TID Daily weights Accurate I&O Monitor kidney function Repeat potassium level this afternoon Further recommendations pending patient course Nurse practitioner note has been reviewed by physician. Signing provider agrees with the documented findings, assessment, and plan of care. Objective - Vital Signs Vital signs: Vital Signs Temp 98.2 F 04/15/21 09:50 Pulse 77 10/09/20 09:50 Resp 16 10/09/20 09:50 BP 134/63 10/09/20 09:50 Pulse Ox 94 L 10/09/20 09:50 Intake & Output 10/08/20 10/09/20 10/09/20 18:59 06:59 18:59 Intake Total 480 540 Output Total 950 2250 1160 Balance -470 -1710 -1160 Weight 115.6 kg 114.5 kg Intake: Oral 480 540 Output: Urine 950 2250 1160 Other: Voiding Method Toilet Toilet # Voids 1 # Bowel Movements 1 - Labs CBC & Chem 7: 10/07/20 06:32 10/09/20 06:28 Labs: Abnormal Lab Results - Last 24 Hours (Table) 10/08/20 10/08/20 10/08/20 Range/Units 17:03 20:37 21:40 Sodium (137-145) mmol/L Potassium (3.5-5.1) mmol/L Chloride (98-107) mmol/L Carbon Dioxide (22-30) mmol/L BUN (7-17) mg/dL Creatinine (0.52-1.04) mg/dL Glucose 604 H* (74-99) mg/dL POC Glucose (mg/dL) 441 H >600 H (75-99) mg/dL 10/09/20 10/09/20 10/09/20 Range/Units 06:28 06:36 09:49 Sodium 131 L (137-145) mmol/L Potassium 5.9 H (3.5-5.1) mmol/L Chloride 89 L (98-107) mmol/L Carbon Dioxide 38 H (22-30) mmol/L BUN 41 H (7-17) mg/dL Creatinine 1.15 H (0.52-1.04) mg/dL Glucose 476 H (74-99) mg/dL POC Glucose (mg/dL) 528 H 574 H (75-99) mg/dL 10/09/20 Range/Units 13:10 Sodium (137-145) mmol/L Potassium (3.5-5.1) mmol/L Chloride (98-107) mmol/L Carbon Dioxide (22-30) mmol/L BUN (7-17) mg/dL Creatinine (0.52-1.04) mg/dL Glucose (74-99) mg/dL POC Glucose (mg/dL) 571 H (75-99) mg/dL
--- NOTE | 2020-10-09 13:30 | CT ---
EXAMINATION TYPE: CT chest angio for PE DATE OF EXAM: 10/09/2020 COMPARISON: Chest x-ray 3 days ago HISTORY: difficulty breathing CT DLP: 780.2 mGycm Automated exposure control for dose reduction was used. CONTRAST: CT Chest for pulmonary embolism performed with with IV Contrast, patient injected with 80 mL of Isovu e 370. FINDINGS: LUNGS: Exam suboptimal inspiration unable to hold breath. This limits evaluation for subcentimeter no dules. Increased intralobular markings with opacities are present bilaterally. No suspicious focal co nsolidation. No concerning masses. No pleural effusion or pneumothorax seen bilaterally. MEDIASTINUM: Most dense contrast is seen in the SVC. Suboptimal opacification of the pulmonary arter ies with heterogeneity in the periphery. No significant central pulmonary embolism. Smaller segmental and subsegmental PE not completely excluded on this study. Some opacification of the aorta without a neurysm or dissection. Main pulmonary artery dilated at 3.3 cm axial image 50, CT findings consistent with underlying pulmonary hypertension. There are prominent greater than 1 cm bilateral hilar lymph nodes. Calcification at level of the mitral and aortic valves. Moderate to severe coronary artery oc cification. Cardiomegaly. No pericardial effusion is seen. OTHER: Cholecystectomy clips. Some scattered colonic diverticula. IMPRESSION: Suboptimal study without central pulmonary embolism. Cardiomegaly with mild interstitial and alveolar edema raises concern for CHF exacerbation. Correlate clinically. No suspicious focal con solidation.
[2020-10-09] MEDS: PREGABALIN 100 MG CAP PO SCH ×2 (13:58→22:28)
[2020-10-09 14:39] LABS: Potassium 5.8 mmol/L (3.5-5.1)
[2020-10-09 14:48] LABS: Calcium 9.1 mg/dL (8.4-10.2)
[2020-10-09 17:15] LABS: Glucose,Whole Blood 550 mg/dL (75-99)
[2020-10-09] MEDS: SENNOSIDES-DOCUSATE SODIUM 1 EACH TAB PO SCH ×2 (17:57→18:08)
[2020-10-09] MEDS ORDERED: INSULIN DETEMIR (LEVEMIR) 100 UNIT/ML SYR SQ ONE (21:00)
[2020-10-09 21:21] LABS: Glucose,Whole Blood 481 mg/dL (75-99)
[2020-10-09] MEDS: MONTELUKAST 10 MG TAB PO SCH (21:23)
[2020-10-10] MEDS: INSULIN ASPART (NovoLOG) 100 UNIT/ML VIAL SQ SCH ×8 (01:36→20:33)
[2020-10-10] MEDS: Acetaminophen-Codeine 300-30mg TAB PO PRN ×2 (06:12→19:48)
[2020-10-10] MEDS: LEVOTHYROXINE 125 MCG TAB PO SCH (06:12)
[2020-10-10 06:43] LABS: Glucose,Whole Blood 512 mg/dL (75-99)
[2020-10-10] MEDS ORDERED: INSULIN ASPART (NovoLOG) 100 UNIT/ML VIAL SQ ONE ×3 (06:58→12:36)
[2020-10-10] MEDS ORDERED: INSULIN DETEMIR (LEVEMIR) 100 UNIT/ML SYR SQ SCH (07:00)
[2020-10-10] MEDS ORDERED: INSULIN NPH 300 UNIT/3 ML VIAL SQ ONE (07:00)
[2020-10-10] MEDS: BUDESONIDE 1 MG/2 ML NEBU INHALATION SCH ×2 (07:21→19:17)
[2020-10-10] MEDS: TIOTROPIUM 2.5 MCG INHALER INHALATION SCH (07:21)
[2020-10-10] MEDS: IPRATROPIUM-ALBUTEROL 3 ML NEB INHALATION PRN ×2 (07:21→19:17)
[2020-10-10] MEDS: guaiFENesin 600 MG TABLET.ER PO SCH ×2 (08:03→20:35)
[2020-10-10] MEDS: methylPREDNISolone SOD SUCCI 40 MG/ML 1 ML VIAL IV SCH (08:03)
[2020-10-10] MEDS: HEPARIN SODIUM,PORCINE/PF 5,000 UNIT/0.5 ML SYRINGE SQ SCH ×2 (08:03→20:34)
[2020-10-10] MEDS: LINAGLIPTIN 5 MG TABLET PO SCH (08:03)
[2020-10-10] MEDS: metOLazone 2.5 MG TAB PO SCH (08:03)
[2020-10-10] MEDS: FLUoxetine HCL 20 MG CAP PO SCH (08:04)
[2020-10-10] MEDS: METOPROLOL TARTRATE 50 MG TAB PO SCH ×2 (08:04→20:35)
[2020-10-10] MEDS: PANTOPRAZOLE 40 MG TABLET PO SCH ×2 (08:04→18:37)
[2020-10-10] MEDS: PREGABALIN 100 MG CAP PO SCH ×2 (08:04→20:35)
[2020-10-10] MEDS: FLUCONAZOLE 100 MG TAB PO SCH (08:04)
[2020-10-10] MEDS: ISOSORBIDE MONONITRATE ER 30 MG TAB.ER.24H PO SCH (08:04)
[2020-10-10] MEDS: SPIRONOLACTONE 25 MG TAB PO SCH (08:04)
[2020-10-10] MEDS: POTASSIUM CHLORIDE ER 10 MEQ TAB.ER.PRT PO SCH (08:04)
[2020-10-10] MEDS: FUROSEMIDE 10 MG/ML 4 ML VIAL IV SCH (08:05)
[2020-10-10 09:21] LABS: Calcium 8.9 mg/dL (8.4-10.2)
[2020-10-10 09:36] LABS: Potassium 6.1 mmol/L (3.5-5.1)
[2020-10-10] MEDS ORDERED: SODIUM POLYSTYRENE SULFONATE 15 GM/60 ML BOTTLE PO STA (10:23)
--- NOTE | 2020-10-10 11:03 | P.PN ---
Subjective Progress Note Date: 10/10/20 HISTORY OF PRESENT ILLNESS: This is a pleasant 65 year old female with a past medical history significant for COPD, anemia, aortic stenosis, morbid obesity, diabetes mellitu s, dyslipidemia and hypertension. She follows in the office with Dr. Samayoa. We are currently following secondary to exacerbation of heart failure and treating with IV diuretics. Most recent echocardiogram obtained May 2020 revealed preserved LV systolic function with moderate aortic stenosis, mean gradient of 24 mmHg, mild aortic regurgitation and mild mitral regurgitation. 10/08/2020 Patient examined this morning at the bedside. Patient states her breathing feels a little bit worse today. She states she was unable to lay flat overnight and states like her breathing was a little bit more labored. She is on 3 L nasal cannula with oxygen saturations greater than 92%. BUN 38. Creatinine 1.13. Patient's weight increased from 113 kg to 115.6 kg. 10/09/2020 Patient examined this morning at the bedside. Patient states she still feels short of breath. Patient is on 3 L nasal cannula with oxygen saturations greater than 92%. Patient states she did not sleep well last night because she received her IV Lasix had one in the morning and was up urinating all night. Potassium 5.9. Patient's blood sugars are running in the 500s. BUN 41. Creatinine 1.15. Fluid balance over the last 24 hours is -2180 mL 10/10/2020 Patient examined this morning. She is sitting up in the chair. She states her breathing has improved. She remains on IV lasix. BUN 57. Creatinine 1.41. Blood sugars remain in the 500s. PHYSICAL EXAM: VITAL SIGNS: Reviewed. GENERAL: Well-developed in no acute distress. NECK: Supple. No JVD or thyromegaly LUNGS: Respirations even and unlabored. Lungs diminished with faint bibasilar rales HEART: Regular rate and rhythm. S1 and S2 heard. Systolic murmur noted. EXTREMITIES: Normal range of motion. No clubbing or cyanosis. Peripheral pulses intact. 1+ bilateral extremity edema ASSESSMENT: Acute on chronic diastolic heart failure Acute exacerbation of COPD Hyperkalemia Leukocytosis Acute kidney injury, improved Chronic anemia with recent history of active bleeding noted on capsule study Hypertension Dyslipidemia Diabetes mellitus Aortic stenosis Morbid obesity, BMI 48 PLAN: Continue current cardiac medications Patient switched to oral lasix this morning per primary medicine Daily weights Accurate I&O Monitor kidney function Management of hyperkalemia and hyperglycemia per primary medicine Further recommendations pending patient course Nurse practitioner note has been reviewed by physician. Signing provider agrees with the documented findings, assessment, and plan of care. Objective - Vital Signs Vital signs: Vital Signs Temp 97.6 F 10/10/20 08:00 Pulse 60 10/10/20 08:00 Resp 18 10/10/20 08:00 BP 131/54 10/10/20 08:00 Pulse Ox 95 10/10/20 08:00 Intake & Output 10/09/20 10/10/20 10/10/20 18:59 06:59 18:59 Intake Total 1227 Output Total 1660 2940 200 Balance -1660 -1713 -200 Weight 114.5 kg Intake: Oral 1227 Output: Urine 1660 2940 200 Other: Voiding Method Toilet # Voids 1 2 # Bowel Movements 1 1 - Labs CBC & Chem 7: 10/07/20 06:32 10/10/20 08:50 Labs: Abnormal Lab Results - Last 24 Hours (Table) 10/09/20 10/09/20 10/09/20 Range/Units 13:10 13:48 17:12 Sodium 130 L (137-145) mmol/L Potassium 5.8 H (3.5-5.1) mmol/L Chloride 88 L (98-107) mmol/L Carbon Dioxide 37 H (22-30) mmol/L BUN 43 H (7-17) mg/dL Creatinine 1.27 H (0.52-1.04) mg/dL Glucose 554 H* (74-99) mg/dL POC Glucose (mg/dL) 571 H 550 H (75-99) mg/dL 10/09/20 10/10/20 10/10/20 Range/Units 21:20 06:41 08:50 Sodium 129 L (137-145) mmol/L Potassium 6.1 H* (3.5-5.1) mmol/L Chloride 84 L (98-107) mmol/L Carbon Dioxide 39 H (22-30) mmol/L BUN 57 H (7-17) mg/dL Creatinine 1.41 H (0.52-1.04) mg/dL Glucose 560 H* (74-99) mg/dL POC Glucose (mg/dL) 481 H 512 H (75-99) mg/dL
[2020-10-10 11:49] LABS: Anisocytosis Slight; Basophils % (A) 0 %; Eosinophils % (A) 0 %; HCT 27.8 % (34.0-46.0); HGB 7.5 gm/dL (11.4-16.0); Hypochromasia Marked; Lymphocytes # (A) 0.8 k/uL (1.0-4.8); Lymphocytes % (A) 5 %; MCH 22.4 pg (25.0-35.0); MCV 82.8 fL (80.0-100.0); Mean Platelet Volume 8.4; Microcytosis Slight; Monocytes # (A) 0.7 k/uL (0-1.0); Monocytes % (A) 4 %; Neutrophils # (A) 14.2 k/uL (1.3-7.7); Neutrophils % (A) 90 %; Platelet Count 388 k/uL (150-450); Poikilocytosis Slight; RBC 3.36 m/uL (3.80-5.40); WBC 15.8 k/uL (3.8-10.6)
[2020-10-10 12:15] LABS: Glucose,Whole Blood 600 mg/dL (75-99)
[2020-10-10] MEDS ORDERED: INSULIN ASPART (NovoLOG) 100 UNIT/ML VIAL SQ SCH (12:30)
--- NOTE | 2020-10-10 12:48 | P.PN ---
Subjective Progress Note Date: 10/10/20 HISTORY OF PRESENT ILLNESS This is a 65-year-old female patient of Dr. Deras with past medical history significant for heart failure, COPD, chronic hypoxic respiratory failure on home O2 at 2 L nasal cannula and obstructive sleep apnea on BiPAP support at bedtime, diabetes mellitus type 2 with diabetic neuropathy, chronic diastolic heart failure, valvular heart disease, hypertension, hypothyroidism, GI bleed with anemia. Patient has had multiple admissions and multiple endoscopies for GIB and anemia. 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 The bleeding seems to be stable since that time. They, patient presented to the hospital due to chest pain in the midsternal area across her chest seems to be worse after she eats it was hurting after she had breakfast this morning. She complains of shortness of breath with exertion that is worse than the last time she was admitted. She states her stools have been normal. She does complain of abdominal distention and fullness after eating. Patient presented to the [facility] emergency center for evaluation. Patient was found to be afebrile, heart rate 71, blood pressure 140/61, pulse ox 100% on oxygen. WBC 14.8, hemoglobin 8.2 which is stable for this patient. Platelet count is 310. Sodium 138, potassium 4.2, chloride 97, CO2 35, BUN 39 and creatinine 1.34 which is also patient's baseline. Blood sugar 207. D-dimer 0.89. Alkaline phosphatase 160. Troponin negative. Pro- BNP 2570. Lactic acid 1.0. Coronavirus PCR not detected. EKG sinus rhythm with nonspecific ST-T wave changes. Chest x-ray reveals vascular and interstitial markings prominent in the mid to lower lungs bilaterally similar to previous. Consider heart failure versus interstitial infiltrate. CAT scan of the abdomen and pelvis without contrast revealed hepatomegaly and 19.6 cm. Correlate with LFTs and risk factors for underlying hepatocellular disease. 1.3 cm right common iliac chain lymph node is enlarged. Left inguinal femoral chain lymph nodes are borderline enlarged. Findings probably reactive postinflammatory. 1.1 cm indeterminate right adrenal nodule. Moderate stool burden and generalized colonic diverticulosis. Tiny hiatal hernia. Consult was admitted for cardiology and patient has been seen by Dr. Yang for progressive dyspnea secondary to combination of COPD and element of heart failure with preserved systolic function. Plan to continue IV diuretics for 24 hours. 10/07: She has been afebrile, heart rate 86, blood pressure 101/46, pulse ox 90% on 4 L nasal cannula. WBC 11, hemoglobin 7.9, platelet count 319. Sodium 138, potassium 4.3, chloride 95, CO2 37, BUN 31 and creatinine 1.02. Blood sugars have been running 185 up to 405 at its 4 PM yesterday. Patient missed her morning dose of Levemir yesterday. Patient underwent gastric emptying study which was negative for gastroparesis. Patient is continued on IV Lasix at 40 mg every 12 hours. 10/08: Patient is afebrile, heart rate 75, blood pressure 146/57, pulse ox 92% on 3 L nasal cannula. Repeat blood work reveals sodium 138, potassium 4.9, chloride 96, CO2 37, BUN 38 creatinine 1.13. Blood sugars have been running between 211 and 307. Hemoglobin A1c from July is 5.2. Patient has increased dyspnea today along with a dry cough. She complains of shortness of breath with minimal activity, positive orthopnea. Patient was having issues with constipation and last evening and Senokot was added and she states she has had lots of bowel movements. Cardiology increase Lasix every 8 hours. Also Solu-Medrol added. 10/09: Pulse ox is 94% on 3 L nasal cannula. Patient has been afebrile, heart rate 86, blood pressure 134/63. Patient continues to have shortness of breath and nonproductive cough. She is wheezing. Positive shortness of breath with minimal activity. CTA of the chest has been ordered to rule out PE. Blood sugar at 0 was 604 and also high yesterday afternoon, patient received additional NovoLog on top of scale. Levemir 42 units subcu ordered this morning versus her normal dose of 30. Scheduled NovoLog will be increased to 6 units with meals. Solu-Medrol will be decreased to every 12 hours Repeat blood work reveals sodium 131, potassium 5.9, chloride 89, CO2 38, BUN 41 and creatinine 1.15. 10/10: CTA of the chest was suboptimal study without central pulmonary embolism. Cardiomegaly with mild interstitial and alveolar edema raises concern for heart failure exacerbation. No focal consolidation. She is currently on Lasix 40 mg IV 3 times daily. She continues to have shortness of breath, dyspnea with exertion and lower extremity edema. Lasix will be decreased tomorrow to 60 mg oral twice daily. Blood sugars continue to be in the 400s and 500s. She has received additional NovoLog plus scale. Levemir will be increased to 45 units twice daily and scheduled NovoLog increased to 12 units with meals and at at bedtime. Solu-Medrol was discontinued and patient to start prednisone tomorrow. Pulse ox is 95% on 3 L nasal cannula. She's been afebrile, heart rate 60, blood pressure 131/54. Repeat blood work reveals WBC 15.8, hemoglobin 7.5, platelet count 388. Sodium was 129, potassium 6.1 and one dose of Kayexalate 30 mg ordered, oral prednisone scheduled was discontinued and Aldactone decreased to 12.5 mg daily. Chloride 84, CO2 39, BUN 57 and creatinine 1.41. REVIEW OF SYSTEMS Constitutional: No fever, no chills, no night sweats. No weight change. Reports weakness and fatigue no lethargy. No daytime sleepiness. EENT: No headache. No blurred vision or double vision, no loss of vision. No loss of Hearing, no ringing in the ears, no dizziness. No nasal drainage or congestion. No epistaxis. No sore throat. Lungs: Reports shortness of breath, reports cough, no sputum production. Reports wheezing. Reports dyspnea with exertion. Cardiovascular: No chest pain, no lower extremity edema. No palpitations. No paroxysmal nocturnal dyspnea. No orthopnea. No lightheadedness or dizziness. No syncopal episodes. Abdominal: Reports upper abdominal pain. No nausea, vomiting. no diarrhea. Reports constipation. No bloody reports tarry stools. Denies bright red bleed ing. no loss of appetite. Genitourinary: No dysuria, increased frequency, urgency. No urinary retention. Musculoskeletal: No myalgias. No muscle weakness, no gait dysfunction, no frequent falls. No back pain. No neck pain. Integumentary: No wounds, no lesions. No rash or pruritus. No unusual bruising. No change in hair or nails. Neurologic: No aphasia. No facial droop. No change in mentation. No head injury. No headache. No paralysis. No paresthesia. Psychiatric: No depression. No anxiety. Endocrine: Reported reports abnormal blood sugars. No weight change. PHYSICAL EXAMINATION Gen: This is a 65-year-old female. She is resting and recliner and appears to be comfortable at rest. HEENT: Head is atraumatic, normocephalic. Pupils equal, round. Sclerae is anicteric. Conjunctiva pale. NECK: Supple. No JVD. No lymphadenopathy. No thyromegaly. LUNGS: Lateral wheezing. No intercostal retractions. HEART: Regular rate and rhythm. Systolic murmur. ABDOMEN: Soft. Bowel sounds are present. No masses. No tenderness. EXTREMITIES: No pedal edema. No calf tenderness. Dorsalis pedis +2 bilaterally. NEUROLOGICAL: Patient is awake, alert and oriented x3. Cranial nerves 2 through 12 are grossly intact. ASSESSMENT AND PLAN 1. Chronic hypoxic respiratory failure with progressive dyspnea secondary to COPD and acute on chronic diastolic heart failure. Continue Lasix 40 mg IV anny ry 8 hours and transition to oral Lasix tomorrow and 60 mg twice daily, continue metolazone 2.5 mg on Tuesday. Aldactone decreased to 12.5 mg daily. Solu-Medrol transition to oral prednisone tomorrow. CTA of the chest ruled out pulmonary embolism. 2. Upper abdominal/lower chest pain with abdominal bloating and early satiety, ruled out gastroparesis. Most likely secondary to constipation and fecal burden. Continue Senokot 2 daily at 1800. 3. 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 Continue Protonix 40 mg oral twice daily. Hemoglobin is stable. 4. Diabetes mellitus type 2 with diabetic neuropathy uncontrolled with hyperglycemia secondary to steroids. Continue Levemir increased to 45 units twice daily, scheduled NovoLog increased to 12 units before meals and at bed time, continue NovoLog scale before meals and at bedtime. Continue Januvia 100 mg daily. Hemoglobin A1c in July was 5.2. 5. Diabetic neuropathy. Continue Lyrica 200 milligrams twice daily. 6. COPD without exacerbation. Continue DuoNeb treatment 4 times daily as needed, Pulmicort 1 mg twice daily, Singulair 10 mg at bedtime. 7. Hypertension. Continue Lasix, Lopressor 100 mg twice daily. 8. Hyperlipidemia. Continue Lipitor 40 mg daily. 9. Obstructive sleep apnea. Continue BiPAP at night. 10. Hypothyroidism. Continue levothyroxine 125 g daily. Restless leg syndrome. Continue Requip 2 mg twice daily. 11. Recurrent depression. Continue Prozac 20 mg daily. 12. Oral thrush. Diflucan 100 mg daily. 13. GI prophylaxis. Protonix twice daily. 14. DVT prophylaxis. Heparin subcu every 12 hours. DISCHARGE PLAN Home Impression and plan of care have been directed as dictated by the signing physician. Clarice Colón nurse practitioner acting as scribe for signing physician. Objective - Vital Signs Vital signs: Vital Signs Temp 97.6 F 10/10/20 08:00 Pulse 60 10/10/20 08:00 Resp 18 10/10/20 08:00 BP 131/54 10/10/20 08:00 Pulse Ox 95 10/10/20 08:00 Intake & Output 10/09/20 10/10/20 10/10/20 18:59 06:59 18:59 Intake Total 1227 Output Total 1660 2940 Balance -1660 -1713 Weight 114.5 kg Intake: Oral 1227 Output: Urine 1660 2940 Other: # Voids 1 2 # Bowel Movements 1 1 - Labs CBC & Chem 7: 10/10/20 08:50 10/10/20 08:50 Labs: Abnormal Lab Results - Last 24 Hours (Table) 10/09/20 10/09/20 10/09/20 Range/Units 09:49 13:10 13:48 Sodium 130 L (137-145) mmol/L Potassium 5.8 H (3.5-5.1) mmol/L Chloride 88 L (98-107) mmol/L Carbon Dioxide 37 H (22-30) mmol/L BUN 43 H (7-17) mg/dL Creatinine 1.27 H (0.52-1.04) mg/dL Glucose 554 H* (74-99) mg/dL POC Glucose (mg/dL) 574 H 571 H (75-99) mg/dL 10/09/20 10/09/20 10/10/20 Range/Units 17:12 21:20 06:41 Sodium (137-145) mmol/L Potassium (3.5-5.1) mmol/L Chloride (98-107) mmol/L Carbon Dioxide (22-30) mmol/L BUN (7-17) mg/dL Creatinine (0.52-1.04) mg/dL Glucose (74-99) mg/dL POC Glucose (mg/dL) 550 H 481 H 512 H (75-99) mg/dL
[2020-10-10] MEDS: FUROSEMIDE 20 MG TAB PO SCH (17:06)
[2020-10-10 17:42] LABS: Glucose,Whole Blood 499 mg/dL (75-99)
[2020-10-10] MEDS: INSULIN DETEMIR (LEVEMIR) 100 UNIT/ML SYR SQ SCH (18:37)
[2020-10-10] MEDS: SENNOSIDES-DOCUSATE SODIUM 1 EACH TAB PO SCH (18:37)
[2020-10-10 20:20] LABS: Glucose,Whole Blood 575 mg/dL (75-99)
[2020-10-10 20:29] LABS: Ferritin 25.6 ng/mL (10.0-291.0)
[2020-10-10] MEDS: MONTELUKAST 10 MG TAB PO SCH (20:36)
[2020-10-10 21:06] LABS: % Iron Saturation 2.39 (12.00-45.00)
[2020-10-11] MEDS: LEVOTHYROXINE 125 MCG TAB PO SCH (06:25)
[2020-10-11 06:36] LABS: Glucose,Whole Blood 469 mg/dL (75-99)
[2020-10-11] MEDS: Acetaminophen-Codeine 300-30mg TAB PO PRN ×2 (06:37→21:36)
[2020-10-11] MEDS: PANTOPRAZOLE 40 MG TABLET PO SCH ×2 (06:37→18:09)
[2020-10-11] MEDS: INSULIN ASPART (NovoLOG) 100 UNIT/ML VIAL SQ SCH ×8 (06:38→21:32)
[2020-10-11] MEDS: INSULIN DETEMIR (LEVEMIR) 100 UNIT/ML SYR SQ SCH ×2 (06:38→21:33)
[2020-10-11 06:56] LABS: Anisocytosis Slight; HCT 27.4 % (34.0-46.0); HGB 7.4 gm/dL (11.4-16.0); Hypochromasia Marked; MCH 22.1 pg (25.0-35.0); MCV 81.7 fL (80.0-100.0); Mean Platelet Volume 7.6; Microcytosis Slight; Platelet Count 325 k/uL (150-450); Poikilocytosis Slight; RBC 3.35 m/uL (3.80-5.40); RDW 18.6 % (11.5-15.5); WBC 12.4 k/uL (3.8-10.6)
[2020-10-11 07:09] LABS: Albumin 3.7 g/dL (3.5-5.0); Calcium 9.2 mg/dL (8.4-10.2); Potassium 5.1 mmol/L (3.5-5.1); Total Bilirubin 0.4 mg/dL (0.2-1.3); Total Protein 6.8 g/dL (6.3-8.2)
[2020-10-11] MEDS: SPIRONOLACTONE 25 MG TAB PO SCH (07:33)
[2020-10-11] MEDS: METOPROLOL TARTRATE 50 MG TAB PO SCH ×2 (07:34→21:28)
[2020-10-11] MEDS: PREGABALIN 100 MG CAP PO SCH ×2 (07:34→21:27)
[2020-10-11] MEDS: HEPARIN SODIUM,PORCINE/PF 5,000 UNIT/0.5 ML SYRINGE SQ SCH ×2 (07:34→21:30)
[2020-10-11] MEDS: guaiFENesin 600 MG TABLET.ER PO SCH ×2 (07:34→21:29)
[2020-10-11] MEDS: FLUoxetine HCL 20 MG CAP PO SCH (07:35)
[2020-10-11] MEDS: FUROSEMIDE 20 MG TAB PO SCH (07:35)
[2020-10-11] MEDS: predniSONE 20 MG TAB PO SCH (07:35)
[2020-10-11] MEDS: LINAGLIPTIN 5 MG TABLET PO SCH (07:37)
[2020-10-11] MEDS: FLUCONAZOLE 100 MG TAB PO SCH (07:37)
[2020-10-11] MEDS: ISOSORBIDE MONONITRATE ER 30 MG TAB.ER.24H PO SCH (07:37)
[2020-10-11] MEDS: BUDESONIDE 1 MG/2 ML NEBU INHALATION SCH ×2 (09:36→20:12)
--- NOTE | 2020-10-11 11:20 | P.PN ---
Subjective This is a pleasant 65 showed female past medical history significant for COPD, anemia, aortic stenosis, morbid obesity, diabetes mellitus, dyslipidemia and hypertension. She follows in the office with Dr. Samayoa. She is seen and examined sitting up on the edge of the bed. She was transitioned to oral diuretics yesterday for the primary care team. She states she had a horrible night. She was up frequently cannot get comfortable. She continues to complain of ongoing exertional shortness of breath. She has no chest pain, dizziness or palpitations. Blood pressure 121/57 heart rate 61 afebrile maintaining oxygen saturation on nasal cannula. Laboratory data reviewed, WBC 12.4, hemoglobin 7.4, platelets 325, sodium 131, potassium 5.1, creatinine 1.34, repeat BNP 2620 and CO2 42. GENERAL: Well-appearing, well-nourished and in no acute distress. NECK: Supple without JVD or thyromegaly. LUNGS: Bibasilar rales, no wheezes or rhonchi. Respiration equal and unlabored. HEART: Regular rate and rhythm with systolic ejection murmur at the base, no rubs or gallops. S1 and S2 heard. EXTREMITIES: Normal range of motion, 1+ pitting edema bilaterally. No clubbing or cyanosis. Peripheral pulses intact. ASSESSMENT Acute on chronic diastolic heart failure COPD Leukocytosis Acute kidney injury, improved Chronic anemia with recent history of active bleeding noted on capsule study Hypertension Dyslipidemia Diabetes mellitus Aortic stenosis Morbid obesity, BMI 48 PLAN Repeat chest xray this morning. Resume IV diuretics. Follow renal function and electrolytes in the morning. Continue to document accurate intake and output along with daily weights. Consider blood transfusion. Nurse Practitioner note has been reviewed, I agree with a documented findings and plan of care. Patient was seen and examined. Objective - Vital Signs Vital signs: Vital Signs Temp 97.6 F 10/11/20 07:54 Pulse 61 10/11/20 07:54 Resp 20 10/11/20 07:54 BP 121/57 10/11/20 07:54 Pulse Ox 99 10/11/20 07:54 Intake & Output 10/10/20 10/11/20 10/11/20 18:59 06:59 18:59 Intake Total 600 Output Total 600 Balance -600 600 Weight 114.759 kg 113.5 kg Intake: Oral 600 Output: Urine 600 Other: Voiding Method Toilet Toilet Toilet # Voids 4 # Bowel Movements 2 - Labs CBC & Chem 7: 10/11/20 06:19 10/11/20 06:19 Labs: Abnormal Lab Results - Last 24 Hours (Table) 10/10/20 10/10/20 10/10/20 Range/Units 08:50 08:50 12:11 WBC 15.8 H (3.8-10.6) k/uL RBC 3.36 L (3.80-5.40) m/uL Hgb 7.5 L (11.4-16.0) gm/dL Hct 27.8 L (34.0-46.0) % MCH 22.4 L (25.0-35.0) pg MCHC 27.0 L (31.0-37.0) g/dL RDW 19.0 H (11.5-15.5) % Neutrophils # 14.2 H (1.3-7.7) k/uL Lymphocytes # 0.8 L (1.0-4.8) k/uL Sodium (137-145) mmol/L Chloride (98-107) mmol/L Carbon Dioxide (22-30) mmol/L BUN (7-17) mg/dL Creatinine (0.52-1.04) mg/dL Glucose (74-99) mg/dL POC Glucose (mg/dL) 600 H (75-99) mg/dL Iron 9 L (50-170) ug/dL % Saturation 2.39 L (12.00-45.00) Alkaline Phosphatase (38-126) U/L 10/10/20 10/10/20 10/11/20 Range/Units 17:40 20:19 06:19 WBC (3.8-10.6) k/uL RBC (3.80-5.40) m/uL Hgb (11.4-16.0) gm/dL Hct (34.0-46.0) % MCH (25.0-35.0) pg MCHC (31.0-37.0) g/dL RDW (11.5-15.5) % Neutrophils # (1.3-7.7) k/uL Lymphocytes # (1.0-4.8) k/uL Sodium 131 L (137-145) mmol/L Chloride 85 L (98-107) mmol/L Carbon Dioxide 42 H* (22-30) mmol/L BUN 64 H (7-17) mg/dL Creatinine 1.34 H (0.52-1.04) mg/dL Glucose 444 H (74-99) mg/dL POC Glucose (mg/dL) 499 H 575 H (75-99) mg/dL Iron (50-170) ug/dL % Saturation (12.00-45.00) Alkaline Phosphatase 134 H (38-126) U/L 10/11/20 10/11/20 Range/Units 06:19 06:35 WBC 12.4 H (3.8-10.6) k/uL RBC 3.35 L (3.80-5.40) m/uL Hgb 7.4 L (11.4-16.0) gm/dL Hct 27.4 L (34.0-46.0) % MCH 22.1 L (25.0-35.0) pg MCHC 27.0 L (31.0-37.0) g/dL RDW 18.6 H (11.5-15.5) % Neutrophils # (1.3-7.7) k/uL Lymphocytes # (1.0-4.8) k/uL Sodium (137-145) mmol/L Chloride (98-107) mmol/L Carbon Dioxide (22-30) mmol/L BUN (7-17) mg/dL Creatinine (0.52-1.04) mg/dL Glucose (74-99) mg/dL POC Glucose (mg/dL) 469 H (75-99) mg/dL Iron (50-170) ug/dL % Saturation (12.00-45.00) Alkaline Phosphatase (38-126) U/L
[2020-10-11] MEDS: TIOTROPIUM 2.5 MCG INHALER INHALATION SCH (11:56)
--- NOTE | 2020-10-11 12:11 | XR ---
EXAMINATION TYPE: XR chest 2V DATE OF EXAM: 10/11/2020 COMPARISON: Chest x-ray October 06, 2020. Chest CT 2 days ago. HISTORY: Increasing shortness of breath TECHNIQUE: Frontal and lateral views of the chest are obtained. FINDINGS: Persistent cardiomegaly. Reticular interstitial changes bilaterally redemonstrated. No ple ural effusion or pneumothorax seen bilaterally. The osseous structures remain intact. IMPRESSION: Suspect persistent CHF exacerbation as there is cardiomegaly with suspected mild bilater al interstitial edema. Correlate clinically. No significant change from most recent studies.
[2020-10-11 12:13] LABS: Glucose,Whole Blood 486 mg/dL (75-99)
[2020-10-11] MEDS: FUROSEMIDE 10 MG/ML 4 ML VIAL IV SCH ×3 (12:57→21:35)
[2020-10-11] MEDS: IPRATROPIUM-ALBUTEROL 3 ML NEB INHALATION PRN ×2 (15:49→20:12)
[2020-10-11] MEDS: ONDANSETRON 4 MG/2 ML VIAL IVP PRN (17:42)
[2020-10-11 18:06] LABS: Glucose,Whole Blood 457 mg/dL (75-99)
[2020-10-11] MEDS: SENNOSIDES-DOCUSATE SODIUM 1 EACH TAB PO SCH (18:09)
--- NOTE | 2020-10-11 19:08 | P.PN ---
Subjective Progress Note Date: 10/11/20 This is a 65-year-old female patient of Dr. Deras with past medical history significant for heart failure, COPD, chronic hypoxic respiratory failure on home O2 at 2 L nasal cannula and obstructive sleep apnea on BiPAP support at bedtime, diabetes mellitus type 2 with diabetic neuropathy, chronic diastolic heart failure, valvular heart disease, hypertension, hypothyroidism, GI bleed with anemia. Patient has had multiple admissions and multiple endoscopies for GIB and anemia. 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 The bleeding seems to be stable since that time. They, patient presented to the hospital due to chest pain in the midsternal area across her chest seems to be worse after she eats it was hurting after she had breakfast this morning. She complains of shortness of breath with exertion that is worse than the last time she was admitted. She states her stools have been normal. She does complain of abdominal distention and fullness after eating. Patient presented to the [facility] emergency center for evaluation. Patient was found to be afebrile, heart rate 71, blood pressure 140/61, pulse ox 100% on oxygen. WBC 14.8, hemoglobin 8.2 which is stable for this patient. Platelet count is 310. Sodium 138, potassium 4.2, chloride 97, CO2 35, BUN 39 and creatinine 1.34 which is also patient's baseline. Blood sugar 207. D-dimer 0.89. Alkaline phosphatase 160. Troponin negative. Pro- BNP 2570. Lactic acid 1.0. Coronavirus PCR not detected. EKG sinus rhythm with nonspecific ST-T wave changes. Chest x-ray reveals vascular and int erstitial markings prominent in the mid to lower lungs bilaterally similar to previous. Consider heart failure versus interstitial infiltrate. CAT scan of the abdomen and pelvis without contrast revealed hepatomegaly and 19.6 cm. Correlate with LFTs and risk factors for underlying hepatocellular disease. 1.3 cm right common iliac chain lymph node is enlarged. Left inguinal femoral chain lymph nodes are borderline enlarged. Findings probably reactive postinflammatory. 1.1 cm indeterminate right adrenal nodule. Moderate stool burden and generalized colonic diverticulosis. Tiny hiatal hernia. Consult was admitted for cardiology and patient has been seen by Dr. Yang for progressive dyspnea secondary to combination of COPD and element of heart failure with preserved systolic function. Plan to continue IV diuretics for 24 hours. 10/07: She has been afebrile, heart rate 86, blood pressure 101/46, pulse ox 90% on 4 L nasal cannula. WBC 11, hemoglobin 7.9, platelet count 319. Sodium 138, potassium 4.3, chloride 95, CO2 37, BUN 31 and creatinine 1.02. Blood sugars have been running 185 up to 405 at its 4 PM yesterday. Patient missed her morning dose of Levemir yesterday. Patient underwent gastric emptying study which was negative for gastroparesis. Patient is continued on IV Lasix at 40 mg every 12 hours. 10/08: Patient is afebrile, heart rate 75, blood pressure 146/57, pulse ox 92% on 3 L nasal cannula. Repeat blood work reveals sodium 138, potassium 4.9, chloride 96, CO2 37, BUN 38 creatinine 1.13. Blood sugars have been running b etween 211 and 307. Hemoglobin A1c from July is 5.2. Patient has increased dyspnea today along with a dry cough. She complains of shortness of breath with minimal activity, positive orthopnea. Patient was having issues with constipation and last evening and Senokot was added and she states she has had lots of bowel movements. Cardiology increase Lasix every 8 hours. Also Solu- Medrol added. 10/09: Pulse ox is 94% on 3 L nasal cannula. Patient has been afebrile, heart rate 86, blood pressure 134/63. Patient continues to have shortness of breath and nonproductive cough. She is wheezing. Positive shortness of breath with minimal activity. CTA of the chest has been ordered to rule out PE. Blood sugar at 2130 was 604 and also high yesterday afternoon, patient received additional N ovoLog on top of scale. Levemir 42 units subcu ordered this morning versus her normal dose of 30. Scheduled NovoLog will be increased to 6 units with meals. Solu-Medrol will be decreased to every 12 hours Repeat blood work reveals sodium 131, potassium 5.9, chloride 89, CO2 38, BUN 41 and creatinine 1.15. 10/10: CTA of the chest was suboptimal study without central pulmonary embolism. Cardiomegaly with mild interstitial and alveolar edema raises concern for heart failure exacerbation. No focal consolidation. She is currently on Lasix 40 mg IV 3 times daily. She continues to have shortness of breath, dyspnea with exertion and lower extremity edema. Lasix will be decreased tomorrow to 60 mg oral twice daily. Blood sugars continue to be in the 400s and 500s. She has received additional NovoLog plus scale. Levemir will be increased to 45 units twice daily and scheduled NovoLog increased to 12 units with meals and at at bedtime. Solu-Medrol was discontinued and patient to start prednisone tomorrow. Pulse ox is 95% on 3 L nasal cannula. She's been afebrile, heart rate 60, blo od pressure 131/54. Repeat blood work reveals WBC 15.8, hemoglobin 7.5, platelet count 388. Sodium was 129, potassium 6.1 and one dose of Kayexalate 30 mg ordered, oral prednisone scheduled was discontinued and Aldactone decreased to 12.5 mg daily. Chloride 84, CO2 39, BUN 57 and creatinine 1.41. /17 and patient examined bedside. Continue have shortness of breath on exertion. For some mild is continued at 40 IV every 8 hours per cardiology. On evaluation as patient's blood work today potassium is improved to 5.1 chloride is 85 bicarb 42 BUN 64 creatinine 1.34 glucose remains high at 444. Lantus increased to 50 twice a day today and NovoLog increased to 15 units with meals continue and follow with sliding scale. Solu-Medrol switched to prednisone 40 mg daily the patient labs tomorrow REVIEW OF SYSTEMS Constitutional: No fever, no chills, no night sweats. No weight change. Reports weakness and fatigue no lethargy. No daytime sleepiness. EENT: No headache. No blurred vision or double vision, no loss of vision. No loss of Hearing, no ringing in the ears, no dizziness. No nasal drainage or congestion. No epistaxis. No sore throat. Lungs: Reports shortness of breath, reports cough, no sputum production. Reports wheezing. Reports dyspnea with exertion. Cardiovascular: No chest pain, no lower extremity edema. No palpitations. No paroxysmal nocturnal dyspnea. No orthopnea. No lightheadedness or dizziness. No syncopal episodes. Abdominal: Reports upper abdominal pain. No nausea, vomiting. no diarrhea. Reports constipation. No bloody reports tarry stools. Denies bright red bleeding. no loss of appetite. Genitourinary: No dysuria, increased frequency, urgency. No urinary retention. Musculoskeletal: No myalgias. No muscle weakness, no gait dysfunction, no frequent falls. No back pain. No neck pain. Integumentary: No wounds, no lesions. No rash or pruritus. No unusual bruising. No change in hair or nails. Neurologic: No aphasia. No facial droop. No change in mentation. No head injury. No headache. No paralysis. No paresthesia. Psychiatric: No depression. No anxiety. Endocrine: Reported reports abnormal blood sugars. No weight change. Objective - Vital Signs Vital signs: Vital Signs Temp 97.9 F 10/11/20 14:05 Pulse 70 10/11/20 16:00 Resp 18 10/11/20 14:05 BP 112/55 10/11/20 14:05 Pulse Ox 96 10/11/20 14:05 Intake & Output 10/10/20 10/11/20 10/11/20 18:59 06:59 18:59 Intake Total 600 600 Output Total 600 600 Balance -600 600 0 Weight 114.759 kg 113.5 kg Intake: Oral 600 600 Output: Urine 600 600 Other: Voiding Method Toilet Toilet Toilet # Voids 4 # Bowel Movements 2 - Exam PHYSICAL EXAMINATION Gen: This is a 65-year-old female. She is resting and recliner and appears to be comfortable at rest. HEENT: Head is atraumatic, normocephalic. Pupils equal, round. Sclerae is anict sarah. Conjunctiva pale. NECK: Supple. No JVD. No lymphadenopathy. No thyromegaly. LUNGS: Lateral wheezing. Decreased air entry bilaterally No intercostal retractions. HEART: Regular rate and rhythm. Systolic murmur. ABDOMEN: Soft. Bowel sounds are present. No masses. No tenderness. EXTREMITIES: No pedal edema. No calf tenderness. Dorsalis pedis +2 bilaterally. NEUROLOGICAL: Patient is awake, alert and oriented x3. Cranial nerves 2 through 12 are grossly intact. - Labs CBC & Chem 7: 10/11/20 06:19 10/11/20 06:19 Labs: Abnormal Lab Results - Last 24 Hours (Table) 10/10/20 10/10/20 10/11/20 Range/Units 08:50 20:19 06:19 WBC (3.8-10.6) k/uL RBC (3.80-5.40) m/uL Hgb (11.4-16.0) gm/dL Hct (34.0-46.0) % MCH (25.0-35.0) pg MCHC (31.0-37.0) g/dL RDW (11.5-15.5) % Sodium 131 L (137-145) mmol/L Chloride 85 L (98-107) mmol/L Carbon Dioxide 42 H* (22-30) mmol/L BUN 64 H (7-17) mg/dL Creatinine 1.34 H (0.52-1.04) mg/dL Glucose 444 H (74-99) mg/dL POC Glucose (mg/dL) 575 H (75-99) mg/dL Iron 9 L (50-170) ug/dL % Saturation 2.39 L (12.00-45.00) Alkaline Phosphatase 134 H (38-126) U/L 10/11/20 10/11/20 10/11/20 Range/Units 06:19 06:35 12:11 WBC 12.4 H (3.8-10.6) k/uL RBC 3.35 L (3.80-5.40) m/uL Hgb 7.4 L (11.4-16.0) gm/dL Hct 27.4 L (34.0-46.0) % MCH 22.1 L (25.0-35.0) pg MCHC 27.0 L (31.0-37.0) g/dL RDW 18.6 H (11.5-15.5) % Sodium (137-145) mmol/L Chloride (98-107) mmol/L Carbon Dioxide (22-30) mmol/L BUN (7-17) mg/dL Creatinine (0.52-1.04) mg/dL Glucose (74-99) mg/dL POC Glucose (mg/dL) 469 H 486 H (75-99) mg/dL Iron (50-170) ug/dL % Saturation (12.00-45.00) Alkaline Phosphatase (38-126) U/L 10/11/20 Range/Units 18:04 WBC (3.8-10.6) k/uL RBC (3.80-5.40) m/uL Hgb (11.4-16.0) gm/dL Hct (34.0-46.0) % MCH (25.0-35.0) pg MCHC (31.0-37.0) g/dL RDW (11.5-15.5) % Sodium (137-145) mmol/L Chloride (98-107) mmol/L Carbon Dioxide (22-30) mmol/L BUN (7-17) mg/dL Creatinine (0.52-1.04) mg/dL Glucose (74-99) mg/dL POC Glucose (mg/dL) 457 H (75-99) mg/dL Iron (50-170) ug/dL % Saturation (12.00-45.00) Alkaline Phosphatase (38-126) U/L Assessment and Plan Plan: ASSESSMENT AND PLAN 1. Chronic hypoxic respiratory failure with progressive dyspnea secondary to COPD and acute on chronic diastolic heart failure. Continue Lasix 40 mg IV every 8 hours and transition to oral Lasix tomorrow and 60 mg twice daily, continue metolazone 2.5 mg on Tuesday. Aldactone decreased to 12.5 mg daily. Solu-Medrol transition to oral prednisone . CTA of the chest ruled out pulmonary embolism. 2. Upper abdominal/lower chest pain with abdominal bloating and early satiety, ruled out gastroparesis. Most likely secondary to constipation and fecal burden. Continue Senokot 2 daily at 1800. 3. 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 Continue Protonix 40 mg oral twice daily. Hemoglobin is stable. 4. Diabetes mellitus type 2 with diabetic neuropathy uncontrolled with hyperglycemia secondary to steroids. Levemir increased to 50 units twice daily, scheduled NovoLog increased to 15 units before meals and at bedtime, continue NovoLog scale before meals and at bedtime. Continue Januvia 100 mg daily. Hemoglobin A1c in July was 5.2. 5. Diabetic neuropathy. Continue Lyrica 200 milligrams twice daily. 6. COPD without exacerbation. Continue DuoNeb treatment 4 times daily as needed, Pulmicort 1 mg twice daily, Singulair 10 mg at bedtime. 7. Hypertension. Continue Lasix, Lopressor 100 mg twice daily. 8. Hyperlipidemia. Continue Lipitor 40 mg daily. 9. Obstructive sleep apnea. Continue BiPAP at night. 10. Hypothyroidism. Continue levothyroxine 125 g daily. Restless leg syndrome. Continue Requip 2 mg twice daily. 11. Recurrent depression. Continue Prozac 20 mg daily. 12. Oral thrush. Diflucan 100 mg daily. 13. GI prophylaxis. Protonix twice daily. 14. DVT prophylaxis. Heparin subcu every 12 hours. 15 Acute kidney injury. Lasix continues to be iv Aldactone decreased, recheck renal function and electrolytes in the morning. 16. Hyperkalemia.resolved Status post Kayexalate 30 A 1, discontinue potassium supplement and decrease Aldactone.
[2020-10-11 20:47] LABS: Glucose,Whole Blood 514 mg/dL (75-99)
[2020-10-11] MEDS: MONTELUKAST 10 MG TAB PO SCH (21:27)
[2020-10-11] MEDS: ALPRAZolam 0.25 MG TAB PO PRN (21:37)
[2020-10-12 05:23] LABS: Albumin 3.7 g/dL (3.5-5.0); Calcium 9.1 mg/dL (8.4-10.2); Potassium 4.9 mmol/L (3.5-5.1); Total Bilirubin 0.3 mg/dL (0.2-1.3); Total Protein 6.8 g/dL (6.3-8.2)
[2020-10-12] MEDS: LEVOTHYROXINE 125 MCG TAB PO SCH (06:06)
[2020-10-12] MEDS: Acetaminophen-Codeine 300-30mg TAB PO PRN ×2 (06:06→20:25)
[2020-10-12 06:50] LABS: Glucose,Whole Blood 347 mg/dL (75-99)
[2020-10-12] MEDS: PANTOPRAZOLE 40 MG TABLET PO SCH ×2 (06:52→17:54)
[2020-10-12] MEDS: INSULIN DETEMIR (LEVEMIR) 100 UNIT/ML SYR SQ SCH ×2 (06:53→20:23)
[2020-10-12] MEDS: INSULIN ASPART (NovoLOG) 100 UNIT/ML VIAL SQ SCH ×8 (06:53→20:23)
[2020-10-12] MEDS: predniSONE 20 MG TAB PO SCH (08:10)
[2020-10-12] MEDS: guaiFENesin 600 MG TABLET.ER PO SCH ×2 (08:11→20:22)
[2020-10-12] MEDS: FLUCONAZOLE 100 MG TAB PO SCH (08:11)
[2020-10-12] MEDS: METOPROLOL TARTRATE 50 MG TAB PO SCH (08:11)
[2020-10-12] MEDS: PREGABALIN 100 MG CAP PO SCH ×2 (08:11→20:22)
[2020-10-12] MEDS: FLUoxetine HCL 20 MG CAP PO SCH (08:11)
[2020-10-12] MEDS: HEPARIN SODIUM,PORCINE/PF 5,000 UNIT/0.5 ML SYRINGE SQ SCH ×2 (08:12→20:23)
[2020-10-12] MEDS: SPIRONOLACTONE 25 MG TAB PO SCH (08:15)
[2020-10-12] MEDS: LINAGLIPTIN 5 MG TABLET PO SCH (08:15)
[2020-10-12] MEDS: ISOSORBIDE MONONITRATE ER 30 MG TAB.ER.24H PO SCH (08:15)
[2020-10-12] MEDS: FUROSEMIDE 10 MG/ML 4 ML VIAL IV SCH (08:40)
[2020-10-12] MEDS: BUDESONIDE 1 MG/2 ML NEBU INHALATION SCH ×2 (09:27→19:59)
[2020-10-12] MEDS: TIOTROPIUM 2.5 MCG INHALER INHALATION SCH (09:28)
[2020-10-12] MEDS ORDERED: acetaZOLAMIDE 250 MG TAB PO SCH (10:00)
--- NOTE | 2020-10-12 11:43 | P.PN ---
Subjective This is a pleasant 65 showed female past medical history significant for COPD, anemia, aortic stenosis, morbid obesity, diabetes mellitus, dyslipidemia and hypertension. She follows in the office with Dr. Samayoa. She is seen and examined sitting up in bed in no acute distress. She had over 3L of urine output in the last 24 hrs. She continues to have dyspnea on exertion, but it has improved. Blood pressure 110/66 heart rate 73 afebrile maintaining oxygen saturation on nasal cannula. Laboratory data reviewed, sodium 133, potassium 4 .9, creatinine 1.52. Her GENERAL: Well-appearing, well-nourished and in no acute distress. NECK: Supple without JVD or thyromegaly. LUNGS: Bibasilar rales, no wheezes or rhonchi. Respiration equal and unlabored. HEART: Regular rate and rhythm with systolic ejection murmur at the base, no rubs or gallops. S1 and S2 heard. EXTREMITIES: Normal range of motion, 1+ pitting edema bilaterally. No clubbing or cyanosis. Peripheral pulses intact. ASSESSMENT Acute on chronic diastolic heart failure COPD Leukocytosis Acute kidney injury, improved Chronic anemia with recent history of active bleeding noted on capsule study Hypertension Dyslipidemia Diabetes mellitus Aortic stenosis Morbid obesity, BMI 48 PLAN She is having worsening renal function and contraction alkalosis. We will add diamox daily and transition to oral diuretics. We will ask for pulmonary evaluation. Consider blood transfusion. Follow renal function in the morning. Nurse Practitioner note has been reviewed, I agree with a documented findings and plan of care. Patient was seen and examined. Objective - Vital Signs Vital signs: Vital Signs Temp 97.6 F 10/12/20 08:00 Pulse 73 10/12/20 08:00 Resp 16 10/12/20 08:00 BP 110/66 10/12/20 08:00 Pulse Ox 99 10/12/20 08:00 Intake & Output 10/11/20 10/12/20 10/12/20 18:59 06:59 18:59 Intake Total 600 500 600 Output Total 600 2650 600 Balance 0 -2150 0 Weight 112.2 kg Intake: Oral 600 500 600 Output: Urine 600 2650 600 Other: Voiding Method Toilet Toilet # Bowel Movements 1 - Labs CBC & Chem 7: 10/11/20 06:19 10/12/20 04:29 Labs: Abnormal Lab Results - Last 24 Hours (Table) 10/11/20 10/11/20 10/11/20 Range/Units 12:11 18:04 20:45 Sodium (137-145) mmol/L Chloride (98-107) mmol/L Carbon Dioxide (22-30) mmol/L BUN (7-17) mg/dL Creatinine (0.52-1.04) mg/dL Glucose (74-99) mg/dL POC Glucose (mg/dL) 486 H 457 H 514 H (75-99) mg/dL Alkaline Phosphatase (38-126) U/L 10/12/20 10/12/20 Range/Units 04:29 06:49 Sodium 133 L (137-145) mmol/L Chloride 82 L (98-107) mmol/L Carbon Dioxide 46 H* (22-30) mmol/L BUN 73 H (7-17) mg/dL Creatinine 1.52 H (0.52-1.04) mg/dL Glucose 340 H (74-99) mg/dL POC Glucose (mg/dL) 347 H (75-99) mg/dL Alkaline Phosphatase 133 H (38-126) U/L
[2020-10-12 12:12] LABS: Glucose,Whole Blood 302 mg/dL (75-99)
[2020-10-12] MEDS: IPRATROPIUM-ALBUTEROL 3 ML NEB INHALATION PRN ×2 (13:00→19:59)
[2020-10-12 14:29] LABS: ABG Base Excess 17.4 mmol/L; ABG Oxygen Saturation 88.5 % (94-97); ABG PH 7.34 (7.35-7.45); ABG TCO2 46 mmol/L (19-24); Allen Test Performed? Yes
[2020-10-12 14:30] LABS: ABG PCO2 81 mmHg (35-45)
[2020-10-12 14:31] LABS: ABG PO2 59 mmHg (83-108)
[2020-10-12 14:32] LABS: ABG HCO3 43 mmol/L (21-25)
[2020-10-12] MEDS ORDERED: FUROSEMIDE 20 MG TAB PO SCH (16:00)
--- NOTE | 2020-10-12 16:04 | P.CNPUL ---
History of Present Illness Consult date: 10/12/20 Reason for consult: dyspnea History of present illness: 65-year-old female patient was hospitalized for shortness of breath. The patient was originally admitted to the hospital on 09/26/2020 on seeing this patient in consultation for dyspnea today. She is known to have multiple medical problems and comorbidities. 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 The patient is morbidly obese and she has COPD along with chronic hypoxic respiratory failure and she uses a nocturnal BiPAP device. She has obstructive sleep apnea. She has hypothyroidism and chronic edema lower extremities. During this current admission, the patient presented with some shortness of breath and a CT angiogram of the chest was done on 10/09/2020 and the CTA showed suboptimal study regarding the possibility of pulmonary embolism, nevertheless, there was cut or megaly and mild interstitial and alveolar edema concerning for underlying congestion heart failure. The chest x-rays also showing cardiomegaly with pulmonary vascular congestion. Patient is currently o n Lasix 60 mg by mouth twice a day. The patient is also on prednisone 40 mg by mouth daily as part of a burst taper. I see that she was also taking Diamox and currently the Diamox is on hold. She'll DuoNeb neb achievements [id number]. Outpatient medications of been ordered resume. Her cre atinine and creatinine is at 1.5 and the patient has a component of an acute kidney injury knowing that her baseline renal function was stable. She was also on Zaroxolyn which was also placed on hold Review of Systems Constitutional: No fever, no chills, no night sweats. No weight change. Reports weakness, Reports fatigue. No daytime sleepiness. EENT: No headache. No blurred vision or double vision, no loss of vision. No loss of Hearing, no ringing in the ears, no dizziness. No nasal drainage or congestion. No epistaxis. No sore throat. Lungs: Reports shortness of breath, reports cough, no sputum production. No wheezing. No hemoptysis. Cardiovascular: No chest pain, reports lower extremity edema. No palpitations. No paroxysmal nocturnal dyspnea. No orthopnea. No lightheadedness or dizziness. No syncopal episodes. Abdominal: No abdominal pain. No nausea, vomiting. No diarrhea. No constipation. Reports black stools. Reports loss of appetite. Genitourinary: No dysuria, increased frequency, urgency. No urinary retention. Musculoskeletal: No myalgias. Reports muscle weakness, no gait dysfunction, no frequent falls. No back pain. No neck pain. Integumentary: No wounds, no lesions. No rash or pruritus. No unusual bruising. No change in hair or nails. Neurologic: No aphasia. No facial droop. No change in mentation. No head injury. No headache. No paralysis. No paresthesia. Psychiatric: No depression. No anxiety. No mood swings. Endocrine: No abnormal blood sugars. No weight change. No excessive sweating or thirst. No cold intolerance. Past Medical History Past Medical History: Heart Failure, COPD, Diabetes Mellitus, GI Bleed, Hyperlipidemia, Hypertension, Myocardial Infarction (CA), Pneumonia, Respiratory Disorder, Sleep Apnea/CPAP/BIPAP, Thyroid Disorder Additional Past Medical History / Comment(s): Pt recently admitted to [facility] on 08/26/20 with acute on chronic GI bleed with acute blood loss anemia 2ndary to duodenal angiectasis with cauterization. Other hx: IDDM type II< neuropathy bilateral feet/legs and occasionally in the hands, lower GI bleed/anemia, chronic hypoxic respiratory failure with oxygen at 2L/NC ATC, [place] but no longer wearing her bipap, chronic bilateral lower leg edema, benign colon polyp, chronic low back pain past several months, RLS, hypothyroid. Last Myocardial Infarction Date:: 2018 History of Any Multi-Drug Resistant Organisms: None Reported Date of last positivie culture/infection: 04/2019 MDRO Source:: URINE Past Surgical History: Section, Cholecystectomy, Heart Catheterization, Hysterectomy, Orthopedic Surgery Additional Past Surgical History / Comment(s): Multiple endoscopies-EGDs with ablation and cauterization/colonoscopies, endo capsule, bilateral cataract removals/lens implants. Past Anesthesia/Blood Transfusion Reactions: Previous Problems w/ Anesthesia Additional Past Anesthesia/Blood Transfusion Reaction / Comment(s): ALLERGY TO CISATRACURIUM- FACE TURNED RED/SWOLLEN Smoking Status: Former smoker - Past Family History Mother Family Medical History: Renal Disease Additional Family Medical History / Comment(s): Mother was on Hemodilaysis Father Family Medical History: Cancer Additional Family Medical History / Comment(s): Father of leukemia at the age of 82 yrs. Medications and Allergies Home Medications Medication Instructions Recorded Confirmed Type Atorvastatin [Lipitor] 40 mg PO DAILY tab 08/03/20 10/06/20 Rx Budesonide-Formot 160-4.5 Mcg 2 puff INHALATION RT-BID puff 08/03/20 10/06/20 Rx [Symbicort 160-4.5 Mcg Inhaler] FLUoxetine HCL [PROzac] 20 mg PO DAILY cap 08/03/20 10/06/20 Rx Isosorbide Mononitrate ER [Imdur] 30 mg PO DAILY tab.er.24h 08/03/20 10/06/20 Rx Levothyroxine Sodium [Synthroid] 125 mcg PO DAILY@0630 tab 08/03/20 10/06/20 Rx Montelukast [Singulair] 10 mg PO HS tab 08/03/20 10/06/20 Rx SILVER sulfADIAZINE CREAM 1 applic TOPICAL DAILY applic 08/03/20 10/06/20 Rx [Silvadene Cream] Spironolactone [Aldactone] 25 mg PO DAILY tab 08/03/20 10/06/20 Rx methocarbamoL [Robaxin] 500 mg PO BID PRN tab 08/03/20 10/06/20 Rx rOPINIRole HCL [Requip] 2 mg PO BID tab 08/03/20 10/06/20 Rx Pantoprazole Sodium [Protonix] 40 mg PO AC-BID #60 tablet.dr 08/08/20 10/06/20 Rx Potassium Chloride ER [K-Dur 10] 10 meq PO BID #30 tab 08/08/20 10/06/20 Rx metOLazone [Zaroxolyn] 2.5 mg PO MoWeFr@0900 #30 tab 08/08/20 10/06/20 Rx Furosemide [Lasix] 40 mg PO BID@0800,1400 08/26/20 10/06/20 History INSULIN ASPART (NovoLOG) [NovoLOG See Protocol SQ ACHS 08/26/20 10/06/20 History (formulary)] Insulin Glargine,Hum.rec.anlog 30 units SQ BID 08/26/20 10/06/20 History [Toswapna Solostar] Ipratropium-Albuterol Nebulize 3 ml INHALATION RT-QID PRN 08/26/20 10/06/20 History [Duoneb 0.5 mg-3 mg/3 ml Soln] Pregabalin [Lyrica] 200 mg PO BID 08/26/20 10/06/20 History Sennosides-Docusate Sodium 1 tab PO BID PRN 08/26/20 10/06/20 History [Senokot-S] Tiotropium 2.5 Mcg/Puff [Spiriva 2 puff INHALATION RT-DAILY 08/26/20 10/06/20 History Respimat 2.5 Mcg] sitaGLIPtin PHOSPHATE [Januvia] 100 mg PO DAILY 08/26/20 10/06/20 History Metoprolol Tartrate [Lopressor] 100 mg PO BID 10/10/20 10/10/20 History Allergies Allergy/AdvReac Type Severity Reaction Status Date / Time cisatracurium [From Nimbex] Allergy Rash/Hives Verified 10/07/20 00:44 Physical Exam Vitals: Vital Signs Temp Pulse Pulse Pulse Resp BP BP 10/12/20 14:16 72 10/12/20 13:50 73 20 82/44 10/12/20 12:57 20 10/12/20 08:00 97.6 F 73 16 110/66 10/12/20 02:00 98.3 F 77 22 113/52 10/11/20 20:20 72 10/11/20 20:14 76 10/11/20 20:00 20 10/11/20 19:40 98.3 F 74 18 135/62 10/11/20 16:00 70 10/11/20 15:51 63 Pulse Ox 10/12/20 14:16 93 L 10/12/20 13:50 92 L 10/12/20 12:57 92 L 10/12/20 08:00 99 10/12/20 02:00 98 10/11/20 20:20 10/11/20 20:14 10/11/20 20:00 10/11/20 19:40 94 L 10/11/20 16:00 10/11/20 15:51 Intake and Output 10/11/20 10/12/20 10/12/20 22:59 06:59 14:59 Intake Total 500 840 Output Total 1999 1250 1200 Balance -1999 -750 -360 Intake: Oral 500 840 Output: Urine 1999 1250 1200 Other: Voiding Method Toilet # Bowel Movements 1 1 Weight 112.2 kg GENERAL EXAM: Alert, pleasant, obese 65-year-old female patient, on 4 L nasal cannula, comfortable in no apparent distress. HEAD: Normocephalic. EYES: Normal reaction of pupils, equal size. NOSE: Clear with pink turbinates. THROAT: No erythema or exudates. NECK: No masses, no JVD. CHEST: No chest wall deformity. LUNGS: Equal air entry with bilateral end expiratory wheeze, diminished. CVS: S1 and S2 normal with no audible murmur, regular rhythm. ABDOMEN: No hepatosplenomegaly, normal bowel sounds, no guarding or rigidity. SPINE: No scoliosis or deformity SKIN: No rashes CENTRAL NERVOUS SYSTEM: No focal deficits, tone is normal in all 4 extremities. EXTREMITIES: There is 1-2+ peripheral edema. No clubbing, no cyanosis. Peripheral pulses are intact. Results - Laboratory Findings CBC and BMP: 10/11/20 06:19 10/12/20 04:29 PT/INR, D-dimer PT 9.6 sec (9.0-12.0) 10/06/20 00:20 INR 0.9 (<1.2) 10/06/20 00:20 D-Dimer 0.89 mg/L FEU (<0.60) H 10/06/20 00:20 Abnormal lab findings: Abnormal Labs 10/06/20 10/06/20 10/06/20 00:20 00:20 00:20 WBC 14.8 H RBC 3.49 L Hgb 8.2 L Hct 27.9 L MCV MCH 23.5 L MCHC 29.4 L RDW 19.2 H Neutrophils # 11.6 H Lymphocytes # D-Dimer 0.89 H Sodium Potassium Chloride 97 L Carbon Dioxide 35 H BUN 39 H Creatinine 1.34 H Glucose 207 H POC Glucose (mg/dL) Iron % Saturation Alkaline Phosphatase 160 H 10/06/20 10/06/20 10/06/20 09:08 16:51 22:03 WBC RBC Hgb Hct MCV MCH MCHC RDW Neutrophils # Lymphocytes # D-Dimer Sodium Potassium Chloride Carbon Dioxide BUN Creatinine Glucose POC Glucose (mg/dL) 251 H 405 H 290 H Iron % Saturation Alkaline Phosphatase 10/07/20 10/07/20 10/07/20 06:27 06:32 06:32 WBC 11.0 H RBC 3.40 L Hgb 7.9 L Hct 27.2 L MCV 79.8 L MCH 23.2 L MCHC 29.1 L RDW 19.1 H Neutrophils # Lymphocytes # D-Dimer Sodium Potassium Chloride 95 L Carbon Dioxide 37 H BUN 31 H Creatinine Glucose 185 H POC Glucose (mg/dL) 204 H Iron % Saturation Alkaline Phosphatase 10/07/20 10/07/20 10/07/20 11:56 17:11 20:17 WBC RBC Hgb Hct MCV MCH MCHC RDW Neutrophils # Lymphocytes # D-Dimer Sodium Potassium Chloride Carbon Dioxide BUN Creatinine Glucose POC Glucose (mg/dL) 225 H 307 H 251 H Iron % Saturation Alkaline Phosphatase 10/08/20 10/08/20 10/08/20 05:55 06:43 12:27 WBC RBC Hgb Hct MCV MCH MCHC RDW Neutrophils # Lymphocytes # D-Dimer Sodium Potassium Chloride 96 L Carbon Dioxide 37 H BUN 38 H Creatinine 1.13 H Glucose 211 H POC Glucose (mg/dL) 232 H 365 H Iron % Saturation Alkaline Phosphatase 10/08/20 10/08/20 10/08/20 17:03 20:37 21:40 WBC RBC Hgb Hct MCV MCH MCHC RDW Neutrophils # Lymphocytes # D-Dimer Sodium Potassium Chloride Carbon Dioxide BUN Creatinine Glucose 604 H* POC Glucose (mg/dL) 441 H >600 H Iron % Saturation Alkaline Phosphatase 10/09/20 10/09/20 10/09/20 06:28 06:36 09:49 WBC RBC Hgb Hct MCV MCH MCHC RDW Neutrophils # Lymphocytes # D-Dimer Sodium 131 L Potassium 5.9 H Chloride 89 L Carbon Dioxide 38 H BUN 41 H Creatinine 1.15 H Glucose 476 H POC Glucose (mg/dL) 528 H 574 H Iron % Saturation Alkaline Phosphatase 10/09/20 10/09/20 10/09/20 13:10 13:48 17:12 WBC RBC Hgb Hct MCV MCH MCHC RDW Neutrophils # Lymphocytes # D-Dimer Sodium 130 L Potassium 5.8 H Chloride 88 L Carbon Dioxide 37 H BUN 43 H Creatinine 1.27 H Glucose 554 H* POC Glucose (mg/dL) 571 H 550 H Iron % Saturation Alkaline Phosphatase 10/09/20 10/10/20 10/10/20 21:20 06:41 08:50 WBC RBC Hgb Hct MCV MCH MCHC RDW Neutrophils # Lymphocytes # D-Dimer Sodium 129 L Potassium 6.1 H* Chloride 84 L Carbon Dioxide 39 H BUN 57 H Creatinine 1.41 H Glucose 560 H* POC Glucose (mg/dL) 481 H 512 H Iron % Saturation Alkaline Phosphatase 10/10/20 10/10/20 10/10/20 08:50 08:50 12:11 WBC 15.8 H RBC 3.36 L Hgb 7.5 L Hct 27.8 L MCV MCH 22.4 L MCHC 27.0 L RDW 19.0 H Neutrophils # 14.2 H Lymphocytes # 0.8 L D-Dimer Sodium Potassium Chloride Carbon Dioxide BUN Creatinine Glucose POC Glucose (mg/dL) 600 H Iron 9 L % Saturation 2.39 L Alkaline Phosphatase 10/10/20 10/10/20 10/11/20 17:40 20:19 06:19 WBC RBC Hgb Hct MCV MCH MCHC RDW Neutrophils # Lymphocytes # D-Dimer Sodium 131 L Potassium Chloride 85 L Carbon Dioxide 42 H* BUN 64 H Creatinine 1.34 H Glucose 444 H POC Glucose (mg/dL) 499 H 575 H Iron % Saturation Alkaline Phosphatase 134 H 10/11/20 10/11/20 10/11/20 06:19 06:35 12:11 WBC 12.4 H RBC 3.35 L Hgb 7.4 L Hct 27.4 L MCV MCH 22.1 L MCHC 27.0 L RDW 18.6 H Neutrophils # Lymphocytes # D-Dimer Sodium Potassium Chloride Carbon Dioxide BUN Creatinine Glucose POC Glucose (mg/dL) 469 H 486 H Iron % Saturation Alkaline Phosphatase 10/11/20 10/11/20 10/12/20 18:04 20:45 04:29 WBC RBC Hgb Hct MCV MCH MCHC RDW Neutrophils # Lymphocytes # D-Dimer Sodium 133 L Potassium Chloride 82 L Carbon Dioxide 46 H* BUN 73 H Creatinine 1.52 H Glucose 340 H POC Glucose (mg/dL) 457 H 514 H Iron % Saturation Alkaline Phosphatase 133 H 10/12/20 10/12/20 06:49 12:09 WBC RBC Hgb Hct MCV MCH MCHC RDW Neutrophils # Lymphocytes # D-Dimer Sodium Potassium Chloride Carbon Dioxide BUN Creatinine Glucose POC Glucose (mg/dL) 347 H 302 H Iron % Saturation Alkaline Phosphatase - Diagnostic Findings Chest x-ray: image reviewed Assessment and Plan Plan: 1 chronic dyspnea with chronic hypoxemic respiratory failure. Patient was treated for both COPD exacerbation and diastolic heart failure exacerbation. The patient was offered bronchodilators, steroids and the patient was also offered diuretics. She became prerenal in the creatinine is up to 1.5. The chest x-ray in the CAT scan of the chest was consistent with interstitial edema and fluid overload and the patient has been adequately diuresed and she has also developed some component of metabolic alkalosis. She is currently off the Diamox and she is also off the Zaroxolyn. She is taking oral Lasix. I think that the patient is over diuresed at this point in time. She is borderline hypotensive. She is prerenal. Blood gases are showing adequate acid-base status with a component of mild acute on top of chronic hypercapnic respiratory failure with a pH of 7.34 episodes of 81. Her serum bicarbonate is also at 46 which is quite high at this point in time probably contributing to her hypercapnia. 2 History of prior GI bleed, secondary to duodenal AV malformation. 3 chronic diastolic heart failure 4 COPD, with chronic chronic hypoxic and hypercapnic respiratory failure the patient is demented on oxygen at 4 L and she has home O2. 5 Morbid obesity. 6 History of diabetes mellitus. 7 Prior history of GI bleed. 8 History of pneumonia. 9 Chronic hypoxemic respiratory failure, on chronic nocturnal BiPAP therapy. 10 Diabetic neuropathy. 11 Valvular heart disease/aortic stenosis. 12 Obstructive sleep apnea syndrome. 13 History of hypothyroidism. 14 Previous history of heavy tobacco use. 15 History of depression. 16 chronic lower extremity edema and the patient is taking Lasix 40 mg twice a day Plan My recommendations to stop the Lasix The patient will dose of Diamox to improve her underlying metabolic alkalosis monitor the serum bicarbonate which should be in the order of 38-40 Utilize the night on BiPAP or even breath and a AVAPS that he was reassured at least a tidal volume of 400 Prednisone burst taper Continue to follow as needed, contact me if there is any change or worsening in her condition.
--- NOTE | 2020-10-12 17:03 | P.PN ---
Subjective Progress Note Date: 10/12/20 This is a 65-year-old female patient of Dr. Deras with past medical history significant for heart failure, COPD, chronic hypoxic respiratory failure on home O2 at 2 L nasal cannula and obstructive sleep apnea on BiPAP support at bedtime, diabetes mellitus type 2 with diabetic neuropathy, chronic diastolic heart failure, valvular heart disease, hypertension, hypothyroidism, GI bleed with anemia. Patient has had multiple admissions and multiple endoscopies for GIB and anemia. 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 The bleeding seems to be stable since that time. They, patient presented to the hospital due to chest pain in the midsternal area across her chest seems to be worse after she eats it was hurting after she had breakfast this morning. She complains of shortness of breath with exertion that is worse than the last time she was admitted. She states her stools have been normal. She does complain of abdominal distention and fullness after eating. Patient presented to the [facility] emergency center for evaluation. Patient was found to be afebrile, heart rate 71, blood pressure 140/61, pulse ox 100% on oxygen. WBC 14.8, hemoglobin 8.2 which is stable for this patient. Platelet count is 310. Sodium 138, potassium 4.2, chloride 97, CO2 35, BUN 39 and creatinine 1.34 which is also patient's baseline. Blood sugar 207. D-dimer 0.89. Alkaline phosphatase 160. Troponin negative. Pro- BNP 2570. Lactic acid 1.0. Coronavirus PCR not detected. EKG sinus rhythm with nonspecific ST-T wave changes. Chest x-ray reveals vascular and int erstitial markings prominent in the mid to lower lungs bilaterally similar to previous. Consider heart failure versus interstitial infiltrate. CAT scan of the abdomen and pelvis without contrast revealed hepatomegaly and 19.6 cm. Correlate with LFTs and risk factors for underlying hepatocellular disease. 1.3 cm right common iliac chain lymph node is enlarged. Left inguinal femoral chain lymph nodes are borderline enlarged. Findings probably reactive postinflammatory. 1.1 cm indeterminate right adrenal nodule. Moderate stool burden and generalized colonic diverticulosis. Tiny hiatal hernia. Consult was admitted for cardiology and patient has been seen by Dr. Yang for progressive dyspnea secondary to combination of COPD and element of heart failure with preserved systolic function. Plan to continue IV diuretics for 24 hours. 10/07: She has been afebrile, heart rate 86, blood pressure 101/46, pulse ox 90% on 4 L nasal cannula. WBC 11, hemoglobin 7.9, platelet count 319. Sodium 138, potassium 4.3, chloride 95, CO2 37, BUN 31 and creatinine 1.02. Blood sugars have been running 185 up to 405 at its 4 PM yesterday. Patient missed her morning dose of Levemir yesterday. Patient underwent gastric emptying study which was negative for gastroparesis. Patient is continued on IV Lasix at 40 mg every 12 hours. 10/08: Patient is afebrile, heart rate 75, blood pressure 146/57, pulse ox 92% on 3 L nasal cannula. Repeat blood work reveals sodium 138, potassium 4.9, chloride 96, CO2 37, BUN 38 creatinine 1.13. Blood sugars have been running b etween 211 and 307. Hemoglobin A1c from July is 5.2. Patient has increased dyspnea today along with a dry cough. She complains of shortness of breath with minimal activity, positive orthopnea. Patient was having issues with constipation and last evening and Senokot was added and she states she has had lots of bowel movements. Cardiology increase Lasix every 8 hours. Also Solu- Medrol added. 10/09: Pulse ox is 94% on 3 L nasal cannula. Patient has been afebrile, heart rate 86, blood pressure 134/63. Patient continues to have shortness of breath and nonproductive cough. She is wheezing. Positive shortness of breath with minimal activity. CTA of the chest has been ordered to rule out PE. Blood sugar at 2130 was 604 and also high yesterday afternoon, patient received additional N ovoLog on top of scale. Levemir 42 units subcu ordered this morning versus her normal dose of 30. Scheduled NovoLog will be increased to 6 units with meals. Solu-Medrol will be decreased to every 12 hours Repeat blood work reveals sodium 131, potassium 5.9, chloride 89, CO2 38, BUN 41 and creatinine 1.15. 10/10: CTA of the chest was suboptimal study without central pulmonary embolism. Cardiomegaly with mild interstitial and alveolar edema raises concern for heart failure exacerbation. No focal consolidation. She is currently on Lasix 40 mg IV 3 times daily. She continues to have shortness of breath, dyspnea with exertion and lower extremity edema. Lasix will be decreased tomorrow to 60 mg oral twice daily. Blood sugars continue to be in the 400s and 500s. She has received additional NovoLog plus scale. Levemir will be increased to 45 units twice daily and scheduled NovoLog increased to 12 units with meals and at at bedtime. Solu-Medrol was discontinued and patient to start prednisone tomorrow. Pulse ox is 95% on 3 L nasal cannula. She's been afebrile, heart rate 60, blo od pressure 131/54. Repeat blood work reveals WBC 15.8, hemoglobin 7.5, platelet count 388. Sodium was 129, potassium 6.1 and one dose of Kayexalate 30 mg ordered, oral prednisone scheduled was discontinued and Aldactone decreased to 12.5 mg daily. Chloride 84, CO2 39, BUN 57 and creatinine 1.41. 10/11 and patient examined bedside. Continue have shortness of breath on exertion. For some mild is continued at 40 IV every 8 hours per cardiology. On evaluation as patient's blood work today potassium is improved to 5.1 chloride is 85 bicarb 42 BUN 64 creatinine 1.34 glucose remains high at 444. Lantus increased to 50 twice a day today and NovoLog increased to 15 units with meals continue and follow with sliding scale. Solu-Medrol switched to prednisone 40 mg daily the patient labs tomorrow 10/12 patient examined at bedside. As shortness of breath on exertion and fatigue. Vitals checked in the room such as patient's systolic over 80s. Vitals as checked at 1 PM suggest blood pressure 125/71 with oxygen saturation of 96% on 8 L (55 years. 16 hold patient's blood pressure medication and Lasix today as patient's blood pressure is on the lower side. ABG to be obtained with a pH of 7.34 pCO2 of 81 pO2 59 and bicarb 43 appears to be secondary to metabolic alkalosis secondary to overdiuresis.. Patient to be placed on BiPAP for COPD exacerbation. Hold Lasix and metolazone. Continue Levemir at the current dose of 50 subcu twice a day with insulin aspart 15 subcu before meals and at bedtime. REVIEW OF SYSTEMS Constitutional: No fever, no chills, no night sweats. No weight change. Reports weakness and fatigue no lethargy. No daytime sleepiness. EENT: No headache. No blurred vision or double vision, no loss of vision. No loss of Hearing, no ringing in the ears, no dizziness. No nasal drainage or congestion. No epistaxis. No sore throat. Lungs: Reports shortness of breath, reports cough, no sputum production. Reports wheezing. Reports dyspnea with exertion. Cardiovascular: No chest pain, no lower extremity edema. No palpitations. No paroxysmal nocturnal dyspnea. No orthopnea. No lightheadedness or dizziness. No syncopal episodes. Abdominal: Reports upper abdominal pain. No nausea, vomiting. no diarrhea. Reports constipation. No bloody reports tarry stools. Denies bright red bleeding. no loss of appetite. Genitourinary: No dysuria, increased frequency, urgency. No urinary retention. Musculoskeletal: No myalgias. No muscle weakness, no gait dysfunction, no frequent falls. No back pain. No neck pain. Integumentary: No wounds, no lesions. No rash or pruritus. No unusual bruising. No change in hair or nails. Neurologic: No aphasia. No facial droop. No change in mentation. No head injury. No headache. No paralysis. No paresthesia. Psychiatric: No depression. No anxiety. Endocrine: Reported reports abnormal blood sugars. No weight change. Objective - Vital Signs Vital signs: Vital Signs Temp 97.6 F 10/12/20 08:00 Pulse 64 10/12/20 15:57 Resp 20 10/12/20 13:50 BP 115/61 10/12/20 14:39 Pulse Ox 97 10/12/20 15:57 Intake & Output 10/11/20 10/12/20 10/12/20 18:59 06:59 18:59 Intake Total 600 500 840 Output Total 600 2650 1200 Balance 0 -2150 -360 Weight 112.2 kg Intake: Oral 600 500 840 Output: Urine 600 2650 1200 Other: Voiding Method Toilet Toilet # Bowel Movements 1 1 - Exam PHYSICAL EXAMINATION Gen: This is a 65-year-old female. She is resting and recliner and appears to be comfortable at rest. HEENT: Head is atraumatic, normocephalic. Pupils equal, round. Sclerae is anicte jeff. Conjunctiva pale. NECK: Supple. No JVD. No lymphadenopathy. No thyromegaly. LUNGS: Lateral wheezing. Decreased air entry bilaterally No intercostal retractions. HEART: Regular rate and rhythm. Systolic murmur. ABDOMEN: Soft. Bowel sounds are present. No masses. No tenderness. EXTREMITIES: No pedal edema. No calf tenderness. Dorsalis pedis +2 bilaterally. NEUROLOGICAL: Patient is awake, alert and oriented x3. Cranial nerves 2 through 12 are grossly intact. - Labs CBC & Chem 7: 10/11/20 06:19 10/12/20 04:29 Labs: Abnormal Lab Results - Last 24 Hours (Table) 10/11/20 10/11/20 10/12/20 Range/Units 18:04 20:45 04:29 ABG pH (7.35-7.45) ABG pCO2 (35-45) mmHg ABG pO2 (83-108) mmHg ABG HCO3 (21-25) mmol/L ABG Total CO2 (19-24) mmol/L ABG O2 Saturation (94-97) % Sodium 133 L (137-145) mmol/L Chloride 82 L (98-107) mmol/L Carbon Dioxide 46 H* (22-30) mmol/L BUN 73 H (7-17) mg/dL Creatinine 1.52 H (0.52-1.04) mg/dL Glucose 340 H (74-99) mg/dL POC Glucose (mg/dL) 457 H 514 H (75-99) mg/dL Alkaline Phosphatase 133 H (38-126) U/L 10/12/20 10/12/20 10/12/20 Range/Units 06:49 12:09 14:22 ABG pH 7.34 L (7.35-7.45) ABG pCO2 81 H* (35-45) mmHg ABG pO2 59 L* (83-108) mmHg ABG HCO3 43 H* (21-25) mmol/L ABG Total CO2 46 H (19-24) mmol/L ABG O2 Saturation 88.5 L (94-97) % Sodium (137-145) mmol/L Chloride (98-107) mmol/L Carbon Dioxide (22-30) mmol/L BUN (7-17) mg/dL Creatinine (0.52-1.04) mg/dL Glucose (74-99) mg/dL POC Glucose (mg/dL) 347 H 302 H (75-99) mg/dL Alkaline Phosphatase (38-126) U/L Assessment and Plan Plan: ASSESSMENT AND PLAN 1. Acute on Chronic hypoxic respiratory failure with progressive dyspnea secondary to COPD and acute on chronic diastolic heart failure. Hold Lasix and metolazone and Aldactone. Solu-Medrol transition to oral prednisone . CTA of the chest ruled out pulmonary embolism. 2. Upper abdominal/lower chest pain with abdominal bloating and early satiety, ruled out gastroparesis. Most likely secondary to constipation and fecal burden. Continue Senokot 2 daily at 1800. 3. 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 Continue Protonix 40 mg oral twice daily. Hemoglobin is stable. 4. Diabetes mellitus type 2 with diabetic neuropathy uncontrolled with hyperglycemia secondary to steroids. Levemir increased to 50 units twice daily, scheduled NovoLog increased to 15 units before meals and at bedtime, continue NovoLog scale before meals and at bedtime. Continue Januvia 100 mg daily. Hemoglobin A1c in July was 5.2. 5. Diabetic neuropathy. Continue Lyrica 200 milligrams twice daily. 6. COPD without exacerbation. Continue DuoNeb treatment 4 times daily as needed, Pulmicort 1 mg twice daily, Singulair 10 mg at bedtime. 7. Hypertension. Continue Lasix, Lopressor 100 mg twice daily. 8. Hyperlipidemia. Continue Lipitor 40 mg daily. 9. Obstructive sleep apnea. Continue BiPAP at night. 10. Hypothyroidism. Continue levothyroxine 125 g daily. Restless leg s yndrome. Continue Requip 2 mg twice daily. 11. Recurrent depression. Continue Prozac 20 mg daily. 12. Oral thrush. Diflucan 100 mg daily. 13. GI prophylaxis. Protonix twice daily. 14. DVT prophylaxis. Heparin subcu every 12 hours. 15 Acute kidney injury. Lasix was held Aldactone held, recheck renal function and electrolytes in the morning. 16. Hyperkalemia.resolved Status post Kayexalate 30 A 1, discontinue potassium supplement and decrease Aldactone. 17 metabolic alkalosis secondary to overdiuresis hold diuretics patient initially on Diamox 250 by mouth daily #18 disposition likely discharge home with homecare
[2020-10-12 17:47] LABS: Glucose,Whole Blood 330 mg/dL (75-99)
[2020-10-12] MEDS: SENNOSIDES-DOCUSATE SODIUM 1 EACH TAB PO SCH (17:54)
[2020-10-12 20:09] LABS: Glucose,Whole Blood 364 mg/dL (75-99)
[2020-10-12] MEDS: MONTELUKAST 10 MG TAB PO SCH (20:22)
[2020-10-12] MEDS: ALPRAZolam 0.25 MG TAB PO PRN (20:22)
[2020-10-13] MEDS: LEVOTHYROXINE 125 MCG TAB PO SCH (06:16)
[2020-10-13] MEDS: PANTOPRAZOLE 40 MG TABLET PO SCH ×2 (06:17→18:04)
[2020-10-13 06:30] LABS: Glucose,Whole Blood 236 mg/dL (75-99)
[2020-10-13] MEDS: INSULIN DETEMIR (LEVEMIR) 100 UNIT/ML SYR SQ SCH ×2 (06:55→21:11)
[2020-10-13] MEDS: INSULIN ASPART (NovoLOG) 100 UNIT/ML VIAL SQ SCH ×8 (06:55→21:11)
[2020-10-13 07:03] LABS: Anisocytosis Slight; Basophils % (A) 0 %; Eosinophils # (A) 0.1 k/uL (0-0.7); Eosinophils % (A) 1 %; HGB 7.4 gm/dL (11.4-16.0); Hypochromasia Marked; Lymphocytes # (A) 0.8 k/uL (1.0-4.8); Lymphocytes % (A) 8 %; MCH 21.8 pg (25.0-35.0); MCHC 27.2 g/dL (31.0-37.0); MCV 79.9 fL (80.0-100.0); Mean Platelet Volume 7.9; Microcytosis Slight; Monocytes # (A) 1.1 k/uL (0-1.0); Monocytes % (A) 11 %; Neutrophils # (A) 7.6 k/uL (1.3-7.7); Neutrophils % (A) 77 %; Platelet Count 311 k/uL (150-450); Poikilocytosis Slight; RBC 3.38 m/uL (3.80-5.40); RDW 18.6 % (11.5-15.5); WBC 9.8 k/uL (3.8-10.6)
[2020-10-13 07:23] LABS: Calcium 9.1 mg/dL (8.4-10.2); Potassium 4.7 mmol/L (3.5-5.1)
[2020-10-13] MEDS: IPRATROPIUM-ALBUTEROL 3 ML NEB INHALATION PRN ×4 (08:30→20:42)
[2020-10-13] MEDS: BUDESONIDE 1 MG/2 ML NEBU INHALATION SCH ×2 (08:30→20:42)
[2020-10-13] MEDS: TIOTROPIUM 2.5 MCG INHALER INHALATION SCH (08:38)
[2020-10-13] MEDS: HEPARIN SODIUM,PORCINE/PF 5,000 UNIT/0.5 ML SYRINGE SQ SCH ×2 (08:59→20:14)
[2020-10-13] MEDS: FLUCONAZOLE 100 MG TAB PO SCH (08:59)
[2020-10-13] MEDS: FLUoxetine HCL 20 MG CAP PO SCH (08:59)
[2020-10-13] MEDS: LINAGLIPTIN 5 MG TABLET PO SCH (09:00)
[2020-10-13] MEDS: guaiFENesin 600 MG TABLET.ER PO SCH ×2 (09:00→20:13)
[2020-10-13] MEDS: PREGABALIN 100 MG CAP PO SCH ×2 (09:00→20:13)
[2020-10-13] MEDS: predniSONE 20 MG TAB PO SCH (09:01)
[2020-10-13] MEDS: FUROSEMIDE 20 MG TAB PO SCH (09:01)
[2020-10-13] MEDS: Acetaminophen-Codeine 300-30mg TAB PO PRN ×2 (09:02→19:28)
[2020-10-13] MEDS ORDERED: SODIUM FERRIC GLUCONAT-SUCROSE 125 MG in SODIUM CHLORIDE 0.9% 100 ML IVPB ONE (10:00)
--- NOTE | 2020-10-13 11:00 | P.PN ---
Subjective This is a pleasant 65 showed female past medical history significant for COPD, anemia, aortic stenosis, morbid obesity, diabetes mellitus, dyslipidemia and hypertension. She follows in the office with Dr. Samayoa. She is seen and examined sitting up on the edge of the bed. She did wear Bipap last night and states her breathing has improved. She also feels like she clearing her secretions better this AM. She has not been up to say of her exertional dyspnea has improved. Blood pressure 128/74 heart rate 83 afebrile and maintaining oxygen saturation on nasal cannula. Lab data reviewed, WBC 9.8, hgb 7.4, plt 311, sodium 134, potassium 4.7, creatinine 1.55 which is her baseline. GENERAL: Well-appearing, well-nourished and in no acute distress. NECK: Supple without JVD or thyromegaly. LUNGS: Bibasilar rales, no wheezes or rhonchi. Respiration equal and unlabored. HEART: Regular rate and rhythm with systolic ejection murmur at the base, no rubs or gallops. S1 and S2 heard. EXTREMITIES: Normal range of motion, 1+ pitting edema bilaterally. No clubbing or cyanosis. Peripheral pulses intact. ASSESSMENT Acute on chronic diastolic heart failure COPD Leukocytosis Chronic kidney disease Chronic anemia with recent history of active bleeding noted on capsule study Hypertension Dyslipidemia Diabetes mellitus Aortic stenosis Morbid obesity, BMI 48 PLAN Continue diamox for 1 more day. Follow renal function and electrolytes in the morning. Nurse Practitioner note has been reviewed, I agree with a documented findings and plan of care. Patient was seen and examined. Objective - Vital Signs Vital signs: Vital Signs Temp 98.5 F 10/13/20 09:53 Pulse 83 10/13/20 09:53 Resp 20 10/13/20 09:53 BP 128/74 10/13/20 09:53 Pulse Ox 94 L 10/13/20 09:53 Intake & Output 10/12/20 10/13/20 10/13/20 18:59 06:59 18:59 Intake Total 840 Output Total 2200 950 600 Balance -1360 -950 -600 Weight 113.6 kg Intake: Oral 840 Output: Urine 2200 950 600 Other: Voiding Method Toilet # Voids 1 # Bowel Movements 1 1 - Labs CBC & Chem 7: 10/13/20 06:13 10/13/20 06:13 Labs: Abnormal Lab Results - Last 24 Hours (Table) 10/12/20 10/12/20 10/12/20 Range/Units 12:09 14:22 17:44 RBC (3.80-5.40) m/uL Hgb (11.4-16.0) gm/dL Hct (34.0-46.0) % MCV (80.0-100.0) fL MCH (25.0-35.0) pg MCHC (31.0-37.0) g/dL RDW (11.5-15.5) % Lymphocytes # (1.0-4.8) k/uL Monocytes # (0-1.0) k/uL ABG pH 7.34 L (7.35-7.45) ABG pCO2 81 H* (35-45) mmHg ABG pO2 59 L* (83-108) mmHg ABG HCO3 43 H* (21-25) mmol/L ABG Total CO2 46 H (19-24) mmol/L ABG O2 Saturation 88.5 L (94-97) % Sodium (137-145) mmol/L Chloride (98-107) mmol/L Carbon Dioxide (22-30) mmol/L BUN (7-17) mg/dL Creatinine (0.52-1.04) mg/dL Glucose (74-99) mg/dL POC Glucose (mg/dL) 302 H 330 H (75-99) mg/dL 10/12/20 10/13/20 10/13/20 Range/Units 20:06 06:13 06:13 RBC 3.38 L (3.80-5.40) m/uL Hgb 7.4 L (11.4-16.0) gm/dL Hct 27.0 L (34.0-46.0) % MCV 79.9 L (80.0-100.0) fL MCH 21.8 L (25.0-35.0) pg MCHC 27.2 L (31.0-37.0) g/dL RDW 18.6 H (11.5-15.5) % Lymphocytes # 0.8 L (1.0-4.8) k/uL Monocytes # 1.1 H (0-1.0) k/uL ABG pH (7.35-7.45) ABG pCO2 (35-45) mmHg ABG pO2 (83-108) mmHg ABG HCO3 (21-25) mmol/L ABG Total CO2 (19-24) mmol/L ABG O2 Saturation (94-97) % Sodium 134 L (137-145) mmol/L Chloride 85 L (98-107) mmol/L Carbon Dioxide 40 H (22-30) mmol/L BUN 65 H (7-17) mg/dL Creatinine 1.55 H (0.52-1.04) mg/dL Glucose 217 H (74-99) mg/dL POC Glucose (mg/dL) 364 H (75-99) mg/dL 10/13/20 Range/Units 06:29 RBC (3.80-5.40) m/uL Hgb (11.4-16.0) gm/dL Hct (34.0-46.0) % MCV (80.0-100.0) fL MCH (25.0-35.0) pg MCHC (31.0-37.0) g/dL RDW (11.5-15.5) % Lymphocytes # (1.0-4.8) k/uL Monocytes # (0-1.0) k/uL ABG pH (7.35-7.45) ABG pCO2 (35-45) mmHg ABG pO2 (83-108) mmHg ABG HCO3 (21-25) mmol/L ABG Total CO2 (19-24) mmol/L ABG O2 Saturation (94-97) % Sodium (137-145) mmol/L Chloride (98-107) mmol/L Carbon Dioxide (22-30) mmol/L BUN (7-17) mg/dL Creatinine (0.52-1.04) mg/dL Glucose (74-99) mg/dL POC Glucose (mg/dL) 236 H (75-99) mg/dL
[2020-10-13 12:33] LABS: Glucose,Whole Blood 307 mg/dL (75-99)
--- NOTE | 2020-10-13 12:58 | P.PN ---
Subjective Progress Note Date: 10/13/20 HISTORY OF PRESENT ILLNESS This is a 65-year-old female patient of Dr. Deras with past medical history significant for heart failure, COPD, chronic hypoxic respiratory failure on home O2 at 2 L nasal cannula and obstructive sleep apnea on BiPAP support at bedtime, diabetes mellitus type 2 with diabetic neuropathy, chronic diastolic heart failure, valvular heart disease, hypertension, hypothyroidism, GI bleed with anemia. Patient has had multiple admissions and multiple endoscopies for GIB and anemia. 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 The bleeding seems to be stable since that time. They, patient presented to the hospital due to chest pain in the midsternal area across her chest seems to be worse after she eats it was hurting after she had breakfast this morning. She complains of shortness of breath with exertion that is worse than the last time she was admitted. She states her stools have been normal. She does complain of abdominal distention and fullness after eating. Patient presented to the [facility] emergency center for evaluation. Patient was found to be afebrile, heart rate 71, blood pressure 140/61, pulse ox 100% on oxygen. WBC 14.8, hemoglobin 8.2 which is stable for this patient. Platelet count is 310. Sodium 138, potassium 4.2, chloride 97, CO2 35, BUN 39 and creatinine 1.34 which is also patient's baseline. Blood sugar 207. D-dimer 0.89. Alkaline phosphatase 160. Troponin negative. Pro- BNP 2570. Lactic acid 1.0. Coronavirus PCR not detected. EKG sinus rhythm with nonspecific ST-T wave changes. Chest x-ray reveals vascular and interstitial markings prominent in the mid to lower lungs bilaterally similar to previous. Consider heart failure versus interstitial infiltrate. CAT scan of the abdomen and pelvis without contrast revealed hepatomegaly and 19.6 cm. Correlate with LFTs and risk factors for underlying hepatocellular disease. 1.3 cm right common iliac chain lymph node is enlarged. Left inguinal femoral chain lymph nodes are borderline enlarged. Findings probably reactive postinflammatory. 1.1 cm indeterminate right adrenal nodule. Moderate stool burden and generalized colonic diverticulosis. Tiny hiatal hernia. Consult was admitted for cardiology and patient has been seen by Dr. Yang for progressive dyspnea secondary to combination of COPD and element of heart failure with preserved systolic function. Plan to continue IV diuretics for 24 hours. 10/07: She has been afebrile, heart rate 86, blood pressure 101/46, pulse ox 90% on 4 L nasal cannula. WBC 11, hemoglobin 7.9, platelet count 319. Sodium 138, potassium 4.3, chloride 95, CO2 37, BUN 31 and creatinine 1.02. Blood sugars have been running 185 up to 405 at its 4 PM yesterday. Patient missed her morning dose of Levemir yesterday. Patient underwent gastric emptying study which was negative for gastroparesis. Patient is continued on IV Lasix at 40 mg every 12 hours. 10/08: Patient is afebrile, heart rate 75, blood pressure 146/57, pulse ox 92% on 3 L nasal cannula. Repeat blood work reveals sodium 138, potassium 4.9, chloride 96, CO2 37, BUN 38 creatinine 1.13. Blood sugars have been running between 211 and 307. Hemoglobin A1c from July is 5.2. Patient has increased dyspnea today along with a dry cough. She complains of shortness of breath with minimal activity, positive orthopnea. Patient was having issues with constipation and last evening and Senokot was added and she states she has had lots of bowel movements. Cardiology increase Lasix every 8 hours. Also Solu-Medrol added. 10/09: Pulse ox is 94% on 3 L nasal cannula. Patient has been afebrile, heart rate 86, blood pressure 134/63. Patient continues to have shortness of breath and nonproductive cough. She is wheezing. Positive shortness of breath with minimal activity. CTA of the chest has been ordered to rule out PE. Blood sugar at 0 was 604 and also high yesterday afternoon, patient received additional NovoLog on top of scale. Levemir 42 units subcu ordered this morning versus her normal dose of 30. Scheduled NovoLog will be increased to 6 units with meals. Solu-Medrol will be decreased to every 12 hours Repeat blood work reveals sodium 131, potassium 5.9, chloride 89, CO2 38, BUN 41 and creatinine 1.15. 10/10: CTA of the chest was suboptimal study without central pulmonary embolism. Cardiomegaly with mild interstitial and alveolar edema raises concern for heart failure exacerbation. No focal consolidation. She is currently on Lasix 40 mg IV 3 times daily. She continues to have shortness of breath, dyspnea with exertion and lower extremity edema. Lasix will be decreased tomorrow to 60 mg oral twice daily. Blood sugars continue to be in the 400s and 500s. She has received additional NovoLog plus scale. Levemir will be increased to 45 units twice daily and scheduled NovoLog increased to 12 units with meals and at at bedtime. Solu-Medrol was discontinued and patient to start prednisone tomorrow. Pulse ox is 95% on 3 L nasal cannula. She's been afebrile, heart rate 60, blood pressure 131/54. Repeat blood work reveals WBC 15.8, hemoglobin 7.5, platelet count 388. Sodium was 129, potassium 6.1 and one dose of Kayexalate 30 mg ordered, oral prednisone scheduled was discontinued and Aldactone decreased to 12.5 mg daily. Chloride 84, CO2 39, BUN 57 and creatinine 1.41. 10/11 and patient examined bedside. Continue have shortness of breath on exertion. For some mild is continued at 40 IV every 8 hours per cardiology. On evaluation as patient's blood work today potassium is improved to 5.1 chloride is 85 bicarb 42 BUN 64 creatinine 1.34 glucose remains high at 444. Lantus increased to 50 twice a day today and NovoLog increased to 15 units with meals continue and follow with sliding scale. Solu-Medrol switched to prednisone 40 mg daily the patient labs tomorrow 10/12 patient examined at bedside. As shortness of breath on exertion and fatigue. Vitals checked in the room such as patient's systolic over 80s. Vitals as checked at 1 PM suggest blood pressure 125/71 with oxygen saturation of 96% on 8 L (55 years. 16 hold patient's blood pressure medication and Lasix today as patient's blood pressure is on the lower side. ABG to be obtained with a pH of 7.34 pCO2 of 81 pO2 59 and bicarb 43 appears to be secondary to metabolic alkalosis secondary to overdiuresis.. Patient to be placed on BiPAP for COPD exacerbation. Hold Lasix and metolazone. Continue Levemir at the current dose of 50 subcu twice a day with insulin aspart 15 subcu before meals and at bedtime. 10/13: Seen today in follow-up. Her hemoglobin is 7.4 and one dose of Ferrlecit IV will be ordered. Lasix will be resumed today at 60 mg oral. Patient utilizes BiPAP last night. She has gotten encouraged to use this during the day as well. REVIEW OF SYSTEMS Constitutional: No fever, no chills, no night sweats. No weight change. Reports weakness and fatigue no lethargy. No daytime sleepiness. EENT: No headache. No blurred vision or double vision, no loss of vision. No loss of Hearing, no ringing in the ears, no dizziness. No nasal drainage or congestion. No epistaxis. No sore throat. Lungs: Reports shortness of breath, reports cough, no sputum production. Reports wheezing. Reports dyspnea with exertion. Cardiovascular: No chest pain, no lower extremity edema. No palpitations. No p aroxysmal nocturnal dyspnea. No orthopnea. No lightheadedness or dizziness. No syncopal episodes. Abdominal: Reports upper abdominal pain. No nausea, vomiting. no diarrhea. Reports constipation. No bloody reports tarry stools. Denies bright red bleeding. no loss of appetite. Genitourinary: No dysuria, increased frequency, urgency. No urinary retention. Musculoskeletal: No myalgias. No muscle weakness, no gait dysfunction, no frequent falls. No back pain. No neck pain. Integumentary: No wounds, no lesions. No rash or pruritus. No unusual bruising. No change in hair or nails. Neurologic: No aphasia. No facial droop. No change in mentation. No head injury. No headache. No paralysis. No paresthesia. Psychiatric: No depression. No anxiety. Endocrine: Reported reports abnormal blood sugars. No weight change. PHYSICAL EXAMINATION Gen: This is a 65-year-old female. She is resting and recliner and appears to be comfortable at rest. HEENT: Head is atraumatic, normocephalic. Pupils equal, round. Sclerae is anicteric. Conjunctiva pale. NECK: Supple. No JVD. No lymphadenopathy. No thyromegaly. LUNGS: Bilateral wheezing. No intercostal retractions. HEART: Regular rate and rhythm. Systolic murmur. ABDOMEN: Soft. Bowel sounds are present. No masses. No tenderness. EXTREMITIES: No pedal edema. No calf tenderness. Dorsalis pedis +2 bilaterally. NEUROLOGICAL: Patient is awake, alert and oriented x3. Cranial nerves 2 through 12 are grossly intact. ASSESSMENT AND PLAN 1. Chronic hypoxic respiratory failure with progressive dyspnea secondary to COPD and acute on chronic diastolic heart failure. Resume Lasix at 60 mg oral daily, continue metolazone 2.5 mg on Tuesday. Aldactone discontinued, continue prednisone 40 mg daily. CTA of the chest ruled out pulmonary embolism. 2. Upper abdominal/lower chest pain with abdominal bloating and early satiety, ruled out gastroparesis. Most likely secondary to constipation and fecal burden. Continue Senokot 2 daily at 1800. 3. 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 Continue Protonix 40 mg oral twice daily. Ferrlecit infusion 1 today 4. Diabetes mellitus type 2 with diabetic neuropathy uncontrolled with hyperglycemia secondary to steroids. Continue Levemir increased to 45 units twice daily, scheduled NovoLog increased to 12 units before meals and at bedtime, continue NovoLog scale before meals and at bedtime. Continue Januvia 100 mg daily. Hemoglobin A1c in July was 5.2. 5. Diabetic neuropathy. Continue Lyrica 200 milligrams twice daily. 6. COPD without exacerbation. Continue DuoNeb treatment 4 times daily as needed, Pulmicort 1 mg twice daily, Singulair 10 mg at bedtime. 7. Hypertension. Continue Lasix, Lopressor 100 mg twice daily. 8. Hyperlipidemia. Continue Lipitor 40 mg daily. 9. Obstructive sleep apnea. Continue BiPAP at night. 10. Hypothyroidism. Continue levothyroxine 125 g daily. Restless leg syndrome. Continue Requip 2 mg twice daily. 11. Recurrent depression. Continue Prozac 20 mg daily. 12. Oral thrush. Diflucan 100 mg daily. 13. Acute kidney injury. Lasix and Aldactone held, lower dose of Lasix oral be resumed today. 14. Hyperkalemia, resolved status post Kayexalate 1. 15. Metabolic alkalosis secondary to overdiuresis. Continue Diamox 250 mg daily. 16. GI prophylaxis. Protonix twice daily. 17. DVT prophylaxis. Heparin subcu every 12 hours. DISCHARGE PLAN Home Impression and plan of care have been directed as dictated by the signing physician. Clarice Colón nurse practitioner acting as scribe for signing physician. Objective - Vital Signs Vital signs: Vital Signs Temp 98.6 F 10/13/20 08:00 Pulse 76 10/13/20 08:43 Resp 20 10/13/20 08:00 BP 155/67 10/13/20 08:00 Pulse Ox 91 L 10/13/20 08:00 Intake & Output 10/12/20 10/13/20 10/13/20 18:59 06:59 18:59 Intake Total 840 Output Total 2200 950 Balance -1360 -950 Weight 113.6 kg Intake: Oral 840 Output: Urine 2200 950 Other: Voiding Method Toilet # Bowel Movements 1 - Labs CBC & Chem 7: 10/13/20 06:13 10/13/20 06:13 Labs: Abnormal Lab Results - Last 24 Hours (Table) 10/12/20 10/12/20 10/12/20 Range/Units 12:09 14:22 17:44 RBC (3.80-5.40) m/uL Hgb (11.4-16.0) gm/dL Hct (34.0-46.0) % MCV (80.0-100.0) fL MCH (25.0-35.0) pg MCHC (31.0-37.0) g/dL RDW (11.5-15.5) % Lymphocytes # (1.0-4.8) k/uL Monocytes # (0-1.0) k/uL ABG pH 7.34 L (7.35-7.45) ABG pCO2 81 H* (35-45) mmHg ABG pO2 59 L* (83-108) mmHg ABG HCO3 43 H* (21-25) mmol/L ABG Total CO2 46 H (19-24) mmol/L ABG O2 Saturation 88.5 L (94-97) % Sodium (137-145) mmol/L Chloride (98-107) mmol/L Carbon Dioxide (22-30) mmol/L BUN (7-17) mg/dL Creatinine (0.52-1.04) mg/dL Glucose (74-99) mg/dL POC Glucose (mg/dL) 302 H 330 H (75-99) mg/dL 10/12/20 10/13/20 10/13/20 Range/Units 20:06 06:13 06:13 RBC 3.38 L (3.80-5.40) m/uL Hgb 7.4 L (11.4-16.0) gm/dL Hct 27.0 L (34.0-46.0) % MCV 79.9 L (80.0-100.0) fL MCH 21.8 L (25.0-35.0) pg MCHC 27.2 L (31.0-37.0) g/dL RDW 18.6 H (11.5-15.5) % Lymphocytes # 0.8 L (1.0-4.8) k/uL Monocytes # 1.1 H (0-1.0) k/uL ABG pH (7.35-7.45) ABG pCO2 (35-45) mmHg ABG pO2 (83-108) mmHg ABG HCO3 (21-25) mmol/L ABG Total CO2 (19-24) mmol/L ABG O2 Saturation (94-97) % Sodium 134 L (137-145) mmol/L Chloride 85 L (98-107) mmol/L Carbon Dioxide 40 H (22-30) mmol/L BUN 65 H (7-17) mg/dL Creatinine 1.55 H (0.52-1.04) mg/dL Glucose 217 H (74-99) mg/dL POC Glucose (mg/dL) 364 H (75-99) mg/dL 10/13/20 Range/Units 06:29 RBC (3.80-5.40) m/uL Hgb (11.4-16.0) gm/dL Hct (34.0-46.0) % MCV (80.0-100.0) fL MCH (25.0-35.0) pg MCHC (31.0-37.0) g/dL RDW (11.5-15.5) % Lymphocytes # (1.0-4.8) k/uL Monocytes # (0-1.0) k/uL ABG pH (7.35-7.45) ABG pCO2 (35-45) mmHg ABG pO2 (83-108) mmHg ABG HCO3 (21-25) mmol/L ABG Total CO2 (19-24) mmol/L ABG O2 Saturation (94-97) % Sodium (137-145) mmol/L Chloride (98-107) mmol/L Carbon Dioxide (22-30) mmol/L BUN (7-17) mg/dL Creatinine (0.52-1.04) mg/dL Glucose (74-99) mg/dL POC Glucose (mg/dL) 236 H (75-99) mg/dL
[2020-10-13 17:45] LABS: Glucose,Whole Blood 527 mg/dL (75-99)
[2020-10-13] MEDS: SENNOSIDES-DOCUSATE SODIUM 1 EACH TAB PO SCH (18:04)
[2020-10-13] MEDS: MONTELUKAST 10 MG TAB PO SCH (20:13)
[2020-10-13 20:42] LABS: Glucose,Whole Blood 530 mg/dL (75-99)
[2020-10-14] MEDS: PANTOPRAZOLE 40 MG TABLET PO SCH ×2 (06:59→17:47)
[2020-10-14 07:00] LABS: Glucose,Whole Blood 356 mg/dL (75-99)
[2020-10-14] MEDS: INSULIN DETEMIR (LEVEMIR) 100 UNIT/ML SYR SQ SCH ×2 (07:00→20:08)
[2020-10-14] MEDS: LEVOTHYROXINE 125 MCG TAB PO SCH (07:01)
[2020-10-14] MEDS: INSULIN ASPART (NovoLOG) 100 UNIT/ML VIAL SQ SCH ×8 (07:02→20:08)
[2020-10-14] MEDS: BUDESONIDE 1 MG/2 ML NEBU INHALATION SCH ×2 (08:13→20:27)
[2020-10-14] MEDS: IPRATROPIUM-ALBUTEROL 3 ML NEB INHALATION PRN ×2 (08:13→20:27)
[2020-10-14] MEDS: TIOTROPIUM 2.5 MCG INHALER INHALATION SCH (08:14)
[2020-10-14 08:18] LABS: Anisocytosis Slight; HCT 28.2 % (34.0-46.0); HGB 7.6 gm/dL (11.4-16.0); Hypochromasia Marked; MCH 21.6 pg (25.0-35.0); MCHC 26.9 g/dL (31.0-37.0); MCV 80.3 fL (80.0-100.0); Mean Platelet Volume 7.5; Microcytosis Slight; Platelet Count 297 k/uL (150-450); Poikilocytosis Slight; RBC 3.51 m/uL (3.80-5.40); RDW 18.9 % (11.5-15.5); WBC 9.1 k/uL (3.8-10.6)
[2020-10-14] MEDS: FLUoxetine HCL 20 MG CAP PO SCH (08:33)
[2020-10-14] MEDS: predniSONE 20 MG TAB PO SCH (08:33)
[2020-10-14] MEDS: PREGABALIN 100 MG CAP PO SCH ×2 (08:33→19:59)
[2020-10-14] MEDS: FUROSEMIDE 20 MG TAB PO SCH (08:34)
[2020-10-14] MEDS: guaiFENesin 600 MG TABLET.ER PO SCH ×2 (08:34→19:59)
[2020-10-14] MEDS: FLUCONAZOLE 100 MG TAB PO SCH (08:34)
[2020-10-14 08:35] LABS: Calcium 8.5 mg/dL (8.4-10.2); Potassium 4.6 mmol/L (3.5-5.1)
[2020-10-14] MEDS: HEPARIN SODIUM,PORCINE/PF 5,000 UNIT/0.5 ML SYRINGE SQ SCH ×2 (08:35→19:59)
[2020-10-14] MEDS: LINAGLIPTIN 5 MG TABLET PO SCH (08:35)
[2020-10-14] MEDS: Acetaminophen-Codeine 300-30mg TAB PO PRN ×2 (08:41→19:59)
[2020-10-14] MEDS: ALBUTEROL HFA INHALER INHALATION SCH ×3 (11:37→20:27)
[2020-10-14 12:16] LABS: C Reactive Protein 1.6 mg/dL (<1.0)
[2020-10-14 12:56] LABS: Glucose,Whole Blood 370 mg/dL (75-99)
--- NOTE | 2020-10-14 13:10 | P.PN ---
Subjective This is a pleasant 65 showed female past medical history significant for COPD, anemia, aortic stenosis, morbid obesity, diabetes mellitus, dyslipidemia and hypertension. She follows in the office with Dr. Samayoa. She is seen and examined sitting up on the edge of the bed. She did wear Bipap last night and states her breathing has improved. She also feels like she clearing her secretions better this AM. She has not been up to say of her exertional dyspnea has improved. Blood pressure 128/74 heart rate 83 afebrile and maintaining oxygen saturation on nasal cannula. Lab data reviewed, WBC 9.8, hgb 7.4, plt 311, sodium 134, potassium 4.7, creatinine 1.55 which is her baseline. GENERAL: Well-appearing, well-nourished and in no acute distress. ASSESSMENT COVID Acute on chronic diastolic heart failure COPD Leukocytosis Chronic kidney disease Chronic anemia with recent history of active bleeding noted on capsule study Hypertension Dyslipidemia Diabetes mellitus Aortic stenosis Morbid obesity, BMI 48 PLAN Discontinue diamox. Treatment for Covid has been initiated by PCP. Cautious diuresis. Nurse Practitioner note has been reviewed, I agree with a documented findings and plan of care. Patient was seen and examined. Objective - Vital Signs Vital signs: Vital Signs Temp 98.8 F 10/14/20 08:55 Pulse 91 10/14/20 08:55 Resp 18 10/14/20 08:55 BP 148/63 10/14/20 08:55 Pulse Ox 94 L 10/14/20 08:55 Intake & Output 10/13/20 10/14/20 10/14/20 18:59 06:59 18:59 Output Total 4590 650 Balance -4590 -650 Weight 111.3 kg Output: Urine 4590 650 Other: Voiding Method Toilet # Voids 1 2 # Bowel Movements 1 - Labs CBC & Chem 7: 10/14/20 07:29 10/14/20 07:29 Labs: Abnormal Lab Results - Last 24 Hours (Table) 10/13/20 10/13/20 10/14/20 Range/Units 17:43 20:39 06:59 RBC (3.80-5.40) m/uL Hgb (11.4-16.0) gm/dL Hct (34.0-46.0) % MCH (25.0-35.0) pg MCHC (31.0-37.0) g/dL RDW (11.5-15.5) % D-Dimer (<0.60) mg/L FEU Sodium (137-145) mmol/L Chloride (98-107) mmol/L Carbon Dioxide (22-30) mmol/L BUN (7-17) mg/dL Creatinine (0.52-1.04) mg/dL Glucose (74-99) mg/dL POC Glucose (mg/dL) 527 H 530 H 356 H (75-99) mg/dL Lactate Dehydrogenase (313-618) U/L C-Reactive Protein (<1.0) mg/dL Coronavirus (PCR) (Not Detectd) 10/14/20 10/14/20 10/14/20 Range/Units 07:29 07:29 09:20 RBC 3.51 L (3.80-5.40) m/uL Hgb 7.6 L (11.4-16.0) gm/dL Hct 28.2 L (34.0-46.0) % MCH 21.6 L (25.0-35.0) pg MCHC 26.9 L (31.0-37.0) g/dL RDW 18.9 H (11.5-15.5) % D-Dimer (<0.60) mg/L FEU Sodium 133 L (137-145) mmol/L Chloride 90 L (98-107) mmol/L Carbon Dioxide 34 H (22-30) mmol/L BUN 49 H (7-17) mg/dL Creatinine 1.31 H (0.52-1.04) mg/dL Glucose 305 H (74-99) mg/dL POC Glucose (mg/dL) (75-99) mg/dL Lactate Dehydrogenase (313-618) U/L C-Reactive Protein (<1.0) mg/dL Coronavirus (PCR) Detected A (Not Detectd) 10/14/20 10/14/20 10/14/20 Range/Units 11:43 11:43 12:54 RBC (3.80-5.40) m/uL Hgb (11.4-16.0) gm/dL Hct (34.0-46.0) % MCH (25.0-35.0) pg MCHC (31.0-37.0) g/dL RDW (11.5-15.5) % D-Dimer 0.83 H (<0.60) mg/L FEU Sodium (137-145) mmol/L Chloride (98-107) mmol/L Carbon Dioxide (22-30) mmol/L BUN (7-17) mg/dL Creatinine (0.52-1.04) mg/dL Glucose (74-99) mg/dL POC Glucose (mg/dL) 370 H (75-99) mg/dL Lactate Dehydrogenase 669 H (313-618) U/L C-Reactive Protein 1.6 H (<1.0) mg/dL Coronavirus (PCR) (Not Detectd)
[2020-10-14] MEDS: ZINC SULFATE 220 MG CAP PO SCH (13:22)
[2020-10-14] MEDS: ASCORBIC ACID 500 MG TAB PO SCH (13:22)
[2020-10-14] MEDS: CHOLECALCIFEROL 25 MCG (1000 IU) TABLET PO SCH (13:22)
--- NOTE | 2020-10-14 14:43 | P.PN ---
Subjective Progress Note Date: 10/14/20 HISTORY OF PRESENT ILLNESS This is a 65-year-old female patient of Dr. Deras with past medical history significant for heart failure, COPD, chronic hypoxic respiratory failure on home O2 at 2 L nasal cannula and obstructive sleep apnea on BiPAP support at bedtime, diabetes mellitus type 2 with diabetic neuropathy, chronic diastolic heart failure, valvular heart disease, hypertension, hypothyroidism, GI bleed with anemia. Patient has had multiple admissions and multiple endoscopies for GIB and anemia. 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 The bleeding seems to be stable since that time. They, patient presented to the hospital due to chest pain in the midsternal area across her chest seems to be worse after she eats it was hurting after she had breakfast this morning. She complains of shortness of breath with exertion that is worse than the last time she was admitted. She states her stools have been normal. She does complain of abdominal distention and fullness after eating. Patient presented to the [facility] emergency center for evaluation. Patient was found to be afebrile, heart rate 71, blood pressure 140/61, pulse ox 100% on oxygen. WBC 14.8, hemoglobin 8.2 which is stable for this patient. Platelet count is 310. Sodium 138, potassium 4.2, chloride 97, CO2 35, BUN 39 and creatinine 1.34 which is also patient's baseline. Blood sugar 207. D-dimer 0.89. Alkaline phosphatase 160. Troponin negative. Pro- BNP 2570. Lactic acid 1.0. Coronavirus PCR not detected. EKG sinus rhythm with nonspecific ST-T wave changes. Chest x-ray reveals vascular and interstitial markings prominent in the mid to lower lungs bilaterally similar to previous. Consider heart failure versus interstitial infiltrate. CAT scan of the abdomen and pelvis without contrast revealed hepatomegaly and 19.6 cm. Correlate with LFTs and risk factors for underlying hepatocellular disease. 1.3 cm right common iliac chain lymph node is enlarged. Left inguinal femoral chain lymph nodes are borderline enlarged. Findings probably reactive postinflammatory. 1.1 cm indeterminate right adrenal nodule. Moderate stool burden and generalized colonic diverticulosis. Tiny hiatal hernia. Consult was admitted for cardiology and patient has been seen by Dr. Yang for progressive dyspnea secondary to combination of COPD and element of heart failure with preserved systolic function. Plan to continue IV diuretics for 24 hours. 10/07: She has been afebrile, heart rate 86, blood pressure 101/46, pulse ox 90% on 4 L nasal cannula. WBC 11, hemoglobin 7.9, platelet count 319. Sodium 138, potassium 4.3, chloride 95, CO2 37, BUN 31 and creatinine 1.02. Blood sugars have been running 185 up to 405 at its 4 PM yesterday. Patient missed her morning dose of Levemir yesterday. Patient underwent gastric emptying study which was negative for gastroparesis. Patient is continued on IV Lasix at 40 mg every 12 hours. 10/08: Patient is afebrile, heart rate 75, blood pressure 146/57, pulse ox 92% on 3 L nasal cannula. Repeat blood work reveals sodium 138, potassium 4.9, chloride 96, CO2 37, BUN 38 creatinine 1.13. Blood sugars have been running between 211 and 307. Hemoglobin A1c from July is 5.2. Patient has increased dyspnea today along with a dry cough. She complains of shortness of breath with minimal activity, positive orthopnea. Patient was having issues with constipation and last evening and Senokot was added and she states she has had lots of bowel movements. Cardiology increase Lasix every 8 hours. Also Solu-Medrol added. 10/09: Pulse ox is 94% on 3 L nasal cannula. Patient has been afebrile, heart rate 86, blood pressure 134/63. Patient continues to have shortness of breath and nonproductive cough. She is wheezing. Positive shortness of breath with minimal activity. CTA of the chest has been ordered to rule out PE. Blood sugar at 0 was 604 and also high yesterday afternoon, patient received additional NovoLog on top of scale. Levemir 42 units subcu ordered this morning versus her normal dose of 30. Scheduled NovoLog will be increased to 6 units with meals. Solu-Medrol will be decreased to every 12 hours Repeat blood work reveals sodium 131, potassium 5.9, chloride 89, CO2 38, BUN 41 and creatinine 1.15. 10/10: CTA of the chest was suboptimal study without central pulmonary embolism. Cardiomegaly with mild interstitial and alveolar edema raises concern for heart failure exacerbation. No focal consolidation. She is currently on Lasix 40 mg IV 3 times daily. She continues to have shortness of breath, dyspnea with exertion and lower extremity edema. Lasix will be decreased tomorrow to 60 mg oral twice daily. Blood sugars continue to be in the 400s and 500s. She has received additional NovoLog plus scale. Levemir will be increased to 45 units twice daily and scheduled NovoLog increased to 12 units with meals and at at bedtime. Solu-Medrol was discontinued and patient to start prednisone tomorrow. Pulse ox is 95% on 3 L nasal cannula. She's been afebrile, heart rate 60, blood pressure 131/54. Repeat blood work reveals WBC 15.8, hemoglobin 7.5, platelet count 388. Sodium was 129, potassium 6.1 and one dose of Kayexalate 30 mg ordered, oral prednisone scheduled was discontinued and Aldactone decreased to 12.5 mg daily. Chloride 84, CO2 39, BUN 57 and creatinine 1.41. 10/11 and patient examined bedside. Continue have shortness of breath on exertion. For some mild is continued at 40 IV every 8 hours per cardiology. On evaluation as patient's blood work today potassium is improved to 5.1 chloride is 85 bicarb 42 BUN 64 creatinine 1.34 glucose remains high at 444. Lantus increased to 50 twice a day today and NovoLog increased to 15 units with meals continue and follow with sliding scale. Solu-Medrol switched to prednisone 40 mg daily the patient labs tomorrow 10/12 patient examined at bedside. As shortness of breath on exertion and fatigue. Vitals checked in the room such as patient's systolic over 80s. Vitals as checked at 1 PM suggest blood pressure 125/71 with oxygen saturation of 96% on 8 L (55 years. 16 hold patient's blood pressure medication and Lasix today as patient's blood pressure is on the lower side. ABG to be obtained with a pH of 7.34 pCO2 of 81 pO2 59 and bicarb 43 appears to be secondary to metabolic alkalosis secondary to overdiuresis.. Patient to be placed on BiPAP for COPD exacerbation. Hold Lasix and metolazone. Continue Levemir at the current dose of 50 subcu twice a day with insulin aspart 15 subcu before meals and at bedtime. 10/13: Seen today in follow-up. Her hemoglobin is 7.4 and one dose of Ferrlecit IV will be ordered. Lasix will be resumed today at 60 mg oral. Patient utilizes BiPAP last night. She has gotten encouraged to use this during the day as well. 10/14: Patient noted to have a hacking barking cough. She states it started around 1:00 this morning and has been up all night coughing. She denies having any fever or chills. She denies any nausea or vomiting. A rapid Covid test was ordered which surprisingly came back positive. She has been afebrile, heart rate 91, blood pressure 148/63, pulse ox 94% on 2 L nasal cannula. WBC 9.1, hemoglobin 7.6, platelet count 297. D-dimer 0.83, LDH 669. C-reactive protein 1.6. Sodium 133, potassium 4.6, chloride 90, CO2 34, BUN 49 and creatinine 1.31. She is followed by pulmonary medicine. REVIEW OF SYSTEMS Constitutional: No fever, no chills, no night sweats. No weight change. Reports weakness and fatigue no lethargy. No daytime sleepiness. EENT: No headache. No blurred vision or double vision, no loss of vision. No loss of Hearing, no ringing in the ears, no dizziness. No nasal drainage or congestion. No epistaxis. No sore throat. Lungs: Reports shortness of breath, reports cough, no sputum production. Reports wheezing. Reports dyspnea with exertion. Cardiovascular: No chest pain, no lower extremity edema. No palpitations. No paroxysmal nocturnal dyspnea. No orthopnea. No lightheadedness or dizziness. No syncopal episodes. Abdominal: Reports upper abdominal pain. No nausea, vomiting. no diarrhea. Reports constipation. No bloody reports tarry stools. Denies bright red bleeding. no loss of appetite. Genitourinary: No dysuria, increased frequency, urgency. No urinary retention. Musculoskeletal: No myalgias. No muscle weakness, no gait dysfunction, no frequent falls. No back pain. No neck pain. Integumentary: No wounds, no lesions. No rash or pruritus. No unusual bruising. No change in hair or nails. Neurologic: No aphasia. No facial droop. No change in mentation. No head injury. No headache. No paralysis. No paresthesia. Psychiatric: No depression. No anxiety. Endocrine: Reported reports abnormal blood sugars. No weight change. PHYSICAL EXAMINATION Gen: This is a 65-year-old female. She is resting and recliner and appears to be comfortable at rest. HEENT: Head is atraumatic, normocephalic. Pupils equal, round. Sclerae is anicteric. Conjunctiva pale. NECK: Supple. No JVD. No lymphadenopathy. No thyromegaly. LUNGS: Bilateral wheezing. No intercostal retractions. HEART: Regular rate and rhythm. Systolic murmur. ABDOMEN: Soft. Bowel sounds are present. No masses. No tenderness. EXTREMITIES: No pedal edema. No calf tenderness. Dorsalis pedis +2 bilaterally. NEUROLOGICAL: Patient is awake, alert and oriented x3. Cranial nerves 2 through 12 are grossly intact. ASSESSMENT AND PLAN 1. Chronic hypoxic respiratory failure with progressive dyspnea secondary to COPD and acute on chronic diastolic heart failure as well as Covid 19 pneumonia, POA. Continue Lasix at 60 mg oral daily, continue metolazone 2.5 mg on Tuesday. Aldactone on hold, continue prednisone 40 mg daily. CTA of the chest ruled out pulmonary embolism. 2. Upper abdominal/lower chest pain with abdominal bloating and early satiety, ruled out gastroparesis. Most likely secondary to constipation and fecal burden. Continue Senokot 2 daily at 1800. 3. 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 Continue Protonix 40 mg oral twice daily. Ferrlecit infusion 1 today 4. Diabetes mellitus type 2 with diabetic neuropathy uncontrolled with hyperglycemia secondary to steroids. Continue Levemir increased to 45 units twice daily, scheduled NovoLog increased to 12 units before meals and at bedtime, continue NovoLog scale before meals and at bedtime. Continue Januvia 100 mg daily. Hemoglobin A1c in July was 5.2. 5. Diabetic neuropathy. Continue Lyrica 200 milligrams twice daily. 6. COPD without exacerbation. Continue DuoNeb treatment 4 times daily as needed, Pulmicort 1 mg twice daily, Singulair 10 mg at bedtime. 7. Hypertension. Continue Lasix, Lopressor 100 mg twice daily. 8. Hyperlipidemia. Continue Lipitor 40 mg daily. 9. Obstructive sleep apnea. Continue BiPAP at night. 10. Hypothyroidism. Continue levothyroxine 125 g daily. Restless leg syndrome. Continue Requip 2 mg twice daily. 11. Recurrent depression. Continue Prozac 20 mg daily. 12. Oral thrush. Diflucan 100 mg daily. 13. Acute kidney injury. Lasix and Aldactone held, lower dose of Lasix oral be resumed today. 14. Hyperkalemia, resolved status post Kayexalate 1. 15. Metabolic alkalosis secondary to overdiuresis. Continue Diamox 250 mg daily. 16. GI prophylaxis. Protonix twice daily. 17. DVT prophylaxis. Heparin subcu every 12 hours. DISCHARGE PLAN Home Impression and plan of care have been directed as dictated by the signing physician. Clarice Colón nurse practitioner acting as scribe for signing physician. Objective - Vital Signs Vital signs: Vital Signs Temp 97.9 F 10/14/20 01:18 Pulse 78 10/14/20 08:26 Resp 20 10/14/20 08:26 BP 143/63 10/14/20 01:18 Pulse Ox 92 L 10/14/20 01:18 Intake & Output 10/13/20 10/14/20 10/14/20 18:59 06:59 18:59 Output Total 4590 Balance -4590 Output: Urine 4590 Other: Voiding Method Toilet # Voids 1 # Bowel Movements 1 - Labs CBC & Chem 7: 10/14/20 07:29 10/14/20 07:29 Labs: Abnormal Lab Results - Last 24 Hours (Table) 10/13/20 10/13/20 10/13/20 Range/Units 12:32 17:43 20:39 RBC (3.80-5.40) m/uL Hgb (11.4-16.0) gm/dL Hct (34.0-46.0) % MCH (25.0-35.0) pg MCHC (31.0-37.0) g/dL RDW (11.5-15.5) % POC Glucose (mg/dL) 307 H 527 H 530 H (75-99) mg/dL 10/14/20 10/14/20 Range/Units 06:59 07:29 RBC 3.51 L (3.80-5.40) m/uL Hgb 7.6 L (11.4-16.0) gm/dL Hct 28.2 L (34.0-46.0) % MCH 21.6 L (25.0-35.0) pg MCHC 26.9 L (31.0-37.0) g/dL RDW 18.9 H (11.5-15.5) % POC Glucose (mg/dL) 356 H (75-99) mg/dL
[2020-10-14 17:42] LABS: Glucose,Whole Blood 491 mg/dL (75-99)
[2020-10-14] MEDS: SENNOSIDES-DOCUSATE SODIUM 1 EACH TAB PO SCH (17:46)
[2020-10-14] MEDS: MONTELUKAST 10 MG TAB PO SCH (19:59)
[2020-10-14 20:10] LABS: Glucose,Whole Blood 508 mg/dL (75-99)
--- NOTE | 2020-10-14 20:38 | XR ---
EXAMINATION TYPE: XR chest 1V portable DATE OF EXAM: 10/14/2020 CLINICAL HISTORY: covid. Shortness of breath. TECHNIQUE: Portable frontal view of the chest. COMPARISON: 10/11/2020 chest radiograph FINDINGS: Redemonstrated cardiomegaly. Diffuse interstitial coarsening and bibasilar airspace opaciti es. There is no pleural effusion or pneumothorax. IMPRESSION: Redemonstrated diffuse interstitial coarsening may represent pulmonary interstitial billy a versus atypical pneumonitis including Covid 19. No significant change versus 10/11/2020.
[2020-10-15] MEDS: Acetaminophen-Codeine 300-30mg TAB PO PRN ×4 (02:25→21:06)
[2020-10-15] MEDS ORDERED: MINERAL OIL-WHITE PETROLATUM 120 GM JAR TOPICAL PRN (02:29)
[2020-10-15] MEDS: guaiFENesin-Coden 100-10MG/5ML 10 ML CUP PO PRN ×3 (03:44→17:11)
[2020-10-15] MEDS: LEVOTHYROXINE 125 MCG TAB PO SCH (06:31)
[2020-10-15] MEDS: PANTOPRAZOLE 40 MG TABLET PO SCH ×2 (06:31→17:11)
[2020-10-15] MEDS: INSULIN DETEMIR (LEVEMIR) 100 UNIT/ML SYR SQ SCH ×2 (06:31→21:07)
[2020-10-15] MEDS: INSULIN ASPART (NovoLOG) 100 UNIT/ML VIAL SQ SCH ×8 (06:35→21:07)
[2020-10-15 06:39] LABS: Glucose,Whole Blood 297 mg/dL (75-99)
[2020-10-15] MEDS ORDERED: ALBUTEROL HFA INHALER INHALATION PRN ×2 (08:02)
[2020-10-15] MEDS: FLUTICASONE 220 MCG INHALER INHALATION SCH ×2 (08:25→21:14)
[2020-10-15] MEDS: ALBUTEROL HFA INHALER INHALATION SCH ×4 (08:25→21:13)
[2020-10-15] MEDS: TIOTROPIUM 2.5 MCG INHALER INHALATION SCH (08:26)
[2020-10-15] MEDS: BUDESONIDE 1 MG/2 ML NEBU INHALATION SCH (08:30)
[2020-10-15] MEDS: HEPARIN SODIUM,PORCINE/PF 5,000 UNIT/0.5 ML SYRINGE SQ SCH ×2 (08:31→21:06)
[2020-10-15] MEDS: PREGABALIN 100 MG CAP PO SCH ×2 (08:31→21:06)
[2020-10-15] MEDS: guaiFENesin 600 MG TABLET.ER PO SCH ×2 (08:31→21:06)
[2020-10-15] MEDS: predniSONE 20 MG TAB PO SCH (08:32)
[2020-10-15] MEDS: ASCORBIC ACID 500 MG TAB PO SCH (08:32)
[2020-10-15] MEDS: FLUoxetine HCL 20 MG CAP PO SCH (08:32)
[2020-10-15] MEDS: LINAGLIPTIN 5 MG TABLET PO SCH (08:32)
[2020-10-15] MEDS: FUROSEMIDE 20 MG TAB PO SCH (08:32)
[2020-10-15] MEDS: ZINC SULFATE 220 MG CAP PO SCH (08:32)
[2020-10-15] MEDS: CHOLECALCIFEROL 25 MCG (1000 IU) TABLET PO SCH (08:32)
[2020-10-15] MEDS: FLUCONAZOLE 100 MG TAB PO SCH (08:32)
[2020-10-15] MEDS: methylPREDNISolone SOD SUCCI 125 MG/2 ML VIAL IV SCH ×2 (10:51→17:11)
--- NOTE | 2020-10-15 11:16 | P.PN ---
Subjective Progress Note Date: 10/15/20 HISTORY OF PRESENT ILLNESS This is a 65-year-old female patient of Dr. Deras with past medical history significant for heart failure, COPD, chronic hypoxic respiratory failure on home O2 at 2 L nasal cannula and obstructive sleep apnea on BiPAP support at bedtime, diabetes mellitus type 2 with diabetic neuropathy, chronic diastolic heart failure, valvular heart disease, hypertension, hypothyroidism, GI bleed with anemia. Patient has had multiple admissions and multiple endoscopies for GIB and anemia. 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 The bleeding seems to be stable since that time. They, patient presented to the hospital due to chest pain in the midsternal area across her chest seems to be worse after she eats it was hurting after she had breakfast this morning. She complains of shortness of breath with exertion that is worse than the last time she was admitted. She states her stools have been normal. She does complain of abdominal distention and fullness after eating. Patient presented to the [facility] emergency center for evaluation. Patient was found to be afebrile, heart rate 71, blood pressure 140/61, pulse ox 100% on oxygen. WBC 14.8, hemoglobin 8.2 which is stable for this patient. Platelet count is 310. Sodium 138, potassium 4.2, chloride 97, CO2 35, BUN 39 and creatinine 1.34 which is also patient's baseline. Blood sugar 207. D-dimer 0.89. Alkaline phosphatase 160. Troponin negative. Pro- BNP 2570. Lactic acid 1.0. Coronavirus PCR not detected. EKG sinus rhythm with nonspecific ST-T wave changes. Chest x-ray reveals vascular and interstitial markings prominent in the mid to lower lungs bilaterally similar to previous. Consider heart failure versus interstitial infiltrate. CAT scan of the abdomen and pelvis without contrast revealed hepatomegaly and 19.6 cm. Correlate with LFTs and risk factors for underlying hepatocellular disease. 1.3 cm right common iliac chain lymph node is enlarged. Left inguinal femoral chain lymph nodes are borderline enlarged. Findings probably reactive postinflammatory. 1.1 cm indeterminate right adrenal nodule. Moderate stool burden and generalized colonic diverticulosis. Tiny hiatal hernia. Consult was admitted for cardiology and patient has been seen by Dr. Yang for progressive dyspnea secondary to combination of COPD and element of heart failure with preserved systolic function. Plan to continue IV diuretics for 24 hours. 10/07: She has been afebrile, heart rate 86, blood pressure 101/46, pulse ox 90% on 4 L nasal cannula. WBC 11, hemoglobin 7.9, platelet count 319. Sodium 138, potassium 4.3, chloride 95, CO2 37, BUN 31 and creatinine 1.02. Blood sugars have been running 185 up to 405 at its 4 PM yesterday. Patient missed her morning dose of Levemir yesterday. Patient underwent gastric emptying study which was negative for gastroparesis. Patient is continued on IV Lasix at 40 mg every 12 hours. 10/08: Patient is afebrile, heart rate 75, blood pressure 146/57, pulse ox 92% on 3 L nasal cannula. Repeat blood work reveals sodium 138, potassium 4.9, chloride 96, CO2 37, BUN 38 creatinine 1.13. Blood sugars have been running between 211 and 307. Hemoglobin A1c from July is 5.2. Patient has increased dyspnea today along with a dry cough. She complains of shortness of breath with minimal activity, positive orthopnea. Patient was having issues with constipation and last evening and Senokot was added and she states she has had lots of bowel movements. Cardiology increase Lasix every 8 hours. Also Solu-Medrol added. 10/09: Pulse ox is 94% on 3 L nasal cannula. Patient has been afebrile, heart rate 86, blood pressure 134/63. Patient continues to have shortness of breath and nonproductive cough. She is wheezing. Positive shortness of breath with minimal activity. CTA of the chest has been ordered to rule out PE. Blood sugar at 0 was 604 and also high yesterday afternoon, patient received additional NovoLog on top of scale. Levemir 42 units subcu ordered this morning versus her normal dose of 30. Scheduled NovoLog will be increased to 6 units with meals. Solu-Medrol will be decreased to every 12 hours Repeat blood work reveals sodium 131, potassium 5.9, chloride 89, CO2 38, BUN 41 and creatinine 1.15. 10/10: CTA of the chest was suboptimal study without central pulmonary embolism. Cardiomegaly with mild interstitial and alveolar edema raises concern for heart failure exacerbation. No focal consolidation. She is currently on Lasix 40 mg IV 3 times daily. She continues to have shortness of breath, dyspnea with exertion and lower extremity edema. Lasix will be decreased tomorrow to 60 mg oral twice daily. Blood sugars continue to be in the 400s and 500s. She has received additional NovoLog plus scale. Levemir will be increased to 45 units twice daily and scheduled NovoLog increased to 12 units with meals and at at bedtime. Solu-Medrol was discontinued and patient to start prednisone tomorrow. Pulse ox is 95% on 3 L nasal cannula. She's been afebrile, heart rate 60, blood pressure 131/54. Repeat blood work reveals WBC 15.8, hemoglobin 7.5, platelet count 388. Sodium was 129, potassium 6.1 and one dose of Kayexalate 30 mg ordered, oral prednisone scheduled was discontinued and Aldactone decreased to 12.5 mg daily. Chloride 84, CO2 39, BUN 57 and creatinine 1.41. 10/11 and patient examined bedside. Continue have shortness of breath on exertion. For some mild is continued at 40 IV every 8 hours per cardiology. On evaluation as patient's blood work today potassium is improved to 5.1 chloride is 85 bicarb 42 BUN 64 creatinine 1.34 glucose remains high at 444. Lantus increased to 50 twice a day today and NovoLog increased to 15 units with meals continue and follow with sliding scale. Solu-Medrol switched to prednisone 40 mg daily the patient labs tomorrow 10/12 patient examined at bedside. As shortness of breath on exertion and fatigue. Vitals checked in the room such as patient's systolic over 80s. Vitals as checked at 1 PM suggest blood pressure 125/71 with oxygen saturation of 96% on 8 L (55 years. 16 hold patient's blood pressure medication and Lasix today as patient's blood pressure is on the lower side. ABG to be obtained with a pH of 7.34 pCO2 of 81 pO2 59 and bicarb 43 appears to be secondary to metabolic alkalosis secondary to overdiuresis.. Patient to be placed on BiPAP for COPD exacerbation. Hold Lasix and metolazone. Continue Levemir at the current dose of 50 subcu twice a day with insulin aspart 15 subcu before meals and at bedtime. 10/13: Seen today in follow-up. Her hemoglobin is 7.4 and one dose of Ferrlecit IV will be ordered. Lasix will be resumed today at 60 mg oral. Patient utilizes BiPAP last night. She has gotten encouraged to use this during the day as well. 10/14: Patient noted to have a hacking barking cough. She states it started around 1:00 this morning and has been up all night coughing. She denies having any fever or chills. She denies any nausea or vomiting. A rapid Covid test was ordered which surprisingly came back positive. She has been afebrile, heart rate 91, blood pressure 148/63, pulse ox 94% on 2 L nasal cannula. WBC 9.1, hemoglobin 7.6, platelet count 297. D-dimer 0.83, LDH 669. C-reactive protein 1.6. Sodium 133, potassium 4.6, chloride 90, CO2 34, BUN 49 and creatinine 1.31. She is followed by pulmonary medicine. 10/15: Patient has not been able to sleep since 2 AM. She's experienced increased dyspnea. We have documented a 93% pulse ox on 2 L nasal cannula but this does not reflect patient's condition at the time. Patient had increasing dyspnea along with feeling tired and weak. Patient was transitioned to BiPAP and continues to have dyspnea. She has been utilizing BiPAP at nighttime and somewhat during the day for high CO2 has been improving Patient noted to have wheezing and will be placed back on Solu-Medrol 60 mg IV every 6 hours. We are also increasing Levemir and scheduled NovoLog to cover for hyperglycemia. She will be transferred to the cardiac stepdown unit and pulmonary medicine to be notified of patient's condition. Patient has been afebrile, heart rate 93, blood pressure 113/63, pulse ox 97% on 30% BiPAP. Repeat inflammatory markers ordered for tomorrow. REVIEW OF SYSTEMS Constitutional: No fever, no chills, no night sweats. No weight change. Reports sitting weakness and fatigue. No daytime sleepiness. EENT: No headache. No blurred vision or double vision, no loss of vision. No loss of Hearing, no ringing in the ears, no dizziness. No nasal drainage or congestion. No epistaxis. No sore throat. Lungs: Reports shortness of breath, reports cough, no sputum production. Reports wheezing. Reports dyspnea with exertion. Cardiovascular: No chest pain, no lower extremity edema. No palpitations. No paroxysmal nocturnal dyspnea. No orthopnea. No lightheadedness or dizziness. No syncopal episodes. Abdominal: Reports upper abdominal pain. No nausea, vomiting. no diarrhea. Reports constipation. No bloody reports tarry stools. Denies bright red bleeding. no loss of appetite. Genitourinary: No dysuria, increased frequency, urgency. No urinary retention. Musculoskeletal: No myalgias. No muscle weakness, no gait dysfunction, no frequent falls. No back pain. No neck pain. Integumentary: No wounds, no lesions. No rash or pruritus. No unusual bruising. No change in hair or nails. Neurologic: No aphasia. No facial droop. No change in mentation. No head injury. No headache. No paralysis. No paresthesia. Psychiatric: No depression. No anxiety. Endocrine: Reported reports abnormal blood sugars. No weight change. PHYSICAL EXAMINATION Gen: This is a 65-year-old female. She is resting and recliner and appears to be mild respiratory distress. HEENT: Head is atraumatic, normocephalic. Pupils equal, round. Sclerae is anicteric. Conjunctiva pale. NECK: Supple. No JVD. No lymphadenopathy. No thyromegaly. LUNGS: Bilateral wheezing. Mild to moderate intercostal retractions. Mild to moderate accessory muscle usage. HEART: Regular rate and rhythm. Systolic murmur. ABDOMEN: Soft. Bowel sounds are present. No masses. No tenderness. EXTREMITIES: No pedal edema. No calf tenderness. Dorsalis pedis +2 bilaterally. NEUROLOGICAL: Patient is awake, alert and oriented x3. Cranial nerves 2 through 12 are grossly intact. ASSESSMENT AND PLAN 1. Chronic hypoxic respiratory failure with progressive dyspnea secondary to COPD and acute on chronic diastolic heart failure as well as Covid 19 pneumonia, POA. Continue Lasix at 60 mg oral daily, continue metolazone 2.5 mg on Tuesday. Aldactone 12.5 mg daily, discontinue prednisone and resume patient back on Solu-Medrol 60 mg IV every 6 hours. CTA of the chest ruled out pulmonary embolism. Transfer patient to cardiac stepdown unit. 2. Upper abdominal/lower chest pain with abdominal bloating and early satiety, ruled out gastroparesis. Most likely secondary to constipation and fecal burden. Continue Senokot 2 daily at 1800. 3. 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 Continue Protonix 40 mg oral twice daily. Status post Ferrlecit infusion 1. 4. Diabetes mellitus type 2 with diabetic neuropathy uncontrolled with hyperglycemia secondary to steroids. Continue Levemir increased to 60 units twice daily, scheduled NovoLog increased to 20 units before meals and at bedtime, continue NovoLog scale before meals and at bedtime. Continue Januvia 100 mg daily. Hemoglobin A1c in July was 5.2. 5. Diabetic neuropathy. Continue Lyrica 200 milligrams twice daily. 6. COPD without exacerbation. Continue DuoNeb treatment 4 times daily as needed, Pulmicort 1 mg twice daily, Singulair 10 mg at bedtime. 7. Hypertension. Continue Lasix, Lopressor 100 mg twice daily. 8. Hyperlipidemia. Continue Lipitor 40 mg daily. 9. Obstructive sleep apnea. Continue BiPAP at night. 10. Hypothyroidism. Continue levothyroxine 125 g daily. Restless leg syndrome. Continue Requip 2 mg twice daily. 11. Recurrent depression. Continue Prozac 20 mg daily. 12. Oral thrush. Diflucan 100 mg daily. 13. Acute kidney injury. Lasix and Aldactone held, lower dose of Lasix oral be resumed today. 14. Hyperkalemia, resolved status post Kayexalate 1. 15. Metabolic alkalosis secondary to overdiuresis. Diamox discontinued, continue BiPAP. 16. GI prophylaxis. Protonix twice daily. 17. DVT prophylaxis. Heparin subcu every 12 hours. DISCHARGE PLAN Home Impression and plan of care have been directed as dictated by the signing physician. Clarice Colón nurse practitioner acting as scribe for signing physician. Objective - Vital Signs Vital signs: Vital Signs Temp 97.1 F L 10/15/20 09:10 Pulse 93 10/15/20 10:19 Resp 24 10/15/20 10:19 BP 113/63 10/15/20 10:19 Pulse Ox 97 10/15/20 10:19 Intake & Output 10/14/20 10/15/20 10/15/20 18:59 06:59 18:59 Intake Total 1100 Output Total 2300 1100 Balance -2300 0 Weight 111 kg Intake: Oral 1100 Output: Urine 2300 1100 Other: Voiding Method Toilet Toilet Toilet # Voids 1 - Labs CBC & Chem 7: 10/14/20 07:29 10/14/20 07:29 Labs: Abnormal Lab Results - Last 24 Hours (Table) 10/14/20 10/14/20 10/14/20 Range/Units 11:43 11:43 12:54 D-Dimer 0.83 H (<0.60) mg/L FEU POC Glucose (mg/dL) 370 H (75-99) mg/dL Lactate Dehydrogenase 669 H (313-618) U/L C-Reactive Protein 1.6 H (<1.0) mg/dL 10/14/20 10/14/20 10/15/20 Range/Units 17:41 20:03 06:30 D-Dimer (<0.60) mg/L FEU POC Glucose (mg/dL) 491 H 508 H 297 H (75-99) mg/dL Lactate Dehydrogenase (313-618) U/L C-Reactive Protein (<1.0) mg/dL
[2020-10-15 11:52] LABS: Glucose,Whole Blood 244 mg/dL (75-99)
--- NOTE | 2020-10-15 12:09 | P.PN ---
Subjective Progress Note Date: 10/15/20 Principal diagnosis: Shortness of breath. 65-year-old female patient was hospitalized for shortness of breath. The patient was originally admitted to the hospital on 09/26/2020 on seeing this patient in consultation for dyspnea today. She is known to have multiple medical problems and comorbidities. 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 The patient is morbidly obese and she has COPD along with chronic hypoxic respiratory failure and she uses a nocturnal BiPAP device. She has obstructive sleep apnea. She has hypothyroidism and chronic edema lower extremities. During this current admission, the patient presented with some shortness of breath and a CT angiogram of the chest was done on 10/09/2020 and the CTA showed suboptimal study regarding the possibility of pulmonary embolism, nevertheless, there was cut or megaly and mild interstitial and alveolar edema concerning for underlying congestion heart failure. The chest x-rays also showing cardiomegaly with pulmonary vascular congestion. Patient is currently on Lasix 60 mg by mouth twice a day. The patient is also on prednisone 40 mg by mouth daily as part of a burst taper. I see that she was also taking Diamox and currently the Diamox is on hold. She'll DuoNeb neb achievements [id number]. Outpatient medications of been ordered resume. Her creatinine and creatinine is at 1.5 and the patient has a component of an acute kidney injury knowing that her baseline renal function was stable. She was also on Zaroxolyn which was also placed on hold. Progress note dated 10/15/2020. This is a 65-year-old female, well-known to our service. The patient was admitted back on October 06. She was seen by Dr. Gomes on October 12. More recently, the patient's saturations became low, she was more short of breath. The patient was transferred over or will be transferred over to [facility]. Currently, she is on BiPAP with IPAP of 12, EPAP of 6. FiO2 is 30%. As I mention, the patient was admitted on October 06. She apparently also tested positive for COVID on October 14. Currently she is on the pediatrics floor. Chest x-ray showed diffuse interstitial infiltrates, consistent with either interstitial edema, or pneumonitis secondary to coronavirus. Most recent labs were from October 14, with a white count 9.1, hemoglobin 7.6, hematocrit 28.2, and platelet count 297,000. D-dimer was 0.83. Sodium 133, potassium 4.6, chlorides 90, CO2 34, anion gap 9, BUN 49, creatinine 1.31. LDH 669, C-reactive protein 1.6. Objective - Vital Signs Vital signs: Vital Signs Temp 97.1 F L 10/15/20 09:10 Pulse 93 10/15/20 10:19 Resp 24 10/15/20 10:19 BP 113/63 10/15/20 10:19 Pulse Ox 97 10/15/20 10:19 Intake & Output 10/14/20 10/15/20 10/15/20 18:59 06:59 18:59 Intake Total 1100 Output Total 2300 1100 Balance -2300 0 Weight 111 kg Intake: Oral 1100 Output: Urine 2300 1100 Other: Voiding Method Toilet Toilet Toilet # Voids 1 - Exam No acute distress, sleeping, with BiPAP mask in place. She does arouse. HEENT examination is grossly unremarkable. Neck supple. Full range of motion. No adenopathy thyromegaly or neck vein distention. Cardiovascular examination reveals regular rhythm rate. S1-S2 normal. No S3 or S4. No discernible murmur noted. Heart sounds are distant. Heart rate 93 bpm. Lungs reveal bilateral rhonchi. No wheezes or crackles. Breath sounds equal bilaterally. Breath sounds are diminished. Abdomen soft bowel sounds are heard. No masses or tenderness. Extremities are intact. No cyanosis clubbing or edema. Skin is without rash or lesion. Neurologic examination is brief but nonfocal. - Labs CBC & Chem 7: 10/14/20 07:29 10/14/20 07:29 Labs: Abnormal Lab Results - Last 24 Hours (Table) 10/14/20 10/14/20 10/14/20 Range/Units 11:43 11:43 12:54 D-Dimer 0.83 H (<0.60) mg/L FEU POC Glucose (mg/dL) 370 H (75-99) mg/dL Lactate Dehydrogenase 669 H (313-618) U/L C-Reactive Protein 1.6 H (<1.0) mg/dL 04/20/21 04/20/21 04/21/21 Range/Units 17:41 20:03 06:30 D-Dimer (<0.60) mg/L FEU POC Glucose (mg/dL) 491 H 508 H 297 H (75-99) mg/dL Lactate Dehydrogenase (313-618) U/L C-Reactive Protein (<1.0) mg/dL 10/15/20 Range/Units 11:50 D-Dimer (<0.60) mg/L FEU POC Glucose (mg/dL) 244 H (75-99) mg/dL Lactate Dehydrogenase (313-618) U/L C-Reactive Protein (<1.0) mg/dL Assessment and Plan Assessment: Acute hypoxemic respiratory failure, likely multifactorial, in part related to COPD exacerbation, diastolic CHF, and possible COVID 19 pneumonitis. History of GI bleed, secondary to duodenal AV malformation. History of chronic diastolic CHF. History of chronic obstructive pulmonary disease, with chronic hypoxemic respir atory failure, on home O2 at 4 L. Morbid obesity. History of diabetes mellitus. History of pneumonia. Diabetic neuropathy. Valvular heart disease/aortic stenosis. Obstructive sleep apnea syndrome. History of hypothyroidism. Previous history of heavy tobacco use. History of depression. Chronic lower extremity edema. Plan: Plan dated 10/15/2020. The patient will be moved from [facility] over to [address] [place] [address]. Patient's currently on BiPAP with settings of IPAP 12, EPAP 6, and 30%. Seemed relatively comfortable. Currently, she is on vitamin C, vitamin D3, and zinc. In addition, the patient is getting Solu-Medrol 60 mg every 6 hours. The subcu heparin should be discontinued in favor of Lovenox, 40 mg subcu daily. Additional recommendations and suggestions are forthcoming. We will continue to follow. Prognosis is guarded. The patient has been feeling poorly for some time, even before her admission on October 06. She is likely outside the window for REM. Time with Patient: Less than 30
--- NOTE | 2020-10-15 15:29 | P.PN ---
Subjective This is a pleasant 65 showed female past medical history significant for COPD, anemia, aortic stenosis, morbid obesity, diabetes mellitus, dyslipidemia and hypertension. She follows in the office with Dr. Samayoa. We are currently following secondary to exacerbation of heart failure and diuresed the patient with IV diuretics, now transitioned to PO due to being dry and elevated serum creatinine. 10/15/19- patient developed a worsening cough. Rapid COVID-19 test was ordered which came back positive. Diamox was discontinued. She is seen and examined sitting up on the edge of the bed. She did wear Bipap last night and states her breathing has improved. She had a rough night last night. She is using her incentive spirometer frequently pulling 1000mL volumes. Blood pressure 112/58 heart rate92 afebrile and maintaining oxygen saturation on nasal cannula. Lab data reviewed, WBC 9.1, hgb 7.6 stable plt 297, sodium 133, potassium 4.6, creatinine 1.31 (1.55 yesterday) which is her baseline. GENERAL: Well-appearing, well-nourished and in no acute distress. Thorough physical exam not completed due to covid-19 infection ASSESSMENT COVID-19 infection Acute on chronic diastolic heart failure COPD Leukocytosis Acute on Chronic kidney disease - holding Aldactone and IV Lasix Chronic anemia with recent history of active bleeding noted on capsule study Hypertension Dyslipidemia - on lipitor Diabetes mellitus Aortic stenosis Morbid obesity, BMI 48 Hyperkalemia- resolved with Kayexalate PLAN Treatment for Covid has been initiated by PCP. Cautious diuresis, patient currently on Lasix PO 60mg daily Continue Lopressor 100mg BID, Imdur 30mg daily Nurse Practitioner note has been reviewed, I agree with a documented findings and plan of care. Patient was seen and examined. Objective - Vital Signs Vital signs: Vital Signs Temp 97.1 F L 10/15/20 09:10 Pulse 90 10/15/20 11:35 Resp 26 H 10/15/20 11:35 BP 130/68 10/15/20 11:35 Pulse Ox 99 10/15/20 11:35 Intake & Output 10/14/20 10/15/20 10/15/20 18:59 06:59 18:59 Intake Total 1100 Output Total 2300 1100 275 Balance -2300 0 -275 Weight 111 kg Intake: Oral 1100 Output: Urine 2300 1100 275 Other: Voiding Method Toilet Toilet Toilet # Voids 1 - Labs CBC & Chem 7: 10/14/20 07:29 10/14/20 07:29 Labs: Abnormal Lab Results - Last 24 Hours (Table) 10/14/20 10/14/20 10/14/20 Range/Units 12:54 17:41 20:03 POC Glucose (mg/dL) 370 H 491 H 508 H (75-99) mg/dL 10/15/20 10/15/20 Range/Units 06:30 11:50 POC Glucose (mg/dL) 297 H 244 H (75-99) mg/dL
[2020-10-15 15:38] LABS: Ferritin 101.5 ng/mL (10.0-291.0)
[2020-10-15 17:23] LABS: Glucose,Whole Blood 321 mg/dL (75-99)
[2020-10-15] MEDS: SENNOSIDES-DOCUSATE SODIUM 1 EACH TAB PO SCH (17:43)
[2020-10-15 20:27] LABS: Glucose,Whole Blood 263 mg/dL (75-99)
[2020-10-15] MEDS: MONTELUKAST 10 MG TAB PO SCH (21:07)
[2020-10-16] MEDS: methylPREDNISolone SOD SUCCI 125 MG/2 ML VIAL IV SCH ×4 (00:51→23:43)
[2020-10-16] MEDS: Acetaminophen-Codeine 300-30mg TAB PO PRN ×2 (02:25→09:15)
[2020-10-16] MEDS: ONDANSETRON 4 MG/2 ML VIAL IVP PRN (03:57)
[2020-10-16] MEDS: LEVOTHYROXINE 125 MCG TAB PO SCH (05:55)
[2020-10-16 07:23] LABS: Glucose,Whole Blood 500 mg/dL (75-99)
[2020-10-16] MEDS: INSULIN DETEMIR (LEVEMIR) 100 UNIT/ML SYR SQ SCH ×2 (07:39→21:55)
[2020-10-16] MEDS: INSULIN ASPART (NovoLOG) 100 UNIT/ML VIAL SQ SCH ×8 (08:48→21:56)
[2020-10-16] MEDS: FUROSEMIDE 20 MG TAB PO SCH (08:49)
[2020-10-16] MEDS: FLUoxetine HCL 20 MG CAP PO SCH (08:49)
[2020-10-16] MEDS: PANTOPRAZOLE 40 MG TABLET PO SCH ×2 (08:49→18:04)
[2020-10-16] MEDS: ASCORBIC ACID 500 MG TAB PO SCH (08:49)
[2020-10-16] MEDS: PREGABALIN 100 MG CAP PO SCH ×2 (08:49→21:55)
[2020-10-16] MEDS: guaiFENesin 600 MG TABLET.ER PO SCH ×2 (08:50→21:55)
[2020-10-16] MEDS: ZINC SULFATE 220 MG CAP PO SCH (08:50)
[2020-10-16] MEDS: CHOLECALCIFEROL 25 MCG (1000 IU) TABLET PO SCH (08:50)
[2020-10-16] MEDS: LINAGLIPTIN 5 MG TABLET PO SCH (08:51)
[2020-10-16] MEDS: HEPARIN SODIUM,PORCINE/PF 5,000 UNIT/0.5 ML SYRINGE SQ SCH ×2 (08:51→21:55)
[2020-10-16] MEDS: FLUCONAZOLE 100 MG TAB PO SCH (08:52)
[2020-10-16] MEDS: FLUTICASONE 220 MCG INHALER INHALATION SCH ×2 (08:57→21:09)
[2020-10-16] MEDS: TIOTROPIUM 2.5 MCG INHALER INHALATION SCH (08:57)
[2020-10-16] MEDS: ALBUTEROL HFA INHALER INHALATION SCH ×4 (08:57→21:09)
[2020-10-16 12:01] LABS: Glucose,Whole Blood 484 mg/dL (75-99)
[2020-10-16 12:55] LABS: ALT 22 U/L (4-34); AST 30 U/L (14-36); African American GFR (CKD) 52 (>60 ml/min/1.73 sqM); Albumin 3.8 g/dL (3.5-5.0); Albumin/Globulin Ratio 1.3; Alkaline Phosphatase 132 U/L (38-126); Anion Gap 12 mmol/L; Blood Urea Nitrogen 43 mg/dL (7-17); C Reactive Protein 2.8 mg/dL (<1.0); Calcium 8.6 mg/dL (8.4-10.2); Carbon Dioxide 28 mmol/L (22-30); Chloride 91 mmol/L (98-107); Globulin 2.9 g/dL; Glucose 464 mg/dL (74-99); LDH 906 U/L (313-618); Non-African American GFR(CKD) 45 (>60 ml/min/1.73 sqM); Potassium 5.1 mmol/L (3.5-5.1); Sodium 131 mmol/L (137-145); Total Bilirubin 0.3 mg/dL (0.2-1.3); Total Protein 6.7 g/dL (6.3-8.2)
[2020-10-16 13:15] LABS: Anisocytosis Slight; Basophils % (A) 0 %; Eosinophils % (A) 0 %; HCT 30.5 % (34.0-46.0); HGB 7.9 gm/dL (11.4-16.0); Hypochromasia Marked; Lymphocytes # (A) 0.4 k/uL (1.0-4.8); Lymphocytes % (A) 5 %; MCH 21.3 pg (25.0-35.0); MCV 81.9 fL (80.0-100.0); Mean Platelet Volume 8.1; Microcytosis Slight; Monocytes # (A) 0.6 k/uL (0-1.0); Monocytes % (A) 7 %; Neutrophils # (A) 8.1 k/uL (1.3-7.7); Neutrophils % (A) 87 %; Platelet Count 266 k/uL (150-450); Poikilocytosis Slight; RBC 3.72 m/uL (3.80-5.40); RDW 19.6 % (11.5-15.5); WBC 9.2 k/uL (3.8-10.6)
--- NOTE | 2020-10-16 13:51 | P.PN ---
Subjective Progress Note Date: 10/16/20 Principal diagnosis: Shortness of breath. 65-year-old female patient was hospitalized for shortness of breath. The patient was originally admitted to the hospital on 09/26/2020 on seeing this patient in consultation for dyspnea today. She is known to have multiple medical problems and comorbidities. 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 The patient is morbidly obese and she has COPD along with chronic hypoxic respiratory failure and she uses a nocturnal BiPAP device. She has obstructive sleep apnea. She has hypothyroidism and chronic edema lower extremities. During this current admission, the patient presented with some shortness of breath and a CT angiogram of the chest was done on 10/09/2020 and the CTA showed suboptimal study regarding the possibility of pulmonary embolism, nevertheless, there was cut or megaly and mild interstitial and alveolar edema concerning for underlying congestion heart failure. The chest x-rays also showing cardiomegaly with pulmonary vascular congestion. Patient is currently on Lasix 60 mg by mouth twice a day. The patient is also on prednisone 40 mg by mouth daily as part of a burst taper. I see that she was also taking Diamox and currently the Diamox is on hold. She'll DuoNeb neb achievements [id number]. Outpatient medications of been ordered resume. Her creatinine and creatinine is at 1.5 and the patient has a component of an acute kidney injury knowing that her baseline renal function was stable. She was also on Zaroxolyn which was also placed on hold. Progress note dated 10/15/2020. This is a 65-year-old female, well-known to our service. The patient was admitted back on October 06. She was seen by Dr. Gomes on October 12. More recently, the patient's saturations became low, she was more short of breath. The patient was transferred over or will be transferred over to [facility]. Currently, she is on BiPAP with IPAP of 12, EPAP of 6. FiO2 is 30%. As I mention, the patient was admitted on October 06. She apparently also tested positive for COVID on October 14. Currently she is on the pediatrics floor. Chest x-ray showed diffuse interstitial infiltrates, consistent with either interstitial edema, or pneumonitis secondary to coronavirus. Most recent labs were from October 14, with a white count 9.1, hemoglobin 7.6, hematocrit 28.2, and platelet count 297,000. D-dimer was 0.83. Sodium 133, potassium 4.6, chlorides 90, CO2 34, anion gap 9, BUN 49, creatinine 1.31. LDH 669, C-reactive protein 1.6. Progress note dated 10/16/2020. 65-year-old female, well-known to our service. The patient was seen by my partner initially, but at that time was doing relatively well, and we did not continue to see the patient. The patient was admitted back on October 06. She was seen by Dr. Gomes, on October 12. We were asked to re-see her, because she was more short of breath. She was placed on BiPAP at 12/6 and 30%. Yesterday she was quite lethargic and sleepy. Currently, she is on 3 L. She sitting at the bedside. She feels much better. She is much more awake and alert. She is a CO2 retainer, and if she gets excess oxygen, or any sedatives, hypnotics, narcotics, or tranquilizers, she will have worsening hypercapnic respiratory failure and will become very somnolent/lethargic. Currently labs include a white count 9.2, hemoglobin 7.9, hematocrit 30.5, and platelet count a 66,000. D-dimer is 0.86. Sodium 131, potassium 5.1, chlorides 91, CO2 28, anion gap is 12, BUN 43, and creatinine 1.24. LDH 906 and C-reactive protein is 2.8. She did test positive for coronavirus. Objective - Vital Signs Vital signs: Vital Signs Temp 98.1 F 10/16/20 08:00 Pulse 82 10/16/20 08:00 Resp 18 10/16/20 08:00 BP 151/56 10/16/20 08:00 Pulse Ox 90 L 10/16/20 08:00 Intake & Output 10/15/20 10/16/20 10/16/20 18:59 06:59 18:59 Output Total 275 Balance -275 Weight 113 kg Output: Urine 275 Other: Voiding Method Toilet Toilet Toilet - Exam No acute distress, much more awake and alert, currently on nasal O2 at 3 L. Sitting at the bedside, without any respiratory distress or difficulty. HEENT examination is grossly unremarkable. Neck supple. Full range of motion. No adenopathy thyromegaly or neck vein distention. Cardiovascular examination reveals regular rhythm rate. S1-S2 normal. No S3 or S4. No discernible murmur noted. Heart sounds are distant. Heart rate 82 bpm. Lungs reveal bilateral rhonchi. No wheezes or crackles. Breath sounds equal bilaterally. Breath sounds are diminished. Abdomen soft bowel sounds are heard. No masses or tenderness. Extremities are intact. No cyanosis clubbing or edema. Skin is without rash or lesion. Neurologic examination is brief but nonfocal. - Labs CBC & Chem 7: 10/16/20 11:24 10/16/20 11:24 Labs: Abnormal Lab Results - Last 24 Hours (Table) 10/15/20 10/15/20 10/16/20 Range/Units 17:22 20:25 07:21 RBC (3.80-5.40) m/uL Hgb (11.4-16.0) gm/dL Hct (34.0-46.0) % MCH (25.0-35.0) pg MCHC (31.0-37.0) g/dL RDW (11.5-15.5) % Neutrophils # (1.3-7.7) k/uL Lymphocytes # (1.0-4.8) k/uL D-Dimer (<0.60) mg/L FEU Sodium (137-145) mmol/L Chloride (98-107) mmol/L BUN (7-17) mg/dL Creatinine (0.52-1.04) mg/dL Glucose (74-99) mg/dL POC Glucose (mg/dL) 321 H 263 H 500 H (75-99) mg/dL Alkaline Phosphatase (38-126) U/L Lactate Dehydrogenase (313-618) U/L C-Reactive Protein (<1.0) mg/dL 10/16/20 10/16/20 10/16/20 Range/Units 11:24 11:24 11:24 RBC 3.72 L (3.80-5.40) m/uL Hgb 7.9 L (11.4-16.0) gm/dL Hct 30.5 L (34.0-46.0) % MCH 21.3 L (25.0-35.0) pg MCHC 26.0 L (31.0-37.0) g/dL RDW 19.6 H (11.5-15.5) % Neutrophils # 8.1 H (1.3-7.7) k/uL Lymphocytes # 0.4 L (1.0-4.8) k/uL D-Dimer 0.86 H (<0.60) mg/L FEU Sodium 131 L (137-145) mmol/L Chloride 91 L (98-107) mmol/L BUN 43 H (7-17) mg/dL Creatinine 1.24 H (0.52-1.04) mg/dL Glucose 464 H (74-99) mg/dL POC Glucose (mg/dL) (75-99) mg/dL Alkaline Phosphatase 132 H (38-126) U/L Lactate Dehydrogenase 906 H (313-618) U/L C-Reactive Protein 2.8 H (<1.0) mg/dL 10/16/20 Range/Units 11:59 RBC (3.80-5.40) m/uL Hgb (11.4-16.0) gm/dL Hct (34.0-46.0) % MCH (25.0-35.0) pg MCHC (31.0-37.0) g/dL RDW (11.5-15.5) % Neutrophils # (1.3-7.7) k/uL Lymphocytes # (1.0-4.8) k/uL D-Dimer (<0.60) mg/L FEU Sodium (137-145) mmol/L Chloride (98-107) mmol/L BUN (7-17) mg/dL Creatinine (0.52-1.04) mg/dL Glucose (74-99) mg/dL POC Glucose (mg/dL) 484 H (75-99) mg/dL Alkaline Phosphatase (38-126) U/L Lactate Dehydrogenase (313-618) U/L C-Reactive Protein (<1.0) mg/dL Assessment and Plan Assessment: Acute hypoxemic respiratory failure, likely multifactorial, in part related to COPD exacerbation, diastolic CHF, and possible COVID 19 pneumonitis. History of GI bleed, secondary to duodenal AV malformation. History of chronic diastolic CHF. History of chronic obstructive pulmonary disease, with chronic hypoxemic respiratory failure, on home O2 at 4 L. Morbid obesity. History of diabetes mellitus. History of pneumonia. Diabetic neuropathy. Valvular heart disease/aortic stenosis. Obstructive sleep apnea syndrome. History of hypothyroidism. Previous history of heavy tobacco use. History of depression. Chronic lower extremity edema. Plan: Plan dated 10/15/2020. The patient will be moved from [facility] to [address] [place] [address]. Patient's currently on BiPAP with settings of IPAP 12, EPAP 6, and 30%. Seemed relatively comfortable. Currently, she is on vitamin C, vitamin D3, and zinc. In addition, the patient is getting Solu-Medrol 60 mg every 6 hours. The subcu heparin should be discontinued in favor of Lovenox, 40 mg subcu daily. Addition al recommendations and suggestions are forthcoming. We will continue to follow. Prognosis is guarded. The patient has been feeling poorly for some time, even before her admission on October 06. She is likely outside the window for REM. Plan dated 10/16/2020. The patient's doing much better. She is on 3 L nasal cannula. She sitting at the bedside. Yesterday, she was quite lethargic while on BiPAP. The patient is a CO2 retainer. One has to be very careful with any sedatives or hypnotics or narcotics on this patient. Saturations are this patient are perfectly acceptable 88-92%. We will continue to follow. Prognosis is guarded. She should be on Lovenox 40 mg subcu daily would not subcu heparin. We will continue to follow make recommendations. The patient was outside the window for REM. Time with Patient: Less than 30
--- NOTE | 2020-10-16 14:04 | P.PN ---
Subjective This is a pleasant 65 showed female past medical history significant for COPD, anemia, aortic stenosis, morbid obesity, diabetes mellitus, dyslipidemia and hypertension. She follows in the office with Dr. Samayoa. We are currently following secondary to exacerbation of heart failure and diuresed the patient with IV diuretics, now transitioned to PO due to being dry and elevated serum creatinine. 10/15/19- patient developed a worsening cough. Rapid COVID-19 test was ordered which came back positive. Diamox was discontinued. She is seen and examined sitting up on the edge of the bed. She did wear Bipap last night and states her breathing has improved. She is using her incentive spirometer frequently pulling 1000mL volumes. Blood pressure 133/63 heart rate 78 afebrile and continues to require nasal cannula oxygen.. Lab data reviewed, WBC 9.2, hemoglobin 7.9, platelets 266, sodium 131, potassium 5.1, BNP 1180 (improved from 2620 on 10/11) creatinine is improving 1.24 (1.31 yesterday) GENERAL: Well-appearing, well-nourished and in no acute distress. Cardiac: Regular S1 S2 [place] Lungs: bilateral rhonchi and diminished Extremities: no lower extremity edema. ASSESSMENT COVID-19 infection Acute on chronic diastolic heart failure COPD Leukocytosis Acute on Chronic kidney disease - holding Aldactone and IV Lasix Chronic anemia with recent history of active bleeding noted on capsule study Hypertension Dyslipidemia - on lipitor Diabetes mellitus Aortic stenosis Morbid obesity, BMI 48 Hyperkalemia- resolved with Kayexalate PLAN Treatment for Covid has been initiated by PCP. Cautious diuresis, patient currently on Lasix PO 60mg daily Continue Lopressor 100mg BID, Imdur 30mg daily At this time, no further cardiac workup or change in treatment at this time. We will follow the patient as an as-needed basis. Please reach out for any further questions or concerns. Nurse Practitioner note has been reviewed, I agree with a documented findings and plan of care. Patient was seen and examined. Objective - Vital Signs Vital signs: Vital Signs Temp 98.1 F 10/16/20 08:00 Pulse 82 10/16/20 08:00 Resp 18 10/16/20 08:00 BP 151/56 10/16/20 08:00 Pulse Ox 90 L 10/16/20 08:00 Intake & Output 10/15/20 10/16/20 10/16/20 18:59 06:59 18:59 Output Total 275 Balance -275 Weight 113 kg Output: Urine 275 Other: Voiding Method Toilet Toilet Toilet - Labs CBC & Chem 7: 10/16/20 11:24 10/16/20 11:24 Labs: Abnormal Lab Results - Last 24 Hours (Table) 10/15/20 10/15/20 10/16/20 Range/Units 17:22 20:25 07:21 RBC (3.80-5.40) m/uL Hgb (11.4-16.0) gm/dL Hct (34.0-46.0) % MCH (25.0-35.0) pg MCHC (31.0-37.0) g/dL RDW (11.5-15.5) % Neutrophils # (1.3-7.7) k/uL Lymphocytes # (1.0-4.8) k/uL D-Dimer (<0.60) mg/L FEU Sodium (137-145) mmol/L Chloride (98-107) mmol/L BUN (7-17) mg/dL Creatinine (0.52-1.04) mg/dL Glucose (74-99) mg/dL POC Glucose (mg/dL) 321 H 263 H 500 H (75-99) mg/dL Alkaline Phosphatase (38-126) U/L Lactate Dehydrogenase (313-618) U/L C-Reactive Protein (<1.0) mg/dL 10/16/20 10/16/20 10/16/20 Range/Units 11:24 11:24 11:24 RBC 3.72 L (3.80-5.40) m/uL Hgb 7.9 L (11.4-16.0) gm/dL Hct 30.5 L (34.0-46.0) % MCH 21.3 L (25.0-35.0) pg MCHC 26.0 L (31.0-37.0) g/dL RDW 19.6 H (11.5-15.5) % Neutrophils # 8.1 H (1.3-7.7) k/uL Lymphocytes # 0.4 L (1.0-4.8) k/uL D-Dimer 0.86 H (<0.60) mg/L FEU Sodium 131 L (137-145) mmol/L Chloride 91 L (98-107) mmol/L BUN 43 H (7-17) mg/dL Creatinine 1.24 H (0.52-1.04) mg/dL Glucose 464 H (74-99) mg/dL POC Glucose (mg/dL) (75-99) mg/dL Alkaline Phosphatase 132 H (38-126) U/L Lactate Dehydrogenase 906 H (313-618) U/L C-Reactive Protein 2.8 H (<1.0) mg/dL 10/16/20 Range/Units 11:59 RBC (3.80-5.40) m/uL Hgb (11.4-16.0) gm/dL Hct (34.0-46.0) % MCH (25.0-35.0) pg MCHC (31.0-37.0) g/dL RDW (11.5-15.5) % Neutrophils # (1.3-7.7) k/uL Lymphocytes # (1.0-4.8) k/uL D-Dimer (<0.60) mg/L FEU Sodium (137-145) mmol/L Chloride (98-107) mmol/L BUN (7-17) mg/dL Creatinine (0.52-1.04) mg/dL Glucose (74-99) mg/dL POC Glucose (mg/dL) 484 H (75-99) mg/dL Alkaline Phosphatase (38-126) U/L Lactate Dehydrogenase (313-618) U/L C-Reactive Protein (<1.0) mg/dL
[2020-10-16] MEDS: MORPHINE SULFATE 2 MG/ML SYRINGE IVP PRN ×2 (15:27→23:44)
--- NOTE | 2020-10-16 16:09 | P.PN ---
Subjective Progress Note Date: 10/16/20 This is a 65-year-old female patient of Dr. Deras with past medical history significant for heart failure, COPD, chronic hypoxic respiratory failure on home O2 at 2 L nasal cannula and obstructive sleep apnea on BiPAP support at bedtime, diabetes mellitus type 2 with diabetic neuropathy, chronic diastolic heart failure, valvular heart disease, hypertension, hypothyroidism, GI bleed with anemia. Patient has had multiple admissions and multiple endoscopies for GIB and anemia. 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 The bleeding seems to be stable since that time. They, patient presented to the hospital due to chest pain in the midsternal area across her chest seems to be worse after she eats it was hurting after she had breakfast this morning. She complains of shortness of breath with exertion that is worse than the last time she was admitted. She states her stools have been normal. She does complain of abdominal distention and fullness after eating. Patient presented to the [facility] emergency center for evaluation. Patient was found to be afebrile, heart rate 71, blood pressure 140/61, pulse ox 100% on oxygen. WBC 14.8, hemoglobin 8.2 which is stable for this patient. Platelet count is 310. Sodium 138, potassium 4.2, chloride 97, CO2 35, BUN 39 and creatinine 1.34 which is also patient's baseline. Blood sugar 207. D-dimer 0.89. Alkaline phosphatase 160. Troponin negative. Pro- BNP 2570. Lactic acid 1.0. Coronavirus PCR not detected. EKG sinus rhythm with nonspecific ST-T wave changes. Chest x-ray reveals vascular and int erstitial markings prominent in the mid to lower lungs bilaterally similar to previous. Consider heart failure versus interstitial infiltrate. CAT scan of the abdomen and pelvis without contrast revealed hepatomegaly and 19.6 cm. Correlate with LFTs and risk factors for underlying hepatocellular disease. 1.3 cm right common iliac chain lymph node is enlarged. Left inguinal femoral chain lymph nodes are borderline enlarged. Findings probably reactive postinflammatory. 1.1 cm indeterminate right adrenal nodule. Moderate stool burden and generalized colonic diverticulosis. Tiny hiatal hernia. Consult was admitted for cardiology and patient has been seen by Dr. Yang for progressive dyspnea secondary to combination of COPD and element of heart failure with preserved systolic function. Plan to continue IV diuretics for 24 hours. 10/07: She has been afebrile, heart rate 86, blood pressure 101/46, pulse ox 90% on 4 L nasal cannula. WBC 11, hemoglobin 7.9, platelet count 319. Sodium 138, potassium 4.3, chloride 95, CO2 37, BUN 31 and creatinine 1.02. Blood sugars have been running 185 up to 405 at its 4 PM yesterday. Patient missed her morning dose of Levemir yesterday. Patient underwent gastric emptying study which was negative for gastroparesis. Patient is continued on IV Lasix at 40 mg every 12 hours. 10/08: Patient is afebrile, heart rate 75, blood pressure 146/57, pulse ox 92% on 3 L nasal cannula. Repeat blood work reveals sodium 138, potassium 4.9, chloride 96, CO2 37, BUN 38 creatinine 1.13. Blood sugars have been running b etween 211 and 307. Hemoglobin A1c from July is 5.2. Patient has increased dyspnea today along with a dry cough. She complains of shortness of breath with minimal activity, positive orthopnea. Patient was having issues with constipation and last evening and Senokot was added and she states she has had lots of bowel movements. Cardiology increase Lasix every 8 hours. Also Solu- Medrol added. 10/09: Pulse ox is 94% on 3 L nasal cannula. Patient has been afebrile, heart rate 86, blood pressure 134/63. Patient continues to have shortness of breath and nonproductive cough. She is wheezing. Positive shortness of breath with minimal activity. CTA of the chest has been ordered to rule out PE. Blood sugar at 2130 was 604 and also high yesterday afternoon, patient received additional N ovoLog on top of scale. Levemir 42 units subcu ordered this morning versus her normal dose of 30. Scheduled NovoLog will be increased to 6 units with meals. Solu-Medrol will be decreased to every 12 hours Repeat blood work reveals sodium 131, potassium 5.9, chloride 89, CO2 38, BUN 41 and creatinine 1.15. 10/10: CTA of the chest was suboptimal study without central pulmonary embolism. Cardiomegaly with mild interstitial and alveolar edema raises concern for heart failure exacerbation. No focal consolidation. She is currently on Lasix 40 mg IV 3 times daily. She continues to have shortness of breath, dyspnea with exertion and lower extremity edema. Lasix will be decreased tomorrow to 60 mg oral twice daily. Blood sugars continue to be in the 400s and 500s. She has received additional NovoLog plus scale. Levemir will be increased to 45 units twice daily and scheduled NovoLog increased to 12 units with meals and at at bedtime. Solu-Medrol was discontinued and patient to start prednisone tomorrow. Pulse ox is 95% on 3 L nasal cannula. She's been afebrile, heart rate 60, blo od pressure 131/54. Repeat blood work reveals WBC 15.8, hemoglobin 7.5, platelet count 388. Sodium was 129, potassium 6.1 and one dose of Kayexalate 30 mg ordered, oral prednisone scheduled was discontinued and Aldactone decreased to 12.5 mg daily. Chloride 84, CO2 39, BUN 57 and creatinine 1.41. 10/11 and patient examined bedside. Continue have shortness of breath on exertion. For some mild is continued at 40 IV every 8 hours per cardiology. On evaluation as patient's blood work today potassium is improved to 5.1 chloride is 85 bicarb 42 BUN 64 creatinine 1.34 glucose remains high at 444. Lantus increased to 50 twice a day today and NovoLog increased to 15 units with meals continue and follow with sliding scale. Solu-Medrol switched to prednisone 40 mg daily the patient labs tomorrow 10/12 patient examined at bedside. As shortness of breath on exertion and fatigue. Vitals checked in the room such as patient's systolic over 80s. Vitals as checked at 1 PM suggest blood pressure 125/71 with oxygen saturation of 96% on 8 L (55 years. 16 hold patient's blood pressure medication and Lasix today as patient's blood pressure is on the lower side. ABG to be obtained with a pH of 7.34 pCO2 of 81 pO2 59 and bicarb 43 appears to be secondary to metabolic alkalosis secondary to overdiuresis.. Patient to be placed on BiPAP for COPD exacerbation. Hold Lasix and metolazone. Continue Levemir at the current dose of 50 subcu twice a day with insulin aspart 15 subcu before meals and at bedtime. 10/13: Seen today in follow-up. Her hemoglobin is 7.4 and one dose of Ferrlecit IV will be ordered. Lasix will be resumed today at 60 mg oral. Patient utilizes BiPAP last night. She has gotten encouraged to use this during the day as well. 10/14: Patient noted to have a hacking barking cough. She states it started around 1:00 this morning and has been up all night coughing. She denies having any fever or chills. She denies any nausea or vomiting. A rapid Covid test was ordered which surprisingly came back positive. She has been afebrile, heart rate 91, blood pressure 148/63, pulse ox 94% on 2 L nasal cannula. WBC 9.1, hemoglobin 7.6, platelet count 297. D-dimer 0.83, LDH 669. C-reactive protein 1.6. Sodium 133, potassium 4.6, chloride 90, CO2 34, BUN 49 and creatinine 1.31. She is followed by pulmonary medicine. 10/15: Patient has not been able to sleep since 2 AM. She's experienced increased dyspnea. We have documented a 93% pulse ox on 2 L nasal cannula but this does not reflect patient's condition at the time. Patient had increasing dyspnea along with feeling tired and weak. Patient was transitioned to BiPAP and continues to have dyspnea. She has been utilizing BiPAP at nighttime and somewhat during the day for high CO2 has been improving Patient noted to have wheezing and will be placed back on Solu-Medrol 60 mg IV every 6 hours. We are also increasing Levemir and scheduled NovoLog to cover for hyperglycemia. She will be transferred to the cardiac stepdown unit and pulmonary medicine to be notified of patient's condition. Patient has been afebrile, heart rate 93, blood pressure 113/63, pulse ox 97% on 30% BiPAP. Repeat inflammatory markers ordered for tomorrow. 10/16 patient examined bedside continues to complain of fatigue, headache, body aches, sores in the mouth. Vitals obtained suggested temp of 97.6 pulse 87 respiratory rate 20 blood pressure 140/62 oxygen saturation 94% on 3 L. Headache not resolve with Tylenol. We will add morphine 2 mg IV every 6 hours. Nystatin added to help with oral thrush. PTOT consulted for generalized weakness and debility. No labs to evaluate. Repeat labs tomorrow REVIEW OF SYSTEMS Constitutional: No fever, no chills, no night sweats. No weight change. Reports sitting weakness and fatigue. No daytime sleepiness. Reports headache EENT: No headache. No blurred vision or double vision, no loss of vision. No loss of Hearing, no ringing in the ears, no dizziness. No nasal drainage or congestion. No epistaxis. No sore throat. Reports bumps in the mouth Lungs: Reports shortness of breath, reports cough, no sputum production. Reports wheezing. Reports dyspnea with exertion. Cardiovascular: No chest pain, no lower extremity edema. No palpitations. No paroxysmal nocturnal dyspnea. No orthopnea. No lightheadedness or dizziness. No syncopal episodes. Abdominal: Reports upper abdominal pain. No nausea, vomiting. no diarrhea. Reports constipation. No bloody reports tarry stools. Denies bright red bleeding. no loss of appetite. Genitourinary: No dysuria, increased frequency, urgency. No urinary retention. Musculoskeletal: No myalgias. No muscle weakness, no gait dysfunction, no frequent falls. No back pain. No neck pain. Reports body aches Integumentary: No wounds, no lesions. No rash or pruritus. No unusual bruising . No change in hair or nails. Neurologic: No aphasia. No facial droop. No change in mentation. No head injury. No headache. No paralysis. No paresthesia. Psychiatric: No depression. No anxiety. Endocrine: Reported reports abnormal blood sugars. No weight change. REVIEW OF SYSTEMS Constitutional: No fever, no chills, no night sweats. No weight change. Reports weakness and fatigue no lethargy. No daytime sleepiness. EENT: No headache. No blurred vision or double vision, no loss of vision. No loss of Hearing, no ringing in the ears, no dizziness. No nasal drainage or congestion. No epistaxis. No sore throat. Lungs: Reports shortness of breath, reports cough, no sputum production. Reports wheezing. Reports dyspnea with exertion. Cardiovascular: No chest pain, no lower extremity edema. No palpitations. No paroxysmal nocturnal dyspnea. No orthopnea. No lightheadedness or dizziness. No syncopal episodes. Abdominal: Reports upper abdominal pain. No nausea, vomiting. no diarrhea. Reports constipation. No bloody reports tarry stools. Denies bright red bleeding. no loss of appetite. Genitourinary: No dysuria, increased frequency, urgency. No urinary retention. Musculoskeletal: No myalgias. No muscle weakness, no gait dysfunction, no fr equent falls. No back pain. No neck pain. Integumentary: No wounds, no lesions. No rash or pruritus. No unusual bruising. No change in hair or nails. Neurologic: No aphasia. No facial droop. No change in mentation. No head injury. No headache. No paralysis. No paresthesia. Psychiatric: No depression. No anxiety. Endocrine: Reported reports abnormal blood sugars. No weight change. Objective - Vital Signs Vital signs: Vital Signs Temp 97.6 F 10/16/20 14:00 Pulse 87 10/16/20 14:00 Resp 20 10/16/20 14:00 BP 140/62 10/16/20 14:00 Pulse Ox 94 L 10/16/20 14:00 Intake & Output 10/15/20 10/16/20 10/16/20 18:59 06:59 18:59 Output Total 275 Balance -275 Weight 113 kg Output: Urine 275 Other: Voiding Method Toilet Toilet Toilet - Exam PHYSICAL EXAMINATION Gen: This is a 65-year-old female. She is resting and recliner and appears to be comfortable at rest. HEENT: Head is atraumatic, normocephalic. Pupils equal, round. Sclerae is anicteric. Conjunctiva pale. NECK: Supple. No JVD. No lymphadenopathy. No thyromegaly. LUNGS: Wheezing resolved, improved air entry bilaterally. No intercostal retractions. HEART: Regular rate and rhythm. Systolic murmur. ABDOMEN: Soft. Bowel sounds are present. No masses. No tenderness. EXTREMITIES: No pedal edema. No calf tenderness. Dorsalis pedis +2 bilaterally. NEUROLOGICAL: Patient is awake, alert and oriented x3. Cranial nerves 2 through 12 are grossly intact. - Labs CBC & Chem 7: 10/16/20 11:24 10/16/20 11:24 Labs: Abnormal Lab Results - Last 24 Hours (Table) 10/15/20 10/15/20 10/16/20 Range/Units 17:22 20:25 07:21 RBC (3.80-5.40) m/uL Hgb (11.4-16.0) gm/dL Hct (34.0-46.0) % MCH (25.0-35.0) pg MCHC (31.0-37.0) g/dL RDW (11.5-15.5) % Neutrophils # (1.3-7.7) k/uL Lymphocytes # (1.0-4.8) k/uL D-Dimer (<0.60) mg/L FEU Sodium (137-145) mmol/L Chloride (98-107) mmol/L BUN (7-17) mg/dL Creatinine (0.52-1.04) mg/dL Glucose (74-99) mg/dL POC Glucose (mg/dL) 321 H 263 H 500 H (75-99) mg/dL Alkaline Phosphatase (38-126) U/L Lactate Dehydrogenase (313-618) U/L C-Reactive Protein (<1.0) mg/dL 10/16/20 10/16/20 10/16/20 Range/Units 11:24 11:24 11:24 RBC 3.72 L (3.80-5.40) m/uL Hgb 7.9 L (11.4-16.0) gm/dL Hct 30.5 L (34.0-46.0) % MCH 21.3 L (25.0-35.0) pg MCHC 26.0 L (31.0-37.0) g/dL RDW 19.6 H (11.5-15.5) % Neutrophils # 8.1 H (1.3-7.7) k/uL Lymphocytes # 0.4 L (1.0-4.8) k/uL D-Dimer 0.86 H (<0.60) mg/L FEU Sodium 131 L (137-145) mmol/L Chloride 91 L (98-107) mmol/L BUN 43 H (7-17) mg/dL Creatinine 1.24 H (0.52-1.04) mg/dL Glucose 464 H (74-99) mg/dL POC Glucose (mg/dL) (75-99) mg/dL Alkaline Phosphatase 132 H (38-126) U/L Lactate Dehydrogenase 906 H (313-618) U/L C-Reactive Protein 2.8 H (<1.0) mg/dL 10/16/20 Range/Units 11:59 RBC (3.80-5.40) m/uL Hgb (11.4-16.0) gm/dL Hct (34.0-46.0) % MCH (25.0-35.0) pg MCHC (31.0-37.0) g/dL RDW (11.5-15.5) % Neutrophils # (1.3-7.7) k/uL Lymphocytes # (1.0-4.8) k/uL D-Dimer (<0.60) mg/L FEU Sodium (137-145) mmol/L Chloride (98-107) mmol/L BUN (7-17) mg/dL Creatinine (0.52-1.04) mg/dL Glucose (74-99) mg/dL POC Glucose (mg/dL) 484 H (75-99) mg/dL Alkaline Phosphatase (38-126) U/L Lactate Dehydrogenase (313-618) U/L C-Reactive Protein (<1.0) mg/dL Assessment and Plan Plan: 1. Chronic hypoxic respiratory failure with progressive dyspnea secondary to COPD and acute on chronic diastolic heart failure as well as Covid 19 pneumonia, POA. Continue Lasix at 60 mg oral daily, metolazone 2.5 mg on Tuesday on hold . Aldactone 12.5 mg daily, discontinue prednisone and r Solu- Medrol 60 mg IV reduced to every 8 hours. CTA of the chest ruled out pulmonary embolism. 2. Upper abdominal/lower chest pain with abdominal bloating and early satiety, ruled out gastroparesis. Most likely secondary to constipation and fecal burden. Continue Senokot 2 daily at 1800. 3. 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 Continue Protonix 40 mg oral twice daily. Status post Ferrlecit infusion 1. 4. Diabetes mellitus type 2 with diabetic neuropathy uncontrolled with hyperglycemia secondary to steroids. Continue Levemir increased to 60 units twice daily, scheduled NovoLog increased to 20 units before meals and at bedtime, continue NovoLog scale before meals and at bedtime. Continue Januvia 100 mg daily. Hemoglobin A1c in July was 5.2. 5. Diabetic neuropathy. Continue Lyrica 200 milligrams twice daily. 6. COPD without exacerbation. Continue DuoNeb treatment 4 times daily as needed, Pulmicort 1 mg twice daily, Singulair 10 mg at bedtime. 7. Hypertension. Continue Lasix, Lopressor 100 mg twice daily. 8. Hyperlipidemia. Continue Lipitor 40 mg daily. 9. Obstructive sleep apnea. Continue BiPAP at night. 10. Hypothyroidism. Continue levothyroxine 125 g daily. Restless leg syndrome. Continue Requip 2 mg twice daily. 11. Recurrent depression. Continue Prozac 20 mg daily. 12. Oral thrush. Diflucan 100 mg daily. Nystatin added for one week 13. Acute kidney injury. Metolazone and Aldactone held, continue Lasix at 60 mg daily 14. Hyperkalemia, resolved status post Kayexalate 1. 15. Metabolic alkalosis secondary to overdiuresis. Diamox discontinued, continue BiPAP. 16. GI prophylaxis. Protonix twice daily. 17. DVT prophylaxis. Heparin subcu every 12 hours. DISCHARGE PLAN Home
[2020-10-16 17:34] LABS: Glucose,Whole Blood 405 mg/dL (75-99)
[2020-10-16] MEDS: NYSTATIN 100,000 UNIT/ML SUSP 500,000 UNIT/5 ML CUP PO SCH ×2 (18:14→21:56)
[2020-10-16] MEDS: SENNOSIDES-DOCUSATE SODIUM 1 EACH TAB PO SCH (18:14)
[2020-10-16 20:31] LABS: Glucose,Whole Blood 551 mg/dL (75-99)
[2020-10-16 20:31] LABS: Glucose,Whole Blood 527 mg/dL (75-99)
[2020-10-16] MEDS: MONTELUKAST 10 MG TAB PO SCH (21:55)
[2020-10-17 00:04] LABS: Glucose,Whole Blood 443 mg/dL (75-99)
[2020-10-17 01:33] LABS: Ferritin 290.3 ng/mL (10.0-291.0)
[2020-10-17 03:11] LABS: Glucose,Whole Blood 299 mg/dL (75-99)
[2020-10-17] MEDS: MORPHINE SULFATE 2 MG/ML SYRINGE IVP PRN (05:38)
[2020-10-17] MEDS: LEVOTHYROXINE 125 MCG TAB PO SCH (05:38)
[2020-10-17] MEDS: INSULIN DETEMIR (LEVEMIR) 100 UNIT/ML SYR SQ SCH ×2 (07:13→20:56)
[2020-10-17] MEDS: PANTOPRAZOLE 40 MG TABLET PO SCH ×2 (07:15→18:04)
[2020-10-17 07:40] LABS: Glucose,Whole Blood 332 mg/dL (75-99)
[2020-10-17] MEDS: ALBUTEROL HFA INHALER INHALATION SCH ×4 (08:08→19:11)
[2020-10-17] MEDS: TIOTROPIUM 2.5 MCG INHALER INHALATION SCH (08:08)
[2020-10-17] MEDS: FLUTICASONE 220 MCG INHALER INHALATION SCH (08:08)
[2020-10-17] MEDS: INSULIN ASPART (NovoLOG) 100 UNIT/ML VIAL SQ SCH ×8 (08:32→20:57)
[2020-10-17] MEDS: ZINC SULFATE 220 MG CAP PO SCH (08:33)
[2020-10-17] MEDS: PREGABALIN 100 MG CAP PO SCH ×2 (08:33→20:56)
[2020-10-17] MEDS: ASCORBIC ACID 500 MG TAB PO SCH (08:34)
[2020-10-17] MEDS: FUROSEMIDE 20 MG TAB PO SCH (08:34)
[2020-10-17] MEDS: CHOLECALCIFEROL 25 MCG (1000 IU) TABLET PO SCH (08:34)
[2020-10-17] MEDS: guaiFENesin 600 MG TABLET.ER PO SCH ×2 (08:34→20:58)
[2020-10-17] MEDS: NYSTATIN 100,000 UNIT/ML SUSP 500,000 UNIT/5 ML CUP PO SCH ×4 (08:35→21:10)
[2020-10-17] MEDS: methylPREDNISolone SOD SUCCI 125 MG/2 ML VIAL IV SCH (08:35)
[2020-10-17] MEDS: LINAGLIPTIN 5 MG TABLET PO SCH (08:36)
[2020-10-17] MEDS: FLUCONAZOLE 100 MG TAB PO SCH (08:36)
[2020-10-17] MEDS: HEPARIN SODIUM,PORCINE/PF 5,000 UNIT/0.5 ML SYRINGE SQ SCH ×2 (08:37→20:58)
[2020-10-17] MEDS: FLUoxetine HCL 20 MG CAP PO SCH (09:21)
--- NOTE | 2020-10-17 11:44 | P.PN ---
Subjective Progress Note Date: 10/17/20 Principal diagnosis: Shortness of breath. 65-year-old female patient was hospitalized for shortness of breath. The patient was originally admitted to the hospital on 09/26/2020 on seeing this patient in consultation for dyspnea today. She is known to have multiple medical problems and comorbidities. 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 The patient is morbidly obese and she has COPD along with chronic hypoxic respiratory failure and she uses a nocturnal BiPAP device. She has obstructive sleep apnea. She has hypothyroidism and chronic edema lower extremities. During this current admission, the patient presented with some shortness of breath and a CT angiogram of the chest was done on 10/09/2020 and the CTA showed suboptimal study regarding the possibility of pulmonary embolism, nevertheless, there was cut or megaly and mild interstitial and alveolar edema concerning for underlying congestion heart failure. The chest x-rays also showing cardiomegaly with pulmonary vascular congestion. Patient is currently on Lasix 60 mg by mouth twice a day. The patient is also on prednisone 40 mg by mouth daily as part of a burst taper. I see that she was also taking Diamox and currently the Diamox is on hold. She'll DuoNeb neb achievements [id number]. Outpatient medications of been ordered resume. Her creatinine and creatinine is at 1.5 and the patient has a component of an acute kidney injury knowing that her baseline renal function was stable. She was also on Zaroxolyn which was also placed on hold. Progress note dated 10/15/2020. This is a 65-year-old female, well-known to our service. The patient was admitted back on October 06. She was seen by Dr. Gomes on October 12. More recently, the patient's saturations became low, she was more short of breath. The patient was transferred over or will be transferred over to [facility]. Currently, she is on BiPAP with IPAP of 12, EPAP of 6. FiO2 is 30%. As I mention, the patient was admitted on October 06. She apparently also tested positive for COVID on October 14. Currently she is on the pediatrics floor. Chest x-ray showed diffuse interstitial infiltrates, consistent with either interstitial edema, or pneumonitis secondary to coronavirus. Most recent labs were from October 14, with a white count 9.1, hemoglobin 7.6, hematocrit 28.2, and platelet count 297,000. D-dimer was 0.83. Sodium 133, potassium 4.6, chlorides 90, CO2 34, anion gap 9, BUN 49, creatinine 1.31. LDH 669, C-reactive protein 1.6. Progress note dated 10/16/2020. 65-year-old female, well-known to our service. The patient was seen by my partner initially, but at that time was doing relatively well, and we did not continue to see the patient. The patient was admitted back on October 06. She was seen by Dr. Gomes, on October 12. We were asked to re-see her, because she was more short of breath. She was placed on BiPAP at 12/6 and 30%. Yesterday she was quite lethargic and sleepy. Currently, she is on 3 L. She sitting at the bedside. She feels much better. She is much more awake and alert. She is a CO2 retainer, and if she gets excess oxygen, or any sedatives, hypnotics, narcotics, or tranquilizers, she will have worsening hypercapnic respiratory failure and will become very somnolent/lethargic. Currently labs include a white count 9.2, hemoglobin 7.9, hematocrit 30.5, and platelet count a 66,000. D-dimer is 0.86. Sodium 131, potassium 5.1, chlorides 91, CO2 28, anion gap is 12, BUN 43, and creatinine 1.24. LDH 906 and C-reactive protein is 2.8. She did test positive for coronavirus. Progress note dated 10/17/2020. 65-year-old female, well-known to our service. The patient was initially admitted back on October 06. She was seen by my partner on October 12. We saw her again on October 15 and . She was initially on the pediatric floor, and then moved to the [address] [place] [address]. Currently, she is not on any IV fluids. He is receiving nasal O2 at 3 L. She did not use of BiPAP last night. She is currently being evaluated by the hospital service for chest pain. There are no new labs to report. No new x-rays. From the pulmonary standpoint, she appears to be relatively stable. Objective - Vital Signs Vital signs: Vital Signs Temp 97.8 F 10/17/20 10:00 Pulse 111 H 10/17/20 10:00 Resp 20 10/17/20 10:00 BP 119/60 10/17/20 10:00 Pulse Ox 94 L 10/17/20 10:00 Intake & Output 10/16/20 10/17/20 10/17/20 18:59 06:59 18:59 Intake Total 10 240 Balance 10 240 Weight 112.2 kg Intake: IV 10 Invasive Line 7 10 Oral 240 Other: Voiding Method Toilet Toilet Toilet - Exam No acute distress, much more awake and alert, currently on nasal O2 at 3 L. Sitting at the bedside, without any respiratory distress or difficulty. Saturations are 94% HEENT examination is grossly unremarkable. Neck supple. Full range of motion. No adenopathy thyromegaly or neck vein distention. Cardiovascular examination reveals regular rhythm rate. S1-S2 normal. No S3 or S4. No discernible murmur noted. Heart sounds are distant. Heart rate 98 bpm. Lungs reveal bilateral rhonchi. No wheezes or crackles. Breath sounds equal bilaterally. Breath sounds are diminished. Abdomen soft bowel sounds are heard. No masses or tenderness. Extremities are intact. No cyanosis clubbing or edema. Skin is without rash or lesion. Neurologic examination is brief but nonfocal. - Labs CBC & Chem 7: 10/16/20 11:24 10/16/20 11:24 Labs: Abnormal Lab Results - Last 24 Hours (Table) 10/16/20 10/16/20 10/16/20 Range/Units 11:24 11:24 11:24 RBC 3.72 L (3.80-5.40) m/uL Hgb 7.9 L (11.4-16.0) gm/dL Hct 30.5 L (34.0-46.0) % MCH 21.3 L (25.0-35.0) pg MCHC 26.0 L (31.0-37.0) g/dL RDW 19.6 H (11.5-15.5) % Neutrophils # 8.1 H (1.3-7.7) k/uL Lymphocytes # 0.4 L (1.0-4.8) k/uL D-Dimer 0.86 H (<0.60) mg/L FEU Sodium 131 L (137-145) mmol/L Chloride 91 L (98-107) mmol/L BUN 43 H (7-17) mg/dL Creatinine 1.24 H (0.52-1.04) mg/dL Glucose 464 H (74-99) mg/dL POC Glucose (mg/dL) (75-99) mg/dL Alkaline Phosphatase 132 H (38-126) U/L Lactate Dehydrogenase 906 H (313-618) U/L C-Reactive Protein 2.8 H (<1.0) mg/dL Procalcitonin (0.02-0.09) ng/mL 10/16/20 10/16/20 10/16/20 Range/Units 11:24 11:59 17:32 RBC (3.80-5.40) m/uL Hgb (11.4-16.0) gm/dL Hct (34.0-46.0) % MCH (25.0-35.0) pg MCHC (31.0-37.0) g/dL RDW (11.5-15.5) % Neutrophils # (1.3-7.7) k/uL Lymphocytes # (1.0-4.8) k/uL D-Dimer (<0.60) mg/L FEU Sodium (137-145) mmol/L Chloride (98-107) mmol/L BUN (7-17) mg/dL Creatinine (0.52-1.04) mg/dL Glucose (74-99) mg/dL POC Glucose (mg/dL) 484 H 405 H (75-99) mg/dL Alkaline Phosphatase (38-126) U/L Lactate Dehydrogenase (313-618) U/L C-Reactive Protein (<1.0) mg/dL Procalcitonin 0.11 H (0.02-0.09) ng/mL 10/16/20 10/16/20 10/16/20 Range/Units 20:28 20:29 23:54 RBC (3.80-5.40) m/uL Hgb (11.4-16.0) gm/dL Hct (34.0-46.0) % MCH (25.0-35.0) pg MCHC (31.0-37.0) g/dL RDW (11.5-15.5) % Neutrophils # (1.3-7.7) k/uL Lymphocytes # (1.0-4.8) k/uL D-Dimer (<0.60) mg/L FEU Sodium (137-145) mmol/L Chloride (98-107) mmol/L BUN (7-17) mg/dL Creatinine (0.52-1.04) mg/dL Glucose (74-99) mg/dL POC Glucose (mg/dL) 527 H 551 H 443 H (75-99) mg/dL Alkaline Phosphatase (38-126) U/L Lactate Dehydrogenase (313-618) U/L C-Reactive Protein (<1.0) mg/dL Procalcitonin (0.02-0.09) ng/mL 10/17/20 10/17/20 Range/Units 03:10 07:35 RBC (3.80-5.40) m/uL Hgb (11.4-16.0) gm/dL Hct (34.0-46.0) % MCH (25.0-35.0) pg MCHC (31.0-37.0) g/dL RDW (11.5-15.5) % Neutrophils # (1.3-7.7) k/uL Lymphocytes # (1.0-4.8) k/uL D-Dimer (<0.60) mg/L FEU Sodium (137-145) mmol/L Chloride (98-107) mmol/L BUN (7-17) mg/dL Creatinine (0.52-1.04) mg/dL Glucose (74-99) mg/dL POC Glucose (mg/dL) 299 H 332 H (75-99) mg/dL Alkaline Phosphatase (38-126) U/L Lactate Dehydrogenase (313-618) U/L C-Reactive Protein (<1.0) mg/dL Procalcitonin (0.02-0.09) ng/mL Assessment and Plan Assessment: Acute hypoxemic respiratory failure, likely multifactorial, in part related to COPD exacerbation, diastolic CHF, and possible COVID 19 pneumonitis. History of GI bleed, secondary to duodenal AV malformation. History of chronic diastolic CHF. History of chronic obstructive pulmonary disease, with chronic hypoxemic respiratory failure, on home O2 at 4 L. Morbid obesity. History of diabetes mellitus. History of pneumonia. Diabetic neuropathy. Valvular heart disease/aortic stenosis. Obstructive sleep apnea syndrome. History of hypothyroidism. Previous history of heavy tobacco use. History of depression. Chronic lower extremity edema. Plan: Plan dated 10/15/2020. The patient will be moved from pediatrics over to [address] [place] [address]. Patient's currently on BiPAP with settings of IPAP 12, EPAP 6, and 30%. Seemed relatively comfortable. Currently, she is on vitamin C, vitamin D3, and zinc. In addition, the patient is getting Solu-Medrol 60 mg every 6 hours. The subcu heparin should be discontinued in favor of Lovenox, 40 mg subcu daily. Additional recommendations and suggestions are forthcoming. We will continue to follow. Prognosis is guarded. The patient has been feeling poorly for some time, even before her admission on October 06. She is likely outside the window for REM. Plan dated 10/16/2020. The patient's doing much better. She is on 3 L nasal cannula. She sitting at the bedside. Yesterday, she was quite lethargic while on BiPAP. The patient is a CO2 retainer. One has to be very careful with any sedatives or hypnotics or narcotics on this patient. Saturations are this patient are perfectly acceptable 88-92%. We will continue to follow. Prognosis is guarded. She should be on Lovenox 40 mg subcu daily would not subcu heparin. We will continue to follow make recommendations. The patient was outside the window for REM. Plan dated 10/17/2020. The patient's doing better from the pulmonary standpoint. She did not use of BiPAP last night. She did test positive for coronavirus. She's currently being evaluated by the hospitalist service for chest pain. No new labs to report. No new chest x-ray to report. Medications have been reviewed. She is on appropriate medications including albuterol inhaler, Symbicort inhaler, vitamins C, D3, and zinc, as well as subcu heparin, and steroids. I Time with Patient: Less than 30
[2020-10-17 11:52] LABS: Glucose,Whole Blood 452 mg/dL (75-99)
--- NOTE | 2020-10-17 13:36 | P.PN ---
Subjective Progress Note Date: 10/17/20 This is a 65-year-old female patient of Dr. Deras with past medical history significant for heart failure, COPD, chronic hypoxic respiratory failure on home O2 at 2 L nasal cannula and obstructive sleep apnea on BiPAP support at bedtime, diabetes mellitus type 2 with diabetic neuropathy, chronic diastolic heart failure, valvular heart disease, hypertension, hypothyroidism, GI bleed with anemia. Patient has had multiple admissions and multiple endoscopies for GIB and anemia. 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 The bleeding seems to be stable since that time. They, patient presented to the hospital due to chest pain in the midsternal area across her chest seems to be worse after she eats it was hurting after she had breakfast this morning. She complains of shortness of breath with exertion that is worse than the last time she was admitted. She states her stools have been normal. She does complain of abdominal distention and fullness after eating. Patient presented to the [facility] emergency center for evaluation. Patient was found to be afebrile, heart rate 71, blood pressure 140/61, pulse ox 100% on oxygen. WBC 14.8, hemoglobin 8.2 which is stable for this patient. Platelet count is 310. Sodium 138, potassium 4.2, chloride 97, CO2 35, BUN 39 and creatinine 1.34 which is also patient's baseline. Blood sugar 207. D-dimer 0.89. Alkaline phosphatase 160. Troponin negative. Pro- BNP 2570. Lactic acid 1.0. Coronavirus PCR not detected. EKG sinus rhythm with nonspecific ST-T wave changes. Chest x-ray reveals vascular and int erstitial markings prominent in the mid to lower lungs bilaterally similar to previous. Consider heart failure versus interstitial infiltrate. CAT scan of the abdomen and pelvis without contrast revealed hepatomegaly and 19.6 cm. Correlate with LFTs and risk factors for underlying hepatocellular disease. 1.3 cm right common iliac chain lymph node is enlarged. Left inguinal femoral chain lymph nodes are borderline enlarged. Findings probably reactive postinflammatory. 1.1 cm indeterminate right adrenal nodule. Moderate stool burden and generalized colonic diverticulosis. Tiny hiatal hernia. Consult was admitted for cardiology and patient has been seen by Dr. Yang for progressive dyspnea secondary to combination of COPD and element of heart failure with preserved systolic function. Plan to continue IV diuretics for 24 hours. 10/07: She has been afebrile, heart rate 86, blood pressure 101/46, pulse ox 90% on 4 L nasal cannula. WBC 11, hemoglobin 7.9, platelet count 319. Sodium 138, potassium 4.3, chloride 95, CO2 37, BUN 31 and creatinine 1.02. Blood sugars have been running 185 up to 405 at its 4 PM yesterday. Patient missed her morning dose of Levemir yesterday. Patient underwent gastric emptying study which was negative for gastroparesis. Patient is continued on IV Lasix at 40 mg every 12 hours. 10/08: Patient is afebrile, heart rate 75, blood pressure 146/57, pulse ox 92% on 3 L nasal cannula. Repeat blood work reveals sodium 138, potassium 4.9, chloride 96, CO2 37, BUN 38 creatinine 1.13. Blood sugars have been running b etween 211 and 307. Hemoglobin A1c from July is 5.2. Patient has increased dyspnea today along with a dry cough. She complains of shortness of breath with minimal activity, positive orthopnea. Patient was having issues with constipation and last evening and Senokot was added and she states she has had lots of bowel movements. Cardiology increase Lasix every 8 hours. Also Solu- Medrol added. 10/09: Pulse ox is 94% on 3 L nasal cannula. Patient has been afebrile, heart rate 86, blood pressure 134/63. Patient continues to have shortness of breath and nonproductive cough. She is wheezing. Positive shortness of breath with minimal activity. CTA of the chest has been ordered to rule out PE. Blood sugar at 2130 was 604 and also high yesterday afternoon, patient received additional N ovoLog on top of scale. Levemir 42 units subcu ordered this morning versus her normal dose of 30. Scheduled NovoLog will be increased to 6 units with meals. Solu-Medrol will be decreased to every 12 hours Repeat blood work reveals sodium 131, potassium 5.9, chloride 89, CO2 38, BUN 41 and creatinine 1.15. 10/10: CTA of the chest was suboptimal study without central pulmonary embolism. Cardiomegaly with mild interstitial and alveolar edema raises concern for heart failure exacerbation. No focal consolidation. She is currently on Lasix 40 mg IV 3 times daily. She continues to have shortness of breath, dyspnea with exertion and lower extremity edema. Lasix will be decreased tomorrow to 60 mg oral twice daily. Blood sugars continue to be in the 400s and 500s. She has received additional NovoLog plus scale. Levemir will be increased to 45 units twice daily and scheduled NovoLog increased to 12 units with meals and at at bedtime. Solu-Medrol was discontinued and patient to start prednisone tomorrow. Pulse ox is 95% on 3 L nasal cannula. She's been afebrile, heart rate 60, blo od pressure 131/54. Repeat blood work reveals WBC 15.8, hemoglobin 7.5, platelet count 388. Sodium was 129, potassium 6.1 and one dose of Kayexalate 30 mg ordered, oral prednisone scheduled was discontinued and Aldactone decreased to 12.5 mg daily. Chloride 84, CO2 39, BUN 57 and creatinine 1.41. 10/11 and patient examined bedside. Continue have shortness of breath on exertion. For some mild is continued at 40 IV every 8 hours per cardiology. On evaluation as patient's blood work today potassium is improved to 5.1 chloride is 85 bicarb 42 BUN 64 creatinine 1.34 glucose remains high at 444. Lantus increased to 50 twice a day today and NovoLog increased to 15 units with meals continue and follow with sliding scale. Solu-Medrol switched to prednisone 40 mg daily the patient labs tomorrow 10/12 patient examined at bedside. As shortness of breath on exertion and fatigue. Vitals checked in the room such as patient's systolic over 80s. Vitals as checked at 1 PM suggest blood pressure 125/71 with oxygen saturation of 96% on 8 L (55 years. 16 hold patient's blood pressure medication and Lasix today as patient's blood pressure is on the lower side. ABG to be obtained with a pH of 7.34 pCO2 of 81 pO2 59 and bicarb 43 appears to be secondary to metabolic alkalosis secondary to overdiuresis.. Patient to be placed on BiPAP for COPD exacerbation. Hold Lasix and metolazone. Continue Levemir at the current dose of 50 subcu twice a day with insulin aspart 15 subcu before meals and at bedtime. 10/13: Seen today in follow-up. Her hemoglobin is 7.4 and one dose of Ferrlecit IV will be ordered. Lasix will be resumed today at 60 mg oral. Patient utilizes BiPAP last night. She has gotten encouraged to use this during the day as well. 10/14: Patient noted to have a hacking barking cough. She states it started around 1:00 this morning and has been up all night coughing. She denies having any fever or chills. She denies any nausea or vomiting. A rapid Covid test was ordered which surprisingly came back positive. She has been afebrile, heart rate 91, blood pressure 148/63, pulse ox 94% on 2 L nasal cannula. WBC 9.1, hemoglobin 7.6, platelet count 297. D-dimer 0.83, LDH 669. C-reactive protein 1.6. Sodium 133, potassium 4.6, chloride 90, CO2 34, BUN 49 and creatinine 1.31. She is followed by pulmonary medicine. 10/15: Patient has not been able to sleep since 2 AM. She's experienced increased dyspnea. We have documented a 93% pulse ox on 2 L nasal cannula but this does not reflect patient's condition at the time. Patient had increasing dyspnea along with feeling tired and weak. Patient was transitioned to BiPAP and continues to have dyspnea. She has been utilizing BiPAP at nighttime and somewhat during the day for high CO2 has been improving Patient noted to have wheezing and will be placed back on Solu-Medrol 60 mg IV every 6 hours. We are also increasing Levemir and scheduled NovoLog to cover for hyperglycemia. She will be transferred to the cardiac stepdown unit and pulmonary medicine to be notified of patient's condition. Patient has been afebrile, heart rate 93, blood pressure 113/63, pulse ox 97% on 30% BiPAP. Repeat inflammatory markers ordered for tomorrow. 10/16 patient examined bedside continues to complain of fatigue, headache, body aches, sores in the mouth. Vitals obtained suggested temp of 97.6 pulse 87 respiratory rate 20 blood pressure 140/62 oxygen saturation 94% on 3 L. Headache not resolve with Tylenol. We will add morphine 2 mg IV every 6 hours. Nystatin added to help with oral thrush. PTOT consulted for generalized weakness and debility. No labs to evaluate. Repeat labs tomorrow 10/17 patient examined bedside complains of substernal chest pain on coughing which is improved with breathing treatment. EKG obtained showed normal sinus rhythm with supraventricular complexes. No change compared to previous EKG. Troponin 2 ordered. Tessalon Perles added for cough. Patient is on Mucinex and guaifenesin codeine syrup for cough. Patient does sound congested and will switch patient's inhaler from Flovent to Symbicort. Vitals reviewed patient is afebrile pulse of 111 respiratory rate 20 blood pressure 119/60, oxygen saturation 94% on 3 L. No morning labs to review. Patient's blood sugar continues to be elevated. We will increase patient's Lantus to 70 units twice a day with mealtime insulin. Neck supple Medrol reduced to 40 every 8. No plan for him to have severe or Tocilizumab per pulmonary. Repeat labs ordered chest x-ray ordered. Patient likely discharge on Tuesday for possible oxygen needs and would need to be discharged home on oxygen. REVIEW OF SYSTEMS Constitutional: No fever, no chills, no night sweats. No weight change. Reports sitting weakness and fatigue. No daytime sleepiness. Reports headache EENT: No headache. No blurred vision or double vision, no loss of vision. No loss of Hearing, no ringing in the ears, no dizziness. No nasal drainage or congestion. No epistaxis. No sore throat. Reports bumps in the mouth Lungs: Reports shortness of breath, reports cough, no sputum production. Reports wheezing. Reports dyspnea with exertion. Cardiovascular: No chest pain, no lower extremity edema. No palpitations. No paroxysmal nocturnal dyspnea. No orthopnea. No lightheadedness or dizziness. No syncopal episodes. Abdominal: Reports upper abdominal pain. No nausea, vomiting. no diarrhea. Reports constipation. No bloody reports tarry stools. Denies bright red bleeding. no loss of appetite. Genitourinary: No dysuria, increased frequency, urgency. No urinary retention. Musculoskeletal: No myalgias. No muscle weakness, no gait dysfunction, no frequent falls. No back pain. No neck pain. Reports body aches Integumentary: No wounds, no lesions. No rash or pruritus. No unusual bruising. No change in hair or nails. Neurologic: No aphasia. No facial droop. No change in mentation. No head injury. No headache. No paralysis. No paresthesia. Psychiatric: No depression. No anxiety. Endocrine: Reported reports abnormal blood sugars. No weight change. REVIEW OF SYSTEMS Constitutional: No fever, no chills, no night sweats. No weight change. Reports weakness and fatigue no lethargy. No daytime sleepiness. EENT: No headache. No blurred vision or double vision, no loss of vision. No loss of Hearing, no ringing in the ears, no dizziness. No nasal drainage or congestion. No epistaxis. No sore throat. Lungs: Reports shortness of breath, reports cough, no sputum production. Reports wheezing. Reports dyspnea with exertion. Cardiovascular: No chest pain, no lower extremity edema. No palpitations. No paroxysmal nocturnal dyspnea. No orthopnea. No lightheadedness or dizziness. No syncopal episodes. Abdominal: Reports upper abdominal pain. No nausea, vomiting. no diarrhea. Reports constipation. No bloody reports tarry stools. Denies bright red blee ding. no loss of appetite. Genitourinary: No dysuria, increased frequency, urgency. No urinary retention. Musculoskeletal: No myalgias. No muscle weakness, no gait dysfunction, no frequent falls. No back pain. No neck pain. Integumentary: No wounds, no lesions. No rash or pruritus. No unusual bruising. No change in hair or nails. Neurologic: No aphasia. No facial droop. No change in mentation. No head injury. No headache. No paralysis. No paresthesia. Psychiatric: No depression. No anxiety. Endocrine: Reported reports abnormal blood sugars. No weight change. Objective - Vital Signs Vital signs: Vital Signs Temp 97.8 F 10/17/20 10:00 Pulse 111 H 10/17/20 10:00 Resp 20 10/17/20 10:00 BP 119/60 10/17/20 10:00 Pulse Ox 94 L 10/17/20 10:00 Intake & Output 10/16/20 10/17/20 10/17/20 18:59 06:59 18:59 Intake Total 10 240 Balance 10 240 Weight 112.2 kg Intake: IV 10 Invasive Line 7 10 Oral 240 Other: Voiding Method Toilet Toilet Toilet - Exam PHYSICAL EXAMINATION Gen: This is a 65-year-old female. She is resting and recliner and appears to be comfortable at rest. HEENT: Head is atraumatic, normocephalic. Pupils equal, round. Sclerae is anicteric. Conjunctiva pale. NECK: Supple. No JVD. No lymphadenopathy. No thyromegaly. LUNGS: Wheezing resolved, improved air entry bilaterally. Crackles noted bilaterally No intercostal retractions. HEART: Regular rate and rhythm. Systolic murmur. ABDOMEN: Soft. Bowel sounds are present. No masses. No tenderness. EXTREMITIES: No pedal edema. No calf tenderness. Dorsalis pedis +2 bilaterally. NEUROLOGICAL: Patient is awake, alert and oriented x3. Cranial nerves 2 through 12 are grossly intact. - Labs CBC & Chem 7: 10/16/20 11:24 10/16/20 11:24 Labs: Abnormal Lab Results - Last 24 Hours (Table) 10/16/20 10/16/20 10/16/20 Range/Units 11:24 17:32 20:28 POC Glucose (mg/dL) 405 H 527 H (75-99) mg/dL Procalcitonin 0.11 H (0.02-0.09) ng/mL 10/16/20 10/16/20 10/17/20 Range/Units 20:29 23:54 03:10 POC Glucose (mg/dL) 551 H 443 H 299 H (75-99) mg/dL Procalcitonin (0.02-0.09) ng/mL 10/17/20 10/17/20 Range/Units 07:35 11:50 POC Glucose (mg/dL) 332 H 452 H (75-99) mg/dL Procalcitonin (0.02-0.09) ng/mL Assessment and Plan Plan: 1. Chronic hypoxic respiratory failure with progressive dyspnea secondary to COPD and acute on chronic diastolic heart failure as well as Covid 19 pneumonia, POA. Continue Lasix at 60 mg oral daily, metolazone 2.5 mg on Tuesday on hold . Aldactone 12.5 mg daily resumed on 10/17, discontinue prednisone and r Solu-Medrol 40 mg IV every 8 hours. CTA of the chest ruled out pulmonary embolism. Flovent switch to Symbicort 2. Upper abdominal/lower chest pain with abdominal bloating and early satiety, ruled out gastroparesis. Most likely secondary to constipation and fecal burden. Continue Senokot 2 daily at 1800. 3. 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 Continue Protonix 40 mg oral twice daily. Status post Ferrlecit infusion 1. 4. Diabetes mellitus type 2 with diabetic neuropathy uncontrolled with hyperglycemia secondary to steroids. Continue Levemir increased to 70 units twice daily, scheduled NovoLog increased to 25 units before meals and at bedtime, continue NovoLog scale before meals and at bedtime. Continue Januvia 100 mg daily. Hemoglobin A1c in July was 5.2. 5. Diabetic neuropathy. Continue Lyrica 200 milligrams twice daily. 6. COPD without exacerbation. Continue DuoNeb treatment 4 times daily as needed, Pulmicort 1 mg twice daily, Singulair 10 mg at bedtime. 7. Hypertension. Continue Lasix, Lopressor 100 mg twice daily. 8. Hyperlipidemia. Continue Lipitor 40 mg daily. 9. Obstructive sleep apnea. Continue BiPAP at night. 10. Hypothyroidism. Continue levothyroxine 125 g daily. Restless leg syndrome. Continue Requip 2 mg twice daily. 11. Recurrent depression. Continue Prozac 20 mg daily. 12. Oral thrush. Diflucan 100 mg daily. Nystatin added for one week 13. Acute kidney injury. Metolazone held, continue Lasix at 60 mg daily Aldactone resumed at 12.5 daily 14. Hyperkalemia, resolved status post Kayexalate 1. 15. Metabolic alkalosis secondary to overdiuresis. Diamox discontinued, continue BiPAP. 16. GI prophylaxis. Protonix twice daily. 17. DVT prophylaxis. Heparin subcu every 12 hours. DISCHARGE PLAN Home
[2020-10-17 14:25] LABS: Anisocytosis Slight; Basophils % (A) 0 %; Eosinophils % (A) 0 %; HCT 29.3 % (34.0-46.0); HGB 7.9 gm/dL (11.4-16.0); Hypochromasia Marked; Lymphocytes # (A) 0.4 k/uL (1.0-4.8); Lymphocytes % (A) 2 %; MCH 22.1 pg (25.0-35.0); MCHC 27.1 g/dL (31.0-37.0); MCV 81.6 fL (80.0-100.0); Mean Platelet Volume 8.8; Microcytosis Slight; Monocytes # (A) 0.7 k/uL (0-1.0); Monocytes % (A) 4 %; Neutrophils # (A) 17.8 k/uL (1.3-7.7); Neutrophils % (A) 93 %; Platelet Count 277 k/uL (150-450); Poikilocytosis Slight; RBC 3.59 m/uL (3.80-5.40); RDW 19.8 % (11.5-15.5)
[2020-10-17 14:30] LABS: ALT 23 U/L (4-34); AST 33 U/L (14-36); African American GFR (CKD) 51 (>60 ml/min/1.73 sqM); Albumin 3.9 g/dL (3.5-5.0); Albumin/Globulin Ratio 1.3; Alkaline Phosphatase 120 U/L (38-126); Anion Gap 8 mmol/L; Blood Urea Nitrogen 48 mg/dL (7-17); Calcium 8.7 mg/dL (8.4-10.2); Carbon Dioxide 30 mmol/L (22-30); Chloride 93 mmol/L (98-107); Globulin 3.1 g/dL; Glucose 348 mg/dL (74-99); Non-African American GFR(CKD) 44 (>60 ml/min/1.73 sqM); Potassium 5.2 mmol/L (3.5-5.1); Sodium 131 mmol/L (137-145); Total Bilirubin 0.3 mg/dL (0.2-1.3)
[2020-10-17 15:23] LABS: Band Neutrophils % 4 %; Lymphocytes # (M) 0.19 k/uL (1.0-4.8); Metamyelocytes # (M) 0.19 k/uL (0); Metamyelocytes % 1 %; Monocytes # (M) 1.14 k/uL (0-1.0); Neutrophils % (M) 89 %; Nucleated Red Blood Cells 0 /100 WBC (0-0); Polychromasia Present; Total Cells Counted 200
[2020-10-17] MEDS: SYMBICORT 160-4.5 MCG INHALER INHALATION SCH ×2 (15:47→19:11)
[2020-10-17 16:38] LABS: Glucose,Whole Blood 225 mg/dL (75-99)
[2020-10-17] MEDS: BENZONATATE 100 MG CAP PO SCH ×2 (16:49→20:58)
[2020-10-17] MEDS: methylPREDNISolone SOD SUCCI 40 MG/ML 1 ML VIAL IV SCH ×2 (16:49→23:17)
[2020-10-17] MEDS: SENNOSIDES-DOCUSATE SODIUM 1 EACH TAB PO SCH (18:04)
[2020-10-17 20:19] LABS: Glucose,Whole Blood 389 mg/dL (75-99)
[2020-10-17] MEDS: MONTELUKAST 10 MG TAB PO SCH (20:56)
[2020-10-17] MEDS: Acetaminophen-Codeine 300-30mg TAB PO PRN (21:10)
[2020-10-18] MEDS: LEVOTHYROXINE 125 MCG TAB PO SCH (05:59)
[2020-10-18 07:26] LABS: ALT 23 U/L (4-34); AST 36 U/L (14-36); African American GFR (CKD) 59 (>60 ml/min/1.73 sqM); Albumin/Globulin Ratio 1.2; Alkaline Phosphatase 129 U/L (38-126); Anion Gap 6 mmol/L; Blood Urea Nitrogen 45 mg/dL (7-17); Calcium 8.7 mg/dL (8.4-10.2); Carbon Dioxide 33 mmol/L (22-30); Chloride 95 mmol/L (98-107); Globulin 3.3 g/dL; Glucose 256 mg/dL (74-99); Non-African American GFR(CKD) 51 (>60 ml/min/1.73 sqM); Potassium 4.9 mmol/L (3.5-5.1); Sodium 134 mmol/L (137-145); Total Bilirubin 0.3 mg/dL (0.2-1.3); Total Protein 7.3 g/dL (6.3-8.2)
--- NOTE | 2020-10-18 07:30 | XR ---
EXAMINATION TYPE: XR chest 1V DATE OF EXAM: 10/18/2020 COMPARISON: Chest x-ray 10/14/2020 HISTORY: Covid pneumonia, difficulty breathing TECHNIQUE: Single frontal view of the chest is obtained. FINDINGS: There is been progression of bilateral airspace disease compared to prior exam. No evident pneumothorax or pleural effusion. Cardiac mediastinal silhouette shows an enlarged heart. Aorta is d ense. There are overlying leads. IMPRESSION: Correlate for pneumonia versus edema, there is interval progression in airspace disease bilaterally
[2020-10-18 07:33] LABS: Glucose,Whole Blood 259 mg/dL (75-99)
[2020-10-18] MEDS: PANTOPRAZOLE 40 MG TABLET PO SCH ×2 (08:03→17:18)
[2020-10-18] MEDS: INSULIN DETEMIR (LEVEMIR) 100 UNIT/ML SYR SQ SCH ×2 (08:03→20:57)
[2020-10-18] MEDS: methylPREDNISolone SOD SUCCI 40 MG/ML 1 ML VIAL IV SCH ×3 (08:07→23:37)
[2020-10-18] MEDS: SYMBICORT 160-4.5 MCG INHALER INHALATION SCH ×2 (08:10→19:50)
[2020-10-18] MEDS: ALBUTEROL HFA INHALER INHALATION SCH ×4 (08:10→19:49)
[2020-10-18] MEDS: TIOTROPIUM 2.5 MCG INHALER INHALATION SCH (08:10)
[2020-10-18] MEDS: INSULIN ASPART (NovoLOG) 100 UNIT/ML VIAL SQ SCH ×8 (08:37→20:58)
[2020-10-18] MEDS: PREGABALIN 100 MG CAP PO SCH ×2 (08:39→20:59)
[2020-10-18] MEDS: ASCORBIC ACID 500 MG TAB PO SCH (08:39)
[2020-10-18] MEDS: FLUCONAZOLE 100 MG TAB PO SCH (08:39)
[2020-10-18] MEDS: BENZONATATE 100 MG CAP PO SCH ×3 (08:39→21:00)
[2020-10-18] MEDS: ZINC SULFATE 220 MG CAP PO SCH (08:39)
[2020-10-18] MEDS: LINAGLIPTIN 5 MG TABLET PO SCH (08:39)
[2020-10-18] MEDS: HEPARIN SODIUM,PORCINE/PF 5,000 UNIT/0.5 ML SYRINGE SQ SCH (08:40)
[2020-10-18] MEDS: CHOLECALCIFEROL 25 MCG (1000 IU) TABLET PO SCH (08:40)
[2020-10-18] MEDS: FUROSEMIDE 20 MG TAB PO SCH (08:40)
[2020-10-18] MEDS: guaiFENesin 600 MG TABLET.ER PO SCH ×2 (08:40→21:00)
[2020-10-18] MEDS: NYSTATIN 100,000 UNIT/ML SUSP 500,000 UNIT/5 ML CUP PO SCH ×4 (08:41→21:00)
[2020-10-18] MEDS: FLUoxetine HCL 20 MG CAP PO SCH (09:31)
[2020-10-18] MEDS: Acetaminophen-Codeine 300-30mg TAB PO PRN (10:48)
[2020-10-18 11:45] LABS: Glucose,Whole Blood 336 mg/dL (75-99)
--- NOTE | 2020-10-18 11:45 | P.PN ---
Subjective Progress Note Date: 10/18/20 This is a 65-year-old female patient of Dr. Deras with past medical history significant for heart failure, COPD, chronic hypoxic respiratory failure on home O2 at 2 L nasal cannula and obstructive sleep apnea on BiPAP support at bedtime, diabetes mellitus type 2 with diabetic neuropathy, chronic diastolic heart failure, valvular heart disease, hypertension, hypothyroidism, GI bleed with anemia. Patient has had multiple admissions and multiple endoscopies for GIB and anemia. 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 The bleeding seems to be stable since that time. They, patient presented to the hospital due to chest pain in the midsternal area across her chest seems to be worse after she eats it was hurting after she had breakfast this morning. She complains of shortness of breath with exertion that is worse than the last time she was admitted. She states her stools have been normal. She does complain of abdominal distention and fullness after eating. Patient presented to the [facility] emergency center for evaluation. Patient was found to be afebrile, heart rate 71, blood pressure 140/61, pulse ox 100% on oxygen. WBC 14.8, hemoglobin 8.2 which is stable for this patient. Platelet count is 310. Sodium 138, potassium 4.2, chloride 97, CO2 35, BUN 39 and creatinine 1.34 which is also patient's baseline. Blood sugar 207. D-dimer 0.89. Alkaline phosphatase 160. Troponin negative. Pro- BNP 2570. Lactic acid 1.0. Coronavirus PCR not detected. EKG sinus rhythm with nonspecific ST-T wave changes. Chest x-ray reveals vascular and int erstitial markings prominent in the mid to lower lungs bilaterally similar to previous. Consider heart failure versus interstitial infiltrate. CAT scan of the abdomen and pelvis without contrast revealed hepatomegaly and 19.6 cm. Correlate with LFTs and risk factors for underlying hepatocellular disease. 1.3 cm right common iliac chain lymph node is enlarged. Left inguinal femoral chain lymph nodes are borderline enlarged. Findings probably reactive postinflammatory. 1.1 cm indeterminate right adrenal nodule. Moderate stool burden and generalized colonic diverticulosis. Tiny hiatal hernia. Consult was admitted for cardiology and patient has been seen by Dr. Yang for progressive dyspnea secondary to combination of COPD and element of heart failure with preserved systolic function. Plan to continue IV diuretics for 24 hours. 10/07: She has been afebrile, heart rate 86, blood pressure 101/46, pulse ox 90% on 4 L nasal cannula. WBC 11, hemoglobin 7.9, platelet count 319. Sodium 138, potassium 4.3, chloride 95, CO2 37, BUN 31 and creatinine 1.02. Blood sugars have been running 185 up to 405 at its 4 PM yesterday. Patient missed her morning dose of Levemir yesterday. Patient underwent gastric emptying study which was negative for gastroparesis. Patient is continued on IV Lasix at 40 mg every 12 hours. 10/08: Patient is afebrile, heart rate 75, blood pressure 146/57, pulse ox 92% on 3 L nasal cannula. Repeat blood work reveals sodium 138, potassium 4.9, chloride 96, CO2 37, BUN 38 creatinine 1.13. Blood sugars have been running b etween 211 and 307. Hemoglobin A1c from July is 5.2. Patient has increased dyspnea today along with a dry cough. She complains of shortness of breath with minimal activity, positive orthopnea. Patient was having issues with constipation and last evening and Senokot was added and she states she has had lots of bowel movements. Cardiology increase Lasix every 8 hours. Also Solu- Medrol added. 10/09: Pulse ox is 94% on 3 L nasal cannula. Patient has been afebrile, heart rate 86, blood pressure 134/63. Patient continues to have shortness of breath and nonproductive cough. She is wheezing. Positive shortness of breath with minimal activity. CTA of the chest has been ordered to rule out PE. Blood sugar at 2130 was 604 and also high yesterday afternoon, patient received additional N ovoLog on top of scale. Levemir 42 units subcu ordered this morning versus her normal dose of 30. Scheduled NovoLog will be increased to 6 units with meals. Solu-Medrol will be decreased to every 12 hours Repeat blood work reveals sodium 131, potassium 5.9, chloride 89, CO2 38, BUN 41 and creatinine 1.15. 10/10: CTA of the chest was suboptimal study without central pulmonary embolism. Cardiomegaly with mild interstitial and alveolar edema raises concern for heart failure exacerbation. No focal consolidation. She is currently on Lasix 40 mg IV 3 times daily. She continues to have shortness of breath, dyspnea with exertion and lower extremity edema. Lasix will be decreased tomorrow to 60 mg oral twice daily. Blood sugars continue to be in the 400s and 500s. She has received additional NovoLog plus scale. Levemir will be increased to 45 units twice daily and scheduled NovoLog increased to 12 units with meals and at at bedtime. Solu-Medrol was discontinued and patient to start prednisone tomorrow. Pulse ox is 95% on 3 L nasal cannula. She's been afebrile, heart rate 60, blo od pressure 131/54. Repeat blood work reveals WBC 15.8, hemoglobin 7.5, platelet count 388. Sodium was 129, potassium 6.1 and one dose of Kayexalate 30 mg ordered, oral prednisone scheduled was discontinued and Aldactone decreased to 12.5 mg daily. Chloride 84, CO2 39, BUN 57 and creatinine 1.41. 10/11 and patient examined bedside. Continue have shortness of breath on exertion. For some mild is continued at 40 IV every 8 hours per cardiology. On evaluation as patient's blood work today potassium is improved to 5.1 chloride is 85 bicarb 42 BUN 64 creatinine 1.34 glucose remains high at 444. Lantus increased to 50 twice a day today and NovoLog increased to 15 units with meals continue and follow with sliding scale. Solu-Medrol switched to prednisone 40 mg daily the patient labs tomorrow 10/12 patient examined at bedside. As shortness of breath on exertion and fatigue. Vitals checked in the room such as patient's systolic over 80s. Vitals as checked at 1 PM suggest blood pressure 125/71 with oxygen saturation of 96% on 8 L (55 years. 16 hold patient's blood pressure medication and Lasix today as patient's blood pressure is on the lower side. ABG to be obtained with a pH of 7.34 pCO2 of 81 pO2 59 and bicarb 43 appears to be secondary to metabolic alkalosis secondary to overdiuresis.. Patient to be placed on BiPAP for COPD exacerbation. Hold Lasix and metolazone. Continue Levemir at the current dose of 50 subcu twice a day with insulin aspart 15 subcu before meals and at bedtime. 10/13: Seen today in follow-up. Her hemoglobin is 7.4 and one dose of Ferrlecit IV will be ordered. Lasix will be resumed today at 60 mg oral. Patient utilizes BiPAP last night. She has gotten encouraged to use this during the day as well. 10/14: Patient noted to have a hacking barking cough. She states it started around 1:00 this morning and has been up all night coughing. She denies having any fever or chills. She denies any nausea or vomiting. A rapid Covid test was ordered which surprisingly came back positive. She has been afebrile, heart rate 91, blood pressure 148/63, pulse ox 94% on 2 L nasal cannula. WBC 9.1, hemoglobin 7.6, platelet count 297. D-dimer 0.83, LDH 669. C-reactive protein 1.6. Sodium 133, potassium 4.6, chloride 90, CO2 34, BUN 49 and creatinine 1.31. She is followed by pulmonary medicine. 10/15: Patient has not been able to sleep since 2 AM. She's experienced increased dyspnea. We have documented a 93% pulse ox on 2 L nasal cannula but this does not reflect patient's condition at the time. Patient had increasing dyspnea along with feeling tired and weak. Patient was transitioned to BiPAP and continues to have dyspnea. She has been utilizing BiPAP at nighttime and somewhat during the day for high CO2 has been improving Patient noted to have wheezing and will be placed back on Solu-Medrol 60 mg IV every 6 hours. We are also increasing Levemir and scheduled NovoLog to cover for hyperglycemia. She will be transferred to the cardiac stepdown unit and pulmonary medicine to be notified of patient's condition. Patient has been afebrile, heart rate 93, blood pressure 113/63, pulse ox 97% on 30% BiPAP. Repeat inflammatory markers ordered for tomorrow. 10/16 patient examined bedside continues to complain of fatigue, headache, body aches, sores in the mouth. Vitals obtained suggested temp of 97.6 pulse 87 respiratory rate 20 blood pressure 140/62 oxygen saturation 94% on 3 L. Headache not resolve with Tylenol. We will add morphine 2 mg IV every 6 hours. Nystatin added to help with oral thrush. PTOT consulted for generalized weakness and debility. No labs to evaluate. Repeat labs tomorrow 10/17 patient examined bedside complains of substernal chest pain on coughing which is improved with breathing treatment. EKG obtained showed normal sinus rhythm with supraventricular complexes. No change compared to previous EKG. Troponin 2 ordered. Tessalon Perles added for cough. Patient is on Mucinex and guaifenesin codeine syrup for cough. Patient does sound congested and will switch patient's inhaler from Flovent to Symbicort. Vitals reviewed patient is afebrile pulse of 111 respiratory rate 20 blood pressure 119/60, oxygen saturation 94% on 3 L. No morning labs to review. Patient's blood sugar continues to be elevated. We will increase patient's Lantus to 70 units twice a day with mealtime insulin. Neck supple Medrol reduced to 40 every 8. No plan for him to have severe or Tocilizumab per pulmonary. Repeat labs ordered chest x-ray ordered. Patient likely discharge on Tuesday for possible oxygen needs and would need to be discharged home on oxygen. 10/18: Patient was examined at the bedside she is found sitting up in the chair currently on 3 L of O2 via nasal cannula. Patient states that she is breathing much better. She is utilizing a BiPAP machine at night for sleeping. She does have a BiPAP and CPAP machine at home. Patient states that the CPAP machine is not on enough to help with her shortness of breath at night. Patient remains afebrile heart rate 74, respirations 22, blood pressure 155/72, O2 saturation is 91% on 3 L of nasal O2 which is baseline for the patient. We will repeat CBC in the morning. REVIEW OF SYSTEMS Constitutional: No fever, no chills, no night sweats. No weight change. Reports sitting weakness and fatigue. No daytime sleepiness. Reports headache EENT: No headache. No blurred vision or double vision, no loss of vision. No loss of Hearing, no ringing in the ears, no dizziness. No nasal drainage or congestion. No epistaxis. No sore throat. Reports bumps in the mouth Lungs: Reports shortness of breath, reports cough, no sputum production. Reports wheezing. Reports dyspnea with exertion. Cardiovascular: No chest pain, no lower extremity edema. No palpitations. No paroxysmal nocturnal dyspnea. No orthopnea. No lightheadedness or dizziness. No syncopal episodes. Abdominal: Reports upper abdominal pain. No nausea, vomiting. no diarrhea. Reports constipation. No bloody reports tarry stools. Denies bright red bleeding. no loss of appetite. Genitourinary: No dysuria, increased frequency, urgency. No urinary retention. Musculoskeletal: No myalgias. No muscle weakness, no gait dysfunction, no frequent falls. No back pain. No neck pain. Reports body aches Integumentary: No wounds, no lesions. No rash or pruritus. No unusual bruising. No change in hair or nails. Neurologic: No aphasia. No facial droop. No change in mentation. No head injury. No headache. No paralysis. No paresthesia. Psychiatric: No depression. No anxiety. Endocrine: Reported reports abnormal blood sugars. No weight change. PHYSICAL EXAMINATION Gen: This is a 65-year-old female. She is resting and recliner and appears to be comfortable at rest. HEENT: Head is atraumatic, normocephalic. Pupils equal, round. Sclerae is anicteric. Conjunctiva pale. NECK: Supple. No JVD. No lymphadenopathy. No thyromegaly. LUNGS: Wheezing resolved, improved air entry bilaterally. Crackles noted bilaterally No intercostal retractions. HEART: Regular rate and rhythm. Systolic murmur. ABDOMEN: Soft. Bowel sounds are present. No masses. No tenderness. EXTREMITIES: No pedal edema. No calf tenderness. Dorsalis pedis +2 bilaterally. NEUROLOGICAL: Patient is awake, alert and oriented x3. Cranial nerves 2 through 12 are grossly intact. Assessment/plan: 1. Chronic hypoxic respiratory failure with progressive dyspnea secondary to COPD and acute on chronic diastolic heart failure as well as Covid 19 pneumonia, POA. Continue Lasix at 60 mg oral daily, metolazone 2.5 mg on Tuesday on hold . Aldactone 12.5 mg daily resumed on 10/17, discontinue pred nisone and r Solu-Medrol 40 mg IV every 8 hours. CTA of the chest ruled out pulmonary embolism. Flovent switch to Symbicort 2. Upper abdominal/lower chest pain with abdominal bloating and early satiety, ruled out gastroparesis. Most likely secondary to constipation and fecal burden. Continue Senokot 2 daily at 1800. 3. History of GI bleed with acute blood loss anemia secondary to small n onbleeding duodenal angiectasia status post argon plasma coagulated. Continue Protonix 40 mg oral twice daily. Status post Ferrlecit infusion 1. 4. Diabetes mellitus type 2 with diabetic neuropathy uncontrolled with hyperglycemia secondary to steroids. Continue Levemir increased to 70 units tw ice daily, scheduled NovoLog increased to 25 units before meals and at bedtime, continue NovoLog scale before meals and at bedtime. Continue Januvia 100 mg daily. Hemoglobin A1c in July was 5.2. 5. Diabetic neuropathy. Continue Lyrica 200 milligrams twice daily. 6. COPD without exacerbation. Continue DuoNeb treatment 4 times daily as needed, Pulmicort 1 mg twice daily, Singulair 10 mg at bedtime. 7. Hypertension. Continue Lasix, Lopressor 100 mg twice daily. 8. Hyperlipidemia. Continue Lipitor 40 mg daily. 9. Obstructive sleep apnea. Continue BiPAP at night. 10. Hypothyroidism. Continue levothyroxine 125 g daily. Restless leg syndrome. Continue Requip 2 mg twice daily. 11. Recurrent depression. Continue Prozac 20 mg daily. 12. Oral thrush. Diflucan 100 mg daily. Nystatin added for one week 13. Acute kidney injury. Metolazone held, continue Lasix at 60 mg daily Aldactone resumed at 12.5 daily 14. Hyperkalemia, resolved status post Kayexalate 1. 15. Metabolic alkalosis secondary to overdiuresis. Diamox discontinued, continue BiPAP. 16. COVID-19. Detected positive. Continue with respiratory support. 17. GI prophylaxis. Protonix twice daily. 18. DVT prophylaxis. Heparin subcu every 12 hours. DISCHARGE PLAN Home, possibly Tuesday Impression and plan of care have been directed as dictated by the signing physician. Brandy Villatoro nurse practitioner acting as scribe for signing physician. Objective - Vital Signs Vital signs: Vital Signs Temp 97.7 F 10/18/20 08:00 Pulse 74 10/18/20 08:00 Resp 22 10/18/20 08:00 BP 155/72 10/18/20 08:00 Pulse Ox 91 L 10/18/20 08:00 Intake & Output 10/17/20 10/18/20 10/18/20 18:59 06:59 18:59 Intake Total 420 480 Balance 420 480 Weight 112.2 kg Intake: Oral 420 480 Other: Voiding Method Toilet Toilet Toilet - Labs CBC & Chem 7: 10/17/20 13:41 10/18/20 06:15 Labs: Abnormal Lab Results - Last 24 Hours (Table) 10/17/20 10/17/20 10/17/20 Range/Units 11:50 13:41 13:41 WBC 19.0 H (3.8-10.6) k/uL RBC 3.59 L (3.80-5.40) m/uL Hgb 7.9 L (11.4-16.0) gm/dL Hct 29.3 L (34.0-46.0) % MCH 22.1 L (25.0-35.0) pg MCHC 27.1 L (31.0-37.0) g/dL RDW 19.8 H (11.5-15.5) % Neutrophils # 17.8 H (1.3-7.7) k/uL Neutrophils # (Manual) 17.60 H (1.3-7.7) k/uL Lymphocytes # 0.4 L (1.0-4.8) k/uL Lymphocytes # (Manual) 0.19 L (1.0-4.8) k/uL Monocytes # (Manual) 1.14 H (0-1.0) k/uL Metamyelocytes # (Man) 0.19 H (0) k/uL Sodium 131 L (137-145) mmol/L Potassium 5.2 H (3.5-5.1) mmol/L Chloride 93 L (98-107) mmol/L Carbon Dioxide (22-30) mmol/L BUN 48 H (7-17) mg/dL Creatinine 1.28 H (0.52-1.04) mg/dL Glucose 348 H (74-99) mg/dL POC Glucose (mg/dL) 452 H (75-99) mg/dL Alkaline Phosphatase (38-126) U/L C-Reactive Protein 2.0 H (<1.0) mg/dL 10/17/20 10/17/20 10/18/20 Range/Units 16:36 20:18 06:15 WBC (3.8-10.6) k/uL RBC (3.80-5.40) m/uL Hgb (11.4-16.0) gm/dL Hct (34.0-46.0) % MCH (25.0-35.0) pg MCHC (31.0-37.0) g/dL RDW (11.5-15.5) % Neutrophils # (1.3-7.7) k/uL Neutrophils # (Manual) (1.3-7.7) k/uL Lymphocytes # (1.0-4.8) k/uL Lymphocytes # (Manual) (1.0-4.8) k/uL Monocytes # (Manual) (0-1.0) k/uL Metamyelocytes # (Man) (0) k/uL Sodium 134 L (137-145) mmol/L Potassium (3.5-5.1) mmol/L Chloride 95 L (98-107) mmol/L Carbon Dioxide 33 H (22-30) mmol/L BUN 45 H (7-17) mg/dL Creatinine 1.12 H (0.52-1.04) mg/dL Glucose 256 H (74-99) mg/dL POC Glucose (mg/dL) 225 H 389 H (75-99) mg/dL Alkaline Phosphatase 129 H (38-126) U/L C-Reactive Protein (<1.0) mg/dL 10/18/20 Range/Units 07:31 WBC (3.8-10.6) k/uL RBC (3.80-5.40) m/uL Hgb (11.4-16.0) gm/dL Hct (34.0-46.0) % MCH (25.0-35.0) pg MCHC (31.0-37.0) g/dL RDW (11.5-15.5) % Neutrophils # (1.3-7.7) k/uL Neutrophils # (Manual) (1.3-7.7) k/uL Lymphocytes # (1.0-4.8) k/uL Lymphocytes # (Manual) (1.0-4.8) k/uL Monocytes # (Manual) (0-1.0) k/uL Metamyelocytes # (Man) (0) k/uL Sodium (137-145) mmol/L Potassium (3.5-5.1) mmol/L Chloride (98-107) mmol/L Carbon Dioxide (22-30) mmol/L BUN (7-17) mg/dL Creatinine (0.52-1.04) mg/dL Glucose (74-99) mg/dL POC Glucose (mg/dL) 259 H (75-99) mg/dL Alkaline Phosphatase (38-126) U/L C-Reactive Protein (<1.0) mg/dL
[2020-10-18 11:52] LABS: Glucose,Whole Blood 471 mg/dL (75-99)
[2020-10-18 16:55] LABS: Glucose,Whole Blood 418 mg/dL (75-99)
[2020-10-18] MEDS: SENNOSIDES-DOCUSATE SODIUM 1 EACH TAB PO SCH (17:18)
--- NOTE | 2020-10-18 17:33 | P.PN ---
Subjective Progress Note Date: 10/18/20 Principal diagnosis: Shortness of breath, hypoxia On 10/18/2020 patient seen in follow-up on medical surgical floor, she is sitting up in the recliner, she is currently on BiPAP with pressures of 12/6 and FiO2 of 30%, breathing comfortably, her pulse ox is around 90%, she does wear 2- 3 L when she is not on BiPAP, and her pulse ox is 91-94%, she's been afebrile, hemodynamically she's been stable, her chest x-ray today shows progression of bilateral airspace disease compared to prior exam. She remains on current treatment with oral Lasix 60 mg daily, IV Solu-Medrol 40 mg every 8 hours, and she is on subcutaneous heparin for DVT prophylaxis. Objective - Vital Signs Vital signs: Vital Signs Temp 97.5 F L 10/18/20 14:00 Pulse 82 10/18/20 14:00 Resp 21 10/18/20 14:00 BP 115/62 10/18/20 14:00 Pulse Ox 90 L 10/18/20 14:00 Intake & Output 10/17/20 10/18/20 10/18/20 18:59 06:59 18:59 Intake Total 420 720 Balance 420 720 Weight 112.2 kg Intake: Oral 420 720 Other: Voiding Method Toilet Toilet Toilet - Exam GENERAL EXAM: Alert, 65-year-old white female on BiPAP support, with pressures of 12/6 and FiO2 of 30% comfortable in no apparent distress. HEAD: Normocephalic/atraumatic. EYES: Normal reaction of pupils, equal size. Conjunctiva pink, sclera white. NOSE: Clear with pink turbinates. THROAT: No erythema or exudates. NECK: No masses, no JVD, no thyroid enlargement, no adenopathy. CHEST: No chest wall deformity. Symmetrical expansion. LUNGS: Equal air entry with no crackles, wheeze, rhonchi or dullness. CVS: Regular rate and rhythm, normal S1 and S2, no gallops, no murmurs, no rubs ABDOMEN: Soft, nontender. No hepatosplenomegaly, normal bowel sounds, no guarding or rigidity. EXTREMITIES: No clubbing, 1+ lower extremity edema, no cyanosis, 2+ pulses and upper and lower extremities. MUSCULOSKELETAL: Muscle strength and tone normal. SPINE: No scoliosis or deformity SKIN: No rashes CENTRAL NERVOUS SYSTEM: Alert and oriented -3. No focal deficits, tone is normal in all 4 extremities. PSYCHIATRIC: Alert and oriented -3. Appropriate affect. Intact judgment and insight. - Labs CBC & Chem 7: 10/17/20 13:41 10/18/20 06:15 Labs: Abnormal Lab Results - Last 24 Hours (Table) 10/17/20 10/18/20 10/18/20 Range/Units 20:18 06:15 07:31 Sodium 134 L (137-145) mmol/L Chloride 95 L (98-107) mmol/L Carbon Dioxide 33 H (22-30) mmol/L BUN 45 H (7-17) mg/dL Creatinine 1.12 H (0.52-1.04) mg/dL Glucose 256 H (74-99) mg/dL POC Glucose (mg/dL) 389 H 259 H (75-99) mg/dL Alkaline Phosphatase 129 H (38-126) U/L 10/18/20 10/18/20 10/18/20 Range/Units 11:44 11:49 16:48 Sodium (137-145) mmol/L Chloride (98-107) mmol/L Carbon Dioxide (22-30) mmol/L BUN (7-17) mg/dL Creatinine (0.52-1.04) mg/dL Glucose (74-99) mg/dL POC Glucose (mg/dL) 336 H 471 H 418 H (75-99) mg/dL Alkaline Phosphatase (38-126) U/L Assessment and Plan Plan: Assessment: #1. Acute hypoxic respiratory failure and dyspnea multifactorial, related to history of COPD, with acute exacerbation, diastolic CHF exacerbation and COVID- 19 pneumonitis. Patient was outside the window for Remdesivir, and she remains on IV steroids, oral diuretics, breathing treatments #2. History of COPD on home oxygen on a regular basis at 2 L #3. History of obstructive sleep apnea patient has a BiPAP unit at home which she uses on a regular basis #4. Diabetes with diabetic neuropathy, and possibility of hepatic history of paresis #5. History of GI bleeding and chronic anemia #6. Hypertension #7. Hyperlipidemia #8. Hypothyroidism #9. Depression #10. Acute kidney injury Plan: Continue IV steroids Today's chest x-ray has been reviewed and shows worsening in the appearance of bilateral infiltrates The patient feels short of breath, but oxygen requirements are close to her baseline Patient has a BiPAP unit at home and right now she is on FiO2 of 30% on BiPAP settings of 12/6 She does wear 2-3 L of nasal cannula oxygen when she is not on BiPAP and tolerates it very well We'll continue oral diuretics She was outside the window for Remdesivir No escalating oxygen need to qualify her for Tocilizumab Continue to monitor her condition closely for any worsening Overall prognosis is extremely guarded I performed a history & physical examination of the patient and discussed their management with my nurse practitioner, Rika Hartley. I reviewed the nurse practitioner's note and agree with the documented findings and plan of care. Lung sounds are positive for diffuse wheezes throughout the lung phelps. The findings and the impression was discussed with the patient. I attest to the documentation by the nurse practitioner. Time with Patient: Less than 30
[2020-10-18 20:15] LABS: Glucose,Whole Blood 375 mg/dL (75-99)
[2020-10-18] MEDS: MONTELUKAST 10 MG TAB PO SCH (20:59)
[2020-10-18] MEDS: ALPRAZolam 0.25 MG TAB PO PRN (21:01)
[2020-10-19] MEDS: ONDANSETRON 4 MG/2 ML VIAL IVP PRN (01:59)
[2020-10-19] MEDS: guaiFENesin-Coden 100-10MG/5ML 10 ML CUP PO PRN (04:20)
[2020-10-19] MEDS: LEVOTHYROXINE 125 MCG TAB PO SCH (05:28)
[2020-10-19] MEDS: INSULIN DETEMIR (LEVEMIR) 100 UNIT/ML SYR SQ SCH ×2 (07:30→22:44)
[2020-10-19] MEDS: methylPREDNISolone SOD SUCCI 40 MG/ML 1 ML VIAL IV SCH ×2 (07:31→15:36)
[2020-10-19] MEDS: PANTOPRAZOLE 40 MG TABLET PO SCH ×2 (07:31→18:07)
[2020-10-19 07:36] LABS: Glucose,Whole Blood 197 mg/dL (75-99)
[2020-10-19] MEDS: INSULIN ASPART (NovoLOG) 100 UNIT/ML VIAL SQ SCH ×8 (08:28→22:43)
[2020-10-19] MEDS: ZINC SULFATE 220 MG CAP PO SCH (08:29)
[2020-10-19] MEDS: FLUCONAZOLE 100 MG TAB PO SCH (08:29)
[2020-10-19] MEDS: FLUoxetine HCL 20 MG CAP PO SCH (08:29)
[2020-10-19] MEDS: LINAGLIPTIN 5 MG TABLET PO SCH (08:29)
[2020-10-19] MEDS: CHOLECALCIFEROL 25 MCG (1000 IU) TABLET PO SCH (08:30)
[2020-10-19] MEDS: ASCORBIC ACID 500 MG TAB PO SCH (08:30)
[2020-10-19] MEDS: guaiFENesin 600 MG TABLET.ER PO SCH ×2 (08:30→22:43)
[2020-10-19] MEDS: FUROSEMIDE 20 MG TAB PO SCH ×2 (08:31→15:37)
[2020-10-19] MEDS: NYSTATIN 100,000 UNIT/ML SUSP 500,000 UNIT/5 ML CUP PO SCH ×4 (08:31→22:45)
[2020-10-19] MEDS: BENZONATATE 100 MG CAP PO SCH ×3 (08:31→22:46)
[2020-10-19] MEDS: PREGABALIN 100 MG CAP PO SCH ×2 (08:31→22:44)
[2020-10-19] MEDS: ENOXAPARIN 40 MG/0.4 ML SYRINGE SQ SCH (09:12)
[2020-10-19] MEDS: SYMBICORT 160-4.5 MCG INHALER INHALATION SCH ×2 (09:22→20:37)
[2020-10-19] MEDS: ALBUTEROL HFA INHALER INHALATION SCH ×4 (09:22→20:37)
[2020-10-19] MEDS: TIOTROPIUM 2.5 MCG INHALER INHALATION SCH (09:23)
[2020-10-19 10:25] LABS: Basophils # (A) 0.02 X 10*3/uL (0.00-0.10); Basophils % (A) 0.1 %; Eosinophils # (A) 0 X 10*3/uL (0.04-0.35); Eosinophils % (A) 0 %; HCT 29.7 % (37.2-46.3); HGB 7.9 g/dL (12.0-15.0); Lymphocytes # (A) 0.46 X 10*3/uL (0.90-5.00); Lymphocytes % (A) 3.2 %; MCH 21.4 pg (27.0-32.0); MCHC 26.6 g/dL (32.0-37.0); MCV 80.5 fL (80.0-97.0); Mean Platelet Volume 11.1 fL (9.5-12.2); Monocytes # (A) 0.68 X 10*3/uL (0.20-1.00); Monocytes % (A) 4.7 %; Neutrophils # (A) 12.97 X 10*3/uL (1.80-7.70); Neutrophils % (A) 89.7 %; Platelet Count 229 X 10*3/uL (140-440); RBC 3.69 X 10*6/uL (4.10-5.20); RDW 21.5 % (11.5-14.5); WBC 14.46 X 10*3/uL (4.50-10.00)
[2020-10-19] MEDS: MORPHINE SULFATE 2 MG/ML SYRINGE IVP PRN (10:50)
--- NOTE | 2020-10-19 11:02 | P.PN ---
Subjective Progress Note Date: 10/19/20 Principal diagnosis: Acute hypoxic respiratory failure, multifactorial The patient is seen today 09/18/2020 in follow-up on the regular medical floor. She is currently sitting up in a chair at the bedside. Awake and alert in no acute distress. She states she has been having ongoing issues with shortness of breath on exertion and cough. She has been intolerant the BiPAP last night. She is on oxygen at 4 L/m per nasal cannula with O2 saturation in the mid 90s. She's afebrile. White count 14.4. Hemoglobin 7.9. D-dimer 0.76. Glucose 197. She remains on IV Solu-Medrol, albuterol, Spiriva, Singulair and Symbicort along with Tessalon Perles. On oral diuretics. Remains on vitamin supplements. Lovenox for DVT prophylaxis. Objective - Vital Signs Vital signs: Vital Signs Temp 98.4 F 10/19/20 08:16 Pulse 77 10/19/20 08:16 Resp 21 10/19/20 08:16 BP 137/75 10/19/20 08:16 Pulse Ox 95 10/19/20 09:23 Intake & Output 10/18/20 10/19/20 10/19/20 18:59 06:59 18:59 Intake Total 960 240 Balance 960 240 Weight 112.3 kg Intake: Oral 960 240 Other: Voiding Method Toilet Toilet Toilet - Exam GENERAL EXAM: Alert, pleasant, morbidly obese 65-year-old female patient, up in a chair, on 4 L nasal cannula, fairly comfortable in no apparent distress. HEAD: Normocephalic. EYES: Normal reaction of pupils, equal size. NOSE: Clear with pink turbinates. THROAT: No erythema or exudates. NECK: No masses, no JVD. CHEST: No chest wall deformity. LUNGS: Equal air entry with crackles in the bilateral posterior bases, end expiratory wheeze, diminished. CVS: S1 and S2 normal with no audible murmur, regular rhythm. ABDOMEN: No hepatosplenomegaly, normal bowel sounds, no guarding or rigidity. SPINE: No scoliosis or deformity SKIN: No rashes CENTRAL NERVOUS SYSTEM: No focal deficits, tone is normal in all 4 extremities. EXTREMITIES: There is 1-2+ peripheral edema. No clubbing, no cyanosis. Peripheral pulses are intact. - Labs CBC & Chem 7: 10/19/20 05:31 10/18/20 06:15 Labs: Abnormal Lab Results - Last 24 Hours (Table) 10/18/20 10/18/20 10/18/20 Range/Units 11:44 11:49 16:48 WBC (4.50-10.00) X 10*3/uL RBC (4.10-5.20) X 10*6/uL Hgb (12.0-15.0) g/dL Hct (37.2-46.3) % MCH (27.0-32.0) pg MCHC (32.0-37.0) g/dL RDW (11.5-14.5) % Absolute Nucleated RBC (0.00-0.00) X 10*3/uL Immature Gran # (0.00-0.04) X 10*3/uL Neutrophils # (1.80-7.70) X 10*3/uL Lymphocytes # (0.90-5.00) X 10*3/uL Eosinophils # (0.04-0.35) X 10*3/uL NRBC/100 WBC Diff (0.0-0.0) /100 WBCS D-Dimer (<0.60) mg/L FEU POC Glucose (mg/dL) 336 H 471 H 418 H (75-99) mg/dL 10/18/20 10/19/20 10/19/20 Range/Units 20:13 05:31 05:31 WBC 14.46 H (4.50-10.00) X 10*3/uL RBC 3.69 L (4.10-5.20) X 10*6/uL Hgb 7.9 L (12.0-15.0) g/dL Hct 29.7 L (37.2-46.3) % MCH 21.4 L (27.0-32.0) pg MCHC 26.6 L (32.0-37.0) g/dL RDW 21.5 H (11.5-14.5) % Absolute Nucleated RBC 0.05 H (0.00-0.00) X 10*3/uL Immature Gran # 0.33 H (0.00-0.04) X 10*3/uL Neutrophils # 12.97 H (1.80-7.70) X 10*3/uL Lymphocytes # 0.46 L (0.90-5.00) X 10*3/uL Eosinophils # 0 L (0.04-0.35) X 10*3/uL NRBC/100 WBC Diff 0.3 H (0.0-0.0) /100 WBCS D-Dimer 0.76 H (<0.60) mg/L FEU POC Glucose (mg/dL) 375 H (75-99) mg/dL 10/19/20 Range/Units 07:34 WBC (4.50-10.00) X 10*3/uL RBC (4.10-5.20) X 10*6/uL Hgb (12.0-15.0) g/dL Hct (37.2-46.3) % MCH (27.0-32.0) pg MCHC (32.0-37.0) g/dL RDW (11.5-14.5) % Absolute Nucleated RBC (0.00-0.00) X 10*3/uL Immature Gran # (0.00-0.04) X 10*3/uL Neutrophils # (1.80-7.70) X 10*3/uL Lymphocytes # (0.90-5.00) X 10*3/uL Eosinophils # (0.04-0.35) X 10*3/uL NRBC/100 WBC Diff (0.0-0.0) /100 WBCS D-Dimer (<0.60) mg/L FEU POC Glucose (mg/dL) 197 H (75-99) mg/dL Assessment and Plan Assessment: 1 Acute hypoxic respiratory failure and dyspnea multifactorial, related to history of COPD, with acute exacerbation, diastolic CHF exacerbation and COVID- 19 pneumonitis. Patient was outside the window for Remdesivir, and she remains on IV steroids, oral diuretics, breathing treatments 2 History of COPD on home oxygen on a regular basis at 2 L 3 History of obstructive sleep apnea patient has a BiPAP unit at home which she uses on a regular basis 4 Diabetes with diabetic neuropathy, and possibility of hepatic history of paresis 5 History of GI bleeding and chronic anemia 6 Hypertension 7 Hyperlipidemia 8 Hypothyroidism 9 Depression 10 Acute kidney injury Plan: The patient was seen and evaluated by Dr. Cruz Increase her Lasix to 60 mg twice a day Follow-up chest x-ray in the a.m. Titrate the FiO2 as tolerated Not qualifying for Tocilizumab currently Continue to utilize BiPAP as tolerated Prognosis guarded We will continue to follow and make further recommendations based on her clinical status I, the cosigning physician, performed a history & physical examination of the patient. Lungs sounds with basilar crackles, end expiratory wheeze, diminished. Maintaining good O2 saturations in the 90s on 4 L/m per nasal cannula. I discussed the assessment and plan of care with my nurse practitioner, Margoth Enriquez. I attest to the above note as dictated by her.
--- NOTE | 2020-10-19 11:03 | P.PN ---
Subjective Progress Note Date: 10/19/20 This is a 65-year-old female patient of Dr. Deras with past medical history significant for heart failure, COPD, chronic hypoxic respiratory failure on home O2 at 2 L nasal cannula and obstructive sleep apnea on BiPAP support at bedtime, diabetes mellitus type 2 with diabetic neuropathy, chronic diastolic heart failure, valvular heart disease, hypertension, hypothyroidism, GI bleed with anemia. Patient has had multiple admissions and multiple endoscopies for GIB and anemia. 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 The bleeding seems to be stable since that time. They, patient presented to the hospital due to chest pain in the midsternal area across her chest seems to be worse after she eats it was hurting after she had breakfast this morning. She complains of shortness of breath with exertion that is worse than the last time she was admitted. She states her stools have been normal. She does complain of abdominal distention and fullness after eating. Patient presented to the [facility] emergency center for evaluation. Patient was found to be afebrile, heart rate 71, blood pressure 140/61, pulse ox 100% on oxygen. WBC 14.8, hemoglobin 8.2 which is stable for this patient. Platelet count is 310. Sodium 138, potassium 4.2, chloride 97, CO2 35, BUN 39 and creatinine 1.34 which is also patient's baseline. Blood sugar 207. D-dimer 0.89. Alkaline phosphatase 160. Troponin negative. Pro- BNP 2570. Lactic acid 1.0. Coronavirus PCR not detected. EKG sinus rhythm with nonspecific ST-T wave changes. Chest x-ray reveals vascular and int erstitial markings prominent in the mid to lower lungs bilaterally similar to previous. Consider heart failure versus interstitial infiltrate. CAT scan of the abdomen and pelvis without contrast revealed hepatomegaly and 19.6 cm. Correlate with LFTs and risk factors for underlying hepatocellular disease. 1.3 cm right common iliac chain lymph node is enlarged. Left inguinal femoral chain lymph nodes are borderline enlarged. Findings probably reactive postinflammatory. 1.1 cm indeterminate right adrenal nodule. Moderate stool burden and generalized colonic diverticulosis. Tiny hiatal hernia. Consult was admitted for cardiology and patient has been seen by Dr. Yang for progressive dyspnea secondary to combination of COPD and element of heart failure with preserved systolic function. Plan to continue IV diuretics for 24 hours. 10/07: She has been afebrile, heart rate 86, blood pressure 101/46, pulse ox 90% on 4 L nasal cannula. WBC 11, hemoglobin 7.9, platelet count 319. Sodium 138, potassium 4.3, chloride 95, CO2 37, BUN 31 and creatinine 1.02. Blood sugars have been running 185 up to 405 at its 4 PM yesterday. Patient missed her morning dose of Levemir yesterday. Patient underwent gastric emptying study which was negative for gastroparesis. Patient is continued on IV Lasix at 40 mg every 12 hours. 10/08: Patient is afebrile, heart rate 75, blood pressure 146/57, pulse ox 92% on 3 L nasal cannula. Repeat blood work reveals sodium 138, potassium 4.9, chloride 96, CO2 37, BUN 38 creatinine 1.13. Blood sugars have been running b etween 211 and 307. Hemoglobin A1c from July is 5.2. Patient has increased dyspnea today along with a dry cough. She complains of shortness of breath with minimal activity, positive orthopnea. Patient was having issues with constipation and last evening and Senokot was added and she states she has had lots of bowel movements. Cardiology increase Lasix every 8 hours. Also Solu- Medrol added. 10/09: Pulse ox is 94% on 3 L nasal cannula. Patient has been afebrile, heart rate 86, blood pressure 134/63. Patient continues to have shortness of breath and nonproductive cough. She is wheezing. Positive shortness of breath with minimal activity. CTA of the chest has been ordered to rule out PE. Blood sugar at 2130 was 604 and also high yesterday afternoon, patient received additional N ovoLog on top of scale. Levemir 42 units subcu ordered this morning versus her normal dose of 30. Scheduled NovoLog will be increased to 6 units with meals. Solu-Medrol will be decreased to every 12 hours Repeat blood work reveals sodium 131, potassium 5.9, chloride 89, CO2 38, BUN 41 and creatinine 1.15. 10/10: CTA of the chest was suboptimal study without central pulmonary embolism. Cardiomegaly with mild interstitial and alveolar edema raises concern for heart failure exacerbation. No focal consolidation. She is currently on Lasix 40 mg IV 3 times daily. She continues to have shortness of breath, dyspnea with exertion and lower extremity edema. Lasix will be decreased tomorrow to 60 mg oral twice daily. Blood sugars continue to be in the 400s and 500s. She has received additional NovoLog plus scale. Levemir will be increased to 45 units twice daily and scheduled NovoLog increased to 12 units with meals and at at bedtime. Solu-Medrol was discontinued and patient to start prednisone tomorrow. Pulse ox is 95% on 3 L nasal cannula. She's been afebrile, heart rate 60, blo od pressure 131/54. Repeat blood work reveals WBC 15.8, hemoglobin 7.5, platelet count 388. Sodium was 129, potassium 6.1 and one dose of Kayexalate 30 mg ordered, oral prednisone scheduled was discontinued and Aldactone decreased to 12.5 mg daily. Chloride 84, CO2 39, BUN 57 and creatinine 1.41. 10/11 and patient examined bedside. Continue have shortness of breath on exertion. For some mild is continued at 40 IV every 8 hours per cardiology. On evaluation as patient's blood work today potassium is improved to 5.1 chloride is 85 bicarb 42 BUN 64 creatinine 1.34 glucose remains high at 444. Lantus increased to 50 twice a day today and NovoLog increased to 15 units with meals continue and follow with sliding scale. Solu-Medrol switched to prednisone 40 mg daily the patient labs tomorrow 10/12 patient examined at bedside. As shortness of breath on exertion and fatigue. Vitals checked in the room such as patient's systolic over 80s. Vitals as checked at 1 PM suggest blood pressure 125/71 with oxygen saturation of 96% on 8 L (55 years. 16 hold patient's blood pressure medication and Lasix today as patient's blood pressure is on the lower side. ABG to be obtained with a pH of 7.34 pCO2 of 81 pO2 59 and bicarb 43 appears to be secondary to metabolic alkalosis secondary to overdiuresis.. Patient to be placed on BiPAP for COPD exacerbation. Hold Lasix and metolazone. Continue Levemir at the current dose of 50 subcu twice a day with insulin aspart 15 subcu before meals and at bedtime. 10/13: Seen today in follow-up. Her hemoglobin is 7.4 and one dose of Ferrlecit IV will be ordered. Lasix will be resumed today at 60 mg oral. Patient utilizes BiPAP last night. She has gotten encouraged to use this during the day as well. 10/14: Patient noted to have a hacking barking cough. She states it started around 1:00 this morning and has been up all night coughing. She denies having any fever or chills. She denies any nausea or vomiting. A rapid Covid test was ordered which surprisingly came back positive. She has been afebrile, heart rate 91, blood pressure 148/63, pulse ox 94% on 2 L nasal cannula. WBC 9.1, hemoglobin 7.6, platelet count 297. D-dimer 0.83, LDH 669. C-reactive protein 1.6. Sodium 133, potassium 4.6, chloride 90, CO2 34, BUN 49 and creatinine 1.31. She is followed by pulmonary medicine. 10/15: Patient has not been able to sleep since 2 AM. She's experienced increased dyspnea. We have documented a 93% pulse ox on 2 L nasal cannula but this does not reflect patient's condition at the time. Patient had increasing dyspnea along with feeling tired and weak. Patient was transitioned to BiPAP and continues to have dyspnea. She has been utilizing BiPAP at nighttime and somewhat during the day for high CO2 has been improving Patient noted to have wheezing and will be placed back on Solu-Medrol 60 mg IV every 6 hours. We are also increasing Levemir and scheduled NovoLog to cover for hyperglycemia. She will be transferred to the cardiac stepdown unit and pulmonary medicine to be notified of patient's condition. Patient has been afebrile, heart rate 93, blood pressure 113/63, pulse ox 97% on 30% BiPAP. Repeat inflammatory markers ordered for tomorrow. 10/16 patient examined bedside continues to complain of fatigue, headache, body aches, sores in the mouth. Vitals obtained suggested temp of 97.6 pulse 87 respiratory rate 20 blood pressure 140/62 oxygen saturation 94% on 3 L. Headache not resolve with Tylenol. We will add morphine 2 mg IV every 6 hours. Nystatin added to help with oral thrush. PTOT consulted for generalized weakness and debility. No labs to evaluate. Repeat labs tomorrow 10/17 patient examined bedside complains of substernal chest pain on coughing which is improved with breathing treatment. EKG obtained showed normal sinus rhythm with supraventricular complexes. No change compared to previous EKG. Troponin 2 ordered. Tessalon Perles added for cough. Patient is on Mucinex and guaifenesin codeine syrup for cough. Patient does sound congested and will switch patient's inhaler from Flovent to Symbicort. Vitals reviewed patient is afebrile pulse of 111 respiratory rate 20 blood pressure 119/60, oxygen saturation 94% on 3 L. No morning labs to review. Patient's blood sugar continues to be elevated. We will increase patient's Lantus to 70 units twice a day with mealtime insulin. Neck supple Medrol reduced to 40 every 8. No plan for him to have severe or Tocilizumab per pulmonary. Repeat labs ordered chest x-ray ordered. Patient likely discharge on Tuesday for possible oxygen needs and would need to be discharged home on oxygen. 10/18: Patient was examined at the bedside she is found sitting up in the chair currently on 3 L of O2 via nasal cannula. Patient states that she is breathing much better. She is utilizing a BiPAP machine at night for sleeping. She does have a BiPAP and CPAP machine at home. Patient states that the CPAP machine is not on enough to help with her shortness of breath at night. Patient remains afebrile heart rate 74, respirations 22, blood pressure 155/72, O2 saturation is 91% on 3 L of nasal O2 which is baseline for the patient. We will repeat CBC in the morning. 10/19: Patient was examined at the bedside she is found sitting up in a chair. Patient is currently on 3 L of O2 via nasal cannula pulse ox 94% which is normal for the patient. Patient did have a difficult night last night with increased shortness of breath she was unable to to sleep. She did spend the majority of the night sitting up in the chair. Patient is concerned about her cough and how fatigued she has after coughing. Patient has increased anxiety due to her diagnosis of COVID-19. A lengthy discussion was had regarding the oxygen needs and her long disease related to COVID-19. Questions were answered. It was discussed in length with patient to possibly go to subacute rehab facility. Patient remains afebrile, heart rate 77, respirations 21 and nonlabored with a cough. Pressure 137/75. REVIEW OF SYSTEMS Constitutional: No fever, no chills, no night sweats. No weight change. Reports sitting weakness and fatigue. No daytime sleepiness. Reports headache EENT: No headache. No blurred vision or double vision, no loss of vision. No loss of Hearing, no ringing in the ears, no dizziness. No nasal drainage or congestion. No epistaxis. No sore throat. Reports bumps in the mouth Lungs: Reports shortness of breath, reports cough, no sputum production. Reports wheezing. Reports dyspnea with exertion. Cardiovascular: No chest pain, no lower extremity edema. No palpitations. No paroxysmal nocturnal dyspnea. No orthopnea. No lightheadedness or dizziness. No syncopal episodes. Abdominal: No upper abdominal pain. No nausea, vomiting. no diarrhea. Reports constipation. No bloody reports tarry stools. Denies bright red bleeding. no loss of appetite. Genitourinary: No dysuria, increased frequency, urgency. No urinary retention. Musculoskeletal: No myalgias. No muscle weakness, no gait dysfunction, no frequent falls. No back pain. No neck pain. Reports body aches Integumentary: No wounds, no lesions. No rash or pruritus. No unusual bruising. No change in hair or nails. Neurologic: No aphasia. No facial droop. No change in mentation. No head injury. No headache. No paralysis. No paresthesia. Psychiatric: No depression. No anxiety. Endocrine: Reported reports abnormal blood sugars. No weight change. PHYSICAL EXAMINATION Gen: This is a 65-year-old female. She is resting and recliner and appears to be comfortable at rest. HEENT: Head is atraumatic, normocephalic. Pupils equal, round. Sclerae is anicteric. Conjunctiva pale. NECK: Supple. No JVD. No lymphadenopathy. No thyromegaly. LUNGS: Wheezing resolved, improved air entry bilaterally. Crackles noted bilaterally No intercostal retractions. HEART: Regular rate and rhythm. Systolic murmur. ABDOMEN: Soft. Bowel sounds are present. No masses. No tenderness. EXTREMITIES: No pedal edema. No calf tenderness. Dorsalis pedis +2 bilaterally. NEUROLOGICAL: Patient is awake, alert and oriented x3. Cranial nerves 2 through 12 are grossly intact. Assessment/plan: 1. Chronic hypoxic respiratory failure with progressive dyspnea secondary to COPD and acute on chronic diastolic heart failure as well as Covid 19 pneumonia, POA. Continue Lasix at 60 mg oral daily, metolazone 2.5 mg on Tuesday on hold . Aldactone 12.5 mg daily resumed on 10/17, discontinue prednisone and r Solu-Medrol 40 mg IV every 8 hours. CTA of the chest ruled out pulmonary embolism. Flovent switch to Symbicort 2. Upper abdominal/lower chest pain with abdominal bloating and early satiety, ruled out gastroparesis. Most likely secondary to constipation and fecal burden. Continue Senokot 2 daily at 1800. 3. 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 Continue Protonix 40 mg oral twice daily. Status post Ferrlecit infusion 1. 4. Diabetes mellitus type 2 with diabetic neuropathy uncontrolled with hyperglycemia secondary to steroids. Continue Levemir increased to 70 units twice daily, scheduled NovoLog increased to 25 units before meals and at bedtime, continue NovoLog scale before meals and at bedtime. Continue Januvia 100 mg daily. Hemoglobin A1c in July was 5.2. 5. Diabetic neuropathy. Continue Lyrica 200 milligrams twice daily. 6. COPD without exacerbation. Continue DuoNeb treatment 4 times daily as needed, Pulmicort 1 mg twice daily, Singulair 10 mg at bedtime. 7. Hypertension. Continue Lasix, Lopressor 100 mg twice daily. 8. Hyperlipidemia. Continue Lipitor 40 mg daily. 9. Obstructive sleep apnea. Continue BiPAP at night. 10. Hypothyroidism. Continue levothyroxine 125 g daily. Restless leg syndrome. Continue Requip 2 mg twice daily. 11. Recurrent depression. Continue Prozac 20 mg daily. 12. Oral thrush. Diflucan 100 mg daily. Nystatin added for one week 13. Acute kidney injury. Metolazone held, continue Lasix at 60 mg daily Aldactone resumed at 12.5 daily 14. Hyperkalemia, resolved status post Kayexalate 1. 15. Metabolic alkalosis secondary to overdiuresis. Diamox discontinued, continue BiPAP. 16. COVID-19. Detected positive. Continue with respiratory support. 17. GI prophylaxis. Protonix twice daily. 18. DVT prophylaxis. Heparin subcu every 12 hours. DISCHARGE PLAN Home, possibly Tuesday to subacute rehab. Consult for OT/PT and social work Impression and plan of care have been directed as dictated by the signing physician. Brandy Villatoro nurse practitioner acting as scribe for signing physician. Objective - Vital Signs Vital signs: Vital Signs Temp 98.4 F 10/19/20 08:16 Pulse 77 10/19/20 08:16 Resp 21 10/19/20 08:16 BP 137/75 10/19/20 08:16 Pulse Ox 95 10/19/20 09:23 Intake & Output 10/18/20 10/19/20 10/19/20 18:59 06:59 18:59 Intake Total 960 240 Balance 960 240 Weight 112.3 kg Intake: Oral 960 240 Other: Voiding Method Toilet Toilet Toilet - Labs CBC & Chem 7: 10/19/20 05:31 10/18/20 06:15 Labs: Abnormal Lab Results - Last 24 Hours (Table) 10/18/20 10/18/20 10/18/20 Range/Units 11:44 11:49 16:48 WBC (4.50-10.00) X 10*3/uL RBC (4.10-5.20) X 10*6/uL Hgb (12.0-15.0) g/dL Hct (37.2-46.3) % MCH (27.0-32.0) pg MCHC (32.0-37.0) g/dL RDW (11.5-14.5) % Absolute Nucleated RBC (0.00-0.00) X 10*3/uL Immature Gran # (0.00-0.04) X 10*3/uL Neutrophils # (1.80-7.70) X 10*3/uL Lymphocytes # (0.90-5.00) X 10*3/uL Eosinophils # (0.04-0.35) X 10*3/uL NRBC/100 WBC Diff (0.0-0.0) /100 WBCS D-Dimer (<0.60) mg/L FEU POC Glucose (mg/dL) 336 H 471 H 418 H (75-99) mg/dL 10/18/20 10/19/20 10/19/20 Range/Units 20:13 05:31 05:31 WBC 14.46 H (4.50-10.00) X 10*3/uL RBC 3.69 L (4.10-5.20) X 10*6/uL Hgb 7.9 L (12.0-15.0) g/dL Hct 29.7 L (37.2-46.3) % MCH 21.4 L (27.0-32.0) pg MCHC 26.6 L (32.0-37.0) g/dL RDW 21.5 H (11.5-14.5) % Absolute Nucleated RBC 0.05 H (0.00-0.00) X 10*3/uL Immature Gran # 0.33 H (0.00-0.04) X 10*3/uL Neutrophils # 12.97 H (1.80-7.70) X 10*3/uL Lymphocytes # 0.46 L (0.90-5.00) X 10*3/uL Eosinophils # 0 L (0.04-0.35) X 10*3/uL NRBC/100 WBC Diff 0.3 H (0.0-0.0) /100 WBCS D-Dimer 0.76 H (<0.60) mg/L FEU POC Glucose (mg/dL) 375 H (75-99) mg/dL 10/19/20 Range/Units 07:34 WBC (4.50-10.00) X 10*3/uL RBC (4.10-5.20) X 10*6/uL Hgb (12.0-15.0) g/dL Hct (37.2-46.3) % MCH (27.0-32.0) pg MCHC (32.0-37.0) g/dL RDW (11.5-14.5) % Absolute Nucleated RBC (0.00-0.00) X 10*3/uL Immature Gran # (0.00-0.04) X 10*3/uL Neutrophils # (1.80-7.70) X 10*3/uL Lymphocytes # (0.90-5.00) X 10*3/uL Eosinophils # (0.04-0.35) X 10*3/uL NRBC/100 WBC Diff (0.0-0.0) /100 WBCS D-Dimer (<0.60) mg/L FEU POC Glucose (mg/dL) 197 H (75-99) mg/dL
[2020-10-19 11:28] LABS: Albumin/Globulin Ratio 1.54 (1.60-3.17); Anion Gap 7.6 mmol/L (4.00-12.00); C Reactive Protein 1.1 mg/dL (0.0-0.8); Carbon Dioxide 31.4 mmol/L (21.6-31.8); Globulin 2.6 g/dL (1.6-3.3); Non-African American GFR(CKD) 58.7 (60.0-200.0); Total Bilirubin 0.4 mg/dL (0.3-1.2); Total Protein 6.6 g/dL (6.2-8.2)
[2020-10-19 11:45] LABS: Glucose,Whole Blood 298 mg/dL (75-99)
[2020-10-19] MEDS: BENZOCAINE/MENTHOL LOZENG 1 EACH LOZENGE MUCOUS MEM PRN (13:04)
[2020-10-19 17:09] LABS: Glucose,Whole Blood 268 mg/dL (75-99)
[2020-10-19] MEDS: SENNOSIDES-DOCUSATE SODIUM 1 EACH TAB PO SCH (18:07)
[2020-10-19 20:02] LABS: Glucose,Whole Blood 371 mg/dL (75-99)
[2020-10-19] MEDS: MONTELUKAST 10 MG TAB PO SCH (22:44)
[2020-10-19] MEDS: ALPRAZolam 0.25 MG TAB PO PRN (22:46)
[2020-10-20] MEDS: methylPREDNISolone SOD SUCCI 40 MG/ML 1 ML VIAL IV SCH ×3 (00:35→16:27)
[2020-10-20] MEDS: BENZOCAINE/MENTHOL LOZENG 1 EACH LOZENGE MUCOUS MEM PRN ×2 (05:20→22:13)
[2020-10-20] MEDS: Acetaminophen-Codeine 300-30mg TAB PO PRN ×2 (05:20→14:21)
[2020-10-20] MEDS: LEVOTHYROXINE 125 MCG TAB PO SCH (05:37)
--- NOTE | 2020-10-20 07:07 | XR ---
EXAMINATION TYPE: XR chest 1V portable DATE OF EXAM: 10/20/2020 HISTORY: Shortness of breath. COMPARISON: 10/18/2020 TECHNIQUE: Single view of the chest is submitted. FINDINGS: Coarse interstitial and scattered airspace infiltrates persist without significant change. The heart is stable. Hilar and mediastinal structures are within normal limits. Degenerative changes are seen of the dorsal spine. IMPRESSION: 1. Coarse interstitial and scattered airspace infiltrates persist without significant change.
[2020-10-20 07:24] LABS: Glucose,Whole Blood 92 mg/dL (75-99)
[2020-10-20] MEDS: INSULIN ASPART (NovoLOG) 100 UNIT/ML VIAL SQ SCH ×8 (07:32→21:20)
[2020-10-20] MEDS: INSULIN DETEMIR (LEVEMIR) 100 UNIT/ML SYR SQ SCH ×2 (08:09→21:21)
[2020-10-20] MEDS: ZINC SULFATE 220 MG CAP PO SCH (08:09)
[2020-10-20] MEDS: PREGABALIN 100 MG CAP PO SCH ×2 (08:10→21:19)
[2020-10-20] MEDS: CHOLECALCIFEROL 25 MCG (1000 IU) TABLET PO SCH (08:10)
[2020-10-20] MEDS: PANTOPRAZOLE 40 MG TABLET PO SCH ×2 (08:11→17:51)
[2020-10-20] MEDS: ENOXAPARIN 40 MG/0.4 ML SYRINGE SQ SCH (08:11)
[2020-10-20] MEDS: guaiFENesin 600 MG TABLET.ER PO SCH ×2 (08:11→21:19)
[2020-10-20] MEDS: ASCORBIC ACID 500 MG TAB PO SCH (08:11)
[2020-10-20] MEDS: LINAGLIPTIN 5 MG TABLET PO SCH (08:12)
[2020-10-20] MEDS: FLUoxetine HCL 20 MG CAP PO SCH (08:12)
[2020-10-20] MEDS: FLUCONAZOLE 100 MG TAB PO SCH (08:12)
[2020-10-20] MEDS: FUROSEMIDE 20 MG TAB PO SCH ×2 (08:12→16:28)
[2020-10-20] MEDS: NYSTATIN 100,000 UNIT/ML SUSP 500,000 UNIT/5 ML CUP PO SCH ×4 (08:12→22:13)
[2020-10-20] MEDS: BENZONATATE 100 MG CAP PO SCH ×3 (08:14→21:19)
[2020-10-20 09:19] LABS: African American GFR (CKD) 54.5 (60.0-200.0); Albumin 4.3 g/dL (3.80-4.90); Albumin/Globulin Ratio 1.54 (1.60-3.17); Anion Gap 7.6 mmol/L (4.00-12.00); BUN/Creat Ratio 40.83 Ratio (12.00-20.00); Carbon Dioxide 35.4 mmol/L (21.6-31.8); Globulin 2.8 g/dL (1.6-3.3); Non-African American GFR(CKD) 47.1 (60.0-200.0); Potassium 4.2 mmol/L (3.5-5.5); Total Bilirubin 0.4 mg/dL (0.3-1.2); Total Protein 7.1 g/dL (6.2-8.2)
[2020-10-20] MEDS: SYMBICORT 160-4.5 MCG INHALER INHALATION SCH ×2 (09:20→21:06)
[2020-10-20] MEDS: ALBUTEROL HFA INHALER INHALATION SCH ×4 (09:20→21:06)
[2020-10-20] MEDS: TIOTROPIUM 2.5 MCG INHALER INHALATION SCH (09:20)
[2020-10-20] MEDS: DOXYCYCLINE 100 MG CAP PO SCH ×2 (10:45→21:21)
[2020-10-20] MEDS: ALPRAZolam 0.25 MG TAB PO PRN (10:48)
[2020-10-20 12:06] LABS: Glucose,Whole Blood 324 mg/dL (75-99)
--- NOTE | 2020-10-20 13:32 | P.PN ---
Subjective Progress Note Date: 10/20/20 Subjective Progress Note Date: 10/19/20 This is a 65-year-old female patient of Dr. Deras with past medical history significant for heart failure, COPD, chronic hypoxic respiratory failure on home O2 at 2 L nasal cannula and obstructive sleep apnea on BiPAP support at bedtime, diabetes mellitus type 2 with diabetic neuropathy, chronic diastolic heart failure, valvular heart disease, hypertension, hypothyroidism, GI bleed with anemia. Patient has had multiple admissions and multiple endoscopies for GIB and anemia. 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 The bleeding seems to be stable since that time. They, patient presented to the hospital due to chest pain in the midsternal area across her chest seems to be worse after she eats it was hurting after she had breakfast this morning. She complains of shortness of breath with exertion that is worse than the last time she was admitted. She states her stools have been normal. She does complain of abdominal distention and fullness after eating. Patient presented to the [facility] emergency center for evaluation. Patient was found to be afebrile, heart rate 71, blood pressure 140/61, pulse ox 100% on oxygen. WBC 14.8, hemoglobin 8.2 which is stable for this patient. Platelet count is 310. Sodium 138, potassium 4.2, chloride 97, CO2 35, BUN 39 and creatinine 1.34 which is also patient's baseline. Blood sugar 207. D-dimer 0.89. Alkaline phosphatase 160. Troponin negative. Pro- BNP 2570. Lactic acid 1.0. Coronavirus PCR not detected. EKG sinus rhythm with nonspecific ST-T wave changes. Chest x-ray reveals vascular and interstitial markings prominent in the mid to lower lungs bilaterally similar to previous. Consider heart failure versus interstitial infiltrate. CAT scan of the abdomen and pelvis without contrast revealed hepatomegaly and 19.6 cm. Correlate with LFTs and risk factors for underlying hepatocellular disease. 1.3 cm right common iliac chain lymph node is enlarged. Left inguinal femoral chain lymph nodes are borderline enlarged. Findings probably reactive postinflammatory. 1.1 cm indeterminate right adrenal nodule. Moderate stool burden and generalized colonic diverticulosis. Tiny hiatal hernia. Consult was admitted for cardiology and patient has been seen by Dr. Yang for progressive dyspnea secondary to combination of COPD and element of heart failure with preserved systolic function. Plan to continue IV diuretics for 24 hours. 10/07: She has been afebrile, heart rate 86, blood pressure 101/46, pulse ox 90% on 4 L nasal cannula. WBC 11, hemoglobin 7.9, platelet count 319. Sodium 138, potassium 4.3, chloride 95, CO2 37, BUN 31 and creatinine 1.02. Blood sugars polk ve been running 185 up to 405 at its 4 PM yesterday. Patient missed her morning dose of Levemir yesterday. Patient underwent gastric emptying study which was negative for gastroparesis. Patient is continued on IV Lasix at 40 mg every 12 hours. 10/08: Patient is afebrile, heart rate 75, blood pressure 146/57, pulse ox 92% on 3 L nasal cannula. Repeat blood work reveals sodium 138, potassium 4.9, chloride 96, CO2 37, BUN 38 creatinine 1.13. Blood sugars have been running between 211 and 307. Hemoglobin A1c from July is 5.2. Patient has increased dyspnea today along with a dry cough. She complains of shortness of breath with minimal activity, positive orthopnea. Patient was having issues with constipation and last evening and Senokot was added and she states she has had lots of bowel movements. Cardiology increase Lasix every 8 hours. Also Solu-Medrol added. 10/09: Pulse ox is 94% on 3 L nasal cannula. Patient has been afebrile, heart rate 86, blood pressure 134/63. Patient continues to have shortness of breath and nonproductive cough. She is wheezing. Positive shortness of breath with minimal activity. CTA of the chest has been ordered to rule out PE. Blood sugar at 2130 was 604 and also high yesterday afternoon, patient received additional NovoLog on top of scale. Levemir 42 units subcu ordered this morning versus her normal dose of 30. Scheduled NovoLog will be increased to 6 units with meals. Solu-Medrol will be decreased to every 12 hours Repeat blood work reveals sodium 131, potassium 5.9, chloride 89, CO2 38, BUN 41 and creatinine 1.15. 10/10: CTA of the chest was suboptimal study without central pulmonary embolism. Cardiomegaly with mild interstitial and alveolar edema raises concern for heart failure exacerbation. No focal consolidation. She is currently on Lasix 40 mg IV 3 times daily. She continues to have shortness of breath, dyspnea with exertion and lower extremity edema. Lasix will be decreased tomorrow to 60 mg oral twice daily. Blood sugars continue to be in the 400s and 500s. She has received additional NovoLog plus scale. Levemir will be increased to 45 units twice daily and scheduled NovoLog increased to 12 units with meals and at at bedtime. Solu-Medrol was discontinued and patient to start prednisone tomorrow. Pulse ox is 95% on 3 L nasal cannula. She's been afebrile, heart rate 60, blood pressure 131/54. Repeat blood work reveals WBC 15.8, hemoglobin 7.5, platelet count 388. Sodium was 129, potassium 6.1 and one dose of Kayexalate 30 mg ordered, oral prednisone scheduled was discontinued and Aldactone decreased to 12.5 mg daily. Chloride 84, CO2 39, BUN 57 and creatinine 1.41. 10/11 and patient examined bedside. Continue have shortness of breath on exertion. For some mild is continued at 40 IV every 8 hours per cardiology. On evaluation as patient's blood work today potassium is improved to 5.1 chloride is 85 bicarb 42 BUN 64 creatinine 1.34 glucose remains high at 444. Lantus increased to 50 twice a day today and NovoLog increased to 15 units with meals continue and follow with sliding scale. Solu-Medrol switched to prednisone 40 mg daily the patient labs tomorrow 10/12 patient examined at bedside. As shortness of breath on exertion and fatigue. Vitals checked in the room such as patient's systolic over 80s. Vitals as checked at 1 PM suggest blood pressure 125/71 with oxygen saturation of 96% on 8 L (55 years. 16 hold patient's blood pressure medication and Lasix today as patient's blood pressure is on the lower side. ABG to be obtained with a pH of 7.34 pCO2 of 81 pO2 59 and bicarb 43 appears to be secondary to metabolic alkalosis secondary to overdiuresis.. Patient to be placed on BiPAP for COPD exacerbation. Hold Lasix and metolazone. Continue Levemir at the current dose of 50 subcu twice a day with insulin aspart 15 subcu before meals and at bedtime. 10/13: Seen today in follow-up. Her hemoglobin is 7.4 and one dose of Ferrlecit IV will be ordered. Lasix will be resumed today at 60 mg oral. Patient utilizes BiPAP last night. She has gotten encouraged to use this during the day as well. 10/14: Patient noted to have a hacking barking cough. She states it started around 1:00 this morning and has been up all night coughing. She denies having any fever or chills. She denies any nausea or vomiting. A rapid Covid test was ordered which surprisingly came back positive. She has been afebrile, heart rate 91, blood pressure 148/63, pulse ox 94% on 2 L nasal cannula. WBC 9.1, hemoglobin 7.6, platelet count 297. D-dimer 0.83, LDH 669. C-reactive protein 1.6. Sodium 133, potassium 4.6, chloride 90, CO2 34, BUN 49 and creatinine 1.31. She is followed by pulmonary medicine. 10/15: Patient has not been able to sleep since 2 AM. She's experienced increased dyspnea. We have documented a 93% pulse ox on 2 L nasal cannula but this does not reflect patient's condition at the time. Patient had increasing dyspnea along with feeling tired and weak. Patient was transitioned to BiPAP and continues to have dyspnea. She has been utilizing BiPAP at nighttime and somewhat during the day for high CO2 has been improving Patient noted to have w heezing and will be placed back on Solu-Medrol 60 mg IV every 6 hours. We are also increasing Levemir and scheduled NovoLog to cover for hyperglycemia. She will be transferred to the cardiac stepdown unit and pulmonary medicine to be notified of patient's condition. Patient has been afebrile, heart rate 93, blood pressure 113/63, pulse ox 97% on 30% BiPAP. Repeat inflammatory markers ordered for tomorrow. 10/16 patient examined bedside continues to complain of fatigue, headache, body aches, sores in the mouth. Vitals obtained suggested temp of 97.6 pulse 87 respiratory rate 20 blood pressure 140/62 oxygen saturation 94% on 3 L. Headache not resolve with Tylenol. We will add morphine 2 mg IV every 6 hours. Nystatin added to help with oral thrush. PTOT consulted for generalized weak ness and debility. No labs to evaluate. Repeat labs tomorrow 10/17 patient examined bedside complains of substernal chest pain on coughing which is improved with breathing treatment. EKG obtained showed normal sinus rhythm with supraventricular complexes. No change compared to previous EKG. Troponin 2 ordered. Tessalon Perles added for cough. Patient is on Mucinex and guaifenesin codeine syrup for cough. Patient does sound congested and will switch patient's inhaler from Flovent to Symbicort. Vitals reviewed patient is afebrile pulse of 111 respiratory rate 20 blood pressure 119/60, oxygen saturation 94% on 3 L. No morning labs to review. Patient's blood sugar continues to be elevated. We will increase patient's Lantus to 70 units twice a day with mealtime insulin. Neck supple Medrol reduced to 40 every 8. No plan for him to have severe or Tocilizumab per pulmonary. Repeat labs ordered chest x-ray ordered. Patient likely discharge on Tuesday for possible oxygen needs and would need to be discharged home on oxygen. 10/18: Patient was examined at the bedside she is found sitting up in the chair currently on 3 L of O2 via nasal cannula. Patient states that she is breathing much better. She is utilizing a BiPAP machine at night for sleeping. She does have a BiPAP and CPAP machine at home. Patient states that the CPAP machine is not on enough to help with her shortness of breath at night. Patient remains afebrile heart rate 74, respirations 22, blood pressure 155/72, O2 saturation is 91% on 3 L of nasal O2 which is baseline for the patient. We will repeat CBC in the morning. 10/19: Patient was examined at the bedside she is found sitting up in a chair. P atient is currently on 3 L of O2 via nasal cannula pulse ox 94% which is normal for the patient. Patient did have a difficult night last night with increased shortness of breath she was unable to to sleep. She did spend the majority of the night sitting up in the chair. Patient is concerned about her cough and how fatigued she has after coughing. Patient has increased anxiety due to her diagnosis of COVID-19. A lengthy discussion was had regarding the oxygen needs and her long disease related to COVID-19. Questions were answered. It was discussed in length with patient to possibly go to subacute rehab facility. Patient remains afebrile, heart rate 77, respirations 21 and nonlabored with a cough. Pressure 137/75. 10/20: Patient continued to have significant hypoxia, persistent cough, worsening symptoms require multi hours on the BiPAP on daily basis. The patient about subacute rehab consult social welfare research worker patient will be started PTOT if her clinical component is better by Tuesday hopefully be able to send patient to intermediate rehab otherwise continue current management and still be aggressive with her COPD and anemia. REVIEW OF SYSTEMS Constitutional: No fever, no chills, no night sweats. No weight change. Reports sitting weakness and fatigue. No daytime sleepiness. Reports headache EENT: No headache. No blurred vision or double vision, no loss of vision. No loss of Hearing, no ringing in the ears, no dizziness. No nasal drainage or congestion. No epistaxis. No sore throat. Reports bumps in the mouth Lungs: Reports shortness of breath, reports cough, no sputum production. Reports wheezing. Reports dyspnea with exertion. Cardiovascular: No chest pain, no lower extremity edema. No palpitations. No paroxysmal nocturnal dyspnea. No orthopnea. No lightheadedness or dizziness. No syncopal episodes. Abdominal: No upper abdominal pain. No nausea, vomiting. no diarrhea. Reports constipation. No bloody reports tarry stools. Denies bright red bleeding. no loss of appetite. Genitourinary: No dysuria, increased frequency, urgency. No urinary retention. Musculoskeletal: No myalgias. No muscle weakness, no gait dysfunction, no frequent falls. No back pain. No neck pain. Reports body aches Integumentary: No wounds, no lesions. No rash or pruritus. No unusual bruising. No change in hair or nails. Neurologic: No aphasia. No facial droop. No change in mentation. No head injury. No headache. No paralysis. No paresthesia. Psychiatric: No depression. No anxiety. Endocrine: Reported reports abnormal blood sugars. No weight change. PHYSICAL EXAMINATION Gen: This is a 65-year-old female. She is resting and recliner and appears to be comfortable at rest. HEENT: Head is atraumatic, normocephalic. Pupils equal, round. Sclerae is anicteric. Conjunctiva pale. NECK: Supple. No JVD. No lymphadenopathy. No thyromegaly. LUNGS: Wheezing resolved, improved air entry bilaterally. Crackles noted bilaterally No intercostal retractions. HEART: Regular rate and rhythm. Systolic murmur. ABDOMEN: Soft. Bowel sounds are present. No masses. No tenderness. EXTREMITIES: No pedal edema. No calf tenderness. Dorsalis pedis +2 bilaterally. NEUROLOGICAL: Patient is awake, alert and oriented x3. Cranial nerves 2 through 12 are grossly intact. Assessment/plan: 1. Chronic hypoxic respiratory failure with progressive dyspnea secondary to COPD and acute on chronic diastolic heart failure as well as Covid 19 pneumonia, POA. Continue Lasix at 60 mg oral daily, metolazone 2.5 mg on Tuesday on hold . Aldactone 12.5 mg daily resumed on 10/17, discontinue prednisone and r Solu-Medrol 40 mg IV every 8 hours. CTA of the chest ruled out pulmonary embolism. Flovent switch to Symbicort. Patient respiratory failure was not much better so far continue aggressive management with her COPD along with possible worsening bronchitis, patient remain on Solu-Medrol 40 mg every 8 hours we'll add doxycycline 100 mg twice a day continue her updraft around the clock continue BiPAP for at least 8 hours a day. 2. Upper abdominal/lower chest pain with abdominal bloating and early satiety, ruled out gastroparesis. Most likely secondary to constipation and fecal burden. Continue Senokot 2 daily at 1800. 3. 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 Continue Protonix 40 mg oral twice daily. Status post Ferrlecit infusion 1. 4. Diabetes mellitus type 2 with diabetic neuropathy uncontrolled with hyperglycemia secondary to steroids. Continue Levemir increased to 70 units twice daily, scheduled NovoLog increased to 25 units before meals and at bedtime, continue NovoLog scale before meals and at bedtime. Continue Januvia 100 mg daily. Hemoglobin A1c in July was 5.2. 5. Debility and worsening condition: The patient advance COPD and recurrent GI bleed along with COVID-19 patient is not doing well physically will continue PTOT and might require subacute rehab for at least 2 weeks. 6. COPD without exacerbation. Continue DuoNeb treatment 4 times daily as needed, Pulmicort 1 mg twice daily, Singulair 10 mg at bedtime. 7. Hypertension. Continue Lasix, Lopressor 100 mg twice daily. 8. Hyperlipidemia. Continue Lipitor 40 mg daily. 9. Obstructive sleep apnea. Continue BiPAP at night. 10. Hypothyroidism. Continue levothyroxine 125 g daily. Restless leg syndrome. Continue Requip 2 mg twice daily. 11. Recurrent depression. Continue Prozac 20 mg daily. 12. Oral thrush. Diflucan 100 mg daily. Nystatin added for one week 13. Acute kidney injury. Metolazone held, continue Lasix at 60 mg daily Aldactone resumed at 12.5 daily 14. Hyperkalemia, resolved status post Kayexalate 1. 15. Metabolic alkalosis secondary to overdiuresis. Diamox discontinued, continue BiPAP. 16. COVID-19. Detected positive. Continue with respiratory support. 17. GI prophylaxis. Protonix twice daily. 18. DVT prophylaxis. Heparin subcu every 12 hours. Prognosis: Still poor at this point. Objective - Vital Signs Vital signs: Vital Signs Temp 98.3 F 10/20/20 02:00 Pulse 98 10/20/20 02:00 Resp 22 10/20/20 02:00 BP 135/98 10/20/20 02:00 Pulse Ox 82 L 10/20/20 02:00 Intake & Output 10/19/20 10/19/20 10/20/20 06:59 18:59 06:59 Intake Total 720 Balance 720 Weight 112.3 kg 110.9 kg Intake: Oral 720 Other: Voiding Method Toilet Toilet Toilet - Labs CBC & Chem 7: 10/19/20 05:31 10/20/20 05:28 Labs: Abnormal Lab Results - Last 24 Hours (Table) 10/19/20 10/19/20 10/19/20 Range/Units 05:31 05:31 07:34 WBC 14.46 H (4.50-10.00) X 10*3/uL RBC 3.69 L (4.10-5.20) X 10*6/uL Hgb 7.9 L (12.0-15.0) g/dL Hct 29.7 L (37.2-46.3) % MCH 21.4 L (27.0-32.0) pg MCHC 26.6 L (32.0-37.0) g/dL RDW 21.5 H (11.5-14.5) % Absolute Nucleated RBC 0.05 H (0.00-0.00) X 10*3/uL Immature Gran # 0.33 H (0.00-0.04) X 10*3/uL Neutrophils # 12.97 H (1.80-7.70) X 10*3/uL Lymphocytes # 0.46 L (0.90-5.00) X 10*3/uL Eosinophils # 0 L (0.04-0.35) X 10*3/uL NRBC/100 WBC Diff 0.3 H (0.0-0.0) /100 WBCS BUN 40.0 H (9.0-27.0) mg/dL Est GFR (CKD-EPI)NonAf 58.7 L (60.0-200.0) BUN/Creatinine Ratio 40.00 H (12.00-20.00) Ratio Glucose 218 H (70-110) mg/dL POC Glucose (mg/dL) 197 H (75-99) mg/dL Lactate Dehydrogenase 667 H (120-246) U/L C-Reactive Protein 1.1 H (0.0-0.8) mg/dL Albumin/Globulin Ratio 1.54 L (1.60-3.17) g/dL 10/19/20 10/19/20 10/19/20 Range/Units 11:40 17:06 20:00 WBC (4.50-10.00) X 10*3/uL RBC (4.10-5.20) X 10*6/uL Hgb (12.0-15.0) g/dL Hct (37.2-46.3) % MCH (27.0-32.0) pg MCHC (32.0-37.0) g/dL RDW (11.5-14.5) % Absolute Nucleated RBC (0.00-0.00) X 10*3/uL Immature Gran # (0.00-0.04) X 10*3/uL Neutrophils # (1.80-7.70) X 10*3/uL Lymphocytes # (0.90-5.00) X 10*3/uL Eosinophils # (0.04-0.35) X 10*3/uL NRBC/100 WBC Diff (0.0-0.0) /100 WBCS BUN (9.0-27.0) mg/dL Est GFR (CKD-EPI)NonAf (60.0-200.0) BUN/Creatinine Ratio (12.00-20.00) Ratio Glucose (70-110) mg/dL POC Glucose (mg/dL) 298 H 268 H 371 H (75-99) mg/dL Lactate Dehydrogenase (120-246) U/L C-Reactive Protein (0.0-0.8) mg/dL Albumin/Globulin Ratio (1.60-3.17) g/dL
--- NOTE | 2020-10-20 14:58 | P.PN ---
Subjective Progress Note Date: 10/20/20 Principal diagnosis: Shortness of breath, hypoxia On 10/18/2020 patient seen in follow-up on medical surgical floor, she is sitting up in the recliner, she is currently on BiPAP with pressures of 12/6 and FiO2 of 30%, breathing comfortably, her pulse ox is around 90%, she does wear 2- 3 L when she is not on BiPAP, and her pulse ox is 91-94%, she's been afebrile, hemodynamically she's been stable, her chest x-ray today shows progression of bilateral airspace disease compared to prior exam. She remains on current treatment with oral Lasix 60 mg daily, IV Solu-Medrol 40 mg every 8 hours, and she is on subcutaneous heparin for DVT prophylaxis. On 10/20/2020 patient seen in follow-up on medical surgical floor, she had just returned from the bathroom, where she ambulated on 5 L of oxygen, and her nasal cannula has multiple extensions, and with exertion patient becomes very short of breath, her pulse ox is 73% upon returning to the recliner from the bathroom, and patient is dyspnea, she was placed on BiPAP support with pressures of 12 and 6 and 30%. Patient does get very dyspneic and lightheaded when she desats with ambulation, and she was told to use the bedside commode. She's been afebrile, hemodynamically she's been stable, and today's chest x-ray shows coarse interstitial and scattered airspace infiltrates without significant change. Patient remains on oral Lasix 60 mg twice daily, she is on doxycycline for empiric antibiotic coverage, she is on Symbicort, albuterol, and Spiriva, she is on IV steroids, and she is on Zaroxolyn 2.5 mg on Tuesday schedule. Her weight is down by 1.5 kg in the last few days. Procalcitonin level was negative Objective - Vital Signs Vital signs: Vital Signs Temp 97.9 F 10/20/20 07:20 Pulse 85 10/20/20 07:20 Resp 24 10/20/20 07:20 BP 122/66 10/20/20 07:20 Pulse Ox 90 L 10/20/20 07:20 Intake & Output 10/19/20 10/20/20 10/20/20 18:59 06:59 18:59 Intake Total 720 240 Balance 720 240 Weight 110.9 kg Intake: Oral 720 240 Other: Voiding Method Toilet Toilet - Exam GENERAL EXAM: Alert, 65-year-old white female on BiPAP support, with pressures of 12/6 and FiO2 of 30% comfortable in no apparent distress. HEAD: Normocephalic/atraumatic. EYES: Normal reaction of pupils, equal size. Conjunctiva pink, sclera white. NOSE: Clear with pink turbinates. THROAT: No erythema or exudates. NECK: No masses, no JVD, no thyroid enlargement, no adenopathy. CHEST: No chest wall deformity. Symmetrical expansion. LUNGS: Equal air entry with diffuse crackles throughout CVS: Regular rate and rhythm, normal S1 and S2, no gallops, no murmurs, no rubs ABDOMEN: Soft, nontender. No hepatosplenomegaly, normal bowel sounds, no guarding or rigidity. EXTREMITIES: No clubbing, 1+ lower extremity edema, no cyanosis, 2+ pulses and upper and lower extremities. MUSCULOSKELETAL: Muscle strength and tone normal. SPINE: No scoliosis or deformity SKIN: No rashes CENTRAL NERVOUS SYSTEM: Alert and oriented -3. No focal deficits, tone is normal in all 4 extremities. PSYCHIATRIC: Alert and oriented -3. Appropriate affect. Intact judgment and insight. - Labs CBC & Chem 7: 10/19/20 05:31 10/20/20 05:28 Labs: Abnormal Lab Results - Last 24 Hours (Table) 10/19/20 10/19/20 10/20/20 Range/Units 17:06 20:00 05:28 Carbon Dioxide 35.4 H (21.6-31.8) mmol/L BUN 49.0 H (9.0-27.0) mg/dL Est GFR (CKD-EPI)AfAm 54.5 L (60.0-200.0) Est GFR (CKD-EPI)NonAf 47.1 L (60.0-200.0) BUN/Creatinine Ratio 40.83 H (12.00-20.00) Ratio Glucose 53 L (70-110) mg/dL POC Glucose (mg/dL) 268 H 371 H (75-99) mg/dL Alkaline Phosphatase 132 H (41-126) U/L Albumin/Globulin Ratio 1.54 L (1.60-3.17) g/dL 10/20/20 Range/Units 12:03 Carbon Dioxide (21.6-31.8) mmol/L BUN (9.0-27.0) mg/dL Est GFR (CKD-EPI)AfAm (60.0-200.0) Est GFR (CKD-EPI)NonAf (60.0-200.0) BUN/Creatinine Ratio (12.00-20.00) Ratio Glucose (70-110) mg/dL POC Glucose (mg/dL) 324 H (75-99) mg/dL Alkaline Phosphatase (41-126) U/L Albumin/Globulin Ratio (1.60-3.17) g/dL Assessment and Plan Plan: Assessment: #1. Acute hypoxic respiratory failure and dyspnea multifactorial, related to history of COPD, with acute exacerbation, diastolic CHF exacerbation and COVID- 19 pneumonitis. Patient was outside the window for Remdesivir, and she remains on IV steroids, oral diuretics, breathing treatments #2. History of COPD on home oxygen on a regular basis at 2 L #3. History of obstructive sleep apnea patient has a BiPAP unit at home which she uses on a regular basis #4. Diabetes with diabetic neuropathy, and possibility of hepatic history of paresis #5. History of GI bleeding and chronic anemia #6. Hypertension #7. Hyperlipidemia #8. Hypothyroidism #9. Depression #10. Acute kidney injury Plan: Continue oral Lasix and Zaroxolyn, Patient is maintaining negative fluid balance, her weight is coming down Continue IV steroids Continue BiPAP support at bedtime and as needed during the day Recommend monitoring the patient when she ambulates to the bathroom or providing bedside commode as the patient does desaturate with activity and becomes lightheaded Maintain safety precautions We'll continue to follow I performed a history & physical examination of the patient and discussed their management with my nurse practitioner, Rika Hartley. I reviewed the nurse practitioner's note and agree with the documented findings and plan of care. Lung sounds are positive for diffuse wheezes throughout the lung phelps. The findings and the impression was discussed with the patient. I attest to the documentation by the nurse practitioner. Time with Patient: Less than 30
[2020-10-20 17:34] LABS: Glucose,Whole Blood 177 mg/dL (75-99)
[2020-10-20] MEDS: SENNOSIDES-DOCUSATE SODIUM 1 EACH TAB PO SCH (17:51)
[2020-10-20 19:40] LABS: Glucose,Whole Blood 220 mg/dL (75-99)
[2020-10-20] MEDS: MONTELUKAST 10 MG TAB PO SCH (21:19)
[2020-10-20] MEDS: MORPHINE SULFATE 2 MG/ML SYRINGE IVP PRN (22:17)
[2020-10-21] MEDS: methylPREDNISolone SOD SUCCI 40 MG/ML 1 ML VIAL IV SCH ×2 (00:10→09:18)
[2020-10-21] MEDS: ALPRAZolam 0.25 MG TAB PO PRN ×3 (02:07→16:38)
[2020-10-21] MEDS: LEVOTHYROXINE 125 MCG TAB PO SCH (06:00)
[2020-10-21 08:18] LABS: Glucose,Whole Blood 107 mg/dL (75-99)
[2020-10-21 08:19] LABS: Glucose,Whole Blood 154 mg/dL (75-99)
[2020-10-21] MEDS: TIOTROPIUM 2.5 MCG INHALER INHALATION SCH (08:30)
[2020-10-21] MEDS: SYMBICORT 160-4.5 MCG INHALER INHALATION SCH ×2 (08:30→20:20)
[2020-10-21] MEDS: ALBUTEROL HFA INHALER INHALATION SCH ×4 (08:30→20:20)
[2020-10-21] MEDS: INSULIN ASPART (NovoLOG) 100 UNIT/ML VIAL SQ SCH ×8 (09:14→21:44)
[2020-10-21] MEDS: INSULIN DETEMIR (LEVEMIR) 100 UNIT/ML SYR SQ SCH ×2 (09:14→21:44)
[2020-10-21] MEDS: NYSTATIN 100,000 UNIT/ML SUSP 500,000 UNIT/5 ML CUP PO SCH ×4 (09:15→21:37)
[2020-10-21] MEDS: DOXYCYCLINE 100 MG CAP PO SCH ×2 (09:15→21:38)
[2020-10-21] MEDS: BENZONATATE 100 MG CAP PO SCH ×3 (09:15→21:37)
[2020-10-21] MEDS: ASCORBIC ACID 500 MG TAB PO SCH (09:16)
[2020-10-21] MEDS: FUROSEMIDE 20 MG TAB PO SCH ×2 (09:16→16:38)
[2020-10-21] MEDS: LINAGLIPTIN 5 MG TABLET PO SCH (09:16)
[2020-10-21] MEDS: FLUoxetine HCL 20 MG CAP PO SCH (09:17)
[2020-10-21] MEDS: PREGABALIN 100 MG CAP PO SCH ×2 (09:17→21:37)
[2020-10-21] MEDS: CHOLECALCIFEROL 25 MCG (1000 IU) TABLET PO SCH (09:17)
[2020-10-21] MEDS: PANTOPRAZOLE 40 MG TABLET PO SCH ×2 (09:17→18:06)
[2020-10-21] MEDS: guaiFENesin 600 MG TABLET.ER PO SCH ×2 (09:17→21:36)
[2020-10-21] MEDS: FLUCONAZOLE 100 MG TAB PO SCH (09:18)
[2020-10-21] MEDS: ENOXAPARIN 40 MG/0.4 ML SYRINGE SQ SCH (09:19)
[2020-10-21] MEDS: ZINC SULFATE 220 MG CAP PO SCH (09:39)
[2020-10-21 10:47] LABS: HCT 31.8 % (37.2-46.3); HGB 8.4 g/dL (12.0-15.0); MCH 21.3 pg (27.0-32.0); MCHC 26.4 g/dL (32.0-37.0); MCV 80.5 fL (80.0-97.0); Mean Platelet Volume 11.6 fL (9.5-12.2); Platelet Count 224 X 10*3/uL (140-440); RBC 3.95 X 10*6/uL (4.10-5.20); RDW 21.7 % (11.5-14.5); WBC 16.08 X 10*3/uL (4.50-10.00)
[2020-10-21 11:10] LABS: Glucose,Whole Blood 461 mg/dL (75-99)
[2020-10-21 11:17] LABS: Albumin/Globulin Ratio 1.54 (1.60-3.17); Anion Gap 4.2 mmol/L (4.00-12.00); Carbon Dioxide 38.8 mmol/L (21.6-31.8); Globulin 2.6 g/dL (1.6-3.3); Non-African American GFR(CKD) 58.7 (60.0-200.0); Potassium 4.9 mmol/L (3.5-5.5); Total Bilirubin 0.4 mg/dL (0.2-1.2); Total Protein 6.6 g/dL (6.2-8.2)
--- NOTE | 2020-10-21 12:23 | P.PN ---
Subjective Progress Note Date: 10/21/20 Principal diagnosis: Shortness of breath. 65-year-old female patient was hospitalized for shortness of breath. The patient was originally admitted to the hospital on 09/26/2020 on seeing this patient in consultation for dyspnea today. She is known to have multiple medical problems and comorbidities. 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 The patient is morbidly obese and she has COPD along with chronic hypoxic respiratory failure and she uses a nocturnal BiPAP device. She has obstructive sleep apnea. She has hypothyroidism and chronic edema lower extremities. During this current admission, the patient presented with some shortness of breath and a CT angiogram of the chest was done on 10/09/2020 and the CTA showed suboptimal study regarding the possibility of pulmonary embolism, nevertheless, there was cut or megaly and mild interstitial and alveolar edema concerning for underlying congestion heart failure. The chest x-rays also showing cardiomegaly with pulmonary vascular congestion. Patient is currently on Lasix 60 mg by mouth twice a day. The patient is also on prednisone 40 mg by mouth daily as part of a burst taper. I see that she was also taking Diamox and currently the Diamox is on hold. She'll DuoNeb neb achievements [id number]. Outpatient medications of been ordered resume. Her creatinine and creatinine is at 1.5 and the patient has a component of an acute kidney injury knowing that her baseline renal function was stable. She was also on Zaroxolyn which was also placed on hold. Progress note dated 10/15/2020. This is a 65-year-old female, well-known to our service. The patient was admitted back on October 06. She was seen by Dr. Gomes on October 12. More recently, the patient's saturations became low, she was more short of breath. The patient was transferred over or will be transferred over to [facility]. Currently, she is on BiPAP with IPAP of 12, EPAP of 6. FiO2 is 30%. As I mention, the patient was admitted on October 06. She apparently also tested positive for COVID on October 14. Currently she is on the pediatrics floor. Chest x-ray showed diffuse interstitial infiltrates, consistent with either interstitial edema, or pneumonitis secondary to coronavirus. Most recent labs were from October 14, with a white count 9.1, hemoglobin 7.6, hematocrit 28.2, and platelet count 297,000. D-dimer was 0.83. Sodium 133, potassium 4.6, chlorides 90, CO2 34, anion gap 9, BUN 49, creatinine 1.31. LDH 669, C-reactive protein 1.6. Progress note dated 10/16/2020. 65-year-old female, well-known to our service. The patient was seen by my partner initially, but at that time was doing relatively well, and we did not continue to see the patient. The patient was admitted back on October 06. She was seen by Dr. Gomes, on October 12. We were asked to re-see her, because she was more short of breath. She was placed on BiPAP at 12/6 and 30%. Yesterday she was quite lethargic and sleepy. Currently, she is on 3 L. She sitting at the bedside. She feels much better. She is much more awake and alert. She is a CO2 retainer, and if she gets excess oxygen, or any sedatives, hypnotics, narcotics, or tranquilizers, she will have worsening hypercapnic respiratory failure and will become very somnolent/lethargic. Currently labs include a white count 9.2, hemoglobin 7.9, hematocrit 30.5, and platelet count a 66,000. D-dimer is 0.86. Sodium 131, potassium 5.1, chlorides 91, CO2 28, anion gap is 12, BUN 43, and creatinine 1.24. LDH 906 and C-reactive protein is 2.8. She did test positive for coronavirus. Progress note dated 10/17/2020. 65-year-old female, well-known to our service. The patient was initially admitted back on October 06. She was seen by my partner on October 12. We saw her again on October 15 and . She was initially on the pediatric floor, and then moved to the [address] [place] [address]. Currently, she is not on any IV fluids. He is receiving nasal O2 at 3 L. She did not use of BiPAP last night. She is currently being evaluated by the hospital service for chest pain. There are no new labs to report. No new x-rays. From the pulmonary standpoint, she appears to be relatively stable. On 10/20/2020 patient seen in follow-up on medical surgical floor, she had just returned from the bathroom, where she ambulated on 5 L of oxygen, and her nasal cannula has multiple extensions, and with exertion patient becomes very short of breath, her pulse ox is 73% upon returning to the recliner from the bathroom, and patient is dyspnea, she was placed on BiPAP support with pressures of 12 and 6 and 30%. Patient does get very dyspneic and lightheaded when she desats with ambulation, and she was told to use the bedside commode. She's been afebrile, hemodynamically she's been stable, and today's chest x-ray shows coarse interstitial and scattered airspace infiltrates without significant change. Patient remains on oral Lasix 60 mg twice daily, she is on doxycycline for empiric antibiotic coverage, she is on Symbicort, albuterol, and Spiriva, she is on IV steroids, and she is on Zaroxolyn 2.5 mg on Tuesday schedule. Her weight is down by 1.5 kg in the last few days. Procalcitonin level was negative Progress note dated 10/21/2020. 65-year-old female, known to our service. The patient was admitted back on October 06. The patient goes back and forth between nasal cannula, and BiPAP. She has chronic hypoxemic and hypercapnic respiratory failure. Currently, she is on 5 L nasal cannula, with a saturation of 90%. She's doing reasonably well. Blood pressure is 174/79, respiratory rate 16, heart rate 91, and temperature 98.2. Labs from today include a white count of 16.08 hemoglobin 8.4, hematocrit 31.8, and a platelet count of 224,000. Sodium potassium chloride all normal. Carbon dioxide is 39, anion gap is 4, BUN 50, creatinine 1.0. Chest x-ray shows primarily chronic changes, without significant change compared to an x-ray done on October 15. Objective - Vital Signs Vital signs: Vital Signs Temp 98.2 F 10/21/20 07:40 Pulse 91 10/21/20 07:40 Resp 20 10/21/20 08:00 BP 174/79 10/21/20 07:40 Pulse Ox 90 L 10/21/20 07:40 Intake & Output 10/20/20 10/21/20 10/21/20 18:59 06:59 18:59 Intake Total 240 480 Balance 240 480 Weight 111.5 kg Intake: Oral 240 480 Other: Voiding Method Toilet - Exam No acute distress, much more awake and alert, currently on nasal O2 at 5 L. Sitting at the bedside, without any respiratory distress or difficulty. Saturations are 90% HEENT examination is grossly unremarkable. Neck supple. Full range of motion. No adenopathy thyromegaly or neck vein distention. Cardiovascular examination reveals regular rhythm rate. S1-S2 normal. No S3 or S4. No discernible murmur noted. Heart sounds are distant. Heart rate 91 bpm. Lungs reveal bilateral rhonchi and expiratory wheezes. A few scattered basilar crackles are noted. Breath sounds are equal bilaterally. There is prolongation on forced maneuver. Abdomen soft bowel sounds are heard. No masses or tenderness. Extremities are intact. No cyanosis or clubbing. Trace edema. Skin is without rash or lesion. Neurologic examination is brief but nonfocal. - Labs CBC & Chem 7: 10/21/20 05:46 10/21/20 05:46 Labs: Abnormal Lab Results - Last 24 Hours (Table) 10/20/20 10/20/20 10/21/20 Range/Units 17:33 19:39 05:46 WBC 16.08 H (4.50-10.00) X 10*3/uL RBC 3.95 L (4.10-5.20) X 10*6/uL Hgb 8.4 L (12.0-15.0) g/dL Hct 31.8 L (37.2-46.3) % MCH 21.3 L (27.0-32.0) pg MCHC 26.4 L (32.0-37.0) g/dL RDW 21.7 H (11.5-14.5) % Absolute Nucleated RBC 0.07 H (0.00-0.00) X 10*3/uL NRBC/100 WBC Diff 0.4 H (0.0-0.0) /100 WBCS D-Dimer (<0.60) mg/L FEU Carbon Dioxide (21.6-31.8) mmol/L BUN (9.0-27.0) mg/dL Est GFR (CKD-EPI)NonAf (60.0-200.0) BUN/Creatinine Ratio (12.00-20.00) Ratio POC Glucose (mg/dL) 177 H 220 H (75-99) mg/dL Ferritin (10.0-291.0) ng/mL Albumin/Globulin Ratio (1.60-3.17) g/dL 10/21/20 10/21/20 10/21/20 Range/Units 05:46 05:46 06:06 WBC (4.50-10.00) X 10*3/uL RBC (4.10-5.20) X 10*6/uL Hgb (12.0-15.0) g/dL Hct (37.2-46.3) % MCH (27.0-32.0) pg MCHC (32.0-37.0) g/dL RDW (11.5-14.5) % Absolute Nucleated RBC (0.00-0.00) X 10*3/uL NRBC/100 WBC Diff (0.0-0.0) /100 WBCS D-Dimer 1.03 H (<0.60) mg/L FEU Carbon Dioxide 38.8 H (21.6-31.8) mmol/L BUN 50.0 H (9.0-27.0) mg/dL Est GFR (CKD-EPI)NonAf 58.7 L (60.0-200.0) BUN/Creatinine Ratio 50.00 H (12.00-20.00) Ratio POC Glucose (mg/dL) 107 H (75-99) mg/dL Ferritin 400.0 H (10.0-291.0) ng/mL Albumin/Globulin Ratio 1.54 L (1.60-3.17) g/dL 10/21/20 10/21/20 Range/Units 07:40 11:09 WBC (4.50-10.00) X 10*3/uL RBC (4.10-5.20) X 10*6/uL Hgb (12.0-15.0) g/dL Hct (37.2-46.3) % MCH (27.0-32.0) pg MCHC (32.0-37.0) g/dL RDW (11.5-14.5) % Absolute Nucleated RBC (0.00-0.00) X 10*3/uL NRBC/100 WBC Diff (0.0-0.0) /100 WBCS D-Dimer (<0.60) mg/L FEU Carbon Dioxide (21.6-31.8) mmol/L BUN (9.0-27.0) mg/dL Est GFR (CKD-EPI)NonAf (60.0-200.0) BUN/Creatinine Ratio (12.00-20.00) Ratio POC Glucose (mg/dL) 154 H 461 H (75-99) mg/dL Ferritin (10.0-291.0) ng/mL Albumin/Globulin Ratio (1.60-3.17) g/dL Assessment and Plan Assessment: Acute hypoxemic respiratory failure, likely multifactorial, in part related to COPD exacerbation, diastolic CHF, and possible COVID 19 pneumonitis. History of GI bleed, secondary to duodenal AV malformation. History of chronic diastolic CHF. History of chronic obstructive pulmonary disease, with chronic hypoxemic respiratory failure, on home O2 at 4 L. Morbid obesity. History of diabetes mellitus. History of pneumonia. Diabetic neuropathy. Valvular heart disease/aortic stenosis. Obstructive sleep apnea syndrome. History of hypothyroidism. Previous history of heavy tobacco use. History of depression. Chronic lower extremity edema. Plan: Plan dated 10/15/2020. The patient will be moved from [facility] to [address] [place] [address]. Patient's currently on BiPAP with settings of IPAP 12, EPAP 6, and 30%. Seemed relatively comfortable. Currently, she is on vitamin C, vitamin D3, and zinc. In addition, the patient is getting Solu-Medrol 60 mg every 6 hours. The subcu heparin should be discontinued in favor of Lovenox, 40 mg subcu daily. Additional recommendations and suggestions are forthcoming. We will continue to follow. Prognosis is guarded. The patient has been feeling poorly for some time, even before her admission on October 06. She is likely outside the window for REM. Plan dated 10/16/2020. The patient's doing much better. She is on 3 L nasal cannula. She sitting at the bedside. Yesterday, she was quite lethargic while on BiPAP. The patient is a CO2 retainer. One has to be very careful with any sedatives or hypnotics or narcotics on this patient. Saturations are this patient are perfectly accept able 88-92%. We will continue to follow. Prognosis is guarded. She should be on Lovenox 40 mg subcu daily would not subcu heparin. We will continue to follow make recommendations. The patient was outside the window for REM. Plan dated 10/17/2020. The patient's doing better from the pulmonary standpoint. She did not use of BiPAP last night. She did test positive for coronavirus. She's currently being evaluated by the hospitalist service for chest pain. No new labs to report. No new chest x-ray to report. Medications have been reviewed. She is on appropriate medications including albuterol inhaler, Symbicort inhaler, vitamins C, D3, and zinc, as well as subcu heparin, and steroids. Plan dated 10/21/2020. Currently, the patient is about at her baseline. Currently, she is on 5 L nasal cannula. The patient can use BiPAP when she wants to, he uses it primarily in the evening when she is sleeping. She remains on appropriate medications including vitamin C, vitamin D3, and zinc. She is also on albuterol inhaler. We will continue to follow make recommendations were appropriate. Most recent chest x-ray, done yesterday stable. Changes are mostly chronic and unchanged. Overall prognosis remains guarded. She did not receive REM because she was outside the window. Time with Patient: Less than 30
--- NOTE | 2020-10-21 13:12 | CT ---
EXAMINATION TYPE: CT chest angio for PE DATE OF EXAM: 10/21/2020 COMPARISON: HISTORY: Hypoxia. CT DLP: 543 mGycm CONTRAST: CT chest with contrast and 3D reconstruction with MIP imaging is performed with IV Contrast, patient injected with 80 mL of Isovue 370. Contrast-enhanced CT of the chest was performed through the course of the pulmonary arteries with real g and mediastinal window settings submitted. 3D reconstruction with MIP imaging was also performed. PULMONARY ARTERIES: The pulmonary arteries and their major tributaries are patent. I do not see efrem dence for sizable filling defect to suggest pulmonary embolic process. LUNGS: Scattered airspace and interstitial infiltrates throughout both lung phelps. No evidence for a telectasis. No pulmonary nodule or mass is detected. No pleural effusion. MEDIASTINUM: Thoracic aorta is of normal caliber,however, evaluation is limited given timing of the contrast bolus. If there is concern for thoracic aortic pathology consider ALLY. Correlate clinicall y . The heart is is moderately enlarged. No evidence for mediastinal mass. No mediastinal lymph nod es greater than 1cm. HILAR STRUCTURES: No evidence for mass. No hilar lymph nodes greater than 1 cm. UPPER ABDOMEN: No significant abnormality is seen. IMPRESSION: 1. No evidence for Pulmonary embolism at this time. 2.Scattered airspace and interstitial infiltrates throughout both lung phelps.
--- NOTE | 2020-10-21 13:14 | P.PN ---
Subjective This is a 65-year-old female patient of Dr. Deras with past medical history significant for heart failure, COPD, chronic hypoxic respiratory failure on home O2 at 2 L nasal cannula and obstructive sleep apnea on BiPAP support at bedtime, diabetes mellitus type 2 with diabetic neuropathy, chronic diastolic heart failure, valvular heart disease, hypertension, hypothyroidism, GI bleed with anemia. Patient has had multiple admissions and multiple endoscopies for GIB and anemia. On August 29, capsule endoscopy found active bleeding and patient unde rwent EGD found to small nonbleeding duodenal angiectasia status post argon plasma coagulated. The bleeding seems to be stable since that time. They, patient presented to the hospital due to chest pain in the midsternal area across her chest seems to be worse after she eats it was hurting after she had breakfast this morning. She complains of shortness of breath with exertion that is worse than the last time she was admitted. She states her stools have been normal. She does complain of abdominal distention and fullness after eating. Patient presented to the [facility] emergency center for evaluation. Patient was found to be afebrile, heart rate 71, blood pressure 140/61, pulse ox 100% on oxygen. WBC 14.8, hemoglobin 8.2 which is stable for this patient. Platelet count is 310. Sodium 138, potassium 4.2, chloride 97, CO2 35, BUN 39 and creatinine 1.34 which is also patient's baseline. Blood sugar 207. D-dimer 0.89. Alkaline phosphatase 160. Troponin negative. Pro- BNP 2570. Lactic acid 1.0. Coronavirus PCR not detected. EKG sinus rhythm with nonspecific ST-T wave changes. Chest x-ray reveals vascular and interstitial markings prominent in the mid to lower lungs bilaterally similar to previous. Consider heart failure versus interstitial infiltrate. CAT scan of the abdomen and pelvis without contrast revealed hepatomegaly and 19.6 cm. Correlate with LFTs and risk factors for underlying hepatocellular disease. 1.3 cm right common iliac chain lymph node is enlarged. Left inguinal femoral chain lymph nodes are borderline enlarged. Findings probably reactive postinflammatory. 1.1 cm indeterminate right adrenal nodule. Moderate stool burden and generalized colonic diverticulosis. Tiny hiatal hernia. Consult was admitted for cardiology and patient has been seen by Dr. Yang for progressive dyspnea secondary to combination of COPD and element of heart failure with preserved systolic function. Plan to continue IV diuretics for 24 hours. 10/07: She has been afebrile, heart rate 86, blood pressure 101/46, pulse ox 90% on 4 L nasal cannula. WBC 11, hemoglobin 7.9, platelet count 319. Sodium 138, potassium 4.3, chloride 95, CO2 37, BUN 31 and creatinine 1.02. Blood sugars have been running 185 up to 405 at its 4 PM yesterday. Patient missed her morning dose of Levemir yesterday. Patient underwent gastric emptying study which was negative for gastroparesis. Patient is continued on IV Lasix at 40 mg every 12 hours. 10/08: Patient is afebrile, heart rate 75, blood pressure 146/57, pulse ox 92% on 3 L nasal cannula. Repeat blood work reveals sodium 138, potassium 4.9, chloride 96, CO2 37, BUN 38 creatinine 1.13. Blood sugars have been running between 211 and 307. Hemoglobin A1c from July is 5.2. Patient has increased dyspnea today along with a dry cough. She complains of shortness of breath with minimal activity, positive orthopnea. Patient was having issues with constipation and last evening and Senokot was added and she states she has had lots of bowel movements. Cardiology increase Lasix every 8 hours. Also Solu-Medrol added. 10/09: Pulse ox is 94% on 3 L nasal cannula. Patient has been afebrile, heart rate 86, blood pressure 134/63. Patient continues to have shortness of breath and nonproductive cough. She is wheezing. Positive shortness of breath with minimal activity. CTA of the chest has been ordered to rule out PE. Blood sugar at 2130 was 604 and also high yesterday afternoon, patient received additional NovoLog on top of scale. Levemir 42 units subcu ordered this morning versus her normal dose of 30. Scheduled NovoLog will be increased to 6 units with meals. Solu-Medrol will be decreased to every 12 hours Repeat blood work reveals sodium 131, potassium 5.9, chloride 89, CO2 38, BUN 41 and creatinine 1.15. 10/10: CTA of the chest was suboptimal study without central pulmonary embolism. Cardiomegaly with mild interstitial and alveolar edema raises concern for heart failure exacerbation. No focal consolidation. She is currently on Lasix 40 mg IV 3 times daily. She continues to have shortness of breath, dyspnea with exertion and lower extremity edema. Lasix will be decreased tomorrow to 60 mg oral twice daily. Blood sugars continue to be in the 400s and 500s. She has received additional NovoLog plus scale. Levemir will be increased to 45 units twice daily and scheduled NovoLog increased to 12 units with meals and at at be dtime. Solu-Medrol was discontinued and patient to start prednisone tomorrow. Pulse ox is 95% on 3 L nasal cannula. She's been afebrile, heart rate 60, blood pressure 131/54. Repeat blood work reveals WBC 15.8, hemoglobin 7.5, platelet count 388. Sodium was 129, potassium 6.1 and one dose of Kayexalate 30 mg ordered, oral prednisone scheduled was discontinued and Aldactone decreased to 12.5 mg daily. Chloride 84, CO2 39, BUN 57 and creatinine 1.41. 10/11 and patient examined bedside. Continue have shortness of breath on exertion. For some mild is continued at 40 IV every 8 hours per cardiology. On evaluation as patient's blood work today potassium is improved to 5.1 chloride is 85 bicarb 42 BUN 64 creatinine 1.34 glucose remains high at 444. Lantus increased to 50 twice a day today and NovoLog increased to 15 units with meals continue and follow with sliding scale. Solu-Medrol switched to prednisone 40 mg daily the patient labs tomorrow 10/12 patient examined at bedside. As shortness of breath on exertion and fatigue. Vitals checked in the room such as patient's systolic over 80s. Vitals as checked at 1 PM suggest blood pressure 125/71 with oxygen saturation of 96% on 8 L (55 years. 16 hold patient's blood pressure medication and Lasix today as patient's blood pressure is on the lower side. ABG to be obtained with a pH of 7.34 pCO2 of 81 pO2 59 and bicarb 43 appears to be secondary to metabolic alkalosis secondary to overdiuresis.. Patient to be placed on BiPAP for COPD exacerbation. Hold Lasix and metolazone. Continue Levemir at the current dose of 50 subcu twice a day with insulin aspart 15 subcu before meals and at bedtime. 10/13: Seen today in follow-up. Her hemoglobin is 7.4 and one dose of Ferrlecit IV will be ordered. Lasix will be resumed today at 60 mg oral. Patient utilizes BiPAP last night. She has gotten encouraged to use this during the day as well. 10/14: Patient noted to have a hacking barking cough. She states it started around 1:00 this morning and has been up all night coughing. She denies having any fever or chills. She denies any nausea or vomiting. A rapid Covid test was ordered which surprisingly came back positive. She has been afebrile, heart rate 91, blood pressure 148/63, pulse ox 94% on 2 L nasal cannula. WBC 9.1, hemoglobin 7.6, platelet count 297. D-dimer 0.83, LDH 669. C-reactive protein 1.6. Sodium 133, potassium 4.6, chloride 90, CO2 34, BUN 49 and creatinine 1.31. She is followed by pulmonary medicine. 10/15: Patient has not been able to sleep since 2 AM. She's experienced increased dyspnea. We have documented a 93% pulse ox on 2 L nasal cannula but this does not reflect patient's condition at the time. Patient had increasing dyspnea along with feeling tired and weak. Patient was transitioned to BiPAP and continues to have dyspnea. She has been utilizing BiPAP at nighttime and s omewhat during the day for high CO2 has been improving Patient noted to have wheezing and will be placed back on Solu-Medrol 60 mg IV every 6 hours. We are also increasing Levemir and scheduled NovoLog to cover for hyperglycemia. She will be transferred to the cardiac stepdown unit and pulmonary medicine to be notified of patient's condition. Patient has been afebrile, heart rate 93, blood pressure 113/63, pulse ox 97% on 30% BiPAP. Repeat inflammatory markers ordered for tomorrow. 10/16 patient examined bedside continues to complain of fatigue, headache, body aches, sores in the mouth. Vitals obtained suggested temp of 97.6 pulse 87 respiratory rate 20 blood pressure 140/62 oxygen saturation 94% on 3 L. Headache not resolve with Tylenol. We will add morphine 2 mg IV every 6 hours. Nystatin added to help with oral thrush. PTOT consulted for generalized weakness and debility. No labs to evaluate. Repeat labs tomorrow 10/17 patient examined bedside complains of substernal chest pain on coughing which is improved with breathing treatment. EKG obtained showed normal sinus rhythm with supraventricular complexes. No change compared to previous EKG. Troponin 2 ordered. Tessalon Perles added for cough. Patient is on Mucinex and guaifenesin codeine syrup for cough. Patient does sound congested and will switch patient's inhaler from Flovent to Symbicort. Vitals reviewed patient is afebrile pulse of 111 respiratory rate 20 blood pressure 119/60, oxygen saturation 94% on 3 L. No morning labs to review. Patient's blood sugar continues to be elevated. We will increase patient's Lantus to 70 units twice a day with mealtime insulin. Neck supple Medrol reduced to 40 every 8. No plan for him to have severe or Tocilizumab per pulmonary. Repeat labs ordered chest x-ray ordered. Patient likely discharge on Tuesday for possible oxygen needs and would need to be discharged home on oxygen. 10/18: Patient was examined at the bedside she is found sitting up in the chair currently on 3 L of O2 via nasal cannula. Patient states that she is breathing much better. She is utilizing a BiPAP machine at night for sleeping. She does have a BiPAP and CPAP machine at home. Patient states that the CPAP machine is not on enough to help with her shortness of breath at night. Patient remains afebrile heart rate 74, respirations 22, blood pressure 155/72, O2 saturation is 91% on 3 L of nasal O2 which is baseline for the patient. We will repeat CBC in the morning. 10/19: Patient was examined at the bedside she is found sitting up in a chair. Patient is currently on 3 L of O2 via nasal cannula pulse ox 94% which is normal for the patient. Patient did have a difficult night last night with increased shortness of breath she was unable to to sleep. She did spend the majority of the night sitting up in the chair. Patient is concerned about her cough and how fatigued she has after coughing. Patient has increased anxiety due to her diagnosis of COVID-19. A lengthy discussion was had regarding the oxygen needs and her long disease related to COVID-19. Questions were answered. It was discussed in length with patient to possibly go to subacute rehab facility. Patient remains afebrile, heart rate 77, respirations 21 and nonlabored with a cough. Pressure 137/75. 10/20: Patient continued to have significant hypoxia, persistent cough, worsening symptoms require multi hours on the BiPAP on daily basis. The patient about subacute rehab consult social psychologist patient will be started PTOT if her clinical component is better by Tuesday hopefully be able to send patient to [facility] otherwise continue current management and still be aggressive with her COPD and anemia. 10/21: Patient evaluated this morning, sitting up in the bedside chair. Patient has complaints of worsening shortness of breath, she was noted to be hypoxic 75% on 5 L. She was changed to high flow and oxygen did come up to 90%. Will obtain CTA to rule out PE, Acetazolamide 250 mg twice a day was also added. Will also increase her Solu-Medrol to 60 mg every 8 hours. Objective - Vital Signs Vital signs: Vital Signs Temp 98.2 F 10/21/20 07:40 Pulse 91 10/21/20 07:40 Resp 20 10/21/20 08:00 BP 174/79 10/21/20 07:40 Pulse Ox 90 L 10/21/20 07:40 Intake & Output 10/20/20 10/21/20 10/21/20 18:59 06:59 18:59 Intake Total 240 480 Balance 240 480 Weight 111.5 kg Intake: Oral 240 480 Other: Voiding Method Toilet - Exam Gen: This is a 65-year-old female. She is resting and recliner. HEENT: Head is atraumatic, normocephalic. Pupils equal, round. Sclerae is anicteric. Conjunctiva pale. NECK: Supple. No JVD. No lymphadenopathy. No thyromegaly. LUNGS: Wheezing resolved, improved air entry bilaterally. Crackles noted bilaterally No intercostal retractions. HEART: Regular rate and rhythm. Systolic murmur. ABDOMEN: Soft. Bowel sounds are present. No masses. No tenderness. EXTREMITIES: No pedal edema. No calf tenderness. Dorsalis pedis +2 bilaterally. NEUROLOGICAL: Patient is awake, alert and oriented x3. Cranial nerves 2 through 12 are grossly - Labs CBC & Chem 7: 10/21/20 05:46 10/21/20 05:46 Labs: Abnormal Lab Results - Last 24 Hours (Table) 10/20/20 10/20/20 10/21/20 Range/Units 17:33 19:39 05:46 WBC 16.08 H (4.50-10.00) X 10*3/uL RBC 3.95 L (4.10-5.20) X 10*6/uL Hgb 8.4 L (12.0-15.0) g/dL Hct 31.8 L (37.2-46.3) % MCH 21.3 L (27.0-32.0) pg MCHC 26.4 L (32.0-37.0) g/dL RDW 21.7 H (11.5-14.5) % Absolute Nucleated RBC 0.07 H (0.00-0.00) X 10*3/uL NRBC/100 WBC Diff 0.4 H (0.0-0.0) /100 WBCS D-Dimer (<0.60) mg/L FEU Carbon Dioxide (21.6-31.8) mmol/L BUN (9.0-27.0) mg/dL Est GFR (CKD-EPI)NonAf (60.0-200.0) BUN/Creatinine Ratio (12.00-20.00) Ratio POC Glucose (mg/dL) 177 H 220 H (75-99) mg/dL Ferritin (10.0-291.0) ng/mL Albumin/Globulin Ratio (1.60-3.17) g/dL 10/21/20 10/21/20 10/21/20 Range/Units 05:46 05:46 06:06 WBC (4.50-10.00) X 10*3/uL RBC (4.10-5.20) X 10*6/uL Hgb (12.0-15.0) g/dL Hct (37.2-46.3) % MCH (27.0-32.0) pg MCHC (32.0-37.0) g/dL RDW (11.5-14.5) % Absolute Nucleated RBC (0.00-0.00) X 10*3/uL NRBC/100 WBC Diff (0.0-0.0) /100 WBCS D-Dimer 1.03 H (<0.60) mg/L FEU Carbon Dioxide 38.8 H (21.6-31.8) mmol/L BUN 50.0 H (9.0-27.0) mg/dL Est GFR (CKD-EPI)NonAf 58.7 L (60.0-200.0) BUN/Creatinine Ratio 50.00 H (12.00-20.00) Ratio POC Glucose (mg/dL) 107 H (75-99) mg/dL Ferritin 400.0 H (10.0-291.0) ng/mL Albumin/Globulin Ratio 1.54 L (1.60-3.17) g/dL 10/21/20 10/21/20 Range/Units 07:40 11:09 WBC (4.50-10.00) X 10*3/uL RBC (4.10-5.20) X 10*6/uL Hgb (12.0-15.0) g/dL Hct (37.2-46.3) % MCH (27.0-32.0) pg MCHC (32.0-37.0) g/dL RDW (11.5-14.5) % Absolute Nucleated RBC (0.00-0.00) X 10*3/uL NRBC/100 WBC Diff (0.0-0.0) /100 WBCS D-Dimer (<0.60) mg/L FEU Carbon Dioxide (21.6-31.8) mmol/L BUN (9.0-27.0) mg/dL Est GFR (CKD-EPI)NonAf (60.0-200.0) BUN/Creatinine Ratio (12.00-20.00) Ratio POC Glucose (mg/dL) 154 H 461 H (75-99) mg/dL Ferritin (10.0-291.0) ng/mL Albumin/Globulin Ratio (1.60-3.17) g/dL Assessment and Plan Plan: 1. Chronic hypoxic respiratory failure with progressive dyspnea secondary to COPD and acute on chronic diastolic heart failure as well as Covid 19 pneumonia, POA. Continue Lasix at 60 mg oral daily, metolazone 2.5 mg on Tuesday on hold . Aldactone 12.5 mg daily resumed on 10/17, discontinue prednisone and r Solu-Medrol 40 mg IV every 8 hours. CTA of the chest ruled out pulmonary embolism. Flovent switch to Symbicort. Patient respiratory failure was not much better so far continue aggressive management with her COPD along with possible worsening bronchitis, patient remain on Solu-Medrol 40 mg every 8 hours we'll add doxycycline 100 mg twice a day continue her updraft around the clock continue BiPAP for at least 8 hours a day. Acetazolamide 250mg BID added, will obtain CTA of the chest to rule out pulmonary embolism due to worsening hypoxia. 2. Upper abdominal/lower chest pain with abdominal bloating and early satiety, ruled out gastroparesis. Most likely secondary to constipation and fecal burden. Continue Senokot 2 daily at 1800. 3. 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 Continue Protonix 40 mg oral twice daily. Status post Ferrlecit infusion 1. 4. Diabetes mellitus type 2 with diabetic neuropathy uncontrolled with hyperglycemia secondary to steroids. Continue Levemir increased to 70 units t wice daily, scheduled NovoLog increased to 25 units before meals and at bedtime, continue NovoLog scale before meals and at bedtime. Continue Januvia 100 mg daily. Hemoglobin A1c in July was 5.2. 5. Debility and worsening condition: The patient advance COPD and recurrent GI bleed along with COVID-19 patient is not doing well physically will continue PTOT and might require subacute rehab for at least 2 weeks. 6. COPD without exacerbation. Continue DuoNeb treatment 4 times daily as need ed, Pulmicort 1 mg twice daily, Singulair 10 mg at bedtime. 7. Hypertension. Continue Lasix, Lopressor 100 mg twice daily. 8. Hyperlipidemia. Continue Lipitor 40 mg daily. 9. Obstructive sleep apnea. Continue BiPAP at night. 10. Hypothyroidism. Continue levothyroxine 125 g daily. Restless leg syndrome. Continue Requip 2 mg twice daily. 11. Recurrent depression. Continue Prozac 20 mg daily. 12. Oral thrush. Diflucan 100 mg daily. Nystatin added for one week 13. Acute kidney injury. Metolazone held, continue Lasix at 60 mg daily Aldactone resumed at 12.5 daily 14. Hyperkalemia, resolved status post Kayexalate 1. 15. Metabolic alkalosis secondary to overdiuresis. Diamox discontinued, continue BiPAP. 16. COVID-19. Detected positive. Continue with respiratory support. 17. GI prophylaxis. Protonix twice daily. 18. DVT prophylaxis. Heparin subcu every 12 hours. The above impression and plan of care have been discussed and directed by signing physician. Tea Rogers nurse practitioner acting as scribe for signing physician.
[2020-10-21] MEDS: BUTALB/APAP/CAFF 50-325-40MG TAB PO PRN ×2 (13:26→18:12)
[2020-10-21 15:46] LABS: Erythrocyte Sedimentation Rate 44 mm/Hr (0-30)
[2020-10-21] MEDS: methylPREDNISolone SOD SUCCI 125 MG/2 ML VIAL IV SCH ×2 (16:45→23:16)
[2020-10-21 16:59] LABS: Glucose,Whole Blood 311 mg/dL (75-99)
[2020-10-21] MEDS: SENNOSIDES-DOCUSATE SODIUM 1 EACH TAB PO SCH (18:06)
[2020-10-21 20:19] LABS: Glucose,Whole Blood 303 mg/dL (75-99)
[2020-10-21] MEDS: MORPHINE SULFATE 2 MG/ML SYRINGE IVP PRN (21:34)
[2020-10-21] MEDS: MONTELUKAST 10 MG TAB PO SCH (21:36)
[2020-10-21] MEDS: acetaZOLAMIDE 250 MG TAB PO SCH (23:16)
[2020-10-22] MEDS: BENZOCAINE/MENTHOL LOZENG 1 EACH LOZENGE MUCOUS MEM PRN (01:57)
[2020-10-22] MEDS: ALPRAZolam 0.25 MG TAB PO PRN ×2 (02:00→10:58)
[2020-10-22] MEDS: ONDANSETRON 4 MG/2 ML VIAL IVP PRN (02:55)
[2020-10-22] MEDS: MORPHINE SULFATE 2 MG/ML SYRINGE IVP PRN (02:55)
[2020-10-22 07:55] LABS: Glucose,Whole Blood 100 mg/dL (75-99)
[2020-10-22] MEDS: INSULIN DETEMIR (LEVEMIR) 100 UNIT/ML SYR SQ SCH ×2 (08:12→20:56)
[2020-10-22] MEDS: methylPREDNISolone SOD SUCCI 125 MG/2 ML VIAL IV SCH ×2 (08:12→15:39)
[2020-10-22] MEDS: PREGABALIN 100 MG CAP PO SCH ×2 (08:13→20:54)
[2020-10-22] MEDS: guaiFENesin 600 MG TABLET.ER PO SCH ×2 (08:13→20:54)
[2020-10-22] MEDS: ASCORBIC ACID 500 MG TAB PO SCH (08:13)
[2020-10-22] MEDS: acetaZOLAMIDE 250 MG TAB PO SCH ×2 (08:13→20:55)
[2020-10-22] MEDS: FUROSEMIDE 20 MG TAB PO SCH ×2 (08:13→15:39)
[2020-10-22] MEDS: ENOXAPARIN 40 MG/0.4 ML SYRINGE SQ SCH (08:13)
[2020-10-22] MEDS: FLUoxetine HCL 20 MG CAP PO SCH (08:13)
[2020-10-22] MEDS: CHOLECALCIFEROL 25 MCG (1000 IU) TABLET PO SCH (08:13)
[2020-10-22] MEDS: BENZONATATE 100 MG CAP PO SCH ×3 (08:13→20:54)
[2020-10-22] MEDS: ZINC SULFATE 220 MG CAP PO SCH (08:13)
[2020-10-22] MEDS: PANTOPRAZOLE 40 MG TABLET PO SCH ×2 (08:13→17:43)
[2020-10-22] MEDS: NYSTATIN 100,000 UNIT/ML SUSP 500,000 UNIT/5 ML CUP PO SCH ×4 (08:14→20:54)
[2020-10-22] MEDS: FLUCONAZOLE 100 MG TAB PO SCH (08:15)
[2020-10-22] MEDS: LEVOTHYROXINE 125 MCG TAB PO SCH (08:15)
[2020-10-22] MEDS: LINAGLIPTIN 5 MG TABLET PO SCH (08:15)
[2020-10-22] MEDS: DOXYCYCLINE 100 MG CAP PO SCH ×2 (08:15→20:55)
[2020-10-22] MEDS: INSULIN ASPART (NovoLOG) 100 UNIT/ML VIAL SQ SCH ×8 (08:16→20:56)
[2020-10-22] MEDS: TIOTROPIUM 2.5 MCG INHALER INHALATION SCH (09:01)
[2020-10-22] MEDS: ALBUTEROL HFA INHALER INHALATION SCH ×4 (09:06→20:09)
[2020-10-22] MEDS: SYMBICORT 160-4.5 MCG INHALER INHALATION SCH ×2 (09:06→20:09)
[2020-10-22] MEDS: BUTALB/APAP/CAFF 50-325-40MG TAB PO PRN ×2 (10:58→21:01)
[2020-10-22 11:42] LABS: Glucose,Whole Blood 433 mg/dL (75-99)
--- NOTE | 2020-10-22 12:26 | P.PN ---
Subjective Progress Note Date: 10/22/20 Principal diagnosis: Acute hypoxic respiratory failure, multifactorial The patient is seen today 10/19/2020 in follow-up on the regular medical floor. She is currently sitting up in a chair at the bedside. Awake and alert in no acute distress. She states she has been having ongoing issues with shortness of breath on exertion and cough. She has been intolerant the BiPAP last night. She is on oxygen at 4 L/m per nasal cannula with O2 saturation in the mid 90s. She's afebrile. White count 14.4. Hemoglobin 7.9. D-dimer 0.76. Glucose 197. She remains on IV Solu-Medrol, albuterol, Spiriva, Singulair and Symbicort along with Tessalon Perles. On oral diuretics. Remains on vitamin supplements. Lovenox for DVT prophylaxis. On 10/20/2020 patient seen in follow-up on medical surgical floor, she had just returned from the bathroom, where she ambulated on 5 L of oxygen, and her nasal cannula has multiple extensions, and with exertion patient becomes very short of breath, her pulse ox is 73% upon returning to the recliner from the bathroom, and patient is dyspnea, she was placed on BiPAP support with pressures of 12 and 6 and 30%. Patient does get very dyspneic and lightheaded when she desats with ambulation, and she was told to use the bedside commode. She's been afebrile, hemodynamically she's been stable, and today's chest x-ray shows coarse interstitial and scattered airspace infiltrates without significant change. Patient remains on oral Lasix 60 mg twice daily, she is on doxycycline for empiric antibiotic coverage, she is on Symbicort, albuterol, and Spiriva, she is on IV steroids, and she is on Zaroxolyn 2.5 mg on Tuesday [facility]. Her weight is down by 1.5 kg in the last few days. Procalcitonin level was negative Progress note dated 10/21/2020. 65-year-old female, known to our service. The patient was admitted back on October 06. The patient goes back and forth between nasal cannula, and BiPAP. She has chronic hypoxemic and hypercapnic respiratory failure. Currently, she is on 5 L nasal cannula, with a saturation of 90%. She's doing reasonably well. Blood pressure is 174/79, respiratory rate 16, heart rate 91, and temperature 98.2. Labs from today include a white count of 16.08 hemoglobin 8.4, hematocrit 31.8, and a platelet count of 224,000. Sodium potassium chloride all normal. Carbon dioxide is 39, anion gap is 4, BUN 50, creatinine 1.0. Chest x-ray shows primarily chronic changes, without significant change compared to an x-ray done on October 15. The patient is seen today 10/22/2020 in follow-up on the regular medical floor. She is currently sitting up in a chair at the bedside. Awake and alert. Mild respiratory distress. Dyspneic with minimal conversation and minimal exertion. She is currently on 15 L high flow nasal cannula to maintain O2 saturations high 80s low 90s. She is alternating with BiPAP 12/6 and 45% FiO2. She did test positive for COVID-19 on 10/14/2020. Yesterday's CT angiogram ruled out pulmonary embolism. There is scattered airspace and interstitial infiltrates bilaterally. She remains on IV Solu-Medrol, Symbicort, Spiriva, albuterol,, Lovenox. On oral diuretics and Diamox. Antibiotics in the form of doxycycline. Vitamin supplements. Objective - Vital Signs Vital signs: Vital Signs Temp 97.7 F 10/22/20 08:00 Pulse 91 10/22/20 08:00 Resp 22 10/22/20 08:00 BP 135/73 10/22/20 08:00 Pulse Ox 91 L 10/22/20 08:00 Intake & Output 10/21/20 10/22/20 10/22/20 18:59 06:59 18:59 Intake Total 500 Output Total 275 Balance -275 500 Weight 111.5 kg 110.8 kg Intake: Oral 500 Output: Urine 275 Other: Voiding Method Toilet Toilet # Voids 1 1 - Exam GENERAL EXAM: Alert, pleasant, morbidly obese 65-year-old female patient, up in a chair, on 15 L high flow nasal cannula, fairly comfortable in no apparent distress. HEAD: Normocephalic. EYES: Normal reaction of pupils, equal size. NOSE: Clear with pink turbinates. THROAT: No erythema or exudates. NECK: No masses, no JVD. CHEST: No chest wall deformity. LUNGS: Equal air entry with crackles in the bilateral posterior bases, end expiratory wheeze, diminished. CVS: S1 and S2 normal with no audible murmur, regular rhythm. ABDOMEN: No hepatosplenomegaly, normal bowel sounds, no guarding or rigidity. SPINE: No scoliosis or deformity SKIN: No rashes CENTRAL NERVOUS SYSTEM: No focal deficits, tone is normal in all 4 extremities. EXTREMITIES: There is 1-2+ peripheral edema. No clubbing, no cyanosis. Peripheral pulses are intact. - Labs CBC & Chem 7: 10/21/20 05:46 10/21/20 05:46 Labs: Abnormal Lab Results - Last 24 Hours (Table) 10/21/20 10/21/20 10/21/20 Range/Units 05:46 16:56 20:18 ESR 44 H (0-30) mm/Hr POC Glucose (mg/dL) 311 H 303 H (75-99) mg/dL 10/22/20 10/22/20 Range/Units 07:53 11:41 ESR (0-30) mm/Hr POC Glucose (mg/dL) 100 H 433 H (75-99) mg/dL Assessment and Plan Assessment: 1 Acute hypoxic respiratory failure and dyspnea multifactorial, related to history of COPD, with acute exacerbation, diastolic CHF exacerbation and COVID- 19 pneumonitis. Patient was outside the window for Remdesivir, and she remains on IV steroids, oral diuretics, breathing treatments 2 History of COPD on home oxygen on a regular basis at 2 L 3 History of obstructive sleep apnea patient has a BiPAP unit at home which she uses on a regular basis 4 Diabetes with diabetic neuropathy, and possibility of hepatic history of paresis 5 History of GI bleeding and chronic anemia 6 Hypertension 7 Hyperlipidemia 8 Hypothyroidism 9 Depression 10 Acute kidney injury Plan: The patient was seen and evaluated by Dr. Wynne Continue the current treatment plan for now Titrate the FiO2 as tolerated Continue to utilize BiPAP as tolerated Prognosis guarded We will continue to follow and make further recommendations based on her clinical status I, the cosigning physician, performed a history & physical examination of the patient. Lungs sounds with basilar crackles, end expiratory wheeze, diminished. Maintaining good O2 saturations in the 90s on 15 L/m per high flow nasal cannula. I discussed the assessment and plan of care with my nurse practitioner, Margoth Enriquez. I attest to the above note as dictated by her.
--- NOTE | 2020-10-22 15:02 | P.PN ---
Subjective Progress Note Date: 10/22/20 HISTORY OF PRESENT ILLNESS This is a 65-year-old female patient of Dr. Deras with past medical history significant for heart failure, COPD, chronic hypoxic respiratory failure on home O2 at 2 L nasal cannula and obstructive sleep apnea on BiPAP support at bedtime, diabetes mellitus type 2 with diabetic neuropathy, chronic diastolic heart failure, valvular heart disease, hypertension, hypothyroidism, GI bleed with anemia. Patient has had multiple admissions and multiple endoscopies for GIB and anemia. 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 The bleeding seems to be stable since that time. They, patient presented to the hospital due to chest pain in the midsternal area across her chest seems to be worse after she eats it was hurting after she had breakfast this morning. She complains of shortness of breath with exertion that is worse than the last time she was admitted. She states her stools have been normal. She does complain of abdominal distention and fullness after eating. Patient presented to the [facility] emergency center for evaluation. Patient was found to be afebrile, heart rate 71, blood pressure 140/61, pulse ox 100% on oxygen. WBC 14.8, hemoglobin 8.2 which is stable for this patient. Platelet count is 310. Sodium 138, potassium 4.2, chloride 97, CO2 35, BUN 39 and creatinine 1.34 which is also patient's baseline. Blood sugar 207. D-dimer 0.89. Alkaline phosphatase 160. Troponin negative. Pro- BNP 2570. Lactic acid 1.0. Coronavirus PCR not detected. EKG sinus rhythm with nonspecific ST-T wave changes. Chest x-ray reveals vascular and interstitial markings prominent in the mid to lower lungs bilaterally similar to previous. Consider heart failure versus interstitial infiltrate. CAT scan of the abdomen and pelvis without contrast revealed hepatomegaly and 19.6 cm. Correlate with LFTs and risk factors for underlying hepatocellular disease. 1.3 cm right common iliac chain lymph node is enlarged. Left inguinal femoral chain lymph nodes are borderline enlarged. Findings probably reactive postinflammatory. 1.1 cm indeterminate right adrenal nodule. Moderate stool burden and generalized colonic diverticulosis. Tiny hiatal hernia. Consult was admitted for cardiology and patient has been seen by Dr. Yang for progressive dyspnea secondary to combination of COPD and element of heart failure with preserved systolic function. Plan to continue IV diuretics for 24 hours. 10/07: She has been afebrile, heart rate 86, blood pressure 101/46, pulse ox 90% on 4 L nasal cannula. WBC 11, hemoglobin 7.9, platelet count 319. Sodium 138, potassium 4.3, chloride 95, CO2 37, BUN 31 and creatinine 1.02. Blood sugars have been running 185 up to 405 at its 4 PM yesterday. Patient missed her morning dose of Levemir yesterday. Patient underwent gastric emptying study which was negative for gastroparesis. Patient is continued on IV Lasix at 40 mg every 12 hours. 10/08: Patient is afebrile, heart rate 75, blood pressure 146/57, pulse ox 92% on 3 L nasal cannula. Repeat blood work reveals sodium 138, potassium 4.9, chloride 96, CO2 37, BUN 38 creatinine 1.13. Blood sugars have been running between 211 and 307. Hemoglobin A1c from July is 5.2. Patient has increased dyspnea today along with a dry cough. She complains of shortness of breath with minimal activity, positive orthopnea. Patient was having issues with constipation and last evening and Senokot was added and she states she has had lots of bowel movements. Cardiology increase Lasix every 8 hours. Also Solu-Medrol added. 10/09: Pulse ox is 94% on 3 L nasal cannula. Patient has been afebrile, heart rate 86, blood pressure 134/63. Patient continues to have shortness of breath and nonproductive cough. She is wheezing. Positive shortness of breath with minimal activity. CTA of the chest has been ordered to rule out PE. Blood sugar at 0 was 604 and also high yesterday afternoon, patient received additional NovoLog on top of scale. Levemir 42 units subcu ordered this morning versus her normal dose of 30. Scheduled NovoLog will be increased to 6 units with meals. Solu-Medrol will be decreased to every 12 hours Repeat blood work reveals sodium 131, potassium 5.9, chloride 89, CO2 38, BUN 41 and creatinine 1.15. 10/10: CTA of the chest was suboptimal study without central pulmonary embolism. Cardiomegaly with mild interstitial and alveolar edema raises concern for heart failure exacerbation. No focal consolidation. She is currently on Lasix 40 mg IV 3 times daily. She continues to have shortness of breath, dyspnea with exertion and lower extremity edema. Lasix will be decreased tomorrow to 60 mg oral twice daily. Blood sugars continue to be in the 400s and 500s. She has received additional NovoLog plus scale. Levemir will be increased to 45 units twice daily and scheduled NovoLog increased to 12 units with meals and at at bedtime. Solu-Medrol was discontinued and patient to start prednisone tomorrow. Pulse ox is 95% on 3 L nasal cannula. She's been afebrile, heart rate 60, blood pressure 131/54. Repeat blood work reveals WBC 15.8, hemoglobin 7.5, platelet count 388. Sodium was 129, potassium 6.1 and one dose of Kayexalate 30 mg ordered, oral prednisone scheduled was discontinued and Aldactone decreased to 12.5 mg daily. Chloride 84, CO2 39, BUN 57 and creatinine 1.41. 10/11 and patient examined bedside. Continue have shortness of breath on exertion. For some mild is continued at 40 IV every 8 hours per cardiology. On evaluation as patient's blood work today potassium is improved to 5.1 chloride is 85 bicarb 42 BUN 64 creatinine 1.34 glucose remains high at 444. Lantus increased to 50 twice a day today and NovoLog increased to 15 units with meals continue and follow with sliding scale. Solu-Medrol switched to prednisone 40 mg daily the patient labs tomorrow 10/12 patient examined at bedside. As shortness of breath on exertion and fatigue. Vitals checked in the room such as patient's systolic over 80s. Vitals as checked at 1 PM suggest blood pressure 125/71 with oxygen saturation of 96% on 8 L (55 years. 16 hold patient's blood pressure medication and Lasix today as patient's blood pressure is on the lower side. ABG to be obtained with a pH of 7.34 pCO2 of 81 pO2 59 and bicarb 43 appears to be secondary to metabolic alkalosis secondary to overdiuresis.. Patient to be placed on BiPAP for COPD exacerbation. Hold Lasix and metolazone. Continue Levemir at the current dose of 50 subcu twice a day with insulin aspart 15 subcu before meals and at bedtime. 10/13: Seen today in follow-up. Her hemoglobin is 7.4 and one dose of Ferrlecit IV will be ordered. Lasix will be resumed today at 60 mg oral. Patient utilizes BiPAP last night. She has gotten encouraged to use this during the day as well. 10/14: Patient noted to have a hacking barking cough. She states it started around 1:00 this morning and has been up all night coughing. She denies having any fever or chills. She denies any nausea or vomiting. A rapid Covid test was ordered which surprisingly came back positive. She has been afebrile, heart rate 91, blood pressure 148/63, pulse ox 94% on 2 L nasal cannula. WBC 9.1, hemoglobin 7.6, platelet count 297. D-dimer 0.83, LDH 669. C-reactive protein 1.6. Sodium 133, potassium 4.6, chloride 90, CO2 34, BUN 49 and creatinine 1.31. She is followed by pulmonary medicine. 10/15: Patient has not been able to sleep since 2 AM. She's experienced increased dyspnea. We have documented a 93% pulse ox on 2 L nasal cannula but this does not reflect patient's condition at the time. Patient had increasing dyspnea along with feeling tired and weak. Patient was transitioned to BiPAP and continues to have dyspnea. She has been utilizing BiPAP at nighttime and somewhat during the day for high CO2 has been improving Patient noted to have wheezing and will be placed back on Solu-Medrol 60 mg IV every 6 hours. We are also increasing Levemir and scheduled NovoLog to cover for hyperglycemia. She will be transferred to the cardiac stepdown unit and pulmonary medicine to be notified of patient's condition. Patient has been afebrile, heart rate 93, blood pressure 113/63, pulse ox 97% on 30% BiPAP. Repeat inflammatory markers ordered for tomorrow. 10/16 patient examined bedside continues to complain of fatigue, headache, body aches, sores in the mouth. Vitals obtained suggested temp of 97.6 pulse 87 respiratory rate 20 blood pressure 140/62 oxygen saturation 94% on 3 L. Headache not resolve with Tylenol. We will add morphine 2 mg IV every 6 hours. Nystatin added to help with oral thrush. PTOT consulted for generalized weakness and debility. No labs to evaluate. Repeat labs tomorrow 10/17 patient examined bedside complains of substernal chest pain on coughing which is improved with breathing treatment. EKG obtained showed normal sinus rhythm with supraventricular complexes. No change compared to previous EKG. Troponin 2 ordered. Tessalon Perles added for cough. Patient is on Mucinex and guaifenesin codeine syrup for cough. Patient does sound congested and will switch patient's inhaler from Flovent to Symbicort. Vitals reviewed patient is afebrile pulse of 111 respiratory rate 20 blood pressure 119/60, oxygen saturation 94% on 3 L. No morning labs to review. Patient's blood sugar continues to be elevated. We will increase patient's Lantus to 70 units twice a day with mealtime insulin. Neck supple Medrol reduced to 40 every 8. No plan for him to have severe or Tocilizumab per pulmonary. Repeat labs ordered chest x-ray ordered. Patient likely discharge on Tuesday for possible oxygen needs and would need to be discharged home on oxygen. 10/18: Patient was examined at the bedside she is found sitting up in the chair currently on 3 L of O2 via nasal cannula. Patient states that she is breathing much better. She is utilizing a BiPAP machine at night for sleeping. She does have a BiPAP and CPAP machine at home. Patient states that the CPAP machine is not on enough to help with her shortness of breath at night. Patient remains afebrile heart rate 74, respirations 22, blood pressure 155/72, O2 saturation is 91% on 3 L of nasal O2 which is baseline for the patient. We will repeat CBC in the morning. 10/19: Patient was examined at the bedside she is found sitting up in a chair. Patient is currently on 3 L of O2 via nasal cannula pulse ox 94% which is normal for the patient. Patient did have a difficult night last night with increased shortness of breath she was unable to to sleep. She did spend the majority of the night sitting up in the chair. Patient is concerned about her cough and how fatigued she has after coughing. Patient has increased anxiety due to her diagnosis of COVID-19. A lengthy discussion was had regarding the oxygen needs and her long disease related to COVID-19. Questions were answered. It was discussed in length with patient to possibly go to subacute rehab facility. P atient remains afebrile, heart rate 77, respirations 21 and nonlabored with a cough. Pressure 137/75. 10/20: Patient continued to have significant hypoxia, persistent cough, worsening symptoms require multi hours on the BiPAP on daily basis. 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 10/21: Patient evaluated this morning, sitting up in the bedside chair. Patient has complaints of worsening shortness of breath, she was noted to be hypoxic 75% on 5 L. She was changed to high flow and oxygen did come up to 90%. Will obtain CTA to rule out PE, Acetazolamide 250 mg twice a day was also added. Will also increase her Solu-Medrol to 60 mg every 8 hours. 10/22: Patient has been afebrile, heart rate 91, blood pressure 135/73, pulse ox 91% on high flow nasal cannula 10 L. Patient was on BiPAP briefly last evening. Blood sugars are running high this morning was 100 but otherwise last evening and yesterday afternoon in the 300s up to 461. CTA of the chest shows no evidence of pulmonary embolism. Scattered airspace and interstitial infiltrates throughout both lung phelps. Diamox 250 mg twice daily was started. Patient is currently on Solu-Medrol 60 mg IV every 8 hours. Patient is seen today sitting up in a recliner. Patient utilized BiPAP during the night. She has been working with therapies. Patient had a pulse ox of 90% at rest at 10 L nasal cannula. She stood for 1 minute and pulse ox dropped to 75%. It took patient's 8 minutes to recover to 85% pulse ox. She is complaining of headache and she does have Fioricet and Tylenol 3 available. Patient's nurses been updated the patient is complaining of headache. Family was updated regarding patient's condition yesterday over the phone. REVIEW OF SYSTEMS Constitutional: No fever, no chills, no night sweats. No weight change. Reports sitting weakness and fatigue. No daytime sleepiness. EENT: No headache. No blurred vision or double vision, no loss of vision. No loss of Hearing, no ringing in the ears, no dizziness. No nasal drainage or congestion. No epistaxis. No sore throat. Lungs: Reports shortness of breath, reports cough, no sputum production. Reports wheezing. Reports dyspnea with exertion. Cardiovascular: No chest pain, no lower extremity edema. No palpitations. No paroxysmal nocturnal dyspnea. No orthopnea. No lightheadedness or dizziness. No syncopal episodes. Abdominal: Reports upper abdominal pain. No nausea, vomiting. no diarrhea. Reports constipation. No bloody reports tarry stools. Denies bright red bleeding. no loss of appetite. Genitourinary: No dysuria, increased frequency, urgency. No urinary retention. Musculoskeletal: No myalgias. No muscle weakness, no gait dysfunction, no frequent falls. No back pain. No neck pain. Integumentary: No wounds, no lesions. No rash or pruritus. No unusual bruisi ng. No change in hair or nails. Neurologic: No aphasia. No facial droop. No change in mentation. No head injury. No headache. No paralysis. No paresthesia. Psychiatric: No depression. No anxiety. Endocrine: Reported reports abnormal blood sugars. No weight change. PHYSICAL EXAMINATION Gen: This is a 65-year-old female. She is resting and recliner and appears to be mild respiratory distress. HEENT: Head is atraumatic, normocephalic. Pupils equal, round. Sclerae is anicteric. Conjunctiva pale. NECK: Supple. No JVD. No lymphadenopathy. No thyromegaly. LUNGS: Bilateral wheezing. Mild intercostal retractions. Mild accessory muscle usage. HEART: Regular rate and rhythm. Systolic murmur. ABDOMEN: Soft. Bowel sounds are present. No masses. No tenderness. EXTREMITIES: No pedal edema. No calf tenderness. Dorsalis pedis +2 bilat erally. NEUROLOGICAL: Patient is awake, alert and oriented x3. Cranial nerves 2 through 12 are grossly intact. ASSESSMENT AND PLAN 1. Chronic hypoxic respiratory failure with progressive dyspnea secondary to COPD and acute on chronic diastolic heart failure as well as Covid 19 pneumonia, POA. Continue Lasix at 60 mg oral daily, metolazone 2.5 mg on Tuesdayday Tuesday on hold . Aldactone discontinued, continue Solu-Medrol 60 mg IV every 8 hours. CTA of the chest ruled out pulmonary embolism. Continue Symbicort, Ventolin inhaler 2 puffs 4 times daily scheduled and as needed, Tessalon Perles 200 mg 3 times daily, doxycycline 100 mg twice daily, Mucinex 1200 mg twice daily, Robitussin-AC with codeine every 6 hours as needed. 2. Upper abdominal/lower chest pain with abdominal bloating and early satiety, ruled out gastroparesis. Most likely secondary to constipation and fecal burden. Continue Senokot 2 daily at 1800. 3. 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 Continue Protonix 40 mg oral twice daily. Status post Ferrlecit infusion 1. 4. Diabetes mellitus type 2 with diabetic neuropathy uncontrolled with hyperglycemia secondary to steroids. Continue Levemir increased to 70 units twice daily, scheduled NovoLog increased to 25 units before meals and at bedtime, continue NovoLog scale before meals and at bedtime. Continue Januvia 100 mg daily. Hemoglobin A1c in July was 5.2. 5. Debility and worsening condition: The patient advance COPD and recurrent GI bleed along with COVID-19 patient is not doing well physically will continue PTOT and might require subacute rehab for at least 2 weeks. 6. COPD without exacerbation. Continue DuoNeb treatment 4 times daily as needed, Pulmicort 1 mg twice daily, Singulair 10 mg at bedtime. 7. Hypertension. Continue Lasix, Lopressor 100 mg twice daily. 8. Hyperlipidemia. Continue Lipitor 40 mg daily. 9. Obstructive sleep apnea. Continue BiPAP at night. 10. Hypothyroidism. Continue levothyroxine 125 g daily. Restless leg syndrome. Continue Requip 2 mg twice daily. 11. Recurrent depression. Continue Prozac 20 mg daily. 12. Oral thrush. Diflucan 100 mg daily. Nystatin added for one week 13. Acute kidney injury. Metolazone held, continue Lasix at 60 mg daily Aldactone resumed at 12.5 daily 14. Hyperkalemia, resolved status post Kayexalate 1. 15. Metabolic alkalosis secondary to overdiuresis. Diamox discontinued, continue BiPAP. 16. COVID-19. Detected positive. Continue with respiratory support. 17. GI prophylaxis. Protonix twice daily. 18. DVT prophylaxis. Heparin subcu every 12 hours. DISCHARGE PLAN Home Impression and plan of care have been directed as dictated by the signing physician. Clarice Colón nurse practitioner acting as scribe for signing physician. Objective - Vital Signs Vital signs: Vital Signs Temp 97.7 F 10/22/20 08:00 Pulse 91 10/22/20 08:00 Resp 22 10/22/20 08:00 BP 135/73 10/22/20 08:00 Pulse Ox 91 L 10/22/20 08:00 Intake & Output 10/21/20 10/22/20 10/22/20 18:59 06:59 18:59 Output Total 275 Balance -275 Weight 111.5 kg 110.8 kg Output: Urine 275 Other: Voiding Method Toilet Toilet # Voids 1 1 - Labs CBC & Chem 7: 10/21/20 05:46 10/21/20 05:46 Labs: Abnormal Lab Results - Last 24 Hours (Table) 10/21/20 10/21/20 10/21/20 Range/Units 05:46 05:46 11:09 WBC 16.08 H (4.50-10.00) X 10*3/uL RBC 3.95 L (4.10-5.20) X 10*6/uL Hgb 8.4 L (12.0-15.0) g/dL Hct 31.8 L (37.2-46.3) % MCH 21.3 L (27.0-32.0) pg MCHC 26.4 L (32.0-37.0) g/dL RDW 21.7 H (11.5-14.5) % Absolute Nucleated RBC 0.07 H (0.00-0.00) X 10*3/uL NRBC/100 WBC Diff 0.4 H (0.0-0.0) /100 WBCS ESR 44 H (0-30) mm/Hr Carbon Dioxide 38.8 H (21.6-31.8) mmol/L BUN 50.0 H (9.0-27.0) mg/dL Est GFR (CKD-EPI)NonAf 58.7 L (60.0-200.0) BUN/Creatinine Ratio 50.00 H (12.00-20.00) Ratio POC Glucose (mg/dL) 461 H (75-99) mg/dL Ferritin 400.0 H (10.0-291.0) ng/mL Albumin/Globulin Ratio 1.54 L (1.60-3.17) g/dL 10/21/20 10/21/2021 Range/Units 16:56 20:18 07:53 WBC (4.50-10.00) X 10*3/uL RBC (4.10-5.20) X 10*6/uL Hgb (12.0-15.0) g/dL Hct (37.2-46.3) % MCH (27.0-32.0) pg MCHC (32.0-37.0) g/dL RDW (11.5-14.5) % Absolute Nucleated RBC (0.00-0.00) X 10*3/uL NRBC/100 WBC Diff (0.0-0.0) /100 WBCS ESR (0-30) mm/Hr Carbon Dioxide (21.6-31.8) mmol/L BUN (9.0-27.0) mg/dL Est GFR (CKD-EPI)NonAf (60.0-200.0) BUN/Creatinine Ratio (12.00-20.00) Ratio POC Glucose (mg/dL) 311 H 303 H 100 H (75-99) mg/dL Ferritin (10.0-291.0) ng/mL Albumin/Globulin Ratio (1.60-3.17) g/dL
[2020-10-22 17:15] LABS: Glucose,Whole Blood 253 mg/dL (75-99)
[2020-10-22] MEDS: SENNOSIDES-DOCUSATE SODIUM 1 EACH TAB PO SCH (17:44)
[2020-10-22 20:22] LABS: Glucose,Whole Blood 233 mg/dL (75-99)
[2020-10-22] MEDS: MONTELUKAST 10 MG TAB PO SCH (20:55)
[2020-10-23] MEDS: methylPREDNISolone SOD SUCCI 125 MG/2 ML VIAL IV SCH ×4 (00:06→23:46)
[2020-10-23] MEDS: ALPRAZolam 0.25 MG TAB PO PRN ×2 (00:06→23:46)
[2020-10-23] MEDS: BENZOCAINE/MENTHOL LOZENG 1 EACH LOZENGE MUCOUS MEM PRN (04:54)
[2020-10-23] MEDS: LEVOTHYROXINE 125 MCG TAB PO SCH (06:09)
[2020-10-23 07:52] LABS: Glucose,Whole Blood 321 mg/dL (75-99)
[2020-10-23] MEDS: SYMBICORT 160-4.5 MCG INHALER INHALATION SCH ×2 (08:35→19:45)
[2020-10-23] MEDS: TIOTROPIUM 2.5 MCG INHALER INHALATION SCH (08:35)
[2020-10-23] MEDS: ALBUTEROL HFA INHALER INHALATION SCH ×4 (08:35→19:44)
[2020-10-23] MEDS: INSULIN ASPART (NovoLOG) 100 UNIT/ML VIAL SQ SCH ×9 (09:29→21:08)
[2020-10-23] MEDS: INSULIN DETEMIR (LEVEMIR) 100 UNIT/ML SYR SQ SCH ×2 (09:29→21:04)
[2020-10-23] MEDS: FUROSEMIDE 20 MG TAB PO SCH ×2 (09:34→17:52)
[2020-10-23] MEDS: BENZONATATE 100 MG CAP PO SCH ×3 (09:35→21:02)
[2020-10-23] MEDS: CHOLECALCIFEROL 25 MCG (1000 IU) TABLET PO SCH (09:35)
[2020-10-23] MEDS: PREGABALIN 100 MG CAP PO SCH ×2 (09:35→21:02)
[2020-10-23] MEDS: PANTOPRAZOLE 40 MG TABLET PO SCH ×2 (09:35→17:52)
[2020-10-23] MEDS: ASCORBIC ACID 500 MG TAB PO SCH (09:35)
[2020-10-23] MEDS: ZINC SULFATE 220 MG CAP PO SCH (09:35)
[2020-10-23] MEDS: guaiFENesin 600 MG TABLET.ER PO SCH ×2 (09:36→21:01)
[2020-10-23] MEDS: ENOXAPARIN 40 MG/0.4 ML SYRINGE SQ SCH (09:39)
[2020-10-23] MEDS: acetaZOLAMIDE 250 MG TAB PO SCH ×2 (09:40→21:03)
[2020-10-23] MEDS: DOXYCYCLINE 100 MG CAP PO SCH ×2 (09:40→21:02)
[2020-10-23] MEDS: FLUoxetine HCL 20 MG CAP PO SCH (09:40)
[2020-10-23] MEDS: FLUCONAZOLE 100 MG TAB PO SCH (09:41)
[2020-10-23] MEDS: LINAGLIPTIN 5 MG TABLET PO SCH (09:41)
[2020-10-23] MEDS: NYSTATIN 100,000 UNIT/ML SUSP 500,000 UNIT/5 ML CUP PO SCH ×4 (09:41→21:02)
[2020-10-23 12:23] LABS: Glucose,Whole Blood 339 mg/dL (75-99)
--- NOTE | 2020-10-23 13:48 | P.PN ---
Subjective Progress Note Date: 10/23/20 Principal diagnosis: Acute hypoxic respiratory failure, multifactorial The patient is seen today 10/19/2020 in follow-up on the regular medical floor. She is currently sitting up in a chair at the bedside. Awake and alert in no acute distress. She states she has been having ongoing issues with shortness of breath on exertion and cough. She has been intolerant the BiPAP last night. She is on oxygen at 4 L/m per nasal cannula with O2 saturation in the mid 90s. She's afebrile. White count 14.4. Hemoglobin 7.9. D-dimer 0.76. Glucose 197. She remains on IV Solu-Medrol, albuterol, Spiriva, Singulair and Symbicort along with Tessalon Perles. On oral diuretics. Remains on vitamin supplements. Lovenox for DVT prophylaxis. On 10/20/2020 patient seen in follow-up on medical surgical floor, she had just returned from the bathroom, where she ambulated on 5 L of oxygen, and her nasal cannula has multiple extensions, and with exertion patient becomes very short of breath, her pulse ox is 73% upon returning to the recliner from the bathroom, and patient is dyspnea, she was placed on BiPAP support with pressures of 12 and 6 and 30%. Patient does get very dyspneic and lightheaded when she desats with ambulation, and she was told to use the bedside commode. She's been afebrile, hemodynamically she's been stable, and today's chest x-ray shows coarse interstitial and scattered airspace infiltrates without significant change. Patient remains on oral Lasix 60 mg twice daily, she is on doxycycline for empiric antibiotic coverage, she is on Symbicort, albuterol, and Spiriva, she is on IV steroids, and she is on Zaroxolyn 2.5 mg on Tuesday [facility]. Her weight is down by 1.5 kg in the last few days. Procalcitonin level was negative Progress note dated 10/21/2020. 65-year-old female, known to our service. The patient was admitted back on October 06. The patient goes back and forth between nasal cannula, and BiPAP. She has chronic hypoxemic and hypercapnic respiratory failure. Currently, she is on 5 L nasal cannula, with a saturation of 90%. She's doing reasonably well. Blood pressure is 174/79, respiratory rate 16, heart rate 91, and temperature 98.2. Labs from today include a white count of 16.08 hemoglobin 8.4, hematocrit 31.8, and a platelet count of 224,000. Sodium potassium chloride all normal. Carbon dioxide is 39, anion gap is 4, BUN 50, creatinine 1.0. Chest x-ray shows primarily chronic changes, without significant change compared to an x-ray done on October 15. The patient is seen today 10/22/2020 in follow-up on the regular medical floor. She is currently sitting up in a chair at the bedside. Awake and alert. Mild respiratory distress. Dyspneic with minimal conversation and minimal exertion. She is currently on 15 L high flow nasal cannula to maintain O2 saturations high 80s low 90s. She is alternating with BiPAP 12/6 and 45% FiO2. She did test positive for COVID-19 on 10/14/2020. Yesterday's CT angiogram ruled out pulmonary embolism. There is scattered airspace and interstitial infiltrates bilaterally. She remains on IV Solu-Medrol, Symbicort, Spiriva, albuterol,, Lovenox. On oral diuretics and Diamox. Antibiotics in the form of doxycycline. Vitamin supplements. Patient is seen today 10/23/2020 follow-up on the regular medical floor. She is currently sitting up in a chair at the bedside. Resting comfortably. Currently on 15 L high flow nasal cannula with O2 saturation at 97%. Occasionally she at the nonrebreather mask when feeling more short of breath. Blood glucose 339. She remains on IV Solu-Medrol, Symbicort, Spiriva, albuterol,, Lovenox. On oral diuretics and Diamox. Antibiotics in the form of doxycycline. Vitamin supplements. Objective - Vital Signs Vital signs: Vital Signs Temp 98.2 F 10/23/20 08:00 Pulse 81 10/23/20 08:00 Resp 20 10/23/20 08:00 BP 149/75 10/23/20 08:00 Pulse Ox 100 10/23/20 12:22 Intake & Output 10/22/20 10/23/20 10/23/20 18:59 06:59 18:59 Intake Total 1140 120 Output Total 300 Balance 1140 -180 Weight 111.4 kg Intake: Oral 1140 120 Output: Urine 300 Other: Voiding Method Toilet Toilet Bedside Commode # Voids 2 # Bowel Movements 1 - Exam GENERAL EXAM: Alert, pleasant, morbidly obese 65-year-old female patient, up in a chair, on 15 L high flow nasal cannula, fairly comfortable in no apparent distress. HEAD: Normocephalic. EYES: Normal reaction of pupils, equal size. NOSE: Clear with pink turbinates. THROAT: No erythema or exudates. NECK: No masses, no JVD. CHEST: No chest wall deformity. LUNGS: Equal air entry with crackles in the bilateral posterior bases, end expiratory wheeze, diminished. CVS: S1 and S2 normal with no audible murmur, regular rhythm. ABDOMEN: No hepatosplenomegaly, normal bowel sounds, no guarding or rigidity. SPINE: No scoliosis or deformity SKIN: No rashes CENTRAL NERVOUS SYSTEM: No focal deficits, tone is normal in all 4 extremities. EXTREMITIES: There is 1-2+ peripheral edema. No clubbing, no cyanosis. Peripheral pulses are intact. - Labs CBC & Chem 7: 10/21/20 05:46 10/21/20 05:46 Labs: Abnormal Lab Results - Last 24 Hours (Table) 10/22/20 10/22/20 10/23/20 Range/Units 17:14 20:20 07:51 POC Glucose (mg/dL) 253 H 233 H 321 H (75-99) mg/dL 10/23/20 Range/Units 12:21 POC Glucose (mg/dL) 339 H (75-99) mg/dL Assessment and Plan Assessment: 1 Acute hypoxic respiratory failure and dyspnea multifactorial, related to history of COPD, with acute exacerbation, diastolic CHF exacerbation and COVID- 19 pneumonitis. Patient was outside the window for Remdesivir, and she remains on IV steroids, oral diuretics, breathing treatments 2 History of COPD on home oxygen on a regular basis at 2 L 3 History of obstructive sleep apnea patient has a BiPAP unit at home which she uses on a regular basis 4 Diabetes with diabetic neuropathy, and possibility of hepatic history of paresis 5 History of GI bleeding and chronic anemia 6 Hypertension 7 Hyperlipidemia 8 Hypothyroidism 9 Depression 10 Acute kidney injury Plan: The patient was seen and evaluated by Dr. Wynne Continue the current treatment plan for now Titrate the FiO2 as tolerated Continue to utilize BiPAP as tolerated Prognosis guarded Follow-up chest x-ray and labs in the a.m. We will continue to follow and make further recommendations based on her clinical status I, the cosigning physician, performed a history & physical examination of the patient. Lungs sounds with basilar crackles, end expiratory wheeze, diminished. Maintaining good O2 saturations in the 90s on 15 L/m per high flow nasal cannula. I discussed the assessment and plan of care with my nurse practitioner, Margoth Enriquez. I attest to the above note as dictated by her.
[2020-10-23] MEDS: BUTALB/APAP/CAFF 50-325-40MG TAB PO PRN (14:04)
--- NOTE | 2020-10-23 14:17 | P.PN ---
Subjective Progress Note Date: 10/23/20 HISTORY OF PRESENT ILLNESS This is a 65-year-old female patient of Dr. Deras with past medical history significant for heart failure, COPD, chronic hypoxic respiratory failure on home O2 at 2 L nasal cannula and obstructive sleep apnea on BiPAP support at bedtime, diabetes mellitus type 2 with diabetic neuropathy, chronic diastolic heart failure, valvular heart disease, hypertension, hypothyroidism, GI bleed with anemia. Patient has had multiple admissions and multiple endoscopies for GIB and anemia. 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 The bleeding seems to be stable since that time. They, patient presented to the hospital due to chest pain in the midsternal area across her chest seems to be worse after she eats it was hurting after she had breakfast this morning. She complains of shortness of breath with exertion that is worse than the last time she was admitted. She states her stools have been normal. She does complain of abdominal distention and fullness after eating. Patient presented to the [facility] emergency center for evaluation. Patient was found to be afebrile, heart rate 71, blood pressure 140/61, pulse ox 100% on oxygen. WBC 14.8, hemoglobin 8.2 which is stable for this patient. Platelet count is 310. Sodium 138, potassium 4.2, chloride 97, CO2 35, BUN 39 and creatinine 1.34 which is also patient's baseline. Blood sugar 207. D-dimer 0.89. Alkaline phosphatase 160. Troponin negative. Pro- BNP 2570. Lactic acid 1.0. Coronavirus PCR not detected. EKG sinus rhythm with nonspecific ST-T wave changes. Chest x-ray reveals vascular and interstitial markings prominent in the mid to lower lungs bilaterally similar to previous. Consider heart failure versus interstitial infiltrate. CAT scan of the abdomen and pelvis without contrast revealed hepatomegaly and 19.6 cm. Correlate with LFTs and risk factors for underlying hepatocellular disease. 1.3 cm right common iliac chain lymph node is enlarged. Left inguinal femoral chain lymph nodes are borderline enlarged. Findings probably reactive postinflammatory. 1.1 cm indeterminate right adrenal nodule. Moderate stool burden and generalized colonic diverticulosis. Tiny hiatal hernia. Consult was admitted for cardiology and patient has been seen by Dr. Yang for progressive dyspnea secondary to combination of COPD and element of heart failure with preserved systolic function. Plan to continue IV diuretics for 24 hours. 10/07: She has been afebrile, heart rate 86, blood pressure 101/46, pulse ox 90% on 4 L nasal cannula. WBC 11, hemoglobin 7.9, platelet count 319. Sodium 138, potassium 4.3, chloride 95, CO2 37, BUN 31 and creatinine 1.02. Blood sugars have been running 185 up to 405 at its 4 PM yesterday. Patient missed her morning dose of Levemir yesterday. Patient underwent gastric emptying study which was negative for gastroparesis. Patient is continued on IV Lasix at 40 mg every 12 hours. 10/08: Patient is afebrile, heart rate 75, blood pressure 146/57, pulse ox 92% on 3 L nasal cannula. Repeat blood work reveals sodium 138, potassium 4.9, chloride 96, CO2 37, BUN 38 creatinine 1.13. Blood sugars have been running between 211 and 307. Hemoglobin A1c from July is 5.2. Patient has increased dyspnea today along with a dry cough. She complains of shortness of breath with minimal activity, positive orthopnea. Patient was having issues with constipation and last evening and Senokot was added and she states she has had lots of bowel movements. Cardiology increase Lasix every 8 hours. Also Solu-Medrol added. 10/09: Pulse ox is 94% on 3 L nasal cannula. Patient has been afebrile, heart rate 86, blood pressure 134/63. Patient continues to have shortness of breath and nonproductive cough. She is wheezing. Positive shortness of breath with minimal activity. CTA of the chest has been ordered to rule out PE. Blood sugar at 0 was 604 and also high yesterday afternoon, patient received additional NovoLog on top of scale. Levemir 42 units subcu ordered this morning versus her normal dose of 30. Scheduled NovoLog will be increased to 6 units with meals. Solu-Medrol will be decreased to every 12 hours Repeat blood work reveals sodium 131, potassium 5.9, chloride 89, CO2 38, BUN 41 and creatinine 1.15. 10/10: CTA of the chest was suboptimal study without central pulmonary embolism. Cardiomegaly with mild interstitial and alveolar edema raises concern for heart failure exacerbation. No focal consolidation. She is currently on Lasix 40 mg IV 3 times daily. She continues to have shortness of breath, dyspnea with exertion and lower extremity edema. Lasix will be decreased tomorrow to 60 mg oral twice daily. Blood sugars continue to be in the 400s and 500s. She has received additional NovoLog plus scale. Levemir will be increased to 45 units twice daily and scheduled NovoLog increased to 12 units with meals and at at bedtime. Solu-Medrol was discontinued and patient to start prednisone tomorrow. Pulse ox is 95% on 3 L nasal cannula. She's been afebrile, heart rate 60, blood pressure 131/54. Repeat blood work reveals WBC 15.8, hemoglobin 7.5, platelet count 388. Sodium was 129, potassium 6.1 and one dose of Kayexalate 30 mg ordered, oral prednisone scheduled was discontinued and Aldactone decreased to 12.5 mg daily. Chloride 84, CO2 39, BUN 57 and creatinine 1.41. 10/11 and patient examined bedside. Continue have shortness of breath on exertion. For some mild is continued at 40 IV every 8 hours per cardiology. On evaluation as patient's blood work today potassium is improved to 5.1 chloride is 85 bicarb 42 BUN 64 creatinine 1.34 glucose remains high at 444. Lantus increased to 50 twice a day today and NovoLog increased to 15 units with meals continue and follow with sliding scale. Solu-Medrol switched to prednisone 40 mg daily the patient labs tomorrow 10/12 patient examined at bedside. As shortness of breath on exertion and fatigue. Vitals checked in the room such as patient's systolic over 80s. Vitals as checked at 1 PM suggest blood pressure 125/71 with oxygen saturation of 96% on 8 L (55 years. 16 hold patient's blood pressure medication and Lasix today as patient's blood pressure is on the lower side. ABG to be obtained with a pH of 7.34 pCO2 of 81 pO2 59 and bicarb 43 appears to be secondary to metabolic alkalosis secondary to overdiuresis.. Patient to be placed on BiPAP for COPD exacerbation. Hold Lasix and metolazone. Continue Levemir at the current dose of 50 subcu twice a day with insulin aspart 15 subcu before meals and at bedtime. 10/13: Seen today in follow-up. Her hemoglobin is 7.4 and one dose of Ferrlecit IV will be ordered. Lasix will be resumed today at 60 mg oral. Patient utilizes BiPAP last night. She has gotten encouraged to use this during the day as well. 10/14: Patient noted to have a hacking barking cough. She states it started around 1:00 this morning and has been up all night coughing. She denies having any fever or chills. She denies any nausea or vomiting. A rapid Covid test was ordered which surprisingly came back positive. She has been afebrile, heart rate 91, blood pressure 148/63, pulse ox 94% on 2 L nasal cannula. WBC 9.1, hemoglobin 7.6, platelet count 297. D-dimer 0.83, LDH 669. C-reactive protein 1.6. Sodium 133, potassium 4.6, chloride 90, CO2 34, BUN 49 and creatinine 1.31. She is followed by pulmonary medicine. 10/15: Patient has not been able to sleep since 2 AM. She's experienced increased dyspnea. We have documented a 93% pulse ox on 2 L nasal cannula but this does not reflect patient's condition at the time. Patient had increasing dyspnea along with feeling tired and weak. Patient was transitioned to BiPAP and continues to have dyspnea. She has been utilizing BiPAP at nighttime and somewhat during the day for high CO2 has been improving Patient noted to have wheezing and will be placed back on Solu-Medrol 60 mg IV every 6 hours. We are also increasing Levemir and scheduled NovoLog to cover for hyperglycemia. She will be transferred to the cardiac stepdown unit and pulmonary medicine to be notified of patient's condition. Patient has been afebrile, heart rate 93, blood pressure 113/63, pulse ox 97% on 30% BiPAP. Repeat inflammatory markers ordered for tomorrow. 10/16 patient examined bedside continues to complain of fatigue, headache, body aches, sores in the mouth. Vitals obtained suggested temp of 97.6 pulse 87 respiratory rate 20 blood pressure 140/62 oxygen saturation 94% on 3 L. Headache not resolve with Tylenol. We will add morphine 2 mg IV every 6 hours. Nystatin added to help with oral thrush. PTOT consulted for generalized weakness and debility. No labs to evaluate. Repeat labs tomorrow 10/17 patient examined bedside complains of substernal chest pain on coughing which is improved with breathing treatment. EKG obtained showed normal sinus rhythm with supraventricular complexes. No change compared to previous EKG. Troponin 2 ordered. Tessalon Perles added for cough. Patient is on Mucinex and guaifenesin codeine syrup for cough. Patient does sound congested and will switch patient's inhaler from Flovent to Symbicort. Vitals reviewed patient is afebrile pulse of 111 respiratory rate 20 blood pressure 119/60, oxygen saturation 94% on 3 L. No morning labs to review. Patient's blood sugar continues to be elevated. We will increase patient's Lantus to 70 units twice a day with mealtime insulin. Neck supple Medrol reduced to 40 every 8. No plan for him to have severe or Tocilizumab per pulmonary. Repeat labs ordered chest x-ray ordered. Patient likely discharge on Tuesday for possible oxygen needs and would need to be discharged home on oxygen. 10/18: Patient was examined at the bedside she is found sitting up in the chair currently on 3 L of O2 via nasal cannula. Patient states that she is breathing much better. She is utilizing a BiPAP machine at night for sleeping. She does have a BiPAP and CPAP machine at home. Patient states that the CPAP machine is not on enough to help with her shortness of breath at night. Patient remains afebrile heart rate 74, respirations 22, blood pressure 155/72, O2 saturation is 91% on 3 L of nasal O2 which is baseline for the patient. We will repeat CBC in the morning. 10/19: Patient was examined at the bedside she is found sitting up in a chair. Patient is currently on 3 L of O2 via nasal cannula pulse ox 94% which is normal for the patient. Patient did have a difficult night last night with increased shortness of breath she was unable to to sleep. She did spend the majority of the night sitting up in the chair. Patient is concerned about her cough and how fatigued she has after coughing. Patient has increased anxiety due to her diagnosis of COVID-19. A lengthy discussion was had regarding the oxygen needs and her long disease related to COVID-19. Questions were answered. It was discussed in length with patient to possibly go to subacute rehab facility. P atient remains afebrile, heart rate 77, respirations 21 and nonlabored with a cough. Pressure 137/75. 10/20: Patient continued to have significant hypoxia, persistent cough, worsening symptoms require multi hours on the BiPAP on daily basis. The patient about subacute rehab consult social services director patient will be started PTOT if her clinical component is better by Tuesday hopefully be able to send patient to [facility] otherwise continue current management and still be aggressive with her COPD and anemia. 10/21: Patient evaluated this morning, sitting up in the bedside chair. Patient has complaints of worsening shortness of breath, she was noted to be hypoxic 75% on 5 L. She was changed to high flow and oxygen did come up to 90%. Will obtain CTA to rule out PE, Acetazolamide 250 mg twice a day was also added. Will also increase her Solu-Medrol to 60 mg every 8 hours. 10/22: Patient has been afebrile, heart rate 91, blood pressure 135/73, pulse ox 91% on high flow nasal cannula 10 L. Patient was on BiPAP briefly last evening. Blood sugars are running high this morning was 100 but otherwise last evening and yesterday afternoon in the 300s up to 461. CTA of the chest shows no evidence of pulmonary embolism. Scattered airspace and interstitial infiltrates throughout both lung phelps. Diamox 250 mg twice daily was started. Patient is currently on Solu-Medrol 60 mg IV every 8 hours. Patient is seen today sitting up in a recliner. Patient utilized BiPAP during the night. She has been working with therapies. Patient had a pulse ox of 90% at rest at 10 L nasal cannula. She stood for 1 minute and pulse ox dropped to 75%. It took patient's 8 minutes to recover to 85% pulse ox. She is complaining of headache and she does have Fioricet and Tylenol 3 available. Patient's nurses been updated the patient is complaining of headache. Family was updated regarding patient's condition yesterday over the phone. 10/23: Patient continues to have significant shortness of breath. She is currently on nonrebreather and nasal cannula 15 L high flow nasal cannula with pulse ox running between 86-100%. Attempt was made to take her off nonrebreather and she dropped down to 80. Patient continues to have cough and significant shortness of breath. All blood sugar remains elevated despite high- dose of insulins. Additional i short acting insulin ordered for this morning. Levemir will be increased to 75 units twice daily. Discussed CODE STATUS with the patient and she wishes to be full code and be intubated. She is unable to make decisions she states that her and daughter can make decisions together. Prognosis is guarded. REVIEW OF SYSTEMS Constitutional: No fever, no chills, no night sweats. No weight change. Rep orts sitting weakness and fatigue. No daytime sleepiness. EENT: No headache. No blurred vision or double vision, no loss of vision. No loss of Hearing, no ringing in the ears, no dizziness. No nasal drainage or congestion. No epistaxis. No sore throat. Lungs: Reports shortness of breath continues, reports cough, no sputum production. Reports wheezing. Reports dyspnea with exertion. Cardiovascular: No chest pain, no lower extremity edema. No palpitations. No paroxysmal nocturnal dyspnea. No orthopnea. No lightheadedness or dizziness. No syncopal episodes. Abdominal: Reports upper abdominal pain. No nausea, vomiting. no diarrhea. Reports constipation. No bloody reports tarry stools. Denies bright red bleeding. no loss of appetite. Genitourinary: No dysuria, increased frequency, urgency. No urinary retention. Musculoskeletal: No myalgias. No muscle weakness, no gait dysfunction, no frequent falls. No back pain. No neck pain. Integumentary: No wounds, no lesions. No rash or pruritus. No unusual bruising. No change in hair or nails. Neurologic: No aphasia. No facial droop. No change in mentation. No head injury. No headache. No paralysis. No paresthesia. Psychiatric: No depression. No anxiety. Endocrine: Reported reports abnormal blood sugars. No weight change. PHYSICAL EXAMINATION Gen: This is a 65-year-old female. She is resting and recliner and appears to be mild respiratory distress on nonrebreather and high flow nasal cannula 15 L. HEENT: Head is atraumatic, normocephalic. Pupils equal, round. Sclerae is anicteric. Conjunctiva pale. NECK: Supple. No JVD. No lymphadenopathy. No thyromegaly. LUNGS: Bilateral wheezing. Mild intercostal retractions. Mild accessory muscle usage. HEART: Regular rate and rhythm. Systolic murmur. ABDOMEN: Soft. Bowel sounds are present. No masses. No tenderness. EXTREMITIES: No pedal edema. No calf tenderness. Dorsalis pedis +2 bilaterally. NEUROLOGICAL: Patient is awake, alert and oriented x3. Cranial nerves 2 through 12 are grossly intact. ASSESSMENT AND PLAN 1. Chronic hypoxic respiratory failure with progressive dyspnea secondary to COPD and acute on chronic diastolic heart failure as well as Covid 19 pneumonia, POA. Continue Lasix at 60 mg oral daily, metolazone 2.5 mg on Tuesday on hold . Aldactone discontinued, continue Solu-Medrol 60 mg IV every 8 hours. CTA of the chest ruled out pulmonary embolism. Continue Symbicort, Ventolin inhaler 2 puffs 4 times daily scheduled and as needed, Tessalon Perles 200 mg 3 times daily, doxycycline 100 mg twice daily, Mucinex 1200 mg twice daily, Robitussin-AC with codeine every 6 hours as needed. 2. Upper abdominal/lower chest pain with abdominal bloating and early satiety, ruled out gastroparesis. Most likely secondary to constipation and fecal burden. Continue Senokot 2 daily at 1800. 3. 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 Continue Protonix 40 mg oral twice daily. Status post Ferrlecit infusion 1. 4. Diabetes mellitus type 2 with diabetic neuropathy uncontrolled with hyperglycemia secondary to steroids. Continue Levemir increased to 75 units twice daily, scheduled NovoLog increased to 25 units before meals and at bedtime, continue NovoLog scale before meals and at bedtime. Continue Januvia 1 00 mg daily. Hemoglobin A1c in July was 5.2. 5. Debility and worsening condition: The patient advance COPD and recurrent GI bleed along with COVID-19 patient is not doing well physically will continue PTOT and might require subacute rehab for at least 2 weeks. 6. COPD without exacerbation. Continue DuoNeb treatment 4 times daily as needed, Pulmicort 1 mg twice daily, Singulair 10 mg at bedtime. 7. Hypertension. Continue Lasix, Lopressor 100 mg twice daily. 8. Hyperlipidemia. Continue Lipitor 40 mg daily. 9. Obstructive sleep apnea. Continue BiPAP at night. 10. Hypothyroidism. Continue levothyroxine 125 g daily. Restless leg syndrome. Continue Requip 2 mg twice daily. 11. Recurrent depression. Continue Prozac 20 mg daily. 12. Oral thrush. Diflucan 100 mg daily. Nystatin added for one week 13. Acute kidney injury. continue Lasix at 60 mg daily Aldactone resumed at 12.5 daily 14. Hyperkalemia, resolved status post Kayexalate 1. 15. Metabolic alkalosis secondary to overdiuresis. Diamox discontinued, continue BiPAP. 16. COVID-19. Detected positive. Continue with respiratory support. 17. GI prophylaxis. Protonix twice daily. 18. DVT prophylaxis. Heparin subcu every 12 hours. DISCHARGE PLAN Home Impression and plan of care have been directed as dictated by the signing physician. Clarice Colón nurse practitioner acting as scribe for signing physician. Objective - Vital Signs Vital signs: Vital Signs Temp 98.2 F 10/23/20 08:00 Pulse 81 10/23/20 08:00 Resp 20 10/23/20 08:00 BP 149/75 10/23/20 08:00 Pulse Ox 86 L 10/23/20 08:36 Intake & Output 10/22/20 10/23/20 10/23/20 18:59 06:59 18:59 Intake Total 1140 120 Balance 1140 120 Weight 111.4 kg Intake: Oral 1140 120 Other: Voiding Method Toilet Toilet # Voids 2 - Labs CBC & Chem 7: 10/21/20 05:46 10/21/20 05:46 Labs: Abnormal Lab Results - Last 24 Hours (Table) 10/22/20 10/22/20 10/22/20 Range/Units 11:41 17:14 20:20 POC Glucose (mg/dL) 433 H 253 H 233 H (75-99) mg/dL 10/23/20 Range/Units 07:51 POC Glucose (mg/dL) 321 H (75-99) mg/dL
[2020-10-23 15:17] LABS: Glucose,Whole Blood 336 mg/dL (75-99)
[2020-10-23] MEDS ORDERED: INSULIN ASPART (NovoLOG) 100 UNIT/ML VIAL SQ ONE (15:36)
[2020-10-23 17:24] LABS: Glucose,Whole Blood 149 mg/dL (75-99)
--- NOTE | 2020-10-23 17:29 | CDI ---
Documentation Clarification Form Date: 10/23/2020 05:28:46 PM From: Tonia Arreguin RN, CCDS Admit Date: 10/06/2020 02:08:00 AM Patient Name: Saud Null Visit Number: [id number] Discharge Date: ATTENTION: The Clinical Documentation Specialists (CDI) and [facility] Coding Staff appreciate your assistance in clarifying documentation. Please respond to the clarification below the line at the bottom and electronically sign. The CDI & [facility] Coding staff will review the response and follow-up if needed. Please note: Queries are made part of the Legal Health Record. If you have any questions, please contact the author of this message via ITS. Dr. Yoel Deras Unspecified CKD is documented 10/13/20- 10/16/20. Additional clarification regarding the stage of CKD is requested. History/Risk Factors: chronic kidney disease, Heart Failure Diabetes Mellitus, COPD, Hypertension Clinical Indicators: [id number] present to ED on 10/06 for progressive dyspnea. she was ruled in for COPD, CHF exacerbation and renal failure per cardiology progress notes on 10/06/20. 10/06 Admission: BUN 39, Creatinine 1.34, GFR 41 10/21 BUN 50.0, Creatinine 1.0, GFR 58.7 Treatment: Monitor BUN CR, GFR, per orders Cautious diuresis Please clarify the stage of the CKD, if known: [ ] CKD Stage 1 (GFR > 90) [ ] CKD Stage 2 (GFR 60-89) [ x ] CKD Stage 3 (GFR 30-59) [ ] CKD Stage 3a (GFR 45-59) [ ] CKD Stage 3b (GFR 30-44) [ ] Other, please specify [ ] Unable to determine (Template Last revised: July 2020) MTDD
[2020-10-23] MEDS: SENNOSIDES-DOCUSATE SODIUM 1 EACH TAB PO SCH (17:52)
[2020-10-23 20:07] LABS: Glucose,Whole Blood 111 mg/dL (75-99)
[2020-10-23] MEDS: MONTELUKAST 10 MG TAB PO SCH (21:02)
[2020-10-23] MEDS: MORPHINE SULFATE 2 MG/ML SYRINGE IVP PRN (21:40)
[2020-10-23] MEDS ORDERED: ALPRAZolam 0.25 MG TAB PO SCH (22:00)
[2020-10-24] MEDS: MORPHINE SULFATE 2 MG/ML SYRINGE IVP PRN ×2 (04:04→21:28)
[2020-10-24] MEDS: LEVOTHYROXINE 125 MCG TAB PO SCH (05:47)
[2020-10-24 07:39] LABS: Glucose,Whole Blood 72 mg/dL (75-99)
--- NOTE | 2020-10-24 07:43 | XR ---
EXAMINATION TYPE: XR chest 1V portable DATE OF EXAM: 10/24/2020 HISTORY: Shortness of breath. COMPARISON: 10/20/2020 TECHNIQUE: Single view of the chest is submitted. FINDINGS: Demonstrated are scattered senescent parenchymal change. Scattered airspace infiltrates persist unchanged. The heart is stable. Hilar and mediastinal structures are within normal limits. Degenerative changes are seen of the dorsal spine. IMPRESSION: 1. Chronic changes without evidence for acute pulmonary disease.
[2020-10-24] MEDS: INSULIN ASPART (NovoLOG) 100 UNIT/ML VIAL SQ SCH ×6 (07:57→17:28)
[2020-10-24] MEDS: TIOTROPIUM 2.5 MCG INHALER INHALATION SCH (08:18)
[2020-10-24] MEDS: ALBUTEROL HFA INHALER INHALATION SCH ×4 (08:18→20:44)
[2020-10-24] MEDS: SYMBICORT 160-4.5 MCG INHALER INHALATION SCH ×2 (08:18→20:44)
[2020-10-24] MEDS: CHOLECALCIFEROL 25 MCG (1000 IU) TABLET PO SCH (08:31)
[2020-10-24] MEDS: guaiFENesin 600 MG TABLET.ER PO SCH ×2 (08:31→21:13)
[2020-10-24] MEDS: FUROSEMIDE 20 MG TAB PO SCH ×2 (08:32→17:09)
[2020-10-24] MEDS: ALPRAZolam 0.25 MG TAB PO PRN ×3 (08:32→21:28)
[2020-10-24] MEDS: PREGABALIN 100 MG CAP PO SCH ×2 (08:32→21:13)
[2020-10-24] MEDS: FLUoxetine HCL 20 MG CAP PO SCH (08:32)
[2020-10-24] MEDS: ASCORBIC ACID 500 MG TAB PO SCH (08:32)
[2020-10-24] MEDS: BENZONATATE 100 MG CAP PO SCH ×3 (08:32→21:13)
[2020-10-24] MEDS: PANTOPRAZOLE 40 MG TABLET PO SCH ×2 (08:32→17:09)
[2020-10-24] MEDS: ZINC SULFATE 220 MG CAP PO SCH (08:32)
[2020-10-24] MEDS: INSULIN DETEMIR (LEVEMIR) 100 UNIT/ML SYR SQ SCH ×2 (08:36→21:14)
[2020-10-24] MEDS: methylPREDNISolone SOD SUCCI 125 MG/2 ML VIAL IV SCH ×3 (08:37→23:32)
[2020-10-24] MEDS: ENOXAPARIN 40 MG/0.4 ML SYRINGE SQ SCH (08:37)
[2020-10-24] MEDS: NYSTATIN 100,000 UNIT/ML SUSP 500,000 UNIT/5 ML CUP PO SCH ×4 (08:37→21:13)
[2020-10-24] MEDS: LINAGLIPTIN 5 MG TABLET PO SCH (08:37)
[2020-10-24] MEDS: DOXYCYCLINE 100 MG CAP PO SCH ×2 (08:37→21:13)
[2020-10-24] MEDS: acetaZOLAMIDE 250 MG TAB PO SCH ×2 (08:38→21:13)
[2020-10-24] MEDS: FLUCONAZOLE 100 MG TAB PO SCH (08:38)
--- NOTE | 2020-10-24 10:08 | P.PN ---
Subjective Progress Note Date: 10/24/20 HISTORY OF PRESENT ILLNESS This is a 65-year-old female patient of Dr. Deras with past medical history significant for heart failure, COPD, chronic hypoxic respiratory failure on home O2 at 2 L nasal cannula and obstructive sleep apnea on BiPAP support at bedtime, diabetes mellitus type 2 with diabetic neuropathy, chronic diastolic heart failure, valvular heart disease, hypertension, hypothyroidism, GI bleed with anemia. Patient has had multiple admissions and multiple endoscopies for GIB and anemia. 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 The bleeding seems to be stable since that time. They, patient presented to the hospital due to chest pain in the midsternal area across her chest seems to be worse after she eats it was hurting after she had breakfast this morning. She complains of shortness of breath with exertion that is worse than the last time she was admitted. She states her stools have been normal. She does complain of abdominal distention and fullness after eating. Patient presented to the [facility] emergency center for evaluation. Patient was found to be afebrile, heart rate 71, blood pressure 140/61, pulse ox 100% on oxygen. WBC 14.8, hemoglobin 8.2 which is stable for this patient. Platelet count is 310. Sodium 138, potassium 4.2, chloride 97, CO2 35, BUN 39 and creatinine 1.34 which is also patient's baseline. Blood sugar 207. D-dimer 0.89. Alkaline phosphatase 160. Troponin negative. Pro- BNP 2570. Lactic acid 1.0. Coronavirus PCR not detected. EKG sinus rhythm with nonspecific ST-T wave changes. Chest x-ray reveals vascular and interstitial markings prominent in the mid to lower lungs bilaterally similar to previous. Consider heart failure versus interstitial infiltrate. CAT scan of the abdomen and pelvis without contrast revealed hepatomegaly and 19.6 cm. Correlate with LFTs and risk factors for underlying hepatocellular disease. 1.3 cm right common iliac chain lymph node is enlarged. Left inguinal femoral chain lymph nodes are borderline enlarged. Findings probably reactive postinflammatory. 1.1 cm indeterminate right adrenal nodule. Moderate stool burden and generalized colonic diverticulosis. Tiny hiatal hernia. Consult was admitted for cardiology and patient has been seen by Dr. Yang for progressive dyspnea secondary to combination of COPD and element of heart failure with preserved systolic function. Plan to continue IV diuretics for 24 hours. 10/07: She has been afebrile, heart rate 86, blood pressure 101/46, pulse ox 90% on 4 L nasal cannula. WBC 11, hemoglobin 7.9, platelet count 319. Sodium 138, potassium 4.3, chloride 95, CO2 37, BUN 31 and creatinine 1.02. Blood sugars have been running 185 up to 405 at its 4 PM yesterday. Patient missed her morning dose of Levemir yesterday. Patient underwent gastric emptying study which was negative for gastroparesis. Patient is continued on IV Lasix at 40 mg every 12 hours. 10/08: Patient is afebrile, heart rate 75, blood pressure 146/57, pulse ox 92% on 3 L nasal cannula. Repeat blood work reveals sodium 138, potassium 4.9, chloride 96, CO2 37, BUN 38 creatinine 1.13. Blood sugars have been running between 211 and 307. Hemoglobin A1c from July is 5.2. Patient has increased dyspnea today along with a dry cough. She complains of shortness of breath with minimal activity, positive orthopnea. Patient was having issues with constipation and last evening and Senokot was added and she states she has had lots of bowel movements. Cardiology increase Lasix every 8 hours. Also Solu-Medrol added. 10/09: Pulse ox is 94% on 3 L nasal cannula. Patient has been afebrile, heart rate 86, blood pressure 134/63. Patient continues to have shortness of breath and nonproductive cough. She is wheezing. Positive shortness of breath with minimal activity. CTA of the chest has been ordered to rule out PE. Blood sugar at 0 was 604 and also high yesterday afternoon, patient received additional NovoLog on top of scale. Levemir 42 units subcu ordered this morning versus her normal dose of 30. Scheduled NovoLog will be increased to 6 units with meals. Solu-Medrol will be decreased to every 12 hours Repeat blood work reveals sodium 131, potassium 5.9, chloride 89, CO2 38, BUN 41 and creatinine 1.15. 10/10: CTA of the chest was suboptimal study without central pulmonary embolism. Cardiomegaly with mild interstitial and alveolar edema raises concern for heart failure exacerbation. No focal consolidation. She is currently on Lasix 40 mg IV 3 times daily. She continues to have shortness of breath, dyspnea with exertion and lower extremity edema. Lasix will be decreased tomorrow to 60 mg oral twice daily. Blood sugars continue to be in the 400s and 500s. She has received additional NovoLog plus scale. Levemir will be increased to 45 units twice daily and scheduled NovoLog increased to 12 units with meals and at at bedtime. Solu-Medrol was discontinued and patient to start prednisone tomorrow. Pulse ox is 95% on 3 L nasal cannula. She's been afebrile, heart rate 60, blood pressure 131/54. Repeat blood work reveals WBC 15.8, hemoglobin 7.5, platelet count 388. Sodium was 129, potassium 6.1 and one dose of Kayexalate 30 mg ordered, oral prednisone scheduled was discontinued and Aldactone decreased to 12.5 mg daily. Chloride 84, CO2 39, BUN 57 and creatinine 1.41. 10/11 and patient examined bedside. Continue have shortness of breath on exertion. For some mild is continued at 40 IV every 8 hours per cardiology. On evaluation as patient's blood work today potassium is improved to 5.1 chloride is 85 bicarb 42 BUN 64 creatinine 1.34 glucose remains high at 444. Lantus increased to 50 twice a day today and NovoLog increased to 15 units with meals continue and follow with sliding scale. Solu-Medrol switched to prednisone 40 mg daily the patient labs tomorrow 10/12 patient examined at bedside. As shortness of breath on exertion and fatigue. Vitals checked in the room such as patient's systolic over 80s. Vitals as checked at 1 PM suggest blood pressure 125/71 with oxygen saturation of 96% on 8 L (55 years. 16 hold patient's blood pressure medication and Lasix today as patient's blood pressure is on the lower side. ABG to be obtained with a pH of 7.34 pCO2 of 81 pO2 59 and bicarb 43 appears to be secondary to metabolic alkalosis secondary to overdiuresis.. Patient to be placed on BiPAP for COPD exacerbation. Hold Lasix and metolazone. Continue Levemir at the current dose of 50 subcu twice a day with insulin aspart 15 subcu before meals and at bedtime. 10/13: Seen today in follow-up. Her hemoglobin is 7.4 and one dose of Ferrlecit IV will be ordered. Lasix will be resumed today at 60 mg oral. Patient utilizes BiPAP last night. She has gotten encouraged to use this during the day as well. 10/14: Patient noted to have a hacking barking cough. She states it started around 1:00 this morning and has been up all night coughing. She denies having any fever or chills. She denies any nausea or vomiting. A rapid Covid test was ordered which surprisingly came back positive. She has been afebrile, heart rate 91, blood pressure 148/63, pulse ox 94% on 2 L nasal cannula. WBC 9.1, hemoglobin 7.6, platelet count 297. D-dimer 0.83, LDH 669. C-reactive protein 1.6. Sodium 133, potassium 4.6, chloride 90, CO2 34, BUN 49 and creatinine 1.31. She is followed by pulmonary medicine. 10/15: Patient has not been able to sleep since 2 AM. She's experienced increased dyspnea. We have documented a 93% pulse ox on 2 L nasal cannula but this does not reflect patient's condition at the time. Patient had increasing dyspnea along with feeling tired and weak. Patient was transitioned to BiPAP and continues to have dyspnea. She has been utilizing BiPAP at nighttime and somewhat during the day for high CO2 has been improving Patient noted to have wheezing and will be placed back on Solu-Medrol 60 mg IV every 6 hours. We are also increasing Levemir and scheduled NovoLog to cover for hyperglycemia. She will be transferred to the cardiac stepdown unit and pulmonary medicine to be notified of patient's condition. Patient has been afebrile, heart rate 93, blood pressure 113/63, pulse ox 97% on 30% BiPAP. Repeat inflammatory markers ordered for tomorrow. 10/16 patient examined bedside continues to complain of fatigue, headache, body aches, sores in the mouth. Vitals obtained suggested temp of 97.6 pulse 87 respiratory rate 20 blood pressure 140/62 oxygen saturation 94% on 3 L. Headache not resolve with Tylenol. We will add morphine 2 mg IV every 6 hours. Nystatin added to help with oral thrush. PTOT consulted for generalized weakness and debility. No labs to evaluate. Repeat labs tomorrow 10/17 patient examined bedside complains of substernal chest pain on coughing which is improved with breathing treatment. EKG obtained showed normal sinus rhythm with supraventricular complexes. No change compared to previous EKG. Troponin 2 ordered. Tessalon Perles added for cough. Patient is on Mucinex and guaifenesin codeine syrup for cough. Patient does sound congested and will switch patient's inhaler from Flovent to Symbicort. Vitals reviewed patient is afebrile pulse of 111 respiratory rate 20 blood pressure 119/60, oxygen saturation 94% on 3 L. No morning labs to review. Patient's blood sugar continues to be elevated. We will increase patient's Lantus to 70 units twice a day with mealtime insulin. Neck supple Medrol reduced to 40 every 8. No plan for him to have severe or Tocilizumab per pulmonary. Repeat labs ordered chest x-ray ordered. Patient likely discharge on Tuesday for possible oxygen needs and would need to be discharged home on oxygen. 10/18: Patient was examined at the bedside she is found sitting up in the chair currently on 3 L of O2 via nasal cannula. Patient states that she is breathing much better. She is utilizing a BiPAP machine at night for sleeping. She does have a BiPAP and CPAP machine at home. Patient states that the CPAP machine is not on enough to help with her shortness of breath at night. Patient remains afebrile heart rate 74, respirations 22, blood pressure 155/72, O2 saturation is 91% on 3 L of nasal O2 which is baseline for the patient. We will repeat CBC in the morning. 10/19: Patient was examined at the bedside she is found sitting up in a chair. Patient is currently on 3 L of O2 via nasal cannula pulse ox 94% which is normal for the patient. Patient did have a difficult night last night with increased shortness of breath she was unable to to sleep. She did spend the majority of the night sitting up in the chair. Patient is concerned about her cough and how fatigued she has after coughing. Patient has increased anxiety due to her diagnosis of COVID-19. A lengthy discussion was had regarding the oxygen needs and her long disease related to COVID-19. Questions were answered. It was discussed in length with patient to possibly go to subacute rehab facility. P atient remains afebrile, heart rate 77, respirations 21 and nonlabored with a cough. Pressure 137/75. 10/20: Patient continued to have significant hypoxia, persistent cough, worsening symptoms require multi hours on the BiPAP on daily basis. The patient about subacute rehab consult social secretary patient will be started PTOT if her clinical component is better by Tuesday hopefully be able to send patient to halfway rehab otherwise continue current management and still be aggressive with her COPD and anemia. 10/21: Patient evaluated this morning, sitting up in the bedside chair. Patient has complaints of worsening shortness of breath, she was noted to be hypoxic 75% on 5 L. She was changed to high flow and oxygen did come up to 90%. Will obtain CTA to rule out PE, Acetazolamide 250 mg twice a day was also added. Will also increase her Solu-Medrol to 60 mg every 8 hours. 10/22: Patient has been afebrile, heart rate 91, blood pressure 135/73, pulse ox 91% on high flow nasal cannula 10 L. Patient was on BiPAP briefly last evening. Blood sugars are running high this morning was 100 but otherwise last evening and yesterday afternoon in the 300s up to 461. CTA of the chest shows no evidence of pulmonary embolism. Scattered airspace and interstitial infiltrates throughout both lung phelps. Diamox 250 mg twice daily was started. Patient is currently on Solu-Medrol 60 mg IV every 8 hours. Patient is seen today sitting up in a recliner. Patient utilized BiPAP during the night. She has been working with therapies. Patient had a pulse ox of 90% at rest at 10 L nasal cannula. She stood for 1 minute and pulse ox dropped to 75%. It took patient's 8 minutes to recover to 85% pulse ox. She is complaining of headache and she does have Fioricet and Tylenol 3 available. Patient's nurses been updated the patient is complaining of headache. Family was updated regarding patient's condition yesterday over the phone. 10/23: Patient continues to have significant shortness of breath. She is currently on nonrebreather and nasal cannula 15 L high flow nasal cannula with pulse ox running between 86-100%. Attempt was made to take her off nonrebreather and she dropped down to 80. Patient continues to have cough and significant shortness of breath. All blood sugar remains elevated despite high- dose of insulins. Additional i short acting insulin ordered for this morning. Levemir will be increased to 75 units twice daily. Discussed CODE STATUS with the patient and she wishes to be full code and be intubated. She is unable to make decisions she states that her and daughter can make decisions together. Prognosis is guarded. 10/24: Patient has been afebrile, heart rate 83, blood pressure 146/67, pulse ox 82-99% on HF nasal cannula and intermittent use of NRB. Patient appears to be comfortable at rest in recliner. She appears to be slightly improved from yesterday. Repeat blood work reveals d-dimer of 1.36. Blood sugars are much lower today at breakfast 72 and last evening 111. Levemir to be given this morning and hold short acting, recheck CBG and 2 hours and use scale. Repeat at 2 hours was 299 and patient covered with scale. Repeat chest x-ray reveals chronic changes without acute pulmonary disease. Xanax was increased frequency to qid. REVIEW OF SYSTEMS Constitutional: No fever, no chills, no night sweats. No weight change. Reports sitting weakness and fatigue. No daytime sleepiness. EENT: No headache. No blurred vision or double vision, no loss of vision. No loss of Hearing, no ringing in the ears, no dizziness. No nasal drainage or congestion. No epistaxis. No sore throat. Lungs: Reports shortness of breath continues, reports cough, no sputum production. Reports wheezing. Reports dyspnea with exertion. Cardiovascular: No chest pain, no lower extremity edema. No palpitations. No paroxysmal nocturnal dyspnea. No orthopnea. No lightheadedness or dizziness. No syncopal episodes. Abdominal: Reports upper abdominal pain. No nausea, vomiting. no diarrhea. Reports constipation. No bloody reports tarry stools. Denies bright red bleeding. no loss of appetite. Genitourinary: No dysuria, increased frequency, urgency. No urinary retention. Musculoskeletal: No myalgias. No muscle weakness, no gait dysfunction, no frequent falls. No back pain. No neck pain. Integumentary: No wounds, no lesions. No rash or pruritus. No unusual bruising. No change in hair or nails. Neurologic: No aphasia. No facial droop. No change in mentation. No head injury. No headache. No paralysis. No paresthesia. Psychiatric: No depression. No anxiety. Endocrine: Reported abnormal blood sugars. No weight change. PHYSICAL EXAMINATION Gen: This is a 65-year-old female. She is resting and recliner and a ppears to be mild respiratory distress on nonrebreather and high flow nasal cannula 15 L. HEENT: Head is atraumatic, normocephalic. Pupils equal, round. Sclerae is anicteric. Conjunctiva pale. NECK: Supple. No JVD. No lymphadenopathy. No thyromegaly. LUNGS: Bilateral wheezing. Mild intercostal retractions. Mild accessory muscle usage. HEART: Regular rate and rhythm. Systolic murmur. ABDOMEN: Soft. Bowel sounds are present. No masses. No tenderness. EXTREMITIES: No pedal edema. No calf tenderness. Dorsalis pedis +2 bilaterally. NEUROLOGICAL: Patient is awake, alert and oriented x3. Cranial nerves 2 through 12 are grossly intact. ASSESSMENT AND PLAN 1. Chronic hypoxic respiratory failure with progressive dyspnea secondary to COPD and acute on chronic diastolic heart failure as well as Covid 19 pneumonia, POA. Continue Lasix at 60 mg oral daily, continue Solu-Medrol 60 mg IV every 8 hours. CTA of the chest ruled out pulmonary embolism. Continue Symbicort, Ventolin inhaler 2 puffs 4 times daily scheduled and as needed, Tessalon Perles 200 mg 3 times daily, doxycycline 100 mg twice daily, Mucinex 1200 mg twice daily, Robitussin-AC with codeine every 6 hours as needed. 2. Upper abdominal/lower chest pain with abdominal bloating and early satiety, ruled out gastroparesis. Most likely secondary to constipation and fecal bu rden. Continue Senokot 2 daily at 1800. 3. 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 Continue Protonix 40 mg oral twice daily. Status post Ferrlecit infusion 1. 4. Diabetes mellitus type 2 with diabetic neuropathy uncontrolled with hyperglycemia secondary to steroids. Continue Levemir increased to 75 units twice daily, scheduled NovoLog increased to 30 units before meals and at bedtime, continue NovoLog scale before meals and at bedtime. Continue Januvia 100 mg daily. Hemoglobin A1c in July was 5.2. 5. Debility and worsening condition: The patient advance COPD and recurrent GI bleed along with COVID-19 patient is not doing well physically will continue PTOT and might require subacute rehab for at least 2 weeks. 6. COPD without exacerbation. Continue DuoNeb treatment 4 times daily as needed, Pulmicort 1 mg twice daily, Singulair 10 mg at bedtime. 7. Hypertension. Continue Lasix. 8. Hyperlipidemia. Continue Lipitor 40 mg daily. 9. Obstructive sleep apnea. Continue BiPAP. 10. Hypothyroidism. Continue levothyroxine 125 g daily. 11. Restless leg syndrome. Continue Requip 2 mg twice daily. 12. Recurrent depression. Continue Prozac 20 mg daily. 13. Oral thrush. Completed course of Diflucan and nystatin 14. Acute kidney injury, chronic kidney disease stage III. 15. Hyperkalemia, resolved status post Kayexalate 1. 16. Metabolic alkalosis secondary to overdiuresis. Diamox continued, continue BiPAP. 17. COVID-19. Detected positive. Continue with respiratory support. 18. Situational anxiety. Continue xanax 0.25 mg qid. 19. GI prophylaxis. Protonix twice daily. 20. DVT prophylaxis. Lovenox 40 mg subcu daily. DISCHARGE PLAN Home Impression and plan of care have been directed as dictated by the signing physician. Clarice Colón nurse practitioner acting as scribe for signing physician. Objective - Vital Signs Vital signs: Vital Signs Temp 98 F 10/24/20 07:25 Pulse 83 10/24/20 07:25 Resp 20 10/24/20 07:25 BP 146/67 10/24/20 07:25 Pulse Ox 99 10/24/20 07:39 Intake & Output 10/23/20 10/24/20 10/24/20 18:59 06:59 18:59 Intake Total 520 480 300 Output Total 300 300 Balance 220 180 300 Weight 111.6 kg Intake: Oral 520 480 300 Output: Urine 300 300 Other: Voiding Method Bedside Commode Bedside Commode # Voids 1 1 # Bowel Movements 1 - Labs CBC & Chem 7: 10/21/20 05:46 10/21/20 05:46 Labs: Abnormal Lab Results - Last 24 Hours (Table) 10/23/20 10/23/20 10/23/20 Range/Units 12:21 15:13 17:23 D-Dimer (<0.60) mg/L FEU POC Glucose (mg/dL) 339 H 336 H 149 H (75-99) mg/dL 10/23/20 10/24/20 10/24/20 Range/Units 20:03 04:43 07:37 D-Dimer 1.36 H (<0.60) mg/L FEU POC Glucose (mg/dL) 111 H 72 L (75-99) mg/dL
[2020-10-24 10:12] LABS: Glucose,Whole Blood 299 mg/dL (75-99)
[2020-10-24] MEDS ORDERED: INSULIN ASPART (NovoLOG) 100 UNIT/ML VIAL SQ ONE (10:14)
[2020-10-24 12:01] LABS: Glucose,Whole Blood 261 mg/dL (75-99)
[2020-10-24] MEDS: BUTALB/APAP/CAFF 50-325-40MG TAB PO PRN ×3 (12:06→21:28)
[2020-10-24] MEDS: BENZOCAINE/MENTHOL LOZENG 1 EACH LOZENGE MUCOUS MEM PRN (12:07)
--- NOTE | 2020-10-24 13:08 | P.PN ---
Subjective Progress Note Date: 10/24/20 Principal diagnosis: Acute hypoxic respiratory failure secondary to COVID-19 pneumonia The patient is seen today 10/19/2020 in follow-up on the regular medical floor. She is currently sitting up in a chair at the bedside. Awake and alert in no acute distress. She states she has been having ongoing issues with shortness of breath on exertion and cough. She has been intolerant the BiPAP last night. She is on oxygen at 4 L/m per nasal cannula with O2 saturation in the mid 90s. She's afebrile. White count 14.4. Hemoglobin 7.9. D-dimer 0.76. Glucose 197. She remains on IV Solu-Medrol, albuterol, Spiriva, Singulair and Symbicort along with Tessalon Perles. On oral diuretics. Remains on vitamin supplements. Lovenox for DVT prophylaxis. On 10/20/2020 patient seen in follow-up on medical surgical floor, she had just returned from the bathroom, where she ambulated on 5 L of oxygen, and her nasal cannula has multiple extensions, and with exertion patient becomes very short of breath, her pulse ox is 73% upon returning to the recliner from the bathroom, and patient is dyspnea, she was placed on BiPAP support with pressures of 12 and 6 and 30%. Patient does get very dyspneic and lightheaded when she desats with ambulation, and she was told to use the bedside commode. She's been afebrile, hemodynamically she's been stable, and today's chest x-ray shows coarse interstitial and scattered airspace infiltrates without significant change. Patient remains on oral Lasix 60 mg twice daily, she is on doxycycline for empiric antibiotic coverage, she is on Symbicort, albuterol, and Spiriva, she is on IV steroids, and she is on Zaroxolyn 2.5 mg on Tuesday schedule. Her weight is down by 1.5 kg in the last few days. Procalcitonin level was negative Progress note dated 10/21/2020. 65-year-old female, known to our service. The patient was admitted back on October 06. The patient goes back and forth between nasal cannula, and BiPAP. Addie goel has chronic hypoxemic and hypercapnic respiratory failure. Currently, she is on 5 L nasal cannula, with a saturation of 90%. She's doing reasonably well. Blood pressure is 174/79, respiratory rate 16, heart rate 91, and temperature 98.2. Labs from today include a white count of 16.08 hemoglobin 8.4, hematocrit 31.8, and a platelet count of 224,000. Sodium potassium chloride all normal. Carbon dioxide is 39, anion gap is 4, BUN 50, creatinine 1.0. Chest x-ray shows primarily chronic changes, without significant change compared to an x-ray done on October 15. The patient is seen today 10/22/2020 in follow-up on the regular medical floor. She is currently sitting up in a chair at the bedside. Awake and alert. Mild respiratory distress. Dyspneic with minimal conversation and minimal exertion. She is currently on 15 L high flow nasal cannula to maintain O2 saturations high 80s low 90s. She is alternating with BiPAP 12/6 and 45% FiO2. She did test positive for COVID-19 on 10/14/2020. Yesterday's CT angiogram ruled out pulmonary embolism. There is scattered airspace and interstitial infiltrates bilaterally. She remains on IV Solu-Medrol, Symbicort, Spiriva, albuterol,, Lovenox. On oral diuretics and Diamox. Antibiotics in the form of doxycycline. Vitamin supplements. Patient is seen today 10/23/2020 follow-up on the regular medical floor. She is currently sitting up in a chair at the bedside. Resting comfortably. Currently on 15 L high flow nasal cannula with O2 saturation at 97%. Occasionally she at the nonrebreather mask when feeling more short of breath. Blood glucose 339. She remains on IV Solu-Medrol, Symbicort, Spiriva, albuterol,, Lovenox. On oral diuretics and Diamox. Antibiotics in the form of doxycycline. Vitamin supplements. Patient was reevaluated today on 10/24/2020, patient remains on high flow oxygen, she is presently on 15 L high flow, and on non-rebreather mask, and her O2 saturation is in the mid 90s. Actually she is 96 at present. Patient tells me that she feels better when the nonrebreather mask is placed, and on 15 L alone, patient does not feel good, she gets panicky and she gets more short of breath. And according to her her O2 saturation drifts down to the 80s. Patient is sitting in a chair, very comfortable, and in no distress. She has BiPAP at bedside, but she is not using it at present. She is better compared to the last a few days. Blood work showed a d-dimer of 1.36, patient remains on Xanax for a nxiety symptoms and panic-like attacks. No labs done today except a d-dimer of 1.36, and a blood sugar of 261. Chest x-ray continues to show chronic changes and scatteredinfiltrates bilaterally. Objective - Vital Signs Vital signs: Vital Signs Temp 98 F 10/24/20 07:25 Pulse 83 10/24/20 07:25 Resp 20 10/24/20 08:00 BP 146/67 10/24/20 07:25 Pulse Ox 99 10/24/20 07:39 Intake & Output 10/23/20 10/24/20 10/24/20 18:59 06:59 18:59 Intake Total 520 480 300 Output Total 300 300 Balance 220 180 300 Weight 111.6 kg Intake: Oral 520 480 300 Output: Urine 300 300 Other: Voiding Method Bedside Commode Bedside Commode Bedside Commode # Voids 1 1 1 # Bowel Movements 1 - Exam GENERAL EXAM: Revealed 65-year-old female obese, on 15 L high flow and a non- rebreather mask. In no distress. HEAD: Normocephalic. Atraumatic. EENT: PERRLA, EOMI, nonicteric, no neck masses, short obese neck, no stridor. CHEST: No chest wall deformity. LUNGS: Crackles at the bases. And occasional rhonchi on forced expiratory maneuver. CVS: Distant S1 and S2, no S3 gallop. ABDOMEN: Obese, soft, nontender, no megaly no rebound. SKIN: No rashes CENTRAL NERVOUS SYSTEM: Alert and oriented 3 in no gross focal deficits. EXTREMITIES: There is 1-2+ peripheral edema. No clubbing, no cyanosis. Peripheral pulses are intact. Psychiatric: Normal mood, affect and normal mental status examination. - Labs CBC & Chem 7: 10/21/20 05:46 10/21/20 05:46 Labs: Abnormal Lab Results - Last 24 Hours (Table) 10/23/20 10/23/20 10/23/20 Range/Units 15:13 17:23 20:03 D-Dimer (<0.60) mg/L FEU POC Glucose (mg/dL) 336 H 149 H 111 H (75-99) mg/dL 10/24/20 10/24/20 10/24/20 Range/Units 04:43 07:37 10:02 D-Dimer 1.36 H (<0.60) mg/L FEU POC Glucose (mg/dL) 72 L 299 H (75-99) mg/dL 10/24/20 Range/Units 11:59 D-Dimer (<0.60) mg/L FEU POC Glucose (mg/dL) 261 H (75-99) mg/dL Assessment and Plan Assessment: Impression: Acute on chronic hypoxic respiratory failure secondary to acute COVID-19 pneumonia, acute exacerbation of COPD, and acute diastolic congestive heart failure. History of COPD, patient is maintained on oxygen at home at 2 L. Chronic hypoxic respiratory failure secondary to COPD. Obstructive sleep apnea syndrome. Type 2 diabetes with diabetic neuropathy History of GI bleeding and chronic anemia Benign essential hypertension History of depression Acute kidney injury Hypothyroidism Recommendation: Continue present treatment plan, titrate high flow oxygen accordingly and maintain O2 saturation above 89%. Patient was outside the window for REM. Remains on IV steroids, and on bronchodilators as well as diuretics. Continue steroids. Continue the COVID-19 cocktail. Chest x-ray was reviewed. Continues to have bilateral infiltrates. Continue bronchodilators and diuretics. Continue close monitoring of sugars and treat accordingly. Not ready for any discharge planning. We'll continue to follow. Time with Patient: Less than 30
[2020-10-24 17:08] LABS: Glucose,Whole Blood 120 mg/dL (75-99)
[2020-10-24] MEDS: SENNOSIDES-DOCUSATE SODIUM 1 EACH TAB PO SCH (17:09)
[2020-10-24] MEDS: guaiFENesin-Coden 100-10MG/5ML 10 ML CUP PO PRN (17:10)
[2020-10-24 20:10] LABS: Glucose,Whole Blood 98 mg/dL (75-99)
[2020-10-24] MEDS: MONTELUKAST 10 MG TAB PO SCH (21:13)
[2020-10-25 02:02] LABS: Glucose,Whole Blood 189 mg/dL (75-99)
[2020-10-25] MEDS: MORPHINE SULFATE 2 MG/ML SYRINGE IVP PRN ×3 (03:13→23:19)
[2020-10-25 06:08] LABS: Glucose,Whole Blood 303 mg/dL (75-99)
[2020-10-25] MEDS: INSULIN ASPART (NovoLOG) 100 UNIT/ML VIAL SQ SCH ×10 (06:14→21:15)
[2020-10-25] MEDS: PANTOPRAZOLE 40 MG TABLET PO SCH ×2 (06:22→16:00)
[2020-10-25] MEDS: LEVOTHYROXINE 125 MCG TAB PO SCH (06:22)
[2020-10-25] MEDS: INSULIN DETEMIR (LEVEMIR) 100 UNIT/ML SYR SQ SCH ×2 (06:22→21:15)
[2020-10-25] MEDS: ENOXAPARIN 40 MG/0.4 ML SYRINGE SQ SCH (08:47)
[2020-10-25] MEDS: methylPREDNISolone SOD SUCCI 125 MG/2 ML VIAL IV SCH ×3 (08:48→23:20)
[2020-10-25] MEDS: BENZONATATE 100 MG CAP PO SCH ×3 (08:48→21:16)
[2020-10-25] MEDS: BENZOCAINE/MENTHOL LOZENG 1 EACH LOZENGE MUCOUS MEM PRN ×2 (08:49→16:00)
[2020-10-25] MEDS: ALPRAZolam 0.25 MG TAB PO PRN ×2 (08:49→21:17)
[2020-10-25] MEDS: FUROSEMIDE 20 MG TAB PO SCH ×2 (08:49→15:59)
[2020-10-25] MEDS: ASCORBIC ACID 500 MG TAB PO SCH (08:49)
[2020-10-25] MEDS: acetaZOLAMIDE 250 MG TAB PO SCH ×2 (08:50→21:14)
[2020-10-25] MEDS: BUTALB/APAP/CAFF 50-325-40MG TAB PO PRN ×3 (08:50→21:17)
[2020-10-25] MEDS: CHOLECALCIFEROL 25 MCG (1000 IU) TABLET PO SCH (08:50)
[2020-10-25] MEDS: FLUoxetine HCL 20 MG CAP PO SCH (08:50)
[2020-10-25] MEDS: PREGABALIN 100 MG CAP PO SCH ×2 (08:50→21:20)
[2020-10-25] MEDS: guaiFENesin 600 MG TABLET.ER PO SCH ×2 (08:51→21:14)
[2020-10-25] MEDS: LINAGLIPTIN 5 MG TABLET PO SCH (08:51)
[2020-10-25] MEDS: ZINC SULFATE 220 MG CAP PO SCH (08:51)
[2020-10-25] MEDS: NYSTATIN 100,000 UNIT/ML SUSP 500,000 UNIT/5 ML CUP PO SCH ×4 (08:53→21:17)
[2020-10-25] MEDS: ALBUTEROL HFA INHALER INHALATION SCH ×4 (09:07→19:36)
[2020-10-25] MEDS: TIOTROPIUM 2.5 MCG INHALER INHALATION SCH (09:07)
[2020-10-25] MEDS: SYMBICORT 160-4.5 MCG INHALER INHALATION SCH ×2 (09:07→19:36)
--- NOTE | 2020-10-25 10:20 | P.PN ---
Subjective Progress Note Date: 10/25/20 HISTORY OF PRESENT ILLNESS This is a 65-year-old female patient of Dr. Deras with past medical history significant for heart failure, COPD, chronic hypoxic respiratory failure on home O2 at 2 L nasal cannula and obstructive sleep apnea on BiPAP support at bedtime, diabetes mellitus type 2 with diabetic neuropathy, chronic diastolic heart failure, valvular heart disease, hypertension, hypothyroidism, GI bleed with anemia. Patient has had multiple admissions and multiple endoscopies for GIB and anemia. 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 The bleeding seems to be stable since that time. They, patient presented to the hospital due to chest pain in the midsternal area across her chest seems to be worse after she eats it was hurting after she had b reakfast this morning. She complains of shortness of breath with exertion that is worse than the last time she was admitted. She states her stools have been normal. She does complain of abdominal distention and fullness after eating. Patient presented to the [facility] emergency center for evaluation. Patient was found to be afebrile, heart rate 71, blood pressure 140/61, pulse ox 100% on oxygen. WBC 14.8, hemoglobin 8.2 which is stable for this patient. Platelet count is 310. Sodium 138, potassium 4.2, chloride 97, CO2 35, BUN 39 and creatinine 1.34 which is also patient's baseline. Blood sugar 207. D-dimer 0.89. Alkaline phosphatase 160. Troponin negative. Pro- BNP 2570. Lactic acid 1.0. Coronavirus PCR not detected. EKG sinus rhythm with nonspecific ST-T wave changes. Chest x-ray reveals vascular and interstitial markings prominent in the mid to lower lungs bilaterally similar to previous. Consider heart failure versus interstitial infiltrate. CAT scan of the abdomen and pelvis without contrast revealed hepatomegaly and 19.6 cm. Correlate with LFTs and risk factors for underlying hepatocellular disease. 1.3 cm right common iliac chain lymph node is enlarged. Left inguinal femoral chain lymph nodes are borderline enlarged. Findings probably reactive postinflammatory. 1.1 cm indeterminate right adrenal nodule. Moderate stool burden and generalized colonic diverticulosis. Tiny hiatal hernia. Consult was admitted for cardiology and patient has been seen by Dr. Yang for progressive dyspnea secondary to combination of COPD and element of heart failure with preserved systolic function. Plan to continue IV diuretics for 24 hours. 10/07: She has been afebrile, heart rate 86, blood pressure 101/46, pulse ox 90% on 4 L nasal cannula. WBC 11, hemoglobin 7.9, platelet count 319. Sodium 138, potassium 4.3, chloride 95, CO2 37, BUN 31 and creatinine 1.02. Blood sugars have been running 185 up to 405 at its 4 PM yesterday. Patient missed her morning dose of Levemir yesterday. Patient underwent gastric emptying study which was negative for gastroparesis. Patient is continued on IV Lasix at 40 mg every 12 hours. 10/08: Patient is afebrile, heart rate 75, blood pressure 146/57, pulse ox 92% on 3 L nasal cannula. Repeat blood work reveals sodium 138, potassium 4.9, chloride 96, CO2 37, BUN 38 creatinine 1.13. Blood sugars have been running between 211 and 307. Hemoglobin A1c from July is 5.2. Patient has increased dyspnea today along with a dry cough. She complains of shortness of breath with minimal activity, positive orthopnea. Patient was having issues with constipation and last evening and Senokot was added and she states she has had lots of bowel movements. Cardiology increase Lasix every 8 hours. Also Solu-Medrol added. 10/09: Pulse ox is 94% on 3 L nasal cannula. Patient has been afebrile, heart rate 86, blood pressure 134/63. Patient continues to have shortness of breath and nonproductive cough. She is wheezing. Positive shortness of breath with minimal activity. CTA of the chest has been ordered to rule out PE. Blood sugar at 0 was 604 and also high yesterday afternoon, patient received additional NovoLog on top of scale. Levemir 42 units subcu ordered this morning versus her normal dose of 30. Scheduled NovoLog will be increased to 6 units with meals. Solu-Medrol will be decreased to every 12 hours Repeat blood work reveals sodium 131, potassium 5.9, chloride 89, CO2 38, BUN 41 and creatinine 1.15. 10/10: CTA of the chest was suboptimal study without central pulmonary embolism. Cardiomegaly with mild interstitial and alveolar edema raises concern for heart failure exacerbation. No focal consolidation. She is currently on Lasix 40 mg IV 3 times daily. She continues to have shortness of breath, dyspnea with exertion and lower extremity edema. Lasix will be decreased tomorrow to 60 mg oral twice daily. Blood sugars continue to be in the 400s and 500s. She has received additional NovoLog plus scale. Levemir will be increased to 45 units twice daily and scheduled NovoLog increased to 12 units with meals and at at bedtime. Solu-Medrol was discontinued and patient to start prednisone tomorrow. Pulse ox is 95% on 3 L nasal cannula. She's been afebrile, heart rate 60, blood pressure 131/54. Repeat blood work reveals WBC 15.8, hemoglobin 7.5, platelet count 388. Sodium was 129, potassium 6.1 and one dose of Kayexalate 30 mg ordered, oral prednisone scheduled was discontinued and Aldactone decreased to 12.5 mg daily. Chloride 84, CO2 39, BUN 57 and creatinine 1.41. 10/11 and patient examined bedside. Continue have shortness of breath on exertion. For some mild is continued at 40 IV every 8 hours per cardiology. On evaluation as patient's blood work today potassium is improved to 5.1 chloride is 85 bicarb 42 BUN 64 creatinine 1.34 glucose remains high at 444. Lantus increased to 50 twice a day today and NovoLog increased to 15 units with meals continue and follow with sliding scale. Solu-Medrol switched to prednisone 40 mg daily the patient labs tomorrow 10/12 patient examined at bedside. As shortness of breath on exertion and fatigue. Vitals checked in the room such as patient's systolic over 80s. Vitals as checked at 1 PM suggest blood pressure 125/71 with oxygen saturation of 96% on 8 L (55 years. 16 hold patient's blood pressure medication and Lasix today as patient's blood pressure is on the lower side. ABG to be obtained with a pH of 7.34 pCO2 of 81 pO2 59 and bicarb 43 appears to be secondary to metabolic alkalosis secondary to overdiuresis.. Patient to be placed on BiPAP for COPD exacerbation. Hold Lasix and metolazone. Continue Levemir at the current dose of 50 subcu twice a day with insulin aspart 15 subcu before meals and at bedtime. 10/13: Seen today in follow-up. Her hemoglobin is 7.4 and one dose of Ferrlecit IV will be ordered. Lasix will be resumed today at 60 mg oral. Patient utilizes BiPAP last night. She has gotten encouraged to use this during the day as well. 10/14: Patient noted to have a hacking barking cough. She states it started around 1:00 this morning and has been up all night coughing. She denies having any fever or chills. She denies any nausea or vomiting. A rapid Covid test was ordered which surprisingly came back positive. She has been afebrile, heart rate 91, blood pressure 148/63, pulse ox 94% on 2 L nasal cannula. WBC 9.1, hemoglobin 7.6, platelet count 297. D-dimer 0.83, LDH 669. C-reactive protein 1.6. Sodium 133, potassium 4.6, chloride 90, CO2 34, BUN 49 and creatinine 1.31. She is followed by pulmonary medicine. 10/15: Patient has not been able to sleep since 2 AM. She's experienced increased dyspnea. We have documented a 93% pulse ox on 2 L nasal cannula but this does not reflect patient's condition at the time. Patient had increasing dyspnea along with feeling tired and weak. Patient was transitioned to BiPAP and continues to have dyspnea. She has been utilizing BiPAP at nighttime and somewhat during the day for high CO2 has been improving Patient noted to have wheezing and will be placed back on Solu-Medrol 60 mg IV every 6 hours. We are also increasing Levemir and scheduled NovoLog to cover for hyperglycemia. She will be transferred to the cardiac stepdown unit and pulmonary medicine to be notified of patient's condition. Patient has been afebrile, heart rate 93, blood pressure 113/63, pulse ox 97% on 30% BiPAP. Repeat inflammatory markers ordered for tomorrow. 10/16 patient examined bedside continues to complain of fatigue, headache, body aches, sores in the mouth. Vitals obtained suggested temp of 97.6 pulse 87 respiratory rate 20 blood pressure 140/62 oxygen saturation 94% on 3 L. Headache not resolve with Tylenol. We will add morphine 2 mg IV every 6 hours. Nystatin added to help with oral thrush. PTOT consulted for generalized weakness and debility. No labs to evaluate. Repeat labs tomorrow 10/17 patient examined bedside complains of substernal chest pain on coughing which is improved with breathing treatment. EKG obtained showed normal sinus rhythm with supraventricular complexes. No change compared to previous EKG. Troponin 2 ordered. Tessalon Perles added for cough. Patient is on Mucinex and guaifenesin codeine syrup for cough. Patient does sound congested and will switch patient's inhaler from Flovent to Symbicort. Vitals reviewed patient is afebrile pulse of 111 respiratory rate 20 blood pressure 119/60, oxygen saturation 94% on 3 L. No morning labs to review. Patient's blood sugar continues to be elevated. We will increase patient's Lantus to 70 units twice a day with mealtime insulin. Neck supple Medrol reduced to 40 every 8. No plan for him to have severe or Tocilizumab per pulmonary. Repeat labs ordered chest x-ray ordered. Patient likely discharge on Tuesday for possible oxygen needs and would need to be discharged home on oxygen. 10/18: Patient was examined at the bedside she is found sitting up in the chair currently on 3 L of O2 via nasal cannula. Patient states that she is breathing much better. She is utilizing a BiPAP machine at night for sleeping. She does have a BiPAP and CPAP machine at home. Patient states that the CPAP machine is not on enough to help with her shortness of breath at night. Patient remains afebrile heart rate 74, respirations 22, blood pressure 155/72, O2 saturation is 91% on 3 L of nasal O2 which is baseline for the patient. We will repeat CBC in the morning. 10/19: Patient was examined at the bedside she is found sitting up in a chair. Patient is currently on 3 L of O2 via nasal cannula pulse ox 94% which is normal for the patient. Patient did have a difficult night last night with increased shortness of breath she was unable to to sleep. She did spend the majority of the night sitting up in the chair. Patient is concerned about her cough and how fatigued she has after coughing. Patient has increased anxiety due to her diagnosis of COVID-19. A lengthy discussion was had regarding the oxygen needs and her long disease related to COVID-19. Questions were answered. It was discussed in length with patient to possibly go to subacute rehab facility. Facundo woodward remains afebrile, heart rate 77, respirations 21 and nonlabored with a cough. Pressure 137/75. 10/20: Patient continued to have significant hypoxia, persistent cough, worsening symptoms require multi hours on the BiPAP on daily basis. The patient about subacute rehab consult pediatric social worker patient will be started PTOT if her clinical component is better by Tuesday hopefully be able to send patient to half-way rehab otherwise continue current management and still be aggressive with her COPD and anemia. 10/21: Patient evaluated this morning, sitting up in the bedside chair. Patient has complaints of worsening shortness of breath, she was noted to be hypoxic 75% on 5 L. She was changed to high flow and oxygen did come up to 90%. Will obtain CTA to rule out PE, Acetazolamide 250 mg twice a day was also added. Will also increase her Solu-Medrol to 60 mg every 8 hours. 10/22: Patient has been afebrile, heart rate 91, blood pressure 135/73, pulse ox 91% on high flow nasal cannula 10 L. Patient was on BiPAP briefly last evening. Blood sugars are running high this morning was 100 but otherwise last evening and yesterday afternoon in the 300s up to 461. CTA of the chest shows no evidence of pulmonary embolism. Scattered airspace and interstitial infiltrates throughout both lung phelps. Diamox 250 mg twice daily was started. Patient is currently on Solu-Medrol 60 mg IV every 8 hours. Patient is seen today sitting up in a recliner. Patient utilized BiPAP during the night. She has been working with therapies. Patient had a pulse ox of 90% at rest at 10 L nasal cannula. She stood for 1 minute and pulse ox dropped to 75%. It took patient's 8 minutes to recover to 85% pulse ox. She is complaining of headache and she does have Fioricet and Tylenol 3 available. Patient's nurses been updated the patient is complaining of headache. Family was updated regarding patient's condition yesterday over the phone. 10/23: Patient continues to have significant shortness of breath. She is currently on nonrebreather and nasal cannula 15 L high flow nasal cannula with pulse ox running between 86-100%. Attempt was made to take her off nonrebreather and she dropped down to 80. Patient continues to have cough and significant shortness of breath. All blood sugar remains elevated despite high- dose of insulins. Additional i short acting insulin ordered for this morning. Levemir will be increased to 75 units twice daily. Discussed CODE STATUS with the patient and she wishes to be full code and be intubated. She is unable to make decisions she states that her and daughter can make decisions together. Prognosis is guarded. 10/24: Patient has been afebrile, heart rate 83, blood pressure 146/67, pulse ox 82-99% on HF nasal cannula and intermittent use of NRB. Patient appears to be comfortable at rest in recliner. She appears to be slightly improved from yesterday. Repeat blood work reveals d-dimer of 1.36. Blood sugars are much lower today at breakfast 72 and last evening 111. Levemir to be given this morning and hold short acting, recheck CBG and 2 hours and use scale. Repeat at 2 hours was 299 and patient covered with scale. Repeat chest x-ray reveals chronic changes without acute pulmonary disease. Xanax was increased frequency to qid. 10/25: Patient's hospital sitting up in chair in no acute distress currently on a nonrebreather that is intermittent. She is also on high flow nasal O2. Patient appears to be comfortable. Patient states that sure breathing has improved since yesterday. The only time she feels short of breath is after she has been coughing. She remains afebrile, heart rate 93, respirations 28, blood pressure 144/62 with a pulse ox of 92% on 15 L nonrebreather REVIEW OF SYSTEMS Constitutional: No fever, no chills, no night sweats. No weight change. Reports sitting weakness and fatigue. No daytime sleepiness. EENT: No headache. No blurred vision or double vision, no loss of vision. No loss of Hearing, no ringing in the ears, no dizziness. No nasal drainage or congestion. No epistaxis. No sore throat. Lungs: Reports shortness of breath continues, reports cough, no sputum production. Reports wheezing. Reports dyspnea with exertion. Cardiovascular: No chest pain, no lower extremity edema. No palpitations. No paroxysmal nocturnal dyspnea. No orthopnea. No lightheadedness or dizziness. No syncopal episodes. Abdominal: Reports upper abdominal pain. No nausea, vomiting. no diarrhea. Reports constipation. No bloody reports tarry stools. Denies bright red bleeding. no loss of appetite. Genitourinary: No dysuria, increased frequency, urgency. No urinary retention. Musculoskeletal: No myalgias. No muscle weakness, no gait dysfunction, no frequent falls. No back pain. No neck pain. Integumentary: No wounds, no lesions. No rash or pruritus. No unusual bruising. No change in hair or nails. Neurologic: No aphasia. No facial droop. No change in mentation. No head injury. No headache. No paralysis. No paresthesia. Psychiatric: No depression. No anxiety. Endocrine: Reported abnormal blood sugars. No weight change. PHYSICAL EXAMINATION Gen: This is a 65-year-old female. She is resting and recliner and appears to be mild respiratory distress on nonrebreather and high flow nasal cannula 15 L. HEENT: Head is atraumatic, normocephalic. Pupils equal, round. Sclerae is anicteric. Conjunctiva pale. NECK: Supple. No JVD. No lymphadenopathy. No thyromegaly. LUNGS: Bilateral wheezing. Mild intercostal retractions. Mild accessory muscle usage. HEART: Regular rate and rhythm. Systolic murmur. ABDOMEN: Soft. Bowel sounds are present. No masses. No tenderness. EXTREMITIES: No pedal edema. No calf tenderness. Dorsalis pedis +2 bilaterally. NEUROLOGICAL: Patient is awake, alert and oriented x3. Cranial nerves 2 through 12 are grossly intact. ASSESSMENT AND PLAN 1. Chronic hypoxic respiratory failure with progressive dyspnea secondary to COPD and acute on chronic diastolic heart failure as well as Covid 19 pneumonia, POA. Continue Lasix at 60 mg oral daily, continue Solu-Medrol 60 mg IV every 8 hours. CTA of the chest ruled out pulmonary embolism. Continue Symbicort, Ventolin inhaler 2 puffs 4 times daily scheduled and as needed, Tessalon Perles 200 mg 3 times daily, doxycycline 100 mg twice daily, Mucinex 1200 mg twice daily, Robitussin-AC with codeine every 6 hours as needed. 2. Upper abdominal/lower chest pain with abdominal bloating and early satiety, ruled out gastroparesis. Most likely secondary to constipation and fecal burden. Continue Senokot 2 daily at 1800. 3. 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 Continue Protonix 40 mg oral twice daily. Status post Ferrlecit infusion 1. 4. Diabetes mellitus type 2 with diabetic neuropathy uncontrolled with hyperglycemia secondary to steroids. Continue Levemir increased to 75 units twice daily, scheduled NovoLog increased to 30 units before meals and at bedtime, continue NovoLog scale before meals and at bedtime. Continue Januvia 100 mg daily. Hemoglobin A1c in July was 5.2. 5. Debility and worsening condition: The patient advance COPD and recurrent GI bleed along with COVID-19 patient is not doing well physically will continue PTOT and might require subacute rehab for at least 2 weeks. 6. COPD without exacerbation. Continue DuoNeb treatment 4 times daily as needed, Pulmicort 1 mg twice daily, Singulair 10 mg at bedtime. 7. Hypertension. Continue Lasix. 8. Hyperlipidemia. Continue Lipitor 40 mg daily. 9. Obstructive sleep apnea. Continue BiPAP. 10. Hypothyroidism. Continue levothyroxine 125 g daily. 11. Restless leg syndrome. Continue Requip 2 mg twice daily. 12. Recurrent depression. Continue Prozac 20 mg daily. 13. Oral thrush. Completed course of Diflucan and nystatin 14. Acute kidney injury, chronic kidney disease stage III. 15. Hyperkalemia, resolved status post Kayexalate 1. 16. Metabolic alkalosis secondary to overdiuresis. Diamox continued, continue BiPAP. 17. COVID-19. Detected positive. Continue with respiratory support. 18. Situational anxiety. Continue xanax 0.25 mg qid. 19. GI prophylaxis. Protonix twice daily. 20. DVT prophylaxis. Lovenox 40 mg subcu daily. DISCHARGE PLAN Home Impression and plan of care have been directed as dictated by the signing physician. Brandy Villatoro nurse practitioner acting as scribe for signing physician. Objective - Vital Signs Vital signs: Vital Signs Temp 99.4 F 10/25/20 08:55 Pulse 93 10/25/20 08:55 Resp 28 H 10/25/20 08:55 BP 144/62 10/25/20 08:55 Pulse Ox 92 L 10/25/20 08:55 Intake & Output 10/24/20 10/25/20 10/25/20 18:59 06:59 18:59 Intake Total 840 200 Output Total 1600 1300 Balance 840 -1600 -1100 Intake: Oral 840 200 Output: Urine 1600 1300 Other: Voiding Method Bedside Commode Bedside Commode # Voids 1 1 - Labs CBC & Chem 7: 10/21/20 05:46 10/21/20 05:46 Labs: Abnormal Lab Results - Last 24 Hours (Table) 10/24/20 10/24/20 10/25/20 Range/Units 11:59 17:00 02:00 POC Glucose (mg/dL) 261 H 120 H 189 H (75-99) mg/dL 10/25/20 Range/Units 06:08 POC Glucose (mg/dL) 303 H (75-99) mg/dL
[2020-10-25 11:53] LABS: Glucose,Whole Blood 257 mg/dL (75-99)
[2020-10-25] MEDS: DOXYCYCLINE 100 MG CAP PO SCH ×2 (12:29→21:14)
--- NOTE | 2020-10-25 12:49 | P.PN ---
Subjective Progress Note Date: 10/25/20 Principal diagnosis: Shortness of breath. 65-year-old female patient was hospitalized for shortness of breath. The patient was originally admitted to the hospital on 09/26/2020 on seeing this patient in consultation for dyspnea today. She is known to have multiple medical problems and comorbidities. 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 The patient is morbidly obese and she has COPD along with chronic hypoxic respiratory failure and she uses a nocturnal BiPAP device. She has obstructive sleep apnea. She has hypothyroidism and chronic edema lower extremities. During this current admission, the patient presented with some shortness of breath and a CT angiogram of the chest was done on 10/09/2020 and the CTA showed suboptimal study regarding the possibility of pulmonary embolism, nevertheless, there was cut or megaly and mild interstitial and alveolar edema concerning for underlying congestion heart failure. The chest x-rays also showing cardiomegaly with pulmonary vascular congestion. Patient is currently on Lasix 60 mg by mouth twice a day. The patient is also on prednisone 40 mg by mouth daily as part of a burst taper. I see that she was also taking Diamox and currently the Diamox is on hold. She'll DuoNeb neb achievements [id number]. Outpatient medications of been ordered resume. Her creatinine and creatinine is at 1.5 and the patient has a component of an acute kidney injury knowing that her baseline renal function was stable. She was also on Zaroxolyn which was also placed on hold. Progress note dated 10/15/2020. This is a 65-year-old female, well-known to our service. The patient was admitted back on October 06. She was seen by Dr. Gomes on October 12. More recently, the patient's saturations became low, she was more short of breath. The patient was transferred over or will be transferred over to [facility]. Currently, she is on BiPAP with IPAP of 12, EPAP of 6. FiO2 is 30%. As I mention, the patient was admitted on October 06. She apparently also tested positive for COVID on October 14. Currently she is on the pediatrics floor. Chest x-ray showed diffuse interstitial infiltrates, consistent with either interstitial edema, or pneumonitis secondary to coronavirus. Most recent labs were from October 14, with a white count 9.1, hemoglobin 7.6, hematocrit 28.2, and platelet count 297,000. D-dimer was 0.83. Sodium 133, potassium 4.6, chlorides 90, CO2 34, anion gap 9, BUN 49, creatinine 1.31. LDH 669, C-reactive protein 1.6. Progress note dated 10/16/2020. 65-year-old female, well-known to our service. The patient was seen by my partner initially, but at that time was doing relatively well, and we did not continue to see the patient. The patient was admitted back on October 06. She was seen by Dr. Gomes, on October 12. We were asked to re-see her, because she was more short of breath. She was placed on BiPAP at 12/6 and 30%. Yesterday she was quite lethargic and sleepy. Currently, she is on 3 L. She sitting at the bedside. She feels much better. She is much more awake and alert. She is a CO2 retainer, and if she gets excess oxygen, or any sedatives, hypnotics, narcotics, or tranquilizers, she will have worsening hypercapnic respiratory failure and will become very somnolent/lethargic. Currently labs include a white count 9.2, hemoglobin 7.9, hematocrit 30.5, and platelet count a 66,000. D-dimer is 0.86. Sodium 131, potassium 5.1, chlorides 91, CO2 28, anion gap is 12, BUN 43, and creatinine 1.24. LDH 906 and C-reactive protein is 2.8. She did test positive for coronavirus. Progress note dated 10/17/2020. 65-year-old female, well-known to our service. The patient was initially admitted back on October 06. She was seen by my partner on October 12. We saw her again on October 15 and . She was initially on the pediatric floor, and then moved to the [address] [place] [address]. Currently, she is not on any IV fluids. He is receiving nasal O2 at 3 L. She did not use of BiPAP last night. She is currently being evaluated by the hospital service for chest pain. There are no new labs to report. No new x-rays. From the pulmonary standpoint, she appears to be relatively stable. On 10/20/2020 patient seen in follow-up on medical surgical floor, she had just returned from the bathroom, where she ambulated on 5 L of oxygen, and her nasal cannula has multiple extensions, and with exertion patient becomes very short of breath, her pulse ox is 73% upon returning to the recliner from the bathroom, and patient is dyspnea, she was placed on BiPAP support with pressures of 12 and 6 and 30%. Patient does get very dyspneic and lightheaded when she desats with ambulation, and she was told to use the bedside commode. She's been afebrile, hemodynamically she's been stable, and today's chest x-ray shows coarse interstitial and scattered airspace infiltrates without significant change. Patient remains on oral Lasix 60 mg twice daily, she is on doxycycline for empiric antibiotic coverage, she is on Symbicort, albuterol, and Spiriva, she is on IV steroids, and she is on Zaroxolyn 2.5 mg on Tuesday schedule. Her weight is down by 1.5 kg in the last few days. Procalcitonin level was negative Progress note dated 10/21/2020. 65-year-old female, known to our service. The patient was admitted back on October 06. The patient goes back and forth between nasal cannula, and BiPAP. She has chronic hypoxemic and hypercapnic respiratory failure. Currently, she is on 5 L nasal cannula, with a saturation of 90%. She's doing reasonably well. Blood pressure is 174/79, respiratory rate 16, heart rate 91, and temperature 98.2. Labs from today include a white count of 16.08 hemoglobin 8.4, hematocrit 31.8, and a platelet count of 224,000. Sodium potassium chloride all normal. Carbon dioxide is 39, anion gap is 4, BUN 50, creatinine 1.0. Chest x-ray shows primarily chronic changes, without significant change compared to an x-ray done on October 15. Progress note dated 10/25/2020. 65-year-old female unknown to our service. The patient was in the [facility] yesterday, was transferred over to 3 . either yesterday or last night. Currently, the patient is either on BiPAP, with settings of 12/6 and 75%, or a nonrebreather/15 they're high flow combination. The patient is not receiving any IV fluids. The patient saturations currently are 92% on the nonrebreather mass/15 they're high flow oxygen. She's in a chair sitting at the bedside. She's actually sleeping. She appears not have any distress at this time. No new laboratory data on this patient other than a blood sugar 257. Chest x-ray from yesterday shows chronic changes, without an acute process. Objective - Vital Signs Vital signs: Vital Signs Temp 99.1 F 10/25/20 12:00 Pulse 97 10/25/20 12:00 Resp 26 H 10/25/20 12:00 BP 135/62 10/25/20 12:00 Pulse Ox 90 L 10/25/20 12:00 Intake & Output 10/24/20 10/25/20 10/25/20 18:59 06:59 18:59 Intake Total 840 200 Output Total 1600 1300 Balance 840 -1600 -1100 Intake: Oral 840 200 Output: Urine 1600 1300 Other: Voiding Method Bedside Commode Bedside Commode External Catheter # Voids 1 1 - Exam No acute distress, sleeping, currently on a combination of both a nonrebreather mask, and 15 L high flow nasal O2. Sitting at the bedside, without any respiratory distress or difficulty. Saturations are 90% HEENT examination is grossly unremarkable. Neck supple. Full range of motion. No adenopathy thyromegaly or neck vein distention. Cardiovascular examination reveals regular rhythm rate. S1-S2 normal. No S3 or S4. No discernible murmur noted. Heart sounds are distant. Heart rate 97 bpm. Lungs reveal diffuse bilateral rhonchi and wheezes. Breath sounds equal bilaterally but diminished throughout. Crackles are noted. Abdomen soft bowel sounds are heard. No masses or tenderness. Extremities are intact. No cyanosis or clubbing. Trace edema. Skin is without rash or lesion. Neurologic examination is brief but nonfocal. - Labs CBC & Chem 7: 10/21/20 05:46 10/21/20 05:46 Labs: Abnormal Lab Results - Last 24 Hours (Table) 10/24/20 10/25/20 10/25/20 Range/Units 17:00 02:00 06:08 POC Glucose (mg/dL) 120 H 189 H 303 H (75-99) mg/dL 10/25/20 Range/Units 11:51 POC Glucose (mg/dL) 257 H (75-99) mg/dL Assessment and Plan Assessment: Acute hypoxemic respiratory failure, likely multifactorial, in part related to COPD exacerbation, diastolic CHF, and possible COVID 19 pneumonitis. History of GI bleed, secondary to duodenal AV malformation. History of chronic diastolic CHF. History of chronic obstructive pulmonary disease, with chronic hypoxemic respiratory failure, on home O2 at 4 L. Morbid obesity. History of diabetes mellitus. History of pneumonia. Diabetic neuropathy. Valvular heart disease/aortic stenosis. Obstructive sleep apnea syndrome. History of hypothyroidism. Previous history of heavy tobacco use. History of depression. Chronic lower extremity edema. Plan: Plan dated 10/15/2020. The patient will be moved from [facility] to [address] [place] [address]. Patient's currently on BiPAP with settings of IPAP 12, EPAP 6, and 30%. Seemed relatively comfortable. Currently, she is on vitamin C, vitamin D3, and zinc. In addition, the patient is getting Solu-Medrol 60 mg every 6 hours. The subcu heparin should be discontinued in favor of Lovenox, 40 mg subcu daily. Additional recommendations and suggestions are forthcoming. We will continue to follow. Prognosis is guarded. The patient has been feeling poorly for some time, even before her admission on October 06. She is likely outside the window for REM. Plan dated 10/16/2020. The patient's doing much better. She is on 3 L nasal cannula. She sitting at the bedside. Yesterday, she was quite lethargic while on BiPAP. The patient is a CO2 retainer. One has to be very careful with any sedatives or hypnotics or narcotics on this patient. Saturations are this patient are perfectly acceptable 88-92%. We will continue to follow. Prognosis is guarded. She should be on Lovenox 40 mg subcu daily would not subcu heparin. We will continue to follow make recommendations. The patient was outside the window for REM. Plan dated 10/17/2020. The patient's doing better from the pulmonary standpoint. She did not use of BiPAP last night. She did test positive for coronavirus. She's currently being evaluated by the hospitalist service for chest pain. No new labs to report. No new chest x-ray to report. Medications have been reviewed. She is on appropriate medications including albuterol inhaler, Symbicort inhaler, vitamins C, D3, and zinc, as well as subcu heparin, and steroids. Plan dated 10/21/2020. Currently, the patient is about at her baseline. Currently, she is on 5 L nasal cannula. The patient can use BiPAP when she wants to, he uses it primarily in the evening when she is sleeping. She remains on appropriate medications including vitamin C, vitamin D3, and zinc. She is also on albuterol inhaler. We will continue to follow make recommendations were appropriate. Most recent chest x-ray, done yesterday stable. Changes are mostly chronic and unchanged. Overall prognosis remains guarded. She did not receive REM because she was outside the window. Plan dated 10/25/2020. The patient was seen by my partner yesterday. The patient was moved over to the 3 S. floor. Currently, she is on a combination of a nonrebreather mask, and 15 L high flow nasal O2. Also, the BiPAP is in her room, with settings of 12/6, and 75%. She sitting at the bedside in a chair. Her saturations are currently 92%. She's not receiving any IV fluids. She remains on vitamin C, vitamin D3, and zinc. She is also on albuterol inhaler, Symbicort, Lovenox, and Solu- Medrol. Repeat CT angiogram on October 21, was negative for pulmonary embolus him, but did show scattered airspace disease. In my opinion, the patient's overall prognosis is poor. Should she end up mechanical ventilation, she likely will not survive, where she does survive, will end up needing tracheostomy and PEG tube placement. CODE STATUS in my opinion should be discussed by the primary service. Time with Patient: Less than 30
[2020-10-25 16:38] LABS: Glucose,Whole Blood 85 mg/dL (75-99)
[2020-10-25] MEDS: SENNOSIDES-DOCUSATE SODIUM 1 EACH TAB PO SCH (17:41)
[2020-10-25 20:39] LABS: Glucose,Whole Blood 154 mg/dL (75-99)
[2020-10-25] MEDS: MONTELUKAST 10 MG TAB PO SCH (21:20)
[2020-10-26 06:47] LABS: Glucose,Whole Blood 97 mg/dL (75-99)
[2020-10-26] MEDS: INSULIN DETEMIR (LEVEMIR) 100 UNIT/ML SYR SQ SCH ×2 (06:52→20:48)
[2020-10-26] MEDS: PANTOPRAZOLE 40 MG TABLET PO SCH ×2 (06:52→16:22)
[2020-10-26] MEDS: LEVOTHYROXINE 125 MCG TAB PO SCH (06:52)
[2020-10-26] MEDS: INSULIN ASPART (NovoLOG) 100 UNIT/ML VIAL SQ SCH ×7 (06:52→21:00)
[2020-10-26] MEDS: ALPRAZolam 0.25 MG TAB PO PRN ×3 (07:03→20:48)
[2020-10-26] MEDS: SYMBICORT 160-4.5 MCG INHALER INHALATION SCH ×2 (08:29→20:44)
[2020-10-26] MEDS: TIOTROPIUM 2.5 MCG INHALER INHALATION SCH (08:29)
[2020-10-26] MEDS: ALBUTEROL HFA INHALER INHALATION SCH ×4 (08:29→20:43)
[2020-10-26 08:45] LABS: Anisocytosis Slight; Basophils # (A) 0.1 k/uL (0-0.2); Basophils % (A) 0 %; Eosinophils % (A) 0 %; HCT 32.4 % (34.0-46.0); Hypochromasia Marked; Lymphocytes # (A) 0.2 k/uL (1.0-4.8); Lymphocytes % (A) 1 %; MCH 21.9 pg (25.0-35.0); MCHC 27.9 g/dL (31.0-37.0); MCV 78.7 fL (80.0-100.0); Mean Platelet Volume 9.9; Microcytosis Slight; Monocytes # (A) 0.6 k/uL (0-1.0); Monocytes % (A) 3 %; Neutrophils # (A) 16.7 k/uL (1.3-7.7); Neutrophils % (A) 95 %; Platelet Count 221 k/uL (150-450); RBC 4.11 m/uL (3.80-5.40); RDW 19.6 % (11.5-15.5); WBC 17.7 k/uL (3.8-10.6)
[2020-10-26 08:46] LABS: Potassium 4.4 mmol/L (3.5-5.1)
[2020-10-26] MEDS: methylPREDNISolone SOD SUCCI 125 MG/2 ML VIAL IV SCH ×3 (08:47→23:52)
[2020-10-26] MEDS: NYSTATIN 100,000 UNIT/ML SUSP 500,000 UNIT/5 ML CUP PO SCH ×4 (08:47→20:48)
[2020-10-26] MEDS: ENOXAPARIN 40 MG/0.4 ML SYRINGE SQ SCH ×2 (08:47→20:48)
[2020-10-26 08:48] LABS: Albumin 3.9 g/dL (3.5-5.0); Total Bilirubin 0.4 mg/dL (0.2-1.3); Total Protein 7.3 g/dL (6.3-8.2)
[2020-10-26] MEDS: LINAGLIPTIN 5 MG TABLET PO SCH (08:48)
[2020-10-26] MEDS: BENZONATATE 100 MG CAP PO SCH ×3 (08:48→20:48)
[2020-10-26] MEDS: FUROSEMIDE 20 MG TAB PO SCH ×2 (08:48→16:22)
[2020-10-26] MEDS: FLUoxetine HCL 20 MG CAP PO SCH (08:48)
[2020-10-26] MEDS: DOXYCYCLINE 100 MG CAP PO SCH ×2 (08:49→20:47)
[2020-10-26] MEDS: ASCORBIC ACID 500 MG TAB PO SCH (08:49)
[2020-10-26] MEDS: acetaZOLAMIDE 250 MG TAB PO SCH ×2 (08:49→20:47)
[2020-10-26] MEDS: ZINC SULFATE 220 MG CAP PO SCH (08:49)
[2020-10-26] MEDS: BENZOCAINE/MENTHOL LOZENG 1 EACH LOZENGE MUCOUS MEM PRN (08:49)
[2020-10-26] MEDS: guaiFENesin 600 MG TABLET.ER PO SCH ×2 (08:49→20:47)
[2020-10-26] MEDS: CHOLECALCIFEROL 25 MCG (1000 IU) TABLET PO SCH (08:49)
[2020-10-26] MEDS: PREGABALIN 100 MG CAP PO SCH ×2 (08:50→20:47)
[2020-10-26] MEDS: MORPHINE SULFATE 2 MG/ML SYRINGE IVP PRN ×2 (08:50→23:51)
[2020-10-26 09:02] LABS: Glucose,Whole Blood 93 mg/dL (75-99)
[2020-10-26] MEDS ORDERED: KETOROLAC 15 MG/ML 1 ML VIAL IVP PRN (09:14)
--- NOTE | 2020-10-26 10:21 | P.PN ---
Subjective Progress Note Date: 10/26/20 HISTORY OF PRESENT ILLNESS This is a 65-year-old female patient of Dr. Deras with past medical history significant for heart failure, COPD, chronic hypoxic respiratory failure on home O2 at 2 L nasal cannula and obstructive sleep apnea on BiPAP support at bedtime, diabetes mellitus type 2 with diabetic neuropathy, chronic diastolic heart failure, valvular heart disease, hypertension, hypothyroidism, GI bleed with anemia. Patient has had multiple admissions and multiple endoscopies for GIB and anemia. 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 The bleeding seems to be stable since that time. They, patient presented to the hospital due to chest pain in the midsternal area across her chest seems to be worse after she eats it was hurting after she had b reakfast this morning. She complains of shortness of breath with exertion that is worse than the last time she was admitted. She states her stools have been normal. She does complain of abdominal distention and fullness after eating. Patient presented to the [facility] emergency center for evaluation. Patient was found to be afebrile, heart rate 71, blood pressure 140/61, pulse ox 100% on oxygen. WBC 14.8, hemoglobin 8.2 which is stable for this patient. Platelet count is 310. Sodium 138, potassium 4.2, chloride 97, CO2 35, BUN 39 and creatinine 1.34 which is also patient's baseline. Blood sugar 207. D-dimer 0.89. Alkaline phosphatase 160. Troponin negative. Pro- BNP 2570. Lactic acid 1.0. Coronavirus PCR not detected. EKG sinus rhythm with nonspecific ST-T wave changes. Chest x-ray reveals vascular and interstitial markings prominent in the mid to lower lungs bilaterally similar to previous. Consider heart failure versus interstitial infiltrate. CAT scan of the abdomen and pelvis without contrast revealed hepatomegaly and 19.6 cm. Correlate with LFTs and risk factors for underlying hepatocellular disease. 1.3 cm right common iliac chain lymph node is enlarged. Left inguinal femoral chain lymph nodes are borderline enlarged. Findings probably reactive postinflammatory. 1.1 cm indeterminate right adrenal nodule. Moderate stool burden and generalized colonic diverticulosis. Tiny hiatal hernia. Consult was admitted for cardiology and patient has been seen by Dr. Yang for progressive dyspnea secondary to combination of COPD and element of heart failure with preserved systolic function. Plan to continue IV diuretics for 24 hours. 10/07: She has been afebrile, heart rate 86, blood pressure 101/46, pulse ox 90% on 4 L nasal cannula. WBC 11, hemoglobin 7.9, platelet count 319. Sodium 138, potassium 4.3, chloride 95, CO2 37, BUN 31 and creatinine 1.02. Blood sugars have been running 185 up to 405 at its 4 PM yesterday. Patient missed her morning dose of Levemir yesterday. Patient underwent gastric emptying study which was negative for gastroparesis. Patient is continued on IV Lasix at 40 mg every 12 hours. 10/08: Patient is afebrile, heart rate 75, blood pressure 146/57, pulse ox 92% on 3 L nasal cannula. Repeat blood work reveals sodium 138, potassium 4.9, chloride 96, CO2 37, BUN 38 creatinine 1.13. Blood sugars have been running between 211 and 307. Hemoglobin A1c from July is 5.2. Patient has increased dyspnea today along with a dry cough. She complains of shortness of breath with minimal activity, positive orthopnea. Patient was having issues with constipation and last evening and Senokot was added and she states she has had lots of bowel movements. Cardiology increase Lasix every 8 hours. Also Solu-Medrol added. 10/09: Pulse ox is 94% on 3 L nasal cannula. Patient has been afebrile, heart rate 86, blood pressure 134/63. Patient continues to have shortness of breath and nonproductive cough. She is wheezing. Positive shortness of breath with minimal activity. CTA of the chest has been ordered to rule out PE. Blood sugar at 0 was 604 and also high yesterday afternoon, patient received additional NovoLog on top of scale. Levemir 42 units subcu ordered this morning versus her normal dose of 30. Scheduled NovoLog will be increased to 6 units with meals. Solu-Medrol will be decreased to every 12 hours Repeat blood work reveals sodium 131, potassium 5.9, chloride 89, CO2 38, BUN 41 and creatinine 1.15. 10/10: CTA of the chest was suboptimal study without central pulmonary embolism. Cardiomegaly with mild interstitial and alveolar edema raises concern for heart failure exacerbation. No focal consolidation. She is currently on Lasix 40 mg IV 3 times daily. She continues to have shortness of breath, dyspnea with exertion and lower extremity edema. Lasix will be decreased tomorrow to 60 mg oral twice daily. Blood sugars continue to be in the 400s and 500s. She has received additional NovoLog plus scale. Levemir will be increased to 45 units twice daily and scheduled NovoLog increased to 12 units with meals and at at bedtime. Solu-Medrol was discontinued and patient to start prednisone tomorrow. Pulse ox is 95% on 3 L nasal cannula. She's been afebrile, heart rate 60, blood pressure 131/54. Repeat blood work reveals WBC 15.8, hemoglobin 7.5, platelet count 388. Sodium was 129, potassium 6.1 and one dose of Kayexalate 30 mg ordered, oral prednisone scheduled was discontinued and Aldactone decreased to 12.5 mg daily. Chloride 84, CO2 39, BUN 57 and creatinine 1.41. 10/11 and patient examined bedside. Continue have shortness of breath on exertion. For some mild is continued at 40 IV every 8 hours per cardiology. On evaluation as patient's blood work today potassium is improved to 5.1 chloride is 85 bicarb 42 BUN 64 creatinine 1.34 glucose remains high at 444. Lantus increased to 50 twice a day today and NovoLog increased to 15 units with meals continue and follow with sliding scale. Solu-Medrol switched to prednisone 40 mg daily the patient labs tomorrow 10/12 patient examined at bedside. As shortness of breath on exertion and fatigue. Vitals checked in the room such as patient's systolic over 80s. Vitals as checked at 1 PM suggest blood pressure 125/71 with oxygen saturation of 96% on 8 L (55 years. 16 hold patient's blood pressure medication and Lasix today as patient's blood pressure is on the lower side. ABG to be obtained with a pH of 7.34 pCO2 of 81 pO2 59 and bicarb 43 appears to be secondary to metabolic alkalosis secondary to overdiuresis.. Patient to be placed on BiPAP for COPD exacerbation. Hold Lasix and metolazone. Continue Levemir at the current dose of 50 subcu twice a day with insulin aspart 15 subcu before meals and at bedtime. 10/13: Seen today in follow-up. Her hemoglobin is 7.4 and one dose of Ferrlecit IV will be ordered. Lasix will be resumed today at 60 mg oral. Patient utilizes BiPAP last night. She has gotten encouraged to use this during the day as well. 10/14: Patient noted to have a hacking barking cough. She states it started around 1:00 this morning and has been up all night coughing. She denies having any fever or chills. She denies any nausea or vomiting. A rapid Covid test was ordered which surprisingly came back positive. She has been afebrile, heart rate 91, blood pressure 148/63, pulse ox 94% on 2 L nasal cannula. WBC 9.1, hemoglobin 7.6, platelet count 297. D-dimer 0.83, LDH 669. C-reactive protein 1.6. Sodium 133, potassium 4.6, chloride 90, CO2 34, BUN 49 and creatinine 1.31. She is followed by pulmonary medicine. 10/15: Patient has not been able to sleep since 2 AM. She's experienced increased dyspnea. We have documented a 93% pulse ox on 2 L nasal cannula but this does not reflect patient's condition at the time. Patient had increasing dyspnea along with feeling tired and weak. Patient was transitioned to BiPAP and continues to have dyspnea. She has been utilizing BiPAP at nighttime and somewhat during the day for high CO2 has been improving Patient noted to have wheezing and will be placed back on Solu-Medrol 60 mg IV every 6 hours. We are also increasing Levemir and scheduled NovoLog to cover for hyperglycemia. She will be transferred to the cardiac stepdown unit and pulmonary medicine to be notified of patient's condition. Patient has been afebrile, heart rate 93, blood pressure 113/63, pulse ox 97% on 30% BiPAP. Repeat inflammatory markers ordered for tomorrow. 10/16 patient examined bedside continues to complain of fatigue, headache, body aches, sores in the mouth. Vitals obtained suggested temp of 97.6 pulse 87 respiratory rate 20 blood pressure 140/62 oxygen saturation 94% on 3 L. Headache not resolve with Tylenol. We will add morphine 2 mg IV every 6 hours. Nystatin added to help with oral thrush. PTOT consulted for generalized weakness and debility. No labs to evaluate. Repeat labs tomorrow 10/17 patient examined bedside complains of substernal chest pain on coughing which is improved with breathing treatment. EKG obtained showed normal sinus rhythm with supraventricular complexes. No change compared to previous EKG. Troponin 2 ordered. Tessalon Perles added for cough. Patient is on Mucinex and guaifenesin codeine syrup for cough. Patient does sound congested and will switch patient's inhaler from Flovent to Symbicort. Vitals reviewed patient is afebrile pulse of 111 respiratory rate 20 blood pressure 119/60, oxygen saturation 94% on 3 L. No morning labs to review. Patient's blood sugar continues to be elevated. We will increase patient's Lantus to 70 units twice a day with mealtime insulin. Neck supple Medrol reduced to 40 every 8. No plan for him to have severe or Tocilizumab per pulmonary. Repeat labs ordered chest x-ray ordered. Patient likely discharge on Tuesday for possible oxygen needs and would need to be discharged home on oxygen. 10/18: Patient was examined at the bedside she is found sitting up in the chair currently on 3 L of O2 via nasal cannula. Patient states that she is breathing much better. She is utilizing a BiPAP machine at night for sleeping. She does have a BiPAP and CPAP machine at home. Patient states that the CPAP machine is not on enough to help with her shortness of breath at night. Patient remains afebrile heart rate 74, respirations 22, blood pressure 155/72, O2 saturation is 91% on 3 L of nasal O2 which is baseline for the patient. We will repeat CBC in the morning. 10/19: Patient was examined at the bedside she is found sitting up in a chair. Patient is currently on 3 L of O2 via nasal cannula pulse ox 94% which is normal for the patient. Patient did have a difficult night last night with increased shortness of breath she was unable to to sleep. She did spend the majority of the night sitting up in the chair. Patient is concerned about her cough and how fatigued she has after coughing. Patient has increased anxiety due to her diagnosis of COVID-19. A lengthy discussion was had regarding the oxygen needs and her long disease related to COVID-19. Questions were answered. It was discussed in length with patient to possibly go to subacute rehab facility. Facundo woodward remains afebrile, heart rate 77, respirations 21 and nonlabored with a cough. Pressure 137/75. 10/20: Patient continued to have significant hypoxia, persistent cough, worsening symptoms require multi hours on the BiPAP on daily basis. The patient about subacute rehab consult socially responsible investment adviser patient will be started PTOT if her clinical component is better by Tuesday hopefully be able to send patient to skilled nursing rehab otherwise continue current management and still be aggressive with her COPD and anemia. 10/21: Patient evaluated this morning, sitting up in the bedside chair. Patient has complaints of worsening shortness of breath, she was noted to be hypoxic 75% on 5 L. She was changed to high flow and oxygen did come up to 90%. Will obtain CTA to rule out PE, Acetazolamide 250 mg twice a day was also added. Will also increase her Solu-Medrol to 60 mg every 8 hours. 10/22: Patient has been afebrile, heart rate 91, blood pressure 135/73, pulse ox 91% on high flow nasal cannula 10 L. Patient was on BiPAP briefly last evening. Blood sugars are running high this morning was 100 but otherwise last evening and yesterday afternoon in the 300s up to 461. CTA of the chest shows no evidence of pulmonary embolism. Scattered airspace and interstitial infiltrates throughout both lung phelps. Diamox 250 mg twice daily was started. Patient is currently on Solu-Medrol 60 mg IV every 8 hours. Patient is seen today sitting up in a recliner. Patient utilized BiPAP during the night. She has been working with therapies. Patient had a pulse ox of 90% at rest at 10 L nasal cannula. She stood for 1 minute and pulse ox dropped to 75%. It took patient's 8 minutes to recover to 85% pulse ox. She is complaining of headache and she does have Fioricet and Tylenol 3 available. Patient's nurses been updated the patient is complaining of headache. Family was updated regarding patient's condition yesterday over the phone. 10/23: Patient continues to have significant shortness of breath. She is currently on nonrebreather and nasal cannula 15 L high flow nasal cannula with pulse ox running between 86-100%. Attempt was made to take her off nonrebreather and she dropped down to 80. Patient continues to have cough and significant shortness of breath. All blood sugar remains elevated despite high- dose of insulins. Additional i short acting insulin ordered for this morning. Levemir will be increased to 75 units twice daily. Discussed CODE STATUS with the patient and she wishes to be full code and be intubated. She is unable to make decisions she states that her and daughter can make decisions together. Prognosis is guarded. 10/24: Patient has been afebrile, heart rate 83, blood pressure 146/67, pulse ox 82-99% on HF nasal cannula and intermittent use of NRB. Patient appears to be comfortable at rest in recliner. She appears to be slightly improved from yesterday. Repeat blood work reveals d-dimer of 1.36. Blood sugars are much lower today at breakfast 72 and last evening 111. Levemir to be given this morning and hold short acting, recheck CBG and 2 hours and use scale. Repeat at 2 hours was 299 and patient covered with scale. Repeat chest x-ray reveals chronic changes without acute pulmonary disease. Xanax was increased frequency to qid. 10/25: Patient's hospital sitting up in chair in no acute distress currently on a nonrebreather that is intermittent. She is also on high flow nasal O2. Patient appears to be comfortable. Patient states that sure breathing has improved since yesterday. The only time she feels short of breath is after she has been coughing. She remains afebrile, heart rate 93, respirations 28, blood pressure 144/62 with a pulse ox of 92% on 15 L nonrebreather 10/26: She is found sitting up in a chair with BiPAP on. Patient states that she did sleep better last night however she is having some difficulty in breathing today. She is in moderate distress. She is complaining of a headache which has been treated with Fioricet however we will change to Toradol for maximum of 6 doses. We will also told in to help with sleeping. One dose of tocilizumab will be given today. Patient did not receive any remdesivir. Patient's blood sugar this morning is 25. We will decrease her dose of insulin before bed. We'll discuss CODE STATUS with daughter when seen on Tuesday. REVIEW OF SYSTEMS Constitutional: No fever, no chills, no night sweats. No weight change. Reports sitting weakness and fatigue. No daytime sleepiness. EENT: No headache. No blurred vision or double vision, no loss of vision. No loss of Hearing, no ringing in the ears, no dizziness. No nasal drainage or congestion. No epistaxis. No sore throat. Lungs: Reports shortness of breath continues, reports cough, no sputum production. Reports wheezing. Reports dyspnea with exertion. Cardiovascular: No chest pain, no lower extremity edema. No palpitations. No paroxysmal nocturnal dyspnea. No orthopnea. No lightheadedness or dizziness. No syncopal episodes. Abdominal: Reports upper abdominal pain. No nausea, vomiting. no diarrhea. Reports constipation. No bloody reports tarry stools. Denies bright red bleeding. no loss of appetite. Genitourinary: No dysuria, increased frequency, urgency. No urinary retention. Musculoskeletal: No myalgias. No muscle weakness, no gait dysfunction, no frequent falls. No back pain. No neck pain. Integumentary: No wounds, no lesions. No rash or pruritus. No unusual bruising. No change in hair or nails. Neurologic: No aphasia. No facial droop. No change in mentation. No head injury. No headache. No paralysis. No paresthesia. Psychiatric: No depression. No anxiety. Endocrine: Reported abnormal blood sugars. No weight change. PHYSICAL EXAMINATION Gen: This is a 65-year-old female. She is resting and recliner and appears to be mild respiratory distress on nonrebreather and high flow nasal cannula 15 L. HEENT: Head is atraumatic, normocephalic. Pupils equal, round. Sclerae is anicteric. Conjunctiva pale. NECK: Supple. No JVD. No lymphadenopathy. No thyromegaly. LUNGS: Bilateral wheezing. Mild intercostal retractions. Mild accessory muscle usage. HEART: Regular rate and rhythm. Systolic murmur. ABDOMEN: Soft. Bowel sounds are present. No masses. No tenderness. EXTREMITIES: No pedal edema. No calf tenderness. Dorsalis pedis +2 bilateral ly. NEUROLOGICAL: Patient is awake, alert and oriented x3. Cranial nerves 2 through 12 are grossly intact. ASSESSMENT AND PLAN 1. Chronic hypoxic respiratory failure with progressive dyspnea secondary to COPD and acute on chronic diastolic heart failure as well as Covid 19 pneumonia, POA. Continue Lasix at 60 mg oral daily, continue Solu-Medrol 60 mg IV every 8 hours. CTA of the chest ruled out pulmonary embolism. Continue Symbicort, Ventolin inhaler 2 puffs 4 times daily scheduled and as needed, Tessalon Perles 200 mg 3 times daily, doxycycline 100 mg twice daily, Mucinex 1200 mg twice daily, Robitussin-AC with codeine every 6 hours as needed. tocilizumab 800 mg 2. Upper abdominal/lower chest pain with abdominal bloating and early satiety, ruled out gastroparesis. Most likely secondary to constipation and fecal burden. Continue Senokot 2 daily at 1800. 3. History of GI bleed with acute blood loss anemia secondary to small nonbl eeding duodenal angiectasia status post argon plasma coagulated. Continue Protonix 40 mg oral twice daily. Status post Ferrlecit infusion 1. 4. Diabetes mellitus type 2 with diabetic neuropathy uncontrolled with hyperglycemia secondary to steroids. Continue Levemir increased to 75 units twice daily, scheduled NovoLog increased to 30 units before meals DC bedtime dose., continue NovoLog scale before meals and at bedtime. Continue Januvia 100 mg daily. Hemoglobin A1c in July was 5.2. 5. Debility and worsening condition: The patient advance COPD and recurrent GI bleed along with COVID-19 patient is not doing well physically will continue PTOT and might require subacute rehab for at least 2 weeks. 6. COPD without exacerbation. Continue DuoNeb treatment 4 times daily as needed, Pulmicort 1 mg twice daily, Singulair 10 mg at bedtime. 7. Hypertension. Continue Lasix. 8. Hyperlipidemia. Continue Lipitor 40 mg daily. 9. Obstructive sleep apnea. Continue BiPAP. 10. Hypothyroidism. Continue levothyroxine 125 g daily. 11. Restless leg syndrome. Continue Requip 2 mg twice daily. 12. Recurrent depression. Continue Prozac 20 mg daily. 13. Oral thrush. Completed course of Diflucan and nystatin 14. Acute kidney injury, chronic kidney disease stage III. 15. Hyperkalemia, resolved status post Kayexalate 1. 16. Metabolic alkalosis secondary to overdiuresis. Diamox continued, continue BiPAP. 17. COVID-19. Detected positive. Continue with respiratory support. 18. Situational anxiety. Continue xanax 0.25 mg qid. 19. GI prophylaxis. Protonix twice daily. 20. DVT prophylaxis. Lovenox 40 mg subcu daily. DISCHARGE PLAN Home Impression and plan of care have been directed as dictated by the signing physician. Brandy Villatoro nurse practitioner acting as scribe for signing physician. Objective - Vital Signs Vital signs: Vital Signs Temp 98.5 F 10/26/20 08:00 Pulse 105 H 10/26/20 08:00 Resp 26 H 10/26/20 08:00 BP 151/70 10/26/20 08:00 Pulse Ox 91 L 10/26/20 08:29 Intake & Output 10/25/20 10/26/20 10/26/20 18:59 06:59 18:59 Intake Total 840 150 Output Total 2000 800 550 Balance -1160 -800 -400 Intake: Oral 840 150 Output: Urine 2000 800 550 Other: Voiding Method External Catheter External Catheter - Labs CBC & Chem 7: 10/26/20 07:44 10/26/20 07:44 Labs: Abnormal Lab Results - Last 24 Hours (Table) 10/25/20 10/25/20 10/26/20 Range/Units 11:51 20:14 07:44 WBC 17.7 H (3.8-10.6) k/uL Hgb 9.0 L (11.4-16.0) gm/dL Hct 32.4 L (34.0-46.0) % MCV 78.7 L (80.0-100.0) fL MCH 21.9 L (25.0-35.0) pg MCHC 27.9 L (31.0-37.0) g/dL RDW 19.6 H (11.5-15.5) % Neutrophils # 16.7 H (1.3-7.7) k/uL Lymphocytes # 0.2 L (1.0-4.8) k/uL D-Dimer (<0.60) mg/L FEU Carbon Dioxide (22-30) mmol/L BUN (7-17) mg/dL Creatinine (0.52-1.04) mg/dL Glucose (74-99) mg/dL POC Glucose (mg/dL) 257 H 154 H (75-99) mg/dL AST (14-36) U/L Lactate Dehydrogenase (313-618) U/L C-Reactive Protein (<1.0) mg/dL 10/26/20 10/26/20 Range/Units 07:44 07:44 WBC (3.8-10.6) k/uL Hgb (11.4-16.0) gm/dL Hct (34.0-46.0) % MCV (80.0-100.0) fL MCH (25.0-35.0) pg MCHC (31.0-37.0) g/dL RDW (11.5-15.5) % Neutrophils # (1.3-7.7) k/uL Lymphocytes # (1.0-4.8) k/uL D-Dimer 2.62 H (<0.60) mg/L FEU Carbon Dioxide 31 H (22-30) mmol/L BUN 70 H (7-17) mg/dL Creatinine 1.24 H (0.52-1.04) mg/dL Glucose 25 L* (74-99) mg/dL POC Glucose (mg/dL) (75-99) mg/dL AST 48 H (14-36) U/L Lactate Dehydrogenase 2229 H (313-618) U/L C-Reactive Protein 1.0 H (<1.0) mg/dL
[2020-10-26 11:09] LABS: Erythrocyte Sedimentation Rate 39 mm/hr (0-20)
[2020-10-26 11:53] LABS: Glucose,Whole Blood 101 mg/dL (75-99)
[2020-10-26 15:23] LABS: ABG Base Excess 7.8 mmol/L; ABG HCO3 34 mmol/L (21-25); ABG Oxygen Saturation 85.5 % (94-97); ABG PCO2 67 mmHg (35-45); ABG PH 7.31 (7.35-7.45); ABG TCO2 36 mmol/L (19-24); Allen Test Performed? Yes
[2020-10-26 15:30] LABS: ABG PO2 56 mmHg (83-108)
--- NOTE | 2020-10-26 16:23 | P.PN ---
Subjective Progress Note Date: 10/26/20 Principal diagnosis: Shortness of breath. 65-year-old female patient was hospitalized for shortness of breath. The patient was originally admitted to the hospital on 09/26/2020 on seeing this patient in consultation for dyspnea today. She is known to have multiple medical problems and comorbidities. 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 The patient is morbidly obese and she has COPD along with chronic hypoxic respiratory failure and she uses a nocturnal BiPAP device. She has obstructive sleep apnea. She has hypothyroidism and chronic edema lower extremities. During this current admission, the patient presented with some shortness of breath and a CT angiogram of the chest was done on 10/09/2020 and the CTA showed suboptimal study regarding the possibility of pulmonary embolism, nevertheless, there was cut or megaly and mild interstitial and alveolar edema concerning for underlying congestion heart failure. The chest x-rays also showing cardiomegaly with pulmonary vascular congestion. Patient is currently on Lasix 60 mg by mouth twice a day. The patient is also on prednisone 40 mg by mouth daily as part of a burst taper. I see that she was also taking Diamox and currently the Diamox is on hold. She'll DuoNeb neb achievements [id number]. Outpatient medications of been ordered resume. Her creatinine and creatinine is at 1.5 and the patient has a component of an acute kidney injury knowing that her baseline renal function was stable. She was also on Zaroxolyn which was also placed on hold. Progress note dated 10/15/2020. This is a 65-year-old female, well-known to our service. The patient was admitted back on October 06. She was seen by Dr. Gomes on October 12. More recently, the patient's saturations became low, she was more short of breath. The patient was transferred over or will be transferred over to [facility]. Currently, she is on BiPAP with IPAP of 12, EPAP of 6. FiO2 is 30%. As I mention, the patient was admitted on October 06. She apparently also tested positive for COVID on October 14. Currently she is on the pediatrics floor. Chest x-ray showed diffuse interstitial infiltrates, consistent with either interstitial edema, or pneumonitis secondary to coronavirus. Most recent labs were from October 14, with a white count 9.1, hemoglobin 7.6, hematocrit 28.2, and platelet count 297,000. D-dimer was 0.83. Sodium 133, potassium 4.6, chlorides 90, CO2 34, anion gap 9, BUN 49, creatinine 1.31. LDH 669, C-reactive protein 1.6. Progress note dated 10/16/2020. 65-year-old female, well-known to our service. The patient was seen by my partner initially, but at that time was doing relatively well, and we did not continue to see the patient. The patient was admitted back on October 06. She was seen by Dr. Gomes, on October 12. We were asked to re-see her, because she was more short of breath. She was placed on BiPAP at 12/6 and 30%. Yesterday she was quite lethargic and sleepy. Currently, she is on 3 L. She sitting at the bedside. She feels much better. She is much more awake and alert. She is a CO2 retainer, and if she gets excess oxygen, or any sedatives, hypnotics, narcotics, or tranquilizers, she will have worsening hypercapnic respiratory failure and will become very somnolent/lethargic. Currently labs include a white count 9.2, hemoglobin 7.9, hematocrit 30.5, and platelet count a 66,000. D-dimer is 0.86. Sodium 131, potassium 5.1, chlorides 91, CO2 28, anion gap is 12, BUN 43, and creatinine 1.24. LDH 906 and C-reactive protein is 2.8. She did test positive for coronavirus. Progress note dated 10/17/2020. 65-year-old female, well-known to our service. The patient was initially admitted back on October 06. She was seen by my partner on October 12. We saw her again on October 15 and . She was initially on the pediatric floor, and then moved to the [address] [place] [address]. Currently, she is not on any IV fluids. He is receiving nasal O2 at 3 L. She did not use of BiPAP last night. She is currently being evaluated by the hospital service for chest pain. There are no new labs to report. No new x-rays. From the pulmonary standpoint, she appears to be relatively stable. On 10/20/2020 patient seen in follow-up on medical surgical floor, she had just returned from the bathroom, where she ambulated on 5 L of oxygen, and her nasal cannula has multiple extensions, and with exertion patient becomes very short of breath, her pulse ox is 73% upon returning to the recliner from the bathroom, and patient is dyspnea, she was placed on BiPAP support with pressures of 12 and 6 and 30%. Patient does get very dyspneic and lightheaded when she desats with ambulation, and she was told to use the bedside commode. She's been afebrile, hemodynamically she's been stable, and today's chest x-ray shows coarse interstitial and scattered airspace infiltrates without significant change. Patient remains on oral Lasix 60 mg twice daily, she is on doxycycline for empiric antibiotic coverage, she is on Symbicort, albuterol, and Spiriva, she is on IV steroids, and she is on Zaroxolyn 2.5 mg on Tuesday schedule. Her weight is down by 1.5 kg in the last few days. Procalcitonin level was negative Progress note dated 10/21/2020. 65-year-old female, known to our service. The patient was admitted back on October 06. The patient goes back and forth between nasal cannula, and BiPAP. She has chronic hypoxemic and hypercapnic respiratory failure. Currently, she is on 5 L nasal cannula, with a saturation of 90%. She's doing reasonably well. Blood pressure is 174/79, respiratory rate 16, heart rate 91, and temperature 98.2. Labs from today include a white count of 16.08 hemoglobin 8.4, hematocrit 31.8, and a platelet count of 224,000. Sodium potassium chloride all normal. Carbon dioxide is 39, anion gap is 4, BUN 50, creatinine 1.0. Chest x-ray shows primarily chronic changes, without significant change compared to an x-ray done on October 15. Progress note dated 10/25/2020. 65-year-old female unknown to our service. The patient was in the [facility] yesterday, was transferred over to 3 . either yesterday or last night. Currently, the patient is either on BiPAP, with settings of 12/6 and 75%, or a nonrebreather/15 they're high flow combination. The patient is not receiving any IV fluids. The patient saturations currently are 92% on the nonrebreather mass/15 they're high flow oxygen. She's in a chair sitting at the bedside. She's actually sleeping. She appears not have any distress at this time. No new laboratory data on this patient other than a blood sugar 257. Chest x-ray from yesterday shows chronic changes, without an acute process. Progress note dated 10/26/2020. Female, well-known to our service. The patient is seen today again in room 361. Currently, the patient is on BiPAP at 12/6 and 75%. She's not receiving any IV fluids. An arterial blood gas showed a PaO2 of 56, pCO2 67, and a pH is 7.31. She appears to be relatively comfortable. She is mostly sleeping. White count 17.7, hemoglobin 9, hematocrit 32.4, and platelet count 221,000. D-dimer test is 2.62. Sodium 143, potassium 4.4, chlorides 104, CO2 31, anion gap 8, BUN 70, creatinine 1.24. LDH is 2229, C-reactive protein is 1. Chest x-ray from October 24, shows only chronic changes. Objective - Vital Signs Vital signs: Vital Signs Temp 99.1 F 10/26/20 16:00 Pulse 94 10/26/20 16:00 Resp 26 H 10/26/20 16:00 BP 149/68 10/26/20 16:00 Pulse Ox 97 10/26/20 16:00 Intake & Output 10/25/20 10/26/20 10/26/20 18:59 06:59 18:59 Intake Total 840 250 Output Total 1999 800 550 Balance -1160 -800 -300 Intake: Oral 840 250 Output: Urine 1999 800 550 Other: Voiding Method External Catheter External Catheter - Exam No acute distress, sleeping, currently on BiPAP at 12/6 and 75%. Saturations are 97%. HEENT examination is grossly unremarkable. Neck supple. Full range of motion. No adenopathy thyromegaly or neck vein distention. Cardiovascular examination reveals regular rhythm rate. S1-S2 normal. No S3 or S4. No discernible murmur noted. Heart sounds are distant. Heart rate 94 bpm. Lungs reveal diffuse bilateral rhonchi and wheezes. Breath sounds equal bilaterally but diminished throughout. Crackles are noted. Exam is unchanged. Abdomen soft bowel sounds are heard. No masses or tenderness. Extremities are intact. No cyanosis or clubbing. Trace edema. Skin is without rash or lesion. Neurologic examination is brief but nonfocal. The patient is appropriate when she is aroused. - Labs CBC & Chem 7: 10/26/20 07:44 10/26/20 07:44 Labs: Abnormal Lab Results - Last 24 Hours (Table) 10/25/20 10/26/20 10/26/20 Range/Units 20:14 07:44 07:44 WBC 17.7 H (3.8-10.6) k/uL Hgb 9.0 L (11.4-16.0) gm/dL Hct 32.4 L (34.0-46.0) % MCV 78.7 L (80.0-100.0) fL MCH 21.9 L (25.0-35.0) pg MCHC 27.9 L (31.0-37.0) g/dL RDW 19.6 H (11.5-15.5) % Neutrophils # 16.7 H (1.3-7.7) k/uL Lymphocytes # 0.2 L (1.0-4.8) k/uL ESR 39 H (0-20) mm/hr D-Dimer 2.62 H (<0.60) mg/L FEU ABG pH (7.35-7.45) ABG pCO2 (35-45) mmHg ABG pO2 (83-108) mmHg ABG HCO3 (21-25) mmol/L ABG Total CO2 (19-24) mmol/L ABG O2 Saturation (94-97) % Carbon Dioxide (22-30) mmol/L BUN (7-17) mg/dL Creatinine (0.52-1.04) mg/dL Glucose (74-99) mg/dL POC Glucose (mg/dL) 154 H (75-99) mg/dL AST (14-36) U/L Lactate Dehydrogenase (313-618) U/L C-Reactive Protein (<1.0) mg/dL 10/26/20 10/26/20 10/26/20 Range/Units 07:44 11:51 15:06 WBC (3.8-10.6) k/uL Hgb (11.4-16.0) gm/dL Hct (34.0-46.0) % MCV (80.0-100.0) fL MCH (25.0-35.0) pg MCHC (31.0-37.0) g/dL RDW (11.5-15.5) % Neutrophils # (1.3-7.7) k/uL Lymphocytes # (1.0-4.8) k/uL ESR (0-20) mm/hr D-Dimer (<0.60) mg/L FEU ABG pH 7.31 L (7.35-7.45) ABG pCO2 67 H (35-45) mmHg ABG pO2 56 L* (83-108) mmHg ABG HCO3 34 H (21-25) mmol/L ABG Total CO2 36 H (19-24) mmol/L ABG O2 Saturation 85.5 L (94-97) % Carbon Dioxide 31 H (22-30) mmol/L BUN 70 H (7-17) mg/dL Creatinine 1.24 H (0.52-1.04) mg/dL Glucose 25 L* (74-99) mg/dL POC Glucose (mg/dL) 101 H (75-99) mg/dL AST 48 H (14-36) U/L Lactate Dehydrogenase 2229 H (313-618) U/L C-Reactive Protein 1.0 H (<1.0) mg/dL Assessment and Plan Assessment: Acute hypoxemic respiratory failure, likely multifactorial, in part related to COPD exacerbation, diastolic CHF, and possible COVID 19 pneumonitis. History of GI bleed, secondary to duodenal AV malformation. History of chronic diastolic CHF. History of chronic obstructive pulmonary disease, with chronic hypoxemic respiratory failure, on home O2 at 4 L. Morbid obesity. History of diabetes mellitus. History of pneumonia. Diabetic neuropathy. Valvular heart disease/aortic stenosis. Obstructive sleep apnea syndrome. History of hypothyroidism. Previous history of heavy tobacco use. History of depression. Chronic lower extremity edema. Plan: Plan dated 10/15/2020. The patient will be moved from [facility] over to [address] [place] [address]. Patient's currently on BiPAP with settings of IPAP 12, EPAP 6, and 30%. Seemed relatively comfortable. Currently, she is on vitamin C, vitamin D3, and zinc. In addition, the patient is getting Solu-Medrol 60 mg every 6 hours. The subcu hep julio should be discontinued in favor of Lovenox, 40 mg subcu daily. Additional recommendations and suggestions are forthcoming. We will continue to follow. Prognosis is guarded. The patient has been feeling poorly for some time, even before her admission on October 06. She is likely outside the window for REM. Plan dated 10/16/2020. The patient's doing much better. She is on 3 L nasal cannula. She sitting at the bedside. Yesterday, she was quite lethargic while on BiPAP. The patient is a CO2 retainer. One has to be very careful with any sedatives or hypnotics or narcotics on this patient. Saturations are this patient are perfectly acceptable 88-92%. We will continue to follow. Prognosis is guarded. She should be on Lovenox 40 mg subcu daily would not subcu heparin. We will c ontinue to follow make recommendations. The patient was outside the window for REM. Plan dated 10/17/2020. The patient's doing better from the pulmonary standpoint. She did not use of BiPAP last night. She did test positive for coronavirus. She's currently being evaluated by the hospitalist service for chest pain. No new labs to report. No new chest x-ray to report. Medications have been reviewed. She is on appropriate medications including albuterol inhaler, Symbicort inhaler, vitamins C, D3, and zinc, as well as subcu heparin, and steroids. Plan dated 10/21/2020. Currently, the patient is about at her baseline. Currently, she is on 5 L nasal cannula. The patient can use BiPAP when she wants to, he uses it primarily in the evening when she is sleeping. She remains on appropriate medications including vitamin C, vitamin D3, and zinc. She is also on albuterol inhaler. W e will continue to follow make recommendations were appropriate. Most recent chest x-ray, done yesterday stable. Changes are mostly chronic and unchanged. Overall prognosis remains guarded. She did not receive REM because she was outside the window. Plan dated 10/25/2020. The patient was seen by my partner yesterday. The patient was moved over to the 3 S. floor. Currently, she is on a combination of a nonrebreather mask, and 15 L high flow nasal O2. Also, the BiPAP is in her room, with settings of 12/6, and 75%. She sitting at the bedside in a chair. Her saturations are currently 92%. She's not receiving any IV fluids. She remains on vitamin C, vitamin D3, and zinc. She is also on albuterol inhaler, Symbicort, Lovenox, and Solu- Medrol. Repeat CT angiogram on October 21, was negative for pulmonary embolus him, but did show scattered airspace disease. In my opinion, the patient's overall prognosis is poor. Should she end up mechanical ventilation, she likely will not survive, where she does survive, will end up needing tracheostomy and PEG tube placement. CODE STATUS in my opinion should be discussed by the primary service. Plan dated 10/26/2020. The patient's currently is on BiPAP, settings of IPAP 12, EPAP 6, and 75%. Arterial blood gases are ordered. Additional recommendations and suggestions are forthcoming. She remains on albuterol inhaler, admit see, vitamin D3, and zinc. She had a repeat CT angiogram on October 21, which is negative for pulmonary embolism. It did show scattered airspace disease. The patient's also on Symbicort, Lovenox, and Solu-Medrol. Additional recommendations and suggestions are forthcoming. Continue to follow. Overall prognosis is poor. CODE STATUS should be addressed by the primary service. Time with Patient: Less than 30
[2020-10-26] MEDS: SENNOSIDES-DOCUSATE SODIUM 1 EACH TAB PO SCH (16:24)
[2020-10-26 16:47] LABS: Glucose,Whole Blood 70 mg/dL (75-99)
[2020-10-26 17:12] LABS: Glucose,Whole Blood 55 mg/dL (75-99)
[2020-10-26 17:37] LABS: Glucose,Whole Blood 62 mg/dL (75-99)
[2020-10-26 17:59] LABS: Glucose,Whole Blood 101 mg/dL (75-99)
[2020-10-26] MEDS ORDERED: TOCILIZUMAB 800 MG in SODIUM CHLORIDE 0.9% 80 ML IV ONE (18:00)
[2020-10-26 20:36] LABS: Glucose,Whole Blood 84 mg/dL (75-99)
[2020-10-26] MEDS: MELATONIN 3 MG TABLET PO SCH (20:47)
[2020-10-26] MEDS: BUTALB/APAP/CAFF 50-325-40MG TAB PO PRN (20:47)
[2020-10-26] MEDS: MONTELUKAST 10 MG TAB PO SCH (20:48)
[2020-10-27] MEDS: MORPHINE SULFATE 2 MG/ML SYRINGE IVP PRN ×3 (05:25→23:22)
[2020-10-27 06:06] LABS: Glucose,Whole Blood 95 mg/dL (75-99)
[2020-10-27] MEDS: INSULIN DETEMIR (LEVEMIR) 100 UNIT/ML SYR SQ SCH (06:39)
[2020-10-27] MEDS: ALPRAZolam 0.25 MG TAB PO PRN (06:39)
[2020-10-27] MEDS: LEVOTHYROXINE 125 MCG TAB PO SCH (06:39)
[2020-10-27] MEDS: PANTOPRAZOLE 40 MG TABLET PO SCH ×2 (06:39→17:09)
[2020-10-27] MEDS: INSULIN ASPART (NovoLOG) 100 UNIT/ML VIAL SQ SCH ×5 (07:44→21:52)
[2020-10-27] MEDS: TIOTROPIUM 2.5 MCG INHALER INHALATION SCH (08:32)
[2020-10-27] MEDS: SYMBICORT 160-4.5 MCG INHALER INHALATION SCH ×2 (08:32→20:43)
[2020-10-27] MEDS: ALBUTEROL HFA INHALER INHALATION SCH ×4 (08:32→20:43)
[2020-10-27] MEDS: BENZONATATE 100 MG CAP PO SCH ×3 (09:41→21:09)
[2020-10-27] MEDS: methylPREDNISolone SOD SUCCI 125 MG/2 ML VIAL IV SCH ×3 (09:41→23:21)
[2020-10-27] MEDS: ASCORBIC ACID 500 MG TAB PO SCH (09:41)
[2020-10-27] MEDS: CHOLECALCIFEROL 25 MCG (1000 IU) TABLET PO SCH (09:41)
[2020-10-27] MEDS: acetaZOLAMIDE 250 MG TAB PO SCH ×2 (09:41→21:10)
[2020-10-27] MEDS: ENOXAPARIN 40 MG/0.4 ML SYRINGE SQ SCH ×2 (09:42→21:10)
[2020-10-27] MEDS: guaiFENesin 600 MG TABLET.ER PO SCH ×2 (09:42→21:10)
[2020-10-27] MEDS: LINAGLIPTIN 5 MG TABLET PO SCH (09:42)
[2020-10-27] MEDS: FUROSEMIDE 20 MG TAB PO SCH ×2 (09:42→15:36)
[2020-10-27] MEDS: FLUoxetine HCL 20 MG CAP PO SCH (09:42)
[2020-10-27] MEDS: NYSTATIN 100,000 UNIT/ML SUSP 500,000 UNIT/5 ML CUP PO SCH ×5 (09:43→21:10)
[2020-10-27] MEDS: PREGABALIN 100 MG CAP PO SCH ×2 (09:43→21:09)
[2020-10-27] MEDS: ZINC SULFATE 220 MG CAP PO SCH (09:47)
[2020-10-27] MEDS ORDERED: TOCILIZUMAB 800 MG in SODIUM CHLORIDE 0.9% 60 ML IV ONE (10:00)
[2020-10-27] MEDS: DOXYCYCLINE 100 MG CAP PO SCH (11:04)
--- NOTE | 2020-10-27 11:22 | P.PN ---
Subjective Progress Note Date: 10/27/20 HISTORY OF PRESENT ILLNESS This is a 65-year-old female patient of Dr. Deras with past medical history significant for heart failure, COPD, chronic hypoxic respiratory failure on home O2 at 2 L nasal cannula and obstructive sleep apnea on BiPAP support at bedtime, diabetes mellitus type 2 with diabetic neuropathy, chronic diastolic heart failure, valvular heart disease, hypertension, hypothyroidism, GI bleed with anemia. Patient has had multiple admissions and multiple endoscopies for GIB and anemia. 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 The bleeding seems to be stable since that time. They, patient presented to the hospital due to chest pain in the midsternal area across her chest seems to be worse after she eats it was hurting after she had breakfast this morning. She complains of shortness of breath with exertion that is worse than the last time she was admitted. She states her stools have been normal. She does complain of abdominal distention and fullness after eating. Patient presented to the [facility] emergency center for evaluation. Patient was found to be afebrile, heart rate 71, blood pressure 140/61, pulse ox 100% on oxygen. WBC 14.8, hemoglobin 8.2 which is stable for this patient. Platelet count is 310. Sodium 138, potassium 4.2, chloride 97, CO2 35, BUN 39 and creatinine 1.34 which is also patient's baseline. Blood sugar 207. D-dimer 0.89. Alkaline phosphatase 160. Troponin negative. Pro- BNP 2570. Lactic acid 1.0. Coronavirus PCR not detected. EKG sinus rhythm with nonspecific ST-T wave changes. Chest x-ray reveals vascular and interstitial markings prominent in the mid to lower lungs bilaterally similar to previous. Consider heart failure versus interstitial infiltrate. CAT scan of the abdomen and pelvis without contrast revealed hepatomegaly and 19.6 cm. Correlate with LFTs and risk factors for underlying hepatocellular disease. 1.3 cm right common iliac chain lymph node is enlarged. Left inguinal femoral chain lymph nodes are borderline enlarged. Findings probably reactive postinflammatory. 1.1 cm indeterminate right adrenal nodule. Moderate stool burden and generalized colonic diverticulosis. Tiny hiatal hernia. Consult was admitted for cardiology and patient has been seen by Dr. Yang for progressive dyspnea secondary to combination of COPD and element of heart failure with preserved systolic function. Plan to continue IV diuretics for 24 hours. 10/07: She has been afebrile, heart rate 86, blood pressure 101/46, pulse ox 90% on 4 L nasal cannula. WBC 11, hemoglobin 7.9, platelet count 319. Sodium 138, potassium 4.3, chloride 95, CO2 37, BUN 31 and creatinine 1.02. Blood sugars have been running 185 up to 405 at its 4 PM yesterday. Patient missed her morning dose of Levemir yesterday. Patient underwent gastric emptying study which was negative for gastroparesis. Patient is continued on IV Lasix at 40 mg every 12 hours. 10/08: Patient is afebrile, heart rate 75, blood pressure 146/57, pulse ox 92% on 3 L nasal cannula. Repeat blood work reveals sodium 138, potassium 4.9, chloride 96, CO2 37, BUN 38 creatinine 1.13. Blood sugars have been running between 211 and 307. Hemoglobin A1c from July is 5.2. Patient has increased dyspnea today along with a dry cough. She complains of shortness of breath with minimal activity, positive orthopnea. Patient was having issues with constipation and last evening and Senokot was added and she states she has had lots of bowel movements. Cardiology increase Lasix every 8 hours. Also Solu-Medrol added. 10/09: Pulse ox is 94% on 3 L nasal cannula. Patient has been afebrile, heart rate 86, blood pressure 134/63. Patient continues to have shortness of breath and nonproductive cough. She is wheezing. Positive shortness of breath with minimal activity. CTA of the chest has been ordered to rule out PE. Blood sugar at 0 was 604 and also high yesterday afternoon, patient received additional NovoLog on top of scale. Levemir 42 units subcu ordered this morning versus her normal dose of 30. Scheduled NovoLog will be increased to 6 units with meals. Solu-Medrol will be decreased to every 12 hours Repeat blood work reveals sodium 131, potassium 5.9, chloride 89, CO2 38, BUN 41 and creatinine 1.15. 10/10: CTA of the chest was suboptimal study without central pulmonary embolism. Cardiomegaly with mild interstitial and alveolar edema raises concern for heart failure exacerbation. No focal consolidation. She is currently on Lasix 40 mg IV 3 times daily. She continues to have shortness of breath, dyspnea with exertion and lower extremity edema. Lasix will be decreased tomorrow to 60 mg oral twice daily. Blood sugars continue to be in the 400s and 500s. She has received additional NovoLog plus scale. Levemir will be increased to 45 units twice daily and scheduled NovoLog increased to 12 units with meals and at at bedtime. Solu-Medrol was discontinued and patient to start prednisone tomorrow. Pulse ox is 95% on 3 L nasal cannula. She's been afebrile, heart rate 60, blood pressure 131/54. Repeat blood work reveals WBC 15.8, hemoglobin 7.5, platelet count 388. Sodium was 129, potassium 6.1 and one dose of Kayexalate 30 mg ordered, oral prednisone scheduled was discontinued and Aldactone decreased to 12.5 mg daily. Chloride 84, CO2 39, BUN 57 and creatinine 1.41. 10/11 and patient examined bedside. Continue have shortness of breath on exertion. For some mild is continued at 40 IV every 8 hours per cardiology. On evaluation as patient's blood work today potassium is improved to 5.1 chloride is 85 bicarb 42 BUN 64 creatinine 1.34 glucose remains high at 444. Lantus increased to 50 twice a day today and NovoLog increased to 15 units with meals continue and follow with sliding scale. Solu-Medrol switched to prednisone 40 mg daily the patient labs tomorrow 10/12 patient examined at bedside. As shortness of breath on exertion and fatigue. Vitals checked in the room such as patient's systolic over 80s. Vitals as checked at 1 PM suggest blood pressure 125/71 with oxygen saturation of 96% on 8 L (55 years. 16 hold patient's blood pressure medication and Lasix today as patient's blood pressure is on the lower side. ABG to be obtained with a pH of 7.34 pCO2 of 81 pO2 59 and bicarb 43 appears to be secondary to metabolic alkalosis secondary to overdiuresis.. Patient to be placed on BiPAP for COPD exacerbation. Hold Lasix and metolazone. Continue Levemir at the current dose of 50 subcu twice a day with insulin aspart 15 subcu before meals and at bedtime. 10/13: Seen today in follow-up. Her hemoglobin is 7.4 and one dose of Ferrlecit IV will be ordered. Lasix will be resumed today at 60 mg oral. Patient utilizes BiPAP last night. She has gotten encouraged to use this during the day as well. 10/14: Patient noted to have a hacking barking cough. She states it started around 1:00 this morning and has been up all night coughing. She denies having any fever or chills. She denies any nausea or vomiting. A rapid Covid test was ordered which surprisingly came back positive. She has been afebrile, heart rate 91, blood pressure 148/63, pulse ox 94% on 2 L nasal cannula. WBC 9.1, hemoglobin 7.6, platelet count 297. D-dimer 0.83, LDH 669. C-reactive protein 1.6. Sodium 133, potassium 4.6, chloride 90, CO2 34, BUN 49 and creatinine 1.31. She is followed by pulmonary medicine. 10/15: Patient has not been able to sleep since 2 AM. She's experienced increased dyspnea. We have documented a 93% pulse ox on 2 L nasal cannula but this does not reflect patient's condition at the time. Patient had increasing dyspnea along with feeling tired and weak. Patient was transitioned to BiPAP and continues to have dyspnea. She has been utilizing BiPAP at nighttime and somewhat during the day for high CO2 has been improving Patient noted to have wheezing and will be placed back on Solu-Medrol 60 mg IV every 6 hours. We are also increasing Levemir and scheduled NovoLog to cover for hyperglycemia. She will be transferred to the cardiac stepdown unit and pulmonary medicine to be notified of patient's condition. Patient has been afebrile, heart rate 93, blood pressure 113/63, pulse ox 97% on 30% BiPAP. Repeat inflammatory markers ordered for tomorrow. 10/16 patient examined bedside continues to complain of fatigue, headache, body aches, sores in the mouth. Vitals obtained suggested temp of 97.6 pulse 87 respiratory rate 20 blood pressure 140/62 oxygen saturation 94% on 3 L. Headache not resolve with Tylenol. We will add morphine 2 mg IV every 6 hours. Nystatin added to help with oral thrush. PTOT consulted for generalized weakness and debility. No labs to evaluate. Repeat labs tomorrow 10/17 patient examined bedside complains of substernal chest pain on coughing which is improved with breathing treatment. EKG obtained showed normal sinus rhythm with supraventricular complexes. No change compared to previous EKG. Troponin 2 ordered. Tessalon Perles added for cough. Patient is on Mucinex and guaifenesin codeine syrup for cough. Patient does sound congested and will switch patient's inhaler from Flovent to Symbicort. Vitals reviewed patient is afebrile pulse of 111 respiratory rate 20 blood pressure 119/60, oxygen saturation 94% on 3 L. No morning labs to review. Patient's blood sugar continues to be elevated. We will increase patient's Lantus to 70 units twice a day with mealtime insulin. Neck supple Medrol reduced to 40 every 8. No plan for him to have severe or Tocilizumab per pulmonary. Repeat labs ordered chest x-ray ordered. Patient likely discharge on Tuesday for possible oxygen needs and would need to be discharged home on oxygen. 10/18: Patient was examined at the bedside she is found sitting up in the chair currently on 3 L of O2 via nasal cannula. Patient states that she is breathing much better. She is utilizing a BiPAP machine at night for sleeping. She does have a BiPAP and CPAP machine at home. Patient states that the CPAP machine is not on enough to help with her shortness of breath at night. Patient remains afebrile heart rate 74, respirations 22, blood pressure 155/72, O2 saturation is 91% on 3 L of nasal O2 which is baseline for the patient. We will repeat CBC in the morning. 10/19: Patient was examined at the bedside she is found sitting up in a chair. Patient is currently on 3 L of O2 via nasal cannula pulse ox 94% which is normal for the patient. Patient did have a difficult night last night with increased shortness of breath she was unable to to sleep. She did spend the majority of the night sitting up in the chair. Patient is concerned about her cough and how fatigued she has after coughing. Patient has increased anxiety due to her diagnosis of COVID-19. A lengthy discussion was had regarding the oxygen needs and her long disease related to COVID-19. Questions were answered. It was discussed in length with patient to possibly go to subacute rehab facility. P atient remains afebrile, heart rate 77, respirations 21 and nonlabored with a cough. Pressure 137/75. 10/20: Patient continued to have significant hypoxia, persistent cough, worsening symptoms require multi hours on the BiPAP on daily basis. The patient about subacute rehab consult social work program coordinator patient will be started PTOT if her clinical component is better by Tuesday hopefully be able to send patient [facility] otherwise continue current management and still be aggressive with her COPD and anemia. 10/21: Patient evaluated this morning, sitting up in the bedside chair. Patient has complaints of worsening shortness of breath, she was noted to be hypoxic 75% on 5 L. She was changed to high flow and oxygen did come up to 90%. Will obtain CTA to rule out PE, Acetazolamide 250 mg twice a day was also added. Will also increase her Solu-Medrol to 60 mg every 8 hours. 10/22: Patient has been afebrile, heart rate 91, blood pressure 135/73, pulse ox 91% on high flow nasal cannula 10 L. Patient was on BiPAP briefly last evening. Blood sugars are running high this morning was 100 but otherwise last evening and yesterday afternoon in the 300s up to 461. CTA of the chest shows no evidence of pulmonary embolism. Scattered airspace and interstitial infiltrates throughout both lung phelps. Diamox 250 mg twice daily was started. Patient is currently on Solu-Medrol 60 mg IV every 8 hours. Patient is seen today sitting up in a recliner. Patient utilized BiPAP during the night. She has been working with therapies. Patient had a pulse ox of 90% at rest at 10 L nasal cannula. She stood for 1 minute and pulse ox dropped to 75%. It took patient's 8 minutes to recover to 85% pulse ox. She is complaining of headache and she does have Fioricet and Tylenol 3 available. Patient's nurses been updated the patient is complaining of headache. Family was updated regarding patient's condition yesterday over the phone. 10/23: Patient continues to have significant shortness of breath. She is currently on nonrebreather and nasal cannula 15 L high flow nasal cannula with pulse ox running between 86-100%. Attempt was made to take her off nonrebreather and she dropped down to 80. Patient continues to have cough and significant shortness of breath. All blood sugar remains elevated despite high- dose of insulins. Additional i short acting insulin ordered for this morning. Levemir will be increased to 75 units twice daily. Discussed CODE STATUS with the patient and she wishes to be full code and be intubated. She is unable to make decisions she states that her and daughter can make decisions together. Prognosis is guarded. 10/24: Patient has been afebrile, heart rate 83, blood pressure 146/67, pulse ox 82-99% on HF nasal cannula and intermittent use of NRB. Patient appears to be comfortable at rest in recliner. She appears to be slightly improved from yesterday. Repeat blood work reveals d-dimer of 1.36. Blood sugars are much lower today at breakfast 72 and last evening 111. Levemir to be given this morning and hold short acting, recheck CBG and 2 hours and use scale. Repeat at 2 hours was 299 and patient covered with scale. Repeat chest x-ray reveals chronic changes without acute pulmonary disease. Xanax was increased frequency to qid. 10/25: Patient's hospital sitting up in chair in no acute distress currently on a nonrebreather that is intermittent. She is also on high flow nasal O2. Patient appears to be comfortable. Patient states that sure breathing has improved since yesterday. The only time she feels short of breath is after she has been coughing. She remains afebrile, heart rate 93, respirations 28, blood pressure 144/62 with a pulse ox of 92% on 15 L nonrebreather 10/26: She is found sitting up in a chair with BiPAP on. Patient states that she did sleep better last night however she is having some difficulty in breathing today. She is in moderate distress. She is complaining of a headache which has been treated with Fioricet however we will change to Toradol for maximum of 6 doses. We will also told in to help with sleeping. One dose of tocilizumab will be given today. Patient did not receive any remdesivir. Patient's blood sugar this morning is 25. We will decrease her dose of insulin before bed. We'll discuss CODE STATUS with daughter when seen on Tuesday. 10/27: She was seen today on BiPAP 100% with pulse ox of 91%. Her pulse ox drop ped down to 86 when she tries to take pills. Patient is much more fatigued and weaker today. She has been afebrile, heart rate 90, respiratory rate 22, blood pressure 132/56. Blood sugars running between 84 and 101. Her scheduled NovoLog has been held in the last 3 doses and this will be discontinued and long acting insulin will be decreased from 75 units twice daily to 60 units twice daily. Patient is maintained on Solu-Medrol 60 mg IV every 8 hours, Lasix is currently oral at 60 mg twice daily. One dose of Tocilizumab has been ordered today by pulmonary medicine. REVIEW OF SYSTEMS Constitutional: No fever, no chills, no night sweats. No weight change. Repo rts worsening weakness and worsening fatigue. No daytime sleepiness. EENT: No headache. No blurred vision or double vision, no loss of vision. No loss of Hearing, no ringing in the ears, no dizziness. No nasal drainage or congestion. No epistaxis. No sore throat. Lungs: Reports shortness of breath continues, reports cough, no sputum production. Reports wheezing. Reports dyspnea with exertion. Cardiovascular: No chest pain, no lower extremity edema. No palpitations. No paroxysmal nocturnal dyspnea. No orthopnea. No lightheadedness or dizziness. No syncopal episodes. Abdominal: Reports upper abdominal pain. No nausea, vomiting. no diarrhea. Reports constipation. No bloody reports tarry stools. Denies bright red bleeding. no loss of appetite. Genitourinary: No dysuria, increased frequency, urgency. No urinary retention. Musculoskeletal: No myalgias. Reports muscle weakness, reports gait dysfunction, no frequent falls. No back pain. No neck pain. Integumentary: No wounds, no lesions. No rash or pruritus. No unusual bruising. Neurologic: No aphasia. No facial droop. No change in mentation. No head injury. No headache. No paralysis. No paresthesia. Psychiatric: No depression. No anxiety. Endocrine: Reported abnormal blood sugars. No weight change. PHYSICAL EXAMINATION Gen: This is a 65-year-old female. She is resting and recliner and appears to be mild respiratory distress and fatigued on BiPAP. HEENT: Head is atraumatic, normocephalic. Pupils equal, round. Sclerae is anicteric. Conjunctiva pale. NECK: Supple. No JVD. No lymphadenopathy. No thyromegaly. LUNGS: Bilateral wheezing. Mild intercostal retractions. Mild accessory muscle usage. HEART: Regular rate and rhythm. Systolic murmur. ABDOMEN: Soft. Bowel sounds are present. No masses. No tenderness. EXTREMITIES: No pedal edema. No calf tenderness. Dorsalis pedis +2 bilaterally. NEUROLOGICAL: Patient is awake, alert and oriented x3. Cranial nerves 2 through 12 are grossly intact. ASSESSMENT AND PLAN 1. Acute on chronic hypoxic respiratory failure with progressive dyspnea seco ndary to COPD and acute on chronic diastolic heart failure as well as Covid 19 pneumonia, POA. Continue Lasix at 60 mg oral daily, Solu-Medrol 60 mg IV every 8 hours. Continue Symbicort, Ventolin inhaler 2 puffs 4 times daily scheduled and as needed, Mucinex 1200 mg twice daily, Robitussin-AC with codeine every 6 hours as needed. Patient is status post 1 dose of Tocilizumab yesterday and repeat dose has been ordered for today. 2. Upper abdominal/lower chest pain with abdominal bloating and early satiety, ruled out gastroparesis. Most likely secondary to constipation and fecal burden. Continue Senokot 2 daily at 1800. 3. 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 Continue Protonix 40 mg oral twice daily. Status post Ferrlecit infusion 1. 4. Diabetes mellitus type 2 with diabetic neuropathy uncontrolled with hyperglycemia secondary to steroids. Continue Levemir decreased to 60 units twice daily, discontinue scheduled NovoLog, continue NovoLog scale before meals and at bedtime. Continue Januvia 100 mg daily. Hemoglobin A1c in July was 5.2. 5. Debility and worsening condition: The patient advance COPD and recurrent GI bleed along with COVID-19 patient is not doing well physically will continue PTOT and might require subacute rehab for at least 2 weeks. 6. COPD with exacerbation. Continue albuterol inhaler, Symbicort, IV Solu- Medrol 7. Hypertension. Continue Lasix. 8. Hyperlipidemia. Continue Lipitor 40 mg daily. 9. Obstructive sleep apnea. Continue BiPAP. 10. Hypothyroidism. Continue levothyroxine 125 g daily. 11. Restless leg syndrome. Continue Requip 2 mg twice daily. 12. Recurrent depression. Continue Prozac 20 mg daily. 13. Oral thrush. Completed course of Diflucan and nystatin 14. Acute kidney injury, chronic kidney disease stage III. 15. Hyperkalemia, resolved status post Kayexalate 1. 16. Metabolic alkalosis secondary to overdiuresis. Diamox continued, continue BiPAP. 17. COVID-19. Detected positive. Continue with respiratory support. 18. Situational anxiety. Continue xanax 0.25 mg qid. 19. GI prophylaxis. Protonix twice daily. 20. DVT prophylaxis. Lovenox 40 mg subcu twice daily. CODE STATUS: Full code Prognosis is guarded. DISCHARGE PLAN To be determined Impression and plan of care have been directed as dictated by the signing physician. Clarice Colón nurse practitioner acting as scribe for signing physician. Objective - Vital Signs Vital signs: Vital Signs Temp 99.1 F 10/26/20 16:00 Pulse 96 10/27/20 04:00 Resp 18 10/27/20 04:00 BP 135/75 10/27/20 04:00 Pulse Ox 90 L 10/27/20 04:00 Intake & Output 10/26/20 10/27/20 10/27/20 18:59 06:59 18:59 Intake Total 650 480 Output Total 1750 300 Balance -1100 180 Intake: Oral 650 480 Output: Urine 1750 300 Other: Voiding Method External Catheter # Bowel Movements 1 - Labs CBC & Chem 7: 10/26/20 07:44 10/26/20 07:44 Labs: Abnormal Lab Results - Last 24 Hours (Table) 10/26/20 10/26/20 10/26/20 Range/Units 07:44 07:44 11:51 ESR 39 H (0-20) mm/hr ABG pH (7.35-7.45) ABG pCO2 (35-45) mmHg ABG pO2 (83-108) mmHg ABG HCO3 (21-25) mmol/L ABG Total CO2 (19-24) mmol/L ABG O2 Saturation (94-97) % POC Glucose (mg/dL) 101 H (75-99) mg/dL Ferritin 431.3 H (10.0-291.0) ng/mL 10/26/20 10/26/20 10/26/20 Range/Units 15:06 16:46 17:10 ESR (0-20) mm/hr ABG pH 7.31 L (7.35-7.45) ABG pCO2 67 H (35-45) mmHg ABG pO2 56 L* (83-108) mmHg ABG HCO3 34 H (21-25) mmol/L ABG Total CO2 36 H (19-24) mmol/L ABG O2 Saturation 85.5 L (94-97) % POC Glucose (mg/dL) 70 L 55 L (75-99) mg/dL Ferritin (10.0-291.0) ng/mL 10/26/20 10/26/20 Range/Units 17:35 17:57 ESR (0-20) mm/hr ABG pH (7.35-7.45) ABG pCO2 (35-45) mmHg ABG pO2 (83-108) mmHg ABG HCO3 (21-25) mmol/L ABG Total CO2 (19-24) mmol/L ABG O2 Saturation (94-97) % POC Glucose (mg/dL) 62 L 101 H (75-99) mg/dL Ferritin (10.0-291.0) ng/mL
--- NOTE | 2020-10-27 12:15 | P.PN ---
Subjective Progress Note Date: 10/27/20 On today's evaluation of 10/27/2020, the patient is being seen for a follow-up. She is a morbidly obese female patient patient with a BMI of 48.1 and the patient is currently in acute hypoxic respiratory failure essentially due to COVID-19 related pneumonia. The patient is currently on BiPAP at a pressure of 12/6 with an FiO2 of 100% and her pulse ox is currently at 90%. She is awake and alert and she is communicating. The blood gases from yesterday showed a component of acute on top of chronic respiratory acidosis. Her pH was at 7.31 with a pCO2 of 56. The patient remains on IV Solu-Medrol 60 mg every 8 hours. The patient is also on Symbicort 160/4.52 puffs twice a day, Spiriva 1 ventilati on day and albuterol HFA on an as-needed basis. She is tolerating the BiPAP without any major difficulties pH is urinating a tidal volume of around 400. No altered mentation on today's evaluation. The patient is known to me from earlier hospitalizations. She has chronic dyspnea on chronic hypoxemic respiratory failure and chronic hypercapnic respiratory failure. She has a component of COPD and diastolic heart failure. She has been maintained on diuretics for many years. She is typically maintained on oxygen at 4 L per minute nasal cannula. She is an ex smoker. No new labs from today. Inflammatory markers including LDH from yesterday was 2229 and the CRP level was at 1.0. Creatinine today's is at 1.24 with a BUN of 70. Objective - Vital Signs Vital signs: Vital Signs Temp 97.6 F 10/27/20 11:22 Pulse 93 10/27/20 11:22 Resp 16 10/27/20 11:22 BP 153/75 10/27/20 11:22 Pulse Ox 94 L 10/27/20 11:22 Intake & Output 10/26/20 10/27/20 10/27/20 18:59 06:59 18:59 Intake Total 650 480 Output Total 1750 300 900 Balance -1100 180 -900 Intake: Oral 650 480 Output: Urine 1750 300 900 Other: Voiding Method External Catheter # Bowel Movements 1 - Exam GENERAL EXAM: Alert, pleasant, obese 65-year-old female patient, on BiPAP and the patient is able to tolerate BiPAP well. She is able to communicate. She is awake and alert. No signs of any CO2 narcosis. She is morbidly obese with obvious cushingoid features. Her body mass index is 48.1. HEAD: Normocephalic. EYES: Normal reaction of pupils, equal size. NOSE: Clear with pink turbinates. THROAT: No erythema or exudates. NECK: No masses, no JVD. CHEST: No chest wall deformity. LUNGS: Equal air entry with bilateral end expiratory wheeze, diminished. CVS: S1 and S2 normal with no audible murmur, regular rhythm. ABDOMEN: No hepatosplenomegaly, normal bowel sounds, no guarding or rigidity. SPINE: No scoliosis or deformity SKIN: No rashes CENTRAL NERVOUS SYSTEM: No focal deficits, tone is normal in all 4 extremities. EXTREMITIES: There is 1-2+ peripheral edema. No clubbing, no cyanosis. Peripheral pulses are intact. - Labs CBC & Chem 7: 10/26/20 07:44 10/26/20 07:44 Labs: Abnormal Lab Results - Last 24 Hours (Table) 10/26/20 10/26/20 10/26/20 Range/Units 07:44 15:06 16:46 ABG pH 7.31 L (7.35-7.45) ABG pCO2 67 H (35-45) mmHg ABG pO2 56 L* (83-108) mmHg ABG HCO3 34 H (21-25) mmol/L ABG Total CO2 36 H (19-24) mmol/L ABG O2 Saturation 85.5 L (94-97) % POC Glucose (mg/dL) 70 L (75-99) mg/dL Ferritin 431.3 H (10.0-291.0) ng/mL 10/26/20 10/26/20 10/26/20 Range/Units 17:10 17:35 17:57 ABG pH (7.35-7.45) ABG pCO2 (35-45) mmHg ABG pO2 (83-108) mmHg ABG HCO3 (21-25) mmol/L ABG Total CO2 (19-24) mmol/L ABG O2 Saturation (94-97) % POC Glucose (mg/dL) 55 L 62 L 101 H (75-99) mg/dL Ferritin (10.0-291.0) ng/mL Assessment and Plan Plan: 1 acute COVID-19 related pneumonia with diffuse breath and pulmonary infiltrates and the patient has coarse crackles in the mid and lower lung phelps bilaterally. Oxygenation as decompensated significantly and the patient is currently on a BiPAP at a pressure of 12/6 with an FiO2 of 100%. She remains on steroids and the patient is on IV Solu-Medrol. The patient is also on Lovenox 40 mg subcu every 12 hours. LDH is elevated. We'll proceed with Tocilizumab due to worsening of her oxygenation despite being on steroids and had a higher risk of developing or progressing into further respiratory insufficiency requiring intubation mechanical ventilation. 2 history of chronic dyspnea with chronic hypoxemic respiratory failure. This is due to a combination of COPD and diastolic heart failure and the patient has been maintained on diuretics for long-term basis. 2 History of prior GI bleed, secondary to duodenal AV malformation. 3 chronic diastolic heart failure 4 COPD, with chronic chronic hypoxic and hypercapnic respiratory failure the patient is demented on oxygen at 4 L and she has home O2. 5 Morbid obesity. 6 History of diabetes mellitus. 7 Prior history of GI bleed. 8 History of pneumonia. 9 Chronic hypoxemic respiratory failure, on chronic nocturnal BiPAP therapy. 10 Diabetic neuropathy. 11 Valvular heart disease/aortic stenosis. 12 Obstructive sleep apnea syndrome. 13 History of hypothyroidism. 14 Previous history of heavy tobacco use. 15 History of depression. 16 chronic lower extremity edema and the patient is taking Lasix 60 mg twice a day Plan Continue IV Solu-Medrol Continue Lovenox Proceed treatment with Tocilizumab 800 mg IV piggyback monitor the serum bicarbonate which should be in the order of 38-40 Monitor inflammatory markers including LDH and CRP Blood sugar management for medicine Critical condition. We'll continue to follow.
[2020-10-27 12:25] LABS: Glucose,Whole Blood 153 mg/dL (75-99)
[2020-10-27 16:56] LABS: Glucose,Whole Blood 82 mg/dL (75-99)
[2020-10-27] MEDS: SENNOSIDES-DOCUSATE SODIUM 1 EACH TAB PO SCH (17:09)
[2020-10-27 20:30] LABS: Glucose,Whole Blood 118 mg/dL (75-99)
[2020-10-27] MEDS: MONTELUKAST 10 MG TAB PO SCH (21:09)
[2020-10-27] MEDS: MELATONIN 3 MG TABLET PO SCH (21:10)
[2020-10-28] MEDS: INSULIN DETEMIR (LEVEMIR) 100 UNIT/ML SYR SQ SCH ×2 (02:43→07:28)
[2020-10-28] MEDS: MORPHINE SULFATE 2 MG/ML SYRINGE IVP PRN ×2 (04:20→18:07)
[2020-10-28 06:35] LABS: Glucose,Whole Blood 77 mg/dL (75-99)
[2020-10-28 06:35] LABS: Glucose,Whole Blood 64 mg/dL (75-99)
[2020-10-28] MEDS: LEVOTHYROXINE 125 MCG TAB PO SCH (06:37)
[2020-10-28] MEDS: PANTOPRAZOLE 40 MG TABLET PO SCH ×2 (06:37→17:34)
[2020-10-28] MEDS: INSULIN ASPART (NovoLOG) 100 UNIT/ML VIAL SQ SCH ×4 (07:29→23:40)
[2020-10-28] MEDS: ALBUTEROL HFA INHALER INHALATION SCH ×4 (08:03→18:59)
[2020-10-28] MEDS: SYMBICORT 160-4.5 MCG INHALER INHALATION SCH ×2 (08:03→18:59)
[2020-10-28] MEDS: TIOTROPIUM 2.5 MCG INHALER INHALATION SCH (08:04)
[2020-10-28] MEDS: CHOLECALCIFEROL 25 MCG (1000 IU) TABLET PO SCH (08:16)
[2020-10-28] MEDS: guaiFENesin 600 MG TABLET.ER PO SCH ×2 (08:16→20:11)
[2020-10-28] MEDS: ZINC SULFATE 220 MG CAP PO SCH (08:16)
[2020-10-28] MEDS: acetaZOLAMIDE 250 MG TAB PO SCH (08:16)
[2020-10-28] MEDS: ENOXAPARIN 40 MG/0.4 ML SYRINGE SQ SCH ×2 (08:16→20:19)
[2020-10-28] MEDS: PREGABALIN 100 MG CAP PO SCH ×2 (08:16→20:12)
[2020-10-28] MEDS: NYSTATIN 100,000 UNIT/ML SUSP 500,000 UNIT/5 ML CUP PO SCH ×4 (08:16→20:23)
[2020-10-28] MEDS: FLUoxetine HCL 20 MG CAP PO SCH (08:17)
[2020-10-28] MEDS: ASCORBIC ACID 500 MG TAB PO SCH (08:17)
[2020-10-28] MEDS: LINAGLIPTIN 5 MG TABLET PO SCH (08:17)
[2020-10-28] MEDS: FUROSEMIDE 20 MG TAB PO SCH ×2 (08:17→17:36)
[2020-10-28] MEDS: BENZONATATE 100 MG CAP PO SCH ×3 (08:17→20:23)
[2020-10-28] MEDS: methylPREDNISolone SOD SUCCI 125 MG/2 ML VIAL IV SCH ×3 (08:21→23:40)
[2020-10-28 10:10] LABS: Albumin 3.6 g/dL (3.5-5.0); Calcium 8.6 mg/dL (8.4-10.2); Total Bilirubin 0.7 mg/dL (0.2-1.3); Total Protein 7.3 g/dL (6.3-8.2)
[2020-10-28 10:16] LABS: Potassium 5.3 mmol/L (3.5-5.1)
[2020-10-28 10:22] LABS: Anisocytosis Slight; Basophils # (A) 0.1 k/uL (0-0.2); Basophils % (A) 0 %; Eosinophils # (A) 0.1 k/uL (0-0.7); Eosinophils % (A) 0 %; HCT 34.7 % (34.0-46.0); HGB 9.9 gm/dL (11.4-16.0); Hypochromasia Marked; Lymphocytes # (A) 2.4 k/uL (1.0-4.8); Lymphocytes % (A) 16 %; MCH 22.4 pg (25.0-35.0); MCHC 28.6 g/dL (31.0-37.0); MCV 78.5 fL (80.0-100.0); Mean Platelet Volume 9.3; Microcytosis Slight; Monocytes # (A) 0.8 k/uL (0-1.0); Monocytes % (A) 5 %; Neutrophils # (A) 11.9 k/uL (1.3-7.7); Neutrophils % (A) 78 %; Poikilocytosis Slight; RBC 4.43 m/uL (3.80-5.40); RDW 19.6 % (11.5-15.5); WBC 15.3 k/uL (3.8-10.6)
[2020-10-28 11:18] LABS: Poikilocytosis (M) Present; Polychromasia Present
[2020-10-28 11:19] LABS: Platelet Count 120 k/uL (150-450)
--- NOTE | 2020-10-28 11:23 | P.PN ---
Subjective Progress Note Date: 10/28/20 HISTORY OF PRESENT ILLNESS This is a 65-year-old female patient of Dr. Deras with past medical history significant for heart failure, COPD, chronic hypoxic respiratory failure on home O2 at 2 L nasal cannula and obstructive sleep apnea on BiPAP support at bedtime, diabetes mellitus type 2 with diabetic neuropathy, chronic diastolic heart failure, valvular heart disease, hypertension, hypothyroidism, GI bleed with anemia. Patient has had multiple admissions and multiple endoscopies for GIB and anemia. 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 The bleeding seems to be stable since that time. They, patient presented to the hospital due to chest pain in the midsternal area across her chest seems to be worse after she eats it was hurting after she had breakfast this morning. She complains of shortness of breath with exertion that is worse than the last time she was admitted. She states her stools have been normal. She does complain of abdominal distention and fullness after eating. Patient presented to the [facility] emergency center for evaluation. Patient was found to be afebrile, heart rate 71, blood pressure 140/61, pulse ox 100% on oxygen. WBC 14.8, hemoglobin 8.2 which is stable for this patient. Platelet count is 310. Sodium 138, potassium 4.2, chloride 97, CO2 35, BUN 39 and creatinine 1.34 which is also patient's baseline. Blood sugar 207. D-dimer 0.89. Alkaline phosphatase 160. Troponin negative. Pro- BNP 2570. Lactic acid 1.0. Coronavirus PCR not detected. EKG sinus rhythm with nonspecific ST-T wave changes. Chest x-ray reveals vascular and interstitial markings prominent in the mid to lower lungs bilaterally similar to previous. Consider heart failure versus interstitial infiltrate. CAT scan of the abdomen and pelvis without contrast revealed hepatomegaly and 19.6 cm. Correlate with LFTs and risk factors for underlying hepatocellular disease. 1.3 cm right common iliac chain lymph node is enlarged. Left inguinal femoral chain lymph nodes are borderline enlarged. Findings probably reactive postinflammatory. 1.1 cm indeterminate right adrenal nodule. Moderate stool burden and generalized colonic diverticulosis. Tiny hiatal hernia. Consult was admitted for cardiology and patient has been seen by Dr. Yang for progressive dyspnea secondary to combination of COPD and element of heart failure with preserved systolic function. Plan to continue IV diuretics for 24 hours. 10/07: She has been afebrile, heart rate 86, blood pressure 101/46, pulse ox 90% on 4 L nasal cannula. WBC 11, hemoglobin 7.9, platelet count 319. Sodium 138, potassium 4.3, chloride 95, CO2 37, BUN 31 and creatinine 1.02. Blood sugars have been running 185 up to 405 at its 4 PM yesterday. Patient missed her morning dose of Levemir yesterday. Patient underwent gastric emptying study which was negative for gastroparesis. Patient is continued on IV Lasix at 40 mg every 12 hours. 10/08: Patient is afebrile, heart rate 75, blood pressure 146/57, pulse ox 92% on 3 L nasal cannula. Repeat blood work reveals sodium 138, potassium 4.9, chloride 96, CO2 37, BUN 38 creatinine 1.13. Blood sugars have been running between 211 and 307. Hemoglobin A1c from July is 5.2. Patient has increased dyspnea today along with a dry cough. She complains of shortness of breath with minimal activity, positive orthopnea. Patient was having issues with constipation and last evening and Senokot was added and she states she has had lots of bowel movements. Cardiology increase Lasix every 8 hours. Also Solu-Medrol added. 10/09: Pulse ox is 94% on 3 L nasal cannula. Patient has been afebrile, heart rate 86, blood pressure 134/63. Patient continues to have shortness of breath and nonproductive cough. She is wheezing. Positive shortness of breath with minimal activity. CTA of the chest has been ordered to rule out PE. Blood sugar at 0 was 604 and also high yesterday afternoon, patient received additional NovoLog on top of scale. Levemir 42 units subcu ordered this morning versus her normal dose of 30. Scheduled NovoLog will be increased to 6 units with meals. Solu-Medrol will be decreased to every 12 hours Repeat blood work reveals sodium 131, potassium 5.9, chloride 89, CO2 38, BUN 41 and creatinine 1.15. 10/10: CTA of the chest was suboptimal study without central pulmonary embolism. Cardiomegaly with mild interstitial and alveolar edema raises concern for heart failure exacerbation. No focal consolidation. She is currently on Lasix 40 mg IV 3 times daily. She continues to have shortness of breath, dyspnea with exertion and lower extremity edema. Lasix will be decreased tomorrow to 60 mg oral twice daily. Blood sugars continue to be in the 400s and 500s. She has received additional NovoLog plus scale. Levemir will be increased to 45 units twice daily and scheduled NovoLog increased to 12 units with meals and at at bedtime. Solu-Medrol was discontinued and patient to start prednisone tomorrow. Pulse ox is 95% on 3 L nasal cannula. She's been afebrile, heart rate 60, blood pressure 131/54. Repeat blood work reveals WBC 15.8, hemoglobin 7.5, platelet count 388. Sodium was 129, potassium 6.1 and one dose of Kayexalate 30 mg ordered, oral prednisone scheduled was discontinued and Aldactone decreased to 12.5 mg daily. Chloride 84, CO2 39, BUN 57 and creatinine 1.41. 10/11 and patient examined bedside. Continue have shortness of breath on exertion. For some mild is continued at 40 IV every 8 hours per cardiology. On evaluation as patient's blood work today potassium is improved to 5.1 chloride is 85 bicarb 42 BUN 64 creatinine 1.34 glucose remains high at 444. Lantus increased to 50 twice a day today and NovoLog increased to 15 units with meals continue and follow with sliding scale. Solu-Medrol switched to prednisone 40 mg daily the patient labs tomorrow 10/12 patient examined at bedside. As shortness of breath on exertion and fatigue. Vitals checked in the room such as patient's systolic over 80s. Vitals as checked at 1 PM suggest blood pressure 125/71 with oxygen saturation of 96% on 8 L (55 years. 16 hold patient's blood pressure medication and Lasix today as patient's blood pressure is on the lower side. ABG to be obtained with a pH of 7.34 pCO2 of 81 pO2 59 and bicarb 43 appears to be secondary to metabolic alkalosis secondary to overdiuresis.. Patient to be placed on BiPAP for COPD exacerbation. Hold Lasix and metolazone. Continue Levemir at the current dose of 50 subcu twice a day with insulin aspart 15 subcu before meals and at bedtime. 10/13: Seen today in follow-up. Her hemoglobin is 7.4 and one dose of Ferrlecit IV will be ordered. Lasix will be resumed today at 60 mg oral. Patient utilizes BiPAP last night. She has gotten encouraged to use this during the day as well. 10/14: Patient noted to have a hacking barking cough. She states it started around 1:00 this morning and has been up all night coughing. She denies having any fever or chills. She denies any nausea or vomiting. A rapid Covid test was ordered which surprisingly came back positive. She has been afebrile, heart rate 91, blood pressure 148/63, pulse ox 94% on 2 L nasal cannula. WBC 9.1, hemoglobin 7.6, platelet count 297. D-dimer 0.83, LDH 669. C-reactive protein 1.6. Sodium 133, potassium 4.6, chloride 90, CO2 34, BUN 49 and creatinine 1.31. She is followed by pulmonary medicine. 10/15: Patient has not been able to sleep since 2 AM. She's experienced increased dyspnea. We have documented a 93% pulse ox on 2 L nasal cannula but this does not reflect patient's condition at the time. Patient had increasing dyspnea along with feeling tired and weak. Patient was transitioned to BiPAP and continues to have dyspnea. She has been utilizing BiPAP at nighttime and somewhat during the day for high CO2 has been improving Patient noted to have wheezing and will be placed back on Solu-Medrol 60 mg IV every 6 hours. We are also increasing Levemir and scheduled NovoLog to cover for hyperglycemia. She will be transferred to the cardiac stepdown unit and pulmonary medicine to be notified of patient's condition. Patient has been afebrile, heart rate 93, blood pressure 113/63, pulse ox 97% on 30% BiPAP. Repeat inflammatory markers ordered for tomorrow. 10/16 patient examined bedside continues to complain of fatigue, headache, body aches, sores in the mouth. Vitals obtained suggested temp of 97.6 pulse 87 respiratory rate 20 blood pressure 140/62 oxygen saturation 94% on 3 L. Headache not resolve with Tylenol. We will add morphine 2 mg IV every 6 hours. Nystatin added to help with oral thrush. PTOT consulted for generalized weakness and debility. No labs to evaluate. Repeat labs tomorrow 10/17 patient examined bedside complains of substernal chest pain on coughing which is improved with breathing treatment. EKG obtained showed normal sinus rhythm with supraventricular complexes. No change compared to previous EKG. Troponin 2 ordered. Tessalon Perles added for cough. Patient is on Mucinex and guaifenesin codeine syrup for cough. Patient does sound congested and will switch patient's inhaler from Flovent to Symbicort. Vitals reviewed patient is afebrile pulse of 111 respiratory rate 20 blood pressure 119/60, oxygen saturation 94% on 3 L. No morning labs to review. Patient's blood sugar continues to be elevated. We will increase patient's Lantus to 70 units twice a day with mealtime insulin. Neck supple Medrol reduced to 40 every 8. No plan for him to have severe or Tocilizumab per pulmonary. Repeat labs ordered chest x-ray ordered. Patient likely discharge on Tuesday for possible oxygen needs and would need to be discharged home on oxygen. 10/18: Patient was examined at the bedside she is found sitting up in the chair currently on 3 L of O2 via nasal cannula. Patient states that she is breathing much better. She is utilizing a BiPAP machine at night for sleeping. She does have a BiPAP and CPAP machine at home. Patient states that the CPAP machine is not on enough to help with her shortness of breath at night. Patient remains afebrile heart rate 74, respirations 22, blood pressure 155/72, O2 saturation is 91% on 3 L of nasal O2 which is baseline for the patient. We will repeat CBC in the morning. 10/19: Patient was examined at the bedside she is found sitting up in a chair. Patient is currently on 3 L of O2 via nasal cannula pulse ox 94% which is normal for the patient. Patient did have a difficult night last night with increased shortness of breath she was unable to to sleep. She did spend the majority of the night sitting up in the chair. Patient is concerned about her cough and how fatigued she has after coughing. Patient has increased anxiety due to her diagnosis of COVID-19. A lengthy discussion was had regarding the oxygen needs and her long disease related to COVID-19. Questions were answered. It was discussed in length with patient to possibly go to subacute rehab facility. P atient remains afebrile, heart rate 77, respirations 21 and nonlabored with a cough. Pressure 137/75. 10/20: Patient continued to have significant hypoxia, persistent cough, worsening symptoms require multi hours on the BiPAP on daily basis. The patient about subacute rehab consult social services counselor patient will be started PTOT if her clinical component is better by Tuesday hopefully be able to send patient to snf rehab otherwise continue current management and still be aggressive with her COPD and anemia. 10/21: Patient evaluated this morning, sitting up in the bedside chair. Patient has complaints of worsening shortness of breath, she was noted to be hypoxic 75% on 5 L. She was changed to high flow and oxygen did come up to 90%. Will obtain CTA to rule out PE, Acetazolamide 250 mg twice a day was also added. Will also increase her Solu-Medrol to 60 mg every 8 hours. 10/22: Patient has been afebrile, heart rate 91, blood pressure 135/73, pulse ox 91% on high flow nasal cannula 10 L. Patient was on BiPAP briefly last evening. Blood sugars are running high this morning was 100 but otherwise last evening and yesterday afternoon in the 300s up to 461. CTA of the chest shows no evidence of pulmonary embolism. Scattered airspace and interstitial infiltrates throughout both lung phelps. Diamox 250 mg twice daily was started. Patient is currently on Solu-Medrol 60 mg IV every 8 hours. Patient is seen today sitting up in a recliner. Patient utilized BiPAP during the night. She has been working with therapies. Patient had a pulse ox of 90% at rest at 10 L nasal cannula. She stood for 1 minute and pulse ox dropped to 75%. It took patient's 8 minutes to recover to 85% pulse ox. She is complaining of headache and she does have Fioricet and Tylenol 3 available. Patient's nurses been updated the patient is complaining of headache. Family was updated regarding patient's condition yesterday over the phone. 10/23: Patient continues to have significant shortness of breath. She is currently on nonrebreather and nasal cannula 15 L high flow nasal cannula with pulse ox running between 86-100%. Attempt was made to take her off nonrebreather and she dropped down to 80. Patient continues to have cough and significant shortness of breath. All blood sugar remains elevated despite high- dose of insulins. Additional i short acting insulin ordered for this morning. Levemir will be increased to 75 units twice daily. Discussed CODE STATUS with the patient and she wishes to be full code and be intubated. She is unable to make decisions she states that her and daughter can make decisions together. Prognosis is guarded. 10/24: Patient has been afebrile, heart rate 83, blood pressure 146/67, pulse ox 82-99% on HF nasal cannula and intermittent use of NRB. Patient appears to be comfortable at rest in recliner. She appears to be slightly improved from yesterday. Repeat blood work reveals d-dimer of 1.36. Blood sugars are much lower today at breakfast 72 and last evening 111. Levemir to be given this morning and hold short acting, recheck CBG and 2 hours and use scale. Repeat at 2 hours was 299 and patient covered with scale. Repeat chest x-ray reveals chronic changes without acute pulmonary disease. Xanax was increased frequency to qid. 10/25: Patient's hospital sitting up in chair in no acute distress currently on a nonrebreather that is intermittent. She is also on high flow nasal O2. Patient appears to be comfortable. Patient states that sure breathing has improved since yesterday. The only time she feels short of breath is after she has been coughing. She remains afebrile, heart rate 93, respirations 28, blood pressure 144/62 with a pulse ox of 92% on 15 L nonrebreather 10/26: She is found sitting up in a chair with BiPAP on. Patient states that she did sleep better last night however she is having some difficulty in breathing today. She is in moderate distress. She is complaining of a headache which has been treated with Fioricet however we will change to Toradol for maximum of 6 doses. We will also told in to help with sleeping. One dose of tocilizumab will be given today. Patient did not receive any remdesivir. Patient's blood sugar this morning is 25. We will decrease her dose of insulin before bed. We'll discuss CODE STATUS with daughter when seen on Tuesday. 10/27: She was seen today on BiPAP 100% with pulse ox of 91%. Her pulse ox drop ped down to 86 when she tries to take pills. Patient is much more fatigued and weaker today. She has been afebrile, heart rate 90, respiratory rate 22, blood pressure 132/56. Blood sugars running between 84 and 101. Her scheduled NovoLog has been held in the last 3 doses and this will be discontinued and long acting insulin will be decreased from 75 units twice daily to 60 units twice daily. Patient is maintained on Solu-Medrol 60 mg IV every 8 hours, Lasix is currently oral at 60 mg twice daily. One dose of Tocilizumab has been ordered today by pulmonary medicine. 10/28: Patient has been on BiPAP through the night and this morning. Pulse ox is anywhere from 81-92% on 100% FiO2. She has been afebrile, heart rate 85, blood pressure 146/77. Blood sugars are running between 64 and 118. She did not receive Levemir last night or this morning and this will be discontinued for now and patient continued on NovoLog scale only. She has been continued on Solu- Medrol 60 mg IV every 8 hours. Repeat blood work reveals WBC 15.3, hemoglobin 9.9, platelet count 120. Sodium 144, potassium 5.3, chloride 101, CO2 40, BUN 74 and creatinine 1.15. Blood sugar 68. Total bilirubin 0.7, AST 70, ALT 46, alkaline phosphatase 162, LDH 2622. PICC line will be ordered and patient started on TPN. Consult with dietitian added. REVIEW OF SYSTEMS Constitutional: No fever, no chills, no night sweats. No weight change. Reports worsening weakness and worsening fatigue. No daytime sleepiness. EENT: No headache. No blurred vision or double vision, no loss of vision. No loss of Hearing, no ringing in the ears, no dizziness. No nasal drainage or congestion. No epistaxis. No sore throat. Lungs: Reports shortness of breath continues, reports cough, no sputum prod uction. Reports wheezing. Reports dyspnea with exertion. Cardiovascular: No chest pain, no lower extremity edema. No palpitations. No paroxysmal nocturnal dyspnea. No orthopnea. No lightheadedness or dizziness. No syncopal episodes. Abdominal: Reports upper abdominal pain. No nausea, vomiting. no diarrhea. Reports constipation. No bloody reports tarry stools. Denies bright red bleeding. no loss of appetite. Genitourinary: No dysuria, increased frequency, urgency. No urinary retention. Musculoskeletal: No myalgias. Reports muscle weakness, reports gait dysfunction, no frequent falls. No back pain. No neck pain. Integumentary: No wounds, no lesions. No rash or pruritus. No unusual bruising. Neurologic: No aphasia. No facial droop. No change in mentation. No head injury. No headache. No paralysis. No paresthesia. Psychiatric: No depression. No anxiety. Endocrine: Reported abnormal blood sugars. No weight change. PHYSICAL EXAMINATION Gen: This is a 65-year-old female. She is resting and recliner and appears to be mild respiratory distress and fatigued on BiPAP. HEENT: Head is atraumatic, normocephalic. Pupils equal, round. Sclerae is anicteric. Conjunctiva pale. NECK: Supple. No JVD. No lymphadenopathy. No thyromegaly. LUNGS: Bilateral wheezing. Mild intercostal retractions. Mild accessory muscle usage. HEART: Regular rate and rhythm. Systolic murmur. ABDOMEN: Soft. Bowel sounds are present. No masses. No tenderness. EXTREMITIES: No pedal edema. No calf tenderness. Dorsalis pedis +2 bilat erally. NEUROLOGICAL: Patient is awake, alert and oriented x3. Cranial nerves 2 through 12 are grossly intact. ASSESSMENT AND PLAN 1. Acute on chronic hypoxic respiratory failure with progressive dyspnea secondary to COPD and acute on chronic diastolic heart failure as well as Covid 19 pneumonia, POA. Continue Lasix at 60 mg oral daily, Solu-Medrol 60 mg IV every 8 hours. Continue Symbicort, Ventolin inhaler 2 puffs 4 times daily scheduled and as needed, Mucinex 1200 mg twice daily, Robitussin-AC with codeine every 6 hours as needed. Patient is status post 1 dose of Tocilizumab yesterday and repeat dose has been ordered for today. 2. Upper abdominal/lower chest pain with abdominal bloating and early satiety, ruled out gastroparesis. Most likely secondary to constipation and fecal burden. Continue Senokot 2 daily at 1800. 3. 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 Continue Protonix 40 mg oral twice daily. Status post Ferrlecit infusion 1. 4. Diabetes mellitus type 2 with diabetic neuropathy uncontrolled with hyperglycemia secondary to steroids. Continue Levemir decreased to 60 units twice daily, discontinue scheduled NovoLog, continue NovoLog scale before meals and at bedtime. Continue Januvia 100 mg daily. Hemoglobin A1c in July was 5.2. 5. Debility and worsening condition: The patient advance COPD and recurrent GI bleed along with COVID-19 patient is not doing well physically will continue PTOT and might require subacute rehab for at least 2 weeks. 6. COPD with exacerbation. Continue albuterol inhaler, Symbicort, IV Solu- Medrol 7. Hypertension. Continue Lasix. 8. Hyperlipidemia. Continue Lipitor 40 mg daily. 9. Obstructive sleep apnea. Continue BiPAP. 10. Hypothyroidism. Continue levothyroxine 125 g daily. 11. Restless leg syndrome. Continue Requip 2 mg twice daily. 12. Recurrent depression. Continue Prozac 20 mg daily. 13. Oral thrush. Completed course of Diflucan and nystatin 14. Acute kidney injury, chronic kidney disease stage III. 15. Hyperkalemia, resolved status post Kayexalate 1. 16. Metabolic alkalosis secondary to overdiuresis. Diamox continued, continue BiPAP. 17. COVID-19. Detected positive. Continue with respiratory support. 18. Situational anxiety. Continue xanax 0.25 mg qid. 19. Moderate protein calorie malnutrition due to lack of oral intake due to oxygen needs and severe illness. PICC line ordered and dietitian consult for ENT. 20. GI prophylaxis. Protonix twice daily. 21. DVT prophylaxis. Lovenox 40 mg subcu twice daily. CODE STATUS: Full code Prognosis is guarded. DISCHARGE PLAN To be determined Impression and plan of care have been directed as dictated by the signing physician. Clarice Colón nurse practitioner acting as scribe for signing physician. Objective - Vital Signs Vital signs: Vital Signs Temp 97.6 F 10/28/20 04:00 Pulse 85 10/28/20 04:00 Resp 19 10/28/20 05:51 BP 146/77 10/28/20 04:00 Pulse Ox 92 L 10/28/20 08:04 Intake & Output 10/27/20 10/28/20 10/28/20 18:59 06:59 18:59 Intake Total 1180 Output Total 1650 1600 Balance -1650 -420 Intake: Oral 1180 Output: Urine 1650 1600 Other: Voiding Method External Catheter - Labs CBC & Chem 7: 10/28/20 09:26 10/28/20 09:26 Labs: Abnormal Lab Results - Last 24 Hours (Table) 10/27/20 10/27/20 10/28/20 Range/Units 11:55 20:23 06:18 POC Glucose (mg/dL) 153 H 118 H 64 L (75-99) mg/dL
[2020-10-28 11:40] LABS: Glucose,Whole Blood 174 mg/dL (75-99)
--- NOTE | 2020-10-28 14:01 | XR ---
EXAMINATION TYPE: XR chest 1V portable DATE OF EXAM: 10/28/2020 COMPARISON: 10/24/2020 INDICATION: Hypoxia,Covid TECHNIQUE: Single frontal view of the chest is obtained. FINDINGS: The heart size is normal. The pulmonary vasculature is prominent. Diffuse increased lung markings are present bilaterally. This appears similar to prior study given th e technique. IMPRESSION: 1. Diffuse bilateral lung infiltrates are nonspecific and stable. Correlate for atypical pneumonia
--- NOTE | 2020-10-28 14:09 | P.PN ---
Subjective Progress Note Date: 10/28/20 On today's evaluation of 10/27/2020, the patient is being seen for a follow-up. She is a morbidly obese female patient patient with a BMI of 48.1 and the patient is currently in acute hypoxic respiratory failure essentially due to COVID-19 related pneumonia. The patient is currently on BiPAP at a pressure of 12/6 with an FiO2 of 100% and her pulse ox is currently at 90%. She is awake and alert and she is communicating. The blood gases from yesterday showed a component of acute on top of chronic respiratory acidosis. Her pH was at 7.31 with a pCO2 of 56. The patient remains on IV Solu-Medrol 60 mg every 8 hours. The patient is also on Symbicort 160/4.52 puffs twice a day, Spiriva 1 ventilati on day and albuterol HFA on an as-needed basis. She is tolerating the BiPAP without any major difficulties pH is urinating a tidal volume of around 400. No altered mentation on today's evaluation. The patient is known to me from earlier hospitalizations. She has chronic dyspnea on chronic hypoxemic respiratory failure and chronic hypercapnic respiratory failure. She has a component of COPD and diastolic heart failure. She has been maintained on diuretics for many years. She is typically maintained on oxygen at 4 L per minute nasal cannula. She is an ex smoker. No new labs from today. Inflammatory markers including LDH from yesterday was 2229 and the CRP level was at 1.0. Creatinine today's is at 1.24 with a BUN of 70. 10/27/2020, the patient is being seen for a follow-up. I initially saw her at telemetry unit and the patient was still on a BiPAP since yesterday at the press ure of 12/6 with an FiO2 of 100%. She was very much BiPAP dependent. Unable to come off the BiPAP as the patient would decompensate and she will become more short of breath and hypoxemic. The patient is still being treated for complications of COVID-19 related pneumonia. The patient is currently on IV Solu-Medrol 60 mg every 8 hours. She was given Tocilizumab 800 mg IV yesterday. She remains on Lovenox for an aggressive subcu for DVT prophylaxis. Keep him was also initiated for nutritional support. In terms of inflammatory markers, the patient d-dimer is at 4.37. LDH level is at 2622.this level is slightly higher compared to yesterday.meanwhile, the patient has a potassium level of 5.3, BUN is at 74 with a creatinine of 1.1. Serum bicarbonate is at 40. D- dimer is at 4.37. The white cell causes 15.3 with a hemoglobin of 9.9. Platelet count is at 120, drop since yesterday. I felt that her breathing has become much more labored compared to yesterday. She was having a high minute ventilation. Intermittent ventilation was above 20 L per minute. She was able to generate adequate tidal volumes, however, she was still tachypneic. Based on all this, the patient was transferred to the intensive care unit. After she arrived to the ICU, the patient started having some oxygen desaturations. Her saturation was running around 76-80%. She would come up to the low 80s and she would fall back and she was noticed to have moderate work of breathing. At that point, I made recommendations to increase the BiPAP pressure 14/10 and monitor the oxygenation while her being 100% FiO2. High likelihood that the patient made further decompensated and may require intubation mechanical ventilation. With that reason, she was moved to the intensive care unit. Objective - Vital Signs Vital signs: Vital Signs Temp 98.3 F 10/28/20 12:00 Pulse 94 10/28/20 13:00 Resp 18 10/28/20 13:00 BP 134/76 10/28/20 12:00 Pulse Ox 80 L 10/28/20 13:00 Intake & Output 10/27/20 10/28/20 10/28/20 18:59 06:59 18:59 Intake Total 1180 118 Output Total 1650 1600 300 Balance -1650 -420 -182 Weight 111.6 kg Intake: Oral 1180 118 Output: Urine 1650 1600 300 Other: Voiding Method External Catheter - Exam GENERAL EXAM: Alert, pleasant, obese 65-year-old female patient, on BiPAP and the patient is able to tolerate BiPAP well. She is able to communicate. She is awake and alert. No signs of any CO2 narcosis. She is morbidly obese with obvious cushingoid features. Her body mass index is 48.1. On today's evaluation, the patient's breathing is labored and the patient is having moderate amount of work of breathing with some abdominal muscle use. Pulse ox remains low in the low 80s while being on a BiPAP at a pressure of 12/6 with an FiO2 100%. HEAD: Normocephalic. EYES: Normal reaction of pupils, equal size. NOSE: Clear with pink turbinates. THROAT: No erythema or exudates. NECK: No masses, no JVD. CHEST: No chest wall deformity. LUNGS: Equal air entry with bilateral end expiratory wheeze, diminished. CVS: S1 and S2 normal with no audible murmur, regular rhythm. ABDOMEN: No hepatosplenomegaly, normal bowel sounds, no guarding or rigidity. SPINE: No scoliosis or deformity SKIN: No rashes CENTRAL NERVOUS SYSTEM: No focal deficits, tone is normal in all 4 extremities. EXTREMITIES: There is 1-2+ peripheral edema. No clubbing, no cyanosis. Peripheral pulses are intact. - Labs CBC & Chem 7: 10/28/20 09:26 10/28/20 09:26 Labs: Abnormal Lab Results - Last 24 Hours (Table) 10/27/20 10/28/20 10/28/20 Range/Units 20:23 06:18 09:26 WBC 15.3 H (3.8-10.6) k/uL Hgb 9.9 L (11.4-16.0) gm/dL MCV 78.5 L (80.0-100.0) fL MCH 22.4 L (25.0-35.0) pg MCHC 28.6 L (31.0-37.0) g/dL RDW 19.6 H (11.5-15.5) % Plt Count 120 L (150-450) k/uL Neutrophils # 11.9 H (1.3-7.7) k/uL D-Dimer (<0.60) mg/L FEU Potassium (3.5-5.1) mmol/L Carbon Dioxide (22-30) mmol/L BUN (7-17) mg/dL Creatinine (0.52-1.04) mg/dL Glucose (74-99) mg/dL POC Glucose (mg/dL) 118 H 64 L (75-99) mg/dL AST (14-36) U/L ALT (4-34) U/L Alkaline Phosphatase (38-126) U/L Lactate Dehydrogenase (313-618) U/L 10/28/20 10/28/20 10/28/20 Range/Units 09:26 11:38 12:12 WBC (3.8-10.6) k/uL Hgb (11.4-16.0) gm/dL MCV (80.0-100.0) fL MCH (25.0-35.0) pg MCHC (31.0-37.0) g/dL RDW (11.5-15.5) % Plt Count (150-450) k/uL Neutrophils # (1.3-7.7) k/uL D-Dimer 4.37 H (<0.60) mg/L FEU Potassium 5.3 H (3.5-5.1) mmol/L Carbon Dioxide 40 H (22-30) mmol/L BUN 74 H (7-17) mg/dL Creatinine 1.15 H (0.52-1.04) mg/dL Glucose 68 L (74-99) mg/dL POC Glucose (mg/dL) 174 H (75-99) mg/dL AST 70 H (14-36) U/L ALT 46 H (4-34) U/L Alkaline Phosphatase 162 H (38-126) U/L Lactate Dehydrogenase 2622 H (313-618) U/L Assessment and Plan Plan: 1 acute COVID-19 related pneumonia with diffuse breath and pulmonary infiltrates and the patient has coarse crackles in the mid and lower lung phelps bilaterally. Oxygenation as decompensated significantly and the patient is currently on a BiPAP at a pressure of 12/6 with an FiO2 of 100%. She remains on steroids and the patient is on IV Solu-Medrol. The patient is also on Lovenox 40 mg subcu every 12 hours. The patient also received Tocilizumab 80 mg IV on 10/27/2020. The patient subsequently was found to have increased work of breathing and the patient was desaturating and for that reason the patient got transferred to the intensive care units. There is a concern of further respiratory compromise requiring intubation mechanical ventilation.Repeat chest x-ray as well as done this morning showed diffuse bilateral lung infiltrates and the findings have been essentially stable compared to the earlier chest x-ray from 10/24/2020. 2 history of chronic dyspnea with chronic hypoxemic respiratory failure. This is due to a combination of COPD and diastolic heart failure and the patient has been maintained on diuretics for long-term basis. 2 History of prior GI bleed, secondary to duodenal AV malformation. 3 chronic diastolic heart failure 4 COPD, with chronic chronic hypoxic and hypercapnic respiratory failure the p mary beth is demented on oxygen at 4 L and she has home O2. 5 Morbid obesity. 6 History of diabetes mellitus. 7 Prior history of GI bleed. 8 History of pneumonia. 9 Chronic hypoxemic respiratory failure, on chronic nocturnal BiPAP therapy. 10 Diabetic neuropathy. 11 Valvular heart disease/aortic stenosis. 12 Obstructive sleep apnea syndrome. 13 History of hypothyroidism. 14 Previous history of heavy tobacco use. 15 History of depression. 16 chronic lower extremity edema and the patient is taking Lasix 60 mg twice a day Plan Continue IV Solu-Medrol Continue Lovenox Tocilizumab 800 mg IV piggybackWas administered on 10/27/2020 monitor the serum bicarbonate which should be in the order of 38-40 Monitor inflammatory markers including LDH and CRP, LDH levels remain to be quite elevated and the patient has a higher level of the d-dimer at 4.37 and the patient remains on Lovenox. Blood sugar management for medicine Critical condition. Transferred to the intensive care unit Swish BiPAP pressures to 14/10 cm of water with an FiO2 of 100% Monitor oxygenation Possibly intubation depending on clinical progress. TPN for nutritional support Condition is critical. Evaluation was on a more than 30 minutes. Time with Patient: Greater than 30
[2020-10-28 14:47] LABS: Ionized Calcium 4.3 mg/dL (4.5-5.3)
[2020-10-28 15:21] LABS: Phosphorus 4.8 mg/dL (2.5-4.5)
[2020-10-28 15:38] LABS: ABG Base Excess 14.8 mmol/L; ABG Oxygen Saturation 79.7 % (94-97); ABG PH 7.36 (7.35-7.45); ABG TCO2 43 mmol/L (19-24); Allen Test Performed? Yes
[2020-10-28 15:41] LABS: ABG HCO3 40 mmol/L (21-25); ABG PCO2 72 mmHg (35-45); ABG PO2 48 mmHg (83-108)
--- NOTE | 2020-10-28 17:27 | P.PCN ---
Date of Procedure: 10/28/20 Preoperative Diagnosis: COVID-19 related pneumonia Postoperative Diagnosis: COVID-19 related pneumonia Procedure(s) Performed: Central line insertion Anesthesia: local Surgeon: Lakisha oGmes Estimated Blood Loss (ml): 0 Pathology: other Condition: critical Disposition: ICU Operative Findings: Indication: Hemodynamic monitoring/Intravenous access. A time-out was completed verifying correct patient, procedure, site, positioning, and implant(s) or special equipment if applicable. The patient was placed in a dependent position appropriate for central line placement based on the vein to be cannulated. The patient right neck was prepped and draped in sterile fashion. 1% Lidocaine was used to anesthetize the surrounding skin area. A triple lumen 9F Cordis catheter was introduced into the RIGHT internal jugular vein using Seldinger technique. The catheter was threaded smoothly over the guide wire and appropriate blood return was obtained. Each lumen of the catheter was evacuated of air and flushed with sterile saline. The catheter was then sutured in place to the skin and a sterile dressing applied. Perfusion to the extremity distal to the point of catheter insertion was checked and found to be adequate. The patient tolerated the procedure well and there were no complications.
[2020-10-28] MEDS: SENNOSIDES-DOCUSATE SODIUM 1 EACH TAB PO SCH (18:06)
--- NOTE | 2020-10-28 18:15 | XR ---
EXAMINATION TYPE: XR chest 1V confirm line [facility] DATE OF EXAM: 10/28/2020 COMPARISON: Earlier same day. HISTORY: Shortness of breath. Line placement. TECHNIQUE: Single frontal view of the chest is obtained. FINDINGS: There is interval placement of right IJ catheter with tip overlying the caudal SVC. There is unchanged bilateral diffuse patchy opacities with background of interstitial edema. No significant pleural effusion, or pneumothorax seen. The cardiac silhouette size is within normal limits. The osseous structures are intact. IMPRESSION: Status post right central venous catheter. No pneumothorax. Unchanged diffuse patchy opacities.
[2020-10-28] MEDS: MELATONIN 3 MG TABLET PO SCH (20:11)
[2020-10-28] MEDS: MONTELUKAST 10 MG TAB PO SCH (20:12)
[2020-10-28] MEDS: PANTOPRAZOLE 40 MG/10 ML VIAL IVP SCH (20:19)
[2020-10-28] MEDS: MORPHINE SULFATE 4 MG/ML SYRINGE IVP PRN (20:51)
[2020-10-28] MEDS ORDERED: SODIUM CHLORIDE 0.9% 1,000 ML IV SCH (21:15)
[2020-10-28 23:33] LABS: Glucose,Whole Blood 147 mg/dL (75-99)
[2020-10-29] MEDS: CLEVIDIPINE BUTYRATE 25 MG in EMPTY BAG 1 BAG IV SCH ×2 (00:52→01:10)
[2020-10-29] MEDS: MORPHINE SULFATE 4 MG/ML SYRINGE IVP PRN (01:02)
[2020-10-29 03:31] LABS: Ferritin 850.4 ng/mL (10.0-291.0)
[2020-10-29 04:59] LABS: Glucose,Whole Blood 132 mg/dL (75-99)
[2020-10-29 05:15] LABS: Anisocytosis Slight; Basophils % (A) 0 %; Eosinophils % (A) 0 %; HCT 29.1 % (34.0-46.0); Hypochromasia Marked; Lymphocytes # (A) 0.2 k/uL (1.0-4.8); Lymphocytes % (A) 1 %; MCH 20.6 pg (25.0-35.0); MCHC 25.9 g/dL (31.0-37.0); MCV 79.8 fL (80.0-100.0); Mean Platelet Volume 9.5; Microcytosis Slight; Monocytes # (A) 0.5 k/uL (0-1.0); Monocytes % (A) 3 %; Neutrophils # (A) 14.3 k/uL (1.3-7.7); Neutrophils % (A) 95 %; RBC 3.64 m/uL (3.80-5.40)
[2020-10-29 05:17] LABS: HGB 7.5 gm/dL (11.4-16.0); Platelet Count 197 k/uL (150-450)
[2020-10-29] MEDS: INSULIN ASPART (NovoLOG) 100 UNIT/ML VIAL SQ SCH ×4 (05:18→23:45)
[2020-10-29] MEDS: LEVOTHYROXINE 125 MCG TAB PO SCH (05:18)
[2020-10-29 05:43] LABS: C Reactive Protein 2.9 mg/dL (<1.0); Calcium 8.3 mg/dL (8.4-10.2); Magnesium 3.2 mg/dL (1.6-2.3); Phosphorus 4.3 mg/dL (2.5-4.5); Potassium 4.5 mmol/L (3.5-5.1)
[2020-10-29] MEDS: MORPHINE SULFATE 2 MG/ML SYRINGE IVP PRN ×2 (05:49→14:29)
[2020-10-29 06:04] LABS: ABG Base Excess 10.9 mmol/L; ABG HCO3 37 mmol/L (21-25); ABG PH 7.31 (7.35-7.45); ABG TCO2 39 mmol/L (19-24)
[2020-10-29 06:22] LABS: ABG PCO2 73 mmHg (35-45)
[2020-10-29 06:23] LABS: ABG PO2 51 mmHg (83-108); Allen Test Performed? no
--- NOTE | 2020-10-29 06:54 | P.PN ---
Subjective Progress Note Date: 10/29/20 On today's evaluation of 10/27/2020, the patient is being seen for a follow-up. She is a morbidly obese female patient patient with a BMI of 48.1 and the patient is currently in acute hypoxic respiratory failure essentially due to COVID-19 related pneumonia. The patient is currently on BiPAP at a pressure of 12/6 with an FiO2 of 100% and her pulse ox is currently at 90%. She is awake and alert and she is communicating. The blood gases from yesterday showed a component of acute on top of chronic respiratory acidosis. Her pH was at 7.31 with a pCO2 of 56. The patient remains on IV Solu-Medrol 60 mg every 8 hours. The patient is also on Symbicort 160/4.52 puffs twice a day, Spiriva 1 ventilati on day and albuterol HFA on an as-needed basis. She is tolerating the BiPAP without any major difficulties pH is urinating a tidal volume of around 400. No altered mentation on today's evaluation. The patient is known to me from earlier hospitalizations. She has chronic dyspnea on chronic hypoxemic respiratory failure and chronic hypercapnic respiratory failure. She has a component of COPD and diastolic heart failure. She has been maintained on diuretics for many years. She is typically maintained on oxygen at 4 L per minute nasal cannula. She is an ex smoker. No new labs from today. Inflammatory markers including LDH from yesterday was 2229 and the CRP level was at 1.0. Creatinine today's is at 1.24 with a BUN of 70. 10/28/2020, the patient is being seen for a follow-up. I initially saw her at telemetry unit and the patient was still on a BiPAP since yesterday at the press ure of 12/6 with an FiO2 of 100%. She was very much BiPAP dependent. Unable to come off the BiPAP as the patient would decompensate and she will become more short of breath and hypoxemic. The patient is still being treated for complications of COVID-19 related pneumonia. The patient is currently on IV Solu-Medrol 60 mg every 8 hours. She was given Tocilizumab 800 mg IV yesterday. She remains on Lovenox for an aggressive subcu for DVT prophylaxis. Keep him was also initiated for nutritional support. In terms of inflammatory markers, the patient d-dimer is at 4.37. LDH level is at 2622.this level is slightly higher compared to yesterday.meanwhile, the patient has a potassium level of 5.3, BUN is at 74 with a creatinine of 1.1. Serum bicarbonate is at 40. D- dimer is at 4.37. The white cell causes 15.3 with a hemoglobin of 9.9. Platelet count is at 120, drop since yesterday. I felt that her breathing has become much more labored compared to yesterday. She was having a high minute ventilation. Intermittent ventilation was above 20 L per minute. She was able to generate adequate tidal volumes, however, she was still tachypneic. Based on all this, the patient was transferred to the intensive care unit. After she arrived to the ICU, the patient started having some oxygen desaturations. Her saturation was running around 76-80%. She would come up to the low 80s and she would fall back and she was noticed to have moderate work of breathing. At that point, I made recommendations to increase the BiPAP pressure 14/10 and monitor the oxygenation while her being 100% FiO2. High likelihood that the patient made further decompensated and may require intubation mechanical ventilation. With that reason, she was moved to the intensive care unit. 21, the patient is in the intensive care unit, transferred yesterday because of worsening respiratory status and respiratory decompensation and the patient was placed on a BiPAP initially the pressures of 12/60 and overnight the BiPAP pressure to be adjusted and ultimately she was brought up to BiPAP pressures of 16/12 cm of water and FiO2 of 100%. She is able to tolerate. Blood gases from today shows a pH of 7.31 with a pCO2 of 72 and pO2 of 50.7. Chest x-ray from today is showing diffuse bilateral pulmonary infiltrates along with some cardiomegaly. No significant interval change compared to yesterday. This is consistent with COVID-19 related pneumonia. A triple lumen catheter was inserted through the right IJ.. The patient remains on IV Solu Medrol 60 mg every 8 hours. The patient is also on Lovenox at a dose of 40 mg subcu every 12 hours. In terms of COVID-19 related inflammatory markers, the patient has a LDH level of 2040 and a CRP level is at 2.9. D-dimer is at 5.85. She is awake. She is following commands. She still communicating. She is very much BiPAP dependent and she is unable to come up to BiPAP because of respiratory insufficiency and hypoxemia. She is able to generate tidal volumes of 400 mL on the BiPAP with respiratory rate of 20 and a minute ventilation of 8.1 L. She was also positioned in her left lateral side with seems to be an adequate spot for her in terms of her oxygenation. Requiring any pressors. She is not requiring any sedation for now. She is calm and comfortable and sedated as of the BiPAP machine. In terms of her blood work, the patient has sodium level of 148 and the creatinine is at 1.26 and the patient is receiving 0.9 saline at the rate of 75 mL an hour. Her white cell causes 15, hemoglobin has dropped down to 7.5 and there is no signs of any external bleeding. This sounded to be monitored. Platelet count is at 197. No other significant issues otherwise for now. The arterial line was also inserted in her right upper extremity. Objective - Vital Signs Vital signs: Vital Signs Temp 98.5 F 10/29/20 04:00 Pulse 96 10/29/20 06:00 Resp 22 10/29/20 06:00 BP 125/65 10/29/20 06:00 Pulse Ox 81 L 10/29/20 06:00 Intake & Output 10/28/20 10/28/20 10/29/20 06:59 18:59 06:59 Intake Total 1180 118 675 Output Total 1600 670 855 Balance -420 -552 -180 Weight 111.6 kg 111.3 kg Intake: IV 675 0.9 675 Oral 1180 118 Output: Urine 1600 670 855 Other: Voiding Method External Catheter External Catheter Indwelling Catheter ABP, PAP, CO, CI - Last Documented Arterial Blood Pressure 126/44 - Exam GENERAL EXAM: Alert, pleasant, obese 65-year-old female patient, on BiPAP and the patient is able to tolerate BiPAP well. She is able to communicate. She is awake and alert. No signs of any CO2 narcosis. She is morbidly obese with obvious cushingoid features. Her body mass index is 47 On today's evaluation, the patient's breathing is labored compared to yesterday and the patient is currently on BiPAP at a pressure of 16/12 with an FiO2 100%. HEAD: Normocephalic. EYES: Normal reaction of pupils, equal size. NOSE: Clear with pink turbinates. THROAT: No erythema or exudates. NECK: No masses, no JVD. CHEST: No chest wall deformity. LUNGS: Equal air entry with bilateral end expiratory wheeze, diminished. CVS: S1 and S2 normal with no audible murmur, regular rhythm. ABDOMEN: No hepatosplenomegaly, normal bowel sounds, no guarding or rigidity. SPINE: No scoliosis or deformity SKIN: No rashes CENTRAL NERVOUS SYSTEM: No focal deficits, tone is normal in all 4 extremities. EXTREMITIES: There is 1-2+ peripheral edema. No clubbing, no cyanosis. Peripheral pulses are intact. - Labs CBC & Chem 7: 10/29/20 04:55 10/29/20 04:55 Labs: Abnormal Lab Results - Last 24 Hours (Table) 10/28/20 10/28/20 10/28/20 Range/Units 09:26 09:26 09:26 WBC 15.3 H (3.8-10.6) k/uL RBC (3.80-5.40) m/uL Hgb 9.9 L (11.4-16.0) gm/dL Hct (34.0-46.0) % MCV 78.5 L (80.0-100.0) fL MCH 22.4 L (25.0-35.0) pg MCHC 28.6 L (31.0-37.0) g/dL RDW 19.6 H (11.5-15.5) % Plt Count 120 L (150-450) k/uL Neutrophils # 11.9 H (1.3-7.7) k/uL Lymphocytes # (1.0-4.8) k/uL D-Dimer (<0.60) mg/L FEU ABG pH (7.35-7.45) ABG pCO2 (35-45) mmHg ABG pO2 (83-108) mmHg ABG HCO3 (21-25) mmol/L ABG Total CO2 (19-24) mmol/L ABG O2 Saturation (94-97) % Sodium (137-145) mmol/L Potassium 5.3 H (3.5-5.1) mmol/L Carbon Dioxide 40 H (22-30) mmol/L BUN 74 H (7-17) mg/dL Creatinine 1.15 H (0.52-1.04) mg/dL Glucose 68 L (74-99) mg/dL POC Glucose (mg/dL) (75-99) mg/dL Calcium (8.4-10.2) mg/dL Ionized Calcium Memo 4.3 L (4.5-5.3) mg/dL Phosphorus 4.8 H (2.5-4.5) mg/dL Magnesium 3.0 H (1.6-2.3) mg/dL Ferritin 850.4 H (10.0-291.0) ng/mL AST 70 H (14-36) U/L ALT 46 H (4-34) U/L Alkaline Phosphatase 162 H (38-126) U/L Lactate Dehydrogenase 2622 H (313-618) U/L C-Reactive Protein (<1.0) mg/dL Triglycerides 249 H (<150) mg/dL 10/28/20 10/28/20 10/28/20 Range/Units 11:38 12:12 15:36 WBC (3.8-10.6) k/uL RBC (3.80-5.40) m/uL Hgb (11.4-16.0) gm/dL Hct (34.0-46.0) % MCV (80.0-100.0) fL MCH (25.0-35.0) pg MCHC (31.0-37.0) g/dL RDW (11.5-15.5) % Plt Count (150-450) k/uL Neutrophils # (1.3-7.7) k/uL Lymphocytes # (1.0-4.8) k/uL D-Dimer 4.37 H (<0.60) mg/L FEU ABG pH (7.35-7.45) ABG pCO2 72 H* (35-45) mmHg ABG pO2 48 L* (83-108) mmHg ABG HCO3 40 H* (21-25) mmol/L ABG Total CO2 43 H (19-24) mmol/L ABG O2 Saturation 79.7 L (94-97) % Sodium (137-145) mmol/L Potassium (3.5-5.1) mmol/L Carbon Dioxide (22-30) mmol/L BUN (7-17) mg/dL Creatinine (0.52-1.04) mg/dL Glucose (74-99) mg/dL POC Glucose (mg/dL) 174 H (75-99) mg/dL Calcium (8.4-10.2) mg/dL Ionized Calcium Memo (4.5-5.3) mg/dL Phosphorus (2.5-4.5) mg/dL Magnesium (1.6-2.3) mg/dL Ferritin (10.0-291.0) ng/mL AST (14-36) U/L ALT (4-34) U/L Alkaline Phosphatase (38-126) U/L Lactate Dehydrogenase (313-618) U/L C-Reactive Protein (<1.0) mg/dL Triglycerides (<150) mg/dL 10/28/20 10/29/20 10/29/20 Range/Units 23:31 04:55 04:55 WBC (3.8-10.6) k/uL RBC (3.80-5.40) m/uL Hgb (11.4-16.0) gm/dL Hct (34.0-46.0) % MCV (80.0-100.0) fL MCH (25.0-35.0) pg MCHC (31.0-37.0) g/dL RDW (11.5-15.5) % Plt Count (150-450) k/uL Neutrophils # (1.3-7.7) k/uL Lymphocytes # (1.0-4.8) k/uL D-Dimer 5.85 H (<0.60) mg/L FEU ABG pH (7.35-7.45) ABG pCO2 (35-45) mmHg ABG pO2 (83-108) mmHg ABG HCO3 (21-25) mmol/L ABG Total CO2 (19-24) mmol/L ABG O2 Saturation (94-97) % Sodium 148 H (137-145) mmol/L Potassium (3.5-5.1) mmol/L Carbon Dioxide 38 H (22-30) mmol/L BUN 73 H (7-17) mg/dL Creatinine 1.26 H (0.52-1.04) mg/dL Glucose 122 H (74-99) mg/dL POC Glucose (mg/dL) 147 H (75-99) mg/dL Calcium 8.3 L (8.4-10.2) mg/dL Ionized Calcium Memo (4.5-5.3) mg/dL Phosphorus (2.5-4.5) mg/dL Magnesium 3.2 H (1.6-2.3) mg/dL Ferritin (10.0-291.0) ng/mL AST (14-36) U/L ALT (4-34) U/L Alkaline Phosphatase (38-126) U/L Lactate Dehydrogenase 2040 H (313-618) U/L C-Reactive Protein 2.9 H (<1.0) mg/dL Triglycerides (<150) mg/dL 10/29/20 10/29/20 10/29/20 Range/Units 04:55 04:58 05:56 WBC 15.0 H (3.8-10.6) k/uL RBC 3.64 L (3.80-5.40) m/uL Hgb 7.5 L D (11.4-16.0) gm/dL Hct 29.1 L (34.0-46.0) % MCV 79.8 L (80.0-100.0) fL MCH 20.6 L (25.0-35.0) pg MCHC 25.9 L (31.0-37.0) g/dL RDW 20.0 H (11.5-15.5) % Plt Count (150-450) k/uL Neutrophils # 14.3 H (1.3-7.7) k/uL Lymphocytes # 0.2 L (1.0-4.8) k/uL D-Dimer (<0.60) mg/L FEU ABG pH 7.31 L (7.35-7.45) ABG pCO2 73 H* (35-45) mmHg ABG pO2 51 L* (83-108) mmHg ABG HCO3 37 H (21-25) mmol/L ABG Total CO2 39 H (19-24) mmol/L ABG O2 Saturation 80.0 L (94-97) % Sodium (137-145) mmol/L Potassium (3.5-5.1) mmol/L Carbon Dioxide (22-30) mmol/L BUN (7-17) mg/dL Creatinine (0.52-1.04) mg/dL Glucose (74-99) mg/dL POC Glucose (mg/dL) 132 H (75-99) mg/dL Calcium (8.4-10.2) mg/dL Ionized Calcium Memo (4.5-5.3) mg/dL Phosphorus (2.5-4.5) mg/dL Magnesium (1.6-2.3) mg/dL Ferritin (10.0-291.0) ng/mL AST (14-36) U/L ALT (4-34) U/L Alkaline Phosphatase (38-126) U/L Lactate Dehydrogenase (313-618) U/L C-Reactive Protein (<1.0) mg/dL Triglycerides (<150) mg/dL Assessment and Plan Plan: 1 acute COVID-19 related pneumonia with diffuse breath and pulmonary infiltrates and the patient has coarse crackles in the mid and lower lung phelps bilaterally. Oxygenation as decompensated significantly and the patient is currently on a BiPAP at a pressure of 16/12 with an FiO2 of 100%. She remains on steroids and the patient is on IV Solu-Medrol. The patient is also on Lovenox 40 mg subcu every 12 hours. The patient also received Tocilizumab 80 mg IV on 10/27/2020. The patient is being monitored very closely here in the ICU. The patient has significant risk for insufficiency. The patient is BiPAP dependent. High-risk for further respiratory decompensated requiring intubation mechanical ventil ation. We'll continue to Support with BiPAP therapy at this point in time. Oxygenation is adequate. Chest x-ray showing diffuse bilateral pulmonary infiltrates. 2 history of chronic dyspnea with chronic hypoxemic respiratory failure. This is due to a combination of COPD and diastolic heart failure and the patient has been maintained on diuretics for long-term basis. 2 History of prior GI bleed, secondary to duodenal AV malformation. Aluminum dropped down to 7.9 and there is no signs of any external bleeding. This is to be monitored very closely. 3 chronic diastolic heart failure 4 COPD, with chronic chronic hypoxic and hypercapnic respiratory failure the patient is demented on oxygen at 4 L and she has home O2. 5 Morbid obesity. 6 History of diabetes mellitus. 7 Prior history of GI bleed. 8 History of pneumonia. 9 Chronic hypoxemic respiratory failure, on chronic nocturnal BiPAP therapy. 10 Diabetic neuropathy. 11 Valvular heart disease/aortic stenosis. 12 Obstructive sleep apnea syndrome. Maintained on CPAP on outpatient basis 13 History of hypothyroidism. 14 Previous history of heavy tobacco use. 15 History of depression. 16 chronic lower extremity edema and the patient is taking Lasix 60 mg twice a day , currently off diuretics and the patient was taken off diuretics yesterday. Plan Continue IV Solu-Medrol Continue Lovenox Tocilizumab 800 mg IV piggybag was administered on 10/27/2020 monitor the serum bicarbonate which should be in the order of 38-40 Monitor inflammatory markers Blood sugar management for medicine, then a size. The patient is currently on a sliding scale insulin coverage Continue BiPAP for respiratory support at a pressure 15/12 cm of water with an FiO2 of 1% Monitor blood gas Monitor chest x-ray Start TPN for nutritional support, the patient has a triple-lumen catheter in right IJ antibiotic and he obviously initiated. Change IV fluids to half-normal saline at the rate of 75 mL an hour Monitor electrolytes We'll continue to follow High-risk for intubation mechanical ventilation Evaluation was on a more than 30 minutes. Time with Patient: Greater than 30
[2020-10-29] MEDS ORDERED: SODIUM CHLORIDE 0.45% 1,000 ML IV SCH (07:00)
[2020-10-29] MEDS: ALBUTEROL HFA INHALER INHALATION SCH ×4 (07:07→20:33)
[2020-10-29] MEDS: TIOTROPIUM 2.5 MCG INHALER INHALATION SCH (07:07)
[2020-10-29] MEDS: SYMBICORT 160-4.5 MCG INHALER INHALATION SCH ×2 (07:07→20:33)
--- NOTE | 2020-10-29 07:41 | XR ---
EXAMINATION TYPE: XR chest 1V portable DATE OF EXAM: 10/29/2020 HISTORY: Shortness of breath. COMPARISON: 10/28/2020 TECHNIQUE: Single view of the chest is submitted. FINDINGS: Demonstrated are scattered senescent parenchymal change. Diffuse infiltrates seen throughout both lung phelps unchanged from prior study. The heart is stable. Hilar and mediastinal structures are within normal limits. Degenerative changes are seen of the dorsal spine. IMPRESSION: 1. Diffuse infiltrates seen throughout both lung phelps unchanged from prior study.
[2020-10-29] MEDS: NYSTATIN 100,000 UNIT/ML SUSP 500,000 UNIT/5 ML CUP PO SCH ×4 (07:48→20:03)
[2020-10-29] MEDS: PREGABALIN 100 MG CAP PO SCH ×2 (07:48→20:13)
[2020-10-29] MEDS: FUROSEMIDE 20 MG TAB PO SCH ×2 (07:49→17:37)
[2020-10-29] MEDS: FLUoxetine HCL 20 MG CAP PO SCH (07:49)
[2020-10-29] MEDS: ZINC SULFATE 220 MG CAP PO SCH (07:49)
[2020-10-29] MEDS: LINAGLIPTIN 5 MG TABLET PO SCH (07:49)
[2020-10-29] MEDS: ASCORBIC ACID 500 MG TAB PO SCH (07:49)
[2020-10-29] MEDS: BENZONATATE 100 MG CAP PO SCH ×3 (07:49→20:20)
[2020-10-29] MEDS: guaiFENesin 600 MG TABLET.ER PO SCH ×2 (07:49→20:00)
[2020-10-29] MEDS: CHOLECALCIFEROL 25 MCG (1000 IU) TABLET PO SCH (07:49)
[2020-10-29 08:43] LABS: ABG Base Excess 9.5 mmol/L; ABG HCO3 36 mmol/L (21-25); ABG PCO2 69 mmHg (35-45); ABG PH 7.32 (7.35-7.45); ABG TCO2 38 mmol/L (19-24)
[2020-10-29] MEDS ORDERED: FAT EMULSION 20% 250 ML in EMPTY BAG 1 BAG IV SCH ×2 (09:00→20:00)
[2020-10-29 09:12] LABS: ABG PO2 49 mmHg (83-108); Allen Test Performed? no
[2020-10-29] MEDS: PANTOPRAZOLE 40 MG/10 ML VIAL IVP SCH ×2 (09:53→20:12)
[2020-10-29] MEDS: methylPREDNISolone SOD SUCCI 125 MG/2 ML VIAL IV SCH ×3 (09:54→23:45)
[2020-10-29] MEDS: ENOXAPARIN 40 MG/0.4 ML SYRINGE SQ SCH ×2 (09:54→20:13)
--- NOTE | 2020-10-29 10:33 | P.PN ---
Subjective Progress Note Date: 10/29/20 HISTORY OF PRESENT ILLNESS This is a 65-year-old female patient of Dr. Deras with past medical history significant for heart failure, COPD, chronic hypoxic respiratory failure on home O2 at 2 L nasal cannula and obstructive sleep apnea on BiPAP support at bedtime, diabetes mellitus type 2 with diabetic neuropathy, chronic diastolic heart failure, valvular heart disease, hypertension, hypothyroidism, GI bleed with anemia. Patient has had multiple admissions and multiple endoscopies for GIB and anemia. 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 The bleeding seems to be stable since that time. They, patient presented to the hospital due to chest pain in the midsternal area across her chest seems to be worse after she eats it was hurting after she had breakfast this morning. She complains of shortness of breath with exertion that is worse than the last time she was admitted. She states her stools have been normal. She does complain of abdominal distention and fullness after eating. Patient presented to the [facility] emergency center for evaluation. Patient was found to be afebrile, heart rate 71, blood pressure 140/61, pulse ox 100% on oxygen. WBC 14.8, hemoglobin 8.2 which is stable for this patient. Platelet count is 310. Sodium 138, potassium 4.2, chloride 97, CO2 35, BUN 39 and creatinine 1.34 which is also patient's baseline. Blood sugar 207. D-dimer 0.89. Alkaline phosphatase 160. Troponin negative. Pro- BNP 2570. Lactic acid 1.0. Coronavirus PCR not detected. EKG sinus rhythm with nonspecific ST-T wave changes. Chest x-ray reveals vascular and interstitial markings prominent in the mid to lower lungs bilaterally similar to previous. Consider heart failure versus interstitial infiltrate. CAT scan of the abdomen and pelvis without contrast revealed hepatomegaly and 19.6 cm. Correlate with LFTs and risk factors for underlying hepatocellular disease. 1.3 cm right common iliac chain lymph node is enlarged. Left inguinal femoral chain lymph nodes are borderline enlarged. Findings probably reactive postinflammatory. 1.1 cm indeterminate right adrenal nodule. Moderate stool burden and generalized colonic diverticulosis. Tiny hiatal hernia. Consult was admitted for cardiology and patient has been seen by Dr. Yang for progressive dyspnea secondary to combination of COPD and element of heart failure with preserved systolic function. Plan to continue IV diuretics for 24 hours. 10/07: She has been afebrile, heart rate 86, blood pressure 101/46, pulse ox 90% on 4 L nasal cannula. WBC 11, hemoglobin 7.9, platelet count 319. Sodium 138, potassium 4.3, chloride 95, CO2 37, BUN 31 and creatinine 1.02. Blood sugars have been running 185 up to 405 at its 4 PM yesterday. Patient missed her morning dose of Levemir yesterday. Patient underwent gastric emptying study which was negative for gastroparesis. Patient is continued on IV Lasix at 40 mg every 12 hours. 10/08: Patient is afebrile, heart rate 75, blood pressure 146/57, pulse ox 92% on 3 L nasal cannula. Repeat blood work reveals sodium 138, potassium 4.9, chloride 96, CO2 37, BUN 38 creatinine 1.13. Blood sugars have been running between 211 and 307. Hemoglobin A1c from July is 5.2. Patient has increased dyspnea today along with a dry cough. She complains of shortness of breath with minimal activity, positive orthopnea. Patient was having issues with constipation and last evening and Senokot was added and she states she has had lots of bowel movements. Cardiology increase Lasix every 8 hours. Also Solu-Medrol added. 10/09: Pulse ox is 94% on 3 L nasal cannula. Patient has been afebrile, heart rate 86, blood pressure 134/63. Patient continues to have shortness of breath and nonproductive cough. She is wheezing. Positive shortness of breath with minimal activity. CTA of the chest has been ordered to rule out PE. Blood sugar at 0 was 604 and also high yesterday afternoon, patient received additional NovoLog on top of scale. Levemir 42 units subcu ordered this morning versus her normal dose of 30. Scheduled NovoLog will be increased to 6 units with meals. Solu-Medrol will be decreased to every 12 hours Repeat blood work reveals sodium 131, potassium 5.9, chloride 89, CO2 38, BUN 41 and creatinine 1.15. 10/10: CTA of the chest was suboptimal study without central pulmonary embolism. Cardiomegaly with mild interstitial and alveolar edema raises concern for heart failure exacerbation. No focal consolidation. She is currently on Lasix 40 mg IV 3 times daily. She continues to have shortness of breath, dyspnea with exertion and lower extremity edema. Lasix will be decreased tomorrow to 60 mg oral twice daily. Blood sugars continue to be in the 400s and 500s. She has received additional NovoLog plus scale. Levemir will be increased to 45 units twice daily and scheduled NovoLog increased to 12 units with meals and at at bedtime. Solu-Medrol was discontinued and patient to start prednisone tomorrow. Pulse ox is 95% on 3 L nasal cannula. She's been afebrile, heart rate 60, blood pressure 131/54. Repeat blood work reveals WBC 15.8, hemoglobin 7.5, platelet count 388. Sodium was 129, potassium 6.1 and one dose of Kayexalate 30 mg ordered, oral prednisone scheduled was discontinued and Aldactone decreased to 12.5 mg daily. Chloride 84, CO2 39, BUN 57 and creatinine 1.41. 10/11 and patient examined bedside. Continue have shortness of breath on exertion. For some mild is continued at 40 IV every 8 hours per cardiology. On evaluation as patient's blood work today potassium is improved to 5.1 chloride is 85 bicarb 42 BUN 64 creatinine 1.34 glucose remains high at 444. Lantus increased to 50 twice a day today and NovoLog increased to 15 units with meals continue and follow with sliding scale. Solu-Medrol switched to prednisone 40 mg daily the patient labs tomorrow 10/12 patient examined at bedside. As shortness of breath on exertion and fatigue. Vitals checked in the room such as patient's systolic over 80s. Vitals as checked at 1 PM suggest blood pressure 125/71 with oxygen saturation of 96% on 8 L (55 years. 16 hold patient's blood pressure medication and Lasix today as patient's blood pressure is on the lower side. ABG to be obtained with a pH of 7.34 pCO2 of 81 pO2 59 and bicarb 43 appears to be secondary to metabolic alkalosis secondary to overdiuresis.. Patient to be placed on BiPAP for COPD exacerbation. Hold Lasix and metolazone. Continue Levemir at the current dose of 50 subcu twice a day with insulin aspart 15 subcu before meals and at bedtime. 10/13: Seen today in follow-up. Her hemoglobin is 7.4 and one dose of Ferrlecit IV will be ordered. Lasix will be resumed today at 60 mg oral. Patient utilizes BiPAP last night. She has gotten encouraged to use this during the day as well. 10/14: Patient noted to have a hacking barking cough. She states it started around 1:00 this morning and has been up all night coughing. She denies having any fever or chills. She denies any nausea or vomiting. A rapid Covid test was ordered which surprisingly came back positive. She has been afebrile, heart rate 91, blood pressure 148/63, pulse ox 94% on 2 L nasal cannula. WBC 9.1, hemoglobin 7.6, platelet count 297. D-dimer 0.83, LDH 669. C-reactive protein 1.6. Sodium 133, potassium 4.6, chloride 90, CO2 34, BUN 49 and creatinine 1.31. She is followed by pulmonary medicine. 10/15: Patient has not been able to sleep since 2 AM. She's experienced increased dyspnea. We have documented a 93% pulse ox on 2 L nasal cannula but this does not reflect patient's condition at the time. Patient had increasing dyspnea along with feeling tired and weak. Patient was transitioned to BiPAP and continues to have dyspnea. She has been utilizing BiPAP at nighttime and somewhat during the day for high CO2 has been improving Patient noted to have wheezing and will be placed back on Solu-Medrol 60 mg IV every 6 hours. We are also increasing Levemir and scheduled NovoLog to cover for hyperglycemia. She will be transferred to the cardiac stepdown unit and pulmonary medicine to be notified of patient's condition. Patient has been afebrile, heart rate 93, blood pressure 113/63, pulse ox 97% on 30% BiPAP. Repeat inflammatory markers ordered for tomorrow. 10/16 patient examined bedside continues to complain of fatigue, headache, body aches, sores in the mouth. Vitals obtained suggested temp of 97.6 pulse 87 respiratory rate 20 blood pressure 140/62 oxygen saturation 94% on 3 L. Headache not resolve with Tylenol. We will add morphine 2 mg IV every 6 hours. Nystatin added to help with oral thrush. PTOT consulted for generalized weakness and debility. No labs to evaluate. Repeat labs tomorrow 10/17 patient examined bedside complains of substernal chest pain on coughing which is improved with breathing treatment. EKG obtained showed normal sinus rhythm with supraventricular complexes. No change compared to previous EKG. Troponin 2 ordered. Tessalon Perles added for cough. Patient is on Mucinex and guaifenesin codeine syrup for cough. Patient does sound congested and will switch patient's inhaler from Flovent to Symbicort. Vitals reviewed patient is afebrile pulse of 111 respiratory rate 20 blood pressure 119/60, oxygen saturation 94% on 3 L. No morning labs to review. Patient's blood sugar continues to be elevated. We will increase patient's Lantus to 70 units twice a day with mealtime insulin. Neck supple Medrol reduced to 40 every 8. No plan for him to have severe or Tocilizumab per pulmonary. Repeat labs ordered chest x-ray ordered. Patient likely discharge on Tuesday for possible oxygen needs and would need to be discharged home on oxygen. 10/18: Patient was examined at the bedside she is found sitting up in the chair currently on 3 L of O2 via nasal cannula. Patient states that she is breathing much better. She is utilizing a BiPAP machine at night for sleeping. She does have a BiPAP and CPAP machine at home. Patient states that the CPAP machine is not on enough to help with her shortness of breath at night. Patient remains afebrile heart rate 74, respirations 22, blood pressure 155/72, O2 saturation is 91% on 3 L of nasal O2 which is baseline for the patient. We will repeat CBC in the morning. 10/19: Patient was examined at the bedside she is found sitting up in a chair. Patient is currently on 3 L of O2 via nasal cannula pulse ox 94% which is normal for the patient. Patient did have a difficult night last night with increased shortness of breath she was unable to to sleep. She did spend the majority of the night sitting up in the chair. Patient is concerned about her cough and how fatigued she has after coughing. Patient has increased anxiety due to her diagnosis of COVID-19. A lengthy discussion was had regarding the oxygen needs and her long disease related to COVID-19. Questions were answered. It was discussed in length with patient to possibly go to subacute rehab facility. P atient remains afebrile, heart rate 77, respirations 21 and nonlabored with a cough. Pressure 137/75. 10/20: Patient continued to have significant hypoxia, persistent cough, worsening symptoms require multi hours on the BiPAP on daily basis. The patient about subacute rehab consult psychosocial rehabilitation counselor patient will be started PTOT if her clinical component is better by Tuesday hopefully be able to send patient to senior living rehab otherwise continue current management and still be aggressive with her COPD and anemia. 10/21: Patient evaluated this morning, sitting up in the bedside chair. Patient has complaints of worsening shortness of breath, she was noted to be hypoxic 75% on 5 L. She was changed to high flow and oxygen did come up to 90%. Will obtain CTA to rule out PE, Acetazolamide 250 mg twice a day was also added. Will also increase her Solu-Medrol to 60 mg every 8 hours. 10/22: Patient has been afebrile, heart rate 91, blood pressure 135/73, pulse ox 91% on high flow nasal cannula 10 L. Patient was on BiPAP briefly last evening. Blood sugars are running high this morning was 100 but otherwise last evening and yesterday afternoon in the 300s up to 461. CTA of the chest shows no evidence of pulmonary embolism. Scattered airspace and interstitial infiltrates throughout both lung phelps. Diamox 250 mg twice daily was started. Patient is currently on Solu-Medrol 60 mg IV every 8 hours. Patient is seen today sitting up in a recliner. Patient utilized BiPAP during the night. She has been working with therapies. Patient had a pulse ox of 90% at rest at 10 L nasal cannula. She stood for 1 minute and pulse ox dropped to 75%. It took patient's 8 minutes to recover to 85% pulse ox. She is complaining of headache and she does have Fioricet and Tylenol 3 available. Patient's nurses been updated the patient is complaining of headache. Family was updated regarding patient's condition yesterday over the phone. 10/23: Patient continues to have significant shortness of breath. She is currently on nonrebreather and nasal cannula 15 L high flow nasal cannula with pulse ox running between 86-100%. Attempt was made to take her off nonrebreather and she dropped down to 80. Patient continues to have cough and significant shortness of breath. All blood sugar remains elevated despite high- dose of insulins. Additional i short acting insulin ordered for this morning. Levemir will be increased to 75 units twice daily. Discussed CODE STATUS with the patient and she wishes to be full code and be intubated. She is unable to make decisions she states that her and daughter can make decisions together. Prognosis is guarded. 10/24: Patient has been afebrile, heart rate 83, blood pressure 146/67, pulse ox 82-99% on HF nasal cannula and intermittent use of NRB. Patient appears to be comfortable at rest in recliner. She appears to be slightly improved from yesterday. Repeat blood work reveals d-dimer of 1.36. Blood sugars are much lower today at breakfast 72 and last evening 111. Levemir to be given this morning and hold short acting, recheck CBG and 2 hours and use scale. Repeat at 2 hours was 299 and patient covered with scale. Repeat chest x-ray reveals chronic changes without acute pulmonary disease. Xanax was increased frequency to qid. 10/25: Patient's hospital sitting up in chair in no acute distress currently on a nonrebreather that is intermittent. She is also on high flow nasal O2. Patient appears to be comfortable. Patient states that sure breathing has improved since yesterday. The only time she feels short of breath is after she has been coughing. She remains afebrile, heart rate 93, respirations 28, blood pressure 144/62 with a pulse ox of 92% on 15 L nonrebreather 10/26: She is found sitting up in a chair with BiPAP on. Patient states that she did sleep better last night however she is having some difficulty in breathing today. She is in moderate distress. She is complaining of a headache which has been treated with Fioricet however we will change to Toradol for maximum of 6 doses. We will also told in to help with sleeping. One dose of tocilizumab will be given today. Patient did not receive any remdesivir. Patient's blood sugar this morning is 25. We will decrease her dose of insulin before bed. We'll discuss CODE STATUS with daughter when seen on Tuesday. 10/27: She was seen today on BiPAP 100% with pulse ox of 91%. Her pulse ox drop ped down to 86 when she tries to take pills. Patient is much more fatigued and weaker today. She has been afebrile, heart rate 90, respiratory rate 22, blood pressure 132/56. Blood sugars running between 84 and 101. Her scheduled NovoLog has been held in the last 3 doses and this will be discontinued and long acting insulin will be decreased from 75 units twice daily to 60 units twice daily. Patient is maintained on Solu-Medrol 60 mg IV every 8 hours, Lasix is currently oral at 60 mg twice daily. One dose of Tocilizumab has been ordered today by pulmonary medicine. 10/28: Patient has been on BiPAP through the night and this morning. Pulse ox is anywhere from 81-92% on 100% FiO2. She has been afebrile, heart rate 85, blood pressure 146/77. Blood sugars are running between 64 and 118. She did not receive Levemir last night or this morning and this will be discontinued for now and patient continued on NovoLog scale only. She has been continued on Solu- Medrol 60 mg IV every 8 hours. Repeat blood work reveals WBC 15.3, hemoglobin 9.9, platelet count 120. Sodium 144, potassium 5.3, chloride 101, CO2 40, BUN 74 and creatinine 1.15. Blood sugar 68. Total bilirubin 0.7, AST 70, ALT 46, alkaline phosphatase 162, LDH 2622. PICC line will be ordered and patient started on TPN. Consult with dietitian added. 10/29: She was transferred into the intensive care unit yesterday afternoon due to worsening respiratory status and decompensation. She remains on BiPAP, triple- lumen catheter was placed in the right IJ. Pulse ox is 78% on 100% FiO2 on BiPAP. She's been afebrile, heart rate 110, blood pressure 136/58, respiratory rate 22. Repeat chest x-ray reveals diffuse infiltrates seen throughout both lung phelps unchanged. Repeat blood work reveals WBC 15, hemoglobin 7.5, platelet count 197. Sodium 148, potassium 4.5, chloride 107, CO2 38, BUN 73 creatinine 1.26. Blood sugar 122. Phosphorus 4.3, magnesium 3.2, LDH 2040, C- reactive protein 2.9. Capillary blood glucose running between 132 and 174. Patient states that she is feeling well short of breath today. Face time was performed with Dr. Denny and patient's daughter and the patient. REVIEW OF SYSTEMS Constitutional: No fever, no chills, no night sweats. No weight change. Report s worsening weakness and worsening fatigue. No daytime sleepiness. EENT: No headache. No blurred vision or double vision, no loss of vision. No loss of Hearing, no ringing in the ears, no dizziness. No nasal drainage or congestion. No epistaxis. No sore throat. Lungs: Reports shortness of breath continues, reports cough, no sputum production. Reports wheezing. Reports dyspnea with exertion. Cardiovascular: No chest pain, no lower extremity edema. No palpitations. No paroxysmal nocturnal dyspnea. No orthopnea. No lightheadedness or dizziness. No syncopal episodes. Abdominal: Reports upper abdominal pain. No nausea, vomiting. no diarrhea. Reports constipation. No bloody reports tarry stools. Denies bright red bleeding. no loss of appetite. Genitourinary: No dysuria, increased frequency, urgency. No urinary retention. Musculoskeletal: No myalgias. Reports muscle weakness, reports gait dysfunction, no frequent falls. No back pain. No neck pain. Integumentary: No wounds, no lesions. No rash or pruritus. No unusual bruising. Neurologic: No aphasia. No facial droop. No change in mentation. No head injury. No headache. No paralysis. No paresthesia. Psychiatric: No depression. Reports anxiety. Endocrine: Reported abnormal blood sugars. No weight change. PHYSICAL EXAMINATION Gen: This is a 65-year-old female. She is in ICU bed and appears to be mild respiratory distress and fatigued on BiPAP. HEENT: Head is atraumatic, normocephalic. Pupils equal, round. Sclerae is anicteric. Conjunctiva pale. NECK: Supple. No JVD. No lymphadenopathy. No thyromegaly. LUNGS: Bilateral wheezing. Mild intercostal retractions. Mild accessory muscle usage. HEART: Regular rate and rhythm. Systolic murmur. ABDOMEN: Soft. Bowel sounds are present. No masses. No tenderness. EXTREMITIES: No pedal edema. No calf tenderness. Dorsalis pedis +2 bilaterally. NEUROLOGICAL: Patient is awake, alert and oriented x3. Cranial nerves 2 through 12 are grossly intact. ASSESSMENT AND PLAN 1. Acute on chronic hypoxic respiratory failure with progressive dyspnea secondary to COPD and acute on chronic diastolic heart failure as well as Covid 19 pneumonia, POA. Continue Lasix at 60 mg oral daily, Solu-Medrol 60 mg IV every 8 hours. Continue Symbicort, Ventolin inhaler 2 puffs 4 times daily scheduled and as needed, Mucinex 1200 mg twice daily, Robitussin-AC with codeine every 6 hours as needed. Patient is status post 1 dose of Tocilizumab yesterday and repeat dose has been ordered for today. 2. Upper abdominal/lower chest pain with abdominal bloating and early satiety, ruled out gastroparesis. Most likely secondary to constipation and fecal burden. Continue Senokot 2 daily at 1800. 3. 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 Continue Protonix 40 mg oral twice daily. Status post Ferrlecit infusion 1. 4. Diabetes mellitus type 2 with diabetic neuropathy uncontrolled with hyperglycemia secondary to steroids. Continue Levemir decreased to 60 units t wice daily, discontinue scheduled NovoLog, continue NovoLog scale before meals and at bedtime. Continue Januvia 100 mg daily. Hemoglobin A1c in July was 5.2. 5. Debility and worsening condition: The patient advance COPD and recurrent GI bleed along with COVID-19 patient is not doing well physically will continue PTOT and might require subacute rehab for at least 2 weeks. 6. COPD with exacerbation. Continue albuterol inhaler, Symbicort, IV Solu- Medrol 7. Hypertension. Continue Lasix. 8. Hyperlipidemia. Continue Lipitor 40 mg daily. 9. Obstructive sleep apnea. Continue BiPAP. 10. Hypothyroidism. Continue levothyroxine 125 g daily. 11. Restless leg syndrome. Continue Requip 2 mg twice daily. 12. Recurrent depression. Continue Prozac 20 mg daily. 13. Oral thrush. Completed course of Diflucan and nystatin 14. Acute kidney injury, chronic kidney disease stage III. 15. Hyperkalemia, resolved status post Kayexalate 1. 16. Metabolic alkalosis secondary to overdiuresis. Diamox discontinue, continue BiPAP. 17. COVID-19. Detected positive. Continue with respiratory support. 18. Situational anxiety. Continue xanax 0.25 mg qid. 19. Moderate protein calorie malnutrition due to lack of oral intake due to oxygen needs and severe illness. PICC line ordered and dietitian consult for TPN. 20. GI prophylaxis. Protonix twice daily. 21. DVT prophylaxis. Lovenox 40 mg subcu twice daily. CODE STATUS: Full code Prognosis is guarded. DISCHARGE PLAN To be determined Impression and plan of care have been directed as dictated by the signing physician. Clarice Colón nurse practitioner acting as scribe for signing physician. Objective - Vital Signs Vital signs: Vital Signs Temp 98.5 F 10/29/20 04:00 Pulse 110 H 10/29/20 07:00 Resp 22 10/29/20 07:00 BP 136/58 10/29/20 07:00 Pulse Ox 78 L 10/29/20 07:00 Intake & Output 10/28/20 10/29/20 10/29/20 18:59 06:59 18:59 Intake Total 118 750 75 Output Total 670 930 100 Balance -552 -180 -25 Weight 111.6 kg 111.3 kg Intake: IV 750 75 .45 75 0.9 750 Oral 118 Output: Urine 670 930 100 Other: Voiding Method External Catheter Indwelling Catheter ABP, PAP, CO, CI - Last Documented Arterial Blood Pressure 145/51 - Labs CBC & Chem 7: 10/29/20 04:55 10/29/20 04:55 Labs: Abnormal Lab Results - Last 24 Hours (Table) 10/28/20 10/28/20 10/28/20 Range/Units 09:26 09:26 09:26 WBC 15.3 H (3.8-10.6) k/uL RBC (3.80-5.40) m/uL Hgb 9.9 L (11.4-16.0) gm/dL Hct (34.0-46.0) % MCV 78.5 L (80.0-100.0) fL MCH 22.4 L (25.0-35.0) pg MCHC 28.6 L (31.0-37.0) g/dL RDW 19.6 H (11.5-15.5) % Plt Count 120 L (150-450) k/uL Neutrophils # 11.9 H (1.3-7.7) k/uL Lymphocytes # (1.0-4.8) k/uL D-Dimer (<0.60) mg/L FEU ABG pH (7.35-7.45) ABG pCO2 (35-45) mmHg ABG pO2 (83-108) mmHg ABG HCO3 (21-25) mmol/L ABG Total CO2 (19-24) mmol/L ABG O2 Saturation (94-97) % Sodium (137-145) mmol/L Potassium 5.3 H (3.5-5.1) mmol/L Carbon Dioxide 40 H (22-30) mmol/L BUN 74 H (7-17) mg/dL Creatinine 1.15 H (0.52-1.04) mg/dL Glucose 68 L (74-99) mg/dL POC Glucose (mg/dL) (75-99) mg/dL Calcium (8.4-10.2) mg/dL Ionized Calcium Memo 4.3 L (4.5-5.3) mg/dL Phosphorus 4.8 H (2.5-4.5) mg/dL Magnesium 3.0 H (1.6-2.3) mg/dL Ferritin 850.4 H (10.0-291.0) ng/mL AST 70 H (14-36) U/L ALT 46 H (4-34) U/L Alkaline Phosphatase 162 H (38-126) U/L Lactate Dehydrogenase 2622 H (313-618) U/L C-Reactive Protein (<1.0) mg/dL Triglycerides 249 H (<150) mg/dL 10/28/20 10/28/20 10/28/20 Range/Units 11:38 12:12 15:36 WBC (3.8-10.6) k/uL RBC (3.80-5.40) m/uL Hgb (11.4-16.0) gm/dL Hct (34.0-46.0) % MCV (80.0-100.0) fL MCH (25.0-35.0) pg MCHC (31.0-37.0) g/dL RDW (11.5-15.5) % Plt Count (150-450) k/uL Neutrophils # (1.3-7.7) k/uL Lymphocytes # (1.0-4.8) k/uL D-Dimer 4.37 H (<0.60) mg/L FEU ABG pH (7.35-7.45) ABG pCO2 72 H* (35-45) mmHg ABG pO2 48 L* (83-108) mmHg ABG HCO3 40 H* (21-25) mmol/L ABG Total CO2 43 H (19-24) mmol/L ABG O2 Saturation 79.7 L (94-97) % Sodium (137-145) mmol/L Potassium (3.5-5.1) mmol/L Carbon Dioxide (22-30) mmol/L BUN (7-17) mg/dL Creatinine (0.52-1.04) mg/dL Glucose (74-99) mg/dL POC Glucose (mg/dL) 174 H (75-99) mg/dL Calcium (8.4-10.2) mg/dL Ionized Calcium Memo (4.5-5.3) mg/dL Phosphorus (2.5-4.5) mg/dL Magnesium (1.6-2.3) mg/dL Ferritin (10.0-291.0) ng/mL AST (14-36) U/L ALT (4-34) U/L Alkaline Phosphatase (38-126) U/L Lactate Dehydrogenase (313-618) U/L C-Reactive Protein (<1.0) mg/dL Triglycerides (<150) mg/dL 10/28/20 10/29/20 10/29/20 Range/Units 23:31 04:55 04:55 WBC (3.8-10.6) k/uL RBC (3.80-5.40) m/uL Hgb (11.4-16.0) gm/dL Hct (34.0-46.0) % MCV (80.0-100.0) fL MCH (25.0-35.0) pg MCHC (31.0-37.0) g/dL RDW (11.5-15.5) % Plt Count (150-450) k/uL Neutrophils # (1.3-7.7) k/uL Lymphocytes # (1.0-4.8) k/uL D-Dimer 5.85 H (<0.60) mg/L FEU ABG pH (7.35-7.45) ABG pCO2 (35-45) mmHg ABG pO2 (83-108) mmHg ABG HCO3 (21-25) mmol/L ABG Total CO2 (19-24) mmol/L ABG O2 Saturation (94-97) % Sodium 148 H (137-145) mmol/L Potassium (3.5-5.1) mmol/L Carbon Dioxide 38 H (22-30) mmol/L BUN 73 H (7-17) mg/dL Creatinine 1.26 H (0.52-1.04) mg/dL Glucose 122 H (74-99) mg/dL POC Glucose (mg/dL) 147 H (75-99) mg/dL Calcium 8.3 L (8.4-10.2) mg/dL Ionized Calcium Memo (4.5-5.3) mg/dL Phosphorus (2.5-4.5) mg/dL Magnesium 3.2 H (1.6-2.3) mg/dL Ferritin (10.0-291.0) ng/mL AST (14-36) U/L ALT (4-34) U/L Alkaline Phosphatase (38-126) U/L Lactate Dehydrogenase 2040 H (313-618) U/L C-Reactive Protein 2.9 H (<1.0) mg/dL Triglycerides (<150) mg/dL 10/29/20 10/29/20 10/29/20 Range/Units 04:55 04:58 05:56 WBC 15.0 H (3.8-10.6) k/uL RBC 3.64 L (3.80-5.40) m/uL Hgb 7.5 L D (11.4-16.0) gm/dL Hct 29.1 L (34.0-46.0) % MCV 79.8 L (80.0-100.0) fL MCH 20.6 L (25.0-35.0) pg MCHC 25.9 L (31.0-37.0) g/dL RDW 20.0 H (11.5-15.5) % Plt Count (150-450) k/uL Neutrophils # 14.3 H (1.3-7.7) k/uL Lymphocytes # 0.2 L (1.0-4.8) k/uL D-Dimer (<0.60) mg/L FEU ABG pH 7.31 L (7.35-7.45) ABG pCO2 73 H* (35-45) mmHg ABG pO2 51 L* (83-108) mmHg ABG HCO3 37 H (21-25) mmol/L ABG Total CO2 39 H (19-24) mmol/L ABG O2 Saturation 80.0 L (94-97) % Sodium (137-145) mmol/L Potassium (3.5-5.1) mmol/L Carbon Dioxide (22-30) mmol/L BUN (7-17) mg/dL Creatinine (0.52-1.04) mg/dL Glucose (74-99) mg/dL POC Glucose (mg/dL) 132 H (75-99) mg/dL Calcium (8.4-10.2) mg/dL Ionized Calcium Memo (4.5-5.3) mg/dL Phosphorus (2.5-4.5) mg/dL Magnesium (1.6-2.3) mg/dL Ferritin (10.0-291.0) ng/mL AST (14-36) U/L ALT (4-34) U/L Alkaline Phosphatase (38-126) U/L Lactate Dehydrogenase (313-618) U/L C-Reactive Protein (<1.0) mg/dL Triglycerides (<150) mg/dL
[2020-10-29 11:35] LABS: Glucose,Whole Blood 227 mg/dL (75-99)
--- NOTE | 2020-10-29 13:52 | CONS ---
CONSULTATION REASON FOR CONSULT: Acute kidney injury and low GFR with need for PICC line. HISTORY OF PRESENT ILLNESS: Patient is a 65-year-old female who was initially admitted to the hospital on 10/06/2020 with complaints of chest pain and shortness of breath. The patient has tested positive for COVID PCR on 10/14/2020. Her initial COVID PCR test was negative on 10/06/2020. The patient's respiratory status has currently deteriorated and she has been transferred to the ICU. She is maintained on BiPAP with plans for possible extubation later on today. Serum creatinine is at 1.26 mg/dL. It was at 1.0 on 10/21/2020. It did peak at about 1.5 on 10/13/2020. Patient did have a chest CTA done on 10/09/2020 which showed possibility of CHF. Patient's blood pressure has not been low. She has had good urine output with 24-hour output documented at about 3.2 L. Currently patient is maintained on TPN. Her blood pressure was high and at one time she was on Cleviprex drip as well. She is getting Lasix 60 mg p.o. b.i.d. 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 PAST SURGICAL HISTORY: , cholecystectomy, cardiac catheterization, hysterectomy, multiple EGDs, cataract surgery. MEDICATIONS: Medications prior to admission included Lipitor, Prozac, Imdur, Synthroid, Singulair, Aldactone, Robaxin, Requip, Zaroxolyn, Lasix, insulin, Protonix, potassium, Senokot, Lyrica, Januvia, Lopressor. ALLERGIES: Allergies include NIMBEX with rash and hives. PHYSICAL EXAMINATION: Patient is currently awake. She is maintained on BiPAP. Blood pressure was 152/67, heart rate 104 per minute. She is afebrile. Examination of lower extremities shows no significant edema. Abdomen is soft, obese, nontender. PARAMEDIC RN exam shows patient moving all 4 extremities. LABS: Labs show sodium 148, potassium 4.5, chloride 107, CO2 is 38, BUN 73, serum creatinine 1.26. ASSESSMENT: 1. Acute kidney injury on initial admission currently improved with creatinine decreasing from peak of 1.5 on 10/12 to about 1.0-1.1 mg/dL. Today it is at 1.26. This could be possibly related to underlying COVID infection. No evidence of hypotension currently. The patient is maintained on Lasix. Chest x-ray from today continues to show diffuse infiltrates bilaterally. 2. Patient's sodium was elevated and IV fluids are currently at 0.45 normal saline. 3. Hypernatremia associated with free water deficit maintained on half-normal saline. We can consider changing to D5W so we have to use less fluid as patient is also being diuresed. 4. Respiratory acidosis from underlying COVID pneumonia. 5. Metabolic alkalosis as a secondary compensatory mechanism for respiratory acidosis. The patient was on Diamox. PLAN: Continue with the Lasix. Repeat sodium and consider changing to D5W so we can use a lesser amount of fluid. Avoid nephrotoxic agents. Repeat labs in a.m. MMODL / IJN: [id number] /
[2020-10-29 15:23] LABS: ABG Base Excess 5.8 mmol/L; ABG HCO3 32 mmol/L (21-25); ABG Oxygen Saturation 76.3 % (94-97); ABG PCO2 61 mmHg (35-45); ABG PH 7.33 (7.35-7.45); ABG TCO2 34 mmol/L (19-24); Allen Test Performed? Yes
[2020-10-29 15:27] LABS: ABG PO2 47 mmHg (83-108)
[2020-10-29] MEDS ORDERED: propofoL 100 ML IV ONE (17:13)
[2020-10-29] MEDS ORDERED: NOREPINEPHRIN 4 MG-0.9% NS PMX 4 MG/250 ML ML IV ONE (17:23)
[2020-10-29] MEDS ORDERED: CISATRACURIUM 2 MG/ML 5 ML VIAL IV ONE (17:29)
[2020-10-29] MEDS ORDERED: SODIUM BICARB 8.4% 50 ML SYR (1 MEQ/ML) ONE ×2 (18:02→18:03)
[2020-10-29 18:15] LABS: Glucose,Whole Blood 289 mg/dL (75-99)
--- NOTE | 2020-10-29 18:15 | XR ---
EXAM: XR Chest, 1 View CLINICAL HISTORY: ITS.REASON XR Reason: intubated TECHNIQUE: Frontal view of the chest. COMPARISON: Chest radiograph on 10/29/2020 507 hours FINDINGS: Hardware: Interval placement of an endotracheal tube which terminates in the region of the lower thoracic trachea just above the mildred. Recommend retraction by approximately 2-3 cm. Interval placement of an enteric tube which courses past the diaphragm and out of the field-of- view. The sidehole is in the region of the stomach. Stable right internal jugular central venous catheter. Lungs/pleura: Increased opacities/consolidations throughout the lungs. N pleural effusion or pneumothorax. Heart/mediastinum: Grossly stable. Cardiac silhouette. Evaluation is limited by the lung opacities. Atherosclerotic calcifications of the aorta. Soft tissues: Unremarkable. Bones: No acute fracture. Degenerative changes of the spine. Upper abdomen: Probable cholecystectomy clips in the right upper quadrant. IMPRESSION: 1. Interval placement of an endotracheal tube which terminates in the region of the lower thoracic trachea just above the mildred. Recommend retraction by approximately 2-3 cm. Interval placement of an enteric tube which courses past the diaphragm and out of the [id number]. The sidehole is in the region of the stomach. Stable right internal jugular central venous catheter. 2. Increased opacities/consolidations throughout the lungs.
[2020-10-29 18:33] LABS: ABG Base Excess 8.1 mmol/L; ABG HCO3 37 mmol/L (21-25); ABG Oxygen Saturation 80.9 % (94-97); ABG PO2 61 mmHg (83-108); ABG TCO2 40 mmol/L (19-24); Allen Test Performed? Yes
[2020-10-29 18:35] LABS: ABG PCO2 100 mmHg (35-45); ABG PH 7.17 (7.35-7.45)
[2020-10-29] MEDS: SENNOSIDES-DOCUSATE SODIUM 1 EACH TAB PO SCH (18:39)
[2020-10-29] MEDS: CISATRACURIUM 200 MG in SODIUM CHLORIDE 0.9% 180 ML IV SCH (18:49)
[2020-10-29] MEDS: DEXTROSE 5% IN WATER 1,000 ML with SODIUM BICARB (1 MEQ/ML) 150 ML IV SCH (19:55)
[2020-10-29] MEDS: ARTIFICIAL TEARS-HYPROMELLOSE DROPS 15 ML BTL BOTH EYES SCH ×2 (19:56→23:46)
[2020-10-29] MEDS ORDERED: [UNRECOGNIZED DRUG - REMARK] IV ONE ×4 (20:00)
[2020-10-29] MEDS: MONTELUKAST 10 MG TAB PO SCH (20:13)
[2020-10-29] MEDS: MELATONIN 3 MG TABLET PO SCH (20:19)
[2020-10-29] MEDS ORDERED: SODIUM CHLORIDE 0.9% 1,000 ML IV ONE (22:38)
[2020-10-29 23:19] LABS: ABG Oxygen Saturation 88.3 % (94-97); ABG PO2 80 mmHg (83-108); Allen Test Performed? Yes
[2020-10-29 23:21] LABS: Glucose,Whole Blood 271 mg/dL (75-99)
[2020-10-29 23:22] LABS: ABG PH 7.04 (7.35-7.45)
[2020-10-29 23:23] LABS: ABG PCO2 >120 mmHg (35-45)
[2020-10-30] MEDS ORDERED: FUROSEMIDE 10 MG/ML 4 ML VIAL IV STA (00:49)
[2020-10-30] MEDS ORDERED: SODIUM CHLORIDE 0.9% 1,000 ML IV ONE (00:49)
[2020-10-30] MEDS: CLEVIDIPINE BUTYRATE 25 MG in EMPTY BAG 1 BAG IV SCH (00:52)
[2020-10-30] MEDS: NOREPINEPHRINE 8 MG in SODIUM CHLORIDE 0.9% 250 ML IV SCH ×2 (02:01→18:59)
[2020-10-30] MEDS: DEXTROSE 5% IN WATER 1,000 ML with SODIUM BICARB (1 MEQ/ML) 150 ML IV SCH (04:06)
[2020-10-30] MEDS: ARTIFICIAL TEARS-HYPROMELLOSE DROPS 15 ML BTL BOTH EYES SCH ×5 (04:06→22:10)
[2020-10-30 05:12] LABS: ABG Base Excess 7.6 mmol/L; ABG HCO3 37 mmol/L (21-25); ABG Oxygen Saturation 95.2 % (94-97); ABG PO2 94 mmHg (83-108); ABG TCO2 41 mmol/L (19-24); Allen Test Performed? Yes
[2020-10-30 05:15] LABS: ABG PCO2 118 mmHg (35-45); ABG PH 7.11 (7.35-7.45)
[2020-10-30 05:17] LABS: Glucose,Whole Blood 278 mg/dL (75-99)
[2020-10-30] MEDS: INSULIN ASPART (NovoLOG) 100 UNIT/ML VIAL SQ SCH (05:30)
[2020-10-30 05:35] LABS: Anisocytosis Moderate; Basophils # (A) 0.1 k/uL (0-0.2); Basophils % (A) 0 %; Eosinophils % (A) 0 %; HCT 27.9 % (34.0-46.0); HGB 7.4 gm/dL (11.4-16.0); Hypochromasia Marked; Lymphocytes # (A) 0.2 k/uL (1.0-4.8); Lymphocytes % (A) 1 %; MCH 21.9 pg (25.0-35.0); MCHC 26.4 g/dL (31.0-37.0); MCV 82.8 fL (80.0-100.0); Mean Platelet Volume 8.3; Microcytosis Slight; Monocytes # (A) 1.2 k/uL (0-1.0); Monocytes % (A) 3 %; Neutrophils # (A) 36.4 k/uL (1.3-7.7); Neutrophils % (A) 96 %; Platelet Count 226 k/uL (150-450); RBC 3.37 m/uL (3.80-5.40); RDW 20.3 % (11.5-15.5)
[2020-10-30 05:56] LABS: C Reactive Protein 2.3 mg/dL (<1.0); Calcium 7.3 mg/dL (8.4-10.2); Magnesium 3.3 mg/dL (1.6-2.3); Potassium 5.4 mmol/L (3.5-5.1)
[2020-10-30] MEDS: LEVOTHYROXINE 125 MCG TAB PO SCH (06:08)
[2020-10-30 06:34] LABS: Phosphorus 10.1 mg/dL (2.5-4.5)
[2020-10-30] MEDS: INSULIN DETEMIR (LEVEMIR) 100 UNIT/ML SYR SQ SCH (06:51)
--- NOTE | 2020-10-30 07:06 | P.PCN ---
Date of Procedure: 10/29/20 Preoperative Diagnosis: Acute lower extremity related to pneumonia with respiratory failure Postoperative Diagnosis: Acute COVID-19 related pneumonia with respiratory failure Procedure(s) Performed: Intubation Anesthesia: MAC Surgeon: Lakisha Gomes Estimated Blood Loss (ml): 0 Pathology: none sent Condition: critical Disposition: ICU Operative Findings: Indication: Respiratory compromise. A time-out was completed verifying correct patient, procedure, site, positioning, and implant(s) or special equipment if applicable. The patient was positioned appropriately and a #8 endotracheal tube was placed under glidoscope. The tube was anchored at 22 cm at the teeth. Correct placement was confirmed by presence of bilateral breath sounds without air sounds in the abdomen on auscultation. An end-tidal CO2 monitor was also used to confirm tracheal placement of the ET tube. A chest x-ray was ordered to assess for pneumothorax and verify endotracheal tube placement. The patient tolerated the procedure well and there were no complications.
[2020-10-30] MEDS ORDERED: FUROSEMIDE 10 MG/ML 10 ML VIAL IV STA (07:24)
--- NOTE | 2020-10-30 07:24 | P.PN ---
Subjective Progress Note Date: 10/30/20 On today's evaluation of 10/27/2020, the patient is being seen for a follow-up. She is a morbidly obese female patient patient with a BMI of 48.1 and the patient is currently in acute hypoxic respiratory failure essentially due to COVID-19 related pneumonia. The patient is currently on BiPAP at a pressure of 12/6 with an FiO2 of 100% and her pulse ox is currently at 90%. She is awake and alert and she is communicating. The blood gases from yesterday showed a component of acute on top of chronic respiratory acidosis. Her pH was at 7.31 with a pCO2 of 56. The patient remains on IV Solu-Medrol 60 mg every 8 hours. The patient is also on Symbicort 160/4.52 puffs twice a day, Spiriva 1 ventilati on day and albuterol HFA on an as-needed basis. She is tolerating the BiPAP without any major difficulties pH is urinating a tidal volume of around 400. No altered mentation on today's evaluation. The patient is known to me from earlier hospitalizations. She has chronic dyspnea on chronic hypoxemic respiratory failure and chronic hypercapnic respiratory failure. She has a component of COPD and diastolic heart failure. She has been maintained on diuretics for many years. She is typically maintained on oxygen at 4 L per minute nasal cannula. She is an ex smoker. No new labs from today. Inflammatory markers including LDH from yesterday was 2229 and the CRP level was at 1.0. Creatinine today's is at 1.24 with a BUN of 70. 10/28/2020, the patient is being seen for a follow-up. I initially saw her at telemetry unit and the patient was still on a BiPAP since yesterday at the press ure of 12/6 with an FiO2 of 100%. She was very much BiPAP dependent. Unable to come off the BiPAP as the patient would decompensate and she will become more short of breath and hypoxemic. The patient is still being treated for complications of COVID-19 related pneumonia. The patient is currently on IV Solu-Medrol 60 mg every 8 hours. She was given Tocilizumab 800 mg IV yesterday. She remains on Lovenox for an aggressive subcu for DVT prophylaxis. Keep him was also initiated for nutritional support. In terms of inflammatory markers, the patient d-dimer is at 4.37. LDH level is at 2622.this level is slightly higher compared to yesterday.meanwhile, the patient has a potassium level of 5.3, BUN is at 74 with a creatinine of 1.1. Serum bicarbonate is at 40. D- dimer is at 4.37. The white cell causes 15.3 with a hemoglobin of 9.9. Platelet count is at 120, drop since yesterday. I felt that her breathing has become much more labored compared to yesterday. She was having a high minute ventilation. Intermittent ventilation was above 20 L per minute. She was able to generate adequate tidal volumes, however, she was still tachypneic. Based on all this, the patient was transferred to the intensive care unit. After she arrived to the ICU, the patient started having some oxygen desaturations. Her saturation was running around 76-80%. She would come up to the low 80s and she would fall back and she was noticed to have moderate work of breathing. At that point, I made recommendations to increase the BiPAP pressure 14/10 and monitor the oxygenation while her being 100% FiO2. High likelihood that the patient made further decompensated and may require intubation mechanical ventilation. With that reason, she was moved to the intensive care unit. 21, the patient is in the intensive care unit, transferred yesterday because of worsening respiratory status and respiratory decompensation and the patient was placed on a BiPAP initially the pressures of 12/60 and overnight the BiPAP pressure to be adjusted and ultimately she was brought up to BiPAP pressures of 16/12 cm of water and FiO2 of 100%. She is able to tolerate. Blood gases from today shows a pH of 7.31 with a pCO2 of 72 and pO2 of 50.7. Chest x-ray from today is showing diffuse bilateral pulmonary infiltrates along with some cardiomegaly. No significant interval change compared to yesterday. This is consistent with COVID-19 related pneumonia. A triple lumen catheter was inserted through the right IJ.. The patient remains on IV Solu Medrol 60 mg every 8 hours. The patient is also on Lovenox at a dose of 40 mg subcu every 12 hours. In terms of COVID-19 related inflammatory markers, the patient has a LDH level of 2040 and a CRP level is at 2.9. D-dimer is at 5.85. She is awake. She is following commands. She still communicating. She is very much BiPAP dependent and she is unable to come up to BiPAP because of respiratory insufficiency and hypoxemia. She is able to generate tidal volumes of 400 mL on the BiPAP with respiratory rate of 20 and a minute ventilation of 8.1 L. She was also positioned in her left lateral side with seems to be an adequate spot for her in terms of her oxygenation. Requiring any pressors. She is not requiring any sedation for now. She is calm and comfortable and sedated as of the BiPAP machine. In terms of her blood work, the patient has sodium level of 148 and the creatinine is at 1.26 and the patient is receiving 0.9 saline at the rate of 75 mL an hour. Her white cell causes 15, hemoglobin has dropped down to 7.5 and there is no signs of any external bleeding. This sounded to be monitored. Platelet count is at 197. No other significant issues otherwise for now. The arterial line was also inserted in her right upper extremity. 10/30/2020, the patient is intubated on a mechanical ventilator. Note that the patient got transferred to the intensive care unit. She was placed on a BiPAP at the higher pressures and ultimately she failed and the patient continued to be hypoxic with a pulse ox in the mid and low 70s. She was awake throughout this time. She progressively became more lethargic, more tachypneic and she ultimately had to be intubated and placed on a mechanical ventilator. I performed intubation process seen in the intensive care unit. Post intubation, the patient had difficulties with oxygenation. We are unable to bring her pulse ox above 75%. At that point, we decided to put the patient a prone nohelia position. She was prone to yesterday at around 6 PM and she is still prone to this morning. This morning, the patient remains on a mechanical ventilator. The most recent ventilator settings include an assist-control mode at the rate of 38 and a tidal volume of 300 and an FiO2 of 100% with a PEEP of 20. Morning blood gases show a pH of 7.1 with a pCO2 of 118 and pCO2 of 94. Current pulse o x on the monitor is 98% and a peak airway pressures around 44. Static pressure is 42. No chest x-rays done this morning. The patient is currently sedated and paralyzed. Propofol is running at 20 mcg/kg per minute and Nimbex is running at 0.5 mcg/kg/m. Meanwhile, overnight, the patient maintained her blood pressure. Late in the evening, her urine output dropped initially down to 20 mL an hour and currently she is less than 5 mL an hour. Morning creatinine is up to 2.6, baseline of 1.2. BUN is 89. Overnight, the patient received a total of 2 L of normal saline boluses. She was also given a dose of Lasix 40 mg IV push without any response. Note that the patient was also started on pressors and currently she is on norepinephrine at 0.04 mcg/kg per minute. Also, the patient was started on a bicarb infusion to counteract her severe respiratory acidosis. The bicarb infusion currently is running at 150 mL an hour. Her serum bicarb is up to 38. Her current sodium level is up 250. Blood sugar is at 266. Phosphorus is at 10.1. She has a Raphael catheter in place. Her white cell count is up to 38 and her hemoglobin is stable at 7.4. Note that she had a 2 g hemoglobin drop yesterday and things have remained stable since. In terms of her inflammatory markers, her d-dimer is up to 8.7, her LDH level is up to 9093 and the CRP level is at 2.3.The patient remains on steroids and the patient is receiving IV Solu-Medrol 60 mg every 8 hours. The patient remains on Lovenox 40 mg subcu every 12 hours. THE patient is currently nothing by mouth. I'm going to start on tube feeding once the patient is position back in a supine body position. We'll consult nephrology at this point in time specially with a evolving renal failure. Objective - Vital Signs Vital signs: Vital Signs Temp 97.7 F 10/30/20 04:00 Pulse 96 10/30/20 07:00 Resp 38 H 10/30/20 07:00 BP 112/48 10/30/20 07:00 Pulse Ox 97 10/30/20 07:00 Intake & Output 10/29/20 10/30/20 10/30/20 18:59 06:59 18:59 Intake Total 900 3799.889 150 Output Total 1025 145 10 Balance -125 3654.889 140 Intake: IV 900 3725 150 .45 900 75 0.9 2000 Dextrose 5% in Water 1, 1650 150 000 ml @ 150 mls/hr IV . Q7H40M SARATH with Sodium Bicarb (1 Meq/ml) 150 ml Rx#:[id number] Intake, IV Titration 74.889 Amount Cisatracurium 200 mg In 39.066 Sodium Chloride 0.9% 180 ml @ 1 MCG/KG/MIN 6.678 mls/hr IV .Q24H SARATH Rx#: [id number] Norepinephrine 8 mg In 35.823 Sodium Chloride 0.9% 250 ml @ 0.05 MCG/KG/MIN 10. 768 mls/hr IV .[id number] SARATH Rx#:[id number] Output: Urine 1025 145 10 Other: Voiding Method Indwelling Catheter Indwelling Catheter # Voids 1 ABP, PAP, CO, CI - Last Documented Arterial Blood Pressure 114/42 - Exam GENERAL EXAM: Alert, pleasant, obese 65-year-old female patient, she is currently in a prone body position. The patient is intubated and she has an orotracheal and orogastric tube are both of them are in good locations. HEAD: Normocephalic. EYES: Normal reaction of pupils, equal size. NOSE: Clear with pink turbinates. THROAT: No erythema or exudates. NECK: No masses, no JVD. CHEST: No chest wall deformity. LUNGS: Equal air entry with bilateral end expiratory wheeze, diminished. CVS: S1 and S2 normal with no audible murmur, regular rhythm. ABDOMEN: No hepatosplenomegaly, normal bowel sounds, no guarding or rigidity. SPINE: No scoliosis or deformity SKIN: No rashes CENTRAL NERVOUS SYSTEM: The patient is sedated. The patient is paralyzed. Detailed neurologic evaluation cannot be done. Pupils are equal and reactive to light. EXTREMITIES: There is 1-2+ peripheral edema. No clubbing, no cyanosis. Perip heral pulses are intact. - Labs CBC & Chem 7: 10/30/20 05:00 10/30/20 05:00 Labs: Abnormal Lab Results - Last 24 Hours (Table) 10/29/20 10/29/20 10/29/20 Range/Units 08:41 11:34 15:19 WBC (3.8-10.6) k/uL RBC (3.80-5.40) m/uL Hgb (11.4-16.0) gm/dL Hct (34.0-46.0) % MCH (25.0-35.0) pg MCHC (31.0-37.0) g/dL RDW (11.5-15.5) % Neutrophils # (1.3-7.7) k/uL Lymphocytes # (1.0-4.8) k/uL Monocytes # (0-1.0) k/uL D-Dimer (<0.60) mg/L FEU ABG pH 7.32 L 7.33 L (7.35-7.45) ABG pCO2 69 H 61 H (35-45) mmHg ABG pO2 49 L* 47 L* (83-108) mmHg ABG HCO3 36 H 32 H (21-25) mmol/L ABG Total CO2 38 H 34 H (19-24) mmol/L ABG O2 Saturation 78.0 L 76.3 L (94-97) % Sodium (137-145) mmol/L Potassium (3.5-5.1) mmol/L Carbon Dioxide (22-30) mmol/L BUN (7-17) mg/dL Creatinine (0.52-1.04) mg/dL Glucose (74-99) mg/dL POC Glucose (mg/dL) 227 H (75-99) mg/dL Calcium (8.4-10.2) mg/dL Phosphorus (2.5-4.5) mg/dL Magnesium (1.6-2.3) mg/dL Lactate Dehydrogenase (313-618) U/L C-Reactive Protein (<1.0) mg/dL 10/29/20 10/29/20 10/29/20 Range/Units 18:14 18:29 23:14 WBC (3.8-10.6) k/uL RBC (3.80-5.40) m/uL Hgb (11.4-16.0) gm/dL Hct (34.0-46.0) % MCH (25.0-35.0) pg MCHC (31.0-37.0) g/dL RDW (11.5-15.5) % Neutrophils # (1.3-7.7) k/uL Lymphocytes # (1.0-4.8) k/uL Monocytes # (0-1.0) k/uL D-Dimer (<0.60) mg/L FEU ABG pH 7.17 L* 7.04 L* (7.35-7.45) ABG pCO2 100 H* >120 H* (35-45) mmHg ABG pO2 61 L 80 L (83-108) mmHg ABG HCO3 37 H (21-25) mmol/L ABG Total CO2 40 H (19-24) mmol/L ABG O2 Saturation 80.9 L 88.3 L (94-97) % Sodium (137-145) mmol/L Potassium (3.5-5.1) mmol/L Carbon Dioxide (22-30) mmol/L BUN (7-17) mg/dL Creatinine (0.52-1.04) mg/dL Glucose (74-99) mg/dL POC Glucose (mg/dL) 289 H (75-99) mg/dL Calcium (8.4-10.2) mg/dL Phosphorus (2.5-4.5) mg/dL Magnesium (1.6-2.3) mg/dL Lactate Dehydrogenase (313-618) U/L C-Reactive Protein (<1.0) mg/dL 10/29/20 10/30/20 10/30/20 Range/Units 23:20 05:00 05:00 WBC 38.0 H (3.8-10.6) k/uL RBC 3.37 L (3.80-5.40) m/uL Hgb 7.4 L (11.4-16.0) gm/dL Hct 27.9 L (34.0-46.0) % MCH 21.9 L (25.0-35.0) pg MCHC 26.4 L (31.0-37.0) g/dL RDW 20.3 H (11.5-15.5) % Neutrophils # 36.4 H (1.3-7.7) k/uL Lymphocytes # 0.2 L (1.0-4.8) k/uL Monocytes # 1.2 H (0-1.0) k/uL D-Dimer (<0.60) mg/L FEU ABG pH (7.35-7.45) ABG pCO2 (35-45) mmHg ABG pO2 (83-108) mmHg ABG HCO3 (21-25) mmol/L ABG Total CO2 (19-24) mmol/L ABG O2 Saturation (94-97) % Sodium 150 H (137-145) mmol/L Potassium 5.4 H (3.5-5.1) mmol/L Carbon Dioxide 38 H (22-30) mmol/L BUN 89 H (7-17) mg/dL Creatinine 2.61 H (0.52-1.04) mg/dL Glucose 266 H (74-99) mg/dL POC Glucose (mg/dL) 271 H (75-99) mg/dL Calcium 7.3 L (8.4-10.2) mg/dL Phosphorus 10.1 H* (2.5-4.5) mg/dL Magnesium 3.3 H (1.6-2.3) mg/dL Lactate Dehydrogenase 9093 H (313-618) U/L C-Reactive Protein 2.3 H (<1.0) mg/dL 10/30/20 10/30/20 10/30/20 Range/Units 05:00 05:08 05:16 WBC (3.8-10.6) k/uL RBC (3.80-5.40) m/uL Hgb (11.4-16.0) gm/dL Hct (34.0-46.0) % MCH (25.0-35.0) pg MCHC (31.0-37.0) g/dL RDW (11.5-15.5) % Neutrophils # (1.3-7.7) k/uL Lymphocytes # (1.0-4.8) k/uL Monocytes # (0-1.0) k/uL D-Dimer 8.70 H (<0.60) mg/L FEU ABG pH 7.11 L* (7.35-7.45) ABG pCO2 118 H* (35-45) mmHg ABG pO2 (83-108) mmHg ABG HCO3 37 H (21-25) mmol/L ABG Total CO2 41 H (19-24) mmol/L ABG O2 Saturation (94-97) % Sodium (137-145) mmol/L Potassium (3.5-5.1) mmol/L Carbon Dioxide (22-30) mmol/L BUN (7-17) mg/dL Creatinine (0.52-1.04) mg/dL Glucose (74-99) mg/dL POC Glucose (mg/dL) 278 H (75-99) mg/dL Calcium (8.4-10.2) mg/dL Phosphorus (2.5-4.5) mg/dL Magnesium (1.6-2.3) mg/dL Lactate Dehydrogenase (313-618) U/L C-Reactive Protein (<1.0) mg/dL Assessment and Plan Plan: 1 acute COVID-19 related pneumonia with diffuse breath and pulmonary infiltrates and the patient has coarse crackles in the mid and lower lung phelps bilaterally. The patient was treated with steroids. The patient also received Tocilizumab 80 mg IV on 10/27/2020. She was being supported with high flow oxygen, ultimately she was switched to BiPAP and the pressures were progressively adjusted as the patient continued to be hypoxic. Yesterday afternoon, the patient had to be intubated and placed on a mechanical ventilator. Post intubation, she was sedated and paralyzed and despite that, she continued to have high peak airway pressures and static pressures and the patient had poor oxygenation. We'll allow permissive hypercapnia. We put the patient in prone body positioning. Blood gases from this morning was noted. The patient has significant respiratory acidosis. She was given bicarb contact respiratory acidosis. Currently intubated, in a prone body position. The patient remains in a prone body positioning this morning. The LDH is significantly elevated at this point in time. D-dimer remains elevated. 2 acute kidney injury with oligoria and the creatinine is up to 2.6 and the patient has also developed a hyperphosphatemia. Potassium level from today is at 5.4. The patient is on a bicarb infusion and the serum bicarbonate 38. Urine output is less than 5 mL at this point in time. The patient has also developed an acute hypernatremia, hyperphosphatemia. 2 History of prior GI bleed, secondary to duodenal AV malformation. There has been a drop in hemoglobin down to 7.2. Nevertheless, there is no signs of any GI bleeding. The patient was kept on Lovenox at a dose of 40 mg every 12 hours 3 chronic diastolic heart failure 4 COPD, with chronic chronic hypoxic and hypercapnic respiratory failure the patient is demented on oxygen at 4 L and she has home O2. 5 Morbid obesity. 6 History of diabetes mellitus. She is currently on Levemir 10 units along with a sliding scale coverage. The patient was taken off TPN and I am hoping to initiate enteral feeding for nutritional support. Patient is position back in a supine body position. 7 Prior history of GI bleed. 8 History of pneumonia. 9 Chronic hypoxemic respiratory failure, on chronic nocturnal BiPAP therapy. 10 Diabetic neuropathy. 11 Valvular heart disease/aortic stenosis. 12 Obstructive sleep apnea syndrome. Maintained on CPAP on outpatient basis 13 History of hypothyroidism. 14 Previous history of heavy tobacco use. 15 History of depression. 16 chronic lower extremity edema and the patient is taking Lasix 60 mg twice a day , currently off diuretics and the patient was taken off diuretics yesterday. HEENT acute leukocytosis Plan Keep the patient prone for a total of 16 hours and put her back in a supine body position We'll obtain a blood gases after the patient being placed supine. Continue IV Solu-Medrol Continue Lovenox Tocilizumab 800 mg IV piggybag was administered on 10/27/2020 monitor the serum bicarbonate which should be in the order of 38-40 Monitor inflammatory markers Stop the bicarb infusion. Switch this patient to half-normal saline at the rate of 150 mL an hour. Also, start the patient on free water replacement through the NG 200 mL every 4 hours. Monitor sodium level. Give the patient another dose of Lasix 80 mg IV push 1 Obtain ultrasound the kidneys to rule out hydronephrosis Consult nephrology regarding acute kidney injury Insulin long-acting with Lantus 10 units The patient is currently on a sliding scale insulin coverage Monitor blood gas Monitor chest x-ray Check Procalcitonin level Obtain 2 sets of blood cultures Start the patient IV cefepime 2 g every 12 hours as an empiric antibiotic coverage Condition is extremely critical Evaluation was on a more than 30 minutes. Time with Patient: Greater than 30
[2020-10-30] MEDS ORDERED: SODIUM CHLORIDE 0.45% 1,000 ML IV SCH (07:30)
--- NOTE | 2020-10-30 08:28 | US ---
EXAMINATION TYPE: US kidneys/renal and bladder DATE OF EXAM: 10/30/2020 COMPARISON: CT October 06, 2020 CLINICAL HISTORY: [facility]. ICU, intubated patient with COVID in prone position EXAM MEASUREMENTS: Right Kidney: 9.9 x 5.0 x 5.2 cm Left Kidney: 10.8 x 5.4 x 5.4 cm Post Void Residual Volume: not assessed on prone, intubated ICU patient Right Kidney: small cyst seen superior cortex = 0.8 x 0.7 x 0.8cm; extracapsular crescent shaped area s noted bilateral renal and is sonographic "sweat sign" suggestive of renal failure. Left Kidney: No hydronephrosis or masses seen Cortical thinning bilaterally with bilateral nonspecific perinephric fluid and subcentimeter cyst rig ht kidney. Findings consistent with chronic medical renal disease. Findings correlate with recent CT. IMPRESSION: No hydronephrosis noted bilaterally.
[2020-10-30] MEDS: DEXTROSE 5% IN WATER 1,000 ML IV SCH ×2 (08:42→19:03)
[2020-10-30] MEDS: CHLORHEXIDINE GLUCONATE 15 ML CUP MUCOUS MEM SCH ×2 (08:42→22:12)
[2020-10-30] MEDS: guaiFENesin 600 MG TABLET.ER PO SCH ×2 (08:43→22:12)
[2020-10-30] MEDS: PREGABALIN 100 MG CAP PO SCH ×2 (08:43→22:18)
[2020-10-30] MEDS: ENOXAPARIN 40 MG/0.4 ML SYRINGE SQ SCH ×2 (08:43→22:12)
[2020-10-30] MEDS: methylPREDNISolone SOD SUCCI 125 MG/2 ML VIAL IV SCH ×2 (08:45→16:18)
[2020-10-30] MEDS: ASCORBIC ACID 500 MG TAB PO SCH (08:45)
[2020-10-30] MEDS: CHOLECALCIFEROL 25 MCG (1000 IU) TABLET PO SCH (08:45)
[2020-10-30] MEDS: PANTOPRAZOLE 40 MG/10 ML VIAL IVP SCH ×2 (08:45→22:17)
[2020-10-30] MEDS: BENZONATATE 100 MG CAP PO SCH (08:46)
[2020-10-30] MEDS: FLUoxetine HCL 20 MG CAP PO SCH (08:47)
[2020-10-30] MEDS: NYSTATIN 100,000 UNIT/ML SUSP 500,000 UNIT/5 ML CUP PO SCH ×4 (08:47→22:14)
[2020-10-30] MEDS: LINAGLIPTIN 5 MG TABLET PO SCH (08:47)
[2020-10-30] MEDS: ZINC SULFATE 220 MG CAP PO SCH (08:48)
[2020-10-30] MEDS ORDERED: CEFEPIME 2 GM in SODIUM CHLORIDE 0.9% 100 ML IVPB SCH (09:00)
--- NOTE | 2020-10-30 10:54 | P.PN ---
Subjective Progress Note Date: 10/30/20 HISTORY OF PRESENT ILLNESS This is a 65-year-old female patient of Dr. Deras with past medical history significant for heart failure, COPD, chronic hypoxic respiratory failure on home O2 at 2 L nasal cannula and obstructive sleep apnea on BiPAP support at bedtime, diabetes mellitus type 2 with diabetic neuropathy, chronic diastolic heart failure, valvular heart disease, hypertension, hypothyroidism, GI bleed with anemia. Patient has had multiple admissions and multiple endoscopies for GIB and anemia. 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 The bleeding seems to be stable since that time. They, patient presented to the hospital due to chest pain in the midsternal area across her chest seems to be worse after she eats it was hurting after she had breakfast this morning. She complains of shortness of breath with exertion that is worse than the last time she was admitted. She states her stools have been normal. She does complain of abdominal distention and fullness after eating. Patient presented to the [facility] emergency center for evaluation. Patient was found to be afebrile, heart rate 71, blood pressure 140/61, pulse ox 100% on oxygen. WBC 14.8, hemoglobin 8.2 which is stable for this patient. Platelet count is 310. Sodium 138, potassium 4.2, chloride 97, CO2 35, BUN 39 and creatinine 1.34 which is also patient's baseline. Blood sugar 207. D-dimer 0.89. Alkaline phosphatase 160. Troponin negative. Pro- BNP 2570. Lactic acid 1.0. Coronavirus PCR not detected. EKG sinus rhythm with nonspecific ST-T wave changes. Chest x-ray reveals vascular and interstitial markings prominent in the mid to lower lungs bilaterally similar to previous. Consider heart failure versus interstitial infiltrate. CAT scan of the abdomen and pelvis without contrast revealed hepatomegaly and 19.6 cm. Correlate with LFTs and risk factors for underlying hepatocellular disease. 1.3 cm right common iliac chain lymph node is enlarged. Left inguinal femoral chain lymph nodes are borderline enlarged. Findings probably reactive postinflammatory. 1.1 cm indeterminate right adrenal nodule. Moderate stool burden and generalized colonic diverticulosis. Tiny hiatal hernia. Consult was admitted for cardiology and patient has been seen by Dr. Yang for progressive dyspnea secondary to combination of COPD and element of heart failure with preserved systolic function. Plan to continue IV diuretics for 24 hours. 10/07: She has been afebrile, heart rate 86, blood pressure 101/46, pulse ox 90% on 4 L nasal cannula. WBC 11, hemoglobin 7.9, platelet count 319. Sodium 138, potassium 4.3, chloride 95, CO2 37, BUN 31 and creatinine 1.02. Blood sugars have been running 185 up to 405 at its 4 PM yesterday. Patient missed her morning dose of Levemir yesterday. Patient underwent gastric emptying study which was negative for gastroparesis. Patient is continued on IV Lasix at 40 mg every 12 hours. 10/08: Patient is afebrile, heart rate 75, blood pressure 146/57, pulse ox 92% on 3 L nasal cannula. Repeat blood work reveals sodium 138, potassium 4.9, chloride 96, CO2 37, BUN 38 creatinine 1.13. Blood sugars have been running between 211 and 307. Hemoglobin A1c from July is 5.2. Patient has increased dyspnea today along with a dry cough. She complains of shortness of breath with minimal activity, positive orthopnea. Patient was having issues with constipation and last evening and Senokot was added and she states she has had lots of bowel movements. Cardiology increase Lasix every 8 hours. Also Solu-Medrol added. 10/09: Pulse ox is 94% on 3 L nasal cannula. Patient has been afebrile, heart rate 86, blood pressure 134/63. Patient continues to have shortness of breath and nonproductive cough. She is wheezing. Positive shortness of breath with minimal activity. CTA of the chest has been ordered to rule out PE. Blood sugar at 0 was 604 and also high yesterday afternoon, patient received additional NovoLog on top of scale. Levemir 42 units subcu ordered this morning versus her normal dose of 30. Scheduled NovoLog will be increased to 6 units with meals. Solu-Medrol will be decreased to every 12 hours Repeat blood work reveals sodium 131, potassium 5.9, chloride 89, CO2 38, BUN 41 and creatinine 1.15. 10/10: CTA of the chest was suboptimal study without central pulmonary embolism. Cardiomegaly with mild interstitial and alveolar edema raises concern for heart failure exacerbation. No focal consolidation. She is currently on Lasix 40 mg IV 3 times daily. She continues to have shortness of breath, dyspnea with exertion and lower extremity edema. Lasix will be decreased tomorrow to 60 mg oral twice daily. Blood sugars continue to be in the 400s and 500s. She has received additional NovoLog plus scale. Levemir will be increased to 45 units twice daily and scheduled NovoLog increased to 12 units with meals and at at bedtime. Solu-Medrol was discontinued and patient to start prednisone tomorrow. Pulse ox is 95% on 3 L nasal cannula. She's been afebrile, heart rate 60, blood pressure 131/54. Repeat blood work reveals WBC 15.8, hemoglobin 7.5, platelet count 388. Sodium was 129, potassium 6.1 and one dose of Kayexalate 30 mg ordered, oral prednisone scheduled was discontinued and Aldactone decreased to 12.5 mg daily. Chloride 84, CO2 39, BUN 57 and creatinine 1.41. 10/11 and patient examined bedside. Continue have shortness of breath on exertion. For some mild is continued at 40 IV every 8 hours per cardiology. On evaluation as patient's blood work today potassium is improved to 5.1 chloride is 85 bicarb 42 BUN 64 creatinine 1.34 glucose remains high at 444. Lantus increased to 50 twice a day today and NovoLog increased to 15 units with meals continue and follow with sliding scale. Solu-Medrol switched to prednisone 40 mg daily the patient labs tomorrow 10/12 patient examined at bedside. As shortness of breath on exertion and fatigue. Vitals checked in the room such as patient's systolic over 80s. Vitals as checked at 1 PM suggest blood pressure 125/71 with oxygen saturation of 96% on 8 L (55 years. 16 hold patient's blood pressure medication and Lasix today as patient's blood pressure is on the lower side. ABG to be obtained with a pH of 7.34 pCO2 of 81 pO2 59 and bicarb 43 appears to be secondary to metabolic alkalosis secondary to overdiuresis.. Patient to be placed on BiPAP for COPD exacerbation. Hold Lasix and metolazone. Continue Levemir at the current dose of 50 subcu twice a day with insulin aspart 15 subcu before meals and at bedtime. 10/13: Seen today in follow-up. Her hemoglobin is 7.4 and one dose of Ferrlecit IV will be ordered. Lasix will be resumed today at 60 mg oral. Patient utilizes BiPAP last night. She has gotten encouraged to use this during the day as well. 10/14: Patient noted to have a hacking barking cough. She states it started around 1:00 this morning and has been up all night coughing. She denies having any fever or chills. She denies any nausea or vomiting. A rapid Covid test was ordered which surprisingly came back positive. She has been afebrile, heart rate 91, blood pressure 148/63, pulse ox 94% on 2 L nasal cannula. WBC 9.1, hemoglobin 7.6, platelet count 297. D-dimer 0.83, LDH 669. C-reactive protein 1.6. Sodium 133, potassium 4.6, chloride 90, CO2 34, BUN 49 and creatinine 1.31. She is followed by pulmonary medicine. 10/15: Patient has not been able to sleep since 2 AM. She's experienced increased dyspnea. We have documented a 93% pulse ox on 2 L nasal cannula but this does not reflect patient's condition at the time. Patient had increasing dyspnea along with feeling tired and weak. Patient was transitioned to BiPAP and continues to have dyspnea. She has been utilizing BiPAP at nighttime and somewhat during the day for high CO2 has been improving Patient noted to have wheezing and will be placed back on Solu-Medrol 60 mg IV every 6 hours. We are also increasing Levemir and scheduled NovoLog to cover for hyperglycemia. She will be transferred to the cardiac stepdown unit and pulmonary medicine to be notified of patient's condition. Patient has been afebrile, heart rate 93, blood pressure 113/63, pulse ox 97% on 30% BiPAP. Repeat inflammatory markers ordered for tomorrow. 10/16 patient examined bedside continues to complain of fatigue, headache, body aches, sores in the mouth. Vitals obtained suggested temp of 97.6 pulse 87 respiratory rate 20 blood pressure 140/62 oxygen saturation 94% on 3 L. Headache not resolve with Tylenol. We will add morphine 2 mg IV every 6 hours. Nystatin added to help with oral thrush. PTOT consulted for generalized weakness and debility. No labs to evaluate. Repeat labs tomorrow 10/17 patient examined bedside complains of substernal chest pain on coughing which is improved with breathing treatment. EKG obtained showed normal sinus rhythm with supraventricular complexes. No change compared to previous EKG. Troponin 2 ordered. Tessalon Perles added for cough. Patient is on Mucinex and guaifenesin codeine syrup for cough. Patient does sound congested and will switch patient's inhaler from Flovent to Symbicort. Vitals reviewed patient is afebrile pulse of 111 respiratory rate 20 blood pressure 119/60, oxygen saturation 94% on 3 L. No morning labs to review. Patient's blood sugar continues to be elevated. We will increase patient's Lantus to 70 units twice a day with mealtime insulin. Neck supple Medrol reduced to 40 every 8. No plan for him to have severe or Tocilizumab per pulmonary. Repeat labs ordered chest x-ray ordered. Patient likely discharge on Tuesday for possible oxygen needs and would need to be discharged home on oxygen. 10/18: Patient was examined at the bedside she is found sitting up in the chair currently on 3 L of O2 via nasal cannula. Patient states that she is breathing much better. She is utilizing a BiPAP machine at night for sleeping. She does have a BiPAP and CPAP machine at home. Patient states that the CPAP machine is not on enough to help with her shortness of breath at night. Patient remains afebrile heart rate 74, respirations 22, blood pressure 155/72, O2 saturation is 91% on 3 L of nasal O2 which is baseline for the patient. We will repeat CBC in the morning. 10/19: Patient was examined at the bedside she is found sitting up in a chair. Patient is currently on 3 L of O2 via nasal cannula pulse ox 94% which is normal for the patient. Patient did have a difficult night last night with increased shortness of breath she was unable to to sleep. She did spend the majority of the night sitting up in the chair. Patient is concerned about her cough and how fatigued she has after coughing. Patient has increased anxiety due to her diagnosis of COVID-19. A lengthy discussion was had regarding the oxygen needs and her long disease related to COVID-19. Questions were answered. It was discussed in length with patient to possibly go to subacute rehab facility. P atient remains afebrile, heart rate 77, respirations 21 and nonlabored with a cough. Pressure 137/75. 10/20: Patient continued to have significant hypoxia, persistent cough, worsening symptoms require multi hours on the BiPAP on daily basis. The patient about subacute rehab consult clinical social worker patient will be started PTOT if her clinical component is better by Tuesday hopefully be able to send patient to retirement rehab otherwise continue current management and still be aggressive with her COPD and anemia. 10/21: Patient evaluated this morning, sitting up in the bedside chair. Patient has complaints of worsening shortness of breath, she was noted to be hypoxic 75% on 5 L. She was changed to high flow and oxygen did come up to 90%. Will obtain CTA to rule out PE, Acetazolamide 250 mg twice a day was also added. Will also increase her Solu-Medrol to 60 mg every 8 hours. 10/22: Patient has been afebrile, heart rate 91, blood pressure 135/73, pulse ox 91% on high flow nasal cannula 10 L. Patient was on BiPAP briefly last evening. Blood sugars are running high this morning was 100 but otherwise last evening and yesterday afternoon in the 300s up to 461. CTA of the chest shows no evidence of pulmonary embolism. Scattered airspace and interstitial infiltrates throughout both lung phelps. Diamox 250 mg twice daily was started. Patient is currently on Solu-Medrol 60 mg IV every 8 hours. Patient is seen today sitting up in a recliner. Patient utilized BiPAP during the night. She has been working with therapies. Patient had a pulse ox of 90% at rest at 10 L nasal cannula. She stood for 1 minute and pulse ox dropped to 75%. It took patient's 8 minutes to recover to 85% pulse ox. She is complaining of headache and she does have Fioricet and Tylenol 3 available. Patient's nurses been updated the patient is complaining of headache. Family was updated regarding patient's condition yesterday over the phone. 10/23: Patient continues to have significant shortness of breath. She is currently on nonrebreather and nasal cannula 15 L high flow nasal cannula with pulse ox running between 86-100%. Attempt was made to take her off nonrebreather and she dropped down to 80. Patient continues to have cough and significant shortness of breath. All blood sugar remains elevated despite high- dose of insulins. Additional i short acting insulin ordered for this morning. Levemir will be increased to 75 units twice daily. Discussed CODE STATUS with the patient and she wishes to be full code and be intubated. She is unable to make decisions she states that her and daughter can make decisions together. Prognosis is guarded. 10/24: Patient has been afebrile, heart rate 83, blood pressure 146/67, pulse ox 82-99% on HF nasal cannula and intermittent use of NRB. Patient appears to be comfortable at rest in recliner. She appears to be slightly improved from yesterday. Repeat blood work reveals d-dimer of 1.36. Blood sugars are much lower today at breakfast 72 and last evening 111. Levemir to be given this morning and hold short acting, recheck CBG and 2 hours and use scale. Repeat at 2 hours was 299 and patient covered with scale. Repeat chest x-ray reveals chronic changes without acute pulmonary disease. Xanax was increased frequency to qid. 10/25: Patient's hospital sitting up in chair in no acute distress currently on a nonrebreather that is intermittent. She is also on high flow nasal O2. Patient appears to be comfortable. Patient states that sure breathing has improved since yesterday. The only time she feels short of breath is after she has been coughing. She remains afebrile, heart rate 93, respirations 28, blood pressure 144/62 with a pulse ox of 92% on 15 L nonrebreather 10/26: She is found sitting up in a chair with BiPAP on. Patient states that she did sleep better last night however she is having some difficulty in breathing today. She is in moderate distress. She is complaining of a headache which has been treated with Fioricet however we will change to Toradol for maximum of 6 doses. We will also told in to help with sleeping. One dose of tocilizumab will be given today. Patient did not receive any remdesivir. Patient's blood sugar this morning is 25. We will decrease her dose of insulin before bed. We'll discuss CODE STATUS with daughter when seen on Tuesday. 10/27: She was seen today on BiPAP 100% with pulse ox of 91%. Her pulse ox drop ped down to 86 when she tries to take pills. Patient is much more fatigued and weaker today. She has been afebrile, heart rate 90, respiratory rate 22, blood pressure 132/56. Blood sugars running between 84 and 101. Her scheduled NovoLog has been held in the last 3 doses and this will be discontinued and long acting insulin will be decreased from 75 units twice daily to 60 units twice daily. Patient is maintained on Solu-Medrol 60 mg IV every 8 hours, Lasix is currently oral at 60 mg twice daily. One dose of Tocilizumab has been ordered today by pulmonary medicine. 10/28: Patient has been on BiPAP through the night and this morning. Pulse ox is anywhere from 81-92% on 100% FiO2. She has been afebrile, heart rate 85, blood pressure 146/77. Blood sugars are running between 64 and 118. She did not receive Levemir last night or this morning and this will be discontinued for now and patient continued on NovoLog scale only. She has been continued on Solu- Medrol 60 mg IV every 8 hours. Repeat blood work reveals WBC 15.3, hemoglobin 9.9, platelet count 120. Sodium 144, potassium 5.3, chloride 101, CO2 40, BUN 74 and creatinine 1.15. Blood sugar 68. Total bilirubin 0.7, AST 70, ALT 46, alkaline phosphatase 162, LDH 2622. PICC line will be ordered and patient started on TPN. Consult with dietitian added. 10/29: She was transferred into the intensive care unit yesterday afternoon due to worsening respiratory status and decompensation. She remains on BiPAP, triple- lumen catheter was placed in the right IJ. Pulse ox is 78% on 100% FiO2 on BiPAP. She's been afebrile, heart rate 110, blood pressure 136/58, respiratory rate 22. Repeat chest x-ray reveals diffuse infiltrates seen throughout both lung phelps unchanged. Repeat blood work reveals WBC 15, hemoglobin 7.5, platelet count 197. Sodium 148, potassium 4.5, chloride 107, CO2 38, BUN 73 creatinine 1.26. Blood sugar 122. Phosphorus 4.3, magnesium 3.2, LDH 2040, C- reactive protein 2.9. Capillary blood glucose running between 132 and 174. Patient states that she is feeling well short of breath today. Face time was performed with Dr. Denny and patient's daughter and the patient. 10/30: Yesterday afternoon, patient oxygenation continued to worsen and patient was intubated and placed on mechanical ventilation, tidal volume 300, FiO2 100% and PEEP of 20. Last evening, patient was status post 2 L of IV fluids and was started on norepinephrine. She is also on Nimbex, propofol. Consult with nephrology was added for acute kidney injury. Patient is currently seeing pronating in the ICU. Patient is to be started on TPN today. Patient has been afebrile, heart rate 96, respiratory rate 38, blood pressure 110/40, pulse ox 97%. Repeat blood work reveals WBC 38, hemoglobin 7.4, platelet count 226. Sodium 150, potassium 5.4, chloride 104, CO2 38, BUN 89 and creatinine 2.61. Blood sugars in the 200s. Phosphorus 10.1. Magnesium 3.3. LDH 9093. C- reactive protein 2.3. IV fluids have been changed to D5W. Renal ultrasound ruled out hydronephrosis. REVIEW OF SYSTEMS Unable to obtain due to intubation. PHYSICAL EXAMINATION Gen: This is a 65-year-old female. She is in ICU bed, proned, and appears to be comfortable and in no acute distress. Patient is intubated and on mechanical ventilation. HEENT: Head is atraumatic, normocephalic. Pupils equal, round. Sclerae is anicteric. Conjunctiva pale. NECK: Supple. No JVD. No lymphadenopathy. No thyromegaly. LUNGS: Bilateral wheezing. Mild intercostal retractions. Mild accessory muscle usage. HEART: Regular rate and rhythm. Systolic murmur. ABDOMEN: Soft. Bowel sounds are present. No masses. No tenderness. EXTREMITIES: No pedal edema. No calf tenderness. Dorsalis pedis +2 bilaterally. NEUROLOGICAL: Patient is awake, alert and oriented x3. Cranial nerves 2 through 12 are grossly intact. ASSESSMENT AND PLAN 1. Acute on chronic hypoxic respiratory failure with progressive dyspnea secondary to COPD and acute on chronic diastolic heart failure as well as Covid 19 pneumonia, POA. Status post intubation and mechanical ventilation. Continue Solu-Medrol 60 mg IV every 8 hours. Patient is status post 2 doses of Tocilizumab. 2. COPD with exacerbation. Continue IV Solu-Medrol 3. Acute kidney injury with oliguria. Consult with nephrology has been added. Patient on a bicarb infusion which was discontinued this morning and started on D5W. Renal ultrasound ruled out hydronephrosis. 4. Electrolyte abnormalities with hypernatremia and hyperphosphatemia. Nephrology is following. 5. Septic shock requiring vasopressors. Patient is currently on norepinephrine. 6. Upper abdominal/lower chest pain with abdominal bloating and early satiety, ruled out gastroparesis. Most likely secondary to constipation and fecal burden. Continue Senokot 2 daily at 1800. 7. 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 Continue Protonix 40 mg oral twice daily. Status post Ferrlecit infusion 1 on 10/13. 8. Diabetes mellitus type 2 with diabetic neuropathy uncontrolled with hyperglycemia secondary to steroids. Continue Levemir decreased to 10 units twice daily, continue NovoLog scale before meals and at bedtime. Continue Januvia 100 mg daily. Hemoglobin A1c in July was 5.2. 9. Debility and worsening condition: The patient advance COPD and recurrent GI bleed along with COVID-19 patient is not doing well physically. 10. Moderate protein calorie malnutrition due to lack of oral intake due to oxygen needs and severe illness. PICC line ordered and dietitian consult for TPN. 11. Hypertension. 12. Hyperlipidemia. Continue Lipitor 40 mg daily. 13. Obstructive sleep apnea. 14. Hypothyroidism. Continue levothyroxine 125 g daily. 15. Restless leg syndrome. Continue Requip 2 mg twice daily. 16. Recurrent depression. Continue Prozac 20 mg daily. 17. Oral thrush. Completed course of Diflucan and nystatin 18. Chronic kidney disease stage III. 19. Hyperkalemia, resolved status post Kayexalate 1. 20. Metabolic alkalosis secondary to overdiuresis. 21. Situational anxiety. Continue xanax 0.25 mg qid. 22. GI prophylaxis. Protonix twice daily. 23. DVT prophylaxis. Lovenox 40 mg subcu twice daily. CODE STATUS: Full code Prognosis is poor. Impression and plan of care have been directed as dictated by the signing physician. Clarice Colón nurse practitioner acting as scribe for signing physician. Objective - Vital Signs Vital signs: Vital Signs Temp 97.7 F 10/30/20 04:00 Pulse 96 10/30/20 07:00 Resp 38 H 10/30/20 07:00 BP 112/48 10/30/20 07:00 Pulse Ox 97 10/30/20 07:00 Intake & Output 10/29/20 10/30/20 10/30/20 18:59 06:59 18:59 Intake Total 900 3799.889 250 Output Total 1025 145 10 Balance -125 3654.889 240 Intake: IV 900 3725 150 .45 900 75 0.9 2000 Dextrose 5% in Water 1, 1650 150 000 ml @ 150 mls/hr IV . Q7H40M SARATH with Sodium Bicarb (1 Meq/ml) 150 ml Rx#:[id number] Intake, IV Titration 74.889 100 Amount Cisatracurium 200 mg In 39.066 Sodium Chloride 0.9% 180 ml @ 1 MCG/KG/MIN 6.678 mls/hr IV .Q24H SARATH Rx#: [id number] Norepinephrine 8 mg In 35.823 Sodium Chloride 0.9% 250 ml @ 0.05 MCG/KG/MIN 10. 768 mls/hr IV .[id number] SARATH Rx#:[id number] propofoL 1,000 mg In 100 Empty Bag 1 bag @ Titrate IV .Q0M SARATH Rx#: [id number] Output: Urine 1025 145 10 Other: Voiding Method Indwelling Catheter Indwelling Catheter # Voids 1 ABP, PAP, CO, CI - Last Documented Arterial Blood Pressure 114/42 - Labs CBC & Chem 7: 10/30/20 05:00 10/30/20 05:00 Labs: Abnormal Lab Results - Last 24 Hours (Table) 10/29/20 10/29/20 10/29/20 Range/Units 11:34 15:19 18:14 WBC (3.8-10.6) k/uL RBC (3.80-5.40) m/uL Hgb (11.4-16.0) gm/dL Hct (34.0-46.0) % MCH (25.0-35.0) pg MCHC (31.0-37.0) g/dL RDW (11.5-15.5) % Neutrophils # (1.3-7.7) k/uL Lymphocytes # (1.0-4.8) k/uL Monocytes # (0-1.0) k/uL D-Dimer (<0.60) mg/L FEU ABG pH 7.33 L (7.35-7.45) ABG pCO2 61 H (35-45) mmHg ABG pO2 47 L* (83-108) mmHg ABG HCO3 32 H (21-25) mmol/L ABG Total CO2 34 H (19-24) mmol/L ABG O2 Saturation 76.3 L (94-97) % Sodium (137-145) mmol/L Potassium (3.5-5.1) mmol/L Carbon Dioxide (22-30) mmol/L BUN (7-17) mg/dL Creatinine (0.52-1.04) mg/dL Glucose (74-99) mg/dL POC Glucose (mg/dL) 227 H 289 H (75-99) mg/dL Calcium (8.4-10.2) mg/dL Phosphorus (2.5-4.5) mg/dL Magnesium (1.6-2.3) mg/dL Lactate Dehydrogenase (313-618) U/L C-Reactive Protein (<1.0) mg/dL 10/29/20 10/29/20 10/29/20 Range/Units 18:29 23:14 23:20 WBC (3.8-10.6) k/uL RBC (3.80-5.40) m/uL Hgb (11.4-16.0) gm/dL Hct (34.0-46.0) % MCH (25.0-35.0) pg MCHC (31.0-37.0) g/dL RDW (11.5-15.5) % Neutrophils # (1.3-7.7) k/uL Lymphocytes # (1.0-4.8) k/uL Monocytes # (0-1.0) k/uL D-Dimer (<0.60) mg/L FEU ABG pH 7.17 L* 7.04 L* (7.35-7.45) ABG pCO2 100 H* >120 H* (35-45) mmHg ABG pO2 61 L 80 L (83-108) mmHg ABG HCO3 37 H (21-25) mmol/L ABG Total CO2 40 H (19-24) mmol/L ABG O2 Saturation 80.9 L 88.3 L (94-97) % Sodium (137-145) mmol/L Potassium (3.5-5.1) mmol/L Carbon Dioxide (22-30) mmol/L BUN (7-17) mg/dL Creatinine (0.52-1.04) mg/dL Glucose (74-99) mg/dL POC Glucose (mg/dL) 271 H (75-99) mg/dL Calcium (8.4-10.2) mg/dL Phosphorus (2.5-4.5) mg/dL Magnesium (1.6-2.3) mg/dL Lactate Dehydrogenase (313-618) U/L C-Reactive Protein (<1.0) mg/dL 10/30/20 10/30/20 10/30/20 Range/Units 05:00 05:00 05:00 WBC 38.0 H (3.8-10.6) k/uL RBC 3.37 L (3.80-5.40) m/uL Hgb 7.4 L (11.4-16.0) gm/dL Hct 27.9 L (34.0-46.0) % MCH 21.9 L (25.0-35.0) pg MCHC 26.4 L (31.0-37.0) g/dL RDW 20.3 H (11.5-15.5) % Neutrophils # 36.4 H (1.3-7.7) k/uL Lymphocytes # 0.2 L (1.0-4.8) k/uL Monocytes # 1.2 H (0-1.0) k/uL D-Dimer 8.70 H (<0.60) mg/L FEU ABG pH (7.35-7.45) ABG pCO2 (35-45) mmHg ABG pO2 (83-108) mmHg ABG HCO3 (21-25) mmol/L ABG Total CO2 (19-24) mmol/L ABG O2 Saturation (94-97) % Sodium 150 H (137-145) mmol/L Potassium 5.4 H (3.5-5.1) mmol/L Carbon Dioxide 38 H (22-30) mmol/L BUN 89 H (7-17) mg/dL Creatinine 2.61 H (0.52-1.04) mg/dL Glucose 266 H (74-99) mg/dL POC Glucose (mg/dL) (75-99) mg/dL Calcium 7.3 L (8.4-10.2) mg/dL Phosphorus 10.1 H* (2.5-4.5) mg/dL Magnesium 3.3 H (1.6-2.3) mg/dL Lactate Dehydrogenase 9093 H (313-618) U/L C-Reactive Protein 2.3 H (<1.0) mg/dL 10/30/20 10/30/20 Range/Units 05:08 05:16 WBC (3.8-10.6) k/uL RBC (3.80-5.40) m/uL Hgb (11.4-16.0) gm/dL Hct (34.0-46.0) % MCH (25.0-35.0) pg MCHC (31.0-37.0) g/dL RDW (11.5-15.5) % Neutrophils # (1.3-7.7) k/uL Lymphocytes # (1.0-4.8) k/uL Monocytes # (0-1.0) k/uL D-Dimer (<0.60) mg/L FEU ABG pH 7.11 L* (7.35-7.45) ABG pCO2 118 H* (35-45) mmHg ABG pO2 (83-108) mmHg ABG HCO3 37 H (21-25) mmol/L ABG Total CO2 41 H (19-24) mmol/L ABG O2 Saturation (94-97) % Sodium (137-145) mmol/L Potassium (3.5-5.1) mmol/L Carbon Dioxide (22-30) mmol/L BUN (7-17) mg/dL Creatinine (0.52-1.04) mg/dL Glucose (74-99) mg/dL POC Glucose (mg/dL) 278 H (75-99) mg/dL Calcium (8.4-10.2) mg/dL Phosphorus (2.5-4.5) mg/dL Magnesium (1.6-2.3) mg/dL Lactate Dehydrogenase (313-618) U/L C-Reactive Protein (<1.0) mg/dL
[2020-10-30 11:28] LABS: Glucose,Whole Blood 310 mg/dL (75-99)
--- NOTE | 2020-10-30 14:05 | PN ---
PROGRESS NOTE The patient is seen for followup for acute kidney injury. Patient has underlying COVID pneumonia. She was intubated yesterday. Her condition has deteriorated since yesterday. The patient has been hypotensive. Her urine output has dropped to 5-0 mL an hour. The patient has had poor oxygenation and she is currently in prone position for ventilation. Serum potassium is slightly higher at 5.4. Sodium has increased to 150. PHYSICAL EXAMINATION: On examination today, vital signs are reviewed. Blood pressure 110/40. Heart rate 96 per minute. Case is discussed with nursing staff. The patient is not examined. She remains on the vent in prone position. Tube feeds will be started and urine output as mentioned 0-5 mL an hour. LABS: Labs show hemoglobin 7.4, sodium 150, potassium 5.4, chloride 104, CO2 is 38, BUN 89, creatinine 2.61. ASSESSMENT: 1. Acute kidney injury, acute tubular necrosis, currently oliguric secondary to hypotension and underlying COVID pneumonia. No nephrotoxic agents on board. Check urinalysis. The patient will likely need renal replacement therapy in the next 24- 48 hours if the urine output does not cone picker. 2. Hypernatremia associated with free water deficit, started on free water down the feeding tube. I will change IV fluids to D5W. The sodium has increased since yesterday. 3. Hyperkalemia associated with acute kidney injury. Tube feeds will be Nepro tube feedings and agree with trial of Lasix and if hyperkalemia is worse, the patient will need dialysis. 4. Hyperphosphatemia associated with acute kidney injury. 5. Acute hypercapnic and hypoxic respiratory failure currently on the vent. The patient has significant respiratory acidosis. She is currently in prone position. 6. COVID pneumonia, maintained on steroids, status post tocilizumab on 10/27/2020. 7. 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 Continue to watch for gastrointestinal bleed. 8. History of chronic obstructive pulmonary disease. 9. History of type 2 diabetes. PLAN: Repeat labs later on today. Change IV fluids to D5W. Continue with the free water that has been started with the tube feedings. Possible hemodialysis in a.m. if hyperkalemia is worse. MMODL / IJN: [id number] /
[2020-10-30] MEDS: CALCIUM ACETATE 667 MG TAB PO SCH ×2 (14:09→17:09)
[2020-10-30 14:14] LABS: Glucose,Whole Blood 348 mg/dL (75-99)
[2020-10-30] MEDS ORDERED: INSULIN REGULAR BOLUS (FROM DRIP BAG) IV PRN (14:16)
[2020-10-30] MEDS: INSULIN REGULAR 100 UNIT in SODIUM CHLORIDE 0.9% 100 ML IV SCH ×2 (14:57→22:12)
--- NOTE | 2020-10-30 15:43 | XR ---
EXAMINATION TYPE: XR chest 1V portable DATE OF EXAM: 10/30/2020 CLINICAL HISTORY: Difficulty breathing and covid pneumonia progress study. TECHNIQUE: Single AP portable supine view of the chest is obtained. COMPARISON: Chest x-ray from one day earlier and older studies. FINDINGS: Stable right internal jugular central venous catheter and orogastric tube. Improved positi oning endotracheal tube. Persistent multifocal and confluent opacities bilaterally. Cardiac silhouette size is stable and uppe r limits of normal with atherosclerotic aorta. Osseous structures are intact. IMPRESSION: Improved positioning endotracheal tube. Other findings stable, bilateral confluent opacit ies consistent with covid-19 infection are redemonstrated
[2020-10-30 15:54] LABS: Glucose,Whole Blood 317 mg/dL (75-99)
[2020-10-30 16:21] LABS: Appearance,Urine Cloudy (Clear); Bacteria,Urine Many /hpf; Bilirubin,Urine Negative (Negative); Blood,Urine Moderate (Negative); Budding Yeast,Urine Few /hpf; Color,Urine Yellow; Glucose,Urine (UA) Negative (Negative); Ketones,Urine Negative (Negative); Leukocyte Esterase,Urine Large (Negative); Mucus,Urine Occasional /hpf; Nitrite,Urine Negative (Negative); Protein,Urine 1+ (Negative); RBC,Urine 19 /hpf (0-5); Specific Gravity,Urine 1.017 (1.001-1.035); Squamous Epithelial Cell,Urine 1 /hpf (0-4); Urobilinogen,Urine <2.0 mg/dL (<2.0); WBC,Urine 32 /hpf (0-5)
[2020-10-30 16:31] LABS: Hepatitis B Surface AB- Quant 3.5 mIU/mL; Hepatitis B Surface Antibody Non-Reactive (Non-Reactive); Hepatitis B Surface Antigen Non-Reactive (Non-Reactive)
[2020-10-30 17:06] LABS: Glucose,Whole Blood 231 mg/dL (75-99)
[2020-10-30] MEDS: SENNOSIDES-DOCUSATE SODIUM 1 EACH TAB PO SCH (17:31)
[2020-10-30 18:00] LABS: Glucose,Whole Blood 214 mg/dL (75-99)
[2020-10-30 18:58] LABS: Glucose,Whole Blood 175 mg/dL (75-99)
[2020-10-30] MEDS: CISATRACURIUM 200 MG in SODIUM CHLORIDE 0.9% 180 ML IV SCH (19:03)
[2020-10-30] MEDS ORDERED: ENOXAPARIN 60 MG/0.6 ML SYRINGE SQ SCH (21:00)
[2020-10-30 22:09] LABS: Glucose,Whole Blood 155 mg/dL (75-99)
[2020-10-30] MEDS: CEFEPIME 1 GM in SODIUM CHLORIDE 0.9% 50 ML IVPB SCH (22:10)
[2020-10-30] MEDS: MELATONIN 3 MG TABLET PO SCH (22:12)
[2020-10-30] MEDS: MONTELUKAST 10 MG TAB PO SCH (22:18)
[2020-10-30 22:58] LABS: Glucose,Whole Blood 148 mg/dL (75-99)
[2020-10-31] MEDS: CLEVIDIPINE BUTYRATE 25 MG in EMPTY BAG 1 BAG IV SCH (00:03)
[2020-10-31] MEDS: ARTIFICIAL TEARS-HYPROMELLOSE DROPS 15 ML BTL BOTH EYES SCH ×4 (00:08→11:59)
[2020-10-31] MEDS: methylPREDNISolone SOD SUCCI 125 MG/2 ML VIAL IV SCH ×2 (00:08→08:45)
[2020-10-31 00:26] LABS: Glucose,Whole Blood 143 mg/dL (75-99)
[2020-10-31 00:59] LABS: Glucose,Whole Blood 148 mg/dL (75-99)
[2020-10-31 01:06] VITALS: RESP 38
[2020-10-31 02:17] LABS: Glucose,Whole Blood 142 mg/dL (75-99)
[2020-10-31] MEDS: NOREPINEPHRINE 8 MG in SODIUM CHLORIDE 0.9% 250 ML IV SCH ×3 (02:36→10:06)
[2020-10-31] MEDS: CISATRACURIUM 200 MG in SODIUM CHLORIDE 0.9% 180 ML IV SCH (02:36)
[2020-10-31 04:01] LABS: Glucose,Whole Blood 179 mg/dL (75-99)
[2020-10-31 04:26] LABS: C Reactive Protein 1.4 mg/dL (<1.0); Calcium 7.2 mg/dL (8.4-10.2); Magnesium 3.1 mg/dL (1.6-2.3); Total Bilirubin 0.9 mg/dL (0.2-1.3); Total Protein 5.7 g/dL (6.3-8.2)
[2020-10-31 04:34] LABS: Anisocytosis Slight; HCT 29.9 % (34.0-46.0); HGB 7.3 gm/dL (11.4-16.0); Hypochromasia Marked; MCHC 24.4 g/dL (31.0-37.0); MCV 86.1 fL (80.0-100.0); Mean Platelet Volume 9.5; Platelet Count 190 k/uL (150-450); RBC 3.47 m/uL (3.80-5.40); RDW 19.4 % (11.5-15.5)
[2020-10-31 04:53] LABS: Glucose,Whole Blood 175 mg/dL (75-99)
[2020-10-31] MEDS: DEXTROSE 5% IN WATER 1,000 ML IV SCH (04:54)
[2020-10-31 05:01] LABS: Potassium 6.3 mmol/L (3.5-5.1)
[2020-10-31 05:02] LABS: Phosphorus 10.7 mg/dL (2.5-4.5)
[2020-10-31 05:06] LABS: Band Neutrophils % 1 %; Lymphocytes # (M) 0.39 k/uL (1.0-4.8); Metamyelocytes # (M) 0.78 k/uL (0); Metamyelocytes % 2 %; Monocytes # (M) 0.78 k/uL (0-1.0); Myelocytes # (M) 0.39 k/uL (0); Myelocytes % 1 %; Neutrophils % (M) 96 %; Nucleated Red Blood Cells 1 /100 WBC (0-0); Total Cells Counted 200; WBC 38.8 k/uL (3.8-10.6)
[2020-10-31 05:07] LABS: Basophilic Stippling Present; Toxic Granulation Present
[2020-10-31 05:07] LABS: ABG Base Excess 2.6 mmol/L; ABG HCO3 32 mmol/L (21-25); ABG Oxygen Saturation 86.7 % (94-97); ABG PO2 64 mmHg (83-108); ABG TCO2 36 mmol/L (19-24); Allen Test Performed? Yes
[2020-10-31 05:10] LABS: ABG PCO2 105 mmHg (35-45)
[2020-10-31] MEDS ORDERED: SODIUM BICARB 8.4% 50 ML SYR (1 MEQ/ML) IV STA ×3 (05:19→16:21)
[2020-10-31] MEDS ORDERED: DEXTROSE 50% SYRINGE 50 ML IVP STA (05:23)
[2020-10-31] MEDS ORDERED: INSULIN REGULAR 100 UNIT/ML VIAL IV ONE ×2 (05:23→16:27)
--- NOTE | 2020-10-31 05:53 | XR ---
EXAMINATION TYPE: XR chest 1V portable DATE OF EXAM: 10/31/2020 CLINICAL HISTORY: Difficulty breathing and covid progress study. TECHNIQUE: Single AP portable upright view of the chest is obtained. COMPARISON: Chest x-ray from one day earlier and older studies. FINDINGS: Stable right internal jugular central venous catheter and orogastric tube. Stable endotrac heal tube. Persistent multifocal and confluent opacities bilaterally. Cardiac silhouette size is stable and mild ly enlarged with atherosclerotic aorta. Osseous structures are intact. Cholecystectomy clips incident ally noted. IMPRESSION: Bilateral multifocal and confluent opacities consistent with covid-19 infection are redem onstrated, no significant change from one day earlier.
[2020-10-31 06:12] LABS: Glucose,Whole Blood 210 mg/dL (75-99)
[2020-10-31] MEDS: CALCIUM ACETATE 667 MG TAB PO SCH ×2 (06:36→12:12)
[2020-10-31] MEDS: LEVOTHYROXINE 125 MCG TAB PO SCH (06:36)
[2020-10-31 07:04] LABS: Glucose,Whole Blood 172 mg/dL (75-99)
[2020-10-31 08:04] LABS: Glucose,Whole Blood 149 mg/dL (75-99)
[2020-10-31] MEDS: ENOXAPARIN 40 MG/0.4 ML SYRINGE SQ SCH (08:44)
[2020-10-31] MEDS: CHLORHEXIDINE GLUCONATE 15 ML CUP MUCOUS MEM SCH (08:44)
[2020-10-31] MEDS: PREGABALIN 100 MG CAP PO SCH (08:44)
[2020-10-31] MEDS: PANTOPRAZOLE 40 MG/10 ML VIAL IVP SCH (08:45)
[2020-10-31] MEDS: ZINC SULFATE 220 MG CAP PO SCH (08:45)
[2020-10-31] MEDS: ASCORBIC ACID 500 MG TAB PO SCH (08:45)
[2020-10-31] MEDS: guaiFENesin 600 MG TABLET.ER PO SCH (08:45)
[2020-10-31] MEDS: NYSTATIN 100,000 UNIT/ML SUSP 500,000 UNIT/5 ML CUP PO SCH ×2 (08:46→14:39)
[2020-10-31] MEDS: CHOLECALCIFEROL 25 MCG (1000 IU) TABLET PO SCH (08:46)
[2020-10-31] MEDS: LINAGLIPTIN 5 MG TABLET PO SCH (08:48)
[2020-10-31] MEDS: INSULIN DETEMIR (LEVEMIR) 100 UNIT/ML SYR SQ SCH (08:48)
[2020-10-31] MEDS: FLUoxetine HCL 20 MG CAP PO SCH (09:00)
--- NOTE | 2020-10-31 09:08 | P.PN ---
Subjective Progress Note Date: 10/31/20 On today's evaluation of 10/27/2020, the patient is being seen for a follow-up. She is a morbidly obese female patient patient with a BMI of 48.1 and the patient is currently in acute hypoxic respiratory failure essentially due to COVID-19 related pneumonia. The patient is currently on BiPAP at a pressure of 12/6 with an FiO2 of 100% and her pulse ox is currently at 90%. She is awake and alert and she is communicating. The blood gases from yesterday showed a component of acute on top of chronic respiratory acidosis. Her pH was at 7.31 with a pCO2 of 56. The patient remains on IV Solu-Medrol 60 mg every 8 hours. The patient is also on Symbicort 160/4.52 puffs twice a day, Spiriva 1 ventilati on day and albuterol HFA on an as-needed basis. She is tolerating the BiPAP without any major difficulties pH is urinating a tidal volume of around 400. No altered mentation on today's evaluation. The patient is known to me from earlier hospitalizations. She has chronic dyspnea on chronic hypoxemic respiratory failure and chronic hypercapnic respiratory failure. She has a component of COPD and diastolic heart failure. She has been maintained on diuretics for many years. She is typically maintained on oxygen at 4 L per minute nasal cannula. She is an ex smoker. No new labs from today. Inflammatory markers including LDH from yesterday was 2229 and the CRP level was at 1.0. Creatinine today's is at 1.24 with a BUN of 70. 10/28/2020, the patient is being seen for a follow-up. I initially saw her at telemetry unit and the patient was still on a BiPAP since yesterday at the press ure of 12/6 with an FiO2 of 100%. She was very much BiPAP dependent. Unable to come off the BiPAP as the patient would decompensate and she will become more short of breath and hypoxemic. The patient is still being treated for complications of COVID-19 related pneumonia. The patient is currently on IV Solu-Medrol 60 mg every 8 hours. She was given Tocilizumab 800 mg IV yesterday. She remains on Lovenox for an aggressive subcu for DVT prophylaxis. Keep him was also initiated for nutritional support. In terms of inflammatory markers, the patient d-dimer is at 4.37. LDH level is at 2622.this level is slightly higher compared to yesterday.meanwhile, the patient has a potassium level of 5.3, BUN is at 74 with a creatinine of 1.1. Serum bicarbonate is at 40. D- dimer is at 4.37. The white cell causes 15.3 with a hemoglobin of 9.9. Platelet count is at 120, drop since yesterday. I felt that her breathing has become much more labored compared to yesterday. She was having a high minute ventilation. Intermittent ventilation was above 20 L per minute. She was able to generate adequate tidal volumes, however, she was still tachypneic. Based on all this, the patient was transferred to the intensive care unit. After she arrived to the ICU, the patient started having some oxygen desaturations. Her saturation was running around 76-80%. She would come up to the low 80s and she would fall back and she was noticed to have moderate work of breathing. At that point, I made recommendations to increase the BiPAP pressure 14/10 and monitor the oxygenation while her being 100% FiO2. High likelihood that the patient made further decompensated and may require intubation mechanical ventilation. With that reason, she was moved to the intensive care unit. 21, the patient is in the intensive care unit, transferred yesterday because of worsening respiratory status and respiratory decompensation and the patient was placed on a BiPAP initially the pressures of 12/60 and overnight the BiPAP pressure to be adjusted and ultimately she was brought up to BiPAP pressures of 16/12 cm of water and FiO2 of 100%. She is able to tolerate. Blood gases from today shows a pH of 7.31 with a pCO2 of 72 and pO2 of 50.7. Chest x-ray from today is showing diffuse bilateral pulmonary infiltrates along with some cardiomegaly. No significant interval change compared to yesterday. This is consistent with COVID-19 related pneumonia. A triple lumen catheter was inserted through the right IJ.. The patient remains on IV Solu Medrol 60 mg every 8 hours. The patient is also on Lovenox at a dose of 40 mg subcu every 12 hours. In terms of COVID-19 related inflammatory markers, the patient has a LDH level of 2040 and a CRP level is at 2.9. D-dimer is at 5.85. She is awake. She is following commands. She still communicating. She is very much BiPAP dependent and she is unable to come up to BiPAP because of respiratory insufficiency and hypoxemia. She is able to generate tidal volumes of 400 mL on the BiPAP with respiratory rate of 20 and a minute ventilation of 8.1 L. She was also positioned in her left lateral side with seems to be an adequate spot for her in terms of her oxygenation. Requiring any pressors. She is not requiring any sedation for now. She is calm and comfortable and sedated as of the BiPAP machine. In terms of her blood work, the patient has sodium level of 148 and the creatinine is at 1.26 and the patient is receiving 0.9 saline at the rate of 75 mL an hour. Her white cell causes 15, hemoglobin has dropped down to 7.5 and there is no signs of any external bleeding. This sounded to be monitored. Platelet count is at 197. No other significant issues otherwise for now. The arterial line was also inserted in her right upper extremity. 10/30/2020, the patient is intubated on a mechanical ventilator. Note that the patient got transferred to the intensive care unit. She was placed on a BiPAP at the higher pressures and ultimately she failed and the patient continued to be hypoxic with a pulse ox in the mid and low 70s. She was awake throughout this time. She progressively became more lethargic, more tachypneic and she ultimately had to be intubated and placed on a mechanical ventilator. I performed intubation process seen in the intensive care unit. Post intubation, the patient had difficulties with oxygenation. We are unable to bring her pulse ox above 75%. At that point, we decided to put the patient a prone nohelia position. She was prone to yesterday at around 6 PM and she is still prone to this morning. This morning, the patient remains on a mechanical ventilator. The most recent ventilator settings include an assist-control mode at the rate of 38 and a tidal volume of 300 and an FiO2 of 100% with a PEEP of 20. Morning blood gases show a pH of 7.1 with a pCO2 of 118 and pCO2 of 94. Current pulse o x on the monitor is 98% and a peak airway pressures around 44. Static pressure is 42. No chest x-rays done this morning. The patient is currently sedated and paralyzed. Propofol is running at 20 mcg/kg per minute and Nimbex is running at 0.5 mcg/kg/m. Meanwhile, overnight, the patient maintained her blood pressure. Late in the evening, her urine output dropped initially down to 20 mL an hour and currently she is less than 5 mL an hour. Morning creatinine is up to 2.6, baseline of 1.2. BUN is 89. Overnight, the patient received a total of 2 L of normal saline boluses. She was also given a dose of Lasix 40 mg IV push without any response. Note that the patient was also started on pressors and currently she is on norepinephrine at 0.04 mcg/kg per minute. Also, the patient was started on a bicarb infusion to counteract her severe respiratory acidosis. The bicarb infusion currently is running at 150 mL an hour. Her serum bicarb is up to 38. Her current sodium level is up 250. Blood sugar is at 266. Phosphorus is at 10.1. She has a Raphael catheter in place. Her white cell count is up to 38 and her hemoglobin is stable at 7.4. Note that she had a 2 g hemoglobin drop yesterday and things have remained stable since. In terms of her inflammatory markers, her d-dimer is up to 8.7, her LDH level is up to 9093 and the CRP level is at 2.3.The patient remains on steroids and the patient is receiving IV Solu-Medrol 60 mg every 8 hours. The patient remains on Lovenox 40 mg subcu every 12 hours. THE patient is currently nothing by mouth. I'm going to start on tube feeding once the patient is position back in a supine body position. We'll consult nephrology at this point in time specially with a evolving renal failure. 10/31/2020, the patient remains intubated on a mechanical ventilator. She is a case of ARDS secondary to COVID-19 related pneumonia. The patient remains profoundly hypoxic, sedated on mechanical ventilator and she remains paralyzed. She is also undergoing home positioning. She did prone positioning for a total of 16 hours yesterday and the blood gases and oxidation improved while being in a prone nohelia position with a pO2 of 91. Subsequently she was placed supine for the next 6 hours and she was prone to again overnight. This morning she is in a prone nohelia position. She is on a mechanical ventilator. She is sedated with propofol which is running at 20 mcg/kg per minute and she is also on Nimbex at 0.75 g spectrogram her minutes. The patient is adequately sedated and paralyzed. The chest x-ray once supine showed diffuse but the pulmonary infiltrates with adequate positioning of the orotracheal tube. NG tube was also in place. The morning blood pressure with a pH of 7.1 with a pCO2 of 105 and a pO2 of 64. Peak airway pressure remains quite elevated at 46 with a static pressure of 44. She is currently on a assist-control at the rate of 38 with a tidal volume of 300 and FiO2 of 100% with a PEEP of 20. Minute ventilation is 11 L. She is unfortunately heart acidotic and this is permissive hypercapnia. Her potassium level has been as high as 6.3 earlier this morning. The patient was given a total of 2 bicarb and pulls at rest and milliequivalents each and she was also given D50 and insulin. Her potassium level subsequently came down to 5.5. In terms of her blood work, the white cell count remains elevated at 38. Hemoglobin stable at 7.4 without evidence of any GI bleed. Platelet count this slightly lower. Stable at 190. Meanwhile, the patient's renal function is obviously worse. Creatinine is up to 3.2. She is producing urine output in the order of 5-10 mL an hour. The findings on the case. She was given Lasix throughout the day yesterday and she was given 80 mg of Lasix IV push and this will be continued at a dose of 80 mg IV every 12 hours. IV fluids are running in the form of D5 W 100 mL an hour. Her sodium today is at 140 and her IV fluid will be switched to half-normal at the rate of 100 mL an hour. The patient is still receiving free water flushes through her NG tube. When the patient is supine. Enteral feedings also being applied when she is supine. While prone, the patient is Nothing by mouth. Unfortunately, along with his acute kidney injury, the patient also has developed a shock liver. AST is up to 1875, ALT is up to 2714 and furthermore the LDH level is at 6328 and the CRP level is at 1.4. As such, the patient has signs of multisystem organ failure along with COVID-19 related pneumonia/ARDS. This carries a very high mortality. She remains hypotensive. Norepinephrine infusion is running at lower level is at 0.59. The patient is currently covered with empiric antibiotics and she is receiving IV cefepime 1 g every 12 hours cultures of been all negative. She is afebrile. Objective - Vital Signs Vital signs: Vital Signs Temp 98.4 F 10/31/20 04:00 Pulse 115 H 10/31/20 07:00 Resp 38 H 10/31/20 07:00 BP 99/42 10/31/20 07:00 Pulse Ox 83 L 10/31/20 07:00 Intake & Output 10/30/20 10/31/20 10/31/20 18:59 06:59 18:59 Intake Total 2346.488 2564.534 184.524 Output Total 115 80 5 Balance 2231.488 2484.534 179.524 Weight 111.3 kg 94 kg Intake: IV 333 1186 103 Cefepime 1 gm In Sodium 50 Chloride 0.9% 50 ml @ 12. 5 mls/hr IVPB Q12HR [facility] Rx#:[id number] Dextrose 5% in Water 1, 1100 100 000 ml @ 100 mls/hr IV . Q10H [facility] Rx#:[id number] Dextrose 5% in Water 1, 300 000 ml @ 150 mls/hr IV . Q7H40M [facility] with Sodium Bicarb (1 Meq/ml) 150 ml Rx#:[id number] Pressure Bag 33 36 3 Intake, IV Titration 1633.488 748.534 81.524 Amount Cefepime 1 gm In Sodium 50 Chloride 0.9% 50 ml @ 12. 5 mls/hr IVPB Q12HR [facility] Rx#:[id number] Cefepime 2 gm In Sodium 100 Chloride 0.9% 100 ml @ 25 mls/hr IVPB Q12HR [facility] Rx #:[id number] Cisatracurium 200 mg In 53.424 60.576 Sodium Chloride 0.9% 180 ml @ 1 MCG/KG/MIN 6.678 mls/hr IV .Q24H [facility] Rx#: [id number] Dextrose 5% in Water 1, 1000 100 000 ml @ 100 mls/hr IV . Q10H [facility] Rx#:[id number] Insulin Regular 100 unit 54.540 28.263 7.222 In Sodium Chloride 0.9% 100 ml @ Per Protocol IV .Q0M [facility] Rx#:[id number] Norepinephrine 8 mg In 175.524 411.889 74.302 Sodium Chloride 0.9% 250 ml @ 0.05 MCG/KG/MIN 10. 768 mls/hr IV .[id number] [facility] Rx#:[id number] propofoL 1,000 mg In 200 147.806 Empty Bag 1 bag @ Titrate IV .Q0M [facility] Rx#: [id number] Tube Feeding 100 230 0 Other 280 400 0 Output: Urine 115 80 5 Other: Voiding Method Indwelling Catheter Indwelling Catheter ABP, PAP, CO, CI - Last Documented Arterial Blood Pressure 95/49 - Exam GENERAL EXAM: Alert, pleasant, obese 65-year-old female patient, she is currently in a prone body position. The patient is intubated and she has an orotracheal and orogastric tube are both of them are in good locations. HEAD: Normocephalic. EYES: Normal reaction of pupils, equal size. NOSE: Clear with pink turbinates. THROAT: No erythema or exudates. NECK: No masses, no JVD. CHEST: No chest wall deformity. LUNGS: Equal air entry with bilateral end expiratory wheeze, diminished. CVS: S1 and S2 normal with no audible murmur, regular rhythm. ABDOMEN: No hepatosplenomegaly, normal bowel sounds, no guarding or rigidity. SPINE: No scoliosis or deformity SKIN: No rashes CENTRAL NERVOUS SYSTEM: The patient is sedated. The patient is paralyzed. Detailed neurologic evaluation cannot be done. Pupils are equal and reactive to light. EXTREMITIES: There is 1-2+ peripheral edema. No clubbing, no cyanosis. P eripheral pulses are intact. - Labs CBC & Chem 7: 10/31/20 03:55 10/31/20 07:00 Labs: Abnormal Lab Results - Last 24 Hours (Table) 10/30/20 10/30/20 10/30/20 Range/Units 05:00 11:26 14:12 WBC (3.8-10.6) k/uL RBC (3.80-5.40) m/uL Hgb (11.4-16.0) gm/dL Hct (34.0-46.0) % MCH (25.0-35.0) pg MCHC (31.0-37.0) g/dL RDW (11.5-15.5) % Neutrophils # (Manual) (1.3-7.7) k/uL Lymphocytes # (Manual) (1.0-4.8) k/uL Metamyelocytes # (Man) (0) k/uL Myelocytes # (Manual) (0) k/uL Nucleated RBCs (0-0) /100 WBC D-Dimer (<0.60) mg/L FEU ABG pH (7.35-7.45) ABG pCO2 (35-45) mmHg ABG pO2 (83-108) mmHg ABG HCO3 (21-25) mmol/L ABG Total CO2 (19-24) mmol/L ABG O2 Saturation (94-97) % Potassium (3.5-5.1) mmol/L Carbon Dioxide (22-30) mmol/L BUN (7-17) mg/dL Creatinine (0.52-1.04) mg/dL Glucose (74-99) mg/dL POC Glucose (mg/dL) 310 H 348 H (75-99) mg/dL Calcium (8.4-10.2) mg/dL Phosphorus (2.5-4.5) mg/dL Magnesium (1.6-2.3) mg/dL AST (14-36) U/L ALT (4-34) U/L Alkaline Phosphatase (38-126) U/L Lactate Dehydrogenase (313-618) U/L C-Reactive Protein (<1.0) mg/dL Total Protein (6.3-8.2) g/dL Albumin (3.5-5.0) g/dL Procalcitonin 0.59 H (0.02-0.09) ng/mL Urine Appearance (Clear) Urine Protein (Negative) Urine Blood (Negative) Ur Leukocyte Esterase (Negative) Urine RBC (0-5) /hpf Urine WBC (0-5) /hpf Urine Bacteria (None) /hpf Urine Mucus (None) /hpf Urine Yeast (Budding) (None) /hpf 10/30/20 10/30/20 10/30/20 Range/Units 15:50 15:52 17:05 WBC (3.8-10.6) k/uL RBC (3.80-5.40) m/uL Hgb (11.4-16.0) gm/dL Hct (34.0-46.0) % MCH (25.0-35.0) pg MCHC (31.0-37.0) g/dL RDW (11.5-15.5) % Neutrophils # (Manual) (1.3-7.7) k/uL Lymphocytes # (Manual) (1.0-4.8) k/uL Metamyelocytes # (Man) (0) k/uL Myelocytes # (Manual) (0) k/uL Nucleated RBCs (0-0) /100 WBC D-Dimer (<0.60) mg/L FEU ABG pH (7.35-7.45) ABG pCO2 (35-45) mmHg ABG pO2 (83-108) mmHg ABG HCO3 (21-25) mmol/L ABG Total CO2 (19-24) mmol/L ABG O2 Saturation (94-97) % Potassium (3.5-5.1) mmol/L Carbon Dioxide (22-30) mmol/L BUN (7-17) mg/dL Creatinine (0.52-1.04) mg/dL Glucose (74-99) mg/dL POC Glucose (mg/dL) 317 H 231 H (75-99) mg/dL Calcium (8.4-10.2) mg/dL Phosphorus (2.5-4.5) mg/dL Magnesium (1.6-2.3) mg/dL AST (14-36) U/L ALT (4-34) U/L Alkaline Phosphatase (38-126) U/L Lactate Dehydrogenase (313-618) U/L C-Reactive Protein (<1.0) mg/dL Total Protein (6.3-8.2) g/dL Albumin (3.5-5.0) g/dL Procalcitonin (0.02-0.09) ng/mL Urine Appearance Cloudy H (Clear) Urine Protein 1+ H (Negative) Urine Blood Moderate H (Negative) Ur Leukocyte Esterase Large H (Negative) Urine RBC 19 H (0-5) /hpf Urine WBC 32 H (0-5) /hpf Urine Bacteria Many H (None) /hpf Urine Mucus Occasional H (None) /hpf Urine Yeast (Budding) Few H (None) /hpf 10/30/20 10/30/20 10/30/20 Range/Units 17:58 18:57 22:08 WBC (3.8-10.6) k/uL RBC (3.80-5.40) m/uL Hgb (11.4-16.0) gm/dL Hct (34.0-46.0) % MCH (25.0-35.0) pg MCHC (31.0-37.0) g/dL RDW (11.5-15.5) % Neutrophils # (Manual) (1.3-7.7) k/uL Lymphocytes # (Manual) (1.0-4.8) k/uL Metamyelocytes # (Man) (0) k/uL Myelocytes # (Manual) (0) k/uL Nucleated RBCs (0-0) /100 WBC D-Dimer (<0.60) mg/L FEU ABG pH (7.35-7.45) ABG pCO2 (35-45) mmHg ABG pO2 (83-108) mmHg ABG HCO3 (21-25) mmol/L ABG Total CO2 (19-24) mmol/L ABG O2 Saturation (94-97) % Potassium (3.5-5.1) mmol/L Carbon Dioxide (22-30) mmol/L BUN (7-17) mg/dL Creatinine (0.52-1.04) mg/dL Glucose (74-99) mg/dL POC Glucose (mg/dL) 214 H 175 H 155 H (75-99) mg/dL Calcium (8.4-10.2) mg/dL Phosphorus (2.5-4.5) mg/dL Magnesium (1.6-2.3) mg/dL AST (14-36) U/L ALT (4-34) U/L Alkaline Phosphatase (38-126) U/L Lactate Dehydrogenase (313-618) U/L C-Reactive Protein (<1.0) mg/dL Total Protein (6.3-8.2) g/dL Albumin (3.5-5.0) g/dL Procalcitonin (0.02-0.09) ng/mL Urine Appearance (Clear) Urine Protein (Negative) Urine Blood (Negative) Ur Leukocyte Esterase (Negative) Urine RBC (0-5) /hpf Urine WBC (0-5) /hpf Urine Bacteria (None) /hpf Urine Mucus (None) /hpf Urine Yeast (Budding) (None) /hpf 10/30/20 10/31/20 10/31/20 Range/Units 22:56 00:24 00:58 WBC (3.8-10.6) k/uL RBC (3.80-5.40) m/uL Hgb (11.4-16.0) gm/dL Hct (34.0-46.0) % MCH (25.0-35.0) pg MCHC (31.0-37.0) g/dL RDW (11.5-15.5) % Neutrophils # (Manual) (1.3-7.7) k/uL Lymphocytes # (Manual) (1.0-4.8) k/uL Metamyelocytes # (Man) (0) k/uL Myelocytes # (Manual) (0) k/uL Nucleated RBCs (0-0) /100 WBC D-Dimer (<0.60) mg/L FEU ABG pH (7.35-7.45) ABG pCO2 (35-45) mmHg ABG pO2 (83-108) mmHg ABG HCO3 (21-25) mmol/L ABG Total CO2 (19-24) mmol/L ABG O2 Saturation (94-97) % Potassium (3.5-5.1) mmol/L Carbon Dioxide (22-30) mmol/L BUN (7-17) mg/dL Creatinine (0.52-1.04) mg/dL Glucose (74-99) mg/dL POC Glucose (mg/dL) 148 H 143 H 148 H (75-99) mg/dL Calcium (8.4-10.2) mg/dL Phosphorus (2.5-4.5) mg/dL Magnesium (1.6-2.3) mg/dL AST (14-36) U/L ALT (4-34) U/L Alkaline Phosphatase (38-126) U/L Lactate Dehydrogenase (313-618) U/L C-Reactive Protein (<1.0) mg/dL Total Protein (6.3-8.2) g/dL Albumin (3.5-5.0) g/dL Procalcitonin (0.02-0.09) ng/mL Urine Appearance (Clear) Urine Protein (Negative) Urine Blood (Negative) Ur Leukocyte Esterase (Negative) Urine RBC (0-5) /hpf Urine WBC (0-5) /hpf Urine Bacteria (None) /hpf Urine Mucus (None) /hpf Urine Yeast (Budding) (None) /hpf 10/31/20 10/31/20 10/31/20 Range/Units 02:16 03:55 03:55 WBC 38.8 H (3.8-10.6) k/uL RBC 3.47 L (3.80-5.40) m/uL Hgb 7.3 L (11.4-16.0) gm/dL Hct 29.9 L (34.0-46.0) % MCH 21.0 L (25.0-35.0) pg MCHC 24.4 L (31.0-37.0) g/dL RDW 19.4 H (11.5-15.5) % Neutrophils # (Manual) 37.60 H (1.3-7.7) k/uL Lymphocytes # (Manual) 0.39 L (1.0-4.8) k/uL Metamyelocytes # (Man) 0.78 H (0) k/uL Myelocytes # (Manual) 0.39 H (0) k/uL Nucleated RBCs 1 H (0-0) /100 WBC D-Dimer 14.30 H (<0.60) mg/L FEU ABG pH (7.35-7.45) ABG pCO2 (35-45) mmHg ABG pO2 (83-108) mmHg ABG HCO3 (21-25) mmol/L ABG Total CO2 (19-24) mmol/L ABG O2 Saturation (94-97) % Potassium (3.5-5.1) mmol/L Carbon Dioxide (22-30) mmol/L BUN (7-17) mg/dL Creatinine (0.52-1.04) mg/dL Glucose (74-99) mg/dL POC Glucose (mg/dL) 142 H (75-99) mg/dL Calcium (8.4-10.2) mg/dL Phosphorus (2.5-4.5) mg/dL Magnesium (1.6-2.3) mg/dL AST (14-36) U/L ALT (4-34) U/L Alkaline Phosphatase (38-126) U/L Lactate Dehydrogenase (313-618) U/L C-Reactive Protein (<1.0) mg/dL Total Protein (6.3-8.2) g/dL Albumin (3.5-5.0) g/dL Procalcitonin (0.02-0.09) ng/mL Urine Appearance (Clear) Urine Protein (Negative) Urine Blood (Negative) Ur Leukocyte Esterase (Negative) Urine RBC (0-5) /hpf Urine WBC (0-5) /hpf Urine Bacteria (None) /hpf Urine Mucus (None) /hpf Urine Yeast (Budding) (None) /hpf 10/31/20 10/31/20 10/31/20 Range/Units 03:55 03:59 04:51 WBC (3.8-10.6) k/uL RBC (3.80-5.40) m/uL Hgb (11.4-16.0) gm/dL Hct (34.0-46.0) % MCH (25.0-35.0) pg MCHC (31.0-37.0) g/dL RDW (11.5-15.5) % Neutrophils # (Manual) (1.3-7.7) k/uL Lymphocytes # (Manual) (1.0-4.8) k/uL Metamyelocytes # (Man) (0) k/uL Myelocytes # (Manual) (0) k/uL Nucleated RBCs (0-0) /100 WBC D-Dimer (<0.60) mg/L FEU ABG pH (7.35-7.45) ABG pCO2 (35-45) mmHg ABG pO2 (83-108) mmHg ABG HCO3 (21-25) mmol/L ABG Total CO2 (19-24) mmol/L ABG O2 Saturation (94-97) % Potassium 6.3 H* (3.5-5.1) mmol/L Carbon Dioxide 37 H (22-30) mmol/L BUN 111 H* (7-17) mg/dL Creatinine 3.28 H (0.52-1.04) mg/dL Glucose 164 H (74-99) mg/dL POC Glucose (mg/dL) 179 H 175 H (75-99) mg/dL Calcium 7.2 L (8.4-10.2) mg/dL Phosphorus 10.7 H* (2.5-4.5) mg/dL Magnesium 3.1 H (1.6-2.3) mg/dL AST 1875 H (14-36) U/L ALT 2714 H (4-34) U/L Alkaline Phosphatase 217 H (38-126) U/L Lactate Dehydrogenase 6328 H (313-618) U/L C-Reactive Protein 1.4 H (<1.0) mg/dL Total Protein 5.7 L (6.3-8.2) g/dL Albumin 3.0 L (3.5-5.0) g/dL Procalcitonin (0.02-0.09) ng/mL Urine Appearance (Clear) Urine Protein (Negative) Urine Blood (Negative) Ur Leukocyte Esterase (Negative) Urine RBC (0-5) /hpf Urine WBC (0-5) /hpf Urine Bacteria (None) /hpf Urine Mucus (None) /hpf Urine Yeast (Budding) (None) /hpf 10/31/20 10/31/20 10/31/20 Range/Units 05:02 06:11 07:00 WBC (3.8-10.6) k/uL RBC (3.80-5.40) m/uL Hgb (11.4-16.0) gm/dL Hct (34.0-46.0) % MCH (25.0-35.0) pg MCHC (31.0-37.0) g/dL RDW (11.5-15.5) % Neutrophils # (Manual) (1.3-7.7) k/uL Lymphocytes # (Manual) (1.0-4.8) k/uL Metamyelocytes # (Man) (0) k/uL Myelocytes # (Manual) (0) k/uL Nucleated RBCs (0-0) /100 WBC D-Dimer (<0.60) mg/L FEU ABG pH 7.10 L* (7.35-7.45) ABG pCO2 105 H* (35-45) mmHg ABG pO2 64 L (83-108) mmHg ABG HCO3 32 H (21-25) mmol/L ABG Total CO2 36 H (19-24) mmol/L ABG O2 Saturation 86.7 L (94-97) % Potassium 5.5 H (3.5-5.1) mmol/L Carbon Dioxide (22-30) mmol/L BUN (7-17) mg/dL Creatinine (0.52-1.04) mg/dL Glucose (74-99) mg/dL POC Glucose (mg/dL) 210 H (75-99) mg/dL Calcium (8.4-10.2) mg/dL Phosphorus (2.5-4.5) mg/dL Magnesium (1.6-2.3) mg/dL AST (14-36) U/L ALT (4-34) U/L Alkaline Phosphatase (38-126) U/L Lactate Dehydrogenase (313-618) U/L C-Reactive Protein (<1.0) mg/dL Total Protein (6.3-8.2) g/dL Albumin (3.5-5.0) g/dL Procalcitonin (0.02-0.09) ng/mL Urine Appearance (Clear) Urine Protein (Negative) Urine Blood (Negative) Ur Leukocyte Esterase (Negative) Urine RBC (0-5) /hpf Urine WBC (0-5) /hpf Urine Bacteria (None) /hpf Urine Mucus (None) /hpf Urine Yeast (Budding) (None) /hpf 10/31/20 10/31/20 Range/Units 07:03 08:03 WBC (3.8-10.6) k/uL RBC (3.80-5.40) m/uL Hgb (11.4-16.0) gm/dL Hct (34.0-46.0) % MCH (25.0-35.0) pg MCHC (31.0-37.0) g/dL RDW (11.5-15.5) % Neutrophils # (Manual) (1.3-7.7) k/uL Lymphocytes # (Manual) (1.0-4.8) k/uL Metamyelocytes # (Man) (0) k/uL Myelocytes # (Manual) (0) k/uL Nucleated RBCs (0-0) /100 WBC D-Dimer (<0.60) mg/L FEU ABG pH (7.35-7.45) ABG pCO2 (35-45) mmHg ABG pO2 (83-108) mmHg ABG HCO3 (21-25) mmol/L ABG Total CO2 (19-24) mmol/L ABG O2 Saturation (94-97) % Potassium (3.5-5.1) mmol/L Carbon Dioxide (22-30) mmol/L BUN (7-17) mg/dL Creatinine (0.52-1.04) mg/dL Glucose (74-99) mg/dL POC Glucose (mg/dL) 172 H 149 H (75-99) mg/dL Calcium (8.4-10.2) mg/dL Phosphorus (2.5-4.5) mg/dL Magnesium (1.6-2.3) mg/dL AST (14-36) U/L ALT (4-34) U/L Alkaline Phosphatase (38-126) U/L Lactate Dehydrogenase (313-618) U/L C-Reactive Protein (<1.0) mg/dL Total Protein (6.3-8.2) g/dL Albumin (3.5-5.0) g/dL Procalcitonin (0.02-0.09) ng/mL Urine Appearance (Clear) Urine Protein (Negative) Urine Blood (Negative) Ur Leukocyte Esterase (Negative) Urine RBC (0-5) /hpf Urine WBC (0-5) /hpf Urine Bacteria (None) /hpf Urine Mucus (None) /hpf Urine Yeast (Budding) (None) /hpf Assessment and Plan Plan: 1 ARDS secondary to acute COVID-19 related pneumonia with diffuse breath and pulmonary infiltrates and the patient has coarse crackles in the mid and lower lung phelps bilaterally. The patient was treated with steroids. The patient also received Tocilizumab 800 mg IV on 10/27/2020. Since intubation on 10/29/2020, the patient has been doing poorly. She is in ARDS with multisystem organ failure. The patient is currently being prone on a daily basis. This morning, she is in a prone body position. Peak and static pressures are quite elevated. He was still undergoing permissive hypercapnia. The patient has significant respiratory acidosis which is being done to allow the patient oxygenates and ventilating with low tidal volume ventilation and a high PEEP system. Her current the present 20 and her tidal volume is at 300. Meanwhile, she is receiving bicarb on and off to counteract her acidosis. Unfortunately the potassium periodically is common up specially with underlying acute kidney injury. 2 acute kidney injury with oligoria and significant electrolyte disturbance with elevation and the phosphorus and the potassium. The patient remains having low urine output. Creatinine is up to 3.28 and the patient is not producing adequate urine output.. 2 History of prior GI bleed, secondary to duodenal AV malformation. There has been a drop in hemoglobin down to 7.3. Nevertheless, there is no signs of any GI bleeding. The patient was kept on Lovenox at a dose of 40 mg every 12 hours 3 chronic diastolic heart failure 4 COPD, with chronic chronic hypoxic and hypercapnic respiratory failure the patient is demented on oxygen at 4 L and she has home O2. 5 Morbid obesity. 6 History of diabetes mellitus do not utilize any long-acting insulin and we will going to use only insulin drip and she may become hypoglycemic while going on a long-acting insulin. If needed, we will stop the insulin drip also and proceed with size. Coverage only. 7 shock liver as part of a multisystem organ failure 8 Shock/ hypotension and the patient is currently on pressors for hemodynamic support 9 Chronic hypoxemic respiratory failure, on chronic nocturnal BiPAP therapy. 10 Diabetic neuropathy. 11 Valvular heart disease/aortic stenosis. 12 Obstructive sleep apnea syndrome. Maintained on CPAP on outpatient basis 13 History of hypothyroidism. 14 Previous history of heavy tobacco use. 15 History of depression. 16 chronic lower extremity edema and the patient is taking Lasix 60 mg twice a day , currently off diuretics and the patient was taken off diuretics yesterday. 17 leukocytosis Plan Keep the patient prone for a total of 16 hours and put her back in a supine body position X-ray and blood gases was noted Continue IV Solu-Medrol Continue Lovenox 40 mg subcu twice a day Tocilizumab 800 mg IV piggybag was administered on 10/27/2020 monitor the serum bicarbonate which should be in the order of 38-40 Monitor inflammatory markers Discontinue the water flushes and switch the patient is IV fluids to half-normal saline at the rate of 100 mL an hour Monitor renal function and urine output. Monitor electrolytes including the potassium level. She would likely need dialysis and the family will be informed IV cefepime 1 g every 12 hours as an empiric antibiotic coverage Another echocardiogram to evaluate her LV function specially with her underlying new onset hypotension monitor liver function tests Recheck potassium at noontime Check coagulation profile at noontime Lasix 80 mg IV every 12 hours Discontinue Levemir and use only insulin drip for blood sugar control Condition is extremely critical Evaluation was on a more than 30 minutes. Time with Patient: Greater than 30
[2020-10-31] MEDS ORDERED: FUROSEMIDE 10 MG/ML 10 ML VIAL IV SCH (09:15)
[2020-10-31] MEDS ORDERED: SODIUM CHLORIDE 0.45% 1,000 ML IV SCH (09:15)
[2020-10-31 09:32] LABS: Glucose,Whole Blood 144 mg/dL (75-99)
[2020-10-31 10:10] LABS: Glucose,Whole Blood 148 mg/dL (75-99)
[2020-10-31 10:21] VITALS: BMI 40.4
[2020-10-31] MEDS: CEFEPIME 1 GM in SODIUM CHLORIDE 0.9% 50 ML IVPB SCH (10:29)
[2020-10-31 11:16] LABS: Glucose,Whole Blood 147 mg/dL (75-99)
[2020-10-31 11:24] VITALS: TEMP 99.4
[2020-10-31] MEDS ORDERED: NOREPINEPHRINE 32 MG in SODIUM CHLORIDE 0.9% 218 ML IV SCH (11:30)
[2020-10-31 12:06] LABS: Glucose,Whole Blood 144 mg/dL (75-99)
--- NOTE | 2020-10-31 12:40 | P.PN ---
Subjective Progress Note Date: 10/31/20 HISTORY OF PRESENT ILLNESS This is a 65-year-old female patient of Dr. Deras with past medical history significant for heart failure, COPD, chronic hypoxic respiratory failure on home O2 at 2 L nasal cannula and obstructive sleep apnea on BiPAP support at bedtime, diabetes mellitus type 2 with diabetic neuropathy, chronic diastolic heart failure, valvular heart disease, hypertension, hypothyroidism, GI bleed with anemia. Patient has had multiple admissions and multiple endoscopies for GIB and anemia. 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 The bleeding seems to be stable since that time. They, patient presented to the hospital due to chest pain in the midsternal area across her chest seems to be worse after she eats it was hurting after she had breakfast this morning. She complains of shortness of breath with exertion that is worse than the last time she was admitted. She states her stools have been normal. She does complain of abdominal distention and fullness after eating. Patient presented to the [facility] emergency center for evaluation. Patient was found to be afebrile, heart rate 71, blood pressure 140/61, pulse ox 100% on oxygen. WBC 14.8, hemoglobin 8.2 which is stable for this patient. Platelet count is 310. Sodium 138, potassium 4.2, chloride 97, CO2 35, BUN 39 and creatinine 1.34 which is also patient's baseline. Blood sugar 207. D-dimer 0.89. Alkaline phosphatase 160. Troponin negative. Pro- BNP 2570. Lactic acid 1.0. Coronavirus PCR not detected. EKG sinus rhythm with nonspecific ST-T wave changes. Chest x-ray reveals vascular and interstitial markings prominent in the mid to lower lungs bilaterally similar to previous. Consider heart failure versus interstitial infiltrate. CAT scan of the abdomen and pelvis without contrast revealed hepatomegaly and 19.6 cm. Correlate with LFTs and risk factors for underlying hepatocellular disease. 1.3 cm right common iliac chain lymph node is enlarged. Left inguinal femoral chain lymph nodes are borderline enlarged. Findings probably reactive postinflammatory. 1.1 cm indeterminate right adrenal nodule. Moderate stool burden and generalized colonic diverticulosis. Tiny hiatal hernia. Consult was admitted for cardiology and patient has been seen by Dr. Yang for progressive dyspnea secondary to combination of COPD and element of heart failure with preserved systolic function. Plan to continue IV diuretics for 24 hours. 10/07: She has been afebrile, heart rate 86, blood pressure 101/46, pulse ox 90% on 4 L nasal cannula. WBC 11, hemoglobin 7.9, platelet count 319. Sodium 138, potassium 4.3, chloride 95, CO2 37, BUN 31 and creatinine 1.02. Blood sugars have been running 185 up to 405 at its 4 PM yesterday. Patient missed her morning dose of Levemir yesterday. Patient underwent gastric emptying study which was negative for gastroparesis. Patient is continued on IV Lasix at 40 mg every 12 hours. 10/08: Patient is afebrile, heart rate 75, blood pressure 146/57, pulse ox 92% on 3 L nasal cannula. Repeat blood work reveals sodium 138, potassium 4.9, chloride 96, CO2 37, BUN 38 creatinine 1.13. Blood sugars have been running between 211 and 307. Hemoglobin A1c from July is 5.2. Patient has increased dyspnea today along with a dry cough. She complains of shortness of breath with minimal activity, positive orthopnea. Patient was having issues with constipation and last evening and Senokot was added and she states she has had lots of bowel movements. Cardiology increase Lasix every 8 hours. Also Solu-Medrol added. 10/09: Pulse ox is 94% on 3 L nasal cannula. Patient has been afebrile, heart rate 86, blood pressure 134/63. Patient continues to have shortness of breath and nonproductive cough. She is wheezing. Positive shortness of breath with minimal activity. CTA of the chest has been ordered to rule out PE. Blood sugar at 0 was 604 and also high yesterday afternoon, patient received additional NovoLog on top of scale. Levemir 42 units subcu ordered this morning versus her normal dose of 30. Scheduled NovoLog will be increased to 6 units with meals. Solu-Medrol will be decreased to every 12 hours Repeat blood work reveals sodium 131, potassium 5.9, chloride 89, CO2 38, BUN 41 and creatinine 1.15. 10/10: CTA of the chest was suboptimal study without central pulmonary embolism. Cardiomegaly with mild interstitial and alveolar edema raises concern for heart failure exacerbation. No focal consolidation. She is currently on Lasix 40 mg IV 3 times daily. She continues to have shortness of breath, dyspnea with exertion and lower extremity edema. Lasix will be decreased tomorrow to 60 mg oral twice daily. Blood sugars continue to be in the 400s and 500s. She has received additional NovoLog plus scale. Levemir will be increased to 45 units twice daily and scheduled NovoLog increased to 12 units with meals and at at bedtime. Solu-Medrol was discontinued and patient to start prednisone tomorrow. Pulse ox is 95% on 3 L nasal cannula. She's been afebrile, heart rate 60, blood pressure 131/54. Repeat blood work reveals WBC 15.8, hemoglobin 7.5, platelet count 388. Sodium was 129, potassium 6.1 and one dose of Kayexalate 30 mg ordered, oral prednisone scheduled was discontinued and Aldactone decreased to 12.5 mg daily. Chloride 84, CO2 39, BUN 57 and creatinine 1.41. 10/11 and patient examined bedside. Continue have shortness of breath on exertion. For some mild is continued at 40 IV every 8 hours per cardiology. On evaluation as patient's blood work today potassium is improved to 5.1 chloride is 85 bicarb 42 BUN 64 creatinine 1.34 glucose remains high at 444. Lantus increased to 50 twice a day today and NovoLog increased to 15 units with meals continue and follow with sliding scale. Solu-Medrol switched to prednisone 40 mg daily the patient labs tomorrow 10/12 patient examined at bedside. As shortness of breath on exertion and fatigue. Vitals checked in the room such as patient's systolic over 80s. Vitals as checked at 1 PM suggest blood pressure 125/71 with oxygen saturation of 96% on 8 L (55 years. 16 hold patient's blood pressure medication and Lasix today as patient's blood pressure is on the lower side. ABG to be obtained with a pH of 7.34 pCO2 of 81 pO2 59 and bicarb 43 appears to be secondary to metabolic alkalosis secondary to overdiuresis.. Patient to be placed on BiPAP for COPD exacerbation. Hold Lasix and metolazone. Continue Levemir at the current dose of 50 subcu twice a day with insulin aspart 15 subcu before meals and at bedtime. 10/13: Seen today in follow-up. Her hemoglobin is 7.4 and one dose of Ferrlecit IV will be ordered. Lasix will be resumed today at 60 mg oral. Patient utilizes BiPAP last night. She has gotten encouraged to use this during the day as well. 10/14: Patient noted to have a hacking barking cough. She states it started around 1:00 this morning and has been up all night coughing. She denies having any fever or chills. She denies any nausea or vomiting. A rapid Covid test was ordered which surprisingly came back positive. She has been afebrile, heart rate 91, blood pressure 148/63, pulse ox 94% on 2 L nasal cannula. WBC 9.1, hemoglobin 7.6, platelet count 297. D-dimer 0.83, LDH 669. C-reactive protein 1.6. Sodium 133, potassium 4.6, chloride 90, CO2 34, BUN 49 and creatinine 1.31. She is followed by pulmonary medicine. 10/15: Patient has not been able to sleep since 2 AM. She's experienced increased dyspnea. We have documented a 93% pulse ox on 2 L nasal cannula but this does not reflect patient's condition at the time. Patient had increasing dyspnea along with feeling tired and weak. Patient was transitioned to BiPAP and continues to have dyspnea. She has been utilizing BiPAP at nighttime and somewhat during the day for high CO2 has been improving Patient noted to have wheezing and will be placed back on Solu-Medrol 60 mg IV every 6 hours. We are also increasing Levemir and scheduled NovoLog to cover for hyperglycemia. She will be transferred to the cardiac stepdown unit and pulmonary medicine to be notified of patient's condition. Patient has been afebrile, heart rate 93, blood pressure 113/63, pulse ox 97% on 30% BiPAP. Repeat inflammatory markers ordered for tomorrow. 10/16 patient examined bedside continues to complain of fatigue, headache, body aches, sores in the mouth. Vitals obtained suggested temp of 97.6 pulse 87 respiratory rate 20 blood pressure 140/62 oxygen saturation 94% on 3 L. Headache not resolve with Tylenol. We will add morphine 2 mg IV every 6 hours. Nystatin added to help with oral thrush. PTOT consulted for generalized weakness and debility. No labs to evaluate. Repeat labs tomorrow 10/17 patient examined bedside complains of substernal chest pain on coughing which is improved with breathing treatment. EKG obtained showed normal sinus rhythm with supraventricular complexes. No change compared to previous EKG. Troponin 2 ordered. Tessalon Perles added for cough. Patient is on Mucinex and guaifenesin codeine syrup for cough. Patient does sound congested and will switch patient's inhaler from Flovent to Symbicort. Vitals reviewed patient is afebrile pulse of 111 respiratory rate 20 blood pressure 119/60, oxygen saturation 94% on 3 L. No morning labs to review. Patient's blood sugar continues to be elevated. We will increase patient's Lantus to 70 units twice a day with mealtime insulin. Neck supple Medrol reduced to 40 every 8. No plan for him to have severe or Tocilizumab per pulmonary. Repeat labs ordered chest x-ray ordered. Patient likely discharge on Tuesday for possible oxygen needs and would need to be discharged home on oxygen. 10/18: Patient was examined at the bedside she is found sitting up in the chair currently on 3 L of O2 via nasal cannula. Patient states that she is breathing much better. She is utilizing a BiPAP machine at night for sleeping. She does have a BiPAP and CPAP machine at home. Patient states that the CPAP machine is not on enough to help with her shortness of breath at night. Patient remains afebrile heart rate 74, respirations 22, blood pressure 155/72, O2 saturation is 91% on 3 L of nasal O2 which is baseline for the patient. We will repeat CBC in the morning. 10/19: Patient was examined at the bedside she is found sitting up in a chair. Patient is currently on 3 L of O2 via nasal cannula pulse ox 94% which is normal for the patient. Patient did have a difficult night last night with increased shortness of breath she was unable to to sleep. She did spend the majority of the night sitting up in the chair. Patient is concerned about her cough and how fatigued she has after coughing. Patient has increased anxiety due to her diagnosis of COVID-19. A lengthy discussion was had regarding the oxygen needs and her long disease related to COVID-19. Questions were answered. It was discussed in length with patient to possibly go to subacute rehab facility. P atient remains afebrile, heart rate 77, respirations 21 and nonlabored with a cough. Pressure 137/75. 10/20: Patient continued to have significant hypoxia, persistent cough, worsening symptoms require multi hours on the BiPAP on daily basis. The patient about subacute rehab consult delinquency prevention social worker patient will be started PTOT if her clinical component is better by Tuesday hopefully be able to send patient to senior care rehab otherwise continue current management and still be aggressive with her COPD and anemia. 10/21: Patient evaluated this morning, sitting up in the bedside chair. Patient has complaints of worsening shortness of breath, she was noted to be hypoxic 75% on 5 L. She was changed to high flow and oxygen did come up to 90%. Will obtain CTA to rule out PE, Acetazolamide 250 mg twice a day was also added. Will also increase her Solu-Medrol to 60 mg every 8 hours. 10/22: Patient has been afebrile, heart rate 91, blood pressure 135/73, pulse ox 91% on high flow nasal cannula 10 L. Patient was on BiPAP briefly last evening. Blood sugars are running high this morning was 100 but otherwise last evening and yesterday afternoon in the 300s up to 461. CTA of the chest shows no evidence of pulmonary embolism. Scattered airspace and interstitial infiltrates throughout both lung phelps. Diamox 250 mg twice daily was started. Patient is currently on Solu-Medrol 60 mg IV every 8 hours. Patient is seen today sitting up in a recliner. Patient utilized BiPAP during the night. She has been working with therapies. Patient had a pulse ox of 90% at rest at 10 L nasal cannula. She stood for 1 minute and pulse ox dropped to 75%. It took patient's 8 minutes to recover to 85% pulse ox. She is complaining of headache and she does have Fioricet and Tylenol 3 available. Patient's nurses been updated the patient is complaining of headache. Family was updated regarding patient's condition yesterday over the phone. 10/23: Patient continues to have significant shortness of breath. She is currently on nonrebreather and nasal cannula 15 L high flow nasal cannula with pulse ox running between 86-100%. Attempt was made to take her off nonrebreather and she dropped down to 80. Patient continues to have cough and significant shortness of breath. All blood sugar remains elevated despite high- dose of insulins. Additional i short acting insulin ordered for this morning. Levemir will be increased to 75 units twice daily. Discussed CODE STATUS with the patient and she wishes to be full code and be intubated. She is unable to make decisions she states that her and daughter can make decisions together. Prognosis is guarded. 10/24: Patient has been afebrile, heart rate 83, blood pressure 146/67, pulse ox 82-99% on HF nasal cannula and intermittent use of NRB. Patient appears to be comfortable at rest in recliner. She appears to be slightly improved from yesterday. Repeat blood work reveals d-dimer of 1.36. Blood sugars are much lower today at breakfast 72 and last evening 111. Levemir to be given this morning and hold short acting, recheck CBG and 2 hours and use scale. Repeat at 2 hours was 299 and patient covered with scale. Repeat chest x-ray reveals chronic changes without acute pulmonary disease. Xanax was increased frequency to qid. 10/25: Patient's hospital sitting up in chair in no acute distress currently on a nonrebreather that is intermittent. She is also on high flow nasal O2. Patient appears to be comfortable. Patient states that sure breathing has improved since yesterday. The only time she feels short of breath is after she has been coughing. She remains afebrile, heart rate 93, respirations 28, blood pressure 144/62 with a pulse ox of 92% on 15 L nonrebreather 10/26: She is found sitting up in a chair with BiPAP on. Patient states that she did sleep better last night however she is having some difficulty in breathing today. She is in moderate distress. She is complaining of a headache which has been treated with Fioricet however we will change to Toradol for maximum of 6 doses. We will also told in to help with sleeping. One dose of tocilizumab will be given today. Patient did not receive any remdesivir. Patient's blood sugar this morning is 25. We will decrease her dose of insulin before bed. We'll discuss CODE STATUS with daughter when seen on Tuesday. 10/27: She was seen today on BiPAP 100% with pulse ox of 91%. Her pulse ox drop ped down to 86 when she tries to take pills. Patient is much more fatigued and weaker today. She has been afebrile, heart rate 90, respiratory rate 22, blood pressure 132/56. Blood sugars running between 84 and 101. Her scheduled NovoLog has been held in the last 3 doses and this will be discontinued and long acting insulin will be decreased from 75 units twice daily to 60 units twice daily. Patient is maintained on Solu-Medrol 60 mg IV every 8 hours, Lasix is currently oral at 60 mg twice daily. One dose of Tocilizumab has been ordered today by pulmonary medicine. 10/28: Patient has been on BiPAP through the night and this morning. Pulse ox is anywhere from 81-92% on 100% FiO2. She has been afebrile, heart rate 85, blood pressure 146/77. Blood sugars are running between 64 and 118. She did not receive Levemir last night or this morning and this will be discontinued for now and patient continued on NovoLog scale only. She has been continued on Solu- Medrol 60 mg IV every 8 hours. Repeat blood work reveals WBC 15.3, hemoglobin 9.9, platelet count 120. Sodium 144, potassium 5.3, chloride 101, CO2 40, BUN 74 and creatinine 1.15. Blood sugar 68. Total bilirubin 0.7, AST 70, ALT 46, alkaline phosphatase 162, LDH 2622. PICC line will be ordered and patient started on TPN. Consult with dietitian added. 10/29: She was transferred into the intensive care unit yesterday afternoon due to worsening respiratory status and decompensation. She remains on BiPAP, triple- lumen catheter was placed in the right IJ. Pulse ox is 78% on 100% FiO2 on BiPAP. She's been afebrile, heart rate 110, blood pressure 136/58, respiratory rate 22. Repeat chest x-ray reveals diffuse infiltrates seen throughout both lung phelps unchanged. Repeat blood work reveals WBC 15, hemoglobin 7.5, platelet count 197. Sodium 148, potassium 4.5, chloride 107, CO2 38, BUN 73 creatinine 1.26. Blood sugar 122. Phosphorus 4.3, magnesium 3.2, LDH 2040, C- reactive protein 2.9. Capillary blood glucose running between 132 and 174. Patient states that she is feeling well short of breath today. Face time was performed with Dr. Denny and patient's daughter and the patient. 10/30: Yesterday afternoon, patient oxygenation continued to worsen and patient was intubated and placed on mechanical ventilation, tidal volume 300, FiO2 100% and PEEP of 20. Last evening, patient was status post 2 L of IV fluids and was started on norepinephrine. She is also on Nimbex, propofol. Consult with nephrology was added for acute kidney injury. Patient is currently seeing pronating in the ICU. Patient is to be started on TPN today. Patient has been afebrile, heart rate 96, respiratory rate 38, blood pressure 110/40, pulse ox 97%. Repeat blood work reveals WBC 38, hemoglobin 7.4, platelet count 226. Sodium 150, potassium 5.4, chloride 104, CO2 38, BUN 89 and creatinine 2.61. Blood sugars in the 200s. Phosphorus 10.1. Magnesium 3.3. LDH 9093. C- reactive protein 2.3. IV fluids have been changed to D5W. Renal ultrasound ruled out hydronephrosis. 10/31: Patient remains intubated and on mechanical ventilation with tidal volume 300, FiO2 100% and PEEP of 20. She has been afebrile, heart rate 112, respiratory rate but pressure 112/45, pulse ox 88%. teletypesetter monitor is sinus rhythm. Prone positioning continued. Repeat blood work reveals WBC 38.8, hemoglobin 7.3, platelet count 190. D-dimer 14.3. Sodium 140, potassium 6.3, chloride 98, CO2 37, BUN 111 and creatinine 3.28. Blood sugars are running 148- 179. Phosphorus 10.7. Calcium 7.2. Magnesium 3.1. Total bilirubin 0.9, AST 1000 875, ALT 2714, alkaline phosphatase 217. LDH 6328. C-reactive protein 1.4. Patient nurse to discuss a second dose of Tocilizumab with Dr. Gomes. Repeat inflammatory markers ordered for tomorrow. Levemir was discontinued and patient is on NovoLog only. Patient is on tube feedings while supine. Patient is currently on propofol, Nimbex, norepinephrine, insulin drip. Ample sodium bicarbonate, dextrose, regular insulin ordered this morning. She is status post IV Lasix currently at 80 mg every 12 hours. Patient's family was contacted over the phone and updated regarding worsening of her renal function and liver function and would like patient to start dialysis and continue aggressive treatment. REVIEW OF SYSTEMS Unable to obtain due to intubation. PHYSICAL EXAMINATION Gen: This is a 65-year-old female. She is in ICU bed, proned, and appears to be comfortable and in no acute distress. Patient is intubated and on mechanical ventilation. HEENT: Head is atraumatic, normocephalic. Pupils equal, round. Sclerae is anicteric. Conjunctiva pale. NECK: Supple. No JVD. No lymphadenopathy. No thyromegaly. LUNGS: Bilateral wheezing. Mild intercostal retractions. Mild accessory muscle usage. HEART: Regular rate and rhythm. Systolic murmur. ABDOMEN: Soft. Bowel sounds are present. No masses. No tenderness. EXTREMITIES: No pedal edema. No calf tenderness. Dorsalis pedis +2 bilaterally. NEUROLOGICAL: Patient sedated. ASSESSMENT AND PLAN 1. Acute on chronic hypoxic respiratory failure with progressive dyspnea secondary to COPD and acute on chronic diastolic heart failure as well as Covid 19 pneumonia, POA. Status post intubation and mechanical ventilation. Continue Solu-Medrol 60 mg IV every 8 hours. Patient is status post 1 dose of Tocilizu mab. 2. COPD with exacerbation. Continue IV Solu-Medrol 3. Acute kidney injury with oliguria. Consult with nephrology has been added. Renal ultrasound ruled out hydronephrosis. Family would like to pursue hemodialysis. 4. Electrolyte abnormalities with hyperkalemia, hypernatremia and hyper phosphatemia. Replacements and corrections have been made. Nephrology is following. 5. Septic shock requiring vasopressors. Patient is currently on norepinephrine. 6. Upper abdominal/lower chest pain with abdominal bloating and early satiety, ruled out gastroparesis. Most likely secondary to constipation and fecal burden. Continue Senokot 2 daily at 1800. 7. Transaminitis secondary to overwhelming sepsis and sciatica and release syndrome, hypotension. 8. Diabetes mellitus type 2 with diabetic neuropathy uncontrolled with hyperglycemia secondary to steroids. Continue insulin drip. Continue Januvia 100 mg daily. Hemoglobin A1c in July was 5.2. 9. Debility and worsening condition: The patient advance COPD and recurrent GI bleed along with COVID-19 patient is not doing well physically. 10. Moderate protein calorie malnutrition due to lack of oral intake due to oxygen needs and severe illness. PICC line ordered and dietitian consult for TPN. 11. Hypertension. 12. Hyperlipidemia. Continue Lipitor 40 mg daily. 13. Obstructive sleep apnea. 14. Hypothyroidism. Continue levothyroxine 125 g daily. 15. Restless leg syndrome. Continue Requip 2 mg twice daily. 16. Recurrent depression. Continue Prozac 20 mg daily. 17. Oral thrush. Completed course of Diflucan and nystatin 18. Chronic kidney disease stage III. 19. Hyperkalemia, resolved status post Kayexalate 1. 20. Metabolic alkalosis secondary to overdiuresis. 21. Situational anxiety. Continue xanax 0.25 mg qid. 22. 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 Continue Protonix 40 mg oral twice daily. Status post Ferrlecit infusion 1 on 10/13. 23. GI prophylaxis. Protonix twice daily. 24. DVT prophylaxis. Lovenox 40 mg subcu twice daily. CODE STATUS: Full code Prognosis is poor. Impression and plan of care have been directed as dictated by the signing physician. Clarice Colón nurse practitioner acting as scribe for signing physician. Objective - Vital Signs Vital signs: Vital Signs Temp 98.4 F 10/31/20 04:00 Pulse 115 H 10/31/20 07:00 Resp 38 H 10/31/20 07:00 BP 99/42 10/31/20 07:00 Pulse Ox 83 L 10/31/20 07:00 Intake & Output 10/30/20 10/31/20 10/31/20 18:59 06:59 18:59 Intake Total 2346.488 2564.534 428.942 Output Total 115 80 5 Balance 2231.488 2484.534 423.942 Weight 111.3 kg 94 kg 94 kg Intake: IV 333 1186 103 Cefepime 1 gm In Sodium 50 Chloride 0.9% 50 ml @ 12. 5 mls/hr IVPB Q12HR SARATH Rx#:[id number] Dextrose 5% in Water 1, 1100 100 000 ml @ 100 mls/hr IV . Q10H SARATH Rx#:[id number] Dextrose 5% in Water 1, 300 000 ml @ 150 mls/hr IV . Q7H40M [facility]ATH with Sodium Bicarb (1 Meq/ml) 150 ml Rx#:[id number] Pressure Bag 33 36 3 Intake, IV Titration 1633.488 748.534 325.942 Amount Cefepime 1 gm In Sodium 50 Chloride 0.9% 50 ml @ 12. 5 mls/hr IVPB Q12HR SARATH Rx#:[id number] Cefepime 2 gm In Sodium 100 Chloride 0.9% 100 ml @ 25 mls/hr IVPB Q12HR [facility] Rx #:[id number] Cisatracurium 200 mg In 53.424 60.576 Sodium Chloride 0.9% 180 ml @ 1 MCG/KG/MIN 6.678 mls/hr IV .Q24H [facility] Rx#: [id number] Dextrose 5% in Water 1, 1000 100 000 ml @ 100 mls/hr IV . Q10H [facility] Rx#:[id number] Insulin Regular 100 unit 54.540 28.263 7.222 In Sodium Chloride 0.9% 100 ml @ Per Protocol IV .Q0M [facility] Rx#:[id number] Norepinephrine 8 mg In 175.524 411.889 231.016 Sodium Chloride 0.9% 250 ml @ 0.05 MCG/KG/MIN 10. 768 mls/hr IV .[id number] [facility] Rx#:[id number] propofoL 1,000 mg In 200 147.806 87.704 Empty Bag 1 bag @ Titrate IV .Q0M [facility] Rx#: [id number] Tube Feeding 100 230 0 Other 280 400 0 Output: Urine 115 80 5 Other: Voiding Method Indwelling Catheter Indwelling Catheter ABP, PAP, CO, CI - Last Documented Arterial Blood Pressure 95/49 - Labs CBC & Chem 7: 10/31/20 03:55 10/31/20 07:00 Labs: Abnormal Lab Results - Last 24 Hours (Table) 10/30/20 10/30/20 10/30/20 Range/Units 05:00 11:26 14:12 WBC (3.8-10.6) k/uL RBC (3.80-5.40) m/uL Hgb (11.4-16.0) gm/dL Hct (34.0-46.0) % MCH (25.0-35.0) pg MCHC (31.0-37.0) g/dL RDW (11.5-15.5) % Neutrophils # (Manual) (1.3-7.7) k/uL Lymphocytes # (Manual) (1.0-4.8) k/uL Metamyelocytes # (Man) (0) k/uL Myelocytes # (Manual) (0) k/uL Nucleated RBCs (0-0) /100 WBC D-Dimer (<0.60) mg/L FEU ABG pH (7.35-7.45) ABG pCO2 (35-45) mmHg ABG pO2 (83-108) mmHg ABG HCO3 (21-25) mmol/L ABG Total CO2 (19-24) mmol/L ABG O2 Saturation (94-97) % Potassium (3.5-5.1) mmol/L Carbon Dioxide (22-30) mmol/L BUN (7-17) mg/dL Creatinine (0.52-1.04) mg/dL Glucose (74-99) mg/dL POC Glucose (mg/dL) 310 H 348 H (75-99) mg/dL Calcium (8.4-10.2) mg/dL Phosphorus (2.5-4.5) mg/dL Magnesium (1.6-2.3) mg/dL AST (14-36) U/L ALT (4-34) U/L Alkaline Phosphatase (38-126) U/L Lactate Dehydrogenase (313-618) U/L C-Reactive Protein (<1.0) mg/dL Total Protein (6.3-8.2) g/dL Albumin (3.5-5.0) g/dL Procalcitonin 0.59 H (0.02-0.09) ng/mL Urine Appearance (Clear) Urine Protein (Negative) Urine Blood (Negative) Ur Leukocyte Esterase (Negative) Urine RBC (0-5) /hpf Urine WBC (0-5) /hpf Urine Bacteria (None) /hpf Urine Mucus (None) /hpf Urine Yeast (Budding) (None) /hpf 10/30/20 10/30/20 10/30/20 Range/Units 15:50 15:52 17:05 WBC (3.8-10.6) k/uL RBC (3.80-5.40) m/uL Hgb (11.4-16.0) gm/dL Hct (34.0-46.0) % MCH (25.0-35.0) pg MCHC (31.0-37.0) g/dL RDW (11.5-15.5) % Neutrophils # (Manual) (1.3-7.7) k/uL Lymphocytes # (Manual) (1.0-4.8) k/uL Metamyelocytes # (Man) (0) k/uL Myelocytes # (Manual) (0) k/uL Nucleated RBCs (0-0) /100 WBC D-Dimer (<0.60) mg/L FEU ABG pH (7.35-7.45) ABG pCO2 (35-45) mmHg ABG pO2 (83-108) mmHg ABG HCO3 (21-25) mmol/L ABG Total CO2 (19-24) mmol/L ABG O2 Saturation (94-97) % Potassium (3.5-5.1) mmol/L Carbon Dioxide (22-30) mmol/L BUN (7-17) mg/dL Creatinine (0.52-1.04) mg/dL Glucose (74-99) mg/dL POC Glucose (mg/dL) 317 H 231 H (75-99) mg/dL Calcium (8.4-10.2) mg/dL Phosphorus (2.5-4.5) mg/dL Magnesium (1.6-2.3) mg/dL AST (14-36) U/L ALT (4-34) U/L Alkaline Phosphatase (38-126) U/L Lactate Dehydrogenase (313-618) U/L C-Reactive Protein (<1.0) mg/dL Total Protein (6.3-8.2) g/dL Albumin (3.5-5.0) g/dL Procalcitonin (0.02-0.09) ng/mL Urine Appearance Cloudy H (Clear) Urine Protein 1+ H (Negative) Urine Blood Moderate H (Negative) Ur Leukocyte Esterase Large H (Negative) Urine RBC 19 H (0-5) /hpf Urine WBC 32 H (0-5) /hpf Urine Bacteria Many H (None) /hpf Urine Mucus Occasional H (None) /hpf Urine Yeast (Budding) Few H (None) /hpf 10/30/20 10/30/20 10/30/20 Range/Units 17:58 18:57 22:08 WBC (3.8-10.6) k/uL RBC (3.80-5.40) m/uL Hgb (11.4-16.0) gm/dL Hct (34.0-46.0) % MCH (25.0-35.0) pg MCHC (31.0-37.0) g/dL RDW (11.5-15.5) % Neutrophils # (Manual) (1.3-7.7) k/uL Lymphocytes # (Manual) (1.0-4.8) k/uL Metamyelocytes # (Man) (0) k/uL Myelocytes # (Manual) (0) k/uL Nucleated RBCs (0-0) /100 WBC D-Dimer (<0.60) mg/L FEU ABG pH (7.35-7.45) ABG pCO2 (35-45) mmHg ABG pO2 (83-108) mmHg ABG HCO3 (21-25) mmol/L ABG Total CO2 (19-24) mmol/L ABG O2 Saturation (94-97) % Potassium (3.5-5.1) mmol/L Carbon Dioxide (22-30) mmol/L BUN (7-17) mg/dL Creatinine (0.52-1.04) mg/dL Glucose (74-99) mg/dL POC Glucose (mg/dL) 214 H 175 H 155 H (75-99) mg/dL Calcium (8.4-10.2) mg/dL Phosphorus (2.5-4.5) mg/dL Magnesium (1.6-2.3) mg/dL AST (14-36) U/L ALT (4-34) U/L Alkaline Phosphatase (38-126) U/L Lactate Dehydrogenase (313-618) U/L C-Reactive Protein (<1.0) mg/dL Total Protein (6.3-8.2) g/dL Albumin (3.5-5.0) g/dL Procalcitonin (0.02-0.09) ng/mL Urine Appearance (Clear) Urine Protein (Negative) Urine Blood (Negative) Ur Leukocyte Esterase (Negative) Urine RBC (0-5) /hpf Urine WBC (0-5) /hpf Urine Bacteria (None) /hpf Urine Mucus (None) /hpf Urine Yeast (Budding) (None) /hpf 10/30/20 10/31/20 10/31/20 Range/Units 22:56 00:24 00:58 WBC (3.8-10.6) k/uL RBC (3.80-5.40) m/uL Hgb (11.4-16.0) gm/dL Hct (34.0-46.0) % MCH (25.0-35.0) pg MCHC (31.0-37.0) g/dL RDW (11.5-15.5) % Neutrophils # (Manual) (1.3-7.7) k/uL Lymphocytes # (Manual) (1.0-4.8) k/uL Metamyelocytes # (Man) (0) k/uL Myelocytes # (Manual) (0) k/uL Nucleated RBCs (0-0) /100 WBC D-Dimer (<0.60) mg/L FEU ABG pH (7.35-7.45) ABG pCO2 (35-45) mmHg ABG pO2 (83-108) mmHg ABG HCO3 (21-25) mmol/L ABG Total CO2 (19-24) mmol/L ABG O2 Saturation (94-97) % Potassium (3.5-5.1) mmol/L Carbon Dioxide (22-30) mmol/L BUN (7-17) mg/dL Creatinine (0.52-1.04) mg/dL Glucose (74-99) mg/dL POC Glucose (mg/dL) 148 H 143 H 148 H (75-99) mg/dL Calcium (8.4-10.2) mg/dL Phosphorus (2.5-4.5) mg/dL Magnesium (1.6-2.3) mg/dL AST (14-36) U/L ALT (4-34) U/L Alkaline Phosphatase (38-126) U/L Lactate Dehydrogenase (313-618) U/L C-Reactive Protein (<1.0) mg/dL Total Protein (6.3-8.2) g/dL Albumin (3.5-5.0) g/dL Procalcitonin (0.02-0.09) ng/mL Urine Appearance (Clear) Urine Protein (Negative) Urine Blood (Negative) Ur Leukocyte Esterase (Negative) Urine RBC (0-5) /hpf Urine WBC (0-5) /hpf Urine Bacteria (None) /hpf Urine Mucus (None) /hpf Urine Yeast (Budding) (None) /hpf 05/01/1410/31/20 10/31/20 Range/Units 02:16 03:55 03:55 WBC 38.8 H (3.8-10.6) k/uL RBC 3.47 L (3.80-5.40) m/uL Hgb 7.3 L (11.4-16.0) gm/dL Hct 29.9 L (34.0-46.0) % MCH 21.0 L (25.0-35.0) pg MCHC 24.4 L (31.0-37.0) g/dL RDW 19.4 H (11.5-15.5) % Neutrophils # (Manual) 37.60 H (1.3-7.7) k/uL Lymphocytes # (Manual) 0.39 L (1.0-4.8) k/uL Metamyelocytes # (Man) 0.78 H (0) k/uL Myelocytes # (Manual) 0.39 H (0) k/uL Nucleated RBCs 1 H (0-0) /100 WBC D-Dimer 14.30 H (<0.60) mg/L FEU ABG pH (7.35-7.45) ABG pCO2 (35-45) mmHg ABG pO2 (83-108) mmHg ABG HCO3 (21-25) mmol/L ABG Total CO2 (19-24) mmol/L ABG O2 Saturation (94-97) % Potassium (3.5-5.1) mmol/L Carbon Dioxide (22-30) mmol/L BUN (7-17) mg/dL Creatinine (0.52-1.04) mg/dL Glucose (74-99) mg/dL POC Glucose (mg/dL) 142 H (75-99) mg/dL Calcium (8.4-10.2) mg/dL Phosphorus (2.5-4.5) mg/dL Magnesium (1.6-2.3) mg/dL AST (14-36) U/L ALT (4-34) U/L Alkaline Phosphatase (38-126) U/L Lactate Dehydrogenase (313-618) U/L C-Reactive Protein (<1.0) mg/dL Total Protein (6.3-8.2) g/dL Albumin (3.5-5.0) g/dL Procalcitonin (0.02-0.09) ng/mL Urine Appearance (Clear) Urine Protein (Negative) Urine Blood (Negative) Ur Leukocyte Esterase (Negative) Urine RBC (0-5) /hpf Urine WBC (0-5) /hpf Urine Bacteria (None) /hpf Urine Mucus (None) /hpf Urine Yeast (Budding) (None) /hpf 10/31/20 10/31/20 10/31/20 Range/Units 03:55 03:59 04:51 WBC (3.8-10.6) k/uL RBC (3.80-5.40) m/uL Hgb (11.4-16.0) gm/dL Hct (34.0-46.0) % MCH (25.0-35.0) pg MCHC (31.0-37.0) g/dL RDW (11.5-15.5) % Neutrophils # (Manual) (1.3-7.7) k/uL Lymphocytes # (Manual) (1.0-4.8) k/uL Metamyelocytes # (Man) (0) k/uL Myelocytes # (Manual) (0) k/uL Nucleated RBCs (0-0) /100 WBC D-Dimer (<0.60) mg/L FEU ABG pH (7.35-7.45) ABG pCO2 (35-45) mmHg ABG pO2 (83-108) mmHg ABG HCO3 (21-25) mmol/L ABG Total CO2 (19-24) mmol/L ABG O2 Saturation (94-97) % Potassium 6.3 H* (3.5-5.1) mmol/L Carbon Dioxide 37 H (22-30) mmol/L BUN 111 H* (7-17) mg/dL Creatinine 3.28 H (0.52-1.04) mg/dL Glucose 164 H (74-99) mg/dL POC Glucose (mg/dL) 179 H 175 H (75-99) mg/dL Calcium 7.2 L (8.4-10.2) mg/dL Phosphorus 10.7 H* (2.5-4.5) mg/dL Magnesium 3.1 H (1.6-2.3) mg/dL AST 1875 H (14-36) U/L ALT 2714 H (4-34) U/L Alkaline Phosphatase 217 H (38-126) U/L Lactate Dehydrogenase 6328 H (313-618) U/L C-Reactive Protein 1.4 H (<1.0) mg/dL Total Protein 5.7 L (6.3-8.2) g/dL Albumin 3.0 L (3.5-5.0) g/dL Procalcitonin (0.02-0.09) ng/mL Urine Appearance (Clear) Urine Protein (Negative) Urine Blood (Negative) Ur Leukocyte Esterase (Negative) Urine RBC (0-5) /hpf Urine WBC (0-5) /hpf Urine Bacteria (None) /hpf Urine Mucus (None) /hpf Urine Yeast (Budding) (None) /hpf 10/31/20 10/31/20 10/31/20 Range/Units 05:02 06:11 07:00 WBC (3.8-10.6) k/uL RBC (3.80-5.40) m/uL Hgb (11.4-16.0) gm/dL Hct (34.0-46.0) % MCH (25.0-35.0) pg MCHC (31.0-37.0) g/dL RDW (11.5-15.5) % Neutrophils # (Manual) (1.3-7.7) k/uL Lymphocytes # (Manual) (1.0-4.8) k/uL Metamyelocytes # (Man) (0) k/uL Myelocytes # (Manual) (0) k/uL Nucleated RBCs (0-0) /100 WBC D-Dimer (<0.60) mg/L FEU ABG pH 7.10 L* (7.35-7.45) ABG pCO2 105 H* (35-45) mmHg ABG pO2 64 L (83-108) mmHg ABG HCO3 32 H (21-25) mmol/L ABG Total CO2 36 H (19-24) mmol/L ABG O2 Saturation 86.7 L (94-97) % Potassium 5.5 H (3.5-5.1) mmol/L Carbon Dioxide (22-30) mmol/L BUN (7-17) mg/dL Creatinine (0.52-1.04) mg/dL Glucose (74-99) mg/dL POC Glucose (mg/dL) 210 H (75-99) mg/dL Calcium (8.4-10.2) mg/dL Phosphorus (2.5-4.5) mg/dL Magnesium (1.6-2.3) mg/dL AST (14-36) U/L ALT (4-34) U/L Alkaline Phosphatase (38-126) U/L Lactate Dehydrogenase (313-618) U/L C-Reactive Protein (<1.0) mg/dL Total Protein (6.3-8.2) g/dL Albumin (3.5-5.0) g/dL Procalcitonin (0.02-0.09) ng/mL Urine Appearance (Clear) Urine Protein (Negative) Urine Blood (Negative) Ur Leukocyte Esterase (Negative) Urine RBC (0-5) /hpf Urine WBC (0-5) /hpf Urine Bacteria (None) /hpf Urine Mucus (None) /hpf Urine Yeast (Budding) (None) /hpf 10/31/20 10/31/20 10/31/20 Range/Units 07:03 08:03 09:30 WBC (3.8-10.6) k/uL RBC (3.80-5.40) m/uL Hgb (11.4-16.0) gm/dL Hct (34.0-46.0) % MCH (25.0-35.0) pg MCHC (31.0-37.0) g/dL RDW (11.5-15.5) % Neutrophils # (Manual) (1.3-7.7) k/uL Lymphocytes # (Manual) (1.0-4.8) k/uL Metamyelocytes # (Man) (0) k/uL Myelocytes # (Manual) (0) k/uL Nucleated RBCs (0-0) /100 WBC D-Dimer (<0.60) mg/L FEU ABG pH (7.35-7.45) ABG pCO2 (35-45) mmHg ABG pO2 (83-108) mmHg ABG HCO3 (21-25) mmol/L ABG Total CO2 (19-24) mmol/L ABG O2 Saturation (94-97) % Potassium (3.5-5.1) mmol/L Carbon Dioxide (22-30) mmol/L BUN (7-17) mg/dL Creatinine (0.52-1.04) mg/dL Glucose (74-99) mg/dL POC Glucose (mg/dL) 172 H 149 H 144 H (75-99) mg/dL Calcium (8.4-10.2) mg/dL Phosphorus (2.5-4.5) mg/dL Magnesium (1.6-2.3) mg/dL AST (14-36) U/L ALT (4-34) U/L Alkaline Phosphatase (38-126) U/L Lactate Dehydrogenase (313-618) U/L C-Reactive Protein (<1.0) mg/dL Total Protein (6.3-8.2) g/dL Albumin (3.5-5.0) g/dL Procalcitonin (0.02-0.09) ng/mL Urine Appearance (Clear) Urine Protein (Negative) Urine Blood (Negative) Ur Leukocyte Esterase (Negative) Urine RBC (0-5) /hpf Urine WBC (0-5) /hpf Urine Bacteria (None) /hpf Urine Mucus (None) /hpf Urine Yeast (Budding) (None) /hpf 10/31/20 Range/Units 10:08 WBC (3.8-10.6) k/uL RBC (3.80-5.40) m/uL Hgb (11.4-16.0) gm/dL Hct (34.0-46.0) % MCH (25.0-35.0) pg MCHC (31.0-37.0) g/dL RDW (11.5-15.5) % Neutrophils # (Manual) (1.3-7.7) k/uL Lymphocytes # (Manual) (1.0-4.8) k/uL Metamyelocytes # (Man) (0) k/uL Myelocytes # (Manual) (0) k/uL Nucleated RBCs (0-0) /100 WBC D-Dimer (<0.60) mg/L FEU ABG pH (7.35-7.45) ABG pCO2 (35-45) mmHg ABG pO2 (83-108) mmHg ABG HCO3 (21-25) mmol/L ABG Total CO2 (19-24) mmol/L ABG O2 Saturation (94-97) % Potassium (3.5-5.1) mmol/L Carbon Dioxide (22-30) mmol/L BUN (7-17) mg/dL Creatinine (0.52-1.04) mg/dL Glucose (74-99) mg/dL POC Glucose (mg/dL) 148 H (75-99) mg/dL Calcium (8.4-10.2) mg/dL Phosphorus (2.5-4.5) mg/dL Magnesium (1.6-2.3) mg/dL AST (14-36) U/L ALT (4-34) U/L Alkaline Phosphatase (38-126) U/L Lactate Dehydrogenase (313-618) U/L C-Reactive Protein (<1.0) mg/dL Total Protein (6.3-8.2) g/dL Albumin (3.5-5.0) g/dL Procalcitonin (0.02-0.09) ng/mL Urine Appearance (Clear) Urine Protein (Negative) Urine Blood (Negative) Ur Leukocyte Esterase (Negative) Urine RBC (0-5) /hpf Urine WBC (0-5) /hpf Urine Bacteria (None) /hpf Urine Mucus (None) /hpf Urine Yeast (Budding) (None) /hpf Microbiology - Last 24 Hours (Table) 10/30/20 08:03 Blood Culture - Preliminary Blood No Growth after 24 hours
--- NOTE | 2020-10-31 13:00 | PN ---
PROGRESS NOTE The patient is seen for followup for acute kidney injury. Patient has underlying COVID pneumonia. She remains on the vent. Currently in prone position, O2 sats remain low. Urine output has dropped further and now only about 0-5 mL an hour. Serum potassium was elevated at 6.3 today. The patient's Levophed has increased further to 0.37 mcg/kg. Family was approached regarding her overall general condition and at this time they would like to pursue aggressive therapy and would like to try dialysis. The patient is maintained on pressors. We can try the SLED procedure. However, she may not tolerate it. PHYSICAL EXAMINATION: On examination today, the patient remains on the vent. She is in prone position. Case is discussed with nursing staff. Blood pressure 103/42, heart rate 114 per minute. Patient is tolerating tube feeds. She is not examined. LABS: Labs show sodium of 140, potassium 6.3, chloride 98, CO2 is 37, BUN 111, creatinine 3.28, phosphorus 10.7. ASSESSMENT: 1. Acute kidney injury, acute tubular necrosis, currently oliguric associated with hypotension, underlying COVID infection, currently requiring large dose of pressors. The patient is hyperkalemic now with poor urine output. We can try a renal replacement therapy in the form of SLED procedure. However, patient may not tolerate it. At this time, family would like to continue to try aggressive medical care. 2. Hyperkalemia associated with acute kidney injury and oliguria slightly improved with potassium 5.5. Repeat potassium is pending. 3. Acute hypoxic respiratory failure secondary to COVID pneumonia, currently on the vent. 4. Respiratory acidosis. 5. Chronic diastolic heart failure. 6. Chronic obstructive pulmonary disease. 7. Hyperphosphatemia associated with acute kidney injury. 8. 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 No active gastrointestinal bleeding noted at this time. 9. Shock liver. PLAN: We can try renal replacement therapy in the form of SLED procedure however given significant hypotension patient may not tolerate the procedure. Overall prognosis is guarded. MMODL / IJN: [id number] /
[2020-10-31 14:12] LABS: Glucose,Whole Blood 130 mg/dL (75-99)
[2020-10-31 14:32] VITALS: BP 93/37; PULSE 115
[2020-10-31] MEDS ORDERED: CALCIUM CHLORIDE 100 MG/ML 10 ML SYRINGE ONE (14:52)
[2020-10-31] MEDS ORDERED: DEXTROSE 50% SYRINGE 50 ML IVP ONE ×2 (14:52→15:11)
[2020-10-31] MEDS ORDERED: SODIUM BICARB 8.4% 50 ML SYR (1 MEQ/ML) ONE (14:52)
[2020-10-31] MEDS ORDERED: EPINEPHrine 10 ML SYRINGE (0.1 MG/ML) ONE (14:52)
[2020-10-31 15:01] LABS: Glucose,Whole Blood 109 mg/dL (75-99)
[2020-10-31 15:04] LABS: ABG Base Excess 11.8 mmol/L; ABG Oxygen Saturation 74.9 % (94-97); ABG PH 7.21 (7.35-7.45); ABG TCO2 43 mmol/L (19-24); Allen Test Performed? Yes
[2020-10-31 15:11] LABS: ABG HCO3 40 mmol/L (21-25); ABG PCO2 100 mmHg (35-45); ABG PO2 46 mmHg (83-108)
[2020-10-31 15:32] LABS: Anisocytosis Slight; HCT 22.7 % (34.0-46.0); Hypochromasia Marked; MCV 84.7 fL (80.0-100.0); Mean Platelet Volume 11.5; Microcytosis Slight; Platelet Count 174 k/uL (150-450); RBC 2.68 m/uL (3.80-5.40); RDW 19.9 % (11.5-15.5)
[2020-10-31 15:35] LABS: Magnesium 2.8 mg/dL (1.6-2.3); Phosphorus 8.8 mg/dL (2.5-4.5); Potassium 5.7 mmol/L (3.5-5.1); Total Bilirubin 0.8 mg/dL (0.2-1.3); Total Protein 3.8 g/dL (6.3-8.2)
[2020-10-31 15:36] LABS: HGB 5.9 gm/dL (11.4-16.0)
[2020-10-31 15:56] LABS: Band Neutrophils % 2 %; Lymphocytes # (M) 0.93 k/uL (1.0-4.8); Monocytes # (M) 0.62 k/uL (0-1.0); Neutrophils % (M) 95 %; Nucleated Red Blood Cells 3 /100 WBC (0-0); Total Cells Counted 200; WBC 31.1 k/uL (3.8-10.6)
[2020-10-31 15:57] LABS: Basophilic Stippling Present; Polychromasia Present
[2020-10-31] MEDS ORDERED: MORPHINE SULFATE 2 MG/ML SYRINGE IVP STA (15:58)
[2020-10-31] MEDS ORDERED: DEXTROSE 5% IN WATER 1,000 ML with SODIUM BICARB (1 MEQ/ML) 150 ML IV SCH (16:00)
[2020-10-31 16:05] LABS: D-Dimer 10.44 mg/L FEU (<0.60); INR 1.3 (<1.2); Partial Thromboplastin Time 26.9 sec (22.0-30.0); Prothrombin Time 13.4 sec (9.0-12.0)
--- NOTE | 2020-10-31 16:14 | P.EN ---
CODE BLUE NOTE 1442 Arrived with CPR in progress. Asystole had been on the monitor. Patient received 1 of epi and 1 round CPR with 3 amps of Bicarb and calcium chloride. she had ROSC at 1457 and revieved 1 additional amp of bicarb, 10 of insulin and D50. Dr Gomes at bedside. Dr. Denny updated via perfect and notifed family. Stat Labs revied PaO2 46, K+ 5.7, Hgb 5.9 Patient again with asystole at 1538 and given epi, bicarb, calcium. ROSC at 1545. Additional Bicarb, insulin, glucose given. Daughter at bedside. [place] again at 1553. Daughter stated DNR, Code stopped and pulses were back. 1555. Offered to daughter to administer Morphine for pain, daughter agreed Morphine 2 mg administered. A total of 60 minutes of critical care was spend on this complex patient. DX: COVID, Acute hypoxic respiratory Failure. All Times code was run on vent due to high peep requirements and COVID
[2020-10-31] MEDS ORDERED: CALCIUM CHLORIDE 100 MG/ML 10 ML SYRINGE IVP ONE (16:22)
--- NOTE | 2020-11-07 16:22 | CDI ---
Documentation Clarification Form Date: 11/07/2020 04:13:18 PM From: Mone Diaz RN, CCDS Email: [email or web address] Admit Date: 10/06/2020 02:08:00 AM Patient Name: Sadu Null Visit Number: [id number] Discharge Date: 10/31/2020 06:00:00 PM ATTENTION: The Clinical Documentation Specialists (CDI) and [facility] Coding Staff appreciate your assistance in clarifying documentation. Please respond to the clarification below the line at the bottom and electronically sign. The CDI & [facility] Coding staff will review the response and follow-up if needed. Please note: Queries are made part of the Legal Health Record. If you have any questions, please contact the author of this message via ITS. Dr. Juana Denny Chronic hypoxic respiratory failure with progressive dyspnea secondary to COPD and acute on chronic diastolic heart failure as well as Covid 19 pneumonia, POA is documented in the progress notes starting 10/14. For each diagnosis, documentation must be clear to determine if the condition was present at the time of the patients inpatient admission or developed during the hospital stay. Additional clarification regarding the Covid 19 pneumonia is requested. History/Risk Factors: 10/06 H&P: heart failure, COPD, chronic hypoxic respiratory failure on home O2 at 2 L nasal cannula and obstructive sleep apnea on BiPAP support at bedtime, diabetes mellitus type 2 with diabetic neuropathy, chronic diastolic heart failure, valvular heart disease, hypertension, hypothyroidism, GI bleed with anemia. Clinical Indicators: 10/06 H&P: Patient was found to be afebrile, heart rate 71, blood pressure 140/61, pulse ox 100% on oxygen. WBC 14.8, hemoglobin 8.2 which is stable for this patient. Platelet count is 310. Sodium 138, potassium 4.2, chloride 97, CO2 35, BUN 39 and creatinine 1.34 which is also patient's baseline. Blood sugar 207. D-dimer 0.89.Alkaline phosphatase 160.Troponin negative. Pro-BNP 2570. Lactic acid 1.0. Coronavirus PCR not detected. Chronic hypoxic respiratory failure with progressive dyspnea secondary to COPD and acute on chronic diastolic heart failure. Patient started on, metolazone 2.5 mg on Tuesday. 10/10: CTA of the chest was suboptimal study without central pulmonary embolism. Cardiomegaly with mild interstitial and alveolar edema raises concern for heart failure exacerbation. No focal consolidation. She is currently on Lasix 40 mg IV 3 times daily. She continues to have shortness of breath, dyspnea with exertion and lower extremity edema 10/14 IM: Patient noted to have a hacking barking cough. She states it started around 1:00 this morning and has been up all night coughing. She denies having any fever or chills. She denies any nausea or vomiting. A rapid Covid test was ordered which surprisingly came back positive. She has been afebrile, heart rate 91, blood pressure 148/63, pulse ox 94% on 2 L nasal cannula. WBC 9.1, hemoglobin 7.6, platelet count 297.D-dimer 0.83, LDH 669.C-reactive protein 1.6. Sodium 133, potassium 4.6, chloride 90, CO2 34, BUN 49 and creatinine 1.31. She is followed by pulmonary medicine. 10/06 CXR: Consider CHF versus interstitial infiltrate. 10/09 CTA: IMPRESSION: Suboptimal study without central pulmonary embolism. Cardiomegaly with mild interstitial and alveolar edema raises concern for CHF exacerbation. Correlate clinically. No suspicious focal consolidation. 10/14 CXR: IMPRESSION: Redemonstrated diffuse interstitial coarsening may represent pulmonary interstitial edema versus atypical pneumonitis including Covid 19. No significant change versus 10/11/2020. 10/29 CXR: Diffuse infiltrates seen throughout both lung phelps unchanged from prior study. Treatment: IV Tocilizumab 800mg IV x1 on 10/27. Orazinc daily 10/14-10/31. IV Solumedrol 10/08-10/31. IVF's. O2, Bipap ultimately requiring intubation/ventilation on 10/29 Definition of Present on Admission (POA): A diagnosis present at the time the order for admission to inpatient status was written. Please clarify if Covid 19 Pneumonia was POA: [ ] Y = Yes, the condition was present at the time of the order for inpatient admission. [ ] N = No, the condition was not present at the time of the order for inpatient admission. [ ] W = Clinically undetermined if the condition was present at the time of the order for inpatient admission. (Template Last Revised: August 2020) [ ] N = No, the condition was not present at the time of the order for inpatient admission. based on pcr testing x 2 MTDD
== END 2020-10-31 18:00 | disposition expired | DRG 291 ==
LOC: EC 23:49 → 3SCARD 10-06 02:08 → 6PED 10-06 16:01 → 6NMEDSUR 10-15 14:17 → 3SCARD 10-24 15:25 → 2SICU 10-28 11:44
PROVIDERS: ADMIT Family Medicine; ATTEND Family Medicine
DX: I13.0 Hypertensive heart and chronic kidney disease with heart failure and stage 1 through stage 4 chronic kidney disease, or unspecified chronic kidney disease (principal); I50.33 Acute on chronic diastolic (congestive) heart failure; U07.1 COVID-19; A41.89 Other specified sepsis; N17.0 Acute kidney failure with tubular necrosis; J12.82 Pneumonia due to coronavirus disease 2019; J80 Acute respiratory distress syndrome; K72.00 Acute and subacute hepatic failure without coma; R65.21 Severe sepsis with septic shock; Z68.42 Body mass index [BMI] 45.0-49.9, adult; B37.0 Candidal stomatitis; E44.0 Moderate protein-calorie malnutrition; E87.0 Hyperosmolality and hypernatremia; E87.4 Mixed disorder of acid-base balance; F33.9 Major depressive disorder, recurrent, unspecified; J44.0 Chronic obstructive pulmonary disease with (acute) lower respiratory infection; J44.1 Chronic obstructive pulmonary disease with (acute) exacerbation; D62 Acute posthemorrhagic anemia; E11.22 Type 2 diabetes mellitus with diabetic chronic kidney disease; E11.65 Type 2 diabetes mellitus with hyperglycemia; N18.30 Chronic kidney disease, stage 3 unspecified; E27.8 Other specified disorders of adrenal gland; I46.9 Cardiac arrest, cause unspecified; Z79.4 Long term (current) use of insulin; Z66 Do not resuscitate; E83.39 Other disorders of phosphorus metabolism; E11.40 Type 2 diabetes mellitus with diabetic neuropathy, unspecified; D63.1 Anemia in chronic kidney disease; Z99.81 Dependence on supplemental oxygen; T38.0X5A Adverse effect of glucocorticoids and synthetic analogues, initial encounter; K44.9 Diaphragmatic hernia without obstruction or gangrene; T50.2X5A Adverse effect of carbonic-anhydrase inhibitors, benzothiadiazides and other diuretics, initial encounter; Z87.891 Personal history of nicotine dependence; E03.9 Hypothyroidism, unspecified; G25.81 Restless legs syndrome; E66.01 Morbid (severe) obesity due to excess calories; E78.5 Hyperlipidemia, unspecified; E87.5 Hyperkalemia; F06.4 Anxiety disorder due to known physiological condition; G47.33 Obstructive sleep apnea (adult) (pediatric); Z99.89 Dependence on other enabling machines and devices; I25.2 Old myocardial infarction; I35.0 Nonrheumatic aortic (valve) stenosis; I99.8 Other disorder of circulatory system; K57.30 Diverticulosis of large intestine without perforation or abscess without bleeding; K59.00 Constipation, unspecified; K31.819 Angiodysplasia of stomach and duodenum without bleeding; M54.30 Sciatica, unspecified side; R59.0 Localized enlarged lymph nodes; R68.81 Early satiety; Z98.42 Cataract extraction status, left eye; Z98.41 Cataract extraction status, right eye; Z96.1 Presence of intraocular lens; Z79.01 Long term (current) use of anticoagulants; Z79.51 Long term (current) use of inhaled steroids; Z79.52 Long term (current) use of systemic steroids; Z79.890 Hormone replacement therapy; Z79.899 Other long term (current) drug therapy; Z80.6 Family history of leukemia; Z82.49 Family history of ischemic heart disease and other diseases of the circulatory system; Z90.710 Acquired absence of both cervix and uterus; Z90.49 Acquired absence of other specified parts of digestive tract; Z88.8 Allergy status to other drugs, medicaments and biological substances; Z98.890 Other specified postprocedural states; Z87.19 Personal history of other diseases of the digestive system; Z86.010 Personal history of colon polyps
CPT/HCPCS: 36415; 36600; 71045; 71046; 71275; 74176; 76770; 78264; 80048; 80053; 81001; 82140; 82330; 82728; 82805; 82947; 83540; 83550; 83605; 83615; 83690; 83735; 83880; 84100; 84132; 84145; 84478; 84484; 85025; 85027; 85379; 85384; 85610; 85652; 85730; 86140; 86706; 87040; 87340; 87635; 92950; 93005; 94002; 94003; 94640; 94660; 94760